=== PATIENT | male | born 1990 | race Caucasian/White ===

== ENCOUNTER 2023-01-05 16:19 | Emergency (ER) | payer MEDICARE, SELFPAY ==
[2023-01-05 16:30] VITALS: BP 118/78; PULSE 94; RESP 18; TEMP 36.6; O2SAT 95; BMI 21.6
--- NOTE | 2023-01-05 16:38 | ED.ABDPAIN1 ---
HPI - Abdominal Pain General Chief Complaint: Abdominal Pain Stated Complaint: ABDOMINAL PAIN Time Seen by Provider: 01/05/23 16:37 Source: patient Mode of arrival: Wheelchair Limitations: no limitations History of Present Illness HPI narrative: Patient presents to emergency department complaining of abdominal pain. Patient states pain is epigastric left upper quadrant and he has a lot of nausea. She is not able to keep anything down. He denies any chest pain, shortness of breath. He states he had a cough which is nonproductive. The vomiting is not posttussive. Patient states he has had issues like this before but he has not seen a programmer analyst consultant recently. Patient denies any diarrhea, constipation. He denies any hematemesis, melena, hematochezia. He denies any fall or trauma. Denies any hematuria, dysuria. Has not taking anything at home. He denies any fever, chills, sore throat.She states she's had pancreatitis in the past. He's also had an esophageal surgery when he was a child. Related Data Previous Rx's Medication Instructions Recorded sucralfate 1 gram tablet (Carafate) 1 g PO TID #30 tabs 01/05/23 Allergies Allergy/AdvReac Type Severity Reaction Status Date / Time Penicillins Allergy Intermediate Verified 01/05/23 16:33 Review of Systems ROS Status of ROS 10 or more systems reviewed and unremarkable except as noted in history and below [facility] Social History Smoking status: Light tobacco smoker Exam Narrative Exam Narrative: Nurses notes and vital signs reviewed and patient is not hypoxic. General: Nontoxic,Slim, Well-appearing and in no apparent distress. Skin: Warm, dry, no pallor noted. No Rash Head: Normocephalic, atraumatic. Neck: Supple, non-tender. Eye: Pupils are equal, round and EOMI. No scleral icterus. Ears, Nose, Mouth, and Throat: TM clear, no posterior oropharynx erythema or nasal mucosal hypertrophy, uvula is mid-line Oral mucosa is dry Cardiovascular: Regular Rate and Rhythm without murmur, gallop or rub. Respiratory: No accessory muscle use or respiratory distress. Lungs are clear to auscultation, no wheezing, rales or rhonchi Chest Wall: no tenderness Back: No midline thoracic or lumbar vertebral tenderness. No CVA tenderness Musculoskeletal: normal ROM, no calf or popliteal tenderness, no lower extremity edema/swelling GI: Abdomen is soft, non-distended. Normal bowel sounds. No masses appreciated. No tenderness to palpation. No rebound, guarding, or rigidity noted. Neurological: A&O x4. No cranial nerve dysfunction observed. No truncal ataxia. Moves all extremities. Sensation intact. Psychiatric: Cooperative and interactive. Normal mood and affect. Constitutional Vital Signs, click to edit/add: Last Vital Signs Temp 98.1 F 01/05/23 19:09 Pulse 73 01/05/23 19:09 Resp 16 01/05/23 19:09 BP 120/76 01/05/23 19:09 Pulse Ox 95 01/05/23 19:09 O2 Del Method Room Air 01/05/23 19:09 Course Vital Signs Vital signs: Vital Signs Temperature 97.8 F 01/05/23 16:30 Pulse Rate 94 H 01/05/23 16:30 Respiratory Rate 18 01/05/23 16:30 Blood Pressure 118/78 01/05/23 16:30 Pulse Oximetry 95 01/05/23 16:30 Oxygen Delivery Method Room Air 01/05/23 16:30 Temperature 98.1 F 01/05/23 19:09 Pulse Rate 73 01/05/23 19:09 Respiratory Rate 16 01/05/23 19:09 Blood Pressure 120/76 01/05/23 19:09 Pulse Oximetry 95 01/05/23 19:09 Oxygen Delivery Method Room Air 01/05/23 19:09 MDM - Abdominal Pain MDM Narrative Medical decision making narrative: Patient had an IV established labs and radiologic studies were done. Patient was given morphine 4 mg IV, Zofran 4 mg IV, 1 L normal saline all which helped his symptoms. THE results were discussed with patient. Patient was given sucralfate. Patient is advised he needs follow-up with programmer analyst consultant. At this time the patient is without objective evidence of an acute process requiring hospitalization or inpatient management. The patient has remained hemodynamically stable. No additional indication for emergent studies at this time. I answered all questions. Discussed discharge instructions including standard anticipatory guidance and what should prompt a return to the emergency department, including if they get worse are not getting better or develops any new or concerning symptoms. I've given them specific time frame in which to follow-up, and who to follow-up with. The patient demonstrates understanding. Patient is nontoxic and stable for discharge with outpatient follow-up. This note was created with the assistance of a speech recognition program. Although the intention is to generate documents that actually reflects the content of the visit, no guarantees can be provided that every mistake has been identified and corrected by editing. Differential Diagnosis Differential diagnosis: Likely abdominal pain, gastroenteritis, pancreatitis and small bowel obstruction Lab Data Labs: Lab Results 01/05/23 01/05/23 Range/Units 17:45 17:50 WBC 9.3 (4.0-11.0) 10^3/uL RBC 5.75 (4.70-6.10) 10^6/uL Hgb 17.1 (14.0-18.0) g/dL Hct 50.5 (42.0-54.0) % MCV 87.8 (80.0-94.0) fL MCH 29.7 (25.9-34.0) pg MCHC 33.9 (29.9-35.2) g/dL RDW 12.2 (11.0-15.0) % Plt Count 293 (150-450) 10^3/uL MPV 11.2 (9.5-13.5) fL Neut % (Auto) 71.7 (43.0-75.0) % Lymph % (Auto) 17.2 L (20.5-60.0) % Clinch % (Auto) 8.7 (1.7-12.0) % Eos % (Auto) 0.9 (0.9-7.0) % Baso % (Auto) 1.2 (0.2-2.0) % Neut # (Auto) 6.7 H (1.4-6.5) 10^3/uL Lymph # (Auto) 1.6 (1.2-3.8) 10^3/uL Clinch # (Auto) 0.8 (0.3-0.8) 10^3/uL Eos # (Auto) 0.1 (0.0-0.7) 10^3/uL Baso # (Auto) 0.1 (0.0-0.1) 10^3/uL Abs Immat Gran (auto) 0.03 (0.00-0.03) 10^3/uL Imm/Tot Granulo (auto) 0.3 (0.0-0.5) % Sodium 139 (136-145) mmol/L Potassium 3.6 (3.5-5.1) mmol/L Chloride 102 (98-107) mmol/L Carbon Dioxide 27.5 (21.0-32.0) mmol/L Anion Gap 13.1 BUN 10.0 (7.0-18.0) mg/dL Creatinine 0.82 (0.70-1.30) mg/dL Est GFR ( Amer) >60 (>=60) Est GFR (Non-Af Amer) >60 (>=60) BUN/Creatinine Ratio 12.2 Glucose 99 (74-106) mg/dL Lactate 0.8 (0.4-2.0) mmol/L Calcium 8.9 (8.5-10.1) mg/dL Total Bilirubin 0.6 (0.2-1.0) mg/dL AST 15 (15-37) U/L ALT 12 L (16-63) U/L Alkaline Phosphatase 111 (46-116) U/L Total Protein 7.7 (6.4-8.2) g/dL Albumin 4.3 (3.4-5.0) g/dL Globulin 3.4 g/dL Albumin/Globulin Ratio 1.3 Lipase 88.0 (73.0-393.0) U/L Urine Color Lt. yellow (YELLOW) Urine Clarity Clear (CLEAR) Urine pH 8.5 (5.0-9.0) Ur Specific [place] 1.020 (1.005-1.025) Urine Protein Negative (NEG/TRACE) mg/dL Urine Glucose (UA) Negative (NEGATIVE) mg/dL Urine Ketones Negative (NEGATIVE) mg/dL Urine Occult Blood Negative (NEGATIVE) Urine Nitrite Negative (NEGATIVE) Urine Bilirubin Negative (NEGATIVE) Urine Urobilinogen 0.2 (0.2-1.0) EU/dL Ur Leukocyte Esterase Negative (NEGATIVE) Discharge Plan Discharge Chief Complaint: Abdominal Pain Clinical Impression: Abdominal pain Patient Disposition: Home, Self-Care Time of Disposition Decision: 18:36 Condition: Good Mode of Transportation: Private Vehicle Prescriptions / Home Meds: New sucralfate [Carafate] 1 gram tablet 1 g PO TID Qty: 30 0RF Instructions: Abdominal Pain (ED) Stand Alone Forms: Portal Instructions Referrals: DI GUTHRIE [Primary Care Provider] - 1 week Discharge Date/Time: 01/05/23 19:12
--- NOTE | 2023-01-05 17:12 | XR_ITS ---
[facility] [place] [id number] Patient Name: FRANCIS GALVEZ MRN: [id number] date: 1990 Sex: M Assigned Patient Location: ER Current Patient Location: ER Accession/Order Number: [id number] Exam Date: 01/05/2023 17:28 Report Date: 01/05/2023 18:01 At the request of: CALI HASSAN Procedure: XR acute abdomen series EXAM: XR acute abdomen series HISTORY: Abdominal pain and nausea COMPARISON: Chest x-ray 02/28/2022 TECHNIQUE: AP chest and 2 views of the abdomen. FINDINGS: IMPRESSION: Enlarged small left pleural effusion. Again demonstrated is the mass emanating from the right hilum. Chronic changes throughout the lung parenchyma. Right lower hemithorax calcified pulmonary granuloma the heart is not enlarged. No pneumothorax. The bowel gas pattern is nonobstructed. No free intraperitoneal air or visualized intra-abdominal calcification. Stool burden is unremarkable. Stool within the rectum. No gross acute osseous abnormality. Electronically authenticated by: NEMO CADENA Date: 01/05/2023 18:01
[2023-01-05 18:05] LABS: Basophils Absolute Auto 0.1 10^3/uL (0.0-0.1); Basophils Percent Auto 1.2 % (0.2-2.0); Eosinophils Absolute Auto 0.1 10^3/uL (0.0-0.7); Eosinophils Percent Auto 0.9 % (0.9-7.0); Hematocrit 50.5 % (42.0-54.0); Hemoglobin 17.1 g/dL (14.0-18.0); Immature Granulocytes Abs Auto 0.03 10^3/uL (0.00-0.03); Immature Granulocytes Pct Auto 0.3 % (0.0-0.5); Lymphocytes Absolute Auto 1.6 10^3/uL (1.2-3.8); Lymphocytes Percent Auto 17.2 % (20.5-60.0); Mean Corpuscular HGB Conc 33.9 g/dL (29.9-35.2); Mean Corpuscular Hemoglobin 29.7 pg (25.9-34.0); Mean Corpuscular Volume 87.8 fL (80.0-94.0); Mean Platelet Volume 11.2 fL (9.5-13.5); Monocytes Absolute Auto 0.8 10^3/uL (0.3-0.8); Monocytes Percent Auto 8.7 % (1.7-12.0); Neutrophils Absolute Auto 6.7 10^3/uL (1.4-6.5); Neutrophils Percent Auto 71.7 % (43.0-75.0); Platelet Count 293 10^3/uL (150-450); Red Blood Count 5.75 10^6/uL (4.70-6.10); Red Cell Distribution Width 12.2 % (11.0-15.0); White Blood Count 9.3 10^3/uL (4.0-11.0)
[2023-01-05 18:11] LABS: Bilirubin Urine NEGATIVE (NEGATIVE); Blood Urine NEGATIVE (NEGATIVE); Clarity Urine CLEAR (CLEAR); Color Urine LT. YELLOW (YELLOW); Glucose Urine UA NEGATIVE (NEGATIVE); Ketones Urine NEGATIVE (NEGATIVE); Leukocyte Esterase Urine NEGATIVE (NEGATIVE); Nitrite Urine NEGATIVE (NEGATIVE); Protein Urine NEGATIVE (NEG/TRACE); Urobilinogen Urine 0.2 EU/dL (0.2-1.0); pH Urine 8.5 (5.0-9.0)
[2023-01-05 18:12] LABS: Urine Microscopic Indicated NO
[2023-01-05] MEDS: 0.9 % SODIUM CHLORIDE 1,000 ML 999 ML IV (18:12)
[2023-01-05] MEDS: MORPHINE SULFATE 2 MG/ML SYRINGE 4 MG IV (18:13)
[2023-01-05] MEDS: ONDANSETRON PF 4 MG/2 ML VIAL IV (18:13)
[2023-01-05 18:15] LABS: Alanine Aminotransferase 12 U/L (16-63); Albumin Globulin Ratio 1.3; Albumin Level 4.3 g/dL (3.4-5.0); Alkaline Phosphatase 111 U/L (46-116); Anion Gap 13.1; Aspartate Amino Transferase 15 U/L (15-37); BUN Creatinine Ratio 12.2; Bilirubin Total 0.6 mg/dL (0.2-1.0); Calcium 8.9 mg/dL (8.5-10.1); Carbon Dioxide 27.5 mmol/L (21.0-32.0); Chloride 102 mmol/L (98-107); Estimated GFR (African America >60 (>=60); Estimated GFR (Non-African Ame >60 (>=60); Globulin 3.4 g/dL; Glucose 99 mg/dL (74-106); Potassium 3.6 mmol/L (3.5-5.1); Sodium 139 mmol/L (136-145); Total Protein 7.7 g/dL (6.4-8.2)
[2023-01-05 18:18] LABS: Lactate/Lactic Acid 0.8 mmol/L (0.4-2.0)
[2023-01-05] MEDS: SUCRALFATE 1 GM TABLET PO (18:29)
[2023-01-05 19:00] VITALS: BP 120/76; PULSE 73; RESP 14; O2SAT 95
[2023-01-05 19:09] VITALS: BP 120/76; PULSE 73; RESP 16; TEMP 36.7; O2SAT 95
== END 2023-01-05 19:12 | disposition home or self-care (01) ==
PROVIDERS: Emergency Provider Emergency Medicine; PCP Nurse Practitioner
DX: R10.9 Unspecified abdominal pain (principal); F17.210 Nicotine dependence, cigarettes, uncomplicated
CPT/HCPCS: 36415; 74022; 80053; 81003; 83605; 83690; 85025; 96374; 96375; 99284

== ENCOUNTER 2023-01-12 10:32 | Observation (INO) | payer MEDICARE, SELFPAY ==
[2023-01-12] VITALS (10 sets, daily range): BP systolic 99–106; BP diastolic 58–61; PULSE 64–94; RESP 18–20; TEMP 36.5–37.3; O2SAT 88–99; BMI 23.0; BMI 21.4
--- NOTE | 2023-01-12 10:53 | ED.ABDPAIN1 ---
HPI - Abdominal Pain General Chief Complaint: Abdominal Pain Stated Complaint: BODY ACHES AND VOMITING HOT Time Seen by Provider: 01/12/23 10:51 Source: patient Mode of arrival: walk-in History of Present Illness HPI narrative: this patient's here for worsening abdominal pain. He was here approximately two weeks ago for similar condition. He is under the care of a stroke belt sander operator but they can't see him until February. 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 He gets occasional upper endoscopies. He has not been told that he had ulcers or gastrointestinal bleeding. His bowel movements are not bloody or black. He is on Protonix on a daily basis and has not run out of his meds. He is not running a fever. He's not had a history of pancreatitis. He's not had any more recent surgeries cents he was an . He states he does not use any alcohol and is not had narcotic dependence. No previous history of biliary disease. Related Data Allergies Allergy/AdvReac Type Severity Reaction Status Date / Time Penicillins Allergy Intermediate Verified 01/12/23 10:42 [facility] Social History Smoking status: Light tobacco smoker Exam Narrative Exam Narrative: patient seen shortly after arrival. He does appear to be uncomfortable lying on his side. He is afebrile. Pulse is ninety-four blood pressure 103/58. HEENT shows no focus of infection. There is no conjunctivitis no obvious trauma or injury. Chest shows no retractions no grunting no labored respiratory labored respirations are not noted. Abdomen shows increased tympany to percussion in the left mid abdomen. There is mild tenderness to palpation but no rebound or rigidity. He has had his appendix previously removed. No hepatomegaly is appreciated. Extremities are unremarkable. Neurological cognition and mentation are normal. Appears to be uncomfortable Constitutional Vital Signs, click to edit/add: Last Vital Signs Temp 99.2 F 01/12/23 10:36 Pulse 94 H 01/12/23 10:36 Resp 20 01/12/23 10:36 BP 103/58 01/12/23 10:36 Pulse Ox 94 L 01/12/23 10:46 O2 Del Method Room Air 01/12/23 10:46 Course Vital Signs Vital signs: Vital Signs Temperature 99.2 F 01/12/23 10:36 Pulse Rate 94 H 01/12/23 10:36 Respiratory Rate 20 01/12/23 10:36 Blood Pressure 103/58 01/12/23 10:36 Pulse Oximetry 94 L 01/12/23 10:36 Oxygen Delivery Method Room Air 01/12/23 10:36 Temperature 99.2 F 01/12/23 10:36 Pulse Rate 94 H 01/12/23 10:36 Respiratory Rate 20 01/12/23 10:36 Blood Pressure 103/58 01/12/23 10:36 Pulse Oximetry 94 L 01/12/23 10:46 Oxygen Delivery Method Room Air 01/12/23 10:46 MDM - Abdominal Pain MDM Narrative Medical decision making narrative: this patient's laboratory testing shows substantial and markedly increase in his white blood cell count with left shift from his evaluation here one week ago. However CT scan with IV contrast does not show any acute emergent problem. Patient's lipase is also normal. Potassium slightly low at 3.4. He requested a 2nd dose of pain medication. Do not have evidence of a surgical problem but with this patient's past surgical history and his white blood cell count elevation I thought it would be prudent to observe him and consider further diagnostic testing's. I spoke with our hospitalist who agreed with that assessment. The laboratory testing and CT were all discussed in detail Lab Data Labs: Lab Results 01/12/23 Range/Units 11:01 WBC 17.8 H (4.0-11.0) 10^3/uL RBC 5.45 (4.70-6.10) 10^6/uL Hgb 16.3 (14.0-18.0) g/dL Hct 47.3 (42.0-54.0) % MCV 86.8 (80.0-94.0) fL MCH 29.9 (25.9-34.0) pg MCHC 34.5 (29.9-35.2) g/dL RDW 12.2 (11.0-15.0) % Plt Count 293 (150-450) 10^3/uL MPV 11.5 (9.5-13.5) fL Neut % (Auto) 82.0 H (43.0-75.0) % Lymph % (Auto) 7.6 L (20.5-60.0) % [place] % (Auto) 8.9 (1.7-12.0) % Eos % (Auto) 0.5 L (0.9-7.0) % Baso % (Auto) 0.6 (0.2-2.0) % Neut # (Auto) 14.6 H (1.4-6.5) 10^3/uL Lymph # (Auto) 1.4 (1.2-3.8) 10^3/uL [place] # (Auto) 1.6 H (0.3-0.8) 10^3/uL Eos # (Auto) 0.1 (0.0-0.7) 10^3/uL Baso # (Auto) 0.1 (0.0-0.1) 10^3/uL Abs Immat Gran (auto) 0.08 H (0.00-0.03) 10^3/uL Imm/Tot Granulo (auto) 0.4 (0.0-0.5) % Sodium 132 L (136-145) mmol/L Potassium 3.4 L (3.5-5.1) mmol/L Chloride 98 (98-107) mmol/L Carbon Dioxide 28.6 (21.0-32.0) mmol/L Anion Gap 8.8 BUN 8.0 (7.0-18.0) mg/dL Creatinine 0.91 (0.70-1.30) mg/dL Est GFR ( Amer) >60 (>=60) Est GFR (Non-Af Amer) >60 (>=60) BUN/Creatinine Ratio 8.8 Glucose 113 H (74-106) mg/dL Calcium 8.7 (8.5-10.1) mg/dL Total Bilirubin 0.8 (0.2-1.0) mg/dL AST 15 (15-37) U/L ALT 17 (16-63) U/L Alkaline Phosphatase 119 H (46-116) U/L Total Protein 7.8 (6.4-8.2) g/dL Albumin 4.0 (3.4-5.0) g/dL Globulin 3.8 g/dL Albumin/Globulin Ratio 1.1 Lipase 48.0 L (73.0-393.0) U/L Discharge Plan Discharge Chief Complaint: Abdominal Pain Clinical Impression: Abdominal pain, acute Patient Disposition: Admitted as Observation Time of Disposition Decision: 13:21 Condition: Fair Referrals: DI GUTHRIE [Primary Care Provider] - 1 week
[2023-01-12] MEDS: 0.9 % SODIUM CHLORIDE 1,000 ML 999 ML IV (11:06)
[2023-01-12] MEDS: HYDROMORPHONE HCL 1 MG/ML CARTRIDGE IVP ×2 (11:07→13:22)
[2023-01-12] MEDS: ONDANSETRON PF 4 MG/2 ML VIAL IV (11:07)
[2023-01-12 11:38] LABS: Basophils Absolute Auto 0.1 10^3/uL (0.0-0.1); Basophils Percent Auto 0.6 % (0.2-2.0); Eosinophils Absolute Auto 0.1 10^3/uL (0.0-0.7); Eosinophils Percent Auto 0.5 % (0.9-7.0); Hematocrit 47.3 % (42.0-54.0); Hemoglobin 16.3 g/dL (14.0-18.0); Immature Granulocytes Abs Auto 0.08 10^3/uL (0.00-0.03); Immature Granulocytes Pct Auto 0.4 % (0.0-0.5); Lymphocytes Absolute Auto 1.4 10^3/uL (1.2-3.8); Lymphocytes Percent Auto 7.6 % (20.5-60.0); Mean Corpuscular HGB Conc 34.5 g/dL (29.9-35.2); Mean Corpuscular Hemoglobin 29.9 pg (25.9-34.0); Mean Corpuscular Volume 86.8 fL (80.0-94.0); Mean Platelet Volume 11.5 fL (9.5-13.5); Monocytes Absolute Auto 1.6 10^3/uL (0.3-0.8); Monocytes Percent Auto 8.9 % (1.7-12.0); Neutrophils Absolute Auto 14.6 10^3/uL (1.4-6.5); Platelet Count 293 10^3/uL (150-450); Red Blood Count 5.45 10^6/uL (4.70-6.10); Red Cell Distribution Width 12.2 % (11.0-15.0); White Blood Count 17.8 10^3/uL (4.0-11.0)
[2023-01-12 11:54] LABS: Alanine Aminotransferase 17 U/L (16-63); Albumin Globulin Ratio 1.1; Alkaline Phosphatase 119 U/L (46-116); Anion Gap 8.8; Aspartate Amino Transferase 15 U/L (15-37); BUN Creatinine Ratio 8.8; Bilirubin Total 0.8 mg/dL (0.2-1.0); Calcium 8.7 mg/dL (8.5-10.1); Carbon Dioxide 28.6 mmol/L (21.0-32.0); Chloride 98 mmol/L (98-107); Estimated GFR (African America >60 (>=60); Estimated GFR (Non-African Ame >60 (>=60); Globulin 3.8 g/dL; Glucose 113 mg/dL (74-106); Potassium 3.4 mmol/L (3.5-5.1); Sodium 132 mmol/L (136-145); Total Protein 7.8 g/dL (6.4-8.2)
--- NOTE | 2023-01-12 12:05 | CT_ITS ---
The [address] [address] Patient Name: FRANCIS GALVEZ MRN: [id number] date: 1990 Sex: M Assigned Patient Location: ER Current Patient Location: ER Accession/Order Number: [id number] Exam Date: 01/12/2023 11:53 Report Date: 01/12/2023 12:45 At the request of: RUSTY MARSH Procedure: CT abdomen pelvis w con EXAM: CT abdomen pelvis w con HISTORY: pain abdominal pain COMPARISON: CT abdomen and pelvis 11/25/2018. TECHNIQUE: Following intravenous administration of 100 mL of Omnipaque 350, axial soft tissue windows of the abdomen and pelvis were performed with coronal and sagittal reformats. CT dose reduction technique was used including Automated Exposure Control. Findings: Redemonstrated is bilateral lower lobe bronchiectasis. There is partial opacification of the right lower lobe segmental and subsegmental airways likely relating to mucous. In the left lower lobe there is scarring adjacent to the bronchiectasis. ABDOMEN: The liver, gallbladder, spleen, pancreas, adrenal glands and kidneys are unremarkable. The bilateral ureters are nondilated. Evaluation of the bowel is limited given the absence of oral contrast. No bowel obstruction. The appendix is surgically absent. The aorta is normal caliber. No enlarged abdominal lymph nodes or free abdominal fluid. Pelvis: Unremarkable bladder. No enlarged pelvic lymph nodes or free pelvic fluid. No aggressive sclerotic or lytic osseous lesions. CT/CT abdomen pelvis w con IMPRESSION: 1. No acute abdominal or pelvic abnormality. 2. Other nonemergent findings, as described above. Electronically authenticated by: JOSHUA AARON Date: 01/12/2023 12:45
[2023-01-12] MEDS: MORPHINE SULFATE 2 MG/ML SYRINGE IV ×2 (16:28→20:43)
[2023-01-12] MEDS: PANTOPRAZOLE SODIUM 40 MG VIAL IV (16:28)
[2023-01-12] MEDS: METOCLOPRAMIDE HCL 10 MG TABLET PO ×2 (16:28→21:15)
[2023-01-12] MEDS: ALBUTEROL SULFATE 2.5 MG/3 ML VIAL NEB IH ×2 (19:12→22:20)
[2023-01-13] VITALS (7 sets, daily range): BP systolic 97; BP diastolic 56; PULSE 71–92; RESP 16–20; TEMP 36.8; O2SAT 92–98
[2023-01-13] MEDS: MORPHINE SULFATE 2 MG/ML SYRINGE IV ×2 (00:59→08:52)
[2023-01-13] MEDS: ALBUTEROL SULFATE 2.5 MG/3 ML VIAL NEB IH ×3 (03:48→11:21)
[2023-01-13 05:03] LABS: Basophils Absolute Auto 0.1 10^3/uL (0.0-0.1); Basophils Percent Auto 1.1 % (0.2-2.0); Eosinophils Absolute Auto 0.2 10^3/uL (0.0-0.7); Eosinophils Percent Auto 2.2 % (0.9-7.0); Hematocrit 40.2 % (42.0-54.0); Hemoglobin 13.6 g/dL (14.0-18.0); Immature Granulocytes Abs Auto 0.03 10^3/uL (0.00-0.03); Immature Granulocytes Pct Auto 0.4 % (0.0-0.5); Lymphocytes Absolute Auto 1.9 10^3/uL (1.2-3.8); Lymphocytes Percent Auto 24.7 % (20.5-60.0); Mean Corpuscular HGB Conc 33.8 g/dL (29.9-35.2); Mean Corpuscular Hemoglobin 30.2 pg (25.9-34.0); Mean Corpuscular Volume 89.3 fL (80.0-94.0); Mean Platelet Volume 11.7 fL (9.5-13.5); Monocytes Absolute Auto 0.8 10^3/uL (0.3-0.8); Monocytes Percent Auto 9.9 % (1.7-12.0); Neutrophils Absolute Auto 4.7 10^3/uL (1.4-6.5); Neutrophils Percent Auto 61.7 % (43.0-75.0); Platelet Count 225 10^3/uL (150-450); Red Cell Distribution Width 12.1 % (11.0-15.0); White Blood Count 7.6 10^3/uL (4.0-11.0)
[2023-01-13 05:16] LABS: Alanine Aminotransferase 14 U/L (16-63); Albumin Globulin Ratio 1.1; Albumin Level 3.3 g/dL (3.4-5.0); Alkaline Phosphatase 95 U/L (46-116); Anion Gap 9.2; Aspartate Amino Transferase 10 U/L (15-37); Bilirubin Total 0.4 mg/dL (0.2-1.0); Calcium 8.1 mg/dL (8.5-10.1); Carbon Dioxide 30.9 mmol/L (21.0-32.0); Chloride 100 mmol/L (98-107); Estimated GFR (African America >60 (>=60); Estimated GFR (Non-African Ame >60 (>=60); Globulin 3.1 g/dL; Glucose 132 mg/dL (74-106); Potassium 3.1 mmol/L (3.5-5.1); Sodium 137 mmol/L (136-145); Total Protein 6.4 g/dL (6.4-8.2)
[2023-01-13] MEDS: ACETAMINOPHEN 325 MG TABLET 650 MG PO (07:55)
[2023-01-13] MEDS: METOCLOPRAMIDE HCL 10 MG TABLET PO ×2 (07:56→11:13)
--- NOTE | 2023-01-13 08:16 | PC.NURSE ---
On SPO2 monitor, 91%.
[2023-01-13] MEDS: PANTOPRAZOLE SODIUM 40 MG VIAL IV (08:52)
--- NOTE | 2023-01-13 15:37 | P.HP_ITS ---
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 No association with food. He had an ED visit for similar complaints and was discharged after w/u did not reveal anything significant. Last night, his w/u included CT abd/pelvis that once again did not reveal any sig intra abdominal pathology but this time he was noted to have leukocytosis. Patient was admitted for obse rvation for pain control, clinical monitoring. His leukyctosis resolved. He tolerated PO diet in the morning. He continues to have Left sided pain but it has eased off some. He told me he was following GI and was told he had sig scar formation from prior surgery and needed gastroesophageal dilatation via endoscopy as he sometimes experiences dysphagia too but he did not follow up as recommended. Admission Diagnosis Unspecified abdominal pain Nausea/vomiting Leukocytosis Discharge diagnosis as above Discharge status stable Review of Systems ROS Status of ROS 10 or more systems reviewed and unremarkable except as noted in history and below PFSH PFS Medical History Surgical History Family History Mother Family history of diabetes mellitus Family history of hypertension Grandmother Family history of diabetes mellitus Grandfather Family history of myocardial infarction Social History Within the past year, how often did you have a drink containing alcohol: 2-4 times a month Within the past year, how many standard drinks containing alcohol did you have on a typical day: 1 or 2 Within the past year, how often did you have six or more drinks on one occasion: weekly Total score: 3 Score interpretation: A score of 4 or more indicates drinking is likely to affect patient's safety. 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 Known occupational exposures/hazards: No Highest level of school completed/degree received: some college, no degree Are you now , , , , never or living with a partner: In a typical week, how many times do you talk on the telephone with family, friends, or neighbors: 3 or more times per week How often do you get together with friends or relatives: once per week How often do you attend mu-ism or restorationist services: never Do you belong to any clubs or organizations such as mu-ism groups unions, [employer] or athletic groups, or school groups: no Total score: 1 Score interpretation: A score of less than or equal to 1 indicates the most socially isolated. Little interest or pleasure in doing things: not at all Feeling down, depressed, or hopeless: not at all Feel stressed/tense/nervous/anxious/difficulty sleeping: not at all Do you think of yourself as: straight/heterosexual Gender Identity: male Meds Home Medications and Allergies Home Medications Medication Instructions Recorded Confirmed Type albuterol sulfate 2.5 mg/3 mL 2.5 mg inhalation QID 01/12/23 01/12/23 History (0.083 %) solution for nebulization albuterol sulfate 90 mcg/actuation 2 puff inhalation Q6H PRN 01/12/23 01/12/23 History aerosol inhaler shortness of breath or wheezing pantoprazole 20 mg tablet,delayed 40 mg PO BID 01/12/23 01/12/23 History release (Protonix) Allergies Allergy/AdvReac Type Severity Reaction Status Date / Time Penicillins Allergy Intermediate Verified 01/12/23 10:42 Exam Constitutional Vital Signs, click to edit/add: Last Vital Signs Temp 98.3 F 01/13/23 06:00 Pulse 88 01/13/23 11:21 Resp 20 01/13/23 06:00 BP 97/56 01/13/23 06:00 Pulse Ox 94 L 01/13/23 11:37 O2 Del Method Nasal Cannula 01/13/23 11:37 O2 Flow Rate 3 01/13/23 11:37 Documenting provider has reviewed patient's vital signs: yes Common normals: no apparent distress and oriented x3 General appearance: cooperative HENMT Common normals: normocephalic and head/scalp atraumatic Head and scalp: normocephalic and atraumatic Eye Common normals: conjunctivae normal and no scleral icterus Conjunctiva: conjunctiva(e) normal Respiratory Common normals: normal respiratory effort and clear to auscultation bilaterally Effort & inspection: able to speak in complete sentences Auscultation: clear to auscultation bilaterally Cardio Common normals: regular rate, S1 normal heart sound and S2 normal heart sound Rate: regular rate Heart sounds: S1 normal and S2 normal GI Common normals: no hepatosplenomegaly Inspection: scar (vertical scar towards left side of abdomen) Palpation: soft, tender Details: LLQ and LUQ and no hepatosplenomegaly Extremity Common normals: no clubbing, cyanosis or edema Neuro Common normals: oriented x3, moves all extremities and no focal motor deficits Psych Common normals: mental status grossly normal, denies hallucinations, denies homicidal ideation and denies suicidal ideation Results Labs Labs: Short CBC 01/13/23 Range/Units 04:12 WBC 7.6 (4.0-11.0) 10^3/uL Hgb 13.6 L (14.0-18.0) g/dL Hct 40.2 L (42.0-54.0) % Plt Count 225 (150-450) 10^3/uL BMP 01/13/23 04:12 Sodium 137 Potassium 3.1 L Chloride 100 Carbon Dioxide 30.9 BUN 8.0 Creatinine 0.80 Glucose 132 H Calcium 8.1 L Liver Function 01/13/23 Range/Units 04:12 Total Bilirubin 0.4 (0.2-1.0) mg/dL AST 10 L (15-37) U/L ALT 14 L (16-63) U/L Alkaline Phosphatase 95 (46-116) U/L Albumin 3.3 L (3.4-5.0) g/dL Assessment and Plan Assessment and Plan (1) Abdominal pain: (2) Leukocytosis: Plan Left sided abdominal pain of uncertain etiology. Suspect dysmotility from previous surgery/scar formation. Leukocytosis likely reactive and resolved. No acute intracranial pathology on CT. Pain,nausea improved. F/u with GI and PCP. Educated on worrisome signs and symptoms that should prompt him to seek care.
--- NOTE | 2023-01-17 13:55 | CM.DCFOLLOWU ---
Person spoke with: Luis How are you feeling? Still having abdominal pain How is your pain? It is better but still having some pain. I'm scheduled to see GI doctor next month Did you understand your discharge instructions? Yes Do you have any questions about your discharge instructions? No Were you given any prescriptions at discharge? Yes Were you able to get your prescriptions filled? Yes Do you understand how to take your medications as ordered? Yes Do you have any questions about your follow up appointment and do you plan to keep your follow up appointment? Appt scheduled and plan on going Is there anything else that you would like to discuss? Questions/Comments/Concerns/Other:
== END 2023-01-13 13:19 | disposition home or self-care (01) ==
LOC: ER 13:21 → MS 13:59
PROVIDERS: Admitting Provider Internal Medicine; Emergency Provider Emergency Medicine Emergency Medical Services; PCP Nurse Practitioner; Visit Provider Internal Medicine
DX: R10.9 Unspecified abdominal pain (principal); R11.2 Nausea with vomiting, unspecified; D72.829 Elevated white blood cell count, unspecified; F17.220 Nicotine dependence, chewing tobacco, uncomplicated
CPT/HCPCS: 36415; 74177; 80053; 83690; 85025; 94640; 94761; 96374; 96375; 96376; 99285; G0378; J1170; Q9967

== ENCOUNTER 2023-02-06 22:08 | Emergency (ER) | payer MEDICARE, MEDICAID, SELFPAY ==
[2023-02-06 22:16] VITALS: BP 124/74; PULSE 66; RESP 18; TEMP 36.8; O2SAT 97; BMI 21.8
--- NOTE | 2023-02-06 22:28 | XR_ITS ---
[address] [address] Patient Name: FRANCIS GALVEZ MRN: [id number] date: 1990 Sex: M Assigned Patient Location: ER Current Patient Location: ER Accession/Order Number: [id number] Exam Date: 02/06/2023 22:34 Report Date: 02/06/2023 22:53 At the request of: VIKTORIYA GOLDSMITH Procedure: XR chest 1V EXAMINATION: XR chest 1V, , 02/06/2023 10:34 PM EDT INDICATION: shortness of breath HISTORY: Ordering Provider Reason for Exam: shortness of breath Technologist Note: Additional: COMPARISON: Chest x-ray CT angiogram of the chest dated 02/28/2022. TECHNIQUE: Chest x-ray: One view. FINDINGS: Abnormal mass/consolidation is seen in the perihilar and infrahilar right lung, which appears increased in size since prior examination. A follow-up chest CT may be of value for further evaluation. Additionally, increased markings are seen in the retrocardiac left lower lobe, which may represent additional mass versus consolidation. Mild peribronchial thickening is seen in the bilateral lower lobes, suggestive of bronchitic changes. A tiny left pleural effusion may be seen. No obvious pneumothorax is seen. Heart is normal in size. Bony thorax is unremarkable. XR/XR chest 1V IMPRESSION: Abnormal mass/consolidation is seen in the perihilar and infrahilar right lung, which appears increased in size since prior examination. A follow-up chest CT may be of value for further evaluation. Additionally, increased markings are seen in the retrocardiac left lower lobe, which may represent additional mass versus consolidation. Mild peribronchial thickening is seen in the bilateral lower lobes, suggestive of bronchitic changes. A tiny left pleural effusion may be seen. Electronically authenticated by: MARELY MENDOSA Date: 02/06/2023 22:53
[2023-02-06 22:33] LABS: Adenovirus NOT DETECTED (NOT DETECTE); Bordetella parapertussis NOT DETECTED (NOT DETECTE); Coronavirus 229E NOT DETECTED (NOT DETECTE); Coronavirus HKU1 NOT DETECTED (NOT DETECTE); Coronavirus NL63 NOT DETECTED (NOT DETECTE); Coronavirus OC43 NOT DETECTED (NOT DETECTE); Human Metapneumovirus NOT DETECTED (NOT DETECTE); Influenza A NOT DETECTED (NOT DETECTE); Influenza B NOT DETECTED (NOT DETECTE); Mycoplasma pneumoniae NOT DETECTED (NOT DETECTE); Parainfluenza Virus 1 NOT DETECTED (NOT DETECTE); Parainfluenza Virus 2 NOT DETECTED (NOT DETECTE); Parainfluenza Virus 3 NOT DETECTED (NOT DETECTE); Parainfluenza Virus 4 NOT DETECTED (NOT DETECTE); Respiratory Syncytial Virus NOT DETECTED (NOT DETECTE); SARS-CoV-2 NOT DETECTED (NOT DETECTE)
--- NOTE | 2023-02-06 22:35 | ED.URI1 ---
HPI - URI/Sore Throat General Chief Complaint: Upper Respiratory Infection Stated Complaint: shortness of breath Time Seen by Provider: 02/06/23 22:31 Source: patient History of Present Illness HPI Narrative: past history of pneumonia. exposed to COVID 19. Ill for 2 days. He does smoke marijuana and he also vapes. No fever or nausea. Related Data Home Medications Medication Instructions Recorded Confirmed albuterol sulfate 2.5 mg/3 mL 2.5 mg inhalation QID 01/12/23 02/06/23 (0.083 %) solution for nebulization albuterol sulfate 90 mcg/actuation 2 puff inhalation Q6H PRN 01/12/23 02/06/23 aerosol inhaler shortness of breath or wheezing pantoprazole 20 mg tablet,delayed 40 mg PO BID 01/12/23 02/06/23 release (Protonix) Allergies Allergy/AdvReac Type Severity Reaction Status Date / Time Penicillins Allergy Intermediate Verified 02/06/23 22:23 Review of Systems ROS Status of ROS 10 or more systems reviewed and unremarkable except as noted in history and below [facility] Medical History Surgical History Family History Mother Family history of diabetes mellitus Family history of hypertension Grandmother Family history of diabetes mellitus Grandfather Family history of myocardial infarction Social History Within the past year, how often did you have a drink containing alcohol: 2-4 times a month Within the past year, how many standard drinks containing alcohol did you have on a typical day: 1 or 2 Within the past year, how often did you have six or more drinks on one occasion: weekly Total score: 3 Score interpretation: A score of 4 or more indicates drinking is likely to affect patient's safety. 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 Known occupational exposures/hazards: No Highest level of school completed/degree received: some college, no degree Are you now , , , , never or living with a partner: In a typical week, how many times do you talk on the telephone with family, friends, or neighbors: 3 or more times per week How often do you get together with friends or relatives: once per week How often do you attend episcopalian or nondenominational services: never Do you belong to any clubs or organizations such as episcopalian groups unions, fraternal or athletic groups, or school groups: no Total score: 1 Score interpretation: A score of less than or equal to 1 indicates the most socially isolated. Little interest or pleasure in doing things: not at all Feeling down, depressed, or hopeless: not at all Feel stressed/tense/nervous/anxious/difficulty sleeping: not at all Do you think of yourself as: straight/heterosexual Gender Identity: male Exam Constitutional Vital Signs, click to edit/add: Last Vital Signs Temp 98.2 F 02/06/23 22:16 Pulse 88 02/06/23 23:05 Resp 18 02/06/23 23:05 BP 124/74 02/06/23 22:16 Pulse Ox 93 L 02/06/23 23:05 O2 Del Method Room Air 02/06/23 22:16 Common normals: no apparent distress, average body habitus, oriented x3, no limitations, healthy appearing, alert and well nourished Eye Common normals: EOMs intact bilaterally, conjunctivae normal and no scleral icterus Chest Other: coarse breath sounds right chest Cardio Common normals: regular rate, regular rhythm, S1 normal heart sound and S2 normal heart sound GI Common normals: Normal to inspection, nondistended, normoactive bowel sounds present, soft to palpation and non-tender Extremity Common normals: normal to inspection Neuro Common normals: oriented x3, CN's II-XII intact bilaterally, moves all extremities, no focal motor deficits and no sensory deficits noted Psych Appearance: grossly normal Course Vital Signs Vital signs: Vital Signs Temperature 98.2 F 02/06/23 22:16 Pulse Rate 66 02/06/23 22:16 Respiratory Rate 18 02/06/23 22:16 Blood Pressure 124/74 02/06/23 22:16 Pulse Oximetry 97 02/06/23 22:16 Oxygen Delivery Method Room Air 02/06/23 22:16 Temperature 98.2 F 02/06/23 22:16 Pulse Rate 88 02/06/23 23:05 Respiratory Rate 18 02/06/23 23:05 Blood Pressure 124/74 02/06/23 22:16 Pulse Oximetry 93 L 02/06/23 23:05 Oxygen Delivery Method Room Air 02/06/23 22:16 MDM - URI/Sore Throat MDM Narrative Medical decision making narrative: patient has past history of asthma. he also smokes marijuana and vapes. Exposed to COVID19. Presents with cough. cxray concerning for a mass in his chest. CT with findings of GERD, bibasilar bronchiectasis with areas of mucous plugging and chronic areas of consolidation, groundglass opacity. Findins in keeping with chronic infection or inflammatory condition. Patient also found to have enterovirus infection. Treated with prednisone. zithromax and alburterol in the department. Discharged home with prednisone and zpak and is to follow up with his doctor Lab Data Labs: Lab Results 02/06/23 02/06/23 Range/Units 22:25 22:44 WBC 8.1 (4.0-11.0) 10^3/uL RBC 5.15 (4.70-6.10) 10^6/uL Hgb 15.4 (14.0-18.0) g/dL Hct 45.8 (42.0-54.0) % MCV 88.9 (80.0-94.0) fL MCH 29.9 (25.9-34.0) pg MCHC 33.6 (29.9-35.2) g/dL RDW 12.4 (11.0-15.0) % Plt Count 235 (150-450) 10^3/uL MPV 11.5 (9.5-13.5) fL Neut % (Auto) 71.3 (43.0-75.0) % Lymph % (Auto) 13.6 L (20.5-60.0) % Dubois % (Auto) 10.3 (1.7-12.0) % Eos % (Auto) 3.0 (0.9-7.0) % Baso % (Auto) 1.4 (0.2-2.0) % Neut # (Auto) 5.8 (1.4-6.5) 10^3/uL Lymph # (Auto) 1.1 L (1.2-3.8) 10^3/uL Dubois # (Auto) 0.8 (0.3-0.8) 10^3/uL Eos # (Auto) 0.2 (0.0-0.7) 10^3/uL Baso # (Auto) 0.1 (0.0-0.1) 10^3/uL Abs Immat Gran (auto) 0.03 (0.00-0.03) 10^3/uL Imm/Tot Granulo (auto) 0.4 (0.0-0.5) % Sodium 139 (136-145) mmol/L Potassium 3.9 (3.5-5.1) mmol/L Chloride 103 (98-107) mmol/L Carbon Dioxide 30.9 (21.0-32.0) mmol/L Anion Gap 9.0 BUN 11.0 (7.0-18.0) mg/dL Creatinine 0.96 (0.70-1.30) mg/dL Est GFR ( Amer) >60 (>=60) Est GFR (Non-Af Amer) >60 (>=60) BUN/Creatinine Ratio 11.5 Glucose 94 (74-106) mg/dL Lactate 0.5 (0.4-2.0) mmol/L Calcium 8.7 (8.5-10.1) mg/dL Adenovirus (PCR) Not detected (NOT DETECTE) C. pneumoniae DNA (PCR) Not detected (NOT DETECTE) Coronavirus Type OC43 Not detected (NOT DETECTE) Coronavirus Type HKU1 Not detected (NOT DETECTE) Coronavirus Type 229E Not detected (NOT DETECTE) Coronavirus Type NL63 Not detected (NOT DETECTE) Human Metapneumovir PCR Not detected (NOT DETECTE) M. pneumoniae (PCR) Not detected (NOT DETECTE) Parainfluenza PCR Not detected (NOT DETECTE) Parainfluenza 2 (PCR) Not detected (NOT DETECTE) Parainfluenza 3 (PCR) Not detected (NOT DETECTE) Parainfluenza 4 (PCR) Not detected (NOT DETECTE) RSV (RT-PCR) Not detected (NOT DETECTE) Entero/Rhino (PCR) Detected A (NOT DETECTE) SARS-CoV-2 (PCR) Not detected (NOT DETECTE) Bordetella pertussis (PCR) Not detected (NOT DETECTE) B parapertussis DNA PCR Not detected (NOT DETECTE) Influenza Type A (PCR) Not detected (NOT DETECTE) Influenza Type B (PCR) Not detected (NOT DETECTE) Discharge Plan Discharge Chief Complaint: Upper Respiratory Infection Clinical Impression: Viral infection, Bronchitis Patient Disposition: Home, Self-Care Prescriptions / Home Meds: No Action albuterol sulfate 90 mcg/actuation HFA aerosol inhaler 2 puff INHALATION Q6H PRN (Reason: shortness of breath or wheezing) pantoprazole [Protonix] 20 mg tablet,delayed release (DR/EC) 40 mg PO BID albuterol sulfate 2.5 mg /3 mL (0.083 %) solution for nebulization 2.5 mg inhalation QID Instructions: Acute Bronchitis (ED), Viral Syndrome (ED) Additional Instructions: Prednisone and Zpack as directed Stand Alone Forms: Portal Instructions Referrals: Physician,Non-Staff, MD [Primary Care Provider] - 1 week
[2023-02-06 22:56] LABS: Basophils Absolute Auto 0.1 10^3/uL (0.0-0.1); Basophils Percent Auto 1.4 % (0.2-2.0); Eosinophils Absolute Auto 0.2 10^3/uL (0.0-0.7); Hematocrit 45.8 % (42.0-54.0); Hemoglobin 15.4 g/dL (14.0-18.0); Immature Granulocytes Abs Auto 0.03 10^3/uL (0.00-0.03); Immature Granulocytes Pct Auto 0.4 % (0.0-0.5); Lymphocytes Absolute Auto 1.1 10^3/uL (1.2-3.8); Lymphocytes Percent Auto 13.6 % (20.5-60.0); Mean Corpuscular HGB Conc 33.6 g/dL (29.9-35.2); Mean Corpuscular Hemoglobin 29.9 pg (25.9-34.0); Mean Corpuscular Volume 88.9 fL (80.0-94.0); Mean Platelet Volume 11.5 fL (9.5-13.5); Monocytes Absolute Auto 0.8 10^3/uL (0.3-0.8); Monocytes Percent Auto 10.3 % (1.7-12.0); Neutrophils Absolute Auto 5.8 10^3/uL (1.4-6.5); Neutrophils Percent Auto 71.3 % (43.0-75.0); Platelet Count 235 10^3/uL (150-450); Red Blood Count 5.15 10^6/uL (4.70-6.10); Red Cell Distribution Width 12.4 % (11.0-15.0); White Blood Count 8.1 10^3/uL (4.0-11.0)
[2023-02-06 23:04] LABS: BUN Creatinine Ratio 11.5; Calcium 8.7 mg/dL (8.5-10.1); Carbon Dioxide 30.9 mmol/L (21.0-32.0); Chloride 103 mmol/L (98-107); Estimated GFR (African America >60 (>=60); Estimated GFR (Non-African Ame >60 (>=60); Glucose 94 mg/dL (74-106); Potassium 3.9 mmol/L (3.5-5.1); Sodium 139 mmol/L (136-145)
[2023-02-06 23:05] VITALS: PULSE 88; RESP 18; O2SAT 93
[2023-02-06] MEDS: ALBUTEROL SULFATE 2.5 MG/3 ML VIAL NEB IH (23:05)
[2023-02-06 23:13] LABS: Lactate/Lactic Acid 0.5 mmol/L (0.4-2.0)
[2023-02-06 23:22] LABS: Human Rhinovirus/Enterovirus DETECTED (NOT DETECTE)
--- NOTE | 2023-02-06 23:26 | CT_ITS ---
The [address] [address] Patient Name: FRANCIS GALVEZ MRN: [id number] date: 1990 Sex: M Assigned Patient Location: ER Current Patient Location: ER Accession/Order Number: [id number] Exam Date: 02/06/2023 23:48 Report Date: 02/07/2023 00:21 At the request of: VIKTORIYA GOLDSMITH Procedure: CT chest w con EXAM: CT chest w con HISTORY: mass chest COMPARISON: CT chest examination dated 02/28/2022. CT chest examination dated 12/17/2020. TECHNIQUE: Axial CT images through the chest were obtained after the intravenous administration of 100 mL Omnipaque 300 contrast. Coronal and sagittal reformats were obtained. Dose reduction techniques were achieved by using automated exposure control and/or adjustment of mA and/or kV according to patient size and/or use of iterative reconstruction technique. FINDINGS: There is mild biapical pleural-parenchymal scarring. There is bilateral bronchiectasis, most pronounced in the lung bases with areas of mucous plugging. There is chronic consolidation in the right middle lobe and lingular base. There are chronic nodular areas of consolidation in the left lower lobe. There are scattered areas of groundglass opacity and nodular densities in the lungs. The central airways are patent. No pleural effusion or pneumothorax is seen. The cardiac chambers appear normal in size. The thoracic aorta and pulmonary arteries are normal in caliber. There is no mediastinal, hilar, or axillary lymphadenopathy by CT size criteria. The thyroid appears unremarkable. The esophagus is patulous. There is esophageal wall thickening of the mid to lower esophagus. Fluid is seen within the esophagus nearly to the thoracic inlet. Images through the upper abdomen reveal postsurgical changes at the gastroesophageal junction. No suspicious or aggressive bone lesions are seen. No acute fractures are seen. CT/CT chest w con IMPRESSION: 1. No abnormal soft tissue mass is seen. 2. The esophagus is patulous with esophageal wall thickening of the mid to lower esophagus and fluid in the esophagus nearly to the thoracic inlet, concerning for gastroesophageal reflux. This places the patient at risk for aspiration. 3. Bibasilar bronchiectasis with areas of mucous plugging and chronic areas of consolidation, groundglass opacity, and nodular densities. These findings are in keeping with a chronic infectious or inflammatory condition such as cystic fibrosis with an acute component not excluded. Electronically authenticated by: Karen PARRA Date: 02/07/2023 00:21
[2023-02-07] MEDS: AZITHROMYCIN 250 MG TABLET 500 MG PO (00:46)
[2023-02-07] MEDS: PREDNISONE 20 MG TABLET 40 MG PO (00:46)
== END 2023-02-07 00:59 | disposition home or self-care (01) ==
PROVIDERS: Emergency Provider Internal Medicine
DX: J20.8 Acute bronchitis due to other specified organisms (principal); K21.9 Gastro-esophageal reflux disease without esophagitis; F17.290 Nicotine dependence, other tobacco product, uncomplicated; Z79.899 Other long term (current) drug therapy; F17.210 Nicotine dependence, cigarettes, uncomplicated; Z87.01 Personal history of pneumonia (recurrent); F17.220 Nicotine dependence, chewing tobacco, uncomplicated; F12.90 Cannabis use, unspecified, uncomplicated; Z20.822 Contact with and (suspected) exposure to COVID-19
CPT/HCPCS: 0202U; 36415; 71045; 71260; 80048; 83605; 85025; 94640; 99285; Q9967

== ENCOUNTER 2023-03-10 07:30 | Observation (INO) | payer MEDICARE, MEDICAID, SELFPAY ==
[2023-03-10] VITALS (44 sets, daily range): BP systolic 100–131; BP diastolic 57–79; PULSE 63–132; RESP 20–34; TEMP 36.6–37.2; O2SAT 86–97; BMI 22.1; BMI 20.2
--- NOTE | 2023-03-10 07:46 | ED_ITS ---
HPI - SOB/Dyspnea General Chief Complaint: Shortness of Breath/Dyspnea Stated Complaint: SOB/DIFFICULTY BREATHING Time Seen by Provider: 03/10/23 07:46 Source: patient Mode of arrival: walk-in Limitations: no limitations History of Present Illness HPI Narrative: patient here for evaluation shortness of breath. He is a known asthmatic. He does not use tobacco products. Spent getting worse last several days. He's been using his inhaler but does not have nebulizers at home.he has not been I steroids or antibiotics recently. He is under the care of a solar energy engineer in [facility] and saw him a couple months ago. They discussed having a repeat upper bronchoscopy. He had a CAT scan here recently that showed/suggested some mucous plugging. He wears oxygen at nighttime. He states he's really struggled the last several days at work. He has a pulse oximeter at home that he uses occasionally and sometimes it's in the low 90s and upper 80s. 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 He's not had any bloody sputum. Related Data Home Medications Medication Instructions Recorded Confirmed albuterol sulfate 2.5 mg/3 mL 2.5 mg inhalation QID 01/12/23 02/06/23 (0.083 %) solution for nebulization albuterol sulfate 90 mcg/actuation 2 puff inhalation Q6H PRN 01/12/23 02/06/23 aerosol inhaler shortness of breath or wheezing pantoprazole 20 mg tablet,delayed 40 mg PO BID 01/12/23 02/06/23 release (Protonix) Allergies Allergy/AdvReac Type Severity Reaction Status Date / Time Penicillins Allergy Intermediate Verified 02/06/23 22:23 [facility] Medical History Surgical History Family History Mother Family history of diabetes mellitus Family history of hypertension Grandmother Family history of diabetes mellitus Grandfather Family history of myocardial infarction Social History Within the past year, how often did you have a drink containing alcohol: 2-4 times a month Within the past year, how many standard drinks containing alcohol did you have on a typical day: 1 or 2 Within the past year, how often did you have six or more drinks on one occasion: weekly Total score: 3 Score interpretation: A score of 4 or more indicates drinking is likely to affect patient's safety. 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 Known occupational exposures/hazards: No Highest level of school completed/degree received: some college, no degree Are you now , , , , never or living with a partner: In a typical week, how many times do you talk on the telephone with family, friends, or neighbors: 3 or more times per week How often do you get together with friends or relatives: once per week How often do you attend hoahaoism or rastafari services: never Do you belong to any clubs or organizations such as hoahaoism groups unions, fraternal or athletic groups, or school groups: no Total score: 1 Score interpretation: A score of less than or equal to 1 indicates the most socially isolated. Little interest or pleasure in doing things: not at all Feeling down, depressed, or hopeless: not at all Feel stressed/tense/nervous/anxious/difficulty sleeping: not at all Do you think of yourself as: straight/heterosexual Gender Identity: male Exam Narrative Exam Narrative: this patient is awake alert oriented , no apparent distress. Does appear tired and fatigued. His pulse is slightly tachycardic and respiratory rate is modestly in creased as well. Initial pulse oximeter is 88-90 percent on room air he has no stridor or drooling or posturing. He does have audible wheezing. He is seen shortly after arrival and nebulizer treatments and medications were ordered. Constitutional his skin is warm and dry is not jaundiced and has no clamminess or diaphoresis. I does not show any conjunctivitis. There is no rhinitis. His respirations as shows wheezing bilaterally with decreased aeration. There is no rales or rhonchi. Abdomen is thin, soft supple with no tenderness to palpation. Extremities have no peripheral edema evidence of phlebitis injury and deep vein thrombosis are not noted. Neurological oriented ?3 cranial nerves normal no change in mentation, he is a good historian. Constitutional Vital Signs, click to edit/add: Last Vital Signs Temp 98.1 F 03/10/23 07:36 Pulse 105 H 03/10/23 10:17 Resp 28 H 03/10/23 07:36 BP 105/67 03/10/23 10:30 Pulse Ox 92 L 03/10/23 10:29 O2 Del Method Room Air 03/10/23 07:45 O2 Flow Rate 2 03/10/23 10:17 Course Vital Signs Vital signs: Vital Signs Temperature 98.1 F 03/10/23 07:36 Pulse Rate 113 H 03/10/23 07:36 Respiratory Rate 28 H 03/10/23 07:36 Blood Pressure 125/73 03/10/23 07:36 Pulse Oximetry 86 L 03/10/23 07:36 Oxygen Delivery Method Room Air 03/10/23 07:36 Temperature 98.1 F 03/10/23 07:36 Pulse Rate 105 H 03/10/23 10:17 Respiratory Rate 28 H 03/10/23 07:36 Blood Pressure 105/67 03/10/23 10:30 Pulse Oximetry 92 L 03/10/23 10:29 Oxygen Delivery Method Room Air 03/10/23 07:45 Oxygen Delivery Flow Rate 2 03/10/23 10:17 MDM - SOB/Dyspnea MDM Narrative Medical decision making narrative: this patient has a long history of frequent flareups of asthma. He uses nighttime oxygen and has typical also oximetry of ninety-five percent on room air when he feels good. He has struggled for the last year for days at work. His Covid test here is negative. His chest x-ray is stable but does not show any evolution of right perihilar inflammatory changes. His white blood cell count is normal. He's received three nebulizer treatments from 7 AM to 11:30 AM. He's received steroids. He was then reevaluated. His pulse ox is still only 88-89 percent and he is requesting admission. This will be discussed with the hospitalist Lab Data Labs: Lab Results 03/10/23 Range/Units 07:55 WBC 9.9 (4.0-11.0) 10^3/uL RBC 5.28 (4.70-6.10) 10^6/uL Hgb 15.8 (14.0-18.0) g/dL Hct 47.2 (42.0-54.0) % MCV 89.4 (80.0-94.0) fL MCH 29.9 (25.9-34.0) pg MCHC 33.5 (29.9-35.2) g/dL RDW 12.8 (11.0-15.0) % Plt Count 286 (150-450) 10^3/uL MPV 11.3 (9.5-13.5) fL Neut % (Auto) 64.8 (43.0-75.0) % Lymph % (Auto) 19.6 L (20.5-60.0) % [place] % (Auto) 9.9 (1.7-12.0) % Eos % (Auto) 4.1 (0.9-7.0) % Baso % (Auto) 1.3 (0.2-2.0) % Neut # (Auto) 6.4 (1.4-6.5) 10^3/uL Lymph # (Auto) 1.9 (1.2-3.8) 10^3/uL [place] # (Auto) 1.0 H (0.3-0.8) 10^3/uL Eos # (Auto) 0.4 (0.0-0.7) 10^3/uL Baso # (Auto) 0.1 (0.0-0.1) 10^3/uL Abs Immat Gran (auto) 0.03 (0.00-0.03) 10^3/uL Imm/Tot Granulo (auto) 0.3 (0.0-0.5) % VBG pH 7.347 (7.330-7.430) VBG pCO2 51.9 (40.0-52.0) mmHg Sodium 141 (136-145) mmol/L Potassium 3.8 (3.5-5.1) mmol/L Chloride 102 (98-107) mmol/L Carbon Dioxide 28.4 (21.0-32.0) mmol/L Anion Gap 14.4 BUN 11.0 (7.0-18.0) mg/dL Creatinine 0.82 (0.70-1.30) mg/dL Est GFR ( Amer) >60 (>=60) Est GFR (Non-Af Amer) >60 (>=60) BUN/Creatinine Ratio 13.4 Glucose 85 (74-106) mg/dL Calcium 8.9 (8.5-10.1) mg/dL SARS-CoV-2 (PCR) Negative (NEGATIVE) Discharge Plan Discharge Chief Complaint: Shortness of Breath/Dyspnea Clinical Impression: Acute asthma exacerbation Patient Disposition: Admitted as Observation Time of Disposition Decision: 11:43 Prescriptions / Home Meds: No Action albuterol sulfate 90 mcg/actuation HFA aerosol inhaler 2 puff INHALATION Q6H PRN (Reason: shortness of breath or wheezing) pantoprazole [Protonix] 20 mg tablet,delayed release (DR/EC) 40 mg PO BID albuterol sulfate 2.5 mg /3 mL (0.083 %) solution for nebulization 2.5 mg inhalation QID Referrals: Physician,Non-Staff, MD [Primary Care Provider] - 1 week
--- NOTE | 2023-03-10 07:48 | XR_ITS ---
The [address] [address] Patient Name: FRANCIS GALVEZ MRN: [id number] date: 1990 Sex: M Assigned Patient Location: ER Current Patient Location: ER Accession/Order Number: [id number] Exam Date: 03/10/2023 08:12 Report Date: 03/10/2023 08:41 At the request of: RUSTY MARSH Procedure: XR chest 1V PROCEDURE: XR chest 1V DATE: 03/10/2023 7:12 AM CDT COMPARISONS: 02/06/2023 CLINICAL INDICATION: 32 years Male dyspnea FINDINGS: The heart is shifted slightly toward the left, stable. Prominent scattered chronic lung changes persist. Heterogeneous opacity is noted of the right perihilar region, stable. This is a chronic process when reviewing older radiographs. There is no evidence of pleural effusion or pneumothorax. XR/XR chest 1V IMPRESSION: Prominent chronic lung changes especially of the right perihilar region, stable from previous exams. No new lung parenchymal infiltrates identified. Stable chest. Electronically authenticated by: NONI SPIVEY Date: 03/10/2023 08:41
[2023-03-10] MEDS: IPRATROPIUM/ALBUTEROL SULFATE 3 ML AMPUL.NEB IH ×4 (08:00→23:45)
[2023-03-10 08:06] LABS: Basophils Absolute Auto 0.1 10^3/uL (0.0-0.1); Basophils Percent Auto 1.3 % (0.2-2.0); Eosinophils Absolute Auto 0.4 10^3/uL (0.0-0.7); Eosinophils Percent Auto 4.1 % (0.9-7.0); Hematocrit 47.2 % (42.0-54.0); Hemoglobin 15.8 g/dL (14.0-18.0); Immature Granulocytes Abs Auto 0.03 10^3/uL (0.00-0.03); Immature Granulocytes Pct Auto 0.3 % (0.0-0.5); Lymphocytes Absolute Auto 1.9 10^3/uL (1.2-3.8); Lymphocytes Percent Auto 19.6 % (20.5-60.0); Mean Corpuscular HGB Conc 33.5 g/dL (29.9-35.2); Mean Corpuscular Hemoglobin 29.9 pg (25.9-34.0); Mean Corpuscular Volume 89.4 fL (80.0-94.0); Mean Platelet Volume 11.3 fL (9.5-13.5); Monocytes Percent Auto 9.9 % (1.7-12.0); Neutrophils Absolute Auto 6.4 10^3/uL (1.4-6.5); Neutrophils Percent Auto 64.8 % (43.0-75.0); Platelet Count 286 10^3/uL (150-450); Red Blood Count 5.28 10^6/uL (4.70-6.10); Red Cell Distribution Width 12.8 % (11.0-15.0); White Blood Count 9.9 10^3/uL (4.0-11.0)
[2023-03-10 08:07] LABS: PCO2 VBG 51.9 mmHg (40.0-52.0); pH VBG 7.347 (7.330-7.430)
[2023-03-10] MEDS: METHYLPREDNISOLONE SOD SUCC PF 125 MG/2 ML VIAL IVP ×3 (08:09→20:33)
[2023-03-10 08:21] LABS: Anion Gap 14.4; BUN Creatinine Ratio 13.4; Calcium 8.9 mg/dL (8.5-10.1); Carbon Dioxide 28.4 mmol/L (21.0-32.0); Chloride 102 mmol/L (98-107); Estimated GFR (African America >60 (>=60); Estimated GFR (Non-African Ame >60 (>=60); Glucose 85 mg/dL (74-106); Potassium 3.8 mmol/L (3.5-5.1); Sodium 141 mmol/L (136-145)
[2023-03-10 08:30] LABS: SARS-CoV-2 Ag NEGATIVE (NEGATIVE)
[2023-03-10] MEDS: ALBUTEROL SULFATE 2.5 MG/3 ML VIAL NEB IH ×2 (09:09→10:16)
[2023-03-10] MEDS: FAMOTIDINE 20 MG TABLET 40 MG PO (13:38)
[2023-03-10] MEDS: PANTOPRAZOLE SODIUM 40 MG VIAL IV ×2 (13:38→22:28)
[2023-03-10] MEDS: LACTATED RINGER'S SOLUTION 1,000 ML 100 ML IV (13:38)
[2023-03-10] MEDS: MAGNESIUM SULFATE IN WATER 2 GM/50 ML PREMIX IV (13:44)
[2023-03-10] MEDS: FLU VACC QS 23-24(6MS UP)CEL/PF 60 MCG/0.5 ML SYRINGE IM (14:30)
[2023-03-10 15:18] LABS: SARS-CoV-2 NAA NOT DETECTED (NOT DETECTE)
--- NOTE | 2023-03-10 15:24 | P.HP_ITS ---
H&P: HPI History of Present Illness Chief complaint: SOB/DIFFICULTY BREATHING/ASTHMA/EXACERBATION Narrative: 32-year-old male with past medical history of asthma. Patient notes over the last two days has become more short of breath in which she has used to separate albuterol inhalers completely. He said this morning he just became so comfortable with his lungs being so tight that his mother brought him to the Emergency Room. He notes some change in his asthma when the weather gets colder. He does admit to taping daily, smokeless tobacco, and not using his nebulizers like he is supposed to. He denies any fevers chills recent sore throats and colds or any sick contacts. He has been working daily up until this point without issues. Chest x-ray showed no acute processes but given patient's severity was admitted for further evaluation. Patient notes some improvement on admission exam but still feels very tight and is still very short of breath when talking to me.sees Dr. Fuller of pulmonary in [place]. Review of Systems ROS Narrative ROS: a complete review of systems were reviewed with patient and are positive as below or listed in History of Chief Complaint. General: no fever, chills, night sweats Head: no headache, trauma, visual changes, nausea or vomiting Skin: no reported rashes, itching or sores Eyes: no blurriness of vision Ears: no reported hearing loss, vertigo, earache, or tinnitus Throat: no sore throat, hoarseness, swelling of neck, or tongue pain Heart: no chest pain Lungs: shortness of breath, no cough GI: no diarrhea or vomiting/nausea Urinary: no urinary urgency, frequency or pain Neuro: no numbness or tingling HEM: no bleeding issues or bruising ENDO: no thyroid problems Psych: no anxiety or depression [facility] Medical History Abdominal pain ?R10.9 - Unspecified abdominal pain (ICD-10) Abdominal pain, acute ?R10.9 - Unspecified abdominal pain (ICD-10) 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 (ICD-10) History of gastrostomy tube placement History of home oxygen therapy ?Z99.81 - Dependence on supplemental oxygen (ICD-10) Oxygen desaturation during sleep ?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) Pneumonia ?J18.9 - Pneumonia, unspecified organism (ICD-10) Surgical History H/O chest tube placement ?Z98.890 - Other specified postprocedural states (ICD-10) History of appendectomy ?Z90.49 - Acquired absence of other specified parts of digestive tract (ICD- 10) History of facial surgery ?Z98.890 - Other specified postprocedural states (ICD-10) History of fundoplication ?Z98.890 - Other specified postprocedural states (ICD-10) Family History Mother Family history of diabetes mellitus Family history of hypertension Grandmother Family history of diabetes mellitus Grandfather Family history of myocardial infarction Social History Within the past year, how often did you have a drink containing alcohol: 2-4 times a month Within the past year, how many standard drinks containing alcohol did you have on a typical day: 1 or 2 Within the past year, how often did you have six or more drinks on one occasion: weekly Total score: 3 Score interpretation: A score of 4 or more indicates drinking is likely to affect patient's safety. 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 Known occupational exposures/hazards: No Highest level of school completed/degree received: some college, no degree Are you now , , , , never or living with a partner: In a typical week, how many times do you talk on the telephone with family, friends, or neighbors: 3 or more times per week How often do you get together with friends or relatives: once per week How often do you attend hoahaoism or christianity services: never Do you belong to any clubs or organizations such as hoahaoism groups unions, fraternal or athletic groups, or school groups: no Total score: 1 Score interpretation: A score of less than or equal to 1 indicates the most socially isolated. Little interest or pleasure in doing things: not at all Feeling down, depressed, or hopeless: not at all Feel stressed/tense/nervous/anxious/difficulty sleeping: not at all Do you think of yourself as: straight/heterosexual Gender Identity: male Meds Home Medications and Allergies Home Medications Medication Instructions Recorded Confirmed Type albuterol sulfate 2.5 mg/3 mL 2.5 mg inhalation QID 01/12/23 03/10/23 History (0.083 %) solution for nebulization albuterol sulfate 90 mcg/actuation 2 puff inhalation Q6H PRN 01/12/23 03/10/23 History aerosol inhaler shortness of breath or wheezing pantoprazole 20 mg tablet,delayed 40 mg PO BID 01/12/23 03/10/23 History release (Protonix) Allergies Allergy/AdvReac Type Severity Reaction Status Date / Time Penicillins Allergy Intermediate Verified 02/06/23 22:23 Exam Narrative Exam Narrative: General: Patient is alert, and oriented to person, place and time with normal affect, proper hygiene Skin: no visible rashes, or ulcers Head: atraumatic, acephalic Eyes: PERRLA, no nystagmus present, conjunctiva clear, no scleral icterus Ears: normal gross auditory acuity Heart: Normal rate and rhythm, no murmurs/rubs/gallops Lungs: no audible wheezes, crackles and diminished breath sounds all lung clifford, struggling to talk Abdomen: Normal audible bowel sounds, no distension, No palpable masses, no organomegaly, no rebound/guarding/ or rigidity Musculoskeletal: no swelling bilateral lower extremities Neuro: CN II-X grossly intact, normal sensation upper and lower extremities Constitutional Vital Signs, click to edit/add: Last Vital Signs Temp 97.8 F 03/10/23 12:12 Pulse 115 H 03/10/23 14:27 Resp 22 03/10/23 12:12 BP 100/64 03/10/23 12:12 Pulse Ox 90 L 03/10/23 12:12 O2 Del Method Nasal Cannula 03/10/23 12:12 O2 Flow Rate 2 03/10/23 12:12 Results Labs Labs: Short CBC 03/10/23 Range/Units 07:55 WBC 9.9 (4.0-11.0) 10^3/uL Hgb 15.8 (14.0-18.0) g/dL Hct 47.2 (42.0-54.0) % Plt Count 286 (150-450) 10^3/uL BMP 03/10/23 07:55 Sodium 141 Potassium 3.8 Chloride 102 Carbon Dioxide 28.4 BUN 11.0 Creatinine 0.82 Glucose 85 Calcium 8.9 ABG ABG results: 03/10/23 07:55 VBG pH 7.347 VBG pCO2 51.9 Assessment and Plan Assessment and Plan (1) Acute asthma exacerbation: Assessment and Plan: chest x-ray was negative for any acute pneumonia, we'll check respiratory panel. We'll place on Solu-Medrol 125 mg every 6 hours, scheduled DuoNeb nebulizers, Pulmicort, as needed albuterol. We'll also give 2 g of magnesium and start her on a azithromycin. Continuous pulse ox and telemetry. Oxygen therapy if needed Plan patient is a full code Will place on Lovenox for deep vein thrombosis prophylaxis
[2023-03-10 17:07] LABS: Adenovirus NOT DETECTED (NOT DETECTE); Bordetella parapertussis NOT DETECTED (NOT DETECTE); Coronavirus 229E NOT DETECTED (NOT DETECTE); Coronavirus HKU1 NOT DETECTED (NOT DETECTE); Coronavirus NL63 NOT DETECTED (NOT DETECTE); Coronavirus OC43 NOT DETECTED (NOT DETECTE); Human Metapneumovirus NOT DETECTED (NOT DETECTE); Human Rhinovirus/Enterovirus NOT DETECTED (NOT DETECTE); Influenza A NOT DETECTED (NOT DETECTE); Influenza B NOT DETECTED (NOT DETECTE); Mycoplasma pneumoniae NOT DETECTED (NOT DETECTE); Parainfluenza Virus 1 NOT DETECTED (NOT DETECTE); Parainfluenza Virus 2 NOT DETECTED (NOT DETECTE); Parainfluenza Virus 3 NOT DETECTED (NOT DETECTE); Parainfluenza Virus 4 NOT DETECTED (NOT DETECTE); Respiratory Syncytial Virus NOT DETECTED (NOT DETECTE); SARS-CoV-2 NOT DETECTED (NOT DETECTE)
[2023-03-10] MEDS: AZITHROMYCIN 250 MG in 0.9 % SODIUM CHLORIDE 250 ML IV (20:33)
[2023-03-10] MEDS: BUDESONIDE 0.5 MG/2 ML AMPULE NEB IH (23:45)
[2023-03-11] VITALS (20 sets, daily range): BP systolic 107–109; BP diastolic 50–63; PULSE 89–147; RESP 16–24; TEMP 36.6–36.8; O2SAT 90–97
[2023-03-11] MEDS: LACTATED RINGER'S SOLUTION 1,000 ML 100 ML IV ×3 (03:19→23:26)
[2023-03-11] MEDS: METHYLPREDNISOLONE SOD SUCC PF 125 MG/2 ML VIAL IVP ×4 (03:19→21:04)
[2023-03-11] MEDS: IPRATROPIUM/ALBUTEROL SULFATE 3 ML AMPUL.NEB IH ×6 (03:59→23:03)
[2023-03-11 05:28] LABS: Basophils Percent Auto 0.1 % (0.2-2.0); Hematocrit 41.1 % (42.0-54.0); Hemoglobin 13.8 g/dL (14.0-18.0); Immature Granulocytes Abs Auto 0.03 10^3/uL (0.00-0.03); Immature Granulocytes Pct Auto 0.3 % (0.0-0.5); Lymphocytes Absolute Auto 0.5 10^3/uL (1.2-3.8); Lymphocytes Percent Auto 4.9 % (20.5-60.0); Mean Corpuscular HGB Conc 33.6 g/dL (29.9-35.2); Mean Corpuscular Hemoglobin 30.1 pg (25.9-34.0); Mean Corpuscular Volume 89.7 fL (80.0-94.0); Mean Platelet Volume 11.6 fL (9.5-13.5); Monocytes Absolute Auto 0.2 10^3/uL (0.3-0.8); Monocytes Percent Auto 1.9 % (1.7-12.0); Neutrophils Absolute Auto 9.4 10^3/uL (1.4-6.5); Neutrophils Percent Auto 92.8 % (43.0-75.0); Platelet Count 263 10^3/uL (150-450); Red Blood Count 4.58 10^6/uL (4.70-6.10); Red Cell Distribution Width 12.9 % (11.0-15.0); White Blood Count 10.1 10^3/uL (4.0-11.0)
[2023-03-11 06:00] LABS: Alanine Aminotransferase 13 U/L (16-63); Albumin Globulin Ratio 1.1; Albumin Level 3.6 g/dL (3.4-5.0); Alkaline Phosphatase 99 U/L (46-116); Anion Gap 13.3; Aspartate Amino Transferase 8 U/L (15-37); BUN Creatinine Ratio 15.4; Bilirubin Total 0.4 mg/dL (0.2-1.0); Calcium 8.5 mg/dL (8.5-10.1); Carbon Dioxide 23.7 mmol/L (21.0-32.0); Chloride 105 mmol/L (98-107); Estimated GFR (African America >60 (>=60); Estimated GFR (Non-African Ame >60 (>=60); Globulin 3.2 g/dL; Glucose 204 mg/dL (74-106); Sodium 138 mmol/L (136-145); Total Protein 6.8 g/dL (6.4-8.2)
[2023-03-11] MEDS: FAMOTIDINE 20 MG TABLET 40 MG PO (08:12)
[2023-03-11] MEDS: PANTOPRAZOLE SODIUM 40 MG VIAL IV ×2 (08:12→21:04)
--- NOTE | 2023-03-11 08:23 | PM.PN ---
Progress Note: Subjective Subjective Interval history: patient reports improvement in his chest tightness this morning. He denies any shortness of breath or chest pain. He says his anxiety has increased over the last several weeks and he has been getting panic attacks at home. He denies trying anything for anxiety in the past but feels this is contributing to his chest tightness at times. He also says that he didn't get much rest last night but denies any fevers chills or coughing. Exam Narrative Exam Narrative: General: Patient is alert, and oriented to person, place and time with normal affect, proper hygiene Heart: Normal rate and rhythm, no murmurs/rubs/gallops Lungs: no audible wheezes, crackles and normal breath sounds all lung clifford Musculoskeletal: no swelling bilateral lower extremities Neuro: CN II-X grossly intact, normal sensation upper and lower extremities Constitutional Vital Signs, click to edit/add: Last Vital Signs Temp 97.8 F 03/11/23 06:00 Pulse 130 H 03/11/23 07:52 Resp 22 03/11/23 06:00 BP 108/63 03/11/23 06:00 Pulse Ox 94 L 03/11/23 07:52 O2 Del Method Nasal Cannula 03/11/23 07:28 O2 Flow Rate 3 03/11/23 07:28 Progress Note: Objective Labs Labs: Short CBC 03/11/23 Range/Units 05:08 WBC 10.1 (4.0-11.0) 10^3/uL Hgb 13.8 L (14.0-18.0) g/dL Hct 41.1 L (42.0-54.0) % Plt Count 263 (150-450) 10^3/uL BMP 03/10/23 03/11/23 07:55 05:08 Sodium 141 138 Potassium 3.8 4.0 Chloride 102 105 Carbon Dioxide 28.4 23.7 BUN 11.0 14.0 Creatinine 0.82 0.91 Glucose 85 204 H Calcium 8.9 8.5 Liver Function 03/11/23 Range/Units 05:08 Total Bilirubin 0.4 (0.2-1.0) mg/dL AST 8 L (15-37) U/L ALT 13 L (16-63) U/L Alkaline Phosphatase 99 (46-116) U/L Albumin 3.6 (3.4-5.0) g/dL Progress Note: A&P Assessment and Plan (1) Acute asthma exacerbation: Assessment and Plan: chest x-ray was negative for any acute pneumonia, respiratory panel was negative.continue on Solu-Medrol 125 mg every 6 hours, scheduled DuoNeb nebulizers, Pulmicort, as needed albuterol. Given 2 g of magnesium and continue on a azithromycin. Continuous pulse ox and telemetry. Oxygen therapy if needed (2) Panic attack as reaction to stress: Assessment and Plan: will start Vistaril as needed for panic attacks Plan patient is a full code Will place on Lovenox for deep vein thrombosis prophylaxis
[2023-03-11] MEDS: HYDROXYZINE PAMOATE 25 MG CAPSULE PO ×2 (12:02→21:05)
[2023-03-11] MEDS: BUDESONIDE 0.5 MG/2 ML AMPULE NEB IH ×2 (12:32→23:03)
[2023-03-11] MEDS: AZITHROMYCIN 250 MG in 0.9 % SODIUM CHLORIDE 250 ML 125 MG IV (21:04)
[2023-03-12] VITALS (10 sets, daily range): BP systolic 99–102; BP diastolic 58; PULSE 110–129; RESP 18–26; TEMP 36.5–36.8; O2SAT 91–958
[2023-03-12] MEDS: METHYLPREDNISOLONE SOD SUCC PF 125 MG/2 ML VIAL IVP ×2 (02:11→08:15)
[2023-03-12] MEDS: IPRATROPIUM/ALBUTEROL SULFATE 3 ML AMPUL.NEB IH ×3 (04:00→10:58)
[2023-03-12 05:47] LABS: Basophils Percent Auto 0.1 % (0.2-2.0); Hematocrit 41.4 % (42.0-54.0); Hemoglobin 13.5 g/dL (14.0-18.0); Immature Granulocytes Abs Auto 0.08 10^3/uL (0.00-0.03); Immature Granulocytes Pct Auto 0.5 % (0.0-0.5); Lymphocytes Absolute Auto 0.4 10^3/uL (1.2-3.8); Lymphocytes Percent Auto 2.4 % (20.5-60.0); Mean Corpuscular HGB Conc 32.6 g/dL (29.9-35.2); Mean Corpuscular Hemoglobin 29.7 pg (25.9-34.0); Mean Corpuscular Volume 91.2 fL (80.0-94.0); Mean Platelet Volume 12.3 fL (9.5-13.5); Monocytes Absolute Auto 0.3 10^3/uL (0.3-0.8); Monocytes Percent Auto 2.2 % (1.7-12.0); Neutrophils Absolute Auto 14.9 10^3/uL (1.4-6.5); Neutrophils Percent Auto 94.8 % (43.0-75.0); Platelet Count 275 10^3/uL (150-450); Red Blood Count 4.54 10^6/uL (4.70-6.10); Red Cell Distribution Width 13.7 % (11.0-15.0); White Blood Count 15.7 10^3/uL (4.0-11.0)
[2023-03-12 06:06] LABS: Alanine Aminotransferase 16 U/L (16-63); Albumin Globulin Ratio 1.2; Albumin Level 3.4 g/dL (3.4-5.0); Alkaline Phosphatase 97 U/L (46-116); Anion Gap 13.5; Aspartate Amino Transferase 10 U/L (15-37); BUN Creatinine Ratio 15.7; Bilirubin Total 0.3 mg/dL (0.2-1.0); Calcium 8.4 mg/dL (8.5-10.1); Carbon Dioxide 26.4 mmol/L (21.0-32.0); Chloride 104 mmol/L (98-107); Estimated GFR (African America >60 (>=60); Estimated GFR (Non-African Ame >60 (>=60); Globulin 2.9 g/dL; Glucose 255 mg/dL (74-106); Potassium 3.9 mmol/L (3.5-5.1); Sodium 140 mmol/L (136-145); Total Protein 6.3 g/dL (6.4-8.2)
[2023-03-12] MEDS: FAMOTIDINE 20 MG TABLET 40 MG PO (08:15)
[2023-03-12] MEDS: PANTOPRAZOLE SODIUM 40 MG VIAL IV (08:15)
--- NOTE | 2023-03-12 08:55 | P.DS_ITS ---
DS: Providers Provider Date of admission: 03/10/23 11:51 Primary care physician: Non-Staff Physician, DS: Diagnosis Discharge Diagnosis (1) Acute asthma exacerbation: (2) Panic attack as reaction to stress: DS: Summary Time Spent with Patient Time attestation: Total time spent providing and/or coordinating discharge services: Exam Constitutional Vital Signs, click to edit/add: Last Vital Signs Temp 98.3 F 03/12/23 07:44 Pulse 124 H 03/12/23 07:53 Resp 18 03/12/23 07:44 BP 102/58 03/12/23 07:44 Pulse Ox 958 H 03/12/23 07:53 O2 Del Method Room Air 03/12/23 07:44 O2 Flow Rate 3 03/11/23 07:28 DS: Data Data Completed and Pending Labs on day of discharge: Labs from last 24 hours 03/12/23 04:45 WBC 15.7 H RBC 4.54 L Hgb 13.5 L Hct 41.4 L MCV 91.2 MCH 29.7 MCHC 32.6 RDW 13.7 Plt Count 275 MPV 12.3 Neut % (Auto) 94.8 H Lymph % (Auto) 2.4 L [place] % (Auto) 2.2 Eos % (Auto) 0.0 L Baso % (Auto) 0.1 L Neut # (Auto) 14.9 H Lymph # (Auto) 0.4 L [place] # (Auto) 0.3 Eos # (Auto) 0.0 Baso # (Auto) 0.0 Abs Immat Gran (auto) 0.08 H Imm/Tot Granulo (auto) 0.5 Sodium 140 Potassium 3.9 Chloride 104 Carbon Dioxide 26.4 Anion Gap 13.5 BUN 13.0 Creatinine 0.83 Est GFR ( Amer) >60 Est GFR (Non-Af Amer) >60 BUN/Creatinine Ratio 15.7 Glucose 255 H Calcium 8.4 L Total Bilirubin 0.3 AST 10 L ALT 16 Alkaline Phosphatase 97 Total Protein 6.3 L Albumin 3.4 Globulin 2.9 Albumin/Globulin Ratio 1.2 Discharge Plan Discharge Discharge Medications: No Action albuterol sulfate 90 mcg/actuation HFA aerosol inhaler 2 puff INHALATION Q6H PRN (Reason: shortness of breath or wheezing) pantoprazole [Protonix] 20 mg tablet,delayed release (DR/EC) 40 mg PO BID albuterol sulfate 2.5 mg /3 mL (0.083 %) solution for nebulization 2.5 mg inhalation QID
--- NOTE | 2023-03-12 10:16 | P.DS_ITS ---
patient also seen and examined by me at the time of discharge. Note reviewed, labs and discharge; agree with findings. DS: Providers Provider Date of admission: 03/10/23 11:51 Primary care physician: Non-Staff Physician, Admitting clinician: Kassandra Sheppard Attending physician on discharge: Kassandra Sheppard Discharging clinician: Faith Vásquez Anticipated date of discharge: 03/12/23 DS: Diagnosis Discharge Diagnosis (1) Acute asthma exacerbation: (2) Panic attack as reaction to stress: DS: Summary Hospital Course Hospital Course: The patient was admitted to observation with an acute exacerbation of asthma with associated wheezing and hypoxia. He was treated with steroids, O2 supplementation, antibiotics for possible concurrent bronchitis and scheduled breathing treatments. The patient's condition slowly improved and he was able to be weaned off of O2 supplementation. He reports feeling significantly better this morning and is back to his baseline. The patient also experienced panic attacks d/t stress reaction and was prescribed PRN vistaril which he reports helped w/ his anxiety symptoms. He is being discharged home in stable condition with prescriptions to complete a 5-day course of azithromycin, an additional 5 day prednisone burst, new prescriptions for Advair Diskus and Singulair for improved asthma maintenance, and PRN Vistaril for anxiety. 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 Fuller as soon as possible. He has been advised to stop all smoking including vaping and marijuana. He should establish with a PCP as soon as possible. Time spent discussing smoking cessation with patient: 3 to 10 minutes Time Spent with Patient Time attestation: Total time spent providing and/or coordinating discharge services: Time spent: greater than 30 minutes Specific discharge activities: New medications. Follow up plan outpatient. Exam Constitutional Vital Signs, click to edit/add: Last Vital Signs Temp 98.3 F 03/12/23 07:44 Pulse 126 H 03/12/23 10:00 Resp 18 03/12/23 07:44 BP 102/58 03/12/23 07:44 Pulse Ox 958 H 03/12/23 07:53 O2 Del Method Room Air 03/12/23 07:44 O2 Flow Rate 3 03/11/23 07:28 Common normals: no apparent distress, oriented x3 and alert General appearance: cooperative Orientation/consciousness: Yes awake HENPA Common normals: normocephalic and head/scalp atraumatic Head and scalp: normocephalic and atraumatic Eye Common normals: PERRL, EOMs intact bilaterally, conjunctivae normal and no scleral icterus Conjunctiva: conjunctiva(e) normal Pupil: PERRL Neck & C-Spine Common normals: no JVD Respiratory Common normals: normal respiratory effort and no use of accessory muscles Effort & inspection: able to speak in complete sentences and symmetric chest movement Auscultation: wheezes anterior (EE groan) and posterior (clear) Cardio Common normals: no JVD, regular rate, regular rhythm, S1 normal heart sound, S2 normal heart sound, no gallops, no clicks, no murmurs, no rub and peripheral pulses 2+ throughout Rate: regular rate Rhythm: regular rhythm Heart sounds: S1 normal and S2 normal Peripheral pulses: pulses 2+ throughout GI Common normals: Normal to inspection, nondistended, normoactive bowel sounds present and soft to palpation Palpation: soft and tender (diffuse, non-focal, mild muscle wall tenderness) Bladder/kidney exam: bladder normal to palpation Extremity Common normals: normal to inspection, full ROM, normal capillary refill and no pedal edema General: no clubbing and no cyanosis Neuro Common normals: oriented x3, CN's II-XII intact bilaterally, moves all extremities, no focal motor deficits and no sensory deficits noted Sensorium/orientation: awake and alert Speech: speech normal Psych Common normals: mental status grossly normal and activity/motor behavior normal Appearance: grossly normal DS: Data Data Completed and Pending Completed studies during hospitalization: CXR Labs on day of discharge: Labs from last 24 hours 03/12/23 04:45 WBC 15.7 H RBC 4.54 L Hgb 13.5 L Hct 41.4 L MCV 91.2 MCH 29.7 MCHC 32.6 RDW 13.7 Plt Count 275 MPV 12.3 Neut % (Auto) 94.8 H Lymph % (Auto) 2.4 L [place] % (Auto) 2.2 Eos % (Auto) 0.0 L Baso % (Auto) 0.1 L Neut # (Auto) 14.9 H Lymph # (Auto) 0.4 L [place] # (Auto) 0.3 Eos # (Auto) 0.0 Baso # (Auto) 0.0 Abs Immat Gran (auto) 0.08 H Imm/Tot Granulo (auto) 0.5 Sodium 140 Potassium 3.9 Chloride 104 Carbon Dioxide 26.4 Anion Gap 13.5 BUN 13.0 Creatinine 0.83 Est GFR ( Amer) >60 Est GFR (Non-Af Amer) >60 BUN/Creatinine Ratio 15.7 Glucose 255 H Calcium 8.4 L Total Bilirubin 0.3 AST 10 L ALT 16 Alkaline Phosphatase 97 Total Protein 6.3 L Albumin 3.4 Globulin 2.9 Albumin/Globulin Ratio 1.2 Discharge Plan Discharge Disposition: Home, Self-Care Condition: Good Discharge Medications: New fluticasone propion-salmeterol [Advair Diskus] 250-50 mcg/dose blister with device 1 inh inhalation BID Qty: 60 0RF montelukast 10 mg tablet 10 mg PO QPM Qty: 30 0RF prednisone 20 mg tablet 40 mg PO DAILY 5 Days Qty: 10 0RF azithromycin 250 mg tablet 250 mg PO DAILY 3 Days Qty: 3 0RF Rx Instructions: start on day 2 of therapy hydroxyzine pamoate 25 mg Capsule 25 mg PO TID PRN (Reason: Anxiety) Qty: 30 0RF Continued albuterol sulfate 90 mcg/actuation HFA aerosol inhaler 2 puff INHALATION Q6H PRN (Reason: shortness of breath or wheezing) pantoprazole [Protonix] 20 mg tablet,delayed release (DR/EC) 40 mg PO BID albuterol sulfate 2.5 mg /3 mL (0.083 %) solution for nebulization 2.5 mg inhalation QID Activity: increase activity as tolerated Diet: advance to your usual diet Patient Instructions: Prednisone (By mouth), Azithromycin (By mouth), Hydroxyzine (By mouth), Montelukast (By mouth), Fluticasone/Salmeterol (By breathing) (Advair Diskus 100/50, Advair..., Asthma (DC) Activity Restrictions/Additional Instructions: - stop all smoking including vaping and marijuana Forms: Portal Instructions Follow Up Appointments: Patient does not have a PCP - he was given a paper with doctor's who are accepting new patients. Patient is to make a doctors appt. for a follow up 7-10 days following discharge. Follow up appt. with Dr. Fuller (pulmonology) on @ 9:45am [address], [address], [place] Office #: [phone]
[2023-03-12] MEDS: BUDESONIDE 0.5 MG/2 ML AMPULE NEB IH (10:58)
--- NOTE | 2023-03-12 11:54 | SWNOTE1 ---
SW was not able to get DIEHL form signed, pt was discharged prior to SW completing assessment.
--- NOTE | 2023-03-12 12:35 | CM.NOTE ---
Rounds made with Dr. Sheppard. Plan for discharge today.
--- NOTE | 2023-03-13 15:45 | CM.DCFOLLOWU ---
1st attempt. No answer
--- NOTE | 2023-03-14 14:44 | CM.DCFOLLOWU ---
2nd call... No answer.
--- NOTE | 2023-03-15 15:52 | CM.DCFOLLOWU ---
Person spoke with: Luis How are you feeling? Better How is your pain? No pain Did you understand your discharge instructions? Yes Do you have any questions about your discharge instructions? No Were you given any prescriptions at discharge? Yes Were you able to get your prescriptions filled? Yes Do you understand how to take your medications as ordered? Yes Do you have any questions about your follow up appointment and do you plan to keep your follow up appointment? Still reaching out and trying to establish a primary care doctor-several calls made today awaiting call backs. Dr. 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 Is there anything else that you would like to discuss? No Questions/Comments/Concerns/Other:
== END 2023-03-12 11:36 | disposition home or self-care (01) ==
LOC: ER 11:43 → MS 12:01
PROVIDERS: Admitting Provider Family Medicine; Emergency Provider Emergency Medicine Emergency Medical Services; Visit Provider Nurse Practitioner
DX: J45.901 Unspecified asthma with (acute) exacerbation (principal); F43.0 Acute stress reaction; F17.220 Nicotine dependence, chewing tobacco, uncomplicated; F17.290 Nicotine dependence, other tobacco product, uncomplicated; F12.90 Cannabis use, unspecified, uncomplicated; Z99.81 Dependence on supplemental oxygen; Z79.899 Other long term (current) drug therapy; Z20.822 Contact with and (suspected) exposure to COVID-19; Z87.01 Personal history of pneumonia (recurrent); Z90.49 Acquired absence of other specified parts of digestive tract; Z23 Encounter for immunization
CPT/HCPCS: 0202U; 36415; 71045; 80048; 80053; 82800; 85025; 87635; 87811; 90674; 94640; 94667; 94668; 94761; 96365; 96366; 96375; 96376; 99285; G0008; G0378; J0456; J2930

== ENCOUNTER 2023-04-03 10:52 | Emergency (ER) | payer MEDICARE, MEDICAID, SELFPAY ==
[2023-04-03 11:03] VITALS: BP 104/71; PULSE 98; RESP 20; TEMP 36.7; O2SAT 92; BMI 21.9
--- NOTE | 2023-04-03 11:35 | XR_ITS ---
The [address] [address] Patient Name: FRANCIS GALVEZ MRN: [id number] date: 1990 Sex: M Assigned Patient Location: ER Current Patient Location: ER Accession/Order Number: [id number] Exam Date: 04/03/2023 12:07 Report Date: 04/03/2023 12:25 At the request of: RUSTY MARSH Procedure: XR chest 1V EXAMINATION: XR chest 1V 04/03/2023 9:23 AM PST HISTORY: shortness of breath TECHNIQUE: Single frontal view of the chest acquired. COMPARISONS: Chest x-ray 03/10/[address] 02/06/2023. FINDINGS: Lines/tubes/other: None. Heart and mediastinum: Stable. Bones: No acute osseous abnormality. Lungs: Bilateral paramediastinal scarring with extension into the right mid and upper lung along with mild streaky opacification at bilateral lateral bases, similar. No new or worsening pulmonary opacity. No pulmonary edema. Pleura: Trace left pleural effusion, similar. No pneumothorax. Other: None. XR/XR chest 1V IMPRESSION: Similar chronic pulmonary opacification, no new or worsening cardiopulmonary abnormality demonstrated. Electronically authenticated by: NEREYDA KAUFMAN Date: 04/03/2023 12:25
[2023-04-03] MEDS: IPRATROPIUM/ALBUTEROL SULFATE 3 ML AMPUL.NEB IH (11:51)
[2023-04-03 11:52] VITALS: PULSE 70; RESP 27; O2SAT 93
[2023-04-03 12:08] LABS: Basophils Absolute Auto 0.1 10^3/uL (0.0-0.1); Basophils Percent Auto 0.7 % (0.2-2.0); Eosinophils Absolute Auto 0.2 10^3/uL (0.0-0.7); Immature Granulocytes Abs Auto 0.01 10^3/uL (0.00-0.03); Immature Granulocytes Pct Auto 0.1 % (0.0-0.5); Lymphocytes Absolute Auto 1.5 10^3/uL (1.2-3.8); Lymphocytes Percent Auto 18.4 % (20.5-60.0); Mean Corpuscular HGB Conc 33.3 g/dL (29.9-35.2); Mean Corpuscular Hemoglobin 29.7 pg (25.9-34.0); Mean Corpuscular Volume 89.1 fL (80.0-94.0); Mean Platelet Volume 11.1 fL (9.5-13.5); Monocytes Absolute Auto 0.5 10^3/uL (0.3-0.8); Monocytes Percent Auto 6.6 % (1.7-12.0); Neutrophils Absolute Auto 5.7 10^3/uL (1.4-6.5); Neutrophils Percent Auto 71.2 % (43.0-75.0); Platelet Count 268 10^3/uL (150-450); Red Blood Count 5.05 10^6/uL (4.70-6.10); Red Cell Distribution Width 12.6 % (11.0-15.0)
[2023-04-03 12:10] LABS: Anion Gap 9.9; BUN Creatinine Ratio 10.1; Calcium 8.7 mg/dL (8.5-10.1); Carbon Dioxide 28.9 mmol/L (21.0-32.0); Chloride 103 mmol/L (98-107); Estimated GFR (African America >60 (>=60); Estimated GFR (Non-African Ame >60 (>=60); Glucose 92 mg/dL (74-106); Potassium 3.8 mmol/L (3.5-5.1); Sodium 138 mmol/L (136-145)
--- NOTE | 2023-04-03 12:23 | ED_ITS ---
HPI - SOB/Dyspnea General Chief Complaint: Shortness of Breath/Dyspnea Stated Complaint: COMPLICATED BREATHING, DIARRHEA Time Seen by Provider: 04/03/23 11:26 Source: patient Mode of arrival: walk-in History of Present Illness HPI Narrative: this patient is well-known to me from previous Emergency Room visits. Very pleasant good historian. Last time I saw him. Bit him overnight for an exacerbation of his respiratory problems. Since that time he has been doing fairly well. He does have a customer service administrator but missed his appointment to see him. However he did have a EEG and D yesterday in [facility] and was told that he has an ulcer. He was given a prescriptions for medication but has not started it yet. He does not have a history of vomiting today. He does have use of nebulized treatments on an ongoing basis. His last chest x-ray suggested mucous plugging and he was given a follow-up with a customer service administrator but hasn't done so as of yet. His vital signs here show some tachypnea but his pulses normalize his blood pressure. His O2 saturation is stable at ninety-three percent which is status quo for him. When he had his EGD, the physician told his mother that he did not have any other complications or obstructions just the ulcer in the area. He has not been on steroids since several weeks ago when he was admitted at this institution. Doesn't really have a purulent sputum. Related Data Home Medications Medication Instructions Recorded Confirmed albuterol sulfate 2.5 mg/3 mL 2.5 mg inhalation QID 01/12/23 04/03/23 (0.083 %) solution for nebulization albuterol sulfate 90 mcg/actuation 2 puff inhalation Q6H PRN 01/12/23 03/10/23 aerosol inhaler shortness of breath or wheezing pantoprazole 20 mg tablet,delayed 40 mg PO BID 01/12/23 03/10/23 release (Protonix) dicyclomine 10 mg capsule 10 mg PO BID 04/03/23 04/03/23 Previous Rx's Medication Instructions Recorded azithromycin 250 mg tablet 250 mg PO DAILY 3 days #3 tabs 03/12/23 fluticasone 250 mcg-salmeterol 50 1 inh inhalation BID #60 ea 03/12/23 mcg/dose blistr powdr for inhalation (Advair Diskus) hydroxyzine pamoate 25 mg capsule 25 mg PO TID PRN Anxiety #30 caps 03/12/23 montelukast 10 mg tablet 10 mg PO QPM #30 tabs 03/12/23 prednisone 20 mg tablet 40 mg PO DAILY 5 days #10 tabs 03/12/23 Allergies Allergy/AdvReac Type Severity Reaction Status Date / Time Penicillins Allergy Intermediate Verified 04/03/23 11:02 [facility] Medical History Abdominal pain ?R10.9 - Unspecified abdominal pain (ICD-10) Abdominal pain, acute ?R10.9 - Unspecified abdominal pain (ICD-10) 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 (ICD-10) History of gastrostomy tube placement History of home oxygen therapy ?Z99.81 - Dependence on supplemental oxygen (ICD-10) Oxygen desaturation during sleep ?G47.34 - 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) Pneumonia ?J18.9 - Pneumonia, unspecified organism (ICD-10) Surgical History H/O chest tube placement ?Z98.890 - Other specified postprocedural states (ICD-10) History of appendectomy ?Z90.49 - Acquired absence of other specified parts of digestive tract (ICD- 10) History of facial surgery ?Z98.890 - Other specified postprocedural states (ICD-10) History of fundoplication ?Z98.890 - Other specified postprocedural states (ICD-10) Family History Mother Family history of diabetes mellitus Family history of hypertension Grandmother Family history of diabetes mellitus Grandfather Family history of myocardial infarction Social History Within the past year, how often did you have a drink containing alcohol: 2-4 times a month Within the past year, how many standard drinks containing alcohol did you have on a typical day: 1 or 2 Within the past year, how often did you have six or more drinks on one occasion: weekly Total score: 3 Score interpretation: A score of 4 or more indicates drinking is likely to affect patient's safety. 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 Known occupational exposures/hazards: No Highest level of school completed/degree received: some college, no degree Are you now , , , , never or living with a partner: In a typical week, how many times do you talk on the telephone with family, friends, or neighbors: 3 or more times per week How often do you get together with friends or relatives: once per week How often do you attend restorationism or jainism services: never Do you belong to any clubs or organizations such as restorationism groups unions, fraternal or athletic groups, or school groups: no Total score: 1 Score interpretation: A score of less than or equal to 1 indicates the most socially isolated. Little interest or pleasure in doing things: not at all Feeling down, depressed, or hopeless: not at all Feel stressed/tense/nervous/anxious/difficulty sleeping: not at all Do you think of yourself as: straight/heterosexual Gender Identity: male Exam Narrative Exam Narrative: choice awake alert skin is warm and dry his color is good he does not know appear pale or anemic. There is no evidence of scleral icterus or jaundice. He does have wheezing bilaterally. There is no rales or rhonchi. Heart sounds are normal with no murmur or rub. Rhythm is sinus with heart rate borderline tachycardia at 90-95 sinus rhythm. Abdomen is benign thin previous surgical incisions previous bleeding noted. Extremities show no peripheral edema or evidence calf tenderness or phlebitis. His integument is warm and dry with no pallor or anemia no diaphoresis or clamminess. Constitutional Vital Signs, click to edit/add: Last Vital Signs Temp 98.1 F 04/03/23 11:03 Pulse 70 04/03/23 11:52 Resp 27 H 04/03/23 11:52 BP 104/71 04/03/23 11:03 Pulse Ox 93 L 04/03/23 11:52 O2 Del Method Nasal Cannula 04/03/23 11:52 O2 Flow Rate 2 04/03/23 11:52 Course Vital Signs Vital signs: Vital Signs Temperature 98.1 F 04/03/23 11:03 Pulse Rate 98 H 04/03/23 11:03 Respiratory Rate 20 04/03/23 11:03 Blood Pressure 104/71 04/03/23 11:03 Pulse Oximetry 92 L 04/03/23 11:03 Oxygen Delivery Method Room Air 04/03/23 11:03 Temperature 98.1 F 04/03/23 11:03 Pulse Rate 70 04/03/23 11:52 Respiratory Rate 27 H 04/03/23 11:52 Blood Pressure 104/71 04/03/23 11:03 Pulse Oximetry 93 L 04/03/23 11:52 Oxygen Delivery Method Nasal Cannula 04/03/23 11:52 Oxygen Delivery Flow Rate 2 04/03/23 11:52 MDM - SOB/Dyspnea MDM Narrative Medical decision making narrative: chest x-ray today does not show any evolution, or worsening process. There is no evidence of pneumothorax per my review. Luis was given a DuoNeb here. We'll place him back on steroids. It would be between him and his customer service administrator to see if he would benefit from bronchoscopy. It is no evidence secondary infection at this time in fact his white blood cell count was markedly improved and he has no purulence of his sputum. Lab Data Labs: Lab Results 04/03/23 Range/Units 11:52 WBC 8.0 (4.0-11.0) 10^3/uL RBC 5.05 (4.70-6.10) 10^6/uL Hgb 15.0 (14.0-18.0) g/dL Hct 45.0 (42.0-54.0) % MCV 89.1 (80.0-94.0) fL MCH 29.7 (25.9-34.0) pg MCHC 33.3 (29.9-35.2) g/dL RDW 12.6 (11.0-15.0) % Plt Count 268 (150-450) 10^3/uL MPV 11.1 (9.5-13.5) fL Neut % (Auto) 71.2 (43.0-75.0) % Lymph % (Auto) 18.4 L (20.5-60.0) % Elliott % (Auto) 6.6 (1.7-12.0) % Eos % (Auto) 3.0 (0.9-7.0) % Baso % (Auto) 0.7 (0.2-2.0) % Neut # (Auto) 5.7 (1.4-6.5) 10^3/uL Lymph # (Auto) 1.5 (1.2-3.8) 10^3/uL Elliott # (Auto) 0.5 (0.3-0.8) 10^3/uL Eos # (Auto) 0.2 (0.0-0.7) 10^3/uL Baso # (Auto) 0.1 (0.0-0.1) 10^3/uL Abs Immat Gran (auto) 0.01 (0.00-0.03) 10^3/uL Imm/Tot Granulo (auto) 0.1 (0.0-0.5) % Sodium 138 (136-145) mmol/L Potassium 3.8 (3.5-5.1) mmol/L Chloride 103 (98-107) mmol/L Carbon Dioxide 28.9 (21.0-32.0) mmol/L Anion Gap 9.9 BUN 8.0 (7.0-18.0) mg/dL Creatinine 0.79 (0.70-1.30) mg/dL Est GFR ( Amer) >60 (>=60) Est GFR (Non-Af Amer) >60 (>=60) BUN/Creatinine Ratio 10.1 Glucose 92 (74-106) mg/dL Calcium 8.7 (8.5-10.1) mg/dL Discharge Plan Discharge Chief Complaint: Shortness of Breath/Dyspnea Clinical Impression: Chronic dyspnea Patient Disposition: Home, Self-Care Time of Disposition Decision: 12:27 Prescriptions / Home Meds: No Action albuterol sulfate 90 mcg/actuation HFA aerosol inhaler 2 puff INHALATION Q6H PRN (Reason: shortness of breath or wheezing) pantoprazole [Protonix] 20 mg tablet,delayed release (DR/EC) 40 mg PO BID albuterol sulfate 2.5 mg /3 mL (0.083 %) solution for nebulization 2.5 mg inhalation QID fluticasone propion-salmeterol [Advair Diskus] 250-50 mcg/dose blister with device 1 inh inhalation BID Qty: 60 0RF montelukast 10 mg tablet 10 mg PO QPM Qty: 30 0RF prednisone 20 mg tablet 40 mg PO DAILY 5 Days Qty: 10 0RF azithromycin 250 mg tablet 250 mg PO DAILY 3 Days Qty: 3 0RF Rx Instructions: start on day 2 of therapy hydroxyzine pamoate 25 mg Capsule 25 mg PO TID PRN (Reason: Anxiety) Qty: 30 0RF dicyclomine 10 mg capsule 10 mg PO BID Additional Instructions: start prednisone. Follow-up with Dr. Valdes of [facility] customer service administrator. Take a copy of her CT report. Stand Alone Forms: Portal Instructions Referrals: Physician,Non-Staff, MD [Primary Care Provider] - 1 week
[2023-04-03 12:25] LABS: Adenovirus NOT DETECTED (NOT DETECTE); Bordetella parapertussis NOT DETECTED (NOT DETECTE); Coronavirus 229E NOT DETECTED (NOT DETECTE); Coronavirus HKU1 NOT DETECTED (NOT DETECTE); Coronavirus NL63 NOT DETECTED (NOT DETECTE); Coronavirus OC43 NOT DETECTED (NOT DETECTE); Human Metapneumovirus NOT DETECTED (NOT DETECTE); Human Rhinovirus/Enterovirus NOT DETECTED (NOT DETECTE); Influenza A NOT DETECTED (NOT DETECTE); Influenza B NOT DETECTED (NOT DETECTE); Mycoplasma pneumoniae NOT DETECTED (NOT DETECTE); Parainfluenza Virus 1 NOT DETECTED (NOT DETECTE); Parainfluenza Virus 2 NOT DETECTED (NOT DETECTE); Parainfluenza Virus 3 NOT DETECTED (NOT DETECTE); Parainfluenza Virus 4 NOT DETECTED (NOT DETECTE); Respiratory Syncytial Virus NOT DETECTED (NOT DETECTE); SARS-CoV-2 NOT DETECTED (NOT DETECTE)
[2023-04-03 12:45] VITALS: O2SAT 94
--- NOTE | 2023-04-03 15:02 | ECG_ITS ---
The [facility] Test Date: 2023-04-03 Pat Name: FRANCIS GALVEZ Department: Room: - Gender: Male Otolaryngology Physician: : 1990 Requested By: [id number] Order Number: [id number] Reading MD: MARYANNE MCCAIN Measurements Intervals Reading Rate: 96 P: 50 WA: 128 QRS: 136 QRSD: 78 T: 75 QT: 342 QTc: 395 Interpretive Statements 1100 Sinus rhythm Non-Specific T wave inversion in aVL 7100 Abnormal right axis deviation 8003 Consistent with pulmonary disease 9150 abnormal ECG No previous ECG available for comparison Electronically Signed On 04-05-2023 6:26:46 EST by MARYANNE MCCAIN
== END 2023-04-03 12:46 | disposition home or self-care (01) ==
PROVIDERS: Emergency Provider Emergency Medicine Emergency Medical Services
DX: R06.00 Dyspnea, unspecified (principal); Z79.899 Other long term (current) drug therapy; Z99.81 Dependence on supplemental oxygen; Z87.01 Personal history of pneumonia (recurrent); Z90.49 Acquired absence of other specified parts of digestive tract; Z98.890 Other specified postprocedural states; Z87.891 Personal history of nicotine dependence; Z20.822 Contact with and (suspected) exposure to COVID-19
CPT/HCPCS: 0202U; 36415; 71045; 80048; 85025; 93005; 94640; 99284

== ENCOUNTER 2023-04-16 11:26 | Inpatient (IN) | payer MEDICARE, MEDICAID, SELFPAY ==
[2023-04-16] VITALS (17 sets, daily range): BP systolic 100–125; BP diastolic 56–81; PULSE 85–127; RESP 15–28; TEMP 36.8–37.1; O2SAT 88–99; BMI 21.6; BMI 21.4
--- NOTE | 2023-04-16 11:36 | ECG_ITS ---
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
--- NOTE | 2023-04-16 11:36 | XR_ITS ---
The [address] [address] Patient Name: FRANCIS GALVEZ MRN: [id number] date: 1990 Sex: M Assigned Patient Location: ED.MAIN Current Patient Location: ED.MAIN Accession/Order Number: [id number] Exam Date: 04/16/2023 12:05 Report Date: 04/16/2023 12:23 At the request of: ROSANNA NASCIMENTO Procedure: XR chest 1V EXAMINATION: XR chest 1V HISTORY: shortness of breath , weakness COMPARISON: XR chest 04/03/2023, 02/06/2023, 06/04/2019 FINDINGS: LUNGS: Stable, chronic perihilar prominence bilaterally, greatest involving the right infrahilar region consistent with known consolidation and bronchiectasis. Hyperexpanded lungs. VASCULATURE: No increased pulmonary vasculature. PLEURA: Chronic blunting of left lateral costal phrenic angle likely due to hyperexpansion; no convincing pleural effusion. No pneumothorax. CARDIAC: No cardiomegaly or cardiac silhouette abnormality. MEDIASTINUM: No visible mass or adenopathy. BONES: No fracture or visible bone lesion. OTHER: Negative. XR/XR chest 1V IMPRESSION: 1. Stable chronic changes throughout and known consolidation bronchiectasis within right middle lobe. 2. No appreciable acute cardiopulmonary process. Electronically authenticated by: GUS BANERJEE Date: 04/16/2023 12:23
--- NOTE | 2023-04-16 11:52 | ED.SOB1 ---
HPI - SOB/Dyspnea General Chief Complaint: Shortness of Breath/Dyspnea Stated Complaint: URTI Time Seen by Provider: 04/16/23 11:30 Source: patient Mode of arrival: ambulance Limitations: no limitations History of Present Illness HPI Narrative: Patient with TEF and asthma, who vapes and smokes, was brought in by EMS for treatment of shortness of breath. He said that symptoms began about a week ago with what he thought might be an asthma attack. He has some mild upper airway symptoms of congestion and fluid production. No fever at home. EMS reported that his room air pulse ox was only 76% on their arrival. They immediately placed the patient on oxygen and gave him a duoneb treatment. Peripheral IV was placed and he received Solumedrol 125mg IV. On arrival to our ED the oxygen was removed and his initial pulse ox in our ED was 93% but obtained almost immediately after he was taken off of the oxygen. The patient also told us that for the last 4 days he has had diarrhea. No vomiting or abdominal pain. No blood in stool. No urinary symptoms. The patient sees a investigator internal affairs in [place]. Related Data Home Medications Medication Instructions Recorded Confirmed albuterol sulfate 2.5 mg/3 mL 2.5 mg inhalation QID 01/12/23 04/16/23 (0.083 %) solution for nebulization albuterol sulfate 90 mcg/actuation 2 puff inhalation Q6H PRN 01/12/23 04/16/23 aerosol inhaler shortness of breath or wheezing dicyclomine 10 mg capsule 10 mg PO BID 04/03/23 04/16/23 dexlansoprazole 60 mg 60 mg PO DAILY 04/16/23 04/16/23 capsule,biphase delayed release (Dexilant) Previous Rx's Medication Instructions Recorded hydroxyzine pamoate 25 mg capsule 25 mg PO TID PRN Anxiety #30 caps 03/12/23 Allergies Allergy/AdvReac Type Severity Reaction Status Date / Time Penicillins Allergy Intermediate Verified 04/16/23 11:41 [facility] Medical History Abdominal pain ?R10.9 - Unspecified abdominal pain (ICD-10) Abdominal pain, acute ?R10.9 - Unspecified abdominal pain (ICD-10) 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 (ICD-10) History of gastrostomy tube placement History of home oxygen therapy ?Z99.81 - Dependence on supplemental oxygen (ICD-10) Oxygen desaturation during sleep ?G47.34 - 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) Pneumonia ?J18.9 - Pneumonia, unspecified organism (ICD-10) Surgical History H/O chest tube placement ?Z98.890 - Other specified postprocedural states (ICD-10) History of appendectomy ?Z90.49 - Acquired absence of other specified parts of digestive tract (ICD-10) History of facial surgery ?Z98.890 - Other specified postprocedural states (ICD-10) History of fundoplication ?Z98.890 - Other specified postprocedural states (ICD-10) Family History Mother Family history of diabetes mellitus Family history of hypertension Grandmother Family history of diabetes mellitus Grandfather Family history of myocardial infarction Social History Within the past year, how often did you have a drink containing alcohol: 2-4 times a month Within the past year, how many standard drinks containing alcohol did you have on a typical day: 1 or 2 Within the past year, how often did you have six or more drinks on one occasion: weekly Total score: 3 Score interpretation: A score of 4 or more indicates drinking is likely to affect patient's safety. 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 Known occupational exposures/hazards: No Highest level of school completed/degree received: some college, no degree Are you now , , , , never or living with a partner: In a typical week, how many times do you talk on the telephone with family, friends, or neighbors: 3 or more times per week How often do you get together with friends or relatives: once per week How often do you attend adventism or episcopal services: never Do you belong to any clubs or organizations such as adventism groups unions, fraternal or athletic groups, or school groups: no Total score: 1 Score interpretation: A score of less than or equal to 1 indicates the most socially isolated. Little interest or pleasure in doing things: not at all Feeling down, depressed, or hopeless: not at all Feel stressed/tense/nervous/anxious/difficulty sleeping: not at all Do you think of yourself as: straight/heterosexual Gender Identity: male Exam Narrative Exam Narrative: Nurses notes and vital signs reviewed and patient is not hypoxic. afebrile General: Tachypnea but no distress. Skin: Warm, dry, no pallor noted. No rash. Head: Normocephalic, atraumatic. Neck: Supple, non-tender. no cervical lymphadenopathy Eye: Pupils are equal, round and EOMI. No scleral icterus. Ears, Nose, Mouth, and Throat: TMs are clear bilaterally, mild nasal mucosal hypertrophy. Oral mucosa is moist, no posterior oropharynx erythema or exudate, uvula is mid-line Cardiovascular: Tachycardia. Respiratory: Tachypnea without accessory muscle use. Lungs with expiratory wheezing and rhonchi throughout Chest Wall: no tenderness, crepitus or subcutaneous emphysema Back: No midline thoracic or lumbar vertebral tenderness. No CVA tenderness Musculoskeletal: normal ROM, no calf or popliteal tenderness, no lower extremity edema/swelling GI: Abdomen is soft, non-distended. Normal bowel sounds. No masses appreciated. No tenderness to palpation. No rebound, guarding, or rigidity noted. Neurological: A&O x4. No cranial nerve dysfunction observed. No truncal ataxia. Moves all extremities. Sensation intact. Psychiatric: Cooperative and interactive. Normal mood and affect. Constitutional Vital Signs, click to edit/add: Last Vital Signs Temp 97.1 F L 04/17/23 05:23 Pulse 110 H 04/17/23 05:23 Resp 18 04/17/23 08:00 BP 117/63 04/17/23 05:23 Pulse Ox 92 L 04/17/23 09:00 O2 Del Method Nasal Cannula 04/17/23 09:00 O2 Flow Rate 1 04/17/23 09:00 Course Vital Signs Vital signs: Vital Signs Temperature 98.3 F 04/16/23 11:26 Pulse Rate 101 H 04/16/23 11:26 Respiratory Rate 20 04/16/23 11:26 Blood Pressure 103/79 04/16/23 11:26 Pulse Oximetry 93 L 04/16/23 11:26 Oxygen Delivery Method Room Air 04/16/23 11:26 Temperature 97.1 F L 04/17/23 05:23 Pulse Rate 110 H 04/17/23 05:23 Respiratory Rate 18 04/17/23 08:00 Blood Pressure 117/63 04/17/23 05:23 Pulse Oximetry 92 L 04/17/23 09:00 Oxygen Delivery Method Nasal Cannula 04/17/23 09:00 Oxygen Delivery Flow Rate 1 04/17/23 09:00 MDM - SOB/Dyspnea MDM Narrative Medical decision making narrative: Patient was placed on playground monitor and EKG obtained. Blood drawn and sent for evaluation. was given a DuoNeb treatment in the emergency department. Room pulse ox initially increased to ninety-six percent after treatment. Chest x-ray obtained. Swabs for Covid obtained. WBC 11.8 with lymphocytopenia. BMP unremarkable. Covid CXR with stable chronic changes and known consolidation bronchiectasis within the RML, per radiologist. The patient's O2 sat dropped to 88% while on room air. He was placed on 2LPM NC O2. Call placed to the on-call physician to discuss admission, Dr Elkins agreed to admit the patient, medsurg, observation status. Patient is agreeable to admission Lab Data Attestation: I reviewed the patient's lab results. Labs: Lab Results 04/16/23 04/16/23 Range/Units 11:45 12:06 WBC 11.8 H (4.0-11.0) 10^3/uL RBC 5.08 (4.70-6.10) 10^6/uL Hgb 15.2 (14.0-18.0) g/dL Hct 46.8 (42.0-54.0) % MCV 92.1 (80.0-94.0) fL MCH 29.9 (25.9-34.0) pg MCHC 32.5 (29.9-35.2) g/dL RDW 13.0 (11.0-15.0) % Plt Count 322 (150-450) 10^3/uL MPV 11.0 (9.5-13.5) fL Neut % (Auto) 74.1 (43.0-75.0) % Lymph % (Auto) 15.0 L (20.5-60.0) % [place] % (Auto) 7.4 (1.7-12.0) % Eos % (Auto) 2.3 (0.9-7.0) % Baso % (Auto) 0.9 (0.2-2.0) % Neut # (Auto) 8.7 H (1.4-6.5) 10^3/uL Lymph # (Auto) 1.8 (1.2-3.8) 10^3/uL [place] # (Auto) 0.9 H (0.3-0.8) 10^3/uL Eos # (Auto) 0.3 (0.0-0.7) 10^3/uL Baso # (Auto) 0.1 (0.0-0.1) 10^3/uL Abs Immat Gran (auto) 0.03 (0.00-0.03) 10^3/uL Imm/Tot Granulo (auto) 0.3 (0.0-0.5) % Sodium 142 (136-145) mmol/L Potassium 3.9 (3.5-5.1) mmol/L Chloride 103 (98-107) mmol/L Carbon Dioxide 30.3 (21.0-32.0) mmol/L Anion Gap 12.6 BUN 6.0 L (7.0-18.0) mg/dL Creatinine 0.96 (0.70-1.30) mg/dL Est GFR ( Amer) >60 (>=60) Est GFR (Non-Af Amer) >60 (>=60) BUN/Creatinine Ratio 6.3 Glucose 102 (74-106) mg/dL Calcium 8.4 L (8.5-10.1) mg/dL SARS-CoV-2 (PCR) Negative (NEGATIVE) SARS-CoV-2 RNA (MENDY) Not detected (NOT DETECTE) Imaging Data Chest x-ray: Radiologist's impression: Patient Name: FRANCIS GALVEZ MRN: [id number] date: 1990 Sex: M Assigned Patient Location: ED.MAIN Current Patient Location: ED.MAIN Accession/Order Number: [id number] Exam Date: 04/16/2023 12:05 Report Date: 04/16/2023 12:23 At the request of: ROSANNA NASCIMENTO Procedure: XR chest 1V EXAMINATION: XR chest 1V HISTORY: shortness of breath , weakness COMPARISON: XR chest 04/03/2023, 02/06/2023, 06/04/2019 FINDINGS: LUNGS: Stable, chronic perihilar prominence bilaterally, greatest involving the right infrahilar region consistent with known consolidation and bronchiectasis. Hyperexpanded lungs. VASCULATURE: No increased pulmonary vasculature. PLEURA: Chronic blunting of left lateral costal phrenic angle likely due to hyperexpansion; no convincing pleural effusion. No pneumothorax. CARDIAC: No cardiomegaly or cardiac silhouette abnormality. MEDIASTINUM: No visible mass or adenopathy. BONES: No fracture or visible bone lesion. OTHER: Negative. IMPRESSION: 1. Stable chronic changes throughout and known consolidation bronchiectasis within right middle lobe. 2. No appreciable acute cardiopulmonary process. Electronically authenticated by: GUS BANERJEE Date: 04/16/2023 12:23 ECG Data Attestation: I personally reviewed and interpreted this ECG as follows: Interpretation: EKG interpretation: Emergency Department physician interpretation. Normal sinus rhythm at 84bpm. RVH. no ST segment elevation or depression. Discharge Plan Discharge Chief Complaint: Shortness of Breath/Dyspnea Clinical Impression: Hypoxia, Acute asthma exacerbation Patient Disposition: Admitted as Observation Time of Disposition Decision: 12:30 Discharge Date/Time: 04/16/23 13:12
[2023-04-16] MEDS: IPRATROPIUM/ALBUTEROL SULFATE 3 ML AMPUL.NEB IH ×3 (11:54→23:21)
[2023-04-16] MEDS: 0.9 % SODIUM CHLORIDE 1,000 ML 999 ML IV (12:00)
[2023-04-16 12:02] LABS: Anion Gap 12.6; BUN Creatinine Ratio 6.3; Calcium 8.4 mg/dL (8.5-10.1); Carbon Dioxide 30.3 mmol/L (21.0-32.0); Chloride 103 mmol/L (98-107); Estimated GFR (African America >60 (>=60); Estimated GFR (Non-African Ame >60 (>=60); Glucose 102 mg/dL (74-106); Potassium 3.9 mmol/L (3.5-5.1); Sodium 142 mmol/L (136-145)
[2023-04-16 12:16] LABS: Basophils Absolute Auto 0.1 10^3/uL (0.0-0.1); Basophils Percent Auto 0.9 % (0.2-2.0); Eosinophils Absolute Auto 0.3 10^3/uL (0.0-0.7); Eosinophils Percent Auto 2.3 % (0.9-7.0); Hematocrit 46.8 % (42.0-54.0); Hemoglobin 15.2 g/dL (14.0-18.0); Immature Granulocytes Abs Auto 0.03 10^3/uL (0.00-0.03); Immature Granulocytes Pct Auto 0.3 % (0.0-0.5); Lymphocytes Absolute Auto 1.8 10^3/uL (1.2-3.8); Mean Corpuscular HGB Conc 32.5 g/dL (29.9-35.2); Mean Corpuscular Hemoglobin 29.9 pg (25.9-34.0); Mean Corpuscular Volume 92.1 fL (80.0-94.0); Monocytes Absolute Auto 0.9 10^3/uL (0.3-0.8); Monocytes Percent Auto 7.4 % (1.7-12.0); Neutrophils Absolute Auto 8.7 10^3/uL (1.4-6.5); Neutrophils Percent Auto 74.1 % (43.0-75.0); Platelet Count 322 10^3/uL (150-450); Red Blood Count 5.08 10^6/uL (4.70-6.10); White Blood Count 11.8 10^3/uL (4.0-11.0)
[2023-04-16 12:56] LABS: SARS-CoV-2 Ag NEGATIVE (NEGATIVE)
[2023-04-16] MEDS: METHYLPREDNISOLONE SOD SUCC PF 125 MG/2 ML VIAL IVP ×2 (15:04→20:42)
[2023-04-16] MEDS: 0.9 % SODIUM CHLORIDE 250 ML 10 ML IV (15:05)
[2023-04-16] MEDS: LEVOFLOXACIN IN DEXTROSE 5 % 750 MG/150 ML IV.SOLN 100 MG IV (15:05)
[2023-04-16 15:37] LABS: SARS-CoV-2 NAA NOT DETECTED (NOT DETECTE)
--- NOTE | 2023-04-16 19:56 | P.HP_ITS ---
H&P: HPI History of Present Illness Chief complaint: URTI Narrative: Patient with increasing shortness of breath at home. Presented to the emergency room and found to have acute hypoxia. Treated with aerosols and had some improvement in his breathing, patient admitted for workup and treatment of same. Possible to be noted on x-ray. 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 (ICD-10) History of gastrostomy tube placement History of home oxygen therapy ?Z99.81 - Dependence on supplemental oxygen (ICD-10) Oxygen desaturation during sleep ?G47.34 - 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) Pneumonia ?J18.9 - Pneumonia, unspecified organism (ICD-10) Surgical History H/O chest tube placement ?Z98.890 - Other specified postprocedural states (ICD-10) History of appendectomy ?Z90.49 - Acquired absence of other specified parts of digestive tract (ICD- 10) History of facial surgery ?Z98.890 - Other specified postprocedural states (ICD-10) History of fundoplication ?Z98.890 - Other specified postprocedural states (ICD-10) Family History Mother Family history of diabetes mellitus Family history of hypertension Grandmother Family history of diabetes mellitus Grandfather Family history of myocardial infarction Social History Within the past year, how often did you have a drink containing alcohol: 2-4 times a month Within the past year, how many standard drinks containing alcohol did you have on a typical day: 1 or 2 Within the past year, how often did you have six or more drinks on one occasion: weekly Total score: 3 Score interpretation: A score of 4 or more indicates drinking is likely to affect patient's safety. 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 Known occupational exposures/hazards: No Highest level of school completed/degree received: some college, no degree Are you now , , , , never or living with a partner: In a typical week, how many times do you talk on the telephone with family, friends, or neighbors: 3 or more times per week How often do you get together with friends or relatives: once per week How often do you attend sikhism or jainism services: never Do you belong to any clubs or organizations such as sikhism groups unions, [place] or athletic groups, or school groups: no Total score: 1 Score interpretation: A score of less than or equal to 1 indicates the most socially isolated. Little interest or pleasure in doing things: not at all Feeling down, depressed, or hopeless: not at all Feel stressed/tense/nervous/anxious/difficulty sleeping: not at all Do you think of yourself as: straight/heterosexual Gender Identity: male Meds Home Medications and Allergies Home Medications Medication Instructions Recorded Confirmed Type albuterol sulfate 2.5 mg/3 mL 2.5 mg inhalation QID 01/12/23 04/16/23 History (0.083 %) solution for nebulization albuterol sulfate 90 mcg/actuation 2 puff inhalation Q6H PRN 01/12/23 04/16/23 History aerosol inhaler shortness of breath or wheezing hydroxyzine pamoate 25 mg capsule 25 mg PO TID PRN Anxiety #30 caps 03/12/23 04/16/23 Rx dicyclomine 10 mg capsule 10 mg PO BID 04/03/23 04/16/23 History dexlansoprazole 60 mg 60 mg PO DAILY 04/16/23 04/16/23 History capsule,biphase delayed release (Dexilant) Allergies Allergy/AdvReac Type Severity Reaction Status Date / Time Penicillins Allergy Intermediate Verified 04/16/23 11:41 Exam Constitutional Vital Signs, click to edit/add: Last Vital Signs Temp 98.5 F 04/16/23 13:24 Pulse 122 H 04/16/23 17:21 Resp 20 04/16/23 13:24 BP 125/81 04/16/23 13:24 Pulse Ox 94 L 04/16/23 17:21 O2 Del Method Nasal Cannula 04/16/23 17:21 O2 Flow Rate 2 04/16/23 17:21 Documenting provider has reviewed patient's vital signs: yes Common normals: apparent distress General appearance: not comfortable Chest Common normals: inspection of chest normal Respiratory Common normals: abnormal respiratory effort Auscultation: rhonchi and wheezes; no rales and no egophony Cardio Common normals: regular rate and regular rhythm Results Labs Labs: Short CBC 04/16/23 Range/Units 11:45 WBC 11.8 H (4.0-11.0) 10^3/uL Hgb 15.2 (14.0-18.0) g/dL Hct 46.8 (42.0-54.0) % Plt Count 322 (150-450) 10^3/uL BMP 04/16/23 11:45 Sodium 142 Potassium 3.9 Chloride 103 Carbon Dioxide 30.3 BUN 6.0 L Creatinine 0.96 Glucose 102 Calcium 8.4 L Assessment and Plan Assessment and Plan (1) Hypoxia: (2) Bronchitis: (3) Acute asthma exacerbation: (4) Leukocytosis: Plan Sinus tachycardia, respiratory distress, acute hypoxia, leukocytosis secondary to acute exacerbation of asthma from acute right middle lobe pneumonia-his bronchiectasis in this area is a difficult to determine with but with other symptoms as outlined previously this is the most likely scenario for his shortness of breath. IV antibiotics, aerosol treatments, monitor daily Generalized anxiety disorder-continue home medications Irritable bowel syndrome-continue with home medications *Patient is observation status. If unable to wean off of supplemental oxygen during the day will need to maintain as inpatient. Will reevaluate status tomorrow.
[2023-04-16] MEDS: L. ACIDOPHILUS/L.BULGARICUS 1 PACKET GRAN.PACK PO (20:42)
[2023-04-16 22:19] LABS: Adenovirus NOT DETECTED (NOT DETECTE); Bordetella parapertussis NOT DETECTED (NOT DETECTE); Coronavirus 229E NOT DETECTED (NOT DETECTE); Coronavirus HKU1 NOT DETECTED (NOT DETECTE); Coronavirus NL63 NOT DETECTED (NOT DETECTE); Coronavirus OC43 NOT DETECTED (NOT DETECTE); Human Metapneumovirus NOT DETECTED (NOT DETECTE); Human Rhinovirus/Enterovirus NOT DETECTED (NOT DETECTE); Influenza A NOT DETECTED (NOT DETECTE); Influenza B NOT DETECTED (NOT DETECTE); Mycoplasma pneumoniae NOT DETECTED (NOT DETECTE); Parainfluenza Virus 1 NOT DETECTED (NOT DETECTE); Parainfluenza Virus 2 NOT DETECTED (NOT DETECTE); Parainfluenza Virus 3 NOT DETECTED (NOT DETECTE); Parainfluenza Virus 4 NOT DETECTED (NOT DETECTE); Respiratory Syncytial Virus NOT DETECTED (NOT DETECTE); SARS-CoV-2 NOT DETECTED (NOT DETECTE)
[2023-04-17] VITALS (11 sets, daily range): BP systolic 114–122; BP diastolic 63–70; PULSE 110–127; RESP 18–20; TEMP 36.2–36.8; O2SAT 92–96
[2023-04-17] MEDS: METHYLPREDNISOLONE SOD SUCC PF 125 MG/2 ML VIAL IVP ×4 (02:19→20:11)
[2023-04-17] MEDS: IPRATROPIUM/ALBUTEROL SULFATE 3 ML AMPUL.NEB IH ×4 (04:00→23:27)
[2023-04-17 05:55] LABS: Basophils Percent Auto 0.1 % (0.2-2.0); Hematocrit 42.5 % (42.0-54.0); Hemoglobin 13.9 g/dL (14.0-18.0); Immature Granulocytes Abs Auto 0.02 10^3/uL (0.00-0.03); Immature Granulocytes Pct Auto 0.2 % (0.0-0.5); Lymphocytes Absolute Auto 0.4 10^3/uL (1.2-3.8); Lymphocytes Percent Auto 4.6 % (20.5-60.0); Mean Corpuscular HGB Conc 32.7 g/dL (29.9-35.2); Mean Corpuscular Hemoglobin 29.8 pg (25.9-34.0); Monocytes Absolute Auto 0.1 10^3/uL (0.3-0.8); Monocytes Percent Auto 1.1 % (1.7-12.0); Neutrophils Absolute Auto 8.4 10^3/uL (1.4-6.5); Platelet Count 285 10^3/uL (150-450); Red Blood Count 4.67 10^6/uL (4.70-6.10); Red Cell Distribution Width 12.8 % (11.0-15.0); White Blood Count 8.9 10^3/uL (4.0-11.0)
[2023-04-17] MEDS: L. ACIDOPHILUS/L.BULGARICUS 1 PACKET GRAN.PACK PO ×2 (09:06→20:11)
--- NOTE | 2023-04-17 09:16 | CM.NOTE ---
Rounds made with Dr. Hoy. Smith states he wears oxygen 3L/NC at HS at home. No plan for discharge today.
--- NOTE | 2023-04-17 09:32 | XR_ITS ---
[facility] [place] [address] Patient Name: FRANCIS GALVEZ MRN: [id number] date: 1990 Sex: M Assigned Patient Location: [place] Current Patient Location: [place] Accession/Order Number: [id number] Exam Date: 04/17/2023 09:49 Report Date: 04/17/2023 10:06 At the request of: MARYANNE MCCAIN Procedure: XR chest 2V EXAMINATION: XR chest 2V 04/17/2023 7:04 AM PST, [id number]. HISTORY: follow up abn er xr ay TECHNIQUE: 2 views of the chest were acquired. COMPARISONS: Chest x-ray 04/16/[address] chest 02/06/2023 FINDINGS: Lines/tubes/other: None. Heart and mediastinum: Stable. Bones: No acute osseous abnormality. Lungs: Bilateral perihilar prominent streaky opacification and bronchiectasis, mildly improved in the right perihilar region compared with 04/16/2023. No pulmonary edema. Pleura: Mild blunting of bilateral costophrenic angles, similar. No pneumothorax. Other: No pneumoperitoneum. XR/XR chest 2V IMPRESSION: Right perihilar opacification appears mildly improved. Electronically authenticated by: NEREYDA KAUFMAN Date: 04/17/2023 10:06
--- NOTE | 2023-04-17 09:33 | PM.PN ---
Progress Note: Subjective Subjective Interval history: Patient did not feel significantly improved from the previous day. We have been able to wean the oxygen somewhat though. Exam Constitutional Vital Signs, click to edit/add: Last Vital Signs Temp 97.1 F L 04/17/23 05:23 Pulse 110 H 04/17/23 05:23 Resp 18 04/17/23 08:00 BP 117/63 04/17/23 05:23 Pulse Ox 92 L 04/17/23 09:00 O2 Del Method Nasal Cannula 04/17/23 09:00 O2 Flow Rate 1 04/17/23 09:00 Documenting provider has reviewed patient's vital signs: yes Common normals: apparent distress General appearance: not comfortable Chest Common normals: inspection of chest normal Respiratory Common normals: abnormal respiratory effort Auscultation: rhonchi and wheezes; no rales and no egophony Cardio Common normals: regular rate and regular rhythm Progress Note: Objective Labs Labs: Short CBC 04/16/23 04/17/23 Range/Units 11:45 04:45 WBC 11.8 H 8.9 (4.0-11.0) 10^3/uL Hgb 15.2 13.9 L (14.0-18.0) g/dL Hct 46.8 42.5 (42.0-54.0) % Plt Count 322 285 (150-450) 10^3/uL BMP 04/16/23 11:45 Sodium 142 Potassium 3.9 Chloride 103 Carbon Dioxide 30.3 BUN 6.0 L Creatinine 0.96 Glucose 102 Calcium 8.4 L Progress Note: A&P Assessment and Plan (1) Hypoxia: Plan See history and physical for more complete details. Patient not improved significantly. Still requiring supplemental oxygen. Continue with medication as they were discharged yesterday. Change patient to inpatient status.
[2023-04-17] MEDS: OMEPRAZOLE 40 MG CAPSULE.DR PO (10:40)
[2023-04-17] MEDS: DICYCLOMINE HCL 10 MG CAPSULE PO ×2 (10:40→20:11)
[2023-04-17] MEDS: HYDROXYZINE PAMOATE 25 MG CAPSULE PO (10:42)
[2023-04-17 15:19] LABS: Adenovirus F 40/41 NOT DETECTED (NOT DETECTE); Astrovirus NOT DETECTED (NOT DETECTE); Campylobacter NOT DETECTED (NOT DETECTE); Cryptosporidium NOT DETECTED (NOT DETECTE); Cyclospora cayetanensis NOT DETECTED (NOT DETECTE); Entamoeba histolytica NOT DETECTED (NOT DETECTE); Enteroaggregative E.coli NOT DETECTED (NOT DETECTE); Enteropathogenic E.coli NOT DETECTED (NOT DETECTE); Enterotoxigenic E. coli NOT DETECTED (NOT DETECTE); Giardia lamblia NOT DETECTED (NOT DETECTE); Plesiomonas shigelloides NOT DETECTED (NOT DETECTE); Rotavirus A NOT DETECTED (NOT DETECTE); Salmonella NOT DETECTED (NOT DETECTE); Sapovirus NOT DETECTED (NOT DETECTE); Shiga-like toxin-producing E.C NOT DETECTED (NOT DETECTE); Shigella/Enteroinvasive E.coli NOT DETECTED (NOT DETECTE); Vibrio NOT DETECTED (NOT DETECTE); Vibrio cholerae NOT DETECTED (NOT DETECTE); Yersinia enterocolitica NOT DETECTED (NOT DETECTE)
[2023-04-17] MEDS: LEVOFLOXACIN IN DEXTROSE 5 % 750 MG/150 ML IV.SOLN 100 MG IV (15:35)
[2023-04-17] MEDS: 0.9 % SODIUM CHLORIDE 250 ML 10 ML IV (15:36)
[2023-04-17] MEDS: ACETAMINOPHEN 500 MG TABLET 1000 MG PO (15:36)
[2023-04-17 16:53] LABS: Norovirus GI/GII DETECTED (NOT DETECTE)
--- NOTE | 2023-04-18 01:14 | PC.NURSE ---
Patient c/o chest pain. Worsted Winder noticed chewing tobacco on bedside table. Patient asked if he was using and reported that he was. Worsted Winder locked snuff in drawer. Heart rate at 126
[2023-04-18] MEDS: METHYLPREDNISOLONE SOD SUCC PF 125 MG/2 ML VIAL IVP ×2 (02:19→08:55)
[2023-04-18 04:41] VITALS: O2SAT 94
[2023-04-18] MEDS: IPRATROPIUM/ALBUTEROL SULFATE 3 ML AMPUL.NEB IH ×2 (04:41→11:31)
[2023-04-18 05:03] VITALS: BP 127/67; PULSE 112; RESP 18; TEMP 36.6; O2SAT 90
[2023-04-18] MEDS: OMEPRAZOLE 40 MG CAPSULE.DR PO (05:34)
[2023-04-18 05:39] LABS: Hematocrit 42.2 % (42.0-54.0); Mean Corpuscular HGB Conc 33.2 g/dL (29.9-35.2); Mean Corpuscular Hemoglobin 29.7 pg (25.9-34.0); Mean Corpuscular Volume 89.6 fL (80.0-94.0); Mean Platelet Volume 11.8 fL (9.5-13.5); Platelet Count 341 10^3/uL (150-450); Red Blood Count 4.71 10^6/uL (4.70-6.10); Red Cell Distribution Width 13.1 % (11.0-15.0); White Blood Count 18.3 10^3/uL (4.0-11.0)
[2023-04-18 06:18] LABS: Atypical Lymphocytes Abs Man 0.5; Band Neutrophils Absolute 0.4 10^3/uL (0.0-0.3); Lymphocytes Absolute Manual 0.18 10^3/uL (1.20-3.80); Monocytes Absolute Manual 0.91 10^3/uL (0.30-0.80); Segmented Neut Absolute Manual 16.28 10^3/uL (1.4-6.5)
[2023-04-18 08:00] VITALS: RESP 20
--- NOTE | 2023-04-18 08:49 | P.DS_ITS ---
DS: Providers Provider Date of admission: 04/17/23 10:35 Primary care physician: Non-Staff Physician, DS: Diagnosis Discharge Diagnosis (1) Hypoxia: Plan Sinus tachycardia, respiratory distress, acute hypoxia, leukocytosis secondary to acute exacerbation of asthma from acute right middle lobe pneumonia Generalized anxiety disorder Irritable bowel syndrome-with norovirus DS: Summary Hospital Course Hospital Course: Patient presented to the emergency room with increasing shortness of breath and wheezing. Found to have right middle lobe pneumonia. Also severe diarrhea. Stool sample ended up returning positive for norovirus. Unable to obtain sputum culture for the right middle lobe pneumonia. This is severity of symptoms he was initially placed in observation bed and hope of aggressive treatment with improvement back to his baseline of no supplemental oxygen. This was ineffective. He still requires supplemental oxygen as of yesterday. He did do well overnight and was able to be weaned off of his supplemental oxygen at this point. At this point we can discharge him safely to home in improving condition with right middle lobe pneumonia and [place] virus. Patient will not need supplemental oxygen at home. He has his inhalers at home for his asthma will send patient home with tapering doses of steroids and antibiotics. Medications to this. Follow-up with PCP within the next week. Time Spent with Patient Time attestation: Total time spent providing and/or coordinating discharge services: Exam Constitutional Vital Signs, click to edit/add: Last Vital Signs Temp 98 F 04/18/23 05:03 Pulse 112 H 04/18/23 05:03 Resp 20 04/18/23 08:00 BP 127/67 04/18/23 05:03 Pulse Ox 90 L 04/18/23 05:03 O2 Del Method Room Air 04/18/23 05:03 O2 Flow Rate 1 04/17/23 13:23 Documenting provider has reviewed patient's vital signs: yes Common normals: apparent distress General appearance: not comfortable Chest Common normals: inspection of chest normal Respiratory Common normals: normal respiratory effort Auscultation: rales and rhonchi (But much improved); no wheezes and no egophony Cardio Common normals: regular rate and regular rhythm DS: Data Data Completed and Pending Labs on day of discharge: Labs from last 24 hours 04/18/23 04/17/23 04:41 14:40 WBC 18.3 H RBC 4.71 Hgb 14.0 Hct 42.2 MCV 89.6 MCH 29.7 MCHC 33.2 RDW 13.1 Plt Count 341 MPV 11.8 Seg Neuts % (Manual) 89.0 Band Neutrophils % 2.0 Lymphocytes % (Manual) 1.0 L Atypical Lymphs % (Man) 3.0 Monocytes % (Manual) 5.0 Eosinophils % (Manual) 0.0 L Basophils % (Manual) 0.0 L Neutrophils # (Manual) 16.28 H Band Neutrophils # 0.4 H Lymphocytes # (Manual) 0.18 L Abs Atypical Lymphs Man 0.5 Monocytes # (Manual) 0.91 H Eosinophils # (Manual) 0.00 Basophils # (Manual) 0.00 Stl C. cayetanensis PCR Not detected Stool Rotavirus (PCR) Not detected Stool Adenovirus (PCR) Not detected Stool Astrovirus (PCR) Not detected Stool Campylobacter PCR Not detected Stool Cryptosporidium PCR Not detected St Sh/Enteroin Ecoli PCR Not detected Stl Enterotoxigenic E PCR Not detected Stool EPEC (PCR) Not detected Stl E. histolytica PCR Not detected Stool Giardia Lamblia PCR Not detected Stl P. shigelloides PCR Not detected Stool Salmonella PCR Not detected Stool Sapovirus (PCR) Not detected Stl Shiga-like Tx [address].enterocolitica PCR Not detected Stl Vibrio cholerae PCR Not detected Stl Enteroaggr Ecoli PCR Not detected Stl Norovirus GI/GII PCR Detected A C. difficile Toxin A&B Not detected Vibrio Culture Not detected Discharge Plan Discharge Disposition: Home, Self-Care Condition: Good Discharge Medications: New prednisone 10 mg tablet 50 mg PO DAILY Qty: 47 0RF Rx Instructions: 5/day for 3 days. 4/day for 3 days, 3/day for 3 days, 2/day for 3 days, 1/day for 3 days, 1/2 /day for 4 days levofloxacin 500 mg tablet 500 mg PO DAILY 7 Days Qty: 7 0RF benzonatate 200 mg capsule 200 mg PO TID PRN (Reason: cough) Qty: 20 0RF Continued albuterol sulfate 90 mcg/actuation HFA aerosol inhaler 2 puff INHALATION Q6H PRN (Reason: shortness of breath or wheezing) albuterol sulfate 2.5 mg /3 mL (0.083 %) solution for nebulization 2.5 mg inhalation QID dexlansoprazole [Dexilant] 60 mg capsule,biphase delayed releas 60 mg PO DAILY hydroxyzine pamoate 25 mg Capsule 25 mg PO TID PRN (Reason: Anxiety) Qty: 30 0RF dicyclomine 10 mg capsule 10 mg PO BID Patient Instructions: Benzonatate (By mouth), Prednisone (By mouth), Levofloxacin (By mouth), Gastroenteritis (DC), Hypoxia (GEN), Pneumonia (DC) Forms: Portal Instructions Follow Up Appointments: Follow up appt. with Naun Underwood NP on Apr. @ 10am office #: [phone] Discharge Date/Time: 04/18/23 12:22
[2023-04-18] MEDS: DICYCLOMINE HCL 10 MG CAPSULE PO (08:55)
[2023-04-18] MEDS: L. ACIDOPHILUS/L.BULGARICUS 1 PACKET GRAN.PACK PO (08:55)
--- NOTE | 2023-04-18 09:29 | CM.NOTE ---
Rounds made with Dr. Elkins. Plan for discharge today. Scripts to [facility].
--- NOTE | 2023-04-18 10:10 | CM.NOTE ---
Important Message From Medicare discussed with pt, pt verbalizes understanding and signs paper. Pt was changed to inpt 04/18/23. Original given to pt and copy placed on pt's chart.
[2023-04-18 11:32] VITALS: PULSE 115; O2SAT 93
--- NOTE | 2023-04-23 11:21 | CM.DCFOLLOWU ---
First attempt at discharge follow up call today and call went directly to [facility]. Unable to reach patient at this time.
== END 2023-04-18 12:22 | disposition home or self-care (01) | DRG 194 ==
LOC: ER 12:50 → MS 13:05
PROVIDERS: Admitting Provider Family Medicine; Emergency Provider Emergency Medicine; Visit Provider Family Medicine
DX: J18.9 Pneumonia, unspecified organism (principal); A08.11 Acute gastroenteropathy due to Norwalk agent; J45.901 Unspecified asthma with (acute) exacerbation; R00.0 Tachycardia, unspecified; R06.03 Acute respiratory distress; R09.02 Hypoxemia; F41.1 Generalized anxiety disorder; Z79.899 Other long term (current) drug therapy; Z87.891 Personal history of nicotine dependence; G47.34 Idiopathic sleep related nonobstructive alveolar hypoventilation; K58.0 Irritable bowel syndrome with diarrhea; J47.9 Bronchiectasis, uncomplicated
CPT/HCPCS: 0202U; 36415; 71045; 71046; 80048; 85025; 85027; 87070; 87150; 87186; 87205; 87507; 87635; 87811; 93005; 94640; 94667; 94668; 94761; 96365; 96366; 96375; 96376; 99285; G0378; J2930

== ENCOUNTER 2023-05-08 15:31 | Emergency (ER) | payer MEDICARE, MEDICAID, SELFPAY ==
--- NOTE | 2023-05-08 15:32 | XR_ITS ---
[address] [address] Patient Name: FRANCIS GALVEZ MRN: [id number] date: 1990 Sex: M Assigned Patient Location: ED.MAIN Current Patient Location: ER Accession/Order Number: [id number] Exam Date: 05/08/2023 15:50 Report Date: 05/08/2023 16:47 At the request of: RON MARTINEZ Procedure: XR chest 1V EXAM: XR chest 1V HISTORY: Shortness of breath COMPARISON: Chest CT 02/06/2023, Chest x-rays 04/17/2023 and 04/16/2023 TECHNIQUE: Portable chest FINDINGS: IMPRESSION: Stable chronic changes when compared with the prior studies. No visualized acute abnormality Electronically authenticated by: NEMO CADEAN Date: 05/08/2023 16:47
--- NOTE | 2023-05-08 15:32 | ECG_ITS ---
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
[2023-05-08 15:34] VITALS: BP 113/81; PULSE 91; RESP 18; TEMP 36.9; O2SAT 92; BMI 21.9
--- NOTE | 2023-05-08 15:42 | ED_ITS ---
HPI - SOB/Dyspnea General Chief Complaint: Shortness of Breath/Dyspnea Stated Complaint: SHORTNESS OF BREATH Time Seen by Provider: 05/08/23 15:32 Source: patient Mode of arrival: walk-in Limitations: no limitations History of Present Illness HPI Narrative: Patient is a 32-year-old male well-known to this emergency department for chronic COPD, asthma. He states he was referred by his PCP for increasing shortness of breath over the last 2 to 3 days. He states he completed antibiotics and steroids 1 week ago for pneumonia, he is concerned he may not have completely cleared the infection. He denies fevers. No hemoptysis. He denies nausea or vomiting. He states he quit smoking cigarettes 3 to 4 months ago and is no longer using a vape. He states he used a DuoNeb around noon today. Related Data Home Medications Medication Instructions Recorded Confirmed albuterol sulfate 2.5 mg/3 mL 2.5 mg inhalation QID 01/12/23 05/08/23 (0.083 %) solution for nebulization albuterol sulfate 90 mcg/actuation 2 puff inhalation Q6H PRN 01/12/23 05/08/23 aerosol inhaler shortness of breath or wheezing dicyclomine 10 mg capsule 10 mg PO BID 04/03/23 05/08/23 dexlansoprazole 60 mg 60 mg PO DAILY 04/16/23 05/08/23 capsule,biphase delayed release (Dexilant) Previous Rx's Medication Instructions Recorded hydroxyzine pamoate 25 mg capsule 25 mg PO TID PRN Anxiety #30 caps 03/12/23 benzonatate 200 mg capsule 200 mg PO TID PRN cough #20 caps 04/18/23 Allergies Allergy/AdvReac Type Severity Reaction Status Date / Time Penicillins Allergy Intermediate Verified 05/08/23 15:37 Review of Systems ROS Constitutional Denies: fever or chills Ears, nose, mouth, and throat Denies: throat pain or nasal congestion Cardiovascular Denies: chest pain Respiratory Reports: shortness of breath and cough Gastrointestinal Denies: nausea or vomiting Genitourinary Denies: painful urination Musculoskeletal Denies: back pain Integumentary/Breast Denies: rash Neurological Denies: headache Hematologic/Lymphatic Denies: easy bruising PFSH PFSH Medical History Abdominal pain ?R10.9 - Unspecified abdominal pain (ICD-10) Abdominal pain, acute ?R10.9 - Unspecified abdominal pain (ICD-10) 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 (ICD-10) History of gastrostomy tube placement History of home oxygen therapy ?Z99.81 - Dependence on supplemental oxygen (ICD-10) Oxygen desaturation during sleep ?G47.34 - 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) Pneumonia ?J18.9 - Pneumonia, unspecified organism (ICD-10) Surgical History H/O chest tube placement ?Z98.890 - Other specified postprocedural states (ICD-10) History of appendectomy ?Z90.49 - Acquired absence of other specified parts of digestive tract (ICD- 10) History of facial surgery ?Z98.890 - Other specified postprocedural states (ICD-10) History of fundoplication ?Z98.890 - Other specified postprocedural states (ICD-10) Family History Mother Family history of diabetes mellitus Family history of hypertension Grandmother Family history of diabetes mellitus Grandfather Family history of myocardial infarction Social History Within the past year, how often did you have a drink containing alcohol: 2-4 times a month Within the past year, how many standard drinks containing alcohol did you have on a typical day: 1 or 2 Within the past year, how often did you have six or more drinks on one occasion: weekly Total score: 3 Score interpretation: A score of 4 or more indicates drinking is likely to affect patient's safety. 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 Known occupational exposures/hazards: No Highest level of school completed/degree received: some college, no degree Are you now , , , , never or living with a partner: In a typical week, how many times do you talk on the telephone with family, friends, or neighbors: 3 or more times per week How often do you get together with friends or relatives: once per week How often do you attend yarsanism or mu-ism services: never Do you belong to any clubs or organizations such as yarsanism groups unions, fraternal or athletic groups, or school groups: no Total score: 1 Score interpretation: A score of less than or equal to 1 indicates the most socially isolated. Little interest or pleasure in doing things: not at all Feeling down, depressed, or hopeless: not at all Feel stressed/tense/nervous/anxious/difficulty sleeping: not at all Do you think of yourself as: straight/heterosexual Gender Identity: male Exam Narrative Exam Narrative: Gen.: Awake, alert, in no distress Head: Normocephalic, atraumatic ENT: Moist mucous membranes Respiratory: No respiratory distress, speaks in full sentences, inspiratory and expiratory wheezing globally Cardio: Regular rate and rhythm Gastrointestinal: Abdomen is soft, nondistended and nontender to palpation Extremities: Moves extremities equally, no pedal edema Psych: Normal mood and affect Neuro: No focal neuro deficit Skin: Warm, dry, intact Constitutional Vital Signs, click to edit/add: Last Vital Signs Temp 98.5 F 05/08/23 15:34 Pulse 82 05/08/23 17:28 Resp 26 H 05/08/23 17:28 BP 118/66 05/08/23 17:28 Pulse Ox 90 L 05/08/23 17:28 O2 Del Method Room Air 05/08/23 16:18 O2 Flow Rate 2 05/08/23 15:46 Course Vital Signs Vital signs: Vital Signs Temperature 98.5 F 05/08/23 15:34 Pulse Rate 91 H 05/08/23 15:34 Respiratory Rate 18 05/08/23 15:34 Blood Pressure 113/81 05/08/23 15:34 Pulse Oximetry 92 L 05/08/23 15:34 Oxygen Delivery Method Room Air 05/08/23 15:34 Temperature 98.5 F 05/08/23 15:34 Pulse Rate 82 05/08/23 17:28 Respiratory Rate 26 H 05/08/23 17:28 Blood Pressure 118/66 05/08/23 17:28 Pulse Oximetry 90 L 05/08/23 17:28 Oxygen Delivery Method Room Air 05/08/23 16:18 Oxygen Delivery Flow Rate 2 05/08/23 15:46 MDM - SOB/Dyspnea MDM Narrative Medical decision making narrative: Chest x-ray is stable, patient treated with breathing treatment, IV fluids and Solu-Medrol. Labs are also stable in the ER with no evidence of sepsis. Patient has home oxygen, he was encouraged to wear this [id number] for the next 1 to 2 days and continue breathing treatments. He recently finished antibiotics and steroids, as he is frequently on steroid courses from the ER. Patient was reevaluated by attending physician, patient is in agreement to be discharged home, continue breathing treatments and oxygen. Return to the ER if symptoms change or worsen. Medical Records Attestation: I reviewed the patient's medical records. Lab Data Attestation: I reviewed the patient's lab results. Labs: Lab Results 05/08/23 05/08/23 Range/Units 15:33 15:40 WBC 8.8 (4.0-11.0) 10^3/uL RBC 5.11 (4.70-6.10) 10^6/uL Hgb 15.5 (14.0-18.0) g/dL Hct 46.0 (42.0-54.0) % MCV 90.0 (80.0-94.0) fL MCH 30.3 (25.9-34.0) pg MCHC 33.7 (29.9-35.2) g/dL RDW 12.7 (11.0-15.0) % Plt Count 288 (150-450) 10^3/uL MPV 11.1 (9.5-13.5) fL Neut % (Auto) 65.8 (43.0-75.0) % Lymph % (Auto) 21.9 (20.5-60.0) % [place] % (Auto) 8.1 (1.7-12.0) % Eos % (Auto) 2.4 (0.9-7.0) % Baso % (Auto) 1.5 (0.2-2.0) % Neut # (Auto) 5.8 (1.4-6.5) 10^3/uL Lymph # (Auto) 1.9 (1.2-3.8) 10^3/uL [place] # (Auto) 0.7 (0.3-0.8) 10^3/uL Eos # (Auto) 0.2 (0.0-0.7) 10^3/uL Baso # (Auto) 0.1 (0.0-0.1) 10^3/uL Abs Immat Gran (auto) 0.03 (0.00-0.03) 10^3/uL Imm/Tot Granulo (auto) 0.3 (0.0-0.5) % PT 10.6 (9.0-11.6) sec INR 1.00 Sodium 142 (136-145) mmol/L Potassium 3.4 L (3.5-5.1) mmol/L Chloride 103 (98-107) mmol/L Carbon Dioxide 28.5 (21.0-32.0) mmol/L Anion Gap 13.9 BUN 7.0 (7.0-18.0) mg/dL Creatinine 0.88 (0.70-1.30) mg/dL Est GFR ( Amer) >60 (>=60) Est GFR (Non-Af Amer) >60 (>=60) BUN/Creatinine Ratio 8.0 Glucose 92 (74-106) mg/dL Lactate 0.9 (0.4-2.0) mmol/L Calcium 8.8 (8.5-10.1) mg/dL Magnesium 2.0 (1.8-2.4) mg/dL Total Bilirubin 1.1 H (0.2-1.0) mg/dL Direct Bilirubin 0.2 (0.0-0.2) mg/dL AST 16 (15-37) U/L ALT 22 (16-63) U/L Alkaline Phosphatase 99 (46-116) U/L Troponin I High Sens 6.3 (4.0-76.1) pg/mL NT-Pro-B Natriuret Pep 21.0 (<=450.0) pg/mL Total Protein 7.3 (6.4-8.2) g/dL Albumin 3.9 (3.4-5.0) g/dL Globulin 3.4 g/dL Albumin/Globulin Ratio 1.1 Imaging Data Chest x-ray: Attestation: I have reviewed the pertinent imaging results. Discharge Plan Discharge Chief Complaint: Shortness of Breath/Dyspnea Clinical Impression: Shortness of breath Patient Disposition: Home, Self-Care Time of Disposition Decision: 17:01 Condition: Good Prescriptions / Home Meds: No Action albuterol sulfate 90 mcg/actuation HFA aerosol inhaler 2 puff INHALATION Q6H PRN (Reason: shortness of breath or wheezing) albuterol sulfate 2.5 mg /3 mL (0.083 %) solution for nebulization 2.5 mg inhalation QID dexlansoprazole [Dexilant] 60 mg capsule,biphase delayed releas 60 mg PO DAILY benzonatate 200 mg capsule 200 mg PO TID PRN (Reason: cough) Qty: 20 0RF hydroxyzine pamoate 25 mg Capsule 25 mg PO TID PRN (Reason: Anxiety) Qty: 30 0RF dicyclomine 10 mg capsule 10 mg PO BID Instructions: Shortness of Breath (ED) Stand Alone Forms: Portal Instructions Referrals: JORDAN PEÑA APRN [Primary Care Provider] - 1 week Discharge Date/Time: 05/08/23 17:20
[2023-05-08 15:45] VITALS: O2SAT 89
[2023-05-08 15:46] VITALS: O2SAT 94
[2023-05-08] MEDS: METHYLPREDNISOLONE SOD SUCC PF 125 MG/2 ML VIAL IVP (15:47)
[2023-05-08] MEDS: 0.9 % SODIUM CHLORIDE 1,000 ML 1000 ML IV (15:47)
[2023-05-08 15:54] VITALS: PULSE 82; RESP 20; O2SAT 96
[2023-05-08] MEDS: ALBUTEROL SULFATE 2.5 MG/3 ML VIAL NEB IH (15:54)
[2023-05-08 15:59] LABS: Basophils Absolute Auto 0.1 10^3/uL (0.0-0.1); Basophils Percent Auto 1.5 % (0.2-2.0); Eosinophils Absolute Auto 0.2 10^3/uL (0.0-0.7); Eosinophils Percent Auto 2.4 % (0.9-7.0); Hemoglobin 15.5 g/dL (14.0-18.0); Immature Granulocytes Abs Auto 0.03 10^3/uL (0.00-0.03); Immature Granulocytes Pct Auto 0.3 % (0.0-0.5); Lymphocytes Absolute Auto 1.9 10^3/uL (1.2-3.8); Lymphocytes Percent Auto 21.9 % (20.5-60.0); Mean Corpuscular HGB Conc 33.7 g/dL (29.9-35.2); Mean Corpuscular Hemoglobin 30.3 pg (25.9-34.0); Mean Platelet Volume 11.1 fL (9.5-13.5); Monocytes Absolute Auto 0.7 10^3/uL (0.3-0.8); Monocytes Percent Auto 8.1 % (1.7-12.0); Neutrophils Absolute Auto 5.8 10^3/uL (1.4-6.5); Neutrophils Percent Auto 65.8 % (43.0-75.0); Platelet Count 288 10^3/uL (150-450); Red Blood Count 5.11 10^6/uL (4.70-6.10); Red Cell Distribution Width 12.7 % (11.0-15.0); White Blood Count 8.8 10^3/uL (4.0-11.0)
[2023-05-08 16:12] LABS: Prothrombin Time 10.6 sec (9.0-11.6)
[2023-05-08 16:15] LABS: Alanine Aminotransferase 22 U/L (16-63); Albumin Globulin Ratio 1.1; Albumin Level 3.9 g/dL (3.4-5.0); Alkaline Phosphatase 99 U/L (46-116); Anion Gap 13.9; Aspartate Amino Transferase 16 U/L (15-37); Bilirubin Total 1.1 mg/dL (0.2-1.0); Calcium 8.8 mg/dL (8.5-10.1); Carbon Dioxide 28.5 mmol/L (21.0-32.0); Chloride 103 mmol/L (98-107); Estimated GFR (African America >60 (>=60); Estimated GFR (Non-African Ame >60 (>=60); Globulin 3.4 g/dL; Glucose 92 mg/dL (74-106); Potassium 3.4 mmol/L (3.5-5.1); Sodium 142 mmol/L (136-145); Total Protein 7.3 g/dL (6.4-8.2)
[2023-05-08 16:16] LABS: Lactate/Lactic Acid 0.9 mmol/L (0.4-2.0)
[2023-05-08 16:18] VITALS: O2SAT 90
[2023-05-08 16:21] LABS: Troponin I High Sensitivity 6.3 pg/mL (4.0-76.1)
[2023-05-08 17:14] LABS: Bilirubin Direct 0.2 mg/dL (0.0-0.2)
[2023-05-08] MEDS: POTASSIUM CHLORIDE 10 MEQ ER TABLET 40 MEQ PO (17:23)
[2023-05-08 17:28] VITALS: BP 118/66; PULSE 82; RESP 26; O2SAT 90
== END 2023-05-08 17:20 | disposition home or self-care (01) ==
PROVIDERS: Physician Assistant; Emergency Provider Emergency Medicine; PCP Nurse Practitioner Primary Care
DX: R06.02 Shortness of breath (principal); Z87.01 Personal history of pneumonia (recurrent); Z87.891 Personal history of nicotine dependence; G47.34 Idiopathic sleep related nonobstructive alveolar hypoventilation; Z99.81 Dependence on supplemental oxygen; J44.9 Chronic obstructive pulmonary disease, unspecified
CPT/HCPCS: 36415; 71045; 80053; 82248; 83605; 83735; 83880; 84484; 85025; 85610; 93005; 94640; 96374; 99285; J2930

== ENCOUNTER 2023-05-15 10:11 | Observation (INO) | payer MEDICARE, MEDICAID, SELFPAY ==
[2023-05-15] VITALS (24 sets, daily range): BP systolic 114–142; BP diastolic 70–85; PULSE 93–121; RESP 18–29; TEMP 36–37.3; O2SAT 89–98; BMI 21.9; BMI 21.2
--- NOTE | 2023-05-15 10:24 | ECG_ITS ---
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
--- NOTE | 2023-05-15 10:29 | PC.NURSE ---
Oxygen applied at 2 LPM/NC as patient pulse ox 89-91% on room air.
--- NOTE | 2023-05-15 10:31 | XR_ITS ---
The [address] [address] Patient Name: FRANCIS GALVEZ MRN: [id number] date: 1990 Sex: M Assigned Patient Location: ER Current Patient Location: ER Accession/Order Number: [id number] Exam Date: 05/15/2023 10:42 Report Date: 05/15/2023 11:04 At the request of: MARK NIETO Procedure: XR chest 1V EXAM: XR chest 1V HISTORY: SOB COMPARISON: Chest study dated 05/08/2023 , CT chest study dated 02/06/2023 TECHNIQUE: AP view of the chest was obtained with portable technique at 10:37 AM. FINDINGS: Heart and mediastinal contours are unremarkable in appearance. Patchy and consolidated density in the right mid and lower lung field regions compatible with atelectatic, fibrotic and/or infiltrative changes. Mild patchy atelectatic, fibrotic and/or infiltrative changes in the left lower lung field medially. Mild hyperinflation. Bronchiectatic changes noted bilaterally on the CT study assumed similar on present exam. Mild pleural thickening in the left lung base. Findings are similar to the plain film and CT studies. No obvious pneumothorax. Bony structures appear grossly intact. XR/XR chest 1V IMPRESSION: Mild hyperinflation. Bilateral densities greater on the right. Consider atelectatic, fibrotic and/or infiltrative changes similar to the prior studies as noted. Electronically authenticated by: NAKUL HASSAN Date: 05/15/2023 11:04
--- NOTE | 2023-05-15 10:34 | ED.SOB1 ---
HPI - SOB/Dyspnea General Chief Complaint: Shortness of Breath/Dyspnea Stated Complaint: SHORTNESS OF BREATH Time Seen by Provider: 05/15/23 10:13 Source: patient Mode of arrival: walk-in Limitations: no limitations History of Present Illness HPI Narrative: 32-year-old male presents for shortness of breath. He states over the past several days he's been coughing some thick green phlegm up and believes he had a fever home but doesn't have a thermometer. He's been using his nebulizer and didn't feel any better today so he came in to get checked. Related Data Home Medications Medication Instructions Recorded Confirmed albuterol sulfate 2.5 mg/3 mL 2.5 mg inhalation QID 01/12/23 05/15/23 (0.083 %) solution for nebulization albuterol sulfate 90 mcg/actuation 2 puff inhalation Q6H PRN 01/12/23 05/15/23 aerosol inhaler shortness of breath or wheezing dicyclomine 10 mg capsule 10 mg PO BID 04/03/23 05/15/23 dexlansoprazole 60 mg 60 mg PO DAILY 04/16/23 05/15/23 capsule,biphase delayed release (Dexilant) Previous Rx's Medication Instructions Recorded hydroxyzine pamoate 25 mg capsule 25 mg PO TID PRN Anxiety #30 caps 03/12/23 benzonatate 200 mg capsule 200 mg PO TID PRN cough #20 caps 04/18/23 Allergies Allergy/AdvReac Type Severity Reaction Status Date / Time Penicillins Allergy Intermediate Verified 05/15/23 10:16 Review of Systems ROS Narrative A ten point review of systems is negative except as noted above. 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 (ICD-10) History of gastrostomy tube placement History of home oxygen therapy ?Z99.81 - Dependence on supplemental oxygen (ICD-10) Oxygen desaturation during sleep ?G47.34 - 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) Pneumonia ?J18.9 - Pneumonia, unspecified organism (ICD-10) Surgical History H/O chest tube placement ?Z98.890 - Other specified postprocedural states (ICD-10) History of appendectomy ?Z90.49 - Acquired absence of other specified parts of digestive tract (ICD-10) History of facial surgery ?Z98.890 - Other specified postprocedural states (ICD-10) History of fundoplication ?Z98.890 - Other specified postprocedural states (ICD-10) Family History Mother Family history of diabetes mellitus Family history of hypertension Grandmother Family history of diabetes mellitus Grandfather Family history of myocardial infarction Social History Within the past year, how often did you have a drink containing alcohol: 2-4 times a month Within the past year, how many standard drinks containing alcohol did you have on a typical day: 1 or 2 Within the past year, how often did you have six or more drinks on one occasion: weekly Total score: 3 Score interpretation: A score of 4 or more indicates drinking is likely to affect patient's safety. 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 Known occupational exposures/hazards: No Highest level of school completed/degree received: some college, no degree Are you now , , , , never or living with a partner: In a typical week, how many times do you talk on the telephone with family, friends, or neighbors: 3 or more times per week How often do you get together with friends or relatives: once per week How often do you attend adventism or yazidism services: never Do you belong to any clubs or organizations such as adventism groups unions, fraternal or athletic groups, or school groups: no Total score: 1 Score interpretation: A score of less than or equal to 1 indicates the most socially isolated. Little interest or pleasure in doing things: not at all Feeling down, depressed, or hopeless: not at all Feel stressed/tense/nervous/anxious/difficulty sleeping: not at all Do you think of yourself as: straight/heterosexual Gender Identity: male Exam Narrative Exam Narrative: Nurses note and vital signs reviewed and patient is not hypoxic. General: The patient appears dyspneic. Skin: Warm, dry, no pallor noted. There is no rash noted. Head: Normocephalic, atraumatic Eye: Normal conjunctiva, no drainage Ears, Nose, Mouth, and Throat: oral mucosa is moist. Nares patent. Cardiovascular: Regular Rate and Rhythm Respiratory: breath sounds are diminished bilaterally but are equal. He has rhonchi with poor air movement. Back: non-tender GI: Normal bowel sounds, no tenderness to palpation, no masses appreciated. No rebound, guarding, or rigidity noted. Musculoskeletal: The patient has no evidence of calf tenderness, no pitting edema, symmetrical pulses noted bilaterally Neurological: A&O, normal speech Psychiatric: Cooperative Constitutional Vital Signs, click to edit/add: Last Vital Signs Temp 98.2 F 05/15/23 10:16 Pulse 95 H 05/15/23 11:12 Resp 23 05/15/23 11:12 BP 142/76 H 05/15/23 12:00 Pulse Ox 95 05/15/23 11:12 O2 Del Method Room Air 05/15/23 10:22 Course Vital Signs Vital signs: Vital Signs Temperature 98.2 F 05/15/23 10:16 Pulse Rate 115 H 05/15/23 10:16 Respiratory Rate 22 05/15/23 10:16 Blood Pressure 117/85 05/15/23 10:16 Pulse Oximetry 91 L 05/15/23 10:16 Oxygen Delivery Method Room Air 05/15/23 10:16 Temperature 98.2 F 05/15/23 10:16 Pulse Rate 95 H 05/15/23 11:12 Respiratory Rate 05/15/23 11:12 Blood Pressure 142/76 H 05/15/23 12:00 Pulse Oximetry 95 05/15/23 11:12 Oxygen Delivery Method Room Air 05/15/23 10:22 MDM - SOB/Dyspnea MDM Narrative Medical decision making narrative: the patient presents with exacerbation of bronchiectasis and he happened to test positive for coated. The patient reports that several people at his workplace have had Covid recently. He was given IV site Medrol and aerosol treatments and is being admitted. Treatment diagnosis and disposition were discussed with the patient. Differential Diagnosis Differential diagnosis: Likely acute exacerbation of chronic obstructive airways disease, congestive heart failure, community acquired pneumonia and other (Covid, pneumothorax) Lab Data Attestation: I reviewed the patient's lab results. Labs: Lab Results 05/15/23 05/15/23 Range/Units 10:25 10:30 WBC 10.7 (4.0-11.0) 10^3/uL RBC 5.42 (4.70-6.10) 10^6/uL Hgb 16.0 (14.0-18.0) g/dL Hct 47.6 (42.0-54.0) % MCV 87.8 (80.0-94.0) fL MCH 29.5 (25.9-34.0) pg MCHC 33.6 (29.9-35.2) g/dL RDW 12.6 (11.0-15.0) % Plt Count 349 (150-450) 10^3/uL MPV 10.8 (9.5-13.5) fL Seg Neuts % (Manual) 65.0 Lymphocytes % (Manual) 12.0 L (20.5-60.0) % Atypical Lymphs % (Man) 6.0 % Monocytes % (Manual) 15.0 H (1.7-12.0) % Eosinophils % (Manual) 2.0 (0.9-7.0) % Basophils % (Manual) 0.0 L (0.2-2.0) % Neutrophils # (Manual) 6.95 H (1.4-6.5) 10^3/uL Lymphocytes # (Manual) 1.28 (1.20-3.80) 10^3/uL Abs Atypical Lymphs Man 0.64 Monocytes # (Manual) 1.60 H (0.30-0.80) 10^3/uL Eosinophils # (Manual) 0.21 (0.00-0.70) 10^3/uL Basophils # (Manual) 0.00 (0.00-0.10) 10^3/uL Sodium 137 (136-145) mmol/L Potassium 3.9 (3.5-5.1) mmol/L Chloride 100 (98-107) mmol/L Carbon Dioxide 27.4 (21.0-32.0) mmol/L Anion Gap 13.5 BUN 9.0 (7.0-18.0) mg/dL Creatinine 0.85 (0.70-1.30) mg/dL Est GFR ( Amer) >60 (>=60) Est GFR (Non-Af Amer) >60 (>=60) BUN/Creatinine Ratio 10.6 Glucose 113 H (74-106) mg/dL Calcium 8.8 (8.5-10.1) mg/dL SARS-CoV-2 (PCR) Positive A (NEGATIVE) Influenza Type A Ag Negative Influenza Type B Ag Negative Imaging Data Chest x-ray: Radiologist's impression: Procedure: XR chest 1V EXAM: XR chest 1V HISTORY: SOB COMPARISON: Chest study dated 05/08/2023 , CT chest study dated 02/06/2023 TECHNIQUE: AP view of the chest was obtained with portable technique at 10:37 AM. FINDINGS: Heart and mediastinal contours are unremarkable in appearance. Patchy and consolidated density in the right mid and lower lung field regions compatible with atelectatic, fibrotic and/or infiltrative changes. Mild patchy atelectatic, fibrotic and/or infiltrative changes in the left lower lung field medially. Mild hyperinflation. Bronchiectatic changes noted bilaterally on the CT study assumed similar on present exam. Mild pleural thickening in the left lung base. Findings are similar to the plain film and CT studies. No obvious pneumothorax. Bony structures appear grossly intact. IMPRESSION: Mild hyperinflation. Bilateral densities greater on the right. Consider atelectatic, fibrotic and/or infiltrative changes similar to the prior studies as noted. Electronically authenticated by: NAKUL HASSAN Date: 05/15/2023 11:04 Critical Care Time Critical Care Time Critical Care Time: Yes Total Critical Care Time: 35 Attestation: Due to the high probability of sudden and clinically significant deterioration in the patient's condition he/she required the highest level of my preparedness to intervene urgently I provided critical care time including documentation time, medication orders and management, reevaluation, vital sign assessment, ordering and reviewing of lab tests, ordering and reviewing of x-ray studies, and admission orders. Aggregate critical care time is 35 minutes including only time during which I was engaged in work directly related to his/her care and did not include time spent treating other patients simultaneously. Discharge Plan Discharge Chief Complaint: Shortness of Breath/Dyspnea Clinical Impression: COVID-19, Acute exacerbation of bronchiectasis Patient Disposition: Admitted As Inpatient Time of Disposition Decision: 12:27 Condition: Fair Prescriptions / Home Meds: No Action albuterol sulfate 90 mcg/actuation HFA aerosol inhaler 2 puff INHALATION Q6H PRN (Reason: shortness of breath or wheezing) albuterol sulfate 2.5 mg /3 mL (0.083 %) solution for nebulization 2.5 mg inhalation QID dexlansoprazole [Dexilant] 60 mg capsule,biphase delayed releas 60 mg PO DAILY benzonatate 200 mg capsule 200 mg PO TID PRN (Reason: cough) Qty: 20 0RF hydroxyzine pamoate 25 mg Capsule 25 mg PO TID PRN (Reason: Anxiety) Qty: 30 0RF dicyclomine 10 mg capsule 10 mg PO BID Referrals: JORDAN PEÑA APRN [Primary Care Provider] - 1 week
--- NOTE | 2023-05-15 10:39 | PC.NURSE ---
Radiology at bedside for CXR at this time.
[2023-05-15 10:40] LABS: Hematocrit 47.6 % (42.0-54.0); Mean Corpuscular HGB Conc 33.6 g/dL (29.9-35.2); Mean Corpuscular Hemoglobin 29.5 pg (25.9-34.0); Mean Corpuscular Volume 87.8 fL (80.0-94.0); Mean Platelet Volume 10.8 fL (9.5-13.5); Platelet Count 349 10^3/uL (150-450); Red Blood Count 5.42 10^6/uL (4.70-6.10); Red Cell Distribution Width 12.6 % (11.0-15.0); White Blood Count 10.7 10^3/uL (4.0-11.0)
[2023-05-15] MEDS: METHYLPREDNISOLONE SOD SUCC PF 125 MG/2 ML VIAL IVP (10:44)
[2023-05-15 10:45] LABS: Anion Gap 13.5; BUN Creatinine Ratio 10.6; Calcium 8.8 mg/dL (8.5-10.1); Carbon Dioxide 27.4 mmol/L (21.0-32.0); Chloride 100 mmol/L (98-107); Estimated GFR (African America >60 (>=60); Estimated GFR (Non-African Ame >60 (>=60); Glucose 113 mg/dL (74-106); Potassium 3.9 mmol/L (3.5-5.1); Sodium 137 mmol/L (136-145)
[2023-05-15 10:48] LABS: Atypical Lymphocytes Abs Man 0.64; Eosinophils Absolute Manual 0.21 10^3/uL (0.00-0.70); Lymphocytes Absolute Manual 1.28 10^3/uL (1.20-3.80); Segmented Neut Absolute Manual 6.95 10^3/uL (1.4-6.5)
[2023-05-15] MEDS: ALBUTEROL SULFATE 2.5 MG/3 ML VIAL NEB IH (10:52)
[2023-05-15 10:56] LABS: Influenza Virus A Antigen Negative; Influenza Virus B Antigen Negative; Internal Control Within Normal Limits; SARS-CoV-2 Ag POSITIVE (NEGATIVE)
--- NOTE | 2023-05-15 13:05 | P.HP_ITS ---
H&P: HPI History of Present Illness Chief complaint: SHORTNESS OF BREATH, COVID + Narrative: 05/15/23 1240 This is a 32-year-old male patient with a past medical history as outlined below significant for remote history of TEF repair, chronic asthma, and bronchiectasis; who reported to the ED complaining of a 4-day history of URI symptoms and increasing shortness of breath. The patient reports onset of sore throat, lightheadedness, and headache 4 days ago. The following 2 days he noted onset of subjective fevers and chills, cough with green sputum production, nausea vomiting and diarrhea. Today the patient was short of breath even using home O2 24 hours a day (normally only uses 3 L at night). He reported to the ED for further evaluation. Workup in the ED was relatively benign. His O2 sat was 92% on room air with 2 L of O2 placed mainly for patient comfort and work of breathing. His other labs were unremarkable other than a positive COVID 19 swab. Chest x-ray shows right middle and lower lobe atelectasis vs possible infiltrates in the area of known bronchiectasis. At the time of my exam the pt was sitting up on the ED cart eating lunch. He was able to speak in full sentences and was not notably dyspneic. Lungs sounds w/ ronchi throughout, greatest on the R side. He is being admitted in observation to the hospitalist service for nebulized breathing treatments, increased O2 delivery, and IV antibiotics. Review of Systems ROS Status of ROS 10 or more systems reviewed and unremark able except as noted in history and below [facility] Medical History (Updated 05/15/23 @ 14:57 by Faith Vásquez NP) GERD (gastroesophageal reflux disease) ?K21.9 - Gastro-esophageal reflux disease without esophagitis (ICD-10) 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 - Pyothorax with fistula (ICD-10) Shortness of breath ?R06.02 - Shortness of breath (ICD-10) Chronic dyspnea ?R06.09 - Other forms of dyspnea (ICD-10) Viral infection ?B34.9 - Viral infection, unspecified (ICD-10) Abdominal pain ?R10.9 - Unspecified abdominal pain (ICD-10) Hypoxia ?R09.02 - Hypoxemia (ICD-10) Acute asthma exacerbation ?J45.901 - Unspecified asthma with (acute) exacerbation (ICD-10) Bronchitis ?J40 - Bronchitis, not specified as acute or chronic (ICD-10) Leukocytosis ?D72.829 - Elevated white blood cell count, unspecified (ICD-10) History of home oxygen therapy ?Z99.81 - Dependence on supplemental oxygen (ICD-10) Oxygen desaturation during sleep ?G47.34 - 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) History of gastrostomy tube placement 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 (ICD-10) Pneumonia ?J18.9 - Pneumonia, unspecified organism (ICD-10) Abdominal pain ?R10.9 - Unspecified abdominal pain (ICD-10) Abdominal pain, acute ?R10.9 - Unspecified abdominal pain (ICD-10) Surgical History History of fundoplication ?Z98.890 - Other specified postprocedural states (ICD-10) History of appendectomy ?Z90.49 - Acquired absence of other specified parts of digestive tract (ICD- 10) H/O chest tube placement ?Z98.890 - Other specified postprocedural states (ICD-10) History of facial surgery ?Z98.890 - Other specified postprocedural states (ICD-10) Family History Mother Family history of diabetes mellitus Family history of hypertension Grandmother Family history of diabetes mellitus Grandfather Family history of myocardial infarction Social History Within the past year, how often did you have a drink containing alcohol: 2-4 times a month Within the past year, how many standard drinks containing alcohol did you have on a typical day: 1 or 2 Within the past year, how often did you have six or more drinks on one occasion: weekly Total score: 3 Score interpretation: A score of 4 or more indicates drinking is likely to affect patient's safety. 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 Known occupational exposures/hazards: No Highest level of school completed/degree received: some college, no degree Are you now , , , , never or living with a partner: In a typical week, how many times do you talk on the telephone with family, f riends, or neighbors: 3 or more times per week How often do you get together with friends or relatives: once per week How often do you attend sabianist or episcopalian services: never Do you belong to any clubs or organizations such as sabianist groups unions, [employer] or athletic groups, or school groups: no Total score: 1 Score interpretation: A score of less than or equal to 1 indicates the most socially isolated. Little interest or pleasure in doing things: not at all Feeling down, depressed, or hopeless: not at all Feel stressed/tense/nervous/anxious/difficulty sleeping: not at all Do you think of yourself as: straight/heterosexual Gender Identity: male Meds Home Medications and Allergies Home Medications Medication Instructions Recorded Confirmed Type albuterol sulfate 2.5 mg/3 mL 2.5 mg inhalation QID 01/12/23 05/15/23 History (0.083 %) solution for nebulization albuterol sulfate 90 mcg/actuation 2 puff inhalation Q6H PRN 01/12/23 05/15/23 History aerosol inhaler shortness of breath or wheezing dexlansoprazole 60 mg 60 mg PO DAILY 04/16/23 05/15/23 History capsule,biphase delayed release (Dexilant) fluticasone 250 mcg-salmeterol 50 1 inh inhalation BID 05/15/23 05/15/23 History mcg/dose blistr powdr for inhalation (Advair Diskus) Allergies Allergy/AdvReac Type Severity Reaction Status Date / Time Penicillins Allergy Intermediate Verified 05/15/23 10:16 Exam Constitutional Vital Signs, click to edit/add: Last Vital Signs Temp 98.2 F 05/15/23 10:16 Pulse 121 H 05/15/23 12:45 Resp 21 05/15/23 12:45 BP 118/74 05/15/23 12:45 Pulse Ox 95 05/15/23 12:45 O2 Del Method Room Air 05/15/23 10:22 Common normals: no apparent distress, oriented x3, alert and well nourished General appearance: cooperative Orientation/consciousness: Yes awake HENMT Common normals: normocephalic, head/scalp atraumatic, hearing grossly normal bilaterally, external nose normal and moist oral mucous membranes Eye Common normals: PERRL, EOMs intact bilaterally, conjunctivae normal and no scleral icterus Neck & C-Spine Common normals: full ROM, supple and no JVD Chest Common normals: inspection of chest normal Chest: symmetrical chest wall rise Respiratory Common normals: normal respiratory effort, no retractions and no use of accessory muscles Effort & inspection: able to speak in complete sentences Auscultation: rhonchi (Exp throughout, greatest on RML, RLL) and wheezes (Faint EE scattered) Cardio Common normals: no JVD, regular rate, regular rhythm, S1 normal heart sound, S2 normal heart sound, no gallops, no clicks, no murmurs, no rub and peripheral pulses 2+ throughout GI Common normals: Normal to inspection, nondistended, normoactive bowel sounds present, soft to palpation, non-tender, no hepatosplenomegaly, no masses and no bruits Bladder/kidney exam: bladder normal to palpation Back & Pelvis Common normals: thoracic and lumbar spine normal to inspection Extremity Common normals: normal capillary refill and no pedal edema General: normal exam except as noted; no clubbing and no cyanosis Neuro Neno Coma Scale: GCS not evaluated Common normals: CN's II-XII intact bilaterally, moves all extremities, no focal motor deficits and no sensory deficits noted Speech: speech normal Motor exam: strength 5/5 throughout Psych Common normals: mental status grossly normal, thought process normal, affect normal and activity/motor behavior normal Results Labs Labs: Short CBC 05/15/23 Range/Units 10:25 WBC 10.7 (4.0-11.0) 10^3/uL Hgb 16.0 (14.0-18.0) g/dL Hct 47.6 (42.0-54.0) % Plt Count 349 (150-450) 10^3/uL BMP 05/15/23 10:25 Sodium 137 Potassium 3.9 Chloride 100 Carbon Dioxide 27.4 BUN 9.0 Creatinine 0.85 Glucose 113 H Calcium 8.8 Pulse Oximetry Attestation: I have reviewed the pertinent pulse oximetry results. ECG Interpretation: Sinus tachycardia Short MT interval RSR (QR) in lead V1/V2, consistent with right ventricular conduction delay Left posterior fascicular block Artifact present Abnormal ECG Compared to ECG 05/08/2023 Short MT interval not present Left posterior fascicular block now present Sinus rhythm no longer present Right axis deviation no longer present Imaging Chest x-ray: Attestation: I have reviewed the pertinent imaging results. Radiologist's impression: IMPRESSION: Mild hyperinflation. Bilateral densities greater on the right. Consider atelectatic, fibrotic and/or infiltrative changes similar to the prior studies as noted. Assessment and Plan Assessment and Plan (1) Acute exacerbation of bronchiectasis: Assessment and Plan: ACUTE * Adm observation * O2 as needed to keep sats > 90% - wean off as able during the day * Pt chronically uses 3L o2 at [facility] only * Levaquin for suspected bronchitis/pneumonitis - plan 10 day course * Solumedrol 125 x 1 given in ED, follow w/ 60 mg q8h * See Covid 19 below * Duoneb q4h PRN * Possible d/c tomorrow pending clinical course * CBC, CMP in AM (2) COVID-19: Assessment and Plan: ACUTE * Acute onset of symptoms 4 days ago * Positive COVID swab in ED * Continue 5 day course of Paxlovid as initiated in the ED (3) History of home oxygen therapy: Assessment and Plan: CHRONIC * Home O2 use at [facility] w/ 3L (4) GERD (gastroesophageal reflux disease): Assessment and Plan: CHRONIC * Continue home dexilant Qualifiers: Esophagitis presence: esophagitis presence not specified Qualified Code(s): K21.9 - Gastro-esophageal reflux disease without esophagitis
[2023-05-15] MEDS: LEVOFLOXACIN IN DEXTROSE 5 % 750 MG/150 ML IV.SOLN 100 MG IV (17:19)
[2023-05-15] MEDS: METHYLPREDNISOLONE SOD SUCC PF 125 MG/2 ML VIAL 60 MG IVP (17:19)
[2023-05-15] MEDS: ENOXAPARIN SODIUM 40 MG/0.4 ML SYRINGE SUBQ (17:19)
[2023-05-15] MEDS: ALBUTEROL SULFATE 200 PUFF/6.7 GM INHALER IH ×2 (19:51→23:56)
[2023-05-15] MEDS: IPRATROPIUM BROMIDE 200 PUFF/12.9 GM INHALER IH ×2 (19:51→23:57)
[2023-05-15] MEDS: GUAIFENESIN 600 MG TAB.ER.12H PO (21:15)
[2023-05-16] VITALS (9 sets, daily range): BP systolic 124; BP diastolic 68; PULSE 78–110; RESP 16–20; TEMP 36.6; O2SAT 92–99
[2023-05-16] MEDS: METHYLPREDNISOLONE SOD SUCC PF 125 MG/2 ML VIAL 60 MG IVP (00:58)
[2023-05-16] MEDS: ALBUTEROL SULFATE 200 PUFF/6.7 GM INHALER IH ×2 (03:57→07:50)
[2023-05-16] MEDS: IPRATROPIUM BROMIDE 200 PUFF/12.9 GM INHALER IH ×2 (03:57→07:50)
[2023-05-16 05:15] LABS: Basophils Percent Auto 0.1 % (0.2-2.0); Hemoglobin 13.8 g/dL (14.0-18.0); Immature Granulocytes Abs Auto 0.05 10^3/uL (0.00-0.03); Immature Granulocytes Pct Auto 0.6 % (0.0-0.5); Lymphocytes Absolute Auto 0.6 10^3/uL (1.2-3.8); Lymphocytes Percent Auto 6.5 % (20.5-60.0); Mean Corpuscular HGB Conc 33.7 g/dL (29.9-35.2); Mean Corpuscular Hemoglobin 29.5 pg (25.9-34.0); Mean Corpuscular Volume 87.6 fL (80.0-94.0); Mean Platelet Volume 11.2 fL (9.5-13.5); Monocytes Absolute Auto 0.3 10^3/uL (0.3-0.8); Monocytes Percent Auto 3.9 % (1.7-12.0); Neutrophils Absolute Auto 7.6 10^3/uL (1.4-6.5); Neutrophils Percent Auto 88.9 % (43.0-75.0); Platelet Count 307 10^3/uL (150-450); Red Blood Count 4.68 10^6/uL (4.70-6.10); Red Cell Distribution Width 12.2 % (11.0-15.0); White Blood Count 8.5 10^3/uL (4.0-11.0)
[2023-05-16 05:34] LABS: Alanine Aminotransferase 21 U/L (16-63); Albumin Globulin Ratio 0.9; Albumin Level 3.1 g/dL (3.4-5.0); Alkaline Phosphatase 97 U/L (46-116); Anion Gap 12.1; Aspartate Amino Transferase 11 U/L (15-37); BUN Creatinine Ratio 18.5; Bilirubin Total 0.5 mg/dL (0.2-1.0); Calcium 8.9 mg/dL (8.5-10.1); Carbon Dioxide 25.1 mmol/L (21.0-32.0); Chloride 102 mmol/L (98-107); Estimated GFR (African America >60 (>=60); Estimated GFR (Non-African Ame >60 (>=60); Globulin 3.6 g/dL; Glucose 228 mg/dL (74-106); Potassium 4.2 mmol/L (3.5-5.1); Sodium 135 mmol/L (136-145); Total Protein 6.7 g/dL (6.4-8.2)
[2023-05-16] MEDS: OMEPRAZOLE 40 MG CAPSULE.DR PO (05:37)
[2023-05-16] MEDS: GUAIFENESIN 600 MG TAB.ER.12H PO (08:49)
--- NOTE | 2023-05-16 09:04 | P.DS_ITS ---
<Statement entered by Shelton Elkins MD - 05/17/23 05:56> Pt seen and evaluated: agree with input and findingad and plan of care from [facility] add dx of sinus tachycardia secondary to hypoxia and COVID 19 - doubt PE based on quick recovery of the hypoxia. agree with x-ray assesment of RLL, RML pneumonai pt with mild PCM Mild hyponatremia - can follow as oputpt This documentation has been reviewed and approved. DS: Providers Provider Date of admission: 05/15/23 13:04 Primary care physician: JORDAN PEÑA APRN-AUTOMOTIVE PARTS CLERK Discharging clinician: Faith Vásquez DS: Diagnosis Discharge Diagnosis (1) Acute exacerbation of bronchiectasis: (2) COVID-19: (3) History of home oxygen therapy: (4) GERD (gastroesophageal reflux disease): Qualifiers: Esophagitis presence: esophagitis presence not specified Qualified Code(s): K21.9 - Gastro-esophageal reflux disease without esophagitis DS: Summary Hospital Course Hospital Course: The patient was admitted to observation with acute exacerbation of bronchiectasis and COVID-19 infection. He was treated with high-dose steroids, scheduled DuoNebs, and Levaquin for suspected underlying bronchitis/pneumonitis. He was also initiated on a 5-day course of Paxlovid. The patient was initially mildly hypoxic in the ED but this resolved and he is at his baseline home O2 use of 3 L at night only. As his condition is improved and he is at or near baseline, he is being discharged home in stable condition. He has been prescribed Levaquin to complete a 10-day course, Paxlovid to complete a 5-day course, and a Medrol Dosepak. 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 Time Spent with Patient Time attestation: Total time spent providing and/or coordinating discharge services: Time spent: greater than 30 minutes Specific discharge activities: Physical exam, discussion of discharge plan, questions answered. Exam Constitutional Vital Signs, click to edit/add: Last Vital Signs Temp 97.8 F 05/16/23 05:41 Pulse 88 05/16/23 08:00 Resp 18 05/16/23 08:00 BP 124/68 05/16/23 05:41 Pulse Ox 98 05/16/23 07:50 O2 Del Method Nasal Cannula 05/16/23 07:50 O2 Flow Rate 3 05/16/23 07:50 Common normals: no apparent distress, oriented x3 and alert General appearance: cooperative Orientation/consciousness: Yes awake HENMT Common normals: normocephalic and head/scalp atraumatic Eye Common normals: PERRL, EOMs intact bilaterally, conjunctivae normal and no scleral icterus Neck & C-Spine Common normals: no JVD Respiratory Common normals: normal respiratory effort and no use of accessory muscles Effort & inspection: able to speak in complete sentences and symmetric chest movement Cardio Common normals: no JVD, regular rate, regular rhythm, S1 normal heart sound, S2 normal heart sound, no murmurs and peripheral pulses 2+ throughout GI Common normals: Normal to inspection, nondistended, normoactive bowel sounds present, soft to palpation and non-tender Bladder/kidney exam: bladder normal to palpation Extremity Common normals: normal to inspection, full ROM, normal capillary refill and no pedal edema General: no clubbing and no cyanosis Neuro Common normals: moves all extremities, no focal motor deficits and no sensory deficits noted Speech: speech normal Psych Common normals: mental status grossly normal and activity/motor behavior normal DS: Data Data Completed and Pending Labs on day of discharge: Labs from last 24 hours 05/16/23 05/15/23 05/15/23 04:54 10:30 10:25 WBC 8.5 10.7 RBC 4.68 L 5.42 Hgb 13.8 L 16.0 Hct 41.0 L 47.6 MCV 87.6 87.8 MCH 29.5 29.5 MCHC 33.7 33.6 RDW 12.2 12.6 Plt Count 307 349 MPV 11.2 10.8 Neut % (Auto) 88.9 H Lymph % (Auto) 6.5 L Traill % (Auto) 3.9 Eos % (Auto) 0.0 L Baso % (Auto) 0.1 L Neut # (Auto) 7.6 H Lymph # (Auto) 0.6 L Traill # (Auto) 0.3 Eos # (Auto) 0.0 Baso # (Auto) 0.0 Abs Immat Gran (auto) 0.05 H Seg Neuts % (Manual) 65.0 Lymphocytes % (Manual) 12.0 L Atypical Lymphs % (Man) 6.0 Monocytes % (Manual) 15.0 H Eosinophils % (Manual) 2.0 Basophils % (Manual) 0.0 L Imm/Tot Granulo (auto) 0.6 H Neutrophils # (Manual) 6.95 H Lymphocytes # (Manual) 1.28 Abs Atypical Lymphs Man 0.64 Monocytes # (Manual) 1.60 H Eosinophils # (Manual) 0.21 Basophils # (Manual) 0.00 Sodium 135 L 137 Potassium 4.2 3.9 Chloride 102 100 Carbon Dioxide 25.1 27.4 Anion Gap 12.1 13.5 BUN 15.0 9.0 Creatinine 0.81 0.85 Est GFR ( Amer) >60 >60 Est GFR (Non-Af Amer) >60 >60 BUN/Creatinine Ratio 18.5 10.6 Glucose 228 H 113 H Calcium 8.9 8.8 Total Bilirubin 0.5 AST 11 L ALT 21 Alkaline Phosphatase 97 Total Protein 6.7 Albumin 3.1 L Globulin 3.6 Albumin/Globulin Ratio 0.9 SARS-CoV-2 (PCR) Positive A Influenza Type A Ag Negative Influenza Type B Ag Negative Discharge Plan Discharge Disposition: Home, Self-Care Condition: Fair Discharge Medications: New methylprednisolone [Medrol (Daniel)] 4 mg tablets,dose pack 4 mg PO DAILY Qty: 21 0RF levofloxacin 750 mg tablet 750 mg PO DAILY 10 Days Qty: 10 0RF Paxlovid 300 mg (150 mg x 2)-100 mg tablets,dose pack See Rx Instructions .ROUTE .COMPLEX Qty: 30 0RF Rx Instructions: take TWO 150 mg tablets of nirmatrelvir with ONE 100 mg tablet of ritonavir twice daily for 5 days Continued albuterol sulfate 90 mcg/actuation HFA aerosol inhaler 2 puff INHALATION Q6H PRN (Reason: shortness of breath or wheezing) albuterol sulfate 2.5 mg /3 mL (0.083 %) solution for nebulization 2.5 mg inhalation QID dexlansoprazole [Dexilant] 60 mg capsule,biphase delayed releas 60 mg PO DAILY fluticasone propion-salmeterol [Advair Diskus] 250-50 mcg/dose blister with device 1 inh inhalation BID Forms: Portal Instructions Follow Up Appointments: @ 10am with Jordan Peña, [facility] [phone]
--- NOTE | 2023-05-17 12:55 | CM.DCFOLLOWU ---
First attempt at discharge follow up call attempted and call went directly to voicelail. Unable to reach patient at this time.
--- NOTE | 2023-05-18 13:15 | CM.DCFOLLOWU ---
Second discharge follow up call attempted today. No answer at this time, call went to voicemail after 2 rings. Unable to reach patient at this time.
== END 2023-05-16 10:45 | disposition home or self-care (01) ==
LOC: ER 12:27 → MS 05-16 05:15
PROVIDERS: Admitting Provider Family Medicine; Emergency Provider Emergency Medicine; PCP Nurse Practitioner Primary Care; Visit Provider Nurse Practitioner
DX: J47.1 Bronchiectasis with (acute) exacerbation (principal); J18.9 Pneumonia, unspecified organism; U07.1 COVID-19; R00.0 Tachycardia, unspecified; R09.02 Hypoxemia; E44.1 Mild protein-calorie malnutrition; Z99.81 Dependence on supplemental oxygen; K21.9 Gastro-esophageal reflux disease without esophagitis; E87.1 Hypo-osmolality and hyponatremia; Z79.899 Other long term (current) drug therapy; Z98.890 Other specified postprocedural states; Z87.891 Personal history of nicotine dependence; F12.90 Cannabis use, unspecified, uncomplicated; G47.34 Idiopathic sleep related nonobstructive alveolar hypoventilation; Z68.21 Body mass index [BMI] 21.0-21.9, adult
CPT/HCPCS: 36415; 71045; 80048; 80053; 85025; 85027; 87040; 87070; 87804; 87811; 93005; 94640; 94761; 96365; 96366; 96372; 96375; 96376; 99285; G0378; J2930

== ENCOUNTER 2023-05-22 11:14 | Emergency (ER) | payer MEDICARE, MEDICAID, SELFPAY ==
[2023-05-22 11:17] VITALS: BP 112/87; PULSE 109; RESP 20; TEMP 37.1; O2SAT 92; BMI 23.8
[2023-05-22 11:22] VITALS: O2SAT 96
--- NOTE | 2023-05-22 11:32 | XR_ITS ---
[facility] [place] [id number] Patient Name: FRANCIS GALVEZ MRN: [id number] date: 1990 Sex: M Assigned Patient Location: ER Current Patient Location: ER Accession/Order Number: [id number] Exam Date: 05/22/2023 11:40 Report Date: 05/22/2023 12:05 At the request of: ROSANNA NASCIMENTO Procedure: XR chest 2V EXAM: XR chest 2V HISTORY: cough, shortness of breath COMPARISON: 04/17/2023 TECHNIQUE: PA and lateral views of the chest. FINDINGS: The cardiomediastinal silhouette is normal. Right perihilar airspace disease. Suggestion of COPD. There is no pneumothorax. No pleural effusion is noted. The osseous structures are intact. XR/XR chest 2V IMPRESSION: Right perihilar airspace disease, unchanged. Suggestion of COPD Electronically authenticated by: ARIELLE IBARRA Date: 05/22/2023 12:05
[2023-05-22] MEDS: IPRATROPIUM/ALBUTEROL SULFATE 3 ML AMPUL.NEB IH (11:45)
[2023-05-22 11:46] VITALS: O2SAT 93
--- NOTE | 2023-05-22 12:11 | ED.SOB1 ---
HPI - SOB/Dyspnea General Chief Complaint: Shortness of Breath/Dyspnea Stated Complaint: shortness of breath Time Seen by Provider: 05/22/23 11:15 Source: patient Mode of arrival: walk-in Limitations: no limitations History of Present Illness HPI Narrative: Patient tested positive for Covid and has been ill. He is currently taking Levaquin daily - about one week into a 10 day course. He said that he is using his home oxygen all the time . Still with cough producing greenish yellowish sputum. No chest pain. Shortness of breath with exertion is present. No fever or chills. Related Data Home Medications Medication Instructions Recorded Confirmed albuterol sulfate 2.5 mg/3 mL 2.5 mg inhalation QID 01/12/23 05/15/23 (0.083 %) solution for nebulization albuterol sulfate 90 mcg/actuation 2 puff inhalation Q6H PRN 01/12/23 05/15/23 aerosol inhaler shortness of breath or wheezing dexlansoprazole 60 mg 60 mg PO DAILY 04/16/23 05/15/23 capsule,biphase delayed release (Dexilant) fluticasone 250 mcg-salmeterol 50 1 inh inhalation BID 05/15/23 05/15/23 mcg/dose blistr powdr for inhalation (Advair Diskus) Previous Rx's Medication Instructions Recorded levofloxacin 750 mg tablet 750 mg PO DAILY 10 days #10 tabs 05/16/23 methylprednisolone 4 mg tablets in 4 mg PO DAILY #21 ea 05/16/23 a dose pack (Medrol (Daniel)) nirmatrelvir 300 mg (150 mg See Rx Instructions PO .COMPLEX 05/16/23 x2)-ritonavir 100 mg tablet,dose #30 ea pack (Paxlovid) Allergies Allergy/AdvReac Type Severity Reaction Status Date / Time Penicillins Allergy Intermediate Verified 05/22/23 11:21 [facility] Medical History (Updated 05/22/23 @ 12:14 by Rosanna Nascimento) GERD (gastroesophageal reflux disease) ?K21.9 - Gastro-esophageal reflux disease without esophagitis (ICD-10) 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 - Pyothorax with fistula (ICD-10) Shortness of breath ?R06.02 - Shortness of breath (ICD-10) Chronic dyspnea ?R06.09 - Other forms of dyspnea (ICD-10) Viral infection ?B34.9 - Viral infection, unspecified (ICD-10) Abdominal pain ?R10.9 - Unspecified abdominal pain (ICD-10) Hypoxia ?R09.02 - Hypoxemia (ICD-10) Acute asthma exacerbation ?J45.901 - Unspecified asthma with (acute) exacerbation (ICD-10) Bronchitis ?J40 - Bronchitis, not specified as acute or chronic (ICD-10) Leukocytosis ?D72.829 - Elevated white blood cell count, unspecified (ICD-10) History of home oxygen therapy ?Z99.81 - Dependence on supplemental oxygen (ICD-10) Oxygen desaturation during sleep ?G47.34 - 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) History of gastrostomy tube placement 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 (ICD-10) Pneumonia ?J18.9 - Pneumonia, unspecified organism (ICD-10) Abdominal pain ?R10.9 - Unspecified abdominal pain (ICD-10) Abdominal pain, acute ?R10.9 - Unspecified abdominal pain (ICD-10) Surgical History History of fundoplication ?Z98.890 - Other specified postprocedural states (ICD-10) History of appendectomy ?Z90.49 - Acquired absence of other specified parts of digestive tract (ICD-10) H/O chest tube placement ?Z98.890 - Other specified postprocedural states (ICD-10) History of facial surgery ?Z98.890 - Other specified postprocedural states (ICD-10) Family History Mother Family history of diabetes mellitus Family history of hypertension Grandmother Family history of diabetes mellitus Grandfather Family history of myocardial infarction Social History Within the past year, how often did you have a drink containing alcohol: 2-4 times a month Within the past year, how many standard drinks containing alcohol did you have on a typical day: 1 or 2 Within the past year, how often did you have six or more drinks on one occasion: weekly Total score: 3 Score interpretation: A score of 4 or more indicates drinking is likely to affect patient's safety. 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 or athletic groups, or school groups: no Total score: 1 Score interpretation: A score of less than or equal to 1 indicates the most socially isolated. Little interest or pleasure in doing things: not at all Feeling down, depressed, or hopeless: not at all Feel stressed/tense/nervous/anxious/difficulty sleeping: not at all Do you think of yourself as: straight/heterosexual Gender Identity: male Exam Narrative Exam Narrative: Nurses notes and vital signs reviewed and patient is not hypoxic. afebrile General: Well-appearing and in no apparent distress. Skin: Warm, dry, no pallor noted. No rash. Head: Normocephalic, atraumatic. Neck: Supple, non-tender. No cervical lymphadenopathy Eye: Pupils are equal, round and EOMI. No scleral icterus. Ears, Nose, Mouth, and Throat: TM are clear, no posterior oropharynx erythema or nasal mucosal hypertrophy, uvula is mid-line Oral mucosa is moist Cardiovascular: Regular Rate and Rhythm without murmur, gallop or rub. Respiratory: No accessory muscle use or respiratory distress. Lungs are clear to auscultation, no wheezing, rales or rhonchi Musculoskeletal: normal ROM Neurological: A&O x4. No cranial nerve dysfunction observed. No truncal ataxia. Moves all extremities. Sensation intact. Psychiatric: Cooperative and interactive. Normal mood and affect. Constitutional Vital Signs, click to edit/add: Last Vital Signs Temp 98.7 F 05/22/23 11:17 Pulse 109 H 05/22/23 11:17 Resp 20 05/22/23 11:17 BP 112/87 05/22/23 11:17 Pulse Ox 93 L 05/22/23 11:46 O2 Del Method Nasal Cannula 05/22/23 11:46 O2 Flow Rate 2 05/22/23 11:46 Course Vital Signs Vital signs: Vital Signs Temperature 98.7 F 05/22/23 11:17 Pulse Rate 109 H 05/22/23 11:17 Respiratory Rate 20 05/22/23 11:17 Blood Pressure 112/87 05/22/23 11:17 Pulse Oximetry 92 L 05/22/23 11:17 Oxygen Delivery Method Room Air 05/22/23 11:17 Temperature 98.7 F 05/22/23 11:17 Pulse Rate 109 H 05/22/23 11:17 Respiratory Rate 20 05/22/23 11:17 Blood Pressure 112/87 05/22/23 11:17 Pulse Oximetry 93 L 05/22/23 11:46 Oxygen Delivery Method Nasal Cannula 05/22/23 11:46 Oxygen Delivery Flow Rate 2 05/22/23 11:46 MDM - SOB/Dyspnea MDM Narrative Medical decision making narrative: Chest x-ray obtained. Radiologist interpretation as noted below. The patient also received a DuoNeb treatment in the emergency department. No acute worrisome findings. The patient is already taking levofloxacin and has several days left and a 10-day prescription. He has oxygen at home. He also has breathing treatments at home. At this point I do not see a need to change his med regimen. He does need to give this more time to work. He was discharged home after he and I talked about his x-ray results and I gave him reassurance. Imaging Data Chest x-ray: Attestation: I have reviewed the pertinent imaging results. Radiologist's impression: Patient Name: FRANCIS GALVEZ MRN: [id number] date: 1990 Sex: M Assigned Patient Location: ER Current Patient Location: ER Accession/Order Number: [id number] Exam Date: 05/22/2023 11:40 Report Date: 05/22/2023 12:05 At the request of: ROSANNA NASCIMENTO Procedure: XR chest 2V EXAM: XR chest 2V HISTORY: cough, shortness of breath COMPARISON: 04/17/2023 TECHNIQUE: PA and lateral views of the chest. FINDINGS: The cardiomediastinal silhouette is normal. Right perihilar airspace disease. Suggestion of COPD. There is no pneumothorax. No pleural effusion is noted. The osseous structures are intact. IMPRESSION: Right perihilar airspace disease, unchanged. Suggestion of COPD Electronically authenticated by: ARIELLE IBARRA Date: 05/22/2023 12:05 Discharge Plan Discharge Chief Complaint: Shortness of Breath/Dyspnea Clinical Impression: Acute exacerbation of bronchiectasis Patient Disposition: Home, Self-Care Time of Disposition Decision: 12:12 Mode of Transportation: Private Vehicle Prescriptions / Home Meds: No Action albuterol sulfate 90 mcg/actuation HFA aerosol inhaler 2 puff INHALATION Q6H PRN (Reason: shortness of breath or wheezing) albuterol sulfate 2.5 mg /3 mL (0.083 %) solution for nebulization 2.5 mg inhalation QID dexlansoprazole [Dexilant] 60 mg capsule,biphase delayed releas 60 mg PO DAILY fluticasone propion-salmeterol [Advair Diskus] 250-50 mcg/dose blister with device 1 inh inhalation BID methylprednisolone [Medrol (Daniel)] 4 mg tablets,dose pack 4 mg PO DAILY Qty: 21 0RF levofloxacin 750 mg tablet 750 mg PO DAILY 10 Days Qty: 10 0RF Paxlovid 300 mg (150 mg x 2)-100 mg tablets,dose pack See Rx Instructions .ROUTE .COMPLEX Qty: 30 0RF Rx Instructions: take TWO 150 mg tablets of nirmatrelvir with ONE 100 mg tablet of ritonavir twice daily for 5 days Instructions: Bronchiectasis (ED) Stand Alone Forms: Portal Instructions Referrals: JORDAN PEÑA APRN [Primary Care Provider] - 1 week Discharge Date/Time: 05/22/23 12:36
== END 2023-05-22 12:36 | disposition home or self-care (01) ==
PROVIDERS: Emergency Provider Emergency Medicine; PCP Nurse Practitioner Primary Care
DX: J47.1 Bronchiectasis with (acute) exacerbation (principal); Z79.51 Long term (current) use of inhaled steroids; K21.9 Gastro-esophageal reflux disease without esophagitis
CPT/HCPCS: 71046; 94640; 99283

== ENCOUNTER 2023-05-23 11:46 | Observation (INO) | payer MEDICARE, MEDICAID, SELFPAY ==
[2023-05-23] VITALS (17 sets, daily range): BP systolic 106–154; BP diastolic 57–75; PULSE 104–132; RESP 18–24; TEMP 36.6–37; O2SAT 91–96; BMI 22.1; BMI 21.0
--- NOTE | 2023-05-23 12:37 | ED.SOB1 ---
HPI - SOB/Dyspnea General Chief Complaint: Shortness of Breath/Dyspnea Stated Complaint: SHORTNESS OF BREATH Time Seen by Provider: 05/23/23 12:00 Source: patient Mode of arrival: walk-in Limitations: no limitations History of Present Illness HPI Narrative: Patient returns today stating that he has increased shortness of breath. He was evaluated yesterday in our ED. He previously tested positive for Covid. He was subsequently placed on 10 day course of Levaquin, he is on day 7. He has home O2 and home nebulizer machine. He complains of increased cough with production of yellowish greenish sputum/phlegm. He had an unremarkable exam yesterday, was given reassurance and discharged home after CXR was negative and he received a duoneb treatment. Related Data Home Medications Medication Instructions Recorded Confirmed albuterol sulfate 2.5 mg/3 mL 2.5 mg inhalation QID 01/12/23 05/15/23 (0.083 %) solution for nebulization albuterol sulfate 90 mcg/actuation 2 puff inhalation Q6H PRN 01/12/23 05/15/23 aerosol inhaler shortness of breath or wheezing dexlansoprazole 60 mg 60 mg PO DAILY 04/16/23 05/15/23 capsule,biphase delayed release (Dexilant) fluticasone 250 mcg-salmeterol 50 1 inh inhalation BID 05/15/23 05/15/23 mcg/dose blistr powdr for inhalation (Advair Diskus) Previous Rx's Medication Instructions Recorded levofloxacin 750 mg tablet 750 mg PO DAILY 10 days #10 tabs 05/16/23 methylprednisolone 4 mg tablets in 4 mg PO DAILY #21 ea 05/16/23 a dose pack (Medrol (Daniel)) nirmatrelvir 300 mg (150 mg See Rx Instructions PO .COMPLEX 05/16/23 x2)-ritonavir 100 mg tablet,dose #30 ea pack (Paxlovid) Allergies Allergy/AdvReac Type Severity Reaction Status Date / Time Penicillins Allergy Intermediate Verified 05/22/23 11:21 [facility] Medical History (Updated 05/23/23 @ 14:48 by Rosanna Nascimento) GERD (gastroesophageal reflux disease) ?K21.9 - Gastro-esophageal reflux disease without esophagitis (ICD-10) 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 - Pyothorax with fistula (ICD-10) Shortness of breath ?R06.02 - Shortness of breath (ICD-10) Chronic dyspnea ?R06.09 - Other forms of dyspnea (ICD-10) Viral infection ?B34.9 - Viral infection, unspecified (ICD-10) Abdominal pain ?R10.9 - Unspecified abdominal pain (ICD-10) Hypoxia ?R09.02 - Hypoxemia (ICD-10) Acute asthma exacerbation ?J45.901 - Unspecified asthma with (acute) exacerbation (ICD-10) Bronchitis ?J40 - Bronchitis, not specified as acute or chronic (ICD-10) Leukocytosis ?D72.829 - Elevated white blood cell count, unspecified (ICD-10) History of home oxygen therapy ?Z99.81 - Dependence on supplemental oxygen (ICD-10) Oxygen desaturation during sleep ?G47.34 - 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) History of gastrostomy tube placement 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 (ICD-10) Pneumonia ?J18.9 - Pneumonia, unspecified organism (ICD-10) Abdominal pain ?R10.9 - Unspecified abdominal pain (ICD-10) Abdominal pain, acute ?R10.9 - Unspecified abdominal pain (ICD-10) Surgical History History of fundoplication ?Z98.890 - Other specified postprocedural states (ICD-10) History of appendectomy ?Z90.49 - Acquired absence of other specified parts of digestive tract (ICD-10) H/O chest tube placement ?Z98.890 - Other specified postprocedural states (ICD-10) History of facial surgery ?Z98.890 - Other specified postprocedural states (ICD-10) Family History Mother Family history of diabetes mellitus Family history of hypertension Grandmother Family history of diabetes mellitus Grandfather Family history of myocardial infarction Social History Within the past year, how often did you have a drink containing alcohol: 2-4 times a month Within the past year, how many standard drinks containing alcohol did you have on a typical day: 1 or 2 Within the past year, how often did you have six or more drinks on one occasion: weekly Total score: 3 Score interpretation: A score of 4 or more indicates drinking is likely to affect patient's safety. 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 Known occupational exposures/hazards: No Highest level of school completed/degree received: high school graduate Are you now , , , , never or living with a partner: In a typical week, how many times do you talk on the telephone with family, friends, or neighbors: 3 or more times per week How often do you get together with friends or relatives: once per week How often do you attend mandaeism or yazdanism services: never Do you belong to any clubs or organizations such as mandaeism groups unions, fraternal or athletic groups, or school groups: no Total score: 1 Score interpretation: A score of less than or equal to 1 indicates the most socially isolated. Little interest or pleasure in doing things: not at all Feeling down, depressed, or hopeless: not at all Feel stressed/tense/nervous/anxious/difficulty sleeping: not at all Do you think of yourself as: straight/heterosexual Gender Identity: male Exam Narrative Exam Narrative: Nurses notes and vital signs reviewed and patient is not hypoxic. afebrile General: Well-appearing and in no apparent distress. Skin: Warm, dry, no pallor noted. No rash. Head: Normocephalic, atraumatic. Neck: Supple, non-tender. No cervical lymphadenopathy Eye: Pupils are equal, round and EOMI. No scleral icterus. Ears, Nose, Mouth, and Throat: TM are clear, no posterior oropharynx erythema or nasal mucosal hypertrophy, uvula is mid-line Oral mucosa is moist Cardiovascular: Tachcyardia. Respiratory: Tachypnea at 24 breaths per minute. No accessory muscle use or respiratory distress. Lungs with scattered rhonchi Musculoskeletal: normal ROM, no calf or popliteal tenderness, no lower extremity edema/swelling GI: Abdomen is soft, non-distended. Normal bowel sounds. No tenderness to palpation. No rebound, guarding, or rigidity noted. Neurological: A&O x4. No cranial nerve dysfunction observed. No truncal ataxia. Moves all extremities. Sensation intact. Psychiatric: Cooperative and interactive. Normal mood and affect. Constitutional Vital Signs, click to edit/add: Last Vital Signs Temp 98 F 05/23/23 11:53 Pulse 107 H 05/23/23 13:42 Resp 24 05/23/23 11:53 BP 106/75 05/23/23 11:53 Pulse Ox 96 05/23/23 13:42 O2 Del Method Nasal Cannula 05/23/23 13:02 O2 Flow Rate 3 05/23/23 13:42 Course Vital Signs Vital signs: Vital Signs Temperature 98 F 05/23/23 11:53 Pulse Rate 110 H 05/23/23 11:53 Respiratory Rate 24 05/23/23 11:53 Blood Pressure 106/75 05/23/23 11:53 Pulse Oximetry 93 L 05/23/23 11:53 Oxygen Delivery Method Room Air 05/23/23 11:53 Temperature 98 F 05/23/23 11:53 Pulse Rate 107 H 05/23/23 13:42 Respiratory Rate 24 05/23/23 11:53 Blood Pressure 106/75 05/23/23 11:53 Pulse Oximetry 96 05/23/23 13:42 Oxygen Delivery Method Nasal Cannula 05/23/23 13:02 Oxygen Delivery Flow Rate 3 05/23/23 13:42 MDM - SOB/Dyspnea MDM Narrative Medical decision making narrative: Peripheral IV established and blood drawn and sent for testing, including D-dimer. The patient was placed on oxygen at 2 L/min nasal cannula. He was given a DuoNeb treatment and IV Solumedrol. Patient has failed out-patient therapy and is not improving. He will be admitted to [facility] under Dr Webber's service. Lab Data Attestation: I reviewed the patient's lab results. Labs: Lab Results 05/23/23 05/23/23 Range/Units 12:42 12:44 WBC 21.6 H (4.0-11.0) 10^3/uL RBC 5.12 (4.70-6.10) 10^6/uL Hgb 15.3 (14.0-18.0) g/dL Hct 45.0 (42.0-54.0) % MCV 87.9 (80.0-94.0) fL MCH 29.9 (25.9-34.0) pg MCHC 34.0 (29.9-35.2) g/dL RDW 12.5 (11.0-15.0) % Plt Count 360 (150-450) 10^3/uL MPV 10.3 (9.5-13.5) fL Seg Neuts % (Manual) 82.0 Lymphocytes % (Manual) 10.0 L (20.5-60.0) % Monocytes % (Manual) 7.0 (1.7-12.0) % Eosinophils % (Manual) 1.0 (0.9-7.0) % Basophils % (Manual) 0.0 L (0.2-2.0) % Neutrophils # (Manual) 17.71 H (1.4-6.5) 10^3/uL Lymphocytes # (Manual) 2.16 (1.20-3.80) 10^3/uL Monocytes # (Manual) 1.51 H (0.30-0.80) 10^3/uL Eosinophils # (Manual) 0.21 (0.00-0.70) 10^3/uL Basophils # (Manual) 0.00 (0.00-0.10) 10^3/uL D-Dimer 0.44 (<=0.59) mg/L FEU Sodium 138 (136-145) mmol/L Potassium 3.7 (3.5-5.1) mmol/L Chloride 101 (98-107) mmol/L Carbon Dioxide 27.3 (21.0-32.0) mmol/L Anion Gap 13.4 BUN 10.0 (7.0-18.0) mg/dL Creatinine 0.74 (0.70-1.30) mg/dL Est GFR ( Amer) >60 (>=60) Est GFR (Non-Af Amer) >60 (>=60) BUN/Creatinine Ratio 13.5 Glucose 105 (74-106) mg/dL Lactate 0.7 (0.4-2.0) mmol/L Calcium 8.9 (8.5-10.1) mg/dL Adenovirus (PCR) Not detected (NOT DETECTE) C. pneumoniae DNA (PCR) Not detected (NOT DETECTE) Coronavirus Type OC43 Not detected (NOT DETECTE) Coronavirus Type HKU1 Not detected (NOT DETECTE) Coronavirus Type 229E Not detected (NOT DETECTE) Coronavirus Type NL63 Not detected (NOT DETECTE) Human Metapneumovir PCR Not detected (NOT DETECTE) M. pneumoniae (PCR) Not detected (NOT DETECTE) Parainfluenza PCR Not detected (NOT DETECTE) Parainfluenza 2 (PCR) Not detected (NOT DETECTE) Parainfluenza 3 (PCR) Not detected (NOT DETECTE) Parainfluenza 4 (PCR) Not detected (NOT DETECTE) RSV (RT-PCR) Not detected (NOT DETECTE) Entero/Rhino (PCR) Not detected (NOT DETECTE) SARS-CoV-2 (PCR) Not detected (NOT DETECTE) Bordetella pertussis (PCR) Not detected (NOT DETECTE) B parapertussis DNA PCR Not detected (NOT DETECTE) Influenza Type A (PCR) Not detected (NOT DETECTE) Influenza Type B (PCR) Not detected (NOT DETECTE) Imaging Data Chest x-ray: Radiologist's impression: Patient Name: FRANCIS GALVEZ MRN: [facility]:[id number] date: 1990 Sex: M Assigned Patient Location: ER Current Patient Location: ER Accession/Order Number: [id number] Exam Date: 05/23/2023 14:08 Report Date: 05/23/2023 14:35 At the request of: ROSANNA NASCIMENTO Procedure: XR chest 1V EXAMINATION: XR chest 1V HISTORY: cough, wbc 21k COMPARISON: XR chest 05/22/2023, 05/15/2023, 02/06/2023, 12/16/2020 FINDINGS: LUNGS: Right perihilar opacities compatible with right middle lobe partial collapse and no bronchiectasis. Hyperexpanded lungs and chronic blunting of left lateral costal phrenic angle; no convincing fluid. VASCULATURE: No increased pulmonary vasculature. PLEURA: No pneumothorax, effusion, or pleural thickening. CARDIAC: No cardiomegaly or cardiac silhouette abnormality. MEDIASTINUM: No visible mass or adenopathy. BONES: No fracture or visible bone lesion. OTHER: Negative. IMPRESSION: 1. Grossly stable chronic changes within the lungs compatible with COPD and right middle lobe collapse. No appreciable acute findings. Electronically authenticated by: GUS BANERJEE Date: 05/23/2023 14:35 Discharge Plan Discharge Chief Complaint: Shortness of Breath/Dyspnea Clinical Impression: Acute exacerbation of bronchiectasis Patient Disposition: Admitted as Observation Time of Disposition Decision: 12:48
[2023-05-23] MEDS: IPRATROPIUM/ALBUTEROL SULFATE 3 ML AMPUL.NEB IH ×4 (13:01→23:12)
--- NOTE | 2023-05-23 13:04 | PC.NURSE ---
RT AT BEDSIDE AT THIS TIME
[2023-05-23 13:05] LABS: Anion Gap 13.4; BUN Creatinine Ratio 13.5; Calcium 8.9 mg/dL (8.5-10.1); Carbon Dioxide 27.3 mmol/L (21.0-32.0); Chloride 101 mmol/L (98-107); Estimated GFR (African America >60 (>=60); Estimated GFR (Non-African Ame >60 (>=60); Glucose 105 mg/dL (74-106); Potassium 3.7 mmol/L (3.5-5.1); Sodium 138 mmol/L (136-145)
[2023-05-23 13:07] LABS: Hemoglobin 15.3 g/dL (14.0-18.0); Mean Corpuscular Hemoglobin 29.9 pg (25.9-34.0); Mean Corpuscular Volume 87.9 fL (80.0-94.0); Mean Platelet Volume 10.3 fL (9.5-13.5); Platelet Count 360 10^3/uL (150-450); Red Blood Count 5.12 10^6/uL (4.70-6.10); Red Cell Distribution Width 12.5 % (11.0-15.0); White Blood Count 21.6 10^3/uL (4.0-11.0)
[2023-05-23] MEDS: METHYLPREDNISOLONE SOD SUCC PF 125 MG/2 ML VIAL IVP (13:10)
[2023-05-23 13:24] LABS: Eosinophils Absolute Manual 0.21 10^3/uL (0.00-0.70); Lymphocytes Absolute Manual 2.16 10^3/uL (1.20-3.80); Monocytes Absolute Manual 1.51 10^3/uL (0.30-0.80)
[2023-05-23 13:25] LABS: Segmented Neut Absolute Manual 17.71 10^3/uL (1.4-6.5)
[2023-05-23 14:00] LABS: D Dimer 0.44 mg/L FEU (<=0.59)
--- NOTE | 2023-05-23 14:02 | XR_ITS ---
The [address] [address] Patient Name: FRANCIS GALVEZ MRN: [id number] date: 1990 Sex: M Assigned Patient Location: ER Current Patient Location: ER Accession/Order Number: [id number] Exam Date: 05/23/2023 14:08 Report Date: 05/23/2023 14:35 At the request of: ROSANNA NASCIMENTO Procedure: XR chest 1V EXAMINATION: XR chest 1V HISTORY: cough, wbc 21k COMPARISON: XR chest 05/22/2023, 05/15/2023, 02/06/2023, 12/16/2020 FINDINGS: LUNGS: Right perihilar opacities compatible with right middle lobe partial collapse and no bronchiectasis. Hyperexpanded lungs and chronic blunting of left lateral costal phrenic angle; no convincing fluid. VASCULATURE: No increased pulmonary vasculature. PLEURA: No pneumothorax, effusion, or pleural thickening. CARDIAC: No cardiomegaly or cardiac silhouette abnormality. MEDIASTINUM: No visible mass or adenopathy. BONES: No fracture or visible bone lesion. OTHER: Negative. XR/XR chest 1V IMPRESSION: 1. Grossly stable chronic changes within the lungs compatible with COPD and right middle lobe collapse. No appreciable acute findings. Electronically authenticated by: GUS BANERJEE Date: 05/23/2023 14:35
--- NOTE | 2023-05-23 14:08 | CT_ITS ---
[address] [address] Patient Name: FRANCIS GALVEZ MRN: [id number] date: 1990 Sex: M Assigned Patient Location: ER Current Patient Location: [place] Accession/Order Number: [id number] Exam Date: 05/23/2023 14:17 Report Date: 05/23/2023 14:50 At the request of: SHAIKH SEGUN Procedure: CT chest wo con EXAMINATION: CT chest wo con HISTORY: SOB/Pneumonia COMPARISON: CT chest 02/06/2023, CTA chest 06/02/2019 TECHNIQUE: Multi-planar CT images were obtained without and/or with IV contrast as indicated by examination type. Axial, Coronal, and Sagittal images. Dose reduction techniques were achieved by using automated exposure control and/or adjustment of mA and/or kV according to patient size and/or use of iterative reconstruction technique. FINDINGS: LUNGS: Bilateral bronchiectasis and scattered areas of mucous plugging. Chronic partial collapse of right middle lobe with patent, dilated bronchi within this segment. Chronic, partial collapse of lingula with patent bronchi. New 10 mm geographic shaped opacity within right upper lobe anterior segment; infiltrates versus mass. Stable appearance of a few additional scattered geographic shaped opacities/nodules. A few new, scattered areas of faint groundglass opacity. Chronic moderate emphysematous changes. PLEURA: No mass, effusion, or pneumothorax. VASCULATURE: No abnormality. WING: No mass or adenopathy. MEDIASTINUM: No mass or adenopathy. CARDIAC: No enlargement, pericardial thickening, or significant calcification. AORTA: No aneurysm or dissection. CHEST WALL: No mass or axillary adenopathy. BONES: No bone lesion or fracture. LIMITED ABDOMEN: No suspicious findings Limited images of the upper abdomen. OTHER: Negative. CT/CT chest wo con IMPRESSION: 1. Suspect mild acute infiltrates/pneumonia overlying chronic changes. 2. Stable, chronic partial collapse of right middle lobe and lingula accounting for chest x-ray findings. 3. Bilateral bronchiectasis with scattered areas of mucous plugging. 4. Single new 10 mm area of infiltrates versus nodule within right upper lobe anterior segment. Infiltrates are suspected. Consider follow-up chest x-ray in 1-2 months to document clearing. Electronically authenticated by: GUS Trimble: 05/23/2023 14:50
[2023-05-23 14:12] LABS: Adenovirus NOT DETECTED (NOT DETECTE); Bordetella parapertussis NOT DETECTED (NOT DETECTE); Coronavirus 229E NOT DETECTED (NOT DETECTE); Coronavirus HKU1 NOT DETECTED (NOT DETECTE); Coronavirus NL63 NOT DETECTED (NOT DETECTE); Coronavirus OC43 NOT DETECTED (NOT DETECTE); Human Metapneumovirus NOT DETECTED (NOT DETECTE); Human Rhinovirus/Enterovirus NOT DETECTED (NOT DETECTE); Influenza A NOT DETECTED (NOT DETECTE); Influenza B NOT DETECTED (NOT DETECTE); Mycoplasma pneumoniae NOT DETECTED (NOT DETECTE); Parainfluenza Virus 1 NOT DETECTED (NOT DETECTE); Parainfluenza Virus 2 NOT DETECTED (NOT DETECTE); Parainfluenza Virus 3 NOT DETECTED (NOT DETECTE); Parainfluenza Virus 4 NOT DETECTED (NOT DETECTE); Respiratory Syncytial Virus NOT DETECTED (NOT DETECTE); SARS-CoV-2 NOT DETECTED (NOT DETECTE)
[2023-05-23] MEDS: CEFTRIAXONE 1,000 MG in 0.9 % SODIUM CHLORIDE 50 ML 100 MG IV (14:23)
[2023-05-23 14:37] LABS: Lactate/Lactic Acid 0.7 mmol/L (0.4-2.0)
[2023-05-23 15:00] LABS: PROCALCITONIN <0.05 ng/mL (0.00-0.50)
--- NOTE | 2023-05-23 15:30 | P.HP_ITS ---
<Statement entered by Shaikh Lawanda MD - 05/24/23 11:44> Patient was not seen on the day of admission. Case discussed with Faith, Chart reviewed. Patient presented with sepsis sec to post viral bacterial pneumonia, hospital acquired Pneumonia after he had COVID infection 2 weeks ago. Assessment and Plan Acute on chronic resp failure with hypoxia Post viral bacterial PNA Sepsis Hospital acquired PNA. Severe persistent asthma with exacerbation Patient admitted for IV abx - vancoymcin/zosyn for MRSA, Pseudomonas coverage. IVF for hemodynamic support, dehyrdation and sepsis. IV solumedrol for asthma exacerbation H&P: HPI History of Present Illness Chief complaint: SHORTNESS OF BREATH Narrative: 05/23/23 2690 This is a 32-year-old male patient with a past medical history significant for chronic bronchiectasis with recent exacerbations after a COVID-19 infection. He presented to the ED today for the second day in a row complaining of persistent shortness of breath despite taking his medications as prescribed. He was recently admitted to this facility for COVID-19 infection and bronchiectasis exacerbation and was discharged home on 05/16/2023. He reports taking his Medrol Dosepak, Paxlovid, and Levaquin as prescribed. He reports persistent significant weakness, tight lungs and significant activity intolerance and dyspnea with conversation and minimal activity. He also reports coughing up thick green sputum. He is on 3 L of O2 at night chronically at home, but has intermittently been using his oxygen during the day as well since discharge. He reports a subjective fever yesterday but has not taken his temperature. Workup in the ED revealed leukocytosis (21.6), unremarkable D-dimer and BMP, unremarkable lactic acid and procalcitonin, negative respiratory panel. Chest x-ray noted grossly stable chronic changes in the lungs compatible with COPD and right middle lobe collapse with no appreciable acute findings. CT of the chest revealed mild acute infiltrate/pneumonia overlying chronic changes with chronic partial collapse of the right middle lobe and lingula. It specifically noted 10 mm area of infiltrates versus nodule within the right upper lobe that is new since previous imaging and scattered areas of mucous plugging were also noted. The patient is being admitted to observation with bronchiectasis exacerbation but we have low threshold to change this to an inpatient status pending clinical course, as he apparently has failed outpatient treatment with Levaquin. At the time of my exam the patient is resting comfortably in bed. He reports significant dyspnea with minimal activity but is able to complete short sentences during my exam. Mild conversational dyspnea is noted with prolonged conversation. He has a recorded history of penicillin allergy with a rash but per the medical history documentation has tolerated Augmentin and Zosyn in the past. He will be treated for bronchiectasis exacerbation with Pseudomonas and MRSA coverage as he has failed outpatient treatment with floroquinolone. Review of Systems ROS Status of ROS 10 or more systems reviewed and unremark able except as noted in history and below [facility] Medical History (Updated 05/23/23 @ 17:05 by Faith Vásquez NP) COVID-19 ?U07.1 - COVID-19 (ICD-10) GERD (gastroesophageal reflux disease) ?K21.9 - Gastro-esophageal reflux disease without esophagitis (ICD-10) 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34 - 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) History of gastrostomy tube placement 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 (ICD-10) Pneumonia ?J18.9 - Pneumonia, unspecified organism (ICD-10) Abdominal pain ?R10.9 - Unspecified abdominal pain (ICD-10) Abdominal pain, acute ?R10.9 - Unspecified abdominal pain (ICD-10) Surgical History History of fundoplication ?Z98.890 - Other specified postprocedural states (ICD-10) History of appendectomy ?Z90.49 - Acquired absence of other specified parts of digestive tract (ICD- 10) H/O chest tube placement ?Z98.890 - Other specified postprocedural states (ICD-10) History of facial surgery ?Z98.890 - Other specified postprocedural states (ICD-10) Family History Mother Family history of diabetes mellitus Family history of hypertension Grandmother Family history of diabetes mellitus Grandfather Family history of myocardial infarction Social History Within the past year, how often did you have a drink containing alcohol: 2-4 times a month Within the past year, how many standard drinks containing alcohol did you have on a typical day: 1 or 2 Within the past year, how often did you have six or more drinks on one occasion: weekly Total score: 3 Score interpretation: A score of 4 or more indicates drinking is likely to affect patient's safety. 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 Known occupational exposures/hazards: No Highest level of school completed/degree received: Associate degree: academic program Are you now , , , , never or living with a partner: In a typical week, how many times do you talk on the telephone with family, friends, or neighbors: 3 or more times per week How often do you get together with friends or relatives: once per week How often do you attend sikhism or advent services: never Do you belong to any clubs or organizations such as sikhism groups unions, fraternal or athletic groups, or school groups: no Total score: 1 Score interpretation: A score of less than or equal to 1 indicates the most socially isolated. Little interest or pleasure in doing things: not at all Feeling down, depressed, or hopeless: not at all Feel stressed/tense/nervous/anxious/difficulty sleeping: not at all Do you think of yourself as: straight/heterosexual Gender Identity: male Meds Home Medications and Allergies Home Medications Medication Instructions Recorded Confirmed Type albuterol sulfate 2.5 mg/3 mL 2.5 mg inhalation QID 01/12/23 05/23/23 History (0.083 %) solution for nebulization albuterol sulfate 90 mcg/actuation 2 puff inhalation Q6H PRN 01/12/23 05/23/23 History aerosol inhaler shortness of breath or wheezing dexlansoprazole 60 mg 60 mg PO DAILY 04/16/23 05/23/23 History capsule,biphase delayed release (Dexilant) fluticasone 250 mcg-salmeterol 50 1 inh inhalation BID 05/15/23 05/23/23 History mcg/dose blistr powdr for inhalation (Advair Diskus) Allergies Allergy/AdvReac Type Severity Reaction Status Date / Time Penicillins Allergy Intermediate Verified 05/22/23 11:21 Exam Constitutional Vital Signs, click to edit/add: Last Vital Signs Temp 98 F 05/23/23 11:53 Pulse 107 H 05/23/23 13:42 Resp 24 05/23/23 11:53 BP 106/75 05/23/23 11:53 Pulse Ox 96 05/23/23 13:42 O2 Del Method Nasal Cannula 05/23/23 13:02 O2 Flow Rate 3 05/23/23 13:42 Common normals: no apparent distress, oriented x3, alert and well nourished General appearance: cooperative Orientation/consciousness: Yes awake HENPA Common normals: normocephalic, head/scalp atraumatic, hearing grossly normal bilaterally, external nose normal and moist oral mucous membranes Eye Common normals: PERRL, EOMs intact bilaterally, conjunctivae normal and no scleral icterus Alignment: alignment normal Eyelid: eyelids normal Neck & C-Spine Common normals: full ROM, supple and no JVD Chest Common normals: inspection of chest normal Chest: symmetrical chest wall rise Respiratory Common normals: normal respiratory effort, no retractions and no use of accessory muscles Effort & inspection: able to speak in complete sentences (Short sentences. Increasingly dyspneic w/ prolonged conversation) Auscultation: rhonchi (Throughout); no wheezes Cardio Common normals: no JVD, regular rate, regular rhythm, S1 normal heart sound, S2 normal heart sound, no gallops, no clicks, no murmurs, no rub and peripheral pulses 2+ throughout GI Common normals: Normal to inspection, nondistended, normoactive bowel sounds present, soft to palpation, non-tender, no hepatosplenomegaly, no masses and no bruits Bladder/kidney exam: bladder normal to palpation Back & Pelvis Common normals: thoracic and lumbar spine normal to inspection Extremity Common normals: normal capillary refill and no pedal edema General: normal exam except as noted; no clubbing and no cyanosis Neuro Neno Coma Scale: GCS not evaluated Common normals: CN's II-XII intact bilaterally, moves all extremities, no focal motor deficits and no sensory deficits noted Speech: speech normal Motor exam: strength 5/5 throughout Psych Common normals: mental status grossly normal, thought process normal, affect normal and activity/motor behavior normal Results Labs Labs: Short CBC 05/23/23 Range/Units 12:44 WBC 21.6 H (4.0-11.0) 10^3/uL Hgb 15.3 (14.0-18.0) g/dL Hct 45.0 (42.0-54.0) % Plt Count 360 (150-450) 10^3/uL BMP 05/23/23 12:44 Sodium 138 Potassium 3.7 Chloride 101 Carbon Dioxide 27.3 BUN 10.0 Creatinine 0.74 Glucose 105 Calcium 8.9 Pulse Oximetry Attestation: I have reviewed the pertinent pulse oximetry results. Imaging CT scan - chest: Attestation: I have reviewed the pertinent imaging results. Radiologist's impression: IMPRESSION: 1. Suspect mild acute infiltrates/pneumonia overlying chronic changes. 2. Stable, chronic partial collapse of right middle lobe and lingula accounting for chest x-ray findings. 3. Bilateral bronchiectasis with scattered areas of mucous plugging. 4. Single new 10 mm area of infiltrates versus nodule within right upper lobe anterior segment. Infiltrates are suspected. Consider follow-up chest x-ray in 1-2 months to document clearing. Chest x-ray: Attestation: I have reviewed the pertinent imaging results. Radiologist's impression: IMPRESSION: 1. Grossly stable chronic changes within the lungs compatible with COPD and right middle lobe collapse. No appreciable acute findings. Assessment and Plan Assessment and Plan (1) Acute exacerbation of bronchiectasis: Assessment and Plan: ACUTE * Adm observation, low threshold to change to inpatient pending clinical course * Failed OP treatment with Levaquin * New RUL infiltrate noted on CT chest * Zosyn & Vanco for broad pseudomonas and MRSA coverage after fluoroquinolone failure * Pt apparently tolerated PCN dosing in the recent past - benadryl IVP PRN for allergic reaction * LR at 100/hr * Hypertonic neb tx for thick secretions/mobilization * Guaifenisen & OPEP for sputum mobilization * Duonebs q4h PRN * CBC, CMP daily (2) Leukocytosis: Assessment and Plan: ACUTE * Possible 2/2 recent steroid dosing, but appears out of proportion to short medrol dose denis dosing * Check PCT * ABX as above Qualifiers: Leukocytosis type: unspecified Qualified Code(s): D72.829 - Elevated white blood cell count, unspecified (3) GERD (gastroesophageal reflux disease): Assessment and Plan: CHRONIC * Continue home dexilant Qualifiers: Esophagitis presence: esophagitis presence not specified Qualified Code(s): K21.9 - Gastro-esophageal reflux disease without esophagitis (4) History of home oxygen therapy: Assessment and Plan: CHRONIC * 3L NC at night only at baseline * recent increase in O2 use during the day
--- NOTE | 2023-05-23 15:30 | RESP.RT ---
Placed on room air for trial
[2023-05-23] MEDS: ENOXAPARIN SODIUM 40 MG/0.4 ML SYRINGE SUBQ (16:31)
[2023-05-23] MEDS: LACTATED RINGER'S SOLUTION 1,000 ML 100 ML IV (16:31)
[2023-05-23 16:37] LABS: Glucometer 255 mg/dL (74-106)
[2023-05-23] MEDS: INSULIN ASPART 300 UNIT/3 ML PEN SUBQ ×2 (16:38→21:21)
[2023-05-23] MEDS: VANCOMYCIN HCL 1,000 MG in 0.9 % SODIUM CHLORIDE 250 ML 250 MG IV (16:39)
[2023-05-23] MEDS: NYSTATIN 500,000 UNIT/5 ML ORAL.SUSP 500000 UNIT PO ×2 (17:46→21:21)
[2023-05-23] MEDS: PIPERACILLIN SODIUM/TAZOBACTAM 3.375 GM in 0.9 % SODIUM CHLORIDE 50 ML IV (17:46)
[2023-05-23] MEDS: SODIUM CHLORIDE 3% INHALATION 15 ML NEB 6 ML IH ×2 (19:12→23:12)
[2023-05-23] MEDS: GUAIFENESIN 600 MG TAB.ER.12H PO (21:20)
[2023-05-23] MEDS: METHYLPREDNISOLONE SOD SUCC PF 40 MG/ML VIAL IVP (21:21)
[2023-05-23 21:22] LABS: Glucometer 251 mg/dL (74-106)
[2023-05-24] VITALS (21 sets, daily range): BP systolic 108–118; BP diastolic 63–70; PULSE 79–120; RESP 18–24; TEMP 36.6–36.8; O2SAT 92–97
[2023-05-24] MEDS: VANCOMYCIN HCL 1,000 MG in 0.9 % SODIUM CHLORIDE 250 ML 250 MG IV ×4 (00:18→22:55)
[2023-05-24] MEDS: ZOLPIDEM TARTRATE 5 MG TABLET PO ×2 (00:18→23:49)
[2023-05-24] MEDS: PIPERACILLIN SODIUM/TAZOBACTAM 3.375 GM in 0.9 % SODIUM CHLORIDE 50 ML IV ×3 (02:39→19:47)
[2023-05-24] MEDS: LACTATED RINGER'S SOLUTION 1,000 ML 100 ML IV ×2 (02:39→12:02)
[2023-05-24] MEDS: IPRATROPIUM/ALBUTEROL SULFATE 3 ML AMPUL.NEB IH ×6 (03:53→23:02)
[2023-05-24] MEDS: SODIUM CHLORIDE 3% INHALATION 15 ML NEB 6 ML IH ×6 (03:53→23:01)
[2023-05-24] MEDS: NYSTATIN 500,000 UNIT/5 ML ORAL.SUSP 500000 UNIT PO ×4 (05:23→22:06)
[2023-05-24] MEDS: METHYLPREDNISOLONE SOD SUCC PF 40 MG/ML VIAL IVP ×3 (05:23→21:02)
[2023-05-24 05:57] LABS: Basophils Percent Auto 0.2 % (0.2-2.0); Hematocrit 41.5 % (42.0-54.0); Hemoglobin 13.7 g/dL (14.0-18.0); Immature Granulocytes Abs Auto 0.18 10^3/uL (0.00-0.03); Immature Granulocytes Pct Auto 0.9 % (0.0-0.5); Lymphocytes Absolute Auto 0.7 10^3/uL (1.2-3.8); Lymphocytes Percent Auto 3.7 % (20.5-60.0); Mean Corpuscular Hemoglobin 29.7 pg (25.9-34.0); Mean Platelet Volume 10.4 fL (9.5-13.5); Monocytes Absolute Auto 0.5 10^3/uL (0.3-0.8); Monocytes Percent Auto 2.7 % (1.7-12.0); Neutrophils Absolute Auto 18.4 10^3/uL (1.4-6.5); Neutrophils Percent Auto 92.5 % (43.0-75.0); Platelet Count 333 10^3/uL (150-450); Red Blood Count 4.61 10^6/uL (4.70-6.10); Red Cell Distribution Width 12.4 % (11.0-15.0); White Blood Count 19.9 10^3/uL (4.0-11.0)
[2023-05-24 06:20] LABS: Alanine Aminotransferase 19 U/L (16-63); Albumin Globulin Ratio 0.8; Albumin Level 2.9 g/dL (3.4-5.0); Alkaline Phosphatase 94 U/L (46-116); Aspartate Amino Transferase 7 U/L (15-37); BUN Creatinine Ratio 13.8; Bilirubin Total 0.3 mg/dL (0.2-1.0); Carbon Dioxide 24.7 mmol/L (21.0-32.0); Chloride 104 mmol/L (98-107); Estimated GFR (African America >60 (>=60); Estimated GFR (Non-African Ame >60 (>=60); Globulin 3.8 g/dL; Glucose 208 mg/dL (74-106); Potassium 3.7 mmol/L (3.5-5.1); Sodium 137 mmol/L (136-145); Total Protein 6.7 g/dL (6.4-8.2)
[2023-05-24] MEDS: MAALOX (MAG HYDROX/ALUMINUM HYD/SIMETH) 30 ML ORAL.SUSP PO (09:02)
[2023-05-24] MEDS: INSULIN ASPART 300 UNIT/3 ML PEN SUBQ ×4 (09:03→21:02)
[2023-05-24] MEDS: GUAIFENESIN 600 MG TAB.ER.12H PO ×2 (09:04→21:02)
[2023-05-24] MEDS: OMEPRAZOLE 40 MG CAPSULE.DR PO (10:19)
[2023-05-24 11:27] LABS: Glucometer 220 mg/dL (74-106)
--- NOTE | 2023-05-24 11:48 | CM.NOTE ---
Rounds made with Dr. Webber, no discharge for patient today. Discussed plan of care with pt.
[2023-05-24 11:57] LABS: Estimated Average Glucose 120 mg/dL; Glycohemoglobin A1C 5.8 % (4.5-6.2)
[2023-05-24 15:57] LABS: Glucometer 233 mg/dL (74-106)
[2023-05-24] MEDS: ENOXAPARIN SODIUM 40 MG/0.4 ML SYRINGE SUBQ (17:14)
--- NOTE | 2023-05-24 18:40 | P.IMPN_ITS ---
Progress Note: A&P Assessment and Plan (1) Sepsis: Assessment and Plan: SIRS (RR >20, HR>120, WBC >20 K) with right upper lobe consolidation. Improved hemodynamics but still quite tachycardic but this could be due to albuterol inhalation. C/w IVF. C/w Broad spectrum abx - Vancomycin, zosyn. F/u sputum, blood cultures. Qualifiers: Sepsis type: sepsis due to unspecified organism Sepsis acute organ dysfunction status: without acute organ dysfunction Qualified Code(s): A41.9 - Sepsis, unspecified organism (2) Hospital-acquired bacterial pneumonia: Assessment and Plan: Recent COVID Infection resulting in asthma exacerbation. Finished outpatient oral abx course of Levaquin. Frequent asthma exacerbation, requiring steroids increasing the risk of resistant organisms along with ED visit, hospital admission for respiratory conditions within past few months. Will treat as hospital acquired PNA - due to recent hospital admission, frequent ED visits, failure of outpatient abx (levaquin) and underlying chronic lung condition (Asthma and bronchiectasis) Wean off O2 as tolerated. F/u sputum and blood cx. (3) Asthma with severe exacerbation: Assessment and Plan: C/w systemic steroids, duonebs. Added saline nebs to help with mucus plugging and help with secretions along with OPEP and mucinex. 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 Thick secretions, mucus plugging. Added saline nebs, alongwith OPEP to mobilize mucus/sputum. On systemic steroids, duonebs. Needs aggressive pulm toilet. (5) Bronchiectasis with acute lower respiratory infection: Assessment and Plan: Present with Right upper lobe PNA. Treating for hospital acquired resistent bacterial organisms. (6) Acute and chronic respiratory failure with hypoxia: Assessment and Plan: uses 2-3 L O2 via NC at night. Presented with increased work of breathing, acessory muscle use, worsening hypoxia. Improved since admission and feeling better but still hypoxic and experiences considerable dyspnea on minimal exertion . (7) GERD (gastroesophageal reflux disease): Assessment and Plan: C/w PPI Qualifiers: Esophagitis presence: esophagitis presence not specified Qualified Code(s): K21.9 - Gastro-esophageal reflux disease without esophagitis (8) COVID-19: Assessment and Plan: Recent COVID. 2 weeks ago. No need for isolation. 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 Plan Patient changed to inpatient status - immunocompromised with underlying chronic lung disease. Failed outpatient treatment for PNA, Asthma exacerbation. Prese nted with Sepsis, acute resp failure and at high risk of worsening resp/clinica status and poor prognosis. Will require close monitoring Internal Medicine - PN: Subj Subjective Interval history: Seen and examined. Patient now on 3 L O2 via NC. He required upto 6 L O2 on admission. He reports considerable dyspnea on minimal exertion. He has prior hx of Tracheoesophageal fistula repair and feel like he can't move air on his right side and feels very tight. Exam Constitutional Vital Signs, click to edit/add: Last Vital Signs Temp 97.9 F 05/24/23 14:00 Pulse 112 H 05/24/23 18:00 Resp 18 05/24/23 14:00 BP 118/70 05/24/23 14:00 Pulse Ox 97 05/24/23 16:01 O2 Del Method Nasal Cannula 05/24/23 16:01 O2 Flow Rate 2 05/24/23 16:01 Documenting provider has reviewed patient's vital signs: yes Common normals: no apparent distress and oriented x3 General appearance: cooperative Respiratory Common normals: normal respiratory effort Effort & inspection: able to speak in complete sentences Auscultation: wheezes expiratory wheezes and diminished lung sounds Cardio Common normals: regular rate, S1 normal heart sound and S2 normal heart sound Rate: regular rate Heart sounds: S1 normal and S2 normal GI Common normals: Normal to inspection, nondistended, normoactive bowel sounds present, soft to palpation, non-tender and no hepatosplenomegaly Palpation: soft and no hepatosplenomegaly Other: surgical scar from previous surgery Extremity Common normals: no clubbing, cyanosis or edema Neuro Common normals: oriented x3, moves all extremities and no focal motor deficits Psych Common normals: mental status grossly normal, denies hallucinations, denies homicidal ideation and denies suicidal ideation Internal Medicine - PN: Obj Da Labs Labs: Laboratory Results - last 24 hr 05/23/23 05/24/23 05/24/23 21:19 05:43 11:24 WBC 19.9 H RBC 4.61 L Hgb 13.7 L Hct 41.5 L MCV 90.0 MCH 29.7 MCHC 33.0 RDW 12.4 Plt Count 333 MPV 10.4 Neut % (Auto) 92.5 H Lymph % (Auto) 3.7 L Emanuel % (Auto) 2.7 Eos % (Auto) 0.0 L Baso % (Auto) 0.2 Neut # (Auto) 18.4 H Lymph # (Auto) 0.7 L Emanuel # (Auto) 0.5 Eos # (Auto) 0.0 Baso # (Auto) 0.0 Abs Immat Gran (auto) 0.18 H Imm/Tot Granulo (auto) 0.9 H Sodium 137 Potassium 3.7 Chloride 104 Carbon Dioxide 24.7 Anion Gap 12.0 BUN 12.0 Creatinine 0.87 Est GFR ( Amer) >60 Est GFR (Non-Af Amer) >60 BUN/Creatinine Ratio 13.8 Glucose 208 H Estimat Average Glucose 120 Hemoglobin A1c 5.8 Calcium 9.0 Total Bilirubin 0.3 AST 7 L ALT 19 Alkaline Phosphatase 94 Total Protein 6.7 Albumin 2.9 L Globulin 3.8 Albumin/Globulin Ratio 0.8 Vancomycin Trough POC Glucose 251 H 05/24/23 05/24/23 05/24/23 11:26 15:56 16:35 WBC RBC Hgb Hct MCV MCH MCHC RDW Plt Count MPV Neut % (Auto) Lymph % (Auto) Emanuel % (Auto) Eos % (Auto) Baso % (Auto) Neut # (Auto) Lymph # (Auto) Emanuel # (Auto) Eos # (Auto) Baso # (Auto) Abs Immat Gran (auto) Imm/Tot Granulo (auto) Sodium Potassium Chloride Carbon Dioxide Anion Gap BUN Creatinine Est GFR ( Amer) Est GFR (Non-Af Amer) BUN/Creatinine Ratio Glucose Estimat Average Glucose Hemoglobin A1c Calcium Total Bilirubin AST ALT Alkaline Phosphatase Total Protein Albumin Globulin Albumin/Globulin Ratio Vancomycin Trough 7.0 POC Glucose 220 H 233 H
[2023-05-24 21:02] LABS: Glucometer 157 mg/dL (74-106)
[2023-05-25] VITALS (13 sets, daily range): BP systolic 122; BP diastolic 73; PULSE 96–127; RESP 18; TEMP 36.7; O2SAT 93–96
[2023-05-25] MEDS: PIPERACILLIN SODIUM/TAZOBACTAM 3.375 GM in 0.9 % SODIUM CHLORIDE 50 ML IV ×2 (01:46→12:39)
[2023-05-25] MEDS: SODIUM CHLORIDE 3% INHALATION 15 ML NEB 6 ML IH ×3 (03:33→11:16)
[2023-05-25] MEDS: IPRATROPIUM/ALBUTEROL SULFATE 3 ML AMPUL.NEB IH ×3 (03:33→11:16)
[2023-05-25] MEDS: VANCOMYCIN HCL 1,000 MG in 0.9 % SODIUM CHLORIDE 250 ML 250 MG IV ×2 (04:00→12:42)
[2023-05-25] MEDS: METHYLPREDNISOLONE SOD SUCC PF 40 MG/ML VIAL IVP ×2 (04:00→12:35)
[2023-05-25] MEDS: LACTATED RINGER'S SOLUTION 1,000 ML 100 ML IV (04:01)
[2023-05-25] MEDS: OMEPRAZOLE 40 MG CAPSULE.DR PO (05:03)
[2023-05-25] MEDS: NYSTATIN 500,000 UNIT/5 ML ORAL.SUSP 500000 UNIT PO ×2 (05:03→12:34)
[2023-05-25 06:06] LABS: Hematocrit 40.5 % (42.0-54.0); Hemoglobin 13.4 g/dL (14.0-18.0); Mean Corpuscular HGB Conc 33.1 g/dL (29.9-35.2); Mean Corpuscular Hemoglobin 29.7 pg (25.9-34.0); Mean Corpuscular Volume 89.8 fL (80.0-94.0); Mean Platelet Volume 10.8 fL (9.5-13.5); Platelet Count 340 10^3/uL (150-450); Red Blood Count 4.51 10^6/uL (4.70-6.10); Red Cell Distribution Width 12.8 % (11.0-15.0); White Blood Count 24.4 10^3/uL (4.0-11.0)
[2023-05-25 06:36] LABS: Alanine Aminotransferase 23 U/L (16-63); Albumin Globulin Ratio 0.8; Albumin Level 2.9 g/dL (3.4-5.0); Alkaline Phosphatase 99 U/L (46-116); Anion Gap 13.2; Aspartate Amino Transferase 9 U/L (15-37); BUN Creatinine Ratio 12.4; Bilirubin Total 0.3 mg/dL (0.2-1.0); Calcium 8.9 mg/dL (8.5-10.1); Carbon Dioxide 26.8 mmol/L (21.0-32.0); Chloride 103 mmol/L (98-107); Estimated GFR (African America >60 (>=60); Estimated GFR (Non-African Ame >60 (>=60); Globulin 3.6 g/dL; Glucose 260 mg/dL (74-106); Sodium 139 mmol/L (136-145); Total Protein 6.5 g/dL (6.4-8.2)
[2023-05-25 06:39] LABS: Band Neutrophils Absolute 0.5 10^3/uL (0.0-0.3); Lymphocytes Absolute Manual 0.48 10^3/uL (1.20-3.80); Monocytes Absolute Manual 0.24 10^3/uL (0.30-0.80); Poikilocytosis 3+; Segmented Neut Absolute Manual 23.18 10^3/uL (1.4-6.5)
--- NOTE | 2023-05-25 07:16 | RESP.RT ---
titrated down to 1L
[2023-05-25 07:35] LABS: Glucometer 236 mg/dL (74-106)
--- NOTE | 2023-05-25 08:28 | CM.NOTE ---
Important Message From [employer] discussed with pt, pt verbalizes understanding and signs paper. Original given to pt and copy placed on pt's chart.
[2023-05-25] MEDS: INSULIN ASPART 300 UNIT/3 ML PEN SUBQ (08:49)
[2023-05-25] MEDS: GUAIFENESIN 600 MG TAB.ER.12H PO (08:58)
[2023-05-25 11:23] LABS: Glucometer 131 mg/dL (74-106)
--- NOTE | 2023-05-25 11:54 | CM.NOTE ---
Rounding with Dr. Webber. Pt. voices he is tired this morning but laughing and joking with Dr. Webber. Pt. is on room air at this time. Discussed d/c with oral antibiotics and steroids and will order albuterol for breathing treatments at home also. Discussed importance of follow up appointment and patient voiced understanding. No other anticipated d/c needs at this time.
--- NOTE | 2023-05-25 15:19 | PM.DS1 ---
DS: Providers Provider Date of admission: 05/24/23 08:07 Primary care physician: NAUN PEÑA APRN-CHANDRIKA Attending physician on discharge: Shaikh Lawanda Discharging clinician: Shaikh Lawanda Anticipated date of discharge: 05/25/23 DS: Diagnosis Discharge Diagnosis (1) Sepsis: Assessment and plan: Improved hemodynamics but still quite tachycardic but this could be due to albuterol inhalation. Cultures negative. Stable for discharge on PO Doxycycline and Augmentin Qualifiers: Sepsis type: sepsis due to unspecified organism Sepsis acute organ dysfunction status: without acute organ dysfunction Qualified Code(s): A41.9 - Sepsis, unspecified organism (2) Hospital-acquired bacterial pneumonia: Assessment and plan: Treated for presumed hospital acquired PNA with Vancomycin/zosyn. Improved oxygenation and return to baseline resp status. Stable for d/c on Doxycycline and Augmentin (3) Asthma with severe exacerbation: Assessment and plan: Improved air entry but still has exp wheezing. However, much improved from before. D/c on PO Prednisone taper. Asked patient to c/w scheduled albuterol nebs at home until he is fully back to his baseline. (4) Acute exacerbation of bronchiectasis: Assessment and plan: Improved. C/w nebs and saline nebs at home. Mucinex to help improve mucus and secretions.. (5) Bronchiectasis with acute lower respiratory infection: Assessment and plan: Treated for hospital acquired PNA. Discharge on PO abx. (6) Acute and chronic respiratory failure with hypoxia: Assessment and plan: Back to baseline. On RA. Doing well. 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 DS: Summary Hospital Course Hospital Course: Patient admitted for Sepsis, acute on chronic resp failure with hypoxia, asthma exacerbation sec to hospital acquired pneumonia, post COVID bacterial PNA. Patient was treated with IVF, systemic steroids, inhaled bronchodialtors along with IV vancomycin, zosyn. He showed progressive clinical improvement during the course of hospital admission and himself felt ready and stable for discharge. Cultures negative. Will d/c on PO Doxycycline, Augmentin alongwith Prednisone taper for Asthma exacerbation. Patent educated on worrisome signs and symptoms that should prompt him to return to ED and that included worsening hypoxia, SOB, persistent fever. Status at Discharge Functional status at discharge: independent ambulation Overall status at discharge: patient is back to baseline Time Spent with Patient Time attestation: Total time spent providing and/or coordinating discharge services: Time spent: greater than 30 minutes Exam Constitutional Vital Signs, click to edit/add: Last Vital Signs Temp 98.0 F 05/25/23 05:06 Pulse 113 H 05/25/23 11:58 Resp 18 05/25/23 09:15 BP 122/73 05/25/23 05:06 Pulse Ox 94 L 05/25/23 11:17 O2 Del Method Room Air 05/25/23 11:17 O2 Flow Rate 1 05/25/23 08:45 Documenting provider has reviewed patient's vital signs: yes Common normals: no apparent distress and oriented x3 General appearance: cooperative Respiratory Common normals: normal respiratory effort and no use of accessory muscles Effort & inspection: able to speak in complete sentences Auscultation: wheezes expiratory wheezes Cardio Common normals: regular rate, S1 normal heart sound and S2 normal heart sound Rate: regular rate Heart sounds: S1 normal and S2 normal GI Common normals: Normal to inspection, nondistended, normoactive bowel sounds present, soft to palpation, non-tender and no hepatosplenomegaly Palpation: soft and no hepatosplenomegaly Other: surgical scar from previous surgery Extremity Common normals: no clubbing, cyanosis or edema Neuro Common normals: oriented x3, moves all extremities and no focal motor deficits Psych Common normals: mental status grossly normal, denies hallucinations, denies homicidal ideation and denies suicidal ideation DS: Data Data Completed and Pending Labs on day of discharge: Labs from last 24 hours 05/25/23 05/25/23 05/25/23 11:22 07:34 05:31 WBC 24.4 H RBC 4.51 L Hgb 13.4 L Hct 40.5 L MCV 89.8 MCH 29.7 MCHC 33.1 RDW 12.8 Plt Count 340 MPV 10.8 Seg Neuts % (Manual) 95.0 Band Neutrophils % 2.0 Lymphocytes % (Manual) 2.0 L Monocytes % (Manual) 1.0 L Eosinophils % (Manual) 0.0 L Basophils % (Manual) 0.0 L Neutrophils # (Manual) 23.18 H Band Neutrophils # 0.5 H Lymphocytes # (Manual) 0.48 L Monocytes # (Manual) 0.24 L Eosinophils # (Manual) 0.00 Basophils # (Manual) 0.00 Poikilocytosis 3+ Sodium 139 Potassium 4.0 Chloride 103 Carbon Dioxide 26.8 Anion Gap 13.2 BUN 11.0 Creatinine 0.89 Est GFR ( Amer) >60 Est GFR (Non-Af Amer) >60 BUN/Creatinine Ratio 12.4 Glucose 260 H Calcium 8.9 Total Bilirubin 0.3 AST 9 L ALT 23 Alkaline Phosphatase 99 Total Protein 6.5 Albumin 2.9 L Globulin 3.6 Albumin/Globulin Ratio 0.8 Vancomycin Trough POC Glucose 131 H 236 H 05/24/23 05/24/23 05/24/23 21:01 16:35 15:56 WBC RBC Hgb Hct MCV MCH MCHC RDW Plt Count MPV Seg Neuts % (Manual) Band Neutrophils % Lymphocytes % (Manual) Monocytes % (Manual) Eosinophils % (Manual) Basophils % (Manual) Neutrophils # (Manual) Band Neutrophils # Lymphocytes # (Manual) Monocytes # (Manual) Eosinophils # (Manual) Basophils # (Manual) Poikilocytosis Sodium Potassium Chloride Carbon Dioxide Anion Gap BUN Creatinine Est GFR ( Amer) Est GFR (Non-Af Amer) BUN/Creatinine Ratio Glucose Calcium Total Bilirubin AST ALT Alkaline Phosphatase Total Protein Albumin Globulin Albumin/Globulin Ratio Vancomycin Trough 7.0 POC Glucose 157 H 233 H Preliminary micro results at discharge 05/23/23 16:45 Sputum Culture - Preliminary Sputum - Expectorated Sputum Moraxella catarrhalis Discharge Plan Discharge Disposition: Home, Self-Care Condition: Good Discharge Medications: New doxycycline monohydrate 100 mg tablet 100 mg PO BID 10 Days Qty: 20 0RF guaifenesin 600 mg tablet extended release 12hr 600 mg PO BID PRN (Reason: cough) Qty: 20 0RF amoxicillin-pot clavulanate 875-125 mg tablet 1 tab PO BID Qty: 20 0RF prednisone 20 mg tablet 20 mg PO DAILY 9 Days Qty: 18 0RF Rx Instructions: take 3 pills x 3 days, 2 for 3 days, 1 x 3 days albuterol sulfate 2.5 mg /3 mL (0.083 %) solution for nebulization 2.5 mg inhalation Q6H PRN (Reason: shortness of breath or wheezing) Qty: 75 0RF Continued albuterol sulfate 2.5 mg /3 mL (0.083 %) solution for nebulization 2.5 mg inhalation QID dexlansoprazole [Dexilant] 60 mg capsule,biphase delayed releas 60 mg PO DAILY fluticasone propion-salmeterol [Advair Diskus] 250-50 mcg/dose blister with device 1 inh inhalation BID hydroxyzine pamoate 25 mg capsule 25 mg PO TID PRN (Reason: ANXIETY ) albuterol sulfate 90 mcg/actuation HFA aerosol inhaler 2 puff INHALATION Q6H PRN (Reason: shortness of breath or wheezing) Qty: 0 0RF Patient Instructions: Asthma (GEN), Acute Bronchitis (GEN), Sepsis (GEN), Leukocytosis (DC), Bacterial Pneumonia (GEN), Panic Attack (ED), Chronic Respiratory Failure (GEN), Acute Respiratory Failure (GEN) Forms: Portal Instructions Follow Up Appointments: May. 4 @ 10am with Naun Peña NP [phone] Discharge Date/Time: 05/25/23 14:16
--- NOTE | 2023-05-29 09:58 | CM.DCFOLLOWU ---
First attempt at discharge follow up call, no answer and call goes directly to voicemail. Unable to reach patient at this time.
--- NOTE | 2023-05-30 15:18 | CM.DCFOLLOWU ---
2nd attempt. No answer 05/30
== END 2023-05-25 14:16 | disposition home or self-care (01) | DRG 871 ==
LOC: ER 11:51 → MS 14:44
PROVIDERS: Admitting Provider Internal Medicine; Emergency Provider Emergency Medicine; PCP Nurse Practitioner Primary Care; Visit Provider Internal Medicine
DX: A41.9 Sepsis, unspecified organism (principal); J18.9 Pneumonia, unspecified organism; J96.21 Acute and chronic respiratory failure with hypoxia; J47.1 Bronchiectasis with (acute) exacerbation; J47.0 Bronchiectasis with acute lower respiratory infection; Q32.1 Other congenital malformations of trachea; D84.9 Immunodeficiency, unspecified; J45.901 Unspecified asthma with (acute) exacerbation; Z79.51 Long term (current) use of inhaled steroids; K21.00 Gastro-esophageal reflux disease with esophagitis, without bleeding; Z99.81 Dependence on supplemental oxygen; Y95 Nosocomial condition; Z87.01 Personal history of pneumonia (recurrent); K21.9 Gastro-esophageal reflux disease without esophagitis; F17.220 Nicotine dependence, chewing tobacco, uncomplicated; Z88.0 Allergy status to penicillin; U09.9 Post COVID-19 condition, unspecified; Z79.899 Other long term (current) drug therapy; Z20.822 Contact with and (suspected) exposure to COVID-19
CPT/HCPCS: 0202U; 36415; 71045; 71046; 71250; 80048; 80053; 80202; 82948; 83036; 83605; 84145; 85007; 85025; 85027; 85378; 87070; 87150; 87205; 94640; 94667; 94668; 94761; 96361; 96365; 96366; 96367; 96368; 96372; 96375; 96376; 99283; 99285; G0378; J2920; J2930; J3370

== ENCOUNTER 2023-06-06 09:06 | Emergency (ER) | payer MEDICARE, MEDICAID, SELFPAY ==
[2023-06-06] VITALS (7 sets, daily range): BP systolic 109–124; BP diastolic 70–81; PULSE 90–116; RESP 21–30; TEMP 36.7; O2SAT 86–97; BMI 22.1
--- NOTE | 2023-06-06 09:28 | ED_ITS ---
HPI - SOB/Dyspnea General Chief Complaint: Upper Respiratory Infection Stated Complaint: SHORTNESS OF BREATH Time Seen by Provider: 06/06/23 09:27 Source: patient Mode of arrival: walk-in Limitations: no limitations History of Present Illness HPI Narrative: 32-year-old male here complaining of shortness of breath. Patient well-known torso also recurring episodes of this. He is oxygen dependent. On 3 L here he varies between ninety-one and ninety-four percent saturation. He says his female friend at home came down with something got very very sick and that went directly to him. He was admitted to the hospital several months ago for pneumonia.as it turns out Luis ran out of his albuterol at 3 AM this morning and has not had any other emergent treatments. I have reviewed some of his recent visits here before seeing him. Related Data Home Medications Medication Instructions Recorded Confirmed albuterol sulfate 2.5 mg/3 mL 2.5 mg inhalation QID 01/12/23 05/23/23 (0.083 %) solution for nebulization dexlansoprazole 60 mg 60 mg PO DAILY 04/16/23 05/23/23 capsule,biphase delayed release (Dexilant) fluticasone 250 mcg-salmeterol 50 1 inh inhalation BID 05/15/23 05/23/23 mcg/dose blistr powdr for inhalation (Advair Diskus) hydroxyzine pamoate 25 mg capsule 25 mg PO TID PRN ANXIETY 05/23/23 05/24/23 Previous Rx's Medication Instructions Recorded albuterol sulfate 2.5 mg/3 mL 2.5 mg (3 mL) inhalation Q6H PRN 05/25/23 (0.083 %) solution for nebulization shortness of breath or wheezing #75 mL albuterol sulfate 90 mcg/actuation 2 puff inhalation Q6H PRN 05/25/23 aerosol inhaler shortness of breath or wheezing #0 grams amoxicillin 875 mg-potassium 1 tab PO BID #20 tabs 05/25/23 clavulanate 125 mg tablet doxycycline monohydrate 100 mg 100 mg PO BID 10 days #20 tabs 05/25/23 tablet guaifenesin 600 mg tablet, 600 mg PO BID PRN cough #20 tabs 05/25/23 extended release 12 hr prednisone 20 mg tablet 20 mg PO DAILY 9 days #18 tabs 05/25/23 Allergies Allergy/AdvReac Type Severity Reaction Status Date / Time Penicillins Allergy Intermediate Verified 05/22/23 11:21 [facility] Medical History (Updated 06/06/23 @ 11:35 by Don Ozuna MD) Hospital-acquired bacterial pneumonia ?J15.9 - Unspecified bacterial pneumonia (ICD-10) Bronchiectasis with acute lower respiratory infection ?J47.0 - Bronchiectasis with acute lower respiratory infection (ICD-10) Leukocytosis ?D72.829 - Elevated white blood cell count, unspecified (ICD-10) COVID-19 ?U07.1 - COVID-19 (ICD-10) GERD (gastroesophageal reflux disease) ?K21.9 - Gastro-esophageal reflux disease without esophagitis (ICD-10) 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34 - 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) History of gastrostomy tube placement 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 (ICD-10) Pneumonia ?J18.9 - Pneumonia, unspecified organism (ICD-10) Abdominal pain ?R10.9 - Unspecified abdominal pain (ICD-10) Abdominal pain, acute ?R10.9 - Unspecified abdominal pain (ICD-10) Surgical History History of fundoplication ?Z98.890 - Other specified postprocedural states (ICD-10) History of appendectomy ?Z90.49 - Acquired absence of other specified parts of digestive tract (ICD- 10) H/O chest tube placement ?Z98.890 - Other specified postprocedural states (ICD-10) History of facial surgery ?Z98.890 - Other specified postprocedural states (ICD-10) Family History Mother Family history of diabetes mellitus Family history of hypertension Grandmother Family history of diabetes mellitus Grandfather Family history of myocardial infarction Social History Within the past year, how often did you have a drink containing alcohol: 2-4 times a month Within the past year, how many standard drinks containing alcohol did you have on a typical day: 1 or 2 Within the past year, how often did you have six or more drinks on one occasion: weekly Total score: 3 Score interpretation: A score of 4 or more indicates drinking is likely to affect patient's safety. 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 Known occupational exposures/hazards: No Highest level of school completed/degree received: Associate degree: academic program Are you now , , , , never or living with a partner: In a typical week, how many times do you talk on the telephone with family, friends, or neighbors: 3 or more times per week How often do you get together with friends or relatives: once per week How often do you attend hoahaoism or yazdanism services: never Do you belong to any clubs or organizations such as hoahaoism groups unions, fraternal or athletic groups, or school groups: no Total score: 1 Score interpretation: A score of less than or equal to 1 indicates the most socially isolated. Little interest or pleasure in doing things: not at all Feeling down, depressed, or hopeless: not at all Feel stressed/tense/nervous/anxious/difficulty sleeping: not at all Do you think of yourself as: straight/heterosexual Gender Identity: male Exam Narrative Exam Narrative: eliezer appears to be status quo today. Vital signs are noted. He is pulse oximetry is 93-94 percent when he sits up on the 2 L of oxygen. Not unusually, it goes to ninety percent on room air. Skin and integument are normal with no petechiae purpura or exanthem or rash. He does not have any repetitive coughing. His lungs show chronic decreased aeration bilaterally. There is no subcutaneous emphysema. Heart rate and rhythm rate approximately one ten sinus rhythm. There is no leg edema. He is not complaining of any abdominal pain or discomfort today. Constitutional Vital Signs, click to edit/add: Last Vital Signs Temp 98.0 F 06/06/23 09:11 Pulse 116 H 06/06/23 09:11 Resp 22 06/06/23 09:11 BP 124/74 06/06/23 09:11 Pulse Ox 94 L 06/06/23 09:20 O2 Del Method Nasal Cannula 06/06/23 09:20 O2 Flow Rate 3 06/06/23 09:20 Course Vital Signs Vital signs: Vital Signs Temperature 98.0 F 06/06/23 09:11 Pulse Rate 116 H 06/06/23 09:11 Respiratory Rate 22 06/06/23 09:11 Blood Pressure 124/74 06/06/23 09:11 Pulse Oximetry 90 L 06/06/23 09:11 Oxygen Delivery Method Nasal Cannula 06/06/23 09:11 Oxygen Delivery Flow Rate 3 06/06/23 09:11 Temperature 98.0 F 06/06/23 09:11 Pulse Rate 116 H 06/06/23 09:11 Respiratory Rate 22 06/06/23 09:11 Blood Pressure 124/74 06/06/23 09:11 Pulse Oximetry 94 L 06/06/23 09:20 Oxygen Delivery Method Nasal Cannula 06/06/23 09:20 Oxygen Delivery Flow Rate 3 06/06/23 09:20 MDM - SOB/Dyspnea MDM Narrative Medical decision making narrative: laboratory studies show hypokalemia which may be due to his medications. We will start him on potassium here in the Emergency Room. Additionally his venous CO2 is better. His pulse oximetry remained stable. His respiratory panel is positive for enterovirus only. His chest x-ray is stable. White blood cell count is good today. Do not see any clinical indications to have him stay. I will give him refills on his albuterol, prednisone burst for seven days and also replenishing potassium Discharge Plan Discharge Chief Complaint: Upper Respiratory Infection Clinical Impression: Upper respiratory infection, Acute hypokalemia Patient Disposition: Home, Self-Care Time of Disposition Decision: 11:34 Prescriptions / Home Meds: No Action albuterol sulfate 2.5 mg /3 mL (0.083 %) solution for nebulization 2.5 mg inhalation QID dexlansoprazole [Dexilant] 60 mg capsule,biphase delayed releas 60 mg PO DAILY fluticasone propion-salmeterol [Advair Diskus] 250-50 mcg/dose blister with device 1 inh inhalation BID hydroxyzine pamoate 25 mg capsule 25 mg PO TID PRN (Reason: ANXIETY ) doxycycline monohydrate 100 mg tablet 100 mg PO BID 10 Days Qty: 20 0RF guaifenesin 600 mg tablet extended release 12hr 600 mg PO BID PRN (Reason: cough) Qty: 20 0RF amoxicillin-pot clavulanate 875-125 mg tablet 1 tab PO BID Qty: 20 0RF prednisone 20 mg tablet 20 mg PO DAILY 9 Days Qty: 18 0RF Rx Instructions: take 3 pills x 3 days, 2 for 3 days, 1 x 3 days albuterol sulfate 2.5 mg /3 mL (0.083 %) solution for nebulization 2.5 mg inhalation Q6H PRN (Reason: shortness of breath or wheezing) Qty: 75 0RF albuterol sulfate 90 mcg/actuation HFA aerosol inhaler 2 puff INHALATION Q6H PRN (Reason: shortness of breath or wheezing) Qty: 0 0RF Additional Instructions: KCl/prednisone/albuterol Stand Alone Forms: Portal Instructions Referrals: JORDAN PEÑA APRN [Primary Care Provider] - 1 week
--- NOTE | 2023-06-06 09:29 | XR_ITS ---
The [address] [address] Patient Name: FRANCIS GALVEZ MRN: [id number] date: 1990 Sex: M Assigned Patient Location: ER Current Patient Location: ED.MAIN Accession/Order Number: [id number] Exam Date: 06/06/2023 09:50 Report Date: 06/06/2023 10:03 At the request of: RUSTY MARSH Procedure: XR chest 1V EXAM: Portable chest REASON FOR EXAM: Dyspnea. TECHNIQUE: A portable frontal view of the chest was obtained. COMPARISON: 05/23/2023. FINDINGS: The lungs are well-inflated. There are stable chronic changes in the right lung and around the right hilum. The heart and mediastinum are stable in appearance. There is no mass or pathologic adenopathy. Osseous structures are normal. XR/XR chest 1V IMPRESSION: No definite acute cardiopulmonary process. Grossly stable chronic changes in the right lung. Electronically authenticated by: CHALINO CURRIE Date: 06/06/2023 10:03
--- NOTE | 2023-06-06 09:31 | ECG_ITS ---
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
[2023-06-06] MEDS: IPRATROPIUM/ALBUTEROL SULFATE 3 ML AMPUL.NEB IH (09:42)
[2023-06-06] MEDS: 0.9 % SODIUM CHLORIDE 1,000 ML 999 ML IV (09:48)
[2023-06-06 09:49] LABS: Adenovirus NOT DETECTED (NOT DETECTE); Bordetella parapertussis NOT DETECTED (NOT DETECTE); Coronavirus 229E NOT DETECTED (NOT DETECTE); Coronavirus HKU1 NOT DETECTED (NOT DETECTE); Coronavirus NL63 NOT DETECTED (NOT DETECTE); Coronavirus OC43 NOT DETECTED (NOT DETECTE); Human Metapneumovirus NOT DETECTED (NOT DETECTE); Influenza A NOT DETECTED (NOT DETECTE); Influenza B NOT DETECTED (NOT DETECTE); Mycoplasma pneumoniae NOT DETECTED (NOT DETECTE); Parainfluenza Virus 1 NOT DETECTED (NOT DETECTE); Parainfluenza Virus 2 NOT DETECTED (NOT DETECTE); Parainfluenza Virus 3 NOT DETECTED (NOT DETECTE); Parainfluenza Virus 4 NOT DETECTED (NOT DETECTE); Respiratory Syncytial Virus NOT DETECTED (NOT DETECTE); SARS-CoV-2 NOT DETECTED (NOT DETECTE)
[2023-06-06 09:53] LABS: Basophils Absolute Auto 0.1 10^3/uL (0.0-0.1); Basophils Percent Auto 0.6 % (0.2-2.0); Eosinophils Absolute Auto 0.2 10^3/uL (0.0-0.7); Eosinophils Percent Auto 1.1 % (0.9-7.0); Hemoglobin 14.7 g/dL (14.0-18.0); Immature Granulocytes Abs Auto 0.09 10^3/uL (0.00-0.03); Immature Granulocytes Pct Auto 0.6 % (0.0-0.5); Lymphocytes Absolute Auto 1.2 10^3/uL (1.2-3.8); Lymphocytes Percent Auto 7.3 % (20.5-60.0); Mean Corpuscular HGB Conc 32.7 g/dL (29.9-35.2); Mean Corpuscular Hemoglobin 29.4 pg (25.9-34.0); Mean Platelet Volume 10.9 fL (9.5-13.5); Monocytes Percent Auto 6.4 % (1.7-12.0); Neutrophils Absolute Auto 13.3 10^3/uL (1.4-6.5); Platelet Count 297 10^3/uL (150-450); Red Cell Distribution Width 13.2 % (11.0-15.0); White Blood Count 15.8 10^3/uL (4.0-11.0)
[2023-06-06 09:58] LABS: PCO2 VBG 40.8 mmHg (40.0-52.0); pH VBG 7.476 (7.330-7.430)
[2023-06-06 10:06] LABS: Anion Gap 6.6; BUN Creatinine Ratio 9.7; Calcium 8.7 mg/dL (8.5-10.1); Carbon Dioxide 31.4 mmol/L (21.0-32.0); Chloride 102 mmol/L (98-107); Estimated GFR (African America >60 (>=60); Estimated GFR (Non-African Ame >60 (>=60); Glucose 105 mg/dL (74-106); Sodium 137 mmol/L (136-145)
[2023-06-06 10:57] LABS: Human Rhinovirus/Enterovirus DETECTED (NOT DETECTE)
[2023-06-06] MEDS: POTASSIUM CHLORIDE 10 MEQ ER TABLET 40 MEQ PO (11:32)
== END 2023-06-06 11:50 | disposition home or self-care (01) ==
PROVIDERS: Emergency Provider Emergency Medicine Emergency Medical Services; PCP Nurse Practitioner Primary Care
DX: J06.9 Acute upper respiratory infection, unspecified (principal); E87.6 Hypokalemia; Z99.81 Dependence on supplemental oxygen; K21.9 Gastro-esophageal reflux disease without esophagitis; Q32.1 Other congenital malformations of trachea; J45.909 Unspecified asthma, uncomplicated; F17.220 Nicotine dependence, chewing tobacco, uncomplicated; F12.90 Cannabis use, unspecified, uncomplicated; Z79.899 Other long term (current) drug therapy; Z87.01 Personal history of pneumonia (recurrent); Z86.16 Personal history of COVID-19; Z20.822 Contact with and (suspected) exposure to COVID-19; B97.10 Unspecified enterovirus as the cause of diseases classified elsewhere
CPT/HCPCS: 0202U; 36415; 71045; 80048; 82800; 85025; 87798; 93005; 94640; 99285

== ENCOUNTER 2023-07-17 18:48 | Emergency (ER) | payer OTHER, MEDICARE, MEDICAID, SELFPAY ==
[2023-07-17 18:53] VITALS: BP 122/88; PULSE 97; RESP 18; TEMP 36.8; O2SAT 96; BMI 21.6
--- NOTE | 2023-07-17 18:58 | XR_ITS ---
The [address] [address] Patient Name: FRANCIS GALVEZ MRN: [id number] date: 1990 Sex: M Assigned Patient Location: ER Current Patient Location: ED.MAIN Accession/Order Number: [id number] Exam Date: 07/17/2023 19:10 Report Date: 07/17/2023 19:52 At the request of: RON MARTINEZ Procedure: XR hand LT min 3V EXAM: XR hand LT min 3V HISTORY: hand injury COMPARISON: None. TECHNIQUE: 3 views of the left hand are performed. FINDINGS: There is no acute fracture. The bony structures are intact. Normal soft tissues. No radiopaque foreign body. XR/XR hand LT min 3V IMPRESSION: No acute abnormality is seen. Electronically authenticated by: JOHN ALFARO Date: 07/17/2023 19:52
--- NOTE | 2023-07-17 19:00 | ED.UPPEXIN1 ---
Documented by User: JONATHAN Alvarenga 07/17/23 19:39 HPI - Extremity Injury (Upper) General Chief Complaint: Extremity Injury, Upper Stated Complaint: BWC - Laceration Time Seen by Provider: 07/17/23 18:58 Source: patient Mode of arrival: walk-in History of Present Illness HPI narrative: Patient is a 32-year-old male who presents to the emergency department for an injury to the left hand that occurred at work just prior to arrival. He states he cut his left third and left fourth fingers on a slicer at work. He has noted to have mild oozing from the left fourth finger, no significant bleeding from the left third finger. He is noted to have superficial skin avulsions to the fat pad of the distal phalanx to both of these fingers. Tetanus is up-to-date. No other associated injuries. He states he is having significant pain to the area. Related Data Home Medications Medication Instructions Recorded Confirmed albuterol sulfate 2.5 mg/3 mL 2.5 mg inhalation QID 01/12/23 05/23/23 (0.083 %) solution for nebulization dexlansoprazole 60 mg 60 mg PO DAILY 04/16/23 05/23/23 capsule,biphase delayed release (Dexilant) fluticasone 250 mcg-salmeterol 50 1 inh inhalation BID 05/15/23 05/23/23 mcg/dose blistr powdr for inhalation (Advair Diskus) hydroxyzine pamoate 25 mg capsule 25 mg PO TID PRN ANXIETY 05/23/23 05/24/23 Previous Rx's Medication Instructions Recorded albuterol sulfate 2.5 mg/3 mL 2.5 mg (3 mL) inhalation Q6H PRN 05/25/23 (0.083 %) solution for nebulization shortness of breath or wheezing #75 mL albuterol sulfate 90 mcg/actuation 2 puff inhalation Q6H PRN 05/25/23 aerosol inhaler shortness of breath or wheezing #0 grams amoxicillin 875 mg-potassium 1 tab PO BID #20 tabs 05/25/23 clavulanate 125 mg tablet doxycycline monohydrate 100 mg 100 mg PO BID 10 days #20 tabs 05/25/23 tablet guaifenesin 600 mg tablet, 600 mg PO BID PRN cough #20 tabs 05/25/23 extended release 12 hr prednisone 20 mg tablet 20 mg PO DAILY 9 days #18 tabs 05/25/23 Allergies Allergy/AdvReac Type Severity Reaction Status Date / Time Penicillins Allergy Intermediate Verified 05/22/23 11:21 Review of Systems ROS Constitutional Denies: fever or chills Ears, nose, mouth, and throat Denies: throat pain or nasal congestion Cardiovascular Denies: chest pain Respiratory Denies: shortness of breath or cough Gastrointestinal Denies: nausea or vomiting Genitourinary Denies: painful urination Musculoskeletal Denies: back pain or neck pain Integumentary/Breast Denies: rash Neurological Denies: headache Endocrine Denies: excessive urination Allergic/Immunologic Denies: hives or throat swelling [facility], [facility] Medical History (Updated 07/17/23 @ 19:26 by JONATHAN Alvarenga) Hospital-acquired bacterial pneumonia ?J15.9 - Unspecified bacterial pneumonia (ICD-10) Bronchiectasis with acute lower respiratory infection ?J47.0 - Bronchiectasis with acute lower respiratory infection (ICD-10) Leukocytosis ?D72.829 - Elevated white blood cell count, unspecified (ICD-10) COVID-19 ?U07.1 - COVID-19 (ICD-10) GERD (gastroesophageal reflux disease) ?K21.9 - Gastro-esophageal reflux disease without esophagitis (ICD-10) 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34 - 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) History of gastrostomy tube placement 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 (ICD-10) Pneumonia ?J18.9 - Pneumonia, unspecified organism (ICD-10) Abdominal pain ?R10.9 - Unspecified abdominal pain (ICD-10) Abdominal pain, acute ?R10.9 - Unspecified abdominal pain (ICD-10) Surgical History History of fundoplication ?Z98.890 - Other specified postprocedural states (ICD-10) History of appendectomy ?Z90.49 - Acquired absence of other specified parts of digestive tract (ICD-10) H/O chest tube placement ?Z98.890 - Other specified postprocedural states (ICD-10) History of facial surgery ?Z98.890 - Other specified postprocedural states (ICD-10) Family History Mother Family history of diabetes mellitus Family history of hypertension Grandmother Family history of diabetes mellitus Grandfather Family history of myocardial infarction Social History Within the past year, how often did you have a drink containing alcohol: 2-4 times a month Within the past year, how many standard drinks containing alcohol did you have on a typical day: 1 or 2 Within the past year, how often did you have six or more drinks on one occasion: weekly Total score: 3 Score interpretation: A score of 4 or more indicates drinking is likely to affect patient's safety. 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 Known occupational exposures/hazards: No Highest level of school completed/degree received: Associate degree: academic program Are you now , , , , never or living with a partner: In a typical week, how many times do you talk on the telephone with family, friends, or neighbors: 3 or more times per week How often do you get together with friends or relatives: once per week How often do you attend yazidi or spiritism services: never Do you belong to any clubs or organizations such as yazidi groups unions, [employer] or athletic groups, or school groups: no Total score: 1 Score interpretation: A score of less than or equal to 1 indicates the most socially isolated. Little interest or pleasure in doing things: not at all Feeling down, depressed, or hopeless: not at all Feel stressed/tense/nervous/anxious/difficulty sleeping: not at all Do you think of yourself as: straight/heterosexual Gender Identity: male Exam Narrative Exam Narrative: Gen.: Awake, alert, in no distress Head: Normocephalic, atraumatic ENT: Moist mucous membranes Respiratory: No respiratory distress Extremities: 1 cm skin avulsion noted to the ulnar aspect of the fat pad, distal phalanx of the left fourth finger. There is no skin avulsion over the joint. Minimal venous oozing is noted. 0.5 cm skin avulsion from the ulnar aspect of the fat pad of the left third finger, Distal phalanx. No active bleeding noted. No lacerations or skin avulsions noted over the joints. Normal flexion and extension of the joints. Patient has diffuse tenderness to palpation of the entire left hand. 2+ left radial pulse. The edges of the skin avulsions are not able to be approximated together. Psych: Normal mood and affect Neuro: No focal neuro deficit Skin: Warm, dry Constitutional Vital Signs, click to edit/add: Last Vital Signs Temp 98.2 F 07/17/23 18:53 Pulse 97 H 07/17/23 18:53 Resp 18 07/17/23 18:53 BP 122/88 07/17/23 18:53 Pulse Ox 96 07/17/23 18:53 O2 Del Method Room Air 07/17/23 18:53 Course Vital Signs Vital signs: Vital Signs Temperature 98.2 F 07/17/23 18:53 Pulse Rate 97 H 07/17/23 18:53 Respiratory Rate 18 07/17/23 18:53 Blood Pressure 122/88 07/17/23 18:53 Pulse Oximetry 96 07/17/23 18:53 Oxygen Delivery Method Room Air 07/17/23 18:53 Temperature 98.2 F 07/17/23 18:53 Pulse Rate 97 H 07/17/23 18:53 Respiratory Rate 18 07/17/23 18:53 Blood Pressure 122/88 07/17/23 18:53 Pulse Oximetry 96 07/17/23 18:53 Oxygen Delivery Method Room Air 07/17/23 18:53 MDM - Extremity Injury (Upper) MDM Narrative Medical decision making narrative: Occasion for suture repair, x-rays are unremarkable and the patient was treated for pain in the ER. Tetanus is up-to-date. The area of skin avulsion was cleansed, dressed with Gelfoam and sterile dressing. Patient is neurovascularly intact at discharge. Follow-up with occupational health. Return to the ER if symptoms change or worsen Medical Records Attestation: I reviewed the patient's medical records. Imaging Data XR hand: Attestation: I have reviewed the pertinent imaging results. Radiologist's impression: ITS Impressions Hand X-Ray 07/17/23 18:58 IMPRESSION: No acute abnormality is seen. Electronically authenticated by: JOHN ALFARO Date: 07/17/2023 19:52 Discharge Plan Discharge Chief Complaint: Extremity Injury, Upper Clinical Impression: Avulsion of skin Patient Disposition: Home, Self-Care Time of Disposition Decision: 19:25 Condition: Good Prescriptions / Home Meds: No Action albuterol sulfate 2.5 mg /3 mL (0.083 %) solution for nebulization 2.5 mg inhalation QID dexlansoprazole [Dexilant] 60 mg capsule,biphase delayed releas 60 mg PO DAILY fluticasone propion-salmeterol [Advair Diskus] 250-50 mcg/dose blister with device 1 inh inhalation BID hydroxyzine pamoate 25 mg capsule 25 mg PO TID PRN (Reason: ANXIETY ) doxycycline monohydrate 100 mg tablet 100 mg PO BID 10 Days Qty: 20 0RF guaifenesin 600 mg tablet extended release 12hr 600 mg PO BID PRN (Reason: cough) Qty: 20 0RF amoxicillin-pot clavulanate 875-125 mg tablet 1 tab PO BID Qty: 20 0RF prednisone 20 mg tablet 20 mg PO DAILY 9 Days Qty: 18 0RF Rx Instructions: take 3 pills x 3 days, 2 for 3 days, 1 x 3 days albuterol sulfate 2.5 mg /3 mL (0.083 %) solution for nebulization 2.5 mg inhalation Q6H PRN (Reason: shortness of breath or wheezing) Qty: 75 0RF albuterol sulfate 90 mcg/actuation HFA aerosol inhaler 2 puff INHALATION Q6H PRN (Reason: shortness of breath or wheezing) Qty: 0 0RF Instructions: Skin Avulsion (ED) Stand Alone Forms: Portal Instructions Referrals: [facility]Outside[facility] - 1 week Discharge Date/Time: 07/17/23 20:08 Documented by User: Sukhi Olivares 07/18/23 01:34 HPI - Extremity Injury (Upper) General Chief Complaint: Extremity Injury, Upper Stated Complaint: BWC - Laceration Time Seen by Provider: 07/17/23 18:58 Related Data Home Medications Medication Instructions Recorded Confirmed albuterol sulfate 2.5 mg/3 mL 2.5 mg inhalation QID 01/12/23 05/23/23 (0.083 %) solution for nebulization dexlansoprazole 60 mg 60 mg PO DAILY 04/16/23 05/23/23 capsule,biphase delayed release (Dexilant) fluticasone 250 mcg-salmeterol 50 1 inh inhalation BID 05/15/23 05/23/23 mcg/dose blistr powdr for inhalation (Advair Diskus) hydroxyzine pamoate 25 mg capsule 25 mg PO TID PRN ANXIETY 05/23/23 05/24/23 Previous Rx's Medication Instructions Recorded albuterol sulfate 2.5 mg/3 mL 2.5 mg (3 mL) inhalation Q6H PRN 05/25/23 (0.083 %) solution for nebulization shortness of breath or wheezing #75 mL albuterol sulfate 90 mcg/actuation 2 puff inhalation Q6H PRN 05/25/23 aerosol inhaler shortness of breath or wheezing #0 grams amoxicillin 875 mg-potassium 1 tab PO BID #20 tabs 05/25/23 clavulanate 125 mg tablet doxycycline monohydrate 100 mg 100 mg PO BID 10 days #20 tabs 05/25/23 tablet guaifenesin 600 mg tablet, 600 mg PO BID PRN cough #20 tabs 05/25/23 extended release 12 hr prednisone 20 mg tablet 20 mg PO DAILY 9 days #18 tabs 05/25/23 Allergies Allergy/AdvReac Type Severity Reaction Status Date / Time Penicillins Allergy Intermediate Verified 05/22/23 11:21 [facility] Medical History (Updated 07/17/23 @ 19:26 by JONATHAN Alvarenga) Hospital-acquired bacterial pneumonia ?J15.9 - Unspecified bacterial pneumonia (ICD-10) Bronchiectasis with acute lower respiratory infection ?J47.0 - Bronchiectasis with acute lower respiratory infection (ICD-10) Leukocytosis ?D72.829 - Elevated white blood cell count, unspecified (ICD-10) COVID-19 ?U07.1 - COVID-19 (ICD-10) GERD (gastroesophageal reflux disease) ?K21.9 - Gastro-esophageal reflux disease without esophagitis (ICD-10) 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34 - 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) History of gastrostomy tube placement 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 (ICD-10) Pneumonia ?J18.9 - Pneumonia, unspecified organism (ICD-10) Abdominal pain ?R10.9 - Unspecified abdominal pain (ICD-10) Abdominal pain, acute ?R10.9 - Unspecified abdominal pain (ICD-10) Surgical History History of fundoplication ?Z98.890 - Other specified postprocedural states (ICD-10) History of appendectomy ?Z90.49 - Acquired absence of other specified parts of digestive tract (ICD-10) H/O chest tube placement ?Z98.890 - Other specified postprocedural states (ICD-10) History of facial surgery ?Z98.890 - Other specified postprocedural states (ICD-10) Family History Mother Family history of diabetes mellitus Family history of hypertension Grandmother Family history of diabetes mellitus Grandfather Family history of myocardial infarction Social History Within the past year, how often did you have a drink containing alcohol: 2-4 times a month Within the past year, how many standard drinks containing alcohol did you have on a typical day: 1 or 2 Within the past year, how often did you have six or more drinks on one occasion: weekly Total score: 3 Score interpretation: A score of 4 or more indicates drinking is likely to affect patient's safety. 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 Known occupational exposures/hazards: No Highest level of school completed/degree received: Associate degree: academic program Are you now , , , , never or living with a partner: In a typical week, how many times do you talk on the telephone with family, friends, or neighbors: 3 or more times per week How often do you get together with friends or relatives: once per week How often do you attend yazidi or spiritism services: never Do you belong to any clubs or organizations such as yazidi groups unions, fraternal or athletic groups, or school groups: no Total score: 1 Score interpretation: A score of less than or equal to 1 indicates the most socially isolated. Little interest or pleasure in doing things: not at all Feeling down, depressed, or hopeless: not at all Feel stressed/tense/nervous/anxious/difficulty sleeping: not at all Do you think of yourself as: straight/heterosexual Gender Identity: male Exam Constitutional Vital Signs, click to edit/add: Last Vital Signs Temp 98.2 F 07/17/23 18:53 Pulse 97 H 02/20/24 18:53 Resp 18 07/17/23 18:53 BP 122/88 07/17/23 18:53 Pulse Ox 96 07/17/23 18:53 O2 Del Method Room Air 07/17/23 18:53 Course Vital Signs Vital signs: Vital Signs Temperature 98.2 F 07/17/23 18:53 Pulse Rate 97 H 07/17/23 18:53 Respiratory Rate 18 07/17/23 18:53 Blood Pressure 122/88 07/17/23 18:53 Pulse Oximetry 96 07/17/23 18:53 Oxygen Delivery Method Room Air 07/17/23 18:53 Temperature 98.2 F 07/17/23 18:53 Pulse Rate 97 H 07/17/23 18:53 Respiratory Rate 18 07/17/23 18:53 Blood Pressure 122/88 07/17/23 18:53 Pulse Oximetry 96 07/17/23 18:53 Oxygen Delivery Method Room Air 07/17/23 18:53 MDM - Extremity Injury (Upper) MDM Narrative Medical decision making narrative: No need for suture repair, x-rays are unremarkable and the patient was treated for pain in the ER. Tetanus is up-to-date. The area of skin avulsion was cleansed, dressed with Gelfoam and sterile dressing. Patient is neurovascularly intact at discharge. Follow-up with occupational health. Return to the ER if symptoms change or worsen For this patient encounter I reviewed the mid-level provider?s documentation, medical decision-making and treatment plan, and I personally spent time with this patient. Shared APC visit, physician attestation: [id number]: The visit was performed by both a physician and an APC. I performed all aspects of MDM as documented. - Torres DO Imaging Data XR hand: Radiologist's impression: ITS Impressions Hand X-Ray 07/17/23 18:58
[2023-07-17] MEDS: HYDROCODONE/ACET 5-325 MG TABLET 1 TAB PO (19:15)
[2023-07-17] MEDS: SURGIFOAM GEL SPONGE SIZE 100 1 EACH TOPICAL (20:05)
== END 2023-07-17 20:08 | disposition home or self-care (01) ==
PROVIDERS: Emergency Provider Emergency Medicine; PCP Nurse Practitioner Primary Care
DX: S61.203A Unspecified open wound of left middle finger without damage to nail, initial encounter (principal); S61.205A Unspecified open wound of left ring finger without damage to nail, initial encounter; W26.8XXA Contact with other sharp object(s), not elsewhere classified, initial encounter
CPT/HCPCS: 73130; 99283

== ENCOUNTER 2023-08-22 07:36 | Emergency (ER) | payer MEDICARE, MEDICAID, SELFPAY ==
[2023-08-22] VITALS (17 sets, daily range): BP systolic 114–121; BP diastolic 70–82; PULSE 92–117; RESP 20–24; TEMP 37.1–39.4; O2SAT 89–97; BMI 21.1
--- NOTE | 2023-08-22 07:47 | XR_ITS ---
[address] [address] Patient Name: FRANCIS GALVEZ MRN: [id number] date: 1990 Sex: M Assigned Patient Location: ER Current Patient Location: ED.MAIN Accession/Order Number: [id number] Exam Date: 08/22/2023 08:00 Report Date: 08/22/2023 08:20 At the request of: RUSTY MARSH Procedure: XR chest 1V EXAMINATION: XR chest 1V HISTORY: shortness of breath COMPARISON: XR chest 06/06/2023, CT chest 05/23/2023, XR chest 06/04/2019 FINDINGS: LUNGS: Hyperexpanded lungs with bilateral bronchial wall thickening and right perihilar soft tissue opacities. VASCULATURE: No increased pulmonary vasculature. PLEURA: Suspect small bilateral pleural effusions. No pneumothorax. CARDIAC: No cardiomegaly or cardiac silhouette abnormality. MEDIASTINUM: No visible mass or adenopathy. BONES: No fracture or visible bone lesion. OTHER: Negative. XR/XR chest 1V IMPRESSION: 1. No appreciable acute infiltrates or change. 2. Stable, chronic bronchial wall thickening and right perihilar soft tissue opacities; nonspecific. 3. Small bilateral pleural effusions; unchanged. Electronically authenticated by: GUS BANERJEE Date: 08/22/2023 08:20
[2023-08-22] MEDS: 0.9 % SODIUM CHLORIDE 1,000 ML 999 ML IV (07:56)
[2023-08-22] MEDS: ACETAMINOPHEN 500 MG TABLET 1000 MG PO (07:56)
[2023-08-22] MEDS: IPRATROPIUM/ALBUTEROL SULFATE 3 ML AMPUL.NEB IH (08:04)
[2023-08-22 08:20] LABS: Basophils Absolute Auto 0.1 10^3/uL (0.0-0.1); Basophils Percent Auto 0.9 % (0.2-2.0); Eosinophils Percent Auto 0.2 % (0.9-7.0); Hemoglobin 15.8 g/dL (14.0-18.0); Immature Granulocytes Abs Auto 0.03 10^3/uL (0.00-0.03); Immature Granulocytes Pct Auto 0.2 % (0.0-0.5); Lymphocytes Percent Auto 6.6 % (20.5-60.0); Mean Corpuscular HGB Conc 32.9 g/dL (29.9-35.2); Mean Corpuscular Hemoglobin 29.3 pg (25.9-34.0); Mean Corpuscular Volume 88.9 fL (80.0-94.0); Mean Platelet Volume 11.6 fL (9.5-13.5); Monocytes Absolute Auto 1.2 10^3/uL (0.3-0.8); Monocytes Percent Auto 8.1 % (1.7-12.0); Neutrophils Absolute Auto 12.6 10^3/uL (1.4-6.5); Platelet Count 252 10^3/uL (150-450); Red Cell Distribution Width 13.4 % (11.0-15.0)
[2023-08-22 08:24] LABS: Anion Gap 16.1; BUN Creatinine Ratio 8.5; Calcium 8.7 mg/dL (8.5-10.1); Carbon Dioxide 24.4 mmol/L (21.0-32.0); Chloride 100 mmol/L (98-107); Estimated GFR (African America >60 (>=60); Estimated GFR (Non-African Ame >60 (>=60); Glucose 120 mg/dL (74-106); Potassium 3.5 mmol/L (3.5-5.1); Sodium 137 mmol/L (136-145)
[2023-08-22 08:32] LABS: Lactate/Lactic Acid 1.2 mmol/L (0.4-2.0)
[2023-08-22 08:33] LABS: Influenza Virus A Antigen Negative; Influenza Virus B Antigen Negative; Internal Control Within Normal Limits; SARS-CoV-2 Ag NEGATIVE (NEGATIVE)
[2023-08-22 09:16] LABS: Adenovirus NOT DETECTED (NOT DETECTE); Bordetella parapertussis NOT DETECTED (NOT DETECTE); Coronavirus HKU1 NOT DETECTED (NOT DETECTE); Coronavirus NL63 NOT DETECTED (NOT DETECTE); Coronavirus OC43 NOT DETECTED (NOT DETECTE); Human Metapneumovirus NOT DETECTED (NOT DETECTE); Human Rhinovirus/Enterovirus NOT DETECTED (NOT DETECTE); Influenza A NOT DETECTED (NOT DETECTE); Mycoplasma pneumoniae NOT DETECTED (NOT DETECTE); Parainfluenza Virus 1 NOT DETECTED (NOT DETECTE); Parainfluenza Virus 2 NOT DETECTED (NOT DETECTE); Parainfluenza Virus 3 NOT DETECTED (NOT DETECTE); Parainfluenza Virus 4 NOT DETECTED (NOT DETECTE); Respiratory Syncytial Virus NOT DETECTED (NOT DETECTE); SARS-CoV-2 NOT DETECTED (NOT DETECTE)
[2023-08-22 10:28] LABS: Coronavirus 229E DETECTED (NOT DETECTE); Influenza B DETECTED (NOT DETECTE)
--- NOTE | 2023-08-22 10:53 | ED_ITS ---
HPI - General Adult General Chief complaint: Nausea/Vomiting/Diarrhea Stated complaint: flu like symptoms Time Seen by Provider: 08/22/23 09:13 Source: patient Mode of arrival: walk-in Limitations: no limitations History of Present Illness HPI narrative: This patient well-known to our service here here with the above complaints and also some shortness of breath. He is known to have severe lung disease. Unfortunately the family members with whom he lives, developed influenza confirmed by testing. Now he has aches and pains and chills and high fever. He was given antipyretic medication on arrival here. Luis generally uses nighttime oxygen but does not use oxygen during the daytime. He remained on pulse oximetry throughout his entire stay here. He has generalized myalgias and arthralgias mild headache. Related Data Home Medications ?Medication ?Instructions ?Recorded ?Confirmed albuterol sulfate 2.5 mg/3 mL 2.5 mg inhalation QID 01/12/23 05/23/23 (0.083 %) solution for nebulization dexlansoprazole 60 mg 60 mg PO DAILY 04/16/23 05/23/23 capsule,biphase delayed release (Dexilant) fluticasone 250 mcg-salmeterol 50 1 inh inhalation BID 05/15/23 05/23/23 mcg/dose blistr powdr for inhalation (Advair Diskus) hydroxyzine pamoate 25 mg capsule 25 mg PO TID PRN ANXIETY 05/23/23 05/24/23 Previous Rx's ?Medication ?Instructions ?Recorded albuterol sulfate 2.5 mg/3 mL 2.5 mg (3 mL) inhalation Q6H PRN 05/25/23 (0.083 %) solution for nebulization shortness of breath or wheezing #75 mL albuterol sulfate 90 mcg/actuation 2 puff inhalation Q6H PRN 05/25/23 aerosol inhaler shortness of breath or wheezing #0 grams amoxicillin 875 mg-potassium 1 tab PO BID #20 tabs 05/25/23 clavulanate 125 mg tablet doxycycline monohydrate 100 mg 100 mg PO BID 10 days #20 tabs 05/25/23 tablet guaifenesin 600 mg tablet, 600 mg PO BID PRN cough #20 tabs 05/25/23 extended release 12 hr prednisone 20 mg tablet 20 mg PO DAILY 9 days #18 tabs 05/25/23 Allergies Allergy/AdvReac Type Severity Reaction Status Date / Time Penicillins Allergy Intermediate Verified 05/22/23 11:21 [facility] Medical History (Updated 08/22/23 @ 10:57 by Don Ozuna MD) Hospital-acquired bacterial pneumonia ?J15.9 - Unspecified bacterial pneumonia (ICD-10) Bronchiectasis with acute lower respiratory infection ?J47.0 - Bronchiectasis with acute lower respiratory infection (ICD-10) Leukocytosis ?D72.829 - Elevated white blood cell count, unspecified (ICD-10) COVID-19 ?U07.1 - COVID-19 (ICD-10) GERD (gastroesophageal reflux disease) ?K21.9 - Gastro-esophageal reflux disease without esophagitis (ICD-10) 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34 - 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) History of gastrostomy tube placement 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 (ICD-10) Pneumonia ?J18.9 - Pneumonia, unspecified organism (ICD-10) Abdominal pain ?R10.9 - Unspecified abdominal pain (ICD-10) Abdominal pain, acute ?R10.9 - Unspecified abdominal pain (ICD-10) Surgical History History of fundoplication ?Z98.890 - Other specified postprocedural states (ICD-10) History of appendectomy ?Z90.49 - Acquired absence of other specified parts of digestive tract (ICD- 10) H/O chest tube placement ?Z98.890 - Other specified postprocedural states (ICD-10) History of facial surgery ?Z98.890 - Other specified postprocedural states (ICD-10) Family History Mother Family history of diabetes mellitus Family history of hypertension Grandmother Family history of diabetes mellitus Grandfather Family history of myocardial infarction Social History Within the past year, how often did you have a drink containing alcohol: 2-4 times a month Within the past year, how many standard drinks containing alcohol did you have on a typical day: 1 or 2 Within the past year, how often did you have six or more drinks on one occasion: weekly Total score: 3 Score interpretation: A score of 4 or more indicates drinking is likely to affect patient's safety. 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 Known occupational exposures/hazards: No Highest level of school completed/degree received: Associate degree: academic program Are you now , , , , never or living with a partner: In a typical week, how many times do you talk on the telephone with family, friends, or neighbors: 3 or more times per week How often do you get together with friends or relatives: once per week How often do you attend cheondoism or episcopal services: never Do you belong to any clubs or organizations such as cheondoism groups unions, fraternal or athletic groups, or school groups: no Total score: 1 Score interpretation: A score of less than or equal to 1 indicates the most socially isolated. Little interest or pleasure in doing things: not at all Feeling down, depressed, or hopeless: not at all Feel stressed/tense/nervous/anxious/difficulty sleeping: not at all Do you think of yourself as: straight/heterosexual Gender Identity: male Exam Narrative Exam Narrative: Luis looks like he does not feel well today with a high fever on presentation. He did defervesce with fever reducers here in the ER. He is awake alert well-known to myself. Is not an extremis. His skin is warm and dry mucous membranes are moist and pink. Examination of his lungs he has chronic scattered rhonchi bilaterally. Very minimal wheezing is noted. Heart sounds are normal with borderline tachycardia probably secondary to his fever. He has no complaints of rash today. Neurological oriented x 3 no confusion no evidence of meningeal irritation. Constitutional Vital Signs, click to edit/add: Last Vital Signs Temp 98.8 F 08/22/23 10:15 Pulse 108 H 08/22/23 10:15 Resp 24 08/22/23 10:15 BP 114/70 08/22/23 10:15 Pulse Ox 95 08/22/23 10:32 O2 Del Method Nasal Cannula 08/22/23 10:15 O2 Flow Rate 2 08/22/23 10:15 Course Vital Signs Vital signs: Vital Signs Temperature 102.9 F H 08/22/23 07:43 Pulse Rate 117 H 08/22/23 07:43 Respiratory Rate 20 08/22/23 07:43 Blood Pressure 121/82 08/22/23 07:43 Pulse Oximetry 89 L 08/22/23 07:43 Oxygen Delivery Method Room Air 08/22/23 07:43 Oxygen Delivery Flow Rate 2 08/22/23 07:43 Temperature 98.8 F 08/22/23 10:15 Pulse Rate 108 H 08/22/23 10:15 Respiratory Rate 24 08/22/23 10:15 Blood Pressure 114/70 08/22/23 10:15 Pulse Oximetry 95 08/22/23 10:32 Oxygen Delivery Method Nasal Cannula 08/22/23 10:15 Oxygen Delivery Flow Rate 2 08/22/23 10:15 Medical Decision Making [facility] Narrative Medical decision making narrative: Patient's initial influenza testing was negative. We have been seeing false negatives on this so therefore a respiratory panel was done. That panel confirms influenza. His chest x-ray shows no acute changes. The remainder of his laboratory testing was essentially baseline for him. He was given a DuoNeb here. When the respiratory panel was completed we ambulate him in the hallway and his pulse oximetry stayed at 92% on room air. He did not desaturate at all. I will start him on Tamiflu since he is at high risk. He is to take plenty of fluids at home, use fever reducers and start the Tamiflu. Try he knows to come back to emergency room if his condition changes. I also encouraged him to use low-flow oxygen at 1 L Lab Data Labs: Lab Results 08/22/23 08/22/23 Range/Units 07:50 08:00 WBC 15.0 H (4.0-11.0) 10^3/uL RBC 5.40 (4.70-6.10) 10^6/uL Hgb 15.8 (14.0-18.0) g/dL Hct 48.0 (42.0-54.0) % MCV 88.9 (80.0-94.0) fL MCH 29.3 (25.9-34.0) pg MCHC 32.9 (29.9-35.2) g/dL RDW 13.4 (11.0-15.0) % Plt Count 252 (150-450) 10^3/uL MPV 11.6 (9.5-13.5) fL Neut % (Auto) 84.0 H (43.0-75.0) % Lymph % (Auto) 6.6 L (20.5-60.0) % Woodson % (Auto) 8.1 (1.7-12.0) % Eos % (Auto) 0.2 L (0.9-7.0) % Baso % (Auto) 0.9 (0.2-2.0) % Neut # (Auto) 12.6 H (1.4-6.5) 10^3/uL Lymph # (Auto) 1.0 L (1.2-3.8) 10^3/uL Woodson # (Auto) 1.2 H (0.3-0.8) 10^3/uL Eos # (Auto) 0.0 (0.0-0.7) 10^3/uL Baso # (Auto) 0.1 (0.0-0.1) 10^3/uL Abs Immat Gran (auto) 0.03 (0.00-0.03) 10^3/uL Imm/Tot Granulo (auto) 0.2 (0.0-0.5) % Sodium 137 (136-145) mmol/L Potassium 3.5 (3.5-5.1) mmol/L Chloride 100 (98-107) mmol/L Carbon Dioxide 24.4 (21.0-32.0) mmol/L Anion Gap 16.1 BUN 7.0 (7.0-18.0) mg/dL Creatinine 0.82 (0.70-1.30) mg/dL Est GFR ( Amer) >60 (>=60) Est GFR (Non-Af Amer) >60 (>=60) BUN/Creatinine Ratio 8.5 Glucose 120 H (74-106) mg/dL Lactate 1.2 (0.4-2.0) mmol/L Calcium 8.7 (8.5-10.1) mg/dL Adenovirus (PCR) Not detected (NOT DETECTE) C. pneumoniae DNA (PCR) Not detected (NOT DETECTE) Coronavirus Type OC43 Not detected (NOT DETECTE) Coronavirus Type HKU1 Not detected (NOT DETECTE) Coronavirus Type 229E Detected A (NOT DETECTE) Coronavirus Type NL63 Not detected (NOT DETECTE) Human Metapneumovir PCR Not detected (NOT DETECTE) Influenza Type A Ag Negative Influenza Type B Ag Negative M. pneumoniae (PCR) Not detected (NOT DETECTE) Parainfluenza PCR Not detected (NOT DETECTE) Parainfluenza 2 (PCR) Not detected (NOT DETECTE) Parainfluenza 3 (PCR) Not detected (NOT DETECTE) Parainfluenza 4 (PCR) Not detected (NOT DETECTE) RSV (RT-PCR) Not detected (NOT DETECTE) Entero/Rhino (PCR) Not detected (NOT DETECTE) SARS-CoV-2 (PCR) Not detected (NOT DETECTE) SARS-CoV-2 Ag (CV2AG) Negative (NEGATIVE) Bordetella pertussis (PCR) Not detected (NOT DETECTE) B parapertussis DNA PCR Not detected (NOT DETECTE) Influenza Type A (PCR) Not detected (NOT DETECTE) Influenza Type B (PCR) Detected A (NOT DETECTE) Discharge Plan Discharge Stand Alone Forms: Portal Instructions Chief Complaint: Nausea/Vomiting/Diarrhea Clinical Impression: Influenza Patient Disposition: Home, Self-Care Time of Disposition Decision: 10:57 Prescriptions / Home Meds: No Action albuterol sulfate 2.5 mg /3 mL (0.083 %) solution for nebulization 2.5 mg inhalation QID dexlansoprazole [Dexilant] 60 mg capsule,biphase delayed releas 60 mg PO DAILY fluticasone propion-salmeterol [Advair Diskus] 250-50 mcg/dose blister with device 1 inh inhalation BID hydroxyzine pamoate 25 mg capsule 25 mg PO TID PRN (Reason: ANXIETY ) doxycycline monohydrate 100 mg tablet 100 mg PO BID 10 Days Qty: 20 0RF guaifenesin 600 mg tablet extended release 12hr 600 mg PO BID PRN (Reason: cough) Qty: 20 0RF amoxicillin-pot clavulanate 875-125 mg tablet 1 tab PO BID Qty: 20 0RF prednisone 20 mg tablet 20 mg PO DAILY 9 Days Qty: 18 0RF Rx Instructions: take 3 pills x 3 days, 2 for 3 days, 1 x 3 days albuterol sulfate 2.5 mg /3 mL (0.083 %) solution for nebulization 2.5 mg inhalation Q6H PRN (Reason: shortness of breath or wheezing) Qty: 75 0RF albuterol sulfate 90 mcg/actuation HFA aerosol inhaler 2 puff INHALATION Q6H PRN (Reason: shortness of breath or wheezing) Qty: 0 0RF Print Language: Hungarian Additional Instructions: Continue Tamiflu for 5 days. 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 Drink extra fluids Referrals: Physician,Non-Staff, MD [Primary Care Provider] - 1 week
[2023-08-22] MEDS: OSELTAMIVIR PHOSPHATE 75 MG CAPSULE PO (11:01)
== END 2023-08-22 11:14 | disposition home or self-care (01) ==
PROVIDERS: Emergency Provider Emergency Medicine Emergency Medical Services
DX: J10.1 Influenza due to other identified influenza virus with other respiratory manifestations (principal); J98.4 Other disorders of lung; Z99.81 Dependence on supplemental oxygen; Z79.899 Other long term (current) drug therapy; Z20.822 Contact with and (suspected) exposure to COVID-19; F17.220 Nicotine dependence, chewing tobacco, uncomplicated; F12.90 Cannabis use, unspecified, uncomplicated; Z98.890 Other specified postprocedural states; Z90.49 Acquired absence of other specified parts of digestive tract; Q32.1 Other congenital malformations of trachea; G47.34 Idiopathic sleep related nonobstructive alveolar hypoventilation; K21.9 Gastro-esophageal reflux disease without esophagitis; Z86.16 Personal history of COVID-19
CPT/HCPCS: 0202U; 36415; 71045; 80048; 83605; 85025; 87040; 87804; 87811; 94640; 96360; 99284

== ENCOUNTER 2023-08-27 12:23 | Inpatient (IN) | payer MEDICARE, MEDICAID, SELFPAY ==
[2023-08-27] VITALS (18 sets, daily range): BP systolic 107–132; BP diastolic 62–82; PULSE 110–130; TEMP 36.6–38.4; O2SAT 88–98; BMI 21.8; BMI 21.1
--- NOTE | 2023-08-27 12:36 | ECG_ITS ---
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
--- NOTE | 2023-08-27 12:36 | XR_ITS ---
[address] [address] Patient Name: FRANCIS GALVEZ MRN: [id number] date: 1990 Sex: M Assigned Patient Location: ER Current Patient Location: ER Accession/Order Number: [id number] Exam Date: 08/27/2023 13:12 Report Date: 08/27/2023 13:33 At the request of: RUSTY MARSH Procedure: XR chest 1V EXAMINATION: XR chest 1V HISTORY: Dyspnea COMPARISON: XR chest 08/22/2023, 02/06/2023 FINDINGS: LUNGS: 9 cm increased opacity within left midlung. Chronic right perihilar prominence and opacity. VASCULATURE: No increased pulmonary vasculature. PLEURA: Chronic blunting of left lateral costophrenic angle. CARDIAC: No cardiomegaly or cardiac silhouette abnormality. MEDIASTINUM: No visible mass or adenopathy. BONES: No fracture or visible bone lesion. OTHER: Negative. XR/XR chest 1V IMPRESSION: 1. New, moderate amount of infiltrates within left midlung suggestive of pneumonia. 2. Stable to slight increase in chronic right perihilar soft tissue prominence; nonspecific. 3. Grossly stable chronic bilateral small pleural effusions. Electronically authenticated by: GUS BANERJEE Date: 08/27/2023 13:33
--- NOTE | 2023-08-27 12:36 | ED_ITS ---
HPI - SOB/Dyspnea General Chief Complaint: Shortness of Breath/Dyspnea Stated Complaint: SOB, CHILLS Time Seen by Provider: 08/27/23 12:36 Source: patient Mode of arrival: walk-in Limitations: no limitations History of Present Illness HPI Narrative: Patient here with think shortness of breath. Patient was seen last week with confirmed influenza. He uses oxygen at home. He was placed on Tamiflu from the ER physician. He says he has increasing shortness of breath. He has severe interstitial lung disease and is oxygen dependent. His pulse ox here is 92% on room air. He is still running a fever of 101.2. He does have tachypnea. Historically I saw him last week and confirmed influenza. 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 However just yesterday he started feeling really bad and had increasing dyspnea. He is well-known to our development spec here. Related Data Home Medications ?Medication ?Instructions ?Recorded ?Confirmed albuterol sulfate 2.5 mg/3 mL 2.5 mg inhalation QID 01/12/23 05/23/23 (0.083 %) solution for nebulization dexlansoprazole 60 mg 60 mg PO DAILY 04/16/23 05/23/23 capsule,biphase delayed release (Dexilant) fluticasone 250 mcg-salmeterol 50 1 inh inhalation BID 05/15/23 05/23/23 mcg/dose blistr powdr for inhalation (Advair Diskus) hydroxyzine pamoate 25 mg capsule 25 mg PO TID PRN ANXIETY 05/23/23 05/24/23 Previous Rx's ?Medication ?Instructions ?Recorded albuterol sulfate 2.5 mg/3 mL 2.5 mg (3 mL) inhalation Q6H PRN 05/25/23 (0.083 %) solution for nebulization shortness of breath or wheezing #75 mL albuterol sulfate 90 mcg/actuation 2 puff inhalation Q6H PRN 05/25/23 aerosol inhaler shortness of breath or wheezing #0 grams amoxicillin 875 mg-potassium 1 tab PO BID #20 tabs 05/25/23 clavulanate 125 mg tablet doxycycline monohydrate 100 mg 100 mg PO BID 10 days #20 tabs 05/25/23 tablet guaifenesin 600 mg tablet, 600 mg PO BID PRN cough #20 tabs 05/25/23 extended release 12 hr prednisone 20 mg tablet 20 mg PO DAILY 9 days #18 tabs 05/25/23 Allergies Allergy/AdvReac Type Severity Reaction Status Date / Time Penicillins Allergy Intermediate Verified 05/22/23 11:21 [facility] Medical History (Updated 08/27/23 @ 13:53 by Don Ozuna MD) Hospital-acquired bacterial pneumonia ?J15.9 - Unspecified bacterial pneumonia (ICD-10) Bronchiectasis with acute lower respiratory infection ?J47.0 - Bronchiectasis with acute lower respiratory infection (ICD-10) Leukocytosis ?D72.829 - Elevated white blood cell count, unspecified (ICD-10) COVID-19 ?U07.1 - COVID-19 (ICD-10) GERD (gastroesophageal reflux disease) ?K21.9 - Gastro-esophageal reflux disease without esophagitis (ICD-10) 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34 - 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) History of gastrostomy tube placement 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 (ICD-10) Pneumonia ?J18.9 - Pneumonia, unspecified organism (ICD-10) Abdominal pain ?R10.9 - Unspecified abdominal pain (ICD-10) Abdominal pain, acute ?R10.9 - Unspecified abdominal pain (ICD-10) Surgical History History of fundoplication ?Z98.890 - Other specified postprocedural states (ICD-10) History of appendectomy ?Z90.49 - Acquired absence of other specified parts of digestive tract (ICD- 10) H/O chest tube placement ?Z98.890 - Other specified postprocedural states (ICD-10) History of facial surgery ?Z98.890 - Other specified postprocedural states (ICD-10) Family History Mother Family history of diabetes mellitus Family history of hypertension Grandmother Family history of diabetes mellitus Grandfather Family history of myocardial infarction Social History Within the past year, how often did you have a drink containing alcohol: 2-4 times a month Within the past year, how many standard drinks containing alcohol did you have on a typical day: 1 or 2 Within the past year, how often did you have six or more drinks on one occasion: weekly Total score: 3 Score interpretation: A score of 4 or more indicates drinking is likely to affect patient's safety. 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 Known occupational exposures/hazards: No Highest level of school completed/degree received: Associate degree: academic program Are you now , , , , never or living with a partner: In a typical week, how many times do you talk on the telephone with family, friends, or neighbors: 3 or more times per week How often do you get together with friends or relatives: once per week How often do you attend samaritan or mormon services: never Do you belong to any clubs or organizations such as samaritan groups unions, fraternal or athletic groups, or school groups: no Total score: 1 Score interpretation: A score of less than or equal to 1 indicates the most socially isolated. Little interest or pleasure in doing things: not at all Feeling down, depressed, or hopeless: not at all Feel stressed/tense/nervous/anxious/difficulty sleeping: not at all Do you think of yourself as: straight/heterosexual Gender Identity: male Exam Narrative Exam Narrative: Awake alert pleasant oriented x 3. Good historian. Pulse ox very between 88 and 92% on room air. He gets dyspneic very quickly. HEENT shows no obvious upper respiratory infection no rhinitis no pharyngitis or sore throat at this time. No facial swelling. His neck is soft and supple. He does have a good appetite and wants to eat. Some scattered rhonchi. Very minimal wheezing but he did receive nebulizer treatment. Skin is warm and dry mucous membranes are moist and pink. Does not have any abdominal discomfort. His extremities thin male no peripheral edema. Neurological is intact with no lateralizing or focal findings. Constitutional Vital Signs, click to edit/add: Last Vital Signs Temp 101.2 F H 08/27/23 12:27 Pulse 129 H 08/27/23 13:13 Resp 30 H 08/27/23 13:13 BP 127/74 08/27/23 13:13 Pulse Ox 93 L 08/27/23 13:13 O2 Del Method Nasal Cannula 08/27/23 12:49 O2 Flow Rate 2 08/27/23 13:02 Course Vital Signs Vital signs: Vital Signs Temperature 101.2 F H 08/27/23 12:27 Pulse Rate 121 H 08/27/23 12:27 Respiratory Rate 28 H 08/27/23 12:27 Blood Pressure 132/73 08/27/23 12:27 Pulse Oximetry 91 L 08/27/23 12:27 Oxygen Delivery Method Room Air 08/27/23 12:27 Temperature 101.2 F H 08/27/23 12:27 Pulse Rate 129 H 08/27/23 13:13 Respiratory Rate 30 H 08/27/23 13:13 Blood Pressure 127/74 08/27/23 13:13 Pulse Oximetry 93 L 08/27/23 13:13 Oxygen Delivery Method Nasal Cannula 08/27/23 12:49 Oxygen Delivery Flow Rate 2 08/27/23 13:02 MDM - SOB/Dyspnea MDM Narrative Medical decision making narrative: Patient with chronic pulmonary disease interstitial in nature with recent confirmed diagnosis influenza B now with a new infiltrate and worsening clinical condition on his chest x-ray. Lactate levels are pending. Blood cultures have been done. Respiratory panel ordered. He initially indicated he has allergies to penicillin so I gave him his first antibiotic of azithromycin in the ER. However when I speak to Luis he says that he was told he had penicillin allergies as a child but he is actually taking penicillin products as an adult with no problems. This information was all discussed with Dr. Elkins who is on- call and he will admit him for ongoing care. Lab Data Labs: Lab Results 08/27/23 08/27/23 Range/Units 12:42 12:57 WBC 14.4 H (4.0-11.0) 10^3/uL RBC 5.18 (4.70-6.10) 10^6/uL Hgb 15.2 (14.0-18.0) g/dL Hct 45.0 (42.0-54.0) % MCV 86.9 (80.0-94.0) fL MCH 29.3 (25.9-34.0) pg MCHC 33.8 (29.9-35.2) g/dL RDW 12.5 (11.0-15.0) % Plt Count 324 (150-450) 10^3/uL MPV 11.5 (9.5-13.5) fL Neut % (Auto) 83.4 H (43.0-75.0) % Lymph % (Auto) 6.8 L (20.5-60.0) % [place] % (Auto) 8.6 (1.7-12.0) % Eos % (Auto) 0.3 L (0.9-7.0) % Baso % (Auto) 0.6 (0.2-2.0) % Neut # (Auto) 12.0 H (1.4-6.5) 10^3/uL Lymph # (Auto) 1.0 L (1.2-3.8) 10^3/uL [place] # (Auto) 1.2 H (0.3-0.8) 10^3/uL Eos # (Auto) 0.0 (0.0-0.7) 10^3/uL Baso # (Auto) 0.1 (0.0-0.1) 10^3/uL Abs Immat Gran (auto) 0.04 H (0.00-0.03) 10^3/uL Imm/Tot Granulo (auto) 0.3 (0.0-0.5) % VBG pH 7.418 (7.330-7.430) VBG pCO2 41.3 (40.0-52.0) mmHg Sodium 137 (136-145) mmol/L Potassium 3.5 (3.5-5.1) mmol/L Chloride 100 (98-107) mmol/L Carbon Dioxide 27.3 (21.0-32.0) mmol/L Anion Gap 13.2 BUN 5.0 L (7.0-18.0) mg/dL Creatinine 0.77 (0.70-1.30) mg/dL Est GFR ( Amer) >60 (>=60) Est GFR (Non-Af Amer) >60 (>=60) BUN/Creatinine Ratio 6.5 Glucose 117 H (74-106) mg/dL Calcium 9.2 (8.5-10.1) mg/dL Total Bilirubin 0.7 (0.2-1.0) mg/dL AST 13 L (15-37) U/L ALT 15 L (16-63) U/L Alkaline Phosphatase 97 (46-116) U/L Total Protein 7.7 (6.4-8.2) g/dL Albumin 3.7 (3.4-5.0) g/dL Globulin 4.0 g/dL Albumin/Globulin Ratio 0.9 Adenovirus (PCR) Not detected (NOT DETECTE) C. pneumoniae DNA (PCR) Not detected (NOT DETECTE) Coronavirus Type OC43 Not detected (NOT DETECTE) Coronavirus Type HKU1 Not detected (NOT DETECTE) Coronavirus Type 229E Detected A (NOT DETECTE) Coronavirus Type NL63 Not detected (NOT DETECTE) Human Metapneumovir PCR Not detected (NOT DETECTE) M. pneumoniae (PCR) Not detected (NOT DETECTE) Parainfluenza PCR Not detected (NOT DETECTE) Parainfluenza 2 (PCR) Not detected (NOT DETECTE) Parainfluenza 3 (PCR) Not detected (NOT DETECTE) Parainfluenza 4 (PCR) Not detected (NOT DETECTE) RSV (RT-PCR) Not detected (NOT DETECTE) Entero/Rhino (PCR) Not detected (NOT DETECTE) SARS-CoV-2 (PCR) Not detected (NOT DETECTE) Bordetella pertussis (PCR) Not detected (NOT DETECTE) B parapertussis DNA PCR Not detected (NOT DETECTE) Influenza Type A (PCR) Not detected (NOT DETECTE) Influenza Type B (PCR) Not detected (NOT DETECTE) Discharge Plan Discharge Chief Complaint: Shortness of Breath/Dyspnea Clinical Impression: Pneumonia Patient Disposition: Admitted as Observation Time of Disposition Decision: 13:53 Prescriptions / Home Meds: No Action albuterol sulfate 2.5 mg /3 mL (0.083 %) solution for nebulization 2.5 mg inhalation QID dexlansoprazole [Dexilant] 60 mg capsule,biphase delayed releas 60 mg PO DAILY fluticasone propion-salmeterol [Advair Diskus] 250-50 mcg/dose blister with device 1 inh inhalation BID hydroxyzine pamoate 25 mg capsule 25 mg PO TID PRN (Reason: ANXIETY ) doxycycline monohydrate 100 mg tablet 100 mg PO BID 10 Days Qty: 20 0RF guaifenesin 600 mg tablet extended release 12hr 600 mg PO BID PRN (Reason: cough) Qty: 20 0RF amoxicillin-pot clavulanate 875-125 mg tablet 1 tab PO BID Qty: 20 0RF prednisone 20 mg tablet 20 mg PO DAILY 9 Days Qty: 18 0RF Rx Instructions: take 3 pills x 3 days, 2 for 3 days, 1 x 3 days albuterol sulfate 2.5 mg /3 mL (0.083 %) solution for nebulization 2.5 mg inhalation Q6H PRN (Reason: shortness of breath or wheezing) Qty: 75 0RF albuterol sulfate 90 mcg/actuation HFA aerosol inhaler 2 puff INHALATION Q6H PRN (Reason: shortness of breath or wheezing) Qty: 0 0RF Print Language: Argentine Referrals: Physician,Non-Staff, MD [Primary Care Provider] - 1 week
[2023-08-27 12:56] LABS: Adenovirus NOT DETECTED (NOT DETECTE); Bordetella parapertussis NOT DETECTED (NOT DETECTE); Coronavirus HKU1 NOT DETECTED (NOT DETECTE); Coronavirus NL63 NOT DETECTED (NOT DETECTE); Coronavirus OC43 NOT DETECTED (NOT DETECTE); Human Metapneumovirus NOT DETECTED (NOT DETECTE); Human Rhinovirus/Enterovirus NOT DETECTED (NOT DETECTE); Influenza A NOT DETECTED (NOT DETECTE); Influenza B NOT DETECTED (NOT DETECTE); Mycoplasma pneumoniae NOT DETECTED (NOT DETECTE); Parainfluenza Virus 1 NOT DETECTED (NOT DETECTE); Parainfluenza Virus 2 NOT DETECTED (NOT DETECTE); Parainfluenza Virus 3 NOT DETECTED (NOT DETECTE); Parainfluenza Virus 4 NOT DETECTED (NOT DETECTE); Respiratory Syncytial Virus NOT DETECTED (NOT DETECTE); SARS-CoV-2 NOT DETECTED (NOT DETECTE)
[2023-08-27] MEDS: IPRATROPIUM/ALBUTEROL SULFATE 3 ML AMPUL.NEB IH (12:57)
[2023-08-27 13:23] LABS: Basophils Absolute Auto 0.1 10^3/uL (0.0-0.1); Basophils Percent Auto 0.6 % (0.2-2.0); Eosinophils Percent Auto 0.3 % (0.9-7.0); Hemoglobin 15.2 g/dL (14.0-18.0); Immature Granulocytes Abs Auto 0.04 10^3/uL (0.00-0.03); Immature Granulocytes Pct Auto 0.3 % (0.0-0.5); Lymphocytes Percent Auto 6.8 % (20.5-60.0); Mean Corpuscular HGB Conc 33.8 g/dL (29.9-35.2); Mean Corpuscular Hemoglobin 29.3 pg (25.9-34.0); Mean Corpuscular Volume 86.9 fL (80.0-94.0); Mean Platelet Volume 11.5 fL (9.5-13.5); Monocytes Absolute Auto 1.2 10^3/uL (0.3-0.8); Monocytes Percent Auto 8.6 % (1.7-12.0); Neutrophils Percent Auto 83.4 % (43.0-75.0); Platelet Count 324 10^3/uL (150-450); Red Blood Count 5.18 10^6/uL (4.70-6.10); Red Cell Distribution Width 12.5 % (11.0-15.0); White Blood Count 14.4 10^3/uL (4.0-11.0)
[2023-08-27 13:27] LABS: PCO2 VBG 41.3 mmHg (40.0-52.0); pH VBG 7.418 (7.330-7.430)
[2023-08-27 13:37] LABS: Alanine Aminotransferase 15 U/L (16-63); Albumin Globulin Ratio 0.9; Albumin Level 3.7 g/dL (3.4-5.0); Alkaline Phosphatase 97 U/L (46-116); Anion Gap 13.2; Aspartate Amino Transferase 13 U/L (15-37); BUN Creatinine Ratio 6.5; Bilirubin Total 0.7 mg/dL (0.2-1.0); Calcium 9.2 mg/dL (8.5-10.1); Carbon Dioxide 27.3 mmol/L (21.0-32.0); Chloride 100 mmol/L (98-107); Estimated GFR (African America >60 (>=60); Estimated GFR (Non-African Ame >60 (>=60); Glucose 117 mg/dL (74-106); Potassium 3.5 mmol/L (3.5-5.1); Sodium 137 mmol/L (136-145); Total Protein 7.7 g/dL (6.4-8.2)
[2023-08-27] MEDS: AZITHROMYCIN 500 MG in 0.9 % SODIUM CHLORIDE 250 ML 250 MG IV (13:38)
[2023-08-27] MEDS: 0.9 % SODIUM CHLORIDE 1,000 ML 1000 ML IV (13:38)
[2023-08-27 13:44] LABS: Coronavirus 229E DETECTED (NOT DETECTE)
[2023-08-27 13:54] LABS: Lactate/Lactic Acid 1.3 mmol/L (0.4-2.0)
[2023-08-27] MEDS: LEVOFLOXACIN IN DEXTROSE 5 % 500 MG/100 ML PIGGYBACK 100 MG IV (14:30)
[2023-08-27] MEDS: LACTATED RINGER'S SOLUTION 1,000 ML 100 ML IV (15:55)
[2023-08-27] MEDS: METHYLPREDNISOLONE SOD SUCC PF 125 MG/2 ML VIAL IVP ×2 (15:56→21:39)
[2023-08-27] MEDS: ACETAMINOPHEN 500 MG TABLET 1000 MG PO (15:59)
[2023-08-27] MEDS: CEFTRIAXONE 1,000 MG in 0.9 % SODIUM CHLORIDE 50 ML 100 MG IV (15:59)
[2023-08-27] MEDS: LEVALBUTEROL HCL 0.63 MG/3 ML VIAL.NEB 0.630000000000000004 MG IH ×2 (16:27→23:12)
[2023-08-27] MEDS: SODIUM CHLORIDE 0.9% INHALATION 3 ML NEB IH ×2 (16:27→23:12)
[2023-08-27] MEDS: IPRATROPIUM BROMIDE 0.5 MG/2.5 ML VIAL.NEB IH ×2 (16:27→23:12)
--- NOTE | 2023-08-27 19:22 | P.HP_ITS ---
HPI H&P: HPI History of Present Illness Chief complaint: SOB, CHILLS Narrative: Patient with viral illness last week and treated with Tamiflu, last night having increasing shortness of breath tried increasing his aerosol treatment frequency and that did not improve things today presented to the emergency room, in the emergency room found to have significant left lower lobe pneumonia. Patient mated for workup and treatment of same When I saw patient up on the medical surgical floor he did have some mild conversational dyspnea. Persistent cough throughout the evaluation. Opioid HPI Opioid Management Most Recent Opioid Data: Last Pain Scale 0 08/27/23 16:44 Last Pain Assessment 08/27/23 18:22 Last ED Pain Assessment 08/22/23 08:10 Last MAR Pain Assessment 08/27/23 16:44 Last ORT Total Score 5 08/27/23 15:30 Last ORT Risk Category Moderate Risk 08/27/23 15:30 PFSH PFSH Medical History (Updated 08/27/23 @ 13:53 by Don Ozuna MD) Hospital-acquired bacterial pneumonia ?J15.9 - Unspecified bacterial pneumonia (ICD-10) Bronchiectasis with acute lower respiratory infection ?J47.0 - Bronchiectasis with acute lower respiratory infection (ICD-10) Leukocytosis ?D72.829 - Elevated white blood cell count, unspecified (ICD-10) COVID-19 ?U07.1 - COVID-19 (ICD-10) GERD (gastroesophageal reflux disease) ?K21.9 - Gastro-esophageal reflux disease without esophagitis (ICD-10) 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34 - 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) History of gastrostomy tube placement 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 (ICD-10) Pneumonia ?J18.9 - Pneumonia, unspecified organism (ICD-10) Abdominal pain ?R10.9 - Unspecified abdominal pain (ICD-10) Abdominal pain, acute ?R10.9 - Unspecified abdominal pain (ICD-10) Surgical History History of fundoplication ?Z98.890 - Other specified postprocedural states (ICD-10) History of appendectomy ?Z90.49 - Acquired absence of other specified parts of digestive tract (ICD- 10) H/O chest tube placement ?Z98.890 - Other specified postprocedural states (ICD-10) History of facial surgery ?Z98.890 - Other specified postprocedural states (ICD-10) Family History Mother Family history of diabetes mellitus Family history of hypertension Grandmother Family history of diabetes mellitus Grandfather Family history of myocardial infarction Social History Within the past year, how often did you have a drink containing alcohol: 2-4 times a month Within the past year, how many standard drinks containing alcohol did you have on a typical day: 1 or 2 Within the past year, how often did you have six or more drinks on one occasion: weekly Total score: 3 Score interpretation: A score of 4 or more indicates drinking is likely to affect patient's safety. 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 Known occupational exposures/hazards: No Highest level of school completed/degree received: high school graduate Are you now , , , , never or living with a partner: In a typical week, how many times do you talk on the telephone with family, friends, or neighbors: 3 or more times per week How often do you get together with friends or relatives: once per week How often do you attend taoist or alevism services: never Do you belong to any clubs or organizations such as taoist groups unions, fraternal or athletic groups, or school groups: no Total score: 1 Score interpretation: A score of less than or equal to 1 indicates the most socially isolated. Little interest or pleasure in doing things: not at all Feeling down, depressed, or hopeless: not at all Feel stressed/tense/nervous/anxious/difficulty sleeping: not at all Do you think of yourself as: straight/heterosexual Gender Identity: male Meds Home Medications and Allergies Home Medications ?Medication ?Instructions ?Recorded ?Confirmed ?Type albuterol sulfate 2.5 mg/3 mL 2.5 mg inhalation QID 01/12/23 08/27/23 History (0.083 %) solution for nebulization dexlansoprazole 60 mg 60 mg PO DAILY 04/16/23 08/27/23 History capsule,biphase delayed release (Dexilant) albuterol sulfate 2.5 mg/3 mL 2.5 mg (3 mL) inhalation Q6H PRN 05/25/23 08/27/23 Rx (0.083 %) solution for nebulization shortness of breath or wheezing #75 mL albuterol sulfate 90 mcg/actuation 2 puff inhalation Q6H PRN 05/25/23 08/27/23 Rx aerosol inhaler shortness of breath or wheezing #0 grams Allergies Allergy/AdvReac Type Severity Reaction Status Date / Time Penicillins Allergy Intermediate Verified 05/22/23 11:21 Exam Constitutional Vital Signs, click to edit/add: Last Vital Signs Temp 98.8 F 08/27/23 15:36 Pulse 122 H 08/27/23 17:55 Resp 16 08/27/23 15:36 BP 108/62 08/27/23 15:36 Pulse Ox 93 L 08/27/23 16:30 O2 Del Method Nasal Cannula 08/27/23 16:30 O2 Flow Rate 2 08/27/23 16:30 Documenting provider has reviewed patient's vital signs: yes Common normals: apparent distress General appearance: not comfortable Chest Common normals: inspection of chest normal Respiratory Common normals: abnormal respiratory effort Auscultation: rhonchi, wheezes and egophony left lower; no rales Cardio Common normals: regular rate and regular rhythm Results Labs Labs: Short CBC 08/27/23 Range/Units 12:57 WBC 14.4 H (4.0-11.0) 10^3/uL Hgb 15.2 (14.0-18.0) g/dL Hct 45.0 (42.0-54.0) % Plt Count 324 (150-450) 10^3/uL BMP 08/27/23 12:57 Sodium 137 Potassium 3.5 Chloride 100 Carbon Dioxide 27.3 BUN 5.0 L Creatinine 0.77 Glucose 117 H Calcium 9.2 Liver Function 08/27/23 Range/Units 12:57 Total Bilirubin 0.7 (0.2-1.0) mg/dL AST 13 L (15-37) U/L ALT 15 L (16-63) U/L Alkaline Phosphatase 97 (46-116) U/L Albumin 3.7 (3.4-5.0) g/dL ABG ABG results: 08/27/23 12:57 VBG pH 7.418 VBG pCO2 41.3 Assessment and Plan Assessment and Plan (1) Hypoxia: (2) Bronchitis: (3) Acute asthma exacerbation: (4) Leukocytosis: Qualifiers: Leukocytosis type: unspecified Qualified Code(s): D72.829 - Elevated white blood cell count, unspecified Plan Fever, sinus tachycardia, respiratory distress, acute hypoxia, lactic acidosis, leukocytosis secondary to acute exacerbation of asthma from acute left lower lobe pneumonia-his bronchiectasis in this area is a difficult to determine with but with other symptoms as outlined previously this is the most likely scenario for his shortness of breath. IV antibiotics, aerosol treatments, steroids, monitor daily Generalized anxiety disorder-continue home medications Irritable bowel syndrome-continue with home medications Admission criteria: Patient with failed outpatient treatment likely progression of his bronchiectasis secondary to left lower lobe pneumonia, patient likely with a 3 to 4-day hospital stay based on need for high-dose steroids then tapering.
[2023-08-27] MEDS: L. ACIDOPHILUS/L.BULGARICUS 1 PACKET GRAN.PACK PO (21:40)
[2023-08-27] MEDS: ENSURE HP 237 ML LIQUID PO (21:40)
[2023-08-27] MEDS: LORAZEPAM 0.5 MG TABLET PO (22:22)
[2023-08-28] VITALS (25 sets, daily range): BP systolic 101–128; BP diastolic 61–72; PULSE 18–124; TEMP 36.3–36.8; O2SAT 90–98; BMI 21.1
[2023-08-28] MEDS: LACTATED RINGER'S SOLUTION 1,000 ML 100 ML IV (02:38)
[2023-08-28] MEDS: METHYLPREDNISOLONE SOD SUCC PF 125 MG/2 ML VIAL IVP ×4 (04:57→22:01)
[2023-08-28 05:00] LABS: Hematocrit 45.5 % (42.0-54.0); Hemoglobin 14.6 g/dL (14.0-18.0); Mean Corpuscular HGB Conc 32.1 g/dL (29.9-35.2); Mean Corpuscular Hemoglobin 28.8 pg (25.9-34.0); Mean Corpuscular Volume 89.7 fL (80.0-94.0); Mean Platelet Volume 11.9 fL (9.5-13.5); Platelet Count 373 10^3/uL (150-450); Red Blood Count 5.07 10^6/uL (4.70-6.10); Red Cell Distribution Width 12.7 % (11.0-15.0); White Blood Count 11.2 10^3/uL (4.0-11.0)
[2023-08-28] MEDS: SODIUM CHLORIDE 0.9% INHALATION 3 ML NEB IH ×4 (05:00→22:39)
[2023-08-28] MEDS: IPRATROPIUM BROMIDE 0.5 MG/2.5 ML VIAL.NEB IH ×4 (05:00→22:38)
[2023-08-28] MEDS: LEVALBUTEROL HCL 0.63 MG/3 ML VIAL.NEB 0.630000000000000004 MG IH ×4 (05:00→22:38)
[2023-08-28 05:16] LABS: Alanine Aminotransferase 13 U/L (16-63); Albumin Globulin Ratio 0.8; Albumin Level 3.2 g/dL (3.4-5.0); Alkaline Phosphatase 99 U/L (46-116); Aspartate Amino Transferase 8 U/L (15-37); BUN Creatinine Ratio 12.6; Bilirubin Total 0.4 mg/dL (0.2-1.0); Chloride 105 mmol/L (98-107); Estimated GFR (African America >60 (>=60); Estimated GFR (Non-African Ame >60 (>=60); Glucose 188 mg/dL (74-106); Sodium 141 mmol/L (136-145); Total Protein 7.2 g/dL (6.4-8.2)
[2023-08-28 05:36] LABS: Band Neutrophils Absolute 0.1 10^3/uL (0.0-0.3); Segmented Neut Absolute Manual 9.85 10^3/uL (1.4-6.5)
[2023-08-28 05:37] LABS: Atypical Lymphocytes Abs Man 0.56; Lymphocytes Absolute Manual 0.44 10^3/uL (1.20-3.80); Monocytes Absolute Manual 0.22 10^3/uL (0.30-0.80)
[2023-08-28] MEDS: OMEPRAZOLE 40 MG CAPSULE.DR PO (06:05)
[2023-08-28] MEDS: L. ACIDOPHILUS/L.BULGARICUS 1 PACKET GRAN.PACK PO ×2 (09:19→22:01)
--- NOTE | 2023-08-28 10:23 | P.PN_ITS ---
Progress Note: Subjective Subjective Interval history: Patient states breathing is somewhat better than previous day but not significantly. Just tarted medical treatment last night though. Exam Constitutional Vital Signs, click to edit/add: Last Vital Signs Temp 97.3 F L 08/28/23 08:50 Pulse 18 L 08/28/23 10:17 Resp 18 08/28/23 10:17 BP 128/70 08/28/23 08:50 Pulse Ox 92 L 08/28/23 10:17 O2 Del Method Room Air 08/28/23 10:17 O2 Flow Rate 2 08/28/23 08:50 Documenting provider has reviewed patient's vital signs: yes Common normals: apparent distress General appearance: not comfortable Chest Common normals: inspection of chest normal Respiratory Common normals: abnormal respiratory effort Auscultation: rhonchi, wheezes and egophony left lower; no rales Cardio Common normals: regular rate and regular rhythm Progress Note: Objective Labs Labs: Short CBC 08/27/23 08/28/23 Range/Units 12:57 04:01 WBC 14.4 H 11.2 H (4.0-11.0) 10^3/uL Hgb 15.2 14.6 (14.0-18.0) g/dL Hct 45.0 45.5 (42.0-54.0) % Plt Count 324 373 (150-450) 10^3/uL BMP 08/27/23 08/28/23 12:57 04:01 Sodium 137 141 Potassium 3.5 4.0 Chloride 100 105 Carbon Dioxide 27.3 27.0 BUN 5.0 L 12.0 Creatinine 0.77 0.95 Glucose 117 H 188 H Calcium 9.2 9.0 Liver Function 08/27/23 08/28/23 Range/Units 12:57 04:01 Total Bilirubin 0.7 0.4 (0.2-1.0) mg/dL AST 13 L 8 L (15-37) U/L ALT 15 L 13 L (16-63) U/L Alkaline Phosphatase 97 99 (46-116) U/L Albumin 3.7 3.2 L (3.4-5.0) g/dL Progress Note: A&P Assessment and Plan (1) Hypoxia: (2) Bronchitis: (3) Acute asthma exacerbation: (4) Leukocytosis: Qualifiers: Leukocytosis type: unspecified Qualified Code(s): D72.829 - Elevated white blood cell count, unspecified Plan Fever, sinus tachycardia, respiratory distress, acute hypoxia, lactic acidosis, leukocytosis secondary to acute exacerbation of asthma from acute left lower lobe pneumonia-his bronchiectasis in this area is a difficult to determine with but with other symptoms as outlined previously this is the most likely scenario for his shortness of breath. Complicated by coronavirus not COVD - IV antibiotics, aerosol treatments, steroids, monitor daily-consulted pulmonology, hypoxia and heart rate are overall improved Generalized anxiety disorder-continue home medications Irritable bowel syndrome-continue with home medications Bmiirzfnrfybj-jpfaixv-[id number]-add sliding scale, Admission criteria: Patient with failed outpatient treatment likely progression of his bronchiectasis secondary to left lower lobe pneumonia, patient likely with a 3 to 4-day hospital stay based on need for high-dose steroids then tapering. ?
--- NOTE | 2023-08-28 10:40 | CM.NOTE ---
Rounds made with Dr. Elkins, discussed diagnosis with pt and treatment. Pt continues on oxygen at this time. Pt does have home oxygen that he wears only during the night.
[2023-08-28 11:22] LABS: Glucometer 174 mg/dL (74-106)
[2023-08-28] MEDS: INSULIN ASPART 300 UNIT/3 ML PEN SUBQ ×3 (11:28→22:09)
--- NOTE | 2023-08-28 11:35 | PC.NURSE ---
dr christianson rounded at this time
--- NOTE | 2023-08-28 12:04 | CM.NOTE ---
Important Message From Medicare discussed with pt, pt verbalizes understanding and signs paper. Original given to pt and copy placed in pt's chart.
[2023-08-28] MEDS: 0.9 % SODIUM CHLORIDE 250 ML 10 ML IV (13:59)
[2023-08-28] MEDS: LEVOFLOXACIN IN DEXTROSE 5 % 750 MG/150 ML IV.SOLN 100 MG IV (13:59)
[2023-08-28] MEDS: CEFTRIAXONE 1,000 MG in 0.9 % SODIUM CHLORIDE 50 ML 100 MG IV (15:46)
[2023-08-28 16:10] LABS: Glucometer 251 mg/dL (74-106)
--- NOTE | 2023-08-28 17:24 | PM.PLCN ---
History of Present Illness History of Present Illness Consult date: 08/28/23 Chief complaint: SOB, CHILLS Narrative: Patient known to me, now following with him @ [facility] Pul[facility] in [place]; was terminated from [facility] for violating no show policy. Patient was symptomatic on 08/22/2023 - went to [facility] ER and was positive for Coronavirus 229E and influenza B - was around young children who were symptomatic. He was Rx'd Tamiflu and was doing better until the weekend which he was doing worse. He came back to [facility] ER and remained positive for Coronavirus 229E but influenza B was now negative. SpO2 was 88% on RA there and imaging noted a new infiltrate. He was admitted. He is feeling better, but still has cough and dyspnea. Beginning to get up and move around, but has not had SpO2 checked during activity. Does not feel well enough to go home today, but would like discharged by tomorrow, which is his birthday. Review of Systems ROS Status of ROS 10 or more systems reviewed and unremarkable except as noted in history and below Constitutional Reports: fatigue; Denies: fever, chills or night sweats [facility] Medical History (Updated 08/28/23 @ 17:30 by Haja Mac DO) Hospital-acquired bacterial pneumonia ?J15.9 - Unspecified bacterial pneumonia (ICD-10) Bronchiectasis with acute lower respiratory infection ?J47.0 - Bronchiectasis with acute lower respiratory infection (ICD-10) Leukocytosis ?D72.829 - Elevated white blood cell count, unspecified (ICD-10) COVID-19 ?U07.1 - COVID-19 (ICD-10) GERD (gastroesophageal reflux disease) ?K21.9 - Gastro-esophageal reflux disease without esophagitis (ICD-10) 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34 - 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) History of gastrostomy tube placement 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 (ICD-10) Pneumonia ?J18.9 - Pneumonia, unspecified organism (ICD-10) Abdominal pain ?R10.9 - Unspecified abdominal pain (ICD-10) Abdominal pain, acute ?R10.9 - Unspecified abdominal pain (ICD-10) Surgical History History of fundoplication ?Z98.890 - Other specified postprocedural states (ICD-10) History of appendectomy ?Z90.49 - Acquired absence of other specified parts of digestive tract (ICD-10) H/O chest tube placement ?Z98.890 - Other specified postprocedural states (ICD-10) History of facial surgery ?Z98.890 - Other specified postprocedural states (ICD-10) Family History Mother Family history of diabetes mellitus Family history of hypertension Grandmother Family history of diabetes mellitus Grandfather Family history of myocardial infarction Social History Within the past year, how often did you have a drink containing alcohol: 2-4 times a month Within the past year, how many standard drinks containing alcohol did you have on a typical day: 1 or 2 Within the past year, how often did you have six or more drinks on one occasion: weekly Total score: 3 Score interpretation: A score of 4 or more indicates drinking is likely to affect patient's safety. 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 Known occupational exposures/hazards: No Highest level of school completed/degree received: high school graduate Are you now , , , , never or living with a partner: In a typical week, how many times do you talk on the telephone with family, friends, or neighbors: 3 or more times per week How often do you get together with friends or relatives: once per week How often do you attend yazdanism or alevism services: never Do you belong to any clubs or organizations such as yazdanism groups unions, fraternal or athletic groups, or school groups: no Total score: 1 Score interpretation: A score of less than or equal to 1 indicates the most socially isolated. Little interest or pleasure in doing things: not at all Feeling down, depressed, or hopeless: not at all Feel stressed/tense/nervous/anxious/difficulty sleeping: not at all Do you think of yourself as: straight/heterosexual Gender Identity: male Meds Home Medications and Allergies Home Medications ?Medication ?Instructions ?Recorded ?Confirmed ?Type albuterol sulfate 2.5 mg/3 mL 2.5 mg inhalation QID 01/12/23 08/27/23 History (0.083 %) solution for nebulization dexlansoprazole 60 mg 60 mg PO DAILY 04/16/23 08/27/23 History capsule,biphase delayed release (Dexilant) albuterol sulfate 2.5 mg/3 mL 2.5 mg (3 mL) inhalation Q6H PRN 05/25/23 08/27/23 Rx (0.083 %) solution for nebulization shortness of breath or wheezing #75 mL albuterol sulfate 90 mcg/actuation 2 puff inhalation Q6H PRN 05/25/23 08/27/23 Rx aerosol inhaler shortness of breath or wheezing #0 grams Allergies Allergy/AdvReac Type Severity Reaction Status Date / Time Penicillins Allergy Intermediate Verified 05/22/23 11:21 Exam Constitutional Vital Signs, click to edit/add: Last Vital Signs Temp 98.3 F 08/28/23 15:52 Pulse 118 H 08/28/23 16:32 Resp 16 08/28/23 15:52 BP 105/62 08/28/23 15:52 Pulse Ox 91 L 08/28/23 16:32 O2 Del Method Room Air 08/28/23 16:32 O2 Flow Rate 2 08/28/23 08:50 Common normals: no apparent distress HENMT Other: No candidiasis Chest Common normals: inspection of chest normal Respiratory Other: Diminished breath sounds, mild rhonchi, faint expiratory wheeze. Cardio Other: Tachycardic, regular rhythm GI Common normals: Normal to inspection, nondistended, normoactive bowel sounds present Neuro Sensorium/orientation: awake and alert Psych Common normals: mental status grossly normal Results Laboratory Findings Abnormal lab findings: Abnormal Labs 08/27/23 08/27/23 08/28/23 12:42 12:57 04:01 WBC 14.4 H 11.2 H Neut % (Auto) 83.4 H Lymph % (Auto) 6.8 L Eos % (Auto) 0.3 L Neut # (Auto) 12.0 H Lymph # (Auto) 1.0 L [place] # (Auto) 1.2 H Abs Immat Gran (auto) 0.04 H Lymphocytes % (Manual) 4.0 L Eosinophils % (Manual) 0.0 L Basophils % (Manual) 0.0 L Neutrophils # (Manual) 9.85 H Lymphocytes # (Manual) 0.44 L Monocytes # (Manual) 0.22 L BUN 5.0 L Glucose 117 H 188 H AST 13 L 8 L ALT 15 L 13 L Albumin 3.2 L Coronavirus Type 229E Detected A POC Glucose 08/28/23 08/28/23 11:21 16:09 WBC Neut % (Auto) Lymph % (Auto) Eos % (Auto) Neut # (Auto) Lymph # (Auto) [place] # (Auto) Abs Immat Gran (auto) Lymphocytes % (Manual) Eosinophils % (Manual) Basophils % (Manual) Neutrophils # (Manual) Lymphocytes # (Manual) Monocytes # (Manual) BUN Glucose AST ALT Albumin Coronavirus Type 229E POC Glucose 174 H 251 H Assessment and Plan Assessment and Plan (1) Pneumonia: Assessment and Plan: New infiltrate on imaging 08/27/2023 - previously influenza B positive and currently coronavirus 229E positive - most consistent with secondary bacterial pneumonia process. Continue with antibiotics. (2) Coronavirus infection: Assessment and Plan: Coronavirus 229E (not COVID-19). Supportive care. (3) Acute hypoxic respiratory failure: Assessment and Plan: SpO2 88% RA on admission. Check ambulatory O2 prior to discharge. He has O2 @ home. (4) Marijuana abuse: Assessment and Plan: Patient still smoking at home. Counseled to stop.
[2023-08-28] MEDS: ENSURE HP 237 ML LIQUID PO (22:01)
[2023-08-28 22:09] LABS: Glucometer 273 mg/dL (74-106)
[2023-08-29] VITALS (13 sets, daily range): BP systolic 116–124; BP diastolic 61–81; PULSE 50–118; TEMP 36.4–36.6; O2SAT 94–98
[2023-08-29] MEDS: METHYLPREDNISOLONE SOD SUCC PF 125 MG/2 ML VIAL IVP (03:45)
[2023-08-29] MEDS: LEVALBUTEROL HCL 0.63 MG/3 ML VIAL.NEB 0.630000000000000004 MG IH ×2 (05:00→11:01)
[2023-08-29] MEDS: SODIUM CHLORIDE 0.9% INHALATION 3 ML NEB IH ×2 (05:00→11:02)
[2023-08-29] MEDS: IPRATROPIUM BROMIDE 0.5 MG/2.5 ML VIAL.NEB IH ×2 (05:00→11:01)
[2023-08-29 05:30] LABS: Basophils Percent Auto 0.2 % (0.2-2.0); Eosinophils Percent Auto 0.2 % (0.9-7.0); Hematocrit 42.6 % (42.0-54.0); Hemoglobin 13.6 g/dL (14.0-18.0); Immature Granulocytes Pct Auto 0.9 % (0.0-0.5); Lymphocytes Absolute Auto 1.5 10^3/uL (1.2-3.8); Lymphocytes Percent Auto 6.8 % (20.5-60.0); Mean Corpuscular HGB Conc 31.9 g/dL (29.9-35.2); Mean Corpuscular Hemoglobin 28.6 pg (25.9-34.0); Mean Corpuscular Volume 89.5 fL (80.0-94.0); Monocytes Absolute Auto 1.7 10^3/uL (0.3-0.8); Monocytes Percent Auto 7.3 % (1.7-12.0); Neutrophils Absolute Auto 19.1 10^3/uL (1.4-6.5); Neutrophils Percent Auto 84.6 % (43.0-75.0); Platelet Count 423 10^3/uL (150-450); Red Blood Count 4.76 10^6/uL (4.70-6.10); Red Cell Distribution Width 12.7 % (11.0-15.0); White Blood Count 22.6 10^3/uL (4.0-11.0)
[2023-08-29 05:59] LABS: Alanine Aminotransferase 19 U/L (16-63); Albumin Globulin Ratio 0.8; Albumin Level 2.9 g/dL (3.4-5.0); Alkaline Phosphatase 113 U/L (46-116); Anion Gap 11.4; Aspartate Amino Transferase 13 U/L (15-37); BUN Creatinine Ratio 17.7; Bilirubin Total 0.2 mg/dL (0.2-1.0); Calcium 8.7 mg/dL (8.5-10.1); Carbon Dioxide 28.1 mmol/L (21.0-32.0); Chloride 106 mmol/L (98-107); Estimated GFR (African America >60 (>=60); Estimated GFR (Non-African Ame >60 (>=60); Globulin 3.8 g/dL; Glucose 280 mg/dL (74-106); Potassium 4.5 mmol/L (3.5-5.1); Sodium 141 mmol/L (136-145); Total Protein 6.7 g/dL (6.4-8.2)
[2023-08-29] MEDS: OMEPRAZOLE 40 MG CAPSULE.DR PO (06:09)
--- NOTE | 2023-08-29 06:24 | PC.NURSE ---
rhythm changed from earlier in the shift. he has bradyed down to HR of 25 to 50 BPM. his earlier reads have been in the one teens. faxed copy to [facility] floor and notified his nurse Abelino HART to check on pt. having pauses at times in rhythm as well causing lower HR. Nurse Nicole went into pt room to ever pt.
--- NOTE | 2023-08-29 08:57 | P.PLPN_ITS ---
Progress Note: A&P Assessment and Plan (1) Pneumonia: Assessment and Plan: Clinically improving. Can continue with current antibiotics. He said he has PEP devices at home - he was instructed to use them. (2) Coronavirus infection: Assessment and Plan: Supportive care. (3) Acute hypoxic respiratory failure: Assessment and Plan: Has O2 @ home to use. (4) Marijuana abuse: Assessment and Plan: Counseled on smoking cessation. Plan Okay for discharge from pulmonary standpoint. He can F/U with [facility] in [place]. Subjective Subjective Interval history: Today is his birthday - I sang him Happy Birthday. He said he feels better and wants to go home. He already has home O2 which can be used. Only complaints are that he has some difficulty expectorating and he has dry mouth. No other new issues reported. Exam Constitutional Vital Signs, click to edit/add: Last Vital Signs Temp 97.6 F 08/29/23 03:40 Pulse 98 H 08/29/23 08:00 Resp 16 08/29/23 06:25 BP 116/81 08/29/23 06:25 Pulse Ox 94 L 08/29/23 06:25 O2 Del Method Nasal Cannula 08/29/23 06:25 O2 Flow Rate 2 08/29/23 05:18 Documenting provider has reviewed patient's vital signs: yes Common normals: no apparent distress HENMT Other: No oral candidiasis. Tongue stud in place. Respiratory Other: Some coarse breath sounds in the bases, L > R, less than yesterday. No significant wheezes. Cardio Other: RRR GI Inspection: normal to inspection (well-healed scars) Extremity Common normals: no clubbing, cyanosis or edema Neuro Sensorium/orientation: awake and alert Psych Attitude: calm and engaged
[2023-08-29] MEDS: ENSURE HP 237 ML LIQUID PO (09:01)
[2023-08-29] MEDS: PREDNISONE 20 MG TABLET 40 MG PO (09:02)
[2023-08-29] MEDS: L. ACIDOPHILUS/L.BULGARICUS 1 PACKET GRAN.PACK PO (09:02)
[2023-08-29] MEDS: INSULIN ASPART 300 UNIT/3 ML PEN SUBQ (09:02)
--- NOTE | 2023-08-29 09:10 | P.DS_ITS ---
DS: Providers Provider Date of admission: 08/27/23 14:45 Primary care physician: Non-Staff Physician, Consults: 08/27/23 14:22 Consult to Pharmacy Routine Consulting Provider: Reason for consultation: Please [place] me when Med Rec is Updated Has provider been notified: No Consult to Pulmonology Routine Consulting Provider: Haja Mac Reason for consultation: Pt know t o him DS: Diagnosis Discharge Diagnosis (1) Pneumonia: (2) Coronavirus infection: (3) Acute hypoxic respiratory failure: (4) Marijuana abuse: Plan Fever, sinus tachycardia, respiratory distress, acute hypoxia, lactic acidosis, leukocytosis secondary to acute exacerbation of asthma from acute left lower lo be pneumonia-his bronchiectasis in this area is a difficult to determine with but with other symptoms as outlined previously this is the most likely scenario for his shortness of breath. Complicated by coronavirus not COVD - IV antibiotics, aerosol treatments, steroids, monitor daily-consulted pulmonology, hypoxia and heart rate are overall improved Generalized anxiety disorder-continue home medications Irritable bowel syndrome-continue with home medications Dwptnssijudbw-oaopyww-rshodql-add sliding scale, Admission criteria: Patient with failed outpatient treatment likely progression of his bronchiectasis secondary to left lower lobe pneumonia, patient likely with a 3 to 4-day hospital stay based on need for high-dose steroids then tapering. ? DS: Summary Hospital Course Hospital Course: he was treated as an outpatient for his viral syndrome, then developed increasing cough and shortness of breath, in ER was found to have left lower lobe pneumonia. His bronchiectasis is typically more right-sided. With suspect he has underlying bronchiectasis on the left side as well. Progressed now with increased hypoxia. Unable to maintain sats greater than 90% without supplemental oxygen during the day. He only wears his oxygen at nighttime at home. Patient was placed on IV antibiotics, steroids, frequent aerosol treatments. He did improve over the first 36 hours. With the pneumonia 1 additional day but he is overall improved today. Did require supplemental oxygen last night but that is not unusual for him. If can be weaned off of his supplemental oxygen this morning is showing signs of improvement, he can be discharged home in improving condition. Medications see list. Follow-up with his PCP nurse practitioner in the next week. Already has an appointment. Patient also has significant sleep bradycardia. Patient to be set up for Holter monitor at discharge. Time Spent with Patient Time attestation: Total time spent providing and/or coordinating discharge services: Time spent: greater than 30 minutes Exam Constitutional Vital Signs, click to edit/add: Last Vital Signs Temp 97.8 F 08/29/23 09:09 Pulse 110 H 08/29/23 09:09 Resp 18 08/29/23 09:09 BP 116/70 08/29/23 09:09 Pulse Ox 98 08/29/23 09:09 O2 Del Method Nasal Cannula 08/29/23 09:09 O2 Flow Rate 3 08/29/23 09:09 Documenting provider has reviewed patient's vital signs: yes Common normals: no apparent distress HENMT Other: No oral candidiasis. Tongue stud in place. Respiratory Other: Some coarse breath sounds in the bases, L > R, less than yesterday. No significant wheezes. Cardio Other: RRR GI Inspection: normal to inspection (well-healed scars) Extremity Common normals: no clubbing, cyanosis or edema Neuro Sensorium/orientation: awake and alert Psych Attitude: calm and engaged DS: Data Data Completed and Pending Labs on day of discharge: Labs from last 24 hours 08/29/23 08/28/23 08/28/23 04:43 22:07 16:09 WBC 22.6 H RBC 4.76 Hgb 13.6 L Hct 42.6 MCV 89.5 MCH 28.6 MCHC 31.9 RDW 12.7 Plt Count 423 MPV 12.0 Neut % (Auto) 84.6 H Lymph % (Auto) 6.8 L [place] % (Auto) 7.3 Eos % (Auto) 0.2 L Baso % (Auto) 0.2 Neut # (Auto) 19.1 H Lymph # (Auto) 1.5 [place] # (Auto) 1.7 H Eos # (Auto) 0.0 Baso # (Auto) 0.0 Abs Immat Gran (auto) 0.20 H Imm/Tot Granulo (auto) 0.9 H Sodium 141 Potassium 4.5 Chloride 106 Carbon Dioxide 28.1 Anion Gap 11.4 BUN 14.0 Creatinine 0.79 Est GFR ( Amer) >60 Est GFR (Non-Af Amer) >60 BUN/Creatinine Ratio 17.7 Glucose 280 H Calcium 8.7 Total Bilirubin 0.2 AST 13 L ALT 19 Alkaline Phosphatase 113 Total Protein 6.7 Albumin 2.9 L Globulin 3.8 Albumin/Globulin Ratio 0.8 POC Glucose 273 H 251 H 08/28/23 11:21 WBC RBC Hgb Hct MCV MCH MCHC RDW Plt Count MPV Neut % (Auto) Lymph % (Auto) [place] % (Auto) Eos % (Auto) Baso % (Auto) Neut # (Auto) Lymph # (Auto) [place] # (Auto) Eos # (Auto) Baso # (Auto) Abs Immat Gran (auto) Imm/Tot Granulo (auto) Sodium Potassium Chloride Carbon Dioxide Anion Gap BUN Creatinine Est GFR ( Amer) Est GFR (Non-Af Amer) BUN/Creatinine Ratio Glucose Calcium Total Bilirubin AST ALT Alkaline Phosphatase Total Protein Albumin Globulin Albumin/Globulin Ratio POC Glucose 174 H Discharge Plan Discharge Disposition: Home, Self-Care Discharge Medications: New prednisone 10 mg tablet 50 mg PO DAILY Qty: 47 0RF Rx Instructions: 5/day for 3 days. 4/day for 3 days, 3/day for 3 days, 2/day for 3 days, 1/day for 3 days, 1/2 /day for 4 days levofloxacin 750 mg tablet 750 mg PO DAILY 10 Days Qty: 10 0RF Continued albuterol sulfate 2.5 mg /3 mL (0.083 %) solution for nebulization 2.5 mg inhalation QID dexlansoprazole [Dexilant] 60 mg capsule,biphase delayed releas 60 mg PO DAILY albuterol sulfate 2.5 mg /3 mL (0.083 %) solution for nebulization 2.5 mg inhalation Q6H PRN (Reason: shortness of breath or wheezing) Qty: 75 0RF albuterol sulfate 90 mcg/actuation HFA aerosol inhaler 2 puff INHALATION Q6H PRN (Reason: shortness of breath or wheezing) Qty: 0 0RF Print Language: Beninese Patient Instructions: Prednisone (By mouth), Levofloxacin (By mouth), Influenza (DC), Pneumonia (DC) Forms: Portal Instructions Follow Up Appointments: September 06 @ 11am with Neetu Del Toro NP [phone] Discharge Date/Time: 08/29/23 12:08
--- NOTE | 2023-08-29 09:11 | CA_ITS ---
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 Department: : 1990 Requested By: MARYANNE MCCAIN Order Number: [id number] Reading MD: CAROL ANN WOODALL Interpretive Statements Predominant rhythm is sinus with average rate of 95 bpm Tachycardia - max rate of 163 bpm (sinus tachycardia) - longest episode of 11h 58min 19sec with rates between 124-163 bpm Bradycardia - min rate of 26 bpm - longest episode of 10min 37sec with rates between 39-51 bpm Pauses - 7 episodes with longest of 3.9sec Ventricular ectopy - 260 total, <1% - 260 PVC Patient triggered events: 1 - not associated with symptoms - associated with sinus tachcardia Impression: Predominant rhythm is sinus with average rate of 95 bpm Fastest rate of 163 bpm (sinus tachycardia) and slowest rate of 26 bpm 260 PVC No atrial fibrillation 7 pauses w/ longest duration of 3.9sec Electronically Signed On 09-13-2023 7:02:49 EDT by CAROL ANN WOODALL
--- NOTE | 2023-08-29 09:28 | CM.NOTE ---
Rounds made with Dr. Elkins, discharge to home today. Pt has home oxygen for night use, pt on RA during day. No other discharge needs identified.
[2023-08-29 11:06] LABS: Glucometer 113 mg/dL (74-106)
--- NOTE | 2023-09-04 14:52 | CM.DCFOLLOWU ---
1st attempt discharge follow up call made on 09/04/23, no answer
--- NOTE | 2023-09-05 15:28 | CM.DCFOLLOWU ---
Person spoke with: patient How are you feeling? well, back to work How is your pain? no pain Did you understand your discharge instructions? yes Do you have any questions about your discharge instructions? no Were you given any prescriptions at discharge? yes Were you able to get your prescriptions filled? yes Do you understand how to take your medications as ordered? yes Do you have any questions about your follow up appointment and do you plan to keep your follow up appointment? no questions, keeping follow up on 09/07/23 Is there anything else that you would like to discuss? no Questions/Comments/Concerns/Other: N/A
== END 2023-08-29 12:08 | disposition home or self-care (01) | DRG 190 ==
LOC: ER 13:53 → MS 15:47
PROVIDERS: Admitting Provider Family Medicine; Emergency Provider Emergency Medicine Emergency Medical Services; Visit Provider Family Medicine
DX: J47.0 Bronchiectasis with acute lower respiratory infection (principal); J96.01 Acute respiratory failure with hypoxia; E87.20 Acidosis, unspecified; J45.901 Unspecified asthma with (acute) exacerbation; J15.9 Unspecified bacterial pneumonia; B34.2 Coronavirus infection, unspecified; R50.9 Fever, unspecified; R00.0 Tachycardia, unspecified; F41.1 Generalized anxiety disorder; R73.9 Hyperglycemia, unspecified; T38.0X5A Adverse effect of glucocorticoids and synthetic analogues, initial encounter; F12.10 Cannabis abuse, uncomplicated; R00.1 Bradycardia, unspecified; K58.9 Irritable bowel syndrome, unspecified; K21.9 Gastro-esophageal reflux disease without esophagitis; D72.829 Elevated white blood cell count, unspecified; F17.220 Nicotine dependence, chewing tobacco, uncomplicated; Z90.49 Acquired absence of other specified parts of digestive tract; Z98.890 Other specified postprocedural states; G47.37 Central sleep apnea in conditions classified elsewhere; Z99.81 Dependence on supplemental oxygen; Z20.822 Contact with and (suspected) exposure to COVID-19; Z79.899 Other long term (current) drug therapy; Z86.16 Personal history of COVID-19; Z87.01 Personal history of pneumonia (recurrent)
CPT/HCPCS: 0202U; 36415; 71045; 80053; 82800; 82948; 83605; 85007; 85025; 85027; 87040; 87070; 93005; 93246; 94640; 94667; 94668; 94761; 96365; 96366; 96367; 96368; 96375; 96376; 99285; J0456; J2919

== ENCOUNTER 2023-09-13 02:51 | Observation (INO) | payer MEDICARE, MEDICAID, SELFPAY ==
[2023-09-13] VITALS (20 sets, daily range): BP systolic 111–136; BP diastolic 69–82; PULSE 68–111; TEMP 36.4–37.1; O2SAT 88–96; BMI 21.1; BMI 21.8
--- NOTE | 2023-09-13 03:11 | CT_ITS ---
The [address] [address] Patient Name: FRANCIS GALVEZ MRN: [id number] date: 1990 Sex: M Assigned Patient Location: ER Current Patient Location: ER Accession/Order Number: [id number] Exam Date: 09/13/2023 03:25 Report Date: 09/13/2023 04:21 At the request of: VIKTORIYA GOLDSMITH Procedure: CT abdomen pelvis wo con EXAM: CT abdomen pelvis wo con HISTORY: left flank pain COMPARISON: CT abdomen pelvis, 01/12/2023. TECHNIQUE: Nonenhanced CT imaging the abdomen and pelvis was performed with sagittal and coronal reconstructions. Dose reduction techniques were achieved by using automated exposure control and/or adjustment of mA and/or kV according to patient size and/or use of iterative reconstruction technique. FINDINGS: CT ABDOMEN: There is bibasilar bronchiectasis with surrounding parenchymal scarring at the medial left lung base. Prominent basilar emphysematous changes are noted. There is a nonspecific 1.6 x 1.2 cm lobular nodular lesion in the inferior left lower lobe abutting the diaphragm on image 11 of series 3, unchanged. The imaged lower heart is unremarkable. There is nonspecific distal esophageal wall thickening. The gallbladder is contracted but otherwise unremarkable. There is no biliary ductal dilatation. The exam is limited by the lack of IV contrast. Solid organ lesions or acute abnormalities could be missed. The liver is mildly enlarged at 19 cm in length, but otherwise unremarkable. There is prominent fluid and fat stranding subjacent to the left diaphragm in the posterior left upper quadrant, which is contiguous with the tail of the pancreas and posterior spleen on images 12 through 23 of series 3, etiology indeterminate. There is an underlying nonspecific medium density lesion measuring 5.2 x 2.6 cm on image 18 of series 3 which could reflect pancreatic tail, accessory splenule, or possible hematoma. The pancreas, adrenal glands, kidneys, aorta and IVC appear grossly unremarkable. The stomach is distended with food. The small bowel is unremarkable. CT PELVIS: The pelvic small bowel loops, urinary bladder, prostate and colon appear unremarkable. The appendix is not seen. No pelvic free fluid, loculated fluid or free air is seen. No acute osseous abnormality or suspicious bony lesion is seen. CT/CT abdomen pelvis wo con IMPRESSION: 1. Nonspecific prominent fluid and fat stranding in the posterior left upper pelvis contiguous with the tail of the pancreas and posterior spleen, incompletely evaluated on this nonenhanced exam. Underlying 5.2 x 2.6 cm soft tissue nodule could reflect hematoma and/or pancreatic tail versus underlying an accessory splenule. No overlying rib fracture or chest wall contusion is seen. If there is concern for hematoma and surrounding hemorrhagic fat stranding, and IV contrast enhanced exam is recommended to further evaluate. Focal pancreatitis is an alternative possibility. No additional acute findings are seen in the abdomen or pelvis. The spleen appears grossly unremarkable. 2. Nonspecific distal esophageal wall thickening suspicious for esophagitis. 3. [place] fundoplication. 4. Basilar emphysematous changes with bibasilar bronchiectasis and pulmonary parenchymal scarring. 5. Noncalcified lobular 1.6 cm nodular lesion in the inferior left lower lobe adjacent to the diaphragm, unchanged. This could reflect a pulmonary nodule or pleural plaque. Attention at follow-up is recommended. Electronically authenticated by: LADONNA CRUZ Date: 09/13/2023 04:21
--- NOTE | 2023-09-13 03:11 | XR_ITS ---
The [place] [id number] Patient Name: FRANCIS GALVEZ MRN: [id number] date: 1990 Sex: M Assigned Patient Location: ER Current Patient Location: ER Accession/Order Number: [id number] Exam Date: 09/13/2023 03:20 Report Date: 09/13/2023 03:51 At the request of: VIKTORIYA GOLDSMITH Procedure: XR chest 1V EXAMINATION: XR chest 1V HISTORY: left chest pain COMPARISON: 08/27/2023 FINDINGS: Persistent right perihilar airspace opacity. Left lung clear. Hyperinflation. No pneumothorax or pleural effusions. Heart size within normal limits. XR/XR chest 1V IMPRESSION: Interval clearing of previously visualized left lung airspace consolidation/infiltrates. Stable right perihilar airspace opacity/soft tissue prominence. No new infiltrates in the remaining lungs. Electronically authenticated by: EDGARDO SZYMANSKI Date: 09/13/2023 03:51
--- NOTE | 2023-09-13 03:12 | ED_ITS ---
HPI - Male Genitourinary General Chief complaint: Urogenital-Male Stated complaint: flank pain Time Seen by Provider: 09/13/23 03:08 Source: patient Mode of arrival: Wheelchair Limitations: no limitations History of Present Illness HPI Narrative: patient presents complaining of acute onset of left flank pain within the past couple of hours. No fever, nausea or vomiting. Past history of pancreatitis. no injury. states pancreatitis was related to heavy alcohol use in the past Related Data Home Medications ?Medication ?Instructions ?Recorded ?Confirmed albuterol sulfate 2.5 mg/3 mL 2.5 mg inhalation QID 01/12/23 08/27/23 (0.083 %) solution for nebulization dexlansoprazole 60 mg 60 mg PO DAILY 04/16/23 08/27/23 capsule,biphase delayed release (Dexilant) escitalopram oxalate 10 mg tablet 10 mg PO DAILY 09/13/23 09/13/23 trazodone 50 mg tablet 50 mg PO BEDTIME 09/13/23 09/13/23 Previous Rx's ?Medication ?Instructions ?Recorded albuterol sulfate 2.5 mg/3 mL 2.5 mg (3 mL) inhalation Q6H PRN 05/25/23 (0.083 %) solution for nebulization shortness of breath or wheezing #75 mL albuterol sulfate 90 mcg/actuation 2 puff inhalation Q6H PRN 05/25/23 aerosol inhaler shortness of breath or wheezing #0 grams levofloxacin 750 mg tablet 750 mg PO DAILY 10 days #10 tabs 08/29/23 prednisone 10 mg tablet 50 mg (5 x 10 mg) PO DAILY #47 tabs 08/29/23 Allergies Allergy/AdvReac Type Severity Reaction Status Date / Time Penicillins Allergy Intermediate Verified 09/13/23 03:00 Review of Systems ROS Status of ROS 10 or more systems reviewed and unremark able except as noted in history and below [facility] Medical History (Updated 09/13/23 @ 06:33 by Carlos Dawkins MD) Marijuana abuse ?F12.10 - Cannabis abuse, uncomplicated (ICD-10) Acute hypoxic respiratory failure ?J96.01 - Acute respiratory failure with hypoxia (ICD-10) Coronavirus infection ?B34.2 - Coronavirus infection, unspecified (ICD-10) Pneumonia ?J18.9 - Pneumonia, unspecified organism (ICD-10) Hospital-acquired bacterial pneumonia ?J15.9 - Unspecified bacterial pneumonia (ICD-10) Bronchiectasis with acute lower respiratory infection ?J47.0 - Bronchiectasis with acute lower respiratory infection (ICD-10) Leukocytosis ?D72.829 - Elevated white blood cell count, unspecified (ICD-10) COVID-19 ?U07.1 - COVID-19 (ICD-10) GERD (gastroesophageal reflux disease) ?K21.9 - Gastro-esophageal reflux disease without esophagitis (ICD-10) 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34 - 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) History of gastrostomy tube placement 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 (ICD-10) Pneumonia ?J18.9 - Pneumonia, unspecified organism (ICD-10) Abdominal pain ?R10.9 - Unspecified abdominal pain (ICD-10) Abdominal pain, acute ?R10.9 - Unspecified abdominal pain (ICD-10) Surgical History History of fundoplication ?Z98.890 - Other specified postprocedural states (ICD-10) History of appendectomy ?Z90.49 - Acquired absence of other specified parts of digestive tract (ICD- 10) H/O chest tube placement ?Z98.890 - Other specified postprocedural states (ICD-10) History of facial surgery ?Z98.890 - Other specified postprocedural states (ICD-10) Family History Mother Family history of diabetes mellitus Family history of hypertension Grandmother Family history of diabetes mellitus Grandfather Family history of myocardial infarction Social History Within the past year, how often did you have a drink containing alcohol: 2-4 times a month Within the past year, how many standard drinks containing alcohol did you have on a typical day: 1 or 2 Within the past year, how often did you have six or more drinks on one occasion: weekly Total score: 3 Score interpretation: A score of 4 or more indicates drinking is likely to affect patient's safety. 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 Known occupational exposures/hazards: No Highest level of school completed/degree received: high school graduate Are you now , , , , never or living with a partner: In a typical week, how many times do you talk on the telephone with family, friends, or neighbors: 3 or more times per week How often do you get together with friends or relatives: once per week How often do you attend latter-day or taoism services: never Do you belong to any clubs or organizations such as latter-day groups unions, fraternal or athletic groups, or school groups: no Total score: 1 Score interpretation: A score of less than or equal to 1 indicates the most socially isolated. Little interest or pleasure in doing things: not at all Feeling down, depressed, or hopeless: not at all Feel stressed/tense/nervous/anxious/difficulty sleeping: not at all Do you think of yourself as: straight/heterosexual Gender Identity: male Exam Constitutional Vital Signs, click to edit/add: Last Vital Signs Temp 98.7 F 09/13/23 02:56 Pulse 95 H 09/13/23 02:56 Resp 18 09/13/23 02:56 BP 136/76 09/13/23 02:56 Pulse Ox 95 09/13/23 02:56 O2 Del Method Room Air 09/13/23 02:56 Common normals: oriented x3, no limitations, healthy appearing, alert and well nourished General appearance: in distress HENMT Common normals: normocephalic and head/scalp atraumatic Eye Common normals: EOMs intact bilaterally and conjunctivae normal Respiratory Common normals: normal respiratory effort, no retractions, no use of accessory muscles and clear to auscultation bilaterally Cardio Common normals: regular rate, regular rhythm, S1 normal heart sound and S2 normal heart sound GI Common normals: Normal to inspection, nondistended, normoactive bowel sounds present Other: left flank tenderness and LUQ tenderness Extremity Common normals: normal to inspection and full ROM Neuro Common normals: oriented x3, CN's II-XII intact bilaterally, moves all extremities and no focal motor deficits Psych Appearance: grossly normal Course Vital Signs Vital signs: Vital Signs Temperature 98.7 F 09/13/23 02:56 Pulse Rate 95 H 09/13/23 02:56 Respiratory Rate 18 09/13/23 02:56 Blood Pressure 136/76 09/13/23 02:56 Pulse Oximetry 95 09/13/23 02:56 Oxygen Delivery Method Room Air 09/13/23 02:56 Temperature 98.7 F 09/13/23 02:56 Pulse Rate 95 H 09/13/23 02:56 Respiratory Rate 18 09/13/23 02:56 Blood Pressure 136/76 09/13/23 02:56 Pulse Oximetry 95 09/13/23 02:56 Oxygen Delivery Method Room Air 09/13/23 02:56 MDM - Male Genitourinary MDM Narrative Medical decision making narrative: patient presents with acute left flank , LUQ pain. First CT without contrast concerning for mass. Repeat CT with contrast with finding of prominent fluid and fat stranding surrounding the distal pancreatitic tail that may reflect pancreatitis. labs with elevated amylase and lipase. UA clear. Discussed with Dr Webber and patient accepted for admission Lab Data Labs: Lab Results 09/13/23 09/13/23 Range/Units 03:00 04:50 WBC 8.7 (4.0-11.0) 10^3/uL RBC 5.51 (4.70-6.10) 10^6/uL Hgb 15.7 (14.0-18.0) g/dL Hct 48.4 (42.0-54.0) % MCV 87.8 (80.0-94.0) fL MCH 28.5 (25.9-34.0) pg MCHC 32.4 (29.9-35.2) g/dL RDW 13.2 (11.0-15.0) % Plt Count 324 (150-450) 10^3/uL MPV 11.3 (9.5-13.5) fL Neut % (Auto) 56.6 (43.0-75.0) % Lymph % (Auto) 28.0 (20.5-60.0) % Nicol[place] % (Auto) 11.0 (1.7-12.0) % Eos % (Auto) 1.9 (0.9-7.0) % Baso % (Auto) 1.4 (0.2-2.0) % Neut # (Auto) 4.9 (1.4-6.5) 10^3/uL Lymph # (Auto) 2.4 (1.2-3.8) 10^3/uL Nicol[place] # (Auto) 1.0 H (0.3-0.8) 10^3/uL Eos # (Auto) 0.2 (0.0-0.7) 10^3/uL Baso # (Auto) 0.1 (0.0-0.1) 10^3/uL Abs Immat Gran (auto) 0.10 H (0.00-0.03) 10^3/uL Imm/Tot Granulo (auto) 1.1 H (0.0-0.5) % Sodium 139 (136-145) mmol/L Potassium 3.6 (3.5-5.1) mmol/L Chloride 101 (98-107) mmol/L Carbon Dioxide 28.1 (21.0-32.0) mmol/L Anion Gap 13.5 BUN 18.0 (7.0-18.0) mg/dL Creatinine 0.84 (0.70-1.30) mg/dL Est GFR ( Amer) >60 (>=60) Est GFR (Non-Af Amer) >60 (>=60) BUN/Creatinine Ratio 21.4 Glucose 113 H (74-106) mg/dL Lactate 1.6 (0.4-2.0) mmol/L Calcium 9.1 (8.5-10.1) mg/dL Total Bilirubin 0.3 (0.2-1.0) mg/dL Direct Bilirubin 0.1 (0.0-0.2) mg/dL AST 12 L (15-37) U/L ALT 25 (16-63) U/L Alkaline Phosphatase 99 (46-116) U/L Total Protein 7.0 (6.4-8.2) g/dL Albumin 3.7 (3.4-5.0) g/dL Globulin 3.3 g/dL Albumin/Globulin Ratio 1.1 Amylase 466 H* (25-115) U/L Lipase 1525.0 H* (16.0-77.0) U/L Urine Color Yellow (YELLOW) Urine Clarity Clear (CLEAR) Urine pH 5.5 (5.0-9.0) Ur Specific Leonidas >=1.030 A (1.005-1.025) Urine Protein Negative (NEG/TRACE) mg/dL Urine Glucose (UA) Negative (NEGATIVE) mg/dL Urine Ketones Negative (NEGATIVE) mg/dL Urine Occult Blood Negative (NEGATIVE) Urine Nitrite Negative (NEGATIVE) Urine Bilirubin Negative (NEGATIVE) Urine Urobilinogen 0.2 (0.2-1.0) EU/dL Ur Leukocyte Esterase Negative (NEGATIVE) Imaging Data Abdominal x-ray: Radiologist's impression: ITS Impressions Abdomen/Pelvis CT 09/13/23 03:11 IMPRESSION: 1. Nonspecific prominent fluid and fat stranding in the posterior left upper pelvis contiguous with the tail of the pancreas and posterior spleen, incompletely evaluated on this nonenhanced exam. Underlying 5.2 x 2.6 cm soft tissue nodule could reflect hematoma and/or pancreatic tail versus underlying an accessory splenule. No overlying rib fracture or chest wall contusion is seen. If there is concern for hematoma and surrounding hemorrhagic fat stranding, and IV contrast enhanced exam is recommended to further evaluate. Focal pancreatitis is an alternative possibility. No additional acute findings are seen in the abdomen or pelvis. The spleen appears grossly unremarkable. 2. Nonspecific distal esophageal wall thickening suspicious for esophagitis. 3. Kelsea fundoplication. 4. Basilar emphysematous changes with bibasilar bronchiectasis and pulmonary parenchymal scarring. 5. Noncalcified lobular 1.6 cm nodular lesion in the inferior left lower lobe adjacent to the diaphragm, unchanged. This could reflect a pulmonary nodule or pleural plaque. Attention at follow-up is recommended. Electronically authenticated by: LADONNA CRUZ Date: 09/13/2023 04:21 Chest X-Ray 09/13/23 03:11 IMPRESSION: Interval clearing of previously visualized left lung airspace consolidation/infiltrates. Stable right perihilar airspace opacity/soft tissue prominence. No new infiltrates in the remaining lungs. Electronically authenticated by: EDGARDO SZYMANSKI Date: 09/13/2023 03:51 Abdomen/Pelvis CT 09/13/23 05:09 IMPRESSION: Redemonstration of previously described prominent fluid and fat stranding in the posterior left upper quadrant subjacent to the diaphragm surrounding the distal pancreatic tail. This may reflect focal pancreatitis. Clinical correlation is recommended. There is no underlying hematoma, mass, active bleeding, solid organ injury or other acute diagnostic abnormality in the abdomen or pelvis. Findings appear unchanged from recent exam of 2 hours ago. Please reference prior report for description of multiple additional findings. Electronically authenticated by: LADONNA CRUZ Date: 09/13/2023 05:56 Discharge Plan Discharge Chief Complaint: Urogenital-Male Clinical Impression: Acute pancreatitis Patient Disposition: Admitted As Inpatient Prescriptions / Home Meds: No Action albuterol sulfate 2.5 mg /3 mL (0.083 %) solution for nebulization 2.5 mg inhalation QID dexlansoprazole [Dexilant] 60 mg capsule,biphase delayed releas 60 mg PO DAILY prednisone 10 mg tablet 50 mg PO DAILY Qty: 47 0RF Rx Instructions: 5/day for 3 days. 4/day for 3 days, 3/day for 3 days, 2/day for 3 days, 1/day for 3 days, 1/2 /day for 4 days levofloxacin 750 mg tablet 750 mg PO DAILY 10 Days Qty: 10 0RF trazodone 50 mg tablet 50 mg PO BEDTIME escitalopram oxalate 10 mg tablet 10 mg PO DAILY albuterol sulfate 2.5 mg /3 mL (0.083 %) solution for nebulization 2.5 mg inhalation Q6H PRN (Reason: shortness of breath or wheezing) Qty: 75 0RF albuterol sulfate 90 mcg/actuation HFA aerosol inhaler 2 puff INHALATION Q6H PRN (Reason: shortness of breath or wheezing) Qty: 0 0RF Print Language: Welsh Referrals: Physician,Non-Staff, MD [Primary Care Provider] - 1 week
[2023-09-13 03:24] LABS: Basophils Absolute Auto 0.1 10^3/uL (0.0-0.1); Basophils Percent Auto 1.4 % (0.2-2.0); Eosinophils Absolute Auto 0.2 10^3/uL (0.0-0.7); Eosinophils Percent Auto 1.9 % (0.9-7.0); Hematocrit 48.4 % (42.0-54.0); Hemoglobin 15.7 g/dL (14.0-18.0); Immature Granulocytes Pct Auto 1.1 % (0.0-0.5); Lymphocytes Absolute Auto 2.4 10^3/uL (1.2-3.8); Mean Corpuscular HGB Conc 32.4 g/dL (29.9-35.2); Mean Corpuscular Hemoglobin 28.5 pg (25.9-34.0); Mean Corpuscular Volume 87.8 fL (80.0-94.0); Mean Platelet Volume 11.3 fL (9.5-13.5); Neutrophils Absolute Auto 4.9 10^3/uL (1.4-6.5); Neutrophils Percent Auto 56.6 % (43.0-75.0); Platelet Count 324 10^3/uL (150-450); Red Blood Count 5.51 10^6/uL (4.70-6.10); Red Cell Distribution Width 13.2 % (11.0-15.0); White Blood Count 8.7 10^3/uL (4.0-11.0)
[2023-09-13 03:25] LABS: Anion Gap 13.5; BUN Creatinine Ratio 21.4; Calcium 9.1 mg/dL (8.5-10.1); Carbon Dioxide 28.1 mmol/L (21.0-32.0); Chloride 101 mmol/L (98-107); Estimated GFR (African America >60 (>=60); Estimated GFR (Non-African Ame >60 (>=60); Glucose 113 mg/dL (74-106); Potassium 3.6 mmol/L (3.5-5.1); Sodium 139 mmol/L (136-145)
[2023-09-13 03:33] LABS: Lactate/Lactic Acid 1.6 mmol/L (0.4-2.0)
[2023-09-13] MEDS: 0.9 % SODIUM CHLORIDE 1,000 ML 999 ML IV (03:43)
[2023-09-13] MEDS: KETOROLAC TROMETHAMINE 30 MG/ML VIAL IM (03:44)
[2023-09-13] MEDS: ORPHENADRINE 60 MG/ 2 ML VIAL IV (03:45)
[2023-09-13 04:59] LABS: Bilirubin Urine NEGATIVE (NEGATIVE); Blood Urine NEGATIVE (NEGATIVE); Clarity Urine CLEAR (CLEAR); Color Urine YELLOW (YELLOW); Glucose Urine UA NEGATIVE (NEGATIVE); Ketones Urine NEGATIVE (NEGATIVE); Leukocyte Esterase Urine NEGATIVE (NEGATIVE); Nitrite Urine NEGATIVE (NEGATIVE); Protein Urine NEGATIVE (NEG/TRACE); Specific Gravity Urine >=1.030 (1.005-1.025); Urobilinogen Urine 0.2 EU/dL (0.2-1.0); pH Urine 5.5 (5.0-9.0)
[2023-09-13 05:00] LABS: Urine Microscopic Indicated NO
--- NOTE | 2023-09-13 05:09 | CT_ITS ---
The [address] [address] Patient Name: FRANCIS GALVEZ MRN: [id number] date: 1990 Sex: M Assigned Patient Location: ER Current Patient Location: ER Accession/Order Number: [id number] Exam Date: 09/13/2023 05:29 Report Date: 09/13/2023 05:56 At the request of: VIKTORIYA GOLDSMITH Procedure: CT abdomen pelvis w con EXAM: CT abdomen pelvis w con HISTORY: left flank pain COMPARISON: CT abdomen pelvis, 09/13/2023 at 3:27 AM. TECHNIQUE: IV contrast enhanced CT imaging the abdomen and pelvis was performed using Omnipaque 300, with sagittal and coronal reconstructions. Dose reduction techniques were achieved by using automated exposure control and/or adjustment of mA and/or kV according to patient size and/or use of iterative reconstruction technique. FINDINGS: CT ABDOMEN: Bibasilar bronchiectasis, emphysematous changes, pulmonary parenchymal scarring and inferior left lower lobe nodule are unchanged. The previously described nonspecific nodule posterior to the spleen in the left upper quadrant reflects cranial extension of the pancreatic tail. Diffuse surrounding simple density fluid and fat stranding are noted subjacent to the left diaphragm and posterior to the spleen, measuring 13 Hounsfield units on image 14. No hemorrhage or active bleeding is seen. No solid organ injury is present. Distal esophageal wall thickening and Kelsea fundoplication are unchanged. A nonspecific 1.3 cm nodule in the descending duodenum on image 53 may reflect ingested food or polyp. The small bowel is otherwise unremarkable. The gallbladder remains contracted. The solid abdominal organs are unremarkable and unchanged. CT PELVIS: No acute pelvic abnormality is seen. Pelvic findings are unchanged from recent exam of [address]/CT abdomen pelvis w con IMPRESSION: Redemonstration of previously described prominent fluid and fat stranding in the posterior left upper quadrant subjacent to the diaphragm surrounding the distal pancreatic tail. This may reflect focal pancreatitis. Clinical correlation is recommended. There is no underlying hematoma, mass, active bleeding, solid organ injury or other acute diagnostic abnormality in the abdomen or pelvis. Findings appear unchanged from recent exam of 2 hours ago. Please reference prior report for description of multiple additional findings. Electronically authenticated by: LADONNA CRUZ Date: 09/13/2023 05:56
[2023-09-13 05:54] LABS: Alanine Aminotransferase 25 U/L (16-63); Albumin Globulin Ratio 1.1; Albumin Level 3.7 g/dL (3.4-5.0); Alkaline Phosphatase 99 U/L (46-116); Aspartate Amino Transferase 12 U/L (15-37); Bilirubin Direct 0.1 mg/dL (0.0-0.2); Bilirubin Total 0.3 mg/dL (0.2-1.0); Globulin 3.3 g/dL
[2023-09-13 05:58] LABS: Amylase 466 U/L (25-115)
[2023-09-13] MEDS: FENTANYL CITRATE/PF 100 MCG/2 ML VIAL IV (06:36)
[2023-09-13] MEDS: ENOXAPARIN SODIUM 40 MG/0.4 ML SYRINGE SUBQ (08:19)
[2023-09-13] MEDS: ESCITALOPRAM 10 MG TABLET PO (08:19)
[2023-09-13] MEDS: LACTATED RINGER'S SOLUTION 1,000 ML 200 ML IV ×4 (08:20→23:45)
[2023-09-13] MEDS: PANTOPRAZOLE SODIUM 40 MG VIAL IV (08:20)
--- NOTE | 2023-09-13 09:50 | CM.NOTE ---
Rounds made with Dr. Webber. Luis explains symptoms leading him to ER to Dr. Webber. Dr. Webber reviews lab work with Luis and new orders. Luis verbalizes understanding.
--- NOTE | 2023-09-13 11:26 | SWNOTE1 ---
SW met with pt to discuss dc needs and to speak with him about drinking. Pt voiced he was doing well at home and he has been working a lot. He stated at night he would come home from work and have a few beers, 1 or 2 tall boys. Pt stated he did this just to relax. At this time with the pancreatitis, he voiced he knows he just has to quit drinking. Pt comes from a family of alcoholics and drug users. 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 He does not feel he needs to go to any rehab inpt or outpt or sober living for his alcohol intake. He stated he can stop on his own. Pt did then voice he does smoke marijuana and no plans of quitting this. SW asked if this will affect his pancreatitis? Pt is not sure. SW advised pt to consider stopping this as well. At this time pt does not feel he needs any resources in regards to rehab for alcohol. SW to follow as needed. Important Message from [employer] reviewed and discussed with patient. Pt. verbalized understanding and signed the form. Original given to patient and copy placed in patient?s chart.
--- NOTE | 2023-09-13 11:31 | SWNOTE1 ---
Pt does wear oxygen at home at night. Oxygen comes from [employer].
[2023-09-13] MEDS: OXYCODONE HCL 5 MG TABLET PO ×2 (13:25→19:39)
[2023-09-13] MEDS: ACETAMINOPHEN 325 MG TABLET 650 MG PO (13:25)
--- NOTE | 2023-09-13 15:59 | P.HP_ITS ---
<Statement entered by Shaikh Lawanda MD - 09/14/23 10:26> This documentation has been reviewed and approved. Patient seen and examined. His clinical hx, medical records reviewed. His case was discussed with ED provider, his RN and hospitalist [employer]. Exam: Laying in bed. Turned to his side because of pain. Looks uncomfortable and in pain Normal RR, CTA b/l Normal HR, No murmur Abd is non distended. Has left upper quadrant tenderness. Guarding due to pain. Assessment and Plan Acute alcoholic pancreatitis Chronic resp failure with hypoxia Hx of tracheoesophageal fistula s/p repair. Bronchiectasis Depression Patient admitted for acute pancreatitis. His symptoms started after alcohol use. His pain is poory controlled and he seems to be in sig abdominal pain and in distress because of that. He has prior hx of pancreatitis and understands that he should abstain from alcohol. Patient admitted for supportive care, close monitoring and treatment of his pancreatitis. He is on aggressive IV hydration, combination of oral and IV narcotics to treat his pain and on zofran as needed for nausea. Give his previous hx of recurrent pancreatitis, hx of thoraci abdominal surgery for TE fistula, bronchiectasis and chronic resp failure, he will need close monitoring of his hemodynamic status and is at high risk of poor outcome and complications from acute pancreatitis. I anticipate him needing inpatient care spanning over 2 MN for these reasons and hence, he was admitted as inpatient for his current illness. HPI H&P: HPI History of Present Illness Chief complaint: flank pain Narrative: 09/13/23 1600 This is a 35-year-old male patient with a past medical history significant for remote history of TEF repair, chronic asthma, and bronchiectasis and depression; who presented to the ED early this morning complaining of acute onset of left flank pain. The patient reports previous episodes of pancreatitis associated with alcohol intake. He drank 1 beer last night and went to bed and then woke up around 130 or 2 in the morning with severe left flank pain. He presented to the ED for further evaluation. Workup in the ED revealed unremarkable labs except for elevated amylase (466) and lipase (1525). Chest x-ray was negative for acute findings. The initial CT of the abdomen without contrast was suspicious for possible mass near the pancreas. A repeat CT with contrast was obtained and this revealed prominent fluid and fat stranding in the left upper quadrant subjacent to the diaphragm surrounding the distal pancreatic tail and a suspicious for focal pancreatitis. Patient was admitted as an inpatient to the hospitalist service. At the time of my exam this afternoon the patient is resting comfortably in bed. He continues to report left side pain radiating through to his left flank. He reports that it is improving with pain medication and bowel rest. He is requesting advancing his diet to a soft diet. We will also schedule his breathing treatments due to his history of bronchiectasis. He remains afebrile and without nausea and vomiting. Opioid HPI Opioid Management Most Recent Opioid Data: Last Pain Scale 8 09/13/23 15:20 Last Pain Assessment 09/13/23 15:01 Last MAR Pain Assessment 09/13/23 15:20 Last ORT Total Score 7 09/13/23 08:12 Last ORT Risk Category Moderate Risk 09/13/23 08:12 Review of Systems ROS Status of ROS 10 or more systems reviewed and unremark able except as noted in history and below [facility] [place] History (Updated 09/13/23 @ 16:25 by Faith Vásquez NP) Depression ?F32.A - Depression, unspecified (ICD-10) Bronchiectasis ?J47.9 - Bronchiectasis, uncomplicated (ICD-10) Chronic respiratory failure with hypoxia ?J96.11 - Chronic respiratory failure with hypoxia (ICD-10) Upper respiratory infection ?J06.9 - Acute upper respiratory infection, unspecified (ICD-10) Acute hypokalemia ?E87.6 - Hypokalemia (ICD-10) Avulsion of skin ?T14.8XXA - Other injury of unspecified body region, initial encounter (ICD- 10) Influenza ?J11.1 - Influenza due to unidentified influenza virus with other respiratory manifestations (ICD-10) Marijuana abuse ?F12.10 - Cannabis abuse, uncomplicated (ICD-10) Acute hypoxic respiratory failure ?J96.01 - Acute respiratory failure with hypoxia (ICD-10) Coronavirus infection ?B34.2 - Coronavirus infection, unspecified (ICD-10) Pneumonia ?J18.9 - Pneumonia, unspecified organism (ICD-10) Hospital-acquired bacterial pneumonia ?J15.9 - Unspecified bacterial pneumonia (ICD-10) Bronchiectasis with acute lower respiratory infection ?J47.0 - Bronchiectasis with acute lower respiratory infection (ICD-10) Leukocytosis ?D72.829 - Elevated white blood cell count, unspecified (ICD-10) COVID-19 ?U07.1 - COVID-19 (ICD-10) GERD (gastroesophageal reflux disease) ?K21.9 - Gastro-esophageal reflux disease without esophagitis (ICD-10) 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34 - 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) History of gastrostomy tube placement 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 (ICD-10) Pneumonia ?J18.9 - Pneumonia, unspecified organism (ICD-10) Abdominal pain ?R10.9 - Unspecified abdominal pain (ICD-10) Abdominal pain, acute ?R10.9 - Unspecified abdominal pain (ICD-10) Surgical History History of fundoplication ?Z98.890 - Other specified postprocedural states (ICD-10) History of appendectomy ?Z90.49 - Acquired absence of other specified parts of digestive tract (ICD- 10) H/O chest tube placement ?Z98.890 - Other specified postprocedural states (ICD-10) History of facial surgery ?Z98.890 - Other specified postprocedural states (ICD-10) Family History Mother Family history of diabetes mellitus Family history of hypertension Grandmother Family history of diabetes mellitus Grandfather Family history of myocardial infarction Social History Within the past year, how often did you have a drink containing alcohol: 2-4 times a month Within the past year, how many standard drinks containing alcohol did you have on a typical day: 1 or 2 Within the past year, how often did you have six or more drinks on one occasion: weekly Total score: 3 Score interpretation: A score of 4 or more indicates drinking is likely to affect patient's safety. 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 Known occupational exposures/hazards: No Highest level of school completed/degree received: Associate degree: occupational, technical, vocational program Are you now , , , , never or living with a partner: In a typical week, how many times do you talk on the telephone with family, friends, or neighbors: 3 or more times per week How often do you get together with friends or relatives: once per week How often do you attend hoahaoism or restoration services: never Do you belong to any clubs or organizations such as hoahaoism groups unions, fraternal or athletic groups, or school groups: no Total score: 1 Score interpretation: A score of less than or equal to 1 indicates the most socially isolated. Little interest or pleasure in doing things: not at all Feeling down, depressed, or hopeless: not at all Feel stressed/tense/nervous/anxious/difficulty sleeping: not at all Do you think of yourself as: straight/heterosexual Gender Identity: male Meds Home Medications and Allergies Home Medications ?Medication ?Instructions ?Recorded ?Confirmed ?Type albuterol sulfate 2.5 mg/3 mL 2.5 mg (3 mL) inhalation Q6H PRN 05/25/23 09/13/23 Rx (0.083 %) solution for nebulization shortness of breath or wheezing #75 mL albuterol sulfate 90 mcg/actuation 2 puff inhalation Q6H PRN 05/25/23 09/13/23 Rx aerosol inhaler shortness of breath or wheezing #0 grams prednisone 10 mg tablet 50 mg (5 x 10 mg) PO DAILY #47 tabs 08/29/23 09/13/23 Rx escitalopram oxalate 10 mg tablet 10 mg PO DAILY 09/13/23 09/13/23 History trazodone 50 mg tablet 50 mg PO BEDTIME 09/13/23 09/13/23 History Allergies Allergy/AdvReac Type Severity Reaction Status Date / Time Penicillins Allergy Intermediate Verified 09/13/23 03:00 Exam Constitutional Vital Signs, click to edit/add: Last Vital Signs Temp 97.9 F 09/13/23 11:44 Pulse 68 09/13/23 15:01 Resp 14 09/13/23 15:01 BP 120/82 09/13/23 11:44 Pulse Ox 96 09/13/23 11:44 O2 Del Method Nasal Cannula 09/13/23 11:44 O2 Flow Rate 2 09/13/23 11:44 Common normals: no apparent distress, oriented x3, alert and well nourished General appearance: cooperative Orientation/consciousness: Yes awake HENMT Common normals: normocephalic, head/scalp atraumatic, hearing grossly normal bilaterally, external nose normal and moist oral mucous membranes Eye Common normals: PERRL, EOMs intact bilaterally, conjunctivae normal and no scleral icterus Alignment: alignment normal Eyelid: eyelids normal Neck & C-Spine Common normals: full ROM, supple and no JVD Chest Common normals: inspection of chest normal Chest: symmetrical chest wall rise Respiratory Common normals: normal respiratory effort, no retractions, no use of accessory muscles and clear to auscultation bilaterally Effort & inspection: able to speak in complete sentences Auscultation: rhonchi (scattered exp throughout consistent with known bronchiectasis) and wheezes (faint scattered occ wheeze) Cardio Common normals: no JVD, regular rate, regular rhythm, S1 normal heart sound, S2 normal heart sound, no gallops, no clicks, no murmurs, no rub and peripheral pulses 2+ throughout GI Common normals: Normal to inspection, nondistended, normoactive bowel sounds present, soft to palpation, no hepatosplenomegaly, no masses and no bruits Palpation: tender Details: LLQ and LUQ (exquisitely tender); no guarding and no rebound tenderness present Bladder/kidney exam: bladder normal to palpation Extremity Common normals: normal capillary refill and no pedal edema General: normal exam except as noted; no clubbing and no cyanosis Neuro [place] Coma Scale: GCS not evaluated Common normals: CN's II-XII intact bilaterally, moves all extremities, no focal motor deficits and no sensory deficits noted Speech: speech normal Motor exam: strength 5/5 throughout Psych Common normals: mental status grossly normal, thought process normal, affect normal and activity/motor behavior normal Results Labs Labs: Short CBC 09/13/23 Range/Units 03:00 WBC 8.7 (4.0-11.0) 10^3/uL Hgb 15.7 (14.0-18.0) g/dL Hct 48.4 (42.0-54.0) % Plt Count 324 (150-450) 10^3/uL BMP 09/13/23 03:00 Sodium 139 Potassium 3.6 Chloride 101 Carbon Dioxide 28.1 BUN 18.0 Creatinine 0.84 Glucose 113 H Calcium 9.1 Liver Function 09/13/23 Range/Units 03:00 Total Bilirubin 0.3 (0.2-1.0) mg/dL Direct Bilirubin 0.1 (0.0-0.2) mg/dL AST 12 L (15-37) U/L ALT 25 (16-63) U/L Alkaline Phosphatase 99 (46-116) U/L Albumin 3.7 (3.4-5.0) g/dL Urine 09/13/23 Range/Units 04:50 Urine Color Yellow (YELLOW) Urine Clarity Clear (CLEAR) Urine pH 5.5 (5.0-9.0) Ur Specific [place] >=1.030 A (1.005-1.025) Urine Protein Negative (NEG/TRACE) mg/dL Urine Glucose (UA) Negative (NEGATIVE) mg/dL Pulse Oximetry Attestation: I have reviewed the pertinent pulse oximetry results. Imaging Chest x-ray: Attestation: I have reviewed the pertinent imaging results. Radiologist's impression: IMPRESSION: Interval clearing of previously visualized left lung airspace consolidation/infiltrates. Stable right perihilar airspace opacity/soft tissue prominence. No new infiltrates in the remaining lungs. CT scan - abdomen: Attestation: I have reviewed the pertinent imaging results. Radiologist's impression: IMPRESSION: 1. Nonspecific prominent fluid and fat stranding in the posterior left upper pelvis contiguous with the tail of the pancreas and posterior spleen, incompletely evaluated on this nonenhanced exam. Underlying 5.2 x 2.6 cm soft tissue nodule could reflect hematoma and/or pancreatic tail versus underlying an accessory splenule. No overlying rib fracture or chest wall contusion is seen. If there is concern for hematoma and surrounding hemorrhagic fat stranding, and IV contrast enhanced exam is recommended to further evaluate. Focal pancreatitis is an alternative possibility. No additional acute findings are seen in the abdomen or pelvis. The spleen appears grossly unremarkable. 2. Nonspecific distal esophageal wall thickening suspicious for esophagitis. 3. [place] fundoplication. 4. Basilar emphysematous changes with bibasilar bronchiectasis and pulmonary parenchymal scarring. 5. Noncalcified lobular 1.6 cm nodular lesion in the inferior left lower lobe adjacent to the diaphragm, unchanged. This could reflect a pulmonary nodule or pleural plaque. Attention at follow-up is recommended. CT abdomen with Contrast: Attestation: I have reviewed the pertinent imaging results. Radiologist's impression: IMPRESSION: Redemonstration of previously described prominent fluid and fat stranding in the posterior left upper quadrant subjacent to the diaphragm surrounding the distal pancreatic tail. This may reflect focal pancreatitis. Clinical correlation is recommended. There is no underlying hematoma, mass, active bleeding, solid organ injury or other acute diagnostic abnormality in the abdomen or pelvis. Findings appear unchanged from recent exam of 2 hours ago. Please reference prior report for description of multiple additional findings. Assessment and Plan Assessment and Plan (1) Acute pancreatitis: Assessment and Plan: Acute * Adm inpatient * 2/2 alcohol intake * Full liquid diet - for bowel rest * Zofran for nausea * MS IVP or oxycodone for pain * LR at 200/hr * CBC, CMP daily (2) Bronchiectasis: Assessment and Plan: Chronic * Continue home albuterol nebs q6h scheduled * No hypoxia or sob at this time (3) Depression: Assessment and Plan: Chronic * Continue home lexapro
[2023-09-13] MEDS: ALBUTEROL SULFATE 2.5 MG/3 ML VIAL NEB IH ×2 (16:48→22:17)
[2023-09-13] MEDS: TRAZODONE HCL 50 MG TABLET PO (21:27)
[2023-09-14] VITALS (21 sets, daily range): BP systolic 116–130; BP diastolic 56–72; PULSE 73–107; TEMP 36.1–36.8; O2SAT 91–97
[2023-09-14 04:44] LABS: Basophils Absolute Auto 0.1 10^3/uL (0.0-0.1); Basophils Percent Auto 0.7 % (0.2-2.0); Eosinophils Absolute Auto 0.1 10^3/uL (0.0-0.7); Eosinophils Percent Auto 0.8 % (0.9-7.0); Hematocrit 38.3 % (42.0-54.0); Hemoglobin 12.2 g/dL (14.0-18.0); Immature Granulocytes Abs Auto 0.04 10^3/uL (0.00-0.03); Immature Granulocytes Pct Auto 0.4 % (0.0-0.5); Lymphocytes Absolute Auto 1.5 10^3/uL (1.2-3.8); Lymphocytes Percent Auto 14.6 % (20.5-60.0); Mean Corpuscular HGB Conc 31.9 g/dL (29.9-35.2); Mean Corpuscular Hemoglobin 28.5 pg (25.9-34.0); Mean Corpuscular Volume 89.5 fL (80.0-94.0); Mean Platelet Volume 12.1 fL (9.5-13.5); Monocytes Absolute Auto 0.8 10^3/uL (0.3-0.8); Monocytes Percent Auto 7.5 % (1.7-12.0); Neutrophils Absolute Auto 7.6 10^3/uL (1.4-6.5); Platelet Count 203 10^3/uL (150-450); Red Blood Count 4.28 10^6/uL (4.70-6.10); Red Cell Distribution Width 13.4 % (11.0-15.0); White Blood Count 9.9 10^3/uL (4.0-11.0)
[2023-09-14] MEDS: LACTATED RINGER'S SOLUTION 1,000 ML 200 ML IV (04:47)
[2023-09-14] MEDS: ALBUTEROL SULFATE 2.5 MG/3 ML VIAL NEB IH ×4 (05:00→22:03)
[2023-09-14 05:25] LABS: Alanine Aminotransferase 18 U/L (16-63); Albumin Globulin Ratio 1.3; Albumin Level 2.9 g/dL (3.4-5.0); Alkaline Phosphatase 62 U/L (46-116); Anion Gap 7.7; Aspartate Amino Transferase 11 U/L (15-37); BUN Creatinine Ratio 12.7; Bilirubin Total 0.6 mg/dL (0.2-1.0); Calcium 8.1 mg/dL (8.5-10.1); Carbon Dioxide 29.7 mmol/L (21.0-32.0); Chloride 106 mmol/L (98-107); Estimated GFR (African America >60 (>=60); Estimated GFR (Non-African Ame >60 (>=60); Globulin 2.3 g/dL; Glucose 82 mg/dL (74-106); Potassium 3.4 mmol/L (3.5-5.1); Sodium 140 mmol/L (136-145); Total Protein 5.2 g/dL (6.4-8.2)
[2023-09-14] MEDS: OXYCODONE HCL 5 MG TABLET PO ×3 (08:30→23:25)
[2023-09-14] MEDS: ENOXAPARIN SODIUM 40 MG/0.4 ML SYRINGE SUBQ (08:30)
[2023-09-14] MEDS: ESCITALOPRAM 10 MG TABLET PO (08:30)
[2023-09-14] MEDS: PANTOPRAZOLE SODIUM 40 MG VIAL IV (08:30)
--- NOTE | 2023-09-14 10:10 | CM.NOTE ---
Rounds made with Dr. Webber, no discharge today. Dr. Webber discussed in depth regarding low fat diet. Also discussed about alcohol intake and carbonation. Pt verbalizes understanding. Pt continues with abdominal pain, denies nausea.
--- NOTE | 2023-09-14 11:09 | P.IMPN_ITS ---
Progress Note: A&P Assessment and Plan (1) Acute pancreatitis: Assessment and Plan: Likely alcoholic pancreatitis. Lipase normal today but patient still has sig abdominal pain. Tolerating his diet. C/w supportive care, monitor. Patient educated on adhering to dietary restrictions and refrain from alcohol use. Qualifiers: Pancreatitis type: alcohol induced Acute pancreatitis complication: no infection or necrosis Qualified Code(s): K85.20 - Alcohol induced acute pancreatitis without necrosis or infection (2) Bronchiectasis: Assessment and Plan: Due to prior hx of TE fistula. No resp symptoms at this point. Monitor Qualifiers: Bronchiectasis type: uncomplicated Qualified Code(s): J47.9 - Bronchiectasis, uncomplicated (3) Depression: Assessment and Plan: Stable. Cw lexapro Qualifiers: Depression Type: major depressive disorder Major depression recurrence: recurrent Active/Remission status: in full remission Qualified Code(s): F33.42 - Major depressive disorder, recurrent, in full remission (4) Chronic respiratory failure with hypoxia: Assessment and Plan: on 2-3 L O2 via NC chronically. At baseline and stable. (5) TEF (tracheoesophageal fistula): Assessment and Plan: s/p thoracoabdominal surgery as a child (6) Malnutrition of moderate degree: Assessment and Plan: Low BMI, poor PO intake, recurrent hospital admissions, increased disease burden, loss of muscle mass or low muscle mass. This likely all stems from his hx of thoracoabdominal surgery for TEF and has resulted in poor nutritional status overall. Will benefit from drop hammer setter up consulted. Plan Decrease IVF as patient has good PO intake. Pain is better but he is stil quite uncomfortable requiring IV narcotics. C/w supportive care, monitor for potential complication from pancreatitis. Internal Medicine - PN: Subj Subjective Interval history: Seen and examined. Tolerating soft diet. But non complaint with dietary restrictions. Lipase is better. No overnigt nights. Patient is still in sig pain and uncomfortable. His pain is however improved from before and about 6-7/10 Exam Constitutional Vital Signs, click to edit/add: Last Vital Signs Temp 97.7 F 09/14/23 08:37 Pulse 75 09/14/23 10:00 Resp 18 09/14/23 08:37 BP 118/56 09/14/23 08:37 Pulse Ox 97 09/14/23 08:37 O2 Del Method Room Air 09/14/23 08:37 O2 Flow Rate 2 09/14/23 04:00 Documenting provider has reviewed patient's vital signs: yes Common normals: no apparent distress and oriented x3 General appearance: cooperative and comfortable Respiratory Common normals: normal respiratory effort, no retractions and no use of accessory muscles Effort & inspection: able to speak in complete sentences Cardio Common normals: no JVD, regular rate, regular rhythm, S1 normal heart sound and S2 normal heart sound GI Common normals: no hepatosplenomegaly Palpation: soft and tender Details: LUQ Other: surgical scar from prior surgery. Extremity Common normals: no clubbing, cyanosis or edema Neuro Common normals: oriented x3, moves all extremities and no focal motor deficits Psych Common normals: mental status grossly normal, thought process normal, denies homicidal ideation and denies suicidal ideation Internal Medicine - PN: Obj Da Labs Labs: Laboratory Results - last 24 hr 09/14/23 04:01 WBC 9.9 RBC 4.28 L Hgb 12.2 L Hct 38.3 L MCV 89.5 MCH 28.5 MCHC 31.9 RDW 13.4 Plt Count 203 MPV 12.1 Neut % (Auto) 76.0 H Lymph % (Auto) 14.6 L [place] % (Auto) 7.5 Eos % (Auto) 0.8 L Baso % (Auto) 0.7 Neut # (Auto) 7.6 H Lymph # (Auto) 1.5 [place] # (Auto) 0.8 Eos # (Auto) 0.1 Baso # (Auto) 0.1 Abs Immat Gran (auto) 0.04 H Imm/Tot Granulo (auto) 0.4 Sodium 140 Potassium 3.4 L Chloride 106 Carbon Dioxide 29.7 Anion Gap 7.7 BUN 7.0 Creatinine 0.55 L Est GFR ( Amer) >60 Est GFR (Non-Af Amer) >60 BUN/Creatinine Ratio 12.7 Glucose 82 Calcium 8.1 L Total Bilirubin 0.6 AST 11 L ALT 18 Alkaline Phosphatase 62 Total Protein 5.2 L Albumin 2.9 L Globulin 2.3 Albumin/Globulin Ratio 1.3 Lipase 108.0 H
[2023-09-14 11:37] LABS: Chol HDL Ratio 2.1; Cholesterol 147 mg/dL (<=200); HDL Cholesterol 70 mg/dL (40-60); Triglycerides 66 mg/dL (<=150); VLDL CHOLESTEROL 13.2 mg/dL
[2023-09-14] MEDS: LACTATED RINGER'S SOLUTION 1,000 ML 100 ML IV ×2 (11:48→21:53)
[2023-09-14] MEDS: TRAZODONE HCL 50 MG TABLET PO (23:26)
[2023-09-15] VITALS (11 sets, daily range): BP systolic 117–123; BP diastolic 69–72; PULSE 70–88; TEMP 36.4–36.6; O2SAT 93–95
[2023-09-15] MEDS: ALBUTEROL SULFATE 2.5 MG/3 ML VIAL NEB IH (04:33)
[2023-09-15 04:38] LABS: Basophils Absolute Auto 0.1 10^3/uL (0.0-0.1); Basophils Percent Auto 0.9 % (0.2-2.0); Eosinophils Absolute Auto 0.1 10^3/uL (0.0-0.7); Eosinophils Percent Auto 2.1 % (0.9-7.0); Hematocrit 38.8 % (42.0-54.0); Hemoglobin 12.4 g/dL (14.0-18.0); Immature Granulocytes Abs Auto 0.02 10^3/uL (0.00-0.03); Immature Granulocytes Pct Auto 0.3 % (0.0-0.5); Lymphocytes Absolute Auto 1.5 10^3/uL (1.2-3.8); Lymphocytes Percent Auto 23.5 % (20.5-60.0); Mean Corpuscular Volume 90.7 fL (80.0-94.0); Mean Platelet Volume 11.9 fL (9.5-13.5); Monocytes Absolute Auto 0.7 10^3/uL (0.3-0.8); Monocytes Percent Auto 10.7 % (1.7-12.0); Neutrophils Percent Auto 62.5 % (43.0-75.0); Platelet Count 193 10^3/uL (150-450); Red Blood Count 4.28 10^6/uL (4.70-6.10); Red Cell Distribution Width 13.5 % (11.0-15.0); White Blood Count 6.3 10^3/uL (4.0-11.0)
[2023-09-15 04:56] LABS: Alanine Aminotransferase 17 U/L (16-63); Albumin Globulin Ratio 1.2; Albumin Level 3.1 g/dL (3.4-5.0); Alkaline Phosphatase 66 U/L (46-116); Anion Gap 8.8; Aspartate Amino Transferase 10 U/L (15-37); BUN Creatinine Ratio 7.1; Bilirubin Total 0.4 mg/dL (0.2-1.0); Calcium 8.5 mg/dL (8.5-10.1); Carbon Dioxide 29.6 mmol/L (21.0-32.0); Chloride 106 mmol/L (98-107); Estimated GFR (African America >60 (>=60); Estimated GFR (Non-African Ame >60 (>=60); Globulin 2.6 g/dL; Glucose 84 mg/dL (74-106); Potassium 3.4 mmol/L (3.5-5.1); Sodium 141 mmol/L (136-145); Total Protein 5.7 g/dL (6.4-8.2)
--- NOTE | 2023-09-15 07:22 | P.DS_ITS ---
DS: Providers Provider Date of admission: 09/13/23 06:44 Primary care physician: Non-Staff Physician, Admitting clinician: Shaikh Lawanda Discharging clinician: Kassandra Sheppard DS: Diagnosis Discharge Diagnosis (1) Acute pancreatitis: Qualifiers: Acute pancreatitis complication: no infection or necrosis Pancreatitis type: alcohol induced Qualified Code(s): K85.20 - Alcohol induced acute pancreatitis without necrosis or infection (2) Bronchiectasis: Qualifiers: Bronchiectasis type: uncomplicated Qualified Code(s): J47.9 - Bronchiectasis, uncomplicated (3) Depression: Qualifiers: Active/Remission status: in full remission Depression Type: major depressive disorder Major depression recurrence: recurrent Qualified Code(s): F33.42 - Major depressive disorder, recurrent, in full remission (4) Chronic respiratory failure with hypoxia: (5) TEF (tracheoesophageal fistula): (6) Malnutrition of moderate degree: DS: Summary Hospital Course Hospital Course: This is a 35-year-old male patient with a past medical history significant for remote history of TEF repair, chronic asthma, and bronchiectasis and depression; who presented to the ED complaining of acute onset of left flank pain. The patient reports previous episodes of pancreatitis associated with alcohol intake and he had drank the evening before and smoked THC prior to admission. Workup in the ED revealed unremarkable labs except for elevated amylase (466) and lipase (1525). Chest x-ray was negative for acute findings. CT with contrast was obtained and this revealed prominent fluid and fat stranding in the left upper quadrant subjacent to the diaphragm surrounding the distal pancreatic tail and a suspicious for focal pancreatitis. Patient was admitted as an inpatient to the hospitalist service for treatment of acute pancreatitis. Pain has been controlled with oral oxycodone. He is tolerating a soft/bland diet which was advanced today to low fat. He is having no nausea or vomiting. Afebrile. Lipase level is normal range and Liver functions are normal at the time of discharge. He is to continue low fat diet, and abstain from alcohol and Marijuana use which will improve his prognosis and recurrence rate of developing pancreatitis. He will be discharged home in stable condition. WBC's also normal range. He is back to his baseline oxygen status. He is encouraged to make close follow up with his pcp on Sunday. He is to return to the ER with any worsening signs or symptoms. Status at Discharge Functional status at discharge: independent ambulation Overall status at discharge: patient is progressing back to baseline Time Spent with Patient Time attestation: Total time spent providing and/or coordinating discharge services: Time spent: greater than 30 minutes Exam Narrative Exam Narrative: General: Patient is alert, and oriented to person, place and time with normal affect, proper hygiene Skin: no visible rashes, or ulcers Head: atraumatic, acephalic Eyes: PERRLA, no nystagmus present, conjunctiva clear, no scleral icterus Ears: normal gross auditory acuity Heart: Normal rate and rhythm, no murmurs/rubs/gallops Lungs: no audible wheezes, crackles and normal breath sounds all lung clifford Abdomen: Normal audible bowel sounds, no distension, No palpable masses, slight rigidity with palpation of the LUQ Musculoskeletal: no swelling bilateral lower extremities Neuro: CN II-X grossly intact Constitutional Vital Signs, click to edit/add: Last Vital Signs Temp 97.7 F 09/15/23 04:55 Pulse 77 09/15/23 06:00 Resp 18 09/15/23 04:55 BP 117/69 09/15/23 04:55 Pulse Ox 94 L 09/15/23 04:55 O2 Del Method Nasal Cannula 09/15/23 04:55 O2 Flow Rate 2 09/15/23 04:55 DS: Data Data Completed and Pending Labs on day of discharge: Labs from last 24 hours 09/15/23 09/14/23 04:12 04:01 WBC 6.3 RBC 4.28 L Hgb 12.4 L Hct 38.8 L MCV 90.7 MCH 29.0 MCHC 32.0 RDW 13.5 Plt Count 193 MPV 11.9 Neut % (Auto) 62.5 Lymph % (Auto) 23.5 [place] % (Auto) 10.7 Eos % (Auto) 2.1 Baso % (Auto) 0.9 Neut # (Auto) 4.0 Lymph # (Auto) 1.5 [place] # (Auto) 0.7 Eos # (Auto) 0.1 Baso # (Auto) 0.1 Abs Immat Gran (auto) 0.02 Imm/Tot Granulo (auto) 0.3 Sodium 141 Potassium 3.4 L Chloride 106 Carbon Dioxide 29.6 Anion Gap 8.8 BUN 5.0 L Creatinine 0.70 Est GFR ( Amer) >60 Est GFR (Non-Af Amer) >60 BUN/Creatinine Ratio 7.1 Glucose 84 Calcium 8.5 Total Bilirubin 0.4 AST 10 L ALT 17 Alkaline Phosphatase 66 Total Protein 5.7 L Albumin 3.1 L Globulin 2.6 Albumin/Globulin Ratio 1.2 Triglycerides 66 Cholesterol 147 LDL Cholesterol, Calc 64.0 VLDL Cholesterol 13.2 HDL Cholesterol 70 H Cholesterol/HDL Ratio 2.1 Lipase 36.0 Discharge Plan Discharge Disposition: Home, Self-Care Discharge Medications: New docusate sodium 100 mg Capsule 100 mg PO BID PRN (Reason: Constipation) 7 Days Qty: 14 0RF oxycodone 5 mg Tablet 5 mg PO Q12H PRN (Reason: pain 5-7) 2 Days Qty: 4 0RF Continued prednisone 10 mg tablet 50 mg PO DAILY Qty: 47 0RF Rx Instructions: 5/day for 3 days. 4/day for 3 days, 3/day for 3 days, 2/day for 3 days, 1/day for 3 days, 1/2 /day for 4 days trazodone 50 mg tablet 50 mg PO BEDTIME escitalopram oxalate 10 mg tablet 10 mg PO DAILY albuterol sulfate 2.5 mg /3 mL (0.083 %) solution for nebulization 2.5 mg inhalation Q6H PRN (Reason: shortness of breath or wheezing) Qty: 75 0RF albuterol sulfate 90 mcg/actuation HFA aerosol inhaler 2 puff INHALATION Q6H PRN (Reason: shortness of breath or wheezing) Qty: 0 0RF Activity: increase activity as tolerated Diet: low fat, low cholesterol Print Language: Vietnamese Forms: Portal Instructions Follow Up Appointments: Neetu Del Toro SundaySeptember 17 at 10am. [phone]
[2023-09-15] MEDS: LACTATED RINGER'S SOLUTION 1,000 ML 100 ML IV (07:48)
[2023-09-15] MEDS: PANTOPRAZOLE SODIUM 40 MG VIAL IV (08:39)
[2023-09-15] MEDS: ESCITALOPRAM 10 MG TABLET PO (08:39)
[2023-09-15] MEDS: OXYCODONE HCL 5 MG TABLET PO (08:39)
[2023-09-15] MEDS: ENOXAPARIN SODIUM 40 MG/0.4 ML SYRINGE SUBQ (08:39)
--- NOTE | 2023-09-17 15:31 | CM.DCFOLLOWU ---
Person spoke with: Luis How are you feeling? Still having abdominal pain How is your pain? Pain medication is helping Did you understand your discharge instructions? Yes Do you have any questions about your discharge instructions? No Were you given any prescriptions at discharge? Yes Were you able to get your prescriptions filled? Yes Do you understand how to take your medications as ordered? Yes Do you have any questions about your follow up appointment and do you plan to keep your follow up appointment? No questions it's tomorrow Is there anything else that you would like to discuss? No Questions/Comments/Concerns/Other:
== END 2023-09-15 14:13 | disposition home or self-care (01) ==
LOC: ER 06:33 → MS 09-15 07:04
PROVIDERS: Admitting Provider Internal Medicine; Emergency Provider Internal Medicine; Visit Provider Family Medicine
DX: K85.20 Alcohol induced acute pancreatitis without necrosis or infection (principal); J47.9 Bronchiectasis, uncomplicated; F33.42 Major depressive disorder, recurrent, in full remission; E44.0 Moderate protein-calorie malnutrition; J96.11 Chronic respiratory failure with hypoxia; Z68.21 Body mass index [BMI] 21.0-21.9, adult; K21.9 Gastro-esophageal reflux disease without esophagitis; J45.909 Unspecified asthma, uncomplicated; G47.34 Idiopathic sleep related nonobstructive alveolar hypoventilation; Z98.890 Other specified postprocedural states; Z99.81 Dependence on supplemental oxygen; Z87.01 Personal history of pneumonia (recurrent); Z86.16 Personal history of COVID-19; F12.10 Cannabis abuse, uncomplicated; Z90.49 Acquired absence of other specified parts of digestive tract; F17.220 Nicotine dependence, chewing tobacco, uncomplicated; Z79.899 Other long term (current) drug therapy
CPT/HCPCS: 36415; 71045; 74176; 74177; 80048; 80053; 80061; 80076; 81003; 82150; 83605; 83690; 85025; 94640; 94761; 96372; 96374; 96375; 96376; 99285; G0378; Q9967

== ENCOUNTER 2023-09-18 10:27 | Outpatient (OUT) | payer MEDICARE, MEDICAID, SELFPAY ==
[2023-09-18 10:51] LABS: Basophils Absolute Auto 0.1 10^3/uL (0.0-0.1); Basophils Percent Auto 1.5 % (0.2-2.0); Eosinophils Absolute Auto 0.2 10^3/uL (0.0-0.7); Eosinophils Percent Auto 2.7 % (0.9-7.0); Hematocrit 46.3 % (42.0-54.0); Hemoglobin 14.8 g/dL (14.0-18.0); Immature Granulocytes Abs Auto 0.01 10^3/uL (0.00-0.03); Immature Granulocytes Pct Auto 0.1 % (0.0-0.5); Lymphocytes Absolute Auto 1.8 10^3/uL (1.2-3.8); Mean Corpuscular Hemoglobin 27.9 pg (25.9-34.0); Mean Corpuscular Volume 87.4 fL (80.0-94.0); Mean Platelet Volume 11.8 fL (9.5-13.5); Monocytes Absolute Auto 0.7 10^3/uL (0.3-0.8); Monocytes Percent Auto 10.4 % (1.7-12.0); Neutrophils Absolute Auto 4.3 10^3/uL (1.4-6.5); Neutrophils Percent Auto 60.3 % (43.0-75.0); Platelet Count 223 10^3/uL (150-450); Red Cell Distribution Width 13.3 % (11.0-15.0); White Blood Count 7.1 10^3/uL (4.0-11.0)
[2023-09-18 11:24] LABS: Alanine Aminotransferase 22 U/L (16-63); Albumin Level 3.5 g/dL (3.4-5.0); Alkaline Phosphatase 88 U/L (46-116); Amylase 52 U/L (25-115); Anion Gap 13.8; Aspartate Amino Transferase 17 U/L (15-37); BUN Creatinine Ratio 15.5; Bilirubin Total 0.6 mg/dL (0.2-1.0); Calcium 8.8 mg/dL (8.5-10.1); Carbon Dioxide 27.1 mmol/L (21.0-32.0); Chloride 105 mmol/L (98-107); Estimated GFR (African America >60 (>=60); Estimated GFR (Non-African Ame >60 (>=60); Globulin 3.4 g/dL; Glucose 93 mg/dL (74-106); Potassium 3.9 mmol/L (3.5-5.1); Sodium 142 mmol/L (136-145); Total Protein 6.9 g/dL (6.4-8.2)
== END 2023-09-18 10:28 | disposition home or self-care (01) ==
LOC: LAB 10:28
PROVIDERS: PCP Nurse Practitioner Family; Visit Provider Nurse Practitioner Family
DX: K85.90 Acute pancreatitis without necrosis or infection, unspecified (principal)
CPT/HCPCS: 36415; 80053; 82150; 83690; 85025

== ENCOUNTER 2023-10-15 19:54 | Outpatient (OUT) | payer MEDICARE, MEDICAID, SELFPAY | END 2023-10-15 19:55 | disposition home or self-care (01) | LOC: SLEEP 19:55 | PROVIDERS: PCP Internal Medicine Cardiovascular Disease; Visit Provider Internal Medicine Cardiovascular Disease | DX: G47.33 Obstructive sleep apnea (adult) (pediatric) (principal) ==

== ENCOUNTER 2023-12-29 14:12 | Emergency (ER) | payer MEDICARE, MEDICAID, SELFPAY ==
[2023-12-29] VITALS (13 sets, daily range): BP systolic 108–113; BP diastolic 74–75; PULSE 75–80; TEMP 36.6; O2SAT 92–100; BMI 21.1
--- NOTE | 2023-12-29 14:29 | XR_ITS ---
The [address] [address] Patient Name: FRANCIS GALVEZ MRN: [id number] date: 1990 Sex: M Assigned Patient Location: ER Current Patient Location: ER Accession/Order Number: [id number] Exam Date: 12/29/2023 15:20 Report Date: 12/29/2023 15:47 At the request of: MARK NIETO Procedure: XR chest 1V EXAMINATION: XR chest 1V HISTORY: Shortness of breath COMPARISON: XR chest 09/13/2023, 05/23/2023 FINDINGS: LUNGS: Hyperexpanded lungs with prominent right perihilar opacity/airspace disease. VASCULATURE: No increased pulmonary vasculature. PLEURA: Blunting of left lateral costophrenic angle. No pneumothorax. CARDIAC: No cardiomegaly or cardiac silhouette abnormality. MEDIASTINUM: No visible mass or adenopathy. BONES: No fracture or visible bone lesion. OTHER: Negative. XR/XR chest 1V IMPRESSION: 1. No appreciable acute abnormality. Hyper expanded lungs suggestive COPD. 2. Chronic right perihilar opacity/airspace disease; not appreciably changed since at least 05/23/2023. 3. Chronic blunting of left lateral costophrenic angle likely due to hyperexpansion of lungs. A chronic pleural effusion cannot be excluded. Electronically authenticated by: GUS BANERJEE Date: 12/29/2023 15:47
[2023-12-29] MEDS: IPRATROPIUM/ALBUTEROL SULFATE 3 ML AMPUL.NEB IH (14:43)
--- NOTE | 2023-12-29 14:58 | ED.SOB1 ---
HPI - SOB/Dyspnea General Chief Complaint: Shortness of Breath/Dyspnea Stated Complaint: SOB Time Seen by Provider: 12/29/23 14:25 Source: patient Mode of arrival: walk-in History of Present Illness HPI Narrative: 33-year-old male presents for difficulty breathing. He has had this for few days he has been coughing up some yellow to green-colored phlegm. He does not feel that he has COVID. He has not had a fever or hemoptysis. He has a history of bronchiectasis and used his inhaler at home. Related Data Home Medications ?Medication ?Instructions ?Recorded ?Confirmed escitalopram oxalate 10 mg tablet 10 mg PO DAILY 09/13/23 09/13/23 trazodone 50 mg tablet 50 mg PO BEDTIME 09/13/23 09/13/23 Previous Rx's ?Medication ?Instructions ?Recorded albuterol sulfate 2.5 mg/3 mL 2.5 mg (3 mL) inhalation Q6H PRN 05/25/23 (0.083 %) solution for nebulization shortness of breath or wheezing #75 mL albuterol sulfate 90 mcg/actuation 2 puff inhalation Q6H PRN 05/25/23 aerosol inhaler shortness of breath or wheezing #0 grams prednisone 10 mg tablet 50 mg (5 x 10 mg) PO DAILY #47 tabs 08/29/23 docusate sodium 100 mg capsule 100 mg PO BID PRN Constipation 7 09/15/23 days #14 caps oxycodone 5 mg tablet 5 mg PO Q12H PRN pain 5-7 2 days 09/15/23 #4 tabs Allergies Allergy/AdvReac Type Severity Reaction Status Date / Time Penicillins Allergy Intermediate Verified 09/13/23 03:00 Review of Systems ROS Narrative A ten point review of systems is negative except as noted above. [facility] Medical History (Updated 12/29/23 @ 16:37 by Bib Chang MD) Malnutrition of moderate degree ?E44.0 - Moderate protein-calorie malnutrition (ICD-10) Depression ?F32.A - Depression, unspecified (ICD-10) Bronchiectasis ?J47.9 - Bronchiectasis, uncomplicated (ICD-10) Chronic respiratory failure with hypoxia ?J96.11 - Chronic respiratory failure with hypoxia (ICD-10) Upper respiratory infection ?J06.9 - Acute upper respiratory infection, unspecified (ICD-10) Acute hypokalemia ?E87.6 - Hypokalemia (ICD-10) Avulsion of skin ?T14.8XXA - Other injury of unspecified body region, initial encounter (ICD-10) Influenza ?J11.1 - Influenza due to unidentified influenza virus with other respiratory manifestations (ICD-10) Marijuana abuse ?F12.10 - Cannabis abuse, uncomplicated (ICD-10) Acute hypoxic respiratory failure ?J96.01 - Acute respiratory failure with hypoxia (ICD-10) Coronavirus infection ?B34.2 - Coronavirus infection, unspecified (ICD-10) Pneumonia ?J18.9 - Pneumonia, unspecified organism (ICD-10) Hospital-acquired bacterial pneumonia ?J15.9 - Unspecified bacterial pneumonia (ICD-10) Bronchiectasis with acute lower respiratory infection ?J47.0 - Bronchiectasis with acute lower respiratory infection (ICD-10) Leukocytosis ?D72.829 - Elevated white blood cell count, unspecified (ICD-10) COVID-19 ?U07.1 - COVID-19 (ICD-10) GERD (gastroesophageal reflux disease) ?K21.9 - Gastro-esophageal reflux disease without esophagitis (ICD-10) 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34 - 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) History of gastrostomy tube placement 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 (ICD-10) Pneumonia ?J18.9 - Pneumonia, unspecified organism (ICD-10) Abdominal pain ?R10.9 - Unspecified abdominal pain (ICD-10) Abdominal pain, acute ?R10.9 - Unspecified abdominal pain (ICD-10) Surgical History History of fundoplication ?Z98.890 - Other specified postprocedural states (ICD-10) History of appendectomy ?Z90.49 - Acquired absence of other specified parts of digestive tract (ICD-10) H/O chest tube placement ?Z98.890 - Other specified postprocedural states (ICD-10) History of facial surgery ?Z98.890 - Other specified postprocedural states (ICD-10) Family History Mother Family history of diabetes mellitus Family history of hypertension Grandmother Family history of diabetes mellitus Grandfather Family history of myocardial infarction Social History Within the past year, how often did you have a drink containing alcohol: 2-4 times a month Within the past year, how many standard drinks containing alcohol did you have on a typical day: 1 or 2 Within the past year, how often did you have six or more drinks on one occasion: weekly Total score: 3 Score interpretation: A score of 4 or more indicates drinking is likely to affect patient's safety. 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 Known occupational exposures/hazards: No Highest level of school completed/degree received: Associate degree: occupational, technical, vocational program Are you now , , , , never or living with a partner: In a typical week, how many times do you talk on the telephone with family, friends, or neighbors: 3 or more times per week How often do you get together with friends or relatives: once per week How often do you attend synagogue or anabaptism services: never Do you belong to any clubs or organizations such as synagogue groups unions, fraternal or athletic groups, or school groups: no Total score: 1 Score interpretation: A score of less than or equal to 1 indicates the most socially isolated. Little interest or pleasure in doing things: not at all Feeling down, depressed, or hopeless: not at all Feel stressed/tense/nervous/anxious/difficulty sleeping: not at all Do you think of yourself as: straight/heterosexual Gender Identity: male Exam Narrative Exam Narrative: Nurses note and vital signs reviewed and patient is not hypoxic. General: The patient appears well and in no apparent distress. Patient is resting comfortably on cart. He is speaking in full sentences. Skin: Warm, dry, no pallor noted. There is no rash noted. Head: Normocephalic, atraumatic Eye: Normal conjunctiva, no drainage Ears, Nose, Mouth, and Throat: oral mucosa is moist. Nares patent. Cardiovascular: Regular Rate and Rhythm Respiratory: Patient is in no distress, no accessory muscle use, lungs show a few rhonchi with good air movement Back: non-tender GI: Soft and nontender Musculoskeletal: The patient has no evidence of calf tenderness, no pitting edema, symmetrical pulses noted bilaterally Neurological: A&O, normal speech Psychiatric: Cooperative Constitutional Vital Signs, click to edit/add: Last Vital Signs Temp 97.9 F 12/29/23 14:20 Pulse 75 12/29/23 14:44 Resp 18 12/29/23 14:20 BP 108/74 12/29/23 15:33 Pulse Ox 94 L 12/29/23 15:50 O2 Del Method Room Air 12/29/23 14:44 Course Vital Signs Vital signs: Vital Signs Temperature 97.9 F 12/29/23 14:20 Pulse Rate 80 12/29/23 14:20 Respiratory Rate 18 12/29/23 14:20 Blood Pressure 113/75 12/29/23 14:20 Pulse Oximetry 93 L 12/29/23 14:20 Oxygen Delivery Method Room Air 12/29/23 14:20 Temperature 97.9 F 12/29/23 14:20 Pulse Rate 75 12/29/23 14:44 Respiratory Rate 18 12/29/23 14:20 Blood Pressure 108/74 12/29/23 15:33 Pulse Oximetry 94 L 12/29/23 15:50 Oxygen Delivery Method Room Air 12/29/23 14:44 MDM - SOB/Dyspnea MDM Narrative Medical decision making narrative: The patient was given IV Solu-Medrol and aerosol treatment and he now feels much better. He states that in retrospect he believes he had a panic attack. We discussed admission to the hospital and he does not feel that he needs it at all. Treatment diagnosis and follow-up were discussed with the patient. Differential Diagnosis Differential diagnosis: Likely acute exacerbation of chronic obstructive airways disease and community acquired pneumonia Lab Data Attestation: I reviewed the patient's lab results. Labs: Lab Results 12/29/23 Range/Units 15:26 WBC 7.7 (4.0-11.0) 10^3/uL RBC 5.48 (4.70-6.10) 10^6/uL Hgb 16.2 (14.0-18.0) g/dL Hct 47.7 (42.0-54.0) % MCV 87.0 (80.0-94.0) fL MCH 29.6 (25.9-34.0) pg MCHC 34.0 (29.9-35.2) g/dL RDW 12.9 (11.0-15.0) % Plt Count 267 (150-450) 10^3/uL MPV 11.7 (9.5-13.5) fL Neut % (Auto) 60.6 (43.0-75.0) % Lymph % (Auto) 25.3 (20.5-60.0) % [place] % (Auto) 9.6 (1.7-12.0) % Eos % (Auto) 2.7 (0.9-7.0) % Baso % (Auto) 1.7 (0.2-2.0) % Neut # (Auto) 4.7 (1.4-6.5) 10^3/uL Lymph # (Auto) 1.9 (1.2-3.8) 10^3/uL [place] # (Auto) 0.7 (0.3-0.8) 10^3/uL Eos # (Auto) 0.2 (0.0-0.7) 10^3/uL Baso # (Auto) 0.1 (0.0-0.1) 10^3/uL Abs Immat Gran (auto) 0.01 (0.00-0.03) 10^3/uL Imm/Tot Granulo (auto) 0.1 (0.0-0.5) % Sodium 140 (136-145) mmol/L Potassium 3.6 (3.5-5.1) mmol/L Chloride 102 (98-107) mmol/L Carbon Dioxide 28.8 (21.0-32.0) mmol/L Anion Gap 12.8 BUN 8.0 (7.0-18.0) mg/dL Creatinine 0.82 (0.70-1.30) mg/dL Est GFR ( Amer) >60 (>=60) Est GFR (Non-Af Amer) >60 (>=60) BUN/Creatinine Ratio 9.8 Glucose 89 (74-106) mg/dL Calcium 8.9 (8.5-10.1) mg/dL Imaging Data Chest x-ray: Radiologist's impression: ITS Impressions Chest X-Ray 12/29/23 14:29 IMPRESSION: 1. No appreciable acute abnormality. Hyper expanded lungs suggestive COPD. 2. Chronic right perihilar opacity/airspace disease; not appreciably changed since at least 05/23/2023. 3. Chronic blunting of left lateral costophrenic angle likely due to hyperexpansion of lungs. A chronic pleural effusion cannot be excluded. Electronically authenticated by: GUS BANERJEE Date: 12/29/2023 15:47 Critical Care Time Critical Care Time Critical Care Time: Yes Total Critical Care Time: 35 Attestation: Due to the high probability of sudden and clinically significant deterioration in the patient's condition he/she required the highest level of my preparedness to intervene urgently I provided critical care time including documentation time, medication orders and management, reevaluation, vital sign assessment, ordering and reviewing of lab tests, ordering and reviewing of x-ray studies, and admission orders. Aggregate critical care time is 35 minutes including only time during which I was engaged in work directly related to his/her care and did not include time spent treating other patients simultaneously. Discharge Plan Discharge Stand Alone Forms: Portal Instructions Chief Complaint: Shortness of Breath/Dyspnea Clinical Impression: Bronchiectasis with acute exacerbation Patient Disposition: Home, Self-Care Time of Disposition Decision: 16:37 Condition: Good Mode of Transportation: Private Vehicle Prescriptions / Home Meds: No Action prednisone 10 mg tablet 50 mg PO DAILY Qty: 47 0RF Rx Instructions: 5/day for 3 days. 4/day for 3 days, 3/day for 3 days, 2/day for 3 days, 1/day for 3 days, 1/2 /day for 4 days trazodone 50 mg tablet 50 mg PO BEDTIME escitalopram oxalate 10 mg tablet 10 mg PO DAILY docusate sodium 100 mg Capsule 100 mg PO BID PRN (Reason: Constipation) 7 Days Qty: 14 0RF oxycodone 5 mg Tablet 5 mg PO Q12H PRN (Reason: pain 5-7) 2 Days Qty: 4 0RF albuterol sulfate 2.5 mg /3 mL (0.083 %) solution for nebulization 2.5 mg inhalation Q6H PRN (Reason: shortness of breath or wheezing) Qty: 75 0RF albuterol sulfate 90 mcg/actuation HFA aerosol inhaler 2 puff INHALATION Q6H PRN (Reason: shortness of breath or wheezing) Qty: 0 0RF Print Language: Taiwanese Instructions: Bronchiectasis (ED) Referrals: Katelynn Qureshi MD [Primary Care Provider] - 1 week
[2023-12-29] MEDS: METHYLPREDNISOLONE SOD SUCC PF 125 MG/2 ML VIAL IVP (15:30)
[2023-12-29 15:47] LABS: Basophils Absolute Auto 0.1 10^3/uL (0.0-0.1); Basophils Percent Auto 1.7 % (0.2-2.0); Eosinophils Absolute Auto 0.2 10^3/uL (0.0-0.7); Eosinophils Percent Auto 2.7 % (0.9-7.0); Hematocrit 47.7 % (42.0-54.0); Hemoglobin 16.2 g/dL (14.0-18.0); Immature Granulocytes Abs Auto 0.01 10^3/uL (0.00-0.03); Immature Granulocytes Pct Auto 0.1 % (0.0-0.5); Lymphocytes Absolute Auto 1.9 10^3/uL (1.2-3.8); Lymphocytes Percent Auto 25.3 % (20.5-60.0); Mean Corpuscular Hemoglobin 29.6 pg (25.9-34.0); Mean Platelet Volume 11.7 fL (9.5-13.5); Monocytes Absolute Auto 0.7 10^3/uL (0.3-0.8); Monocytes Percent Auto 9.6 % (1.7-12.0); Neutrophils Absolute Auto 4.7 10^3/uL (1.4-6.5); Neutrophils Percent Auto 60.6 % (43.0-75.0); Platelet Count 267 10^3/uL (150-450); Red Blood Count 5.48 10^6/uL (4.70-6.10); Red Cell Distribution Width 12.9 % (11.0-15.0); White Blood Count 7.7 10^3/uL (4.0-11.0)
[2023-12-29 16:23] LABS: Anion Gap 12.8; BUN Creatinine Ratio 9.8; Calcium 8.9 mg/dL (8.5-10.1); Carbon Dioxide 28.8 mmol/L (21.0-32.0); Chloride 102 mmol/L (98-107); Estimated GFR (African America >60 (>=60); Estimated GFR (Non-African Ame >60 (>=60); Glucose 89 mg/dL (74-106); Potassium 3.6 mmol/L (3.5-5.1); Sodium 140 mmol/L (136-145)
== END 2023-12-29 16:41 | disposition home or self-care (01) ==
PROVIDERS: Emergency Provider Emergency Medicine; PCP Internal Medicine Cardiovascular Disease
DX: J47.1 Bronchiectasis with (acute) exacerbation (principal); F17.220 Nicotine dependence, chewing tobacco, uncomplicated
CPT/HCPCS: 36415; 71045; 80048; 85025; 94640; 96374; 99285; J2919

== ENCOUNTER 2024-01-09 11:16 | Inpatient (IN) | payer MEDICARE, MEDICAID, SELFPAY ==
[2024-01-09] VITALS (11 sets, daily range): BP systolic 94–118; BP diastolic 54–80; PULSE 82–113; TEMP 36.6–36.8; O2SAT 90–99; BMI 21.4; BMI 21.0
--- NOTE | 2024-01-09 11:32 | XR_ITS ---
The [place] [id number] Patient Name: FRANCIS GALVEZ MRN: [id number] date: 1990 Sex: M Assigned Patient Location: ED.MAIN Current Patient Location: ER Accession/Order Number: [id number] Exam Date: 01/09/2024 11:53 Report Date: 01/09/2024 12:12 At the request of: PEREZ BAUTISTA Procedure: XR chest 2V EXAM: XR chest 2V HISTORY: sob COMPARISON: 05/22/[address] 05/23/2023. TECHNIQUE: 2 views chest FINDINGS: Lungs are hyperinflated with background of emphysema. There is chronic large area of right middle lobe consolidation with bronchiectasis, also affecting the right upper lobe and infrahilar right lower lobe. Left perihilar consolidation with bronchiectasis involving left upper lobe, lingula, and left lower lobe also unchanged. There is a small left effusion. Scarring at the lung apices. No pneumothorax. Pulmonary vasculature is normal. Heart size within normal limits. XR/XR chest 2V IMPRESSION: 1. Chronic multilobar pneumonia. Large right middle lobe consolidation with bronchiectasis, with lesser involvement of the right upper lobe and right lower lobe. Also left perihilar consolidation involving left upper lobe, lingula, and left lower lobe. Findings are chronic and also seen on CT 05/23/2023. There is no new site of lung consolidation. Recommend clinical and radiographic follow-up. 2. Small left effusion. Electronically authenticated by: CAROLINA VYAS Date: 01/09/2024 12:12
--- NOTE | 2024-01-09 11:32 | ECG_ITS ---
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
[2024-01-09] MEDS: IPRATROPIUM/ALBUTEROL SULFATE 3 ML AMPUL.NEB IH ×3 (11:43→22:14)
[2024-01-09] MEDS: KETOROLAC TROMETHAMINE 30 MG/ML VIAL 15 MG IVP (11:47)
[2024-01-09] MEDS: DEXAMETHASONE SOD PHOS 10 MG/ML VIAL IV (11:48)
[2024-01-09 11:53] LABS: Basophils Absolute Auto 0.2 10^3/uL (0.0-0.1); Basophils Percent Auto 1.7 % (0.2-2.0); Eosinophils Absolute Auto 0.3 10^3/uL (0.0-0.7); Eosinophils Percent Auto 3.6 % (0.9-7.0); Hematocrit 49.6 % (42.0-54.0); Hemoglobin 16.4 g/dL (14.0-18.0); Immature Granulocytes Abs Auto 0.04 10^3/uL (0.00-0.03); Immature Granulocytes Pct Auto 0.4 % (0.0-0.5); Lymphocytes Absolute Auto 1.8 10^3/uL (1.2-3.8); Lymphocytes Percent Auto 20.4 % (20.5-60.0); Mean Corpuscular HGB Conc 33.1 g/dL (29.9-35.2); Mean Corpuscular Hemoglobin 29.3 pg (25.9-34.0); Mean Corpuscular Volume 88.6 fL (80.0-94.0); Mean Platelet Volume 10.9 fL (9.5-13.5); Monocytes Absolute Auto 0.9 10^3/uL (0.3-0.8); Neutrophils Absolute Auto 5.7 10^3/uL (1.4-6.5); Neutrophils Percent Auto 63.9 % (43.0-75.0); Platelet Count 298 10^3/uL (150-450); Red Cell Distribution Width 12.8 % (11.0-15.0); White Blood Count 8.9 10^3/uL (4.0-11.0)
--- NOTE | 2024-01-09 11:55 | ED_ITS ---
HPI - SOB/Dyspnea General Chief Complaint: Shortness of Breath/Dyspnea Stated Complaint: SHORTNESS OF BREATH/CHEST PAIN Time Seen by Provider: 01/09/24 11:21 Source: patient Mode of arrival: walk-in Limitations: no limitations History of Present Illness HPI Narrative: Patient presents ED complaint of shortness of breath. He has a history of Bronchiectasis And states that he has difficulty breathing sometimes. He says he felt like he may be coming down with An infection or something because he is felt short of breath the past couple of days. He also reports some chest pain and pressure and tightness. He does use his albuterol at home and he has Been on 3 L of oxygen at home. He is usually only on it at night but has had to start using it during the day to for the past couple of days. He reports coughi ng up some yellow sputum. He denies fevers. He is alert and oriented no acute distress at this time. He reports his saturation was 89% last night but when today he woke up today it was 92%. Related Data Home Medications ?Medication ?Instructions ?Recorded ?Confirmed trazodone 50 mg tablet 50 mg PO BEDTIME 09/13/23 01/09/24 Previous Rx's ?Medication ?Instructions ?Recorded albuterol sulfate 2.5 mg/3 mL 2.5 mg (3 mL) inhalation Q6H PRN 05/25/23 (0.083 %) solution for nebulization shortness of breath or wheezing #75 mL albuterol sulfate 90 mcg/actuation 2 puff inhalation Q6H PRN 05/25/23 aerosol inhaler shortness of breath or wheezing #0 grams Allergies Allergy/AdvReac Type Severity Reaction Status Date / Time Penicillins Allergy Intermediate Verified 09/13/23 03:00 Review of Systems ROS Status of ROS 10 or more systems reviewed and unremark able except as noted in history and below [facility] Medical History (Updated 01/09/24 @ 13:07 by Aneta Sánchez DO) Malnutrition of moderate degree ?E44.0 - Moderate protein-calorie malnutrition (ICD-10) Depression ?F32.A - Depression, unspecified (ICD-10) Bronchiectasis ?J47.9 - Bronchiectasis, uncomplicated (ICD-10) Chronic respiratory failure with hypoxia ?J96.11 - Chronic respiratory failure with hypoxia (ICD-10) Upper respiratory infection ?J06.9 - Acute upper respiratory infection, unspecified (ICD-10) Acute hypokalemia ?E87.6 - Hypokalemia (ICD-10) Avulsion of skin ?T14.8XXA - Other injury of unspecified body region, initial encounter (ICD- 10) Influenza ?J11.1 - Influenza due to unidentified influenza virus with other respiratory manifestations (ICD-10) Marijuana abuse ?F12.10 - Cannabis abuse, uncomplicated (ICD-10) Acute hypoxic respiratory failure ?J96.01 - Acute respiratory failure with hypoxia (ICD-10) Coronavirus infection ?B34.2 - Coronavirus infection, unspecified (ICD-10) Pneumonia ?J18.9 - Pneumonia, unspecified organism (ICD-10) Hospital-acquired bacterial pneumonia ?J15.9 - Unspecified bacterial pneumonia (ICD-10) Bronchiectasis with acute lower respiratory infection ?J47.0 - Bronchiectasis with acute lower respiratory infection (ICD-10) Leukocytosis ?D72.829 - Elevated white blood cell count, unspecified (ICD-10) COVID-19 ?U07.1 - COVID-19 (ICD-10) GERD (gastroesophageal reflux disease) ?K21.9 - Gastro-esophageal reflux disease without esophagitis (ICD-10) 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34 - 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) History of gastrostomy tube placement 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 (ICD-10) Pneumonia ?J18.9 - Pneumonia, unspecified organism (ICD-10) Abdominal pain ?R10.9 - Unspecified abdominal pain (ICD-10) Abdominal pain, acute ?R10.9 - Unspecified abdominal pain (ICD-10) Surgical History History of fundoplication ?Z98.890 - Other specified postprocedural states (ICD-10) History of appendectomy ?Z90.49 - Acquired absence of other specified parts of digestive tract (ICD- 10) H/O chest tube placement ?Z98.890 - Other specified postprocedural states (ICD-10) History of facial surgery ?Z98.890 - Other specified postprocedural states (ICD-10) Family History Mother Family history of diabetes mellitus Family history of hypertension Grandmother Family history of diabetes mellitus Grandfather Family history of myocardial infarction Social History Within the past year, how often did you have a drink containing alcohol: 2-4 times a month Within the past year, how many standard drinks containing alcohol did you have on a typical day: 1 or 2 Within the past year, how often did you have six or more drinks on one occasion: weekly Total score: 3 Score interpretation: A score of 4 or more indicates drinking is likely to affect patient's safety. 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 or athletic groups, or school groups: no Total score: 1 Score interpretation: A score of less than or equal to 1 indicates the most socially isolated. Little interest or pleasure in doing things: not at all Feeling down, depressed, or hopeless: not at all Feel stressed/tense/nervous/anxious/difficulty sleeping: not at all Do you think of yourself as: straight/heterosexual Gender Identity: male Exam Narrative Exam Narrative: Time Seen: [] Vital Signs: [Per nurse's notes.] General: [Alert] Skin: [Warm, dry, no rash.] Head: [Normocephalic, atraumatic.] Neck: [Supple, trachea midline.] Eye: [Pupils are equal, round and reactive to light, extraocular movements are intact, normal conjunctiva.] Ears, nose, mouth and throat: oral mucosa moist. Cardiovascular: [Regular rate and rhythm, no murmur.] Respiratory: Inspiratory expiratory wheezing bilateral lungs respirations are non-labored, breath sounds are equal.] Chest wall: [No tenderness, no deformity.] Gastrointestinal: [Soft, nontender, non distended, normal bowel sounds.] MSK: 5 out of 5 muscle strength x 4 extremities no calf pain or edema Lymphatics: [No lymphadenopathy.] Psychiatric: [Cooperative, appropriate mood & affect.] Neurological: [Alert and oriented to person, place, time, and situation, no focal neurological deficit observed.] Constitutional Vital Signs, click to edit/add: Last Vital Signs Pulse 87 01/09/24 11:19 Resp 20 01/09/24 11:19 BP 109/80 01/09/24 11:19 Pulse Ox 99 01/09/24 11:44 O2 Del Method Room Air 01/09/24 11:44 Course Vital Signs Vital signs: Vital Signs Pulse Rate 87 01/09/24 11:19 Respiratory Rate 20 01/09/24 11:19 Blood Pressure 109/80 01/09/24 11:19 Pulse Oximetry 93 L 01/09/24 11:19 Oxygen Delivery Method Room Air 01/09/24 11:19 Pulse Rate 87 01/09/24 11:19 Respiratory Rate 20 01/09/24 11:19 Blood Pressure 109/80 01/09/24 11:19 Pulse Oximetry 99 01/09/24 11:44 Oxygen Delivery Method Room Air 01/09/24 11:44 MDM - SOB/Dyspnea MDM Narrative Medical decision making narrative: Patient was found to have Left andMultilobar pneumonia which is chronic for him however he feels more short of breath today. He is requiring his oxygen more instead of only at night. He reports that he is 89% at home, on arrival he was 91%. He is doing better on his oxygen right now and is at 98%. This is after steroids and DuoNeb. Patient will be started on IV antibiotics, continue steroids and breathing treatments. 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 Patient was given morphine for his chest pain. I spoke to Dr. Elkins who knows the patient and is agreeable with care plan for adm ission to [facility] telemetry. Patient stable in ED. Differential Diagnosis Differential diagnosis: Likely acute exacerbation of chronic obstructive airways disease, community acquired pneumonia, asthma with exacerbation and other (COVID flu) Medical Records Attestation: I reviewed the patient's medical records. Lab Data Attestation: I reviewed the patient's lab results. Labs: Lab Results 01/09/24 01/09/24 Range/Units 11:30 11:40 WBC 8.9 (4.0-11.0) 10^3/uL RBC 5.60 (4.70-6.10) 10^6/uL Hgb 16.4 (14.0-18.0) g/dL Hct 49.6 (42.0-54.0) % MCV 88.6 (80.0-94.0) fL MCH 29.3 (25.9-34.0) pg MCHC 33.1 (29.9-35.2) g/dL RDW 12.8 (11.0-15.0) % Plt Count 298 (150-450) 10^3/uL MPV 10.9 (9.5-13.5) fL Neut % (Auto) 63.9 (43.0-75.0) % Lymph % (Auto) 20.4 L (20.5-60.0) % [place] % (Auto) 10.0 (1.7-12.0) % Eos % (Auto) 3.6 (0.9-7.0) % Baso % (Auto) 1.7 (0.2-2.0) % Neut # (Auto) 5.7 (1.4-6.5) 10^3/uL Lymph # (Auto) 1.8 (1.2-3.8) 10^3/uL [place] # (Auto) 0.9 H (0.3-0.8) 10^3/uL Eos # (Auto) 0.3 (0.0-0.7) 10^3/uL Baso # (Auto) 0.2 H (0.0-0.1) 10^3/uL Abs Immat Gran (auto) 0.04 H (0.00-0.03) 10^3/uL Imm/Tot Granulo (auto) 0.4 (0.0-0.5) % Sodium 135 L (136-145) mmol/L Potassium 4.0 (3.5-5.1) mmol/L Chloride 100 (98-107) mmol/L Carbon Dioxide 29.8 (21.0-32.0) mmol/L Anion Gap 9.2 BUN 11.0 (7.0-18.0) mg/dL Creatinine 0.76 (0.70-1.30) mg/dL Est GFR ( Amer) >60 (>=60) Est GFR (Non-Af Amer) >60 (>=60) BUN/Creatinine Ratio 14.5 Glucose 94 (74-106) mg/dL Calcium 8.7 (8.5-10.1) mg/dL Total Bilirubin 0.5 (0.2-1.0) mg/dL AST 13 L (15-37) U/L ALT 21 (16-63) U/L Alkaline Phosphatase 97 (46-116) U/L Troponin I High Sens <4.0 L (4.0-76.1) pg/mL Total Protein 7.2 (6.4-8.2) g/dL Albumin 3.7 (3.4-5.0) g/dL Globulin 3.5 g/dL Albumin/Globulin Ratio 1.1 Influenza Type A Ag Negative Influenza Type B Ag Negative SARS-CoV-2 Ag (CV2AG) Negative (NEGATIVE) Imaging Data Chest x-ray: Radiologist's impression: ITS Impressions Chest X-Ray 01/09/24 11:32 IMPRESSION: 1. Chronic multilobar pneumonia. Large right middle lobe consolidation with bronchiectasis, with lesser involvement of the right upper lobe and right lower lobe. Also left perihilar consolidation involving left upper lobe, lingula, and left lower lobe. Findings are chronic and also seen on CT 05/23/2023. There is no new site of lung consolidation. Recommend clinical and radiographic follow-up. 2. Small left effusion. Electronically authenticated by: CAROLINA VYAS Date: 01/09/2024 12:12 ECG Data Attestation: I personally reviewed and interpreted this ECG as follows: Interpretation: EKG INTERPRETATION Time: []1132 Rate: []83 Rhythm: _ []Normal sinus rhythm ST segments: _ []No acute ST elevation or depression T waves: _ [] Ectopy: _ [] P wave/OH interval: _ [] QRS interval: _ [] QT interval: _ [] Comparison: _ [] Comparison EKG date: [] Performed by: [self] Discharge Plan Discharge Chief Complaint: Shortness of Breath/Dyspnea Clinical Impression: Pneumonia Patient Disposition: Admitted As Inpatient Time of Disposition Decision: 13:07 Condition: Fair Prescriptions / Home Meds: No Action trazodone 50 mg tablet 50 mg PO BEDTIME albuterol sulfate 2.5 mg /3 mL (0.083 %) solution for nebulization 2.5 mg inhalation Q6H PRN (Reason: shortness of breath or wheezing) Qty: 75 0RF albuterol sulfate 90 mcg/actuation HFA aerosol inhaler 2 puff INHALATION Q6H PRN (Reason: shortness of breath or wheezing) Qty: 0 0RF Print Language: Mohawk Referrals: REBEKAH BARBOZA [Primary Care Provider] - 1 week
[2024-01-09 12:09] LABS: Alanine Aminotransferase 21 U/L (16-63); Albumin Globulin Ratio 1.1; Albumin Level 3.7 g/dL (3.4-5.0); Alkaline Phosphatase 97 U/L (46-116); Anion Gap 9.2; Aspartate Amino Transferase 13 U/L (15-37); BUN Creatinine Ratio 14.5; Bilirubin Total 0.5 mg/dL (0.2-1.0); Calcium 8.7 mg/dL (8.5-10.1); Carbon Dioxide 29.8 mmol/L (21.0-32.0); Chloride 100 mmol/L (98-107); Estimated GFR (African America >60 (>=60); Estimated GFR (Non-African Ame >60 (>=60); Globulin 3.5 g/dL; Glucose 94 mg/dL (74-106); Sodium 135 mmol/L (136-145); Total Protein 7.2 g/dL (6.4-8.2); Troponin I High Sensitivity <4.0 pg/mL (4.0-76.1)
[2024-01-09 12:59] LABS: Influenza Virus A Antigen Negative; Influenza Virus B Antigen Negative; Internal Control Within Normal Limits
[2024-01-09 13:01] LABS: Internal Control Within Normal Limits; SARS-CoV-2 Ag NEGATIVE (NEGATIVE)
[2024-01-09] MEDS: LEVOFLOXACIN IN DEXTROSE 5 % 750 MG/150 ML PREMIX 100 MG IV (13:14)
[2024-01-09] MEDS: MORPHINE SULFATE 4 MG/ML VIAL IV (13:14)
[2024-01-09 15:43] LABS: Lactate/Lactic Acid 1.1 mmol/L (0.4-2.0)
--- NOTE | 2024-01-09 16:31 | RESP.RT ---
Titrated down to 1.5L
--- NOTE | 2024-01-09 16:31 | RESP.RT ---
Titrated down to 1.5L
[2024-01-09] MEDS: ACETAMINOPHEN 500 MG TABLET 1000 MG PO (16:41)
--- NOTE | 2024-01-09 17:36 | P.HP_ITS ---
HPI H&P: HPI History of Present Illness Chief complaint: SHORTNESS OF BREATH/CHEST PAIN\PNEMONIA\ HYPOXIA Narrative: Patient presented to the emergency room with increasing shortness of breath and chest pain. Chest pain in ER was reproducible. Chest x-ray suggested pneumonia. Patient admitted for workup and treatment of same When I saw patient up on the medical surgical floor, he was resting comfortably in bed. Somewhat uncomfortable when he does move around in the bed. Does have some mild cough throughout the evaluation. Opioid HPI Opioid Management Most Recent Pain and Opioid Data: Last Pain Scale 7 01/09/24 18:05 Last Pain Assessment 01/09/24 18:05 Last MAR Pain Assessment 01/09/24 17:59 Last ORT Total Score 11 01/09/24 14:30 Last ORT Risk Category High Risk 01/09/24 14:30 Review of Systems ROS Status of ROS 10 or more systems reviewed and unremark able except as noted in history and below [facility] Medical History (Updated 01/09/24 @ 13:07 by Aneta Sánchez DO) Malnutrition of moderate degree ?E44.0 - Moderate protein-calorie malnutrition (ICD-10) Depression ?F32.A - Depression, unspecified (ICD-10) Bronchiectasis ?J47.9 - Bronchiectasis, uncomplicated (ICD-10) Chronic respiratory failure with hypoxia ?J96.11 - Chronic respiratory failure with hypoxia (ICD-10) Upper respiratory infection ?J06.9 - Acute upper respiratory infection, unspecified (ICD-10) Acute hypokalemia ?E87.6 - Hypokalemia (ICD-10) Avulsion of skin ?T14.8XXA - Other injury of unspecified body region, initial encounter (ICD- 10) Influenza ?J11.1 - Influenza due to unidentified influenza virus with other respiratory manifestations (ICD-10) Marijuana abuse ?F12.10 - Cannabis abuse, uncomplicated (ICD-10) Acute hypoxic respiratory failure ?J96.01 - Acute respiratory failure with hypoxia (ICD-10) Coronavirus infection ?B34.2 - Coronavirus infection, unspecified (ICD-10) Pneumonia ?J18.9 - Pneumonia, unspecified organism (ICD-10) Hospital-acquired bacterial pneumonia ?J15.9 - Unspecified bacterial pneumonia (ICD-10) Bronchiectasis with acute lower respiratory infection ?J47.0 - Bronchiectasis with acute lower respiratory infection (ICD-10) Leukocytosis ?D72.829 - Elevated white blood cell count, unspecified (ICD-10) COVID-19 ?U07.1 - COVID-19 (ICD-10) GERD (gastroesophageal reflux disease) ?K21.9 - Gastro-esophageal reflux disease without esophagitis (ICD-10) 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34 - 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) History of gastrostomy tube placement 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 (ICD-10) Pneumonia ?J18.9 - Pneumonia, unspecified organism (ICD-10) Abdominal pain ?R10.9 - Unspecified abdominal pain (ICD-10) Abdominal pain, acute ?R10.9 - Unspecified abdominal pain (ICD-10) Surgical History History of fundoplication ?Z98.890 - Other specified postprocedural states (ICD-10) History of appendectomy ?Z90.49 - Acquired absence of other specified parts of digestive tract (ICD- 10) H/O chest tube placement ?Z98.890 - Other specified postprocedural states (ICD-10) History of facial surgery ?Z98.890 - Other specified postprocedural states (ICD-10) Family History Mother Family history of diabetes mellitus Family history of hypertension Grandmother Family history of diabetes mellitus Grandfather Family history of myocardial infarction Social History (Updated 01/09/24 @ 15:01 by Parris Rowland) Within the past year, how often did you have a drink containing alcohol: 2-4 times a month Within the past year, how many standard drinks containing alcohol did you have on a typical day: 1 or 2 Within the past year, how often did you have six or more drinks on one occasion: weekly Total score: 3 Score interpretation: A score of 4 or more indicates drinking is likely to affect patient's safety. 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 Known occupational exposures/hazards: No Highest level of school completed/degree received: high school graduate Are you now , , , , never or living with a partner: In a typical week, how many times do you talk on the telephone with family, friends, or neighbors: 3 or more times per week How often do you get together with friends or relatives: once per week How often do you attend taoist or mosque services: never Do you belong to any clubs or organizations such as taoist groups unions, [email or web address] or athletic groups, or school groups: no Total score: 1 Score interpretation: A score of less than or equal to 1 indicates the most socially isolated. Little interest or pleasure in doing things: not at all Feeling down, depressed, or hopeless: not at all Feel stressed/tense/nervous/anxious/difficulty sleeping: not at all Do you think of yourself as: straight/heterosexual Gender Identity: male Meds Home Medications and Allergies Home Medications ?Medication ?Instructions ?Recorded ?Confirmed ?Type albuterol sulfate 2.5 mg/3 mL 2.5 mg (3 mL) inhalation Q6H PRN 05/25/23 01/09/24 Rx (0.083 %) solution for nebulization shortness of breath or wheezing #75 mL albuterol sulfate 90 mcg/actuation 2 puff inhalation Q6H PRN 05/25/23 01/09/24 Rx aerosol inhaler shortness of breath or wheezing #0 grams trazodone 50 mg tablet 50 mg PO BEDTIME 09/13/23 01/09/24 History escitalopram oxalate 10 mg tablet 10 mg PO .qd 01/09/24 01/09/24 History pantoprazole 40 mg tablet,delayed 40 mg PO .qd 01/09/24 01/09/24 History release Allergies Allergy/AdvReac Type Severity Reaction Status Date / Time Penicillins Allergy Intermediate Verified 09/13/23 03:00 Exam Constitutional Vital Signs, click to edit/add: Last Vital Signs Temp 98.1 F 01/09/24 15:52 Pulse 85 01/09/24 16:24 Resp 16 01/09/24 16:24 BP 110/68 01/09/24 15:52 Pulse Ox 96 01/09/24 16:24 O2 Del Method Nasal Cannula 01/09/24 16:24 O2 Flow Rate 2.5 01/09/24 16:24 Documenting provider has reviewed patient's vital signs: yes Common normals: apparent distress (Mild discomfort secondary to chest pain with motion) Chest Common normals: inspection of chest normal and palpation of chest normal Respiratory Common normals: normal respiratory effort and no retractions Cardio Common normals: regular rate and regular rhythm GI Common normals: Normal to inspection, nondistended, normoactive bowel sounds present Results Labs Labs: Short CBC 01/09/24 Range/Units 11:30 WBC 8.9 (4.0-11.0) 10^3/uL Hgb 16.4 (14.0-18.0) g/dL Hct 49.6 (42.0-54.0) % Plt Count 298 (150-450) 10^3/uL BMP 01/09/24 11:30 Sodium 135 L Potassium 4.0 Chloride 100 Carbon Dioxide 29.8 BUN 11.0 Creatinine 0.76 Glucose 94 Calcium 8.7 Liver Function 01/09/24 Range/Units 11:30 Total Bilirubin 0.5 (0.2-1.0) mg/dL AST 13 L (15-37) U/L ALT 21 (16-63) U/L Alkaline Phosphatase 97 (46-116) U/L Albumin 3.7 (3.4-5.0) g/dL Assessment and Plan Assessment and Plan (1) Pneumonia: (2) Bronchiectasis with acute exacerbation: Plan Admission findings: Acute hypoxia, chest wall pain, acute exacerbation of chronic bronchiectasis secondary to right middle lobe pneumonia-admit for workup and treatment of same Acute exacerbation of bronchiectasis secondary to right middle lobe pneumonia-IV antibiotics, aerosol treatments, steroids. Chest wall pain-reproducible on exam-Toradol Hyponatremia-monitor daily GERD-Home medications Generalized anxiety disorder-Home medications Admission status: Patient with acute exacerbation of bronchiectasis with pneumonia. Unlikely to improve significantly in the first day. Change patient to inpatient status secondary to medically necessary treatment spanning more than 2 midnights
[2024-01-09] MEDS: METHYLPREDNISOLONE SOD SUCC PF 125 MG/2 ML VIAL IVP ×2 (18:04→23:03)
[2024-01-09] MEDS: KETOROLAC TROMETHAMINE 30 MG/ML VIAL IVP (19:52)
[2024-01-09] MEDS: TRAZODONE HCL 50 MG TABLET PO (23:03)
[2024-01-10] VITALS (12 sets, daily range): BP systolic 110–120; BP diastolic 61–73; PULSE 80–110; TEMP 36.2–36.8; O2SAT 87–98
[2024-01-10] MEDS: KETOROLAC TROMETHAMINE 30 MG/ML VIAL IVP ×3 (03:12→13:16)
[2024-01-10] MEDS: IPRATROPIUM/ALBUTEROL SULFATE 3 ML AMPUL.NEB IH ×4 (05:01→23:14)
[2024-01-10] MEDS: METHYLPREDNISOLONE SOD SUCC PF 125 MG/2 ML VIAL IVP ×4 (05:40→23:04)
[2024-01-10] MEDS: OMEPRAZOLE 40 MG CAPSULE.DR PO (05:40)
[2024-01-10 07:13] LABS: Basophils Percent Auto 0.2 % (0.2-2.0); Hematocrit 47.6 % (42.0-54.0); Hemoglobin 15.8 g/dL (14.0-18.0); Immature Granulocytes Abs Auto 0.09 10^3/uL (0.00-0.03); Immature Granulocytes Pct Auto 0.6 % (0.0-0.5); Lymphocytes Absolute Auto 0.9 10^3/uL (1.2-3.8); Lymphocytes Percent Auto 5.9 % (20.5-60.0); Mean Corpuscular HGB Conc 33.2 g/dL (29.9-35.2); Mean Corpuscular Hemoglobin 29.4 pg (25.9-34.0); Mean Corpuscular Volume 88.6 fL (80.0-94.0); Mean Platelet Volume 11.4 fL (9.5-13.5); Monocytes Absolute Auto 0.1 10^3/uL (0.3-0.8); Monocytes Percent Auto 0.9 % (1.7-12.0); Neutrophils Absolute Auto 13.7 10^3/uL (1.4-6.5); Neutrophils Percent Auto 92.4 % (43.0-75.0); Platelet Count 303 10^3/uL (150-450); Red Blood Count 5.37 10^6/uL (4.70-6.10); Red Cell Distribution Width 12.6 % (11.0-15.0); White Blood Count 14.8 10^3/uL (4.0-11.0)
[2024-01-10 07:46] LABS: Alanine Aminotransferase 20 U/L (16-63); Albumin Globulin Ratio 1.1; Albumin Level 3.5 g/dL (3.4-5.0); Alkaline Phosphatase 96 U/L (46-116); Anion Gap 13.9; Aspartate Amino Transferase 12 U/L (15-37); BUN Creatinine Ratio 17.3; Bilirubin Total 0.4 mg/dL (0.2-1.0); Calcium 9.1 mg/dL (8.5-10.1); Carbon Dioxide 25.4 mmol/L (21.0-32.0); Chloride 101 mmol/L (98-107); Estimated GFR (African America >60 (>=60); Estimated GFR (Non-African Ame >60 (>=60); Globulin 3.2 g/dL; Glucose 198 mg/dL (74-106); Potassium 4.3 mmol/L (3.5-5.1); Sodium 136 mmol/L (136-145); Total Protein 6.7 g/dL (6.4-8.2)
[2024-01-10] MEDS: LEVOFLOXACIN IN DEXTROSE 5 % 750 MG/150 ML PREMIX 100 MG IV (08:35)
[2024-01-10] MEDS: ESCITALOPRAM 10 MG TABLET PO (08:35)
--- NOTE | 2024-01-10 09:11 | CT_ITS ---
[address] [address] Patient Name: FRANCIS GALVEZ MRN: [id number] date: 1990 Sex: M Assigned Patient Location: Current Patient Location: Accession/Order Number: [id number] Exam Date: 01/10/2024 20:59 Report Date: 01/10/2024 22:48 At the request of: MARYANNE MCCAIN Procedure: CT angio chest CT angio chest 01/10/2024 7:59 PM CDT: History: hypoxia, chest pain, infiltrate Chest pain. Possible pulmonary embolism. Comparison: None. Technique: IV Contrast enhanced CTA imaging of the chest. Sagittal and coronal MIP reformatted images are provided. This CT exam was performed using one or more of the following dose reduction techniques: Automated exposure control, adjustment of the mA and/or KV according to patient size, or use of iterative reconstruction technique. Findings: The central airway is midline and patent. There is strandy infiltrates in the right perihilar lung. There is consolidation in the right midlung. There is bronchiectasis in the lower lobes bilaterally peribronchial thickening. There is a left lower lobe pulmonary nodule measuring 15 mm in diameter. A right hilar mass measures 19 mm in diameter. There are bubbly secretions in the esophagus. There is a small hiatal hernia. The heart size is normal. The pulmonary arteries are patent and normal in caliber. There is no pulmonary embolism. The thoracic aorta is patent and normal in caliber. CT/CT angio chest Impression: 1. 15 mm left lower lobe pulmonary nodule. Recommend correlation with PET/CT imaging and/or cutaneous biopsy. 2. Right hilar masslike lesion may reflect an enlarged right hilar lymph node. 3. Bilateral lower lobe and right middle lobe consolidation and bronchiectasis is presumably post infectious. 4. Small hiatal hernia with fluid distention of the thoracic esophagus. 5. No pulmonary embolism. Electronically authenticated by: FABIENNE REYES Date: 01/10/2024 22:48
--- NOTE | 2024-01-10 09:14 | P.PN_ITS ---
Progress Note: Subjective Subjective Interval history: Patient still with significant labored breathing. His chest pressure/pain is improved. This was reproducible pain yesterday. Currently still requiring supplemental oxygen. He only wears supplemental oxygen at home at at bedtime. Not during the day. He did have a low O2 sat this morning of 87% on 2 L. Exam Constitutional Vital Signs, click to edit/add: Last Vital Signs Temp 97.7 F 01/10/24 07:42 Pulse 101 H 01/10/24 07:42 Resp 20 01/10/24 07:42 BP 120/73 01/10/24 07:42 Pulse Ox 93 L 01/10/24 07:42 O2 Del Method Nasal Cannula 01/10/24 07:42 O2 Flow Rate 3 01/10/24 07:42 Documenting provider has reviewed patient's vital signs: yes Common normals: apparent distress (Mild discomfort secondary to chest pain with motion) Chest Common normals: inspection of chest normal and palpation of chest normal Respiratory Common normals: normal respiratory effort and no retractions Auscultation: rhonchi (Diffuse with egophony right sided.) Cardio Common normals: regular rate and regular rhythm GI Common normals: Normal to inspection, nondistended, normoactive bowel sounds present Progress Note: Objective Labs Labs: Short CBC 01/09/24 01/10/24 Range/Units 11:30 06:32 WBC 8.9 14.8 H (4.0-11.0) 10^3/uL Hgb 16.4 15.8 (14.0-18.0) g/dL Hct 49.6 47.6 (42.0-54.0) % Plt Count 298 303 (150-450) 10^3/uL BMP 01/09/24 01/10/24 11:30 06:32 Sodium 135 L 136 Potassium 4.0 4.3 Chloride 100 101 Carbon Dioxide 29.8 25.4 BUN 11.0 17.0 Creatinine 0.76 0.98 Glucose 94 198 H Calcium 8.7 9.1 Liver Function 01/09/24 01/10/24 Range/Units 11:30 06:32 Total Bilirubin 0.5 0.4 (0.2-1.0) mg/dL AST 13 L 12 L (15-37) U/L ALT 21 20 (16-63) U/L Alkaline Phosphatase 97 96 (46-116) U/L Albumin 3.7 3.5 (3.4-5.0) g/dL Progress Note: A&P Assessment and Plan (1) Pneumonia: (2) Bronchiectasis with acute exacerbation: Plan Admission findings: Acute hypoxia, chest wall pain, acute exacerbation of chronic bronchiectasis secondary to right middle lobe pneumonia-admit for workup and treatment of same Acute exacerbation of bronchiectasis secondary to right middle lobe pneumonia- with hypoxia progressed worse this morning. Again 87% on 2 L. Checking CTA of chest. Try patient on IPV treatments which have been effective in the past. Chest wall pain-reproducible on exam-Toradol improved symptoms Hyponatremia-monitor daily Hyperglycemia-possibly steroid-induced. Monitor daily. GERD-Home medications Generalized anxiety disorder-Home medications Admission status: Patient with acute exacerbation of bronchiectasis with pneumonia. Unlikely to improve significantly in the first day. Maintain inpatient status. Not improved and actually worse this morning with an increase in his oxygen deficit. 87% on 2 L. Does not wear oxygen during the day at home. CTA pending, likely here 2 additional days ?
--- NOTE | 2024-01-10 09:23 | CM.NOTE ---
Rounds made with Dr. Elkins, pt requiring oxygen around the clock d/t hypoxia. Pt verbalizes he wears oxygen only at night. Pt verbaizes increased tightness to R side of chest and increased work of breathing. Continue IV antibiotics and breathing tx.
--- NOTE | 2024-01-10 10:58 | SWNOTE1 ---
SW met with pt to discuss dc needs. Pt is independent at home. He does have a 9 year old son who stays with him at times. Has good support from family and friends. Pt does wear 3 liters of oxygen at night time only. He voiced he has not been feeling well the last few days and has been wearing it through out the day. At this time pt has no anticipated discharge needs. SW to follow as needed.
--- NOTE | 2024-01-10 12:10 | SWNOTE1 ---
Important Message from [employer] reviewed and discussed with patient. Pt. verbalized understanding and signed the form. Original given to patient and copy placed in patient?s chart.
[2024-01-10] MEDS: TRAZODONE HCL 50 MG TABLET PO (23:04)
--- NOTE | 2024-01-10 23:36 | RESP.RT ---
Increased to 3 lpm for Hs
--- NOTE | 2024-01-10 23:37 | RESP.RT ---
Increased to 3 lpm for Hs
--- NOTE | 2024-01-10 23:38 | RESP.RT ---
Increased to 3 lpm for HS
[2024-01-11] VITALS (11 sets, daily range): BP systolic 117–121; BP diastolic 66–76; PULSE 88–112; TEMP 36.6–36.9; O2SAT 90–96
[2024-01-11] MEDS: IPRATROPIUM/ALBUTEROL SULFATE 3 ML AMPUL.NEB IH ×4 (04:48→23:11)
[2024-01-11] MEDS: METHYLPREDNISOLONE SOD SUCC PF 125 MG/2 ML VIAL IVP (05:51)
[2024-01-11] MEDS: OMEPRAZOLE 40 MG CAPSULE.DR PO (05:51)
[2024-01-11 06:21] LABS: Basophils Percent Auto 0.1 % (0.2-2.0); Eosinophils Percent Auto 0.1 % (0.9-7.0); Hematocrit 45.1 % (42.0-54.0); Hemoglobin 14.9 g/dL (14.0-18.0); Immature Granulocytes Abs Auto 0.13 10^3/uL (0.00-0.03); Immature Granulocytes Pct Auto 0.6 % (0.0-0.5); Lymphocytes Absolute Auto 0.7 10^3/uL (1.2-3.8); Lymphocytes Percent Auto 3.1 % (20.5-60.0); Mean Corpuscular Hemoglobin 29.2 pg (25.9-34.0); Mean Corpuscular Volume 88.4 fL (80.0-94.0); Mean Platelet Volume 11.6 fL (9.5-13.5); Monocytes Absolute Auto 0.4 10^3/uL (0.3-0.8); Monocytes Percent Auto 1.7 % (1.7-12.0); Neutrophils Absolute Auto 20.9 10^3/uL (1.4-6.5); Neutrophils Percent Auto 94.4 % (43.0-75.0); Platelet Count 317 10^3/uL (150-450); Red Cell Distribution Width 12.9 % (11.0-15.0); White Blood Count 22.1 10^3/uL (4.0-11.0)
[2024-01-11 06:45] LABS: Alanine Aminotransferase 19 U/L (16-63); Albumin Level 3.4 g/dL (3.4-5.0); Alkaline Phosphatase 88 U/L (46-116); Aspartate Amino Transferase 10 U/L (15-37); BUN Creatinine Ratio 23.2; Bilirubin Total 0.2 mg/dL (0.2-1.0); Calcium 8.9 mg/dL (8.5-10.1); Carbon Dioxide 29.5 mmol/L (21.0-32.0); Chloride 100 mmol/L (98-107); Estimated GFR (African America >60 (>=60); Estimated GFR (Non-African Ame >60 (>=60); Globulin 3.4 g/dL; Glucose 162 mg/dL (74-106); Potassium 4.5 mmol/L (3.5-5.1); Sodium 135 mmol/L (136-145); Total Protein 6.8 g/dL (6.4-8.2)
--- NOTE | 2024-01-11 08:48 | CM.NOTE ---
Rounds made with Dr. Elkins, pt verbalizes feeling worse today and increased dypnea. Start IPV today and continue tx. No discharge today. Dr. Elkins also discussed changing antibiotics.
--- NOTE | 2024-01-11 09:01 | P.PN_ITS ---
Progress Note: Subjective Subjective Interval history: Patient was moving around better yesterday. But this morning woke up and having significant shortness of breath. Chest pain is still improved. Just the shortness of breath. Exam Constitutional Vital Signs, click to edit/add: Last Vital Signs Temp 97.9 F 01/11/24 07:34 Pulse 109 H 01/11/24 07:34 Resp 20 01/11/24 07:34 BP 120/73 01/11/24 07:34 Pulse Ox 91 L 01/11/24 07:34 O2 Del Method Nasal Cannula 01/11/24 07:34 O2 Flow Rate 3 01/11/24 07:34 Documenting provider has reviewed patient's vital signs: yes Common normals: apparent distress (Mild respiratory distress) Chest Common normals: inspection of chest normal Respiratory Common normals: abnormal respiratory effort (Mild respiratory distress) Effort & inspection: tachypneic Auscultation: rhonchi, wheezes and egophony (Right lobe) Cardio Common normals: regular rate and regular rhythm Progress Note: Objective Labs Labs: Short CBC 01/11/24 Range/Units 05:52 WBC 22.1 H (4.0-11.0) 10^3/uL Hgb 14.9 (14.0-18.0) g/dL Hct 45.1 (42.0-54.0) % Plt Count 317 (150-450) 10^3/uL BMP 01/11/24 05:52 Sodium 135 L Potassium 4.5 Chloride 100 Carbon Dioxide 29.5 BUN 23.0 H Creatinine 0.99 Glucose 162 H Calcium 8.9 Liver Function 01/11/24 Range/Units 05:52 Total Bilirubin 0.2 (0.2-1.0) mg/dL AST 10 L (15-37) U/L ALT 19 (16-63) U/L Alkaline Phosphatase 88 (46-116) U/L Albumin 3.4 (3.4-5.0) g/dL Progress Note: A&P Assessment and Plan (1) Pneumonia: (2) Bronchiectasis with acute exacerbation: (3) Chest wall pain: (4) Hyponatremia: (5) Steroid-induced hyperglycemia: Plan Admission findings: Acute hypoxia, chest wall pain, acute exacerbation of chronic bronchiectasis secondary to right middle lobe pneumonia-admit for workup and treatment of same Acute exacerbation of bronchiectasis secondary to right middle lobe pneumonia- still with persistent hypoxia. On 3 L at only 91%. He does not normally need daytime supplemental oxygen. Try IPV treatments today, change IV antibiotics. White blood cell count higher today Chest wall pain-reproducible on exam-Toradol improved symptoms-resolved even off Toradol Hyponatremia-monitor daily Hyperglycemia-possibly steroid-induced. Monitor daily. GERD-Home medications Generalized anxiety disorder-Home medications Admission status: Patient with acute exacerbation of bronchiectasis with pneumonia. Unlikely to improve significantly in the first day. Maintain inpatient status. Not improved and actually worse this morning with an increase in his oxygen deficit. 87% on 2 L. Does not wear oxygen during the day at home. CTA without pulmonary embolism. Lack of improvement today he will likely need 2 additional days of IV therapy. Adjusting antibiotics today. Medically necessary treatment spanning more than 2 midnights inpatient status ?
[2024-01-11] MEDS: ESCITALOPRAM 10 MG TABLET PO (09:17)
[2024-01-11] MEDS: AZITHROMYCIN 500 MG in 0.9 % SODIUM CHLORIDE 250 ML 250 MG IV (09:38)
[2024-01-11] MEDS: 0.9 % SODIUM CHLORIDE 250 ML 10 ML IV (09:48)
[2024-01-11] MEDS: SODIUM CHLORIDE 0.9% INHALATION 3 ML NEB IH ×2 (11:22→16:58)
[2024-01-11] MEDS: CEFTAZIDIME 1,000 MG in 0.9 % SODIUM CHLORIDE 50 ML 100 MG IV ×2 (11:42→20:14)
[2024-01-11] MEDS: METHYLPREDNISOLONE SOD SUCC PF 125 MG/2 ML VIAL 60 MG IVP ×3 (11:42→23:08)
[2024-01-11] MEDS: SODIUM CHLORIDE 0.9% INHALATION 3 ML NEB 6 ML IH ×2 (17:12→23:11)
[2024-01-11] MEDS: BENZONATATE 100 MG CAPSULE 200 MG PO (20:15)
[2024-01-11] MEDS: ACETAMINOPHEN 500 MG TABLET 1000 MG PO (20:25)
[2024-01-11] MEDS: TRAZODONE HCL 50 MG TABLET PO (23:09)
[2024-01-12] VITALS (11 sets, daily range): BP systolic 110–126; BP diastolic 56–82; PULSE 79–106; TEMP 36.4–37.2; O2SAT 87–96
[2024-01-12] MEDS: IPRATROPIUM/ALBUTEROL SULFATE 3 ML AMPUL.NEB IH ×4 (05:16→23:06)
[2024-01-12] MEDS: CEFTAZIDIME 1,000 MG in 0.9 % SODIUM CHLORIDE 50 ML 100 MG IV ×3 (05:56→20:07)
[2024-01-12] MEDS: METHYLPREDNISOLONE SOD SUCC PF 125 MG/2 ML VIAL 60 MG IVP ×3 (06:00→18:04)
[2024-01-12] MEDS: OMEPRAZOLE 40 MG CAPSULE.DR PO (06:02)
[2024-01-12 07:00] LABS: Basophils Percent Auto 0.1 % (0.2-2.0); Eosinophils Percent Auto 0.1 % (0.9-7.0); Hematocrit 42.7 % (42.0-54.0); Hemoglobin 14.1 g/dL (14.0-18.0); Immature Granulocytes Abs Auto 0.16 10^3/uL (0.00-0.03); Immature Granulocytes Pct Auto 0.9 % (0.0-0.5); Lymphocytes Absolute Auto 0.7 10^3/uL (1.2-3.8); Lymphocytes Percent Auto 3.7 % (20.5-60.0); Mean Corpuscular Hemoglobin 29.4 pg (25.9-34.0); Mean Platelet Volume 11.4 fL (9.5-13.5); Monocytes Absolute Auto 0.5 10^3/uL (0.3-0.8); Monocytes Percent Auto 2.8 % (1.7-12.0); Neutrophils Absolute Auto 16.7 10^3/uL (1.4-6.5); Neutrophils Percent Auto 92.4 % (43.0-75.0); Platelet Count 295 10^3/uL (150-450)
[2024-01-12 07:42] LABS: Alanine Aminotransferase 25 U/L (16-63); Albumin Globulin Ratio 1.1; Albumin Level 3.1 g/dL (3.4-5.0); Alkaline Phosphatase 79 U/L (46-116); Anion Gap 9.3; Aspartate Amino Transferase 15 U/L (15-37); BUN Creatinine Ratio 21.5; Bilirubin Total 0.2 mg/dL (0.2-1.0); Calcium 8.4 mg/dL (8.5-10.1); Carbon Dioxide 28.8 mmol/L (21.0-32.0); Chloride 105 mmol/L (98-107); Estimated GFR (African America >60 (>=60); Estimated GFR (Non-African Ame >60 (>=60); Globulin 2.8 g/dL; Glucose 156 mg/dL (74-106); Potassium 4.1 mmol/L (3.5-5.1); Sodium 139 mmol/L (136-145); Total Protein 5.9 g/dL (6.4-8.2)
[2024-01-12] MEDS: ESCITALOPRAM 10 MG TABLET PO (08:55)
[2024-01-12] MEDS: 0.9 % SODIUM CHLORIDE 250 ML 10 ML IV (08:55)
[2024-01-12] MEDS: AZITHROMYCIN 500 MG in 0.9 % SODIUM CHLORIDE 250 ML 250 MG IV (08:56)
[2024-01-12] MEDS: SODIUM CHLORIDE 0.9% INHALATION 3 ML NEB 6 ML IH ×3 (11:22→23:06)
--- NOTE | 2024-01-12 11:29 | XR_ITS ---
The [address] [address] Patient Name: FRANCIS GALVEZ MRN: [id number] date: 1990 Sex: M Assigned Patient Location: Current Patient Location: Accession/Order Number: [id number] Exam Date: 01/12/2024 12:00 Report Date: 01/12/2024 12:59 At the request of: SHAIKH SEGUN Procedure: XR chest 1V PROCEDURE: XR chest 1V DATE: 01/12/2024 11:00 AM CDT COMPARISONS: Chest CT from 01/10/2024. Chest x-ray from 01/09/2024 CLINICAL INDICATION: 33 years Male sob FINDINGS: The heart size is normal. The heart is shifted slightly toward the right. There is heterogeneous airspace disease of the medial mid and upper right lung and left infrahilar region similar to previous chest radiographs and similar to CT done 2 days prior. There appears to be chronic lung changes as defined on CT done 2 days prior. There is possible subtle nodularity overlying the right suprahilar region involving a 1.5 cm area but this CT does not show evidence of a nodule in this area. This is probably some localized infiltrate or atelectasis. There is a nodule of the left lower lung field that was described on recent of 01/10/2024. Please follow the recommendation on that CT report. There is no evidence of pleural effusion or pneumothorax. XR/XR chest 1V IMPRESSION: Significant lung parenchymal changes as discussed above, similar to CT from 01/10/2024. Electronically authenticated by: NONI SPIVEY Date: 01/12/2024 12:59
[2024-01-12] MEDS: GUAIFENESIN 600 MG TAB.ER.12H PO (12:35)
[2024-01-12] MEDS: VANCOMYCIN HCL 1,000 MG in 0.9 % SODIUM CHLORIDE 250 ML 250 MG IV (14:21)
--- NOTE | 2024-01-12 15:35 | P.IMPN_ITS ---
Progress Note: A&P Assessment and Plan (1) Pneumonia: Assessment and Plan: Bilateral infiltrates and with prior history of structural lung disease/recurrent antibiotic and steroid use for his respiratory illness, he is at high risk of hospital-acquired pneumonia. He is currently on azithromycin and ceftazidime. I will add vancomycin to cover MRSA. C/w azithromycin and ceftazidime. . Qualifiers: Pneumonia type: due to unspecified organism Laterality: bilateral Lung location: lower lobe of lung Qualified Code(s): J18.9 - Pneumonia, unspecified organism (2) Acute and chronic respiratory failure with hypoxia: Assessment and Plan: Use 2 L O2 as needed. Now requiring it constantly. Due to underlying PNA. Wean off O2 as tolerated. (3) Bronchiectasis with acute exacerbation: Assessment and Plan: C/w systemic steroids, duonebs, OPEP, saline nebs. Added mucinex. (4) Chest wall pain: Assessment and Plan: Improved. Due to underlying PNA. (5) Steroid-induced hyperglycemia: Assessment and Plan: Sliding scale insulin as needed. 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 (7) GERD (gastroesophageal reflux disease): Assessment and Plan: c/w PPI Qualifiers: Esophagitis presence: esophagitis presence not specified Qualified Code(s): K21.9 - Gastro-esophageal reflux disease without esophagitis (8) Malnutrition of moderate degree: Assessment and Plan: Poor nutritional status due to chronic disease burden, low BMI. Weight is stable likely because of repeated steroid use. Will add ensure. Internal Medicine - PN: Subj Subjective Interval history: Seen and examined. Patient reports that his chest pain and shortness of breath has improved but he feels chest tightness and shortness of breath on exertion. He was hypoxic on ambulation while on oxygen that did not improve until he sat down and rested. Exam Constitutional Vital Signs, click to edit/add: Last Vital Signs Temp 97.8 F 01/12/24 15:22 Pulse 98 H 01/12/24 15:22 Resp 16 01/12/24 15:22 BP 121/74 01/12/24 15:22 Pulse Ox 93 L 01/12/24 15:22 O2 Del Method Room Air 01/12/24 15:22 O2 Flow Rate 2 01/12/24 11:24 Documenting provider has reviewed patient's vital signs: yes Common normals: no apparent distress General appearance: cooperative, comfortable and ill appearing HENNY Common normals: normocephalic and head/scalp atraumatic Respiratory Other: Coarse breath sounds, expiratory wheezing. Mild shortness of breath noted when patient was conversing. No use of accessory muscles of respiration. No respiratory distress noted. Cardio Common normals: no JVD, regular rate, regular rhythm, S1 normal heart sound and S2 normal heart sound GI Common normals: Normal to inspection, nondistended, normoactive bowel sounds present Extremity Common normals: normal to inspection and full ROM Neuro Common normals: oriented x3, moves all extremities and no focal motor deficits Psych Common normals: mental status grossly normal, thought process normal, denies homicidal ideation and denies suicidal ideation Internal Medicine - PN: Obj Da Labs Labs: Laboratory Results - last 24 hr 01/12/24 06:30 WBC 18.0 H RBC 4.80 Hgb 14.1 Hct 42.7 MCV 89.0 MCH 29.4 MCHC 33.0 RDW 13.0 Plt Count 295 MPV 11.4 Neut % (Auto) 92.4 H Lymph % (Auto) 3.7 L Daniels % (Auto) 2.8 Eos % (Auto) 0.1 L Baso % (Auto) 0.1 L Neut # (Auto) 16.7 H Lymph # (Auto) 0.7 L Daniels # (Auto) 0.5 Eos # (Auto) 0.0 Baso # (Auto) 0.0 Abs Immat Gran (auto) 0.16 H Imm/Tot Granulo (auto) 0.9 H Sodium 139 Potassium 4.1 Chloride 105 Carbon Dioxide 28.8 Anion Gap 9.3 BUN 17.0 Creatinine 0.79 Est GFR ( Amer) >60 Est GFR (Non-Af Amer) >60 BUN/Creatinine Ratio 21.5 Glucose 156 H Calcium 8.4 L Total Bilirubin 0.2 AST 15 ALT 25 Alkaline Phosphatase 79 Total Protein 5.9 L Albumin 3.1 L Globulin 2.8 Albumin/Globulin Ratio 1.1
[2024-01-12] MEDS: BENZONATATE 100 MG CAPSULE 200 MG PO (21:25)
[2024-01-12] MEDS: TRAZODONE HCL 50 MG TABLET PO (21:25)
[2024-01-12] MEDS: VANCOMYCIN HCL 1,000 MG in 0.9 % SODIUM CHLORIDE 250 ML 200 MG IV (21:25)
[2024-01-13] VITALS: BP 113/65; PULSE 87; TEMP 36.5; O2SAT 90
[2024-01-13] MEDS: METHYLPREDNISOLONE SOD SUCC PF 125 MG/2 ML VIAL 60 MG IVP ×3 (01:12→12:09)
[2024-01-13] MEDS: GUAIFENESIN 600 MG TAB.ER.12H PO ×2 (01:13→12:41)
[2024-01-13] MEDS: CEFTAZIDIME 1,000 MG in 0.9 % SODIUM CHLORIDE 50 ML 100 MG IV ×2 (03:55→11:29)
[2024-01-13 04:00] VITALS: BP 107/59; TEMP 36.7; O2SAT 94
[2024-01-13 05:09] VITALS: PULSE 84; O2SAT 93
[2024-01-13] MEDS: IPRATROPIUM/ALBUTEROL SULFATE 3 ML AMPUL.NEB IH ×2 (05:09→11:38)
[2024-01-13] MEDS: VANCOMYCIN HCL 1,000 MG in 0.9 % SODIUM CHLORIDE 250 ML 200 MG IV (06:10)
[2024-01-13] MEDS: OMEPRAZOLE 40 MG CAPSULE.DR PO (06:12)
[2024-01-13 08:12] LABS: Basophils Percent Auto 0.2 % (0.2-2.0); Hematocrit 45.4 % (42.0-54.0); Immature Granulocytes Abs Auto 0.11 10^3/uL (0.00-0.03); Immature Granulocytes Pct Auto 0.7 % (0.0-0.5); Lymphocytes Absolute Auto 0.5 10^3/uL (1.2-3.8); Lymphocytes Percent Auto 3.2 % (20.5-60.0); Mean Corpuscular Hemoglobin 29.3 pg (25.9-34.0); Mean Corpuscular Volume 88.7 fL (80.0-94.0); Mean Platelet Volume 11.6 fL (9.5-13.5); Monocytes Absolute Auto 0.3 10^3/uL (0.3-0.8); Monocytes Percent Auto 1.9 % (1.7-12.0); Neutrophils Absolute Auto 15.5 10^3/uL (1.4-6.5); Platelet Count 306 10^3/uL (150-450); Red Blood Count 5.12 10^6/uL (4.70-6.10); Red Cell Distribution Width 12.9 % (11.0-15.0); White Blood Count 16.4 10^3/uL (4.0-11.0)
[2024-01-13 08:33] LABS: Alanine Aminotransferase 40 U/L (16-63); Albumin Globulin Ratio 1.1; Albumin Level 3.3 g/dL (3.4-5.0); Alkaline Phosphatase 83 U/L (46-116); Aspartate Amino Transferase 17 U/L (15-37); BUN Creatinine Ratio 21.8; Bilirubin Total 0.4 mg/dL (0.2-1.0); Calcium 8.8 mg/dL (8.5-10.1); Carbon Dioxide 25.7 mmol/L (21.0-32.0); Chloride 104 mmol/L (98-107); Estimated GFR (African America >60 (>=60); Estimated GFR (Non-African Ame >60 (>=60); Glucose 145 mg/dL (74-106); Potassium 3.7 mmol/L (3.5-5.1); Sodium 139 mmol/L (136-145); Total Protein 6.3 g/dL (6.4-8.2)
[2024-01-13 08:37] VITALS: BP 124/72; PULSE 103; TEMP 36.6; O2SAT 94
[2024-01-13] MEDS: ESCITALOPRAM 10 MG TABLET PO (09:37)
[2024-01-13] MEDS: AZITHROMYCIN 500 MG in 0.9 % SODIUM CHLORIDE 250 ML 250 MG IV (09:37)
[2024-01-13] MEDS: SODIUM CHLORIDE 0.9% INHALATION 3 ML NEB 6 ML IH (11:38)
[2024-01-13 11:40] VITALS: PULSE 93; O2SAT 2
--- NOTE | 2024-01-13 11:40 | PM.DS1 ---
DS: Providers Provider Date of admission: 01/09/24 13:50 Primary care physician: REBEKAH BARBOZA Admitting clinician: Shelton Elkins Attending physician on admission: Shelton Elkins Consults: 01/09/24 15:15 Consult to Pharmacy Routine Consulting Provider: Reason for consultation: Please [place] me when Med Rec is Updated Has provider been notified: No Attending physician on discharge: Shaikh Lawanda Discharging clinician: Shaikh Lawanda Anticipated date of discharge: 01/13/24 DS: Diagnosis Discharge Diagnosis (1) Pneumonia: Assessment and plan: Treated with IV vancomycin, ceftazidime and azithromycin. Cultures are negative. Will discharge on oral doxycycline and Levaquin. Qualifiers: Laterality: bilateral Lung location: lower lobe of lung Pneumonia type: due to unspecified organism Qualified Code(s): J18.9 - Pneumonia, unspecified organism (2) Acute and chronic respiratory failure with hypoxia: Assessment and plan: Previously required oxygen as needed. Now requiring it consistently and all the time. Will discharge on home O2. Follow-up with pulmonology as outpatient (3) Bronchiectasis with acute exacerbation: Assessment and plan: Improved now. More or less at his baseline. Follow-up with pulmonology output (4) Chest wall pain: Assessment and plan: Due to pneumonia and is now resolved. (5) Steroid-induced hyperglycemia: Assessment and plan: Monitor blood glucose while on steroids closely. (6) TEF (tracheoesophageal fistula): Assessment and plan: Status postsurgical repair. (7) GERD (gastroesophageal reflux disease): Assessment and plan: Continue with PPI Qualifiers: Esophagitis presence: esophagitis presence not specified Qualified Code(s): K21.9 - Gastro-esophageal reflux disease without esophagitis (8) Malnutrition of moderate degree: Assessment and plan: Will benefit from outpatient evaluation by dietitian/nutrition DS: Summary Hospital Course Hospital Course: 33-year-old male with history of bronchiectasis from tracheoesophageal repair as a child presented with worsening shortness of breath, chest pain and was found to have acute on chronic respiratory failure with hypoxia, bronchiectasis with exacerbation, hospital-acquired pneumonia for which she was started on IV steroids, inhaled bronchodilators along with IV azithromycin and IV ceftazidime. Given his prior history of recurrent antibiotic and prednisone use, I also added IV vancomycin to cover for MRSA. Patient clinically improved during the course of admission but is still requiring O2 oxygen consistently. Previously he used oxygen as needed. He will likely need chronic O2 as outpatient. Patient is medically stable for discharge on oral Levaquin and doxycycline. Patient was instructed to follow-up with PCP and pulmonology as outpatient. Status at Discharge Functional status at discharge: independent ambulation Overall status at discharge: patient is back to baseline Time Spent with Patient Time attestation: Total time spent providing and/or coordinating discharge services: Time spent: greater than 30 minutes Exam Constitutional Vital Signs, click to edit/add: Last Vital Signs Temp 97.8 F 01/13/24 08:37 Pulse 103 H 01/13/24 08:37 Resp 16 01/13/24 08:38 BP 124/72 01/13/24 08:37 Pulse Ox 94 L 01/13/24 08:37 O2 Del Method Nasal Cannula 01/13/24 08:37 O2 Flow Rate 2 01/13/24 08:37 Documenting provider has reviewed patient's vital signs: yes Common normals: no apparent distress General appearance: cooperative, comfortable and ill appearing Respiratory Other: Coarse breath sounds, expiratory wheezing. Mild shortness of breath noted when patient was conversing. No use of accessory muscles of respiration. No respiratory distress noted. Cardio Common normals: no JVD, regular rate, regular rhythm, S1 normal heart sound and S2 normal heart sound Extremity Common normals: normal to inspection and full ROM Neuro Common normals: oriented x3, moves all extremities and no focal motor deficits Psych Common normals: mental status grossly normal, thought process normal, denies homicidal ideation and denies suicidal ideation DS: Data Data Completed and Pending Labs on day of discharge: Labs from last 24 hours 01/13/24 07:35 WBC 16.4 H RBC 5.12 Hgb 15.0 Hct 45.4 MCV 88.7 MCH 29.3 MCHC 33.0 RDW 12.9 Plt Count 306 MPV 11.6 Neut % (Auto) 94.0 H Lymph % (Auto) 3.2 L Riley % (Auto) 1.9 Eos % (Auto) 0.0 L Baso % (Auto) 0.2 Neut # (Auto) 15.5 H Lymph # (Auto) 0.5 L Riley # (Auto) 0.3 Eos # (Auto) 0.0 Baso # (Auto) 0.0 Abs Immat Gran (auto) 0.11 H Imm/Tot Granulo (auto) 0.7 H Sodium 139 Potassium 3.7 Chloride 104 Carbon Dioxide 25.7 Anion Gap 13.0 BUN 17.0 Creatinine 0.78 Est GFR ( Amer) >60 Est GFR (Non-Af Amer) >60 BUN/Creatinine Ratio 21.8 Glucose 145 H Calcium 8.8 Total Bilirubin 0.4 AST 17 ALT 40 Alkaline Phosphatase 83 Total Protein 6.3 L Albumin 3.3 L Globulin 3.0 Albumin/Globulin Ratio 1.1 Discharge Plan Discharge Disposition: Home, Self-Care Condition: Fair Discharge Medications: New levofloxacin 750 mg tablet 750 mg PO DAILY 5 Days Qty: 5 0RF doxycycline hyclate 100 mg tablet 100 mg PO BID Qty: 10 0RF prednisone 20 mg tablet 20 mg PO BID Qty: 10 0RF Continued trazodone 50 mg tablet 50 mg PO BEDTIME escitalopram oxalate 10 mg tablet 10 mg PO .qd pantoprazole 40 mg tablet,delayed release (DR/EC) 40 mg PO .qd albuterol sulfate 2.5 mg /3 mL (0.083 %) solution for nebulization 2.5 mg inhalation Q6H PRN (Reason: shortness of breath or wheezing) Qty: 75 0RF albuterol sulfate 90 mcg/actuation HFA aerosol inhaler 2 puff INHALATION Q6H PRN (Reason: shortness of breath or wheezing) Qty: 0 0RF Activity: increase activity as tolerated Diet: advance to your usual diet Print Language: Belizean Forms: Portal Instructions Follow Up Appointments: pcp in one week Pulm in 2-3 weeks
--- NOTE | 2024-01-13 12:09 | PC.NURSE ---
Spoke with Dr Lawanda sanchez to travel home without O2. Primary nurse notified. Patient was informed and highly advice no one to smoke in the vehicle to include himself.
[2024-01-13 12:42] VITALS: BP 128/75; PULSE 86; TEMP 36.7; O2SAT 94
--- NOTE | 2024-01-14 14:51 | CM.DCFOLLOWU ---
1st attempt 01/14/24, no answer
--- NOTE | 2024-01-15 14:57 | CM.DCFOLLOWU ---
01/14- 2nd attempt. No answer
--- NOTE | 2024-01-16 15:11 | CM.DCFOLLOWU ---
3rd attempt 01/16/24, no answer
== END 2024-01-13 13:40 | disposition home or self-care (01) | DRG 193 ==
LOC: ER 13:07 → MS 13:59
PROVIDERS: Admitting Provider Family Medicine; Emergency Provider Emergency Medicine; PCP Nurse Practitioner Family; Visit Provider Internal Medicine
DX: J18.9 Pneumonia, unspecified organism (principal); J96.21 Acute and chronic respiratory failure with hypoxia; E87.1 Hypo-osmolality and hyponatremia; J47.0 Bronchiectasis with acute lower respiratory infection; J47.1 Bronchiectasis with (acute) exacerbation; E44.0 Moderate protein-calorie malnutrition; Z87.01 Personal history of pneumonia (recurrent); Z86.16 Personal history of COVID-19; K21.9 Gastro-esophageal reflux disease without esophagitis; F32.A Depression, unspecified; F17.290 Nicotine dependence, other tobacco product, uncomplicated; R07.89 Other chest pain; F41.1 Generalized anxiety disorder; R73.9 Hyperglycemia, unspecified; T38.0X5A Adverse effect of glucocorticoids and synthetic analogues, initial encounter; Z99.81 Dependence on supplemental oxygen; Y95 Nosocomial condition; Z68.21 Body mass index [BMI] 21.0-21.9, adult
CPT/HCPCS: 36415; 71045; 71046; 71275; 80053; 80202; 83605; 84484; 85025; 87804; 87811; 93005; 94640; 94667; 94668; 94761; 96365; 96366; 96367; 96375; 96376; 99285; J0456; J0713; J1100; J1885; J2270; J2919; J3370; Q9967

== ENCOUNTER 2024-01-22 09:46 | Emergency (ER) | payer MEDICARE, MEDICAID, SELFPAY ==
[2024-01-22] VITALS (12 sets, daily range): BP systolic 100–137; BP diastolic 61–83; PULSE 76–81; TEMP 37.2; O2SAT 93–95; BMI 21.8
--- NOTE | 2024-01-22 09:55 | XR_ITS ---
[address] [address] Patient Name: FRANCIS GALVEZ MRN: [id number] date: 1990 Sex: M Assigned Patient Location: ER Current Patient Location: ED.MAIN Accession/Order Number: [id number] Exam Date: 01/22/2024 10:15 Report Date: 01/22/2024 10:42 At the request of: PEREZ BAUTISTA Procedure: XR chest 2V EXAMINATION: XR chest 2V HISTORY: sob COMPARISON: XR chest 01/12/2024, 01/09/2024, 12/29/2023, 05/23/2023 FINDINGS: LUNGS: Underexpanded lungs with chronic right infrahilar opacities. VASCULATURE: No increased pulmonary vasculature. PLEURA: Stable small left pleural effusion. CARDIAC: No cardiomegaly or cardiac silhouette abnormality. MEDIASTINUM: No visible mass or adenopathy. BONES: No fracture or visible bone lesion. OTHER: Negative. XR/XR chest 2V IMPRESSION: 1. Stable chronic lung findings and small left pleural effusion/blunting of costophrenic angle. 2. No acute findings. Electronically authenticated by: GUS BANERJEE Date: 01/22/2024 10:42
--- NOTE | 2024-01-22 09:55 | ECG_ITS ---
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
[2024-01-22 10:07] LABS: Basophils Percent Auto 0.3 % (0.2-2.0); Eosinophils Absolute Auto 0.2 10^3/uL (0.0-0.7); Eosinophils Percent Auto 1.5 % (0.9-7.0); Hematocrit 46.7 % (42.0-54.0); Hemoglobin 15.6 g/dL (14.0-18.0); Immature Granulocytes Abs Auto 0.14 10^3/uL (0.00-0.03); Immature Granulocytes Pct Auto 1.1 % (0.0-0.5); Mean Corpuscular HGB Conc 33.4 g/dL (29.9-35.2); Mean Corpuscular Hemoglobin 29.5 pg (25.9-34.0); Mean Corpuscular Volume 88.4 fL (80.0-94.0); Mean Platelet Volume 10.5 fL (9.5-13.5); Monocytes Absolute Auto 0.9 10^3/uL (0.3-0.8); Monocytes Percent Auto 6.6 % (1.7-12.0); Neutrophils Absolute Auto 9.9 10^3/uL (1.4-6.5); Neutrophils Percent Auto 75.5 % (43.0-75.0); Platelet Count 267 10^3/uL (150-450); Red Blood Count 5.28 10^6/uL (4.70-6.10); Red Cell Distribution Width 12.8 % (11.0-15.0); White Blood Count 13.1 10^3/uL (4.0-11.0)
[2024-01-22 10:18] LABS: Internal Control Within Normal Limits; SARS-CoV-2 Ag NEGATIVE (NEGATIVE)
[2024-01-22 10:21] LABS: Alanine Aminotransferase 41 U/L (16-63); Albumin Level 3.3 g/dL (3.4-5.0); Alkaline Phosphatase 109 U/L (46-116); Anion Gap 13.1; Aspartate Amino Transferase 21 U/L (15-37); BUN Creatinine Ratio 19.1; Bilirubin Total 0.3 mg/dL (0.2-1.0); Calcium 8.2 mg/dL (8.5-10.1); Carbon Dioxide 28.1 mmol/L (21.0-32.0); Chloride 103 mmol/L (98-107); Estimated GFR (African America >60 (>=60); Estimated GFR (Non-African Ame >60 (>=60); Globulin 3.2 g/dL; Glucose 99 mg/dL (74-106); Potassium 4.2 mmol/L (3.5-5.1); Sodium 140 mmol/L (136-145); Total Protein 6.5 g/dL (6.4-8.2)
--- NOTE | 2024-01-22 10:53 | ED.SOB1 ---
HPI - SOB/Dyspnea General Chief Complaint: Shortness of Breath/Dyspnea Stated Complaint: SOB Time Seen by Provider: 01/22/24 09:55 Source: patient Mode of arrival: ambulance History of Present Illness HPI Narrative: Patient presents ED complaining of shortness of breath. He has a chronic history of shortness of breath and respiratory issues. He was recently admitted to the hospital last week for pneumonia. He finished his antibiotics and also his steroids. He states he went to his primary doctor office for a follow-up appointment today and they were concerned because he seemed short of breath. They said his oxygen saturation was Reportedly in the upper 80s with ambulation. At rest he is in the mid 90s. He was brought in by squad. He was given breathing treatment en route and is feeling better from that. He is finished with his steroids from last week. Related Data Home Medications ?Medication ?Instructions ?Recorded ?Confirmed trazodone 50 mg tablet 50 mg PO BEDTIME 09/13/23 01/09/24 escitalopram oxalate 10 mg tablet 10 mg PO .qd 01/09/24 01/09/24 pantoprazole 40 mg tablet,delayed 40 mg PO .qd 01/09/24 01/09/24 release Previous Rx's ?Medication ?Instructions ?Recorded albuterol sulfate 2.5 mg/3 mL 2.5 mg (3 mL) inhalation Q6H PRN 05/25/23 (0.083 %) solution for nebulization shortness of breath or wheezing #75 mL albuterol sulfate 90 mcg/actuation 2 puff inhalation Q6H PRN 05/25/23 aerosol inhaler shortness of breath or wheezing #0 grams doxycycline hyclate 100 mg tablet 100 mg PO BID #10 tabs 01/13/24 levofloxacin 750 mg tablet 750 mg PO DAILY 5 days #5 tabs 01/13/24 prednisone 20 mg tablet 20 mg PO BID #10 tabs 01/13/24 Allergies Allergy/AdvReac Type Severity Reaction Status Date / Time Penicillins Allergy Intermediate Verified 09/13/23 03:00 Review of Systems ROS Status of ROS 10 or more systems reviewed and unremarkable except as noted in history and below [facility] Medical History (Updated 01/22/24 @ 10:53 by Aneta Sánchez DO) Steroid-induced hyperglycemia ?R73.9 - Hyperglycemia, unspecified (ICD-10) ?T38.0X5A - Adverse effect of glucocorticoids and synthetic analogues, initial encounter (ICD-10) Hyponatremia ?E87.1 - Hypo-osmolality and hyponatremia (ICD-10) Chest wall pain ?R07.89 - Other chest pain (ICD-10) Pneumonia ?J18.9 - Pneumonia, unspecified organism (ICD-10) Bronchiectasis with acute exacerbation ?J47.1 - Bronchiectasis with (acute) exacerbation (ICD-10) Malnutrition of moderate degree ?E44.0 - Moderate protein-calorie malnutrition (ICD-10) Depression ?F32.A - Depression, unspecified (ICD-10) Bronchiectasis ?J47.9 - Bronchiectasis, uncomplicated (ICD-10) Chronic respiratory failure with hypoxia ?J96.11 - Chronic respiratory failure with hypoxia (ICD-10) Upper respiratory infection ?J06.9 - Acute upper respiratory infection, unspecified (ICD-10) Acute hypokalemia ?E87.6 - Hypokalemia (ICD-10) Avulsion of skin ?T14.8XXA - Other injury of unspecified body region, initial encounter (ICD-10) Influenza ?J11.1 - Influenza due to unidentified influenza virus with other respiratory manifestations (ICD-10) Marijuana abuse ?F12.10 - Cannabis abuse, uncomplicated (ICD-10) Acute hypoxic respiratory failure ?J96.01 - Acute respiratory failure with hypoxia (ICD-10) Coronavirus infection ?B34.2 - Coronavirus infection, unspecified (ICD-10) Pneumonia ?J18.9 - Pneumonia, unspecified organism (ICD-10) Hospital-acquired bacterial pneumonia ?J15.9 - Unspecified bacterial pneumonia (ICD-10) Bronchiectasis with acute lower respiratory infection ?J47.0 - Bronchiectasis with acute lower respiratory infection (ICD-10) Leukocytosis ?D72.829 - Elevated white blood cell count, unspecified (ICD-10) COVID-19 ?U07.1 - COVID-19 (ICD-10) GERD (gastroesophageal reflux disease) ?K21.9 - Gastro-esophageal reflux disease without esophagitis (ICD-10) 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34 - 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) History of gastrostomy tube placement 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 (ICD-10) Pneumonia ?J18.9 - Pneumonia, unspecified organism (ICD-10) Abdominal pain ?R10.9 - Unspecified abdominal pain (ICD-10) Abdominal pain, acute ?R10.9 - Unspecified abdominal pain (ICD-10) Surgical History History of fundoplication ?Z98.890 - Other specified postprocedural states (ICD-10) History of appendectomy ?Z90.49 - Acquired absence of other specified parts of digestive tract (ICD-10) H/O chest tube placement ?Z98.890 - Other specified postprocedural states (ICD-10) History of facial surgery ?Z98.890 - Other specified postprocedural states (ICD-10) Family History Mother Family history of diabetes mellitus Family history of hypertension Grandmother Family history of diabetes mellitus Grandfather Family history of myocardial infarction Social History (Updated 01/09/24 @ 15:01 by Parris Rowland) Within the past year, how often did you have a drink containing alcohol: 2-4 times a month Within the past year, how many standard drinks containing alcohol did you have on a typical day: 1 or 2 Within the past year, how often did you have six or more drinks on one occasion: weekly Total score: 3 Score interpretation: A score of 4 or more indicates drinking is likely to affect patient's safety. 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 Known occupational exposures/hazards: No Highest level of school completed/degree received: high school graduate Are you now , , , , never or living with a partner: In a typical week, how many times do you talk on the telephone with family, friends, or neighbors: 3 or more times per week How often do you get together with friends or relatives: once per week How often do you attend jew or christian services: never Do you belong to any clubs or organizations such as jew groups unions, [employer] or athletic groups, or school groups: no Total score: 1 Score interpretation: A score of less than or equal to 1 indicates the most socially isolated. Little interest or pleasure in doing things: not at all Feeling down, depressed, or hopeless: not at all Feel stressed/tense/nervous/anxious/difficulty sleeping: not at all Do you think of yourself as: straight/heterosexual Gender Identity: male Exam Narrative Exam Narrative: General: alert, no acute distress Cardiovascular: regular rate and rhythm, normal peripheral perfusion. Respiratory: Lungs CTA, respirations non labored.Chronically diminished breath sounds bilaterallyNo acute wheezing or no acute respiratory distress Extremities: no deformity, no trauma. Neurological: oriented x 4, LOC appropriate for age. Constitutional Vital Signs, click to edit/add: Last Vital Signs Temp 98.9 F 01/22/24 09:47 Pulse 77 01/22/24 09:47 Resp 24 H 01/22/24 09:47 BP 137/83 01/22/24 09:47 Pulse Ox 95 01/22/24 10:04 O2 Del Method Nasal Cannula 01/22/24 10:04 O2 Flow Rate 3 01/22/24 10:04 Course Vital Signs Vital signs: Vital Signs Temperature 98.9 F 01/22/24 09:47 Pulse Rate 77 01/22/24 09:47 Respiratory Rate 24 H 01/22/24 09:47 Blood Pressure 137/83 01/22/24 09:47 Pulse Oximetry 93 L 01/22/24 09:47 Oxygen Delivery Method Room Air 01/22/24 09:47 Temperature 98.9 F 01/22/24 09:47 Pulse Rate 77 01/22/24 09:47 Respiratory Rate 24 H 01/22/24 09:47 Blood Pressure 137/83 01/22/24 09:47 Pulse Oximetry 95 01/22/24 10:04 Oxygen Delivery Method Nasal Cannula 01/22/24 10:04 Oxygen Delivery Flow Rate 3 01/22/24 10:04 MDM - SOB/Dyspnea MDM Narrative Medical decision making narrative: Patient's labs and imaging are nonacute. He has had no acute respiratory distress here. He is not requiring supplemental oxygen other than what he uses at home but is also been satting 94% on room air as well. He got up to walk to the bathroom without any difficulty as well. No new pneumonia or effusion on the x-ray. Patient will be sent home, continue breathing treatments and oxygen therapy at home as designated by your physician. Follow-up with family doctor as scheduled, return to ED if worsening symptoms. Differential Diagnosis Differential diagnosis: Likely acute exacerbation of chronic obstructive airways disease, community acquired pneumonia and asthma with exacerbation Medical Records Attestation: I reviewed the patient's medical records. Lab Data Attestation: I reviewed the patient's lab results. Labs: Lab Results 01/22/24 01/22/24 Range/Units 09:58 10:00 WBC 13.1 H (4.0-11.0) 10^3/uL RBC 5.28 (4.70-6.10) 10^6/uL Hgb 15.6 (14.0-18.0) g/dL Hct 46.7 (42.0-54.0) % MCV 88.4 (80.0-94.0) fL MCH 29.5 (25.9-34.0) pg MCHC 33.4 (29.9-35.2) g/dL RDW 12.8 (11.0-15.0) % Plt Count 267 (150-450) 10^3/uL MPV 10.5 (9.5-13.5) fL Neut % (Auto) 75.5 H (43.0-75.0) % Lymph % (Auto) 15.0 L (20.5-60.0) % [place] % (Auto) 6.6 (1.7-12.0) % Eos % (Auto) 1.5 (0.9-7.0) % Baso % (Auto) 0.3 (0.2-2.0) % Neut # (Auto) 9.9 H (1.4-6.5) 10^3/uL Lymph # (Auto) 2.0 (1.2-3.8) 10^3/uL [place] # (Auto) 0.9 H (0.3-0.8) 10^3/uL Eos # (Auto) 0.2 (0.0-0.7) 10^3/uL Baso # (Auto) 0.0 (0.0-0.1) 10^3/uL Abs Immat Gran (auto) 0.14 H (0.00-0.03) 10^3/uL Imm/Tot Granulo (auto) 1.1 H (0.0-0.5) % Sodium 140 (136-145) mmol/L Potassium 4.2 (3.5-5.1) mmol/L Chloride 103 (98-107) mmol/L Carbon Dioxide 28.1 (21.0-32.0) mmol/L Anion Gap 13.1 BUN 18.0 (7.0-18.0) mg/dL Creatinine 0.94 (0.70-1.30) mg/dL Est GFR ( Amer) >60 (>=60) Est GFR (Non-Af Amer) >60 (>=60) BUN/Creatinine Ratio 19.1 Glucose 99 (74-106) mg/dL Calcium 8.2 L (8.5-10.1) mg/dL Total Bilirubin 0.3 (0.2-1.0) mg/dL AST 21 (15-37) U/L ALT 41 (16-63) U/L Alkaline Phosphatase 109 (46-116) U/L Total Protein 6.5 (6.4-8.2) g/dL Albumin 3.3 L (3.4-5.0) g/dL Globulin 3.2 g/dL Albumin/Globulin Ratio 1.0 SARS-CoV-2 Ag (CV2AG) Negative (NEGATIVE) Imaging Data Chest x-ray: Radiologist's impression: ITS Impressions Chest X-Ray 01/22/24 09:55 IMPRESSION: 1. Stable chronic lung findings and small left pleural effusion/blunting of costophrenic angle. 2. No acute findings. Electronically authenticated by: GUS BANERJEE Date: 01/22/2024 10:42 ECG Data Interpretation: EKG INTERPRETATION Time: []950 Rate: []79 Rhythm: _ []Normal sinus rhythm ST segments: _ []No acute ST elevation or depression T waves: _ [] Ectopy: _ [] P wave/WV interval: _ [] QRS interval: _ [] QT interval: _ [] Comparison: _ [] Comparison EKG date: [] Performed by: [self] Discharge Plan Discharge Stand Alone Forms: Work/School Release, Portal Instructions Chief Complaint: Shortness of Breath/Dyspnea Clinical Impression: Chronic shortness of breath Patient Disposition: Home, Self-Care Time of Disposition Decision: 10:52 Condition: Good Mode of Transportation: Private Vehicle Prescriptions / Home Meds: No Action trazodone 50 mg tablet 50 mg PO BEDTIME escitalopram oxalate 10 mg tablet 10 mg PO .qd pantoprazole 40 mg tablet,delayed release (DR/EC) 40 mg PO .qd levofloxacin 750 mg tablet 750 mg PO DAILY 5 Days Qty: 5 0RF doxycycline hyclate 100 mg tablet 100 mg PO BID Qty: 10 0RF prednisone 20 mg tablet 20 mg PO BID Qty: 10 0RF albuterol sulfate 2.5 mg /3 mL (0.083 %) solution for nebulization 2.5 mg inhalation Q6H PRN (Reason: shortness of breath or wheezing) Qty: 75 0RF albuterol sulfate 90 mcg/actuation HFA aerosol inhaler 2 puff INHALATION Q6H PRN (Reason: shortness of breath or wheezing) Qty: 0 0RF Print Language: Swazi Instructions: Shortness of Breath (ED) Referrals: REBEKAH BARBOZA [Primary Care Provider] - 1 week
== END 2024-01-22 11:12 | disposition home or self-care (01) ==
PROVIDERS: Emergency Provider Emergency Medicine; PCP Nurse Practitioner Family
DX: R06.02 Shortness of breath (principal); F17.200 Nicotine dependence, unspecified, uncomplicated; Z20.822 Contact with and (suspected) exposure to COVID-19
CPT/HCPCS: 36415; 71046; 80053; 85025; 87811; 93005; 99285

== ENCOUNTER 2024-01-30 20:42 | Emergency (ER) | payer MEDICARE, MEDICAID, SELFPAY ==
[2024-01-30 20:45] VITALS: BP 135/82; PULSE 101; TEMP 37.5; O2SAT 95; BMI 21.8
[2024-01-30 20:54] VITALS: PULSE 98
--- NOTE | 2024-01-30 20:54 | ECG_ITS ---
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
[2024-01-30 21:29] LABS: Basophils Absolute Auto 0.1 10^3/uL (0.0-0.1); Eosinophils Absolute Auto 0.1 10^3/uL (0.0-0.7); Eosinophils Percent Auto 1.4 % (0.9-7.0); Hematocrit 48.1 % (42.0-54.0); Hemoglobin 16.6 g/dL (14.0-18.0); Immature Granulocytes Abs Auto 0.03 10^3/uL (0.00-0.03); Immature Granulocytes Pct Auto 0.3 % (0.0-0.5); Lymphocytes Absolute Auto 2.5 10^3/uL (1.2-3.8); Lymphocytes Percent Auto 23.9 % (20.5-60.0); Mean Corpuscular HGB Conc 34.5 g/dL (29.9-35.2); Mean Corpuscular Hemoglobin 29.9 pg (25.9-34.0); Mean Corpuscular Volume 86.5 fL (80.0-94.0); Mean Platelet Volume 11.9 fL (9.5-13.5); Monocytes Absolute Auto 0.9 10^3/uL (0.3-0.8); Monocytes Percent Auto 8.6 % (1.7-12.0); Neutrophils Absolute Auto 6.6 10^3/uL (1.4-6.5); Neutrophils Percent Auto 64.8 % (43.0-75.0); Platelet Count 223 10^3/uL (150-450); Red Blood Count 5.56 10^6/uL (4.70-6.10); Red Cell Distribution Width 12.5 % (11.0-15.0); White Blood Count 10.2 10^3/uL (4.0-11.0)
[2024-01-30 21:40] LABS: Anion Gap 14.5
[2024-01-30] MEDS: 0.9 % SODIUM CHLORIDE 1,000 ML 1000 ML IV (21:40)
[2024-01-30] MEDS: MORPHINE SULFATE 4 MG/ML VIAL IV (21:41)
[2024-01-30] MEDS: FAMOTIDINE/PF 20 MG/2 ML VIAL IV (21:41)
[2024-01-30] MEDS: ONDANSETRON PF 4 MG/2 ML VIAL IV (21:41)
--- NOTE | 2024-01-30 21:41 | ED_ITS ---
HPI HPI - General Adult General Chief complaint: Abdominal Pain Stated complaint: ABD PAIN Time Seen by Provider: 01/30/24 20:55 Source: patient Mode of arrival: Wheelchair Limitations: no limitations History of Present Illness HPI narrative: This 33-year-old male with a history of pancreatitis and bronchiectasis/chronic bronchitis presents for evaluation of bilateral lower abdominal pain with nausea, vomiting and several days of diarrhea preceding his nausea and vomiting. The patient admits to drinking 6 or 7 beers last night. He states that he woke up this morning and felt hung over with nausea and had some vomiting and developed pain in his chest and abdomen. He denies any trauma. He states that he is having diarrhea because he was on prednisone for his bronchiectasis/chron ic bronchitis. He does admit to tobacco use. 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 He states that he has had pain all day and his girlfriend finally convinced him to come to the hospital so his roommate brought him here. He denies any shortness of breath dizziness or syncope. He has not had any diaphoresis. He does not have a history of any cardiac disease. Related Data Home Medications ?Medication ?Instructions ?Recorded ?Confirmed trazodone 50 mg tablet 50 mg PO BEDTIME 09/13/23 01/09/24 escitalopram oxalate 10 mg tablet 10 mg PO .qd 01/09/24 01/09/24 pantoprazole 40 mg tablet,delayed 40 mg PO .qd 01/09/24 01/09/24 release Previous Rx's ?Medication ?Instructions ?Recorded albuterol sulfate 2.5 mg/3 mL 2.5 mg (3 mL) inhalation Q6H PRN 05/25/23 (0.083 %) solution for nebulization shortness of breath or wheezing #75 mL albuterol sulfate 90 mcg/actuation 2 puff inhalation Q6H PRN 05/25/23 aerosol inhaler shortness of breath or wheezing #0 grams doxycycline hyclate 100 mg tablet 100 mg PO BID #10 tabs 01/13/24 levofloxacin 750 mg tablet 750 mg PO DAILY 5 days #5 tabs 01/13/24 prednisone 20 mg tablet 20 mg PO BID #10 tabs 01/13/24 Allergies Allergy/AdvReac Type Severity Reaction Status Date / Time Penicillins Allergy Intermediate Hives Verified 01/30/24 20:50 Opioid HPI Opioid Management Most Recent Opioid Data: Last Pain Scale 10 01/30/24 22:31 Last ED Pain Assessment 01/30/24 22:26 Last ORT Total Score 11 01/09/24 14:30 Last ORT Risk Category High Risk 01/09/24 14:30 Review of Systems ROS Status of ROS 10 or more systems reviewed and unremark able except as noted in history and below [facility] Medical History (Updated 01/30/24 @ 23:36 by Rani Cam MD) Steroid-induced hyperglycemia ?R73.9 - Hyperglycemia, unspecified (ICD-10) ?T38.0X5A - Adverse effect of glucocorticoids and synthetic analogues, initial encounter (ICD-10) Hyponatremia ?E87.1 - Hypo-osmolality and hyponatremia (ICD-10) Chest wall pain ?R07.89 - Other chest pain (ICD-10) Pneumonia ?J18.9 - Pneumonia, unspecified organism (ICD-10) Bronchiectasis with acute exacerbation ?J47.1 - Bronchiectasis with (acute) exacerbation (ICD-10) Malnutrition of moderate degree ?E44.0 - Moderate protein-calorie malnutrition (ICD-10) Depression ?F32.A - Depression, unspecified (ICD-10) Bronchiectasis ?J47.9 - Bronchiectasis, uncomplicated (ICD-10) Chronic respiratory failure with hypoxia ?J96.11 - Chronic respiratory failure with hypoxia (ICD-10) Upper respiratory infection ?J06.9 - Acute upper respiratory infection, unspecified (ICD-10) Acute hypokalemia ?E87.6 - Hypokalemia (ICD-10) Avulsion of skin ?T14.8XXA - Other injury of unspecified body region, initial encounter (ICD- 10) Influenza ?J11.1 - Influenza due to unidentified influenza virus with other respiratory manifestations (ICD-10) Marijuana abuse ?F12.10 - Cannabis abuse, uncomplicated (ICD-10) Acute hypoxic respiratory failure ?J96.01 - Acute respiratory failure with hypoxia (ICD-10) Coronavirus infection ?B34.2 - Coronavirus infection, unspecified (ICD-10) Pneumonia ?J18.9 - Pneumonia, unspecified organism (ICD-10) Hospital-acquired bacterial pneumonia ?J15.9 - Unspecified bacterial pneumonia (ICD-10) Bronchiectasis with acute lower respiratory infection ?J47.0 - Bronchiectasis with acute lower respiratory infection (ICD-10) Leukocytosis ?D72.829 - Elevated white blood cell count, unspecified (ICD-10) COVID-19 ?U07.1 - COVID-19 (ICD-10) GERD (gastroesophageal reflux disease) ?K21.9 - Gastro-esophageal reflux disease without esophagitis (ICD-10) 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34 - 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) History of gastrostomy tube placement 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 (ICD-10) Pneumonia ?J18.9 - Pneumonia, unspecified organism (ICD-10) Abdominal pain ?R10.9 - Unspecified abdominal pain (ICD-10) Abdominal pain, acute ?R10.9 - Unspecified abdominal pain (ICD-10) Surgical History History of fundoplication ?Z98.890 - Other specified postprocedural states (ICD-10) History of appendectomy ?Z90.49 - Acquired absence of other specified parts of digestive tract (ICD- 10) H/O chest tube placement ?Z98.890 - Other specified postprocedural states (ICD-10) History of facial surgery ?Z98.890 - Other specified postprocedural states (ICD-10) Family History Mother Family history of diabetes mellitus Family history of hypertension Grandmother Family history of diabetes mellitus Grandfather Family history of myocardial infarction Social History (Updated 01/09/24 @ 15:01 by Parris Rowland) Within the past year, how often did you have a drink containing alcohol: 2-4 times a month Within the past year, how many standard drinks containing alcohol did you have on a typical day: 1 or 2 Within the past year, how often did you have six or more drinks on one occasion: weekly Total score: 3 Score interpretation: A score of 4 or more indicates drinking is likely to affect patient's safety. 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 Known occupational exposures/hazards: No Highest level of school completed/degree received: high school graduate Are you now , , , , never or living with a partner: In a typical week, how many times do you talk on the telephone with family, friends, or neighbors: 3 or more times per week How often do you get together with friends or relatives: once per week How often do you attend muslim or protestant services: never Do you belong to any clubs or organizations such as muslim groups unions, fraternal or athletic groups, or school groups: no Total score: 1 Score interpretation: A score of less than or equal to 1 indicates the most socially isolated. Little interest or pleasure in doing things: not at all Feeling down, depressed, or hopeless: not at all Feel stressed/tense/nervous/anxious/difficulty sleeping: not at all Do you think of yourself as: straight/heterosexual Gender Identity: male Exam Narrative Exam Narrative: Vital signs and Nursing Notes reviewed: Patient is afebrile with an normal blood pressure, pulse is mildly elevated at 101, respiratory rate is mildly elevated at 24, he is not hypoxic with pulse ox of 95% on room air General: Awake, alert, oriented, no acute distress, lying comfortably on the stretcher, he is face timing with his girlfriend on the phone, no respiratory distress, no active vomiting HEENT: Normocephalic atraumatic, mucous membranes are moist and pink, eyes are clear, normal conjunctiva, vision is grossly intact, posterior pharynx is normal in appearance. Neck: Supple, no meningeal signs, no anterior or posterior cervical lymphade nopathy Chest: Lungs are clear to auscultation with coarse respirations in the left lower lung CVS: Regular rate and rhythm S1-S2, no murmurs rubs or gallops, pulses are brisk and equal bilaterally ABD: Soft, nondistended, nontender, large well-healed abdominal wall incision in the center of the abdomen Extremities: Moving all extremities, no lower extremity tenderness or swelling noted, negative Homans' sign, pulses are brisk and equal bilaterally Skin: Normal in appearance without rash,pallor, petechiae or purpura Neuro: No focal deficits Constitutional Vital Signs, click to edit/add: Last Vital Signs Temp 99.5 F 01/30/24 20:45 Pulse 98 H 01/30/24 23:21 Resp 16 01/30/24 23:21 BP 121/78 01/30/24 23:21 Pulse Ox 92 L 01/30/24 23:21 O2 Del Method Room Air 01/30/24 23:21 Course Vital Signs Vital signs: Vital Signs Temperature 99.5 F 01/30/24 20:45 Pulse Rate 101 H 01/30/24 20:45 Respiratory Rate 24 H 01/30/24 20:45 Blood Pressure 135/82 01/30/24 20:45 Pulse Oximetry 95 01/30/24 20:45 Oxygen Delivery Method Room Air 01/30/24 20:45 Temperature 99.5 F 01/30/24 20:45 Pulse Rate 98 H 01/30/24 23:21 Respiratory Rate 16 01/30/24 23:21 Blood Pressure 121/78 01/30/24 23:21 Pulse Oximetry 92 L 01/30/24 23:21 Oxygen Delivery Method Room Air 01/30/24 23:21 Medical Decision Making MDM Narrative Medical decision making narrative: This 33-year-old male with a history of pancreatitis who also had a tracheoesophageal fistula as a baby requiring a feeding tube presents for evaluation of chest pain and abdominal pain after drinking moderately last night. He states he woke up and vomited and then started having pain in bilateral lower abdomen. He has also recently been having some diarrhea which he attributes to recently being treated for pancreatitis. The patient also has a history of chronic bronchitis and smokes. He states he was having pain in his bilateral lower quadrants which brought him to the hospital. His vital signs are stable, abdomen is soft.. He had no nausea or vomiting in the hospital. I was unable to reproduce any tenderness in his abdomen. He does have a large central healed incision status post surgery as a baby. An IV was placed and he was medicated with IV fluids, morphine and Zofran. He complained of ongoing pain after that and was given a dose of IV Toradol. He has a normal white count and hemoglobin. Electrolytes are normal. Lipase is normal. Urine is normal. CT scan of the abdomen pelvis with IV contrast shows findings consistent with esophagitis status post fundoplication. The patient sees the GI group in [facility]. The results of his labs and CT scan were discussed with him. He is feeling better but is still having some discomfort and was given a GI cocktail. He will be discharged home with prescription for Pepcid and Protonix with recommendation for close follow-up with gastroenterology. I also encouraged him to quit smoking and drinking as this may be contributing factors to his esophagitis. Lab Data Labs: Lab Results 01/30/24 01/30/24 Range/Units 20:50 21:45 WBC 10.2 (4.0-11.0) 10^3/uL RBC 5.56 (4.70-6.10) 10^6/uL Hgb 16.6 (14.0-18.0) g/dL Hct 48.1 (42.0-54.0) % MCV 86.5 (80.0-94.0) fL MCH 29.9 (25.9-34.0) pg MCHC 34.5 (29.9-35.2) g/dL RDW 12.5 (11.0-15.0) % Plt Count 223 (150-450) 10^3/uL MPV 11.9 (9.5-13.5) fL Neut % (Auto) 64.8 (43.0-75.0) % Lymph % (Auto) 23.9 (20.5-60.0) % [place] % (Auto) 8.6 (1.7-12.0) % Eos % (Auto) 1.4 (0.9-7.0) % Baso % (Auto) 1.0 (0.2-2.0) % Neut # (Auto) 6.6 H (1.4-6.5) 10^3/uL Lymph # (Auto) 2.5 (1.2-3.8) 10^3/uL [place] # (Auto) 0.9 H (0.3-0.8) 10^3/uL Eos # (Auto) 0.1 (0.0-0.7) 10^3/uL Baso # (Auto) 0.1 (0.0-0.1) 10^3/uL Abs Immat Gran (auto) 0.03 (0.00-0.03) 10^3/uL Imm/Tot Granulo (auto) 0.3 (0.0-0.5) % Sodium 141 (136-145) mmol/L Potassium 3.7 (3.5-5.1) mmol/L Chloride 103 (98-107) mmol/L Carbon Dioxide 27.2 (21.0-32.0) mmol/L Anion Gap 14.5 BUN 14.0 (7.0-18.0) mg/dL Creatinine 0.84 (0.70-1.30) mg/dL Est GFR ( Amer) >60 (>=60) Est GFR (Non-Af Amer) >60 (>=60) BUN/Creatinine Ratio 16.7 Glucose 98 (74-106) mg/dL Calcium 8.8 (8.5-10.1) mg/dL Total Bilirubin 0.8 (0.2-1.0) mg/dL AST 24 (15-37) U/L ALT 37 (16-63) U/L Alkaline Phosphatase 109 (46-116) U/L Troponin I High Sens 4.4 (4.0-76.1) pg/mL Total Protein 7.2 (6.4-8.2) g/dL Albumin 3.9 (3.4-5.0) g/dL Globulin 3.3 g/dL Albumin/Globulin Ratio 1.2 Lipase 37.0 (16.0-77.0) U/L Urine Color Lt. yellow (YELLOW) Urine Clarity Clear (CLEAR) Urine pH 6.5 (5.0-9.0) Ur Specific [place] 1.025 (1.005-1.025) Urine Protein Negative (NEG/TRACE) mg/dL Urine Glucose (UA) Negative (NEGATIVE) mg/dL Urine Ketones Negative (NEGATIVE) mg/dL Urine Occult Blood Negative (NEGATIVE) Urine Nitrite Negative (NEGATIVE) Urine Bilirubin Negative (NEGATIVE) Urine Urobilinogen 2.0 A (0.2-1.0) EU/dL Ur Leukocyte Esterase Negative (NEGATIVE) ECG Data Attestation: I personally reviewed and interpreted this ECG as follows: (Sinus rhythm 90 bpm, left anterior hemiblock, no acute ST segment elevation or T wave inversion) Discharge Plan Discharge Stand Alone Forms: Work/School Release, Portal Instructions Chief Complaint: Abdominal Pain Clinical Impression: Esophagitis with gastritis Patient Disposition: Home, Self-Care Time of Disposition Decision: 23:35 Condition: Good Prescriptions / Home Meds: No Action trazodone 50 mg tablet 50 mg PO BEDTIME escitalopram oxalate 10 mg tablet 10 mg PO .qd pantoprazole 40 mg tablet,delayed release (DR/EC) 40 mg PO .qd levofloxacin 750 mg tablet 750 mg PO DAILY 5 Days Qty: 5 0RF doxycycline hyclate 100 mg tablet 100 mg PO BID Qty: 10 0RF prednisone 20 mg tablet 20 mg PO BID Qty: 10 0RF albuterol sulfate 2.5 mg /3 mL (0.083 %) solution for nebulization 2.5 mg inhalation Q6H PRN (Reason: shortness of breath or wheezing) Qty: 75 0RF albuterol sulfate 90 mcg/actuation HFA aerosol inhaler 2 puff INHALATION Q6H PRN (Reason: shortness of breath or wheezing) Qty: 0 0RF Print Language: Wolof Instructions: Gastritis (ED), Upper Endoscopy (DC) Additional Instructions: ContinueAvoid tobacco and alcohol as these may make your symptoms worse. Protonix and use Pepcid in addition. Use Zofran as needed for nausea. Referrals: Sandra AG [Physician] - As soon as possible REBEKAH BARBOZA [Primary Care Provider] - 1 week
[2024-01-30 21:43] LABS: Alanine Aminotransferase 37 U/L (16-63); Albumin Globulin Ratio 1.2; Albumin Level 3.9 g/dL (3.4-5.0); Alkaline Phosphatase 109 U/L (46-116); Aspartate Amino Transferase 24 U/L (15-37); BUN Creatinine Ratio 16.7; Bilirubin Total 0.8 mg/dL (0.2-1.0); Calcium 8.8 mg/dL (8.5-10.1); Carbon Dioxide 27.2 mmol/L (21.0-32.0); Chloride 103 mmol/L (98-107); Estimated GFR (African America >60 (>=60); Estimated GFR (Non-African Ame >60 (>=60); Globulin 3.3 g/dL; Glucose 98 mg/dL (74-106); Sodium 141 mmol/L (136-145); Total Protein 7.2 g/dL (6.4-8.2)
[2024-01-30 21:58] VITALS: BP 119/83; PULSE 88; O2SAT 96
[2024-01-30 21:58] LABS: Troponin I High Sensitivity 4.4 pg/mL (4.0-76.1)
[2024-01-30 22:02] LABS: Potassium 3.7 mmol/L (3.5-5.1)
--- NOTE | 2024-01-30 22:15 | CT_ITS ---
[facility] [place] [address], [place] [address] Patient Name: FRANCIS GALVEZ MRN: [id number] date: 1990 Sex: M Assigned Patient Location: ER Current Patient Location: ER Accession/Order Number: [id number] Exam Date: 01/30/2024 22:54 Report Date: 01/30/2024 23:20 At the request of: CHILANGO MARKER Procedure: CT abdomen pelvis w con EXAM: CT abdomen pelvis w con HISTORY: abd pain , hx pancreatitis COMPARISON: 09/13/2023 TECHNIQUE: Axial CT imaging was performed through the abdomen and pelvis with intravenous contrast. Multiplanar reformats were performed. Dose reduction techniques were achieved by using automated exposure control and/or adjustment of mA and/or kV according to patient size and/or use of iterative reconstruction technique. FINDINGS: Lung bases: Redemonstration of bilateral lower lobes bronchiectasis with peribronchial thickening and mucosal plugging. GI upper: Status post fundoplication. Circumferential wall thickening of distal esophagus, may represent esophagitis. Correlation with patient's clinical symptom and upper GI endoscopy is recommended. Liver: Normal size and contour. Gallbladder: No significant abnormality. No cholelithiasis. Biliary system: No intra or extrahepatic biliary ductal dilatation. Spleen: Normal size. Pancreas: Unremarkable. Pancreatic divisum. Adrenal glands: Normal adrenal glands. Kidneys/ureters: Normal contours. No hydronephrosis. No nephrolithiasis or ureterolithiasis. Vessels: No aneurysm. Lymph Nodes: No lymphadenopathy. Small bowel: No wall thickening or dilatation. Colon: No wall thickening or dilatation. Moderate volume stool burden, representing constipation. Appendix: No findings of appendicitis. Peritoneal cavity: No free fluid or pneumoperitoneum. Lower : Unremarkable. Bones: No acute bony abnormality. Soft tissues: No acute finding. Additional findings: None. CT/CT abdomen pelvis w con IMPRESSION: Status post fundoplication. Circumferential wall thickening of distal esophagus, may represent esophagitis. Correlation with patient's clinical symptom and upper GI endoscopy is recommended. Constipation. Electronically authenticated by: CORINNE SALVADOR Date: 01/30/2024 23:20
[2024-01-30 22:25] VITALS: BP 124/78; PULSE 81; O2SAT 96
[2024-01-30] MEDS: KETOROLAC TROMETHAMINE 30 MG/ML VIAL IVP (22:31)
[2024-01-30 22:42] LABS: Bilirubin Urine NEGATIVE (NEGATIVE); Blood Urine NEGATIVE (NEGATIVE); Clarity Urine CLEAR (CLEAR); Color Urine LT. YELLOW (YELLOW); Glucose Urine UA NEGATIVE (NEGATIVE); Ketones Urine NEGATIVE (NEGATIVE); Leukocyte Esterase Urine NEGATIVE (NEGATIVE); Nitrite Urine NEGATIVE (NEGATIVE); Protein Urine NEGATIVE (NEG/TRACE); Specific Gravity Urine 1.025 (1.005-1.025); pH Urine 6.5 (5.0-9.0)
[2024-01-30 23:21] VITALS: BP 121/78; PULSE 98; O2SAT 92
[2024-01-30 23:44] LABS: Bacteria Urine TRACE #/HPF (NONE SEEN); Cast Seen? NONE SEEN #/LPF (NONE SEEN); Crystals Seen? None Seen #/HPF (None Seen); Mucus Urine NONE SEEN (NONE SEEN); RBC Urine NONE SEEN #/HPF (0-2); Squamous Epithelial Cell Urine RARE #/LPF (NONE/RARE); WBC Urine NONE SEEN #/HPF (NONE SEEN)
[2024-01-30] MEDS: lidocaine HCL 15 ML, MAG HYDROX/ALUMINUM HYD/SIMETH 30 ML, HYOSCYAMINE SULFATE 0.25 MG PO (23:52)
[2024-01-31 00:02] VITALS: BP 109/78; PULSE 83; O2SAT 94
== END 2024-01-31 00:05 | disposition home or self-care (01) ==
PROVIDERS: Emergency Provider Emergency Medicine; PCP Nurse Practitioner Family
DX: K20.90 Esophagitis, unspecified without bleeding (principal); K29.70 Gastritis, unspecified, without bleeding; F17.290 Nicotine dependence, other tobacco product, uncomplicated
CPT/HCPCS: 36415; 74177; 80053; 81001; 83690; 84484; 85025; 93005; 96361; 96374; 96375; 99285; J1885; J2270; J2405; Q9967

== ENCOUNTER 2024-02-02 19:28 | Emergency (ER) | payer MEDICARE, MEDICAID, SELFPAY ==
[2024-02-02 19:34] VITALS: BP 103/76; PULSE 58; TEMP 37.2; O2SAT 99; BMI 21.8
--- NOTE | 2024-02-02 19:47 | ED_ITS ---
HPI - Abdominal Pain General Chief Complaint: Abdominal Pain Stated Complaint: ABDOMINAL PAIN Time Seen by Provider: 02/02/24 19:31 Source: patient Mode of arrival: walk-in Limitations: no limitations History of Present Illness HPI narrative: presents complaining of left lower abdominal pain since yesterday. burning pain . Denies dysuria. Denies pain of his genitals. Admits to diarrhea past 4-5 days. No vomiting or fever MD elicited complaint: Reports abdominal pain Related Data Home Medications ?Medication ?Instructions ?Recorded ?Confirmed trazodone 50 mg tablet 50 mg PO BEDTIME 09/13/23 02/02/24 escitalopram oxalate 10 mg tablet 10 mg PO .qd 01/09/24 01/09/24 pantoprazole 40 mg tablet,delayed 40 mg PO .qd 01/09/24 02/02/24 release Previous Rx's ?Medication ?Instructions ?Recorded albuterol sulfate 2.5 mg/3 mL 2.5 mg (3 mL) inhalation Q6H PRN 05/25/23 (0.083 %) solution for nebulization shortness of breath or wheezing #75 mL albuterol sulfate 90 mcg/actuation 2 puff inhalation Q6H PRN 05/25/23 aerosol inhaler shortness of breath or wheezing #0 grams doxycycline hyclate 100 mg tablet 100 mg PO BID #10 tabs 01/13/24 levofloxacin 750 mg tablet 750 mg PO DAILY 5 days #5 tabs 01/13/24 prednisone 20 mg tablet 20 mg PO BID #10 tabs 01/13/24 Allergies Allergy/AdvReac Type Severity Reaction Status Date / Time Penicillins Allergy Intermediate Hives Verified 02/02/24 19:37 Review of Systems ROS Status of ROS 10 or more systems reviewed and unremark able except as noted in history and below [facility] Medical History (Updated 02/02/24 @ 22:51 by Carlos Dawkins MD) Steroid-induced hyperglycemia ?R73.9 - Hyperglycemia, unspecified (ICD-10) ?T38.0X5A - Adverse effect of glucocorticoids and synthetic analogues, initial encounter (ICD-10) Hyponatremia ?E87.1 - Hypo-osmolality and hyponatremia (ICD-10) Chest wall pain ?R07.89 - Other chest pain (ICD-10) Pneumonia ?J18.9 - Pneumonia, unspecified organism (ICD-10) Bronchiectasis with acute exacerbation ?J47.1 - Bronchiectasis with (acute) exacerbation (ICD-10) Malnutrition of moderate degree ?E44.0 - Moderate protein-calorie malnutrition (ICD-10) Depression ?F32.A - Depression, unspecified (ICD-10) Bronchiectasis ?J47.9 - Bronchiectasis, uncomplicated (ICD-10) Chronic respiratory failure with hypoxia ?J96.11 - Chronic respiratory failure with hypoxia (ICD-10) Upper respiratory infection ?J06.9 - Acute upper respiratory infection, unspecified (ICD-10) Acute hypokalemia ?E87.6 - Hypokalemia (ICD-10) Avulsion of skin ?T14.8XXA - Other injury of unspecified body region, initial encounter (ICD- 10) Influenza ?J11.1 - Influenza due to unidentified influenza virus with other respiratory manifestations (ICD-10) Marijuana abuse ?F12.10 - Cannabis abuse, uncomplicated (ICD-10) Acute hypoxic respiratory failure ?J96.01 - Acute respiratory failure with hypoxia (ICD-10) Coronavirus infection ?B34.2 - Coronavirus infection, unspecified (ICD-10) Pneumonia ?J18.9 - Pneumonia, unspecified organism (ICD-10) Hospital-acquired bacterial pneumonia ?J15.9 - Unspecified bacterial pneumonia (ICD-10) Bronchiectasis with acute lower respiratory infection ?J47.0 - Bronchiectasis with acute lower respiratory infection (ICD-10) Leukocytosis ?D72.829 - Elevated white blood cell count, unspecified (ICD-10) COVID-19 ?U07.1 - COVID-19 (ICD-10) GERD (gastroesophageal reflux disease) ?K21.9 - Gastro-esophageal reflux disease without esophagitis (ICD-10) 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34 - 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) History of gastrostomy tube placement 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 (ICD-10) Pneumonia ?J18.9 - Pneumonia, unspecified organism (ICD-10) Abdominal pain ?R10.9 - Unspecified abdominal pain (ICD-10) Abdominal pain, acute ?R10.9 - Unspecified abdominal pain (ICD-10) Surgical History History of fundoplication ?Z98.890 - Other specified postprocedural states (ICD-10) History of appendectomy ?Z90.49 - Acquired absence of other specified parts of digestive tract (ICD- 10) H/O chest tube placement ?Z98.890 - Other specified postprocedural states (ICD-10) History of facial surgery ?Z98.890 - Other specified postprocedural states (ICD-10) Family History Mother Family history of diabetes mellitus Family history of hypertension Grandmother Family history of diabetes mellitus Grandfather Family history of myocardial infarction Social History (Updated 01/09/24 @ 15:01 by Parris Rowland) Within the past year, how often did you have a drink containing alcohol: 2-4 times a month Within the past year, how many standard drinks containing alcohol did you have on a typical day: 1 or 2 Within the past year, how often did you have six or more drinks on one occasion: weekly Total score: 3 Score interpretation: A score of 4 or more indicates drinking is likely to affect patient's safety. 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 Known occupational exposures/hazards: No Highest level of school completed/degree received: high school graduate Are you now , , , , never or living with a partner: In a typical week, how many times do you talk on the telephone with family, friends, or neighbors: 3 or more times per week How often do you get together with friends or relatives: once per week How often do you attend christianity or judaism services: never Do you belong to any clubs or organizations such as christianity groups unions, fraternal or athletic groups, or school groups: no Total score: 1 Score interpretation: A score of less than or equal to 1 indicates the most socially isolated. Little interest or pleasure in doing things: not at all Feeling down, depressed, or hopeless: not at all Feel stressed/tense/nervous/anxious/difficulty sleeping: not at all Do you think of yourself as: straight/heterosexual Gender Identity: male Exam Constitutional Vital Signs, click to edit/add: Last Vital Signs Temp 99 F 02/02/24 19:34 Pulse 58 L 02/02/24 19:34 Resp 16 02/02/24 19:34 BP 103/76 02/02/24 19:34 Pulse Ox 99 02/02/24 19:34 O2 Del Method Room Air 02/02/24 19:34 Common normals: average body habitus, oriented x3, no limitations, healthy appearing, alert and well nourished [facility] Common normals: normocephalic and head/scalp atraumatic Eye Common normals: PERRL, EOMs intact bilaterally and conjunctivae normal Respiratory Common normals: normal respiratory effort, no retractions, no use of accessory muscles and clear to auscultation bilaterally Cardio Common normals: regular rate, regular rhythm, S1 normal heart sound and S2 normal heart sound GI Other: tenderness supra pubic and LLQ. no guarding Extremity Common normals: normal to inspection and full ROM Neuro Common normals: oriented x3, CN's II-XII intact bilaterally, moves all extremities and no focal motor deficits Psych Appearance: grossly normal Course Vital Signs Vital signs: Vital Signs Temperature 99 F 02/02/24 19:34 Pulse Rate 58 L 02/02/24 19:34 Respiratory Rate 16 02/02/24 19:34 Blood Pressure 103/76 02/02/24 19:34 Pulse Oximetry 99 02/02/24 19:34 Oxygen Delivery Method Room Air 02/02/24 19:34 Temperature 99 F 02/02/24 19:34 Pulse Rate 58 L 02/02/24 19:34 Respiratory Rate 16 02/02/24 19:34 Blood Pressure 103/76 02/02/24 19:34 Pulse Oximetry 99 02/02/24 19:34 Oxygen Delivery Method Room Air 02/02/24 19:34 MDM - Abdominal Pain MDM Narrative Medical decision making narrative: presents with abdominal pain and diarrhea. Non bloody diarrhea. stool sample collected. CT with findings of colitis and suggest possible C. difficile colitis . Patient medicated with flagyl and toradol and discharged home with these same medications on prescription. Advised to followup with his doctor . Stool cx pending Lab Data Labs: Lab Results 02/02/24 02/02/24 02/02/24 Range/Units 20:00 20:02 20:05 WBC 7.9 (4.0-11.0) 10^3/uL RBC 5.34 (4.70-6.10) 10^6/uL Hgb 15.7 (14.0-18.0) g/dL Hct 46.7 (42.0-54.0) % MCV 87.5 (80.0-94.0) fL MCH 29.4 (25.9-34.0) pg MCHC 33.6 (29.9-35.2) g/dL RDW 12.5 (11.0-15.0) % Plt Count 275 (150-450) 10^3/uL MPV 11.2 (9.5-13.5) fL Neut % (Auto) 61.8 (43.0-75.0) % Lymph % (Auto) 24.2 (20.5-60.0) % Peach % (Auto) 9.8 (1.7-12.0) % Eos % (Auto) 2.5 (0.9-7.0) % Baso % (Auto) 1.4 (0.2-2.0) % Neut # (Auto) 4.9 (1.4-6.5) 10^3/uL Lymph # (Auto) 1.9 (1.2-3.8) 10^3/uL Peach # (Auto) 0.8 (0.3-0.8) 10^3/uL Eos # (Auto) 0.2 (0.0-0.7) 10^3/uL Baso # (Auto) 0.1 (0.0-0.1) 10^3/uL Abs Immat Gran (auto) 0.02 (0.00-0.03) 10^3/uL Imm/Tot Granulo (auto) 0.3 (0.0-0.5) % Sodium 139 (136-145) mmol/L Potassium 3.9 (3.5-5.1) mmol/L Chloride 103 (98-107) mmol/L Carbon Dioxide 27.9 (21.0-32.0) mmol/L Anion Gap 12.0 BUN 10.0 (7.0-18.0) mg/dL Creatinine 0.92 (0.70-1.30) mg/dL Est GFR ( Amer) >60 (>=60) Est GFR (Non-Af Amer) >60 (>=60) BUN/Creatinine Ratio 10.9 Glucose 94 (74-106) mg/dL Lactate 1.2 (0.4-2.0) mmol/L Calcium 8.6 (8.5-10.1) mg/dL Total Bilirubin 0.6 (0.2-1.0) mg/dL AST 13 L (15-37) U/L ALT 23 (16-63) U/L Alkaline Phosphatase 100 (46-116) U/L Total Protein 6.9 (6.4-8.2) g/dL Albumin 3.8 (3.4-5.0) g/dL Globulin 3.1 g/dL Albumin/Globulin Ratio 1.2 Urine Color Yellow (YELLOW) Urine Clarity Clear (CLEAR) Urine pH 6.5 (5.0-9.0) Ur Specific [place] 1.025 (1.005-1.025) Urine Protein Negative (NEG/TRACE) mg/dL Urine Glucose (UA) Negative (NEGATIVE) mg/dL Urine Ketones Negative (NEGATIVE) mg/dL Urine Occult Blood Negative (NEGATIVE) Urine Nitrite Negative (NEGATIVE) Urine Bilirubin Negative (NEGATIVE) Urine Urobilinogen 0.2 (0.2-1.0) EU/dL Ur Leukocyte Esterase Negative (NEGATIVE) Stl Cryptosporidium Ag Negative (Negative) Giardia lamblia Ag Negative (Negative) C. difficile Toxin PCR Negative (NEGATIVE) Discharge Plan Discharge Chief Complaint: Abdominal Pain Clinical Impression: Colitis Patient Disposition: Home, Self-Care Prescriptions / Home Meds: No Action trazodone 50 mg tablet 50 mg PO BEDTIME escitalopram oxalate 10 mg tablet 10 mg PO .qd pantoprazole 40 mg tablet,delayed release (DR/EC) 40 mg PO .qd levofloxacin 750 mg tablet 750 mg PO DAILY 5 Days Qty: 5 0RF doxycycline hyclate 100 mg tablet 100 mg PO BID Qty: 10 0RF prednisone 20 mg tablet 20 mg PO BID Qty: 10 0RF albuterol sulfate 2.5 mg /3 mL (0.083 %) solution for nebulization 2.5 mg inhalation Q6H PRN (Reason: shortness of breath or wheezing) Qty: 75 0RF albuterol sulfate 90 mcg/actuation HFA aerosol inhaler 2 puff INHALATION Q6H PRN (Reason: shortness of breath or wheezing) Qty: 0 0RF Print Language: [place] Instructions: Colitis (ED) Additional Instructions: Make sure to wash hands with soap and water and to be careful because you are likely contagious. Take toradol and flagyl sent home with you in the morning and fill scripts. Flagyl is 3 times daily for 10 days. Toradol every 6 hours as needed for pain. Follow up with your doctor next week for recheck Will call with test results when done. Referrals: REBEKAH BARBOZA [Primary Care Provider] - 1 week Discharge Date/Time: 02/02/24 23:32
--- NOTE | 2024-02-02 19:55 | CT_ITS ---
The [address] [address] Patient Name: FRANCIS GALVEZ MRN: [id number] date: 1990 Sex: M Assigned Patient Location: ER Current Patient Location: ER Accession/Order Number: [id number] Exam Date: 02/02/2024 20:25 Report Date: 02/02/2024 21:19 At the request of: VIKTORIYA GOLDSMITH Procedure: CT abdomen pelvis w con EXAM: CT abdomen pelvis w con TECHNIQUE: Axial CT images were obtained of the abdomen and pelvis with intravenous contrast. Sagittal and coronal reformatted images were also obtained. Dose reduction techniques were achieved by using automated exposure control and/or adjustment of mA and/or kV according to patient size and/or use of iterative reconstruction technique. HISTORY: abdominal pain COMPARISON: 01/30/2024 FINDINGS: Lower chest: Stable bilateral lower lung bronchiectasis, most significant medially at left base. Stable 16 mm nodule inferiorly at the left base. Liver: The liver is homogeneous with normal contours and normal size. Gallbladder: The gallbladder is unremarkable. There is no intra or extrahepatic biliary dilatation. Pancreas: The pancreas is homogeneous without evidence for mass lesion or inflammation. Spleen: The spleen is unremarkable without evidence for mass lesion. Adrenal glands: The adrenal glands are unremarkable Kidneys and bladder: The kidneys are unremarkable with no evidence for mass lesion, hydronephrosis or inflammation. The ureters demonstrate normal caliber. The urinary bladder is unremarkable. GI Tract: Status post Kelsea fundoplication. Visualized small bowel is unremarkable without evidence for obstruction or active inflammation. The appendix is unremarkable.Wall thickening throughout the colon. Reproductive: Unremarkable Lymph nodes: No retroperitoneal or abdominal lymphadenopathy. Vascular: The aorta is not dilated. Mesenteric, renal and iliac arteries are patent. Peritoneum: No free intraperitoneal air or fluid. No acute inflammation. Abdominal wall: No acute findings CT/CT abdomen pelvis w con IMPRESSION: Wall thickening throughout the colon suggesting inflammatory or infectious colitis. C. Difficile colitis is considered. Chronic bilateral lower lung bronchiectasis. Stable nodule at the left lung base. Electronically authenticated by: ISSA LOWRY Date: 02/02/2024 21:19
[2024-02-02 20:19] LABS: Basophils Absolute Auto 0.1 10^3/uL (0.0-0.1); Basophils Percent Auto 1.4 % (0.2-2.0); Eosinophils Absolute Auto 0.2 10^3/uL (0.0-0.7); Eosinophils Percent Auto 2.5 % (0.9-7.0); Hematocrit 46.7 % (42.0-54.0); Hemoglobin 15.7 g/dL (14.0-18.0); Immature Granulocytes Abs Auto 0.02 10^3/uL (0.00-0.03); Immature Granulocytes Pct Auto 0.3 % (0.0-0.5); Lymphocytes Absolute Auto 1.9 10^3/uL (1.2-3.8); Lymphocytes Percent Auto 24.2 % (20.5-60.0); Mean Corpuscular HGB Conc 33.6 g/dL (29.9-35.2); Mean Corpuscular Hemoglobin 29.4 pg (25.9-34.0); Mean Corpuscular Volume 87.5 fL (80.0-94.0); Mean Platelet Volume 11.2 fL (9.5-13.5); Monocytes Absolute Auto 0.8 10^3/uL (0.3-0.8); Monocytes Percent Auto 9.8 % (1.7-12.0); Neutrophils Absolute Auto 4.9 10^3/uL (1.4-6.5); Neutrophils Percent Auto 61.8 % (43.0-75.0); Platelet Count 275 10^3/uL (150-450); Red Blood Count 5.34 10^6/uL (4.70-6.10); Red Cell Distribution Width 12.5 % (11.0-15.0); White Blood Count 7.9 10^3/uL (4.0-11.0)
[2024-02-02 20:19] LABS: Bilirubin Urine NEGATIVE (NEGATIVE); Blood Urine NEGATIVE (NEGATIVE); Clarity Urine CLEAR (CLEAR); Color Urine YELLOW (YELLOW); Glucose Urine UA NEGATIVE (NEGATIVE); Ketones Urine NEGATIVE (NEGATIVE); Leukocyte Esterase Urine NEGATIVE (NEGATIVE); Nitrite Urine NEGATIVE (NEGATIVE); Protein Urine NEGATIVE (NEG/TRACE); Specific Gravity Urine 1.025 (1.005-1.025); Urobilinogen Urine 0.2 EU/dL (0.2-1.0); pH Urine 6.5 (5.0-9.0)
[2024-02-02 20:22] LABS: Urine Microscopic Indicated NO
[2024-02-02 20:36] LABS: Alanine Aminotransferase 23 U/L (16-63); Albumin Globulin Ratio 1.2; Albumin Level 3.8 g/dL (3.4-5.0); Alkaline Phosphatase 100 U/L (46-116); Aspartate Amino Transferase 13 U/L (15-37); BUN Creatinine Ratio 10.9; Bilirubin Total 0.6 mg/dL (0.2-1.0); Calcium 8.6 mg/dL (8.5-10.1); Carbon Dioxide 27.9 mmol/L (21.0-32.0); Chloride 103 mmol/L (98-107); Estimated GFR (African America >60 (>=60); Estimated GFR (Non-African Ame >60 (>=60); Globulin 3.1 g/dL; Glucose 94 mg/dL (74-106); Potassium 3.9 mmol/L (3.5-5.1); Sodium 139 mmol/L (136-145); Total Protein 6.9 g/dL (6.4-8.2)
[2024-02-02 20:39] LABS: Lactate/Lactic Acid 1.2 mmol/L (0.4-2.0)
[2024-02-02] MEDS: METRONIDAZOLE 250 MG TABLET 500 MG PO ×2 (21:59→23:03)
[2024-02-02] MEDS: KETOROLAC TROMETHAMINE 30 MG/ML VIAL IVP (21:59)
[2024-02-02] MEDS: ONDANSETRON PF 4 MG/2 ML VIAL IV (22:06)
[2024-02-02] MEDS: KETOROLAC TROMETHAMINE 10 MG TABLET PO (23:03)
[2024-02-02] MEDS: HYDROCODONE/ACET 5-325 MG TABLET 2 TAB PO (23:27)
[2024-02-04 16:11] LABS: C. Difficile PCR NEGATIVE (NEGATIVE)
[2024-02-05 14:10] LABS: Cryptosporidium EIA Negative (Negative); Giardia lamblia Ag, EIA Negative (Negative)
== END 2024-02-02 23:32 | disposition home or self-care (01) ==
PROVIDERS: Emergency Provider Internal Medicine; PCP Nurse Practitioner Family
DX: K52.9 Noninfective gastroenteritis and colitis, unspecified (principal); F17.290 Nicotine dependence, other tobacco product, uncomplicated
CPT/HCPCS: 36415; 74177; 80053; 81003; 83605; 85025; 87045; 87046; 87328; 87329; 87427; 87493; 96374; 96375; 99285; J1885; J2405; Q9967

== ENCOUNTER 2024-02-06 10:47 | Emergency (ER) | payer MEDICARE, MEDICAID, SELFPAY ==
[2024-02-06 10:56] VITALS: BP 108/79; PULSE 80; TEMP 37.1; O2SAT 92; BMI 22.1
[2024-02-06 11:18] LABS: Bilirubin Urine NEGATIVE (NEGATIVE); Blood Urine NEGATIVE (NEGATIVE); Clarity Urine CLEAR (CLEAR); Color Urine YELLOW (YELLOW); Glucose Urine UA NEGATIVE (NEGATIVE); Ketones Urine NEGATIVE (NEGATIVE); Leukocyte Esterase Urine NEGATIVE (NEGATIVE); Nitrite Urine NEGATIVE (NEGATIVE); Protein Urine NEGATIVE (NEG/TRACE); Specific Gravity Urine >=1.030 (1.005-1.025); Urobilinogen Urine 0.2 EU/dL (0.2-1.0); pH Urine 5.5 (5.0-9.0)
[2024-02-06] MEDS: AZITHROMYCIN 250 MG TABLET 1000 MG PO (11:22)
--- NOTE | 2024-02-06 11:22 | ED.GENADUL1 ---
HPI HPI - General Adult General Chief complaint: Urogenital-Male Stated complaint: UTI COMPLAINTS/BACK PAIN Time Seen by Provider: 02/06/24 10:51 Source: patient Mode of arrival: walk-in Limitations: no limitations History of Present Illness HPI narrative: Patient presents ED complaining of probable STD exposure. He thinks he may have chlamydia. He says he has pain in the lower abdomen and testicle area. No abnormal discharge. No rectal pain. No sores noted on the penis. He said he has had chlamydia 1 other time in the past and this feels similar. No fevers nausea or vomiting. Related Data Home Medications ?Medication ?Instructions ?Recorded ?Confirmed trazodone 50 mg tablet 50 mg PO BEDTIME 09/13/23 02/06/24 escitalopram oxalate 10 mg tablet 10 mg PO .qd 01/09/24 02/06/24 Previous Rx's ?Medication ?Instructions ?Recorded albuterol sulfate 2.5 mg/3 mL 2.5 mg (3 mL) inhalation Q6H PRN 05/25/23 (0.083 %) solution for nebulization shortness of breath or wheezing #75 mL albuterol sulfate 90 mcg/actuation 2 puff inhalation Q6H PRN 05/25/23 aerosol inhaler shortness of breath or wheezing #0 grams Allergies Allergy/AdvReac Type Severity Reaction Status Date / Time Penicillins Allergy Intermediate Hives Verified 02/06/24 10:56 Opioid HPI Opioid Management Most Recent Opioid Data: Last Pain Scale 10 01/30/24 22:31 Last ED Pain Assessment 01/30/24 22:26 Last ORT Total Score 11 01/09/24 14:30 Last ORT Risk Category High Risk 01/09/24 14:30 Review of Systems ROS Status of ROS 10 or more systems reviewed and unremarkable except as noted in history and below [facility] Medical History (Updated 02/06/24 @ 11:35 by Aneta Sánchez DO) Steroid-induced hyperglycemia ?R73.9 - Hyperglycemia, unspecified (ICD-10) ?T38.0X5A - Adverse effect of glucocorticoids and synthetic analogues, initial encounter (ICD-10) Hyponatremia ?E87.1 - Hypo-osmolality and hyponatremia (ICD-10) Chest wall pain ?R07.89 - Other chest pain (ICD-10) Pneumonia ?J18.9 - Pneumonia, unspecified organism (ICD-10) Bronchiectasis with acute exacerbation ?J47.1 - Bronchiectasis with (acute) exacerbation (ICD-10) Malnutrition of moderate degree ?E44.0 - Moderate protein-calorie malnutrition (ICD-10) Depression ?F32.A - Depression, unspecified (ICD-10) Bronchiectasis ?J47.9 - Bronchiectasis, uncomplicated (ICD-10) Chronic respiratory failure with hypoxia ?J96.11 - Chronic respiratory failure with hypoxia (ICD-10) Upper respiratory infection ?J06.9 - Acute upper respiratory infection, unspecified (ICD-10) Acute hypokalemia ?E87.6 - Hypokalemia (ICD-10) Avulsion of skin ?T14.8XXA - Other injury of unspecified body region, initial encounter (ICD-10) Influenza ?J11.1 - Influenza due to unidentified influenza virus with other respiratory manifestations (ICD-10) Marijuana abuse ?F12.10 - Cannabis abuse, uncomplicated (ICD-10) Acute hypoxic respiratory failure ?J96.01 - Acute respiratory failure with hypoxia (ICD-10) Coronavirus infection ?B34.2 - Coronavirus infection, unspecified (ICD-10) Pneumonia ?J18.9 - Pneumonia, unspecified organism (ICD-10) Hospital-acquired bacterial pneumonia ?J15.9 - Unspecified bacterial pneumonia (ICD-10) Bronchiectasis with acute lower respiratory infection ?J47.0 - Bronchiectasis with acute lower respiratory infection (ICD-10) Leukocytosis ?D72.829 - Elevated white blood cell count, unspecified (ICD-10) COVID-19 ?U07.1 - COVID-19 (ICD-10) GERD (gastroesophageal reflux disease) ?K21.9 - Gastro-esophageal reflux disease without esophagitis (ICD-10) 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34 - 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) History of gastrostomy tube placement 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 (ICD-10) Pneumonia ?J18.9 - Pneumonia, unspecified organism (ICD-10) Abdominal pain ?R10.9 - Unspecified abdominal pain (ICD-10) Abdominal pain, acute ?R10.9 - Unspecified abdominal pain (ICD-10) Surgical History History of fundoplication ?Z98.890 - Other specified postprocedural states (ICD-10) History of appendectomy ?Z90.49 - Acquired absence of other specified parts of digestive tract (ICD-10) H/O chest tube placement ?Z98.890 - Other specified postprocedural states (ICD-10) History of facial surgery ?Z98.890 - Other specified postprocedural states (ICD-10) Family History Mother Family history of diabetes mellitus Family history of hypertension Grandmother Family history of diabetes mellitus Grandfather Family history of myocardial infarction Social History (Updated 01/09/24 @ 15:01 by Parris Rowland) Within the past year, how often did you have a drink containing alcohol: 2-4 times a month Within the past year, how many standard drinks containing alcohol did you have on a typical day: 1 or 2 Within the past year, how often did you have six or more drinks on one occasion: weekly Total score: 3 Score interpretation: A score of 4 or more indicates drinking is likely to affect patient's safety. 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 Known occupational exposures/hazards: No Highest level of school completed/degree received: high school graduate Are you now , , , , never or living with a partner: In a typical week, how many times do you talk on the telephone with family, friends, or neighbors: 3 or more times per week How often do you get together with friends or relatives: once per week How often do you attend methodist or jewish services: never Do you belong to any clubs or organizations such as methodist groups unions, fraternal or athletic groups, or school groups: no Total score: 1 Score interpretation: A score of less than or equal to 1 indicates the most socially isolated. Little interest or pleasure in doing things: not at all Feeling down, depressed, or hopeless: not at all Feel stressed/tense/nervous/anxious/difficulty sleeping: not at all Do you think of yourself as: straight/heterosexual Gender Identity: male Exam Narrative Exam Narrative: General: alert, no acute distress Cardiovascular: regular rate and rhythm, normal peripheral perfusion. Respiratory: Lungs CTA, respirations non labored. Extremities: no deformity, no trauma. Neurological: oriented x 4, LOC appropriate for age. Normal external genitalia. No testicular redness or swelling. No abscesses no open sores. No penile discharge Constitutional Vital Signs, click to edit/add: Last Vital Signs Temp 98.7 F 02/06/24 10:56 Pulse 80 02/06/24 10:56 Resp 18 02/06/24 10:56 BP 108/79 02/06/24 10:56 Pulse Ox 92 L 02/06/24 10:56 O2 Del Method Room Air 02/06/24 10:56 Course Vital Signs Vital signs: Vital Signs Temperature 98.7 F 02/06/24 10:56 Pulse Rate 80 02/06/24 10:56 Respiratory Rate 18 02/06/24 10:56 Blood Pressure 108/79 02/06/24 10:56 Pulse Oximetry 92 L 02/06/24 10:56 Oxygen Delivery Method Room Air 02/06/24 10:56 Temperature 98.7 F 02/06/24 10:56 Pulse Rate 80 02/06/24 10:56 Respiratory Rate 18 02/06/24 10:56 Blood Pressure 108/79 02/06/24 10:56 Pulse Oximetry 92 L 02/06/24 10:56 Oxygen Delivery Method Room Air 02/06/24 10:56 Medical Decision Making MDM Narrative Medical decision making narrative: Patient's urine was sent for gonorrhea and chlamydia and a UA. Patient was treated here with Rocephin and Zithromax to cover gonorrhea and chlamydia. Results are pending. UA negative. Treated here with Rocephin and azithromycin, return if worsening symptoms otherwise follow-up outpatient. Differential Diagnosis Differential Diagnosis: Gonorrhea chlamydia UTI Lab Data Lab results reviewed: Yes I reviewed the patient's lab results Labs: Lab Results 02/06/24 Range/Units 11:10 Urine Color Yellow (YELLOW) Urine Clarity Clear (CLEAR) Urine pH 5.5 (5.0-9.0) Ur Specific [place] >=1.030 A (1.005-1.025) Urine Protein Negative (NEG/TRACE) mg/dL Urine Glucose (UA) Negative (NEGATIVE) mg/dL Urine Ketones Negative (NEGATIVE) mg/dL Urine Occult Blood Negative (NEGATIVE) Urine Nitrite Negative (NEGATIVE) Urine Bilirubin Negative (NEGATIVE) Urine Urobilinogen 0.2 (0.2-1.0) EU/dL Ur Leukocyte Esterase Negative (NEGATIVE) Discharge Plan Discharge Chief Complaint: Urogenital-Male Clinical Impression: Concern about STD in male without diagnosis Patient Disposition: Home, Self-Care Time of Disposition Decision: 11:35 Condition: Good Mode of Transportation: Private Vehicle Prescriptions / Home Meds: No Action trazodone 50 mg tablet 50 mg PO BEDTIME escitalopram oxalate 10 mg tablet 10 mg PO .qd albuterol sulfate 2.5 mg /3 mL (0.083 %) solution for nebulization 2.5 mg inhalation Q6H PRN (Reason: shortness of breath or wheezing) Qty: 75 0RF albuterol sulfate 90 mcg/actuation HFA aerosol inhaler 2 puff INHALATION Q6H PRN (Reason: shortness of breath or wheezing) Qty: 0 0RF Print Language: [place]at[place] Instructions: Chlamydia (ED) Referrals: REBEKAH BRABOZA [Primary Care Provider] - 1 week Discharge Date/Time: 02/06/24 11:43
[2024-02-06] MEDS: CEFTRIAXONE 500 MG, LIDOCAINE HCL/PF 1 ML IM (11:23)
[2024-02-06 11:32] LABS: Urine Microscopic Indicated NO
[2024-02-08 07:10] LABS: Neisseria gonorrhoeae, NAA Negative (Negative)
== END 2024-02-06 11:43 | disposition home or self-care (01) ==
PROVIDERS: Emergency Provider Emergency Medicine; PCP Nurse Practitioner Family
DX: Z20.2 Contact with and (suspected) exposure to infections with a predominantly sexual mode of transmission (principal); F17.290 Nicotine dependence, other tobacco product, uncomplicated; R10.30 Lower abdominal pain, unspecified; N50.819 Testicular pain, unspecified
CPT/HCPCS: 81003; 87491; 87591; 96372; 99284; J0696

== ENCOUNTER 2024-02-13 01:01 | Emergency (ER) | payer MEDICARE, MEDICAID, SELFPAY ==
[2024-02-13] VITALS (19 sets, daily range): BP systolic 109–122; BP diastolic 74–85; PULSE 70–92; TEMP 36.6; O2SAT 92–97; BMI 21.1
--- NOTE | 2024-02-13 01:25 | XR_ITS ---
The [address] [address] Patient Name: FRANCIS GALVEZ MRN: [id number] date: 1990 Sex: M Assigned Patient Location: ER Current Patient Location: Accession/Order Number: [id number] Exam Date: 02/13/2024 01:45 Report Date: 02/13/2024 06:53 At the request of: CHILANGO MARKER Procedure: XR chest 2V EXAM: XR chest 2V HISTORY: SOB COMPARISON: Chest x-ray, 01/22/2024 TECHNIQUE: Frontal and lateral chest x-rays. FINDINGS: The heart appears small but unchanged. The mediastinal contour and pulmonary vascularity are within normal limits. Chronic right infrahilar opacity is unchanged. Chronic blunting of left costophrenic angle is likewise stable favoring chronic pleural thickening. No acute pulmonary abnormality is seen. The bony thorax remains intact. XR/XR chest 2V IMPRESSION: No acute cardiopulmonary disease or interval change from last month's exam. Chronic right middle lobe pleural thickening and parenchymal scarring and mild chronic blunting of the left costophrenic angle favoring pleural thickening remain unchanged. Electronically authenticated by: LADONNA CRUZ Date: 02/13/2024 06:53
--- NOTE | 2024-02-13 01:26 | ED.ARRPALP1 ---
HPI - Arrhythmia/Palpitations General Chief Complaint: Arrhythmia/Palpitations Stated Complaint: anxiety Time Seen by Provider: 02/13/24 01:16 Source: patient Mode of arrival: ambulance Limitations: no limitations History of Present Illness HPI narrative: This 33-year-old male, smoker with a history of bronchiectasis and hypoxia who wears oxygen at night because his pulse ox drops into the 80s presents for evaluation of palpitations. The patient states he was admitted to [facility] for the past 3 days for his colitis. That is resolving and he went home tonight and had a big meal. After that he took a trazodone that he has not taken in a while and tried to fall asleep but started becoming anxious and felt like his heart was racing. He states he feels like he is only breathing out of 1 side of his lung. He has not had a fever. He continues to smoke. He denies any dizziness diaphoresis or syncope. His GI symptoms are resolving after his treatment at [facility]. He denies any abdominal pain at this time. His streaming media specialist are at [facility], Dr. Mac and Dr Fuller Related Data Home Medications ?Medication ?Instructions ?Recorded ?Confirmed trazodone 50 mg tablet 50 mg PO BEDTIME 09/13/23 02/13/24 escitalopram oxalate 10 mg tablet 10 mg PO .qd 01/09/24 02/13/24 ciprofloxacin HCl 500 mg tablet 500 mg PO Q12H 02/13/24 02/13/24 metronidazole 500 mg tablet 500 mg PO Q8H 02/13/24 02/13/24 Previous Rx's ?Medication ?Instructions ?Recorded albuterol sulfate 2.5 mg/3 mL 2.5 mg (3 mL) inhalation Q6H PRN 05/25/23 (0.083 %) solution for nebulization shortness of breath or wheezing #75 mL Allergies Allergy/AdvReac Type Severity Reaction Status Date / Time Penicillins Allergy Intermediate Hives Verified 02/13/24 01:07 Review of Systems ROS Status of ROS 10 or more systems reviewed and unremarkable except as noted in history and below [facility] Medical History (Updated 02/13/24 @ 03:47 by Rani Cam MD) Steroid-induced hyperglycemia ?R73.9 - Hyperglycemia, unspecified (ICD-10) ?T38.0X5A - Adverse effect of glucocorticoids and synthetic analogues, initial encounter (ICD-10) Hyponatremia ?E87.1 - Hypo-osmolality and hyponatremia (ICD-10) Chest wall pain ?R07.89 - Other chest pain (ICD-10) Pneumonia ?J18.9 - Pneumonia, unspecified organism (ICD-10) Bronchiectasis with acute exacerbation ?J47.1 - Bronchiectasis with (acute) exacerbation (ICD-10) Malnutrition of moderate degree ?E44.0 - Moderate protein-calorie malnutrition (ICD-10) Depression ?F32.A - Depression, unspecified (ICD-10) Bronchiectasis ?J47.9 - Bronchiectasis, uncomplicated (ICD-10) Chronic respiratory failure with hypoxia ?J96.11 - Chronic respiratory failure with hypoxia (ICD-10) Upper respiratory infection ?J06.9 - Acute upper respiratory infection, unspecified (ICD-10) Acute hypokalemia ?E87.6 - Hypokalemia (ICD-10) Avulsion of skin ?T14.8XXA - Other injury of unspecified body region, initial encounter (ICD-10) Influenza ?J11.1 - Influenza due to unidentified influenza virus with other respiratory manifestations (ICD-10) Marijuana abuse ?F12.10 - Cannabis abuse, uncomplicated (ICD-10) Acute hypoxic respiratory failure ?J96.01 - Acute respiratory failure with hypoxia (ICD-10) Coronavirus infection ?B34.2 - Coronavirus infection, unspecified (ICD-10) Pneumonia ?J18.9 - Pneumonia, unspecified organism (ICD-10) Hospital-acquired bacterial pneumonia ?J15.9 - Unspecified bacterial pneumonia (ICD-10) Bronchiectasis with acute lower respiratory infection ?J47.0 - Bronchiectasis with acute lower respiratory infection (ICD-10) Leukocytosis ?D72.829 - Elevated white blood cell count, unspecified (ICD-10) COVID-19 ?U07.1 - COVID-19 (ICD-10) GERD (gastroesophageal reflux disease) ?K21.9 - Gastro-esophageal reflux disease without esophagitis (ICD-10) 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34 - 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) History of gastrostomy tube placement 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 (ICD-10) Pneumonia ?J18.9 - Pneumonia, unspecified organism (ICD-10) Abdominal pain ?R10.9 - Unspecified abdominal pain (ICD-10) Abdominal pain, acute ?R10.9 - Unspecified abdominal pain (ICD-10) Surgical History History of fundoplication ?Z98.890 - Other specified postprocedural states (ICD-10) History of appendectomy ?Z90.49 - Acquired absence of other specified parts of digestive tract (ICD-10) H/O chest tube placement ?Z98.890 - Other specified postprocedural states (ICD-10) History of facial surgery ?Z98.890 - Other specified postprocedural states (ICD-10) Family History Mother Family history of diabetes mellitus Family history of hypertension Grandmother Family history of diabetes mellitus Grandfather Family history of myocardial infarction Social History (Updated 01/09/24 @ 15:01 by Parris Rowland) Within the past year, how often did you have a drink containing alcohol: 2-4 times a month Within the past year, how many standard drinks containing alcohol did you have on a typical day: 1 or 2 Within the past year, how often did you have six or more drinks on one occasion: weekly Total score: 3 Score interpretation: A score of 4 or more indicates drinking is likely to affect patient's safety. 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 Known occupational exposures/hazards: No Highest level of school completed/degree received: high school graduate Are you now , , , , never or living with a partner: In a typical week, how many times do you talk on the telephone with family, friends, or neighbors: 3 or more times per week How often do you get together with friends or relatives: once per week How often do you attend orthodox or druze services: never Do you belong to any clubs or organizations such as orthodox groups unions, [employer] or athletic groups, or school groups: no Total score: 1 Score interpretation: A score of less than or equal to 1 indicates the most socially isolated. Little interest or pleasure in doing things: not at all Feeling down, depressed, or hopeless: not at all Feel stressed/tense/nervous/anxious/difficulty sleeping: not at all Do you think of yourself as: straight/heterosexual Gender Identity: male Exam Narrative Exam Narrative: Vital signs and Nursing Notes reviewed: Patient is afebrile with a normal blood pressure, normal pulse, he is not hypoxic with pulse ox of 97% on 3 L nasal cannula-likely his baseline General: Awake, alert, oriented, no acute distress, lying comfortably on the stretcher, speaking in complete sentences, no respiratory distress HEENT: Normocephalic atraumatic, mucous membranes are moist and pink, eyes are clear, normal conjunctiva, vision is grossly intact, posterior pharynx is normal in appearance. Neck: Supple, no meningeal signs, no anterior or posterior cervical lymphadenopathy Chest: Coarse breath sounds and popping sounds in both lungs, right greater than left, no accessory muscle use, patient is speaking in complete sentences CVS: Regular rate and rhythm S1-S2, no murmurs rubs or gallops, pulses are brisk and equal bilaterally ABD: Soft, nondistended, nontender, no rebound guarding or rigidity, bowel sounds are normal, no pulsatile masses appreciated Extremities: Moving all extremities, no lower extremity tenderness or swelling noted, negative Homans' sign, pulses are brisk and equal bilaterally Skin: Normal in appearance without rash,pallor, petechiae or purpura Neuro: No focal deficits Constitutional Vital Signs, click to edit/add: Last Vital Signs Temp 98 F 02/13/24 01:02 Pulse 77 02/13/24 03:50 Resp 26 H 02/13/24 03:50 BP 109/74 02/13/24 03:30 Pulse Ox 95 02/13/24 03:50 O2 Del Method Nasal Cannula 02/13/24 01:18 O2 Flow Rate 3 02/13/24 01:18 Course Vital Signs Vital signs: Vital Signs Temperature 98 F 02/13/24 01:02 Pulse Rate 74 02/13/24 01:02 Respiratory Rate 18 02/13/24 01:02 Blood Pressure 114/76 02/13/24 01:02 Pulse Oximetry 97 02/13/24 01:02 Oxygen Delivery Method Room Air 02/13/24 01:02 Temperature 98 F 02/13/24 01:02 Pulse Rate 77 02/13/24 03:50 Respiratory Rate 26 H 02/13/24 03:50 Blood Pressure 109/74 02/13/24 03:30 Pulse Oximetry 95 02/13/24 03:50 Oxygen Delivery Method Nasal Cannula 02/13/24 01:18 Oxygen Delivery Flow Rate 3 02/13/24 01:18 MDM - Arrhythmia/Palpitations MDM Narrative Medical decision making narrative: This 33-year-old male with a history of anxiety, colitis, chronic pulmonary issues including bronchiectasis who wears supplemental oxygen at night and was recently admitted for 2 to 3 days at [facility] for colitis is brought to the emergency department by EMS from home for evaluation of palpitations and anxiety. The patient states he has not been taking his trazodone since he has been hospitalized and tonight he took a trazodone and fell asleep and woke up feeling like he was having palpitations. EMS was called and he was brought to the hospital. An EKG done upon arrival was a sinus rhythm with right ventricular hypertrophy and otherwise no acute findings. He admitted that he felt very anxious. He was given a dose of Ativan and a cardiac workup was ordered. He has a normal white count and hemoglobin. Electrolytes are normal with the exception of a mildly low potassium at 3.0. He has a normal troponin. Chest x-ray is consistent with his typical chest x-ray findings of hyperinflation without any acute pulmonary infiltrate pneumothorax or widened mediastinum. After the Ativan he was able to rest and fall asleep and on reevaluation he was feeling better and discharged home with his girlfriend. Remained hemodynamically stable without any ectopy or arrhythmia on the monitor. Medical Records Attestation: I reviewed the patient's medical records. Lab Data Attestation: I reviewed the patient's lab results. Labs: Lab Results 02/13/24 Range/Units 01:10 WBC 10.2 (4.0-11.0) 10^3/uL RBC 4.89 (4.70-6.10) 10^6/uL Hgb 14.5 (14.0-18.0) g/dL Hct 42.8 (42.0-54.0) % MCV 87.5 (80.0-94.0) fL MCH 29.7 (25.9-34.0) pg MCHC 33.9 (29.9-35.2) g/dL RDW 12.8 (11.0-15.0) % Plt Count 253 (150-450) 10^3/uL MPV 11.8 (9.5-13.5) fL Neut % (Auto) 71.9 (43.0-75.0) % Lymph % (Auto) 17.0 L (20.5-60.0) % Flagler % (Auto) 9.2 (1.7-12.0) % Eos % (Auto) 0.8 L (0.9-7.0) % Baso % (Auto) 0.7 (0.2-2.0) % Neut # (Auto) 7.3 H (1.4-6.5) 10^3/uL Lymph # (Auto) 1.7 (1.2-3.8) 10^3/uL Flagler # (Auto) 0.9 H (0.3-0.8) 10^3/uL Eos # (Auto) 0.1 (0.0-0.7) 10^3/uL Baso # (Auto) 0.1 (0.0-0.1) 10^3/uL Abs Immat Gran (auto) 0.04 H (0.00-0.03) 10^3/uL Imm/Tot Granulo (auto) 0.4 (0.0-0.5) % Sodium 138 (136-145) mmol/L Potassium 3.0 L (3.5-5.1) mmol/L Chloride 102 (98-107) mmol/L Carbon Dioxide 30.7 (21.0-32.0) mmol/L Anion Gap 8.3 BUN 13.0 (7.0-18.0) mg/dL Creatinine 0.98 (0.70-1.30) mg/dL Est GFR ( Amer) >60 (>=60) Est GFR (Non-Af Amer) >60 (>=60) BUN/Creatinine Ratio 13.3 Glucose 107 H (74-106) mg/dL Calcium 8.5 (8.5-10.1) mg/dL Total Bilirubin 0.3 (0.2-1.0) mg/dL AST 12 L (15-37) U/L ALT 16 (16-63) U/L Alkaline Phosphatase 84 (46-116) U/L Troponin I High Sens 4.0 (4.0-76.1) pg/mL NT-Pro-B Natriuret Pep 28.0 (<=450.0) pg/mL Total Protein 6.3 L (6.4-8.2) g/dL Albumin 3.7 (3.4-5.0) g/dL Globulin 2.6 g/dL Albumin/Globulin Ratio 1.4 ECG Data Attestation: I personally reviewed and interpreted this ECG as follows: (Sinus rhythm with right ventricular hypertrophy consistent with pulmonary disease, no acute ST segment elevation or T wave inversion) Smoking Cessation Time spent discussing smoking cessation with patient: 3 to 10 minutes Patient Acknowledges Need for Cessation: Yes Discharge Plan Discharge Chief Complaint: Arrhythmia/Palpitations Clinical Impression: Anxiety, Palpitations Patient Disposition: Home, Self-Care Time of Disposition Decision: 03:48 Condition: Good Prescriptions / Home Meds: No Action trazodone 50 mg tablet 50 mg PO BEDTIME escitalopram oxalate 10 mg tablet 10 mg PO .qd ciprofloxacin HCl 500 mg tablet 500 mg PO Q12H metronidazole 500 mg tablet 500 mg PO Q8H albuterol sulfate 2.5 mg /3 mL (0.083 %) solution for nebulization 2.5 mg inhalation Q6H PRN (Reason: shortness of breath or wheezing) Qty: 75 0RF Print Language: Khmer Instructions: Heart Palpitations (ED), Anxiety (ED) Referrals: REBEKAH BARBOZA [Primary Care Provider] - 1 week Discharge Date/Time: 02/13/24 04:18
[2024-02-13] MEDS: LORAZEPAM 0.5 MG TABLET 1 MG PO (01:58)
[2024-02-13 02:02] LABS: Basophils Absolute Auto 0.1 10^3/uL (0.0-0.1); Basophils Percent Auto 0.7 % (0.2-2.0); Eosinophils Absolute Auto 0.1 10^3/uL (0.0-0.7); Eosinophils Percent Auto 0.8 % (0.9-7.0); Hematocrit 42.8 % (42.0-54.0); Hemoglobin 14.5 g/dL (14.0-18.0); Immature Granulocytes Abs Auto 0.04 10^3/uL (0.00-0.03); Immature Granulocytes Pct Auto 0.4 % (0.0-0.5); Lymphocytes Absolute Auto 1.7 10^3/uL (1.2-3.8); Mean Corpuscular HGB Conc 33.9 g/dL (29.9-35.2); Mean Corpuscular Hemoglobin 29.7 pg (25.9-34.0); Mean Corpuscular Volume 87.5 fL (80.0-94.0); Mean Platelet Volume 11.8 fL (9.5-13.5); Monocytes Absolute Auto 0.9 10^3/uL (0.3-0.8); Monocytes Percent Auto 9.2 % (1.7-12.0); Neutrophils Absolute Auto 7.3 10^3/uL (1.4-6.5); Neutrophils Percent Auto 71.9 % (43.0-75.0); Platelet Count 253 10^3/uL (150-450); Red Blood Count 4.89 10^6/uL (4.70-6.10); Red Cell Distribution Width 12.8 % (11.0-15.0); White Blood Count 10.2 10^3/uL (4.0-11.0)
[2024-02-13 02:25] LABS: Alanine Aminotransferase 16 U/L (16-63); Albumin Globulin Ratio 1.4; Albumin Level 3.7 g/dL (3.4-5.0); Alkaline Phosphatase 84 U/L (46-116); Anion Gap 8.3; Aspartate Amino Transferase 12 U/L (15-37); BUN Creatinine Ratio 13.3; Bilirubin Total 0.3 mg/dL (0.2-1.0); Calcium 8.5 mg/dL (8.5-10.1); Carbon Dioxide 30.7 mmol/L (21.0-32.0); Chloride 102 mmol/L (98-107); Estimated GFR (African America >60 (>=60); Estimated GFR (Non-African Ame >60 (>=60); Globulin 2.6 g/dL; Glucose 107 mg/dL (74-106); Sodium 138 mmol/L (136-145); Total Protein 6.3 g/dL (6.4-8.2)
--- NOTE | 2024-02-13 03:41 | ECG_ITS ---
[facility] Test Date: 2024-02-13 Pat Name: FRANCIS GALVEZ Department: Room: - Gender: Male F[employer] Disp[employer]er: : 1990 Requested By: REBEKAH BARBOZA Order Number: [id number] Reading MD: CAROL ANN WOODALL Measurements Intervals Loop Rate: 84 P: 63 RI: 128 QRS: 174 QRSD: 84 T: 66 QT: 350 QTc: 391 Interpretive Statements 1100 Sinus rhythm 5130 Right ventricular hypertrophy 8003 Consistent with pulmonary disease 9150 abnormal ECG Compared to ECG 01/30/2024 20:54:03 Right ventricular hypertrophy now present Left posterior fascicular block no longer present Electronically Signed On 02-15-2024 18:32:28 EDT by CAROL ANN WOODALL
== END 2024-02-13 04:18 | disposition home or self-care (01) ==
PROVIDERS: Emergency Provider Emergency Medicine; PCP Nurse Practitioner Family
DX: R00.2 Palpitations (principal); F41.9 Anxiety disorder, unspecified; J47.9 Bronchiectasis, uncomplicated; Z99.81 Dependence on supplemental oxygen; F17.290 Nicotine dependence, other tobacco product, uncomplicated
CPT/HCPCS: 36415; 71046; 80053; 83880; 84484; 85025; 93005; 99285

== ENCOUNTER 2024-02-24 10:00 | Observation (INO) | payer MEDICARE, MEDICAID, SELFPAY ==
[2024-02-24] VITALS (15 sets, daily range): BP systolic 105–132; BP diastolic 59–82; PULSE 90–111; TEMP 36.4–37.4; O2SAT 90–95; BMI 22.1; BMI 22.0
--- NOTE | 2024-02-24 10:14 | XR_ITS ---
The [address] [address] Patient Name: FRANCIS GALVEZ MRN: [id number] date: 1990 Sex: M Assigned Patient Location: ER Current Patient Location: ER Accession/Order Number: [id number] Exam Date: 02/24/2024 11:00 Report Date: 02/24/2024 11:37 At the request of: MARK NIETO Procedure: XR chest 1V EXAM: XR chest 1V HISTORY: cough COMPARISON: Chest radiograph 02/13/2024, 01/12/2024, chest CT 01/10/2024 TECHNIQUE: Chest portable AP 1 view FINDINGS: Lungs are hyperinflated with background of emphysema and biapical scarring. There is bilateral perihilar, right middle lobe, and left lower lobe infrahilar consolidation with significant bronchiectasis. Small area of peripheral lateral right upper lobe consolidation. Findings of the right perihilar region slightly worse from 02/13/2024 but otherwise unchanged. Small left effusion. No pneumothorax. Heart size normal. No pericardial effusion. XR/XR chest 1V IMPRESSION: 1. Chronic obstructive pulmonary disease with chronic bilateral perihilar, right middle lobe, left lower lobe infrahilar consolidation with significant bronchiectasis, presumably from chronic infection. Findings appear to be slightly worse in the right perihilar region compared with radiograph 02/13/2024 but otherwise appearance of lungs unchanged. Continued clinical radiographic follow-up recommended. 2. Small area of lateral right upper lobe perihilar consolidation, stable from 02/13/2024. 3. Small chronic left effusion. Electronically authenticated by: CAROLINA VYAS Date: 02/24/2024 11:37
--- NOTE | 2024-02-24 10:15 | ED.GENADUL1 ---
HPI HPI - General Adult General Chief complaint: Shortness of Breath/Dyspnea Stated complaint: COUGH, SOB Time Seen by Provider: 02/24/24 10:09 Source: patient Mode of arrival: ambulance Limitations: no limitations History of Present Illness HPI narrative: 33-year-old male presents for cough. He states for the past 2 days he has been coughing up green phlegm and he feels short of breath. He is a smoker and has asthma. He was treated for colitis last week but he does not have any abdominal pain, that issue is resolved. Related Data Home Medications ?Medication ?Instructions ?Recorded ?Confirmed trazodone 50 mg tablet 50 mg PO BEDTIME 09/13/23 02/24/24 escitalopram oxalate 10 mg tablet 10 mg PO .qd 01/09/24 02/24/24 metronidazole 500 mg tablet 500 mg PO Q8H 02/13/24 02/24/24 Previous Rx's ?Medication ?Instructions ?Recorded albuterol sulfate 2.5 mg/3 mL 2.5 mg (3 mL) inhalation Q6H PRN 05/25/23 (0.083 %) solution for nebulization shortness of breath or wheezing #75 mL Allergies Allergy/AdvReac Type Severity Reaction Status Date / Time Penicillins Allergy Intermediate Hives Verified 02/24/24 10:02 Opioid HPI Opioid Management Most Recent Opioid Data: Last Pain Scale 10 01/30/24 22:31 Last ORT Total Score 11 01/09/24 14:30 Last ORT Risk Category High Risk 01/09/24 14:30 Review of Systems ROS Narrative A ten point review of systems is negative except as noted above. [facility] Medical History (Updated 02/24/24 @ 11:49 by Bib Chang MD) Steroid-induced hyperglycemia ?R73.9 - Hyperglycemia, unspecified (ICD-10) ?T38.0X5A - Adverse effect of glucocorticoids and synthetic analogues, initial encounter (ICD-10) Hyponatremia ?E87.1 - Hypo-osmolality and hyponatremia (ICD-10) Chest wall pain ?R07.89 - Other chest pain (ICD-10) Pneumonia ?J18.9 - Pneumonia, unspecified organism (ICD-10) Bronchiectasis with acute exacerbation ?J47.1 - Bronchiectasis with (acute) exacerbation (ICD-10) Malnutrition of moderate degree ?E44.0 - Moderate protein-calorie malnutrition (ICD-10) Depression ?F32.A - Depression, unspecified (ICD-10) Bronchiectasis ?J47.9 - Bronchiectasis, uncomplicated (ICD-10) Chronic respiratory failure with hypoxia ?J96.11 - Chronic respiratory failure with hypoxia (ICD-10) Upper respiratory infection ?J06.9 - Acute upper respiratory infection, unspecified (ICD-10) Acute hypokalemia ?E87.6 - Hypokalemia (ICD-10) Avulsion of skin ?T14.8XXA - Other injury of unspecified body region, initial encounter (ICD-10) Influenza ?J11.1 - Influenza due to unidentified influenza virus with other respiratory manifestations (ICD-10) Marijuana abuse ?F12.10 - Cannabis abuse, uncomplicated (ICD-10) Acute hypoxic respiratory failure ?J96.01 - Acute respiratory failure with hypoxia (ICD-10) Coronavirus infection ?B34.2 - Coronavirus infection, unspecified (ICD-10) Pneumonia ?J18.9 - Pneumonia, unspecified organism (ICD-10) Hospital-acquired bacterial pneumonia ?J15.9 - Unspecified bacterial pneumonia (ICD-10) Bronchiectasis with acute lower respiratory infection ?J47.0 - Bronchiectasis with acute lower respiratory infection (ICD-10) Leukocytosis ?D72.829 - Elevated white blood cell count, unspecified (ICD-10) COVID-19 ?U07.1 - COVID-19 (ICD-10) GERD (gastroesophageal reflux disease) ?K21.9 - Gastro-esophageal reflux disease without esophagitis (ICD-10) 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34 - 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) History of gastrostomy tube placement 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 (ICD-10) Pneumonia ?J18.9 - Pneumonia, unspecified organism (ICD-10) Abdominal pain ?R10.9 - Unspecified abdominal pain (ICD-10) Abdominal pain, acute ?R10.9 - Unspecified abdominal pain (ICD-10) Surgical History History of fundoplication ?Z98.890 - Other specified postprocedural states (ICD-10) History of appendectomy ?Z90.49 - Acquired absence of other specified parts of digestive tract (ICD-10) H/O chest tube placement ?Z98.890 - Other specified postprocedural states (ICD-10) History of facial surgery ?Z98.890 - Other specified postprocedural states (ICD-10) Family History Mother Family history of diabetes mellitus Family history of hypertension Grandmother Family history of diabetes mellitus Grandfather Family history of myocardial infarction Social History (Updated 01/09/24 @ 15:01 by Parris Rowland) Within the past year, how often did you have a drink containing alcohol: 2-4 times a month Within the past year, how many standard drinks containing alcohol did you have on a typical day: 1 or 2 Within the past year, how often did you have six or more drinks on one occasion: weekly Total score: 3 Score interpretation: A score of 4 or more indicates drinking is likely to affect patient's safety. 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 Known occupational exposures/hazards: No Highest level of school completed/degree received: high school graduate Are you now , , , , never or living with a partner: In a typical week, how many times do you talk on the telephone with family, friends, or neighbors: 3 or more times per week How often do you get together with friends or relatives: once per week How often do you attend spiritism or hindu services: never Do you belong to any clubs or organizations such as spiritism groups unions, fraternal or athletic groups, or school groups: no Total score: 1 Score interpretation: A score of less than or equal to 1 indicates the most socially isolated. Little interest or pleasure in doing things: not at all Feeling down, depressed, or hopeless: not at all Feel stressed/tense/nervous/anxious/difficulty sleeping: not at all Do you think of yourself as: straight/heterosexual Gender Identity: male Exam Narrative Exam Narrative: Nurses note and vital signs reviewed and patient is not hypoxic. General: The patient appears in no apparent distress. Patient is resting comfortably on cart. Skin: Warm, dry, no pallor noted. There is no rash noted. Head: Normocephalic, atraumatic Eye: Normal conjunctiva, no drainage Ears, Nose, Mouth, and Throat: oral mucosa is moist. Nares patent. Cardiovascular: Regular Rate and Rhythm Respiratory: The patient is not taking in deep breaths. He seems to have some rhonchi. Back: non-tender GI: Soft and nontender Musculoskeletal: The patient has no evidence of calf tenderness, no pitting edema, symmetrical pulses noted bilaterally Neurological: A&O, normal speech Psychiatric: Cooperative Constitutional Vital Signs, click to edit/add: Last Vital Signs Temp 99.3 F 02/24/24 10:03 Pulse 100 H 02/24/24 11:19 Resp 24 H 02/24/24 11:19 BP 117/70 02/24/24 11:19 Pulse Ox 91 L 02/24/24 11:19 O2 Del Method Nasal Cannula 02/24/24 10:24 O2 Flow Rate 2 02/24/24 11:19 Course Vital Signs Vital signs: Vital Signs Temperature 99.3 F 02/24/24 10:03 Pulse Rate 111 H 02/24/24 10:03 Respiratory Rate 24 H 02/24/24 10:03 Blood Pressure 105/62 02/24/24 10:03 Pulse Oximetry 91 L 02/24/24 10:03 Oxygen Delivery Method Room Air 02/24/24 10:03 Temperature 99.3 F 02/24/24 10:03 Pulse Rate 100 H 02/24/24 11:19 Respiratory Rate 24 H 02/24/24 11:19 Blood Pressure 117/70 02/24/24 11:19 Pulse Oximetry 91 L 02/24/24 11:19 Oxygen Delivery Method Nasal Cannula 02/24/24 10:24 Oxygen Delivery Flow Rate 2 02/24/24 11:19 Medical Decision Making MDM Narrative Medical decision making narrative: Chest x-ray is suggestive of increased right perihilar infiltrate. WBC is elevated and COVID and influenza are active. Blood cultures were obtained and lactic acid is pending and he was given IV Zosyn and vancomycin. Findings are discussed with the patient and he is being admitted. Differential Diagnosis Differential Diagnosis: Pneumonia, COVID, influenza, URI Lab Data Lab results reviewed: Yes I reviewed the patient's lab results Labs: Lab Results 02/24/24 02/24/24 Range/Units 10:20 10:40 WBC 23.4 H (4.0-11.0) 10^3/uL RBC 5.25 (4.70-6.10) 10^6/uL Hgb 15.8 (14.0-18.0) g/dL Hct 45.3 (42.0-54.0) % MCV 86.3 (80.0-94.0) fL MCH 30.1 (25.9-34.0) pg MCHC 34.9 (29.9-35.2) g/dL RDW 12.6 (11.0-15.0) % Plt Count 232 (150-450) 10^3/uL MPV 11.7 (9.5-13.5) fL Sodium 137 (136-145) mmol/L Potassium 4.1 (3.5-5.1) mmol/L Chloride 103 (98-107) mmol/L Carbon Dioxide 28.3 (21.0-32.0) mmol/L Anion Gap 9.8 BUN 13.0 (7.0-18.0) mg/dL Creatinine 0.97 (0.70-1.30) mg/dL Est GFR ( Amer) >60 (>=60) Est GFR (Non-Af Amer) >60 (>=60) BUN/Creatinine Ratio 13.4 Glucose 135 H (74-106) mg/dL Calcium 9.0 (8.5-10.1) mg/dL Influenza Type A Ag Negative Influenza Type B Ag Negative SARS-CoV-2 Ag (CV2AG) Negative (NEGATIVE) Imaging Data Chest x-ray: Radiologist's impression: ITS Impressions Chest X-Ray 02/24/24 10:14 IMPRESSION: 1. Chronic obstructive pulmonary disease with chronic bilateral perihilar, right middle lobe, left lower lobe infrahilar consolidation with significant bronchiectasis, presumably from chronic infection. Findings appear to be slightly worse in the right perihilar region compared with radiograph 02/13/2024 but otherwise appearance of lungs unchanged. Continued clinical radiographic follow-up recommended. 2. Small area of lateral right upper lobe perihilar consolidation, stable from 02/13/2024. 3. Small chronic left effusion. Electronically authenticated by: CAROLINA VYAS Date: 02/24/2024 11:37 ECG Data Attestation: I personally reviewed and interpreted this ECG as follows: (EKG on my interpretation shows sinus tachycardia with no acute change.) Discharge Plan Discharge Chief Complaint: Shortness of Breath/Dyspnea Clinical Impression: Pneumonia Patient Disposition: Admitted as Observation Time of Disposition Decision: 11:49 Condition: Fair
--- NOTE | 2024-02-24 10:16 | ECG_ITS ---
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1990 Requested By: REBEKAH BARBOZA Order Number: [id number] Reading MD: CAROL ANN WOODALL Measurements Intervals Saffell Rate: 104 P: 60 MT: 124 QRS: 211 QRSD: 80 T: 72 QT: 326 QTc: 387 Interpretive Statements 1120 Sinus tachycardia 2420 RSR (QR) in lead V1/V2, consistent with right ventricular conduction delay 7100 Abnormal right axis deviation 8003 Consistent with pulmonary disease 9150 abnormal ECG Compared to ECG 02/13/2024 01:04:23 Right-axis deviation now present Sinus rhythm no longer present Right ventricular hypertrophy no longer present Electronically Signed On 02-24-2024 20:36:51 EDT by CAROL ANN WOODALL
[2024-02-24] MEDS: ALBUTEROL SULFATE 2.5 MG/3 ML VIAL NEB IH (10:23)
[2024-02-24 10:48] LABS: Influenza Virus A Antigen Negative; Influenza Virus B Antigen Negative; Internal Control Within Normal Limits
[2024-02-24 10:49] LABS: Internal Control Within Normal Limits; SARS-CoV-2 Ag NEGATIVE (NEGATIVE)
[2024-02-24 10:52] LABS: Hematocrit 45.3 % (42.0-54.0); Hemoglobin 15.8 g/dL (14.0-18.0); Mean Corpuscular HGB Conc 34.9 g/dL (29.9-35.2); Mean Corpuscular Hemoglobin 30.1 pg (25.9-34.0); Mean Corpuscular Volume 86.3 fL (80.0-94.0); Mean Platelet Volume 11.7 fL (9.5-13.5); Platelet Count 232 10^3/uL (150-450); Red Blood Count 5.25 10^6/uL (4.70-6.10); Red Cell Distribution Width 12.6 % (11.0-15.0); White Blood Count 23.4 10^3/uL (4.0-11.0)
[2024-02-24 11:00] LABS: Anion Gap 9.8; BUN Creatinine Ratio 13.4; Carbon Dioxide 28.3 mmol/L (21.0-32.0); Chloride 103 mmol/L (98-107); Estimated GFR (African America >60 (>=60); Estimated GFR (Non-African Ame >60 (>=60); Glucose 135 mg/dL (74-106); Potassium 4.1 mmol/L (3.5-5.1); Sodium 137 mmol/L (136-145)
[2024-02-24 12:11] LABS: Band Neutrophils Absolute 0.2 10^3/uL (0.0-0.3); Basophils Abs Manual 0.23 10^3/uL (0.00-0.10); Monocytes Absolute Manual 0.93 10^3/uL (0.30-0.80); Segmented Neut Absolute Manual 21.29 10^3/uL (1.4-6.5)
[2024-02-24 12:23] LABS: Lactate/Lactic Acid 1.5 mmol/L (0.4-2.0)
[2024-02-24] MEDS: PIPERACILLIN SODIUM/TAZOBACTAM 3.375 GM in 0.9 % SODIUM CHLORIDE 50 ML IV ×2 (12:54→20:13)
--- NOTE | 2024-02-24 14:49 | CT_ITS ---
[facility] [place] [id number] Patient Name: FRANCIS GALVEZ MRN: [id number] date: 1990 Sex: M Assigned Patient Location: [place] Current Patient Location: [place] Accession/Order Number: [id number] Exam Date: 02/24/2024 16:10 Report Date: 02/24/2024 17:39 At the request of: SHAIKH SEGUN Procedure: CT chest wo con CT CHEST WITHOUT CONTRAST. HISTORY: PNA COMPARISON: 05/23/2023 TECHNIQUE: Unenhanced chest CT including axial, sagittal and coronal reformatted images. FINDINGS: LUNGS: Redemonstrated cicatricial atelectasis of the right middle and left lower lobes. Redemonstrated bronchiectatic changes in the lower lungs and bronchial mucous plugging. There are mild groundglass opacities in the right lung similar to prior study. No consolidation. No consolidation. There are no pleural effusions. No pneumothorax. Mediastinum: Distended esophagus. AORTA: No aortic aneurysm. LYMPH NODES: No enlarged mediastinal lymph nodes by CT criteria. HEART: Normal size. No pericardial effusion. UPPER ABDOMEN: The visualized parenchymal organs of the upper abdomen are normal. MUSCULOSKELETAL: Axial skeleton shows no acute abnormality. CT/CT chest wo con IMPRESSION: 1. No evidence of pneumonia. 2. Redemonstrated mild groundglass opacities in the right lung similar to prior study which is nonspecific. 3. Stable cicatricial atelectasis in the right middle and left lower lobes. Redemonstrated bronchiectatic changes and bronchial mucous plugging. Electronically authenticated by: SONYA OHARA Date: 02/24/2024 17:39
--- NOTE | 2024-02-24 14:56 | PM.HP ---
HPI H&P: HPI History of Present Illness Chief complaint: COUGH, SOB, PNEUMONIA Narrative: 33-year-old male with history of chronic bronchiectasis, chronic obstructive lung disease, prior history of tracheoesophageal fistula status post repair presented with worsening shortness of breath, productive sputum since Sunday night. He uses oxygen at night and does not typically require it during daytime. But he could not get his pulse ox above 87% even with oxygen supplementation at 2 L via nasal cannula. He has history of recurrent pneumonia/admission to the hospital and has had multiple rounds of prednisone and antibiotics within past few months. Due to his chronic lung disease and recent antibiotic use/prednisone use, he is at high risk of hospital-acquired pneumonia or pneumonia from resistant organisms. Upon arrival, he was tachypneic with increased work of breathing along with tachycardia. When I evaluated him, he was much comfortable with no evidence of respiratory distress and was comfortably breathing on 1 L of oxygen via nasal cannula. He denies fever, chills, sick contacts. Workup in ER revealed new infiltrate on chest x-ray for which she was started on broad-spectrum antibiotics considering his past medical history and he was admitted for observation to the hospital to continue his medical management. Opioid HPI Opioid Management Most Recent Pain and Opioid Data: Last Pain Scale 10 01/30/24 22:31 Last ORT Total Score 16 02/24/24 13:22 Last ORT Risk Category High Risk 02/24/24 13:22 Review of Systems ROS Status of ROS 10 or more systems reviewed and unremarkable except as noted in history and below [facility] Medical History (Updated 02/24/24 @ 15:01 by Shaikh Lawanda MD) Steroid-induced hyperglycemia ?R73.9 - Hyperglycemia, unspecified (ICD-10) ?T38.0X5A - Adverse effect of glucocorticoids and synthetic analogues, initial encounter (ICD-10) Hyponatremia ?E87.1 - Hypo-osmolality and hyponatremia (ICD-10) Chest wall pain ?R07.89 - Other chest pain (ICD-10) Pneumonia ?J18.9 - Pneumonia, unspecified organism (ICD-10) Bronchiectasis with acute exacerbation ?J47.1 - Bronchiectasis with (acute) exacerbation (ICD-10) Malnutrition of moderate degree ?E44.0 - Moderate protein-calorie malnutrition (ICD-10) Depression ?F32.A - Depression, unspecified (ICD-10) Bronchiectasis ?J47.9 - Bronchiectasis, uncomplicated (ICD-10) Chronic respiratory failure with hypoxia ?J96.11 - Chronic respiratory failure with hypoxia (ICD-10) Upper respiratory infection ?J06.9 - Acute upper respiratory infection, unspecified (ICD-10) Acute hypokalemia ?E87.6 - Hypokalemia (ICD-10) Avulsion of skin ?T14.8XXA - Other injury of unspecified body region, initial encounter (ICD-10) Influenza ?J11.1 - Influenza due to unidentified influenza virus with other respiratory manifestations (ICD-10) Marijuana abuse ?F12.10 - Cannabis abuse, uncomplicated (ICD-10) Acute hypoxic respiratory failure ?J96.01 - Acute respiratory failure with hypoxia (ICD-10) Coronavirus infection ?B34.2 - Coronavirus infection, unspecified (ICD-10) Pneumonia ?J18.9 - Pneumonia, unspecified organism (ICD-10) Hospital-acquired bacterial pneumonia ?J15.9 - Unspecified bacterial pneumonia (ICD-10) COVID-19 ?U07.1 - COVID-19 (ICD-10) GERD (gastroesophageal reflux disease) ?K21.9 - Gastro-esophageal reflux disease without esophagitis (ICD-10) 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34 - 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) History of gastrostomy tube placement 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 (ICD-10) Pneumonia ?J18.9 - Pneumonia, unspecified organism (ICD-10) Abdominal pain ?R10.9 - Unspecified abdominal pain (ICD-10) Abdominal pain, acute ?R10.9 - Unspecified abdominal pain (ICD-10) Surgical History History of fundoplication ?Z98.890 - Other specified postprocedural states (ICD-10) History of appendectomy ?Z90.49 - Acquired absence of other specified parts of digestive tract (ICD-10) H/O chest tube placement ?Z98.890 - Other specified postprocedural states (ICD-10) History of facial surgery ?Z98.890 - Other specified postprocedural states (ICD-10) Family History Mother Family history of diabetes mellitus Family history of hypertension Grandmother Family history of diabetes mellitus Grandfather Family history of myocardial infarction Social History (Updated 01/09/24 @ 15:01 by Parris Rowland) Within the past year, how often did you have a drink containing alcohol: 2-4 times a month Within the past year, how many standard drinks containing alcohol did you have on a typical day: 1 or 2 Within the past year, how often did you have six or more drinks on one occasion: weekly Total score: 3 Score interpretation: A score of 4 or more indicates drinking is likely to affect patient's safety. 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/hazards: No Highest level of school completed/degree received: some college, no degree Are you now , , , , never or living with a partner: In a typical week, how many times do you talk on the telephone with family, friends, or neighbors: 3 or more times per week How often do you get together with friends or relatives: once per week How often do you attend pentecostal or baptist services: never Do you belong to any clubs or organizations such as pentecostal groups unions, fraternal or athletic groups, or school groups: no Total score: 1 Score interpretation: A score of less than or equal to 1 indicates the most socially isolated. Little interest or pleasure in doing things: not at all Feeling down, depressed, or hopeless: not at all Feel stressed/tense/nervous/anxious/difficulty sleeping: not at all Do you think of yourself as: straight/heterosexual Gender Identity: male Meds Home Medications and Allergies Home Medications ?Medication ?Instructions ?Recorded ?Confirmed ?Type albuterol sulfate 2.5 mg/3 mL 2.5 mg (3 mL) inhalation Q6H PRN 05/25/23 02/24/24 Rx (0.083 %) solution for nebulization shortness of breath or wheezing #75 mL trazodone 50 mg tablet 50 mg PO BEDTIME PRN sleep 09/13/23 02/24/24 History escitalopram oxalate 10 mg tablet 10 mg PO .qd 01/09/24 02/24/24 History Allergies Allergy/AdvReac Type Severity Reaction Status Date / Time Penicillins Allergy Intermediate Hives Verified 02/24/24 10:02 Exam Constitutional Vital Signs, click to edit/add: Last Vital Signs Temp 98.3 F 02/24/24 13:22 Pulse 90 02/24/24 13:22 Resp 18 02/24/24 13:22 BP 117/74 02/24/24 13:22 Pulse Ox 90 L 02/24/24 13:22 O2 Del Method Nasal Cannula 02/24/24 13:22 O2 Flow Rate 1 02/24/24 13:22 Common normals: no apparent distress General appearance: cooperative and comfortable Respiratory Common normals: no use of accessory muscles Effort & inspection: able to speak in complete sentences Auscultation: diminished lung sounds Other: No wheezing or rhonchi noted Cardio Common normals: regular rate, regular rhythm, S1 normal heart sound and S2 normal heart sound GI Common normals: Normal to inspection, nondistended, normoactive bowel sounds present, soft to palpation, non-tender and no hepatosplenomegaly Neuro Common normals: oriented x3, moves all extremities and no focal motor deficits Psych Common normals: mental status grossly normal, thought process normal, denies homicidal ideation and denies suicidal ideation Results Labs Labs: Short CBC 02/24/24 Range/Units 10:40 WBC 23.4 H (4.0-11.0) 10^3/uL Hgb 15.8 (14.0-18.0) g/dL Hct 45.3 (42.0-54.0) % Plt Count 232 (150-450) 10^3/uL [facility] 02/24/24 10:40 Sodium 137 Potassium 4.1 Chloride 103 Carbon Dioxide 28.3 BUN 13.0 Creatinine 0.97 Glucose 135 H Calcium 9.0 Assessment and Plan Assessment and Plan (1) Bronchiectasis with acute lower respiratory infection: Assessment and Plan: CT chest ordered for better visualization of lung parenchyma. Started patient on systemic steroids, inhaled bronchodilators. Added saline nebulization to help improve with chest congestion and mucus expectoration On broad-spectrum antibiotics-vancomycin and Zosyn for presumed hospital-acquired pneumonia. Follow-up blood cultures and sputum cultures. (2) Chronic respiratory failure with hypoxia: Assessment and Plan: Typically uses oxygen at night. He is currently on 1 L. More or less at his baseline. (3) Leukocytosis: Assessment and Plan: Presented with leukocytosis of 28,000. Likely secondary to pneumonia. On IV antibiotics. 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 He has resulting scarring/chronic lung disease and is prone to repeated pneumonia because of this.
[2024-02-24] MEDS: SODIUM CHLORIDE 3% INHALATION 15 ML NEB 6 ML IH ×2 (15:29→23:10)
[2024-02-24] MEDS: IPRATROPIUM/ALBUTEROL SULFATE 3 ML AMPUL.NEB IH ×3 (15:30→23:09)
[2024-02-24 16:09] LABS: Glucometer 85 mg/dL (74-106)
[2024-02-24] MEDS: GUAIFENESIN 600 MG TAB.ER.12H PO ×2 (16:31→22:15)
[2024-02-24] MEDS: METHYLPREDNISOLONE SOD SUCC PF 40 MG/ML VIAL IVP ×2 (16:31→22:15)
[2024-02-24] MEDS: LACTATED RINGER'S SOLUTION 1,000 ML 125 ML IV (16:32)
[2024-02-24] MEDS: VANCOMYCIN HCL 1,000 MG in 0.9 % SODIUM CHLORIDE 250 ML 250 MG IV (16:32)
[2024-02-24] MEDS: ENOXAPARIN SODIUM 40 MG/0.4 ML SYRINGE SUBQ (16:32)
[2024-02-24 19:34] LABS: Glucometer 176 mg/dL (74-106)
[2024-02-24] MEDS: INSULIN ASPART 300 UNIT/3 ML PEN SUBQ (21:03)
[2024-02-24] MEDS: TRAZODONE HCL 50 MG TABLET PO (22:15)
[2024-02-24] MEDS: VANCOMYCIN HCL 1,000 MG in 0.9 % SODIUM CHLORIDE 250 ML 200 MG IV (23:06)
[2024-02-25] MEDS: LACTATED RINGER'S SOLUTION 1,000 ML 125 ML IV (02:17)
[2024-02-25 03:49] VITALS: PULSE 96; O2SAT 94
[2024-02-25] MEDS: IPRATROPIUM/ALBUTEROL SULFATE 3 ML AMPUL.NEB IH ×3 (03:49→11:15)
[2024-02-25] MEDS: PIPERACILLIN SODIUM/TAZOBACTAM 3.375 GM in 0.9 % SODIUM CHLORIDE 50 ML IV (04:05)
[2024-02-25 04:39] VITALS: BP 110/66; PULSE 96; TEMP 36.7; O2SAT 94
[2024-02-25] MEDS: METHYLPREDNISOLONE SOD SUCC PF 40 MG/ML VIAL IVP (06:08)
[2024-02-25 06:13] LABS: Basophils Percent Auto 0.1 % (0.2-2.0); Hematocrit 41.1 % (42.0-54.0); Immature Granulocytes Abs Auto 0.04 10^3/uL (0.00-0.03); Immature Granulocytes Pct Auto 0.3 % (0.0-0.5); Lymphocytes Absolute Auto 0.4 10^3/uL (1.2-3.8); Lymphocytes Percent Auto 3.2 % (20.5-60.0); Mean Corpuscular HGB Conc 34.1 g/dL (29.9-35.2); Monocytes Absolute Auto 0.2 10^3/uL (0.3-0.8); Monocytes Percent Auto 1.2 % (1.7-12.0); Neutrophils Absolute Auto 11.8 10^3/uL (1.4-6.5); Neutrophils Percent Auto 95.2 % (43.0-75.0); Platelet Count 202 10^3/uL (150-450); Red Blood Count 4.67 10^6/uL (4.70-6.10); Red Cell Distribution Width 12.9 % (11.0-15.0); White Blood Count 12.4 10^3/uL (4.0-11.0)
[2024-02-25 06:29] LABS: Alanine Aminotransferase 19 U/L (16-63); Alkaline Phosphatase 70 U/L (46-116); Anion Gap 12.9; Aspartate Amino Transferase 11 U/L (15-37); BUN Creatinine Ratio 13.3; Bilirubin Total 0.6 mg/dL (0.2-1.0); Calcium 8.4 mg/dL (8.5-10.1); Carbon Dioxide 24.4 mmol/L (21.0-32.0); Chloride 105 mmol/L (98-107); Estimated GFR (African America >60 (>=60); Estimated GFR (Non-African Ame >60 (>=60); Glucose 211 mg/dL (74-106); Potassium 4.3 mmol/L (3.5-5.1); Sodium 138 mmol/L (136-145)
[2024-02-25] MEDS: SODIUM CHLORIDE 3% INHALATION 15 ML NEB 6 ML IH (07:43)
[2024-02-25 07:44] LABS: Glucometer 170 mg/dL (74-106)
[2024-02-25 07:47] VITALS: PULSE 95; O2SAT 93
[2024-02-25 08:04] VITALS: BP 116/72; PULSE 79; TEMP 36.4; O2SAT 93
--- NOTE | 2024-02-25 08:05 | P.DS_ITS ---
DS: Providers Provider Date of admission: 02/24/24 13:11 Primary care physician: REBEKAH BARBOZA DS: Diagnosis Discharge Diagnosis (1) Bronchiectasis with acute lower respiratory infection: Assessment and plan: Improving at the time of discharge (2) Chronic respiratory failure with hypoxia: Assessment and plan: Improving at the time of discharge (3) Leukocytosis: Assessment and plan: Almost resolved at the time of discharge Qualifiers: Leukocytosis type: unspecified Qualified Code(s): D72.829 - Elevated white blood cell count, unspecified (4) TEF (tracheoesophageal fistula): DS: Summary Hospital Course Hospital Course: Patient presented with increasing cough and shortness of breath, cough productive of greenish sputum. Urine culture is pending. Patient normally wears 3 L of nasal cannula oxygen just at bedtime. He was requiring supplemental oxygen during the day yesterday. So far overnight he has been able to be weaned off of his supplemental oxygen. Plan is to have patient get his IV doses of antibiotics and steroids in this morning. If he is ambulating with no hypoxia this afternoon he can be discharged home in improving condition. Medications see list. Follow-up with PCP within this week. Status at Discharge Overall status at discharge: patient is not back to baseline Time Spent with Patient Time attestation: Total time spent providing and/or coordinating discharge services: Time spent: greater than 30 minutes Exam Constitutional Vital Signs, click to edit/add: Last Vital Signs Temp 97.5 F L 02/25/24 08:04 Pulse 79 02/25/24 08:04 Resp 18 02/25/24 08:04 BP 116/72 02/25/24 08:04 Pulse Ox 93 L 02/25/24 08:04 O2 Del Method Room Air 02/25/24 08:04 O2 Flow Rate 1 02/25/24 03:49 FiO2 1 02/24/24 15:31 Documenting provider has reviewed patient's vital signs: yes Common normals: apparent distress (Mild respiratory distress) Chest Common normals: inspection of chest normal Respiratory Common normals: abnormal respiratory effort (Mild respiratory distress) Effort & inspection: non tachypneic Auscultation: rhonchi (Probably his baseline) and egophony (Right lobe-his baseline); no wheezes Cardio Common normals: regular rate and regular rhythm DS: Data Data Completed and Pending Labs on day of discharge: Labs from last 24 hours 02/25/24 02/25/24 02/24/24 07:41 05:54 19:28 WBC 12.4 H RBC 4.67 L Hgb 14.0 Hct 41.1 L MCV 88.0 MCH 30.0 MCHC 34.1 RDW 12.9 Plt Count 202 MPV 12.0 Neut % (Auto) 95.2 H Lymph % (Auto) 3.2 L [place] % (Auto) 1.2 L Eos % (Auto) 0.0 L Baso % (Auto) 0.1 L Neut # (Auto) 11.8 H Lymph # (Auto) 0.4 L [place] # (Auto) 0.2 L Eos # (Auto) 0.0 Baso # (Auto) 0.0 Abs Immat Gran (auto) 0.04 H Seg Neuts % (Manual) Band Neutrophils % Lymphocytes % (Manual) Monocytes % (Manual) Eosinophils % (Manual) Basophils % (Manual) Imm/Tot Granulo (auto) 0.3 Neutrophils # (Manual) Band Neutrophils # Lymphocytes # (Manual) Monocytes # (Manual) Eosinophils # (Manual) Basophils # (Manual) Sodium 138 Potassium 4.3 Chloride 105 Carbon Dioxide 24.4 Anion Gap 12.9 BUN 12.0 Creatinine 0.90 Est GFR ( Amer) >60 Est GFR (Non-Af Amer) >60 BUN/Creatinine Ratio 13.3 Glucose 211 H Lactate Calcium 8.4 L Total Bilirubin 0.6 AST 11 L ALT 19 Alkaline Phosphatase 70 Total Protein 6.0 L Albumin 3.0 L Globulin 3.0 Albumin/Globulin Ratio 1.0 Influenza Type A Ag Influenza Type B Ag SARS-CoV-2 Ag (CV2AG) POC Glucose 170 H 176 H 02/24/24 02/24/24 02/24/24 16:08 10:40 10:20 WBC 23.4 H RBC 5.25 Hgb 15.8 Hct 45.3 MCV 86.3 MCH 30.1 MCHC 34.9 RDW 12.6 Plt Count 232 MPV 11.7 Neut % (Auto) Lymph % (Auto) [place] % (Auto) Eos % (Auto) Baso % (Auto) Neut # (Auto) Lymph # (Auto) [place] # (Auto) Eos # (Auto) Baso # (Auto) Abs Immat Gran (auto) Seg Neuts % (Manual) 91.0 H Band Neutrophils % 1.0 Lymphocytes % (Manual) 3.0 L Monocytes % (Manual) 4.0 Eosinophils % (Manual) 0.0 L Basophils % (Manual) 1.0 Imm/Tot Granulo (auto) Neutrophils # (Manual) 21.29 H Band Neutrophils # 0.2 Lymphocytes # (Manual) 0.70 L Monocytes # (Manual) 0.93 H Eosinophils # (Manual) 0.00 Basophils # (Manual) 0.23 H Sodium 137 Potassium 4.1 Chloride 103 Carbon Dioxide 28.3 Anion Gap 9.8 BUN 13.0 Creatinine 0.97 Est GFR ( Amer) >60 Est GFR (Non-Af Amer) >60 BUN/Creatinine Ratio 13.4 Glucose 135 H Lactate 1.5 Calcium 9.0 Total Bilirubin AST ALT Alkaline Phosphatase Total Protein Albumin Globulin Albumin/Globulin Ratio Influenza Type A Ag Negative Influenza Type B Ag Negative SARS-CoV-2 Ag (CV2AG) Negative POC Glucose 85 Discharge Plan Discharge Disposition: Home, Self-Care Condition: Fair Discharge Medications: New prednisone 10 mg tablet 40 mg PO DAILY Qty: 32 0RF Rx Instructions: 4/day for 3 days, 3/day for 3 days, 2/day for 3 days, 1/day for 3 days, 1/2 /day for 4 days levofloxacin 500 mg tablet 500 mg PO DAILY 10 Days Qty: 10 0RF Continued trazodone 50 mg tablet 50 mg PO BEDTIME PRN (Reason: sleep) escitalopram oxalate 10 mg tablet 10 mg PO .qd albuterol sulfate 2.5 mg /3 mL (0.083 %) solution for nebulization 2.5 mg inhalation Q6H PRN (Reason: shortness of breath or wheezing) Qty: 75 0RF Print Language: Somali Forms: Portal Instructions
[2024-02-25] MEDS: GUAIFENESIN 600 MG TAB.ER.12H PO (09:26)
[2024-02-25] MEDS: VANCOMYCIN HCL 1,000 MG in 0.9 % SODIUM CHLORIDE 250 ML 250 MG IV (09:26)
[2024-02-25] MEDS: ESCITALOPRAM 10 MG TABLET PO (09:26)
--- NOTE | 2024-02-25 09:42 | SWNOTE1 ---
Pt does wear 3 liters of home oxygen at night thru [employer].
--- NOTE | 2024-02-25 10:12 | CM.NOTE ---
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 Pt states he does need to see pulmonology, will schedule f/u prior to discharge.
--- NOTE | 2024-02-25 10:18 | CM.NOTE ---
Medicare Outpatient Observation Notice discussed with pt, pt verbalizes understanding and signs paper. Original given to pt and copy placed on pt's chart.
[2024-02-25 11:04] LABS: Glucometer 176 mg/dL (74-106)
[2024-02-25 11:16] VITALS: PULSE 104; O2SAT 93
[2024-02-25 12:09] VITALS: O2SAT 90
--- NOTE | 2024-02-26 15:04 | CM.DCFOLLOWU ---
02/25- No answer 1st attempt
--- NOTE | 2024-02-27 14:35 | CM.DCFOLLOWU ---
02/26- 2nd attempt. No answer
== END 2024-02-25 12:32 | disposition home or self-care (01) ==
LOC: ER 11:49 → MS 13:14
PROVIDERS: Admitting Provider Internal Medicine; Emergency Provider Emergency Medicine; PCP Nurse Practitioner Family; Visit Provider Family Medicine
DX: J47.0 Bronchiectasis with acute lower respiratory infection (principal); J96.11 Chronic respiratory failure with hypoxia; D72.829 Elevated white blood cell count, unspecified; J18.9 Pneumonia, unspecified organism; Z99.81 Dependence on supplemental oxygen; Z20.822 Contact with and (suspected) exposure to COVID-19; Y95 Nosocomial condition; F17.290 Nicotine dependence, other tobacco product, uncomplicated; Z87.731 Personal history of (corrected) tracheoesophageal fistula or atresia
CPT/HCPCS: 36415; 71045; 71250; 80048; 80053; 82948; 83605; 85007; 85025; 85027; 87040; 87070; 87804; 87811; 93005; 94640; 94761; 96365; 96366; 96367; 96372; 96375; 96376; 99285; 99406; G0378; J1650; J2543; J2919; J3370

== ENCOUNTER 2024-03-05 11:37 | Inpatient (IN) | payer MEDICARE, MEDICAID, SELFPAY ==
[2024-03-05] VITALS (22 sets, daily range): BP systolic 106–125; BP diastolic 63–81; PULSE 90–127; TEMP 36.6–36.8; O2SAT 89–97; BMI 21.8; BMI 21.5
--- NOTE | 2024-03-05 11:51 | XR_ITS ---
The [address] [address] Patient Name: FRANCIS GALVEZ MRN: [id number] date: 1990 Sex: M Assigned Patient Location: ER Current Patient Location: ER Accession/Order Number: [id number] Exam Date: 03/05/2024 12:20 Report Date: 03/05/2024 13:07 At the request of: PEREZ BAUTISTA Procedure: XR chest 1V EXAMINATION: XR chest 1V HISTORY: sob , cough COMPARISON: XR chest 02/24/2024, 1424 FINDINGS: LUNGS: Stable chronic interstitial changes and right perihilar opacity. VASCULATURE: No increased pulmonary vasculature. PLEURA: Stable chronic left pleural effusion. CARDIAC: No cardiomegaly or cardiac silhouette abnormality. MEDIASTINUM: No visible mass or adenopathy. BONES: No fracture or visible bone lesion. OTHER: Negative. XR/XR chest 1V IMPRESSION: 1. Stable chronic interstitial changes, right perihilar opacity, small left pleural effusion. 2. No acute changes. Electronically authenticated by: GUS BANERJEE Date: 03/05/2024 13:07
--- NOTE | 2024-03-05 11:51 | ECG_ITS ---
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
--- NOTE | 2024-03-05 12:02 | ED_ITS ---
HPI - SOB/Dyspnea General Chief Complaint: Shortness of Breath/Dyspnea Stated Complaint: SHORTNESS OF BREATH/URTI COMPLAINTS Time Seen by Provider: 03/05/24 11:44 Source: patient Mode of arrival: walk-in Limitations: no limitations History of Present Illness HPI Narrative: Patient presents to ED complaining of shortness of breath. He said he has been feeling more short of breath the past couple of days. He has chronic lung issues. He is on home oxygen at 3 L as needed but he is needed at full-time the past couple of days. He is doing his breathing treatments do but still states he feels very tight in his lungs. He states he has had collapsed lungs in the past and does feel like his lungs are not fully expanded. He said he went to his primary doctor today and they sent him right in due to his shortness of breath and wheezing. Upon arrival he was 89% on room air. He does have a decent amount of wheezing on exam. He does report that his had an increased cough recently and generally not feeling well. He did not test for COVID at home. He is alert and oriented at this time, speaking in short sentences, mild respiratory distress. Related Data Home Medications ?Medication ?Instructions ?Recorded ?Confirmed trazodone 50 mg tablet 50 mg PO BEDTIME PRN sleep 09/13/23 02/24/24 escitalopram oxalate 10 mg tablet 10 mg PO .qd 01/09/24 02/24/24 Previous Rx's ?Medication ?Instructions ?Recorded albuterol sulfate 2.5 mg/3 mL 2.5 mg (3 mL) inhalation Q6H PRN 05/25/23 (0.083 %) solution for nebulization shortness of breath or wheezing #75 mL levofloxacin 500 mg tablet 500 mg PO DAILY 10 days #10 tabs 02/25/24 prednisone 10 mg tablet 40 mg (4 x 10 mg) PO DAILY #32 tabs 02/25/24 Allergies Allergy/AdvReac Type Severity Reaction Status Date / Time Penicillins Allergy Intermediate Hives Verified 03/05/24 11:43 Review of Systems ROS Status of ROS 10 or more systems reviewed and unremark able except as noted in history and below [facility] Medical History (Updated 03/05/24 @ 13:30 by Aneta Sánchez DO) Pneumonia ?J18.9 - Pneumonia, unspecified organism (ICD-10) Bronchiectasis with acute lower respiratory infection ?J47.0 - Bronchiectasis with acute lower respiratory infection (ICD-10) Leukocytosis ?D72.829 - Elevated white blood cell count, unspecified (ICD-10) Steroid-induced hyperglycemia ?R73.9 - Hyperglycemia, unspecified (ICD-10) ?T38.0X5A - Adverse effect of glucocorticoids and synthetic analogues, initial encounter (ICD-10) Hyponatremia ?E87.1 - Hypo-osmolality and hyponatremia (ICD-10) Chest wall pain ?R07.89 - Other chest pain (ICD-10) Pneumonia ?J18.9 - Pneumonia, unspecified organism (ICD-10) Bronchiectasis with acute exacerbation ?J47.1 - Bronchiectasis with (acute) exacerbation (ICD-10) Malnutrition of moderate degree ?E44.0 - Moderate protein-calorie malnutrition (ICD-10) Depression ?F32.A - Depression, unspecified (ICD-10) Bronchiectasis ?J47.9 - Bronchiectasis, uncomplicated (ICD-10) Chronic respiratory failure with hypoxia ?J96.11 - Chronic respiratory failure with hypoxia (ICD-10) Upper respiratory infection ?J06.9 - Acute upper respiratory infection, unspecified (ICD-10) Acute hypokalemia ?E87.6 - Hypokalemia (ICD-10) Avulsion of skin ?T14.8XXA - Other injury of unspecified body region, initial encounter (ICD- 10) Influenza ?J11.1 - Influenza due to unidentified influenza virus with other respiratory manifestations (ICD-10) Marijuana abuse ?F12.10 - Cannabis abuse, uncomplicated (ICD-10) Acute hypoxic respiratory failure ?J96.01 - Acute respiratory failure with hypoxia (ICD-10) Coronavirus infection ?B34.2 - Coronavirus infection, unspecified (ICD-10) Pneumonia ?J18.9 - Pneumonia, unspecified organism (ICD-10) Hospital-acquired bacterial pneumonia ?J15.9 - Unspecified bacterial pneumonia (ICD-10) COVID-19 ?U07.1 - COVID-19 (ICD-10) GERD (gastroesophageal reflux disease) ?K21.9 - Gastro-esophageal reflux disease without esophagitis (ICD-10) 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34 - 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) History of gastrostomy tube placement 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 (ICD-10) Pneumonia ?J18.9 - Pneumonia, unspecified organism (ICD-10) Abdominal pain ?R10.9 - Unspecified abdominal pain (ICD-10) Abdominal pain, acute ?R10.9 - Unspecified abdominal pain (ICD-10) Surgical History History of fundoplication ?Z98.890 - Other specified postprocedural states (ICD-10) History of appendectomy ?Z90.49 - Acquired absence of other specified parts of digestive tract (ICD- 10) H/O chest tube placement ?Z98.890 - Other specified postprocedural states (ICD-10) History of facial surgery ?Z98.890 - Other specified postprocedural states (ICD-10) Family History Mother Family history of diabetes mellitus Family history of hypertension Grandmother Family history of diabetes mellitus Grandfather Family history of myocardial infarction Social History (Updated 01/09/24 @ 15:01 by Parris Rowland) Within the past year, how often did you have a drink containing alcohol: 2-4 times a month Within the past year, how many standard drinks containing alcohol did you have on a typical day: 1 or 2 Within the past year, how often did you have six or more drinks on one occasion: weekly Total score: 3 Score interpretation: A score of 4 or more indicates drinking is likely to affect patient's safety. 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 Known occupational exposures/hazards: No Highest level of school completed/degree received: some college, no degree Are you now , , , , never or living with a partner: In a typical week, how many times do you talk on the telephone with family, friends, or neighbors: 3 or more times per week How often do you get together with friends or relatives: once per week How often do you attend mandaeism or samaritan services: never Do you belong to any clubs or organizations such as mandaeism groups unions, fra[employer]ment[employer] or athletic groups, or school groups: no Total score: 1 Score interpretation: A score of less than or equal to 1 indicates the most socially isolated. Little interest or pleasure in doing things: not at all Feeling down, depressed, or hopeless: not at all Feel stressed/tense/nervous/anxious/difficulty sleeping: not at all Do you think of yourself as: straight/heterosexual Gender Identity: male Exam Narrative Exam Narrative: Time Seen: [] Vital Signs: [Per nurse's notes.] General: [Alert] Skin: [Warm, dry, no rash.] Head: [Normocephalic, atraumatic.] Neck: [Supple, trachea midline.] Eye: [Pupils are equal, round and reactive to light, extraocular movements are intact, normal conjunctiva.] Ears, nose, mouth and throat: oral mucosa moist. Cardiovascular: [Regular rate and rhythm, no murmur.] Respiratory: Mild respiratory distress, mild retractions. Inspiratory expiratory wheezing bilaterally worse on the right. Chest wall: [No tenderness, no deformity.] Gastrointestinal: [Soft, nontender, non distended, normal bowel sounds.] MSK: 5 out of 5 muscle strength x 4 extremities no calf pain or edema Lymphatics: [No lymphadenopathy.] Psychiatric: [Cooperative, appropriate mood & affect.] Neurological: [Alert and oriented to person, place, time, and situation, no focal neurological deficit observed.] Constitutional Vital Signs, click to edit/add: Last Vital Signs Temp 98.3 F 03/05/24 11:43 Pulse 90 03/05/24 13:10 Resp 27 H 03/05/24 13:10 BP 106/81 03/05/24 11:43 Pulse Ox 94 L 03/05/24 13:10 O2 Del Method Nasal Cannula 03/05/24 11:55 O2 Flow Rate 3 03/05/24 11:55 Course Vital Signs Vital signs: Vital Signs Temperature 98.3 F 03/05/24 11:43 Pulse Rate 107 H 03/05/24 11:43 Respiratory Rate 26 H 03/05/24 11:43 Blood Pressure 106/81 03/05/24 11:43 Pulse Oximetry 89 L 03/05/24 11:43 Oxygen Delivery Method Room Air 03/05/24 11:43 Temperature 98.3 F 03/05/24 11:43 Pulse Rate 90 03/05/24 13:10 Respiratory Rate 27 H 03/05/24 13:10 Blood Pressure 106/81 03/05/24 11:43 Pulse Oximetry 94 L 03/05/24 13:10 Oxygen Delivery Method Nasal Cannula 03/05/24 11:55 Oxygen Delivery Flow Rate 3 03/05/24 11:55 MDM - SOB/Dyspnea MDM Narrative Medical decision making narrative: Patient states he feels short of breath still but feels slightly better after his breathing treatment. He states he feels like he would rather play it safe and stay in the hospital. He does have some mild respiratory distress and he was hypoxic when he came in. I spoke to Dr. Cheng who is agreeable with care plan for an observation admission at this time. Differential Diagnosis Differential diagnosis: Likely acute exacerbation of chronic obstructive airways disease, community acquired pneumonia, asthma with exacerbation and other (Pneumothorax, COVID) Medical Records Attestation: I reviewed the patient's medical records. Lab Data Attestation: I reviewed the patient's lab results. Labs: Lab Results 03/05/24 Range/Units 12:05 WBC 14.9 H (4.0-11.0) 10^3/uL RBC 5.76 (4.70-6.10) 10^6/uL Hgb 17.0 (14.0-18.0) g/dL Hct 50.3 (42.0-54.0) % MCV 87.3 (80.0-94.0) fL MCH 29.5 (25.9-34.0) pg MCHC 33.8 (29.9-35.2) g/dL RDW 12.8 (11.0-15.0) % Plt Count 277 (150-450) 10^3/uL MPV 11.1 (9.5-13.5) fL Neut % (Auto) 84.9 H (43.0-75.0) % Lymph % (Auto) 7.2 L (20.5-60.0) % [place] % (Auto) 6.1 (1.7-12.0) % Eos % (Auto) 0.5 L (0.9-7.0) % Baso % (Auto) 0.8 (0.2-2.0) % Neut # (Auto) 12.7 H (1.4-6.5) 10^3/uL Lymph # (Auto) 1.1 L (1.2-3.8) 10^3/uL [place] # (Auto) 0.9 H (0.3-0.8) 10^3/uL Eos # (Auto) 0.1 (0.0-0.7) 10^3/uL Baso # (Auto) 0.1 (0.0-0.1) 10^3/uL Abs Immat Gran (auto) 0.08 H (0.00-0.03) 10^3/uL Imm/Tot Granulo (auto) 0.5 (0.0-0.5) % Sodium 137 (136-145) mmol/L Potassium 3.8 (3.5-5.1) mmol/L Chloride 101 (98-107) mmol/L Carbon Dioxide 27.1 (21.0-32.0) mmol/L Anion Gap 12.7 BUN 9.0 (7.0-18.0) mg/dL Creatinine 0.85 (0.70-1.30) mg/dL Est GFR ( Amer) >60 (>=60 mL/min/1.73m^2) Est GFR (Non-Af Amer) >60 (>=60 mL/min/1.73m^2) BUN/Creatinine Ratio 10.6 Glucose 98 (74-106) mg/dL Lactate 0.8 (0.4-2.0) mmol/L Calcium 9.1 (8.5-10.1) mg/dL Total Bilirubin 0.9 (0.2-1.0) mg/dL AST 13 L (15-37) U/L ALT 24 (16-63) U/L Alkaline Phosphatase 91 (46-116) U/L Troponin I High Sens <4.0 L (4.0-76.1) pg/mL Total Protein 7.2 (6.4-8.2) g/dL Albumin 3.9 (3.4-5.0) g/dL Globulin 3.3 g/dL Albumin/Globulin Ratio 1.2 Influenza Type A Ag Negative Influenza Type B Ag Negative SARS-CoV-2 Ag (CV2AG) Negative (NEGATIVE) Imaging Data Chest x-ray: Radiologist's impression: ITS Impressions Chest X-Ray 03/05/24 11:51 IMPRESSION: 1. Stable chronic interstitial changes, right perihilar opacity, small left pleural effusion. 2. No acute changes. Electronically authenticated by: GUS BANERJEE Date: 03/05/2024 13:07 ECG Data Attestation: I personally reviewed and interpreted this ECG as follows: Interpretation: EKG INTERPRETATION Time: []1154 Rate: []106 Rhythm: _ []Sinus tachycardia ST segments: _ []No obvious acute ST elevation or depression T waves: _ [] Ectopy: _ [] P wave/NH interval: _ [] QRS interval: _ [] QT interval: _ [] Comparison: _ [] Comparison EKG date: [] Performed by: [self]Artifact on EKG Discharge Plan Discharge Chief Complaint: Shortness of Breath/Dyspnea Clinical Impression: Hypoxia, Dyspnea Patient Disposition: Admitted as Observation Time of Disposition Decision: 13:30 Condition: Fair Prescriptions / Home Meds: No Action trazodone 50 mg tablet 50 mg PO BEDTIME PRN (Reason: sleep) escitalopram oxalate 10 mg tablet 10 mg PO .qd albuterol sulfate 2.5 mg /3 mL (0.083 %) solution for nebulization 2.5 mg inhalation Q6H PRN (Reason: shortness of breath or wheezing) Qty: 75 0RF prednisone 10 mg tablet 40 mg PO DAILY Qty: 32 0RF Rx Instructions: 4/day for 3 days, 3/day for 3 days, 2/day for 3 days, 1/day for 3 days, 1/2 /day for 4 days levofloxacin 500 mg tablet 500 mg PO DAILY 10 Days Qty: 10 0RF Print Language: Mauritanian Referrals: REBEKAH BARBOZA [Primary Care Provider] - 1 week
[2024-03-05] MEDS: IPRATROPIUM/ALBUTEROL SULFATE 3 ML AMPUL.NEB IH ×4 (12:12→23:15)
[2024-03-05] MEDS: DEXAMETHASONE SOD PHOS 10 MG/ML VIAL IV (12:16)
[2024-03-05 12:32] LABS: Basophils Absolute Auto 0.1 10^3/uL (0.0-0.1); Basophils Percent Auto 0.8 % (0.2-2.0); Eosinophils Absolute Auto 0.1 10^3/uL (0.0-0.7); Eosinophils Percent Auto 0.5 % (0.9-7.0); Hematocrit 50.3 % (42.0-54.0); Immature Granulocytes Abs Auto 0.08 10^3/uL (0.00-0.03); Immature Granulocytes Pct Auto 0.5 % (0.0-0.5); Lymphocytes Absolute Auto 1.1 10^3/uL (1.2-3.8); Lymphocytes Percent Auto 7.2 % (20.5-60.0); Mean Corpuscular HGB Conc 33.8 g/dL (29.9-35.2); Mean Corpuscular Hemoglobin 29.5 pg (25.9-34.0); Mean Corpuscular Volume 87.3 fL (80.0-94.0); Mean Platelet Volume 11.1 fL (9.5-13.5); Monocytes Absolute Auto 0.9 10^3/uL (0.3-0.8); Monocytes Percent Auto 6.1 % (1.7-12.0); Neutrophils Absolute Auto 12.7 10^3/uL (1.4-6.5); Neutrophils Percent Auto 84.9 % (43.0-75.0); Platelet Count 277 10^3/uL (150-450); Red Blood Count 5.76 10^6/uL (4.70-6.10); Red Cell Distribution Width 12.8 % (11.0-15.0); White Blood Count 14.9 10^3/uL (4.0-11.0)
[2024-03-05 12:44] LABS: Internal Control Within Normal Limits; SARS-CoV-2 Ag NEGATIVE (NEGATIVE)
[2024-03-05 12:45] LABS: Influenza Virus A Antigen Negative; Influenza Virus B Antigen Negative; Internal Control Within Normal Limits
[2024-03-05 12:59] LABS: Alanine Aminotransferase 24 U/L (16-63); Albumin Globulin Ratio 1.2; Albumin Level 3.9 g/dL (3.4-5.0); Alkaline Phosphatase 91 U/L (46-116); Anion Gap 12.7; Aspartate Amino Transferase 13 U/L (15-37); BUN Creatinine Ratio 10.6; Bilirubin Total 0.9 mg/dL (0.2-1.0); Calcium 9.1 mg/dL (8.5-10.1); Carbon Dioxide 27.1 mmol/L (21.0-32.0); Chloride 101 mmol/L (98-107); Estimated GFR (African America >60 (>=60 mL/min/1.73m^2); Estimated GFR (Non-African Ame >60 (>=60 mL/min/1.73m^2); Globulin 3.3 g/dL; Glucose 98 mg/dL (74-106); Potassium 3.8 mmol/L (3.5-5.1); Sodium 137 mmol/L (136-145); Total Protein 7.2 g/dL (6.4-8.2); Troponin I High Sensitivity <4.0 pg/mL (4.0-76.1)
[2024-03-05 13:05] LABS: Lactate/Lactic Acid 0.8 mmol/L (0.4-2.0)
--- NOTE | 2024-03-05 14:03 | P.HP_ITS ---
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 He was seen by his primary care provider and sent to ER because of respiratory distress/tachypnea and increased work of breathing. Patient uses oxygen as needed and was 89% on room air and had increased work of breathing, with respiratory rate as high as 36 and was using accessory muscles of respiration on arrival. He was treated with IV steroids and inhaled DuoNebs with improvement in his symptoms. He improved considerably with DuoNeb treatment and IV steroid but he still feels short of breath and is needing oxygen currently via nasal cannula at 2 L. He denies fever, chills. He was discharged from the hospital last month for pneumonia and finished his oral antibiotics for pneumonia. Chest x-ray did not reveal any new infiltrate and showed chronic stable changes. Opioid HPI Opioid Management Most Recent Pain and Opioid Data: Last Pain Scale 10 01/30/24 22:31 Last Pain Assessment 03/05/24 14:00 Last ORT Total Score 14 03/05/24 13:51 Last ORT Risk Category High Risk 03/05/24 13:51 Review of Systems ROS Status of ROS 10 or more systems reviewed and unremark able except as noted in history and below [facility] Medical History (Updated 03/05/24 @ 14:10 by Shaikh Lawanda MD) Depression with anxiety ?F41.8 - Other specified anxiety disorders (ICD-10) Pneumonia ?J18.9 - Pneumonia, unspecified organism (ICD-10) Bronchiectasis with acute lower respiratory infection ?J47.0 - Bronchiectasis with acute lower respiratory infection (ICD-10) Leukocytosis ?D72.829 - Elevated white blood cell count, unspecified (ICD-10) Steroid-induced hyperglycemia ?R73.9 - Hyperglycemia, unspecified (ICD-10) ?T38.0X5A - Adverse effect of glucocorticoids and synthetic analogues, initial encounter (ICD-10) Hyponatremia ?E87.1 - Hypo-osmolality and hyponatremia (ICD-10) Chest wall pain ?R07.89 - Other chest pain (ICD-10) Pneumonia ?J18.9 - Pneumonia, unspecified organism (ICD-10) Malnutrition of moderate degree ?E44.0 - Moderate protein-calorie malnutrition (ICD-10) Depression ?F32.A - Depression, unspecified (ICD-10) Bronchiectasis ?J47.9 - Bronchiectasis, uncomplicated (ICD-10) Chronic respiratory failure with hypoxia ?J96.11 - Chronic respiratory failure with hypoxia (ICD-10) Upper respiratory infection ?J06.9 - Acute upper respiratory infection, unspecified (ICD-10) Acute hypokalemia ?E87.6 - Hypokalemia (ICD-10) Avulsion of skin ?T14.8XXA - Other injury of unspecified body region, initial encounter (ICD- 10) Influenza ?J11.1 - Influenza due to unidentified influenza virus with other respiratory manifestations (ICD-10) Marijuana abuse ?F12.10 - Cannabis abuse, uncomplicated (ICD-10) Acute hypoxic respiratory failure ?J96.01 - Acute respiratory failure with hypoxia (ICD-10) Coronavirus infection ?B34.2 - Coronavirus infection, unspecified (ICD-10) Pneumonia ?J18.9 - Pneumonia, unspecified organism (ICD-10) Hospital-acquired bacterial pneumonia ?J15.9 - Unspecified bacterial pneumonia (ICD-10) COVID-19 ?U07.1 - COVID-19 (ICD-10) GERD (gastroesophageal reflux disease) ?K21.9 - Gastro-esophageal reflux disease without esophagitis (ICD-10) 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34 - 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) History of gastrostomy tube placement 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 (ICD-10) Pneumonia ?J18.9 - Pneumonia, unspecified organism (ICD-10) Abdominal pain ?R10.9 - Unspecified abdominal pain (ICD-10) Abdominal pain, acute ?R10.9 - Unspecified abdominal pain (ICD-10) Surgical History History of fundoplication ?Z98.890 - Other specified postprocedural states (ICD-10) History of appendectomy ?Z90.49 - Acquired absence of other specified parts of digestive tract (ICD- 10) H/O chest tube placement ?Z98.890 - Other specified postprocedural states (ICD-10) History of facial surgery ?Z98.890 - Other specified postprocedural states (ICD-10) Family History Mother Family history of diabetes mellitus Family history of hypertension Grandmother Family history of diabetes mellitus Grandfather Family history of myocardial infarction Social History (Updated 01/09/24 @ 15:01 by Parris Rowland) Within the past year, how often did you have a drink containing alcohol: 2-4 times a month Within the past year, how many standard drinks containing alcohol did you have on a typical day: 1 or 2 Within the past year, how often did you have six or more drinks on one occasion: weekly Total score: 3 Score interpretation: A score of 4 or more indicates drinking is likely to affect patient's safety. Smoking status: Current every day smoker Nicotine containing products detail: vaping Non-prescribed substance use: cannabis (any form) Previous occupational history: [employer] Known occupational exposures/hazards: No Highest level of school completed/degree received: some college, no degree Are you now , , , , never or living with a partner: In a typical week, how many times do you talk on the telephone with family, friends, or neighbors: 3 or more times per week How often do you get together with friends or relatives: once per week How often do you attend tenriism or quaker services: never Do you belong to any clubs or organizations such as tenriism groups unions, fraternal or athletic groups, or school groups: no Total score: 1 Score interpretation: A score of less than or equal to 1 indicates the most socially isolated. Little interest or pleasure in doing things: not at all Feeling down, depressed, or hopeless: not at all Feel stressed/tense/nervous/anxious/difficulty sleeping: not at all Do you think of yourself as: straight/heterosexual Gender Identity: male Meds Home Medications and Allergies Home Medications ?Medication ?Instructions ?Recorded ?Confirmed ?Type albuterol sulfate 2.5 mg/3 mL 2.5 mg (3 mL) inhalation Q6H PRN 05/25/23 03/05/24 Rx (0.083 %) solution for nebulization shortness of breath or wheezing #75 mL trazodone 50 mg tablet 50 mg PO BEDTIME PRN sleep 09/13/23 03/05/24 History escitalopram oxalate 10 mg tablet 10 mg PO .qd 01/09/24 03/05/24 History hydroxyzine pamoate 25 mg capsule 25 mg PO BID PRN anxiety 03/05/24 03/05/24 History levofloxacin 500 mg tablet 500 mg PO DAILY 03/05/24 03/05/24 History pantoprazole 40 mg tablet,delayed 40 mg PO Q12H 03/05/24 03/05/24 History release Allergies Allergy/AdvReac Type Severity Reaction Status Date / Time Penicillins Allergy Intermediate Hives Verified 03/05/24 11:43 Exam Constitutional Vital Signs, click to edit/add: Last Vital Signs Temp 98.3 F 03/05/24 13:26 Pulse 91 H 03/05/24 13:30 Resp 36 H 03/05/24 13:30 BP 111/63 03/05/24 13:26 Pulse Ox 94 L 03/05/24 13:40 O2 Del Method Nasal Cannula 03/05/24 13:26 O2 Flow Rate 2 03/05/24 13:26 Common normals: no apparent distress General appearance: cooperative and comfortable Respiratory Common normals: normal respiratory effort and no use of accessory muscles Effort & inspection: able to speak in complete sentences Auscultation: wheezes expiratory wheezes and diminished lung sounds bilateral in the lower lung clifford Cardio Common normals: regular rate, regular rhythm, S1 normal heart sound and S2 normal heart sound GI Common normals: Normal to inspection, nondistended, normoactive bowel sounds present, soft to palpation, non-tender and no hepatosplenomegaly Neuro Common normals: oriented x3, moves all extremities and no focal motor deficits Psych Common normals: mental status grossly normal, thought process normal, denies homicidal ideation and denies suicidal ideation Results Labs Labs: Short CBC 03/05/24 Range/Units 12:05 WBC 14.9 H (4.0-11.0) 10^3/uL Hgb 17.0 (14.0-18.0) g/dL Hct 50.3 (42.0-54.0) % Plt Count 277 (150-450) 10^3/uL BMP 03/05/24 12:05 Sodium 137 Potassium 3.8 Chloride 101 Carbon Dioxide 27.1 BUN 9.0 Creatinine 0.85 Glucose 98 Calcium 9.1 Liver Function 03/05/24 Range/Units 12:05 Total Bilirubin 0.9 (0.2-1.0) mg/dL AST 13 L (15-37) U/L ALT 24 (16-63) U/L Alkaline Phosphatase 91 (46-116) U/L Albumin 3.9 (3.4-5.0) g/dL Assessment and Plan Assessment and Plan (1) Bronchiectasis with acute exacerbation: Assessment and Plan: Presented with cough/SOB/wheezing - improved a little with IV steroids and duoneb. Still SOB and wheezing. No new infiltrate on CXR. Hold abx. Started on solumedrol, duonebs and saline nebs. OPEP q1h or as needed. Monitor closely. (2) Chronic respiratory failure with hypoxia: Assessment and Plan: uses O2 as needed. Currently on 2 L. Monitor closely. (3) Depression with anxiety: Assessment and Plan: Stable mood. C/w Lexapro and Trazodone. (4) GERD (gastroesophageal reflux disease): Assessment and Plan: C/w protonix Qualifiers: Esophagitis presence: esophagitis presence not specified Qualified Code(s): K21.9 - Gastro-esophageal reflux disease without esophagitis
--- NOTE | 2024-03-05 14:36 | SWNOTE1 ---
SW met with pt to discuss dc needs. Pt is independent at home and does not use any devices. Pt wears 3 liters of home oxygen at night. Pt voiced he is feeling a little better. Stated he had a pure anxiety attack and felt like his lung collapsed. He stated his lips were blue at [facility]'s office and she went him here. Pt denies any discharge needs at this time. SW to follow as needed.
--- NOTE | 2024-03-05 14:38 | SWNOTE1 ---
Medicare Outpatient Observation Notice reviewed and discussed with patient. Pt. verbalized understanding and signed the form. Original given to patient and copy placed in patient?s chart.
[2024-03-05] MEDS: LACTATED RINGER'S SOLUTION 1,000 ML 100 ML IV (14:51)
[2024-03-05] MEDS: ENOXAPARIN SODIUM 40 MG/0.4 ML SYRINGE SUBQ (16:07)
[2024-03-05] MEDS: HYDROXYZINE PAMOATE 25 MG CAPSULE PO (17:24)
--- NOTE | 2024-03-05 17:29 | PC.NURSE ---
Pt c/o anxiety, shortness of breath. Requests anxiety pill Vistaril given and oxygen increased to 3 liters . Pulse ox 92%. Lungs with wheezing throughout. Cardio Livier called to give prn treatment.
[2024-03-05] MEDS: METHYLPREDNISOLONE SOD SUCC PF 40 MG/ML VIAL IVP (19:45)
[2024-03-05] MEDS: INSULIN ASPART 300 UNIT/3 ML PEN SUBQ (21:26)
[2024-03-05] MEDS: GUAIFENESIN 600 MG TAB.ER.12H PO (21:26)
[2024-03-05] MEDS: TRAZODONE HCL 50 MG TABLET PO (21:27)
[2024-03-05 21:31] LABS: Glucometer 168 mg/dL (74-106)
[2024-03-05] MEDS: GUAIFENESIN 200 MG/DEXTROMETHORPHAN 20 MG 10 ML UNIT DOSE CUP PO (22:27)
[2024-03-05] MEDS: SODIUM CHLORIDE 3% INHALATION 15 ML NEB 6 ML IH (23:16)
[2024-03-06] VITALS (17 sets, daily range): BP systolic 109–120; BP diastolic 62–69; PULSE 107–127; TEMP 36.1–36.8; O2SAT 88–97
[2024-03-06] MEDS: LACTATED RINGER'S SOLUTION 1,000 ML 100 ML IV (00:27)
[2024-03-06] MEDS: METHYLPREDNISOLONE SOD SUCC PF 40 MG/ML VIAL IVP (03:25)
[2024-03-06] MEDS: IPRATROPIUM/ALBUTEROL SULFATE 3 ML AMPUL.NEB IH ×6 (03:36→23:05)
--- NOTE | 2024-03-06 03:36 | RESP.RT ---
Spo2 on 3L nasal cannula 88%, titrated O2 up to 4L and Spo2 increased to 92%.
[2024-03-06 06:20] LABS: Basophils Percent Auto 0.1 % (0.2-2.0); Hematocrit 44.6 % (42.0-54.0); Hemoglobin 15.2 g/dL (14.0-18.0); Immature Granulocytes Abs Auto 0.09 10^3/uL (0.00-0.03); Immature Granulocytes Pct Auto 0.7 % (0.0-0.5); Lymphocytes Absolute Auto 0.3 10^3/uL (1.2-3.8); Lymphocytes Percent Auto 2.2 % (20.5-60.0); Mean Corpuscular HGB Conc 34.1 g/dL (29.9-35.2); Mean Corpuscular Hemoglobin 29.7 pg (25.9-34.0); Mean Corpuscular Volume 87.3 fL (80.0-94.0); Mean Platelet Volume 11.4 fL (9.5-13.5); Monocytes Absolute Auto 0.4 10^3/uL (0.3-0.8); Monocytes Percent Auto 2.9 % (1.7-12.0); Neutrophils Absolute Auto 12.9 10^3/uL (1.4-6.5); Neutrophils Percent Auto 94.1 % (43.0-75.0); Platelet Count 278 10^3/uL (150-450); Red Blood Count 5.11 10^6/uL (4.70-6.10); Red Cell Distribution Width 12.5 % (11.0-15.0); White Blood Count 13.7 10^3/uL (4.0-11.0)
[2024-03-06 06:32] LABS: Alanine Aminotransferase 20 U/L (16-63); Albumin Globulin Ratio 1.1; Albumin Level 3.3 g/dL (3.4-5.0); Alkaline Phosphatase 77 U/L (46-116); Anion Gap 16.1; Aspartate Amino Transferase 8 U/L (15-37); BUN Creatinine Ratio 10.9; Bilirubin Total 0.5 mg/dL (0.2-1.0); Calcium 8.6 mg/dL (8.5-10.1); Chloride 99 mmol/L (98-107); Estimated GFR (African America >60 (>=60 mL/min/1.73m^2); Estimated GFR (Non-African Ame >60 (>=60 mL/min/1.73m^2); Glucose 191 mg/dL (74-106); Potassium 4.1 mmol/L (3.5-5.1); Sodium 136 mmol/L (136-145); Total Protein 6.3 g/dL (6.4-8.2)
[2024-03-06] MEDS: SODIUM CHLORIDE 3% INHALATION 15 ML NEB 6 ML IH ×3 (07:11→23:05)
--- NOTE | 2024-03-06 07:33 | P.PN_ITS ---
Progress Note: Subjective Subjective Interval history: Patient will be from the office is as well as recurrent hospitalizations for acute exacerbation of chronic bronchiectasis. Patient admitted last night and started on IV steroids and frequent aerosol treatments. Patient condition deteriorated overnight with increasing shortness of breath and acute hypoxia with O2 sat of 88% on his normal 3 L. He has bumped up to 4 L this morning. With some improvement. Still with significant dyspnea. When I saw patient up on the medical surgical floor this morning, he still had some tachypnea and mild conversational dyspnea. Definitely not at his baseline. He overall feels worse since admission. Exam Constitutional Vital Signs, click to edit/add: Last Vital Signs Temp 97.7 F 03/06/24 06:27 Pulse 115 H 03/06/24 06:27 Resp 18 03/06/24 06:27 BP 120/64 03/06/24 06:27 Pulse Ox 96 03/06/24 07:15 O2 Del Method Nasal Cannula 03/06/24 07:15 O2 Flow Rate 3 03/06/24 07:15 Documenting provider has reviewed patient's vital signs: yes Common normals: apparent distress (Mild conversational dyspnea - he does not have at baseline) Chest Common normals: inspection of chest normal Respiratory Common normals: abnormal respiratory effort (Mild conversational dyspnea-not at his baseline) and not clear to ascultation bilaterally Auscultation: rhonchi throughout and egophony throughout Cardio Common normals: regular rate GI Common normals: Normal to inspection, nondistended, normoactive bowel sounds present, soft to palpation and non-tender Extremity Common normals: normal to inspection and full ROM Progress Note: Objective Labs Labs: Short CBC 03/05/24 03/06/24 Range/Units 12:05 05:43 WBC 14.9 H 13.7 H (4.0-11.0) 10^3/uL Hgb 17.0 15.2 (14.0-18.0) g/dL Hct 50.3 44.6 (42.0-54.0) % Plt Count 277 278 (150-450) 10^3/uL BMP 03/05/24 03/06/24 12:05 05:43 Sodium 137 136 Potassium 3.8 4.1 Chloride 101 99 Carbon Dioxide 27.1 25.0 BUN 9.0 11.0 Creatinine 0.85 1.01 Glucose 98 191 H Calcium 9.1 8.6 Liver Function 03/05/24 03/06/24 Range/Units 12:05 05:43 Total Bilirubin 0.9 0.5 (0.2-1.0) mg/dL AST 13 L 8 L (15-37) U/L ALT 24 20 (16-63) U/L Alkaline Phosphatase 91 77 (46-116) U/L Albumin 3.9 3.3 L (3.4-5.0) g/dL Progress Note: A&P Assessment and Plan (1) Bronchiectasis with acute exacerbation: (2) Chronic respiratory failure with hypoxia: (3) Depression with anxiety: (4) GERD (gastroesophageal reflux disease): Qualifiers: Esophagitis presence: esophagitis presence not specified Qualified Code(s): K21.9 - Gastro-esophageal reflux disease without esophagitis (5) Dyspnea: (6) Hypoxia: (7) Bronchiectasis with acute lower respiratory infection: (8) Leukocytosis: Qualifiers: Leukocytosis type: unspecified Qualified Code(s): D72.829 - Elevated white blood cell count, unspecified (9) Steroid-induced hyperglycemia: (10) Bronchiectasis: Qualifiers: Bronchiectasis type: uncomplicated Qualified Code(s): J47.9 - Bronchiectasis, uncomplicated (11) TEF (tracheoesophageal fistula): (12) Shortness of breath: (13) Hypoxia: (14) History of home oxygen therapy: Plan Admission findings: Sinus tachycardia, respiratory distress, acute hypoxia with O2 sat less than 88% on 3 L, leukocytosis with left shift consistent with acute bacterial process due to acute lower respiratory tract infection rate resulting in acute exacerbation of his chronic hypoxic respiratory failure due to chronic bronchiectasis resulting in sepsis (tachycardia, respiratory distress, leukocytosis with known source of infection being respiratory tract) Acute lower respiratory tract infection resulting in acute exacerbation of his chronic hypoxic respiratory failure secondary to bronchiectasis-patient deteriorated overnight. White blood cell count not significantly improved either. O2 saturation dropped down to 88% on 3 L which is his baseline number. He has bumped up to 4 L this morning. Will increase his steroids today. Try patient on IPV treatments. Due to increasing sputum production, check sputum culture and start oral antibiotics Acute hyperglycemia-this is likely steroid-induced, will increased insulin slidi ng scale on due to the need to increase his steroids due to the failed treatment with deteriorating condition as outlined above Leukocytosis-this is likely secondary to lower respiratory tract infection likely bacterial with a significant left shift of neutrophils over 90%.-Starting oral antibiotics today. Generalized anxiety disorder-continue with home medications GERD-continue with home medications Admission status: Patient started off as observation, patient's condition deteriorated overnight time with hypoxia 88% despite being on his baseline of 3 L. Dyspnea feels worse to patient, leukocytosis not significantly improved. With failing the observation status. Medically necessary treatment will span 2 midnights due to patient's condition deteriorating over the first midnight, will change patient to inpatient status
[2024-03-06 07:38] LABS: Glucometer 149 mg/dL (74-106)
[2024-03-06] MEDS: METHYLPREDNISOLONE SOD SUCC PF 40 MG/ML VIAL 60 MG IVP ×3 (09:18→21:24)
[2024-03-06] MEDS: LEVOFLOXACIN 750 MG TABLET PO (09:19)
[2024-03-06] MEDS: GUAIFENESIN 600 MG TAB.ER.12H PO ×2 (09:19→21:24)
[2024-03-06] MEDS: OMEPRAZOLE 40 MG CAPSULE.DR PO (09:19)
[2024-03-06] MEDS: ESCITALOPRAM 10 MG TABLET PO (09:19)
[2024-03-06 15:59] LABS: Glucometer 147 mg/dL (74-106)
[2024-03-06] MEDS: ENOXAPARIN SODIUM 40 MG/0.4 ML SYRINGE SUBQ (16:15)
[2024-03-06] MEDS: INSULIN ASPART 300 UNIT/3 ML PEN SUBQ ×2 (16:16→21:25)
[2024-03-06 19:52] LABS: Glucometer 182 mg/dL (74-106)
[2024-03-06] MEDS: GUAIFENESIN 200 MG/DEXTROMETHORPHAN 20 MG 10 ML UNIT DOSE CUP PO (21:24)
--- NOTE | 2024-03-06 23:05 | RESP.RT ---
Titrated oxygen up to 3L. Pt wears 3L at night at home.
[2024-03-07 03:43] VITALS: PULSE 110; O2SAT 95
[2024-03-07] MEDS: IPRATROPIUM/ALBUTEROL SULFATE 3 ML AMPUL.NEB IH ×2 (03:43→07:03)
[2024-03-07] MEDS: METHYLPREDNISOLONE SOD SUCC PF 40 MG/ML VIAL 60 MG IVP ×2 (03:59→09:01)
[2024-03-07 06:04] LABS: Hematocrit 44.6 % (42.0-54.0); Mean Corpuscular HGB Conc 33.6 g/dL (29.9-35.2); Mean Corpuscular Hemoglobin 29.5 pg (25.9-34.0); Mean Corpuscular Volume 87.6 fL (80.0-94.0); Mean Platelet Volume 11.6 fL (9.5-13.5); Platelet Count 258 10^3/uL (150-450); Red Blood Count 5.09 10^6/uL (4.70-6.10); Red Cell Distribution Width 13.1 % (11.0-15.0); White Blood Count 14.4 10^3/uL (4.0-11.0)
[2024-03-07 06:23] VITALS: BP 115/74; PULSE 99; TEMP 36.6; O2SAT 95
[2024-03-07 06:25] LABS: Alanine Aminotransferase 21 U/L (16-63); Albumin Globulin Ratio 1.1; Albumin Level 3.4 g/dL (3.4-5.0); Alkaline Phosphatase 79 U/L (46-116); Anion Gap 17.1; Aspartate Amino Transferase 10 U/L (15-37); BUN Creatinine Ratio 19.4; Bilirubin Total 0.3 mg/dL (0.2-1.0); Calcium 8.9 mg/dL (8.5-10.1); Carbon Dioxide 24.1 mmol/L (21.0-32.0); Chloride 101 mmol/L (98-107); Estimated GFR (African America >60 (>=60 mL/min/1.73m^2); Estimated GFR (Non-African Ame >60 (>=60 mL/min/1.73m^2); Glucose 168 mg/dL (74-106); Potassium 4.2 mmol/L (3.5-5.1); Sodium 138 mmol/L (136-145); Total Protein 6.4 g/dL (6.4-8.2)
[2024-03-07 06:33] LABS: Atypical Lymphocytes Abs Man 0.28; Lymphocytes Absolute Manual 0.14 10^3/uL (1.20-3.80); Monocytes Absolute Manual 0.28 10^3/uL (0.30-0.80); Segmented Neut Absolute Manual 13.82 10^3/uL (1.4-6.5)
[2024-03-07 07:04] VITALS: PULSE 110; O2SAT 96
[2024-03-07] MEDS: SODIUM CHLORIDE 3% INHALATION 15 ML NEB 6 ML IH (07:04)
--- NOTE | 2024-03-07 07:11 | RESP.RT ---
titrated down from 1L to RA
--- NOTE | 2024-03-07 07:31 | P.DS_ITS ---
DS: Providers Provider Date of admission: 03/06/24 07:40 Primary care physician: REBEKAH BARBOZA DS: Diagnosis Discharge Diagnosis (1) Bronchiectasis with acute exacerbation: (2) Chronic respiratory failure with hypoxia: (3) Depression with anxiety: (4) GERD (gastroesophageal reflux disease): Qualifiers: Esophagitis presence: esophagitis presence not specified Qualified Code(s): K21.9 - Gastro-esophageal reflux disease without esophagitis (5) Dyspnea: (6) Hypoxia: (7) Bronchiectasis with acute lower respiratory infection: (8) Leukocytosis: Qualifiers: Leukocytosis type: unspecified Qualified Code(s): D72.829 - Elevated white blood cell count, unspecified (9) Steroid-induced hyperglycemia: (10) Bronchiectasis: Qualifiers: Bronchiectasis type: uncomplicated Qualified Code(s): J47.9 - Bronchiectasis, uncomplicated (11) TEF (tracheoesophageal fistula): (12) Shortness of breath: (13) History of home oxygen therapy: Plan Admission findings: Sinus tachycardia, respiratory distress, acute hypoxia with O2 sat less than 88% on 3 L, leukocytosis with left shift consistent with acute bacterial process due to acute lower respiratory tract infection rate resulting in acute exacerbation of his chronic hypoxic respiratory failure due to chronic bronchiectasis resulting in sepsis (tachycardia, respiratory distress, leukocytosis with known source of infection being respiratory tract) Acute lower respiratory tract infection resulting in acute exacerbation of his chronic hypoxic respiratory failure secondary to bronchiectasis-patient deteriorated overnight. On day 2 of admission, white blood cell count not improved significantly and had increasing hypoxia and shortness of breath and maintained for day 3. On discharge day today, is improving Acute hyperglycemia-stable monitor as an outpatient Leukocytosis-with left shift consistent with bacterial process-stable at discharge Generalized anxiety disorder-continue with home medications GERD-continue with home medications Admission status: Patient started off as observation, patient's condition deteriorated overnight time with hypoxia 88% despite being on his baseline of 3 L. Change patient dose of steroid and added antibiotics and, patient was better on day 3 and discharged to home, inpatient status on day 2 secondary to worsening hypoxia on day 2 ? DS: Summary Hospital Course Hospital Course: Patient with recurrent hospitalizations for acute flareup of his bronchiectasis. He was seen by his PCP, had hypoxia in the office, his oxygen status is he wears 2 to 3 L at bedtime, and does not wear oxygen during the day. In ER found to have significant hypoxia requiring supplemental oxygen, he was treated overnight in the observation status with aerosol treatments, no significant improvement in fact his hypoxia became worse with O2 sat of 88% on his 3 L. Bumped up to 4 L with improvement, white blood cell count not significant improved on day 2, left shift consistent with bacterial process will start the patient on antibiotics, increased dose of steroids, with those changes patient is improved today on day 3, so far this morning he has been weaned off of his supplemental oxygen. Plan is to get morning medications and then discharged to home with follow-up with his PCP. He is to work on getting vest therapy for at home again. Medications see list. Time Spent with Patient Time attestation: Total time spent providing and/or coordinating discharge services: Exam Constitutional Vital Signs, click to edit/add: Last Vital Signs Temp 97.8 F 03/07/24 06:23 Pulse 110 H 03/07/24 07:04 Resp 16 03/07/24 07:04 BP 115/74 03/07/24 06:23 Pulse Ox 96 03/07/24 07:04 O2 Del Method Room Air 03/07/24 07:04 O2 Flow Rate 3 03/07/24 06:23 Documenting provider has reviewed patient's vital signs: yes Common normals: no apparent distress (Improved from yesterday's mild respiratory and conversational dyspnea) Chest Common normals: inspection of chest normal Respiratory Common normals: normal respiratory effort (Improved from yesterday's conversational dyspnea); not clear to ascultation bilaterally (Minimal rhonchi) Auscultation: rhonchi (Much improved) throughout and egophony throughout; no wheezes Cardio Common normals: regular rate GI Common normals: Normal to inspection, nondistended, normoactive bowel sounds present, soft to palpation and non-tender Extremity Common normals: normal to inspection and full ROM DS: Data Data Completed and Pending Labs on day of discharge: Labs from last 24 hours 03/07/24 03/06/24 03/06/24 05:35 19:51 15:58 WBC 14.4 H RBC 5.09 Hgb 15.0 Hct 44.6 MCV 87.6 MCH 29.5 MCHC 33.6 RDW 13.1 Plt Count 258 MPV 11.6 Seg Neuts % (Manual) 96.0 H Lymphocytes % (Manual) 1.0 L Atypical Lymphs % (Man) 2.0 Monocytes % (Manual) 2.0 Eosinophils % (Manual) 0.0 L Basophils % (Manual) 0.0 L Neutrophils # (Manual) 13.82 H Lymphocytes # (Manual) 0.14 L Abs Atypical Lymphs Man 0.28 Monocytes # (Manual) 0.28 L Eosinophils # (Manual) 0.00 Basophils # (Manual) 0.00 Sodium 138 Potassium 4.2 Chloride 101 Carbon Dioxide 24.1 Anion Gap 17.1 BUN 18.0 Creatinine 0.93 Est GFR ( Amer) >60 Est GFR (Non-Af Amer) >60 BUN/Creatinine Ratio 19.4 Glucose 168 H Calcium 8.9 Total Bilirubin 0.3 AST 10 L ALT 21 Alkaline Phosphatase 79 Total Protein 6.4 Albumin 3.4 Globulin 3.0 Albumin/Globulin Ratio 1.1 POC Glucose 182 H 147 H 03/06/24 07:37 WBC RBC Hgb Hct MCV MCH MCHC RDW Plt Count MPV Seg Neuts % (Manual) Lymphocytes % (Manual) Atypical Lymphs % (Man) Monocytes % (Manual) Eosinophils % (Manual) Basophils % (Manual) Neutrophils # (Manual) Lymphocytes # (Manual) Abs Atypical Lymphs Man Monocytes # (Manual) Eosinophils # (Manual) Basophils # (Manual) Sodium Potassium Chloride Carbon Dioxide Anion Gap BUN Creatinine Est GFR ( Amer) Est GFR (Non-Af Amer) BUN/Creatinine Ratio Glucose Calcium Total Bilirubin AST ALT Alkaline Phosphatase Total Protein Albumin Globulin Albumin/Globulin Ratio POC Glucose 149 H Discharge Plan Discharge Disposition: Home, Self-Care Condition: Fair Discharge Medications: New prednisone 10 mg tablet 50 mg PO DAILY Qty: 47 0RF Rx Instructions: 5/day for 3 days. 4/day for 3 days, 3/day for 3 days, 2/day for 3 days, 1/day for 3 days, 1/2 /day for 4 days levofloxacin 750 mg tablet 750 mg PO DAILY 7 Days Qty: 7 0RF prednisone 10 mg tablet 50 mg PO DAILY Qty: 47 0RF Rx Instructions: 5/day for 3 days. 4/day for 3 days, 3/day for 3 days, 2/day for 3 days, 1/day for 3 days, 1/2 /day for 4 days levofloxacin 750 mg tablet 750 mg PO DAILY 7 Days Qty: 7 0RF Continued trazodone 50 mg tablet 50 mg PO BEDTIME PRN (Reason: sleep) escitalopram oxalate 10 mg tablet 10 mg PO .qd Rx Instructions: 1/2 TABLET DAILY FOR FIRST WEEK THEN 1 FULL TABLET THEREAFTER albuterol sulfate 2.5 mg /3 mL (0.083 %) solution for nebulization 2.5 mg inhalation Q6H PRN (Reason: shortness of breath or wheezing) Qty: 75 0RF pantoprazole 40 mg tablet,delayed release (DR/EC) 40 mg PO Q12H Rx Instructions: 30 MINUTES BEFORE MEALS hydroxyzine pamoate 25 mg capsule 25 mg PO BID PRN (Reason: anxiety) levofloxacin 500 mg tablet 500 mg PO DAILY Rx Instructions: X 10 DAYS, FINISHING 03/06/24 Print Language: Malay Forms: Portal Instructions
[2024-03-07 07:41] LABS: Glucometer 149 mg/dL (74-106)
--- NOTE | 2024-03-07 08:26 | SWNOTE1 ---
Important Message from [employer] reviewed and discussed with patient. Pt. verbalized understanding and signed the form. Original given to patient and copy placed in patient?s chart. Pt will be discharged today.
[2024-03-07] MEDS: ESCITALOPRAM 10 MG TABLET PO (08:57)
[2024-03-07] MEDS: GUAIFENESIN 600 MG TAB.ER.12H PO (08:57)
[2024-03-07] MEDS: LEVOFLOXACIN 750 MG TABLET PO (08:57)
[2024-03-07] MEDS: OMEPRAZOLE 40 MG CAPSULE.DR PO (08:57)
[2024-03-07] MEDS: INSULIN ASPART 300 UNIT/3 ML PEN SUBQ (08:58)
--- NOTE | 2024-03-11 13:03 | CM.DCFOLLOWU ---
03/11- 1st attempt. No answer
--- NOTE | 2024-03-12 14:44 | CM.DCFOLLOWU ---
1st attempt 03/12/24, no answer
== END 2024-03-07 10:28 | disposition home or self-care (01) | DRG 871 ==
LOC: ER 13:30 → MS 13:46
PROVIDERS: Internal Medicine; Admitting Provider Family Medicine; Emergency Provider Emergency Medicine; PCP Nurse Practitioner Family; Visit Provider Family Medicine
DX: A41.9 Sepsis, unspecified organism (principal); J96.21 Acute and chronic respiratory failure with hypoxia; J47.1 Bronchiectasis with (acute) exacerbation; Q32.1 Other congenital malformations of trachea; E78.1 Pure hyperglyceridemia; F41.1 Generalized anxiety disorder; K21.9 Gastro-esophageal reflux disease without esophagitis; R73.9 Hyperglycemia, unspecified; T38.0X5A Adverse effect of glucocorticoids and synthetic analogues, initial encounter; F32.A Depression, unspecified; F17.290 Nicotine dependence, other tobacco product, uncomplicated; Z98.890 Other specified postprocedural states; Z90.49 Acquired absence of other specified parts of digestive tract; Z79.899 Other long term (current) drug therapy; Z99.81 Dependence on supplemental oxygen; Z20.822 Contact with and (suspected) exposure to COVID-19
CPT/HCPCS: 36415; 71045; 80053; 82948; 83605; 84484; 85007; 85025; 85027; 87040; 87070; 87804; 87811; 93005; 94640; 94667; 94668; 94761; 96374; 99285; J1100; J1650; J2919; Q0177

== ENCOUNTER 2024-03-20 19:23 | Inpatient (IN) | payer MEDICARE, MEDICAID, SELFPAY ==
[2024-03-20] VITALS (7 sets, daily range): BP systolic 112–136; BP diastolic 66–76; PULSE 28–122; TEMP 36.8–36.9; O2SAT 90–97; BMI 23.1; BMI 20.1
--- NOTE | 2024-03-20 19:33 | ECG_ITS ---
The [facility] Test Date: 2024-03-20 Pat Name: FRANCIS GALVEZ Department: Room: - Gender: Male [employer] Tender: : 1990 Requested By: [id number] Order Number: [id number] Reading MD: CAROL ANN WOODALL Measurements Intervals [place] Rate: 119 P: 53 MN: 114 QRS: 160 QRSD: 80 T: 61 QT: 302 QTc: 373 Interpretive Statements 1120 Sinus tachycardia 2210 Short MN interval 2730 Left posterior fascicular block 9150 abnormal ECG Compared to ECG 03/05/2024 11:54:01 Left posterior fascicular block now present Electronically Signed On 03-21-2024 6:48:54 EDT by CAROL ANN WOODALL
--- NOTE | 2024-03-20 19:35 | ED.SOB1 ---
HPI - SOB/Dyspnea General Chief Complaint: Shortness of Breath/Dyspnea Stated Complaint: Vomiting Time Seen by Provider: 03/20/24 19:28 Source: patient Mode of arrival: ambulance Limitations: no limitations History of Present Illness HPI Narrative: Patient is a 33-year-old male well-known to this emergency department with a longstanding history of severe bronchiectasis, COPD who wears oxygen by nasal cannula as needed at home at 3 L. He presents to the emergency department by EMS for increasing shortness of breath for the last 24 hours. He was admitted for the same at the beginning of this month. He finished antibiotics and steroids. He reports tightness in the chest, no pedal edema, no fevers or hemoptysis. Related Data Home Medications ?Medication ?Instructions ?Recorded ?Confirmed trazodone 50 mg tablet 50 mg PO BEDTIME PRN sleep 09/13/23 03/20/24 escitalopram oxalate 10 mg tablet 10 mg PO .qd 01/09/24 03/20/24 hydroxyzine pamoate 25 mg capsule 25 mg PO BID PRN anxiety 03/05/24 03/20/24 pantoprazole 40 mg tablet,delayed 40 mg PO Q12H 03/05/24 03/20/24 release Previous Rx's ?Medication ?Instructions ?Recorded albuterol sulfate 2.5 mg/3 mL 2.5 mg (3 mL) inhalation Q6H PRN 05/25/23 (0.083 %) solution for nebulization shortness of breath or wheezing #75 mL Allergies Allergy/AdvReac Type Severity Reaction Status Date / Time Penicillins Allergy Intermediate Hives Verified 03/20/24 19:26 Review of Systems ROS Constitutional Denies: fever or chills Ears, nose, mouth, and throat Denies: throat pain or nasal congestion Cardiovascular Reports: chest pain Respiratory Reports: shortness of breath and cough Gastrointestinal Denies: nausea or vomiting Musculoskeletal Denies: back pain Integumentary/Breast Denies: rash Neurological Denies: headache, numbness in extremities or weakness in extremities Hematologic/Lymphatic Denies: easy bruising or easy bleeding [facility] Medical History (Updated 03/20/24 @ 20:52 by JONATHAN Alvarenga) Dyspnea ?R06.00 - Dyspnea, unspecified (ICD-10) Hypoxia ?R09.02 - Hypoxemia (ICD-10) Bronchiectasis with acute exacerbation ?J47.1 - Bronchiectasis with (acute) exacerbation (ICD-10) Depression with anxiety ?F41.8 - Other specified anxiety disorders (ICD-10) Pneumonia ?J18.9 - Pneumonia, unspecified organism (ICD-10) Bronchiectasis with acute lower respiratory infection ?J47.0 - Bronchiectasis with acute lower respiratory infection (ICD-10) Leukocytosis ?D72.829 - Elevated white blood cell count, unspecified (ICD-10) Steroid-induced hyperglycemia ?R73.9 - Hyperglycemia, unspecified (ICD-10) ?T38.0X5A - Adverse effect of glucocorticoids and synthetic analogues, initial encounter (ICD-10) Hyponatremia ?E87.1 - Hypo-osmolality and hyponatremia (ICD-10) Chest wall pain ?R07.89 - Other chest pain (ICD-10) Pneumonia ?J18.9 - Pneumonia, unspecified organism (ICD-10) Malnutrition of moderate degree ?E44.0 - Moderate protein-calorie malnutrition (ICD-10) Depression ?F32.A - Depression, unspecified (ICD-10) Bronchiectasis ?J47.9 - Bronchiectasis, uncomplicated (ICD-10) Chronic respiratory failure with hypoxia ?J96.11 - Chronic respiratory failure with hypoxia (ICD-10) Upper respiratory infection ?J06.9 - Acute upper respiratory infection, unspecified (ICD-10) Acute hypokalemia ?E87.6 - Hypokalemia (ICD-10) Avulsion of skin ?T14.8XXA - Other injury of unspecified body region, initial encounter (ICD-10) Influenza ?J11.1 - Influenza due to unidentified influenza virus with other respiratory manifestations (ICD-10) Marijuana abuse ?F12.10 - Cannabis abuse, uncomplicated (ICD-10) Acute hypoxic respiratory failure ?J96.01 - Acute respiratory failure with hypoxia (ICD-10) Coronavirus infection ?B34.2 - Coronavirus infection, unspecified (ICD-10) Pneumonia ?J18.9 - Pneumonia, unspecified organism (ICD-10) Hospital-acquired bacterial pneumonia ?J15.9 - Unspecified bacterial pneumonia (ICD-10) COVID-19 ?U07.1 - COVID-19 (ICD-10) GERD (gastroesophageal reflux disease) ?K21.9 - Gastro-esophageal reflux disease without esophagitis (ICD-10) 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34 - 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) History of gastrostomy tube placement 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 (ICD-10) Pneumonia ?J18.9 - Pneumonia, unspecified organism (ICD-10) Abdominal pain ?R10.9 - Unspecified abdominal pain (ICD-10) Abdominal pain, acute ?R10.9 - Unspecified abdominal pain (ICD-10) Surgical History History of fundoplication ?Z98.890 - Other specified postprocedural states (ICD-10) History of appendectomy ?Z90.49 - Acquired absence of other specified parts of digestive tract (ICD-10) H/O chest tube placement ?Z98.890 - Other specified postprocedural states (ICD-10) History of facial surgery ?Z98.890 - Other specified postprocedural states (ICD-10) Family History Mother Family history of diabetes mellitus Family history of hypertension Grandmother Family history of diabetes mellitus Grandfather Family history of myocardial infarction Social History Within the past year, how often did you have a drink containing alcohol: 2-4 times a month Within the past year, how many standard drinks containing alcohol did you have on a typical day: 1 or 2 Within the past year, how often did you have six or more drinks on one occasion: weekly Total score: 3 Score interpretation: A score of 4 or more indicates drinking is likely to affect patient's safety. 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 Known occupational exposures/hazards: No Highest level of school completed/degree received: some college, no degree Are you now , , , , never or living with a partner: In a typical week, how many times do you talk on the telephone with family, friends, or neighbors: 3 or more times per week How often do you get together with friends or relatives: once per week How often do you attend yarsani or episcopal services: never Do you belong to any clubs or organizations such as yarsani groups unions, fraternal or athletic groups, or school groups: no Total score: 1 Score interpretation: A score of less than or equal to 1 indicates the most socially isolated. Little interest or pleasure in doing things: not at all Feeling down, depressed, or hopeless: not at all Feel stressed/tense/nervous/anxious/difficulty sleeping: not at all Do you think of yourself as: straight/heterosexual Gender Identity: male Exam Narrative Exam Narrative: Gen.: Awake, alert, in no distress Head: Normocephalic, atraumatic ENT: Moist mucous membranes Respiratory: Tachypnea, unable to speak in full sentences with diffuse inspiratory and expiratory wheezing. Lung sounds are more diminished in the left upper and lower lobes Cardio: Tachycardia Gastrointestinal: Abdomen is soft, nondistended and nontender to palpation Extremities: Moves extremities equally, no pedal edema Psych: Normal mood and affect Neuro: No focal neuro deficit Skin: Warm, dry, intact Constitutional Vital Signs, click to edit/add: Last Vital Signs Temp 97.7 F 03/21/24 04:00 Pulse 88 03/21/24 04:00 Resp 18 03/21/24 04:00 BP 111/62 03/21/24 04:00 Pulse Ox 97 03/21/24 04:00 O2 Del Method Nasal Cannula 03/21/24 04:00 O2 Flow Rate 4 03/21/24 04:00 Course Vital Signs Vital signs: Vital Signs Temperature 98.2 F 03/20/24 19:26 Pulse Rate 122 H 03/20/24 19:26 Respiratory Rate 16 03/20/24 19:26 Blood Pressure 136/76 03/20/24 19:26 Pulse Oximetry 90 L 03/20/24 19:26 Oxygen Delivery Method Nasal Cannula 03/20/24 19:26 Oxygen Delivery Flow Rate 2 03/20/24 19:26 Temperature 97.7 F 03/21/24 04:00 Pulse Rate 88 03/21/24 04:00 Respiratory Rate 18 03/21/24 04:00 Blood Pressure 111/62 03/21/24 04:00 Pulse Oximetry 97 03/21/24 04:00 Oxygen Delivery Method Nasal Cannula 03/21/24 04:00 Oxygen Delivery Flow Rate 4 03/21/24 04:00 MDM - SOB/Dyspnea MDM Narrative Medical decision making narrative: On arrival to the emergency department patient was 89 to 90% on 2 L nasal cannula, he was bumped to 4 L nasal cannula which is above his baseline 3 L. He had improvement of oxygen saturation after breathing treatment. Vapotherm was ordered for the patient but we will defer at this time as he is more stable although he continues to have tachypnea and increased work of breathing. Chest x-ray is stable, possible increasing left perihilar opacity. Laboratory studies reviewed and noted showing leukocytosis, normal electrolytes and troponin. He is negative for COVID and influenza. He was treated with Solu-Medrol, magnesium sulfate, albuterol breathing treatment. He was given Levaquin for antibiotic coverage and we will admit for further evaluation and treatment per primary care for COPD exacerbation and shortness of breath SUPERVISED APC VISIT, PHYSICIAN ATTESTATION: Based on the medical record the care appears appropriate. ? Medical Records Attestation: I reviewed the patient's medical records. Lab Data Attestation: I reviewed the patient's lab results. Labs: Lab Results 03/20/24 03/20/24 Range/Units 19:31 20:00 WBC 18.6 H (4.0-11.0) 10^3/uL RBC 5.54 (4.70-6.10) 10^6/uL Hgb 16.4 (14.0-18.0) g/dL Hct 48.9 (42.0-54.0) % MCV 88.3 (80.0-94.0) fL MCH 29.6 (25.9-34.0) pg MCHC 33.5 (29.9-35.2) g/dL RDW 12.8 (11.0-15.0) % Plt Count 243 (150-450) 10^3/uL MPV 12.1 (9.5-13.5) fL Neut % (Auto) 84.3 H (43.0-75.0) % Lymph % (Auto) 8.2 L (20.5-60.0) % [place] % (Auto) 6.4 (1.7-12.0) % Eos % (Auto) 0.3 L (0.9-7.0) % Baso % (Auto) 0.4 (0.2-2.0) % Neut # (Auto) 15.7 H (1.4-6.5) 10^3/uL Lymph # (Auto) 1.5 (1.2-3.8) 10^3/uL [place] # (Auto) 1.2 H (0.3-0.8) 10^3/uL Eos # (Auto) 0.1 (0.0-0.7) 10^3/uL Baso # (Auto) 0.1 (0.0-0.1) 10^3/uL Abs Immat Gran (auto) 0.07 H (0.00-0.03) 10^3/uL Imm/Tot Granulo (auto) 0.4 (0.0-0.5) % PT 10.5 (9.0-11.6) sec INR 0.99 VBG pH 7.338 (7.330-7.430) VBG pCO2 50.9 (40.0-52.0) mmHg Sodium 142 (136-145) mmol/L Potassium 3.7 (3.5-5.1) mmol/L Chloride 103 (98-107) mmol/L Carbon Dioxide 26.0 (21.0-32.0) mmol/L Anion Gap 16.7 BUN 12.0 (7.0-18.0) mg/dL Creatinine 1.02 (0.70-1.30) mg/dL Est GFR ( Amer) >60 (>=60 mL/min/1.73m^2) Est GFR (Non-Af Amer) >60 (>=60 mL/min/1.73m^2) BUN/Creatinine Ratio 11.8 Glucose 89 (74-106) mg/dL Lactate 1.5 (0.4-2.0) mmol/L Calcium 9.4 (8.5-10.1) mg/dL Magnesium 1.8 (1.8-2.4) mg/dL Total Bilirubin 1.0 (0.2-1.0) mg/dL AST 18 (15-37) U/L ALT 18 (16-63) U/L Alkaline Phosphatase 116 (46-116) U/L Troponin I High Sens <4.0 L (4.0-76.1) pg/mL C-Reactive Protein 6.41 H (<=0.50) mg/dL NT-Pro-B Natriuret Pep 23.0 (<=450.0) pg/mL Total Protein 7.8 (6.4-8.2) g/dL Albumin 3.8 (3.4-5.0) g/dL Globulin 4.0 g/dL Albumin/Globulin Ratio 0.9 Influenza Type A Ag Negative Influenza Type B Ag Negative SARS-CoV-2 Ag (CV2AG) Negative (NEGATIVE) Imaging Data Chest x-ray: Attestation: I have reviewed the pertinent imaging results. Radiologist's impression: ITS Impressions Chest X-Ray 03/20/24 20:23 IMPRESSION: Consolidation and/or atelectasis in the medial right lung/right middle lobe. Atelectasis and/or infiltrate in the left lower lung. These are not significantly changed. Bilateral bronchiectasis. Hyperinflation both lungs. Remainder the chest is unremarkable. Electronically authenticated by: PATRICK OCONNOR Date: 03/20/2024 22:05 ECG Data Attestation: I personally reviewed and interpreted this ECG as follows: (Sinus tachycardia at a rate of 119, no acute ST elevation or ectopy. EKG reviewed by attending physician) Discharge Plan Discharge Chief Complaint: Shortness of Breath/Dyspnea Clinical Impression: Shortness of breath, COPD exacerbation, Bronchiectasis Patient Disposition: Admitted As Inpatient Time of Disposition Decision: 20:52 Condition: Good Discharge Date/Time: 03/20/24 21:18
[2024-03-20 19:42] LABS: Basophils Absolute Auto 0.1 10^3/uL (0.0-0.1); Basophils Percent Auto 0.4 % (0.2-2.0); Eosinophils Absolute Auto 0.1 10^3/uL (0.0-0.7); Eosinophils Percent Auto 0.3 % (0.9-7.0); Hematocrit 48.9 % (42.0-54.0); Hemoglobin 16.4 g/dL (14.0-18.0); Immature Granulocytes Abs Auto 0.07 10^3/uL (0.00-0.03); Immature Granulocytes Pct Auto 0.4 % (0.0-0.5); Lymphocytes Absolute Auto 1.5 10^3/uL (1.2-3.8); Lymphocytes Percent Auto 8.2 % (20.5-60.0); Mean Corpuscular HGB Conc 33.5 g/dL (29.9-35.2); Mean Corpuscular Hemoglobin 29.6 pg (25.9-34.0); Mean Corpuscular Volume 88.3 fL (80.0-94.0); Mean Platelet Volume 12.1 fL (9.5-13.5); Monocytes Absolute Auto 1.2 10^3/uL (0.3-0.8); Monocytes Percent Auto 6.4 % (1.7-12.0); Neutrophils Absolute Auto 15.7 10^3/uL (1.4-6.5); Neutrophils Percent Auto 84.3 % (43.0-75.0); Platelet Count 243 10^3/uL (150-450); Red Blood Count 5.54 10^6/uL (4.70-6.10); Red Cell Distribution Width 12.8 % (11.0-15.0); White Blood Count 18.6 10^3/uL (4.0-11.0)
[2024-03-20 19:43] LABS: PCO2 VBG 50.9 mmHg (40.0-52.0); pH VBG 7.338 (7.330-7.430)
[2024-03-20] MEDS: ALBUTEROL SULFATE 2.5 MG/3 ML VIAL NEB IH (19:50)
[2024-03-20 19:59] LABS: INR 0.99; Prothrombin Time 10.5 sec (9.0-11.6)
[2024-03-20 20:05] LABS: Lactate/Lactic Acid 1.5 mmol/L (0.4-2.0)
[2024-03-20 20:11] LABS: Troponin I High Sensitivity <4.0 pg/mL (4.0-76.1)
[2024-03-20 20:12] LABS: Alanine Aminotransferase 18 U/L (16-63); Albumin Globulin Ratio 0.9; Albumin Level 3.8 g/dL (3.4-5.0); Alkaline Phosphatase 116 U/L (46-116); Anion Gap 16.7; Aspartate Amino Transferase 18 U/L (15-37); BUN Creatinine Ratio 11.8; Calcium 9.4 mg/dL (8.5-10.1); Chloride 103 mmol/L (98-107); Estimated GFR (African America >60 (>=60 mL/min/1.73m^2); Estimated GFR (Non-African Ame >60 (>=60 mL/min/1.73m^2); Glucose 89 mg/dL (74-106); Magnesium 1.8 mg/dL (1.8-2.4); Potassium 3.7 mmol/L (3.5-5.1); Sodium 142 mmol/L (136-145); Total Protein 7.8 g/dL (6.4-8.2)
[2024-03-20 20:18] LABS: Influenza Virus A Antigen Negative; Influenza Virus B Antigen Negative; Internal Control Within Normal Limits; SARS-CoV-2 Ag NEGATIVE (NEGATIVE)
--- NOTE | 2024-03-20 20:23 | XR_ITS ---
The [address] [address] Patient Name: FRANCIS GALVEZ MRN: [id number] date: 1990 Sex: M Assigned Patient Location: ER Current Patient Location: [place] Accession/Order Number: [id number] Exam Date: 03/20/2024 20:28 Report Date: 03/20/2024 22:05 At the request of: RNO MARTINEZ Procedure: XR chest 1V Exam: Radiographs: XR chest 1V Reason for exam: Shortness of breath Comparison: Chest x-ray dated 03/05/2024 XR/XR chest 1V IMPRESSION: Consolidation and/or atelectasis in the medial right lung/right middle lobe. Atelectasis and/or infiltrate in the left lower lung. These are not significantly changed. Bilateral bronchiectasis. Hyperinflation both lungs. Remainder the chest is unremarkable. Electronically authenticated by: PATRICK OCONNOR Date: 03/20/2024 22:05
[2024-03-20 21:04] LABS: C Reactive Protein 6.41 mg/dL (<=0.50)
[2024-03-20] MEDS: 0.9 % SODIUM CHLORIDE 1,000 ML 1000 ML IV (21:10)
[2024-03-20] MEDS: METHYLPREDNISOLONE SOD SUCC PF 125 MG/2 ML VIAL IVP (21:10)
[2024-03-20] MEDS: MAGNESIUM SULFATE IN WATER 2 GM/50 ML PREMIX IV (21:10)
[2024-03-20] MEDS: LEVOFLOXACIN IN DEXTROSE 5 % 750 MG/150 ML PREMIX 100 MG IV (21:11)
[2024-03-20] MEDS: IPRATROPIUM/ALBUTEROL SULFATE 3 ML AMPUL.NEB IH (23:11)
[2024-03-21] VITALS (13 sets, daily range): BP systolic 104–127; BP diastolic 62–74; PULSE 88–115; TEMP 36.2–36.7; O2SAT 93–98
[2024-03-21] MEDS: IPRATROPIUM/ALBUTEROL SULFATE 3 ML AMPUL.NEB IH ×5 (03:48→22:48)
[2024-03-21 05:50] LABS: Hematocrit 42.3 % (42.0-54.0); Hemoglobin 14.1 g/dL (14.0-18.0); Mean Corpuscular HGB Conc 33.3 g/dL (29.9-35.2); Mean Corpuscular Hemoglobin 29.4 pg (25.9-34.0); Mean Corpuscular Volume 88.1 fL (80.0-94.0); Mean Platelet Volume 11.8 fL (9.5-13.5); Platelet Count 205 10^3/uL (150-450); Red Cell Distribution Width 12.6 % (11.0-15.0); White Blood Count 11.1 10^3/uL (4.0-11.0)
[2024-03-21 06:10] LABS: Alanine Aminotransferase 17 U/L (16-63); Albumin Globulin Ratio 0.9; Albumin Level 3.2 g/dL (3.4-5.0); Alkaline Phosphatase 86 U/L (46-116); Aspartate Amino Transferase 10 U/L (15-37); BUN Creatinine Ratio 10.3; Calcium 8.9 mg/dL (8.5-10.1); Carbon Dioxide 26.6 mmol/L (21.0-32.0); Chloride 105 mmol/L (98-107); Estimated GFR (African America >60 (>=60 mL/min/1.73m^2); Estimated GFR (Non-African Ame >60 (>=60 mL/min/1.73m^2); Globulin 3.6 g/dL; Glucose 163 mg/dL (74-106); Lymphocytes Absolute Manual 0.11 10^3/uL (1.20-3.80); Potassium 4.6 mmol/L (3.5-5.1); Segmented Neut Absolute Manual 10.98 10^3/uL (1.4-6.5); Sodium 142 mmol/L (136-145); Total Protein 6.8 g/dL (6.4-8.2)
--- NOTE | 2024-03-21 08:21 | P.HP_ITS ---
HPI H&P: HPI History of Present Illness Chief complaint: Vomiting SOB COPD EXACERBATION Narrative: Patient recurrent bronchiectasis, presented to the emergency room, he had had a pretty good day the day before, started having cough with emesis, after the emesis started having severe cough and shortness of breath. Did not check his oxygen at home, could not find results of oxygenation on squad run, in ER he is only satting 90% on 2 L. Chest x-ray confirmed right middle lobe pneumonia and possible left lower lobe pneumonia as well. This is likely aspiration pneumonia on top of his usual bronchiectasis. He will be admitted for workup and treatment of same. His baseline is he only wears supplemental oxygen at bedtime Opioid HPI Opioid Management Most Recent Pain and Opioid Data: Last Pain Scale 8 03/06/24 18:00 03/06/24 Last Pain Assessment 03/21/24 07:42 Last ORT Total Score 1 03/20/24 21:36 03/20/24 Last ORT Risk Category Low Risk 03/20/24 21:36 03/20/24 Review of Systems ROS Status of ROS 10 or more systems reviewed and unremark able except as noted in history and below [facility] Medical History (Updated 03/21/24 @ 08:25 by Shelton Elkins MD) Dyspnea ?R06.00 - Dyspnea, unspecified (ICD-10) Hypoxia ?R09.02 - Hypoxemia (ICD-10) Bronchiectasis with acute exacerbation ?J47.1 - Bronchiectasis with (acute) exacerbation (ICD-10) Depression with anxiety ?F41.8 - Other specified anxiety disorders (ICD-10) Pneumonia ?J18.9 - Pneumonia, unspecified organism (ICD-10) Bronchiectasis with acute lower respiratory infection ?J47.0 - Bronchiectasis with acute lower respiratory infection (ICD-10) Leukocytosis ?D72.829 - Elevated white blood cell count, unspecified (ICD-10) Steroid-induced hyperglycemia ?R73.9 - Hyperglycemia, unspecified (ICD-10) ?T38.0X5A - Adverse effect of glucocorticoids and synthetic analogues, initial encounter (ICD-10) Hyponatremia ?E87.1 - Hypo-osmolality and hyponatremia (ICD-10) Chest wall pain ?R07.89 - Other chest pain (ICD-10) Pneumonia ?J18.9 - Pneumonia, unspecified organism (ICD-10) Malnutrition of moderate degree ?E44.0 - Moderate protein-calorie malnutrition (ICD-10) Depression ?F32.A - Depression, unspecified (ICD-10) Bronchiectasis ?J47.9 - Bronchiectasis, uncomplicated (ICD-10) Chronic respiratory failure with hypoxia ?J96.11 - Chronic respiratory failure with hypoxia (ICD-10) Upper respiratory infection ?J06.9 - Acute upper respiratory infection, unspecified (ICD-10) Acute hypokalemia ?E87.6 - Hypokalemia (ICD-10) Avulsion of skin ?T14.8XXA - Other injury of unspecified body region, initial encounter (ICD- 10) Influenza ?J11.1 - Influenza due to unidentified influenza virus with other respiratory manifestations (ICD-10) Marijuana abuse ?F12.10 - Cannabis abuse, uncomplicated (ICD-10) Acute hypoxic respiratory failure ?J96.01 - Acute respiratory failure with hypoxia (ICD-10) Coronavirus infection ?B34.2 - Coronavirus infection, unspecified (ICD-10) Pneumonia ?J18.9 - Pneumonia, unspecified organism (ICD-10) Hospital-acquired bacterial pneumonia ?J15.9 - Unspecified bacterial pneumonia (ICD-10) COVID-19 ?U07.1 - COVID-19 (ICD-10) GERD (gastroesophageal reflux disease) ?K21.9 - Gastro-esophageal reflux disease without esophagitis (ICD-10) 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34 - 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) History of gastrostomy tube placement 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 (ICD-10) Pneumonia ?J18.9 - Pneumonia, unspecified organism (ICD-10) Abdominal pain ?R10.9 - Unspecified abdominal pain (ICD-10) Abdominal pain, acute ?R10.9 - Unspecified abdominal pain (ICD-10) Surgical History History of fundoplication ?Z98.890 - Other specified postprocedural states (ICD-10) History of appendectomy ?Z90.49 - Acquired absence of other specified parts of digestive tract (ICD- 10) H/O chest tube placement ?Z98.890 - Other specified postprocedural states (ICD-10) History of facial surgery ?Z98.890 - Other specified postprocedural states (ICD-10) Family History Mother Family history of diabetes mellitus Family history of hypertension Grandmother Family history of diabetes mellitus Grandfather Family history of myocardial infarction Social History Within the past year, how often did you have a drink containing alcohol: 2-4 times a month Within the past year, how many standard drinks containing alcohol did you have on a typical day: 1 or 2 Within the past year, how often did you have six or more drinks on one occasion: weekly Total score: 3 Score interpretation: A score of 4 or more indicates drinking is likely to affect patient's safety. 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 Known occupational exposures/hazards: No Highest level of school completed/degree received: some college, no degree Are you now , , , , never or living with a partner: In a typical week, how many times do you talk on the telephone with family, friends, or neighbors: 3 or more times per week How often do you get together with friends or relatives: once per week How often do you attend latter day or moravian services: never Do you belong to any clubs or organizations such as latter day groups unions, fraternal or athletic groups, or school groups: no Total score: 1 Score interpretation: A score of less than or equal to 1 indicates the most socially isolated. Little interest or pleasure in doing things: not at all Feeling down, depressed, or hopeless: not at all Feel stressed/tense/nervous/anxious/difficulty sleeping: not at all Do you think of yourself as: straight/heterosexual Gender Identity: male Meds Home Medications and Allergies Home Medications ?Medication ?Instructions ?Recorded ?Confirmed ?Type albuterol sulfate 2.5 mg/3 mL 2.5 mg (3 mL) inhalation Q6H PRN 05/25/23 03/20/24 Rx (0.083 %) solution for nebulization shortness of breath or wheezing #75 mL trazodone 50 mg tablet 50 mg PO BEDTIME PRN sleep 09/13/23 03/20/24 History escitalopram oxalate 10 mg tablet 10 mg PO .qd 01/09/24 03/20/24 History hydroxyzine pamoate 25 mg capsule 25 mg PO BID PRN anxiety 03/05/24 03/20/24 History pantoprazole 40 mg tablet,delayed 40 mg PO Q12H 03/05/24 03/20/24 History release Allergies Allergy/AdvReac Type Severity Reaction Status Date / Time Penicillins Allergy Intermediate Hives Verified 03/20/24 19:26 Exam Constitutional Vital Signs, click to edit/add: Last Vital Signs Temp 98.1 F 03/21/24 07:41 Pulse 104 H 03/21/24 07:41 Resp 20 03/21/24 07:41 BP 115/72 03/21/24 07:41 Pulse Ox 95 03/21/24 07:41 O2 Del Method Nasal Cannula 03/21/24 07:41 O2 Flow Rate 3.5 03/21/24 07:41 Documenting provider has reviewed patient's vital signs: yes Common normals: apparent distress (Mild conversational dyspnea - he does not have at baseline) Chest Common normals: inspection of chest normal Respiratory Common normals: abnormal respiratory effort (Mild conversational dyspnea-not at his baseline) and not clear to ascultation bilaterally Auscultation: rhonchi throughout and egophony (Right middle lobe) left lower Cardio Common normals: regular rate GI Common normals: Normal to inspection, nondistended, normoactive bowel sounds present, soft to palpation and non-tender Extremity Common normals: normal to inspection and full ROM Results Labs Labs: Short CBC 03/20/24 03/21/24 Range/Units 19:31 05:10 WBC 18.6 H 11.1 H (4.0-11.0) 10^3/uL Hgb 16.4 14.1 (14.0-18.0) g/dL Hct 48.9 42.3 (42.0-54.0) % Plt Count 243 205 (150-450) 10^3/uL BMP 03/20/24 03/21/24 19:31 05:10 Sodium 142 142 Potassium 3.7 4.6 Chloride 103 105 Carbon Dioxide 26.0 26.6 BUN 12.0 9.0 Creatinine 1.02 0.87 Glucose 89 163 H Calcium 9.4 8.9 Liver Function 03/20/24 03/21/24 Range/Units 19:31 05:10 Total Bilirubin 1.0 1.0 (0.2-1.0) mg/dL AST 18 10 L (15-37) U/L ALT 18 17 (16-63) U/L Alkaline Phosphatase 116 86 (46-116) U/L Albumin 3.8 3.2 L (3.4-5.0) g/dL ABG ABG results: 03/20/24 19:31 VBG pH 7.338 VBG pCO2 50.9 Assessment and Plan Assessment and Plan (1) Bronchiectasis: (2) COPD exacerbation: (3) Shortness of breath: (4) GERD (gastroesophageal reflux disease): Qualifiers: Esophagitis presence: esophagitis presence not specified Qualified Code(s): K21.9 - Gastro-esophageal reflux disease without esophagitis (5) Chronic dyspnea: (6) Chronic respiratory failure with hypoxia: (7) Mild protein-calorie malnutrition: (8) Hyperglycemia: (9) Aspiration pneumonia: (10) Right middle lobe pneumonia: Plan Admission findings: Relative hypoxia with O2 sat 89 to 90% on supplemental oxygen at 2 L, sinus tachycardia, respiratory distress, leukocytosis with left shift consistent with bacterial process, hyperglycemia due to likely aspiration pneumonia with right middle lobe and left lower lobe pneumonia on chest x-ray with egophony on exam Aspiration pneumonia with pneumonia in the right middle lobe and left lower lobe in a patient with chronic bronchiectasis causing acute exacerbation of COPD- steroids, aerosols, IV antibiotics to include coverage for anaerobes will change patient to Zosyn, try to obtain sputum culture, blood culture pending Hyperglycemia-Place patient on insulin sliding scale likely steroid-induced Mild protein calorie malnutrition-diet management Depression-Continue home medications GERD-continue with home medications Admission status: Patient with acute hypoxic respiratory failure secondary to aspiration pneumonia with infiltrate in the right middle lobe and left lower lobe causing acute exacerbation of his bronchiectasis. Medically necessary treatment will span 2 midnights. Inpatient status.
[2024-03-21] MEDS: METHYLPREDNISOLONE SOD SUCC PF 125 MG/2 ML VIAL 60 MG IVP ×3 (08:55→21:35)
--- NOTE | 2024-03-21 10:38 | CM.NOTE ---
Important Message From [employer] discussed with pt, pt verbalizes understanding and signs paper. Original given to pt and copy placed on pt's chart.
[2024-03-21 11:53] LABS: Glucometer 144 mg/dL (74-106)
[2024-03-21 16:02] LABS: Glucometer 227 mg/dL (74-106)
[2024-03-21] MEDS: INSULIN ASPART 300 UNIT/3 ML PEN SUBQ ×2 (16:06→21:37)
[2024-03-21 21:37] LABS: Glucometer 301 mg/dL (74-106)
[2024-03-21] MEDS: TRAZODONE HCL 50 MG TABLET PO (23:06)
[2024-03-22] VITALS (7 sets, daily range): BP systolic 118–133; BP diastolic 59–74; PULSE 97–120; TEMP 36.4–36.9; O2SAT 91–98
[2024-03-22] MEDS: IPRATROPIUM/ALBUTEROL SULFATE 3 ML AMPUL.NEB IH ×4 (03:56→14:36)
[2024-03-22] MEDS: METHYLPREDNISOLONE SOD SUCC PF 125 MG/2 ML VIAL 60 MG IVP ×2 (04:24→08:06)
[2024-03-22 06:00] LABS: Basophils Percent Auto 0.1 % (0.2-2.0); Hematocrit 39.9 % (42.0-54.0); Hemoglobin 13.3 g/dL (14.0-18.0); Immature Granulocytes Abs Auto 0.08 10^3/uL (0.00-0.03); Immature Granulocytes Pct Auto 0.6 % (0.0-0.5); Lymphocytes Absolute Auto 0.4 10^3/uL (1.2-3.8); Mean Corpuscular HGB Conc 33.3 g/dL (29.9-35.2); Mean Corpuscular Hemoglobin 29.3 pg (25.9-34.0); Mean Corpuscular Volume 87.9 fL (80.0-94.0); Mean Platelet Volume 12.2 fL (9.5-13.5); Monocytes Absolute Auto 0.3 10^3/uL (0.3-0.8); Monocytes Percent Auto 2.3 % (1.7-12.0); Platelet Count 215 10^3/uL (150-450); Red Blood Count 4.54 10^6/uL (4.70-6.10); Red Cell Distribution Width 12.7 % (11.0-15.0); White Blood Count 13.8 10^3/uL (4.0-11.0)
[2024-03-22 06:15] LABS: BUN Creatinine Ratio 16.3; Calcium 8.8 mg/dL (8.5-10.1); Chloride 105 mmol/L (98-107); Estimated GFR (African America >60 (>=60 mL/min/1.73m^2); Estimated GFR (Non-African Ame >60 (>=60 mL/min/1.73m^2); Glucose 329 mg/dL (74-106); Sodium 139 mmol/L (136-145)
[2024-03-22 07:44] LABS: Glucometer 261 mg/dL (74-106)
[2024-03-22] MEDS: INSULIN ASPART 300 UNIT/3 ML PEN SUBQ ×2 (08:05→11:48)
[2024-03-22] MEDS: ENOXAPARIN SODIUM 40 MG/0.4 ML SYRINGE SUBQ (08:06)
--- NOTE | 2024-03-22 08:36 | PM.PN ---
Progress Note: Subjective Subjective Interval history: Patient feels better today but still having shortness of breath with ambulation and some wheezing in the right side. Limited to no cough. Denies fevers or chills. Exam Narrative Exam Narrative: General: Patient is alert, and oriented to person, place and time with normal affect, proper hygiene, short of breath with conversing Skin: no visible rashes, or ulcers Head: atraumatic, acephalic Eyes: PERRLA, no nystagmus present, conjunctiva clear, no scleral icterus Ears: normal gross auditory acuity Heart: Normal rate and rhythm, no murmurs/rubs/gallops Lungs: audible wheezes worse on the right, no crackles diminished breath sounds all lung clifford Abdomen: Normal audible bowel sounds, no distension, No palpable masses, no organomegaly, no rebound/guarding/ or rigidity Musculoskeletal: no swelling bilateral lower extremities Neuro: CN II-X grossly intact Constitutional Vital Signs, click to edit/add: Last Vital Signs Temp 97.6 F 03/22/24 08:15 Pulse 108 H 03/22/24 08:15 Resp 18 03/22/24 08:15 BP 133/67 03/22/24 08:15 Pulse Ox 93 L 03/22/24 08:15 O2 Del Method Room Air 03/22/24 08:15 O2 Flow Rate 3 03/22/24 07:01 Progress Note: Objective Labs Labs: Short CBC 03/22/24 Range/Units 05:47 WBC 13.8 H (4.0-11.0) 10^3/uL Hgb 13.3 L (14.0-18.0) g/dL Hct 39.9 L (42.0-54.0) % Plt Count 215 (150-450) 10^3/uL BMP 03/22/24 05:47 Sodium 139 Potassium 4.0 Chloride 105 Carbon Dioxide 25.0 BUN 15.0 Creatinine 0.92 Glucose 329 H Calcium 8.8 Progress Note: A&P Assessment and Plan (1) Right middle lobe pneumonia: Assessment and Plan: patient had episode of vomiting, could have been aspiration verses his chronic bronchiectasis with infection. Continue IV steroids. Since just having Levaquin last week, will place on zithomycin IV 500mg daily for more of a atypical COPD picture. Qualifiers: Pneumonia type: due to unspecified organism Qualified Code(s): J18.9 - Pneumonia, unspecified organism (2) Bronchiectasis: Assessment and Plan: see #1, he has a follow up with pulmary on Mar 29. Qualifiers: Bronchiectasis type: with acute lower respiratory infection Qualified Code(s): J47.0 - Bronchiectasis with acute lower respiratory infection (3) COPD exacerbation: Assessment and Plan: see #1 (4) GERD (gastroesophageal reflux disease): Assessment and Plan: continue protonix Qualifiers: Esophagitis presence: esophagitis presence not specified Qualified Code(s): K21.9 - Gastro-esophageal reflux disease without esophagitis (5) Chronic respiratory failure with hypoxia: Assessment and Plan: wears 3L NC at night time, continue this (6) Mild protein-calorie malnutrition: (7) Hyperglycemia: Assessment and Plan: will place on SSI, steroid induced, decrease IV steroids to 40mg from 60mg q6 hours Plan Patient is a full code continue Lovenox for DVT prophylaxis Patient will need 1-2 more days of hospital necessary care.
[2024-03-22 11:31] LABS: Glucometer 158 mg/dL (74-106)
[2024-03-22] MEDS: METHYLPREDNISOLONE SOD SUCC PF 40 MG/ML VIAL IVP (13:38)
[2024-03-22] MEDS: AZITHROMYCIN 500 MG in 0.9 % SODIUM CHLORIDE 250 ML 125 MG IV (13:38)
--- NOTE | 2024-03-22 15:54 | PM.DS1 ---
DS: Providers Provider Date of admission: 03/20/24 21:18 Primary care physician: REBEKAH BARBOZA Admitting clinician: Shelton Elkins Consults: 03/21/24 08:18 Consult to Pharmacy Routine Consulting Provider: Reason for consultation: Please Adair me when Med Rec is Updated Has provider been notified: No Occupational Therapy Eval and Treat Routine Reason for consultation: Only if needed for Rehab Has provider been notified: No Physical Therapy Eval and Treat Routine Reason for consultation: Eval and Treat Has provider been notified: No Discharging clinician: Kassandra Sheppard DS: Diagnosis Discharge Diagnosis (1) Right middle lobe pneumonia: Qualifiers: Pneumonia type: due to unspecified organism Qualified Code(s): J18.9 - Pneumonia, unspecified organism (2) Bronchiectasis: Qualifiers: Bronchiectasis type: with acute lower respiratory infection Qualified Code(s): J47.0 - Bronchiectasis with acute lower respiratory infection (3) COPD exacerbation: (4) GERD (gastroesophageal reflux disease): Qualifiers: Esophagitis presence: esophagitis presence not specified Qualified Code(s): K21.9 - Gastro-esophageal reflux disease without esophagitis (5) Chronic respiratory failure with hypoxia: (6) Mild protein-calorie malnutrition: (7) Hyperglycemia: DS: Summary Hospital Course Hospital Course: Please see progress note dated 03/22/24; patient recovered faster than anticipated and will be discharged home this evening on Zithromax and prednisone 20mg BID x 7 days, I have also given him an albuterol inhaler. He is to keep pulmonary appointment and also call his PCP sunday morning to get hospital follow up. Return to the ER with any worsening signs or symptoms. Patient is ambulating and maintaining oxygen saturations >90%. He is to continue 3L NC at night time. Status at Discharge Functional status at discharge: independent ambulation Overall status at discharge: patient is progressing back to baseline Time Spent with Patient Time attestation: Total time spent providing and/or coordinating discharge services: Time spent: greater than 30 minutes Exam Narrative Exam Narrative: please see progress note dated 03/22/24 Constitutional Vital Signs, click to edit/add: Last Vital Signs Temp 97.8 F 03/22/24 13:35 Pulse 120 H 03/22/24 14:37 Resp 18 03/22/24 14:37 BP 118/59 03/22/24 13:35 Pulse Ox 95 03/22/24 14:37 O2 Del Method Room Air 03/22/24 14:37 O2 Flow Rate 3 03/22/24 07:01 DS: Data Data Completed and Pending Labs on day of discharge: Labs from last 24 hours 03/22/24 03/22/24 03/22/24 11:30 07:43 05:47 WBC 13.8 H RBC 4.54 L Hgb 13.3 L Hct 39.9 L MCV 87.9 MCH 29.3 MCHC 33.3 RDW 12.7 Plt Count 215 MPV 12.2 Neut % (Auto) 94.0 H Lymph % (Auto) 3.0 L Snyder % (Auto) 2.3 Eos % (Auto) 0.0 L Baso % (Auto) 0.1 L Neut # (Auto) 13.0 H Lymph # (Auto) 0.4 L Snyder # (Auto) 0.3 Eos # (Auto) 0.0 Baso # (Auto) 0.0 Abs Immat Gran (auto) 0.08 H Imm/Tot Granulo (auto) 0.6 H Sodium 139 Potassium 4.0 Chloride 105 Carbon Dioxide 25.0 Anion Gap 13.0 BUN 15.0 Creatinine 0.92 Est GFR ( Amer) >60 Est GFR (Non-Af Amer) >60 BUN/Creatinine Ratio 16.3 Glucose 329 H Calcium 8.8 POC Glucose 158 H 261 H 03/21/24 03/21/24 21:36 16:01 WBC RBC Hgb Hct MCV MCH MCHC RDW Plt Count MPV Neut % (Auto) Lymph % (Auto) Snyder % (Auto) Eos % (Auto) Baso % (Auto) Neut # (Auto) Lymph # (Auto) Snyder # (Auto) Eos # (Auto) Baso # (Auto) Abs Immat Gran (auto) Imm/Tot Granulo (auto) Sodium Potassium Chloride Carbon Dioxide Anion Gap BUN Creatinine Est GFR ( Amer) Est GFR (Non-Af Amer) BUN/Creatinine Ratio Glucose Calcium POC Glucose 301 H 227 H Preliminary micro results at discharge 03/20/24 20:00 Blood Culture Result 2 - Preliminary Blood NO GROWTH AT 36-48 HOURS. FINAL TO FOLLOW. 03/20/24 19:50 Blood Culture Result 1 - Preliminary Blood NO GROWTH AT 36-48 HOURS. FINAL TO FOLLOW. Discharge Plan Discharge Disposition: Home, Self-Care Condition: Good Discharge Medications: New azithromycin [Zithromax] 250 mg tablet See Rx Instructions .ROUTE .COMPLEX Qty: 6 0RF Rx Instructions: For 250 mg dose pack: take 500 mg today (day 1), then 250 mg for 4 days (days 2-5) prednisone 20 mg tablet 20 mg PO BID 7 Days Qty: 14 0RF albuterol sulfate 90 mcg/actuation HFA aerosol inhaler 1 inh inhalation Q4H PRN (Reason: shortness of breath or wheezing) Qty: 8.5 0RF Continued trazodone 50 mg tablet 50 mg PO BEDTIME PRN (Reason: sleep) escitalopram oxalate 10 mg tablet 10 mg PO .qd Rx Instructions: 1/2 TABLET DAILY FOR FIRST WEEK THEN 1 FULL TABLET THEREAFTER albuterol sulfate 2.5 mg /3 mL (0.083 %) solution for nebulization 2.5 mg inhalation Q6H PRN (Reason: shortness of breath or wheezing) Qty: 75 0RF pantoprazole 40 mg tablet,delayed release (DR/EC) 40 mg PO Q12H Rx Instructions: 30 MINUTES BEFORE MEALS hydroxyzine pamoate 25 mg capsule 25 mg PO BID PRN (Reason: anxiety) Activity: increase activity as tolerated and wear oxygen at night Activity Detail: 3L NC at night time Diet: advance to your usual diet Print Language: British Forms: Portal Instructions Follow Up Appointments: Please keep pulmonary appointment Mar 29, please call PCP office sunday and make a hospital follow up for 3-5 days
--- NOTE | 2024-03-24 15:22 | CM.DCFOLLOWU ---
03/24-1st attempt. No answer
--- NOTE | 2024-03-25 12:58 | CM.DCFOLLOWU ---
03/24- 2nd attempt. No answer
== END 2024-03-22 16:25 | disposition home or self-care (01) | DRG 190 ==
LOC: ER 20:52 → MS 21:22
PROVIDERS: Physician Assistant; Registered Nurse; Admitting Provider Family Medicine; Emergency Provider Internal Medicine; PCP Nurse Practitioner Family; Visit Provider Family Medicine
DX: J44.1 Chronic obstructive pulmonary disease with (acute) exacerbation (principal); J18.9 Pneumonia, unspecified organism; J96.21 Acute and chronic respiratory failure with hypoxia; E44.1 Mild protein-calorie malnutrition; J47.1 Bronchiectasis with (acute) exacerbation; Q32.1 Other congenital malformations of trachea; J47.0 Bronchiectasis with acute lower respiratory infection; R73.9 Hyperglycemia, unspecified; K21.9 Gastro-esophageal reflux disease without esophagitis; F41.8 Other specified anxiety disorders; F17.290 Nicotine dependence, other tobacco product, uncomplicated; Z87.01 Personal history of pneumonia (recurrent); Z99.81 Dependence on supplemental oxygen; Z98.890 Other specified postprocedural states; Z90.49 Acquired absence of other specified parts of digestive tract; Z79.899 Other long term (current) drug therapy; Z86.16 Personal history of COVID-19; Z68.20 Body mass index [BMI] 20.0-20.9, adult; Z20.822 Contact with and (suspected) exposure to COVID-19
CPT/HCPCS: 36415; 71045; 80048; 80053; 82800; 82948; 83605; 83735; 83880; 84484; 85007; 85025; 85027; 85610; 86140; 87040; 87070; 87804; 87811; 93005; 94640; 94667; 94668; 94761; 96374; 96375; 97161; 99285; 99406; J0456; J1650; J2919; J3475

== ENCOUNTER 2024-03-31 13:05 | Emergency (ER) | payer MEDICARE, MEDICAID, SELFPAY ==
[2024-03-31 13:15] VITALS: BP 123/81; PULSE 110; TEMP 36.6; O2SAT 94; BMI 23.0
--- NOTE | 2024-03-31 13:20 | XR_ITS ---
[address] [address] Patient Name: FRANCIS GALVEZ MRN: [id number] date: 1990 Sex: M Assigned Patient Location: ER Current Patient Location: ER Accession/Order Number: [id number] Exam Date: 03/31/2024 13:40 Report Date: 03/31/2024 14:04 At the request of: HAYDEE WELLINGTON Procedure: XR hand LT min 3V PROCEDURE: XR hand LT min 3V COMPARISON: 07/17/2023 HISTORY: crush injury left index finger FINDINGS: BONES:No fracture, acute abnormality, or significant arthropathy. SOFT TISSUES:Negative. No visible soft tissue swelling. EFFUSION:None visible. OTHER: Negative. XR/XR hand LT min 3V IMPRESSION: No acute fracture Electronically authenticated by: NEMO QUIÑONES Date: 03/31/2024 14:04
--- NOTE | 2024-03-31 14:11 | ED_ITS ---
HPI HPI - Extremity Injury (Upper) General Chief Complaint: Extremity Injury, Upper Stated Complaint: UPPER LEFT EXTREMITY INJURY Time Seen by Provider: 03/31/24 14:11 Source: patient Limitations: no limitations History of Present Illness HPI narrative: Is a 33-year-old male who presents to the emergency department for the evaluation of a crush injury to the left index finger that occurred just prior to arrival. 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 Bleeding is well-controlled at this time from superficial abrasions to the medial aspect of the finger. He has an unknown last tetanus. He had no other associated injuries. He is right- hand dominant. Related Data Home Medications ?Medication ?Instructions ?Recorded ?Confirmed trazodone 50 mg tablet 50 mg PO BEDTIME PRN sleep 09/13/23 03/20/24 escitalopram oxalate 10 mg tablet 10 mg PO .qd 01/09/24 03/20/24 hydroxyzine pamoate 25 mg capsule 25 mg PO BID PRN anxiety 03/05/24 03/20/24 pantoprazole 40 mg tablet,delayed 40 mg PO Q12H 03/05/24 03/20/24 release Previous Rx's ?Medication ?Instructions ?Recorded albuterol sulfate 2.5 mg/3 mL 2.5 mg (3 mL) inhalation Q6H PRN 05/25/23 (0.083 %) solution for nebulization shortness of breath or wheezing #75 mL albuterol sulfate 90 mcg/actuation 1 inh inhalation Q4H PRN shortness 03/22/24 aerosol inhaler of breath or wheezing #8.5 grams azithromycin 250 mg tablet See Rx Instructions PO .COMPLEX #6 03/22/24 (Zithromax) tabs prednisone 20 mg tablet 20 mg PO BID 7 days #14 tabs 03/22/24 cephalexin 500 mg capsule 500 mg PO Q8H 7 days #21 caps 03/31/24 hydrocodone 5 mg-acetaminophen 325 1 tab PO Q6H PRN pain 3 days #12 03/31/24 mg tablet tabs Allergies Allergy/AdvReac Type Severity Reaction Status Date / Time Penicillins Allergy Intermediate Hives Verified 03/31/24 13:15 Opioid HPI Opioid Management Most Recent Pain and Opioid Data: Last Pain Scale 7 03/31/24 14:13 03/31/24 Last ED Pain Assessment 03/31/24 14:13 Last ORT Total Score 1 03/20/24 21:36 03/20/24 Last ORT Risk Category Low Risk 03/20/24 21:36 03/20/24 Review of Systems ROS Constitutional Denies: fever or chills Ears, nose, mouth, and throat Denies: throat pain or nasal discharge Cardiovascular Denies: chest pain Respiratory Denies: shortness of breath Gastrointestinal Denies: nausea or vomiting Musculoskeletal Reports: extremity pain and limited range of motion; Denies: back pain or neck pain Integumentary/Breast Denies: rash Neurological Denies: numbness in extremities or weakness in extremities Hematologic/Lymphatic Denies: easy bruising or easy bleeding [facility] Medical History (Updated 03/31/24 @ 14:18 by JONATHAN Alvarenga) Dyspnea ?R06.00 - Dyspnea, unspecified (ICD-10) Hypoxia ?R09.02 - Hypoxemia (ICD-10) Bronchiectasis with acute exacerbation ?J47.1 - Bronchiectasis with (acute) exacerbation (ICD-10) Depression with anxiety ?F41.8 - Other specified anxiety disorders (ICD-10) Pneumonia ?J18.9 - Pneumonia, unspecified organism (ICD-10) Bronchiectasis with acute lower respiratory infection ?J47.0 - Bronchiectasis with acute lower respiratory infection (ICD-10) Leukocytosis ?D72.829 - Elevated white blood cell count, unspecified (ICD-10) Steroid-induced hyperglycemia ?R73.9 - Hyperglycemia, unspecified (ICD-10) ?T38.0X5A - Adverse effect of glucocorticoids and synthetic analogues, initial encounter (ICD-10) Hyponatremia ?E87.1 - Hypo-osmolality and hyponatremia (ICD-10) Chest wall pain ?R07.89 - Other chest pain (ICD-10) Pneumonia ?J18.9 - Pneumonia, unspecified organism (ICD-10) Malnutrition of moderate degree ?E44.0 - Moderate protein-calorie malnutrition (ICD-10) Depression ?F32.A - Depression, unspecified (ICD-10) Bronchiectasis ?J47.9 - Bronchiectasis, uncomplicated (ICD-10) Chronic respiratory failure with hypoxia ?J96.11 - Chronic respiratory failure with hypoxia (ICD-10) Upper respiratory infection ?J06.9 - Acute upper respiratory infection, unspecified (ICD-10) Acute hypokalemia ?E87.6 - Hypokalemia (ICD-10) Avulsion of skin ?T14.8XXA - Other injury of unspecified body region, initial encounter (ICD- 10) Influenza ?J11.1 - Influenza due to unidentified influenza virus with other respiratory manifestations (ICD-10) Marijuana abuse ?F12.10 - Cannabis abuse, uncomplicated (ICD-10) Acute hypoxic respiratory failure ?J96.01 - Acute respiratory failure with hypoxia (ICD-10) Coronavirus infection ?B34.2 - Coronavirus infection, unspecified (ICD-10) Pneumonia ?J18.9 - Pneumonia, unspecified organism (ICD-10) Hospital-acquired bacterial pneumonia ?J15.9 - Unspecified bacterial pneumonia (ICD-10) COVID-19 ?U07.1 - COVID-19 (ICD-10) GERD (gastroesophageal reflux disease) ?K21.9 - Gastro-esophageal reflux disease without esophagitis (ICD-10) 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34 - 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) History of gastrostomy tube placement 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 (ICD-10) Pneumonia ?J18.9 - Pneumonia, unspecified organism (ICD-10) Abdominal pain ?R10.9 - Unspecified abdominal pain (ICD-10) Abdominal pain, acute ?R10.9 - Unspecified abdominal pain (ICD-10) Surgical History History of fundoplication ?Z98.890 - Other specified postprocedural states (ICD-10) History of appendectomy ?Z90.49 - Acquired absence of other specified parts of digestive tract (ICD- 10) H/O chest tube placement ?Z98.890 - Other specified postprocedural states (ICD-10) History of facial surgery ?Z98.890 - Other specified postprocedural states (ICD-10) Family History Mother Family history of diabetes mellitus Family history of hypertension Grandmother Family history of diabetes mellitus Grandfather Family history of myocardial infarction Social History Within the past year, how often did you have a drink containing alcohol: 2-4 times a month Within the past year, how many standard drinks containing alcohol did you have on a typical day: 1 or 2 Within the past year, how often did you have six or more drinks on one occasion: weekly Total score: 3 Score interpretation: A score of 4 or more indicates drinking is likely to affect patient's safety. 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 Known occupational exposures/hazards: No Highest level of school completed/degree received: some college, no degree Are you now , , , , never or living with a partner: In a typical week, how many times do you talk on the telephone with family, friends, or neighbors: 3 or more times per week How often do you get together with friends or relatives: once per week How often do you attend orthodoxy or mosque services: never Do you belong to any clubs or organizations such as orthodoxy groups unions, fraternal or athletic groups, or school groups: no Total score: 1 Score interpretation: A score of less than or equal to 1 indicates the most socially isolated. Little interest or pleasure in doing things: not at all Feeling down, depressed, or hopeless: not at all Feel stressed/tense/nervous/anxious/difficulty sleeping: not at all Do you think of yourself as: straight/heterosexual Gender Identity: male Exam Narrative Exam Narrative: Gen.: Awake, alert, in no distress Head: Normocephalic, atraumatic ENT: Moist mucous membranes Respiratory: No respiratory distress Extremities: Limited flexion and extension at the DIP and PIP joints of the left index finger. 3 small superficial abrasion/laceration noted of the medial aspect, no deep laceration, no active bleeding. Diffusely tender to palpation. 2+ left radial pulse; no subungual hematoma noted Psych: Normal mood and affect Neuro: No focal neuro deficit Skin: Warm, dry Constitutional Vital Signs, click to edit/add: Last Vital Signs Temp 97.9 F 03/31/24 13:15 Pulse 110 H 03/31/24 13:15 Resp 20 03/31/24 13:15 BP 123/81 03/31/24 13:15 Pulse Ox 94 L 03/31/24 13:15 O2 Del Method Room Air 03/31/24 13:15 Course Vital Signs Vital signs: Vital Signs Temperature 97.9 F 03/31/24 13:15 Pulse Rate 110 H 03/31/24 13:15 Respiratory Rate 20 03/31/24 13:15 Blood Pressure 123/81 03/31/24 13:15 Pulse Oximetry 94 L 03/31/24 13:15 Oxygen Delivery Method Room Air 03/31/24 13:15 Temperature 97.9 F 03/31/24 13:15 Pulse Rate 110 H 03/31/24 13:15 Respiratory Rate 20 03/31/24 13:15 Blood Pressure 123/81 03/31/24 13:15 Pulse Oximetry 94 L 03/31/24 13:15 Oxygen Delivery Method Room Air 03/31/24 13:15 MDM - Extremity Injury (Upper) [facility] Narrative Medical decision making narrative: X-rays were obtained in the lobby, no evidence of fracture or dislocation. No indication for suture repair at this time. Tetanus updated, the area was cleansed with saline, dressed with bacitracin, finger splint and gauze. Patient was given a short course of analgesics and a short course of antibiotics to prevent infection. Follow-up with PCP and return to the ER if symptoms change or worsen. Patient is neurovascularly intact at discharge. SUPERVISED APC VISIT, PHYSICIAN ATTESTATION: Based on the medical record the care appears appropriate. ? Medical Records Attestation: I reviewed the patient's medical records. Imaging Data xr finger: Attestation: I have reviewed the pertinent imaging results. Radiologist's impression: ITS Impressions Hand X-Ray 03/31/24 13:20 IMPRESSION: No acute fracture Electronically authenticated by: NEMO QUIÑONES Date: 03/31/2024 14:04 Discharge Plan Discharge Chief Complaint: Extremity Injury, Upper Clinical Impression: Crushing injury of left index finger, Superficial laceration of finger Patient Disposition: Home, Self-Care Time of Disposition Decision: 14:18 Condition: Good Prescriptions / Home Meds: New hydrocodone-acetaminophen 5-325 mg tablet 1 tab PO Q6H PRN (Reason: pain) 3 Days Qty: 12 0RF Rx Instructions: DX: S67.10XA cephalexin 500 mg capsule 500 mg PO Q8H 7 Days Qty: 21 0RF No Action trazodone 50 mg tablet 50 mg PO BEDTIME PRN (Reason: sleep) escitalopram oxalate 10 mg tablet 10 mg PO .qd Rx Instructions: 1/2 TABLET DAILY FOR FIRST WEEK THEN 1 FULL TABLET THEREAFTER azithromycin [Zithromax] 250 mg tablet See Rx Instructions .ROUTE .COMPLEX Qty: 6 0RF Rx Instructions: For 250 mg dose pack: take 500 mg today (day 1), then 250 mg for 4 days (days 2-5) prednisone 20 mg tablet 20 mg PO BID 7 Days Qty: 14 0RF albuterol sulfate 90 mcg/actuation HFA aerosol inhaler 1 inh inhalation Q4H PRN (Reason: shortness of breath or wheezing) Qty: 8.5 0RF albuterol sulfate 2.5 mg /3 mL (0.083 %) solution for nebulization 2.5 mg inhalation Q6H PRN (Reason: shortness of breath or wheezing) Qty: 75 0RF pantoprazole 40 mg tablet,delayed release (DR/EC) 40 mg PO Q12H Rx Instructions: 30 MINUTES BEFORE MEALS hydroxyzine pamoate 25 mg capsule 25 mg PO BID PRN (Reason: anxiety) Print Language: Turkmen Instructions: Crush Injury (ED) Referrals: REBEKAH BARBOZA [Primary Care Provider] - 1 week
[2024-03-31] MEDS: ADACEL DIPH,PERTUSS(ACELL),TET VAC/PF 0.5 ML ADULT SYRINGE IM (14:40)
[2024-03-31] MEDS: HYDROCODONE/ACET 5-325 MG TABLET 1 TAB PO (14:40)
[2024-03-31] MEDS: BACITRACIN 0.9 GM PACKET 1 PACKET TOPICAL (14:40)
[2024-03-31 14:46] VITALS: PULSE 91; O2SAT 95
== END 2024-03-31 14:47 | disposition home or self-care (01) ==
PROVIDERS: Emergency Provider Student in an Organized Health Care Education/Training Program; PCP Nurse Practitioner Family
DX: S67.191A Crushing injury of left index finger, initial encounter (principal); S61.211A Laceration without foreign body of left index finger without damage to nail, initial encounter; S60.411A Abrasion of left index finger, initial encounter; F17.290 Nicotine dependence, other tobacco product, uncomplicated; Z23 Encounter for immunization; X58.XXXA Exposure to other specified factors, initial encounter
CPT/HCPCS: 29130; 73130; 90471; 90715; 99284

== ENCOUNTER 2024-05-07 08:19 | Emergency (ER) | payer MEDICARE, MEDICAID, SELFPAY ==
[2024-05-07 08:22] VITALS: BP 102/70; PULSE 107; TEMP 36.9; O2SAT 94; BMI 24.2
[2024-05-07 08:35] VITALS: O2SAT 95
[2024-05-07 08:41] VITALS: O2SAT 95
--- NOTE | 2024-05-07 13:08 | ED.GENADUL1 ---
HPI HPI - General Adult General Chief complaint: Upper Respiratory Infection Stated complaint: urti complaints Time Seen by Provider: 05/07/24 08:21 Source: patient Mode of arrival: walk-in Limitations: no limitations History of Present Illness HPI narrative: Patient [facility] complaining of upper respiratory infection symptoms. He said in the house that he is living, there are a lot of sick people with upper respiratory infection symptoms. Given his chronic lung issues this triggers some wheezing for him. He said this morning his pulse ox was reading in the upper 80s so he was concerned and came in. Here in ED his pulse ox is reading at 95%. He is not in any acute respiratory distress. He said maybe his pulse ox was not reading correctly at home. He is also supposed to go to work and does not think that he can at this time given the fact that he has not been feeling well the past couple of days. Alert and oriented in no acute distress. He is not on chronic rides but does take them when he is sick and is requesting steroids today. Patient states he did a breathing treatment prior to arrival. Denies fevers or productive cough Related Data Home Medications ?Medication ?Instructions ?Recorded ?Confirmed trazodone 50 mg tablet 50 mg PO BEDTIME PRN sleep 09/13/23 03/20/24 escitalopram oxalate 10 mg tablet 10 mg PO .qd 01/09/24 03/20/24 hydroxyzine pamoate 25 mg capsule 25 mg PO BID PRN anxiety 03/05/24 03/20/24 pantoprazole 40 mg tablet,delayed 40 mg PO Q12H 03/05/24 03/20/24 release Previous Rx's ?Medication ?Instructions ?Recorded albuterol sulfate 2.5 mg/3 mL 2.5 mg (3 mL) inhalation Q6H PRN 05/25/23 (0.083 %) solution for nebulization shortness of breath or wheezing #75 mL albuterol sulfate 90 mcg/actuation 1 inh inhalation Q4H PRN shortness 03/22/24 aerosol inhaler of breath or wheezing #8.5 grams azithromycin 250 mg tablet See Rx Instructions PO .COMPLEX #6 03/22/24 (Zithromax) tabs prednisone 20 mg tablet 20 mg PO BID 7 days #14 tabs 03/22/24 cephalexin 500 mg capsule 500 mg PO Q8H 7 days #21 caps 03/31/24 hydrocodone 5 mg-acetaminophen 325 1 tab PO Q6H PRN pain 3 days #12 03/31/24 mg tablet tabs hydrocodone 5 mg-acetaminophen 325 1 tab PO Q6H PRN pain 3 days #12 03/31/24 mg tablet tabs methylprednisolone 4 mg tablets in 4 mg PO DAILY #21 ea 05/07/24 a dose pack (Medrol (Daniel)) Allergies Allergy/AdvReac Type Severity Reaction Status Date / Time Penicillins Allergy Intermediate Hives Verified 03/31/24 13:15 Opioid HPI Opioid Management Most Recent Opioid Data: Last Pain Scale 9 03/31/24 14:40 03/31/24 Last ORT Total Score 1 03/20/24 21:36 03/20/24 Last ORT Risk Category Low Risk 03/20/24 21:36 03/20/24 Review of Systems ROS Status of ROS 10 or more systems reviewed and unremarkable except as noted in history and below [facility] Medical History (Updated 05/07/24 @ 08:33 by Aneta Sánchez DO) Dyspnea ?R06.00 - Dyspnea, unspecified (ICD-10) Hypoxia ?R09.02 - Hypoxemia (ICD-10) Bronchiectasis with acute exacerbation ?J47.1 - Bronchiectasis with (acute) exacerbation (ICD-10) Depression with anxiety ?F41.8 - Other specified anxiety disorders (ICD-10) Pneumonia ?J18.9 - Pneumonia, unspecified organism (ICD-10) Bronchiectasis with acute lower respiratory infection ?J47.0 - Bronchiectasis with acute lower respiratory infection (ICD-10) Leukocytosis ?D72.829 - Elevated white blood cell count, unspecified (ICD-10) Steroid-induced hyperglycemia ?R73.9 - Hyperglycemia, unspecified (ICD-10) ?T38.0X5A - Adverse effect of glucocorticoids and synthetic analogues, initial encounter (ICD-10) Hyponatremia ?E87.1 - Hypo-osmolality and hyponatremia (ICD-10) Chest wall pain ?R07.89 - Other chest pain (ICD-10) Pneumonia ?J18.9 - Pneumonia, unspecified organism (ICD-10) Malnutrition of moderate degree ?E44.0 - Moderate protein-calorie malnutrition (ICD-10) Depression ?F32.A - Depression, unspecified (ICD-10) Bronchiectasis ?J47.9 - Bronchiectasis, uncomplicated (ICD-10) Chronic respiratory failure with hypoxia ?J96.11 - Chronic respiratory failure with hypoxia (ICD-10) Upper respiratory infection ?J06.9 - Acute upper respiratory infection, unspecified (ICD-10) Acute hypokalemia ?E87.6 - Hypokalemia (ICD-10) Avulsion of skin ?T14.8XXA - Other injury of unspecified body region, initial encounter (ICD-10) Influenza ?J11.1 - Influenza due to unidentified influenza virus with other respiratory manifestations (ICD-10) Marijuana abuse ?F12.10 - Cannabis abuse, uncomplicated (ICD-10) Acute hypoxic respiratory failure ?J96.01 - Acute respiratory failure with hypoxia (ICD-10) Coronavirus infection ?B34.2 - Coronavirus infection, unspecified (ICD-10) Pneumonia ?J18.9 - Pneumonia, unspecified organism (ICD-10) Hospital-acquired bacterial pneumonia ?J15.9 - Unspecified bacterial pneumonia (ICD-10) COVID-19 ?U07.1 - COVID-19 (ICD-10) GERD (gastroesophageal reflux disease) ?K21.9 - Gastro-esophageal reflux disease without esophagitis (ICD-10) 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34 - 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) History of gastrostomy tube placement 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 (ICD-10) Pneumonia ?J18.9 - Pneumonia, unspecified organism (ICD-10) Abdominal pain ?R10.9 - Unspecified abdominal pain (ICD-10) Abdominal pain, acute ?R10.9 - Unspecified abdominal pain (ICD-10) Surgical History History of fundoplication ?Z98.890 - Other specified postprocedural states (ICD-10) History of appendectomy ?Z90.49 - Acquired absence of other specified parts of digestive tract (ICD-10) H/O chest tube placement ?Z98.890 - Other specified postprocedural states (ICD-10) History of facial surgery ?Z98.890 - Other specified postprocedural states (ICD-10) Family History Mother Family history of diabetes mellitus Family history of hypertension Grandmother Family history of diabetes mellitus Grandfather Family history of myocardial infarction Social History Within the past year, how often did you have a drink containing alcohol: 2-4 times a month Within the past year, how many standard drinks containing alcohol did you have on a typical day: 1 or 2 Within the past year, how often did you have six or more drinks on one occasion: weekly Total score: 3 Score interpretation: A score of 4 or more indicates drinking is likely to affect patient's safety. 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 Known occupational exposures/hazards: No Highest level of school completed/degree received: some college, no degree Are you now , , , , never or living with a partner: In a typical week, how many times do you talk on the telephone with family, friends, or neighbors: 3 or more times per week How often do you get together with friends or relatives: once per week How often do you attend anabaptism or tenriism services: never Do you belong to any clubs or organizations such as anabaptism groups unions, fraternal or athletic groups, or school groups: no Total score: 1 Score interpretation: A score of less than or equal to 1 indicates the most socially isolated. Little interest or pleasure in doing things: not at all Feeling down, depressed, or hopeless: not at all Feel stressed/tense/nervous/anxious/difficulty sleeping: not at all Do you think of yourself as: straight/heterosexual Gender Identity: male Exam Narrative Exam Narrative: General: alert, no acute distress Cardiovascular: regular rate and rhythm, normal peripheral perfusion. Respiratory: Inspiratory expiratory wheezing bilaterally no respiratory distress Extremities: no deformity, no trauma. Neurological: oriented x 4, LOC appropriate for age. Constitutional Vital Signs, click to edit/add: Last Vital Signs Temp 98.4 F 05/07/24 08:22 Pulse 107 H 05/07/24 08:22 Resp 24 H 05/07/24 08:22 BP 102/70 05/07/24 08:22 Pulse Ox 95 05/07/24 08:41 O2 Del Method Room Air 05/07/24 08:41 Course Vital Signs Vital signs: Vital Signs Temperature 98.4 F 05/07/24 08:22 Pulse Rate 107 H 05/07/24 08:22 Respiratory Rate 24 H 05/07/24 08:22 Blood Pressure 102/70 05/07/24 08:22 Pulse Oximetry 94 L 05/07/24 08:22 Oxygen Delivery Method Room Air 05/07/24 08:22 Temperature 98.4 F 05/07/24 08:22 Pulse Rate 107 H 05/07/24 08:22 Respiratory Rate 24 H 05/07/24 08:22 Blood Pressure 102/70 05/07/24 08:22 Pulse Oximetry 95 05/07/24 08:41 Oxygen Delivery Method Room Air 05/07/24 08:41 Medical Decision Making [facility] Narrative Medical decision making narrative: Patient will be sent home with steroid taper. He states he can get read over to the pharmacy and start his steroids. Return to ED if worsening symptoms otherwise follow-up with family doctor. Patient is comfortable care plan for home. Differential Diagnosis Differential Diagnosis: URI, pneumonia, chronic respiratory disease with exacerbation, wheezing Discharge Plan Discharge Chief Complaint: Upper Respiratory Infection Clinical Impression: Upper respiratory infection Patient Disposition: Home, Self-Care Time of Disposition Decision: 08:33 Condition: Fair Mode of Transportation: Private Vehicle Prescriptions / Home Meds: New methylprednisolone [Medrol (Daniel)] 4 mg tablets,dose pack 4 mg PO DAILY Qty: 21 0RF No Action trazodone 50 mg tablet 50 mg PO BEDTIME PRN (Reason: sleep) escitalopram oxalate 10 mg tablet 10 mg PO .qd Rx Instructions: 1/2 TABLET DAILY FOR FIRST WEEK THEN 1 FULL TABLET THEREAFTER azithromycin [Zithromax] 250 mg tablet See Rx Instructions .ROUTE .COMPLEX Qty: 6 0RF Rx Instructions: For 250 mg dose pack: take 500 mg today (day 1), then 250 mg for 4 days (days 2-5) prednisone 20 mg tablet 20 mg PO BID 7 Days Qty: 14 0RF albuterol sulfate 90 mcg/actuation HFA aerosol inhaler 1 inh inhalation Q4H PRN (Reason: shortness of breath or wheezing) Qty: 8.5 0RF hydrocodone-acetaminophen 5-325 mg tablet 1 tab PO Q6H PRN (Reason: pain) 3 Days Qty: 12 0RF Rx Instructions: DX: S67.10XA cephalexin 500 mg capsule 500 mg PO Q8H 7 Days Qty: 21 0RF hydrocodone-acetaminophen 5-325 mg tablet 1 tab PO Q6H PRN (Reason: pain) 3 Days Qty: 12 0RF Rx Instructions: S67.10XA albuterol sulfate 2.5 mg /3 mL (0.083 %) solution for nebulization 2.5 mg inhalation Q6H PRN (Reason: shortness of breath or wheezing) Qty: 75 0RF pantoprazole 40 mg tablet,delayed release (DR/EC) 40 mg PO Q12H Rx Instructions: 30 MINUTES BEFORE MEALS hydroxyzine pamoate 25 mg capsule 25 mg PO BID PRN (Reason: anxiety) Print Language: Dutch Instructions: Viral Syndrome (ED) Referrals: REBEKAH BARBOZA [Primary Care Provider] - 1 week Discharge Date/Time: 05/07/24 08:46
== END 2024-05-07 08:46 | disposition home or self-care (01) ==
PROVIDERS: Emergency Provider Emergency Medicine; PCP Nurse Practitioner Family
DX: J06.9 Acute upper respiratory infection, unspecified (principal); F17.290 Nicotine dependence, other tobacco product, uncomplicated
CPT/HCPCS: 99283

== ENCOUNTER 2024-05-08 07:50 | Inpatient (IN) | payer MEDICARE, MEDICAID, SELFPAY ==
[2024-05-08] VITALS (23 sets, daily range): BP systolic 105–128; BP diastolic 66–78; PULSE 100–120; TEMP 36.7–37; O2SAT 9–98; BMI 23.0; BMI 22.5
--- NOTE | 2024-05-08 07:54 | ECG_ITS ---
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
--- NOTE | 2024-05-08 07:54 | XR_ITS ---
The [address] [address] Patient Name: FRANCIS GALVEZ MRN: [id number] date: 1990 Sex: M Assigned Patient Location: ER Current Patient Location: ED.MAIN Accession/Order Number: [id number] Exam Date: 05/08/2024 08:07 Report Date: 05/08/2024 08:54 At the request of: KYLIE COSTA Procedure: XR chest 1V EXAMINATION: XR chest 1V HISTORY: sob COMPARISON: 03/20/2024 TECHNIQUE: AP portable FINDINGS: LUNGS: Focal consolidation hilar/infrahilar region. The left lung is clear. VASCULATURE: No increased pulmonary vasculature. PLEURA: No pneumothorax. Biapical opacities, pleural parenchymal scarring favored CARDIAC: No cardiomegaly or cardiac silhouette abnormality. MEDIASTINUM: No visible mass or adenopathy. BONES: No fracture or visible bone lesion. OTHER: Negative. XR/XR chest 1V IMPRESSION: Stable right hilar / infrahilar opacity, nonspecific Electronically authenticated by: NEMO QUIÑONES Date: 05/08/2024 08:54
[2024-05-08 08:08] LABS: Basophils Absolute Auto 0.1 10^3/uL (0.0-0.1); Basophils Percent Auto 0.7 % (0.2-2.0); Eosinophils Absolute Auto 0.1 10^3/uL (0.0-0.7); Eosinophils Percent Auto 0.6 % (0.9-7.0); Hematocrit 46.5 % (42.0-54.0); Hemoglobin 15.5 g/dL (14.0-18.0); Immature Granulocytes Abs Auto 0.05 10^3/uL (0.00-0.03); Immature Granulocytes Pct Auto 0.3 % (0.0-0.5); Lymphocytes Absolute Auto 1.5 10^3/uL (1.2-3.8); Lymphocytes Percent Auto 9.2 % (20.5-60.0); Mean Corpuscular HGB Conc 33.3 g/dL (29.9-35.2); Mean Corpuscular Volume 89.9 fL (80.0-94.0); Mean Platelet Volume 11.6 fL (9.5-13.5); Monocytes Absolute Auto 1.1 10^3/uL (0.3-0.8); Neutrophils Absolute Auto 13.4 10^3/uL (1.4-6.5); Neutrophils Percent Auto 82.2 % (43.0-75.0); Platelet Count 289 10^3/uL (150-450); Red Blood Count 5.17 10^6/uL (4.70-6.10); Red Cell Distribution Width 12.5 % (11.0-15.0); White Blood Count 16.3 10^3/uL (4.0-11.0)
[2024-05-08] MEDS: IPRATROPIUM/ALBUTEROL SULFATE 3 ML AMPUL.NEB IH ×4 (08:11→22:15)
[2024-05-08 08:21] LABS: Alanine Aminotransferase 16 U/L (16-63); Albumin Globulin Ratio 1.1; Albumin Level 3.9 g/dL (3.4-5.0); Alkaline Phosphatase 102 U/L (46-116); Anion Gap 16.3; Aspartate Amino Transferase 13 U/L (15-37); Bilirubin Total 0.4 mg/dL (0.2-1.0); Calcium 8.9 mg/dL (8.5-10.1); Carbon Dioxide 29.5 mmol/L (21.0-32.0); Chloride 104 mmol/L (98-107); Estimated GFR (African America >60 (>=60 mL/min/1.73m^2); Estimated GFR (Non-African Ame >60 (>=60 mL/min/1.73m^2); Globulin 3.4 g/dL; Glucose 94 mg/dL (74-106); Potassium 3.8 mmol/L (3.5-5.1); Sodium 146 mmol/L (136-145); Total Protein 7.3 g/dL (6.4-8.2)
[2024-05-08 08:24] LABS: Troponin I High Sensitivity <4.0 pg/mL (4.0-76.1)
[2024-05-08] MEDS: MAGNESIUM SULFATE IN WATER 2 GM/50 ML PREMIX IV (08:25)
[2024-05-08] MEDS: METHYLPREDNISOLONE SOD SUCC PF 125 MG/2 ML VIAL IVP ×3 (08:25→21:37)
--- NOTE | 2024-05-08 08:52 | ED_ITS ---
HPI - SOB/Dyspnea General Chief Complaint: Shortness of Breath/Dyspnea Stated Complaint: TROUBLES BREATHING Time Seen by Provider: 05/08/24 07:52 Source: patient Limitations: no limitations History of Present Illness HPI Narrative: The patient have history of asthma is coming to the ER with shortness of breath with a secondary neuro he was evaluated yesterday treated for possible asthma exacerbation with Medrol Dosepak but he mentioned that he is not getting any better He woke up this morning very short of breath and he denies any other complaint he also is complaining of some chest pain whenever he take a deep breath or cough No nausea no vomiting no other complaints Related Data Home Medications ?Medication ?Instructions ?Recorded ?Confirmed trazodone 50 mg tablet 50 mg PO BEDTIME PRN sleep 09/13/23 03/20/24 escitalopram oxalate 10 mg tablet 10 mg PO .qd 01/09/24 03/20/24 hydroxyzine pamoate 25 mg capsule 25 mg PO BID PRN anxiety 03/05/24 03/20/24 pantoprazole 40 mg tablet,delayed 40 mg PO Q12H 03/05/24 05/08/24 release Previous Rx's ?Medication ?Instructions ?Recorded albuterol sulfate 2.5 mg/3 mL 2.5 mg (3 mL) inhalation Q6H PRN 05/25/23 (0.083 %) solution for nebulization shortness of breath or wheezing #75 mL albuterol sulfate 90 mcg/actuation 1 inh inhalation Q4H PRN shortness 03/22/24 aerosol inhaler of breath or wheezing #8.5 grams azithromycin 250 mg tablet See Rx Instructions PO .COMPLEX #6 03/22/24 (Zithromax) tabs prednisone 20 mg tablet 20 mg PO BID 7 days #14 tabs 03/22/24 cephalexin 500 mg capsule 500 mg PO Q8H 7 days #21 caps 03/31/24 hydrocodone 5 mg-acetaminophen 325 1 tab PO Q6H PRN pain 3 days #12 03/31/24 mg tablet tabs hydrocodone 5 mg-acetaminophen 325 1 tab PO Q6H PRN pain 3 days #12 03/31/24 mg tablet tabs methylprednisolone 4 mg tablets in 4 mg PO DAILY #21 ea 05/07/24 a dose pack (Medrol (Daniel)) Allergies Allergy/AdvReac Type Severity Reaction Status Date / Time Penicillins Allergy Intermediate Hives Verified 05/08/24 07:53 Review of Systems ROS Status of ROS 10 or more systems reviewed and unremark able except as noted in history and below [facility] Medical History (Updated 05/08/24 @ 08:52 by Comfort Stewart MD) Dyspnea ?R06.00 - Dyspnea, unspecified (ICD-10) Hypoxia ?R09.02 - Hypoxemia (ICD-10) Bronchiectasis with acute exacerbation ?J47.1 - Bronchiectasis with (acute) exacerbation (ICD-10) Depression with anxiety ?F41.8 - Other specified anxiety disorders (ICD-10) Pneumonia ?J18.9 - Pneumonia, unspecified organism (ICD-10) Bronchiectasis with acute lower respiratory infection ?J47.0 - Bronchiectasis with acute lower respiratory infection (ICD-10) Leukocytosis ?D72.829 - Elevated white blood cell count, unspecified (ICD-10) Steroid-induced hyperglycemia ?R73.9 - Hyperglycemia, unspecified (ICD-10) ?T38.0X5A - Adverse effect of glucocorticoids and synthetic analogues, initial encounter (ICD-10) Hyponatremia ?E87.1 - Hypo-osmolality and hyponatremia (ICD-10) Chest wall pain ?R07.89 - Other chest pain (ICD-10) Pneumonia ?J18.9 - Pneumonia, unspecified organism (ICD-10) Malnutrition of moderate degree ?E44.0 - Moderate protein-calorie malnutrition (ICD-10) Depression ?F32.A - Depression, unspecified (ICD-10) Bronchiectasis ?J47.9 - Bronchiectasis, uncomplicated (ICD-10) Chronic respiratory failure with hypoxia ?J96.11 - Chronic respiratory failure with hypoxia (ICD-10) Upper respiratory infection ?J06.9 - Acute upper respiratory infection, unspecified (ICD-10) Acute hypokalemia ?E87.6 - Hypokalemia (ICD-10) Avulsion of skin ?T14.8XXA - Other injury of unspecified body region, initial encounter (ICD- 10) Influenza ?J11.1 - Influenza due to unidentified influenza virus with other respiratory manifestations (ICD-10) Marijuana abuse ?F12.10 - Cannabis abuse, uncomplicated (ICD-10) Acute hypoxic respiratory failure ?J96.01 - Acute respiratory failure with hypoxia (ICD-10) Coronavirus infection ?B34.2 - Coronavirus infection, unspecified (ICD-10) Pneumonia ?J18.9 - Pneumonia, unspecified organism (ICD-10) Hospital-acquired bacterial pneumonia ?J15.9 - Unspecified bacterial pneumonia (ICD-10) COVID-19 ?U07.1 - COVID-19 (ICD-10) GERD (gastroesophageal reflux disease) ?K21.9 - Gastro-esophageal reflux disease without esophagitis (ICD-10) 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34 - 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) History of gastrostomy tube placement 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 (ICD-10) Pneumonia ?J18.9 - Pneumonia, unspecified organism (ICD-10) Abdominal pain ?R10.9 - Unspecified abdominal pain (ICD-10) Abdominal pain, acute ?R10.9 - Unspecified abdominal pain (ICD-10) Surgical History History of fundoplication ?Z98.890 - Other specified postprocedural states (ICD-10) History of appendectomy ?Z90.49 - Acquired absence of other specified parts of digestive tract (ICD- 10) H/O chest tube placement ?Z98.890 - Other specified postprocedural states (ICD-10) History of facial surgery ?Z98.890 - Other specified postprocedural states (ICD-10) Family History Mother Family history of diabetes mellitus Family history of hypertension Grandmother Family history of diabetes mellitus Grandfather Family history of myocardial infarction Social History Within the past year, how often did you have a drink containing alcohol: 2-4 times a month Within the past year, how many standard drinks containing alcohol did you have on a typical day: 1 or 2 Within the past year, how often did you have six or more drinks on one occasion: weekly Total score: 3 Score interpretation: A score of 4 or more indicates drinking is likely to affect patient's safety. 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 Known occupational exposures/hazards: No Highest level of school completed/degree received: some college, no degree Are you now , , , , never or living with a partner: In a typical week, how many times do you talk on the telephone with family, friends, or neighbors: 3 or more times per week How often do you get together with friends or relatives: once per week How often do you attend yazidism or yarsanism services: never Do you belong to any clubs or organizations such as yazidism groups unions, fraternal or athletic groups, or school groups: no Total score: 1 Score interpretation: A score of less than or equal to 1 indicates the most socially isolated. Little interest or pleasure in doing things: not at all Feeling down, depressed, or hopeless: not at all Feel stressed/tense/nervous/anxious/difficulty sleeping: not at all Do you think of yourself as: straight/heterosexual Gender Identity: male Exam Narrative Exam Narrative: Nurses notes and vital signs reviewed and patient is not hypoxic. General: The patient is leaning forward showing some mild distress Skin: Warm, dry, no pallor noted. No rash. Head: Normocephalic, atraumatic. Neck: Supple, non-tender. Eye: Pupils are equal, round and EOMI. No scleral icterus. Ears, Nose, Mouth, and Throat: TM are clear, no nasal mucosal hypertrophy. Oral mucosa is moist, no posterior oropharynx erythema, uvula is mid-line Cardiovascular: Regular Rate and Rhythm without murmur, gallop or rub. Respiratory: Bilateral expiratory lung wheezes heard in both lung clifford Back: No midline thoracic or lumbar vertebral tenderness. No CVA tenderness Musculoskeletal: normal ROM, no calf or popliteal tenderness, no lower extremity edema/swelling GI: Abdomen is soft, non-distended. Normal bowel sounds. No masses appreciated. No tenderness to palpation. No rebound, guarding, or rigidity noted. Neurological: A&O x4. No cranial nerve dysfunction observed. Sensation intact. Psychiatric: Cooperative and interactive. Normal mood and affect. Constitutional Vital Signs, click to edit/add: Last Vital Signs Temp 98.6 F 05/08/24 07:51 Pulse 105 H 05/08/24 08:12 Resp 34 H 05/08/24 07:51 BP 115/75 05/08/24 07:51 Pulse Ox 94 L 05/08/24 08:12 O2 Del Method Room Air 05/08/24 08:12 Course Vital Signs Vital signs: Vital Signs Temperature 98.6 F 05/08/24 07:51 Pulse Rate 115 H 05/08/24 07:51 Respiratory Rate 34 H 05/08/24 07:51 Blood Pressure 115/75 05/08/24 07:51 Pulse Oximetry 94 L 05/08/24 07:51 Oxygen Delivery Method Room Air 05/08/24 07:51 Temperature 98.6 F 05/08/24 07:51 Pulse Rate 105 H 05/08/24 08:12 Respiratory Rate 34 H 05/08/24 07:51 Blood Pressure 115/75 05/08/24 07:51 Pulse Oximetry 94 L 05/08/24 08:12 Oxygen Delivery Method Room Air 05/08/24 08:12 MDM - SOB/Dyspnea MDM Narrative Medical decision making narrative: The patient EKG upon presentation showing sinus rhythm with a heart rate of [address] elevation or depression CBC shows leukocytosis chemistry was within normal The patient chest x-ray shows obvious right lower lobe pneumonia the patient was started on levofloxacin after being treated with Solu-Medrol initially and breathing treatment Blood culture obtained The patient will be admitted for management of pneumonia Patient case was discussed with Dr. Elkins and he agreed with above-mentioned plan Lab Data Labs: Lab Results 05/08/24 Range/Units 08:00 WBC 16.3 H (4.0-11.0) 10^3/uL RBC 5.17 (4.70-6.10) 10^6/uL Hgb 15.5 (14.0-18.0) g/dL Hct 46.5 (42.0-54.0) % MCV 89.9 (80.0-94.0) fL MCH 30.0 (25.9-34.0) pg MCHC 33.3 (29.9-35.2) g/dL RDW 12.5 (11.0-15.0) % Plt Count 289 (150-450) 10^3/uL MPV 11.6 (9.5-13.5) fL Neut % (Auto) 82.2 H (43.0-75.0) % Lymph % (Auto) 9.2 L (20.5-60.0) % Arthur % (Auto) 7.0 (1.7-12.0) % Eos % (Auto) 0.6 L (0.9-7.0) % Baso % (Auto) 0.7 (0.2-2.0) % Neut # (Auto) 13.4 H (1.4-6.5) 10^3/uL Lymph # (Auto) 1.5 (1.2-3.8) 10^3/uL Arthur # (Auto) 1.1 H (0.3-0.8) 10^3/uL Eos # (Auto) 0.1 (0.0-0.7) 10^3/uL Baso # (Auto) 0.1 (0.0-0.1) 10^3/uL Abs Immat Gran (auto) 0.05 H (0.00-0.03) 10^3/uL Imm/Tot Granulo (auto) 0.3 (0.0-0.5) % Sodium 146 H (136-145) mmol/L Potassium 3.8 (3.5-5.1) mmol/L Chloride 104 (98-107) mmol/L Carbon Dioxide 29.5 (21.0-32.0) mmol/L Anion Gap 16.3 BUN 13.0 (7.0-18.0) mg/dL Creatinine 1.00 (0.70-1.30) mg/dL Est GFR ( Amer) >60 (>=60 mL/min/1.73m^2) Est GFR (Non-Af Amer) >60 (>=60 mL/min/1.73m^2) BUN/Creatinine Ratio 13.0 Glucose 94 (74-106) mg/dL Calcium 8.9 (8.5-10.1) mg/dL Total Bilirubin 0.4 (0.2-1.0) mg/dL AST 13 L (15-37) U/L ALT 16 (16-63) U/L Alkaline Phosphatase 102 (46-116) U/L Troponin I High Sens <4.0 L (4.0-76.1) pg/mL Total Protein 7.3 (6.4-8.2) g/dL Albumin 3.9 (3.4-5.0) g/dL Globulin 3.4 g/dL Albumin/Globulin Ratio 1.1 Discharge Plan Discharge Chief Complaint: Shortness of Breath/Dyspnea Clinical Impression: Pneumonia, Asthma exacerbation Patient Disposition: Admitted As Inpatient Time of Disposition Decision: 08:52 Condition: Good
[2024-05-08 09:10] LABS: Lactate/Lactic Acid 2.3 mmol/L (0.4-2.0)
[2024-05-08] MEDS: KETOROLAC TROMETHAMINE 30 MG/ML VIAL 15 MG IVP (09:22)
[2024-05-08] MEDS: LEVOFLOXACIN IN DEXTROSE 5 % 750 MG/150 ML PREMIX 100 MG IV (09:22)
--- NOTE | 2024-05-08 09:29 | P.HP_ITS ---
HPI H&P: HPI History of Present Illness Chief complaint: TROUBLES BREATHING Narrative: Patient was seen and evaluated in the emergency room yesterday, given steroids and discharged, Ronny presented with increasing cough and shortness of breath, O2 sat 87% on room air, he does have oxygen at home but only wears it at nighttime, chest x-ray shows reaccumulation of fluid consistent with right lower lobe pneumonia. Has significant leukocytosis today as well, will be admitted for workup and treatment of same When I saw patient in the emergency room, resting comfortably had some mild conversational dyspnea, cough throughout the evaluation large tray of sputum sitting in front of him. Shortness of breath has been progressive over the last several days. Medications given previous day were ineffective. Opioid HPI Opioid Management Most Recent Pain and Opioid Data: Last Pain Scale 6 05/08/24 09:22 05/08/24 Last MAR Pain Assessment 05/08/24 09:22 Last ORT Total Score 1 03/20/24 21:36 03/20/24 Last ORT Risk Category Low Risk 03/20/24 21:36 03/20/24 Review of Systems ROS Status of ROS 10 or more systems reviewed and unremark able except as noted in history and below [facility] Medical History (Updated 05/08/24 @ 08:52 by Comfort Stewart MD) Dyspnea ?R06.00 - Dyspnea, unspecified (ICD-10) Hypoxia ?R09.02 - Hypoxemia (ICD-10) Bronchiectasis with acute exacerbation ?J47.1 - Bronchiectasis with (acute) exacerbation (ICD-10) Depression with anxiety ?F41.8 - Other specified anxiety disorders (ICD-10) Pneumonia ?J18.9 - Pneumonia, unspecified organism (ICD-10) Bronchiectasis with acute lower respiratory infection ?J47.0 - Bronchiectasis with acute lower respiratory infection (ICD-10) Leukocytosis ?D72.829 - Elevated white blood cell count, unspecified (ICD-10) Steroid-induced hyperglycemia ?R73.9 - Hyperglycemia, unspecified (ICD-10) ?T38.0X5A - Adverse effect of glucocorticoids and synthetic analogues, initial encounter (ICD-10) Hyponatremia ?E87.1 - Hypo-osmolality and hyponatremia (ICD-10) Chest wall pain ?R07.89 - Other chest pain (ICD-10) Pneumonia ?J18.9 - Pneumonia, unspecified organism (ICD-10) Malnutrition of moderate degree ?E44.0 - Moderate protein-calorie malnutrition (ICD-10) Depression ?F32.A - Depression, unspecified (ICD-10) Bronchiectasis ?J47.9 - Bronchiectasis, uncomplicated (ICD-10) Chronic respiratory failure with hypoxia ?J96.11 - Chronic respiratory failure with hypoxia (ICD-10) Upper respiratory infection ?J06.9 - Acute upper respiratory infection, unspecified (ICD-10) Acute hypokalemia ?E87.6 - Hypokalemia (ICD-10) Avulsion of skin ?T14.8XXA - Other injury of unspecified body region, initial encounter (ICD- 10) Influenza ?J11.1 - Influenza due to unidentified influenza virus with other respiratory manifestations (ICD-10) Marijuana abuse ?F12.10 - Cannabis abuse, uncomplicated (ICD-10) Acute hypoxic respiratory failure ?J96.01 - Acute respiratory failure with hypoxia (ICD-10) Coronavirus infection ?B34.2 - Coronavirus infection, unspecified (ICD-10) Pneumonia ?J18.9 - Pneumonia, unspecified organism (ICD-10) Hospital-acquired bacterial pneumonia ?J15.9 - Unspecified bacterial pneumonia (ICD-10) COVID-19 ?U07.1 - COVID-19 (ICD-10) GERD (gastroesophageal reflux disease) ?K21.9 - Gastro-esophageal reflux disease without esophagitis (ICD-10) 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34 - 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) History of gastrostomy tube placement 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 (ICD-10) Pneumonia ?J18.9 - Pneumonia, unspecified organism (ICD-10) Abdominal pain ?R10.9 - Unspecified abdominal pain (ICD-10) Abdominal pain, acute ?R10.9 - Unspecified abdominal pain (ICD-10) Surgical History History of fundoplication ?Z98.890 - Other specified postprocedural states (ICD-10) History of appendectomy ?Z90.49 - Acquired absence of other specified parts of digestive tract (ICD- 10) H/O chest tube placement ?Z98.890 - Other specified postprocedural states (ICD-10) History of facial surgery ?Z98.890 - Other specified postprocedural states (ICD-10) Family History Mother Family history of diabetes mellitus Family history of hypertension Grandmother Family history of diabetes mellitus Grandfather Family history of myocardial infarction Social History Within the past year, how often did you have a drink containing alcohol: 2-4 times a month Within the past year, how many standard drinks containing alcohol did you have on a typical day: 1 or 2 Within the past year, how often did you have six or more drinks on one occasion: weekly Total score: 3 Score interpretation: A score of 4 or more indicates drinking is likely to affect patient's safety. 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 Known occupational exposures/hazards: No Highest level of school completed/degree received: some college, no degree Are you now , , , , never or living with a partner: In a typical week, how many times do you talk on the telephone with family, friends, or neighbors: 3 or more times per week How often do you get together with friends or relatives: once per week How often do you attend pentecostal or presybeterian services: never Do you belong to any clubs or organizations such as pentecostal groups unions, fraternal or athletic groups, or school groups: no Total score: 1 Score interpretation: A score of less than or equal to 1 indicates the most socially isolated. Little interest or pleasure in doing things: not at all Feeling down, depressed, or hopeless: not at all Feel stressed/tense/nervous/anxious/difficulty sleeping: not at all Do you think of yourself as: straight/heterosexual Gender Identity: male Meds Home Medications and Allergies Home Medications ?Medication ?Instructions ?Recorded ?Confirmed ?Type albuterol sulfate 2.5 mg/3 mL 2.5 mg (3 mL) inhalation Q6H PRN 05/25/23 05/08/24 Rx (0.083 %) solution for nebulization shortness of breath or wheezing #75 mL trazodone 50 mg tablet 50 mg PO BEDTIME PRN sleep 09/13/23 05/08/24 History escitalopram oxalate 10 mg tablet 10 mg PO .qd 01/09/24 05/08/24 History hydroxyzine pamoate 25 mg capsule 25 mg PO BID PRN anxiety 03/05/24 05/08/24 History albuterol sulfate 90 mcg/actuation 1 inh inhalation Q4H PRN shortness 03/22/24 05/08/24 Rx aerosol inhaler of breath or wheezing #8.5 grams mometasone-formoterol HFA 100 2 puff inhalation BID 05/08/24 05/08/24 History mcg-5 mcg/actuation aerosol inhaler (Dulera) omeprazole 40 mg capsule,delayed 40 mg PO BID 05/08/24 05/08/24 History release sucralfate 1 gram tablet 1 g PO .TIDAC 05/08/24 05/08/24 History Allergies Allergy/AdvReac Type Severity Reaction Status Date / Time Penicillins Allergy Intermediate Hives Verified 05/08/24 07:53 Exam Constitutional Vital Signs, click to edit/add: Last Vital Signs Temp 98.6 F 05/08/24 07:51 Pulse 105 H 05/08/24 08:12 Resp 34 H 05/08/24 07:51 BP 115/75 05/08/24 07:51 Pulse Ox 94 L 05/08/24 08:12 O2 Del Method Room Air 05/08/24 08:12 Documenting provider has reviewed patient's vital signs: yes Common normals: apparent distress (Mild conversational dyspnea with persistent cough throughout the evaluation) Chest Common normals: inspection of chest normal Respiratory Common normals: abnormal respiratory effort (Stational dyspnea with cough throughout the evaluation) and not clear to ascultation bilaterally Auscultation: rhonchi, wheezes and egophony (Right lower lobe) Cardio Common normals: regular rate and regular rhythm Results Labs Labs: Short CBC 05/08/24 Range/Units 08:00 WBC 16.3 H (4.0-11.0) 10^3/uL Hgb 15.5 (14.0-18.0) g/dL Hct 46.5 (42.0-54.0) % Plt Count 289 (150-450) 10^3/uL BMP 05/08/24 08:00 Sodium 146 H Potassium 3.8 Chloride 104 Carbon Dioxide 29.5 BUN 13.0 Creatinine 1.00 Glucose 94 Calcium 8.9 Liver Function 05/08/24 Range/Units 08:00 Total Bilirubin 0.4 (0.2-1.0) mg/dL AST 13 L (15-37) U/L ALT 16 (16-63) U/L Alkaline Phosphatase 102 (46-116) U/L Albumin 3.9 (3.4-5.0) g/dL Assessment and Plan Assessment and Plan (1) Pneumonia: (2) Upper respiratory infection: (3) Dyspnea: Plan Admission findings: Sinus tachycardia, respiratory distress, acute hypoxia secondary to O2 sat of 87% on room air, does have home oxygen but only wears it at nighttime, lactic acidosis, significant leukocytosis with left shift consistent with bacterial process resulting in severe sepsis. Patient admitted for workup and treatment of right lower lobe pneumonia on chest x-ray with failed outpatient treatment of prior day Acute asthma flare secondary to right lower lobe pneumonia resulting in severe sepsis as outlined above (tachycardia, respiratory distress, leukocytosis, lactic acidosis, source of infection right lower lobe pneumonia)-IV antibiotics, steroids, aerosol treatments, vest treatments, try to obtain sputum culture, blood cultures pending Hypernatremia this is likely secondary to fluid shifting, monitor daily Depression-continue with home medications Anxiety-continue with home medications GERD-continue with home medications Insomnia continue with home medications Admission status: Patient seen the previous day and has had progressive increasing shortness of breath, presented with severe sepsis, significant leukocytosis, significant sputum production resulting from right lower lobe pneumonia, based on his story, medically necessary treatment will span 2 midnights. Start patient off as inpatient status
[2024-05-08] MEDS: 0.9 % SODIUM CHLORIDE 1,000 ML 1000 ML IV (09:50)
[2024-05-08 11:09] LABS: Lactate/Lactic Acid 1.1 mmol/L (0.4-2.0)
[2024-05-08] MEDS: ACETAMINOPHEN 500 MG TABLET 1000 MG PO ×2 (16:10→21:37)
--- NOTE | 2024-05-08 16:11 | SWNOTE1 ---
SW met with pt to discuss dc needs. Pt voiced he has Pneumonia on his right side which is his bad lung. Pt voiced he was having trouble breathing and was having anxiety and hyperventilating so they called squad. Pt does wear home oxygen at night only at this time. Pt is independent with all ADL's. At this time pt has no concerns about discharge. SW to follow as needed. Will follow in case pt needs home oxygen continuous.
--- NOTE | 2024-05-08 16:13 | SWNOTE1 ---
Important Message from [employer] reviewed and discussed with patient. Pt. verbalized understanding and signed the form. Original given to patient and copy placed in patient?s chart.
--- NOTE | 2024-05-08 21:06 | PC.NURSE ---
Patient was using chewing tobacco in room. Educated and asked to remove and not use during hospital stay.
[2024-05-09] VITALS (7 sets, daily range): BP systolic 111–121; BP diastolic 63–76; PULSE 94–128; TEMP 36.6–36.7; O2SAT 91–95
[2024-05-09] MEDS: METHYLPREDNISOLONE SOD SUCC PF 125 MG/2 ML VIAL IVP ×2 (02:08→08:39)
[2024-05-09] MEDS: IPRATROPIUM/ALBUTEROL SULFATE 3 ML AMPUL.NEB IH ×4 (05:51→22:44)
[2024-05-09 06:38] LABS: Basophils Percent Auto 0.1 % (0.2-2.0); Hematocrit 42.5 % (42.0-54.0); Hemoglobin 13.9 g/dL (14.0-18.0); Immature Granulocytes Abs Auto 0.06 10^3/uL (0.00-0.03); Immature Granulocytes Pct Auto 0.4 % (0.0-0.5); Lymphocytes Absolute Auto 0.7 10^3/uL (1.2-3.8); Lymphocytes Percent Auto 4.9 % (20.5-60.0); Mean Corpuscular HGB Conc 32.7 g/dL (29.9-35.2); Mean Corpuscular Hemoglobin 29.4 pg (25.9-34.0); Mean Corpuscular Volume 89.9 fL (80.0-94.0); Mean Platelet Volume 11.8 fL (9.5-13.5); Monocytes Absolute Auto 0.2 10^3/uL (0.3-0.8); Monocytes Percent Auto 1.7 % (1.7-12.0); Neutrophils Absolute Auto 12.9 10^3/uL (1.4-6.5); Neutrophils Percent Auto 92.9 % (43.0-75.0); Platelet Count 287 10^3/uL (150-450); Red Blood Count 4.73 10^6/uL (4.70-6.10); Red Cell Distribution Width 12.8 % (11.0-15.0); White Blood Count 13.9 10^3/uL (4.0-11.0)
[2024-05-09 06:50] LABS: Anion Gap 14.5; BUN Creatinine Ratio 15.5; Calcium 8.9 mg/dL (8.5-10.1); Carbon Dioxide 28.7 mmol/L (21.0-32.0); Chloride 106 mmol/L (98-107); Estimated GFR (African America >60 (>=60 mL/min/1.73m^2); Estimated GFR (Non-African Ame >60 (>=60 mL/min/1.73m^2); Glucose 164 mg/dL (74-106); Potassium 4.2 mmol/L (3.5-5.1); Sodium 145 mmol/L (136-145)
--- NOTE | 2024-05-09 08:37 | CM.NOTE ---
Rounds made with Dr. Elkins. Plan of care discussed with Luis. Verbalizes understanding. No discharge today.
[2024-05-09] MEDS: 0.9 % SODIUM CHLORIDE 250 ML 10 ML IV (08:39)
[2024-05-09] MEDS: LEVOFLOXACIN IN DEXTROSE 5 % 750 MG/150 ML PREMIX 100 MG IV (08:39)
--- NOTE | 2024-05-09 09:11 | P.PN_ITS ---
Progress Note: Subjective Subjective Interval history: Patient still with significant dyspnea. May be slightly improved per patient. O2 sat still dropped down at 90 on 2 to 3 L of supplemental oxygen Exam Constitutional Vital Signs, click to edit/add: Last Vital Signs Temp 97.8 F 05/09/24 07:41 Pulse 101 H 05/09/24 07:41 Resp 18 05/09/24 07:41 BP 111/66 05/09/24 07:41 Pulse Ox 92 L 05/09/24 07:41 O2 Del Method Nasal Cannula 05/09/24 07:41 O2 Flow Rate 3 05/09/24 07:41 Documenting provider has reviewed patient's vital signs: yes Common normals: apparent distress (Mild conversational dyspnea with persistent cough throughout the evaluation) Chest Common normals: inspection of chest normal Respiratory Common normals: abnormal respiratory effort (Stational dyspnea with cough throughout the evaluation) and not clear to ascultation bilaterally Auscultation: rhonchi (Somewhat better air exchange today), wheezes (Persisting) and egophony (Right lower lobe) Cardio Common normals: regular rate and regular rhythm Progress Note: Objective Labs Labs: Short CBC 05/09/24 Range/Units 06:09 WBC 13.9 H (4.0-11.0) 10^3/uL Hgb 13.9 L (14.0-18.0) g/dL Hct 42.5 (42.0-54.0) % Plt Count 287 (150-450) 10^3/uL BMP 05/09/24 06:09 Sodium 145 Potassium 4.2 Chloride 106 Carbon Dioxide 28.7 BUN 16.0 Creatinine 1.03 Glucose 164 H Calcium 8.9 Progress Note: A&P Assessment and Plan (1) Pneumonia: (2) Upper respiratory infection: (3) Dyspnea: (4) Asthma exacerbation: (5) Anxiety: (6) Esophagitis with gastritis: (7) Chronic hypoxic respiratory failure, on home oxygen therapy: (8) Depression: Qualifiers: Depression Type: major depressive disorder Major depression recurrence: recurrent Active/Remission status: in full remission Qualified Code(s): F33.42 - Major depressive disorder, recurrent, in full remission (9) Bronchiectasis with acute lower respiratory infection: (10) GERD (gastroesophageal reflux disease): Qualifiers: Esophagitis presence: esophagitis presence not specified Qualified Code(s): K21.9 - Gastro-esophageal reflux disease without esophagitis (11) Lactic acidosis: (12) Leukocytosis: Qualifiers: Leukocytosis type: unspecified Qualified Code(s): D72.829 - Elevated white blood cell count, unspecified (13) Right lower lobe pneumonia: (14) Hypernatremia: (15) Insomnia: Plan Admission findings: Sinus tachycardia, respiratory distress, acute hypoxia secondary to O2 sat of 87% on room air, does have home oxygen but only wears it at nighttime, lactic acidosis, significant leukocytosis with left shift consistent with bacterial process resulting in severe sepsis. Patient admitted for workup and treatment of right lower lobe pneumonia on chest x-ray with failed outpatient treatment of prior day Acute asthma flare secondary to right lower lobe pneumonia resulting in severe sepsis as outlined above (tachycardia, respiratory distress, leukocytosis, lactic acidosis, source of infection right lower lobe pneumonia)-IV antibiotics, steroids, aerosol treatments, vest treatments, try to obtain sputum culture, blood cultures pending, continue vest therapy Chronic hypoxic respiratory failure at at bedtime secondary to asthma and bronchiectasis-treatment plan as outlined above Hypernatremia this is likely secondary to fluid shifting, monitor daily Depression-continue with home medications Anxiety-continue with home medications GERD-continue with home medications Insomnia continue with home medications Admission status: Patient seen the previous day and has had progressive increasing shortness of breath, presented with severe sepsis, significant leukocytosis, significant sputum production resulting from right lower lobe pneumonia, based on his story, medically necessary treatment will span 2 midnights. Start patient off as inpatient status
--- NOTE | 2024-05-09 11:31 | SWNOTE1 ---
JAY called [facility] [employer] [employer] to confirm what the oxygen order is for patient. They did get an updated order in August of 2023 and pt is supposed to wear 3 liters of oxygen with exertion. JAY updated pt's nurse.
[2024-05-09 13:49] LABS: Influenza Virus A Antigen Negative; Influenza Virus B Antigen Negative; Internal Control Within Normal Limits; SARS-CoV-2 Ag NEGATIVE (NEGATIVE)
[2024-05-09] MEDS: METHYLPREDNISOLONE SOD SUCC PF 125 MG/2 ML VIAL 60 MG IVP ×2 (14:09→20:18)
[2024-05-10] VITALS (10 sets, daily range): BP systolic 105–139; BP diastolic 55–77; PULSE 89–114; TEMP 36.3–36.8; O2SAT 92–95
[2024-05-10] MEDS: METHYLPREDNISOLONE SOD SUCC PF 125 MG/2 ML VIAL 60 MG IVP ×4 (03:51→20:46)
[2024-05-10] MEDS: IPRATROPIUM/ALBUTEROL SULFATE 3 ML AMPUL.NEB IH ×4 (04:20→22:53)
[2024-05-10 06:36] LABS: Anion Gap 13.5; BUN Creatinine Ratio 15.7; Calcium 8.7 mg/dL (8.5-10.1); Carbon Dioxide 28.5 mmol/L (21.0-32.0); Chloride 106 mmol/L (98-107); Estimated GFR (African America >60 (>=60 mL/min/1.73m^2); Estimated GFR (Non-African Ame >60 (>=60 mL/min/1.73m^2); Glucose 171 mg/dL (74-106); Sodium 144 mmol/L (136-145)
--- NOTE | 2024-05-10 08:09 | PM.PN ---
Progress Note: Subjective Subjective Interval history: Patient still with significant shortness of breath. He notes feeling tight on the left now and right. He denies fevers or chills. Slight sore throat. Exam Narrative Exam Narrative: General: Patient is alert, and oriented to person, place and time with normal affect, proper hygiene, with shortness of breath with coversing Skin: no visible rashes, or ulcers Head: atraumatic, acephalic Eyes: PERRLA, no nystagmus present, conjunctiva clear, no scleral icterus Ears: normal gross auditory acuity Heart: Normal rate and rhythm, no murmurs/rubs/gallops Lungs: audible wheezes bilateral lungs with diminished breath sounds all lung clifford Abdomen: Normal audible bowel sounds, no distension, No palpable masses, no organomegaly, no rebound/guarding/ or rigidity Musculoskeletal: no swelling bilateral lower extremities Neuro: CN II-X grossly intact, normal sensation upper and lower extremities Constitutional Vital Signs, click to edit/add: Last Vital Signs Temp 97.8 F 05/10/24 04:00 Pulse 93 H 05/10/24 04:20 Resp 18 05/10/24 04:20 BP 114/72 05/10/24 04:00 Pulse Ox 93 L 05/10/24 04:20 O2 Del Method Nasal Cannula 05/10/24 04:20 O2 Flow Rate 2 05/10/24 04:20 Progress Note: Objective Labs Labs: [facility] 05/10/24 06:02 Sodium 144 Potassium 4.0 Chloride 106 Carbon Dioxide 28.5 BUN 17.0 Creatinine 1.08 Glucose 171 H Calcium 8.7 Progress Note: A&P Assessment and Plan (1) Pneumonia: Assessment and Plan: chest X-ray today shows opacity in left and right side. Will add pulmicort since he does not have dulera here. continue scheduled duonebs, albuterol PRN, OPEP. Continue with levaquin and IV solumedrol 60mg IV q6. oxygen as needed. OPEP Qualifiers: Pneumonia type: due to unspecified organism Laterality: right Lung location: lower lobe of lung Qualified Code(s): J18.9 - Pneumonia, unspecified organism (2) Acute and chronic respiratory failure with hypoxia: Assessment and Plan: uses oxygen at night time but now requiring 3L continuous. (3) GERD (gastroesophageal reflux disease): Assessment and Plan: continue PPI and Carafate as needed. Qualifiers: Esophagitis presence: esophagitis presence not specified Qualified Code(s): K21.9 - Gastro-esophageal reflux disease without esophagitis (4) Insomnia: Assessment and Plan: continue trazodone. Qualifiers: Insomnia type: primary Qualified Code(s): F51.01 - Primary insomnia Plan Patient is a full code continue ambulation as tolerated Patient is inpatient and will require 2-3 more days of hospital necessary care.
[2024-05-10] MEDS: ACETAMINOPHEN 500 MG TABLET 1000 MG PO (08:56)
[2024-05-10] MEDS: LEVOFLOXACIN IN DEXTROSE 5 % 750 MG/150 ML PREMIX 150 MG IV (08:57)
--- NOTE | 2024-05-10 09:53 | XR_ITS ---
The [place] [id number] Patient Name: FRANCIS GALVEZ MRN: [id number] date: 1990 Sex: M Assigned Patient Location: [place] Current Patient Location: Accession/Order Number: [id number] Exam Date: 05/10/2024 10:25 Report Date: 05/10/2024 11:13 At the request of: NICOLA WYATT Procedure: XR chest 1V FRONTAL CHEST; 05/10/2024 10:25 AM EST Clinical History:shortness of breath Comparison: 05/08/[address] 02/24/2024 . No apparent change osseous structures. No change cardiac and mediastinal silhouettes or giselle. Again, right heart border is partially effaced. Again, slight increased markings at the left base. Right CP angle remains sharp. Left CP angle is again slightly blunted. No interval vascular distention or Dax-B lines. XR/XR chest 1V IMPRESSION: 1. No interval change. 2. In correlation with recent CT cicatrizing atelectasis with underlying bronchiectasis in the right lower lobe and in aspects of the left lower lobe. Electronically authenticated by: FABIENNE ROBERTSON Date: 05/10/2024 11:13
[2024-05-10 10:04] LABS: Magnesium 1.9 mg/dL (1.8-2.4)
[2024-05-10] MEDS: OMEPRAZOLE 40 MG CAPSULE.DR PO (12:31)
[2024-05-10] MEDS: BUDESONIDE 0.5 MG/2 ML AMPULE NEB IH (22:53)
[2024-05-11] VITALS (9 sets, daily range): BP systolic 116–128; BP diastolic 59–76; PULSE 66–104; TEMP 36.4–36.6; O2SAT 88–96
[2024-05-11] MEDS: METHYLPREDNISOLONE SOD SUCC PF 125 MG/2 ML VIAL 60 MG IVP ×4 (04:02→21:10)
[2024-05-11] MEDS: IPRATROPIUM/ALBUTEROL SULFATE 3 ML AMPUL.NEB IH ×4 (04:47→22:48)
[2024-05-11 06:11] LABS: Anion Gap 12.1; BUN Creatinine Ratio 17.2; Calcium 8.2 mg/dL (8.5-10.1); Carbon Dioxide 28.8 mmol/L (21.0-32.0); Chloride 105 mmol/L (98-107); Estimated GFR (African America >60 (>=60 mL/min/1.73m^2); Estimated GFR (Non-African Ame >60 (>=60 mL/min/1.73m^2); Glucose 170 mg/dL (74-106); Potassium 3.9 mmol/L (3.5-5.1); Sodium 142 mmol/L (136-145)
[2024-05-11] MEDS: ACETAMINOPHEN 500 MG TABLET 1000 MG PO (08:08)
[2024-05-11] MEDS: OMEPRAZOLE 40 MG CAPSULE.DR PO (08:08)
[2024-05-11] MEDS: LEVOFLOXACIN 750 MG TABLET PO (08:08)
--- NOTE | 2024-05-11 08:19 | PM.PN ---
Progress Note: Subjective Subjective Interval history: Patient's symptoms much improved today. He notes feeling less tightness. He denies fevers or chills. Slight sore throat and feels anxiety is high from steroids. Still dropping 88% on room air with ambulation. Exam Narrative Exam Narrative: General: Patient is alert, and oriented to person, place and time with normal affect, proper hygiene, with shortness of breath with conversing Skin: no visible rashes, or ulcers Head: atraumatic, acephalic Eyes: PERRLA, no nystagmus present, conjunctiva clear, no scleral icterus Ears: normal gross auditory acuity Heart: Normal rate and rhythm, no murmurs/rubs/gallops Lungs: improved wheezes bilateral lungs with diminished breath sounds at bases Abdomen: Normal audible bowel sounds, no distension, No palpable masses, no organomegaly, no rebound/guarding/ or rigidity Musculoskeletal: no swelling bilateral lower extremities Neuro: CN II-X grossly intact, normal sensation upper and lower extremities Constitutional Vital Signs, click to edit/add: Last Vital Signs Temp 97.8 F 05/11/24 07:59 Pulse 92 H 05/11/24 07:59 Resp 20 05/11/24 07:59 BP 125/67 05/11/24 07:59 Pulse Ox 88 L 05/11/24 07:59 O2 Del Method Room Air 05/11/24 07:59 O2 Flow Rate 3 05/11/24 04:47 Progress Note: Objective Labs Labs: [facility] 05/11/24 05:54 Sodium 142 Potassium 3.9 Chloride 105 Carbon Dioxide 28.8 BUN 16.0 Creatinine 0.93 Glucose 170 H Calcium 8.2 L Progress Note: A&P Assessment and Plan (1) Pneumonia: Assessment and Plan: additon of pulmicort did help. continue scheduled duonebs, albuterol PRN, OPEP. Continue with levaquin and IV solumedrol 60mg IV q6. oxygen as needed. OPEP. Hopeful discharge home tomorrow. Qualifiers: Laterality: right Lung location: lower lobe of lung Pneumonia type: due to unspecified organism Qualified Code(s): J18.9 - Pneumonia, unspecified organism (2) Acute and chronic respiratory failure with hypoxia: Assessment and Plan: uses oxygen at night time but now requiring 3L continuous. (3) GERD (gastroesophageal reflux disease): Assessment and Plan: continue PPI and Carafate as needed Qualifiers: Esophagitis presence: esophagitis presence not specified Qualified Code(s): K21.9 - Gastro-esophageal reflux disease without esophagitis (4) Insomnia: Assessment and Plan: continue trazodone Qualifiers: Insomnia type: primary Qualified Code(s): F51.01 - Primary insomnia (5) Anxiety: Assessment and Plan: will add vistaril today as needed. Plan Patient is a full code continue ambulation as tolerated hopeful discharge home tomorrow.
[2024-05-11] MEDS: BUDESONIDE 0.5 MG/2 ML AMPULE NEB IH ×2 (11:19→22:49)
[2024-05-11] MEDS: BENZOCAINE/MENTHOL 1 LOZENGE BOX PO (11:53)
[2024-05-11] MEDS: TRAZODONE HCL 50 MG TABLET PO (22:43)
[2024-05-12 04:50] VITALS: PULSE 84; O2SAT 96
[2024-05-12] MEDS: IPRATROPIUM/ALBUTEROL SULFATE 3 ML AMPUL.NEB IH ×2 (04:50→09:58)
[2024-05-12] MEDS: METHYLPREDNISOLONE SOD SUCC PF 125 MG/2 ML VIAL 60 MG IVP ×2 (04:54→08:35)
[2024-05-12 04:56] VITALS: BP 113/67; PULSE 81; TEMP 36.8; O2SAT 96
[2024-05-12 07:13] LABS: Anion Gap 15.6; BUN Creatinine Ratio 12.8; Carbon Dioxide 26.2 mmol/L (21.0-32.0); Chloride 106 mmol/L (98-107); Estimated GFR (African America >60 (>=60 mL/min/1.73m^2); Estimated GFR (Non-African Ame >60 (>=60 mL/min/1.73m^2); Glucose 251 mg/dL (74-106); Potassium 3.8 mmol/L (3.5-5.1); Sodium 144 mmol/L (136-145)
[2024-05-12 08:00] VITALS: BP 121/66; PULSE 102; TEMP 36.9; O2SAT 92
--- NOTE | 2024-05-12 08:12 | P.DS_ITS ---
DS: Providers Provider Date of admission: 05/08/24 10:18 Primary care physician: REBEKAH BARBOZA Consults: 05/08/24 09:29 Consult to Pharmacy Routine Consulting Provider: Reason for consultation: Please [place] me when Med Rec is Updated Has provider been notified: No DS: Diagnosis Discharge Diagnosis (1) Pneumonia: Qualifiers: Laterality: right Lung location: lower lobe of lung Pneumonia type: due to unspecified organism Qualified Code(s): J18.9 - Pneumonia, unspecified organism (2) Acute and chronic respiratory failure with hypoxia: (3) GERD (gastroesophageal reflux disease): Qualifiers: Esophagitis presence: esophagitis presence not specified Qualified Code(s): K21.9 - Gastro-esophageal reflux disease without esophagitis (4) Insomnia: Qualifiers: Insomnia type: primary Qualified Code(s): F51.01 - Primary insomnia (5) Anxiety: Plan Admission findings: Sinus tachycardia, respiratory distress, acute hypoxia secondary to O2 sat of 87% on room air, does have home oxygen but only wears it at nighttime, lactic acidosis, significant leukocytosis with left shift consistent with bacterial process resulting in severe sepsis. Patient admitted for workup and treatment of right lower lobe pneumonia on chest x-ray with failed outpatient treatment of prior day Acute asthma flare secondary to right lower lobe pneumonia resulting in severe sepsis as outlined above (tachycardia, respiratory distress, leukocytosis, lactic acidosis, source of infection right lower lobe pneumonia)-improving at discharge Chronic hypoxic respiratory failure at at bedtime secondary to asthma and bronchiectasis-improving at discharge Hypernatremia this is likely secondary to fluid shifting,-resolved Depression-continue with home medications Anxiety-continue with home medications GERD-continue with home medications Insomnia continue with home medications Admission status: Patient seen the previous day and has had progressive increasing shortness of breath, presented with severe sepsis, significant leukocytosis, significant sputum production resulting from right lower lobe pneumonia, based on his story, medically necessary treatment will span 2 midnights. Start patient off as inpatient status ? DS: Summary Hospital Course Hospital Course: Patient with a known history of asthma and bronchiectasis presented to the hospital with increasing shortness of breath, found to have acute hypoxia with O2 sat of 87%, he does wear supplemental oxygen but only at bedtime., Placed on supplemental oxygen continuous, steroids, aerosols, antibiotics. He is slow to improve this time slower than average. Still has significant cough and shortness of breath yesterday. His hypoxia did improve overnight though. At this point he feels comfortable with being discharged home. He can wear his oxygen during the daytime if needed. Medications see list. Follow-up with PCP within the next week. Time Spent with Patient Time attestation: Total time spent providing and/or coordinating discharge services: Exam Constitutional Vital Signs, click to edit/add: Last Vital Signs Temp 98.2 F 05/12/24 04:56 Pulse 81 05/12/24 04:56 Resp 19 05/12/24 04:56 BP 113/67 05/12/24 04:56 Pulse Ox 96 05/12/24 04:56 O2 Del Method Nasal Cannula 05/12/24 04:56 O2 Flow Rate 3 05/12/24 04:56 Documenting provider has reviewed patient's vital signs: yes Common normals: no apparent distress Chest Common normals: inspection of chest normal Respiratory Common normals: normal respiratory effort; not clear to ascultation bilaterally Auscultation: rhonchi and wheezes Cardio Common normals: regular rate, regular rhythm and no murmurs DS: Data Data Completed and Pending Labs on day of discharge: Labs from last 24 hours 05/12/24 06:29 Sodium 144 Potassium 3.8 Chloride 106 Carbon Dioxide 26.2 Anion Gap 15.6 BUN 14.0 Creatinine 1.09 Est GFR ( Amer) >60 Est GFR (Non-Af Amer) >60 BUN/Creatinine Ratio 12.8 Glucose 251 H Calcium 8.0 L Preliminary micro results at discharge 05/09/24 11:40 Lower Respiratory Culture - Preliminary Sputum - Expectorated Sputum 05/08/24 08:43 Blood Culture Result 2 - Preliminary Blood - Right Antecubital NO GROWTH AT 36-48 HOURS. FINAL TO FOLLOW. 05/08/24 08:00 Blood Culture Result 1 - Preliminary Blood NO GROWTH AT 36-48 HOURS. FINAL TO FOLLOW. Discharge Plan Discharge Disposition: Home, Self-Care Condition: Good Discharge Medications: New prednisone 10 mg tablet 40 mg PO DAILY Qty: 32 0RF Rx Instructions: 4/day for 3 days, 3/day for 3 days, 2/day for 3 days, 1/day for 3 days, 1/2 /day for 4 days levofloxacin 750 mg tablet 750 mg PO DAILY 10 Days Qty: 10 0RF Continued trazodone 50 mg tablet 50 mg PO BEDTIME PRN (Reason: sleep) albuterol sulfate 90 mcg/actuation HFA aerosol inhaler 1 inh inhalation Q4H PRN (Reason: shortness of breath or wheezing) Qty: 8.5 0RF albuterol sulfate 2.5 mg /3 mL (0.083 %) solution for nebulization 2.5 mg inhalation Q6H PRN (Reason: shortness of breath or wheezing) Qty: 75 0RF Dulera 100-5 mcg/actuation HFA aerosol inhaler 2 puff INHALATION BID sucralfate 1 gram tablet 1 g PO .TIDAC Print Language: Maldivian Forms: Portal Instructions
[2024-05-12] MEDS: OMEPRAZOLE 40 MG CAPSULE.DR PO (08:36)
[2024-05-12] MEDS: ACETAMINOPHEN 500 MG TABLET 1000 MG PO (08:36)
[2024-05-12] MEDS: BENZOCAINE/MENTHOL 1 LOZENGE BOX PO (08:36)
[2024-05-12] MEDS: LEVOFLOXACIN 750 MG TABLET PO (08:36)
--- NOTE | 2024-05-12 09:30 | SWNOTE1 ---
2nd notice of Important Message from Medicare reviewed with pt, no questions at this time.
[2024-05-12] MEDS: BUDESONIDE 0.5 MG/2 ML AMPULE NEB IH (09:58)
[2024-05-12 10:04] VITALS: O2SAT 93
--- NOTE | 2024-05-13 14:35 | CM.DCFOLLOWU ---
Readmitted to hospital 05/13/24
== END 2024-05-12 10:30 | disposition home or self-care (01) | DRG 871 ==
LOC: ER 08:52 → MS 10:23
PROVIDERS: Admitting Provider Family Medicine; Emergency Provider Emergency Medicine; PCP Nurse Practitioner Family; Visit Provider Family Medicine
DX: A41.9 Sepsis, unspecified organism (principal); J18.9 Pneumonia, unspecified organism; J96.21 Acute and chronic respiratory failure with hypoxia; E87.0 Hyperosmolality and hypernatremia; J45.901 Unspecified asthma with (acute) exacerbation; E87.20 Acidosis, unspecified; J47.0 Bronchiectasis with acute lower respiratory infection; R65.20 Severe sepsis without septic shock; E87.6 Hypokalemia; F17.290 Nicotine dependence, other tobacco product, uncomplicated; F32.A Depression, unspecified; F41.9 Anxiety disorder, unspecified; G47.00 Insomnia, unspecified; K21.9 Gastro-esophageal reflux disease without esophagitis; Z79.899 Other long term (current) drug therapy; Z88.0 Allergy status to penicillin
CPT/HCPCS: 36415; 71045; 80048; 80053; 83605; 83735; 84484; 85025; 87040; 87070; 87205; 87804; 87811; 93005; 94640; 94667; 94668; 94761; 96365; 96366; 96368; 96375; 99283; 99285; 99406; J1885; J2919; J3475

== ENCOUNTER 2024-05-13 07:03 | Observation (INO) | payer MEDICARE, MEDICAID, SELFPAY ==
[2024-05-13] VITALS (16 sets, daily range): BP systolic 110–133; BP diastolic 64–82; PULSE 73–118; TEMP 36.4–36.8; O2SAT 89–98; BMI 22.3; BMI 23.4
--- NOTE | 2024-05-13 07:16 | XR_ITS ---
The [address] [address] Patient Name: FRANCIS GALVEZ MRN: [id number] date: 1990 Sex: M Assigned Patient Location: ER Current Patient Location: ER Accession/Order Number: [id number] Exam Date: 05/13/2024 07:30 Report Date: 05/13/2024 07:56 At the request of: MARK NIETO Procedure: XR chest 1V EXAM: XR chest 1V HISTORY: SOB COMPARISON: Chest radiographs dated 05/10/2024, 05/08/2024 and 03/05/2024. TECHNIQUE: AP erect portable chest radiograph performed. FINDINGS: The heart size is within normal limits and stable. Stable density at the right hilar/infrahilar regions and left lung base. Stable mild blunting of the bilateral lateral costophrenic angles consistent with a small amount of pleural fluid. There is no pulmonary vascular congestion. There is no pneumothorax or acute osseous abnormality. XR/XR chest 1V IMPRESSION: There is no acute cardiopulmonary process. Stable density at the right hilar/infrahilar regions and left lung base. Stable mild blunting of the bilateral lateral costophrenic angles consistent with a small amount of pleural fluid. Electronically authenticated by: JILLIAN MORALES Date: 05/13/2024 07:56
--- NOTE | 2024-05-13 07:16 | ECG_ITS ---
The 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: : 1990 Requested By: REBEKAH BARBOZA Order Number: [id number] Reading MD: CAROL ANN WOODALL Measurements Intervals [place] Rate: 75 P: 30 [place]: 122 QRS: 102 QRSD: 88 T: 72 QT: 350 QTc: 379 Interpretive Statements 1100 Sinus rhythm 1470 with occasional supraventricular premature complexes 2420 RSR (QR) in lead V1/V2, consistent with right ventricular conduction delay 7100 Abnormal right axis deviation 9140 abnormal rhythm ECG Compared to ECG 05/08/2024 07:52:54 Right-axis deviation now present Short [place] interval no longer present Electronically Signed On 05-13-2024 19:31:11 EST by CAROL ANN WOODALL
--- NOTE | 2024-05-13 07:17 | ED.GENADUL1 ---
HPI HPI - General Adult General Chief complaint: Shortness of Breath/Dyspnea Stated complaint: shortness of breath Time Seen by Provider: 05/13/24 07:07 Source: patient and friend Mode of arrival: Wheelchair Limitations: no limitations History of Present Illness HPI narrative: 33-year-old male presents to the emergency department for difficulty breathing. He has a history of bronchiectasis and had been admitted to this hospital and discharged yesterday after an approximately 4-day stay for pneumonia. He continues to be short of breath particularly with exertion and states his O2 sat is going down to 85 when he walks any more than a few steps. He is on antibiotics. Related Data Home Medications ?Medication ?Instructions ?Recorded ?Confirmed trazodone 50 mg tablet 50 mg PO BEDTIME PRN sleep 09/13/23 05/13/24 mometasone-formoterol HFA 100 2 puff inhalation BID 05/08/24 05/13/24 mcg-5 mcg/actuation aerosol inhaler (Dulera) sucralfate 1 gram tablet 1 g PO .TIDAC 05/08/24 05/13/24 Previous Rx's ?Medication ?Instructions ?Recorded albuterol sulfate 2.5 mg/3 mL 2.5 mg (3 mL) inhalation Q6H PRN 05/25/23 (0.083 %) solution for nebulization shortness of breath or wheezing #75 mL albuterol sulfate 90 mcg/actuation 1 inh inhalation Q4H PRN shortness 03/22/24 aerosol inhaler of breath or wheezing #8.5 grams levofloxacin 750 mg tablet 750 mg PO DAILY 10 days #10 tabs 05/12/24 prednisone 10 mg tablet 40 mg (4 x 10 mg) PO DAILY #32 tabs 05/12/24 Allergies Allergy/AdvReac Type Severity Reaction Status Date / Time Penicillins Allergy Intermediate Hives Verified 05/08/24 07:53 Opioid HPI Opioid Management Most Recent Opioid Data: Last Pain Scale 0 05/12/24 10:00 05/12/24 Last Pain Assessment 05/12/24 10:00 Last ORT Total Score 14 05/08/24 10:26 05/08/24 Last ORT Risk Category High Risk 05/08/24 10:26 05/08/24 Review of Systems ROS Narrative A ten point review of systems is negative except as noted above. PFSH PFSH Medical History (Updated 05/13/24 @ 08:27 by Bib Chang MD) Dyspnea ?R06.00 - Dyspnea, unspecified (ICD-10) Hypoxia ?R09.02 - Hypoxemia (ICD-10) Bronchiectasis with acute exacerbation ?J47.1 - Bronchiectasis with (acute) exacerbation (ICD-10) Depression with anxiety ?F41.8 - Other specified anxiety disorders (ICD-10) Pneumonia ?J18.9 - Pneumonia, unspecified organism (ICD-10) Bronchiectasis with acute lower respiratory infection ?J47.0 - Bronchiectasis with acute lower respiratory infection (ICD-10) Steroid-induced hyperglycemia ?R73.9 - Hyperglycemia, unspecified (ICD-10) ?T38.0X5A - Adverse effect of glucocorticoids and synthetic analogues, initial encounter (ICD-10) Hyponatremia ?E87.1 - Hypo-osmolality and hyponatremia (ICD-10) Chest wall pain ?R07.89 - Other chest pain (ICD-10) Pneumonia ?J18.9 - Pneumonia, unspecified organism (ICD-10) Malnutrition of moderate degree ?E44.0 - Moderate protein-calorie malnutrition (ICD-10) Depression ?F32.A - Depression, unspecified (ICD-10) Bronchiectasis ?J47.9 - Bronchiectasis, uncomplicated (ICD-10) Chronic respiratory failure with hypoxia ?J96.11 - Chronic respiratory failure with hypoxia (ICD-10) Upper respiratory infection ?J06.9 - Acute upper respiratory infection, unspecified (ICD-10) Acute hypokalemia ?E87.6 - Hypokalemia (ICD-10) Avulsion of skin ?T14.8XXA - Other injury of unspecified body region, initial encounter (ICD-10) Influenza ?J11.1 - Influenza due to unidentified influenza virus with other respiratory manifestations (ICD-10) Marijuana abuse ?F12.10 - Cannabis abuse, uncomplicated (ICD-10) Acute hypoxic respiratory failure ?J96.01 - Acute respiratory failure with hypoxia (ICD-10) Coronavirus infection ?B34.2 - Coronavirus infection, unspecified (ICD-10) Pneumonia ?J18.9 - Pneumonia, unspecified organism (ICD-10) Hospital-acquired bacterial pneumonia ?J15.9 - Unspecified bacterial pneumonia (ICD-10) COVID-19 ?U07.1 - COVID-19 (ICD-10) GERD (gastroesophageal reflux disease) ?K21.9 - Gastro-esophageal reflux disease without esophagitis (ICD-10) 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34 - 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) History of gastrostomy tube placement 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 (ICD-10) Pneumonia ?J18.9 - Pneumonia, unspecified organism (ICD-10) Abdominal pain ?R10.9 - Unspecified abdominal pain (ICD-10) Abdominal pain, acute ?R10.9 - Unspecified abdominal pain (ICD-10) Surgical History History of fundoplication ?Z98.890 - Other specified postprocedural states (ICD-10) History of appendectomy ?Z90.49 - Acquired absence of other specified parts of digestive tract (ICD-10) H/O chest tube placement ?Z98.890 - Other specified postprocedural states (ICD-10) History of facial surgery ?Z98.890 - Other specified postprocedural states (ICD-10) Family History Mother Family history of diabetes mellitus Family history of hypertension Grandmother Family history of diabetes mellitus Grandfather Family history of myocardial infarction Social History Within the past year, how often did you have a drink containing alcohol: 2-4 times a month Within the past year, how many standard drinks containing alcohol did you have on a typical day: 1 or 2 Within the past year, how often did you have six or more drinks on one occasion: weekly Total score: 3 Score interpretation: A score of 4 or more indicates drinking is likely to affect patient's safety. 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 Known occupational exposures/hazards: No Highest level of school completed/degree received: Associate degree: occupational, technical, vocational program Are you now , , , , never or living with a partner: In a typical week, how many times do you talk on the telephone with family, friends, or neighbors: 3 or more times per week How often do you get together with friends or relatives: once per week How often do you attend latter-day or pentecostalism services: never Do you belong to any clubs or organizations such as latter-day groups unions, fraternal or athletic groups, or school groups: no Total score: 1 Score interpretation: A score of less than or equal to 1 indicates the most socially isolated. Little interest or pleasure in doing things: not at all Feeling down, depressed, or hopeless: not at all Feel stressed/tense/nervous/anxious/difficulty sleeping: not at all Do you think of yourself as: straight/heterosexual Gender Identity: male Exam Narrative Exam Narrative: Nurses note and vital signs reviewed and patient is not hypoxic. General: The patient appears dyspneic but in no acute respiratory distress Skin: Warm, dry, no pallor noted. There is no rash noted. Head: Normocephalic, atraumatic Eye: Normal conjunctiva, no drainage Ears, Nose, Mouth, and Throat: oral mucosa is moist. Nares patent. Cardiovascular: Regular Rate and Rhythm Respiratory: Bilateral rhonchi throughout Back: non-tender GI: Soft and nontender Musculoskeletal: The patient has no evidence of calf tenderness, no pitting edema, symmetrical pulses noted bilaterally Neurological: A&O, normal speech Psychiatric: Cooperative Constitutional Vital Signs, click to edit/add: Last Vital Signs Temp 98 F 05/13/24 07:07 Pulse 73 05/13/24 07:50 Resp 21 H 05/13/24 07:50 BP 127/80 05/13/24 07:49 Pulse Ox 98 05/13/24 07:50 O2 Del Method Room Air 05/13/24 07:31 Course Vital Signs Vital signs: Vital Signs Temperature 98 F 05/13/24 07:07 Pulse Rate 96 H 05/13/24 07:07 Respiratory Rate 28 H 05/13/24 07:07 Blood Pressure 121/82 05/13/24 07:07 Pulse Oximetry 93 L 05/13/24 07:07 Oxygen Delivery Method Room Air 05/13/24 07:07 Temperature 98 F 05/13/24 07:07 Pulse Rate 73 05/13/24 07:50 Respiratory Rate 21 H 05/13/24 07:50 Blood Pressure 127/80 05/13/24 07:49 Pulse Oximetry 98 05/13/24 07:50 Oxygen Delivery Method Room Air 05/13/24 07:31 Medical Decision Making MDM Narrative Medical decision making narrative: The patient presented with significant wheezing and was given IV steroid and aerosol treatment. He will be readmitted to the hospital. Case discussed with Dr. Elkins. Differential Diagnosis Differential Diagnosis: Pneumonia, COPD exacerbation Lab Data Lab results reviewed: Yes I reviewed the patient's lab results Labs: Lab Results 05/13/24 Range/Units 07:15 WBC 13.0 H (4.0-11.0) 10^3/uL RBC 5.05 (4.70-6.10) 10^6/uL Hgb 14.8 (14.0-18.0) g/dL Hct 45.2 (42.0-54.0) % MCV 89.5 (80.0-94.0) fL MCH 29.3 (25.9-34.0) pg MCHC 32.7 (29.9-35.2) g/dL RDW 12.7 (11.0-15.0) % Plt Count 322 (150-450) 10^3/uL MPV 11.3 (9.5-13.5) fL Seg Neuts % (Manual) 71.0 (43.0-75.0) Lymphocytes % (Manual) 18.0 L (20.5-60.0) % Monocytes % (Manual) 9.0 (1.7-12.0) % Eosinophils % (Manual) 0.0 L (0.9-7.0) % Basophils % (Manual) 0.0 L (0.2-2.0) % Metamyelocytes % 2.0 Neutrophils # (Manual) 9.23 H (1.4-6.5) 10^3/uL Lymphocytes # (Manual) 2.34 (1.20-3.80) 10^3/uL Monocytes # (Manual) 1.17 H (0.30-0.80) 10^3/uL Eosinophils # (Manual) 0.00 (0.00-0.70) 10^3/uL Basophils # (Manual) 0.00 (0.00-0.10) 10^3/uL Metamyelocytes # 0.26 Sodium 145 (136-145) mmol/L Potassium 3.4 L (3.5-5.1) mmol/L Chloride 107 (98-107) mmol/L Carbon Dioxide 30.6 (21.0-32.0) mmol/L Anion Gap 10.8 BUN 15.0 (7.0-18.0) mg/dL Creatinine 0.93 (0.70-1.30) mg/dL Est GFR ( Amer) >60 (>=60 mL/min/1.73m^2) Est GFR (Non-Af Amer) >60 (>=60 mL/min/1.73m^2) BUN/Creatinine Ratio 16.1 Glucose 91 (74-106) mg/dL Calcium 8.1 L (8.5-10.1) mg/dL Imaging Data Chest x-ray: Radiologist's impression: ITS Impressions Chest X-Ray 05/13/24 07:16 IMPRESSION: There is no acute cardiopulmonary process. Stable density at the right hilar/infrahilar regions and left lung base. Stable mild blunting of the bilateral lateral costophrenic angles consistent with a small amount of pleural fluid. Electronically authenticated by: JILLIAN MORALES Date: 05/13/2024 07:56 ECG Data Attestation: I personally reviewed and interpreted this ECG as follows: (EKG on my interpretation shows sinus rhythm with a rate of 75) Critical Care Time Critical Care Time Critical Care Time: Yes Total Critical Care Time: 35 Attestation: Due to the high probability of sudden and clinically significant deterioration in the patient's condition he/she required the highest level of my preparedness to intervene urgently I provided critical care time including documentation time, medication orders and management, reevaluation, vital sign assessment, ordering and reviewing of lab tests, ordering and reviewing of x-ray studies, and admission orders. Aggregate critical care time is 35 minutes including only time during which I was engaged in work directly related to his/her care and did not include time spent treating other patients simultaneously. Discharge Plan Discharge Chief Complaint: Shortness of Breath/Dyspnea Clinical Impression: Acute infective exacerbation of chronic obstructive airway disease Patient Disposition: Admitted As Inpatient Time of Disposition Decision: 08:27 Condition: Good
[2024-05-13 07:27] LABS: Hematocrit 45.2 % (42.0-54.0); Hemoglobin 14.8 g/dL (14.0-18.0); Mean Corpuscular HGB Conc 32.7 g/dL (29.9-35.2); Mean Corpuscular Hemoglobin 29.3 pg (25.9-34.0); Mean Corpuscular Volume 89.5 fL (80.0-94.0); Mean Platelet Volume 11.3 fL (9.5-13.5); Platelet Count 322 10^3/uL (150-450); Red Blood Count 5.05 10^6/uL (4.70-6.10); Red Cell Distribution Width 12.7 % (11.0-15.0)
[2024-05-13 07:38] LABS: Anion Gap 10.8; BUN Creatinine Ratio 16.1; Calcium 8.1 mg/dL (8.5-10.1); Carbon Dioxide 30.6 mmol/L (21.0-32.0); Chloride 107 mmol/L (98-107); Estimated GFR (African America >60 (>=60 mL/min/1.73m^2); Estimated GFR (Non-African Ame >60 (>=60 mL/min/1.73m^2); Glucose 91 mg/dL (74-106); Potassium 3.4 mmol/L (3.5-5.1); Sodium 145 mmol/L (136-145)
[2024-05-13] MEDS: ALBUTEROL SULFATE 2.5 MG/3 ML VIAL NEB IH (07:44)
[2024-05-13] MEDS: METHYLPREDNISOLONE SOD SUCC PF 125 MG/2 ML VIAL IVP ×4 (07:44→23:15)
[2024-05-13 07:57] LABS: Lymphocytes Absolute Manual 2.34 10^3/uL (1.20-3.80); Metamyelocytes Absolute Manual 0.26; Monocytes Absolute Manual 1.17 10^3/uL (0.30-0.80); Segmented Neut Absolute Manual 9.23 10^3/uL (1.4-6.5)
[2024-05-13 08:30] LABS: Internal Control Within Normal Limits; SARS-CoV-2 Ag NEGATIVE (NEGATIVE)
[2024-05-13 08:39] LABS: Influenza Virus A Antigen Negative; Influenza Virus B Antigen Negative; Internal Control Within Normal Limits
--- NOTE | 2024-05-13 08:54 | P.HP_ITS ---
HPI H&P: HPI History of Present Illness Chief complaint: shortness of breath Narrative: Patient discharged yesterday from the hospital with a flareup of his asthma, was doing better and ambulating better but at home after being off of IV medications, he started having increasing cough and shortness of breath his O2 sat went down to 85% on his 2 L during the day. Presented to the emergency room, chest x-ray is unchanged, labs still show leukocytosis, with failed outpatient management of his acute asthma, place patient inpatient status Opioid HPI Opioid Management Most Recent Pain and Opioid Data: Last Pain Scale 0 05/12/24 10:00 05/12/24 Last Pain Assessment 05/12/24 10:00 Last ORT Total Score 14 05/08/24 10:26 05/08/24 Last ORT Risk Category High Risk 05/08/24 10:26 05/08/24 Review of Systems ROS Status of ROS 10 or more systems reviewed and unremark able except as noted in history and below [facility] Medical History (Updated 05/13/24 @ 08:27 by Bib Chang MD) Dyspnea ?R06.00 - Dyspnea, unspecified (ICD-10) Hypoxia ?R09.02 - Hypoxemia (ICD-10) Bronchiectasis with acute exacerbation ?J47.1 - Bronchiectasis with (acute) exacerbation (ICD-10) Depression with anxiety ?F41.8 - Other specified anxiety disorders (ICD-10) Pneumonia ?J18.9 - Pneumonia, unspecified organism (ICD-10) Bronchiectasis with acute lower respiratory infection ?J47.0 - Bronchiectasis with acute lower respiratory infection (ICD-10) Steroid-induced hyperglycemia ?R73.9 - Hyperglycemia, unspecified (ICD-10) ?T38.0X5A - Adverse effect of glucocorticoids and synthetic analogues, initial encounter (ICD-10) Hyponatremia ?E87.1 - Hypo-osmolality and hyponatremia (ICD-10) Chest wall pain ?R07.89 - Other chest pain (ICD-10) Pneumonia ?J18.9 - Pneumonia, unspecified organism (ICD-10) Malnutrition of moderate degree ?E44.0 - Moderate protein-calorie malnutrition (ICD-10) Depression ?F32.A - Depression, unspecified (ICD-10) Bronchiectasis ?J47.9 - Bronchiectasis, uncomplicated (ICD-10) Chronic respiratory failure with hypoxia ?J96.11 - Chronic respiratory failure with hypoxia (ICD-10) Upper respiratory infection ?J06.9 - Acute upper respiratory infection, unspecified (ICD-10) Acute hypokalemia ?E87.6 - Hypokalemia (ICD-10) Avulsion of skin ?T14.8XXA - Other injury of unspecified body region, initial encounter (ICD- 10) Influenza ?J11.1 - Influenza due to unidentified influenza virus with other respiratory manifestations (ICD-10) Marijuana abuse ?F12.10 - Cannabis abuse, uncomplicated (ICD-10) Acute hypoxic respiratory failure ?J96.01 - Acute respiratory failure with hypoxia (ICD-10) Coronavirus infection ?B34.2 - Coronavirus infection, unspecified (ICD-10) Pneumonia ?J18.9 - Pneumonia, unspecified organism (ICD-10) Hospital-acquired bacterial pneumonia ?J15.9 - Unspecified bacterial pneumonia (ICD-10) COVID-19 ?U07.1 - COVID-19 (ICD-10) GERD (gastroesophageal reflux disease) ?K21.9 - Gastro-esophageal reflux disease without esophagitis (ICD-10) 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34 - 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) History of gastrostomy tube placement 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 (ICD-10) Pneumonia ?J18.9 - Pneumonia, unspecified organism (ICD-10) Abdominal pain ?R10.9 - Unspecified abdominal pain (ICD-10) Abdominal pain, acute ?R10.9 - Unspecified abdominal pain (ICD-10) Surgical History History of fundoplication ?Z98.890 - Other specified postprocedural states (ICD-10) History of appendectomy ?Z90.49 - Acquired absence of other specified parts of digestive tract (ICD- 10) H/O chest tube placement ?Z98.890 - Other specified postprocedural states (ICD-10) History of facial surgery ?Z98.890 - Other specified postprocedural states (ICD-10) Family History Mother Family history of diabetes mellitus Family history of hypertension Grandmother Family history of diabetes mellitus Grandfather Family history of myocardial infarction Social History Within the past year, how often did you have a drink containing alcohol: 2-4 times a month Within the past year, how many standard drinks containing alcohol did you have on a typical day: 1 or 2 Within the past year, how often did you have six or more drinks on one occasion: weekly Total score: 3 Score interpretation: A score of 4 or more indicates drinking is likely to affect patient's safety. 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 Known occupational exposures/hazards: No Highest level of school completed/degree received: Associate degree: occupational, technical, vocational program Are you now , , , , never or living with a partner: In a typical week, how many times do you talk on the telephone with family, friends, or neighbors: 3 or more times per week How often do you get together with friends or relatives: once per week How often do you attend druze or sabianist services: never Do you belong to any clubs or organizations such as druze groups unions, fraternal or athletic groups, or school groups: no Total score: 1 Score interpretation: A score of less than or equal to 1 indicates the most socially isolated. Little interest or pleasure in doing things: not at all Feeling down, depressed, or hopeless: not at all Feel stressed/tense/nervous/anxious/difficulty sleeping: not at all Do you think of yourself as: straight/heterosexual Gender Identity: male Meds Home Medications and Allergies Home Medications ?Medication ?Instructions ?Recorded ?Confirmed ?Type albuterol sulfate 2.5 mg/3 mL 2.5 mg (3 mL) inhalation Q6H PRN 05/25/23 05/13/24 Rx (0.083 %) solution for nebulization shortness of breath or wheezing #75 mL trazodone 50 mg tablet 50 mg PO BEDTIME PRN sleep 09/13/23 05/13/24 History albuterol sulfate 90 mcg/actuation 1 inh inhalation Q4H PRN shortness 03/22/24 05/13/24 Rx aerosol inhaler of breath or wheezing #8.5 grams mometasone-formoterol HFA 100 2 puff inhalation BID 05/08/24 05/13/24 History mcg-5 mcg/actuation aerosol inhaler (Dulera) sucralfate 1 gram tablet 1 g PO .TIDAC 05/08/24 05/13/24 History levofloxacin 750 mg tablet 750 mg PO DAILY 10 days #10 tabs 05/12/24 05/13/24 Rx prednisone 10 mg tablet 40 mg (4 x 10 mg) PO DAILY #32 tabs 05/12/24 05/13/24 Rx Allergies Allergy/AdvReac Type Severity Reaction Status Date / Time Penicillins Allergy Intermediate Hives Verified 05/08/24 07:53 Exam Constitutional Vital Signs, click to edit/add: Last Vital Signs Temp 98 F 05/13/24 07:07 Pulse 73 05/13/24 07:50 Resp 21 H 05/13/24 07:50 BP 127/80 05/13/24 07:49 Pulse Ox 89 L 05/13/24 08:47 O2 Del Method Room Air 05/13/24 07:31 Documenting provider has reviewed patient's vital signs: yes Common normals: apparent distress (Mild conversational dyspnea) Chest Common normals: inspection of chest normal Respiratory Common normals: abnormal respiratory effort (Mild conversational dyspnea with cough throughout the evaluation) Auscultation: rhonchi and wheezes Cardio Common normals: regular rhythm; irregular rate (Tachycardic) GI Common normals: Normal to inspection, nondistended, normoactive bowel sounds present Neuro Common normals: CN's II-XII intact bilaterally and moves all extremities Results Labs Labs: Short CBC 05/13/24 Range/Units 07:15 WBC 13.0 H (4.0-11.0) 10^3/uL Hgb 14.8 (14.0-18.0) g/dL Hct 45.2 (42.0-54.0) % Plt Count 322 (150-450) 10^3/uL BMP 05/13/24 07:15 Sodium 145 Potassium 3.4 L Chloride 107 Carbon Dioxide 30.6 BUN 15.0 Creatinine 0.93 Glucose 91 Calcium 8.1 L Assessment and Plan Assessment and Plan (1) Hypernatremia: (2) Right lower lobe pneumonia: (3) Bronchiectasis: Qualifiers: Bronchiectasis type: uncomplicated Qualified Code(s): J47.9 - Bronchiectasis, uncomplicated (4) Chronic respiratory failure with hypoxia: (5) Acute hypoxic respiratory failure: (6) Acute asthma exacerbation: Plan Patient findings: Respiratory distress, tachycardia, leukocytosis, acute hypoxia with O2 sat on 2 L of going 92%, his baseline is 96 to 98% off of supplemental oxygen during the day, he has chronic hypoxic respiratory failure but only wears the oxygen at bedtime secondary to bronchiectasis Leukocytosis with acute hypoxia with acute exacerbation of asthma-consult pulmonology, steroids, aerosols, antibiotics, vest therapy, start patient on theophylline. Plan to change based on evaluation by pulmonology. Antibiotic therapy to cover Pseudomonas and MRSA and anaerobes. Patient with recent hospitalizations concern for nosocomial infection Chronic hypoxic respiratory failure secondary to bronchiectasis-deteriorated as outlined above-wear supplemental oxygen only at at bedtime Hypokalemia-monitor and may need supplementation GERD-continue with home medications Insomnia-continue with home medications Depression with anxiety-continue with home medications Admission status: Patient with failed outpatient management of his asthma, with recent discharge after 3 to 4-day hospitalization. Concern for nosocomial infection as a possible etiology for his acute flareup, medically necessary treatment will span 2 midnights. Inpatient status.
--- NOTE | 2024-05-13 09:18 | CT_ITS ---
[address] [address] Patient Name: FRANCIS GALVEZ MRN: [id number] date: 1990 Sex: M Assigned Patient Location: ER Current Patient Location: [place] Accession/Order Number: [id number] Exam Date: 05/13/2024 09:30 Report Date: 05/13/2024 10:07 At the request of: MARYANNE MCCAIN Procedure: CT angio chest EXAMINATION: CT angio chest HISTORY: acute hypoxia COMPARISON: 01/10/2024 TECHNIQUE: Multi-planar CT images were created with IV contrast. Axial, Coronal, and Sagittal images. Dose reduction techniques were achieved by using automated exposure control and/or adjustment of mA and/or kV according to patient size and/or use of iterative reconstruction technique. FINDINGS: LUNGS: Stable lobular 1.5 cm noncalcified solid nodule in the left lower lobe axial image #90. By basilar moderate bronchiectasis. Moderate to severe diffuse centrilobular emphysema. Stable scattered groundglass and patchy parenchymal infiltrates.. No new parenchymal opacities PLEURA: No mass, effusion, or pneumothorax. VASCULATURE: No filling defect within the central pulmonary arterial tree WING: No mass or adenopathy. MEDIASTINUM: No mass or adenopathy. CARDIAC: No enlargement or pericardial effusion Coronary arteries: Absent calcifications AORTA: No aneurysm or dissection. CHEST WALL: No mass or axillary adenopathy. BONES: No bone lesion or fracture. LIMITED ABDOMEN: Dilated esophagus. Thickening of the distal esophagus measuring up to 1.1 cm OTHER: Negative. CT/CT angio chest IMPRESSION: No central pulmonary thromboembolic disease Stable severe emphysema with bronchiectasis, scattered parenchymal opacities and stable indeterminate 1.5 cm left basilar nodule Thickening of the distal esophagus measuring up to 1.1 cm Electronically authenticated by: NEMO QUIÑONES Date: 05/13/2024 10:07
--- NOTE | 2024-05-13 10:35 | SWNOTE1 ---
JAY called [email or web address] again and was told the last time pt had a change in his script for oxygen was August of 2023. The prescription is for 3 liters of oxygen with exertion and nocturnal. JAY updated nurse.
[2024-05-13] MEDS: BUDESONIDE 0.5 MG/2 ML AMPULE NEB IH ×2 (11:06→22:34)
[2024-05-13] MEDS: IPRATROPIUM/ALBUTEROL SULFATE 3 ML AMPUL.NEB IH ×3 (11:06→22:34)
[2024-05-13] MEDS: THEOPHYLLINE 300 MG TAB.ER.12H PO ×2 (12:49→21:40)
[2024-05-13] MEDS: SUCRALFATE 1 GM TABLET PO ×2 (12:49→16:45)
[2024-05-13] MEDS: CEFTAZIDIME 1,000 MG in 0.9 % SODIUM CHLORIDE 50 ML 100 MG IV ×2 (12:49→19:48)
[2024-05-13] MEDS: 0.9 % SODIUM CHLORIDE 250 ML 10 ML IV (12:50)
[2024-05-13] MEDS: VANCOMYCIN HCL 750 MG in 0.9 % SODIUM CHLORIDE 250 ML 250 MG IV ×2 (14:51→21:40)
--- NOTE | 2024-05-13 15:24 | SWNOTE1 ---
Important Message from [employer] reviewed and discussed with patient. Pt. verbalized understanding and signed the form. Original given to patient and copy placed in patient?s chart.
--- NOTE | 2024-05-13 15:25 | SWNOTE1 ---
SW stopped in and spoke with pt. Pt spoke about several things during visit with SW. Pt spoke about his sobriety and that last night he should have stayed home and relaxed, but she went with a friend while she delivered for [employer]. He voiced he was having a rough night and thought about drinking again, but he did not. He called his sponsor and his sponsor talked him out of it. Pt did talk about his son as well, who is 10. He stated his mother has custody as of now. He does get along with his mother and he talks to his kid daily. His hope is to get custody of his kid again at some point. Pt spoke of his health issues as well. SW advised pt of what his oxygen prescription is for, 3 liters of oxygen on exertion and at night. Pt voiced he was not sure what exertion meant. SW explained this to pt. Pt did talk about his job. 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 Pt concerned about wearing oxygen while working at [employer] back around the grease etc. JAY is unsure. 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 He is going to continue to look for a job. At this point, JAY to stop back in daily to assess pt's needs for discharge.
--- NOTE | 2024-05-13 17:41 | PM.PLCN ---
History of Present Illness History of Present Illness Consult date: 05/13/24 Requesting physician: Shelton Elkins Chief complaint: shortness of breath, ASTHMA, FAILED OUTPATIENT Narrative: 33yo male, very well known to me. I currently see him @ [facility] in [place] for bronchiectasis. Was just admitted for pneumonia and discharged yesterday. Returned back to ER today and claimed he couldn't breathe. Chest CT done today does not show any significant changes compared to 01/10/2024. He has supplemental O2 @ home. I was able to get further information on the Luis. When I went to his room, he was urinating in a bedside urinal instead of walking to the bathroom. He states when he was discharged yesterday and went home, he was not wearing his supplemental oxygen because Dr. Raymond told me to try to get off it. He states he checked his pulse ox at home and it was about 86% on room air. He was slightly short of breath. I asked him if he put his oxygen back on and he stated he did not think about that. Instead, he came to the ER. He is asking me what he can do for his breathing. I stated that I already been seeing him over the years. He has been noncompliant with follow-up and recommendations in the past, hence why he was fired from my [place] practice. He established up at [facility] and I have been seeing him for the last several months. He has not been keeping up with his saline nebs. He states he has no refills. I asked him if he ever bother to call the office, he stated no. I advised the patient to take some ownership in his health. Despite counseling, he was still smoking until about 30 days ago. I am unclear if this timeline is true or not. He states he is not smoking marijuana, but he is asking about edibles. Review of Systems ROS Status of ROS 10 or more systems reviewed and unremarkable except as noted in history and below Respiratory Reports: shortness of breath [facility] Medical History (Updated 05/13/24 @ 08:27 by Bib Chang MD) Dyspnea ?R06.00 - Dyspnea, unspecified (ICD-10) Hypoxia ?R09.02 - Hypoxemia (ICD-10) Bronchiectasis with acute exacerbation ?J47.1 - Bronchiectasis with (acute) exacerbation (ICD-10) Depression with anxiety ?F41.8 - Other specified anxiety disorders (ICD-10) Pneumonia ?J18.9 - Pneumonia, unspecified organism (ICD-10) Bronchiectasis with acute lower respiratory infection ?J47.0 - Bronchiectasis with acute lower respiratory infection (ICD-10) Steroid-induced hyperglycemia ?R73.9 - Hyperglycemia, unspecified (ICD-10) ?T38.0X5A - Adverse effect of glucocorticoids and synthetic analogues, initial encounter (ICD-10) Hyponatremia ?E87.1 - Hypo-osmolality and hyponatremia (ICD-10) Chest wall pain ?R07.89 - Other chest pain (ICD-10) Pneumonia ?J18.9 - Pneumonia, unspecified organism (ICD-10) Malnutrition of moderate degree ?E44.0 - Moderate protein-calorie malnutrition (ICD-10) Depression ?F32.A - Depression, unspecified (ICD-10) Bronchiectasis ?J47.9 - Bronchiectasis, uncomplicated (ICD-10) Chronic respiratory failure with hypoxia ?J96.11 - Chronic respiratory failure with hypoxia (ICD-10) Upper respiratory infection ?J06.9 - Acute upper respiratory infection, unspecified (ICD-10) Acute hypokalemia ?E87.6 - Hypokalemia (ICD-10) Avulsion of skin ?T14.8XXA - Other injury of unspecified body region, initial encounter (ICD-10) Influenza ?J11.1 - Influenza due to unidentified influenza virus with other respiratory manifestations (ICD-10) Marijuana abuse ?F12.10 - Cannabis abuse, uncomplicated (ICD-10) Acute hypoxic respiratory failure ?J96.01 - Acute respiratory failure with hypoxia (ICD-10) Coronavirus infection ?B34.2 - Coronavirus infection, unspecified (ICD-10) Pneumonia ?J18.9 - Pneumonia, unspecified organism (ICD-10) Hospital-acquired bacterial pneumonia ?J15.9 - Unspecified bacterial pneumonia (ICD-10) COVID-19 ?U07.1 - COVID-19 (ICD-10) GERD (gastroesophageal reflux disease) ?K21.9 - Gastro-esophageal reflux disease without esophagitis (ICD-10) 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34 - 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) History of gastrostomy tube placement 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 (ICD-10) Pneumonia ?J18.9 - Pneumonia, unspecified organism (ICD-10) Abdominal pain ?R10.9 - Unspecified abdominal pain (ICD-10) Abdominal pain, acute ?R10.9 - Unspecified abdominal pain (ICD-10) Surgical History History of fundoplication ?Z98.890 - Other specified postprocedural states (ICD-10) History of appendectomy ?Z90.49 - Acquired absence of other specified parts of digestive tract (ICD-10) H/O chest tube placement ?Z98.890 - Other specified postprocedural states (ICD-10) History of facial surgery ?Z98.890 - Other specified postprocedural states (ICD-10) Family History Mother Family history of diabetes mellitus Family history of hypertension Grandmother Family history of diabetes mellitus Grandfather Family history of myocardial infarction Social History Within the past year, how often did you have a drink containing alcohol: 2-4 times a month Within the past year, how many standard drinks containing alcohol did you have on a typical day: 1 or 2 Within the past year, how often did you have six or more drinks on one occasion: weekly Total score: 3 Score interpretation: A score of 4 or more indicates drinking is likely to affect patient's safety. 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 Known occupational exposures/hazards: No Highest level of school completed/degree received: Associate degree: occupational, technical, vocational program Are you now , , , , never or living with a partner: In a typical week, how many times do you talk on the telephone with family, friends, or neighbors: 3 or more times per week How often do you get together with friends or relatives: once per week How often do you attend spiritism or jew services: never Do you belong to any clubs or organizations such as spiritism groups unions, [employer] or athletic groups, or school groups: no Total score: 1 Score interpretation: A score of less than or equal to 1 indicates the most socially isolated. Little interest or pleasure in doing things: not at all Feeling down, depressed, or hopeless: several days Feel stressed/tense/nervous/anxious/difficulty sleeping: not at all Do you think of yourself as: straight/heterosexual Gender Identity: male Meds Home Medications and Allergies Home Medications ?Medication ?Instructions ?Recorded ?Confirmed ?Type albuterol sulfate 2.5 mg/3 mL 2.5 mg (3 mL) inhalation Q6H PRN 05/25/23 05/13/24 Rx (0.083 %) solution for nebulization shortness of breath or wheezing #75 mL trazodone 50 mg tablet 50 mg PO BEDTIME PRN sleep 09/13/23 05/13/24 History albuterol sulfate 90 mcg/actuation 1 inh inhalation Q4H PRN shortness 03/22/24 05/13/24 Rx aerosol inhaler of breath or wheezing #8.5 grams mometasone-formoterol HFA 100 2 puff inhalation BID 05/08/24 05/13/24 History mcg-5 mcg/actuation aerosol inhaler (Dulera) sucralfate 1 gram tablet 1 g PO .TIDAC 05/08/24 05/13/24 History levofloxacin 750 mg tablet 750 mg PO DAILY 10 days #10 tabs 05/12/24 05/13/24 Rx prednisone 10 mg tablet 40 mg (4 x 10 mg) PO DAILY #32 tabs 05/12/24 05/13/24 Rx escitalopram oxalate 10 mg tablet 10 mg PO .QD 05/13/24 05/13/24 History hydroxyzine pamoate 25 mg capsule 25 mg PO BID PRN itching 05/13/24 05/13/24 History omeprazole 40 mg capsule,delayed 40 mg PO .BIDAC 05/13/24 05/13/24 History release Allergies Allergy/AdvReac Type Severity Reaction Status Date / Time Penicillins Allergy Intermediate Hives Verified 05/08/24 07:53 Exam Constitutional Vital Signs, click to edit/add: Last Vital Signs Temp 97.5 F L 05/13/24 15:56 Pulse 113 H 05/13/24 16:26 Resp 20 05/13/24 15:56 BP 129/64 05/13/24 15:56 Pulse Ox 92 L 05/13/24 16:26 O2 Del Method Nasal Cannula 05/13/24 16:26 O2 Flow Rate 2 05/13/24 16:26 Documenting provider has reviewed patient's vital signs: yes Common normals: no apparent distress HENMT Other: Wearing nasal cannula Chest Common normals: inspection of chest normal Respiratory Other: Diminished breath sounds. No wheezes. A few scattered rhonchi, not particularly impressive for his baseline. He does not appear to be in any respiratory distress. No conversational dyspnea. Cardio Common normals: regular rate and regular rhythm Results Laboratory Findings Abnormal lab findings: Abnormal Labs 05/13/24 07:15 WBC 13.0 H Lymphocytes % (Manual) 18.0 L Eosinophils % (Manual) 0.0 L Basophils % (Manual) 0.0 L Neutrophils # (Manual) 9.23 H Monocytes # (Manual) 1.17 H Potassium 3.4 L Calcium 8.1 L Assessment and Plan Assessment and Plan (1) Bronchiectasis with acute exacerbation: Assessment and Plan: 1. Bronchiectasis. From my examination, the patient appears to be at his baseline. I do not see any evidence that he is having an acute exacerbation. If he is out of his medications, he needs to be responsible and contact the office for refills. I explained to him again that he has a chronic condition that will not be cured, but could be managed with compliance of a good pulmonary toilet. He needs to contact the [facility] at discharge for any needed refills. 2. Chronic hypoxic respiratory failure. Patient already has home O2. He took it off and desaturated. The simple fix is the put the oxygen back on and see if his dyspnea improves. Explained that the patient will have a recovery time and may require oxygen. Is possible with the damage he is down to his lungs on top of his congenital condition he may require oxygen permanently and some degree. Plan Patient may be discharged from a pulmonary standpoint.
[2024-05-13] MEDS: TRAZODONE HCL 50 MG TABLET PO (23:15)
[2024-05-14 00:06] VITALS: BP 107/69; PULSE 127; TEMP 36.7; O2SAT 90
[2024-05-14 04:00] VITALS: BP 151/70; PULSE 93; TEMP 36.4; O2SAT 92
[2024-05-14] MEDS: IPRATROPIUM/ALBUTEROL SULFATE 3 ML AMPUL.NEB IH (04:19)
[2024-05-14 04:20] VITALS: PULSE 91; O2SAT 95
[2024-05-14] MEDS: METHYLPREDNISOLONE SOD SUCC PF 125 MG/2 ML VIAL IVP (05:06)
[2024-05-14] MEDS: CEFTAZIDIME 1,000 MG in 0.9 % SODIUM CHLORIDE 50 ML 100 MG IV (05:06)
[2024-05-14] MEDS: VANCOMYCIN HCL 750 MG in 0.9 % SODIUM CHLORIDE 250 ML 250 MG IV (05:08)
[2024-05-14 06:02] LABS: Basophils Percent Auto 0.2 % (0.2-2.0); Hematocrit 42.4 % (42.0-54.0); Hemoglobin 14.3 g/dL (14.0-18.0); Immature Granulocytes Abs Auto 0.35 10^3/uL (0.00-0.03); Immature Granulocytes Pct Auto 3.1 % (0.0-0.5); Lymphocytes Absolute Auto 0.7 10^3/uL (1.2-3.8); Lymphocytes Percent Auto 6.1 % (20.5-60.0); Mean Corpuscular HGB Conc 33.7 g/dL (29.9-35.2); Mean Corpuscular Hemoglobin 29.5 pg (25.9-34.0); Mean Corpuscular Volume 87.4 fL (80.0-94.0); Mean Platelet Volume 11.3 fL (9.5-13.5); Monocytes Absolute Auto 0.3 10^3/uL (0.3-0.8); Neutrophils Absolute Auto 10.1 10^3/uL (1.4-6.5); Neutrophils Percent Auto 87.6 % (43.0-75.0); Platelet Count 321 10^3/uL (150-450); Red Blood Count 4.85 10^6/uL (4.70-6.10); Red Cell Distribution Width 12.1 % (11.0-15.0); White Blood Count 11.5 10^3/uL (4.0-11.0)
[2024-05-14 06:22] LABS: Anion Gap 14.6; BUN Creatinine Ratio 17.8; Calcium 8.4 mg/dL (8.5-10.1); Carbon Dioxide 26.9 mmol/L (21.0-32.0); Chloride 102 mmol/L (98-107); Estimated GFR (African America >60 (>=60 mL/min/1.73m^2); Estimated GFR (Non-African Ame >60 (>=60 mL/min/1.73m^2); Glucose 178 mg/dL (74-106); Potassium 3.5 mmol/L (3.5-5.1); Sodium 140 mmol/L (136-145)
[2024-05-14 06:24] LABS: Theophylline 6.2 ug/mL (10.0-20.0)
--- NOTE | 2024-05-14 07:58 | P.DS_ITS ---
DS: Providers Provider Date of admission: 05/13/24 10:01 Primary care physician: REBEKAH BARBOZA Consults: 05/13/24 08:52 Consult to Pulmonology Routine Consulting Provider: Haja Mac Reason for consultation: asthma flare Has provider been notified: No DS: Diagnosis Discharge Diagnosis (1) Bronchiectasis with acute exacerbation: Plan Patient findings: Respiratory distress, tachycardia, leukocytosis, acute hypoxia with O2 sat on 2 L of going 92%, his baseline is 96 to 98% off of supplemental oxygen during the day, he has chronic hypoxic respiratory failure but only wears the oxygen at bedtime secondary to bronchiectasis Leukocytosis with acute hypoxia with acute exacerbation of asthma-proving at the time of discharge Chronic hypoxic respiratory failure secondary to bronchiectasis-improving at the time of discharge Hypokalemia-resolved GERD-continue with home medications Insomnia-continue with home medications Depression with anxiety-continue with home medications Admission status: Patient with failed outpatient management of his asthma, with recent discharge after 3 to 4-day hospitalization. Feels like this was a miscommunication with his oxygen supplementation, patient improved and placed him back on his home supplemental oxygen, medically necessary treatment only spanning 1 midnight ? DS: Summary Hospital Course Hospital Course: Patient admitted with acute hypoxia, 86% at home, he had not been wearing his supplemental oxygen as recommended by pulmonology, his home oxygen is 3 L at bedtime and with activity, 2 L otherwise. He is trying to maintain off of supplemental oxygen but failing that, here he was restarted back on his home supplemental oxygen 2 L at rest 3 L with activity and at at bedtime he is back at his baseline, does have some sputum production leukocytosis still concerning for acute infection but will maintain current antibiotics at home. Discharge patient home with close follow-up with pulmonology. Medications to this. Follow-up with PCP within the next week also Status at Discharge Functional status at discharge: independent ambulation Overall status at discharge: patient is back to baseline Time Spent with Patient Time attestation: Total time spent providing and/or coordinating discharge services: Time spent: greater than 30 minutes Exam Constitutional Vital Signs, click to edit/add: Last Vital Signs Temp 97.6 F 05/14/24 04:00 Pulse 91 H 05/14/24 04:20 Resp 24 H 05/14/24 04:20 BP 151/70 H 05/14/24 04:00 Pulse Ox 95 05/14/24 04:20 O2 Del Method Nasal Cannula 05/14/24 04:20 O2 Flow Rate 3 05/14/24 04:20 Documenting provider has reviewed patient's vital signs: yes Common normals: apparent distress (Mild conversational dyspnea) Chest Common normals: inspection of chest normal Respiratory Common normals: normal respiratory effort (Less conversational dyspnea) Auscultation: rhonchi (Better air exchange) and wheezes Cardio Common normals: regular rate and regular rhythm GI Common normals: Normal to inspection, nondistended, normoactive bowel sounds present Neuro Common normals: CN's II-XII intact bilaterally and moves all extremities DS: Data Data Completed and Pending Labs on day of discharge: Labs from last 24 hours 05/14/24 05/13/24 05/13/24 05:45 08:20 08:00 WBC 11.5 H RBC 4.85 Hgb 14.3 Hct 42.4 MCV 87.4 MCH 29.5 MCHC 33.7 RDW 12.1 Plt Count 321 MPV 11.3 Neut % (Auto) 87.6 H Lymph % (Auto) 6.1 L Weld % (Auto) 3.0 Eos % (Auto) 0.0 L Baso % (Auto) 0.2 Neut # (Auto) 10.1 H Lymph # (Auto) 0.7 L Weld # (Auto) 0.3 Eos # (Auto) 0.0 Baso # (Auto) 0.0 Abs Immat Gran (auto) 0.35 H Seg Neuts % (Manual) Lymphocytes % (Manual) Monocytes % (Manual) Eosinophils % (Manual) Basophils % (Manual) Metamyelocytes % Imm/Tot Granulo (auto) 3.1 H Neutrophils # (Manual) Lymphocytes # (Manual) Monocytes # (Manual) Eosinophils # (Manual) Basophils # (Manual) Metamyelocytes # Sodium 140 Potassium 3.5 Chloride 102 Carbon Dioxide 26.9 Anion Gap 14.6 BUN 18.0 Creatinine 1.01 Est GFR ( Amer) >60 Est GFR (Non-Af Amer) >60 BUN/Creatinine Ratio 17.8 Glucose 178 H Calcium 8.4 L Theophylline 6.2 L Influenza Type A Ag Negative Influenza Type B Ag Negative SARS-CoV-2 Ag (CV2AG) Negative 05/13/24 07:15 WBC RBC Hgb Hct MCV MCH MCHC RDW Plt Count MPV Neut % (Auto) Lymph % (Auto) Weld % (Auto) Eos % (Auto) Baso % (Auto) Neut # (Auto) Lymph # (Auto) Weld # (Auto) Eos # (Auto) Baso # (Auto) Abs Immat Gran (auto) Seg Neuts % (Manual) 71.0 Lymphocytes % (Manual) 18.0 L Monocytes % (Manual) 9.0 Eosinophils % (Manual) 0.0 L Basophils % (Manual) 0.0 L Metamyelocytes % 2.0 Imm/Tot Granulo (auto) Neutrophils # (Manual) 9.23 H Lymphocytes # (Manual) 2.34 Monocytes # (Manual) 1.17 H Eosinophils # (Manual) 0.00 Basophils # (Manual) 0.00 Metamyelocytes # 0.26 Sodium Potassium Chloride Carbon Dioxide Anion Gap BUN Creatinine Est GFR ( Amer) Est GFR (Non-Af Amer) BUN/Creatinine Ratio Glucose Calcium Theophylline Influenza Type A Ag Influenza Type B Ag SARS-CoV-2 Ag (CV2AG) Discharge Plan Discharge Disposition: Home, Self-Care Condition: Good Discharge Medications: Continued trazodone 50 mg tablet 50 mg PO BEDTIME PRN (Reason: sleep) albuterol sulfate 90 mcg/actuation HFA aerosol inhaler 1 inh inhalation Q4H PRN (Reason: shortness of breath or wheezing) Qty: 8.5 0RF albuterol sulfate 2.5 mg /3 mL (0.083 %) solution for nebulization 2.5 mg inhalation Q6H PRN (Reason: shortness of breath or wheezing) Qty: 75 0RF Dulera 100-5 mcg/actuation HFA aerosol inhaler 2 puff INHALATION BID sucralfate 1 gram tablet 1 g PO .TIDAC prednisone 10 mg tablet 40 mg PO DAILY Qty: 32 0RF Rx Instructions: 4/day for 3 days, 3/day for 3 days, 2/day for 3 days, 1/day for 3 days, 1/2 /day for 4 days levofloxacin 750 mg tablet 750 mg PO DAILY 10 Days Qty: 10 0RF hydroxyzine pamoate 25 mg capsule 25 mg PO BID PRN (Reason: itching) omeprazole 40 mg capsule,delayed release(DR/EC) 40 mg PO .BIDAC Print Language: Ecuadorean Forms: Portal Instructions
[2024-05-14 08:00] VITALS: BP 127/63; PULSE 115; TEMP 36.8; O2SAT 92
[2024-05-14] MEDS: THEOPHYLLINE 300 MG TAB.ER.12H PO (08:27)
[2024-05-14] MEDS: OMEPRAZOLE 40 MG CAPSULE.DR PO (08:27)
[2024-05-14] MEDS: SUCRALFATE 1 GM TABLET PO (08:27)
--- NOTE | 2024-05-15 12:48 | CM.DCFOLLOWU ---
Person spoke with: Luis How are you feeling? Slowly getting better How is your pain? No pain Did you understand your discharge instructions? Yes Do you have any questions about your discharge instructions? No Were you given any prescriptions at discharge? No Were you able to get your prescriptions filled? N/A Do you understand how to take your medications as ordered? Yes Do you have any questions about your follow up appointment and do you plan to keep your follow up appointment? No they are scheduled and I will go to the appt. Is there anything else that you would like to discuss? No Questions/Comments/Concerns/Other:
== END 2024-05-14 10:40 | disposition home or self-care (01) ==
LOC: ER 08:27 → MS 05-14 07:54
PROVIDERS: Admitting Provider Family Medicine; Emergency Provider Emergency Medicine; PCP Nurse Practitioner Family; Visit Provider Family Medicine
DX: J45.901 Unspecified asthma with (acute) exacerbation (principal); J47.9 Bronchiectasis, uncomplicated; J18.9 Pneumonia, unspecified organism; J96.21 Acute and chronic respiratory failure with hypoxia; E87.0 Hyperosmolality and hypernatremia; E87.6 Hypokalemia; G47.00 Insomnia, unspecified; F17.290 Nicotine dependence, other tobacco product, uncomplicated; K21.9 Gastro-esophageal reflux disease without esophagitis; F41.8 Other specified anxiety disorders; Z86.16 Personal history of COVID-19; Z87.01 Personal history of pneumonia (recurrent); F32.9 Major depressive disorder, single episode, unspecified; G47.34 Idiopathic sleep related nonobstructive alveolar hypoventilation; Z79.899 Other long term (current) drug therapy; Z99.81 Dependence on supplemental oxygen; Z80.0 Family history of malignant neoplasm of digestive organs; Z91.199 Patient's noncompliance with other medical treatment and regimen due to unspecified reason
CPT/HCPCS: 36415; 71045; 71275; 80048; 80198; 85007; 85025; 85027; 87040; 87070; 87804; 87811; 93005; 94640; 94667; 94668; 94761; 96374; 99285; G0378; J0713; J2919; J3370; Q9967

== ENCOUNTER 2024-05-22 18:24 | Emergency (ER) | payer MEDICARE, MEDICAID, SELFPAY ==
--- NOTE | 2024-05-22 18:29 | ECG_ITS ---
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
--- NOTE | 2024-05-22 18:30 | XR_ITS ---
The [address] [address] Patient Name: FRANCIS GALVEZ MRN: [id number] date: 1990 Sex: M Assigned Patient Location: ER Current Patient Location: ER Accession/Order Number: [id number] Exam Date: 05/22/2024 19:12 Report Date: 05/22/2024 20:46 At the request of: RON MARTINEZ Procedure: XR chest 1V EXAMINATION: XR chest 1V HISTORY: Shortness of breath COMPARISON: XR chest 05/13/2024, 05/08/2023 FINDINGS: LUNGS: Persistent opacity within medial right lower lung likely secondary to pectus excavatum. VASCULATURE: No increased pulmonary vasculature. PLEURA: Blunting of left lateral costal phrenic angle. CARDIAC: No cardiomegaly or cardiac silhouette abnormality. MEDIASTINUM: No visible mass or adenopathy. BONES: No fracture or visible bone lesion. OTHER: Negative. XR/XR chest 1V IMPRESSION: 1. Suspect small left pleural effusion versus secondary to flattening of the diaphragm from hyperexpansion the lungs. 2. Chronic right lung findings suspected to be secondary to pectus excavatum. Electronically authenticated by: GUS BANERJEE Date: 05/22/2024 20:46
--- NOTE | 2024-05-22 18:30 | ED.GENADUL1 ---
HPI HPI - General Adult General Chief complaint: Upper Respiratory Infection Stated complaint: diff breathing, cp Time Seen by Provider: 05/22/24 18:29 Source: patient History of Present Illness HPI narrative: Patient is a 33-year-old male who is well-known to this emergency department for history of COPD, respiratory failure who comes in tonight complaining of continued weakness, difficulty breathing, chest discomfort, sore throat, sputum production. He reports decreased appetite. He was hospitalized on 05/13/24. He states that he finished antibiotics and steroids 1 week ago. He has not had any new objective fevers, hemoptysis or leg swelling. He states the last 3 days at work he has felt very short of breath and weak. No medications taken prior to arrival. Related Data Home Medications ?Medication ?Instructions ?Recorded ?Confirmed trazodone 50 mg tablet 50 mg PO BEDTIME PRN sleep 09/13/23 05/13/24 mometasone-formoterol HFA 100 2 puff inhalation BID 05/08/24 05/13/24 mcg-5 mcg/actuation aerosol inhaler (Dulera) sucralfate 1 gram tablet 1 g PO .TIDAC 05/08/24 05/13/24 hydroxyzine pamoate 25 mg capsule 25 mg PO BID PRN itching 05/13/24 05/13/24 omeprazole 40 mg capsule,delayed 40 mg PO .BIDAC 05/13/24 05/13/24 release Previous Rx's ?Medication ?Instructions ?Recorded albuterol sulfate 2.5 mg/3 mL 2.5 mg (3 mL) inhalation Q6H PRN 05/25/23 (0.083 %) solution for nebulization shortness of breath or wheezing #75 mL albuterol sulfate 90 mcg/actuation 1 inh inhalation Q4H PRN shortness 03/22/24 aerosol inhaler of breath or wheezing #8.5 grams levofloxacin 750 mg tablet 750 mg PO DAILY 10 days #10 tabs 05/12/24 prednisone 10 mg tablet 40 mg (4 x 10 mg) PO DAILY #32 tabs 05/12/24 zxnfpjrczwbtpqv-rfgzzxtounmcyam-NN 10 ml PO Q6H PRN cold symptoms 05/22/24 2 mg-30 mg-10 mg/5 mL oral syrup #200 mL (Bromfed DM) cefdinir 300 mg capsule 300 mg PO BID 10 days #20 caps 05/22/24 methylprednisolone 4 mg tablets in See Rx Instructions .Route 05/22/24 a dose pack (Medrol (Daniel)) .COMPLEX #21 ea Allergies Allergy/AdvReac Type Severity Reaction Status Date / Time Penicillins Allergy Intermediate Hives Verified 05/08/24 07:53 Opioid HPI Opioid Management Most Recent Opioid Data: Last Pain Scale 0 05/12/24 10:00 05/12/24 Last ORT Total Score 14 05/13/24 10:19 05/13/24 Last ORT Risk Category High Risk 05/13/24 10:19 05/13/24 Review of Systems ROS Constitutional Denies: fever or chills Ears, nose, mouth, and throat Reports: throat pain and nasal congestion Cardiovascular Reports: chest pain Respiratory Reports: shortness of breath, cough, wheezing, change in phlegm color and chest congestion; Denies: coughing up blood Gastrointestinal Denies: nausea or vomiting Integumentary/Breast Denies: rash Neurological Denies: numbness in extremities or weakness in extremities Hematologic/Lymphatic Denies: easy bruising or easy bleeding PFSH PFSH Medical History (Updated 05/22/24 @ 21:01 by JONATHAN Alvarenga) Insomnia ?G47.00 - Insomnia, unspecified (ICD-10) Hypernatremia ?E87.0 - Hyperosmolality and hypernatremia (ICD-10) Right lower lobe pneumonia ?J18.9 - Pneumonia, unspecified organism (ICD-10) Lactic acidosis ?E87.20 - Acidosis, unspecified (ICD-10) Chronic hypoxic respiratory failure, on home oxygen therapy ?J96.11 - Chronic respiratory failure with hypoxia (ICD-10) ?Z99.81 - Dependence on supplemental oxygen (ICD-10) Asthma exacerbation ?J45.901 - Unspecified asthma with (acute) exacerbation (ICD-10) Pneumonia ?J18.9 - Pneumonia, unspecified organism (ICD-10) Upper respiratory infection ?J06.9 - Acute upper respiratory infection, unspecified (ICD-10) Anxiety ?F41.9 - Anxiety disorder, unspecified (ICD-10) Esophagitis with gastritis ?K29.70 - Gastritis, unspecified, without bleeding (ICD-10) ?K20.90 - Esophagitis, unspecified without bleeding (ICD-10) Leukocytosis ?D72.829 - Elevated white blood cell count, unspecified (ICD-10) Dyspnea ?R06.00 - Dyspnea, unspecified (ICD-10) Hypoxia ?R09.02 - Hypoxemia (ICD-10) Bronchiectasis with acute exacerbation ?J47.1 - Bronchiectasis with (acute) exacerbation (ICD-10) Depression with anxiety ?F41.8 - Other specified anxiety disorders (ICD-10) Pneumonia ?J18.9 - Pneumonia, unspecified organism (ICD-10) Bronchiectasis with acute lower respiratory infection ?J47.0 - Bronchiectasis with acute lower respiratory infection (ICD-10) Steroid-induced hyperglycemia ?R73.9 - Hyperglycemia, unspecified (ICD-10) ?T38.0X5A - Adverse effect of glucocorticoids and synthetic analogues, initial encounter (ICD-10) Hyponatremia ?E87.1 - Hypo-osmolality and hyponatremia (ICD-10) Chest wall pain ?R07.89 - Other chest pain (ICD-10) Pneumonia ?J18.9 - Pneumonia, unspecified organism (ICD-10) Malnutrition of moderate degree ?E44.0 - Moderate protein-calorie malnutrition (ICD-10) Depression ?F32.A - Depression, unspecified (ICD-10) Bronchiectasis ?J47.9 - Bronchiectasis, uncomplicated (ICD-10) Chronic respiratory failure with hypoxia ?J96.11 - Chronic respiratory failure with hypoxia (ICD-10) Upper respiratory infection ?J06.9 - Acute upper respiratory infection, unspecified (ICD-10) Acute hypokalemia ?E87.6 - Hypokalemia (ICD-10) Avulsion of skin ?T14.8XXA - Other injury of unspecified body region, initial encounter (ICD-10) Influenza ?J11.1 - Influenza due to unidentified influenza virus with other respiratory manifestations (ICD-10) Marijuana abuse ?F12.10 - Cannabis abuse, uncomplicated (ICD-10) Acute hypoxic respiratory failure ?J96.01 - Acute respiratory failure with hypoxia (ICD-10) Coronavirus infection ?B34.2 - Coronavirus infection, unspecified (ICD-10) Pneumonia ?J18.9 - Pneumonia, unspecified organism (ICD-10) Hospital-acquired bacterial pneumonia ?J15.9 - Unspecified bacterial pneumonia (ICD-10) COVID-19 ?U07.1 - COVID-19 (ICD-10) GERD (gastroesophageal reflux disease) ?K21.9 - Gastro-esophageal reflux disease without esophagitis (ICD-10) 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34 - 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) History of gastrostomy tube placement 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 (ICD-10) Pneumonia ?J18.9 - Pneumonia, unspecified organism (ICD-10) Abdominal pain ?R10.9 - Unspecified abdominal pain (ICD-10) Abdominal pain, acute ?R10.9 - Unspecified abdominal pain (ICD-10) Surgical History History of fundoplication ?Z98.890 - Other specified postprocedural states (ICD-10) History of appendectomy ?Z90.49 - Acquired absence of other specified parts of digestive tract (ICD-10) H/O chest tube placement ?Z98.890 - Other specified postprocedural states (ICD-10) History of facial surgery ?Z98.890 - Other specified postprocedural states (ICD-10) Family History Mother Family history of diabetes mellitus Family history of hypertension Grandmother Family history of diabetes mellitus Grandfather Family history of myocardial infarction Social History Within the past year, how often did you have a drink containing alcohol: 2-4 times a month Within the past year, how many standard drinks containing alcohol did you have on a typical day: 1 or 2 Within the past year, how often did you have six or more drinks on one occasion: weekly Total score: 3 Score interpretation: A score of 4 or more indicates drinking is likely to affect patient's safety. 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 Known occupational exposures/hazards: No Highest level of school completed/degree received: Associate degree: occupational, technical, vocational program Are you now , , , , never or living with a partner: In a typical week, how many times do you talk on the telephone with family, friends, or neighbors: 3 or more times per week How often do you get together with friends or relatives: once per week How often do you attend gnosticist or methodist services: never Do you belong to any clubs or organizations such as gnosticist groups unions, fraternal or athletic groups, or school groups: no Total score: 1 Score interpretation: A score of less than or equal to 1 indicates the most socially isolated. Little interest or pleasure in doing things: not at all Feeling down, depressed, or hopeless: not at all Feel stressed/tense/nervous/anxious/difficulty sleeping: not at all Do you think of yourself as: straight/heterosexual Gender Identity: male Exam Narrative Exam Narrative: Gen.: Awake, alert, in no distress Head: Normocephalic, atraumatic ENT: Moist mucous membranes Respiratory: No respiratory distress, inspiratory and expiratory wheezing, scattered rhonchi Cardio: Regular rate and rhythm Extremities: Moves extremities equally Psych: Normal mood and affect Neuro: No focal neuro deficit Skin: Warm, dry, intact Constitutional Vital Signs, click to edit/add: Last Vital Signs Temp 98.5 F 05/22/24 19:06 Pulse 89 05/22/24 20:00 Resp 19 05/22/24 20:00 BP 115/65 05/22/24 20:00 Pulse Ox 94 L 05/22/24 20:00 O2 Del Method Room Air 05/22/24 18:48 Course Vital Signs Vital signs: Vital Signs Temperature 98.3 F 05/22/24 18:31 Pulse Rate 96 H 05/22/24 18:31 Respiratory Rate 20 05/22/24 18:31 Blood Pressure 120/62 05/22/24 18:31 Pulse Oximetry 96 05/22/24 18:31 Oxygen Delivery Method Room Air 05/22/24 18:31 Temperature 98.5 F 05/22/24 19:06 Pulse Rate 89 05/22/24 20:00 Respiratory Rate 19 05/22/24 20:00 Blood Pressure 115/65 05/22/24 20:00 Pulse Oximetry 94 L 05/22/24 20:00 Oxygen Delivery Method Room Air 05/22/24 18:48 Medical Decision Making MDM Narrative Medical decision making narrative: Patient medicated in the ER, breathing treatment, Solu-Medrol. Lab studies are stable with no leukocytosis or evidence of sepsis. Chest x-ray with no evidence of new acute process. Patient hemodynamically stable with no tachycardia or hypoxia. He has no oxygen requirements in the ER. No indication for admission at this time. He is placed back on antibiotics, steroids and given cough medication with a decongestant. Continue breathing treatments at home and follow-up with PCP. Return to the ER if symptoms change or worsen SUPERVISED APC VISIT, PHYSICIAN ATTESTATION: Based on the medical record the care appears appropriate. ? Medical Records Medical records reviewed: Yes I reviewed the patient's medical records Lab Data Lab results reviewed: Yes I reviewed the patient's lab results Labs: Lab Results 05/22/24 05/22/24 Range/Units 18:44 18:54 WBC 9.7 (4.0-11.0) 10^3/uL RBC 5.11 (4.70-6.10) 10^6/uL Hgb 15.2 (14.0-18.0) g/dL Hct 45.4 (42.0-54.0) % MCV 88.8 (80.0-94.0) fL MCH 29.7 (25.9-34.0) pg MCHC 33.5 (29.9-35.2) g/dL RDW 12.4 (11.0-15.0) % Plt Count 246 (150-450) 10^3/uL MPV 12.0 (9.5-13.5) fL Neut % (Auto) 73.2 (43.0-75.0) % Lymph % (Auto) 14.6 L (20.5-60.0) % [place] % (Auto) 10.2 (1.7-12.0) % Eos % (Auto) 0.9 (0.9-7.0) % Baso % (Auto) 0.2 (0.2-2.0) % Neut # (Auto) 7.1 H (1.4-6.5) 10^3/uL Lymph # (Auto) 1.4 (1.2-3.8) 10^3/uL [place] # (Auto) 1.0 H (0.3-0.8) 10^3/uL Eos # (Auto) 0.1 (0.0-0.7) 10^3/uL Baso # (Auto) 0.0 (0.0-0.1) 10^3/uL Abs Immat Gran (auto) 0.09 H (0.00-0.03) 10^3/uL Imm/Tot Granulo (auto) 0.9 H (0.0-0.5) % PT 10.2 (9.0-11.6) sec INR 0.96 VBG pH 7.442 H (7.330-7.430) VBG pCO2 42.5 (40.0-52.0) mmHg Sodium 140 (136-145) mmol/L Potassium 4.1 (3.5-5.1) mmol/L Chloride 105 (98-107) mmol/L Carbon Dioxide 29.8 (21.0-32.0) mmol/L Anion Gap 9.3 BUN 16.0 (7.0-18.0) mg/dL Creatinine 1.00 (0.70-1.30) mg/dL Est GFR ( Amer) >60 (>=60 mL/min/1.73m^2) Est GFR (Non-Af Amer) >60 (>=60 mL/min/1.73m^2) BUN/Creatinine Ratio 16.0 Glucose 107 H (74-106) mg/dL Lactate 1.0 (0.4-2.0) mmol/L Calcium 9.1 (8.5-10.1) mg/dL Total Bilirubin 0.5 (0.2-1.0) mg/dL AST 22 (15-37) U/L ALT 31 (16-63) U/L Alkaline Phosphatase 99 (46-116) U/L Troponin I High Sens 4.6 (4.0-76.1) pg/mL NT-Pro-B Natriuret Pep 14.0 (<=450.0) pg/mL Total Protein 6.6 (6.4-8.2) g/dL Albumin 3.3 L (3.4-5.0) g/dL Globulin 3.3 g/dL Albumin/Globulin Ratio 1.0 Influenza Type A Ag Negative Influenza Type B Ag Negative RSV Antigen Not detected (NOT DETECTE) SARS-CoV-2 Ag (CV2AG) Negative (NEGATIVE) Imaging Data Chest x-ray: Attestation: I have reviewed the pertinent imaging results. Radiologist's impression: ITS Impressions Chest X-Ray 05/22/24 18:30 IMPRESSION: 1. Suspect small left pleural effusion versus secondary to flattening of the diaphragm from hyperexpansion the lungs. 2. Chronic right lung findings suspected to be secondary to pectus excavatum. Electronically authenticated by: GUS BANERJEE Date: 05/22/2024 20:46 ECG Data Attestation: I personally reviewed and interpreted this ECG as follows: (Normal sinus rhythm at a rate of 90, no acute ST elevation or ectopy. EKG reviewed by attending physician) Discharge Plan Discharge Chief Complaint: Upper Respiratory Infection Clinical Impression: Upper respiratory infection, Chronic shortness of breath Patient Disposition: Home, Self-Care Time of Disposition Decision: 21:01 Condition: Good Prescriptions / Home Meds: New ofzqryoaqoygdbl-aomyahsma-DV [Bromfed DM] 2-30-10 mg/5 mL syrup 10 ml PO Q6H PRN (Reason: cold symptoms) Qty: 200 0RF methylprednisolone [Medrol (Daniel)] 4 mg tablets,dose pack See Rx Instructions .ROUTE .COMPLEX Qty: 21 0RF Rx Instructions: Taper as directed cefdinir 300 mg capsule 300 mg PO BID 10 Days Qty: 20 0RF No Action trazodone 50 mg tablet 50 mg PO BEDTIME PRN (Reason: sleep) albuterol sulfate 90 mcg/actuation HFA aerosol inhaler 1 inh inhalation Q4H PRN (Reason: shortness of breath or wheezing) Qty: 8.5 0RF albuterol sulfate 2.5 mg /3 mL (0.083 %) solution for nebulization 2.5 mg inhalation Q6H PRN (Reason: shortness of breath or wheezing) Qty: 75 0RF Dulera 100-5 mcg/actuation HFA aerosol inhaler 2 puff INHALATION BID sucralfate 1 gram tablet 1 g PO .TIDAC prednisone 10 mg tablet 40 mg PO DAILY Qty: 32 0RF Rx Instructions: 4/day for 3 days, 3/day for 3 days, 2/day for 3 days, 1/day for 3 days, 1/2 /day for 4 days levofloxacin 750 mg tablet 750 mg PO DAILY 10 Days Qty: 10 0RF hydroxyzine pamoate 25 mg capsule 25 mg PO BID PRN (Reason: itching) omeprazole 40 mg capsule,delayed release(DR/EC) 40 mg PO .BIDAC Print Language: [place] Instructions: Upper Respiratory Infection (ED) Referrals: REBEKAH BARBOZA [Primary Care Provider] - 1 week Discharge Date/Time: 05/22/24 21:14
[2024-05-22 18:31] VITALS: BP 120/62; PULSE 96; TEMP 36.8; O2SAT 96; BMI 23.8
[2024-05-22] MEDS: ALBUTEROL SULFATE 2.5 MG/3 ML VIAL NEB IH (18:46)
[2024-05-22 18:48] VITALS: PULSE 85; O2SAT 94
[2024-05-22] MEDS: METHYLPREDNISOLONE SOD SUCC PF 125 MG/2 ML VIAL IVP (18:52)
[2024-05-22 19:06] VITALS: BP 114/73; PULSE 95; TEMP 36.9; O2SAT 95
--- NOTE | 2024-05-22 19:07 | PC.NURSE ---
i introduced myself to this patient, this patient lying awake and alert on the bed, this patient voices no concerns and shows no signs of distress
[2024-05-22 19:08] LABS: Basophils Percent Auto 0.2 % (0.2-2.0); Eosinophils Absolute Auto 0.1 10^3/uL (0.0-0.7); Eosinophils Percent Auto 0.9 % (0.9-7.0); Hematocrit 45.4 % (42.0-54.0); Hemoglobin 15.2 g/dL (14.0-18.0); Immature Granulocytes Abs Auto 0.09 10^3/uL (0.00-0.03); Immature Granulocytes Pct Auto 0.9 % (0.0-0.5); Lymphocytes Absolute Auto 1.4 10^3/uL (1.2-3.8); Lymphocytes Percent Auto 14.6 % (20.5-60.0); Mean Corpuscular HGB Conc 33.5 g/dL (29.9-35.2); Mean Corpuscular Hemoglobin 29.7 pg (25.9-34.0); Mean Corpuscular Volume 88.8 fL (80.0-94.0); Monocytes Percent Auto 10.2 % (1.7-12.0); Neutrophils Absolute Auto 7.1 10^3/uL (1.4-6.5); Neutrophils Percent Auto 73.2 % (43.0-75.0); Platelet Count 246 10^3/uL (150-450); Red Blood Count 5.11 10^6/uL (4.70-6.10); Red Cell Distribution Width 12.4 % (11.0-15.0); White Blood Count 9.7 10^3/uL (4.0-11.0)
[2024-05-22 19:09] LABS: PCO2 VBG 42.5 mmHg (40.0-52.0); pH VBG 7.442 (7.330-7.430)
[2024-05-22 19:21] LABS: INR 0.96; Prothrombin Time 10.2 sec (9.0-11.6)
[2024-05-22 19:29] LABS: Influenza Virus A Antigen Negative; Influenza Virus B Antigen Negative; Internal Control Within Normal Limits; Respiratory Syncytial Virus Not Detected (NOT DETECTE); SARS-CoV-2 Ag NEGATIVE (NEGATIVE)
[2024-05-22 19:36] LABS: Anion Gap 9.3
[2024-05-22 19:38] LABS: Alanine Aminotransferase 31 U/L (16-63); Albumin Level 3.3 g/dL (3.4-5.0); Alkaline Phosphatase 99 U/L (46-116); Aspartate Amino Transferase 22 U/L (15-37); Bilirubin Total 0.5 mg/dL (0.2-1.0); Calcium 9.1 mg/dL (8.5-10.1); Carbon Dioxide 29.8 mmol/L (21.0-32.0); Chloride 105 mmol/L (98-107); Estimated GFR (African America >60 (>=60 mL/min/1.73m^2); Estimated GFR (Non-African Ame >60 (>=60 mL/min/1.73m^2); Globulin 3.3 g/dL; Glucose 107 mg/dL (74-106); Potassium 4.1 mmol/L (3.5-5.1); Sodium 140 mmol/L (136-145); Total Protein 6.6 g/dL (6.4-8.2); Troponin I High Sensitivity 4.6 pg/mL (4.0-76.1)
[2024-05-22 20:00] VITALS: BP 115/65; PULSE 89; O2SAT 94
--- NOTE | 2024-05-22 20:01 | PC.NURSE ---
this patient resting on his left side on the bed awake and alert. i informed this patient that we are waiting on the x-ray results. this patient voices no concerns and shows no signs of distress
--- NOTE | 2024-05-22 21:13 | PC.NURSE ---
i gave this patient verbal and written discharge orders along with 3 e-scripts and 1 work note and this patient voices junie to understanding these. at time of discharge this patient voices no concerns and shows no signs of distress
== END 2024-05-22 21:14 | disposition home or self-care (01) ==
PROVIDERS: Physician Assistant; Emergency Provider Emergency Medicine; PCP Nurse Practitioner Family
DX: J06.9 Acute upper respiratory infection, unspecified (principal); R06.02 Shortness of breath; F17.290 Nicotine dependence, other tobacco product, uncomplicated
CPT/HCPCS: 36415; 71045; 80053; 82800; 83605; 83880; 84484; 85025; 85610; 87040; 87420; 87804; 87811; 93005; 94640; 96374; 99285; J2919

== ENCOUNTER 2024-07-03 06:12 | Emergency (ER) | payer MEDICARE, SELFPAY ==
[2024-07-03] VITALS (9 sets, daily range): BP systolic 107–120; BP diastolic 68–85; PULSE 86–101; TEMP 37.2; O2SAT 92–96; BMI 22.5
--- NOTE | 2024-07-03 06:14 | ECG_ITS ---
[facility] Test Date: 2024-07-03 Pat Name: FRANCIS GALVEZ Department: Room: - Gender: Male Channeler: : 1990 Requested By: REBEKAH BARBOZA Order Number: [id number] Reading MD: CAROL ANN WOODALL Measurements Intervals [place] Rate: 99 P: 70 NC: 124 QRS: 143 QRSD: 76 T: 83 QT: 342 QTc: 398 Interpretive Statements 1100 Sinus rhythm 2420 RSR (QR) in lead V1/V2, consistent with right ventricular conduction delay 2730 Left posterior fascicular block 9150 abnormal ECG Compared to ECG 05/22/2024 18:41:06 Left posterior fascicular block now present Electronically Signed On 07-03-2024 20:12:18 EST by CAROL ANN WOODALL
--- NOTE | 2024-07-03 06:31 | PC.NURSE ---
No visible s/s of trauma noted to the chest. LS are diminished but present. No SQ emphysema.
--- NOTE | 2024-07-03 06:40 | ED.GENADUL1 ---
HPI HPI - General Adult General Chief complaint: Chest Pain Stated complaint: FALL Time Seen by Provider: 07/03/24 06:32 Source: patient Source information: EMS crew Mode of arrival: ambulance History of Present Illness HPI narrative: 33-year-old male presents to the emergency for chief complaint of pain on his sternum. He slipped on ice about 11:30 PM, about 7 hours ago, and he hit this area on a step. He had slipped on ice. It is a sharp pain and it severe. He did not hit his head and has no abdominal pain or other injury. Related Data Home Medications ?Medication ?Instructions ?Recorded ?Confirmed trazodone 50 mg tablet 50 mg PO BEDTIME PRN sleep 09/13/23 07/03/24 sucralfate 1 gram tablet 1 g PO .TIDAC 05/08/24 07/03/24 omeprazole 40 mg capsule,delayed 40 mg PO .BIDAC 05/13/24 07/03/24 release Previous Rx's ?Medication ?Instructions ?Recorded albuterol sulfate 2.5 mg/3 mL 2.5 mg (3 mL) inhalation Q6H PRN 05/25/23 (0.083 %) solution for nebulization shortness of breath or wheezing #75 mL albuterol sulfate 90 mcg/actuation 1 inh inhalation Q4H PRN shortness 03/22/24 aerosol inhaler of breath or wheezing #8.5 grams Allergies Allergy/AdvReac Type Severity Reaction Status Date / Time Penicillins Allergy Intermediate Hives Verified 07/03/24 06:22 Opioid HPI Opioid Management Most Recent Opioid Data: Last Pain Scale 0 05/12/24 10:00 05/12/24 Last ORT Total Score 14 05/13/24 10:19 05/13/24 Last ORT Risk Category High Risk 05/13/24 10:19 05/13/24 Review of Systems ROS Narrative A ten point review of systems is negative except as noted above. [facility] Medical History (Updated 07/03/24 @ 06:44 by Bib Chang MD) Insomnia ?G47.00 - Insomnia, unspecified (ICD-10) Hypernatremia ?E87.0 - Hyperosmolality and hypernatremia (ICD-10) Right lower lobe pneumonia ?J18.9 - Pneumonia, unspecified organism (ICD-10) Lactic acidosis ?E87.20 - Acidosis, unspecified (ICD-10) Chronic hypoxic respiratory failure, on home oxygen therapy ?J96.11 - Chronic respiratory failure with hypoxia (ICD-10) ?Z99.81 - Dependence on supplemental oxygen (ICD-10) Asthma exacerbation ?J45.901 - Unspecified asthma with (acute) exacerbation (ICD-10) Pneumonia ?J18.9 - Pneumonia, unspecified organism (ICD-10) Upper respiratory infection ?J06.9 - Acute upper respiratory infection, unspecified (ICD-10) Anxiety ?F41.9 - Anxiety disorder, unspecified (ICD-10) Esophagitis with gastritis ?K29.70 - Gastritis, unspecified, without bleeding (ICD-10) ?K20.90 - Esophagitis, unspecified without bleeding (ICD-10) Leukocytosis ?D72.829 - Elevated white blood cell count, unspecified (ICD-10) Dyspnea ?R06.00 - Dyspnea, unspecified (ICD-10) Hypoxia ?R09.02 - Hypoxemia (ICD-10) Bronchiectasis with acute exacerbation ?J47.1 - Bronchiectasis with (acute) exacerbation (ICD-10) Depression with anxiety ?F41.8 - Other specified anxiety disorders (ICD-10) Pneumonia ?J18.9 - Pneumonia, unspecified organism (ICD-10) Bronchiectasis with acute lower respiratory infection ?J47.0 - Bronchiectasis with acute lower respiratory infection (ICD-10) Steroid-induced hyperglycemia ?R73.9 - Hyperglycemia, unspecified (ICD-10) ?T38.0X5A - Adverse effect of glucocorticoids and synthetic analogues, initial encounter (ICD-10) Hyponatremia ?E87.1 - Hypo-osmolality and hyponatremia (ICD-10) Chest wall pain ?R07.89 - Other chest pain (ICD-10) Pneumonia ?J18.9 - Pneumonia, unspecified organism (ICD-10) Malnutrition of moderate degree ?E44.0 - Moderate protein-calorie malnutrition (ICD-10) Depression ?F32.A - Depression, unspecified (ICD-10) Bronchiectasis ?J47.9 - Bronchiectasis, uncomplicated (ICD-10) Chronic respiratory failure with hypoxia ?J96.11 - Chronic respiratory failure with hypoxia (ICD-10) Upper respiratory infection ?J06.9 - Acute upper respiratory infection, unspecified (ICD-10) Acute hypokalemia ?E87.6 - Hypokalemia (ICD-10) Avulsion of skin ?T14.8XXA - Other injury of unspecified body region, initial encounter (ICD-10) Influenza ?J11.1 - Influenza due to unidentified influenza virus with other respiratory manifestations (ICD-10) Marijuana abuse ?F12.10 - Cannabis abuse, uncomplicated (ICD-10) Acute hypoxic respiratory failure ?J96.01 - Acute respiratory failure with hypoxia (ICD-10) Coronavirus infection ?B34.2 - Coronavirus infection, unspecified (ICD-10) Pneumonia ?J18.9 - Pneumonia, unspecified organism (ICD-10) Hospital-acquired bacterial pneumonia ?J15.9 - Unspecified bacterial pneumonia (ICD-10) COVID-19 ?U07.1 - COVID-19 (ICD-10) GERD (gastroesophageal reflux disease) ?K21.9 - Gastro-esophageal reflux disease without esophagitis (ICD-10) 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34 - 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) History of gastrostomy tube placement 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 (ICD-10) Pneumonia ?J18.9 - Pneumonia, unspecified organism (ICD-10) Abdominal pain ?R10.9 - Unspecified abdominal pain (ICD-10) Abdominal pain, acute ?R10.9 - Unspecified abdominal pain (ICD-10) Surgical History History of fundoplication ?Z98.890 - Other specified postprocedural states (ICD-10) History of appendectomy ?Z90.49 - Acquired absence of other specified parts of digestive tract (ICD-10) H/O chest tube placement ?Z98.890 - Other specified postprocedural states (ICD-10) History of facial surgery ?Z98.890 - Other specified postprocedural states (ICD-10) Family History Mother Family history of diabetes mellitus Family history of hypertension Grandmother Family history of diabetes mellitus Grandfather Family history of myocardial infarction Social History Within the past year, how often did you have a drink containing alcohol: 2-4 times a month Within the past year, how many standard drinks containing alcohol did you have on a typical day: 1 or 2 Within the past year, how often did you have six or more drinks on one occasion: weekly Total score: 3 Score interpretation: A score of 4 or more indicates drinking is likely to affect patient's safety. Smoking status: Current every day smoker Nicotine containing products detail: vaping Non-prescribed substance use: cannabis (any form) Previous occupational history: [employer] Known occupational exposures/hazards: No Highest level of school completed/degree received: Associate degree: occupational, technical, vocational program Are you now , , , , never or living with a partner: In a typical week, how many times do you talk on the telephone with family, friends, or neighbors: 3 or more times per week How often do you get together with friends or relatives: once per week How often do you attend voodoo or gnosticism services: never Do you belong to any clubs or organizations such as voodoo groups unions, fraternal or athletic groups, or school groups: no Total score: 1 Score interpretation: A score of less than or equal to 1 indicates the most socially isolated. Little interest or pleasure in doing things: not at all Feeling down, depressed, or hopeless: not at all Feel stressed/tense/nervous/anxious/difficulty sleeping: not at all Do you think of yourself as: straight/heterosexual Gender Identity: male Exam Narrative Exam Narrative: Nurses note and vital signs reviewed and patient is not hypoxic. General: The patient appears uncomfortable. From time to time he winces and holds his breath. Skin: Warm, dry, no pallor noted. There is no rash noted. Head: Normocephalic, atraumatic Eye: Normal conjunctiva, no drainage Ears, Nose, Mouth, and Throat: oral mucosa is moist. Nares patent. Cardiovascular: Regular Rate and Rhythm Respiratory: Patient is in no distress, breath sounds are equal bilaterally. Chest wall has no crepitus bruise or abrasion. He has diffuse tenderness through the sternum and the proximal rib areas bilaterally. Back: non-tender GI: Soft and nontender Musculoskeletal: Extremity joints all have full range of motion. Neurological: A&O, normal speech Psychiatric: Cooperative Constitutional Vital Signs, click to edit/add: Last Vital Signs Temp 98.9 F 07/03/24 06:14 Pulse 100 H 07/03/24 06:20 Resp 23 H 07/03/24 06:20 BP 107/71 07/03/24 06:15 Pulse Ox 95 07/03/24 06:20 O2 Del Method Room Air 07/03/24 06:14 Course Vital Signs Vital signs: Vital Signs Temperature 98.9 F 07/03/24 06:14 Pulse Rate 101 H 07/03/24 06:14 Respiratory Rate 20 07/03/24 06:14 Blood Pressure 107/71 07/03/24 06:14 Pulse Oximetry 94 L 07/03/24 06:14 Oxygen Delivery Method Room Air 07/03/24 06:14 Temperature 98.9 F 07/03/24 06:14 Pulse Rate 100 H 07/03/24 06:20 Respiratory Rate 23 H 07/03/24 06:20 Blood Pressure 107/71 07/03/24 06:15 Pulse Oximetry 95 07/03/24 06:20 Oxygen Delivery Method Room Air 07/03/24 06:14 Medical Decision Making MDM Narrative Medical decision making narrative: X-rays are ordered and the patient is signed out to Dr. Sánchez at change of shift. Differential Diagnosis Differential Diagnosis: Contusion, fracture, pneumothorax Discharge Plan Discharge Chief Complaint: Chest Pain Clinical Impression: Chest wall contusion Patient Disposition: Still a Patient Prescriptions / Home Meds: No Action trazodone 50 mg tablet 50 mg PO BEDTIME PRN (Reason: sleep) albuterol sulfate 90 mcg/actuation HFA aerosol inhaler 1 inh inhalation Q4H PRN (Reason: shortness of breath or wheezing) Qty: 8.5 0RF albuterol sulfate 2.5 mg /3 mL (0.083 %) solution for nebulization 2.5 mg inhalation Q6H PRN (Reason: shortness of breath or wheezing) Qty: 75 0RF sucralfate 1 gram tablet 1 g PO .TIDAC omeprazole 40 mg capsule,delayed release(DR/EC) 40 mg PO .BIDAC Print Language: Maltese Referrals: REBEKAH BARBOZA [Primary Care Provider] - 1 week
[2024-07-03] MEDS: KETOROLAC TROMETHAMINE 30 MG/ML VIAL IVP (06:47)
--- NOTE | 2024-07-03 07:12 | XR_ITS ---
The [address] [address] Patient Name: FRANCIS GALVEZ MRN: [id number] date: 1990 Sex: M Assigned Patient Location: ED.MAIN Current Patient Location: ER Accession/Order Number: [id number] Exam Date: 07/03/2024 07:02 Report Date: 07/03/2024 07:45 At the request of: MARK NIETO Procedure: XR ribs BI min 4V w CXR1V EXAM: XR ribs BI min 4V w CXR1V HISTORY: fall COMPARISON: Chest radiograph dated 05/22/2024, CTA chest dated 05/13/2024 and CTA pulmonary arteries dated 09/06/2017. TECHNIQUE: Frontal view of the chest and 3 additional views of the bilateral ribs performed. FINDINGS: The trachea is midline. The heart size is normal. Stable opacities at both hilar regions and the medial aspect of the bilateral lower chest corresponding to chronic consolidation and bronchiectasis on the previous CTA examination the chest. There is mild pleural reaction at both lateral costophrenic angles. There is no pulmonary vascular congestion. There is a known 1.5 cm noncalcified left lower lobe nodule which is not significantly changed compared to the CTA pulmonary artery examination dated 09/06/2017. There is slight dextroscoliosis of the thoracic spine. 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 There is no acute displaced rib fracture. There is no pneumothorax. XR/XR ribs BI min 4V w CXR1V IMPRESSION: There is no acute displaced rib fracture. There is no pneumothorax. Stable opacities at both hilar regions and the medial aspect of the bilateral lower chest corresponding to chronic consolidation and bronchiectasis on the previous CTA examination of the chest. There is a known 1.5 cm noncalcified left lower lobe nodule which is not significantly changed compared to the CTA pulmonary artery examination dated 09/06/2017 Electronically authenticated by: JILLIAN MORALES Date: 07/03/2024 07:45
--- NOTE | 2024-07-03 07:12 | XR_ITS ---
The [address] [address] Patient Name: FRANCIS GALVEZ MRN: [id number] date: 1990 Sex: M Assigned Patient Location: ED.MAIN Current Patient Location: ER Accession/Order Number: [id number] Exam Date: 07/03/2024 07:02 Report Date: 07/03/2024 07:37 At the request of: MARK NIETO Procedure: XR sternum min 2V EXAM: XR sternum min 2V HISTORY: fall COMPARISON: None. XR/XR sternum min 2V IMPRESSION: 1. No displaced sternal fracture. Electronically authenticated by: JOSHUA AARON Date: 07/03/2024 07:37
[2024-07-03] MEDS: HYDROCODONE/ACET 5-325 MG TABLET 1 TAB PO (08:07)
== END 2024-07-03 08:18 | disposition home or self-care (01) ==
PROVIDERS: Emergency Provider Emergency Medicine; PCP Nurse Practitioner Family
DX: S20.219A Contusion of unspecified front wall of thorax, initial encounter (principal); W00.0XXA Fall on same level due to ice and snow, initial encounter; Z90.49 Acquired absence of other specified parts of digestive tract; F17.290 Nicotine dependence, other tobacco product, uncomplicated
CPT/HCPCS: 71111; 71120; 93005; 99284; J1885

== ENCOUNTER 2024-08-03 20:41 | Emergency (ER) | payer MEDICARE, SELFPAY ==
[2024-08-03 20:46] VITALS: BP 110/70; PULSE 126; TEMP 38.1; BMI 21.8
[2024-08-03 21:10] LABS: Influenza Virus A Antigen Negative; Influenza Virus B Antigen Negative; Internal Control Within Normal Limits; SARS-CoV-2 Ag NEGATIVE (NEGATIVE)
[2024-08-03 22:15] VITALS: PULSE 112; O2SAT 91
[2024-08-03] MEDS: ACETAMINOPHEN 500 MG TABLET PO (22:29)
[2024-08-03] MEDS: IPRATROPIUM/ALBUTEROL SULFATE 3 ML AMPUL.NEB IH (22:39)
[2024-08-03 22:40] VITALS: PULSE 114; O2SAT 92
--- NOTE | 2024-08-03 22:40 | ED_ITS ---
HPI HPI - General Adult General Chief complaint: Upper Respiratory Infection Stated complaint: VOMITING, CHILLS, MAY HAVE A FEVER, SOB Time Seen by Provider: 08/03/24 22:17 Mode of arrival: walk-in History of Present Illness HPI narrative: Patient is a 33-year-old male who is presenting to the ER with 2 days of flulike symptoms. Patient is having cough, congestion, and nausea and vomiting throughout today. Patient is a smoker, has not smoked in 1 to 2 weeks. Patient does have a PCP and Neetu Enriquez. Patient also has a boiler room operator with Dr. Fuller and also Dr. Mac. Patient friend is at bedside. Patient did have a fever when he arrived. Patient has been using his albuterol inhaler through the day. Patient has no chest pain, mild shortness of breath. Positive dry cough, positive congestion. Patient initially arrived with a temperature and a heart rate in the 120s. Patient's heart rate was rechecked, it was 112 after waiting 1.5 hours of being in the waiting room. Patient was not waiting room for length of stay secondary to ER volume All systems are negative except as noted/marked. All systems reviewed and otherwise negative. Nurses note and vital signs reviewed and patient is not hypoxic. General: The patient appears well and in no apparent distress. Patient is resting comfortably on cart. Patient is not toxic, lethargic, or listless Skin: Warm, dry, no pallor noted. There is no rash noted. No petechiae, purpura. Head: Normocephalic, atraumatic; patient has no midline or paracervical tenderness palpation. Full range of motion of cervical spine no difficulty. No meningeal signs or symptoms. Eye: Normal conjunctiva, no drainage, EOMI. PERRL Ears, Nose, Mouth, and Throat: oral mucosa is moist. Nares patent. Mouth without vesicles. Cardiovascular: Regular Rate and Rhythm, no murmur, gallop, rub Respiratory: Patient is in no distress, no accessory muscle use, lungs have slight decreased breath sounds bilateral, faint wheezing diffusely, no rhonchi crackles or rales bilateral. Back: non-tender, no CVA tenderness bilaterally to percussion. No CT LS midline pain GI: no tenderness to palpation, no masses appreciated. No rebound, guarding, or rigidity noted. No distention/no peritoneal signs, no flank pain bilateral. Musculoskeletal: Patient has full range of motion of all of the extremities, no motor, sensory, or focal neurological deficits Neurological: A&O x4, normal speech Psychiatric: Cooperative Related Data Home Medications ?Medication ?Instructions ?Recorded ?Confirmed trazodone 50 mg tablet 50 mg PO BEDTIME PRN sleep 09/13/23 07/03/24 sucralfate 1 gram tablet 1 g PO .TIDAC 05/08/24 07/03/24 omeprazole 40 mg capsule,delayed 40 mg PO .BIDAC 05/13/24 07/03/24 release Previous Rx's ?Medication ?Instructions ?Recorded albuterol sulfate 2.5 mg/3 mL 2.5 mg (3 mL) inhalation Q6H PRN 05/25/23 (0.083 %) solution for nebulization shortness of breath or wheezing #75 mL albuterol sulfate 90 mcg/actuation 1 inh inhalation Q4H PRN shortness 03/22/24 aerosol inhaler of breath or wheezing #8.5 grams hydrocodone 5 mg-acetaminophen 325 1 tab PO Q6H PRN pain #10 tabs 07/03/24 mg tablet ondansetron 4 mg disintegrating 4 mg PO Q4H PRN nausea and 08/03/24 tablet vomiting 3 days #6 tabs Allergies Allergy/AdvReac Type Severity Reaction Status Date / Time Penicillins Allergy Intermediate Hives Verified 07/03/24 06:22 Opioid HPI Opioid Management Most Recent Opioid Data: Last Pain Scale 8 07/03/24 08:07 07/03/24 Last ORT Total Score 14 05/13/24 10:19 05/13/24 Last ORT Risk Category High Risk 05/13/24 10:19 05/13/24 [facility] Medical History (Updated 08/03/24 @ 22:38 by Don Owens MD) Insomnia ?G47.00 - Insomnia, unspecified (ICD-10) Hypernatremia ?E87.0 - Hyperosmolality and hypernatremia (ICD-10) Right lower lobe pneumonia ?J18.9 - Pneumonia, unspecified organism (ICD-10) Lactic acidosis ?E87.20 - Acidosis, unspecified (ICD-10) Chronic hypoxic respiratory failure, on home oxygen therapy ?J96.11 - Chronic respiratory failure with hypoxia (ICD-10) ?Z99.81 - Dependence on supplemental oxygen (ICD-10) Asthma exacerbation ?J45.901 - Unspecified asthma with (acute) exacerbation (ICD-10) Pneumonia ?J18.9 - Pneumonia, unspecified organism (ICD-10) Upper respiratory infection ?J06.9 - Acute upper respiratory infection, unspecified (ICD-10) Anxiety ?F41.9 - Anxiety disorder, unspecified (ICD-10) Esophagitis with gastritis ?K29.70 - Gastritis, unspecified, without bleeding (ICD-10) ?K20.90 - Esophagitis, unspecified without bleeding (ICD-10) Leukocytosis ?D72.829 - Elevated white blood cell count, unspecified (ICD-10) Dyspnea ?R06.00 - Dyspnea, unspecified (ICD-10) Hypoxia ?R09.02 - Hypoxemia (ICD-10) Bronchiectasis with acute exacerbation ?J47.1 - Bronchiectasis with (acute) exacerbation (ICD-10) Depression with anxiety ?F41.8 - Other specified anxiety disorders (ICD-10) Pneumonia ?J18.9 - Pneumonia, unspecified organism (ICD-10) Bronchiectasis with acute lower respiratory infection ?J47.0 - Bronchiectasis with acute lower respiratory infection (ICD-10) Steroid-induced hyperglycemia ?R73.9 - Hyperglycemia, unspecified (ICD-10) ?T38.0X5A - Adverse effect of glucocorticoids and synthetic analogues, initial encounter (ICD-10) Hyponatremia ?E87.1 - Hypo-osmolality and hyponatremia (ICD-10) Chest wall pain ?R07.89 - Other chest pain (ICD-10) Pneumonia ?J18.9 - Pneumonia, unspecified organism (ICD-10) Malnutrition of moderate degree ?E44.0 - Moderate protein-calorie malnutrition (ICD-10) Depression ?F32.A - Depression, unspecified (ICD-10) Bronchiectasis ?J47.9 - Bronchiectasis, uncomplicated (ICD-10) Chronic respiratory failure with hypoxia ?J96.11 - Chronic respiratory failure with hypoxia (ICD-10) Upper respiratory infection ?J06.9 - Acute upper respiratory infection, unspecified (ICD-10) Acute hypokalemia ?E87.6 - Hypokalemia (ICD-10) Avulsion of skin ?T14.8XXA - Other injury of unspecified body region, initial encounter (ICD- 10) Influenza ?J11.1 - Influenza due to unidentified influenza virus with other respiratory manifestations (ICD-10) Marijuana abuse ?F12.10 - Cannabis abuse, uncomplicated (ICD-10) Acute hypoxic respiratory failure ?J96.01 - Acute respiratory failure with hypoxia (ICD-10) Coronavirus infection ?B34.2 - Coronavirus infection, unspecified (ICD-10) Pneumonia ?J18.9 - Pneumonia, unspecified organism (ICD-10) Hospital-acquired bacterial pneumonia ?J15.9 - Unspecified bacterial pneumonia (ICD-10) COVID-19 ?U07.1 - COVID-19 (ICD-10) GERD (gastroesophageal reflux disease) ?K21.9 - Gastro-esophageal reflux disease without esophagitis (ICD-10) 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34 - 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) History of gastrostomy tube placement 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 (ICD-10) Pneumonia ?J18.9 - Pneumonia, unspecified organism (ICD-10) Abdominal pain ?R10.9 - Unspecified abdominal pain (ICD-10) Abdominal pain, acute ?R10.9 - Unspecified abdominal pain (ICD-10) Surgical History History of fundoplication ?Z98.890 - Other specified postprocedural states (ICD-10) History of appendectomy ?Z90.49 - Acquired absence of other specified parts of digestive tract (ICD- 10) H/O chest tube placement ?Z98.890 - Other specified postprocedural states (ICD-10) History of facial surgery ?Z98.890 - Other specified postprocedural states (ICD-10) Family History Mother Family history of diabetes mellitus Family history of hypertension Grandmother Family history of diabetes mellitus Grandfather Family history of myocardial infarction Social History Within the past year, how often did you have a drink containing alcohol: 2-4 times a month Within the past year, how many standard drinks containing alcohol did you have on a typical day: 1 or 2 Within the past year, how often did you have six or more drinks on one occasion: weekly Total score: 3 Score interpretation: A score of 4 or more indicates drinking is likely to affect patient's safety. 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 Known occupational exposures/hazards: No Highest level of school completed/degree received: Associate degree: occupational, technical, vocational program Are you now , , , , never or living with a partner: In a typical week, how many times do you talk on the telephone with family, friends, or neighbors: 3 or more times per week How often do you get together with friends or relatives: once per week How often do you attend tenriism or mandaeism services: never Do you belong to any clubs or organizations such as tenriism groups unions, fraternal or athletic groups, or school groups: no Total score: 1 Score interpretation: A score of less than or equal to 1 indicates the most socially isolated. Little interest or pleasure in doing things: not at all Feeling down, depressed, or hopeless: not at all Feel stressed/tense/nervous/anxious/difficulty sleeping: not at all Do you think of yourself as: straight/heterosexual Gender Identity: male Exam Constitutional Vital Signs, click to edit/add: Last Vital Signs Temp 100.5 F H 08/03/24 20:46 Pulse 112 H 08/03/24 22:15 Resp 18 08/03/24 22:15 BP 110/70 08/03/24 20:46 Pulse Ox 91 L 08/03/24 22:15 Course Vital Signs Vital signs: Vital Signs Temperature 100.5 F H 08/03/24 20:46 Pulse Rate 126 H 08/03/24 20:46 Respiratory Rate 18 08/03/24 20:46 Blood Pressure 110/70 08/03/24 20:46 Temperature 100.5 F H 08/03/24 20:46 Pulse Rate 112 H 08/03/24 22:15 Respiratory Rate 18 08/03/24 22:15 Blood Pressure 110/70 08/03/24 20:46 Pulse Oximetry 91 L 08/03/24 22:15 Medical Decision Making MDM Narrative Medical decision making narrative: Patient was asking for a breathing treatment. Patient was given a DuoNeb breathing treatment. Patient was also given Zofran and Tylenol. Patient was given a prescription for Zofran. 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 Patient does not work tomorrow. No question at discharge. Patient did have mild hypoxia, patient does have a boiler room operator that he will call tomorrow for further evaluation or his PCP. Lab Data Labs: Lab Results 08/03/24 Range/Units 20:51 Influenza Type A Ag Negative Influenza Type B Ag Negative SARS-CoV-2 Ag (CV2AG) Negative (NEGATIVE) Discharge Plan Discharge Stand Alone Forms: Work/School Release Chief Complaint: Upper Respiratory Infection Clinical Impression: Febrile illness, Bronchitis, Tobacco abuse, Tobacco abuse counseling, Nausea and vomiting Patient Disposition: Home, Self-Care Time of Disposition Decision: 22:35 Condition: Fair Prescriptions / Home Meds: New ondansetron 4 mg tablet,disintegrating 4 mg PO Q4H PRN (Reason: nausea and vomiting) 3 Days Qty: 6 0RF No Action trazodone 50 mg tablet 50 mg PO BEDTIME PRN (Reason: sleep) albuterol sulfate 90 mcg/actuation HFA aerosol inhaler 1 inh inhalation Q4H PRN (Reason: shortness of breath or wheezing) Qty: 8.5 0RF hydrocodone-acetaminophen 5-325 mg tablet 1 tab PO Q6H PRN (Reason: pain) Qty: 10 0RF albuterol sulfate 2.5 mg /3 mL (0.083 %) solution for nebulization 2.5 mg inhalation Q6H PRN (Reason: shortness of breath or wheezing) Qty: 75 0RF sucralfate 1 gram tablet 1 g PO .TIDAC omeprazole 40 mg capsule,delayed release(DR/EC) 40 mg PO .BIDAC Print Language: Hong Konger Instructions: How to Stop Smoking (ED), Fever in Adults (ED), Acute Bronchitis (ED), Acute Nausea and Vomiting (ED) Additional Instructions: STOP SMOKING, follow-up with your boiler room operator or PCP for additional ways to help you stop smoking Increase fluids at home, Gatorade, Powerade, or water. Alternate using DayQuil, NyQuil, and Flonase. Add Mucinex as well as needed. Alternate Tylenol and Motrin every 4 hours to help with fever control, body aches or joint pain. Use [id number] vitamin C, vitamin D3, and zinc to help fight infection and help with her immune system. Referrals: NEETU BARBOZA [Primary Care Provider] - 1 week
[2024-08-03] MEDS: ONDANSETRON 4 MG RAPDIS TABLET SL (22:55)
== END 2024-08-03 22:58 | disposition home or self-care (01) ==
PROVIDERS: Emergency Provider Emergency Medicine; PCP Nurse Practitioner Family
DX: J40 Bronchitis, not specified as acute or chronic (principal); R50.9 Fever, unspecified; R11.2 Nausea with vomiting, unspecified; Z90.49 Acquired absence of other specified parts of digestive tract; F17.290 Nicotine dependence, other tobacco product, uncomplicated
CPT/HCPCS: 71045; 87804; 87811; 94640; 99285; Q0162

== ENCOUNTER 2024-08-04 23:24 | Inpatient (IN) | payer MEDICARE, SELFPAY ==
[2024-08-04 23:30] VITALS: BP 115/65; PULSE 120; TEMP 37.9; O2SAT 90
[2024-08-04 23:33] VITALS: O2SAT 94
--- NOTE | 2024-08-04 23:33 | ED.URI1 ---
HPI - URI/Sore Throat General Chief Complaint: Upper Respiratory Infection Stated Complaint: SOB Time Seen by Provider: 08/04/24 23:27 History of Present Illness HPI Narrative: history of bronchiectasis. wears 02 at home . usually wears it at night. Here yesterday for shortness of breath and now returns. Pulse ox 86% of RA at home. Also states he had diarrhea and nausea/vomiting at home. abdomen is sore from recurrent vomiting Related Data Home Medications ?Medication ?Instructions ?Recorded ?Confirmed trazodone 50 mg tablet 50 mg PO BEDTIME PRN sleep 09/13/23 07/03/24 sucralfate 1 gram tablet 1 g PO .TIDAC 05/08/24 07/03/24 omeprazole 40 mg capsule,delayed 40 mg PO .BIDAC 05/13/24 07/03/24 release Previous Rx's ?Medication ?Instructions ?Recorded albuterol sulfate 2.5 mg/3 mL 2.5 mg (3 mL) inhalation Q6H PRN 05/25/23 (0.083 %) solution for nebulization shortness of breath or wheezing #75 mL albuterol sulfate 90 mcg/actuation 1 inh inhalation Q4H PRN shortness 03/22/24 aerosol inhaler of breath or wheezing #8.5 grams hydrocodone 5 mg-acetaminophen 325 1 tab PO Q6H PRN pain #10 tabs 07/03/24 mg tablet ondansetron 4 mg disintegrating 4 mg PO Q4H PRN nausea and 08/03/24 tablet vomiting 3 days #6 tabs Allergies Allergy/AdvReac Type Severity Reaction Status Date / Time Penicillins Allergy Intermediate Hives Verified 08/04/24 23:30 Review of Systems ROS Status of ROS 10 or more systems reviewed and unremarkable except as noted in history and below [facility] Medical History (Updated 08/05/24 @ 02:56 by Carlos Dawkins MD) Insomnia ?G47.00 - Insomnia, unspecified (ICD-10) Hypernatremia ?E87.0 - Hyperosmolality and hypernatremia (ICD-10) Right lower lobe pneumonia ?J18.9 - Pneumonia, unspecified organism (ICD-10) Lactic acidosis ?E87.20 - Acidosis, unspecified (ICD-10) Chronic hypoxic respiratory failure, on home oxygen therapy ?J96.11 - Chronic respiratory failure with hypoxia (ICD-10) ?Z99.81 - Dependence on supplemental oxygen (ICD-10) Asthma exacerbation ?J45.901 - Unspecified asthma with (acute) exacerbation (ICD-10) Pneumonia ?J18.9 - Pneumonia, unspecified organism (ICD-10) Upper respiratory infection ?J06.9 - Acute upper respiratory infection, unspecified (ICD-10) Anxiety ?F41.9 - Anxiety disorder, unspecified (ICD-10) Esophagitis with gastritis ?K29.70 - Gastritis, unspecified, without bleeding (ICD-10) ?K20.90 - Esophagitis, unspecified without bleeding (ICD-10) Leukocytosis ?D72.829 - Elevated white blood cell count, unspecified (ICD-10) Dyspnea ?R06.00 - Dyspnea, unspecified (ICD-10) Hypoxia ?R09.02 - Hypoxemia (ICD-10) Bronchiectasis with acute exacerbation ?J47.1 - Bronchiectasis with (acute) exacerbation (ICD-10) Depression with anxiety ?F41.8 - Other specified anxiety disorders (ICD-10) Pneumonia ?J18.9 - Pneumonia, unspecified organism (ICD-10) Bronchiectasis with acute lower respiratory infection ?J47.0 - Bronchiectasis with acute lower respiratory infection (ICD-10) Steroid-induced hyperglycemia ?R73.9 - Hyperglycemia, unspecified (ICD-10) ?T38.0X5A - Adverse effect of glucocorticoids and synthetic analogues, initial encounter (ICD-10) Hyponatremia ?E87.1 - Hypo-osmolality and hyponatremia (ICD-10) Chest wall pain ?R07.89 - Other chest pain (ICD-10) Pneumonia ?J18.9 - Pneumonia, unspecified organism (ICD-10) Malnutrition of moderate degree ?E44.0 - Moderate protein-calorie malnutrition (ICD-10) Depression ?F32.A - Depression, unspecified (ICD-10) Bronchiectasis ?J47.9 - Bronchiectasis, uncomplicated (ICD-10) Chronic respiratory failure with hypoxia ?J96.11 - Chronic respiratory failure with hypoxia (ICD-10) Upper respiratory infection ?J06.9 - Acute upper respiratory infection, unspecified (ICD-10) Acute hypokalemia ?E87.6 - Hypokalemia (ICD-10) Avulsion of skin ?T14.8XXA - Other injury of unspecified body region, initial encounter (ICD-10) Influenza ?J11.1 - Influenza due to unidentified influenza virus with other respiratory manifestations (ICD-10) Marijuana abuse ?F12.10 - Cannabis abuse, uncomplicated (ICD-10) Acute hypoxic respiratory failure ?J96.01 - Acute respiratory failure with hypoxia (ICD-10) Coronavirus infection ?B34.2 - Coronavirus infection, unspecified (ICD-10) Pneumonia ?J18.9 - Pneumonia, unspecified organism (ICD-10) Hospital-acquired bacterial pneumonia ?J15.9 - Unspecified bacterial pneumonia (ICD-10) COVID-19 ?U07.1 - COVID-19 (ICD-10) GERD (gastroesophageal reflux disease) ?K21.9 - Gastro-esophageal reflux disease without esophagitis (ICD-10) 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34 - 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) History of gastrostomy tube placement 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 (ICD-10) Pneumonia ?J18.9 - Pneumonia, unspecified organism (ICD-10) Abdominal pain ?R10.9 - Unspecified abdominal pain (ICD-10) Abdominal pain, acute ?R10.9 - Unspecified abdominal pain (ICD-10) Surgical History History of fundoplication ?Z98.890 - Other specified postprocedural states (ICD-10) History of appendectomy ?Z90.49 - Acquired absence of other specified parts of digestive tract (ICD-10) H/O chest tube placement ?Z98.890 - Other specified postprocedural states (ICD-10) History of facial surgery ?Z98.890 - Other specified postprocedural states (ICD-10) Family History Mother Family history of diabetes mellitus Family history of hypertension Grandmother Family history of diabetes mellitus Grandfather Family history of myocardial infarction Social History Within the past year, how often did you have a drink containing alcohol: 2-4 times a month Within the past year, how many standard drinks containing alcohol did you have on a typical day: 1 or 2 Within the past year, how often did you have six or more drinks on one occasion: weekly Total score: 3 Score interpretation: A score of 4 or more indicates drinking is likely to affect patient's safety. 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 Known occupational exposures/hazards: No Highest level of school completed/degree received: Associate degree: occupational, technical, vocational program Are you now , , , , never or living with a partner: In a typical week, how many times do you talk on the telephone with family, friends, or neighbors: 3 or more times per week How often do you get together with friends or relatives: once per week How often do you attend worship or confucianism services: never Do you belong to any clubs or organizations such as worship groups unions, fraternal or athletic groups, or school groups: no Total score: 1 Score interpretation: A score of less than or equal to 1 indicates the most socially isolated. Little interest or pleasure in doing things: not at all Feeling down, depressed, or hopeless: not at all Feel stressed/tense/nervous/anxious/difficulty sleeping: not at all Do you think of yourself as: straight/heterosexual Gender Identity: male Exam Constitutional Vital Signs, click to edit/add: Last Vital Signs Temp 100.3 F 08/04/24 23:30 Pulse 102 H 08/05/24 00:38 Resp 20 08/05/24 00:28 BP 120/78 08/05/24 00:38 Pulse Ox 93 L 08/05/24 00:38 O2 Del Method Room Air 08/05/24 00:28 Common normals: no apparent distress, oriented x3, healthy appearing, alert and well nourished [facility] Common normals: normocephalic and head/scalp atraumatic Eye Common normals: EOMs intact bilaterally and conjunctivae normal Respiratory Common normals: normal respiratory effort Effort & inspection: audible wheezes Cardio Rate: tachycardic GI Common normals: Normal to inspection, nondistended, normoactive bowel sounds present, soft to palpation and non-tender Extremity Common normals: normal to inspection and full ROM Neuro Common normals: oriented x3, CN's II-XII intact bilaterally, moves all extremities and no focal motor deficits Psych Appearance: grossly normal Course Vital Signs Vital signs: Vital Signs Temperature 100.3 F 08/04/24 23:30 Pulse Rate 120 H 08/04/24 23:30 Respiratory Rate 24 H 08/04/24 23:30 Blood Pressure 115/65 08/04/24 23:30 Pulse Oximetry 90 L 08/04/24 23:30 Oxygen Delivery Method Room Air 08/04/24 23:30 Temperature 100.3 F 08/04/24 23:30 Pulse Rate 102 H 08/05/24 00:38 Respiratory Rate 20 08/05/24 00:28 Blood Pressure 120/78 08/05/24 00:38 Pulse Oximetry 93 L 08/05/24 00:38 Oxygen Delivery Method Room Air 08/05/24 00:28 MDM - URI/Sore Throat MDM Narrative Medical decision making narrative: history of bronchiectasis. daily smoker. Has home 02. Seen yesterday and now returns complaining of shortness of breath. Tachycardic with fever 100.3. cxray with RLL pneumonia discussed with hospitalist and patient accepted for admission Lab Data Labs: Lab Results 08/04/24 Range/Units 23:49 WBC 10.7 (4.0-11.0) 10^3/uL RBC 5.23 (4.70-6.10) 10^6/uL Hgb 15.2 (14.0-18.0) g/dL Hct 44.8 (42.0-54.0) % MCV 85.7 (80.0-94.0) fL MCH 29.1 (25.9-34.0) pg MCHC 33.9 (29.9-35.2) g/dL RDW 12.9 (11.0-15.0) % Plt Count 159 (150-450) 10^3/uL MPV 11.8 (9.5-13.5) fL Neut % (Auto) 76.4 H (43.0-75.0) % Lymph % (Auto) 11.6 L (20.5-60.0) % Mccone % (Auto) 10.8 (1.7-12.0) % Eos % (Auto) 0.1 L (0.9-7.0) % Baso % (Auto) 0.9 (0.2-2.0) % Neut # (Auto) 8.2 H (1.4-6.5) 10^3/uL Lymph # (Auto) 1.3 (1.2-3.8) 10^3/uL Mccone # (Auto) 1.2 H (0.3-0.8) 10^3/uL Eos # (Auto) 0.0 (0.0-0.7) 10^3/uL Baso # (Auto) 0.1 (0.0-0.1) 10^3/uL Abs Immat Gran (auto) 0.02 (0.00-0.03) 10^3/uL Imm/Tot Granulo (auto) 0.2 (0.0-0.5) % Sodium 136 (136-145) mmol/L Potassium 4.4 (3.5-5.1) mmol/L Chloride 101 (98-107) mmol/L Carbon Dioxide 26.5 (21.0-32.0) mmol/L Anion Gap 12.9 BUN 9.0 (7.0-18.0) mg/dL Creatinine 1.09 (0.70-1.30) mg/dL Est GFR ( Amer) >60 (>=60 mL/min/1.73m^2) Est GFR (Non-Af Amer) >60 (>=60 mL/min/1.73m^2) BUN/Creatinine Ratio 8.3 Glucose 103 (74-106) mg/dL Lactate 0.9 (0.4-2.0) mmol/L Calcium 8.9 (8.5-10.1) mg/dL Troponin I High Sens 4.3 (4.0-76.1) pg/mL Discharge Plan Discharge Chief Complaint: Upper Respiratory Infection Clinical Impression: Pneumonia Patient Disposition: Admitted as Observation
[2024-08-04] MEDS: 0.9 % SODIUM CHLORIDE 1,000 ML 999 ML IV (23:56)
[2024-08-04] MEDS: METHYLPREDNISOLONE SOD SUCC PF 125 MG/2 ML VIAL IVP (23:56)
[2024-08-04 23:57] LABS: Basophils Absolute Auto 0.1 10^3/uL (0.0-0.1); Basophils Percent Auto 0.9 % (0.2-2.0); Eosinophils Percent Auto 0.1 % (0.9-7.0); Hematocrit 44.8 % (42.0-54.0); Hemoglobin 15.2 g/dL (14.0-18.0); Immature Granulocytes Abs Auto 0.02 10^3/uL (0.00-0.03); Immature Granulocytes Pct Auto 0.2 % (0.0-0.5); Lymphocytes Absolute Auto 1.3 10^3/uL (1.2-3.8); Lymphocytes Percent Auto 11.6 % (20.5-60.0); Mean Corpuscular HGB Conc 33.9 g/dL (29.9-35.2); Mean Corpuscular Hemoglobin 29.1 pg (25.9-34.0); Mean Corpuscular Volume 85.7 fL (80.0-94.0); Mean Platelet Volume 11.8 fL (9.5-13.5); Monocytes Absolute Auto 1.2 10^3/uL (0.3-0.8); Monocytes Percent Auto 10.8 % (1.7-12.0); Neutrophils Absolute Auto 8.2 10^3/uL (1.4-6.5); Neutrophils Percent Auto 76.4 % (43.0-75.0); Platelet Count 159 10^3/uL (150-450); Red Blood Count 5.23 10^6/uL (4.70-6.10); Red Cell Distribution Width 12.9 % (11.0-15.0); White Blood Count 10.7 10^3/uL (4.0-11.0)
[2024-08-05] VITALS (17 sets, daily range): BP systolic 98–126; BP diastolic 56–78; PULSE 98–114; TEMP 36.6–37.3; O2SAT 91–96; BMI 21.2
[2024-08-05 00:17] LABS: Lactate/Lactic Acid 0.9 mmol/L (0.4-2.0)
[2024-08-05 00:22] LABS: Anion Gap 12.9; BUN Creatinine Ratio 8.3; Calcium 8.9 mg/dL (8.5-10.1); Carbon Dioxide 26.5 mmol/L (21.0-32.0); Chloride 101 mmol/L (98-107); Estimated GFR (African America >60 (>=60 mL/min/1.73m^2); Estimated GFR (Non-African Ame >60 (>=60 mL/min/1.73m^2); Glucose 103 mg/dL (74-106); Potassium 4.4 mmol/L (3.5-5.1); Sodium 136 mmol/L (136-145); Troponin I High Sensitivity 4.3 pg/mL (4.0-76.1)
[2024-08-05] MEDS: IPRATROPIUM/ALBUTEROL SULFATE 3 ML AMPUL.NEB IH ×5 (00:26→23:14)
--- NOTE | 2024-08-05 02:43 | PC.NURSE ---
CXR results received. notified.
[2024-08-05] MEDS: LEVOFLOXACIN IN DEXTROSE 5 % 750 MG/150 ML PREMIX 100 MG IV (03:14)
--- NOTE | 2024-08-05 03:24 | PC.NURSE ---
BC x 2 sets drawn and sent. Pt tolerated this well. Snacks given.
[2024-08-05 05:52] LABS: Basophils Percent Auto 0.5 % (0.2-2.0); Eosinophils Percent Auto 0.5 % (0.9-7.0); Hematocrit 42.4 % (42.0-54.0); Hemoglobin 14.5 g/dL (14.0-18.0); Immature Granulocytes Abs Auto 0.02 10^3/uL (0.00-0.03); Immature Granulocytes Pct Auto 0.2 % (0.0-0.5); Lymphocytes Absolute Auto 0.4 10^3/uL (1.2-3.8); Lymphocytes Percent Auto 4.1 % (20.5-60.0); Mean Corpuscular HGB Conc 34.2 g/dL (29.9-35.2); Mean Corpuscular Hemoglobin 29.4 pg (25.9-34.0); Mean Corpuscular Volume 85.8 fL (80.0-94.0); Mean Platelet Volume 11.4 fL (9.5-13.5); Monocytes Absolute Auto 0.1 10^3/uL (0.3-0.8); Neutrophils Percent Auto 93.7 % (43.0-75.0); Platelet Count 230 10^3/uL (150-450); Red Blood Count 4.94 10^6/uL (4.70-6.10); White Blood Count 8.6 10^3/uL (4.0-11.0)
[2024-08-05 06:04] LABS: Influenza Virus A Antigen Negative; Influenza Virus B Antigen Negative; Internal Control Within Normal Limits; SARS-CoV-2 Ag NEGATIVE (NEGATIVE)
[2024-08-05 06:17] LABS: Alanine Aminotransferase 8 U/L (16-63); Albumin Level 3.4 g/dL (3.4-5.0); Alkaline Phosphatase 117 U/L (46-116); Anion Gap 15.2; Aspartate Amino Transferase 13 U/L (15-37); BUN Creatinine Ratio 6.6; Bilirubin Total 0.4 mg/dL (0.2-1.0); Calcium 8.8 mg/dL (8.5-10.1); Carbon Dioxide 25.1 mmol/L (21.0-32.0); Chloride 101 mmol/L (98-107); Estimated GFR (African America >60 (>=60 mL/min/1.73m^2); Estimated GFR (Non-African Ame >60 (>=60 mL/min/1.73m^2); Globulin 3.4 g/dL; Glucose 266 mg/dL (74-106); Magnesium 1.9 mg/dL (1.8-2.4); Potassium 4.3 mmol/L (3.5-5.1); Sodium 137 mmol/L (136-145); Total Protein 6.8 g/dL (6.4-8.2)
--- NOTE | 2024-08-05 07:35 | P.HP_ITS ---
HPI H&P: HPI History of Present Illness Chief complaint: PNEUMONIA Narrative: Patient was seen and evaluated in the emergency room prior to coming in, sent home with treatments, breathing got worse, cough got worse, squad was called and he had O2 sat of 85% and that was on room air, he does not wear supplemental oxygen during the day only at at bedtime secondary to bronchiectasis. In ER found to have change in his chest x-ray from the previous day and now with right lower lobe pneumonia in addition to his bronchiectasis. Fever overnight, tachycardic, patient mated for workup and treatment of same When I saw patient up in medical surgical floor, mild to moderate respiratory distress with cough throughout the evaluation Opioid HPI Opioid Management Most Recent Pain and Opioid Data: Last Pain Scale 0 08/05/24 07:50 08/05/24 Last Pain Assessment 08/05/24 07:50 Last ORT Total Score 0 08/05/24 04:44 08/05/24 Last ORT Risk Category Low Risk 08/05/24 04:44 08/05/24 PFSH PFS Medical History (Updated 08/05/24 @ 06:23 by Mariely Mackay) Insomnia ?G47.00 - Insomnia, unspecified (ICD-10) Hypernatremia ?E87.0 - Hyperosmolality and hypernatremia (ICD-10) Right lower lobe pneumonia ?J18.9 - Pneumonia, unspecified organism (ICD-10) Lactic acidosis ?E87.20 - Acidosis, unspecified (ICD-10) Chronic hypoxic respiratory failure, on home oxygen therapy ?J96.11 - Chronic respiratory failure with hypoxia (ICD-10) ?Z99.81 - Dependence on supplemental oxygen (ICD-10) Asthma exacerbation ?J45.901 - Unspecified asthma with (acute) exacerbation (ICD-10) Upper respiratory infection ?J06.9 - Acute upper respiratory infection, unspecified (ICD-10) Esophagitis with gastritis ?K29.70 - Gastritis, unspecified, without bleeding (ICD-10) ?K20.90 - Esophagitis, unspecified without bleeding (ICD-10) Leukocytosis ?D72.829 - Elevated white blood cell count, unspecified (ICD-10) Dyspnea ?R06.00 - Dyspnea, unspecified (ICD-10) Hypoxia ?R09.02 - Hypoxemia (ICD-10) Bronchiectasis with acute exacerbation ?J47.1 - Bronchiectasis with (acute) exacerbation (ICD-10) Depression with anxiety ?F41.8 - Other specified anxiety disorders (ICD-10) Steroid-induced hyperglycemia ?R73.9 - Hyperglycemia, unspecified (ICD-10) ?T38.0X5A - Adverse effect of glucocorticoids and synthetic analogues, initial encounter (ICD-10) Hyponatremia ?E87.1 - Hypo-osmolality and hyponatremia (ICD-10) Chest wall pain ?R07.89 - Other chest pain (ICD-10) Pneumonia ?J18.9 - Pneumonia, unspecified organism (ICD-10) Malnutrition of moderate degree ?E44.0 - Moderate protein-calorie malnutrition (ICD-10) Depression ?F32.A - Depression, unspecified (ICD-10) Bronchiectasis ?J47.9 - Bronchiectasis, uncomplicated (ICD-10) Chronic respiratory failure with hypoxia ?J96.11 - Chronic respiratory failure with hypoxia (ICD-10) Upper respiratory infection ?J06.9 - Acute upper respiratory infection, unspecified (ICD-10) Acute hypokalemia ?E87.6 - Hypokalemia (ICD-10) Avulsion of skin ?T14.8XXA - Other injury of unspecified body region, initial encounter (ICD- 10) Influenza ?J11.1 - Influenza due to unidentified influenza virus with other respiratory manifestations (ICD-10) Marijuana abuse ?F12.10 - Cannabis abuse, uncomplicated (ICD-10) Acute hypoxic respiratory failure ?J96.01 - Acute respiratory failure with hypoxia (ICD-10) Coronavirus infection ?B34.2 - Coronavirus infection, unspecified (ICD-10) Pneumonia ?J18.9 - Pneumonia, unspecified organism (ICD-10) Hospital-acquired bacterial pneumonia ?J15.9 - Unspecified bacterial pneumonia (ICD-10) COVID-19 ?U07.1 - COVID-19 (ICD-10) GERD (gastroesophageal reflux disease) ?K21.9 - Gastro-esophageal reflux disease without esophagitis (ICD-10) 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 - Pyothorax with fistula (ICD-10) Shortness of breath ?R06.02 - Shortness of breath (ICD-10) Chronic dyspnea ?R06.09 - Other forms of dyspnea (ICD-10) Viral infection ?B34.9 - Viral infection, unspecified (ICD-10) Hypoxia ?R09.02 - Hypoxemia (ICD-10) Acute asthma exacerbation ?J45.901 - Unspecified asthma with (acute) exacerbation (ICD-10) Bronchitis ?J40 - Bronchitis, not specified as acute or chronic (ICD-10) History of home oxygen therapy ?Z99.81 - Dependence on supplemental oxygen (ICD-10) Oxygen desaturation during sleep ?G47.34 - 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) History of gastrostomy tube placement Abdominal pain, acute ?R10.9 - Unspecified abdominal pain (ICD-10) Surgical History History of fundoplication ?Z98.890 - Other specified postprocedural states (ICD-10) History of appendectomy ?Z90.49 - Acquired absence of other specified parts of digestive tract (ICD- 10) H/O chest tube placement ?Z98.890 - Other specified postprocedural states (ICD-10) History of facial surgery ?Z98.890 - Other specified postprocedural states (ICD-10) Family History Mother Family history of diabetes mellitus Family history of hypertension Grandmother Family history of diabetes mellitus Grandfather Family history of myocardial infarction Social History (Updated 08/05/24 @ 04:58 by Mariely Mackay) Within the past year, how often did you have a drink containing alcohol: monthly or less Within the past year, how many standard drinks containing alcohol did you have on a typical day: 1 or 2 Within the past year, how often did you have six or more drinks on one occasion: less than monthly Total score: 1 Score interpretation: A score less than 4 is consistent with normal alcohol consumption. 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 [employer] Known occupational exposures/hazards: No Highest level of school completed/degree received: high school graduate Are you now , , , , never or living with a partner: In a typical week, how many times do you talk on the telephone with family, friends, or neighbors: 3 or more times per week How often do you get together with friends or relatives: once per week How often do you attend jehovah's witness or restorationism services: never Do you belong to any clubs or organizations such as jehovah's witness groups unions, fraternal or athletic groups, or school groups: no Total score: 1 Score interpretation: A score of less than or equal to 1 indicates the most socially isolated. Little interest or pleasure in doing things: not at all Feeling down, depressed, or hopeless: not at all Feel stressed/tense/nervous/anxious/difficulty sleeping: not at all Do you think of yourself as: straight/heterosexual Gender Identity: male Meds Home Medications and Allergies Home Medications ?Medication ?Instructions ?Recorded ?Confirmed ?Type albuterol sulfate 2.5 mg/3 mL 2.5 mg (3 mL) inhalation Q6H PRN 05/25/23 08/05/24 Rx (0.083 %) solution for nebulization shortness of breath or wheezing #75 mL trazodone 50 mg tablet 50 mg PO BEDTIME PRN sleep 09/13/23 08/05/24 History albuterol sulfate 90 mcg/actuation 1 inh inhalation Q4H PRN shortness 03/22/24 08/05/24 Rx aerosol inhaler of breath or wheezing #8.5 grams omeprazole 40 mg capsule,delayed 40 mg PO .BIDAC 05/13/24 08/05/24 History release ondansetron 4 mg disintegrating 4 mg PO Q4H PRN nausea and 08/03/24 08/05/24 Rx tablet vomiting 3 days #6 tabs Allergies Allergy/AdvReac Type Severity Reaction Status Date / Time Penicillins Allergy Intermediate Hives Verified 08/04/24 23:30 Exam Constitutional Vital Signs, click to edit/add: Last Vital Signs Temp 98.8 F 08/05/24 04:46 Pulse 107 H 08/05/24 04:46 Resp 20 08/05/24 04:46 BP 126/73 08/05/24 04:46 Pulse Ox 92 L 08/05/24 04:46 O2 Del Method Nasal Cannula 08/05/24 04:46 O2 Flow Rate 3 08/05/24 04:46 Documenting provider has reviewed patient's vital signs: yes Common normals: apparent distress (Mild to moderate respiratory distress) Respiratory Common normals: abnormal respiratory effort (Mild to moderate respiratory distress) Auscultation: rhonchi and wheezes Cardio Common normals: regular rate and regular rhythm Results Labs Labs: Short CBC 08/04/24 08/05/24 Range/Units 23:49 05:43 WBC 10.7 8.6 (4.0-11.0) 10^3/uL Hgb 15.2 14.5 (14.0-18.0) g/dL Hct 44.8 42.4 (42.0-54.0) % Plt Count 159 230 (150-450) 10^3/uL BMP 08/04/24 08/05/24 23:49 05:43 Sodium 136 137 Potassium 4.4 4.3 Chloride 101 101 Carbon Dioxide 26.5 25.1 BUN 9.0 8.0 Creatinine 1.09 1.21 Glucose 103 266 H Calcium 8.9 8.8 Liver Function 08/05/24 Range/Units 05:43 Total Bilirubin 0.4 (0.2-1.0) mg/dL AST 13 L (15-37) U/L ALT 8 L (16-63) U/L Alkaline Phosphatase 117 H (46-116) U/L Albumin 3.4 (3.4-5.0) g/dL Assessment and Plan Assessment and Plan (1) Pneumonia: (2) Insomnia: Qualifiers: Insomnia type: primary Qualified Code(s): F51.01 - Primary insomnia (3) Right lower lobe pneumonia: (4) Bronchiectasis with acute exacerbation: Plan Admission findings: O2 sat of 85% on room air, again patient does not wear supplemental oxygen during the day, sinus tachycardia, fever to 100.5, white blood cell count normal with left shift consistent with bacterial process secondary to right lower lobe pneumonia Right lower lobe pneumonia complicating acute exacerbation of bronchiectasis- vest treatments, aerosols, steroids, IV antibiotics, try to obtain sputum culture, blood cultures pending Hyperglycemia secondary to steroids-hold keep regular diet for now, and insulin sliding scale GERD-continue with home medications Insomnia-continue with home medications Admission status: Patient placed observation overnight, no improvement, in fact now he has fever, medically necessary treatment will span 2 midnights. Inpatient status.
[2024-08-05] MEDS: ALBUTEROL SULFATE 2.5 MG/3 ML VIAL NEB IH (08:05)
--- NOTE | 2024-08-05 09:06 | PC.NURSE ---
Entered room Patient is awake. Aox4 vitals obtained @ 0743 BP 104/66, P100, RR 20, o2 91%, is on 3L NC. Pt C/o SOB. Lungs auscultated Bilateral wheezing on inspiration and expiration. Last BM 08/04/24 diarrhea. albuterol treatment giv @ 0800 lungs assessed after Bilateral wheeze still present. o2 @ 93% post treatment [id number] RR 20.
[2024-08-05] MEDS: BENZONATATE 100 MG CAPSULE 200 MG PO ×2 (09:49→17:16)
[2024-08-05] MEDS: METHYLPREDNISOLONE SOD SUCC PF 125 MG/2 ML VIAL 60 MG IVP ×3 (09:49→21:21)
[2024-08-05] MEDS: CEFTRIAXONE 1,000 MG in 0.9 % SODIUM CHLORIDE 50 ML 100 MG IV (09:53)
--- NOTE | 2024-08-05 09:53 | SWNOTE1 ---
JAY called [facility] and they stated the script was last renewed in August of 2023 and it is for 3 liters of oxygen with exertion. SW did ask about night time? She stated it does not state anything about night, just 3 liters of oxygen with exertion. JAY updated nurse and doctor.
[2024-08-05 10:54] LABS: Glucometer 147 mg/dL (74-106)
--- NOTE | 2024-08-05 10:57 | SWNOTE1 ---
SW met with pt to discuss dc needs. Pt wears 3 liters with exertion from [employer]. Pt voiced he is doing well at home. He now works at [employer] in [facility]. Pt did voiced he is waiting on [place] Dept of Medicaid to approve his Medicaid, but he has to send a form in. Pt voiced no discharge concerns at this time. SW to follow as needed.
--- NOTE | 2024-08-05 10:59 | SWNOTE1 ---
Important Message from [employer] reviewed and discussed with patient. Pt. verbalized understanding and signed the form. Original given to patient and copy placed in patient?s chart.
[2024-08-05] MEDS: INSULIN ASPART 300 UNIT/3 ML PEN SUBQ ×3 (12:02→21:21)
[2024-08-05 16:48] LABS: Glucometer 238 mg/dL (74-106)
[2024-08-05] MEDS: TRAZODONE HCL 50 MG TABLET PO (21:21)
[2024-08-05 21:22] LABS: Glucometer 274 mg/dL (74-106)
[2024-08-06] VITALS (14 sets, daily range): BP systolic 102–122; BP diastolic 53–74; PULSE 94–123; TEMP 36.3–36.8; O2SAT 91–95
[2024-08-06] MEDS: IPRATROPIUM/ALBUTEROL SULFATE 3 ML AMPUL.NEB IH ×2 (03:47→07:39)
[2024-08-06] MEDS: METHYLPREDNISOLONE SOD SUCC PF 125 MG/2 ML VIAL 60 MG IVP ×4 (03:54→21:03)
[2024-08-06 05:47] LABS: Basophils Percent Auto 0.1 % (0.2-2.0); Eosinophils Percent Auto 0.1 % (0.9-7.0); Hematocrit 40.5 % (42.0-54.0); Hemoglobin 13.6 g/dL (14.0-18.0); Immature Granulocytes Abs Auto 0.04 10^3/uL (0.00-0.03); Immature Granulocytes Pct Auto 0.4 % (0.0-0.5); Lymphocytes Absolute Auto 0.5 10^3/uL (1.2-3.8); Lymphocytes Percent Auto 4.6 % (20.5-60.0); Mean Corpuscular HGB Conc 33.6 g/dL (29.9-35.2); Mean Corpuscular Volume 86.4 fL (80.0-94.0); Mean Platelet Volume 11.8 fL (9.5-13.5); Monocytes Absolute Auto 0.3 10^3/uL (0.3-0.8); Monocytes Percent Auto 2.9 % (1.7-12.0); Neutrophils Percent Auto 91.9 % (43.0-75.0); Platelet Count 236 10^3/uL (150-450); Red Blood Count 4.69 10^6/uL (4.70-6.10); White Blood Count 10.9 10^3/uL (4.0-11.0)
[2024-08-06 06:10] LABS: Anion Gap 14.2; BUN Creatinine Ratio 12.2; Calcium 8.7 mg/dL (8.5-10.1); Carbon Dioxide 25.9 mmol/L (21.0-32.0); Chloride 104 mmol/L (98-107); Estimated GFR (African America >60 (>=60 mL/min/1.73m^2); Estimated GFR (Non-African Ame >60 (>=60 mL/min/1.73m^2); Glucose 231 mg/dL (74-106); Potassium 4.1 mmol/L (3.5-5.1); Sodium 140 mmol/L (136-145)
[2024-08-06 07:17] LABS: Glucometer 192 mg/dL (74-106)
[2024-08-06] MEDS: INSULIN ASPART 300 UNIT/3 ML PEN SUBQ ×3 (07:27→21:04)
--- NOTE | 2024-08-06 07:44 | P.PN_ITS ---
Progress Note: Subjective Subjective Interval history: Patient still with significant dyspnea with any activity, unable to wean his supplemental oxygen, given his oxygen he only wears it at at bedtime, during the day was still requiring 3 L yesterday Exam Constitutional Vital Signs, click to edit/add: Last Vital Signs Temp 97.8 F 08/06/24 07:00 Pulse 96 H 08/06/24 07:00 Resp 16 08/06/24 07:00 BP 102/62 08/06/24 07:00 Pulse Ox 91 L 08/06/24 07:00 O2 Del Method Nasal Cannula 08/06/24 07:00 O2 Flow Rate 3 08/06/24 07:00 Documenting provider has reviewed patient's vital signs: yes Common normals: apparent distress (mild conversational dyspnea) Chest Common normals: inspection of chest normal Respiratory Common normals: abnormal respiratory effort (Mild conversational dyspnea) Auscultation: rhonchi (Worse today with increasing rhonchi and wheezes) and wheezes (Worse today with increasing rhonchi and wheezes) Cardio Common normals: regular rhythm; irregular rate Rate: tachycardic Progress Note: Objective Labs Labs: Short CBC 08/06/24 Range/Units 05:30 WBC 10.9 (4.0-11.0) 10^3/uL Hgb 13.6 L (14.0-18.0) g/dL Hct 40.5 L (42.0-54.0) % Plt Count 236 (150-450) 10^3/uL BMP 08/06/24 05:30 Sodium 140 Potassium 4.1 Chloride 104 Carbon Dioxide 25.9 BUN 12.0 Creatinine 0.98 Glucose 231 H Calcium 8.7 Progress Note: A&P Assessment and Plan (1) Pneumonia: (2) Insomnia: Qualifiers: Insomnia type: primary Qualified Code(s): F51.01 - Primary insomnia (3) Right lower lobe pneumonia: (4) Bronchiectasis with acute exacerbation: (5) Nausea and vomiting: (6) Tobacco abuse: (7) Acute hypoxic respiratory failure: (8) Steroid-induced hyperglycemia: (9) Constipation: (10) Hypoxia: Plan Admission findings: Acute hypoxia with O2 sat of 85% on room air, again patient does not wear supplemental oxygen during the day, sinus tachycardia, fever to 100.5, white blood cell count normal with left shift consistent with bacterial process secondary to right lower lobe pneumonia Acute hypoxia with right lower lobe pneumonia complicating acute exacerbation of bronchiectasis-significant dyspnea, now with tachycardia worse with aerosol treatments will change to patient to Xopenex, maintain current IV steroid dosing but add steroids aerosolized, hold off on changing antibiotics, patient not significantly improved with persistent dyspnea with any activity and persistent hypoxia with O2 sats requiring 3 L of supplemental oxygen, with some mild improvement in his conversational dyspnea but no improvement on exam maintain hospitalization 1 more day Hyperglycemia secondary to steroids-increase sliding scale today Persistent nausea vomiting on admission-improved GERD-continue with home medications Insomnia-continue with home medications Constipation-add MiraLAX Admission status: Patient failed initial observational time period, unable to discharge today secondary to worsening lung exam and persistent hypoxia, medically necessary treatment will span more than 2 midnights. Maintain inpatient status ?
[2024-08-06] MEDS: POLYETHYLENE GLYCOL 3350 17 GM POWDER PACKET PO (08:17)
[2024-08-06] MEDS: BENZONATATE 100 MG CAPSULE 200 MG PO ×2 (08:18→16:02)
[2024-08-06] MEDS: CEFTRIAXONE 1,000 MG in 0.9 % SODIUM CHLORIDE 50 ML 100 MG IV (08:27)
[2024-08-06] MEDS: LEVOFLOXACIN IN DEXTROSE 5 % 750 MG/150 ML PREMIX 100 MG IV (08:59)
[2024-08-06 11:25] LABS: Glucometer 152 mg/dL (74-106)
[2024-08-06] MEDS: IPRATROPIUM BROMIDE 0.5 MG/2.5 ML VIAL.NEB IH ×4 (11:27→23:42)
[2024-08-06] MEDS: BUDESONIDE 0.5 MG/2 ML AMPULE NEB IH ×2 (11:28→23:42)
[2024-08-06] MEDS: LEVALBUTEROL HCL 0.63 MG/3 ML VIAL.NEB IH ×4 (11:28→23:42)
[2024-08-06] MEDS: OMEPRAZOLE 40 MG CAPSULE.DR PO (15:59)
[2024-08-06 16:05] LABS: Glucometer 249 mg/dL (74-106)
[2024-08-06 19:54] LABS: Glucometer 212 mg/dL (74-106)
[2024-08-06] MEDS: TRAZODONE HCL 50 MG TABLET PO (21:03)
[2024-08-07] VITALS (17 sets, daily range): BP systolic 115–139; BP diastolic 64–81; PULSE 92–111; TEMP 36.3–37; O2SAT 82–98
[2024-08-07] MEDS: BENZONATATE 100 MG CAPSULE 200 MG PO ×3 (00:49→17:59)
[2024-08-07] MEDS: ESCITALOPRAM 10 MG TABLET PO ×2 (01:07→08:45)
[2024-08-07] MEDS: METHYLPREDNISOLONE SOD SUCC PF 125 MG/2 ML VIAL 60 MG IVP (03:06)
[2024-08-07] MEDS: IPRATROPIUM BROMIDE 0.5 MG/2.5 ML VIAL.NEB IH ×6 (03:47→23:09)
[2024-08-07] MEDS: LEVALBUTEROL HCL 0.63 MG/3 ML VIAL.NEB IH ×6 (03:47→23:09)
[2024-08-07 05:37] LABS: Basophils Percent Auto 0.1 % (0.2-2.0); Eosinophils Absolute Auto 0.1 10^3/uL (0.0-0.7); Eosinophils Percent Auto 0.4 % (0.9-7.0); Hemoglobin 13.5 g/dL (14.0-18.0); Immature Granulocytes Abs Auto 0.07 10^3/uL (0.00-0.03); Immature Granulocytes Pct Auto 0.4 % (0.0-0.5); Lymphocytes Absolute Auto 0.5 10^3/uL (1.2-3.8); Lymphocytes Percent Auto 2.8 % (20.5-60.0); Mean Corpuscular HGB Conc 32.9 g/dL (29.9-35.2); Mean Corpuscular Hemoglobin 28.7 pg (25.9-34.0); Mean Corpuscular Volume 87.2 fL (80.0-94.0); Mean Platelet Volume 11.8 fL (9.5-13.5); Monocytes Absolute Auto 0.5 10^3/uL (0.3-0.8); Monocytes Percent Auto 2.9 % (1.7-12.0); Neutrophils Absolute Auto 16.5 10^3/uL (1.4-6.5); Neutrophils Percent Auto 93.4 % (43.0-75.0); Platelet Count 269 10^3/uL (150-450); Red Cell Distribution Width 13.2 % (11.0-15.0); White Blood Count 17.6 10^3/uL (4.0-11.0)
[2024-08-07 05:44] LABS: Anion Gap 11.7; BUN Creatinine Ratio 16.7; Calcium 8.4 mg/dL (8.5-10.1); Carbon Dioxide 30.2 mmol/L (21.0-32.0); Chloride 103 mmol/L (98-107); Estimated GFR (African America >60 (>=60 mL/min/1.73m^2); Estimated GFR (Non-African Ame >60 (>=60 mL/min/1.73m^2); Glucose 214 mg/dL (74-106); Potassium 3.9 mmol/L (3.5-5.1); Sodium 141 mmol/L (136-145)
[2024-08-07 08:00] LABS: Glucometer 129 mg/dL (74-106)
--- NOTE | 2024-08-07 08:08 | P.PN_ITS ---
Progress Note: Subjective Subjective Interval history: Conversational dyspnea is improved, still having some issues with significant shortness of breath with any activity. Hypoxia despite supplemental oxygen with activity Exam Constitutional Vital Signs, click to edit/add: Last Vital Signs Temp 98.6 F 08/07/24 07:36 Pulse 92 H 08/07/24 07:36 Resp 17 08/07/24 07:36 BP 134/76 08/07/24 07:36 Pulse Ox 93 L 08/07/24 07:36 O2 Del Method Nasal Cannula 08/07/24 07:36 O2 Flow Rate 3 08/07/24 07:36 Documenting provider has reviewed patient's vital signs: yes Common normals: apparent distress (mild conversational dyspnea) Chest Common normals: inspection of chest normal Respiratory Common normals: abnormal respiratory effort (Mild conversational dyspnea improving) Auscultation: rhonchi (Better air exchange today-less rhonchi) and wheezes (Improved today) Cardio Common normals: regular rhythm; irregular rate Rate: tachycardic Progress Note: Objective Labs Labs: Short CBC 08/07/24 Range/Units 05:23 WBC 17.6 H (4.0-11.0) 10^3/uL Hgb 13.5 L (14.0-18.0) g/dL Hct 41.0 L (42.0-54.0) % Plt Count 269 (150-450) 10^3/uL BMP 08/07/24 05:23 Sodium 141 Potassium 3.9 Chloride 103 Carbon Dioxide 30.2 BUN 15.0 Creatinine 0.90 Glucose 214 H Calcium 8.4 L Progress Note: A&P Assessment and Plan (1) Pneumonia: (2) Insomnia: Qualifiers: Insomnia type: primary Qualified Code(s): F51.01 - Primary insomnia (3) Right lower lobe pneumonia: (4) Bronchiectasis with acute exacerbation: (5) Nausea and vomiting: (6) Tobacco abuse: (7) Acute hypoxic respiratory failure: (8) Steroid-induced hyperglycemia: (9) Constipation: (10) Hypoxia: Plan Admission findings: Acute hypoxia with O2 sat of 85% on room air, again patient does not wear supplemental oxygen during the day, sinus tachycardia, fever to 100.5, white blood cell count normal with left shift consistent with bacterial process secondary to right lower lobe pneumonia Acute hypoxia with right lower lobe pneumonia complicating acute exacerbation of bronchiectasis-significant dyspnea, now with tachycardia worse with aerosol treatments will change to patient to Xopenex, maintain current IV steroid dosing but add steroids aerosolized, hold off on changing antibiotics, patient not significantly improved with persistent dyspnea with any activity and persistent hypoxia with O2 sats requiring 3 L of supplemental oxygen, with just made yesterday with medication doses and frequency, patient is improved today, courtney vaughn current treatment plan, does have leukocytosis today which she did not have in the past but I think this is steroid-induced Hyperglycemia secondary to steroids-increase sliding scale today-maintain, decreasing steroids today Persistent nausea vomiting on admission-improved GERD-continue with home medications Insomnia-continue with home medications Constipation-add MiraLAX Admission status: Patient failed initial observational time period, unable to discharge today secondary to worsening lung exam and persistent hypoxia, medically necessary treatment will span more than 2 midnights. Maintain inpatient status ?
[2024-08-07] MEDS: CEFTRIAXONE 1,000 MG in 0.9 % SODIUM CHLORIDE 50 ML 100 MG IV (08:45)
[2024-08-07] MEDS: POLYETHYLENE GLYCOL 3350 17 GM POWDER PACKET PO (08:45)
[2024-08-07] MEDS: OMEPRAZOLE 40 MG CAPSULE.DR PO (08:45)
[2024-08-07] MEDS: 0.9 % SODIUM CHLORIDE 250 ML 10 ML IV (08:46)
[2024-08-07] MEDS: LEVOFLOXACIN IN DEXTROSE 5 % 750 MG/150 ML PREMIX 100 MG IV (09:39)
[2024-08-07] MEDS: BUDESONIDE 0.5 MG/2 ML AMPULE NEB IH ×2 (11:01→23:09)
[2024-08-07] MEDS: METHYLPREDNISOLONE SOD SUCC PF 125 MG/2 ML VIAL 40 MG IVP ×2 (11:29→18:00)
[2024-08-07 11:52] LABS: Glucometer 154 mg/dL (74-106)
[2024-08-07 16:15] LABS: Glucometer 226 mg/dL (74-106)
--- NOTE | 2024-08-07 16:31 | PC.NURSE ---
language instructor verifies and co-signs student nurse charting.
--- NOTE | 2024-08-07 16:32 | PC.NURSE ---
instructor bridge verifies and co-signs student nurse charting.
[2024-08-07] MEDS: INSULIN ASPART 300 UNIT/3 ML PEN SUBQ (18:00)
[2024-08-07 19:33] LABS: Glucometer 106 mg/dL (74-106)
[2024-08-07] MEDS: TRAZODONE HCL 50 MG TABLET PO (21:08)
[2024-08-08] VITALS (8 sets, daily range): BP systolic 122–128; BP diastolic 72–76; PULSE 62–100; TEMP 36.5–37.1; O2SAT 90–97
[2024-08-08] MEDS: BENZONATATE 100 MG CAPSULE 200 MG PO ×2 (00:21→08:44)
[2024-08-08] MEDS: METHYLPREDNISOLONE SOD SUCC PF 125 MG/2 ML VIAL 40 MG IVP ×2 (03:23→11:17)
[2024-08-08] MEDS: LEVALBUTEROL HCL 0.63 MG/3 ML VIAL.NEB IH ×3 (03:48→10:47)
[2024-08-08] MEDS: IPRATROPIUM BROMIDE 0.5 MG/2.5 ML VIAL.NEB IH ×3 (03:48→10:47)
[2024-08-08 06:15] LABS: Anion Gap 8.7; BUN Creatinine Ratio 18.9; Calcium 8.5 mg/dL (8.5-10.1); Carbon Dioxide 31.5 mmol/L (21.0-32.0); Chloride 105 mmol/L (98-107); Estimated GFR (African America >60 (>=60 mL/min/1.73m^2); Estimated GFR (Non-African Ame >60 (>=60 mL/min/1.73m^2); Glucose 144 mg/dL (74-106); Potassium 4.2 mmol/L (3.5-5.1); Sodium 141 mmol/L (136-145)
[2024-08-08 07:22] LABS: Glucometer 130 mg/dL (74-106)
[2024-08-08 07:24] LABS: Basophils Percent Auto 0.1 % (0.2-2.0); Eosinophils Percent Auto 0.3 % (0.9-7.0); Hematocrit 41.6 % (42.0-54.0); Hemoglobin 13.6 g/dL (14.0-18.0); Immature Granulocytes Abs Auto 0.11 10^3/uL (0.00-0.03); Immature Granulocytes Pct Auto 0.7 % (0.0-0.5); Lymphocytes Absolute Auto 0.8 10^3/uL (1.2-3.8); Lymphocytes Percent Auto 5.5 % (20.5-60.0); Mean Corpuscular HGB Conc 32.7 g/dL (29.9-35.2); Mean Corpuscular Hemoglobin 28.5 pg (25.9-34.0); Mean Corpuscular Volume 87.2 fL (80.0-94.0); Mean Platelet Volume 12.3 fL (9.5-13.5); Monocytes Absolute Auto 0.7 10^3/uL (0.3-0.8); Monocytes Percent Auto 4.7 % (1.7-12.0); Neutrophils Absolute Auto 13.5 10^3/uL (1.4-6.5); Neutrophils Percent Auto 88.7 % (43.0-75.0); Platelet Count 287 10^3/uL (150-450); Red Blood Count 4.77 10^6/uL (4.70-6.10); White Blood Count 15.2 10^3/uL (4.0-11.0)
--- NOTE | 2024-08-08 07:56 | P.DS_ITS ---
DS: Providers Provider Date of admission: 08/05/24 08:24 Primary care physician: REBEKAH BARBOZA DS: Diagnosis Discharge Diagnosis (1) Pneumonia: (2) Insomnia: Qualifiers: Insomnia type: primary Qualified Code(s): F51.01 - Primary insomnia (3) Right lower lobe pneumonia: (4) Bronchiectasis with acute exacerbation: (5) Nausea and vomiting: (6) Tobacco abuse: (7) Acute hypoxic respiratory failure: (8) Steroid-induced hyperglycemia: (9) Constipation: (10) Hypoxia: Plan Admission findings: Acute hypoxia with O2 sat of 85% on room air, again patient does not wear supplemental oxygen during the day, sinus tachycardia, fever to 100.5, white blood cell count normal with left shift consistent with bacterial process secondary to right lower lobe pneumonia Acute hypoxia with right lower lobe pneumonia complicating acute exacerbation of bronchiectasis-significant dyspnea, now with tachycardia worse with aerosol treatments will change to patient to Xopenex, maintain current IV steroid dosing but add steroids aerosolized, hold off on changing antibiotics, patient not significantly improved with persistent dyspnea with any activity and persistent hypoxia with O2 sats requiring 3 L of supplemental oxygen, with just made yesterday with medication doses and frequency, patient is improved today, maintain current treatment plan, does have leukocytosis today which she did not have in the past but I think this is steroid-induced Hyperglycemia secondary to steroids-increase sliding scale today-maintain, decreasing steroids today Persistent nausea vomiting on admission-improved GERD-continue with home medications Insomnia-continue with home medications Constipation-add MiraLAX Admission status: Patient failed initial observational time period, unable to discharge today secondary to worsening lung exam and persistent hypoxia, medically necessary treatment will span more than 2 midnights. Maintain inpatient status ? ? DS: Summary Hospital Course Hospital Course: Patient admitted with Acute hypoxia with O2 sat of 85% on room air, again patient does not wear supplemental oxygen during the day, sinus tachycardia, fever to 100.5, white blood cell count normal with left shift consistent with bacterial process secondary to right lower lobe pneumonia. Patient on IV antibiotics, steroids, frequent aerosol treatments and vest therapy, did not improve over the first 24 hours significantly with still has significant hypoxia and lung exam persistently abnormal, yesterday had a little bit better today but today is much better, still unable to wean him back down to his baseline of no oxygen at rest, only oxygen at at bedtime and with significant ambulation. But he is improved to the point that he can be discharged to home, he can maintain 1 L at home continuous and then try to wean off of that over the next few days. Medications see list. Follow-up PCP next week Time Spent with Patient Time attestation: Total time spent providing and/or coordinating discharge services: Quality: Stroke Contraindication Rehab Services Not Assessed: Procedure not indicated Exam Constitutional Vital Signs, click to edit/add: Last Vital Signs Temp 98.7 F 08/08/24 07:51 Pulse 86 08/08/24 07:51 Resp 16 08/08/24 07:51 BP 122/74 08/08/24 07:51 Pulse Ox 90 L 08/08/24 07:51 O2 Del Method Room Air 08/08/24 07:51 O2 Flow Rate 2 08/08/24 04:06 Documenting provider has reviewed patient's vital signs: yes Common normals: no apparent distress Chest Common normals: inspection of chest normal Respiratory Common normals: normal respiratory effort and no retractions Auscultation: rhonchi Cardio Common normals: regular rate and regular rhythm GI Common normals: Normal to inspection, nondistended, normoactive bowel sounds present DS: Data Data Completed and Pending Labs on day of discharge: Labs from last 24 hours 08/08/24 08/08/24 08/07/24 07:20 05:39 19:32 WBC 15.2 H RBC 4.77 Hgb 13.6 L Hct 41.6 L MCV 87.2 MCH 28.5 MCHC 32.7 RDW 13.0 Plt Count 287 MPV 12.3 Neut % (Auto) 88.7 H Lymph % (Auto) 5.5 L [place] % (Auto) 4.7 Eos % (Auto) 0.3 L Baso % (Auto) 0.1 L Neut # (Auto) 13.5 H Lymph # (Auto) 0.8 L [place] # (Auto) 0.7 Eos # (Auto) 0.0 Baso # (Auto) 0.0 Abs Immat Gran (auto) 0.11 H Imm/Tot Granulo (auto) 0.7 H Sodium 141 Potassium 4.2 Chloride 105 Carbon Dioxide 31.5 Anion Gap 8.7 BUN 17.0 Creatinine 0.90 Est GFR ( Amer) >60 Est GFR (Non-Af Amer) >60 BUN/Creatinine Ratio 18.9 Glucose 144 H Calcium 8.5 POC Glucose 130 H 106 08/07/24 08/07/24 08/07/24 16:13 11:50 07:58 WBC RBC Hgb Hct MCV MCH MCHC RDW Plt Count MPV Neut % (Auto) Lymph % (Auto) [place] % (Auto) Eos % (Auto) Baso % (Auto) Neut # (Auto) Lymph # (Auto) [place] # (Auto) Eos # (Auto) Baso # (Auto) Abs Immat Gran (auto) Imm/Tot Granulo (auto) Sodium Potassium Chloride Carbon Dioxide Anion Gap BUN Creatinine Est GFR ( Amer) Est GFR (Non-Af Amer) BUN/Creatinine Ratio Glucose Calcium POC Glucose 226 H 154 H 129 H Preliminary micro results at discharge 08/05/24 03:06 Blood Culture Result 2 - Preliminary Blood - Left Antecubital NO GROWTH AT 36-48 HOURS. FINAL TO FOLLOW. 08/05/24 03:00 Blood Culture Result 1 - Preliminary Blood - Right Antecubital NO GROWTH AT 36-48 HOURS. FINAL TO FOLLOW. 08/05/24 14:30 Lower Respiratory Culture - Preliminary Sputum - Expectorated Sputum Discharge Plan Discharge Disposition: Home, Self-Care Discharge Medications: New prednisone 10 mg tablet 30 mg PO DAILY Qty: 20 0RF Rx Instructions: 3/day for 3 days, 2/day for 3 days, 1/day for 3 days, 1/2 /day for 4 days levofloxacin 500 mg tablet 500 mg PO DAILY 7 Days Qty: 7 0RF Continued trazodone 50 mg tablet 50 mg PO BEDTIME PRN (Reason: sleep) albuterol sulfate 90 mcg/actuation HFA aerosol inhaler 1 inh inhalation Q4H PRN (Reason: shortness of breath or wheezing) Qty: 8.5 0RF ondansetron 4 mg tablet,disintegrating 4 mg PO Q4H PRN (Reason: nausea and vomiting) 3 Days Qty: 6 0RF albuterol sulfate 2.5 mg /3 mL (0.083 %) solution for nebulization 2.5 mg inhalation Q6H PRN (Reason: shortness of breath or wheezing) Qty: 75 0RF omeprazole 40 mg capsule,delayed release(DR/EC) 40 mg PO .BIDAC escitalopram oxalate 10 mg tablet 10 mg PO DAILY Print Language: Czech Forms: Portal Instructions
[2024-08-08] MEDS: ESCITALOPRAM 10 MG TABLET PO (08:44)
[2024-08-08] MEDS: CEFTRIAXONE 1,000 MG in 0.9 % SODIUM CHLORIDE 50 ML 100 MG IV (08:44)
[2024-08-08] MEDS: PANTOPRAZOLE SODIUM 40 MG TABLET.DR PO (08:45)
[2024-08-08] MEDS: POLYETHYLENE GLYCOL 3350 17 GM POWDER PACKET PO (08:45)
[2024-08-08] MEDS: LEVOFLOXACIN IN DEXTROSE 5 % 750 MG/150 ML PREMIX 100 MG IV (09:23)
[2024-08-08] MEDS: BUDESONIDE 0.5 MG/2 ML AMPULE NEB IH (10:47)
[2024-08-08 11:21] LABS: Glucometer 156 mg/dL (74-106)
--- NOTE | 2024-08-12 14:42 | CM.DCFOLLOWU ---
08/12- Pt is inpatient in hospital.
== END 2024-08-08 11:44 | disposition home or self-care (01) | DRG 193 ==
LOC: ER 08-05 02:56 → MS 08-05 04:24
PROVIDERS: Registered Nurse; Admitting Provider Family Medicine; Emergency Provider Internal Medicine; PCP Nurse Practitioner Family; Visit Provider Family Medicine
DX: J18.8 Other pneumonia, unspecified organism (principal); J96.21 Acute and chronic respiratory failure with hypoxia; J47.0 Bronchiectasis with acute lower respiratory infection; J47.1 Bronchiectasis with (acute) exacerbation; F17.290 Nicotine dependence, other tobacco product, uncomplicated; F32.A Depression, unspecified; F41.9 Anxiety disorder, unspecified; F51.01 Primary insomnia; K21.9 Gastro-esophageal reflux disease without esophagitis; R73.9 Hyperglycemia, unspecified; T38.0X5A Adverse effect of glucocorticoids and synthetic analogues, initial encounter; K59.00 Constipation, unspecified; R11.2 Nausea with vomiting, unspecified; Z99.81 Dependence on supplemental oxygen; Z79.899 Other long term (current) drug therapy; Z88.0 Allergy status to penicillin; Z86.16 Personal history of COVID-19
CPT/HCPCS: 36415; 71045; 80048; 80053; 82948; 83605; 83735; 84484; 85025; 87040; 87070; 87205; 87804; 87811; 94640; 94667; 94668; 94761; 96361; 96365; 96375; 99285; J0696; J2919; Q0162

== ENCOUNTER 2024-08-09 09:18 | Inpatient (IN) | payer MEDICARE, SELFPAY ==
[2024-08-09] VITALS (65 sets, daily range): BP systolic 103–132; BP diastolic 68–87; PULSE 90–130; TEMP 36.4–37.1; O2SAT 83–98; BMI 22.3; BMI 21.7
--- NOTE | 2024-08-09 09:21 | ECG_ITS ---
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 Measurements Intervals [place] Rate: 124 P: 44 [place]: 144 QRS: 191 QRSD: 82 T: 48 QT: 280 QTc: 353 Interpretive Statements 1120 Sinus tachycardia [address] depression 5120 Possible right ventricular hypertrophy 8305 Short QTc interval 0102 ARTIFACT PRESENT 9150 abnormal ECG Compared to ECG 07/03/2024 06:14:29 ST (T wave) deviation now present Left posterior fascicular block no longer present Electronically Signed On 08-09-2024 17:06:04 EDT by JACOBY WILLSON M.D.
[2024-08-09] MEDS: MAGNESIUM SULFATE IN WATER 2 GM/50 ML PREMIX IV (09:33)
[2024-08-09] MEDS: LEVALBUTEROL HCL 0.63 MG/3 ML VIAL.NEB IH ×2 (09:35→11:33)
[2024-08-09] MEDS: IPRATROPIUM BROMIDE 0.5 MG/2.5 ML VIAL.NEB IH ×2 (09:35→11:33)
[2024-08-09 09:39] LABS: Hematocrit 46.5 % (42.0-54.0); Hemoglobin 15.7 g/dL (14.0-18.0); Mean Corpuscular HGB Conc 33.8 g/dL (29.9-35.2); Mean Corpuscular Hemoglobin 29.1 pg (25.9-34.0); Mean Corpuscular Volume 86.1 fL (80.0-94.0); Mean Platelet Volume 11.8 fL (9.5-13.5); Platelet Count 334 10^3/uL (150-450); Red Cell Distribution Width 13.2 % (11.0-15.0); White Blood Count 24.7 10^3/uL (4.0-11.0)
[2024-08-09 09:59] LABS: Lymphocytes Absolute Manual 1.48 10^3/uL (1.20-3.80); Monocytes Absolute Manual 1.97 10^3/uL (0.30-0.80); Segmented Neut Absolute Manual 21.24 10^3/uL (1.4-6.5)
[2024-08-09] MEDS: METHYLPREDNISOLONE SOD SUCC PF 125 MG/2 ML VIAL IVP (10:08)
[2024-08-09 10:13] LABS: Alanine Aminotransferase 14 U/L (16-63); Albumin Globulin Ratio 1.1; Albumin Level 3.3 g/dL (3.4-5.0); Alkaline Phosphatase 92 U/L (46-116); Anion Gap 10.9; Aspartate Amino Transferase 9 U/L (15-37); BUN Creatinine Ratio 24.1; Bilirubin Total 0.3 mg/dL (0.2-1.0); Carbon Dioxide 31.7 mmol/L (21.0-32.0); Chloride 104 mmol/L (98-107); Estimated GFR (African America >60 (>=60 mL/min/1.73m^2); Estimated GFR (Non-African Ame >60 (>=60 mL/min/1.73m^2); Ethanol 21 mg/dL; Glucose 153 mg/dL (74-106); Potassium 3.6 mmol/L (3.5-5.1); Sodium 143 mmol/L (136-145); Total Protein 6.3 g/dL (6.4-8.2); Troponin I High Sensitivity 5.4 pg/mL (4.0-76.1)
--- NOTE | 2024-08-09 10:16 | RESP.RT ---
Started on 100% and titrated down to 70%
[2024-08-09 10:34] LABS: Lactate/Lactic Acid 1.9 mmol/L (0.4-2.0)
--- NOTE | 2024-08-09 10:47 | ED_ITS ---
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 By the EMS the patient was found in tripod position and very short of breath treated with breathing treatment and was found to have a pulse ox of 75% on room air Upon arrival the patient in respiratory distress he is tachypneic Related Data Home Medications ?Medication ?Instructions ?Recorded ?Confirmed trazodone 50 mg tablet 50 mg PO BEDTIME PRN sleep 09/13/23 08/09/24 omeprazole 40 mg capsule,delayed 40 mg PO .BIDAC 05/13/24 08/09/24 release escitalopram oxalate 10 mg tablet 10 mg PO DAILY 08/07/24 08/09/24 budesonide-formoterol HFA 160 2 puff inhalation Q12H 08/09/24 08/09/24 mcg-4.5 mcg/actuation aerosol inhaler esomeprazole magnesium 40 mg 40 mg PO Q12H 08/09/24 08/09/24 capsule,delayed release pantoprazole 40 mg tablet,delayed 40 mg PO DAILY 08/09/24 08/09/24 release Previous Rx's ?Medication ?Instructions ?Recorded albuterol sulfate 2.5 mg/3 mL 2.5 mg (3 mL) inhalation Q6H PRN 05/25/23 (0.083 %) solution for nebulization shortness of breath or wheezing #75 mL albuterol sulfate 90 mcg/actuation 1 inh inhalation Q4H PRN shortness 03/22/24 aerosol inhaler of breath or wheezing #8.5 grams ondansetron 4 mg disintegrating 4 mg PO Q4H PRN nausea and 08/03/24 tablet vomiting 3 days #6 tabs levofloxacin 500 mg tablet 500 mg PO DAILY 7 days #7 tabs 08/08/24 prednisone 10 mg tablet 30 mg (3 x 10 mg) PO DAILY #20 tabs 08/08/24 Allergies Allergy/AdvReac Type Severity Reaction Status Date / Time Penicillins Allergy Intermediate Hives Verified 08/04/24 23:30 Review of Systems ROS Status of ROS 10 or more systems reviewed and unremark able except as noted in history and below [facility] Medical History (Updated 08/09/24 @ 12:07 by Comfort Stewart MD) Insomnia ?G47.00 - Insomnia, unspecified (ICD-10) Hypernatremia ?E87.0 - Hyperosmolality and hypernatremia (ICD-10) Right lower lobe pneumonia ?J18.9 - Pneumonia, unspecified organism (ICD-10) Lactic acidosis ?E87.20 - Acidosis, unspecified (ICD-10) Chronic hypoxic respiratory failure, on home oxygen therapy ?J96.11 - Chronic respiratory failure with hypoxia (ICD-10) ?Z99.81 - Dependence on supplemental oxygen (ICD-10) Asthma exacerbation ?J45.901 - Unspecified asthma with (acute) exacerbation (ICD-10) Upper respiratory infection ?J06.9 - Acute upper respiratory infection, unspecified (ICD-10) Esophagitis with gastritis ?K29.70 - Gastritis, unspecified, without bleeding (ICD-10) ?K20.90 - Esophagitis, unspecified without bleeding (ICD-10) Leukocytosis ?D72.829 - Elevated white blood cell count, unspecified (ICD-10) Dyspnea ?R06.00 - Dyspnea, unspecified (ICD-10) Hypoxia ?R09.02 - Hypoxemia (ICD-10) Bronchiectasis with acute exacerbation ?J47.1 - Bronchiectasis with (acute) exacerbation (ICD-10) Depression with anxiety ?F41.8 - Other specified anxiety disorders (ICD-10) Steroid-induced hyperglycemia ?R73.9 - Hyperglycemia, unspecified (ICD-10) ?T38.0X5A - Adverse effect of glucocorticoids and synthetic analogues, initial encounter (ICD-10) Hyponatremia ?E87.1 - Hypo-osmolality and hyponatremia (ICD-10) Chest wall pain ?R07.89 - Other chest pain (ICD-10) Pneumonia ?J18.9 - Pneumonia, unspecified organism (ICD-10) Malnutrition of moderate degree ?E44.0 - Moderate protein-calorie malnutrition (ICD-10) Depression ?F32.A - Depression, unspecified (ICD-10) Bronchiectasis ?J47.9 - Bronchiectasis, uncomplicated (ICD-10) Chronic respiratory failure with hypoxia ?J96.11 - Chronic respiratory failure with hypoxia (ICD-10) Upper respiratory infection ?J06.9 - Acute upper respiratory infection, unspecified (ICD-10) Acute hypokalemia ?E87.6 - Hypokalemia (ICD-10) Avulsion of skin ?T14.8XXA - Other injury of unspecified body region, initial encounter (ICD- 10) Influenza ?J11.1 - Influenza due to unidentified influenza virus with other respiratory manifestations (ICD-10) Marijuana abuse ?F12.10 - Cannabis abuse, uncomplicated (ICD-10) Acute hypoxic respiratory failure ?J96.01 - Acute respiratory failure with hypoxia (ICD-10) Coronavirus infection ?B34.2 - Coronavirus infection, unspecified (ICD-10) Pneumonia ?J18.9 - Pneumonia, unspecified organism (ICD-10) Hospital-acquired bacterial pneumonia ?J15.9 - Unspecified bacterial pneumonia (ICD-10) COVID-19 ?U07.1 - COVID-19 (ICD-10) GERD (gastroesophageal reflux disease) ?K21.9 - Gastro-esophageal reflux disease without esophagitis (ICD-10) 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 - Pyothorax with fistula (ICD-10) Shortness of breath ?R06.02 - Shortness of breath (ICD-10) Chronic dyspnea ?R06.09 - Other forms of dyspnea (ICD-10) Viral infection ?B34.9 - Viral infection, unspecified (ICD-10) Hypoxia ?R09.02 - Hypoxemia (ICD-10) Acute asthma exacerbation ?J45.901 - Unspecified asthma with (acute) exacerbation (ICD-10) Bronchitis ?J40 - Bronchitis, not specified as acute or chronic (ICD-10) History of home oxygen therapy ?Z99.81 - Dependence on supplemental oxygen (ICD-10) Oxygen desaturation during sleep ?G47.34 - 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) History of gastrostomy tube placement Abdominal pain, acute ?R10.9 - Unspecified abdominal pain (ICD-10) Surgical History History of fundoplication ?Z98.890 - Other specified postprocedural states (ICD-10) History of appendectomy ?Z90.49 - Acquired absence of other specified parts of digestive tract (ICD- 10) H/O chest tube placement ?Z98.890 - Other specified postprocedural states (ICD-10) History of facial surgery ?Z98.890 - Other specified postprocedural states (ICD-10) Family History Mother Family history of diabetes mellitus Family history of hypertension Grandmother Family history of diabetes mellitus Grandfather Family history of myocardial infarction Social History (Updated 08/05/24 @ 04:58 by Mariely Mackay) Within the past year, how often did you have a drink containing alcohol: monthly or less Within the past year, how many standard drinks containing alcohol did you have on a typical day: 1 or 2 Within the past year, how often did you have six or more drinks on one occasion: less than monthly Total score: 1 Score interpretation: A score less than 4 is consistent with normal alcohol consumption. Smoking status: Former smoker Nicotine containing products detail: quit smoking 4 months ago Non-prescribed substance use: cannabis (any form) Previous occupational history: [employer] Known occupational exposures/hazards: No Highest level of school completed/degree received: high school graduate Are you now , , , , never or living with a partner: In a typical week, how many times do you talk on the telephone with family, friends, or neighbors: 3 or more times per week How often do you get together with friends or relatives: once per week How often do you attend moravian or christianity services: never Do you belong to any clubs or organizations such as moravian groups unions, fraternal or athletic groups, or school groups: no Total score: 1 Score interpretation: A score of less than or equal to 1 indicates the most socially isolated. Little interest or pleasure in doing things: not at all Feeling down, depressed, or hopeless: not at all Feel stressed/tense/nervous/anxious/difficulty sleeping: not at all Do you think of yourself as: straight/heterosexual Gender Identity: male Exam Narrative Exam Narrative: Nurses notes and vital signs reviewed and patient is not hypoxic. General: Apparent respiratory distress Skin: Warm, dry, no pallor noted. No rash. Head: Normocephalic, atraumatic. Neck: Supple, non-tender. Eye: Pupils are equal, round and EOMI. No scleral icterus. Ears, Nose, Mouth, and Throat: TM are clear, no nasal mucosal hypertrophy. Oral mucosa is moist, no posterior oropharynx erythema, uvula is mid-line Cardiovascular: Regular Rate and Rhythm without murmur, gallop or rub. Respiratory: Patient using accessory muscles tachypneic and speaking only in one-word sentences Back: No midline thoracic or lumbar vertebral tenderness. No CVA tenderness Musculoskeletal: normal ROM, no calf or popliteal tenderness, no lower extremity edema/swelling GI: Abdomen is soft, non-distended. Normal bowel sounds. No masses appreciated. No tenderness to palpation. No rebound, guarding, or rigidity noted. Constitutional Vital Signs, click to edit/add: Last Vital Signs Temp 97.5 F L 08/09/24 09:19 Pulse 123 H 08/09/24 11:41 Resp 24 H 08/09/24 11:41 BP 110/68 08/09/24 10:30 Pulse Ox 97 08/09/24 11:41 O2 Del Method Vapotherm 08/09/24 11:41 O2 Flow Rate 40 08/09/24 11:41 FiO2 70 08/09/24 11:41 Course Vital Signs Vital signs: Vital Signs Temperature 97.5 F L 08/09/24 09:19 Pulse Rate 129 H 08/09/24 09:19 Respiratory Rate 32 H 08/09/24 09:19 Blood Pressure 132/86 08/09/24 09:19 Pulse Oximetry 93 L 08/09/24 09:19 Oxygen Delivery Method Nonrebreather 08/09/24 09:19 Oxygen Delivery Flow Rate 15 08/09/24 09:19 Temperature 97.5 F L 08/09/24 09:19 Pulse Rate 123 H 08/09/24 11:41 Respiratory Rate 24 H 08/09/24 11:41 Blood Pressure 110/68 08/09/24 10:30 Pulse Oximetry 97 08/09/24 11:41 Oxygen Delivery Method Vapotherm 08/09/24 11:41 Oxygen Delivery Flow Rate 40 08/09/24 11:41 Fraction of Inspired Oxygen 70 08/09/24 11:41 MDM - SOB/Dyspnea MDM Narrative Medical decision making narrative: EKG showing sinus tachycardia with a heart rate at [address] elevation or depression that is noted but there is multiple artifacts due to the patient respiratory distress The patient presented to us with an office visit stress he was tachycardic on arrival at 140 he was found to be tachypneic at 94% on 8 L nasal cannula and still having restricted airway bilaterally He was also provided with Solu-Medrol and magnesium Patient also had an x-ray that was repeated today shows extensive changes compar ed to the last time he was here yesterday Patient white blood cell could be elevated due to the infection itself in addition to the fact that he was on prednisone but he had a blood culture obtained started on vancomycin and continued levofloxacin The patient chemistry showed no acute pathology and the lactic was 1.9 CAT scan of the chest showed that the patient have bilateral extensive infiltr ates consistent with multifocal pneumonia The patient feeling better on Vapotherm 40 L at 70% The patient case was discussed with Dr. Sheppard and she agreed on admitting the patient for further evaluation Lab Data Labs: Lab Results 08/09/24 08/09/24 08/09/24 Range/Units 09:25 09:50 11:49 WBC 24.7 H (4.0-11.0) 10^3/uL RBC 5.40 (4.70-6.10) 10^6/uL Hgb 15.7 (14.0-18.0) g/dL Hct 46.5 (42.0-54.0) % MCV 86.1 (80.0-94.0) fL MCH 29.1 (25.9-34.0) pg MCHC 33.8 (29.9-35.2) g/dL RDW 13.2 (11.0-15.0) % Plt Count 334 (150-450) 10^3/uL MPV 11.8 (9.5-13.5) fL Seg Neuts % (Manual) 86.0 H (43.0-75.0) Lymphocytes % (Manual) 6.0 L (20.5-60.0) % Monocytes % (Manual) 8.0 (1.7-12.0) % Eosinophils % (Manual) 0.0 L (0.9-7.0) % Basophils % (Manual) 0.0 L (0.2-2.0) % Neutrophils # (Manual) 21.24 H (1.4-6.5) 10^3/uL Lymphocytes # (Manual) 1.48 (1.20-3.80) 10^3/uL Monocytes # (Manual) 1.97 H (0.30-0.80) 10^3/uL Eosinophils # (Manual) 0.00 (0.00-0.70) 10^3/uL Basophils # (Manual) 0.00 (0.00-0.10) 10^3/uL Sodium 143 (136-145) mmol/L Potassium 3.6 (3.5-5.1) mmol/L Chloride 104 (98-107) mmol/L Carbon Dioxide 31.7 (21.0-32.0) mmol/L Anion Gap 10.9 BUN 19.0 H (7.0-18.0) mg/dL Creatinine 0.79 (0.70-1.30) mg/dL Est GFR ( Amer) >60 (>=60 mL/min/1.73m^2) Est GFR (Non-Af Amer) >60 (>=60 mL/min/1.73m^2) BUN/Creatinine Ratio 24.1 Glucose 153 H (74-106) mg/dL Lactate 1.9 (0.4-2.0) mmol/L Calcium 8.0 L (8.5-10.1) mg/dL Total Bilirubin 0.3 (0.2-1.0) mg/dL AST 9 L (15-37) U/L ALT 14 L (16-63) U/L Alkaline Phosphatase 92 (46-116) U/L Troponin I High Sens 5.4 (4.0-76.1) pg/mL Total Protein 6.3 L (6.4-8.2) g/dL Albumin 3.3 L (3.4-5.0) g/dL Globulin 3.0 g/dL Albumin/Globulin Ratio 1.1 Urine Opiates Screen Positive A (NEGATIVE) Ur Buprenorphine Scrn Negative (NEGATIVE) Ur Oxycodone Screen Negative (NEGATIVE) Urine Methadone Screen Negative (NEGATIVE) Ur Barbiturates Screen Negative (NEGATIVE) U Tricyclic Antidepress Negative (NEGATIVE) Ur Phencyclidine Scrn Negative (NEGATIVE) Ur Amphetamines Screen Negative (NEGATIVE) U Methamphetamines Scrn Negative (NEGATIVE) U Benzodiazepines Scrn Negative (NEGATIVE) Urine Cocaine Screen Negative (NEGATIVE) U Cannabinoids Screen Positive A (NEGATIVE) Ethanol Quant 21 mg/dL Discharge Plan Discharge Chief Complaint: Shortness of Breath/Dyspnea Clinical Impression: Respiratory failure, Multifocal pneumonia, Hypoxemia Patient Disposition: Admitted As Inpatient Time of Disposition Decision: 12:05
[2024-08-09] MEDS: VANCOMYCIN HCL 1,000 MG in 0.9 % SODIUM CHLORIDE 250 ML 250 MG IV (10:50)
--- NOTE | 2024-08-09 11:42 | RESP.RT ---
Titrated down to 40L/60%
[2024-08-09] MEDS: LEVOFLOXACIN IN DEXTROSE 5 % 750 MG/150 ML PREMIX 100 MG IV (12:00)
[2024-08-09 12:05] LABS: Amphetamine Screen Urine NEGATIVE (NEGATIVE); Barbiturates Screen Urine NEGATIVE (NEGATIVE); Benzodiazepines Screen Urine NEGATIVE (NEGATIVE); Buprenorphine Screen Urine NEGATIVE (NEGATIVE); Cannabinoid Screen Urine POSITIVE (NEGATIVE); Cocaine Screen Urine NEGATIVE (NEGATIVE); Methadone Screen Urine NEGATIVE (NEGATIVE); Methamphetamines Screen Urine NEGATIVE (NEGATIVE); Opiate Screen Urine POSITIVE (NEGATIVE); Oxycodone Screen Urine NEGATIVE (NEGATIVE); Phencyclidine Screen Urine NEGATIVE (NEGATIVE); Tricyclic Antidepressant Urine NEGATIVE (NEGATIVE)
[2024-08-09] MEDS: 0.9 % SODIUM CHLORIDE 1,000 ML 500 ML IV (12:24)
[2024-08-09 12:42] LABS: Magnesium 2.8 mg/dL (1.8-2.4)
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
--- NOTE | 2024-08-09 13:20 | RESP.RT ---
Transported up to ICU on NRBM and placed on Vapotherm 40L/50%
[2024-08-09] MEDS: ENOXAPARIN SODIUM 40 MG/0.4 ML SYRINGE SUBQ (14:04)
[2024-08-09] MEDS: METHYLPREDNISOLONE SOD SUCC PF 40 MG/ML VIAL IVP ×2 (14:04→21:17)
[2024-08-09] MEDS: IMIPENEM/CILASTATIN SODIUM 500 MG in 0.9 % SODIUM CHLORIDE 100 ML 200 MG IV ×2 (14:04→19:45)
[2024-08-09] MEDS: SODIUM CHLORIDE 3% INHALATION 15 ML NEB 3 ML IH (16:24)
[2024-08-09] MEDS: IPRATROPIUM/ALBUTEROL SULFATE 3 ML AMPUL.NEB IH ×2 (16:24→23:35)
[2024-08-09 16:37] LABS: Glucometer 288 mg/dL (74-106)
--- NOTE | 2024-08-09 16:50 | RESP.RT ---
Placed on Vapotherm 40L/40% post hhn due to patient complaints of increased dyspnea
[2024-08-09] MEDS: VANCOMYCIN HCL 1,250 MG in 0.9 % SODIUM CHLORIDE 250 ML 166.667 MG IV (17:05)
[2024-08-09] MEDS: PANTOPRAZOLE SODIUM 40 MG TABLET.DR PO (17:06)
[2024-08-09] MEDS: INSULIN ASPART 300 UNIT/3 ML PEN SUBQ ×2 (17:23→21:20)
[2024-08-09] MEDS: ALBUTEROL SULFATE 2.5 MG/3 ML VIAL NEB IH (19:59)
[2024-08-09 21:23] LABS: Glucometer 196 mg/dL (74-106)
[2024-08-09] MEDS: BUDESONIDE 0.5 MG/2 ML AMPULE NEB IH (23:35)
[2024-08-09] MEDS: TRAZODONE HCL 50 MG TABLET PO (23:47)
[2024-08-10] VITALS (52 sets, daily range): BP systolic 116–127; BP diastolic 66–78; PULSE 67–131; TEMP 36.3–36.8; O2SAT 87–96
[2024-08-10] MEDS: IMIPENEM/CILASTATIN SODIUM 500 MG in 0.9 % SODIUM CHLORIDE 100 ML 200 MG IV ×4 (01:15→22:04)
[2024-08-10] MEDS: VANCOMYCIN HCL 1,250 MG in 0.9 % SODIUM CHLORIDE 250 ML 166 MG IV (01:43)
[2024-08-10] MEDS: METHYLPREDNISOLONE SOD SUCC PF 40 MG/ML VIAL IVP ×4 (03:15→22:04)
--- NOTE | 2024-08-10 03:23 | PC.NURSE ---
titrated oxygen down to 3L NC
[2024-08-10] MEDS: IPRATROPIUM/ALBUTEROL SULFATE 3 ML AMPUL.NEB IH ×4 (04:01→22:02)
[2024-08-10 06:00] LABS: Basophils Percent Auto 0.2 % (0.2-2.0); Eosinophils Absolute Auto 0.1 10^3/uL (0.0-0.7); Eosinophils Percent Auto 1.1 % (0.9-7.0); Hematocrit 39.3 % (42.0-54.0); Hemoglobin 13.1 g/dL (14.0-18.0); Immature Granulocytes Abs Auto 0.16 10^3/uL (0.00-0.03); Immature Granulocytes Pct Auto 1.2 % (0.0-0.5); Lymphocytes Absolute Auto 0.6 10^3/uL (1.2-3.8); Lymphocytes Percent Auto 4.8 % (20.5-60.0); Mean Corpuscular HGB Conc 33.3 g/dL (29.9-35.2); Mean Corpuscular Volume 87.1 fL (80.0-94.0); Mean Platelet Volume 11.5 fL (9.5-13.5); Monocytes Absolute Auto 0.4 10^3/uL (0.3-0.8); Monocytes Percent Auto 3.2 % (1.7-12.0); Neutrophils Absolute Auto 11.9 10^3/uL (1.4-6.5); Neutrophils Percent Auto 89.5 % (43.0-75.0); Platelet Count 257 10^3/uL (150-450); Red Blood Count 4.51 10^6/uL (4.70-6.10); White Blood Count 13.3 10^3/uL (4.0-11.0)
[2024-08-10 06:19] LABS: Alanine Aminotransferase 14 U/L (16-63); Albumin Globulin Ratio 0.9; Albumin Level 2.5 g/dL (3.4-5.0); Alkaline Phosphatase 74 U/L (46-116); Anion Gap 9.2; Aspartate Amino Transferase 7 U/L (15-37); BUN Creatinine Ratio 23.5; Bilirubin Total 0.4 mg/dL (0.2-1.0); Chloride 104 mmol/L (98-107); Estimated GFR (African America >60 (>=60 mL/min/1.73m^2); Estimated GFR (Non-African Ame >60 (>=60 mL/min/1.73m^2); Globulin 2.9 g/dL; Glucose 173 mg/dL (74-106); Magnesium 2.3 mg/dL (1.8-2.4); Potassium 4.2 mmol/L (3.5-5.1); Sodium 140 mmol/L (136-145); Total Protein 5.4 g/dL (6.4-8.2)
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
[2024-08-10] MEDS: PANTOPRAZOLE SODIUM 40 MG TABLET.DR PO ×2 (08:23→16:41)
[2024-08-10] MEDS: ESCITALOPRAM 10 MG TABLET PO (08:25)
[2024-08-10] MEDS: INSULIN ASPART 300 UNIT/3 ML PEN SUBQ ×2 (08:26→16:41)
[2024-08-10] MEDS: BUDESONIDE 0.5 MG/2 ML AMPULE NEB IH ×2 (10:39→22:02)
[2024-08-10] MEDS: NICOTINE 21 MG PATCH.TD24 TD (10:47)
[2024-08-10] MEDS: VANCOMYCIN HCL 1,250 MG in 0.9 % SODIUM CHLORIDE 250 ML 250 MG IV ×2 (10:47→17:12)
[2024-08-10 11:12] LABS: Glucometer 143 mg/dL (74-106)
[2024-08-10] MEDS: ENOXAPARIN SODIUM 40 MG/0.4 ML SYRINGE SUBQ (13:25)
--- NOTE | 2024-08-10 14:50 | PC.NURSE ---
Patient HR stach 130's. States he feels like his heart is racing. Dr Sheppard notified. Updated on current assessment and vitals. New orders recieved. Telemetry applied and nicotine patch removed.
[2024-08-10 16:44] LABS: Glucometer 225 mg/dL (74-106)
[2024-08-10 22:10] LABS: Glucometer 273 mg/dL (74-106)
[2024-08-11] VITALS (72 sets, daily range): BP systolic 118–132; BP diastolic 63–78; PULSE 71–129; TEMP 36.3–36.6; O2SAT 89–100
[2024-08-11] MEDS: TRAZODONE HCL 50 MG TABLET PO (00:06)
[2024-08-11] MEDS: ACETAMINOPHEN 325 MG TABLET 650 MG PO (00:07)
[2024-08-11] MEDS: INSULIN ASPART 300 UNIT/3 ML PEN SUBQ ×3 (00:08→22:04)
[2024-08-11] MEDS: IMIPENEM/CILASTATIN SODIUM 500 MG in 0.9 % SODIUM CHLORIDE 100 ML 200 MG IV ×4 (02:30→22:03)
[2024-08-11] MEDS: VANCOMYCIN HCL 1,250 MG in 0.9 % SODIUM CHLORIDE 250 ML 166 MG IV (02:30)
[2024-08-11] MEDS: METHYLPREDNISOLONE SOD SUCC PF 40 MG/ML VIAL IVP ×3 (02:35→22:03)
[2024-08-11] MEDS: IPRATROPIUM/ALBUTEROL SULFATE 3 ML AMPUL.NEB IH ×4 (04:55→22:35)
[2024-08-11 06:13] LABS: Basophils Percent Auto 0.2 % (0.2-2.0); Eosinophils Percent Auto 0.3 % (0.9-7.0); Hematocrit 38.9 % (42.0-54.0); Hemoglobin 12.9 g/dL (14.0-18.0); Immature Granulocytes Abs Auto 0.32 10^3/uL (0.00-0.03); Immature Granulocytes Pct Auto 2.1 % (0.0-0.5); Lymphocytes Absolute Auto 0.6 10^3/uL (1.2-3.8); Lymphocytes Percent Auto 3.9 % (20.5-60.0); Mean Corpuscular HGB Conc 33.2 g/dL (29.9-35.2); Mean Corpuscular Hemoglobin 28.6 pg (25.9-34.0); Mean Corpuscular Volume 86.3 fL (80.0-94.0); Mean Platelet Volume 11.5 fL (9.5-13.5); Monocytes Absolute Auto 0.6 10^3/uL (0.3-0.8); Monocytes Percent Auto 3.6 % (1.7-12.0); Neutrophils Absolute Auto 13.9 10^3/uL (1.4-6.5); Neutrophils Percent Auto 89.9 % (43.0-75.0); Platelet Count 315 10^3/uL (150-450); Red Blood Count 4.51 10^6/uL (4.70-6.10); White Blood Count 15.5 10^3/uL (4.0-11.0)
[2024-08-11 06:31] LABS: Alanine Aminotransferase 15 U/L (16-63); Albumin Globulin Ratio 0.9; Albumin Level 2.5 g/dL (3.4-5.0); Alkaline Phosphatase 78 U/L (46-116); Aspartate Amino Transferase 9 U/L (15-37); BUN Creatinine Ratio 29.3; Bilirubin Total 0.3 mg/dL (0.2-1.0); Calcium 8.1 mg/dL (8.5-10.1); Carbon Dioxide 30.2 mmol/L (21.0-32.0); Chloride 106 mmol/L (98-107); Estimated GFR (African America >60 (>=60 mL/min/1.73m^2); Estimated GFR (Non-African Ame >60 (>=60 mL/min/1.73m^2); Globulin 2.7 g/dL; Glucose 161 mg/dL (74-106); Magnesium 2.2 mg/dL (1.8-2.4); Potassium 4.2 mmol/L (3.5-5.1); Sodium 141 mmol/L (136-145); Total Protein 5.2 g/dL (6.4-8.2)
[2024-08-11] MEDS: PANTOPRAZOLE SODIUM 40 MG TABLET.DR PO ×2 (06:35→16:32)
[2024-08-11] MEDS: ESCITALOPRAM 10 MG TABLET PO (08:04)
--- NOTE | 2024-08-11 08:17 | P.PN_ITS ---
Progress Note: Subjective Subjective Interval history: Still with significant dyspnea with any activity, can walk in the room with his oxygen on but still dyspneic Exam Constitutional Vital Signs, click to edit/add: Last Vital Signs Temp 97.6 F 08/11/24 07:45 Pulse 105 H 08/11/24 08:01 Resp 22 H 08/11/24 07:45 BP 132/78 08/11/24 07:45 Pulse Ox 95 08/11/24 08:01 O2 Del Method Nasal Cannula 08/11/24 07:45 O2 Flow Rate 3 08/11/24 07:45 FiO2 60 08/09/24 13:12 Documenting provider has reviewed patient's vital signs: yes Common normals: apparent distress (Mild conversational dyspnea from his baseline) Respiratory Common normals: abnormal respiratory effort (Mild conversational dyspnea from his baseline) Auscultation: rhonchi and wheezes Cardio Common normals: regular rate and regular rhythm Extremity Common normals: normal to inspection Progress Note: Objective Labs Labs: Short CBC 08/11/24 Range/Units 05:54 WBC 15.5 H (4.0-11.0) 10^3/uL Hgb 12.9 L (14.0-18.0) g/dL Hct 38.9 L (42.0-54.0) % Plt Count 315 (150-450) 10^3/uL BMP 08/11/24 05:54 Sodium 141 Potassium 4.2 Chloride 106 Carbon Dioxide 30.2 BUN 22.0 H Creatinine 0.75 Glucose 161 H Calcium 8.1 L Liver Function 08/11/24 Range/Units 05:54 Total Bilirubin 0.3 (0.2-1.0) mg/dL AST 9 L (15-37) U/L ALT 15 L (16-63) U/L Alkaline Phosphatase 78 (46-116) U/L Albumin 2.5 L (3.4-5.0) g/dL Progress Note: A&P Assessment and Plan (1) Healthcare-associated pneumonia: (2) Acute hypoxic respiratory failure: (3) Steroid-induced hyperglycemia: (4) Bronchiectasis: Qualifiers: Bronchiectasis type: uncomplicated Qualified Code(s): J47.9 - Bronchiectasis, uncomplicated (5) Marijuana abuse: (6) Depression with anxiety: (7) Insomnia: Qualifiers: Insomnia type: primary Qualified Code(s): F51.01 - Primary insomnia (8) Tobacco abuse: Plan Admission findings: Leukocytosis with left shift consistent with bacterial process, hyperglycemia, sinus tachycardia, respiratory distress, acute hypoxic respiratory failure requiring BiPAP ventilation complicated by chronic hypoxic respiratory failure, leukocytosis, CT scan consistent with multifocal pneumonia worse from time of discharge, resulting in healthcare acquired pneumonia diagnosis with acute hypoxic respiratory failure with acute exacerbation of chronic hypoxic respiratory failure leading to sepsis(tachycardia, respiratory distress, leukocytosis, known infectious source of pneumonia) Acute hypoxic respiratory failure with acute exacerbation of chronic hypoxic respiratory failure related to bronchiectasis and now secondary to healthcare acquired pneumonia leading to sepsis as outlined above-improved with the imipenem and vancomycin, will maintain that, continue with aerosol treatments, decrease steroids today, continue try to wean supplemental oxygen, his oxygen use at home was only at at bedtime or with significant exertional activities, he does not wear at rest during the day Steroid-induced hyperglycemia: Continue to monitor Depression with anxiety: Continue with current medications Insomnia: Continue current medications Tobacco abuse: Tried nicotine patch but had significant tachycardia related to that, improved once nicotine patch was removed Iron deficiency anemia-monitor daily Hypomagnesemia but this was checked after bolus in ER due to the wheezing, return to baseline, can discontinue monitoring GERD-continue with home medications Admission status: Patient admitted to the intensive care unit with acute hypoxic respiratory failure requiring BiPAP ventilation due to healthcare acquired pneumonia complicated by acute exacerbation of chronic hypoxic respiratory failure, medically necessary treatment will span more than 2 midnights. Maintain inpatient status
[2024-08-11 08:42] LABS: Influenza Virus A Antigen Negative; Influenza Virus B Antigen Negative; Internal Control Within Normal Limits; SARS-CoV-2 Ag NEGATIVE (NEGATIVE)
[2024-08-11] MEDS: VANCOMYCIN HCL 1,250 MG in 0.9 % SODIUM CHLORIDE 250 ML 250 MG IV (09:26)
[2024-08-11] MEDS: BUDESONIDE 0.5 MG/2 ML AMPULE NEB IH ×2 (11:14→22:35)
--- NOTE | 2024-08-11 11:34 | SWNOTE1 ---
SW called [facility] again and did get confirmation that a certificate of medical necessity was signed in August of 2023 by Anthony Cannon pulmonogist in [place], script was for 3 liters of exertion which was confirming the script back in April of 2022.
[2024-08-11 11:46] LABS: Glucometer 167 mg/dL (74-106)
--- NOTE | 2024-08-11 12:37 | CM.NOTE ---
Important Message From [employer] discussed with pt, pt verbalizes understanding and signs paper. Original given to pt and copy placed on pt's chart.
[2024-08-11 16:37] LABS: Glucometer 225 mg/dL (74-106)
[2024-08-11] MEDS: VANCOMYCIN HCL 1,250 MG in 0.9 % SODIUM CHLORIDE 250 ML 200 MG IV (18:05)
[2024-08-11 19:31] LABS: Glucometer 176 mg/dL (74-106)
[2024-08-12] VITALS (22 sets, daily range): BP systolic 118–138; BP diastolic 67–76; PULSE 20–114; TEMP 36.4–36.7; O2SAT 87–98
[2024-08-12] MEDS: IMIPENEM/CILASTATIN SODIUM 500 MG in 0.9 % SODIUM CHLORIDE 100 ML 200 MG IV ×4 (04:22→21:10)
[2024-08-12] MEDS: VANCOMYCIN HCL 1,250 MG in 0.9 % SODIUM CHLORIDE 250 ML 166.67 MG IV (04:22)
[2024-08-12] MEDS: METHYLPREDNISOLONE SOD SUCC PF 40 MG/ML VIAL IVP ×3 (04:23→18:08)
[2024-08-12] MEDS: IPRATROPIUM/ALBUTEROL SULFATE 3 ML AMPUL.NEB IH ×4 (04:45→22:40)
[2024-08-12 05:29] LABS: Basophils Percent Auto 0.2 % (0.2-2.0); Eosinophils Absolute Auto 0.1 10^3/uL (0.0-0.7); Eosinophils Percent Auto 0.4 % (0.9-7.0); Hemoglobin 13.8 g/dL (14.0-18.0); Lymphocytes Absolute Auto 0.6 10^3/uL (1.2-3.8); Lymphocytes Percent Auto 4.3 % (20.5-60.0); Mean Corpuscular HGB Conc 32.9 g/dL (29.9-35.2); Mean Corpuscular Hemoglobin 28.5 pg (25.9-34.0); Mean Corpuscular Volume 86.6 fL (80.0-94.0); Mean Platelet Volume 11.3 fL (9.5-13.5); Monocytes Absolute Auto 0.6 10^3/uL (0.3-0.8); Monocytes Percent Auto 4.1 % (1.7-12.0); Neutrophils Absolute Auto 13.4 10^3/uL (1.4-6.5); Platelet Count 336 10^3/uL (150-450); Red Blood Count 4.85 10^6/uL (4.70-6.10); Red Cell Distribution Width 12.9 % (11.0-15.0); White Blood Count 15.1 10^3/uL (4.0-11.0)
[2024-08-12 05:37] LABS: Anion Gap 10.2; BUN Creatinine Ratio 26.2; Carbon Dioxide 29.9 mmol/L (21.0-32.0); Chloride 105 mmol/L (98-107); Estimated GFR (African America >60 (>=60 mL/min/1.73m^2); Estimated GFR (Non-African Ame >60 (>=60 mL/min/1.73m^2); Glucose 167 mg/dL (74-106); Potassium 4.1 mmol/L (3.5-5.1); Sodium 141 mmol/L (136-145)
[2024-08-12] MEDS: PANTOPRAZOLE SODIUM 40 MG TABLET.DR PO ×2 (06:46→16:27)
--- NOTE | 2024-08-12 06:59 | P.DS_ITS ---
DS: Providers Provider Date of admission: 08/09/24 12:59 Primary care physician: REBEKAH BARBOZA DS: Diagnosis Discharge Diagnosis (1) Healthcare-associated pneumonia: (2) Acute hypoxic respiratory failure: (3) Steroid-induced hyperglycemia: (4) Bronchiectasis: Qualifiers: Bronchiectasis type: uncomplicated Qualified Code(s): J47.9 - Bronchiectasis, uncomplicated (5) Marijuana abuse: (6) Depression with anxiety: (7) Insomnia: Qualifiers: Insomnia type: primary Qualified Code(s): F51.01 - Primary insomnia (8) Tobacco abuse: Plan Admission findings: Leukocytosis with left shift consistent with bacterial process, hyperglycemia, sinus tachycardia, respiratory distress, acute hypoxic respiratory failure requiring BiPAP ventilation complicated by chronic hypoxic respiratory failure, leukocytosis, CT scan consistent with multifocal pneumonia worse from time of discharge, resulting in healthcare acquired pneumonia diagnosis with acute hypoxic respiratory failure with acute exacerbation of chronic hypoxic respiratory failure leading to sepsis(tachycardia, respiratory distress, leukocytosis, known infectious source of pneumonia) Acute hypoxic respiratory failure with acute exacerbation of chronic hypoxic respiratory failure related to bronchiectasis and now secondary to healthcare acquired pneumonia leading to sepsis as outlined above-improved with the imipenem and vancomycin, will maintain that, continue with aerosol treatments, decrease steroids today, continue try to wean supplemental oxygen, his oxygen use at home was only at at bedtime or with significant exertional activities, he does not wear at rest during the day Steroid-induced hyperglycemia: Continue to monitor Depression with anxiety: Continue with current medications Insomnia: Continue current medications L Tobacco abuse: Tried nicotine patch but had significant tachycardia related to that, improved once nicotine patch was removed Iron deficiency anemia-monitor daily Hypomagnesemia but this was checked after bolus in ER due to the wheezing, return to baseline, can discontinue monitoring GERD-continue with home medications Admission status: Patient admitted to the intensive care unit with acute hypoxic respiratory failure requiring BiPAP ventilation due to healthcare acquired pneumonia complicated by acute exacerbation of chronic hypoxic respiratory failure, medically necessary treatment will span more than 2 midnights. Maintain inpatient status ? DS: Summary Time Spent with Patient Time attestation: Total time spent providing and/or coordinating discharge services: Exam Constitutional Vital Signs, click to edit/add: Last Vital Signs Temp 97.6 F 08/12/24 04:00 Pulse 84 08/12/24 06:36 Resp 18 08/12/24 04:58 BP 121/67 08/12/24 04:00 Pulse Ox 94 L 08/12/24 06:36 O2 Del Method Nasal Cannula 08/12/24 04:58 O2 Flow Rate 3 08/12/24 04:58 FiO2 60 08/09/24 13:12 DS: Data Data Completed and Pending Labs on day of discharge: Labs from last 24 hours 08/12/24 08/11/24 08/11/24 05:13 19:28 16:30 WBC 15.1 H RBC 4.85 Hgb 13.8 L Hct 42.0 MCV 86.6 MCH 28.5 MCHC 32.9 RDW 12.9 Plt Count 336 MPV 11.3 Neut % (Auto) 89.0 H Lymph % (Auto) 4.3 L [place] % (Auto) 4.1 Eos % (Auto) 0.4 L Baso % (Auto) 0.2 Neut # (Auto) 13.4 H Lymph # (Auto) 0.6 L [place] # (Auto) 0.6 Eos # (Auto) 0.1 Baso # (Auto) 0.0 Abs Immat Gran (auto) 0.30 H Imm/Tot Granulo (auto) 2.0 H Sodium 141 Potassium 4.1 Chloride 105 Carbon Dioxide 29.9 Anion Gap 10.2 BUN 22.0 H Creatinine 0.84 Est GFR ( Amer) >60 Est GFR (Non-Af Amer) >60 BUN/Creatinine Ratio 26.2 Glucose 167 H Calcium 8.0 L Influenza Type A Ag Influenza Type B Ag SARS-CoV-2 Ag (CV2AG) POC Glucose 176 H 225 H 08/11/24 08/11/24 11:33 08:20 WBC RBC Hgb Hct MCV MCH MCHC RDW Plt Count MPV Neut % (Auto) Lymph % (Auto) [place] % (Auto) Eos % (Auto) Baso % (Auto) Neut # (Auto) Lymph # (Auto) [place] # (Auto) Eos # (Auto) Baso # (Auto) Abs Immat Gran (auto) Imm/Tot Granulo (auto) Sodium Potassium Chloride Carbon Dioxide Anion Gap BUN Creatinine Est GFR ( Amer) Est GFR (Non-Af Amer) BUN/Creatinine Ratio Glucose Calcium Influenza Type A Ag Negative Influenza Type B Ag Negative SARS-CoV-2 Ag (CV2AG) Negative POC Glucose 167 H Preliminary micro results at discharge 08/09/24 10:27 Blood Culture Result 2 - Preliminary Blood NO GROWTH AT 36-48 HOURS. FINAL TO FOLLOW. 08/09/24 10:25 Blood Culture Result 1 - Preliminary Blood NO GROWTH AT 36-48 HOURS. FINAL TO FOLLOW. Discharge Plan Discharge Discharge Medications: No Action trazodone 50 mg tablet 50 mg PO BEDTIME PRN (Reason: sleep) albuterol sulfate 90 mcg/actuation HFA aerosol inhaler 1 inh inhalation Q4H PRN (Reason: shortness of breath or wheezing) Qty: 8.5 0RF ondansetron 4 mg tablet,disintegrating 4 mg PO Q4H PRN (Reason: nausea and vomiting) 3 Days Qty: 6 0RF albuterol sulfate 2.5 mg /3 mL (0.083 %) solution for nebulization 2.5 mg inhalation Q6H PRN (Reason: shortness of breath or wheezing) Qty: 75 0RF omeprazole 40 mg capsule,delayed release(DR/EC) 40 mg PO .BIDAC escitalopram oxalate 10 mg tablet 10 mg PO DAILY prednisone 10 mg tablet 30 mg PO DAILY Qty: 20 0RF Rx Instructions: 3/day for 3 days, 2/day for 3 days, 1/day for 3 days, 1/2 /day for 4 days levofloxacin 500 mg tablet 500 mg PO DAILY 7 Days Qty: 7 0RF budesonide-formoterol 160-4.5 mcg/actuation HFA aerosol inhaler 2 puff INHALATION Q12H esomeprazole magnesium 40 mg capsule,delayed release(DR/EC) 40 mg PO Q12H pantoprazole 40 mg tablet,delayed release (DR/EC) 40 mg PO DAILY Print Language: Mexican
[2024-08-12 07:38] LABS: Glucometer 155 mg/dL (74-106)
--- NOTE | 2024-08-12 07:40 | P.PN_ITS ---
Progress Note: Subjective Subjective Interval history: Patient still with significant dyspnea just with activity in the room, still requiring 2 L of supplemental oxygen the patient does not require supplemental oxygen at home during the day Exam Constitutional Vital Signs, click to edit/add: Last Vital Signs Temp 97.6 F 08/12/24 04:00 Pulse 84 08/12/24 06:36 Resp 18 08/12/24 04:58 BP 121/67 08/12/24 04:00 Pulse Ox 94 L 08/12/24 06:36 O2 Del Method Nasal Cannula 08/12/24 04:58 O2 Flow Rate 3 08/12/24 04:58 FiO2 60 08/09/24 13:12 Documenting provider has reviewed patient's vital signs: yes Common normals: no apparent distress (Respiratory distress seems improved) Chest Common normals: inspection of chest normal and palpation of chest normal Respiratory Common normals: normal respiratory effort Auscultation: rhonchi (Unchanged from previous day) and wheezes (Persisting) Cardio Common normals: regular rate, regular rhythm and no murmurs Progress Note: Objective Labs Labs: Short CBC 08/12/24 Range/Units 05:13 WBC 15.1 H (4.0-11.0) 10^3/uL Hgb 13.8 L (14.0-18.0) g/dL Hct 42.0 (42.0-54.0) % Plt Count 336 (150-450) 10^3/uL BMP 08/12/24 05:13 Sodium 141 Potassium 4.1 Chloride 105 Carbon Dioxide 29.9 BUN 22.0 H Creatinine 0.84 Glucose 167 H Calcium 8.0 L Progress Note: A&P Assessment and Plan (1) Healthcare-associated pneumonia: (2) Acute hypoxic respiratory failure: (3) Steroid-induced hyperglycemia: (4) Bronchiectasis: Qualifiers: Bronchiectasis type: uncomplicated Qualified Code(s): J47.9 - Bronchiectasis, uncomplicated (5) Marijuana abuse: (6) Depression with anxiety: (7) Insomnia: Qualifiers: Insomnia type: primary Qualified Code(s): F51.01 - Primary insomnia (8) Tobacco abuse: Plan Admission findings: Leukocytosis with left shift consistent with bacterial process, hyperglycemia, sinus tachycardia, respiratory distress, acute hypoxic respiratory failure requiring BiPAP ventilation complicated by chronic hypoxic respiratory failure, leukocytosis, CT scan consistent with multifocal pneumonia worse from time of discharge, resulting in healthcare acquired pneumonia diagnosis with acute hypoxic respiratory failure with acute exacerbation of chronic hypoxic respiratory failure leading to sepsis(tachycardia, respiratory distress, leukocytosis, known infectious source of pneumonia) Acute hypoxic respiratory failure with acute exacerbation of chronic hypoxic respiratory failure related to bronchiectasis and now secondary to healthcare acquired pneumonia leading to sepsis as outlined above-overall it does seem like he is improving, he was able to give a sputum sample this morning which is still discolored, with failed outpatient treatment and the nosocomial pneumonia, 1 more day of IV antibiotics since they do not come in oral form will hopefully prevent any readmission Steroid-induced hyperglycemia: Continue to monitor Depression with anxiety: Continue with current medications Insomnia: Continue current medications Tobacco abuse: Tried nicotine patch but had significant tachycardia related to that, improved once nicotine patch was removed Iron deficiency anemia-monitor daily Hypomagnesemia but this was checked after bolus in ER due to the wheezing, return to baseline, can discontinue monitoring GERD-continue with home medications Admission status: Patient admitted to the intensive care unit with acute hypoxic respiratory failure requiring BiPAP ventilation due to healthcare acquired pneumonia complicated by acute exacerbation of chronic hypoxic respiratory failure, medically necessary treatment will span more than 2 midnights. Maintain inpatient status ?
--- NOTE | 2024-08-12 08:37 | CM.NOTE ---
Spoke with Dr. Elkins regarding need for walk test prior to discharge for new home oxygen order. Pt at this time requiring oxygen @2L continuos and home order is with exertion.
[2024-08-12] MEDS: ESCITALOPRAM 10 MG TABLET PO (09:29)
[2024-08-12] MEDS: 0.9 % SODIUM CHLORIDE 250 ML 10 ML IV (09:29)
[2024-08-12 10:05] LABS: Vancomycin Trough 19.4 ug/mL (5.0-20.0)
[2024-08-12] MEDS: BUDESONIDE 0.5 MG/2 ML AMPULE NEB IH ×2 (10:16→22:40)
[2024-08-12] MEDS: VANCOMYCIN HCL 1,250 MG in 0.9 % SODIUM CHLORIDE 250 ML 250 MG IV (10:25)
[2024-08-12 11:21] LABS: Glucometer 137 mg/dL (74-106)
[2024-08-12 16:22] LABS: Glucometer 163 mg/dL (74-106)
[2024-08-12] MEDS: VANCOMYCIN HCL 1,250 MG in 0.9 % SODIUM CHLORIDE 250 ML 166.667 MG IV (18:08)
[2024-08-12 21:07] LABS: Glucometer 249 mg/dL (74-106)
[2024-08-12] MEDS: INSULIN ASPART 300 UNIT/3 ML PEN SUBQ (21:11)
[2024-08-13] VITALS (11 sets, daily range): BP systolic 110–137; BP diastolic 69–74; PULSE 72–101; TEMP 36.4–36.7; O2SAT 94–97
[2024-08-13] MEDS: IMIPENEM/CILASTATIN SODIUM 500 MG in 0.9 % SODIUM CHLORIDE 100 ML 200 MG IV ×2 (01:22→08:32)
[2024-08-13] MEDS: VANCOMYCIN HCL 1,250 MG in 0.9 % SODIUM CHLORIDE 250 ML 166.67 MG IV (01:22)
[2024-08-13] MEDS: METHYLPREDNISOLONE SOD SUCC PF 40 MG/ML VIAL IVP ×2 (03:17→10:53)
[2024-08-13] MEDS: IPRATROPIUM/ALBUTEROL SULFATE 3 ML AMPUL.NEB IH ×3 (05:05→16:03)
[2024-08-13 05:18] LABS: Basophils Percent Auto 0.1 % (0.2-2.0); Eosinophils Percent Auto 0.1 % (0.9-7.0); Hematocrit 40.3 % (42.0-54.0); Hemoglobin 13.6 g/dL (14.0-18.0); Immature Granulocytes Abs Auto 0.43 10^3/uL (0.00-0.03); Immature Granulocytes Pct Auto 2.7 % (0.0-0.5); Lymphocytes Absolute Auto 0.5 10^3/uL (1.2-3.8); Lymphocytes Percent Auto 3.3 % (20.5-60.0); Mean Corpuscular HGB Conc 33.7 g/dL (29.9-35.2); Mean Corpuscular Hemoglobin 28.8 pg (25.9-34.0); Mean Corpuscular Volume 85.2 fL (80.0-94.0); Mean Platelet Volume 11.2 fL (9.5-13.5); Monocytes Absolute Auto 0.9 10^3/uL (0.3-0.8); Monocytes Percent Auto 5.5 % (1.7-12.0); Neutrophils Absolute Auto 14.1 10^3/uL (1.4-6.5); Neutrophils Percent Auto 88.3 % (43.0-75.0); Platelet Count 350 10^3/uL (150-450); Red Blood Count 4.73 10^6/uL (4.70-6.10); Red Cell Distribution Width 12.8 % (11.0-15.0)
[2024-08-13 05:32] LABS: BUN Creatinine Ratio 27.2; Carbon Dioxide 29.1 mmol/L (21.0-32.0); Chloride 104 mmol/L (98-107); Estimated GFR (African America >60 (>=60 mL/min/1.73m^2); Estimated GFR (Non-African Ame >60 (>=60 mL/min/1.73m^2); Glucose 185 mg/dL (74-106); Potassium 4.1 mmol/L (3.5-5.1); Sodium 141 mmol/L (136-145)
[2024-08-13] MEDS: PANTOPRAZOLE SODIUM 40 MG TABLET.DR PO (06:22)
--- NOTE | 2024-08-13 07:35 | CM.NOTE ---
2nd Important Message From Medicare discussed with pt, pt denies questions or concerns.
[2024-08-13 07:49] LABS: Glucometer 140 mg/dL (74-106)
--- NOTE | 2024-08-13 07:58 | P.DS_ITS ---
DS: Providers Provider Date of admission: 08/09/24 12:59 Primary care physician: REBEKAH BARBOZA DS: Diagnosis Discharge Diagnosis (1) Healthcare-associated pneumonia: (2) Acute hypoxic respiratory failure: (3) Steroid-induced hyperglycemia: (4) Bronchiectasis: Qualifiers: Bronchiectasis type: uncomplicated Qualified Code(s): J47.9 - Bronchiectasis, uncomplicated (5) Marijuana abuse: (6) Depression with anxiety: (7) Insomnia: Qualifiers: Insomnia type: primary Qualified Code(s): F51.01 - Primary insomnia (8) Tobacco abuse: Plan Admission findings: Leukocytosis with left shift consistent with bacterial process, hyperglycemia, sinus tachycardia, respiratory distress, acute hypoxic respiratory failure requiring BiPAP ventilation complicated by chronic hypoxic respiratory failure, leukocytosis, CT scan consistent with multifocal pneumonia worse from time of discharge, resulting in healthcare acquired pneumonia diagnosis with acute hypoxic respiratory failure with acute exacerbation of chronic hypoxic respiratory failure leading to sepsis(tachycardia, respiratory distress, leukocytosis, known infectious source of pneumonia) Acute hypoxic respiratory failure with acute exacerbation of chronic hypoxic respiratory failure related to bronchiectasis and now secondary to healthcare a cquired pneumonia leading to sepsis as outlined above-overall it does seem like he is improving, he was able to give a sputum sample this morning which is still discolored, with failed outpatient treatment and the nosocomial pneumonia, 1 more day of IV antibiotics since they do not come in oral form will hopefully prevent any readmission Steroid-induced hyperglycemia: Continue to monitor Depression with anxiety: Continue with current medications Insomnia: Continue current medications Tobacco abuse: Tried nicotine patch but had significant tachycardia related to that, improved once nicotine patch was removed Iron deficiency anemia-monitor daily Hypomagnesemia but this was checked after bolus in ER due to the wheezing, return to baseline, can discontinue monitoring GERD-continue with home medications Admission status: Patient admitted to the intensive care unit with acute hypoxic respiratory failure requiring BiPAP ventilation due to healthcare acquired pneumonia complicated by acute exacerbation of chronic hypoxic respiratory failure, medically necessary treatment will span more than 2 midnights. Maintain inpatient status ? DS: Summary Hospital Course Hospital Course: Patient was seen and evaluated in the emergency room after being picked up by EMS with Leukocytosis with left shift consistent with bacterial process, hyperglycemia, sinus tachycardia, respiratory distress, acute hypoxic respiratory failure requiring BiPAP ventilation complicated by chronic hypoxic respiratory failure, leukocytosis, CT scan consistent with multifocal pneumonia worse from time of discharge, resulting in healthcare acquired pneumonia diagnosis with acute hypoxic respiratory failure with acute exacerbation of chronic hypoxic respiratory failure leading to sepsis(tachycardia, respiratory distress, leukocytosis, known infectious source of pneumonia) Placed in intensive care unit on BiPAP initially, able to wean that over the first 24 hours and placed on nasal cannula, at home he only wears nasal cannula oxygen at bedtime or with extreme activity, unable to wean him off of his supplemental oxygen, sputum culture is pending but patient overall feels improved white blood cell count still elevated but improved from admission, with patient overall feeling improved despite the numbers not being exactly what we want and will try patient at home with culture pending and close follow-up at the office. Medications see list. Follow-up with me in the office later this week. [id number] evaluation completed for supplemental oxygen at home-will need 2 L of supplemental oxygen continuous, 3 L at at bedtime Time Spent with Patient Time attestation: Total time spent providing and/or coordinating discharge services: Exam Constitutional Vital Signs, click to edit/add: Last Vital Signs Temp 98.1 F 08/13/24 07:31 Pulse 79 08/13/24 07:31 Resp 18 08/13/24 07:31 BP 136/73 08/13/24 07:31 Pulse Ox 94 L 08/13/24 07:31 O2 Del Method Room Air 08/13/24 07:31 O2 Flow Rate 3 08/13/24 05:05 FiO2 60 08/09/24 13:12 DS: Data Data Completed and Pending Labs on day of discharge: Labs from last 24 hours 08/13/24 08/13/24 08/12/24 07:48 05:06 21:06 WBC 16.0 H RBC 4.73 Hgb 13.6 L Hct 40.3 L MCV 85.2 MCH 28.8 MCHC 33.7 RDW 12.8 Plt Count 350 MPV 11.2 Neut % (Auto) 88.3 H Lymph % (Auto) 3.3 L [place] % (Auto) 5.5 Eos % (Auto) 0.1 L Baso % (Auto) 0.1 L Neut # (Auto) 14.1 H Lymph # (Auto) 0.5 L [place] # (Auto) 0.9 H Eos # (Auto) 0.0 Baso # (Auto) 0.0 Abs Immat Gran (auto) 0.43 H Imm/Tot Granulo (auto) 2.7 H Sodium 141 Potassium 4.1 Chloride 104 Carbon Dioxide 29.1 Anion Gap 12.0 BUN 22.0 H Creatinine 0.81 Est GFR ( Amer) >60 Est GFR (Non-Af Amer) >60 BUN/Creatinine Ratio 27.2 Glucose 185 H Calcium 8.0 L Vancomycin Trough POC Glucose 140 H 249 H 08/12/24 08/12/24 08/12/24 16:21 11:20 09:14 WBC RBC Hgb Hct MCV MCH MCHC RDW Plt Count MPV Neut % (Auto) Lymph % (Auto) [place] % (Auto) Eos % (Auto) Baso % (Auto) Neut # (Auto) Lymph # (Auto) [place] # (Auto) Eos # (Auto) Baso # (Auto) Abs Immat Gran (auto) Imm/Tot Granulo (auto) Sodium Potassium Chloride Carbon Dioxide Anion Gap BUN Creatinine Est GFR ( Amer) Est GFR (Non-Af Amer) BUN/Creatinine Ratio Glucose Calcium Vancomycin Trough 19.4 POC Glucose 163 H 137 H Preliminary micro results at discharge 08/09/24 10:27 Blood Culture Result 2 - Preliminary Blood NO GROWTH AT 36-48 HOURS. FINAL TO FOLLOW. 08/09/24 10:25 Blood Culture Result 1 - Preliminary Blood NO GROWTH AT 36-48 HOURS. FINAL TO FOLLOW. Discharge Plan Discharge Disposition: Home, Self-Care Discharge Medications: New clindamycin HCl 300 mg capsule 300 mg PO Q6H 10 Days Qty: 40 0RF Continued trazodone 50 mg tablet 50 mg PO BEDTIME PRN (Reason: sleep) albuterol sulfate 90 mcg/actuation HFA aerosol inhaler 1 inh inhalation Q4H PRN (Reason: shortness of breath or wheezing) Qty: 8.5 0RF ondansetron 4 mg tablet,disintegrating 4 mg PO Q4H PRN (Reason: nausea and vomiting) 3 Days Qty: 6 0RF albuterol sulfate 2.5 mg /3 mL (0.083 %) solution for nebulization 2.5 mg inhalation Q6H PRN (Reason: shortness of breath or wheezing) Qty: 75 0RF omeprazole 40 mg capsule,delayed release(DR/EC) 40 mg PO .BIDAC escitalopram oxalate 10 mg tablet 10 mg PO DAILY prednisone 10 mg tablet 30 mg PO DAILY Qty: 20 0RF Rx Instructions: 3/day for 3 days, 2/day for 3 days, 1/day for 3 days, 1/2 /day for 4 days levofloxacin 500 mg tablet 500 mg PO DAILY 7 Days Qty: 7 0RF budesonide-formoterol 160-4.5 mcg/actuation HFA aerosol inhaler 2 puff INHALATION Q12H esomeprazole magnesium 40 mg capsule,delayed release(DR/EC) 40 mg PO Q12H pantoprazole 40 mg tablet,delayed release (DR/EC) 40 mg PO DAILY Print Language: Lithuanian Forms: Portal Instructions
[2024-08-13] MEDS: ESCITALOPRAM 10 MG TABLET PO (08:32)
[2024-08-13] MEDS: VANCOMYCIN HCL 1,250 MG in 0.9 % SODIUM CHLORIDE 250 ML 167 MG IV (09:08)
--- NOTE | 2024-08-13 09:40 | SWNOTE1 ---
SW faxed walk test, prescription, and face to face eval to [facility] [facility]. Pt's new oxygen order is 2 liters continuous and 3 liters at bedtime.
--- NOTE | 2024-08-13 10:22 | SWNOTE1 ---
SW updated pt in regards to his new home oxygen orders. Pt did ask about inogen machine. SW did explain that he will have to discuss with his PCP in regards to this. They have to provide proper documentation, etc. SW and pt spoke about taking care of himself and surrounding himself with good support. Pt voiced he kicked out the person that was living with him and had a good conversation with his mother. He voiced he was done drinking and smoking and had quite a scare on Sunday. Pt voiced he is ready to take care of himself.
[2024-08-13] MEDS: BUDESONIDE 0.5 MG/2 ML AMPULE NEB IH (10:25)
[2024-08-13 11:18] LABS: Glucometer 174 mg/dL (74-106)
--- NOTE | 2024-08-13 11:24 | SWNOTE1 ---
JAY spoke with [facility] to let them know pt does need a tank to go home with. MSC voiced he should have something there. SW went in to pt's room and pt spoke with [facility]. Pt does need to wait for a tank to be delivered. SW updated nursing and [facility] said it should be within the next 1-2 hours.
--- NOTE | 2024-08-13 15:35 | SWNOTE1 ---
JAY called [facility] and they will have special delivery messenger call JAY with ETA. JAY updated nurse.
--- NOTE | 2024-08-13 15:49 | SWNOTE1 ---
SW received a call from [facility] [employer] and they will be here around 5:00pm. SW notified nurse and pt.
--- NOTE | 2024-08-14 14:08 | CM.DCFOLLOWU ---
1st attempt 08/14/24, no answer
--- NOTE | 2024-08-15 13:58 | CM.NOTE ---
Call to Nitza Del Toro's office to notify of abnormal sputum results. Luis with appointment on July. Dr. Elkins notified in Nitza Del Toro's abscence.
== END 2024-08-13 17:08 | disposition home or self-care (01) | DRG 871 ==
LOC: ER 12:07 → ICU 13:02 → MS 08-10 12:09
PROVIDERS: Admitting Provider Family Medicine; Emergency Provider Emergency Medicine; PCP Nurse Practitioner Family; Visit Provider Family Medicine
DX: A41.9 Sepsis, unspecified organism (principal); J18.9 Pneumonia, unspecified organism; J96.21 Acute and chronic respiratory failure with hypoxia; J47.9 Bronchiectasis, uncomplicated; Y95 Nosocomial condition; R73.9 Hyperglycemia, unspecified; T38.0X5A Adverse effect of glucocorticoids and synthetic analogues, initial encounter; F12.10 Cannabis abuse, uncomplicated; F17.210 Nicotine dependence, cigarettes, uncomplicated; F41.8 Other specified anxiety disorders; D50.9 Iron deficiency anemia, unspecified; E83.42 Hypomagnesemia; F51.01 Primary insomnia; K21.9 Gastro-esophageal reflux disease without esophagitis; Z86.16 Personal history of COVID-19; Z99.81 Dependence on supplemental oxygen; Z79.899 Other long term (current) drug therapy; Z79.51 Long term (current) use of inhaled steroids; Z88.0 Allergy status to penicillin; Z91.199 Patient's noncompliance with other medical treatment and regimen due to unspecified reason
CPT/HCPCS: 36415; 71045; 71260; 80048; 80053; 80202; 80307; 80320; 82948; 83605; 83735; 84484; 85007; 85025; 85027; 87040; 87070; 87106; 87205; 87804; 87811; 93005; 94640; 94667; 94668; 94761; 94799; 96365; 96367; 96375; 99285; J0743; J1650; J2919; J3370; J3475; Q9967

== ENCOUNTER 2024-08-16 17:09 | Emergency (ER) | payer MEDICARE, SELFPAY ==
[2024-08-16 17:11] VITALS: BP 132/79; PULSE 95; TEMP 36.7; O2SAT 98; BMI 18.2
[2024-08-16 17:19] VITALS: O2SAT 98
[2024-08-16 17:22] VITALS: O2SAT 98
--- NOTE | 2024-08-16 17:29 | ED_ITS ---
HPI HPI - General Adult General Chief complaint: Recheck/Abnormal Lab/Rx Stated complaint: SOB Time Seen by Provider: 08/16/24 17:17 Source: patient Mode of arrival: walk-in Limitations: no limitations History of Present Illness HPI narrative: Patient is a 33-year-old male with a history of asthma presents for a medication refill and a nebulizer and mask. He states he accidentally ruined his mask and nebulizer while trying to clean. Patient shows no other signs of distress Related Data Home Medications ?Medication ?Instructions ?Recorded ?Confirmed trazodone 50 mg tablet 50 mg PO BEDTIME PRN sleep 09/13/23 08/09/24 omeprazole 40 mg capsule,delayed 40 mg PO .BIDAC 05/13/24 08/09/24 release escitalopram oxalate 10 mg tablet 10 mg PO DAILY 08/07/24 08/09/24 budesonide-formoterol HFA 160 2 puff inhalation Q12H 08/09/24 08/09/24 mcg-4.5 mcg/actuation aerosol inhaler esomeprazole magnesium 40 mg 40 mg PO Q12H 08/09/24 08/09/24 capsule,delayed release pantoprazole 40 mg tablet,delayed 40 mg PO DAILY 08/09/24 08/09/24 release Previous Rx's ?Medication ?Instructions ?Recorded albuterol sulfate 2.5 mg/3 mL 2.5 mg (3 mL) inhalation Q6H PRN 05/25/23 (0.083 %) solution for nebulization shortness of breath or wheezing #75 mL albuterol sulfate 90 mcg/actuation 1 inh inhalation Q4H PRN shortness 03/22/24 aerosol inhaler of breath or wheezing #8.5 grams ondansetron 4 mg disintegrating 4 mg PO Q4H PRN nausea and 08/03/24 tablet vomiting 3 days #6 tabs levofloxacin 500 mg tablet 500 mg PO DAILY 7 days #7 tabs 08/08/24 prednisone 10 mg tablet 30 mg (3 x 10 mg) PO DAILY #20 tabs 08/08/24 clindamycin HCl 300 mg capsule 300 mg PO Q6H 10 days #40 caps 08/13/24 albuterol sulfate 2.5 mg/3 mL 2.5 mg (3 mL) inhalation Q6H PRN 08/16/24 (0.083 %) solution for nebulization shortness of breath or wheezing #75 mL Allergies Allergy/AdvReac Type Severity Reaction Status Date / Time Penicillins Allergy Intermediate Hives Verified 08/04/24 23:30 Opioid HPI Opioid Management Most Recent Opioid Data: Last Pain Scale 5 08/11/24 00:07 08/11/24 Last Pain Assessment 08/13/24 16:19 Last ORT Total Score 7 08/09/24 13:12 08/09/24 Last ORT Risk Category Moderate Risk 08/09/24 13:12 08/09/24 Ur Phencyclidine Scrn Negative (NEGATIVE) 08/09/24 11:49 07/26 10/19 Review of Systems ROS Status of ROS 10 or more systems reviewed and unremark able except as noted in history and below [facility] Medical History Insomnia ?G47.00 - Insomnia, unspecified (ICD-10) Hypernatremia ?E87.0 - Hyperosmolality and hypernatremia (ICD-10) Right lower lobe pneumonia ?J18.9 - Pneumonia, unspecified organism (ICD-10) Lactic acidosis ?E87.20 - Acidosis, unspecified (ICD-10) Chronic hypoxic respiratory failure, on home oxygen therapy ?J96.11 - Chronic respiratory failure with hypoxia (ICD-10) ?Z99.81 - Dependence on supplemental oxygen (ICD-10) Asthma exacerbation ?J45.901 - Unspecified asthma with (acute) exacerbation (ICD-10) Upper respiratory infection ?J06.9 - Acute upper respiratory infection, unspecified (ICD-10) Esophagitis with gastritis ?K29.70 - Gastritis, unspecified, without bleeding (ICD-10) ?K20.90 - Esophagitis, unspecified without bleeding (ICD-10) Leukocytosis ?D72.829 - Elevated white blood cell count, unspecified (ICD-10) Dyspnea ?R06.00 - Dyspnea, unspecified (ICD-10) Hypoxia ?R09.02 - Hypoxemia (ICD-10) Bronchiectasis with acute exacerbation ?J47.1 - Bronchiectasis with (acute) exacerbation (ICD-10) Depression with anxiety ?F41.8 - Other specified anxiety disorders (ICD-10) Steroid-induced hyperglycemia ?R73.9 - Hyperglycemia, unspecified (ICD-10) ?T38.0X5A - Adverse effect of glucocorticoids and synthetic analogues, initial encounter (ICD-10) Hyponatremia ?E87.1 - Hypo-osmolality and hyponatremia (ICD-10) Chest wall pain ?R07.89 - Other chest pain (ICD-10) Pneumonia ?J18.9 - Pneumonia, unspecified organism (ICD-10) Malnutrition of moderate degree ?E44.0 - Moderate protein-calorie malnutrition (ICD-10) Depression ?F32.A - Depression, unspecified (ICD-10) Bronchiectasis ?J47.9 - Bronchiectasis, uncomplicated (ICD-10) Chronic respiratory failure with hypoxia ?J96.11 - Chronic respiratory failure with hypoxia (ICD-10) Upper respiratory infection ?J06.9 - Acute upper respiratory infection, unspecified (ICD-10) Acute hypokalemia ?E87.6 - Hypokalemia (ICD-10) Avulsion of skin ?T14.8XXA - Other injury of unspecified body region, initial encounter (ICD- 10) Influenza ?J11.1 - Influenza due to unidentified influenza virus with other respiratory manifestations (ICD-10) Marijuana abuse ?F12.10 - Cannabis abuse, uncomplicated (ICD-10) Acute hypoxic respiratory failure ?J96.01 - Acute respiratory failure with hypoxia (ICD-10) Coronavirus infection ?B34.2 - Coronavirus infection, unspecified (ICD-10) Pneumonia ?J18.9 - Pneumonia, unspecified organism (ICD-10) Hospital-acquired bacterial pneumonia ?J15.9 - Unspecified bacterial pneumonia (ICD-10) COVID-19 ?U07.1 - COVID-19 (ICD-10) GERD (gastroesophageal reflux disease) ?K21.9 - Gastro-esophageal reflux disease without esophagitis (ICD-10) 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 - Pyothorax with fistula (ICD-10) Shortness of breath ?R06.02 - Shortness of breath (ICD-10) Chronic dyspnea ?R06.09 - Other forms of dyspnea (ICD-10) Viral infection ?B34.9 - Viral infection, unspecified (ICD-10) Hypoxia ?R09.02 - Hypoxemia (ICD-10) Acute asthma exacerbation ?J45.901 - Unspecified asthma with (acute) exacerbation (ICD-10) Bronchitis ?J40 - Bronchitis, not specified as acute or chronic (ICD-10) History of home oxygen therapy ?Z99.81 - Dependence on supplemental oxygen (ICD-10) Oxygen desaturation during sleep ?G47.34 - 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) History of gastrostomy tube placement Abdominal pain, acute ?R10.9 - Unspecified abdominal pain (ICD-10) Surgical History History of fundoplication ?Z98.890 - Other specified postprocedural states (ICD-10) History of appendectomy ?Z90.49 - Acquired absence of other specified parts of digestive tract (ICD- 10) H/O chest tube placement ?Z98.890 - Other specified postprocedural states (ICD-10) History of facial surgery ?Z98.890 - Other specified postprocedural states (ICD-10) Family History Mother Family history of diabetes mellitus Family history of hypertension Grandmother Family history of diabetes mellitus Grandfather Family history of myocardial infarction Social History Within the past year, how often did you have a drink containing alcohol: monthly or less Within the past year, how many standard drinks containing alcohol did you have on a typical day: 1 or 2 Within the past year, how often did you have six or more drinks on one occasion: less than monthly Total score: 1 Score interpretation: A score less than 4 is consistent with normal alcohol consumption. Smoking status: Former smoker Nicotine containing products detail: quit smoking 4 months ago Non-prescribed substance use: cannabis (any form) Previous occupational history: [employer] Known occupational exposures/hazards: No Highest level of school completed/degree received: high school graduate Are you now , , , , never or living with a partner: In a typical week, how many times do you talk on the telephone with family, friends, or neighbors: 3 or more times per week How often do you get together with friends or relatives: once per week How often do you attend catholic or taoism services: never Do you belong to any clubs or organizations such as catholic groups unions, fraternal or athletic groups, or school groups: no Total score: 1 Score interpretation: A score of less than or equal to 1 indicates the most socially isolated. Little interest or pleasure in doing things: not at all Feeling down, depressed, or hopeless: not at all Feel stressed/tense/nervous/anxious/difficulty sleeping: not at all Do you think of yourself as: straight/heterosexual Gender Identity: male Exam Narrative Exam Narrative: All Systems are negative except as noted/marked.All systems reviewed and otherwise negative Nurses note and vital signs reviewed and patient is not hypoxic. General: The patient appears well and in no apparent distress. Patient is resting comfortably on cart. Skin: Warm, dry, no pallor noted. There is no rash noted. Head: Normocephalic, atraumatic Eye: Normal conjunctiva, no drainage, EOMI. PERRL Ears, Nose, Mouth, and Throat: oral mucosa is moist. Nares patent. Mouth without vesicles. Ear canals patent. Tm's without Erythema Cardiovascular: Regular Rate and Rhythm Respiratory: Patient is in no distress, no accessory muscle use, lungs are clear to auscultation, no wheezing, rales or rhonchi Back: non-tender, no CVA tenderness bilaterally to percussion. GI: Normal bowel sounds, no tenderness to palpation, no masses appreciated. No rebound, guarding, or rigidity noted. Musculoskeletal: The patient has no evidence of calf tenderness, no pitting edema, symmetrical pulses noted bilaterally Neurological: A&O x4, normal speech Psychiatric: Cooperative Constitutional Vital Signs, click to edit/add: Last Vital Signs Temp 98.1 F 08/16/24 17:11 Pulse 95 H 08/16/24 17:11 Resp 18 08/16/24 17:11 BP 132/79 08/16/24 17:11 Pulse Ox 98 08/16/24 17:22 O2 Del Method Room Air 08/16/24 17:22 Course Vital Signs Vital signs: Vital Signs Temperature 98.1 F 08/16/24 17:11 Pulse Rate 95 H 08/16/24 17:11 Respiratory Rate 18 08/16/24 17:11 Blood Pressure 132/79 08/16/24 17:11 Pulse Oximetry 98 08/16/24 17:11 Oxygen Delivery Method Room Air 08/16/24 17:11 Temperature 98.1 F 08/16/24 17:11 Pulse Rate 95 H 08/16/24 17:11 Respiratory Rate 18 08/16/24 17:11 Blood Pressure 132/79 08/16/24 17:11 Pulse Oximetry 98 08/16/24 17:22 Oxygen Delivery Method Room Air 08/16/24 17:22 Medical Decision Making MDM Narrative Medical decision making narrative: Here in need of equipment and medication refill. Patient will be discharged to home. Follow-up with primary care physician. Albuterol nebulizer and mask were provided. Patient also given a prescription for albuterol. Differential Diagnosis Differential Diagnosis: Medication, equipment refill Medical Records Medical records reviewed: Yes I reviewed the patient's medical records Discharge Plan Discharge Chief Complaint: Recheck/Abnormal Lab/Rx Clinical Impression: Medication refill Patient Disposition: Home, Self-Care Time of Disposition Decision: 17:28 Condition: Good Prescriptions / Home Meds: New albuterol sulfate 2.5 mg /3 mL (0.083 %) solution for nebulization 2.5 mg inhalation Q6H PRN (Reason: shortness of breath or wheezing) Qty: 75 1RF No Action trazodone 50 mg tablet 50 mg PO BEDTIME PRN (Reason: sleep) albuterol sulfate 90 mcg/actuation HFA aerosol inhaler 1 inh inhalation Q4H PRN (Reason: shortness of breath or wheezing) Qty: 8.5 0RF ondansetron 4 mg tablet,disintegrating 4 mg PO Q4H PRN (Reason: nausea and vomiting) 3 Days Qty: 6 0RF albuterol sulfate 2.5 mg /3 mL (0.083 %) solution for nebulization 2.5 mg inhalation Q6H PRN (Reason: shortness of breath or wheezing) Qty: 75 0RF omeprazole 40 mg capsule,delayed release(DR/EC) 40 mg PO .BIDAC escitalopram oxalate 10 mg tablet 10 mg PO DAILY prednisone 10 mg tablet 30 mg PO DAILY Qty: 20 0RF Rx Instructions: 3/day for 3 days, 2/day for 3 days, 1/day for 3 days, 1/2 /day for 4 days levofloxacin 500 mg tablet 500 mg PO DAILY 7 Days Qty: 7 0RF budesonide-formoterol 160-4.5 mcg/actuation HFA aerosol inhaler 2 puff INHALATION Q12H esomeprazole magnesium 40 mg capsule,delayed release(DR/EC) 40 mg PO Q12H pantoprazole 40 mg tablet,delayed release (DR/EC) 40 mg PO DAILY clindamycin HCl 300 mg capsule 300 mg PO Q6H 10 Days Qty: 40 0RF Print Language: Sri Lankan Instructions: Medicine Refill (ED) Referrals: REBEKAH BARBOZA [Primary Care Provider] - 1 week
== END 2024-08-16 17:36 | disposition home or self-care (01) ==
PROVIDERS: Emergency Provider Emergency Medicine; PCP Nurse Practitioner Family
DX: Z76.0 Encounter for issue of repeat prescription (principal); J45.909 Unspecified asthma, uncomplicated; Z90.49 Acquired absence of other specified parts of digestive tract; Z87.891 Personal history of nicotine dependence
CPT/HCPCS: 99283

== ENCOUNTER 2025-02-07 20:14 | Emergency (ER) | payer MEDICARE, MEDICAID, SELFPAY ==
[2025-02-07 20:39] VITALS: BP 117/76; PULSE 83; TEMP 37.3; O2SAT 96; BMI 22.7
--- NOTE | 2025-02-07 21:27 | ED_ITS ---
HPI - Abdominal Pain General Chief Complaint: Abdominal Pain Stated Complaint: ABDOMINAL & BACK PAIN Time Seen by Provider: 02/07/25 21:21 Source: patient Mode of arrival: walk-in History of Present Illness HPI narrative: patient presents complaining of bilat flank pain and bilat lower quad pain. States last normal BM over a week ago. No nausea or vomiting. Has pressure at his bladder also. No dysuria. States he is only passing small BMs. Denies past history of constipation. past history of bronchiectasis and associated dyspnea Related Data Home Medications ?Medication ?Instructions ?Recorded ?Confirmed trazodone 50 mg tablet 50 mg PO BEDTIME PRN sleep 0 09/13/23 08/09/24 omeprazole 40 mg capsule,delayed 40 mg PO .BIDAC 05/1308/09/24 release escitalopram oxalate 10 mg tablet 10 mg PO DAILY 08/0708/09/24 budesonide-formoterol HFA 160 2 puff inhalation Q12H 0 08/09/24 08/09/24 mcg-4.5 mcg/actuation aerosol inhaler esomeprazole magnesium 40 mg 40 mg PO Q12H 08/09/24 capsule,delayed release pantoprazole 40 mg tablet,delayed 40 mg PO DAILY 08/0908/09/24 release Previous Rx's ?Medication ?Instructions ?Recorded albuterol sulfate 2.5 mg/3 mL 2.5 mg (3 mL) inhalation Q6H PRN 05/25/23 (0.083 %) solution for nebulization shortness of breat h or wheezing #75 mL albuterol sulfate 90 mcg/actuation 1 inh inhalation Q4 H PRN shortness 03/22/24 aerosol inhaler of breath or wheezing #8.5 g glenis ondansetron 4 mg disintegrating 4 mg PO Q4H PRN nausea and 08/03/24 tablet vomiting 3 days #6 tabs levofloxacin 500 mg tablet 500 mg PO DAILY 7 days #7 t abs 08/08/24 prednisone 10 mg tablet 30 mg (3 x 10 mg) PO DAILY # 20 tabs 08/08/24 clindamycin HCl 300 mg capsule 300 mg PO Q6H 10 days # 40 caps 08/13/24 albuterol sulfate 2.5 mg/3 mL 2.5 mg (3 mL) inhalation Q6H PRN 08/16/24 (0.083 %) solution for nebulization shortness of breat h or wheezing #75 mL Allergies Allergy/AdvReac Type Severity Reaction Status Date / Time Penicillins Allergy Intermediate Hives Verified 08/04/24 23:30 Review of Systems ROS Status of ROS 10 or more systems reviewed and unremark able except as noted in history and below [facility] Medical History Insomnia ?G47.00 - Insomnia, unspecified (ICD-10) Hypernatremia ?E87.0 - Hyperosmolality and hypernatremia (ICD-10) Right lower lobe pneumonia ?J18.9 - Pneumonia, unspecified organism (ICD-10) Lactic acidosis ?E87.20 - Acidosis, unspecified (ICD-10) Chronic hypoxic respiratory failure, on home oxygen therapy ?J96.11 - Chronic respiratory failure with hypoxia (ICD-10) ?Z99.81 - Dependence on supplemental oxygen (ICD-10) Asthma exacerbation ?J45.901 - Unspecified asthma with (acute) exacerbation (ICD-10) Upper respiratory infection ?J06.9 - Acute upper respiratory infection, unspecified (ICD-10) Esophagitis with gastritis ?K29.70 - Gastritis, unspecified, without bleeding (ICD-10) ?K20.90 - Esophagitis, unspecified without bleeding (ICD-10) Leukocytosis ?D72.829 - Elevated white blood cell count, unspecified (ICD-10) Dyspnea ?R06.00 - Dyspnea, unspecified (ICD-10) Hypoxia ?R09.02 - Hypoxemia (ICD-10) Bronchiectasis with acute exacerbation ?J47.1 - Bronchiectasis with (acute) exacerbation (ICD-10) Depression with anxiety ?F41.8 - Other specified anxiety disorders (ICD-10) Steroid-induced hyperglycemia ?R73.9 - Hyperglycemia, unspecified (ICD-10) ?T38.0X5A - Adverse effect of glucocorticoids and synthetic analogues, initial encounter (ICD-10) Hyponatremia ?E87.1 - Hypo-osmolality and hyponatremia (ICD-10) Chest wall pain ?R07.89 - Other chest pain (ICD-10) Pneumonia ?J18.9 - Pneumonia, unspecified organism (ICD-10) Malnutrition of moderate degree ?E44.0 - Moderate protein-calorie malnutrition (ICD-10) Depression ?F32.A - Depression, unspecified (ICD-10) Bronchiectasis ?J47.9 - Bronchiectasis, uncomplicated (ICD-10) Chronic respiratory failure with hypoxia ?J96.11 - Chronic respiratory failure with hypoxia (ICD-10) Upper respiratory infection ?J06.9 - Acute upper respiratory infection, unspecified (ICD-10) Acute hypokalemia ?E87.6 - Hypokalemia (ICD-10) Avulsion of skin ?T14.8XXA - Other injury of unspecified body region, initial encounter (ICD- 10) Influenza ?J11.1 - Influenza due to unidentified influenza virus with other respiratory manifestations (ICD-10) Marijuana abuse ?F12.10 - Cannabis abuse, uncomplicated (ICD-10) Acute hypoxic respiratory failure ?J96.01 - Acute respiratory failure with hypoxia (ICD-10) Coronavirus infection ?B34.2 - Coronavirus infection, unspecified (ICD-10) Pneumonia ?J18.9 - Pneumonia, unspecified organism (ICD-10) Hospital-acquired bacterial pneumonia ?J15.9 - Unspecified bacterial pneumonia (ICD-10) COVID-19 ?U07.1 - COVID-19 (ICD-10) GERD (gastroesophageal reflux disease) ?K21.9 - Gastro-esophageal reflux disease without esophagitis (ICD-10) 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 - Pyothorax with fistula (ICD-10) Shortness of breath ?R06.02 - Shortness of breath (ICD-10) Chronic dyspnea ?R06.09 - Other forms of dyspnea (ICD-10) Viral infection ?B34.9 - Viral infection, unspecified (ICD-10) Hypoxia ?R09.02 - Hypoxemia (ICD-10) Acute asthma exacerbation ?J45.901 - Unspecified asthma with (acute) exacerbation (ICD-10) Bronchitis ?J40 - Bronchitis, not specified as acute or chronic (ICD-10) History of home oxygen therapy ?Z99.81 - Dependence on supplemental oxygen (ICD-10) Oxygen desaturation during sleep ?G47.34 - 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) History of gastrostomy tube placement Abdominal pain, acute ?R10.9 - Unspecified abdominal pain (ICD-10) Surgical History History of fundoplication ?Z98.890 - Other specified postprocedural states (ICD-10) History of appendectomy ?Z90.49 - Acquired absence of other specified parts of digestive tract (ICD- 10) H/O chest tube placement ?Z98.890 - Other specified postprocedural states (ICD-10) History of facial surgery ?Z98.890 - Other specified postprocedural states (ICD-10) Family History Mother Family history of diabetes mellitus Family history of hypertension Grandmother Family history of diabetes mellitus Grandfather Family history of myocardial infarction Social History Within the past year, how often did you have a drink containing alcohol: monthly or less Within the past year, how many standard drinks containing alcohol did you have on a typical day: 1 or 2 Within the past year, how often did you have six or more drinks on one occasion: less than monthly Total score: 1 Score interpretation: A score less than 4 is consistent with normal alcohol consumption. 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 [employer] Known occupational exposures/hazards: No Highest level of school completed/degree received: high school graduate Are you now , , , , never or living with a partner: In a typical week, how many times do you talk on the telephone with family, friends, or neighbors: 3 or more times per week How often do you get together with friends or relatives: once per week How often do you attend episcopalian or roman catholic services: never Do you belong to any clubs or organizations such as episcopalian groups unions, fraternal or athletic groups, or school groups: no Total score: 1 Score interpretation: A score of less than or equal to 1 indicates the most socially isolated. Little interest or pleasure in doing things: not at all Feeling down, depressed, or hopeless: not at all Feel stressed/tense/nervous/anxious/difficulty sleeping: not at all Do you think of yourself as: straight/heterosexual Gender Identity: male Exam Constitutional Vital Signs, click to edit/add: Last Vital Signs Temp 99.1 F 02/07/25 20:39 Pulse 83 02/07/25 20:39 Resp 16 02/07/25 20:39 BP 117/76 02/07/25 20:39 Pulse Ox 96 02/07/25 20:39 O2 Del Method Room Air 02/07/25 20:39 Common normals: no apparent distress, average body habitus, oriented x3, no limitations, healthy appearing, alert and well nourished HENID Common normals: normocephalic and head/scalp atraumatic Eye Common normals: EOMs intact bilaterally and conjunctivae normal Respiratory Common normals: normal respiratory effort and no use of accessory muscles Other: faint crackles in his chest-diffuse Cardio Common normals: regular rate, regular rhythm, S1 normal heart sound and S2 normal heart sound GI Common normals: Normal to inspection, nondistended, normoactive bowel sounds present and soft to palpation Other: bilat mild tenderness. Back & Pelvis General back: CVA tenderness CVA tenderness: bilateral Extremity Common normals: normal to inspection and full ROM Neuro Common normals: oriented x3, CN's II-XII intact bilaterally, moves all extremities, no focal motor deficits and no sensory deficits noted Psych Appearance: grossly normal Course Vital Signs Vital signs: Vital Signs Temperature 99.1 F 02/07/25 20:39 Pulse Rate 83 02/07/25 20:39 Respiratory Rate 16 02/07/25 20:39 Blood Pressure 117/76 02/07/25 20:39 Pulse Oximetry 96 02/07/25 20:39 Oxygen Delivery Method Room Air 02/07/25 20:39 Temperature 99.1 F 02/07/25 20:39 Pulse Rate 83 02/07/25 20:39 Respiratory Rate 16 02/07/25 20:39 Blood Pressure 117/76 02/07/25 20:39 Pulse Oximetry 96 02/07/25 20:39 Oxygen Delivery Method Room Air 02/07/25 20:39 MDM - Abdominal Pain MDM Narrative Medical decision making narrative: patient presents complaining of abdominal pain and constipation. History of bronchiectasis. Abdomen with bilat. lower quad tenderness without guarding. WBC 6.1. UA neg. CT abd. with findings of mild constipation but also airspace consolidation lower lingula with air bronchogras c/w pnemonia and small left pleural effusion. Patient advised of the following. Given dose of levaquin and bottle of mag citrate. Discharged home with levaquin and a prescription for colace Lab Data Labs: Lab Results 02/07/25 02/07/25 Range/Units 21:55 22:00 WBC 6.1 (4.0-11.0) 10^3/uL RBC 5.31 (4.70-6.10) 10^6/uL Hgb 15.1 (14.0-18.0) g/dL Hct 45.2 (42.0-54.0) % MCV 85.1 (80.0-94.0) fL MCH 28.4 (25.9-34.0) pg MCHC 33.4 (29.9-35.2) g/dL RDW 13.6 (11.0-15.0) % Plt Count 281 (150-450) 10^3/uL MPV 11.5 (9.5-13.5) fL Neut % (Auto) 55.2 (43.0-75.0) % Lymph % (Auto) 29.4 (20.5-60.0) % [place] % (Auto) 11.9 (1.7-12.0) % Eos % (Auto) 1.5 (0.9-7.0) % Baso % (Auto) 1.8 (0.2-2.0) % Neut # (Auto) 3.4 (1.4-6.5) 10^3/uL Lymph # (Auto) 1.8 (1.2-3.8) 10^3/uL [place] # (Auto) 0.7 (0.3-0.8) 10^3/uL Eos # (Auto) 0.1 (0.0-0.7) 10^3/uL Baso # (Auto) 0.1 (0.0-0.1) 10^3/uL Abs Immat Gran (auto) 0.01 (0.00-0.03) 10^3/uL Imm/Tot Granulo (auto) 0.2 (0.0-0.5) % Sodium 144 (136-145) mmol/L Potassium 3.6 (3.5-5.1) mmol/L Chloride 107 (98-107) mmol/L Carbon Dioxide 29.1 (21.0-32.0) mmol/L Anion Gap 11.5 BUN 11.0 (7.0-18.0) mg/dL Creatinine 0.80 (0.70-1.30) mg/dL Est GFR ( Amer) >60 (>=60 mL/min/1.73m^2) Est GFR (Non-Af Amer) >60 (>=60 mL/min/1.73m^2) BUN/Creatinine Ratio 13.8 Glucose 76 (74-106) mg/dL Lactate 1.0 (0.4-2.0) mmol/L Calcium 8.3 L (8.5-10.1) mg/dL Total Bilirubin 0.4 (0.2-1.0) mg/dL AST 14 L (15-37) U/L ALT 18 (16-63) U/L Alkaline Phosphatase 97 (46-116) U/L Total Protein 7.0 (6.4-8.2) g/dL Albumin 3.7 (3.4-5.0) g/dL Globulin 3.3 g/dL Albumin/Globulin Ratio 1.1 Lipase 38.0 (16.0-77.0) U/L Urine Color Yellow (YELLOW) Urine Clarity Sl cloudy (CLEAR) Urine pH 6.5 (5.0-9.0) Ur Specific [place] 1.025 (1.005-1.025) Urine Protein Negative (NEG/TRACE) mg/dL Urine Glucose (UA) Negative (NEGATIVE) mg/dL Urine Ketones Negative (NEGATIVE) mg/dL Urine Occult Blood Negative (NEGATIVE) Urine Nitrite Negative (NEGATIVE) Urine Bilirubin Negative (NEGATIVE) Urine Urobilinogen 1.0 (0.2-1.0) EU/dL Ur Leukocyte Esterase Negative (NEGATIVE) Urine RBC 2-5 A (0-2) #/HPF Urine WBC 0-2 A (NONE SEEN) #/HPF Ur Squamous Epith Cells None seen (NONE/RARE) #/LPF Urine Crystals Seen A (None Seen) #/HPF Amorphous Sediment Rare Urine Bacteria Trace A (NONE SEEN) #/HPF Urine Casts None seen (NONE SEEN) #/LPF Urine Mucus None seen (NONE SEEN) Ur Culture Indicated? No Discharge Plan Discharge Chief Complaint: Abdominal Pain Clinical Impression: Pneumonia involving left lung, Pleural effusion on left, Constipation Patient Disposition: Home, Self-Care Prescriptions / Home Meds: No Action trazodone 50 mg tablet 50 mg PO BEDTIME PRN (Reason: sleep) albuterol sulfate 90 mcg/actuation HFA aerosol inhaler 1 inh inhalation Q4H PRN (Reason: shortness of breath or wheezing) Qty: 8.5 0RF ondansetron 4 mg tablet,disintegrating 4 mg PO Q4H PRN (Reason: nausea and vomiting) 3 Days Qty: 6 0RF albuterol sulfate 2.5 mg /3 mL (0.083 %) solution for nebulization 2.5 mg inhalation Q6H PRN (Reason: shortness of breath or wheezing) Qty: 75 1RF albuterol sulfate 2.5 mg /3 mL (0.083 %) solution for nebulization 2.5 mg inhalation Q6H PRN (Reason: shortness of breath or wheezing) Qty: 75 0RF omeprazole 40 mg capsule,delayed release(DR/EC) 40 mg PO .BIDAC escitalopram oxalate 10 mg tablet 10 mg PO DAILY prednisone 10 mg tablet 30 mg PO DAILY Qty: 20 0RF Rx Instructions: 3/day for 3 days, 2/day for 3 days, 1/day for 3 days, 1/2 /day for 4 days levofloxacin 500 mg tablet 500 mg PO DAILY 7 Days Qty: 7 0RF budesonide-formoterol 160-4.5 mcg/actuation HFA aerosol inhaler 2 puff INHALATION Q12H esomeprazole magnesium 40 mg capsule,delayed release(DR/EC) 40 mg PO Q12H pantoprazole 40 mg tablet,delayed release (DR/EC) 40 mg PO DAILY clindamycin HCl 300 mg capsule 300 mg PO Q6H 10 Days Qty: 40 0RF Print Language: Dutch Instructions: Constipation (ED), Community Acquired Pneumonia (ED) Additional Instructions: follow up with your doctor early next week for recheck Referrals: REBEKAH BARBOZA [Primary Care Provider, Family Practice] - 1 week
[2025-02-07] MEDS: 0.9 % SODIUM CHLORIDE 1,000 ML 999 ML IV (22:05)
[2025-02-07 22:16] LABS: Hematocrit 45.2 % (42.0-54.0); Hemoglobin 15.1 g/dL (14.0-18.0); Immature Granulocytes Abs Auto 0.01 10^3/uL (0.00-0.03); Immature Granulocytes Pct Auto 0.2 % (0.0-0.5); Lymphocytes Absolute Auto 1.8 10^3/uL (1.2-3.8); Mean Corpuscular HGB Conc 33.4 g/dL (29.9-35.2); Mean Corpuscular Hemoglobin 28.4 pg (25.9-34.0); Mean Corpuscular Volume 85.1 fL (80.0-94.0); Platelet Count 281 10^3/uL (150-450); Red Blood Count 5.31 10^6/uL (4.70-6.10); White Blood Count 6.1 10^3/uL (4.0-11.0)
[2025-02-07 22:22] LABS: Glucose Urine UA NEGATIVE (NEGATIVE)
[2025-02-07 22:31] LABS: Alanine Aminotransferase 18 U/L (16-63); Albumin Globulin Ratio 1.1; Albumin Level 3.7 g/dL (3.4-5.0); Alkaline Phosphatase 97 U/L (46-116); Anion Gap 11.5; Aspartate Amino Transferase 14 U/L (15-37); Blood Urea Nitrogen 11.0 mg/dL (7.0-18.0); Calcium 8.3 mg/dL (8.5-10.1); Carbon Dioxide 29.1 mmol/L (21.0-32.0); Chloride 107 mmol/L (98-107); Estimated GFR (African America >60 (>=60 mL/min/1.73m^2); Estimated GFR (Non-African Ame >60 (>=60 mL/min/1.73m^2); Globulin 3.3 g/dL; Glucose 76 mg/dL (74-106); Lipase 38.0 U/L (16.0-77.0); Potassium 3.6 mmol/L (3.5-5.1); Sodium 144 mmol/L (136-145); Total Protein 7.0 g/dL (6.4-8.2)
[2025-02-07 22:33] LABS: Crystals Seen? Seen #/HPF (None Seen)
[2025-02-07 22:34] LABS: Cast Seen? NONE SEEN #/LPF (NONE SEEN); Urine Culture Indicated NO
[2025-02-07 22:51] LABS: Lactate/Lactic Acid 1.0 mmol/L (0.4-2.0)
[2025-02-08] MEDS: MAGNESIUM CITRATE 296 ML SOLUTION PO (01:25)
[2025-02-08] MEDS: LEVOFLOXACIN IN DEXTROSE 5 % 500 MG/100 ML PREMIX 100 MG IV (01:25)
== END 2025-02-08 02:38 | disposition home or self-care (01) ==
PROVIDERS: Emergency Provider Internal Medicine; PCP Nurse Practitioner Family
DX: J18.9 Pneumonia, unspecified organism (principal); K59.00 Constipation, unspecified; Z87.891 Personal history of nicotine dependence; J90 Pleural effusion, not elsewhere classified; J47.0 Bronchiectasis with acute lower respiratory infection
CPT/HCPCS: 36415; 74177; 80053; 81001; 83605; 83690; 85025; 96365; 99284; Q9967

== ENCOUNTER 2025-02-24 09:45 | Inpatient (IN) | payer MEDICARE, MEDICAID, SELFPAY ==
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
--- OUTSIDE RECORDS SUMMARY | 2024-03-24 06:00 | XMS_ITS ---
Author Organization [facility] vices Address [address] [place] [id number] Care Team Providers Care Dinkey Driver Name Role Phone Naun Arora Primary Care Provider [phone] REASON FOR VISIT Wellness Social History Sex Assigned At : Social History Observation Description Sex Assigned At Male Encounters Encounter Location Date Provider Diagnosis [place] [address] [facility] [place] [address] 03/24/2024 Naun Arora Plan Of Treatment No Information Progress Notes * Antoinette GALVEZOB:1990 ([age] yo M)Acc No.[id number]:03/24/2024 Medical Note Patient: Luis VALENZUELA Provider: NADEEN Wheatley :1990 A ge:33 Y S ex:Male Date:03/24/2024 Address:[address] [id number] Subjective: * Chief Complaints: * 1 . Wellness. * Medical History: Objective: * Vitals: Assessment: Plan: * Treatment: * Billing Information: * Visit Code: * Procedure Codes: * Electronic signature of Bar Arora NP on 02/24/2025 at 09:57 AM EDT Sign off status: Pending * Provider: NADEEN Wheatley Date: 1 Generated for Printi ng/Faxing/eTransmitting on: 0 02/24/2025 09:57 AM EDT
--- OUTSIDE RECORDS SUMMARY | 2024-09-09 05:32 | XMS_ITS | Continuity of Care Document ---
Demographics Address [address] [facility] [address] [place] [address] Home Phone Preferred Language en Marital Status Unknown Episcopal Affiliation Unknown Race Unknown Additional Race(s) Other Race Ethnic Group Unknown Author Organization [facility] Address [address] [place] [address] Phone Care Team Providers Care Bridge Crew Member Name Role Phone Rani Polanco Unavailable Unavailable [...] - Active Procedures Procedure Date Acute Detox Bingo Cashier ROUTINE VENIPUNCTURE DRUG TEST PRSMV DIR OPT OBS Bitewings-two Films Intraoral-periapical 1st Film [id number]-[id number] Additional Aug Oral Hygiene Instruction Oral Hygiene Instruction Limited Oral Eval Extract; Erupted Th/exposted Rt -2 025 Acute Detox Bingo Cashier Acute Detox Bingo Cashier Acute Detox Bingo Cashier Acute Detox Bingo Cashier Acute Detox Bingo Cashier ASSAY OF BREATH ETHANOL COVID-19 Antigen Test DRUG TEST PRSMV DIR OPT OBS Acute Detox Bingo Cashier Advance Directives Directive Yes / No Effective Date File Name No Information Encounters Encounter Description Practice Location Reason(s) For Visit Diagnoses Date Provider Providers Copied on Encounter [facility], [address] [place] [address], [id number] , [place] tel: [phone] [facility] No Information 5 Klidas Rani. [address] [place] [address], [id number] , [place]. tel: [phone] [facility], [address] [place] [address], [id number] , [place] tel: [phone] [facility] (chief complaint) Encounter for screening for dental disorders 5 Markus Blackman. . tel: [phone] [facility], [address] [place] [address], [id number] , [place] tel: [phone] [facility] No Information 5 Klidas Rani. [address] [place] [address], [id number] , [place]. tel: [phone] [facility], [address] [place] [address], [id number] , [place] tel: [phone] [facility] No Information 5 Klidas Rani. [address] [place] [address], [id number] , [place]. tel: [phone] [facility], [address] [place] [address], [id number] , [place] tel: [phone] [facility] No Information 5 Tyler Thompson. [address] [place] [address], [id number], [place]. tel: [phone] [facility], [address] [place] [address], [id number] , tel:+ [phone] [facility] Alcohol dependence with withdrawal, uncomplicatedBronchie ctasisTobacco use disorder, moderate Mar-2 3-202 3 Klidas Rani. [address], [place], [id number] , . tel:+ [phone] [facility], [address] [place] [address], [id number] , [place] tel:+ [phone] [facility] substance abuse (chief complaint) Alcohol dependence with withdrawal, uncomplicatedBronchie ctasisTobacco use disorder, moderate Mar-2 2-202 3 Klidas Rani. [address] [place] [address], [id number] , [place]. tel: [phone] [facility], [address] [place] [address], [id number] , tel: [phone] [facility] Alcohol dependence with withdrawal, uncomplicatedBronchie ctasisTobacco use disorder, moderate Mar-2 2-202 3 Klidas Rani. [address], [place], [id number] , [place]. tel: [phone] [facility], [address] [place] [address], [id number] , tel: [phone] [facility] Alcohol dependence with withdrawal, uncomplicatedEncounte r For Screening For Covid-19 Jul- 3 Klidas Rani. [address] [place] [address], [id number] , [place]. tel:+ [phone] Family History Family Member Type Diagnosis Age At Onset No Information Payers Payer name Insurance type Covered alliance party ID Authoriza tion(s) No Information Social History [...] on due Goal PRAPARE ASSESSMENT. Due on due Goal Tdap Vaccine. Due on 2022 due Goal Depression screening. Due on due Goal Influenza vaccine. Due on Pr due Goal Depression screening. Due on due Goal Tdap Vaccine. Due on 2022 due Goal Tdap. Due on due Goal PRAPARE ASSESSMENT. Due on due Goal RLP. Due on due Goal Influenza vaccine. Due on Pr due Goal Tdap Vaccine. Due on 2022 due Goal Depression screening. Due on due Goal RLP. Due on due Goal Influenza vaccine. Due on Pr due Goal PRAPARE ASSESSMENT. Due on due Goal Tdap. Due on due Goal Tdap. Due on due Goal PRAPARE ASSESSMENT. Due on M due Goal Influenza vaccine. Due on Ma r due Goal RLP. Due on due Goal Depression screening. Due on due Goal Hep A. Due on du e Goal Tdap Vaccine. Due on 2022 due History Of Present Illness Encounter Date [...] bronchiectasis, Anxiety and Depression. Pt was at [facility] for Alcohol withdraw on 08/15/22 and treated with benzos. Functional Status Date Functional Assessmen t No Information Instructions Date Instruction Additional Infor timmy Encourage PO fluids - Related to Alcohol dependence with withdrawal, uncomplicated Assessments Type Assessment Date No Information Patient Care Teams Name Effective Dates (start - stop) Status Members No Information
--- OUTSIDE RECORDS SUMMARY | 2025-01-08 09:30 | XMS_ITS ---
Author Organization [facility] in [place] Address [address] [place] [address] Care Team Providers Care Dumper Mold Cleaner Name Role Phone Neetu Del Toro Primary Care Provider REASON FOR VISIT multiple issues Encounters Encounter Location Date Provider Diagnosis [address] [address] 01/08/2025 Neetu Del Toro Plan Of Treatment Next Appt Details Provider Name:Neetu nickerson, 02/27/2025 01:30:00 PM, [address] [place] [address], [phone], Progress Notes * Luis GALVEZ TDOB:1990 (34 yo M)Acc No.[id number]:01/08/2025 UNLOCKED PROGRESS NOTE Progress Note Patient: Luis VALENZUELA Provider: Bruce Del Toro ([facility]), CHANDRIKA :1990 A ge:34 Y S ex:Male Date:01/08/2025 Address:[address] [place] [phone] Subjective: * Chief Complaints: * 1 . Multiple issues. * Medical History: Objective: * Vitals: Assessment: Plan: * Treatment: * * Electronic signature of Leslee Everett NP, ACIDIZER.DATA VIRTUALIZATION CONSULTANT.[id number] on 02/24/2025 at 09:56 AM EDT Sign off status: Pending Visit Status: N /S N/C (No Show/No Charge) * Provider: Bruce Del Toro ([facility]), DATA VIRTUALIZATION CONSULTANT Date: 0 01/08/2025 Generated for Roxanne jefferson/Amparo/Michael on: 0 02/24/2025 09:56 AM EDT
--- OUTSIDE RECORDS SUMMARY | 2025-02-16 07:19 | XMS_ITS ---
Author Organization [facility] [place] Address [address] [place] [address] Care Team Providers Care Capper Machine Operator Name Role Phone Neetu Del Toro Primary Care Provider [phone] REASON FOR VISIT Labs Ordered Encounters Encounter Location Date Provider Diagnosis [facility] [address] [place] [address] 02/16/2025 Neetu Del Toro Wellness examination Z00.00 Assessments Encounter Date Diagnosis (ICD Code) Assessment Notes Treatment Notes Treatment Clinical Notes Section Notes 02/16/2025 Wellness examination (ICD-10 - Z00.00) Plan Of Treatment Pending Test Test Name Order Date CBC 02/16/2025 CMP - Comprehensive Metabolic Panel 01/27 GLYCOHEMOGLOBIN A1C 02/16/2025 LIPID PROFILE 02/16/2025 THYROID PANEL (T4/TSH/FREE T3) Next Appt Details Provider Name:Neetu nickerson, 02/27/2025 01:30:00 PM, [address] [place], [address], Progress Notes * Luis GALVEZ TDOB:1990 (34 yo M)Acc No.[id number]:02/16/2025 Patient: Luis VALENZUELA :1990 A ge:34 Y S ex:Male Address:[address] [place] [address], [address] Subjective: * Chief Complaints: * L abs Ordered * Medical History: * Surgical History: * Hospitalization/Major Diagno stic Procedure: * Medications: Objective: * Vitals: * Physical Examination: Assessment: * Assessment: 1. [facility] examination - Z00.00 (Primary) Plan: * Treatment: * Procedure Codes: * true * Date: Generated for Roxanne jefferson/Amparo/Michael on: 0 02/24/2025 09:56 AM EDT
[2025-02-24] VITALS (10 sets, daily range): BP systolic 81–114; BP diastolic 45–69; PULSE 84–116; TEMP 36.4–37.4; O2SAT 91–95; BMI 22.9; BMI 22.4
--- OUTSIDE RECORDS SUMMARY | 2025-02-24 09:58 | XMS_ITS | Patient Health Record ---
Author Organization [facility] Address [address] [place] [address] Care Team Providers Care Pattern Drafter Name Role Phone Dr. Robert Lang Primary Care Provider [phone] Zee [place] Unavailable [phone] Veronique Johnson Unavailable [phone] Reason For Referral No Information Medications Medication SIG (Take, Route, Fr equency, Duration) Notes Start Date End Date Status Ibuprofen 800 MG 1 tablet with food o r milk as needed Orally Three times a day 10/12/2020 Active Ibuprofen 800 MG 1 tablet with food o r milk as needed Orally Three times a day 09/29/2020 Active Encounters Encounter Location Date Provider Diagnosis [facility] [address] [place] [address] 02/23/2025 Robert Lang [facility] [address] [place] [address] 02/19/2025 Veronique Johnson Encounter for dental examination and cleaning with abnormal findings Z01.21 ; Other dental procedure status Z98.818 ; Dental caries on pit and fissure surface penetrating into dentin K02.52 ; Partial loss of teeth, unspecified cause, class I K08.401 and Acute gingivitis, plaque induced K05.00 [facility] [address] [place] [address] 02/20/2025 Zee Wolff Chronic gingivitis, plaque induced K05.10 Assessments Encounter Date Diagnosis (ICD Code) Assessment Notes Treatment Notes Treatment Clinical Notes Section Notes 02/19/2025 Encounter for dental examination and cleaning with abnormal findings (ICD-10 - Z01.21) 02/20/2025 Chronic gingivitis, plaque induced (ICD-10 - K05.10) 02/19/2025 Other dental procedure status (ICD-10 - Z98.818) 02/19/2025 Dental caries on pit and fissure surface penetrating into dentin (ICD-10 - K02.52) 02/19/2025 Partial loss of teeth, unspecified cause, class I (ICD-10 - K08.401) 02/19/2025 Acute gingivitis, plaque induced (ICD-10 - K05.00) Plan Of Treatment Next Appt Details Provider Name:Veronique Elizabeth, 09/2024 11:00:00 AM, [address], [place], [address], Provider Name:Veronique Elizabeth, 04/2025 11:15:00 AM, [address], [place], [address], Provider Name:Zee Wolff , 10/02/2025 02:00:00 PM, [address], [place], [address], Insurance Providers Payer Name Payer Address Payer Phone Subscriber Number Group Number Insured Name Patient Relationship to Insured Coverage Start Date Coverage End Date [facility] [address] [place] [phone] [id number] FRANCIS GALVEZ Self - patient is the insured 3 MEDICAID SEC TO [facility] [address] [place] [address] [phone] [id number] FRANCIS GALVEZ Self - patient is the insured 3 [employer] MEDICARE [address] [address] [place] [address] [id number] FRANCIS GALVEZ Self - patient is the insured 1 [place] [address] [place] [address] [id number] FRANCIS GALVEZ Self - patient is the insured 1
--- OUTSIDE RECORDS SUMMARY | 2025-02-24 09:58 | XMS_ITS | Clinical Summary ---
Author Organization [facility] Address [address] [place] [address] Care Team Providers Care Adon Name Role Phone Neetu Del Toro CHANDRIKA Primary Care Provider [phone] Allergies No known active allergies Medications albuterol 90 mcg/actuation inhaler INHALE 2 PUFFS INTO THE LUNGS EVERY 6 HOURS NEEDED FOR 90 DAYS 07/11/2023 Active traZODone (Desyrel) 50 mg tablet TAKE 1 TABLET BY MOUTH ONCE A DAY AT BEDTIME NEEDED 09/12/2023 Active escitalopram (Lexapro) 10 mg tablet TAKE 1/2 TAB BY MOUTH DAILY FOR FIRST WEEK,THEN INCREASE TO 1 TABLET BY MOUTH DAILY 09/12/2023 Active nebulizer and compressor device 1 Device. 09/08/2016 Active dexlansoprazole (Dexilant) [address] capsule Take 1 capsule by mouth in the morning. 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 GERD s/p fundoplications at 6 weeks of age and re-do 2001. 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 PLAN -Continue maximal PPI therapy -Per GI consult in earlier admission, no effective medical therapy for absent esophageal contractility -Consulted thoracic surgery on options, plan for follow up as outpatient with Dr. Brennan or Dr. Colbert - HOB strict 30 degrees. - Advance diet. Aspiration pneumonia 06/30/2016 Overview (01/21/2024): S/t chronic diminished esophageal motility Sputum culture 2/3 grew Pseudomonas susceptible to cipro, repeat 2/ grew mixed naye 07/04 CXR - increase of confluent focal airspace opacities in the right infrahilar region suggesting inflammation/infection Vital signs and labs stable- except leukocytosis Bronchopulmonary hygiene, respiratory therapy following Completed 7 day course of antibiotics: Azithromycin D/C 07/04, Vanco D/C 07/06, Zosyn D/C 07/07 Weaning off oxygen, comfortable on RA at rest. Desat study recs 4L NC with exertion and while sleeping. This was arranged for him at home. Patient and mother state they will set up follow-up appts with pulmonology and PCP Sputum culture, blood culture Check for lactate, procalcitonin Vest treatment Vanc/ zosyn to be started Family History Medical History Relation Name Comments Diabetes Mother Ewa Heart failure Paternal Grandfather open heart Paternal Grandfather Atrial fibrillation Paternal Grandmother Diabetes Paternal Grandmother Heart failure Paternal Grandmother Relation Name Status Comments Mother Ewa Alive Paternal Grandfather Paternal Grandmother Social History Tobacco Use Types Packs/Day Years Used Date Smoking Tobacco: Former Cigarettes 2 10 0 06/28/2013 - 06/28/2023 Smokeless Tobacco: Current Chew Alcohol Use Standard Drinks/Week Comments Never 0 (1 standard drink = 0.6 oz pur e alcohol) quit 2 weeks ago [employer] Answer Date Rec orded Fear of Current or Ex-Partner Not on file Emotionally Abused Not on file 09/19/2023 Physically Abused Not on file 09/19/2023 Sexually Abused Not on file 09/19/2023 Physically or Sexually Abused Not on file Sex and Gender Information Value Date Recorded Sex Assigned at Not on file Legal Sex Male 1:06 PM EDT Gender Identity Not on file Sexual Orientation Not on file Last Filed Vital Signs Vital Sign Reading Time Taken Comments Blood Pressure 116/78 09/25/2023 1:42 PM EDT Pulse 88 09/25/2023 1:42 PM EDT Temperature - - Respiratory Rate 16 09/25/2023 1:42 PM EDT Oxygen Saturation 93% 09/25/2023 1:42 PM EDT Inhaled Oxygen Concentration - - Weight 53.9 kg (118 lb 12.8 oz) 09/25/2023 1:42 PM EDT Height 160 cm (5' 3 ) 09/25/2023 1:42 PM EDT Body Mass Index 21.04 09/25/2023 1:42 PM EDT Plan of Treatment Health Maintenance Due Date Last Done Comments Medicare Annual Wellness (AWV) 1990 Depression Screening 2002 Varicella Vaccines (1 of 2 - 13+ 2-dose series) 08/29/2003 Hepatitis B Vaccines (1 of 3 - 19+ 3-dose series) 2009 COVID-19 Vaccine ( - 2023-2 5 season) 2025 Influenza Vaccine (#1) 2025 03/24/2016 Adult Tetanus 04/14/2032 04/14/2022 Pneumococcal Vaccine: Pediatrics (0 to 5 Years) and At-Risk Patients (6 to 64 Years) (3 of 3 - PCV20 or PCV21) 2040 11/10/2016, 03/02/2016 Zoster Vaccines (1 of 2) 2040 HIB Vaccines Aged Out No longer eligi ble based on patient's age to complete this topic HPV Vaccines Aged Out No longer eligi ble based on patient's age to complete this topic IPV Vaccines Aged Out No longer eligi ble based on patient's age to complete this topic Meningococcal B Vaccine Aged Out No l onger eligible based on patient's age to complete this topic Meningococcal Vaccine Aged Out No jhonatan mia eligible based on patient's age to complete this topic Rotavirus Vaccines Aged Out No longer eligible based on patient's age to complete this topic Insurance [employer] MEDICARE Care Teams Adon Relationship Specialty Start Date End Date Neetu Del Toro CNP [address] [place] [address], [place] [address] PCP - General Family Medicine 09/24/23
--- OUTSIDE RECORDS SUMMARY | 2025-02-24 09:58 | XMS_ITS | Clinical Summary ---
Author Organization [facility] Address [address] [facility] [facility] [place] [address] Phone Care Team Providers Care Nurse Practitioner Adult Name Role Phone Unavailable Primary Care Provider Unavailabl e Social History Tobacco Use Types Packs/Day Years Used Date Smoking Tobacco: Never Assessed Sex and Gender Information Value Date Recorded Sex Assigned at Not on file Legal Sex Male 8:07 AM EST Gender Identity Not on file Sexual Orientation Not on file Plan of Treatment Not on file
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
--- OUTSIDE RECORDS SUMMARY | 2025-02-24 09:59 | XMS_ITS | Patient Health Record ---
Author Organization [facility] in [place] Address [address] [place] [address] Care Team Providers Care Regional Training Manager Name Role Phone Neetu Barboza Primary Care Provider James Elkins [phone] Allergies Allergen (clinical drug ingredient) Drug/Non Drug Allergy documented on EMR Reaction Allergy Type Onset Date Status naproxen Naproxen unknown Drug Allergy Active Penicillin Unknown Drug Allergy Active Results Component Value Reference Range Notes CBC AUTO DIFF Reviewed date:02/25/2024 09:41:36 AM Interpretation: Performing Lab: Notes/Report: [facility] , White Blood Count 12.4 4.0-11.0 10 3/uL Red Blood Count 4.67 4.70-6.10 10 6/uL Hemoglobin 14.0 14.0-18.0 g/dL Hematocrit 41.1 42.0-54.0 % Mean Corpuscular Volume 88.0 80.0-94.0 fL Mean Corpuscular Hemoglobin 30.0 25.9-34.0 pg Mean Corpuscular HGB Conc 34.1 29.9-35.2 g/dL Red Cell Distribution Width 12.9 11.0-15.0 % Platelet Count 202 150-450 10 3/uL Mean Platelet Volume 12.0 9.5-13.5 fL Neutrophils Percent Auto 95.2 43.0-75.0 % Lymphocytes Percent Auto 3.2 20.5-60.0 % Monocytes Percent Auto 1.2 1.7-12.0 % Eosinophils Percent Auto 0.0 0.9-7.0 % Basophils Percent Auto 0.1 0.2-2.0 % Immature Granulocytes Pct Auto 0.3 0.0-0.5 % Neutrophils Absolute Auto 11.8 1.4-6.5 10 3/uL Lymphocytes Absolute Auto 0.4 1.2-3.8 10 3/uL Monocytes Absolute Auto 0.2 0.3-0.8 10 3/uL Eosinophils Absolute Auto 0.0 0.0-0.7 10 3/uL Basophils Absolute Auto 0.0 0.0-0.1 10 3/uL Immature Granulocytes Abs Auto 0.04 0.00-0.03 10 3/uL Performing Lab: see note ML - [facility] LB PROF 14(COMP METB) Reviewed date:02/25/2024 09:41:36 AM Interpretation: Performing Lab: Notes/Report: [facility] , Sodium 138 136-145 mmol/L Potassium 4.3 3.5-5.1 mmol/L Chloride 105 98-107 mmol/L Carbon Dioxide 24.4 21.0-32.0 mmol/L Anion Gap 12.9 Glucose 211 74-106 mg/dL Blood Urea Nitrogen 12.0 7.0-18.0 mg/dL Creatinine 0.90 0.70-1.30 mg/dL Estimated GFR ( Cinthia >60 >=60 Estimated GFR (Non- Sabine >60 >=60 BUN Creatinine Ratio 13.3 Calcium 8.4 8.5-10.1 mg/dL Bilirubin Total 0.6 0.2-1.0 mg/dL Aspartate Amino Transferase 11 15-37 U/L Alanine Aminotransferase 19 16-63 U/L Alkaline Phosphatase 70 46-116 U/L Total Protein 6.0 6.4-8.2 g/dL Albumin Level 3.0 3.4-5.0 g/dL Globulin 3.0 Albumin Globulin Ratio 1.0 Performing Lab: see note ML - [facility] LB CBC AUTO DIFF Reviewed date:03/06/2024 08:39:49 AM Interpretation: Performing Lab: Notes/Report: [facility] , White Blood Count 14.9 4.0-11.0 10 3/uL Red Blood Count 5.76 4.70-6.10 10 6/uL Hemoglobin 17.0 14.0-18.0 g/dL Hematocrit 50.3 42.0-54.0 % Mean Corpuscular Volume 87.3 80.0-94.0 fL Mean Corpuscular Hemoglobin 29.5 25.9-34.0 pg Mean Corpuscular HGB Conc 33.8 29.9-35.2 g/dL Red Cell Distribution Width 12.8 11.0-15.0 % Platelet Count 277 150-450 10 3/uL Mean Platelet Volume 11.1 9.5-13.5 fL Neutrophils Percent Auto 84.9 43.0-75.0 % Lymphocytes Percent Auto 7.2 20.5-60.0 % Monocytes Percent Auto 6.1 1.7-12.0 % Eosinophils Percent Auto 0.5 0.9-7.0 % Basophils Percent Auto 0.8 0.2-2.0 % Immature Granulocytes Pct Auto 0.5 0.0-0.5 % Neutrophils Absolute Auto 12.7 1.4-6.5 10 3/uL Lymphocytes Absolute Auto 1.1 1.2-3.8 10 3/uL Monocytes Absolute Auto 0.9 0.3-0.8 10 3/uL Eosinophils Absolute Auto 0.1 0.0-0.7 10 3/uL Basophils Absolute Auto 0.1 0.0-0.1 10 3/uL Immature Granulocytes Abs Auto 0.08 0.00-0.03 10 3/uL Performing Lab: see note ML - [facility] LB INFLUENZA A AND B AG Reviewed date:03/06/2024 08:39:49 AM Interpretation: Performing Lab: Notes/Report: [facility] , Influenza Virus A Antigen Negative Negative for Flu A protein antigen. Infection due to Flu A cannot be ruled out. Flu A antigen in the sample may be below the detection limit of the test. Influenza Virus B Antigen Negative Negative for Flu B protein antigen. Infection due to Flu B cannot be ruled out. Flu B antigen in the sample may be below the detection limit of the test. Performing Lab: see note ML - [facility] LB LACTATE or LACTIC ACID Reviewed date:03/06/2024 08:39:49 AM Interpretation: Performing Lab: Notes/Report: [facility] , Lactate/Lactic Acid 0.8 0.4-2.0 mmol/L Performing Lab: see note ML - [facility] LB PROF 14(COMP METB) Reviewed date:03/06/2024 08:39:49 AM Interpretation: Performing Lab: Notes/Report: [facility] , Sodium 137 136-145 mmol/L Potassium 3.8 3.5-5.1 mmol/L Chloride 101 98-107 mmol/L Carbon Dioxide 27.1 21.0-32.0 mmol/L Anion Gap 12.7 Glucose 98 74-106 mg/dL Blood Urea Nitrogen 9.0 7.0-18.0 mg/dL Creatinine 0.85 0.70-1.30 mg/dL Estimated GFR ( Cinthia >60 >=60 mL/min/1.73m 2 Estimated GFR (Non- Sabine >60 >=60 mL/min/1.73m 2 BUN Creatinine Ratio 10.6 Calcium 9.1 8.5-10.1 mg/dL Bilirubin Total 0.9 0.2-1.0 mg/dL Aspartate Amino Transferase 13 15-37 U/L Alanine Aminotransferase 24 16-63 U/L Alkaline Phosphatase 91 46-116 U/L Total Protein 7.2 6.4-8.2 g/dL Albumin Level 3.9 3.4-5.0 g/dL Globulin 3.3 Albumin Globulin Ratio 1.2 Performing Lab: see note ML - [facility] LB Blood Culture 1 Reviewed date:03/10/2024 04:32:02 PM Interpretation: Performing Lab: Notes/Report: [facility] , Blood Culture 1 See Below For Report Blood Culture 1 NG5D NO GROWTH AT 5 DAYS. Performing Lab: see note ML - [facility] LB Blood Culture 2 Reviewed date:03/10/2024 04:32:02 PM Interpretation: Performing Lab: Notes/Report: [facility] , Blood Culture 2 See Below For Report Blood Culture 2 NG5D NO GROWTH AT 5 DAYS. Performing Lab: see note ML - [facility] LB Troponin I High Sensitivity Reviewed date:03/06/2024 08:39:49 AM Interpretation: Performing Lab: Notes/Report: [facility] , Troponin I High Sensitivity <4.0 4.0-76.1 pg/mL CUT-OFF POINTS HAVE BEEN ESTABLISHED BASED ON THE FOURTH UNIVERSAL DEFINITION OF MYOCARDIAL INFARCTION. THE UPPER REFERENCE LIMIT (URL) OF TROPONIN, DEFINED THE 99TH PERCENTILE OF cTnI DISTRIBUTION IN A REFERENCE POPULATION, HAS BEEN CONFIRMED THE DECISION THRESHOLD FOR DC DIAGNOSIS. 99TH PERCENTILE = 76.2 PG/ML NOTE: HIGH-SENSITIVITY TROPONIN ASSAY IS NOT INTENDED TO BE USED IN ISOLATION BUT SHOULD BE INTERPRETED IN CONJUNCTION WITH OTHER DIAGNOSTIC AND CLINICAL INFORMATION. Performing Lab: see note ML - [facility] LB SARS-CoV-2 Ag* Reviewed date:03/06/2024 08:39:49 AM Interpretation: Performing Lab: Notes/Report: [facility] , SARS-CoV-2 Ag NEGATIVE NEGATIVE This test has not been FDA cleared or approved, but has been authorized by the FDA under an Emergency Use Authorization (EUA) for use by authorized laboratories certified under CLIA that meet the requirements to perform moderate or high complexity testing. This test has been authorized only for the detection of proteins from SARS-CoV-2, not for any other viruses or pathogens. The emergency use of this test is authorized for the duration of the declaration that circumstances exist justifying the authorization of emergency use of in vitro diagnostic tests for detection and/or diagnosis of Covid-19 under section 564(b)(1) of the Act, 21 U.S.C. 360bbb-3(b)(1), unless the declaration is terminated or authorization is revoked sooner. Performing Lab: see note ML - [facility] LB ECG 12 lead Reviewed date:03/06/2024 08:39:49 AM Interpretation: Performing Lab: Notes/Report: Source Facility: [facility] [place] [address] [place] [address] Electrocardiograph Report Signed Patient: LUIS SOLOMON MR#: [id number] : 1990 Acct:[id number] Age/Sex: 33 / M ADM Date: 03/05/24 Loc: MS 214-[address]: Shaikh Lawanda Willis Ordering Physician: Aneta Sánchez D.O. 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 Signed By: 03/05/24 1942 DD/ 1154 TD/TT: Photograph Printer: CBC AUTO DIFF Reviewed date:03/06/2024 08:39:49 AM Interpretation: Performing Lab: Notes/Report: [facility] , White Blood Count 13.7 4.0-11.0 10 3/uL Red Blood Count 5.11 4.70-6.10 10 6/uL Hemoglobin 15.2 14.0-18.0 g/dL Hematocrit 44.6 42.0-54.0 % Mean Corpuscular Volume 87.3 80.0-94.0 fL Mean Corpuscular Hemoglobin 29.7 25.9-34.0 pg Mean Corpuscular HGB Conc 34.1 29.9-35.2 g/dL Red Cell Distribution Width 12.5 11.0-15.0 % Platelet Count 278 150-450 10 3/uL Mean Platelet Volume 11.4 9.5-13.5 fL Neutrophils Percent Auto 94.1 43.0-75.0 % Lymphocytes Percent Auto 2.2 20.5-60.0 % Monocytes Percent Auto 2.9 1.7-12.0 % Eosinophils Percent Auto 0.0 0.9-7.0 % Basophils Percent Auto 0.1 0.2-2.0 % Immature Granulocytes Pct Auto 0.7 0.0-0.5 % Neutrophils Absolute Auto 12.9 1.4-6.5 10 3/uL Lymphocytes Absolute Auto 0.3 1.2-3.8 10 3/uL Monocytes Absolute Auto 0.4 0.3-0.8 10 3/uL Eosinophils Absolute Auto 0.0 0.0-0.7 10 3/uL Basophils Absolute Auto 0.0 0.0-0.1 10 3/uL Immature Granulocytes Abs Auto 0.09 0.00-0.03 10 3/uL Performing Lab: see note ML - [facility] LB PROF 14(COMP METB) Reviewed date:03/06/2024 08:39:49 AM Interpretation: Performing Lab: Notes/Report: [facility] , Sodium 136 136-145 mmol/L Potassium 4.1 3.5-5.1 mmol/L Chloride 99 98-107 mmol/L Carbon Dioxide 25.0 21.0-32.0 mmol/L Anion Gap 16.1 Glucose 191 74-106 mg/dL Blood Urea Nitrogen 11.0 7.0-18.0 mg/dL Creatinine 1.01 0.70-1.30 mg/dL Estimated GFR ( Cinthia >60 >=60 mL/min/1.73m 2 Estimated GFR (Non- Sabine >60 >=60 mL/min/1.73m 2 BUN Creatinine Ratio 10.9 Calcium 8.6 8.5-10.1 mg/dL Bilirubin Total 0.5 0.2-1.0 mg/dL Aspartate Amino Transferase 8 15-37 U/L Alanine Aminotransferase 20 16-63 U/L Alkaline Phosphatase 77 46-116 U/L Total Protein 6.3 6.4-8.2 g/dL Albumin Level 3.3 3.4-5.0 g/dL Globulin 3.0 Albumin Globulin Ratio 1.1 Performing Lab: see note ML - [facility] CBC AUTO DIFF Reviewed date:03/07/2024 01:58:03 PM Interpretation: Performing Lab: Notes/Report: [facility] , White Blood Count 14.4 4.0-11.0 10 3/uL Red Blood Count 5.09 4.70-6.10 10 6/uL Hemoglobin 15.0 14.0-18.0 g/dL Hematocrit 44.6 42.0-54.0 % Mean Corpuscular Volume 87.6 80.0-94.0 fL Mean Corpuscular Hemoglobin 29.5 25.9-34.0 pg Mean Corpuscular HGB Conc 33.6 29.9-35.2 g/dL Red Cell Distribution Width 13.1 11.0-15.0 % Platelet Count 258 150-450 10 3/uL Mean Platelet Volume 11.6 9.5-13.5 fL Performing Lab: see note ML - [facility] LB PROF 14(COMP METB) Reviewed date:03/07/2024 01:58:03 PM Interpretation: Performing Lab: Notes/Report: [facility] , Sodium 138 136-145 mmol/L Potassium 4.2 3.5-5.1 mmol/L Chloride 101 98-107 mmol/L Carbon Dioxide 24.1 21.0-32.0 mmol/L Anion Gap 17.1 Glucose 168 74-106 mg/dL Blood Urea Nitrogen 18.0 7.0-18.0 mg/dL Creatinine 0.93 0.70-1.30 mg/dL Estimated GFR ( Cinthia >60 >=60 mL/min/1.73m 2 Estimated GFR (Non- Sabine >60 >=60 mL/min/1.73m 2 BUN Creatinine Ratio 19.4 Calcium 8.9 8.5-10.1 mg/dL Bilirubin Total 0.3 0.2-1.0 mg/dL Aspartate Amino Transferase 10 15-37 U/L Alanine Aminotransferase 21 16-63 U/L Alkaline Phosphatase 79 46-116 U/L Total Protein 6.4 6.4-8.2 g/dL Albumin Level 3.4 3.4-5.0 g/dL Globulin 3.0 Albumin Globulin Ratio 1.1 Performing Lab: see note - [facility] LB Manual Differential Reviewed date:03/07/2024 01:58:03 PM Interpretation: Performing Lab: Notes/Report: [facility] , Segmented Neutrophils % Manual 96.0 43.0-75.0 Lymphocytes Percent Manual 1.0 20.5-60.0 % Monocytes Percent Manual 2.0 1.7-12.0 % Eosinophils Percent Manual 0.0 0.9-7.0 % Basophils Percent Manual 0.0 0.2-2.0 % Atypical Lymphocytes % Manual 2.0 Segmented Neut Absolute Manual 13.82 1.4-6.5 10 3/uL Lymphocytes Absolute Manual 0.14 1.20-3.80 10 3/uL Monocytes Absolute Manual 0.28 0.30-0.80 10 3/ uL Eosinophils Absolute Manual 0.00 0.00-0.70 10 3/uL Basophils Abs Manual 0.00 0.00-0.10 10 3/uL Atypical Lymphocytes Abs Man 0.28 Performing Lab: see note - [facility] LB CBC AUTO DIFF Reviewed date:03/21/2024 02:39:46 PM Interpretation: Performing Lab: Notes/Report: [facility] , White Blood Count 18.6 4.0-11.0 10 3/uL Red Blood Count 5.54 4.70-6.10 10 6/uL Hemoglobin 16.4 14.0-18.0 g/dL Hematocrit 48.9 42.0-54.0 % Mean Corpuscular Volume 88.3 80.0-94.0 fL Mean Corpuscular Hemoglobin 29.6 25.9-34.0 pg Mean Corpuscular HGB Conc 33.5 29.9-35.2 g/dL Red Cell Distribution Width 12.8 11.0-15.0 % Platelet Count 243 150-450 10 3/uL Mean Platelet Volume 12.1 9.5-13.5 fL Neutrophils Percent Auto 84.3 43.0-75.0 % Lymphocytes Percent Auto 8.2 20.5-60.0 % Monocytes Percent Auto 6.4 1.7-12.0 % Eosinophils Percent Auto 0.3 0.9-7.0 % Basophils Percent Auto 0.4 0.2-2.0 % Immature Granulocytes Pct Auto 0.4 0.0-0.5 % Neutrophils Absolute Auto 15.7 1.4-6.5 10 3/uL Lymphocytes Absolute Auto 1.5 1.2-3.8 10 3/uL Monocytes Absolute Auto 1.2 0.3-0.8 10 3/uL Eosinophils Absolute Auto 0.1 0.0-0.7 10 3/uL Basophils Absolute Auto 0.1 0.0-0.1 10 3/uL Immature Granulocytes Abs Auto 0.07 0.00-0.03 10 3/uL Performing Lab: see note ML - [facility] LB Venous Blood Gas Reviewed date:03/21/2024 02:39:46 PM Interpretation: Performing Lab: Notes/Report: [facility] , pH VBG 7.338 7.330-7.430 PCO2 VBG 50.9 40.0-52.0 mmHg Performing Lab: see note - [facility] LB CBC AUTO DIFF Reviewed date:03/23/2024 09:39:53 PM Interpretation: Performing Lab: Notes/Report: [facility] , White Blood Count 13.8 4.0-11.0 10 3/uL Red Blood Count 4.54 4.70-6.10 10 6/uL Hemoglobin 13.3 14.0-18.0 g/dL Hematocrit 39.9 42.0-54.0 % Mean Corpuscular Volume 87.9 80.0-94.0 fL Mean Corpuscular Hemoglobin 29.3 25.9-34.0 pg Mean Corpuscular HGB Conc 33.3 29.9-35.2 g/dL Red Cell Distribution Width 12.7 11.0-15.0 % Platelet Count 215 150-450 10 3/uL Mean Platelet Volume 12.2 9.5-13.5 fL Neutrophils Percent Auto 94.0 43.0-75.0 % Lymphocytes Percent Auto 3.0 20.5-60.0 % Monocytes Percent Auto 2.3 1.7-12.0 % Eosinophils Percent Auto 0.0 0.9-7.0 % Basophils Percent Auto 0.1 0.2-2.0 % Immature Granulocytes Pct Auto 0.6 0.0-0.5 % Neutrophils Absolute Auto 13.0 1.4-6.5 10 3/uL Lymphocytes Absolute Auto 0.4 1.2-3.8 10 3/uL Monocytes Absolute Auto 0.3 0.3-0.8 10 3/uL Eosinophils Absolute Auto 0.0 0.0-0.7 10 3/uL Basophils Absolute Auto 0.0 0.0-0.1 10 3/uL Immature Granulocytes Abs Auto 0.08 0.00-0.03 10 3/uL Performing Lab: see note ML - [facility] LB PROF CHEM 8 (BAS METB) Reviewed date:03/23/2024 09:39:53 PM Interpretation: Performing Lab: Notes/Report: [facility] , Sodium 139 136-145 mmol/L Potassium 4.0 3.5-5.1 mmol/L Chloride 105 98-107 mmol/L Carbon Dioxide 25.0 21.0-32.0 mmol/L Anion Gap 13.0 Glucose 329 74-106 mg/dL Blood Urea Nitrogen 15.0 7.0-18.0 mg/dL Creatinine 0.92 0.70-1.30 mg/dL Estimated GFR ( Cinthia >60 >=60 mL/min/1.73m 2 Estimated GFR (Non- Sabine >60 >=60 mL/min/1.73m 2 BUN Creatinine Ratio 16.3 Calcium 8.8 8.5-10.1 mg/dL Performing Lab: see note ML - [facility] LB XR HAND LT MIN 3V Reviewed date:03/31/2024 03:02:50 PM Interpretation: Performing Lab: Notes/Report: Source Facility: [facility]-[address] [place] [address] [place] [address] XRay Report Signed Patient: LUIS SOLOMON MR#: [id number] : 1990 Acct:[id number] Age/Sex: 33 / M ADM Date: 03/31/24 Loc: ER Attending Dr: Ordering Physician: Juliano Wellington Date of Service: 03/31/24 Procedure(s): XR hand LT min 3V Accession Number(s): [id number] cc: NEETU BARBOZA ; Juliano Wellington [place] [address] Patient Name: LUIS SOLOMON MRN: [id number]:[id number] date: 1990 Sex: M Assigned Patient Location: ER Current Patient Location: ER Accession/Order Number: [id number] Exam Date: 03/31/2024 13:40 Report Date: 03/31/2024 14:04 At the request of: JULIANO WELLINGTON Procedure: XR hand LT min 3V PROCEDURE: XR hand LT min 3V COMPARISON: 07/17/2023 HISTORY: crush injury left index finger FINDINGS: BONES:No fracture, acute abnormality, or significant arthropathy. SOFT TISSUES:Negative. No visible soft tissue swelling. EFFUSION:None visible. OTHER: Negative. XR/XR hand LT min 3V IMPRESSION: No acute fracture Electronically authenticated by: NEMO QUIÑONES Date: 03/31/2024 14:04 Dictated By: Nemo Quiñones M.D. Signed By: 03/31/24 1406 DD/ 03 TD/TT: Photograph Printer: ECG 12 lead Reviewed date:05/13/2024 08:46:43 AM Interpretation: Performing Lab: Notes/Report: Source Facility: [place] [address] [address] Electrocardiograph Report Signed Patient: LUIS OSLOMON MR#: [id number] : 1990 Acct:[id number] Age/Sex: 33 / M ADM Date: 05/08/24 Loc: MS 213-[address]: Nicola Wyatt D.O. 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 Signed By: 05/13/24 0651 DD/ 0752 TD/TT: Photograph Printer: MAGNESIUM Reviewed date:05/11/2024 07:48:02 PM Interpretation: Performing Lab: Notes/Report: Comment ok to add to AM labs [facility] , Magnesium 1.9 1.8-2.4 mg/dL Performing Lab: see note ML - [facility] LB Lower Respiratory Culture Reviewed date:05/12/2024 06:14:45 PM Interpretation: Performing Lab: Notes/Report: [facility] , Lower Respiratory Culture See Below For Report Lower Respiratory Culture WILL FOLLOW Lower Respiratory Culture Routine respir atory naye Lower Respiratory Culture WILL FOLLOW Lower Res[facility] WILL FOLLOW Lower Respiratory Culture [address] [place], [place] [id number] Lower Respiratory Culture WILL FOLLOW Lower Respiratory Culture Personal Property Appraiser: Yonny Pa PhD, Phone: [phone] Lower Respiratory Culture WILL FOLLOW Performing Lab: see note LC - [facility] LB SEE REPORT - Consumer Affairs Specialist Id information not found for OBX-specific media producer legend PROF CHEM 8 (BAS METB) Reviewed date:05/12/2024 02:14:22 PM Interpretation: Performing Lab: Notes/Report: [facility] , Sodium 144 136-145 mmol/L Potassium 3.8 3.5-5.1 mmol/L Chloride 106 98-107 mmol/L Carbon Dioxide 26.2 21.0-32.0 mmol/L Anion Gap 15.6 Glucose 251 74-106 mg/dL Blood Urea Nitrogen 14.0 7.0-18.0 mg/dL Creatinine 1.09 0.70-1.30 mg/dL Estimated GFR ( Cinthia >60 >=60 mL/min/1.73m 2 Estimated GFR (Non- Sabine >60 >=60 mL/min/1.73m 2 BUN Creatinine Ratio 12.8 Calcium 8.0 8.5-10.1 mg/dL Performing Lab: see note ML - [facility] LB Gram Stain Evaluation Reviewed date:05/12/2024 06:14:45 PM Interpretation: Performing Lab: Notes/Report: [facility] , Gram Stain Evaluation See Below For Report Gram Stain Evaluation This specimen is of good quality and is acceptable for routine Gram Stain Evaluation bacterial culture. Gram Stain Evaluation This specimen is of good quality and is acceptable for routine Performing Lab: see note LC - [facility] LB Result 4 Reviewed date:05/12/2024 06:14:45 PM Interpretation: Performing Lab: Notes/Report: [facility] , Result 4 See Below For Report Result 4 CDC ASSOCIATE Performing Lab: see note LC - [facility] LB Result 3 Reviewed date:05/12/2024 06:14:45 PM Interpretation: Performing Lab: Notes/Report: [facility] , Result 3 See Below For Report Result 3 CDC ASSOCIATE Performing Lab: see note LC - [facility] LB Result 2 Reviewed date:05/12/2024 06:14:45 PM Interpretation: Performing Lab: Notes/Report: [facility] , Result 2 See Below For Report Result 2 CDC ASSOCIATE Performing Lab: see note LC - [facility] LB Result 1 Reviewed date:05/12/2024 06:14:45 PM Interpretation: Performing Lab: Notes/Report: [facility] , Result 1 See Below For Report Result 1 No organisms seen Performing Lab: see note LC - [facility] LB Epithelial Cells Reviewed date:05/12/2024 06:14:45 PM Interpretation: Performing Lab: Notes/Report: [facility] , Epithelial Cells See Below For Report Epithelial Cells None seen Performing Lab: see note LC - [facility] LB White Blood Cells Reviewed date:05/12/2024 06:14:45 PM Interpretation: Performing Lab: Notes/Report: [facility] , White Blood Cells See Below For Report White Blood Cells White Blood Cells None seen White Blood Cells Performing Lab: see note LC - [facility] LB PROF CHEM 8 (BAS METB) Reviewed date:05/11/2024 07:48:03 PM Interpretation: Performing Lab: Notes/Report: [facility] , Sodium 145 136-145 mmol/L Potassium 4.2 3.5-5.1 mmol/L Chloride 106 98-107 mmol/L Carbon Dioxide 28.7 21.0-32.0 mmol/L Anion Gap 14.5 Glucose 164 74-106 mg/dL Blood Urea Nitrogen 16.0 7.0-18.0 mg/dL Creatinine 1.03 0.70-1.30 mg/dL Estimated GFR ( Cinthia >60 >=60 mL/min/1.73m 2 Estimated GFR (Non- Sabine >60 >=60 mL/min/1.73m 2 BUN Creatinine Ratio 15.5 Calcium 8.9 8.5-10.1 mg/dL Performing Lab: see note - [facility] LB CBC AUTO DIFF Reviewed date:05/11/2024 07:48:03 PM Interpretation: Performing Lab: Notes/Report: [facility] , White Blood Count 13.9 4.0-11.0 10 3/uL Red Blood Count 4.73 4.70-6.10 10 6/uL Hemoglobin 13.9 14.0-18.0 g/dL Hematocrit 42.5 42.0-54.0 % Mean Corpuscular Volume 89.9 80.0-94.0 fL Mean Corpuscular Hemoglobin 29.4 25.9-34.0 pg Mean Corpuscular HGB Conc 32.7 29.9-35.2 g/dL Red Cell Distribution Width 12.8 11.0-15.0 % Platelet Count 287 150-450 10 3/uL Mean Platelet Volume 11.8 9.5-13.5 fL Neutrophils Percent Auto 92.9 43.0-75.0 % Lymphocytes Percent Auto 4.9 20.5-60.0 % Monocytes Percent Auto 1.7 1.7-12.0 % Eosinophils Percent Auto 0.0 0.9-7.0 % Basophils Percent Auto 0.1 0.2-2.0 % Immature Granulocytes Pct Auto 0.4 0.0-0.5 % Neutrophils Absolute Auto 12.9 1.4-6.5 10 3/uL Lymphocytes Absolute Auto 0.7 1.2-3.8 10 3/uL Monocytes Absolute Auto 0.2 0.3-0.8 10 3/uL Eosinophils Absolute Auto 0.0 0.0-0.7 10 3/uL Basophils Absolute Auto 0.0 0.0-0.1 10 3/uL Immature Granulocytes Abs Auto 0.06 0.00-0.03 10 3/uL Performing Lab: see note ML - [facility] LB CT angio chest Reviewed date:05/13/2024 12:17:06 PM Interpretation: Performing Lab: Notes/Report: Source Facility: [place] [address] CT Scan Report Signed Patient: LUIS SOLOMON MR#: [id number] : 1990 Acct:[id number] Age/Sex: 33 / M ADM Date: 05/13/24 Loc: MS 203-[address]: Maryanne Elkins M.D. Ordering Physician: Maryanne Elkins M.D. Date of Service: 05/13/24 Procedure(s): CT angio chest Accession Number(s): [id number] cc: NEETU BARBOZA [place] [address] Patient Name: LUIS SOLOMON MRN: [id number]:[id number] date: 1990 Sex: M Assigned Patient Location: ER Current Patient Location: MS Accession/Order Number: [id number] Exam Date: 05/13/2024 09:30 Report Date: 05/13/2024 10:07 At the request of: MARYANNE ELKINS Procedure: CT angio chest EXAMINATION: CT angio chest HISTORY: acute hypoxia COMPARISON: 01/10/2024 TECHNIQUE: Multi-planar CT images were created with IV contrast. Axial, Coronal, and Sagittal images. Dose reduction techniques were achieved by using automated exposure control and/or adjustment of mA and/or kV according to patient size and/or use of iterative reconstruction technique. FINDINGS: LUNGS: Stable lobular 1.5 cm noncalcified solid nodule in the left lower lobe axial image #90. By basilar moderate bronchiectasis. Moderate to severe diffuse centrilobular emphysema. Stable scattered groundglass and patchy parenchymal infiltrates.. No new parenchymal opacities PLEURA: No mass, effusion, or pneumothorax. VASCULATURE: No filling defect within the central pulmonary arterial tree GISELLE: No mass or adenopathy. MEDIASTINUM: No mass or adenopathy. CARDIAC: No enlargement or pericardial effusion Coronary arteries: Absent calcifications AORTA: No aneurysm or dissection. CHEST WALL: No mass or axillary adenopathy. BONES: No bone lesion or fracture. LIMITED ABDOMEN: Dilated esophagus. Thickening of the distal esophagus measuring up to 1.1 cm OTHER: Negative. CT/CT angio chest IMPRESSION: No central pulmonary thromboembolic disease Stable severe emphysema with bronchiectasis, scattered parenchymal opacities and stable indeterminate 1.5 cm left basilar nodule Thickening of the distal esophagus measuring up to 1.1 cm Electronically authenticated by: NEMO QUIÑONES Date: 05/13/2024 10:07 Dictated By: Nemo Quiñones M.D. Signed By: 05/13/24 1009 DD/ 1007 TD/TT: Photograph Printer: DELFINO chest 1V Reviewed date:05/08/2024 09:48:13 AM Interpretation: Performing Lab: Notes/Report: Source Facility: [facility]-[address] [place] [address] [place] [address] XRay Report Signed Patient: LUIS SOLOMON MR#: [id number] : 1990 Acct:[id number] Age/Sex: 33 / M ADM Date: 05/08/24 Loc: ER Attending Dr: Ordering Physician: Comfort Costa Date of Service: 05/08/24 Procedure(s): XR chest 1V Accession Number(s): [id number] cc: NEETU BARBOZA ; Comfort Costa [place] [id number] Patient Name: LUIS SOLOMON MRN: [facility]:[id number] date: 1990 Sex: M Assigned Patient Location: ER Current Patient Location: ED.MAIN Accession/Order Number: [id number] Exam Date: 05/08/2024 08:07 Report Date: 05/08/2024 08:54 At the request of: COMFORT COSTA Procedure: XR chest 1V EXAMINATION: XR chest 1V HISTORY: sob COMPARISON: 03/20/2024 TECHNIQUE: AP portable FINDINGS: LUNGS: Focal consolidation hilar/infrahilar region. The left lung is clear. VASCULATURE: No increased pulmonary vasculature. PLEURA: No pneumothorax. Biapical opacities, pleural parenchymal scarring favored CARDIAC: No cardiomegaly or cardiac silhouette abnormality. MEDIASTINUM: No visible mass or adenopathy. BONES: No fracture or visible bone lesion. OTHER: Negative. XR/XR chest 1V IMPRESSION: Stable right hilar / infrahilar opacity, nonspecific Electronically authenticated by: NEMO QUIÑONES Date: 05/08/2024 08:54 Dictated By: Nemo Quiñones M.D. Signed By: 05/08/2457 DD/ TD/TT: Photograph Printer: Troponin I High Sensitivity Reviewed date:05/08/2024 09:48:13 AM Interpretation: Performing Lab: Notes/Report: [facility] , Troponin I High Sensitivity <4.0 4.0-76.1 pg/mL CUT-OFF POINTS HAVE BEEN ESTABLISHED BASED ON THE FOURTH UNIVERSAL DEFINITION OF MYOCARDIAL INFARCTION. THE UPPER REFERENCE LIMIT (URL) OF TROPONIN, DEFINED THE 99TH PERCENTILE OF cTnI DISTRIBUTION IN A REFERENCE POPULATION, HAS BEEN CONFIRMED THE DECISION THRESHOLD FOR DC DIAGNOSIS. 99TH PERCENTILE = 76.2 PG/ML NOTE: HIGH-SENSITIVITY TROPONIN ASSAY IS NOT INTENDED TO BE USED IN ISOLATION BUT SHOULD BE INTERPRETED IN CONJUNCTION WITH OTHER DIAGNOSTIC AND CLINICAL INFORMATION. Performing Lab: see note ML - [facility] LB Blood Culture 2 Reviewed date:05/13/2024 04:18:23 PM Interpretation: Performing Lab: Notes/Report: [facility] , Blood Culture 2 See Below For Report Blood Culture 2 NG5D NO GROWTH AT 5 DAYS. Performing Lab: see note - [facility] LB Blood Culture 1 Reviewed date:05/13/2024 04:18:23 PM Interpretation: Performing Lab: Notes/Report: LAC [facility] , Blood Culture 1 See Below For Report Blood Culture 1 NG5D NO GROWTH AT 5 DAYS. Performing Lab: see note [facility] PROF 14(COMP METB) Reviewed date:05/08/2024 09:48:13 AM Interpretation: Performing Lab: Notes/Report: [facility] , Sodium 146 136-145 mmol/L Potassium 3.8 3.5-5.1 mmol/L Chloride 104 98-107 mmol/L Carbon Dioxide 29.5 21.0-32.0 mmol/L Anion Gap 16.3 Glucose 94 74-106 mg/dL Blood Urea Nitrogen 13.0 7.0-18.0 mg/dL Creatinine 1.00 0.70-1.30 mg/dL Estimated GFR ( Cinthia >60 >=60 mL/min/1.73m 2 Estimated GFR (Non- Sabine >60 >=60 mL/min/1.73m 2 BUN Creatinine Ratio 13.0 Calcium 8.9 8.5-10.1 mg/dL Bilirubin Total 0.4 0.2-1.0 mg/dL Aspartate Amino Transferase 13 15-37 U/L Alanine Aminotransferase 16 16-63 U/L Alkaline Phosphatase 102 46-116 U/L Total Protein 7.3 6.4-8.2 g/dL Albumin Level 3.9 3.4-5.0 g/dL Globulin 3.4 Albumin Globulin Ratio 1.1 Performing Lab: see note - [facility] LB CBC AUTO DIFF Reviewed date:05/08/2024 09:48:13 AM Interpretation: Performing Lab: Notes/Report: [facility] , White Blood Count 16.3 4.0-11.0 10 3/uL Red Blood Count 5.17 4.70-6.10 10 6/uL Hemoglobin 15.5 14.0-18.0 g/dL Hematocrit 46.5 42.0-54.0 % Mean Corpuscular Volume 89.9 80.0-94.0 fL Mean Corpuscular Hemoglobin 30.0 25.9-34.0 pg Mean Corpuscular HGB Conc 33.3 29.9-35.2 g/dL Red Cell Distribution Width 12.5 11.0-15.0 % Platelet Count 289 150-450 10 3/uL Mean Platelet Volume 11.6 9.5-13.5 fL Neutrophils Percent Auto 82.2 43.0-75.0 % Lymphocytes Percent Auto 9.2 20.5-60.0 % Monocytes Percent Auto 7.0 1.7-12.0 % Eosinophils Percent Auto 0.6 0.9-7.0 % Basophils Percent Auto 0.7 0.2-2.0 % Immature Granulocytes Pct Auto 0.3 0.0-0.5 % Neutrophils Absolute Auto 13.4 1.4-6.5 10 3/uL Lymphocytes Absolute Auto 1.5 1.2-3.8 10 3/uL Monocytes Absolute Auto 1.1 0.3-0.8 10 3/uL Eosinophils Absolute Auto 0.1 0.0-0.7 10 3/uL Basophils Absolute Auto 0.1 0.0-0.1 10 3/uL Immature Granulocytes Abs Auto 0.05 0.00-0.03 10 3/uL Performing Lab: see note - [facility] LB Manual Differential Reviewed date:03/21/2024 02:39:46 PM Interpretation: Performing Lab: Notes/Report: [facility] , Segmented Neutrophils % Manual 99.0 43.0-75.0 Lymphocytes Percent Manual 1.0 20.5-60.0 % Monocytes Percent Manual 0.0 1.7-12.0 % Eosinophils Percent Manual 0.0 0.9-7.0 % Basophils Percent Manual 0.0 0.2-2.0 % Segmented Neut Absolute Manual 10.98 1.4-6.5 10 3/uL Lymphocytes Absolute Manual 0.11 1.20-3.80 10 3/uL Monocytes Absolute Manual 0.00 0.30-0.80 10 3/ uL Eosinophils Absolute Manual 0.00 0.00-0.70 10 3/uL Basophils Abs Manual 0.00 0.00-0.10 10 3/uL Performing Lab: see note - [facility] LB PROF 14(COMP METB) Reviewed date:03/21/2024 02:39:46 PM Interpretation: Performing Lab: Notes/Report: [facility] , Sodium 142 136-145 mmol/L Potassium 4.6 3.5-5.1 mmol/L Chloride 105 98-107 mmol/L Carbon Dioxide 26.6 21.0-32.0 mmol/L Anion Gap 15.0 Glucose 163 74-106 mg/dL Blood Urea Nitrogen 9.0 7.0-18.0 mg/dL Creatinine 0.87 0.70-1.30 mg/dL Estimated GFR ( Cinthia >60 >=60 mL/min/1.73m 2 Estimated GFR (Non- Sabine >60 >=60 mL/min/1.73m 2 BUN Creatinine Ratio 10.3 Calcium 8.9 8.5-10.1 mg/dL Bilirubin Total 1.0 0.2-1.0 mg/dL Aspartate Amino Transferase 10 15-37 U/L Alanine Aminotransferase 17 16-63 U/L Alkaline Phosphatase 86 46-116 U/L Total Protein 6.8 6.4-8.2 g/dL Albumin Level 3.2 3.4-5.0 g/dL Globulin 3.6 Albumin Globulin Ratio 0.9 Performing Lab: see note - [facility] LB CBC AUTO DIFF Reviewed date:03/21/2024 02:39:46 PM Interpretation: Performing Lab: Notes/Report: [facility] , White Blood Count 11.1 4.0-11.0 10 3/uL Red Blood Count 4.80 4.70-6.10 10 6/uL Hemoglobin 14.1 14.0-18.0 g/dL Hematocrit 42.3 42.0-54.0 % Mean Corpuscular Volume 88.1 80.0-94.0 fL Mean Corpuscular Hemoglobin 29.4 25.9-34.0 pg Mean Corpuscular HGB Conc 33.3 29.9-35.2 g/dL Red Cell Distribution Width 12.6 11.0-15.0 % Platelet Count 205 150-450 10 3/uL Mean Platelet Volume 11.8 9.5-13.5 fL Performing Lab: see note - [facility] LB XR chest 1V Reviewed date:03/21/2024 02:39:46 PM Interpretation: Performing Lab: Notes/Report: Source Facility: [place] [address] XRay Report Signed Patient: LUIS SOLOMON MR#: [id number] : 1990 Acct:[id number] Age/Sex: 33 / M ADM Date: 03/20/24 Loc: [place] 215-[address]: Maryanne Elkins M.D. Ordering Physician: Kristina Martinez Date of Service: 03/20/24 Procedure(s): XR chest 1V Accession Number(s): [id number] cc: NEETU BARBOZA ; Kristina Martinez [place] [address] Patient Name: LUIS SOLOMON MRN: [id number] date: 1990 Sex: M Assigned Patient Location: ER Current Patient Location: PR Accession/Order Number: [id number] Exam Date: 03/20/2024 20:28 Report Date: 03/20/2024 22:05 At the request of: KRISTINA MARTINEZ Procedure: XR chest 1V Exam: Radiographs: XR chest 1V Reason for exam: Shortness of breath Comparison: Chest x-ray dated 03/05/2024 XR/XR chest 1V IMPRESSION: Consolidation and/or atelectasis in the medial right lung/right middle lobe. Atelectasis and/or infiltrate in the left lower lung. These are not significantly changed. Bilateral bronchiectasis. Hyperinflation both lungs. Remainder the chest is unremarkable. Electronically authenticated by: PATRICK OCONNOR Date: 03/20/2024 22:05 Dictated By: Patrick Oconnor M.D. Signed By: 03/20/242207 DD/ 04 TD/TT: Photograph Printer: ECG 12 lead Reviewed date:03/21/2024 02:39:46 PM Interpretation: Performing Lab: Notes/Report: Source Facility: [place] [address] [place] [id number] Electrocardiograph Report Signed Patient: LUIS SOLOMON MR#: [id number] : 1990 Acct:[id number] Age/Sex: 33 / M ADM Date: 03/20/24 Loc: [place] 215-[address]: Maryanne Elkins M.D. 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 Signed By: 03/21/24647 DD/ 28 TD/TT: Photograph Printer: SARS-CoV-2 Ag* Reviewed date:03/21/2024 02:39:46 PM Interpretation: Performing Lab: Notes/Report: [facility] , SARS-CoV-2 Ag NEGATIVE NEGATIVE This test has not been FDA cleared or approved, but has been authorized by the FDA under an Emergency Use Authorization (EUA) for use by authorized laboratories certified under CLIA that meet the requirements to perform moderate or high complexity testing. This test has been authorized only for the detection of proteins from SARS-CoV-2, not for any other viruses or pathogens. The emergency use of this test is authorized for the duration of the declaration that circumstances exist justifying the authorization of emergency use of in vitro diagnostic tests for detection and/or diagnosis of Covid-19 under section 564(b)(1) of the Act, 21 U.S.C. 360bbb-3(b)(1), unless the declaration is terminated or authorization is revoked sooner. Performing Lab: see note ML - [facility] LB Troponin I High Sensitivity Reviewed date:03/21/2024 02:39:46 PM Interpretation: Performing Lab: Notes/Report: [facility] , Troponin I High Sensitivity <4.0 4.0-76.1 pg/mL CUT-OFF POINTS HAVE BEEN ESTABLISHED BASED ON THE FOURTH UNIVERSAL DEFINITION OF MYOCARDIAL INFARCTION. THE UPPER REFERENCE LIMIT (URL) OF TROPONIN, DEFINED THE 99TH PERCENTILE OF cTnI DISTRIBUTION IN A REFERENCE POPULATION, HAS BEEN CONFIRMED THE DECISION THRESHOLD FOR DC DIAGNOSIS. 99TH PERCENTILE = 76.2 PG/ML NOTE: HIGH-SENSITIVITY TROPONIN ASSAY IS NOT INTENDED TO BE USED IN ISOLATION BUT SHOULD BE INTERPRETED IN CONJUNCTION WITH OTHER DIAGNOSTIC AND CLINICAL INFORMATION. Performing Lab: see note ML - [facility] Prothrombin Time INR Reviewed date:03/21/2024 02:39:46 PM Interpretation: Performing Lab: Notes/Report: [facility] , Prothrombin Time 10.5 9.0-11.6 sec INR 0.99 DESIRED INR: 2.0-3.0 CONDITIONS NOT LISTED BELOW 2.5-3.5 FOR PROSTHETIC HEART VALVE REPLACEMENT 2.5-3.5 RECURRENT THROMBOSIS Performing Lab: see note ML - [facility] LB Blood Culture 2 Reviewed date:03/27/2024 08:17:53 AM Interpretation: Performing Lab: Notes/Report: [facility] , Blood Culture 2 See Below For Report Blood Culture 2 NG5D NO GROWTH AT 5 DAYS. Performing Lab: see note ML - [facility] LB Blood Culture 1 Reviewed date:03/27/2024 08:17:53 AM Interpretation: Performing Lab: Notes/Report: [facility] , Blood Culture 1 See Below For Report Blood Culture 1 NG5D NO GROWTH AT 5 DAYS. Performing Lab: see note - [facility] LB PROF 14(COMP METB) Reviewed date:03/21/2024 02:39:46 PM Interpretation: Performing Lab: Notes/Report: [facility] , Sodium 142 136-145 mmol/L Potassium 3.7 3.5-5.1 mmol/L Chloride 103 98-107 mmol/L Carbon Dioxide 26.0 21.0-32.0 mmol/L Anion Gap 16.7 Glucose 89 74-106 mg/dL Blood Urea Nitrogen 12.0 7.0-18.0 mg/dL Creatinine 1.02 0.70-1.30 mg/dL Estimated GFR ( Cinthia >60 >=60 mL/min/1.73m 2 Estimated GFR (Non- Sabine >60 >=60 mL/min/1.73m 2 BUN Creatinine Ratio 11.8 Calcium 9.4 8.5-10.1 mg/dL Bilirubin Total 1.0 0.2-1.0 mg/dL Aspartate Amino Transferase 18 15-37 U/L Alanine Aminotransferase 18 16-63 U/L Alkaline Phosphatase 116 46-116 U/L Total Protein 7.8 6.4-8.2 g/dL Albumin Level 3.8 3.4-5.0 g/dL Globulin 4.0 Albumin Globulin Ratio 0.9 Performing Lab: see note ML - [facility] LB MAGNESIUM Reviewed date:03/21/2024 02:39:46 PM Interpretation: Performing Lab: Notes/Report: [facility] , Magnesium 1.8 1.8-2.4 mg/dL Performing Lab: see note ML - [facility] LB LACTATE or LACTIC ACID Reviewed date:03/21/2024 02:39:46 PM Interpretation: Performing Lab: Notes/Report: [facility] , Lactate/Lactic Acid 1.5 0.4-2.0 mmol/L Performing Lab: see note ML - [facility] LB INFLUENZA A AND B AG Reviewed date:03/21/2024 02:39:46 PM Interpretation: Performing Lab: Notes/Report: [facility] , Influenza Virus A Antigen Negative Negative for Flu A protein antigen. Infection due to Flu A cannot be ruled out. Flu A antigen in the sample may be below the detection limit of the test. Influenza Virus B Antigen Negative Negative for Flu B protein antigen. Infection due to Flu B cannot be ruled out. Flu B antigen in the sample may be below the detection limit of the test. Performing Lab: see note ML - [facility] LB CRP Reviewed date:03/21/2024 02:39:46 PM Interpretation: Performing Lab: Notes/Report: [facility] , C Reactive Protein 6.41 <=0.50 mg/dL Performing Lab: see note ML - [facility] LB BNP Reviewed date:03/21/2024 02:39:46 PM Interpretation: Performing Lab: Notes/Report: [facility] , NT Pro B Type Natriuretic Pept 23.0 <=450.0 pg/mL Performing Lab: see note - [facility] LB Lower Respiratory Culture Reviewed date:03/09/2024 07:01:54 PM Interpretation: Performing Lab: Notes/Report: [facility] , Lower Respiratory Culture See Below For Report Lower Respiratory Culture WILL FOLLOW Lower Respiratory Culture Routine respir atory naye Lower Respiratory Culture WILL FOLLOW [facility] Res[facility] WILL FOLLOW Lower Respiratory Culture [address], [place], [place] [id number] Lower Respiratory Culture WILL FOLLOW Lower Respiratory Culture Personal Property Appraiser: Yonny Pa PhD, Phone: [phone] Lower Respiratory Culture WILL FOLLOW Performing Lab: see note LC - [facility] LB SEE REPORT - Consumer Affairs Specialist Id information not found for OBX-specific media producer legend Gram Stain Evaluation Reviewed date:03/09/2024 07:01:54 PM Interpretation: Performing Lab: Notes/Report: [facility] , Gram Stain Evaluation See Below For Report Gram Stain Evaluation This specimen is of good quality and is acceptable for routine Gram Stain Evaluation bacterial culture. Gram Stain Evaluation This specimen is of good quality and is acceptable for routine Performing Lab: see note LC - [facility] LB Result 4 Reviewed date:03/09/2024 07:01:54 PM Interpretation: Performing Lab: Notes/Report: [facility] , Result 4 See Below For Report Result 4 CDC ASSOCIATE Performing Lab: see note LC - [facility] LB Result 3 Reviewed date:03/09/2024 07:01:54 PM Interpretation: Performing Lab: Notes/Report: [facility] , Result 3 See Below For Report Result 3 CDC ASSOCIATE Performing Lab: see note LC - [facility] LB Result 2 Reviewed date:03/09/2024 07:01:54 PM Interpretation: Performing Lab: Notes/Report: [facility] , Result 2 See Below For Report Result 2 Few gram positive rods. Performing Lab: see note LC - [facility] LB Result 1 Reviewed date:03/09/2024 07:01:54 PM Interpretation: Performing Lab: Notes/Report: [facility] , Result 1 See Below For Report Result 1 Few gram positive cocci Performing Lab: see note LC - [facility] LB Epithelial Cells Reviewed date:03/09/2024 07:01:54 PM Interpretation: Performing Lab: Notes/Report: [facility] , Epithelial Cells See Below For Report Epithelial Cells Few Performing Lab: see note LC - [facility] LB White Blood Cells Reviewed date:03/09/2024 07:01:54 PM Interpretation: Performing Lab: Notes/Report: [facility] , White Blood Cells See Below For Report White Blood Cells White Blood Cells Moderate White Blood Cells Performing Lab: see note LC - [facility] LB XR chest 1V Reviewed date:03/06/2024 08:39:49 AM Interpretation: Performing Lab: Notes/Report: Source Facility: [place] [address] XRay Report Signed Patient: LUIS SOLOMON MR#: [id number] : 1990 Acct:[id number] Age/Sex: 33 / M ADM Date: 03/05/24 Loc: ER Attending Dr: Ordering Physician: Aneta Sánchez D.O. Date of Service: 03/05/24 Procedure(s): XR chest 1V Accession Number(s): [id number] cc: NEETU BARBOZA ; Aneta Sánchez D.O. [place] [address] Patient Name: LUIS SOLOMON MRN: [id number] date: 1990 Sex: M Assigned Patient Location: ER Current Patient Location: ER Accession/Order Number: [id number] Exam Date: 03/05/2024 12:20 Report Date: 03/05/2024 13:07 At the request of: ANETA SÁNCHEZ Procedure: XR chest 1V EXAMINATION: XR chest 1V HISTORY: sob , cough COMPARISON: XR chest 02/24/2024, 1424 FINDINGS: LUNGS: Stable chronic interstitial changes and right perihilar opacity. VASCULATURE: No increased pulmonary vasculature. PLEURA: Stable chronic left pleural effusion. CARDIAC: No cardiomegaly or cardiac silhouette abnormality. MEDIASTINUM: No visible mass or adenopathy. BONES: No fracture or visible bone lesion. OTHER: Negative. XR/XR chest 1V IMPRESSION: 1. Stable chronic interstitial changes, right perihilar opacity, small left pleural effusion. 2. No acute changes. Electronically authenticated by: JUANCARLOS JAY Date: 03/05/2024 13:07 Dictated By: Juancarlos Jay M.D. Signed By: 03/05/24 1309 DD/ 1307 TD/TT: Photograph Printer: CBC AUTO DIFF Reviewed date:08/10/2024 03:10:26 PM Interpretation: Performing Lab: Notes/Report: [facility] , White Blood Count 15.2 4.0-11.0 10 3/uL Red Blood Count 4.77 4.70-6.10 10 6/uL Hemoglobin 13.6 14.0-18.0 g/dL Hematocrit 41.6 42.0-54.0 % Mean Corpuscular Volume 87.2 80.0-94.0 fL Mean Corpuscular Hemoglobin 28.5 25.9-34.0 pg Mean Corpuscular HGB Conc 32.7 29.9-35.2 g/dL Red Cell Distribution Width 13.0 11.0-15.0 % Platelet Count 287 150-450 10 3/uL Mean Platelet Volume 12.3 9.5-13.5 fL Neutrophils Percent Auto 88.7 43.0-75.0 % Lymphocytes Percent Auto 5.5 20.5-60.0 % Monocytes Percent Auto 4.7 1.7-12.0 % Eosinophils Percent Auto 0.3 0.9-7.0 % Basophils Percent Auto 0.1 0.2-2.0 % Immature Granulocytes Pct Auto 0.7 0.0-0.5 % Neutrophils Absolute Auto 13.5 1.4-6.5 10 3/uL Lymphocytes Absolute Auto 0.8 1.2-3.8 10 3/uL Monocytes Absolute Auto 0.7 0.3-0.8 10 3/uL Eosinophils Absolute Auto 0.0 0.0-0.7 10 3/uL Basophils Absolute Auto 0.0 0.0-0.1 10 3/uL Immature Granulocytes Abs Auto 0.11 0.00-0.03 10 3/uL Performing Lab: see note ML - [facility] LB CBC AUTO DIFF Reviewed date:08/10/2024 03:10:26 PM Interpretation: Performing Lab: Notes/Report: [facility] , White Blood Count 24.7 4.0-11.0 10 3/uL Red Blood Count 5.40 4.70-6.10 10 6/uL Hemoglobin 15.7 14.0-18.0 g/dL Hematocrit 46.5 42.0-54.0 % Mean Corpuscular Volume 86.1 80.0-94.0 fL Mean Corpuscular Hemoglobin 29.1 25.9-34.0 pg Mean Corpuscular HGB Conc 33.8 29.9-35.2 g/dL Red Cell Distribution Width 13.2 11.0-15.0 % Platelet Count 334 150-450 10 3/uL Mean Platelet Volume 11.8 9.5-13.5 fL Performing Lab: see note ML - [facility] LB DRUG SCREEN RAPID (URINE) Reviewed date:08/10/2024 03:10:26 PM Interpretation: Performing Lab: Notes/Report: [facility] , Cannabinoid Screen Urine POSITIVE NEGATIVE Phencyclidine Screen Urine NEGATIVE NEGATIVE Cocaine Screen Urine NEGATIVE NEGATIVE Methamphetamines Screen Urine NEGATIVE NEGATIVE Opiate Screen Urine POSITIVE NEGATIVE Amphetamine Screen Urine NEGATIVE NEGATIVE Benzodiazepines Screen Urine NEGATIVE NEGATIVE Tricyclic Antidepressant Urine NEGATIVE NEGATIVE Methadone Screen Urine NEGATIVE NEGATIVE Barbiturates Screen Urine NEGATIVE NEGATIVE Oxycodone Screen Urine NEGATIVE NEGATIVE Buprenorphine Screen Urine NEGATIVE NEGATIVE DRUG CLASS TEST SYSTEM CUT-OFF CONCENTRATIONS ARE FOLLOWS: AMP (Amphetamine): 500 ng/mL BAR (Barbiturates): 200 ng/mL BZO (Benzodiazepines): 150 ng/mL BUP (Buprenorphine): 10 ng/mL ONOFRE (Cocaine): 150 ng/mL mAMP (Methamphetamine): 500 ng/mL MTD (Methadone): 200 ng/mL OPI (Opiates): 100 ng/mL OXY (Oxycodone): 100 ng/mL PCP (Phencyclidine): 25 ng/mL THC (Cannabinoids): 50 ng/mL TCA (Trycyclic Antidepressants): 300 ng/mL Performing Lab: see note ML - [facility] LB MAGNESIUM Reviewed date:08/10/2024 03:10:26 PM Interpretation: Performing Lab: Notes/Report: Comment ok to add to ER labs [facility] , Magnesium 2.8 1.8-2.4 mg/dL Performing Lab: see note - [facility] LB PROF 14(COMP METB) Reviewed date:08/10/2024 03:10:26 PM Interpretation: Performing Lab: Notes/Report: [facility] , Sodium 143 136-145 mmol/L Potassium 3.6 3.5-5.1 mmol/L Chloride 104 98-107 mmol/L Carbon Dioxide 31.7 21.0-32.0 mmol/L Anion Gap 10.9 Glucose 153 74-106 mg/dL Blood Urea Nitrogen 19.0 7.0-18.0 mg/dL Creatinine 0.79 0.70-1.30 mg/dL Estimated GFR ( Cinthia >60 >=60 mL/min/1.73m 2 Estimated GFR (Non- Sabine >60 >=60 mL/min/1.73m 2 BUN Creatinine Ratio 24.1 Calcium 8.0 8.5-10.1 mg/dL Bilirubin Total 0.3 0.2-1.0 mg/dL Aspartate Amino Transferase 9 15-37 U/L Alanine Aminotransferase 14 16-63 U/L Alkaline Phosphatase 92 46-116 U/L Total Protein 6.3 6.4-8.2 g/dL Albumin Level 3.3 3.4-5.0 g/dL Globulin 3.0 Albumin Globulin Ratio 1.1 Performing Lab: see note - [facility] LB Blood Culture 1 Reviewed date:08/18/2024 01:51:36 PM Interpretation: Performing Lab: Notes/Report: LEFT HAND [facility] , Blood Culture 1 See Below For Report Blood Culture 1 NG5D NO GROWTH AT 5 DAYS.^NO GROWTH AT 5 DAYS. Performing Lab: see note - [facility] LB Blood Culture 2 Reviewed date:08/18/2024 01:51:36 PM Interpretation: Performing Lab: Notes/Report: RIGHT AC [facility] , Blood Culture 2 See Below For Report Blood Culture 2 NG5D NO GROWTH AT 5 DAYS.^NO GROWTH AT 5 DAYS. Performing Lab: see note [facility] LB Manual Differential Reviewed date:08/10/2024 03:10:26 PM Interpretation: Performing Lab: Notes/Report: [facility] , Segmented Neutrophils % Manual 86.0 43.0-75.0 Lymphocytes Percent Manual 6.0 20.5-60.0 % Monocytes Percent Manual 8.0 1.7-12.0 % Eosinophils Percent Manual 0.0 0.9-7.0 % Basophils Percent Manual 0.0 0.2-2.0 % Segmented Neut Absolute Manual 21.24 1.4-6.5 10 3/uL Lymphocytes Absolute Manual 1.48 1.20-3.80 10 3/uL Monocytes Absolute Manual 1.97 0.30-0.80 10 3/ uL Eosinophils Absolute Manual 0.00 0.00-0.70 10 3/uL Basophils Abs Manual 0.00 0.00-0.10 10 3/uL Performing Lab: see note - [facility] LB Troponin I High Sensitivity Reviewed date:08/10/2024 03:10:26 PM Interpretation: Performing Lab: Notes/Report: [facility] , Troponin I High Sensitivity 5.4 4.0-76.1 pg/mL CUT-OFF POINTS HAVE BEEN ESTABLISHED BASED ON THE FOURTH UNIVERSAL DEFINITION OF MYOCARDIAL INFARCTION. THE UPPER REFERENCE LIMIT (URL) OF TROPONIN, DEFINED THE 99TH PERCENTILE OF cTnI DISTRIBUTION IN A REFERENCE POPULATION, HAS BEEN CONFIRMED THE DECISION THRESHOLD FOR DC DIAGNOSIS. 99TH PERCENTILE = 76.2 PG/ML NOTE: HIGH-SENSITIVITY TROPONIN ASSAY IS NOT INTENDED TO BE USED IN ISOLATION BUT SHOULD BE INTERPRETED IN CONJUNCTION WITH OTHER DIAGNOSTIC AND CLINICAL INFORMATION. Performing Lab: see note ML - [facility] Ethanol Reviewed date:08/10/2024 03:10:26 PM Interpretation: Performing Lab: Notes/Report: [facility] , Ethanol 21 NOTE: 80 mg/dl is the legal limit for a blood alcohol level Performing Lab: see note - [facility] ECG 12 lead Reviewed date:08/10/2024 03:10:26 PM Interpretation: Performing Lab: Notes/Report: Source Facility: [facility]-[address] [place] [address] [place] [address] Electrocardiograph Report Signed Patient: LUIS SOLOMON MR#: [id number] : 1990 Acct:[id number] Age/Sex: 33 / M ADM Date: 08/09/24 Loc: ICU 273-[address]: Nicola Wyatt D.O. 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 Measurements Intervals Kimball Rate: 124 P: 44 NE: 144 QRS: 191 QRSD: 82 T: 48 QT: 280 QTc: 353 Interpretive Statements 1120 Sinus tachycardia [address] depression 5120 Possible right ventricular hypertrophy 8305 Short QTc interval 0102 ARTIFACT PRESENT 9150 abnormal ECG Compared to ECG 07/03/2024 06:14:29 ST (T wave) deviation now present Left posterior fascicular block no longer present Electronically Signed On 08-09-2024 17:06:04 EDT by JACOBY WILLSON M.D. Dictated By: JACOBY WILLSON Signed By: 08/09/24 1706 DD/ 0921 TD/TT: Photograph Printer: VANCOMYCIN TROUGH Reviewed date:08/10/2024 03:10:25 PM Interpretation: Performing Lab: Notes/Report: [facility] , Vancomycin Trough 11.0 5.0-20.0 ug/mL Performing Lab: see note ML - [facility] LB CBC AUTO DIFF Reviewed date:08/12/2024 08:28:59 AM Interpretation: Performing Lab: Notes/Report: [facility] , White Blood Count 15.1 4.0-11.0 10 3/uL Red Blood Count 4.85 4.70-6.10 10 6/uL Hemoglobin 13.8 14.0-18.0 g/dL Hematocrit 42.0 42.0-54.0 % Mean Corpuscular Volume 86.6 80.0-94.0 fL Mean Corpuscular Hemoglobin 28.5 25.9-34.0 pg Mean Corpuscular HGB Conc 32.9 29.9-35.2 g/dL Red Cell Distribution Width 12.9 11.0-15.0 % Platelet Count 336 150-450 10 3/uL Mean Platelet Volume 11.3 9.5-13.5 fL Neutrophils Percent Auto 89.0 43.0-75.0 % Lymphocytes Percent Auto 4.3 20.5-60.0 % Monocytes Percent Auto 4.1 1.7-12.0 % Eosinophils Percent Auto 0.4 0.9-7.0 % Basophils Percent Auto 0.2 0.2-2.0 % Immature Granulocytes Pct Auto 2.0 0.0-0.5 % Neutrophils Absolute Auto 13.4 1.4-6.5 10 3/uL Lymphocytes Absolute Auto 0.6 1.2-3.8 10 3/uL Monocytes Absolute Auto 0.6 0.3-0.8 10 3/uL Eosinophils Absolute Auto 0.1 0.0-0.7 10 3/uL Basophils Absolute Auto 0.0 0.0-0.1 10 3/uL Immature Granulocytes Abs Auto 0.30 0.00-0.03 10 3/uL Performing Lab: see note - [facility] LB PROF CHEM 8 (BAS METB) Reviewed date:08/12/2024 09:10:33 AM Interpretation: Performing Lab: Notes/Report: [facility] , Sodium 141 136-145 mmol/L Potassium 4.1 3.5-5.1 mmol/L Chloride 105 98-107 mmol/L Carbon Dioxide 29.9 21.0-32.0 mmol/L Anion Gap 10.2 Glucose 167 74-106 mg/dL Blood Urea Nitrogen 22.0 7.0-18.0 mg/dL Creatinine 0.84 0.70-1.30 mg/dL Estimated GFR ( Cinthia >60 >=60 mL/min/1.73m 2 Estimated GFR (Non- Sabine >60 >=60 mL/min/1.73m 2 BUN Creatinine Ratio 26.2 Calcium 8.0 8.5-10.1 mg/dL Performing Lab: see note - [facility] LB Gram Stain Evaluation Reviewed date:08/18/2024 01:51:36 PM Interpretation: Performing Lab: Notes/Report: [facility] , Gram Stain Evaluation See Below For Report Gram Stain Evaluation This specimen is of good quality and is acceptable for routine Gram Stain Evaluation bacterial culture. Gram Stain Evaluation This specimen is of good quality and is acceptable for routine Performing Lab: see note LC - [facility] LB PROF CHEM 8 (BAS METB) Reviewed date:08/13/2024 07:49:50 PM Interpretation: Performing Lab: Notes/Report: [facility] , Sodium 141 136-145 mmol/L Potassium 4.1 3.5-5.1 mmol/L Chloride 104 98-107 mmol/L Carbon Dioxide 29.1 21.0-32.0 mmol/L Anion Gap 12.0 Glucose 185 74-106 mg/dL Blood Urea Nitrogen 22.0 7.0-18.0 mg/dL Creatinine 0.81 0.70-1.30 mg/dL Estimated GFR ( Cinthia >60 >=60 mL/min/1.73m 2 Estimated GFR (Non- Sabine >60 >=60 mL/min/1.73m 2 BUN Creatinine Ratio 27.2 Calcium 8.0 8.5-10.1 mg/dL Performing Lab: see note ML - [facility] LB CBC AUTO DIFF Reviewed date:02/09/2025 10:41:20 AM Interpretation: Performing Lab: Notes/Report: [facility] , White Blood Count 6.1 4.0-11.0 10 3/uL Red Blood Count 5.31 4.70-6.10 10 6/uL Hemoglobin 15.1 14.0-18.0 g/dL Hematocrit 45.2 42.0-54.0 % Mean Corpuscular Volume 85.1 80.0-94.0 fL Mean Corpuscular Hemoglobin 28.4 25.9-34.0 pg Mean Corpuscular HGB Conc 33.4 29.9-35.2 g/dL Red Cell Distribution Width 13.6 11.0-15.0 % Platelet Count 281 150-450 10 3/uL Mean Platelet Volume 11.5 9.5-13.5 fL Neutrophils Percent Auto 55.2 43.0-75.0 % Lymphocytes Percent Auto 29.4 20.5-60.0 % Monocytes Percent Auto 11.9 1.7-12.0 % Eosinophils Percent Auto 1.5 0.9-7.0 % Basophils Percent Auto 1.8 0.2-2.0 % Immature Granulocytes Pct Auto 0.2 0.0-0.5 % Neutrophils Absolute Auto 3.4 1.4-6.5 10 3/uL Lymphocytes Absolute Auto 1.8 1.2-3.8 10 3/uL Monocytes Absolute Auto 0.7 0.3-0.8 10 3/uL Eosinophils Absolute Auto 0.1 0.0-0.7 10 3/uL Basophils Absolute Auto 0.1 0.0-0.1 10 3/uL Immature Granulocytes Abs Auto 0.01 0.00-0.03 10 3/uL Performing Lab: see note ML - [facility] LB LACTATE or LACTIC ACID Reviewed date:02/09/2025 10:41:20 AM Interpretation: Performing Lab: Notes/Report: [facility] , Lactate/Lactic Acid 1.0 0.4-2.0 mmol/L Performing Lab: see note ML - [facility] LB LIPASE Reviewed date:02/09/2025 10:41:20 AM Interpretation: Performing Lab: Notes/Report: [facility] , Lipase 38.0 16.0-77.0 U/L Performing Lab: see note ML - [facility] LB PROF 14(COMP METB) Reviewed date:02/09/2025 10:41:20 AM Interpretation: Performing Lab: Notes/Report: [facility] , Sodium 144 136-145 mmol/L Potassium 3.6 3.5-5.1 mmol/L Chloride 107 98-107 mmol/L Carbon Dioxide 29.1 21.0-32.0 mmol/L Anion Gap 11.5 Glucose 76 74-106 mg/dL Blood Urea Nitrogen 11.0 7.0-18.0 mg/dL Creatinine 0.80 0.70-1.30 mg/dL Estimated GFR ( Cinthia >60 >=60 mL/min/1.73m 2 Estimated GFR (Non- Sabine >60 >=60 mL/min/1.73m 2 BUN Creatinine Ratio 13.8 Calcium 8.3 8.5-10.1 mg/dL Bilirubin Total 0.4 0.2-1.0 mg/dL Aspartate Amino Transferase 14 15-37 U/L Alanine Aminotransferase 18 16-63 U/L Alkaline Phosphatase 97 46-116 U/L Total Protein 7.0 6.4-8.2 g/dL Albumin Level 3.7 3.4-5.0 g/dL Globulin 3.3 Albumin Globulin Ratio 1.1 Performing Lab: see note ML - [facility] LB UA Micro, reflex to culture Reviewed date:02/09/2025 10:41:20 AM Interpretation: Performing Lab: Notes/Report: [facility] , Color Urine YELLOW YELLOW Clarity Urine SL CLOUDY CLEAR Specific [place] Urine 1.025 1.005-1.025 pH Urine 6.5 5.0-9.0 Protein Urine NEGATIVE NEG/TRACE mg/dL Glucose Urine UA NEGATIVE NEGATIVE mg/dL Bilirubin Urine NEGATIVE NEGATIVE Ketones Urine NEGATIVE NEGATIVE mg/dL Blood Urine NEGATIVE NEGATIVE Nitrite Urine NEGATIVE NEGATIVE Urobilinogen Urine 1.0 0.2-1.0 EU/dL Leukocyte Esterase Urine NEGATIVE NEGATIVE WBC Urine 0-2 NONE SEEN #/HPF RBC Urine 2-5 0-2 #/HPF Bacteria Urine TRACE NONE SEEN #/HPF Mucus Urine NONE SEEN NONE SEEN Squamous Epithelial Cell Urine NONE SEEN NONE/RARE #/LPF Crystals Seen? Seen None Seen #/HPF Amorphous Sediment Urine RARE Cast Seen? NONE SEEN NONE SEEN #/LPF Urine Culture Indicated NO Performing Lab: see note ML - [facility] LB PROF CHEM 8 (BAS METB) Reviewed date:05/11/2024 07:48:02 PM Interpretation: Performing Lab: Notes/Report: [facility] , Sodium 142 136-145 mmol/L Potassium 3.9 3.5-5.1 mmol/L Chloride 105 98-107 mmol/L Carbon Dioxide 28.8 21.0-32.0 mmol/L Anion Gap 12.1 Glucose 170 74-106 mg/dL Blood Urea Nitrogen 16.0 7.0-18.0 mg/dL Creatinine 0.93 0.70-1.30 mg/dL Estimated GFR ( Cinthia >60 >=60 mL/min/1.73m 2 Estimated GFR (Non- Sabine >60 >=60 mL/min/1.73m 2 BUN Creatinine Ratio 17.2 Calcium 8.2 8.5-10.1 mg/dL Performing Lab: see note ML - [facility] LB XR chest 1V Reviewed date:05/11/2024 07:48:02 PM Interpretation: Performing Lab: Notes/Report: Source Facility: [facility]-[address] [place] [address] [place] [address] XRay Report Signed Patient: LUIS SOLOMON MR#: [id number] : 1990 Acct:[id number] Age/Sex: 33 / M ADM Date: 05/08/24 Loc: MS 213-[address]: Nicola Wyatt D.O. Ordering Physician: Nicola Wyatt D.O. Date of Service: 05/10/24 Procedure(s): XR chest 1V Accession Number(s): [id number] cc: NEETU BARBOZA ; Nicola Wyatt D.O. The [address] [address] Patient Name: LUIS SOLOMON MRN: [id number] date: 1990 Sex: M Assigned Patient Location: MS Current Patient Location: MS Accession/Order Number: [id number] Exam Date: 05/10/2024 10:25 Report Date: 05/10/2024 11:13 At the request of: NICOLA WYATT Procedure: XR chest 1V FRONTAL CHEST; 05/10/2024 10:25 AM EST Clinical History:shortness of breath Comparison: 05/08/[address] 02/24/2024 . No apparent change osseous structures. No change cardiac and mediastinal silhouettes or giselle. Again, right heart border is partially effaced. Again, slight increased markings at the left base. Right CP angle remains sharp. Left CP angle is again slightly blunted. No interval vascular distention or Dax-B lines. XR/XR chest 1V IMPRESSION: 1. No interval change. 2. In correlation with recent CT cicatrizing atelectasis with underlying bronchiectasis in the right lower lobe and in aspects of the left lower lobe. Electronically authenticated by: FABIENNE ROBERTSON Date: 05/10/2024 11:13 Dictated By: Fabienne Robertson M.D. Signed By: 05/10/24 1115 DD/ 1113 TD/TT: Photograph Printer: PROF SIM Downey ([facility]) Reviewed date:05/11/2024 07:48:02 PM Interpretation: Performing Lab: Notes/Report: [facility] , Sodium 144 136-145 mmol/L Potassium 4.0 3.5-5.1 mmol/L Chloride 106 98-107 mmol/L Carbon Dioxide 28.5 21.0-32.0 mmol/L Anion Gap 13.5 Glucose 171 74-106 mg/dL Blood Urea Nitrogen 17.0 7.0-18.0 mg/dL Creatinine 1.08 0.70-1.30 mg/dL Estimated GFR ( Cinthia >60 >=60 mL/min/1.73m 2 Estimated GFR (Non- Sabine >60 >=60 mL/min/1.73m 2 BUN Creatinine Ratio 15.7 Calcium 8.7 8.5-10.1 mg/dL Performing Lab: see note ML - [facility] LB SARS-CoV-2 Ag* Reviewed date:05/09/2024 01:58:21 PM Interpretation: Performing Lab: Notes/Report: [facility] , SARS-CoV-2 Ag NEGATIVE NEGATIVE This test has not been FDA cleared or approved, but has been authorized by the FDA under an Emergency Use Authorization (EUA) for use by authorized laboratories certified under CLIA that meet the requirements to perform moderate or high complexity testing. This test has been authorized only for the detection of proteins from SARS-CoV-2, not for any other viruses or pathogens. The emergency use of this test is authorized for the duration of the declaration that circumstances exist justifying the authorization of emergency use of in vitro diagnostic tests for detection and/or diagnosis of Covid-19 under section 564(b)(1) of the Act, 21 U.S.C. 360bbb-3(b)(1), unless the declaration is terminated or authorization is revoked sooner. Performing Lab: see note ML - [facility] LB INFLUENZA A AND B AG Reviewed date:05/09/2024 01:58:21 PM Interpretation: Performing Lab: Notes/Report: [facility] , Influenza Virus A Antigen Negative Negative for Flu A protein antigen. Infection due to Flu A cannot be ruled out. Flu A antigen in the sample may be below the detection limit of the test. Influenza Virus B Antigen Negative Negative for Flu B protein antigen. Infection due to Flu B cannot be ruled out. Flu B antigen in the sample may be below the detection limit of the test. Performing Lab: see note ML - [facility] LB CBC AUTO DIFF Reviewed date:05/13/2024 08:46:42 AM Interpretation: Performing Lab: Notes/Report: [facility] , White Blood Count 13.0 4.0-11.0 10 3/uL Red Blood Count 5.05 4.70-6.10 10 6/uL Hemoglobin 14.8 14.0-18.0 g/dL Hematocrit 45.2 42.0-54.0 % Mean Corpuscular Volume 89.5 80.0-94.0 fL Mean Corpuscular Hemoglobin 29.3 25.9-34.0 pg Mean Corpuscular HGB Conc 32.7 29.9-35.2 g/dL Red Cell Distribution Width 12.7 11.0-15.0 % Platelet Count 322 150-450 10 3/uL Mean Platelet Volume 11.3 9.5-13.5 fL Performing Lab: see note ML - [facility] LB INFLUENZA A AND B AG Reviewed date:05/13/2024 08:46:42 AM Interpretation: Performing Lab: Notes/Report: [facility] , Influenza Virus A Antigen Negative Negative for Flu A protein antigen. Infection due to Flu A cannot be ruled out. Flu A antigen in the sample may be below the detection limit of the test. Influenza Virus B Antigen Negative Negative for Flu B protein antigen. Infection due to Flu B cannot be ruled out. Flu B antigen in the sample may be below the detection limit of the test. Performing Lab: see note ML - [facility] LB PROF CHEM 8 (BAS METB) Reviewed date:05/13/2024 08:46:42 AM Interpretation: Performing Lab: Notes/Report: [facility] , Sodium 145 136-145 mmol/L Potassium 3.4 3.5-5.1 mmol/L Chloride 107 98-107 mmol/L Carbon Dioxide 30.6 21.0-32.0 mmol/L Anion Gap 10.8 Glucose 91 74-106 mg/dL Blood Urea Nitrogen 15.0 7.0-18.0 mg/dL Creatinine 0.93 0.70-1.30 mg/dL Estimated GFR ( Cinthia >60 >=60 mL/min/1.73m 2 Estimated GFR (Non- Sabine >60 >=60 mL/min/1.73m 2 BUN Creatinine Ratio 16.1 Calcium 8.1 8.5-10.1 mg/dL Performing Lab: see note ML - [facility] LB Blood Culture 1 Reviewed date:05/19/2024 08:28:39 AM Interpretation: Performing Lab: Notes/Report: [facility] , Blood Culture 1 See Below For Report Blood Culture 1 NG5D NO GROWTH AT 5 DAYS. Performing Lab: see note ML - [facility] LB Blood Culture 2 Reviewed date:05/19/2024 08:28:39 AM Interpretation: Performing Lab: Notes/Report: [facility] , Blood Culture 2 See Below For Report Blood Culture 2 NG5D NO GROWTH AT 5 DAYS. Performing Lab: see note ML - [facility] LB Manual Differential Reviewed date:05/13/2024 08:46:42 AM Interpretation: Performing Lab: Notes/Report: [facility] , Segmented Neutrophils % Manual 71.0 43.0-75.0 Lymphocytes Percent Manual 18.0 20.5-60.0 % Monocytes Percent Manual 9.0 1.7-12.0 % Eosinophils Percent Manual 0.0 0.9-7.0 % Basophils Percent Manual 0.0 0.2-2.0 % Metamyelocytes % 2.0 Segmented Neut Absolute Manual 9.23 1.4-6.5 10 3/uL Lymphocytes Absolute Manual 2.34 1.20-3.80 10 3/uL Monocytes Absolute Manual 1.17 0.30-0.80 10 3/ uL Eosinophils Absolute Manual 0.00 0.00-0.70 10 3/uL Basophils Abs Manual 0.00 0.00-0.10 10 3/uL Metamyelocytes Absolute Manual 0.26 Performing Lab: see note ML - [facility] LB SARS-CoV-2 Ag* Reviewed date:05/13/2024 08:46:42 AM Interpretation: Performing Lab: Notes/Report: [facility] , SARS-CoV-2 Ag NEGATIVE NEGATIVE This test has not been FDA cleared or approved, but has been authorized by the FDA under an Emergency Use Authorization (EUA) for use by authorized laboratories certified under CLIA that meet the requirements to perform moderate or high complexity testing. This test has been authorized only for the detection of proteins from SARS-CoV-2, not for any other viruses or pathogens. The emergency use of this test is authorized for the duration of the declaration that circumstances exist justifying the authorization of emergency use of in vitro diagnostic tests for detection and/or diagnosis of Covid-19 under section 564(b)(1) of the Act, 21 U.S.C. 360bbb-3(b)(1), unless the declaration is terminated or authorization is revoked sooner. Performing Lab: see note ML - [facility] LB ECG 12 lead Reviewed date:05/14/2024 10:25:57 AM Interpretation: Performing Lab: Notes/Report: Source Facility: [place] [address] Electrocardiograph Report Signed Patient: LUIS SOLOMON MR#: [id number] : 1990 Acct:[id number] Age/Sex: 33 / M ADM Date: 05/13/24 Loc: MS 203-[address]: Maryanne Elkins M.D. Ordering Physician: Mark Nieto M.D. 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1990 Requested By: NEETU BARBOZA Order Number: [id number] Reading MD: NITISH ZAMORA Measurements Intervals Kimball Rate: 75 P: 30 NE: 122 QRS: 102 QRSD: 88 T: 72 QT: 350 QTc: 379 Interpretive Statements 1100 Sinus rhythm 1470 with occasional supraventricular premature complexes 2420 RSR (QR) in lead V1/V2, consistent with right ventricular conduction delay 7100 Abnormal right axis deviation 9140 abnormal rhythm ECG Compared to ECG 05/08/2024 07:52:54 Right-axis deviation now present Short NE interval no longer present Electronically Signed On 05-13-2024 19:31:11 EST by NITISH ZAMORA Dictated By: Nitish Zamora D.O. Signed By: 05/13/241930 DD/ 0729 TD/TT: Photograph Printer: DELFINO chest 1V Reviewed date:05/13/2024 08:46:42 AM Interpretation: Performing Lab: Notes/Report: Source Facility: [place] [address] The [place] [id number] XRay Report Signed Patient: LUIS SOLOMON MR#: [id number] : 1990 Acct:[id number] Age/Sex: 33 / M ADM Date: 05/13/24 Loc: ER Attending Dr: Ordering Physician: Mark Nieto M.D. Date of Service: 05/13/24 Procedure(s): XR chest 1V Accession Number(s): [id number] cc: NEETU BARBOZA ; Mark Nieto M.D. The [place] [address] Patient Name: LUIS SOLOMON MRN: [id number] date: 1990 Sex: M Assigned Patient Location: ER Current Patient Location: ER Accession/Order Number: [id number] Exam Date: 05/13/2024 07:30 Report Date: 05/13/2024 07:56 At the request of: MARK NIETO Procedure: XR chest 1V EXAM: XR chest 1V HISTORY: SOB COMPARISON: Chest radiographs dated 05/10/2024, 05/08/2024 and 03/05/2024. TECHNIQUE: AP erect portable chest radiograph performed. FINDINGS: The heart size is within normal limits and stable. Stable density at the right hilar/infrahilar regions and left lung base. Stable mild blunting of the bilateral lateral costophrenic angles consistent with a small amount of pleural fluid. There is no pulmonary vascular congestion. There is no pneumothorax or acute osseous abnormality. XR/XR chest 1V IMPRESSION: There is no acute cardiopulmonary process. Stable density at the right hilar/infrahilar regions and left lung base. Stable mild blunting of the bilateral lateral costophrenic angles consistent with a small amount of pleural fluid. Electronically authenticated by: JILLIAN LOVETT Date: 05/13/2024 07:56 Dictated By: Jillian Lovett M.D. Signed By: 05/13/24 0758 DD/ 0756 TD/TT: Photograph Printer: CBC AUTO DIFF Reviewed date:05/14/2024 03:54:09 PM Interpretation: Performing Lab: Notes/Report: [facility] , White Blood Count 11.5 4.0-11.0 10 3/uL Red Blood Count 4.85 4.70-6.10 10 6/uL Hemoglobin 14.3 14.0-18.0 g/dL Hematocrit 42.4 42.0-54.0 % Mean Corpuscular Volume 87.4 80.0-94.0 fL Mean Corpuscular Hemoglobin 29.5 25.9-34.0 pg Mean Corpuscular HGB Conc 33.7 29.9-35.2 g/dL Red Cell Distribution Width 12.1 11.0-15.0 % Platelet Count 321 150-450 10 3/uL Mean Platelet Volume 11.3 9.5-13.5 fL Neutrophils Percent Auto 87.6 43.0-75.0 % Lymphocytes Percent Auto 6.1 20.5-60.0 % Monocytes Percent Auto 3.0 1.7-12.0 % Eosinophils Percent Auto 0.0 0.9-7.0 % Basophils Percent Auto 0.2 0.2-2.0 % Immature Granulocytes Pct Auto 3.1 0.0-0.5 % Neutrophils Absolute Auto 10.1 1.4-6.5 10 3/uL Lymphocytes Absolute Auto 0.7 1.2-3.8 10 3/uL Monocytes Absolute Auto 0.3 0.3-0.8 10 3/uL Eosinophils Absolute Auto 0.0 0.0-0.7 10 3/uL Basophils Absolute Auto 0.0 0.0-0.1 10 3/uL Immature Granulocytes Abs Auto 0.35 0.00-0.03 10 3/uL Performing Lab: see note ML - [facility] LB LACTATE or LACTIC ACID Reviewed date:05/08/2024 11:23:40 AM Interpretation: Performing Lab: Notes/Report: [facility] , Lactate/Lactic Acid 1.1 0.4-2.0 mmol/L Performing Lab: see note ML - [facility] LB PROF CHEM 8 (BAS METB) Reviewed date:05/14/2024 03:54:09 PM Interpretation: Performing Lab: Notes/Report: [facility] , Sodium 140 136-145 mmol/L Potassium 3.5 3.5-5.1 mmol/L Chloride 102 98-107 mmol/L Carbon Dioxide 26.9 21.0-32.0 mmol/L Anion Gap 14.6 Glucose 178 74-106 mg/dL Blood Urea Nitrogen 18.0 7.0-18.0 mg/dL Creatinine 1.01 0.70-1.30 mg/dL Estimated GFR ( Cinthia >60 >=60 mL/min/1.73m 2 Estimated GFR (Non- Sabine >60 >=60 mL/min/1.73m 2 BUN Creatinine Ratio 17.8 Calcium 8.4 8.5-10.1 mg/dL Performing Lab: see note ML - [facility] LB THEOPHYLLINE Reviewed date:05/14/2024 03:54:09 PM Interpretation: Performing Lab: Notes/Report: [facility] , Theophylline 6.2 10.0-20.0 ug/mL --- 05/14/24622 --- Hector previously reported as: 6.2 L ug/mL Performing Lab: see note - [facility] LB BNP Reviewed date:05/26/2024 08:18:37 AM Interpretation: Performing Lab: Notes/Report: [facility] , NT Pro B Type Natriuretic Pept 14.0 <=450.0 pg/mL Performing Lab: see note - [facility] LB CBC AUTO DIFF Reviewed date:05/26/2024 08:18:37 AM Interpretation: Performing Lab: Notes/Report: [facility] , White Blood Count 9.7 4.0-11.0 10 3/uL Red Blood Count 5.11 4.70-6.10 10 6/uL Hemoglobin 15.2 14.0-18.0 g/dL Hematocrit 45.4 42.0-54.0 % Mean Corpuscular Volume 88.8 80.0-94.0 fL Mean Corpuscular Hemoglobin 29.7 25.9-34.0 pg Mean Corpuscular HGB Conc 33.5 29.9-35.2 g/dL Red Cell Distribution Width 12.4 11.0-15.0 % Platelet Count 246 150-450 10 3/uL Mean Platelet Volume 12.0 9.5-13.5 fL Neutrophils Percent Auto 73.2 43.0-75.0 % Lymphocytes Percent Auto 14.6 20.5-60.0 % Monocytes Percent Auto 10.2 1.7-12.0 % Eosinophils Percent Auto 0.9 0.9-7.0 % Basophils Percent Auto 0.2 0.2-2.0 % Immature Granulocytes Pct Auto 0.9 0.0-0.5 % Neutrophils Absolute Auto 7.1 1.4-6.5 10 3/uL Lymphocytes Absolute Auto 1.4 1.2-3.8 10 3/uL Monocytes Absolute Auto 1.0 0.3-0.8 10 3/uL Eosinophils Absolute Auto 0.1 0.0-0.7 10 3/uL Basophils Absolute Auto 0.0 0.0-0.1 10 3/uL Immature Granulocytes Abs Auto 0.09 0.00-0.03 10 3/uL Performing Lab: see note ML - [facility] LB INFLUENZA A AND B AG Reviewed date:05/26/2024 08:18:37 AM Interpretation: Performing Lab: Notes/Report: [facility] , Influenza Virus A Antigen Negative Negative for Flu A protein antigen. Infection due to Flu A cannot be ruled out. Flu A antigen in the sample may be below the detection limit of the test. Influenza Virus B Antigen Negative Negative for Flu B protein antigen. Infection due to Flu B cannot be ruled out. Flu B antigen in the sample may be below the detection limit of the test. Performing Lab: see note ML - [facility] LB LACTATE or LACTIC ACID Reviewed date:05/08/2024 09:48:13 AM Interpretation: Performing Lab: Notes/Report: [facility] , Lactate/Lactic Acid 2.3 0.4-2.0 mmol/L RESULT S CALLED TO DR COSTA/ER Performing Lab: see note ML - [facility] LB LACTATE or LACTIC ACID Reviewed date:05/26/2024 08:18:37 AM Interpretation: Performing Lab: Notes/Report: [facility] , Lactate/Lactic Acid 1.0 0.4-2.0 mmol/L Performing Lab: see note ML - [facility] LB PROF 14(COMP METB) Reviewed date:05/26/2024 08:18:37 AM Interpretation: Performing Lab: Notes/Report: [facility] , Sodium 140 136-145 mmol/L Potassium 4.1 3.5-5.1 mmol/L Chloride 105 98-107 mmol/L Carbon Dioxide 29.8 21.0-32.0 mmol/L Anion Gap 9.3 Glucose 107 74-106 mg/dL Blood Urea Nitrogen 16.0 7.0-18.0 mg/dL Creatinine 1.00 0.70-1.30 mg/dL Estimated GFR ( Cinthia >60 >=60 mL/min/1.73m 2 Estimated GFR (Non- Sabine >60 >=60 mL/min/1.73m 2 BUN Creatinine Ratio 16.0 Calcium 9.1 8.5-10.1 mg/dL Bilirubin Total 0.5 0.2-1.0 mg/dL Aspartate Amino Transferase 22 15-37 U/L Alanine Aminotransferase 31 16-63 U/L Alkaline Phosphatase 99 46-116 U/L Total Protein 6.6 6.4-8.2 g/dL Albumin Level 3.3 3.4-5.0 g/dL Globulin 3.3 Albumin Globulin Ratio 1.0 Performing Lab: see note - [facility] RSV Reviewed date:05/26/2024 08:18:37 AM Interpretation: Performing Lab: Notes/Report: [facility] , Respiratory Syncytial Virus Not Detected NOT DETECTE Performing Lab: see note - [facility] Prothrombin Time INR Reviewed date:05/26/2024 08:18:37 AM Interpretation: Performing Lab: Notes/Report: [facility] , Prothrombin Time 10.2 9.0-11.6 sec INR 0.96 DESIRED INR: 2.0-3.0 CONDITIONS NOT LISTED BELOW 2.5-3.5 FOR PROSTHETIC HEART VALVE REPLACEMENT 2.5-3.5 RECURRENT THROMBOSIS Performing Lab: see note - [facility] Troponin I High Sensitivity Reviewed date:05/26/2024 08:18:37 AM Interpretation: Performing Lab: Notes/Report: [facility] , Troponin I High Sensitivity 4.6 4.0-76.1 pg/mL CUT-OFF POINTS HAVE BEEN ESTABLISHED BASED ON THE FOURTH UNIVERSAL DEFINITION OF MYOCARDIAL INFARCTION. THE UPPER REFERENCE LIMIT (URL) OF TROPONIN, DEFINED THE 99TH PERCENTILE OF cTnI DISTRIBUTION IN A REFERENCE POPULATION, HAS BEEN CONFIRMED THE DECISION THRESHOLD FOR DC DIAGNOSIS. 99TH PERCENTILE = 76.2 PG/ML NOTE: HIGH-SENSITIVITY TROPONIN ASSAY IS NOT INTENDED TO BE USED IN ISOLATION BUT SHOULD BE INTERPRETED IN CONJUNCTION WITH OTHER DIAGNOSTIC AND CLINICAL INFORMATION. Performing Lab: see note ML - [facility] LB Venous Blood Gas Reviewed date:05/26/2024 08:18:37 AM Interpretation: Performing Lab: Notes/Report: [facility] , pH VBG 7.442 7.330-7.430 PCO2 VBG 42.5 40.0-52.0 mmHg Performing Lab: see note ML - [facility] LB SARS-CoV-2 Ag* Reviewed date:05/26/2024 08:18:37 AM Interpretation: Performing Lab: Notes/Report: [facility] , SARS-CoV-2 Ag NEGATIVE NEGATIVE This test has not been FDA cleared or approved, but has been authorized by the FDA under an Emergency Use Authorization (EUA) for use by authorized laboratories certified under CLIA that meet the requirements to perform moderate or high complexity testing. This test has been authorized only for the detection of proteins from SARS-CoV-2, not for any other viruses or pathogens. The emergency use of this test is authorized for the duration of the declaration that circumstances exist justifying the authorization of emergency use of in vitro diagnostic tests for detection and/or diagnosis of Covid-19 under section 564(b)(1) of the Act, 21 U.S.C. 360bbb-3(b)(1), unless the declaration is terminated or authorization is revoked sooner. Performing Lab: see note ML - [facility] LB ECG 12 lead Reviewed date:05/26/2024 08:18:37 AM Interpretation: Performing Lab: Notes/Report: Source Facility: [place] [address] [place] [address] Electrocardiograph Report Signed Patient: LUIS SOLOMON MR#: [id number] : 1990 Acct:[id number] Age/Sex: 33 / M ADM Date: 05/22/24 Loc: ER Attending Dr: Ordering Physician: Kristina Martinez Date of Service: 05/22/24 Procedure(s): ECG 12 lead Accession Number(s): [id number] cc: [facility] Test Date: 2024-05-22 Pat Name: LUIS SOLOMON Department: Room: - 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 Signed By: 05/25/24 0738 DD/ 184 TD/TT: Photograph Printer: XR chest 1V Reviewed date:05/26/2024 08:18:37 AM Interpretation: Performing Lab: Notes/Report: Source Facility: [place] [address] XRay Report Signed Patient: LUIS SOLOMON MR#: [id number] : 1990 Acct:[id number] Age/Sex: 33 / M ADM Date: 05/22/24 Loc: ER Attending Dr: Ordering Physician: Kristina Martinez Date of Service: 05/22/24 Procedure(s): XR chest 1V Accession Number(s): [id number] cc: NEETU BARBOZA ; Kristina Martinez [place] [address] Patient Name: LUIS SOLOMON MRN: [id number] date: 1990 Sex: M Assigned Patient Location: ER Current Patient Location: ER Accession/Order Number: [id number] Exam Date: 05/22/2024 19:12 Report Date: 05/22/2024 20:46 At the request of: KRISTINA MARTINEZ Procedure: XR chest 1V EXAMINATION: XR chest 1V HISTORY: Shortness of breath COMPARISON: XR chest 05/13/2024, 05/08/2023 FINDINGS: LUNGS: Persistent opacity within medial right lower lung likely secondary to pectus excavatum. VASCULATURE: No increased pulmonary vasculature. PLEURA: Blunting of left lateral costal phrenic angle. CARDIAC: No cardiomegaly or cardiac silhouette abnormality. MEDIASTINUM: No visible mass or adenopathy. BONES: No fracture or visible bone lesion. OTHER: Negative. XR/XR chest 1V IMPRESSION: 1. Suspect small left pleural effusion versus secondary to flattening of the diaphragm from hyperexpansion the lungs. 2. Chronic right lung findings suspected to be secondary to pectus excavatum. Electronically authenticated by: JUANCARLOS JAY Date: 05/22/2024 20:46 Dictated By: Juancarlos Jay M.D. Signed By: 05/22/242048 DD/ 45 TD/TT: Photograph Printer: ECG 12 lead Reviewed date:07/07/2024 08:16:57 AM Interpretation: Performing Lab: Notes/Report: Source Facility: [place] [address] Electrocardiograph Report Signed Patient: LUIS SOLOMON MR#: [id number] : 1990 Acct:[id number] Age/Sex: 33 / M ADM Date: 07/03/24 Loc: ER Attending Dr: Ordering Physician: Mark Nieto M.D. 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 Signed By: 07/03/242011 DD/ 3 TD/TT: Photograph Printer: XR ribs BI min 4V w CXR1V Reviewed date:07/07/2024 08:16:57 AM Interpretation: Performing Lab: Notes/Report: Source Facility: [place] [address] XRay Report Signed Patient: LUIS SOLOMON MR#: [id number] : 1990 Acct:[id number] Age/Sex: 33 / M ADM Date: 07/03/24 Loc: ER Attending Dr: Ordering Physician: Mark Nieto M.D. Date of Service: 07/03/24 Procedure(s): XR ribs BI min 4V w CXR1V Accession Number(s): [id number] cc: NEETU BARBZOA ; Mark Nieto M.D. [place] [address] Patient Name: LUIS SOLOMON MRN: [id number] date: 1990 Sex: M Assigned Patient Location: ED.MAIN Current Patient Location: ER Accession/Order Number: [id number] Exam Date: 07/03/2024 07:02 Report Date: 07/03/2024 07:45 At the request of: MARK NIETO Procedure: XR ribs BI min 4V w CXR1V EXAM: XR ribs BI min 4V w CXR1V HISTORY: fall COMPARISON: Chest radiograph dated 05/22/2024, CTA chest dated 05/13/2024 and CTA pulmonary arteries dated 09/06/2017. TECHNIQUE: Frontal view of the chest and 3 additional views of the bilateral ribs performed. FINDINGS: The trachea is midline. The heart size is normal. Stable opacities at both hilar regions and the medial aspect of the bilateral lower chest corresponding to chronic consolidation and bronchiectasis on the previous CTA examination the chest. There is mild pleural reaction at both lateral costophrenic angles. There is no pulmonary vascular congestion. There is a known 1.5 cm noncalcified left lower lobe nodule which is not significantly changed compared to the CTA pulmonary artery examination dated 09/06/2017. There is slight dextroscoliosis of the thoracic spine. 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 There is no acute displaced rib fracture. There is no pneumothorax. XR/XR ribs BI min 4V w CXR1V IMPRESSION: There is no acute displaced rib fracture. There is no pneumothorax. Stable opacities at both hilar regions and the medial aspect of the bilateral lower chest corresponding to chronic consolidation and bronchiectasis on the previous CTA examination of the chest. There is a known 1.5 cm noncalcified left lower lobe nodule which is not significantly changed compared to the CTA pulmonary artery examination dated 09/06/2017 Electronically authenticated by: JILLIAN LOVETT Date: 07/03/2024 07:45 Dictated By: Jillian Lovett M.D. Signed By: 07/03/24 0747 DD/ 0745 TD/TT: Photograph Printer: XR sternum min 2V Reviewed date:07/07/2024 08:16:57 AM Interpretation: Performing Lab: Notes/Report: Source Facility: [place] [address] [place] [address] XRay Report Signed Patient: LUIS SOLOMON MR#: [id number] : 1990 Acct:[id number] Age/Sex: 33 / M ADM Date: 07/03/24 Loc: ER Attending Dr: Ordering Physician: Mark Nieto M.D. Date of Service: 07/03/24 Procedure(s): XR sternum min 2V Accession Number(s): [id number] cc: NEETU BARBOZA ; Mark Nieto M.D. [place] [address] Patient Name: LUIS SOLOMON MRN: [id number] date: 1990 Sex: M Assigned Patient Location: ED.MAIN Current Patient Location: ER Accession/Order Number: [id number] Exam Date: 07/03/2024 07:02 Report Date: 07/03/2024 07:37 At the request of: MARK NIETO Procedure: XR sternum min 2V EXAM: XR sternum min 2V HISTORY: fall COMPARISON: None. XR/XR sternum min 2V IMPRESSION: 1. No displaced sternal fracture. Electronically authenticated by: JOSHUA AARON Date: 07/03/2024 07:37 Dictated By: Joshua Aaron M.D. Signed By: 07/03/2439 DD/ TD/TT: Photograph Printer: INFLUENZA A AND B AG Reviewed date:08/04/2024 10:09:14 AM Interpretation: Performing Lab: Notes/Report: [facility] , Influenza Virus A Antigen Negative Negative for Flu A protein antigen. Infection due to Flu A cannot be ruled out. Flu A antigen in the sample may be below the detection limit of the test. Influenza Virus B Antigen Negative Negative for Flu B protein antigen. Infection due to Flu B cannot be ruled out. Flu B antigen in the sample may be below the detection limit of the test. Performing Lab: see note ML - [facility] LB SARS-CoV-2 Ag* Reviewed date:08/04/2024 10:09:14 AM Interpretation: Performing Lab: Notes/Report: [facility] , SARS-CoV-2 Ag NEGATIVE NEGATIVE This test has not been FDA cleared or approved, but has been authorized by the FDA under an Emergency Use Authorization (EUA) for use by authorized laboratories certified under CLIA that meet the requirements to perform moderate or high complexity testing. This test has been authorized only for the detection of proteins from SARS-CoV-2, not for any other viruses or pathogens. The emergency use of this test is authorized for the duration of the declaration that circumstances exist justifying the authorization of emergency use of in vitro diagnostic tests for detection and/or diagnosis of Covid-19 under section 564(b)(1) of the Act, 21 U.S.C. 360bbb-3(b)(1), unless the declaration is terminated or authorization is revoked sooner. Performing Lab: see note ML - [facility] LB CBC AUTO DIFF Reviewed date:08/05/2024 09:15:27 AM Interpretation: Performing Lab: Notes/Report: [facility] , White Blood Count 10.7 4.0-11.0 10 3/uL Red Blood Count 5.23 4.70-6.10 10 6/uL Hemoglobin 15.2 14.0-18.0 g/dL Hematocrit 44.8 42.0-54.0 % Mean Corpuscular Volume 85.7 80.0-94.0 fL Mean Corpuscular Hemoglobin 29.1 25.9-34.0 pg Mean Corpuscular HGB Conc 33.9 29.9-35.2 g/dL Red Cell Distribution Width 12.9 11.0-15.0 % Platelet Count 159 150-450 10 3/uL Mean Platelet Volume 11.8 9.5-13.5 fL Neutrophils Percent Auto 76.4 43.0-75.0 % Lymphocytes Percent Auto 11.6 20.5-60.0 % Monocytes Percent Auto 10.8 1.7-12.0 % Eosinophils Percent Auto 0.1 0.9-7.0 % Basophils Percent Auto 0.9 0.2-2.0 % Immature Granulocytes Pct Auto 0.2 0.0-0.5 % Neutrophils Absolute Auto 8.2 1.4-6.5 10 3/uL Lymphocytes Absolute Auto 1.3 1.2-3.8 10 3/uL Monocytes Absolute Auto 1.2 0.3-0.8 10 3/uL Eosinophils Absolute Auto 0.0 0.0-0.7 10 3/uL Basophils Absolute Auto 0.1 0.0-0.1 10 3/uL Immature Granulocytes Abs Auto 0.02 0.00-0.03 10 3/uL Performing Lab: see note ML - [facility] LB LACTATE or LACTIC ACID Reviewed date:08/05/2024 09:15:27 AM Interpretation: Performing Lab: Notes/Report: [facility] , Lactate/Lactic Acid 0.9 0.4-2.0 mmol/L Performing Lab: see note ML - [facility] LB PROF CHEM 8 (BAS METB) Reviewed date:08/05/2024 09:15:27 AM Interpretation: Performing Lab: Notes/Report: [facility] , Sodium 136 136-145 mmol/L Potassium 4.4 3.5-5.1 mmol/L Chloride 101 98-107 mmol/L Carbon Dioxide 26.5 21.0-32.0 mmol/L Anion Gap 12.9 Glucose 103 74-106 mg/dL Blood Urea Nitrogen 9.0 7.0-18.0 mg/dL Creatinine 1.09 0.70-1.30 mg/dL Estimated GFR ( Cinthia >60 >=60 mL/min/1.73m 2 Estimated GFR (Non- Sabine >60 >=60 mL/min/1.73m 2 BUN Creatinine Ratio 8.3 Calcium 8.9 8.5-10.1 mg/dL Performing Lab: see note ML - [facility] LB Troponin I High Sensitivity Reviewed date:08/05/2024 09:15:27 AM Interpretation: Performing Lab: Notes/Report: [facility] , Troponin I High Sensitivity 4.3 4.0-76.1 pg/mL CUT-OFF POINTS HAVE BEEN ESTABLISHED BASED ON THE FOURTH UNIVERSAL DEFINITION OF MYOCARDIAL INFARCTION. THE UPPER REFERENCE LIMIT (URL) OF TROPONIN, DEFINED THE 99TH PERCENTILE OF cTnI DISTRIBUTION IN A REFERENCE POPULATION, HAS BEEN CONFIRMED THE DECISION THRESHOLD FOR DC DIAGNOSIS. 99TH PERCENTILE = 76.2 PG/ML NOTE: HIGH-SENSITIVITY TROPONIN ASSAY IS NOT INTENDED TO BE USED IN ISOLATION BUT SHOULD BE INTERPRETED IN CONJUNCTION WITH OTHER DIAGNOSTIC AND CLINICAL INFORMATION. Performing Lab: see note ML - [facility] CBC AUTO DIFF Reviewed date:08/05/2024 09:15:27 AM Interpretation: Performing Lab: Notes/Report: [facility] , White Blood Count 8.6 4.0-11.0 10 3/uL Red Blood Count 4.94 4.70-6.10 10 6/uL Hemoglobin 14.5 14.0-18.0 g/dL Hematocrit 42.4 42.0-54.0 % Mean Corpuscular Volume 85.8 80.0-94.0 fL Mean Corpuscular Hemoglobin 29.4 25.9-34.0 pg Mean Corpuscular HGB Conc 34.2 29.9-35.2 g/dL Red Cell Distribution Width 13.0 11.0-15.0 % Platelet Count 230 150-450 10 3/uL Mean Platelet Volume 11.4 9.5-13.5 fL Neutrophils Percent Auto 93.7 43.0-75.0 % Lymphocytes Percent Auto 4.1 20.5-60.0 % Monocytes Percent Auto 1.0 1.7-12.0 % Eosinophils Percent Auto 0.5 0.9-7.0 % Basophils Percent Auto 0.5 0.2-2.0 % Immature Granulocytes Pct Auto 0.2 0.0-0.5 % Neutrophils Absolute Auto 8.0 1.4-6.5 10 3/uL Lymphocytes Absolute Auto 0.4 1.2-3.8 10 3/uL Monocytes Absolute Auto 0.1 0.3-0.8 10 3/uL Eosinophils Absolute Auto 0.0 0.0-0.7 10 3/uL Basophils Absolute Auto 0.0 0.0-0.1 10 3/uL Immature Granulocytes Abs Auto 0.02 0.00-0.03 10 3/uL Performing Lab: see note ML - [facility] LB INFLUENZA A AND B AG Reviewed date:08/05/2024 09:15:27 AM Interpretation: Performing Lab: Notes/Report: [facility] , Influenza Virus A Antigen Negative Negative for Flu A protein antigen. Infection due to Flu A cannot be ruled out. Flu A antigen in the sample may be below the detection limit of the test. Influenza Virus B Antigen Negative Negative for Flu B protein antigen. Infection due to Flu B cannot be ruled out. Flu B antigen in the sample may be below the detection limit of the test. Performing Lab: see note ML - [facility] LB MAGNESIUM Reviewed date:08/05/2024 09:15:27 AM Interpretation: Performing Lab: Notes/Report: [facility] , Magnesium 1.9 1.8-2.4 mg/dL Performing Lab: see note ML - [facility] LB PROF 14(COMP METB) Reviewed date:08/05/2024 09:15:27 AM Interpretation: Performing Lab: Notes/Report: [facility] , Sodium 137 136-145 mmol/L Potassium 4.3 3.5-5.1 mmol/L Chloride 101 98-107 mmol/L Carbon Dioxide 25.1 21.0-32.0 mmol/L Anion Gap 15.2 Glucose 266 74-106 mg/dL Blood Urea Nitrogen 8.0 7.0-18.0 mg/dL Creatinine 1.21 0.70-1.30 mg/dL Estimated GFR ( Cinthia >60 >=60 mL/min/1.73m 2 Estimated GFR (Non- Sabine >60 >=60 mL/min/1.73m 2 BUN Creatinine Ratio 6.6 Calcium 8.8 8.5-10.1 mg/dL Bilirubin Total 0.4 0.2-1.0 mg/dL Aspartate Amino Transferase 13 15-37 U/L Alanine Aminotransferase 8 16-63 U/L Alkaline Phosphatase 117 46-116 U/L Total Protein 6.8 6.4-8.2 g/dL Albumin Level 3.4 3.4-5.0 g/dL Globulin 3.4 Albumin Globulin Ratio 1.0 Performing Lab: see note ML - [facility] LB Blood Culture 1 Reviewed date:08/10/2024 03:10:25 PM Interpretation: Performing Lab: Notes/Report: [facility] , Blood Culture 1 See Below For Report Blood Culture 1 NG5D NO GROWTH AT 5 DAYS.^NO GROWTH AT 5 DAYS. Performing Lab: see note ML - [facility] LB Blood Culture 2 Reviewed date:08/10/2024 03:10:25 PM Interpretation: Performing Lab: Notes/Report: [facility] , Blood Culture 2 See Below For Report Blood Culture 2 NG5D NO GROWTH AT 5 DAYS.^NO GROWTH AT 5 DAYS. Performing Lab: see note - [facility] SARS-CoV-2 Ag* Reviewed date:08/05/2024 09:15:27 AM Interpretation: Performing Lab: Notes/Report: [facility] , SARS-CoV-2 Ag NEGATIVE NEGATIVE This test has not been FDA cleared or approved, but has been authorized by the FDA under an Emergency Use Authorization (EUA) for use by authorized laboratories certified under CLIA that meet the requirements to perform moderate or high complexity testing. This test has been authorized only for the detection of proteins from SARS-CoV-2, not for any other viruses or pathogens. The emergency use of this test is authorized for the duration of the declaration that circumstances exist justifying the authorization of emergency use of in vitro diagnostic tests for detection and/or diagnosis of Covid-19 under section 564(b)(1) of the Act, 21 U.S.C. 360bbb-3(b)(1), unless the declaration is terminated or authorization is revoked sooner. Performing Lab: see note - [facility] LB White Blood Cells Reviewed date:08/10/2024 03:10:26 PM Interpretation: Performing Lab: Notes/Report: [facility] , White Blood Cells See Below For Report White Blood Cells White Blood Cells Few White Blood Cells Performing Lab: see note LC - [facility] LB Epithelial Cells Reviewed date:08/10/2024 03:10:26 PM Interpretation: Performing Lab: Notes/Report: [facility] , Epithelial Cells See Below For Report Epithelial Cells None seen Performing Lab: see note LC - [facility] LB Result 1 Reviewed date:08/10/2024 03:10:26 PM Interpretation: Performing Lab: Notes/Report: [facility] , Result 1 See Below For Report Result 1 Rare gram positive cocci Performing Lab: see note LC - [facility] LB Result 2 Reviewed date:08/10/2024 03:10:26 PM Interpretation: Performing Lab: Notes/Report: [facility] , Result 2 See Below For Report Result 2 CDC ASSOCIATE Performing Lab: see note LC - [facility] LB Result 3 Reviewed date:08/10/2024 03:10:26 PM Interpretation: Performing Lab: Notes/Report: [facility] , Result 3 See Below For Report Result 3 CDC ASSOCIATE Performing Lab: see note LC - [facility] LB Result 4 Reviewed date:08/10/2024 03:10:26 PM Interpretation: Performing Lab: Notes/Report: [facility] , Result 4 See Below For Report Result 4 CDC ASSOCIATE Performing Lab: see note LC - [facility] LB Gram Stain Evaluation Reviewed date:08/10/2024 03:10:26 PM Interpretation: Performing Lab: Notes/Report: [facility] , Gram Stain Evaluation See Below For Report Gram Stain Evaluation This specimen is of good quality and is acceptable for routine Gram Stain Evaluation bacterial culture. Gram Stain Evaluation This specimen is of good quality and is acceptable for routine Performing Lab: see note LC - [facility] LB Lower Respiratory Culture Reviewed date:08/10/2024 03:10:26 PM Interpretation: Performing Lab: Notes/Report: [facility] , Lower Respiratory Culture See Below For Report Lower Respiratory Culture WILL FOLLOW Lower Respiratory Culture Specimen has b een received and testing has been initiated. Lower Respiratory Culture WILL FOLLOW Lower Respiratory Culture Routine respir atory naye Lower Respiratory Culture WILL FOLLOW Lower Respiratory Culture Performed at: CB - [facility] [place] Lower Respiratory Culture WILL FOLLOW Lower Respiratory Culture [address], [place], [place] [id number] Lower Respiratory Culture WILL FOLLOW Lower Respiratory Culture Personal Property Appraiser: Yonny Pa PhD, Phone: [phone] Lower Respiratory Culture WILL FOLLOW Performing Lab: see note LC - [facility] LB SEE REPORT - Consumer Affairs Specialist Id information not found for OBX-specific media producer legend CBC AUTO DIFF Reviewed date:08/06/2024 10:07:04 AM Interpretation: Performing Lab: Notes/Report: [facility] , White Blood Count 10.9 4.0-11.0 10 3/uL Red Blood Count 4.69 4.70-6.10 10 6/uL Hemoglobin 13.6 14.0-18.0 g/dL Hematocrit 40.5 42.0-54.0 % Mean Corpuscular Volume 86.4 80.0-94.0 fL Mean Corpuscular Hemoglobin 29.0 25.9-34.0 pg Mean Corpuscular HGB Conc 33.6 29.9-35.2 g/dL Red Cell Distribution Width 13.0 11.0-15.0 % Platelet Count 236 150-450 10 3/uL Mean Platelet Volume 11.8 9.5-13.5 fL Neutrophils Percent Auto 91.9 43.0-75.0 % Lymphocytes Percent Auto 4.6 20.5-60.0 % Monocytes Percent Auto 2.9 1.7-12.0 % Eosinophils Percent Auto 0.1 0.9-7.0 % Basophils Percent Auto 0.1 0.2-2.0 % Immature Granulocytes Pct Auto 0.4 0.0-0.5 % Neutrophils Absolute Auto 10.0 1.4-6.5 10 3/uL Lymphocytes Absolute Auto 0.5 1.2-3.8 10 3/uL Monocytes Absolute Auto 0.3 0.3-0.8 10 3/uL Eosinophils Absolute Auto 0.0 0.0-0.7 10 3/uL Basophils Absolute Auto 0.0 0.0-0.1 10 3/uL Immature Granulocytes Abs Auto 0.04 0.00-0.03 10 3/uL Performing Lab: see note ML - [facility] LB PROF CHEM 8 (BAS METB) Reviewed date:08/06/2024 12:45:29 PM Interpretation: Performing Lab: Notes/Report: [facility] , Sodium 140 136-145 mmol/L Potassium 4.1 3.5-5.1 mmol/L Chloride 104 98-107 mmol/L Carbon Dioxide 25.9 21.0-32.0 mmol/L Anion Gap 14.2 Glucose 231 74-106 mg/dL Blood Urea Nitrogen 12.0 7.0-18.0 mg/dL Creatinine 0.98 0.70-1.30 mg/dL Estimated GFR ( Cinthia >60 >=60 mL/min/1.73m 2 Estimated GFR (Non- Sabine >60 >=60 mL/min/1.73m 2 BUN Creatinine Ratio 12.2 Calcium 8.7 8.5-10.1 mg/dL Performing Lab: see note ML - [facility] LB CBC AUTO DIFF Reviewed date:08/07/2024 08:50:25 AM Interpretation: Performing Lab: Notes/Report: [facility] , White Blood Count 17.6 4.0-11.0 10 3/uL Red Blood Count 4.70 4.70-6.10 10 6/uL Hemoglobin 13.5 14.0-18.0 g/dL Hematocrit 41.0 42.0-54.0 % Mean Corpuscular Volume 87.2 80.0-94.0 fL Mean Corpuscular Hemoglobin 28.7 25.9-34.0 pg Mean Corpuscular HGB Conc 32.9 29.9-35.2 g/dL Red Cell Distribution Width 13.2 11.0-15.0 % Platelet Count 269 150-450 10 3/uL Mean Platelet Volume 11.8 9.5-13.5 fL Neutrophils Percent Auto 93.4 43.0-75.0 % Lymphocytes Percent Auto 2.8 20.5-60.0 % Monocytes Percent Auto 2.9 1.7-12.0 % Eosinophils Percent Auto 0.4 0.9-7.0 % Basophils Percent Auto 0.1 0.2-2.0 % Immature Granulocytes Pct Auto 0.4 0.0-0.5 % Neutrophils Absolute Auto 16.5 1.4-6.5 10 3/uL Lymphocytes Absolute Auto 0.5 1.2-3.8 10 3/uL Monocytes Absolute Auto 0.5 0.3-0.8 10 3/uL Eosinophils Absolute Auto 0.1 0.0-0.7 10 3/uL Basophils Absolute Auto 0.0 0.0-0.1 10 3/uL Immature Granulocytes Abs Auto 0.07 0.00-0.03 10 3/uL Performing Lab: see note - [facility] LB PROF CHEM 8 (FRAMED METB) Reviewed date:08/07/2024 06:53:14 PM Interpretation: Performing Lab: Notes/Report: [facility] , Sodium 141 136-145 mmol/L Potassium 3.9 3.5-5.1 mmol/L Chloride 103 98-107 mmol/L Carbon Dioxide 30.2 21.0-32.0 mmol/L Anion Gap 11.7 Glucose 214 74-106 mg/dL Blood Urea Nitrogen 15.0 7.0-18.0 mg/dL Creatinine 0.90 0.70-1.30 mg/dL Estimated GFR ( Cinthia >60 >=60 mL/min/1.73m 2 Estimated GFR (Non- Sabine >60 >=60 mL/min/1.73m 2 BUN Creatinine Ratio 16.7 Calcium 8.4 8.5-10.1 mg/dL Performing Lab: see note - [facility] LB PROF CHEM 8 (Exhibition AB) Reviewed date:08/10/2024 03:10:26 PM Interpretation: Performing Lab: Notes/Report: [facility] , Sodium 141 136-145 mmol/L Potassium 4.2 3.5-5.1 mmol/L Chloride 105 98-107 mmol/L Carbon Dioxide 31.5 21.0-32.0 mmol/L Anion Gap 8.7 Glucose 144 74-106 mg/dL Blood Urea Nitrogen 17.0 7.0-18.0 mg/dL Creatinine 0.90 0.70-1.30 mg/dL Estimated GFR ( Cinthia >60 >=60 mL/min/1.73m 2 Estimated GFR (Non- Sabine >60 >=60 mL/min/1.73m 2 BUN Creatinine Ratio 18.9 Calcium 8.5 8.5-10.1 mg/dL Performing Lab: see note - [facility] LB LACTATE or LACTIC ACID Reviewed date:08/10/2024 03:10:26 PM Interpretation: Performing Lab: Notes/Report: [facility] , Lactate/Lactic Acid 1.9 0.4-2.0 mmol/L Performing Lab: see note ML - [facility] LB CBC AUTO DIFF Reviewed date:08/10/2024 03:10:25 PM Interpretation: Performing Lab: Notes/Report: [facility] , White Blood Count 13.3 4.0-11.0 10 3/uL Red Blood Count 4.51 4.70-6.10 10 6/uL Hemoglobin 13.1 14.0-18.0 g/dL Hematocrit 39.3 42.0-54.0 % Mean Corpuscular Volume 87.1 80.0-94.0 fL Mean Corpuscular Hemoglobin 29.0 25.9-34.0 pg Mean Corpuscular HGB Conc 33.3 29.9-35.2 g/dL Red Cell Distribution Width 13.0 11.0-15.0 % Platelet Count 257 150-450 10 3/uL Mean Platelet Volume 11.5 9.5-13.5 fL Neutrophils Percent Auto 89.5 43.0-75.0 % Lymphocytes Percent Auto 4.8 20.5-60.0 % Monocytes Percent Auto 3.2 1.7-12.0 % Eosinophils Percent Auto 1.1 0.9-7.0 % Basophils Percent Auto 0.2 0.2-2.0 % Immature Granulocytes Pct Auto 1.2 0.0-0.5 % Neutrophils Absolute Auto 11.9 1.4-6.5 10 3/uL Lymphocytes Absolute Auto 0.6 1.2-3.8 10 3/uL Monocytes Absolute Auto 0.4 0.3-0.8 10 3/uL Eosinophils Absolute Auto 0.1 0.0-0.7 10 3/uL Basophils Absolute Auto 0.0 0.0-0.1 10 3/uL Immature Granulocytes Abs Auto 0.16 0.00-0.03 10 3/uL Performing Lab: see note ML - [facility] LB MAGNESIUM Reviewed date:08/10/2024 03:10:25 PM Interpretation: Performing Lab: Notes/Report: [facility] , Magnesium 2.3 1.8-2.4 mg/dL Performing Lab: see note - [facility] LB PROF 14(COMP METB) Reviewed date:08/10/2024 03:10:25 PM Interpretation: Performing Lab: Notes/Report: [facility] , Sodium 140 136-145 mmol/L Potassium 4.2 3.5-5.1 mmol/L Chloride 104 98-107 mmol/L Carbon Dioxide 31.0 21.0-32.0 mmol/L Anion Gap 9.2 Glucose 173 74-106 mg/dL Blood Urea Nitrogen 19.0 7.0-18.0 mg/dL Creatinine 0.81 0.70-1.30 mg/dL Estimated GFR ( Cinthia >60 >=60 mL/min/1.73m 2 Estimated GFR (Non- Sabine >60 >=60 mL/min/1.73m 2 BUN Creatinine Ratio 23.5 Calcium 8.0 8.5-10.1 mg/dL Bilirubin Total 0.4 0.2-1.0 mg/dL Aspartate Amino Transferase 7 15-37 U/L Alanine Aminotransferase 14 16-63 U/L Alkaline Phosphatase 74 46-116 U/L Total Protein 5.4 6.4-8.2 g/dL Albumin Level 2.5 3.4-5.0 g/dL Globulin 2.9 Albumin Globulin Ratio 0.9 Performing Lab: see note ML - [facility] LB CBC AUTO DIFF Reviewed date:08/11/2024 12:58:08 PM Interpretation: Performing Lab: Notes/Report: [facility] , White Blood Count 15.5 4.0-11.0 10 3/uL Red Blood Count 4.51 4.70-6.10 10 6/uL Hemoglobin 12.9 14.0-18.0 g/dL Hematocrit 38.9 42.0-54.0 % Mean Corpuscular Volume 86.3 80.0-94.0 fL Mean Corpuscular Hemoglobin 28.6 25.9-34.0 pg Mean Corpuscular HGB Conc 33.2 29.9-35.2 g/dL Red Cell Distribution Width 13.0 11.0-15.0 % Platelet Count 315 150-450 10 3/uL Mean Platelet Volume 11.5 9.5-13.5 fL Neutrophils Percent Auto 89.9 43.0-75.0 % Lymphocytes Percent Auto 3.9 20.5-60.0 % Monocytes Percent Auto 3.6 1.7-12.0 % Eosinophils Percent Auto 0.3 0.9-7.0 % Basophils Percent Auto 0.2 0.2-2.0 % Immature Granulocytes Pct Auto 2.1 0.0-0.5 % Neutrophils Absolute Auto 13.9 1.4-6.5 10 3/uL Lymphocytes Absolute Auto 0.6 1.2-3.8 10 3/uL Monocytes Absolute Auto 0.6 0.3-0.8 10 3/uL Eosinophils Absolute Auto 0.0 0.0-0.7 10 3/uL Basophils Absolute Auto 0.0 0.0-0.1 10 3/uL Immature Granulocytes Abs Auto 0.32 0.00-0.03 10 3/uL Performing Lab: see note ML - [facility] LB MAGNESIUM Reviewed date:08/11/2024 12:58:08 PM Interpretation: Performing Lab: Notes/Report: [facility] , Magnesium 2.2 1.8-2.4 mg/dL Performing Lab: see note ML - [facility] LB PROF 14(COMP METB) Reviewed date:08/11/2024 12:58:08 PM Interpretation: Performing Lab: Notes/Report: [facility] , Sodium 141 136-145 mmol/L Potassium 4.2 3.5-5.1 mmol/L Chloride 106 98-107 mmol/L Carbon Dioxide 30.2 21.0-32.0 mmol/L Anion Gap 9.0 Glucose 161 74-106 mg/dL Blood Urea Nitrogen 22.0 7.0-18.0 mg/dL Creatinine 0.75 0.70-1.30 mg/dL Estimated GFR ( Cinthia >60 >=60 mL/min/1.73m 2 Estimated GFR (Non- Sabine >60 >=60 mL/min/1.73m 2 BUN Creatinine Ratio 29.3 Calcium 8.1 8.5-10.1 mg/dL Bilirubin Total 0.3 0.2-1.0 mg/dL Aspartate Amino Transferase 9 15-37 U/L Alanine Aminotransferase 15 16-63 U/L Alkaline Phosphatase 78 46-116 U/L Total Protein 5.2 6.4-8.2 g/dL Albumin Level 2.5 3.4-5.0 g/dL Globulin 2.7 Albumin Globulin Ratio 0.9 Performing Lab: see note ML - [facility] LB INFLUENZA A AND B AG Reviewed date:08/11/2024 08:09:05 PM Interpretation: Performing Lab: Notes/Report: [facility] , Influenza Virus A Antigen Negative Negative for Flu A protein antigen. Infection due to Flu A cannot be ruled out. Flu A antigen in the sample may be below the detection limit of the test. Influenza Virus B Antigen Negative Negative for Flu B protein antigen. Infection due to Flu B cannot be ruled out. Flu B antigen in the sample may be below the detection limit of the test. Performing Lab: see note ML - [facility] LB SARS-CoV-2 Ag* Reviewed date:08/11/2024 08:09:05 PM Interpretation: Performing Lab: Notes/Report: [facility] , SARS-CoV-2 Ag NEGATIVE NEGATIVE This test has not been FDA cleared or approved, but has been authorized by the FDA under an Emergency Use Authorization (EUA) for use by authorized laboratories certified under CLIA that meet the requirements to perform moderate or high complexity testing. This test has been authorized only for the detection of proteins from SARS-CoV-2, not for any other viruses or pathogens. The emergency use of this test is authorized for the duration of the declaration that circumstances exist justifying the authorization of emergency use of in vitro diagnostic tests for detection and/or diagnosis of Covid-19 under section 564(b)(1) of the Act, 21 U.S.C. 360bbb-3(b)(1), unless the declaration is terminated or authorization is revoked sooner. Performing Lab: see note ML - [facility] LB VANCOMYCIN TROUGH Reviewed date:08/12/2024 01:31:23 PM Interpretation: Performing Lab: Notes/Report: [facility] , Vancomycin Trough 19.4 5.0-20.0 ug/mL Performing Lab: see note ML - [facility] LB White Blood Cells Reviewed date:08/18/2024 01:51:36 PM Interpretation: Performing Lab: Notes/Report: [facility] , White Blood Cells See Below For Report White Blood Cells White Blood Cells None seen White Blood Cells Performing Lab: see note LC - [facility] LB Epithelial Cells Reviewed date:08/18/2024 01:51:36 PM Interpretation: Performing Lab: Notes/Report: [facility] , Epithelial Cells See Below For Report Epithelial Cells Few Performing Lab: see note LC - [facility] LB Result 1 Reviewed date:08/18/2024 01:51:36 PM Interpretation: Performing Lab: Notes/Report: [facility] , Result 1 See Below For Report Result 1 Small amount of yeast seen. Performing Lab: see note LC - [facility] LB Result 2 Reviewed date:08/18/2024 01:51:36 PM Interpretation: Performing Lab: Notes/Report: [facility] , Result 2 See Below For Report Result 2 Few gram positive cocci Performing Lab: see note LC - [facility] LB Result 3 Reviewed date:08/18/2024 01:51:36 PM Interpretation: Performing Lab: Notes/Report: [facility] , Result 3 See Below For Report Result 3 *ABNORMAL* Result 3 Rare gram negative rods. Result 3 *ABNORMAL* Performing Lab: see note LC - [facility] LB Result 4 Reviewed date:08/18/2024 01:51:36 PM Interpretation: Performing Lab: Notes/Report: [facility] , Result 4 See Below For Report Result 4 CDC ASSOCIATE Performing Lab: see note LC - [facility] LB Gram Stain Evaluation Reviewed date:08/18/2024 01:51:36 PM Interpretation: Performing Lab: Notes/Report: [facility] , Gram Stain Evaluation See Below For Report Gram Stain Evaluation This specimen is of good quality and is acceptable for routine Gram Stain Evaluation bacterial culture. Gram Stain Evaluation This specimen is of good quality and is acceptable for routine Performing Lab: see note LC - [facility] LB Lower Respiratory Culture Reviewed date:08/18/2024 01:51:36 PM Interpretation: Performing Lab: Notes/Report: [facility] , Lower Respiratory Culture See Below For Report Lower Respiratory Culture WILL FOLLOW O:CANALB Isolated Lower Respiratory Culture Organism: Cand kailey albicans : Lower Respiratory Culture WILL FOLLOW O:CANALB Isolated Lower Respiratory Culture *ABNORMAL* Lower Respiratory Culture WILL FOLLOW O:CANALB Isolated Lower Respiratory Culture Light growth Lower Respiratory Culture WILL FOLLOW O:CANALB Isolated Lower Respiratory Culture Madhavi albicans Lower Respiratory Culture WILL FOLLOW O:CANALB Isolated Lower Respiratory Culture See Below For Report Lower Respiratory Culture WILL FOLLOW O:CANALB Isolated Lower Respiratory Culture Performed at: [facility] Lower Respiratory Culture WILL FOLLOW O:CANALB Isolated Lower Respiratory Culture [address] [facility], [place], [place] [id number] Lower Respiratory Culture WILL FOLLOW O:CANALB Isolated Lower Respiratory Culture Personal Property Appraiser: Yonny Pa PhD, Phone: [phone] Lower Respiratory Culture WILL FOLLOW O:CANALB Isolated Performing Lab: see note LC - [facility] LB SEE REPORT - Consumer Affairs Specialist Id information not found for OBX-specific media producer legend CBC AUTO DIFF Reviewed date:08/18/2024 01:51:36 PM Interpretation: Performing Lab: Notes/Report: [facility] , White Blood Count 16.0 4.0-11.0 10 3/uL Red Blood Count 4.73 4.70-6.10 10 6/uL Hemoglobin 13.6 14.0-18.0 g/dL Hematocrit 40.3 42.0-54.0 % Mean Corpuscular Volume 85.2 80.0-94.0 fL Mean Corpuscular Hemoglobin 28.8 25.9-34.0 pg Mean Corpuscular HGB Conc 33.7 29.9-35.2 g/dL Red Cell Distribution Width 12.8 11.0-15.0 % Platelet Count 350 150-450 10 3/uL Mean Platelet Volume 11.2 9.5-13.5 fL Neutrophils Percent Auto 88.3 43.0-75.0 % Lymphocytes Percent Auto 3.3 20.5-60.0 % Monocytes Percent Auto 5.5 1.7-12.0 % Eosinophils Percent Auto 0.1 0.9-7.0 % Basophils Percent Auto 0.1 0.2-2.0 % Immature Granulocytes Pct Auto 2.7 0.0-0.5 % Neutrophils Absolute Auto 14.1 1.4-6.5 10 3/uL Lymphocytes Absolute Auto 0.5 1.2-3.8 10 3/uL Monocytes Absolute Auto 0.9 0.3-0.8 10 3/uL Eosinophils Absolute Auto 0.0 0.0-0.7 10 3/uL Basophils Absolute Auto 0.0 0.0-0.1 10 3/uL Immature Granulocytes Abs Auto 0.43 0.00-0.03 10 3/uL Performing Lab: see note ML - [facility] LB Reason For Referral No Information Medications Medication SIG (Take, Route, Frequency, Duration) Notes Start Date End Date Status Asmanex HFA 100 MCG/ACT 2 puffs in the evening Inhalation Once a day Not-Taking Sucralfate 1 GM TAKE 1 TABLET BY MOUTH BEFORE MEALS AND AT BEDTIME Oral; Duration: 30 Days Not-Taking Pantoprazole Sodium 40 MG Oral; Duration: 30 Days Active Oxygen - as directed dx asthma Daily; Duration: 30 days D/C O2 please crab picker machine. 05/31/2016 Active Lexapro 10 MG 1 tablet Orally Once a day; Duration: 30 days 03/03/2024 Not-Taking Ipratropium-Albuterol 0.5-2.5 (3) MG/3ML 3 ml Inhalation Four times a day Not-Taking Pantoprazole Sodium 40 MG 1 tablet Orally bid Not-Taki ng NexIUM Not-Taking Albuterol Sulfate (2.5 MG/3ML) 0.083% 3 mL as needed Inhalation every 6 hrs; Duration: 30 days Active hydrOXYzine Pamoate 25 MG TAKE 1 CAPSULE BY MOUTH TWICE A DAY NEEDED; Duration: 90 Not-Taking Albuterol Sulfate HFA 108 (90 Base) MCG/ACT 1-2 puff as needed Inhalation every 4 hrs; Duration: 30 days Active traZODone HCl 50 MG TAKE 1 TABLET BY MOUTH ONCE A DAY AT BEDTIME NEEDED; Duration: 30 days Active Social History Tobacco Use: Social History Observation Description Date Details (start date - stop date) Former Smoker NA - NA Tobacco Use/Smoking Question Answer Notes Patient is a former smoker How long has it been since you last smoked? 1-3 months AUDIT-C (Standard) Question Answer Notes Did you have a drink containing alcohol in the p ast year? No Points 0 Interpretation Negative Problems Problem Type SNOMED Code ICD Code Onset Dates Problem Status W/U Status Risk Notes Problem Malnutrition of mild degree (Hassan: 75% to less than 90% of standard weight) (32591277) Mild protein-calorie malnutrition (E44.1) Active confirmed Problem Cannabis abuse (29187554) Cannabis abuse, uncomplicated (F12.10) Active confirmed Problem Primary insomnia (8381750) Primary insomnia (F51.01) Active confirmed Problem Acute exacerbation of bronchiectasis (605890733) Bronchiectasis with acute lower respiratory infection (J47.0) Active confirmed Problem Acute exacerbation of bronchiectasis (948976092) Bronchiectasis with (acute) exacerbation (J47.1) Active confirmed Problem Chronic respiratory failure (88024420) Chronic respiratory failure with hypoxia (J96.11) Active confirmed Problem Uyxgx-mn-jpcsbks hypoxemic respiratory failure (86880246446537791) Acute and chronic respiratory failure with hypoxia (J96.21) Active confirmed Problem Pain of right shoulder region (finding) (8458719588) Pain in right shoulder (M25.511) Active confirmed Problem 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 confirmed Problem Shortness of breath (041933560) Shortness of breath (R06.02) Active confirmed Problem Asthma (444114147) Asthma (J45.909) Active conf irmed Problem COPD - Chronic obstructive pulmonary disease (67299316) COPD (chronic obstructive pulmonary disease) (J44.9) Active confirmed Problem Gastroesophageal reflux disease (558801368) GERD (gastroesophageal reflux disease) (K21.9) Active confirmed Problem Anxiety (99937217) Anxiety (F41.9) Active confi rmed Problem Pneumonia (335565662) Pneumonia (J18.9) Active confirmed Problem Depression (808402794) Depression (F32.9) Active confirmed Problem Dyspnea (421087416) Dyspnea (R06.00) Active con firmed Problem Insomnia (257934615) Insomnia (G47.00) Active confirmed Problem Cannabis abuse (75631538) Marijuana abuse (F12.10) Active confirmed Problem Irritable bowel syndrome (43038672) IBS (irritable bowel syndrome) (K58.9) Active confirmed Problem Generalized anxiety disorder (85233558) [place] (generalized anxiety disorder) (F41.1) Active confirmed Problem Bronchitis (63985591) Bronchitis (J40) Active confirmed Problem Exacerbation of asthma (091598852) Asthma exacerbation (J45.901) Active confirmed Problem Gastroesophageal reflux disease with esophagitis (743354297) Gastroesophageal reflux disease with esophagitis (K21.0) Active confirmed Problem Acute exacerbation of chronic obstructive airways disease (934358918) COPD exacerbation (J44.1) Active confirmed Problem Home oxygen therapy (045424642) On home oxygen therapy (Z99.81) Active confirmed Problem Bronchiectasis (94327611) Bronchiectasis (J47.9) Active confirmed Problem Mixed anxiety and depressive disorder (884146946) Depression with anxiety (F41.8) Active confirmed Problem Uncomplicated severe persistent asthma (764632881) Uncomplicated severe persistent asthma (J45.50) Active confirmed Problem Chronic hypoxemic respiratory failure (345090741) Chronic hypoxemic respiratory failure (J96.11) Active confirmed Problem Aspiration pneumonitis (703378048) Aspiration pneumonitis (J69.0) Active confirmed Problem Exacerbation of asthma (298070298) Acute asthma exacerbation (J45.901) Active confirmed Problem Acute exacerbation of bronchiectasis (822621421) Bronchiectasis with acute exacerbation (J47.1) Active confirmed Problem Panic attack (647311839) Panic attack (F41.0) Active confirmed Problem Gastro-esophageal reflux disease (371855265) Gastro-esophageal reflux disease (K21.9) Active confirmed Problem Acute exacerbation of bronchiectasis (466857698) Acute exacerbation of bronchiectasis (J47.1) Active confirmed Problem Leukocytosis (639840108) Elevated WBCs (D72.829) Active confirmed Problem 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) Active confirmed Problem Mixed anxiety and depressive disorder (113139097) Anxiety and depression (F41.8) Active confirmed Problem Nondependent alcohol abuse in remission (691476836) Alcohol abuse, in remission (F10.11) Active confirmed Problem Malnutrition of mild degree (Hassan: 75% to less than 90% of standard weight) (30545150) Mild protein malnutrition (E44.1) Active confirmed Problem Opioid dependence in remission (444297469) Narcotic dependence, in remission (F11.21) Active confirmed Problem Patient's noncompliance with dietary regimen for other reason (Z91.118) Active confirmed Problem Noncompliance with treatment (finding) (5652347) Noncompliance with treatment plan (Z91.199) Active confirmed Vital Signs Heart Rate 79 /min 03/03/2024 Temperature 97.7 degrees Fahrenheit 07/08/2024 Oximetry 90 % 03/05/2024 Blood pressure diastolic 70 mm Hg 01/23/2025 Height 62.75 in 01/23/2025 Blood pressure systolic 104 mm Hg 01/23/2025 Weight 120.2 lbs 01/23/2025 BMI 21.46 kg/m2 01/23/2025 Encounters Encounter Location Date Provider Diagnosis [address] [address] 03/05/2024 Neetu Barboza Bronchiectasis with acute exacerbation J47.1 [facility] [address] [place] [address] 07/08/2024 Neetu Barboza Contusion of ribs S20.219A and H/O fall Z91.81 [facility] [address] [place] [address] 08/18/2024 Neetu Barboza Chronic respiratory failure with hypoxia J96.11 [facility] [address] [place] [address] 01/23/2025 eNetu Barboza Chronic hypoxemic respiratory failure J96.11 and Insomnia G47.00 [facility] [address] [place] [address] 03/03/2024 Neetu Barboza Anxiety F41.9 and Pneumonia J18.9 [facility] [address] [place] [address] 12/31/2024 Neetu Barboza Anxiety F41.9 [facility] [address] [place] [address] 02/16/2025 Neetu Barboza Wellness examination Z00.00 [facility] [address] [place] [address] 03/13/2024 Neetu Barboza [facility] [address] [place] [address] 03/23/2024 Neetu Barboza [facility] [address] [place] [address] 05/12/2024 Neetu Barboza [facility] [address] [place] [address] 08/13/2024 Neetu Barboza [facility] [address] [place] [address] 08/15/2024 James Elkins Assessments Encounter Date Diagnosis (ICD Code) Assessment Notes Treatment Notes Treatment Clinical Notes Section Notes 03/03/2024 Anxiety (ICD-10 - F41.9) consider counseling fu one month 03/05/2024 Bronchiectasis with acute exacerbation (ICD-10 - J47.1) SOB pulse ox 90% working to breath, to ER for eval with his hx 07/08/2024 H/O fall (ICD-10 - Z91.81) 07/08/2024 Contusion of ribs (ICD-10 - S20.219A) ok for OWN two ER visits reviewed pain with movement needs rest, nsaids 08/18/2024 Chronic respiratory failure with hypoxia (ICD-10 - J96.11) feeling better from last hospital visit continue inhalers, fu pulm has CT lungs this week stop smoking encouraged 01/23/2025 Insomnia (ICD-10 - G47.00) 01/23/2025 Chronic hypoxemic respiratory failure (ICD-10 - J96.11) fu pulm is considering filing disability 12/31/2024 Anxiety (ICD-10 - F41.9) 02/16/2025 Wellness examination (ICD-10 - Z00.00) 03/03/2024 Pneumonia (ICD-10 - J18.9) improved fu pulmonology 03/03/2024 Other has fu GI Plan Of Treatment Pending Test Test Name Order Date CMP (COMPLETE METABOLIC PANEL) 4 CBC WITH DIFF 09/18/2023 IGE 04/12/2016 IGG 04/12/2016 IGG SUBCLASSES 04/12/2016 CBC 02/16/2025 PFT w/Bronchodillator and Body Box-perfo rmed 04/12/2016 CMP - Comprehensive Metabolic Panel 01/27 GLYCOHEMOGLOBIN A1C 02/16/2025 LIPID PROFILE 02/16/2025 THYROID PANEL (T4/TSH/FREE T3) Next Appt Details Provider Name:Neetu nickerson, 02/27/2025 01:30:00 PM, [address] [facility], [place], [address], Insurance Providers Payer Name Payer Address Payer Phone Subscriber Number Group Number Insured Name Patient Relationship to Insured Coverage Start Date Coverage End Date [employer]ARE [address] [address] [place] [address] [id number] Luis Solomon Self - patient is the insured 4 4 [employer] MED[employer] ADV PLAN [address] [place] [address] [id number] [id number] Luis Solomon Self - patient is the insured 5 MEDICAID [place] 2ND INS [address] OFFICE OF [facility] [place] [id number] Luis Solomon Self - patient is the insured 2 Medical (General) History Medical History History ICD Code Bronchiectasis J47.9 Uncomplicated severe persistent asthma J 45.50 Gastroesophageal reflux disease with eso phagitis K21.0 Bronchitis J40 Carrier of resistant Pseudomonas aerugin syed Z22.8 Noncompliance with treatment plan Z91.19 9 Aspiration pneumonitis J69.0 Narcotic dependence, in remission F11.21 Pain in right shoulder M25.511 Patient's noncompliance with dietary reg imen for other reason Z91.118 Alcohol abuse, in remission F10.11 Atresia of esophagus with tracheo-esopha geal fistula Q39.1 Pneumonia J18.9 Gastro-esophageal reflux disease K21.9 Surgical History Surgery Date(Month/Year) EGD- esophagus stretching 11/2024 EGD 11/18 Facial Reconstruction Rt side. Metal larry te rt side of face TEF at Hospitalization History Reason Date(Month/Year) ABD Pain - Annette another stay for Pneumo martha 11/2024 Pneumonia 2024 Pneumonia 2023 multiple times for resp issues
--- NOTE | 2025-02-24 10:09 | CT_ITS ---
The [address] [address] Patient Name: FRANCIS GALVEZ MRN: [id number] date: 1990 Sex: M Assigned Patient Location: ER Current Patient Location: ER Accession/Order Number: [id number] Exam Date: 02/24/2025 10:35 Report Date: 02/24/2025 11:43 At the request of: DESTINEY LARSEN DO Procedure: CT abdomen pelvis w con CT ABDOMEN AND PELVIS WITH CONTRAST COMPARISON: 02/07/2025 and 02/02/2024 CLINICAL DATA: Right-sided abdominal pain, productive cough, chills and shortness of breath. Spiral images were obtained through the abdomen and pelvis following 100 mL of Omnipaque 300. This CT exam was performed using one or more following dose reduction techniques: Automated exposure control, adjustment of the mA and/or kV according to patient size, or use of iterative reconstruction technique. Limited cuts through the lung bases again show bronchiectasis. There is some associated airspace opacity in the field of view at the paramediastinal left lung base which has worsened. There is a similar irregular nodular opacity at the left lower lobe. A tiny hiatal hernia is visualized. There is continued swirling at the GE junction and some adjacent clips suggesting prior hiatal hernia repair. No calcified gallstones are identified. No intrahepatic masses are seen. The spleen, pancreas and adrenal glands show no acute findings. There are symmetric renal nephrograms, without hydronephrosis. The abdominal aorta is normal caliber. No enlarged lymph nodes or ascites are seen. There is a small amount of fluid within the stomach. There are borderline caliber small bowel loops, some of which contain air. There is no wall thickening. There is moderate stool at the ascending and transverse colon. The left colon is mostly decompressed. Dextroscoliotic curvature and mild degenerative changes are seen at the spine. Images through the pelvis show normal caliber small bowel loops. The appendix is not definitely seen. There is air and mild stool at the rectosigmoid colon. No diverticular disease is noted. The prostate is not significantly enlarged. There are no urinary bladder abnormalities for the degree of distention. No ascites is visualized. CT/CT abdomen pelvis w con IMPRESSION: BIBASILAR BRONCHIECTASIS. SLIGHT WORSENING OF LEFT AIRSPACE OPACITY. NO BOWEL OR URINARY TRACT OBSTRUCTION. NO OTHER ACUTE FINDINGS. Impression dictated by: Amy Coats M.D. 02/24/2025 11:43 AM Dictation Location: [place] [address] Electronically authenticated by: [id number] Y Date: 02/24/2025 11:43
--- NOTE | 2025-02-24 10:09 | XR_ITS ---
The [place] [id number] Patient Name: FRANCIS GALVEZ MRN: [id number] date: 1990 Sex: M Assigned Patient Location: ER Current Patient Location: ER Accession/Order Number: [id number] Exam Date: 02/24/2025 10:46 Report Date: 02/24/2025 11:29 At the request of: DESTINEY LARSEN DO Procedure: XR chest 2V PA AND LATERAL CHEST: CLINICAL HISTORY: Right-sided abdominal pain, productive cough, shortness of breath and chills COMPARISON: CT and chest x-ray 08/09/2024 and 05/10/2024 There is chronic blunting at the left costophrenic angle. There is minimal atelectasis or scarring. Bronchiectasis is again seen. The patchy airspace opacities present at the time of the July comparison have resolved. There is no new consolidation, effusion or pneumothorax. The cardiac, hilar and mediastinal silhouettes are similar. There is no vascular congestion. The visualized bony thorax is intact. XR/XR chest 2V IMPRESSION: CHRONIC CHANGES. NO DEFINITE ACUTE FINDINGS. Impression dictated by: Amy Coats M.D. 02/24/2025 11:29 AM Dictation Location: [place] [address] Electronically authenticated by: [id number] Y Date: 02/24/2025 11:29
[2025-02-24] MEDS: HYDROMORPHONE HCL 1 MG/ML CARTRIDGE IV (10:23)
[2025-02-24] MEDS: 0.9 % SODIUM CHLORIDE 1,000 ML 1000 ML IV (10:23)
[2025-02-24 10:31] LABS: Hematocrit 43.6 % (42.0-54.0); Hemoglobin 15.0 g/dL (14.0-18.0); Immature Granulocytes Abs Auto 0.03 10^3/uL (0.00-0.03); Immature Granulocytes Pct Auto 0.3 % (0.0-0.5); Lymphocytes Absolute Auto 0.8 10^3/uL (1.2-3.8); Mean Corpuscular HGB Conc 34.4 g/dL (29.9-35.2); Mean Corpuscular Hemoglobin 29.0 pg (25.9-34.0); Mean Corpuscular Volume 84.2 fL (80.0-94.0); Platelet Count 221 10^3/uL (150-450); Red Blood Count 5.18 10^6/uL (4.70-6.10); White Blood Count 11.4 10^3/uL (4.0-11.0)
[2025-02-24 10:49] LABS: Alanine Aminotransferase 13 U/L (16-63); Albumin Globulin Ratio 1.1; Albumin Level 3.8 g/dL (3.4-5.0); Alkaline Phosphatase 93 U/L (46-116); Anion Gap 14.2; Aspartate Amino Transferase 11 U/L (15-37); Blood Urea Nitrogen 10.0 mg/dL (7.0-18.0); Calcium 8.7 mg/dL (8.5-10.1); Carbon Dioxide 25.1 mmol/L (21.0-32.0); Chloride 104 mmol/L (98-107); Estimated GFR (African America >60 (>=60 mL/min/1.73m^2); Estimated GFR (Non-African Ame >60 (>=60 mL/min/1.73m^2); Globulin 3.5 g/dL; Glucose 121 mg/dL (74-106); Lipase 22.0 U/L (16.0-77.0); Potassium 3.3 mmol/L (3.5-5.1); Sodium 140 mmol/L (136-145); Total Protein 7.3 g/dL (6.4-8.2)
--- NOTE | 2025-02-24 13:01 | ED_ITS ---
HPI HPI - General Adult General Chief complaint: Abdominal Pain Stated complaint: ABDOMINAL PAIN Time Seen by Provider: 02/24/25 09:58 Source: patient Mode of arrival: walk-in Limitations: no limitations History of Present Illness HPI narrative: Patient is a 34-year-old male presenting to the emergency department for evaluation of abdominal pain and shortness of breath. Patient states that last night he started experiencing right upper quadrant abdominal pain. He states it is associate with nausea, has not had any vomiting, constipation, or diarrhea. No fevers or chills. No history of gallstones. He does not drink and has no history of pancreatitis. Additionally, the patient states that he has been feeling short of breath over the last few days. He states he was on Levaquin for pneumonia, but finished his course of antibiotics just over a week ago. He states he has been having an increase in change in his sputum production. His sputum is usually clear, but now is thick and yellow. He is concerned he has pneumonia. 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 Related Data Home Medications ?Medication ?Instructions ?Recorded ?Confirmed trazodone 50 mg tablet 50 mg PO BEDTIME PRN sleep 0 09/13/23 02/24/25 esomeprazole magnesium 40 mg 40 mg PO Q12H 08/09/24 capsule,delayed release Previous Rx's ?Medication ?Instructions ?Recorded albuterol sulfate 2.5 mg/3 mL 2.5 mg (3 mL) inhalation Q6H PRN 05/25/23 (0.083 %) solution for nebulization shortness of breat h or wheezing #75 mL albuterol sulfate 90 mcg/actuation 1 inh inhalation Q4 H PRN shortness 03/22/24 aerosol inhaler of breath or wheezing #8.5 g glenis albuterol sulfate 2.5 mg/3 mL 2.5 mg (3 mL) inhalation Q6H PRN 08/16/24 (0.083 %) solution for nebulization shortness of breat h or wheezing #75 mL Allergies Allergy/AdvReac Type Severity Reaction Status Date / Time Penicillins Allergy Intermediate Hives Verified 02/24/25 09:55 Opioid HPI Opioid Management Most Recent Opioid Data: Last Pain Scale 7 Today, 13:24 Last MAR Pain Assessment Today, 10:23 Last ORT Total Score 7 08/09/24, 13:12 Last ORT Risk Category Moderate Risk 08/09/24, 13:12 Ur Phencyclidine Scrn, (NEGATIVE) Negative , 11:49 Review of Systems ROS Status of ROS 10 or more systems reviewed and unremark able except as noted in history and below [facility] Medical History Insomnia ?G47.00 - Insomnia, unspecified (ICD-10) Hypernatremia ?E87.0 - Hyperosmolality and hypernatremia (ICD-10) Right lower lobe pneumonia ?J18.9 - Pneumonia, unspecified organism (ICD-10) Lactic acidosis ?E87.20 - Acidosis, unspecified (ICD-10) Chronic hypoxic respiratory failure, on home oxygen therapy ?J96.11 - Chronic respiratory failure with hypoxia (ICD-10) ?Z99.81 - Dependence on supplemental oxygen (ICD-10) Asthma exacerbation ?J45.901 - Unspecified asthma with (acute) exacerbation (ICD-10) Upper respiratory infection ?J06.9 - Acute upper respiratory infection, unspecified (ICD-10) Esophagitis with gastritis ?K29.70 - Gastritis, unspecified, without bleeding (ICD-10) ?K20.90 - Esophagitis, unspecified without bleeding (ICD-10) Leukocytosis ?D72.829 - Elevated white blood cell count, unspecified (ICD-10) Dyspnea ?R06.00 - Dyspnea, unspecified (ICD-10) Hypoxia ?R09.02 - Hypoxemia (ICD-10) Bronchiectasis with acute exacerbation ?J47.1 - Bronchiectasis with (acute) exacerbation (ICD-10) Depression with anxiety ?F41.8 - Other specified anxiety disorders (ICD-10) Steroid-induced hyperglycemia ?R73.9 - Hyperglycemia, unspecified (ICD-10) ?T38.0X5A - Adverse effect of glucocorticoids and synthetic analogues, initial encounter (ICD-10) Hyponatremia ?E87.1 - Hypo-osmolality and hyponatremia (ICD-10) Chest wall pain ?R07.89 - Other chest pain (ICD-10) Pneumonia ?J18.9 - Pneumonia, unspecified organism (ICD-10) Malnutrition of moderate degree ?E44.0 - Moderate protein-calorie malnutrition (ICD-10) Depression ?F32.A - Depression, unspecified (ICD-10) Bronchiectasis ?J47.9 - Bronchiectasis, uncomplicated (ICD-10) Chronic respiratory failure with hypoxia ?J96.11 - Chronic respiratory failure with hypoxia (ICD-10) Upper respiratory infection ?J06.9 - Acute upper respiratory infection, unspecified (ICD-10) Acute hypokalemia ?E87.6 - Hypokalemia (ICD-10) Avulsion of skin ?T14.8XXA - Other injury of unspecified body region, initial encounter (ICD- 10) Influenza ?J11.1 - Influenza due to unidentified influenza virus with other respiratory manifestations (ICD-10) Marijuana abuse ?F12.10 - Cannabis abuse, uncomplicated (ICD-10) Acute hypoxic respiratory failure ?J96.01 - Acute respiratory failure with hypoxia (ICD-10) Coronavirus infection ?B34.2 - Coronavirus infection, unspecified (ICD-10) Pneumonia ?J18.9 - Pneumonia, unspecified organism (ICD-10) Hospital-acquired bacterial pneumonia ?J15.9 - Unspecified bacterial pneumonia (ICD-10) COVID-19 ?U07.1 - COVID-19 (ICD-10) GERD (gastroesophageal reflux disease) ?K21.9 - Gastro-esophageal reflux disease without esophagitis (ICD-10) 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 - Pyothorax with fistula (ICD-10) Shortness of breath ?R06.02 - Shortness of breath (ICD-10) Chronic dyspnea ?R06.09 - Other forms of dyspnea (ICD-10) Viral infection ?B34.9 - Viral infection, unspecified (ICD-10) Hypoxia ?R09.02 - Hypoxemia (ICD-10) Acute asthma exacerbation ?J45.901 - Unspecified asthma with (acute) exacerbation (ICD-10) Bronchitis ?J40 - Bronchitis, not specified as acute or chronic (ICD-10) History of home oxygen therapy ?Z99.81 - Dependence on supplemental oxygen (ICD-10) Oxygen desaturation during sleep ?G47.34 - 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) History of gastrostomy tube placement Abdominal pain, acute ?R10.9 - Unspecified abdominal pain (ICD-10) Surgical History History of fundoplication ?Z98.890 - Other specified postprocedural states (ICD-10) History of appendectomy ?Z90.49 - Acquired absence of other specified parts of digestive tract (ICD- 10) H/O chest tube placement ?Z98.890 - Other specified postprocedural states (ICD-10) History of facial surgery ?Z98.890 - Other specified postprocedural states (ICD-10) Family History Mother Family history of diabetes mellitus Family history of hypertension Grandmother Family history of diabetes mellitus Grandfather Family history of myocardial infarction Social History Within the past year, how often did you have a drink containing alcohol: monthly or less Within the past year, how many standard drinks containing alcohol did you have on a typical day: 1 or 2 Within the past year, how often did you have six or more drinks on one occasion: less than monthly Total score: 1 Score interpretation: A score less than 4 is consistent with normal alcohol consumption. Smoking status: Former smoker Nicotine containing products detail: quit smoking 4 months ago Non-prescribed substance use: cannabis (any form) Previous occupational history: [employer] Known occupational exposures/hazards: No Highest level of school completed/degree received: high school graduate Are you now , , , , never or living with a partner: In a typical week, how many times do you talk on the telephone with family, friends, or neighbors: 3 or more times per week How often do you get together with friends or relatives: once per week How often do you attend hindu or yazidism services: never Do you belong to any clubs or organizations such as hindu groups unions, fraternal or athletic groups, or school groups: no Total score: 1 Score interpretation: A score of less than or equal to 1 indicates the most socially isolated. Little interest or pleasure in doing things: not at all Feeling down, depressed, or hopeless: not at all Feel stressed/tense/nervous/anxious/difficulty sleeping: not at all Do you think of yourself as: straight/heterosexual Gender Identity: male Exam Narrative Exam Narrative: CONSTITUTIONAL: Patient appears to be in significant distress, laying in the position, answer questions and following commands appropriately SKIN: Was warm and dry. EYES: No scleral icterus. EARS, NOSE, THROAT: Moist mucosa. RESPIRATORY: Coarse breath sounds bilaterally, worse at the bases. Speaking in truncated sentences. No use of accessory muscles. CARDIOVASCULAR: Normal rate and regular rhythm. There is no S3, S4, murmur, rub. GASTROINTESTINAL: Tenderness to palpation to the epigastrium and right upper quadrant. Negative Yip sign. No rebound tenderness. No guarding. MUSCULOSKELETAL: No peripheral edema. NEUROLOGIC: Patient is awake and alert. Ambulates with a steady gait. Constitutional Vital Signs, click to edit/add: Last Vital Signs Temp 99.3 F 02/24/25 09:49 Pulse 94 H 02/24/25 13:21 Resp 16 02/24/25 13:21 BP 100/63 02/24/25 13:21 Pulse Ox 95 02/24/25 13:21 O2 Del Method Room Air 02/24/25 13:21 Course Vital Signs Vital signs: Vital Signs Temperature 99.3 F 02/24/25 09:49 Pulse Rate 116 H 02/24/25 09:49 Respiratory Rate 16 02/24/25 09:49 Blood Pressure 111/69 02/24/25 09:49 Pulse Oximetry 94 L 02/24/25 09:49 Oxygen Delivery Method Room Air 02/24/25 09:49 Temperature 99.3 F 02/24/25 09:49 Pulse Rate 94 H 02/24/25 13:21 Respiratory Rate 16 02/24/25 13:21 Blood Pressure 100/63 02/24/25 13:21 Pulse Oximetry 95 02/24/25 13:21 Oxygen Delivery Method Room Air 02/24/25 13:21 Medical Decision Making [facility] Narrative Medical decision making narrative: Patient is a 34-year-old male, history significant for bronchiectasis and chronic hypoxic respiratory failure, presenting to the emergency department for abdominal pain starting last night and shortness of breath/worsening sputum production over the last few days. On review of external documentation, patient is known to Dr. Mac, pulmonology. He has a history of chronic hypoxic respiratory failure and is supposed to get home oxygen, though the patient is overall noncompliant with treatment and has not been using it. His vital signs arrival today are within normal limits. He is afebrile and hemodynamically stable. He is saturating 95% on room air. He has coarse breath sounds bila terally and is speaking in truncated sentences. There is tenderness to palpation in the right upper quadrant/epigastrium without peritoneal signs. Differential diagnose includes cholecystitis, pancreatitis, hepatitis, pneumonia, pleural effusions, pneumothorax, or other intra-abdominal pathologies. IV was established and laboratory studies were obtained. Chest x- ray and CT abdomen/pelvis was ordered. He was treated with 1 L bolus normal saline, IV Dilaudid, and IV Zofran. CT abdomen/pelvis independently reviewed and interpreted by myself and radiology demonstrated bibasilar bronchiectasis with slight worsening of left airspace opacity. No acute intra-abdominal findings. Chest x-ray independently reviewed and interpreted by myself and radiology demonstrated chronic bronchiectasis without acute findings. X-rays improved since his x-ray from July of this year. Laboratory studies were significant for mild leukocytosis. No anemia. Mild hypokalemia without other electrolyte derangement. No evidence of acute renal injury. Mild transaminitis and hyperbilirubinemia. Lipase nonelevated. On reevaluation, the patient states his abdominal pain is significantly proved and he is tolerating p.o. However, he still feels short of breath and is concerned that he has pneumonia. On ambulatory pulse ox, he maintains a saturation at 92% on room air. The patient is likely appropriate for outpatient antibiotic therapy and follow-up with his ocular care technician. However, the patient is requesting to be admitted to the observation unit as he still feels unwell and not comfortable going home. Given his change in sputum production, I did elect to treat him for pneumonia with IV ceftazidime, IV vancomycin, and IV doxycycline as this worked during his last admission. I discussed the patient with hospitalist Dr. Quarles, who accepted the patient to his service. FINAL IMPRESSION: #Acute cough and shortness of breath, possible pneumonia #Acute abdominal pain, improved #History of chronic hypoxic respiratory failure and bronchiectasis DISPOSITION: Admitted to the observation unit CONDITION: Fair Medical Records Medical records reviewed: Yes I reviewed the patient's medical records Lab Data Lab results reviewed: Yes I reviewed the patient's lab results Labs: Lab Results 02/24/25 Range/Units 10:20 WBC 11.4 H (4.0-11.0) 10^3/uL RBC 5.18 (4.70-6.10) 10^6/uL Hgb 15.0 (14.0-18.0) g/dL Hct 43.6 (42.0-54.0) % MCV 84.2 (80.0-94.0) fL MCH 29.0 (25.9-34.0) pg MCHC 34.4 (29.9-35.2) g/dL RDW 13.7 (11.0-15.0) % Plt Count 221 (150-450) 10^3/uL MPV 11.3 (9.5-13.5) fL Neut % (Auto) 81.9 H (43.0-75.0) % Lymph % (Auto) 7.3 L (20.5-60.0) % [place] % (Auto) 9.7 (1.7-12.0) % Eos % (Auto) 0.1 L (0.9-7.0) % Baso % (Auto) 0.7 (0.2-2.0) % Neut # (Auto) 9.3 H (1.4-6.5) 10^3/uL Lymph # (Auto) 0.8 L (1.2-3.8) 10^3/uL [place] # (Auto) 1.1 H (0.3-0.8) 10^3/uL Eos # (Auto) 0.0 (0.0-0.7) 10^3/uL Baso # (Auto) 0.1 (0.0-0.1) 10^3/uL Abs Immat Gran (auto) 0.03 (0.00-0.03) 10^3/uL Imm/Tot Granulo (auto) 0.3 (0.0-0.5) % Sodium 140 (136-145) mmol/L Potassium 3.3 L (3.5-5.1) mmol/L Chloride 104 (98-107) mmol/L Carbon Dioxide 25.1 (21.0-32.0) mmol/L Anion Gap 14.2 BUN 10.0 (7.0-18.0) mg/dL Creatinine 0.86 (0.70-1.30) mg/dL Est GFR ( Amer) >60 (>=60 mL/min/1.73m^2) Est GFR (Non-Af Amer) >60 (>=60 mL/min/1.73m^2) BUN/Creatinine Ratio 11.6 Glucose 121 H (74-106) mg/dL Calcium 8.7 (8.5-10.1) mg/dL Total Bilirubin 1.2 H (0.2-1.0) mg/dL AST 11 L (15-37) U/L ALT 13 L (16-63) U/L Alkaline Phosphatase 93 (46-116) U/L Total Protein 7.3 (6.4-8.2) g/dL Albumin 3.8 (3.4-5.0) g/dL Globulin 3.5 g/dL Albumin/Globulin Ratio 1.1 Lipase 22.0 (16.0-77.0) U/L Imaging Data CT scan - abdomen: Attestation: I personally reviewed and interpreted this imaging study as follows: Radiologist's impression: ITS Impressions Abdomen/Pelvis CT 02/24/25 10:09 IMPRESSION: BIBASILAR BRONCHIECTASIS. SLIGHT WORSENING OF LEFT AIRSPACE OPACITY. NO BOWEL OR URINARY TRACT OBSTRUCTION. NO OTHER ACUTE FINDINGS. Impression dictated by: Amy Coats M.D. 02/24/2025 11:43 AM Dictation Location: [facility] Electronically authenticated by: [id number] Y Date: 02/24/2025 11:43 Chest X-Ray 02/24/25 10:09 IMPRESSION: CHRONIC CHANGES. NO DEFINITE ACUTE FINDINGS. Impression dictated by: Amy Coats M.D. 02/24/2025 11:29 AM Dictation Location: [facility] Electronically authenticated by: [id number] Y Date: 02/24/2025 11:29 Discharge Plan Discharge Chief Complaint: Abdominal Pain Clinical Impression: Chronic shortness of breath Bronchiectasis Qualifiers: Bronchiectasis type: with acute lower respiratory infection Qualified Code(s): J47.0 - Bronchiectasis with acute lower respiratory infection Patient Disposition: Admitted as Observation Time of Disposition Decision: 13:02 Condition: Fair
[2025-02-24] MEDS: CEFTAZIDIME 1,000 MG in 0.9 % SODIUM CHLORIDE 50 ML 100 MG IV ×2 (13:12→22:41)
[2025-02-24] MEDS: ACETAMINOPHEN 500 MG TABLET 1000 MG PO (13:24)
[2025-02-24] MEDS: DOXYCYCLINE HYCLATE 100 MG in 0.9 % SODIUM CHLORIDE 100 ML IV (13:50)
--- NOTE | 2025-02-24 16:29 | P.HP_ITS ---
HPI H&P: HPI History of Present Illness Chief complaint: SOB BRONCHIESTASIS Narrative: Mr. Solomon is a 34-year-old gentleman with a known diagnosis of bronchiectasis for which he follows up with Dr. Fuller. Patient came in with progressive low-grade fever, chills, cough, congestion and wheezing. He reported having upper abdominal discomfort when coughing. Constipated. No nausea or vomiting. Hematemesis or melena. No dysuria or hematuria. Opioid HPI Opioid Management Most Recent Pain and Opioid Data: Last Pain Scale 4 Today, 15:57 Last Pain Assessment Today, 15:57 Last MAR Pain Assessment Today, 10:23 Last ORT Total Score 14 Today, 14:30 Last ORT Risk Category High Risk Today, 14:30 Ur Phencyclidine Scrn, (NEGATIVE) Negative , 11:49 Review of Systems ROS Status of ROS 10 or more systems reviewed and unremark able except as noted in history and below [facility] Medical History (Updated 02/24/25 @ 16:31 by Sasha Quarles MD) Bronchiectasis ?J47.9 - Bronchiectasis, uncomplicated (ICD-10) Healthcare-associated pneumonia ?J18.9 - Pneumonia, unspecified organism (ICD-10) Asthma exacerbation ?J45.901 - Unspecified asthma with (acute) exacerbation (ICD-10) Hypoxemia ?R09.02 - Hypoxemia (ICD-10) Multifocal pneumonia ?J18.9 - Pneumonia, unspecified organism (ICD-10) Respiratory failure ?J96.90 - Respiratory failure, unspecified, unspecified whether with hypoxia or hypercapnia (ICD-10) Constipation ?K59.00 - Constipation, unspecified (ICD-10) Nausea and vomiting ?R11.2 - Nausea with vomiting, unspecified (ICD-10) Tobacco abuse ?Z72.0 - Tobacco use (ICD-10) Acute hypoxic respiratory failure ?J96.01 - Acute respiratory failure with hypoxia (ICD-10) Insomnia ?G47.00 - Insomnia, unspecified (ICD-10) Hypernatremia ?E87.0 - Hyperosmolality and hypernatremia (ICD-10) Right lower lobe pneumonia ?J18.9 - Pneumonia, unspecified organism (ICD-10) Lactic acidosis ?E87.20 - Acidosis, unspecified (ICD-10) Chronic hypoxic respiratory failure, on home oxygen therapy ?J96.11 - Chronic respiratory failure with hypoxia (ICD-10) ?Z99.81 - Dependence on supplemental oxygen (ICD-10) Asthma exacerbation ?J45.901 - Unspecified asthma with (acute) exacerbation (ICD-10) Upper respiratory infection ?J06.9 - Acute upper respiratory infection, unspecified (ICD-10) Esophagitis with gastritis ?K29.70 - Gastritis, unspecified, without bleeding (ICD-10) ?K20.90 - Esophagitis, unspecified without bleeding (ICD-10) Leukocytosis ?D72.829 - Elevated white blood cell count, unspecified (ICD-10) Dyspnea ?R06.00 - Dyspnea, unspecified (ICD-10) Hypoxia ?R09.02 - Hypoxemia (ICD-10) Depression with anxiety ?F41.8 - Other specified anxiety disorders (ICD-10) Steroid-induced hyperglycemia ?R73.9 - Hyperglycemia, unspecified (ICD-10) ?T38.0X5A - Adverse effect of glucocorticoids and synthetic analogues, initial encounter (ICD-10) Hyponatremia ?E87.1 - Hypo-osmolality and hyponatremia (ICD-10) Chest wall pain ?R07.89 - Other chest pain (ICD-10) Pneumonia ?J18.9 - Pneumonia, unspecified organism (ICD-10) Malnutrition of moderate degree ?E44.0 - Moderate protein-calorie malnutrition (ICD-10) Depression ?F32.A - Depression, unspecified (ICD-10) Bronchiectasis ?J47.9 - Bronchiectasis, uncomplicated (ICD-10) Upper respiratory infection ?J06.9 - Acute upper respiratory infection, unspecified (ICD-10) Acute hypokalemia ?E87.6 - Hypokalemia (ICD-10) Avulsion of skin ?T14.8XXA - Other injury of unspecified body region, initial encounter (ICD- 10) Influenza ?J11.1 - Influenza due to unidentified influenza virus with other respiratory manifestations (ICD-10) Marijuana abuse ?F12.10 - Cannabis abuse, uncomplicated (ICD-10) Coronavirus infection ?B34.2 - Coronavirus infection, unspecified (ICD-10) Pneumonia ?J18.9 - Pneumonia, unspecified organism (ICD-10) Hospital-acquired bacterial pneumonia ?J15.9 - Unspecified bacterial pneumonia (ICD-10) COVID-19 ?U07.1 - COVID-19 (ICD-10) GERD (gastroesophageal reflux disease) ?K21.9 - Gastro-esophageal reflux disease without esophagitis (ICD-10) 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 - Pyothorax with fistula (ICD-10) Shortness of breath ?R06.02 - Shortness of breath (ICD-10) Chronic dyspnea ?R06.09 - Other forms of dyspnea (ICD-10) Viral infection ?B34.9 - Viral infection, unspecified (ICD-10) Hypoxia ?R09.02 - Hypoxemia (ICD-10) Acute asthma exacerbation ?J45.901 - Unspecified asthma with (acute) exacerbation (ICD-10) Bronchitis ?J40 - Bronchitis, not specified as acute or chronic (ICD-10) History of home oxygen therapy ?Z99.81 - Dependence on supplemental oxygen (ICD-10) Oxygen desaturation during sleep ?G47.34 - 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) History of gastrostomy tube placement Abdominal pain, acute ?R10.9 - Unspecified abdominal pain (ICD-10) Surgical History History of fundoplication ?Z98.890 - Other specified postprocedural states (ICD-10) History of appendectomy ?Z90.49 - Acquired absence of other specified parts of digestive tract (ICD- 10) H/O chest tube placement ?Z98.890 - Other specified postprocedural states (ICD-10) History of facial surgery ?Z98.890 - Other specified postprocedural states (ICD-10) Family History Mother Family history of diabetes mellitus Family history of hypertension Grandmother Family history of diabetes mellitus Grandfather Family history of myocardial infarction Social History Within the past year, how often did you have a drink containing alcohol: monthly or less Within the past year, how many standard drinks containing alcohol did you have on a typical day: 1 or 2 Within the past year, how often did you have six or more drinks on one occasion: less than monthly Total score: 1 Score interpretation: A score less than 4 is consistent with normal alcohol consumption. 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 [employer] Known occupational exposures/hazards: No Highest level of school completed/degree received: high school graduate Are you now , , , , never or living with a partner: In a typical week, how many times do you talk on the telephone with family, friends, or neighbors: 3 or more times per week How often do you get together with friends or relatives: once per week How often do you attend mormon or worship services: never Do you belong to any clubs or organizations such as mormon groups unions, [employer] or athletic groups, or school groups: no Total score: 1 Score interpretation: A score of less than or equal to 1 indicates the most socially isolated. Little interest or pleasure in doing things: not at all Feeling down, depressed, or hopeless: not at all Feel stressed/tense/nervous/anxious/difficulty sleeping: not at all Do you think of yourself as: straight/heterosexual Gender Identity: male Meds Home Medications and Allergies Home Medications ?Medication ?Instructions ?Recorded ?Confirmed ?Type albuterol sulfate 2.5 mg/3 mL 2.5 mg (3 mL) inhalation Q6H PRN 05/25/23 02/24/25 Rx (0.083 %) solution for nebulization shortness of breat h or wheezing #75 mL trazodone 50 mg tablet 50 mg PO BEDTIME PRN sleep 0 09/13/23 02/24/25 History albuterol sulfate 90 mcg/actuation 1 inh inhalation Q4 H PRN shortness 03/22/24 02/24/25 Rx aerosol inhaler of breath or wheezing #8.5 g glenis esomeprazole magnesium 40 mg 40 mg PO .bidac 08/09/24 08/09/24 History capsule,delayed release dexlansoprazole 60 mg 60 mg PO DAILY 02/24/25 His tory capsule,biphase delayed release fluticasone propionate 50 2 spray intranasal DAILY 02/24/25 History mcg/actuation nasal spray,suspension Allergies Allergy/AdvReac Type Severity Reaction Status Date / Time Penicillins Allergy Intermediate Hives Verified 02/24/25 09:55 Exam Narrative Exam Narrative: [pt is awake and alert. oriented to place, time and person HEENT: [place] conjunctiva and NL buccal mucosa Neck: Supple, no tenderness Endocrine: No Thyromegaly. Vascular: No JVD or carotid bruit. Lymphatic: No cervical lymphadenopathy. Chest: Bilateral wheezing or rhonchi Heart RRR, no extra sound or murmur. 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 Increase abd girth therefore clinically I could not exclude the possibility of intra abd mass or organomegaly. LE: No cyanosis or clubbing, no varices or edema. Neuro: A A O. Nl speech, comprehension and attention. Nl and symetrical motor and tone examination through out. []] Constitutional Vital Signs, click to edit/add: Last Vital Signs Temp 97.6 F 02/24/25 14:30 Pulse 100 H 02/24/25 14:30 Resp 18 02/24/25 14:30 BP 104/67 02/24/25 14:30 Pulse Ox 92 L 02/24/25 14:30 O2 Del Method Room Air 02/24/25 14:30 Results Labs Labs: Short CBC 02/24/25 Range/Units 10:20 WBC 11.4 H (4.0-11.0) 10^3/uL Hgb 15.0 (14.0-18.0) g/dL Hct 43.6 (42.0-54.0) % Plt Count 221 (150-450) 10^3/uL BMP 02/24/25 10:20 Sodium 140 Potassium 3.3 L Chloride 104 Carbon Dioxide 25.1 BUN 10.0 Creatinine 0.86 Glucose 121 H Calcium 8.7 Liver Function 02/24/25 Range/Units 10:20 Total Bilirubin 1.2 H (0.2-1.0) mg/dL AST 11 L (15-37) U/L ALT 13 L (16-63) U/L Alkaline Phosphatase 93 (46-116) U/L Albumin 3.8 (3.4-5.0) g/dL Assessment and Plan Assessment and Plan (1) Acute bronchospasm: (2) Pneumonia: (3) Bronchiectasis with acute exacerbation: (4) Hypokalemia: Plan Acute bronchospasm in the setting of bronchiectasis and chronic hypoxic respira tory failure on oxygen. Patient does not wear it all the time. Pneumonia, could be Pseudomonas I started patient on albuterol, Atrovent, Solu-Medrol, ceftazidime and Zithromax As needed cough medication. Blood culture Pulmicort twice a day Hypokalemia Potassium supplementation. Check magnesium and phosphorus level. Slight elevation of the bilirubin No tenderness in the right upper quadrant, no significant Repeat level in AM. History of drug use Counseling and education were provided Chronic, subacute medical conditions not listed above, abnormal labs and imaging. These would need to be addressed. Could be addressed later on or in the outpatient setting by PCP collaboration with other needed outpatient providers when time and condition are appropriate.
[2025-02-24] MEDS: POTASSIUM CHLORIDE 10 MEQ ER TABLET 40 MEQ PO (17:05)
[2025-02-24] MEDS: VANCOMYCIN HCL 1,000 MG in 0.9 % SODIUM CHLORIDE 250 ML 250 MG IV (17:06)
[2025-02-24] MEDS: 0.9 % SODIUM CHLORIDE 1,000 ML 100 ML IV (17:06)
[2025-02-24] MEDS: ALBUTEROL SULFATE 2.5 MG/3 ML VIAL NEB IH (18:48)
[2025-02-24 21:16] LABS: SARS-CoV-2 Ag NEGATIVE (NEGATIVE)
[2025-02-24] MEDS: BUDESONIDE 0.5 MG/2 ML AMPULE NEB IH (21:57)
[2025-02-24] MEDS: IPRATROPIUM/ALBUTEROL SULFATE 3 ML AMPUL.NEB IH (21:57)
[2025-02-24] MEDS: METHYLPREDNISOLONE SOD SUCC PF 40 MG/ML VIAL IVP (22:41)
[2025-02-24] MEDS: AZITHROMYCIN 500 MG in 0.9 % SODIUM CHLORIDE 250 ML 250 MG IV (22:41)
[2025-02-24] MEDS: SENNOSIDES/DOCUSATE SODIUM 1 TAB TABLET PO (22:41)
[2025-02-24] MEDS: ENOXAPARIN SODIUM 40 MG/0.4 ML SYRINGE SUBQ (22:44)
[2025-02-25] VITALS (11 sets, daily range): BP systolic 104–120; BP diastolic 57–74; PULSE 88–105; TEMP 36.4–36.9; O2SAT 92–98
[2025-02-25] MEDS: 0.9 % SODIUM CHLORIDE 1,000 ML 100 ML IV (03:45)
[2025-02-25] MEDS: IPRATROPIUM/ALBUTEROL SULFATE 3 ML AMPUL.NEB IH ×4 (05:20→20:11)
[2025-02-25] MEDS: PANTOPRAZOLE SODIUM 40 MG TABLET.DR PO (06:07)
[2025-02-25] MEDS: CEFTAZIDIME 1,000 MG in 0.9 % SODIUM CHLORIDE 50 ML 100 MG IV ×3 (06:08→22:06)
[2025-02-25 06:22] LABS: Hematocrit 39.5 % (42.0-54.0); Hemoglobin 13.5 g/dL (14.0-18.0); Mean Corpuscular HGB Conc 34.2 g/dL (29.9-35.2); Mean Corpuscular Hemoglobin 29.0 pg (25.9-34.0); Mean Corpuscular Volume 84.9 fL (80.0-94.0); Platelet Count 214 10^3/uL (150-450); Red Blood Count 4.65 10^6/uL (4.70-6.10); White Blood Count 6.2 10^3/uL (4.0-11.0)
[2025-02-25 06:44] LABS: Alanine Aminotransferase 14 U/L (16-63); Albumin Globulin Ratio 0.9; Albumin Level 3.2 g/dL (3.4-5.0); Alkaline Phosphatase 94 U/L (46-116); Anion Gap 15.1; Aspartate Amino Transferase 9 U/L (15-37); Blood Urea Nitrogen 9.0 mg/dL (7.0-18.0); Calcium 8.6 mg/dL (8.5-10.1); Carbon Dioxide 23.1 mmol/L (21.0-32.0); Chloride 106 mmol/L (98-107); Estimated GFR (African America >60 (>=60 mL/min/1.73m^2); Estimated GFR (Non-African Ame >60 (>=60 mL/min/1.73m^2); Globulin 3.4 g/dL; Glucose 247 mg/dL (74-106); Magnesium 1.9 mg/dL (1.8-2.4); Potassium 4.2 mmol/L (3.5-5.1); Sodium 140 mmol/L (136-145); Total Protein 6.6 g/dL (6.4-8.2)
--- NOTE | 2025-02-25 08:20 | CM.NOTE ---
Rounds made with Dr. Quarles, discussed with pt diagnosis and plan of care. Pt will be inpatient status, no discharge today. Pt is requiring oxygen at this time, RN will wean as pt tolerates.
[2025-02-25] MEDS: METHYLPREDNISOLONE SOD SUCC PF 40 MG/ML VIAL IVP (08:27)
[2025-02-25] MEDS: SENNOSIDES/DOCUSATE SODIUM 1 TAB TABLET PO ×2 (08:28→22:04)
--- NOTE | 2025-02-25 10:10 | PM.PN ---
Progress Note: Subjective Subjective Interval history: Patient is feeling better. Less cough and congestion. Less shortness of breath. Exam Narrative Exam Narrative: [pt is awake and alert. oriented to place, time and person HEENT: [place] conjunctiva and NL buccal mucosa Neck: Supple, no tenderness Endocrine: No Thyromegaly. Vascular: No JVD or carotid bruit. Lymphatic: No cervical lymphadenopathy. Chest: Improvement in some resolution of the bilateral wheezing or rhonchi Heart RRR, no extra sound or murmur. 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 Increase abd girth therefore clinically I could not exclude the possibility of intra abd mass or organomegaly. LE: No cyanosis or clubbing, no varices or edema. Neuro: A A O. Nl speech, comprehension and attention. Nl and symetrical motor and tone examination through out. []] Constitutional Vital Signs, click to edit/add: Last Vital Signs Temp 97.8 F 02/25/25 08:00 Pulse 89 02/25/25 08:00 Resp 20 02/25/25 08:00 BP 116/74 02/25/25 08:00 Pulse Ox 94 L 02/25/25 08:00 O2 Del Method Nasal Cannula 02/25/25 08:00 O2 Flow Rate 2 02/25/25 08:00 Progress Note: Objective Labs Labs: Short CBC 02/24/25 02/25/25 Range/Units 10:20 05:47 WBC 11.4 H 6.2 (4.0-11.0) 10^3/uL Hgb 15.0 13.5 L (14.0-18.0) g/dL Hct 43.6 39.5 L (42.0-54.0) % Plt Count 221 214 (150-450) 10^3/uL BMP 02/24/25 02/25/25 10:20 05:47 Sodium 140 140 Potassium 3.3 L 4.2 Chloride 104 106 Carbon Dioxide 25.1 23.1 BUN 10.0 9.0 Creatinine 0.86 0.93 Glucose 121 H 247 H Calcium 8.7 8.6 Liver Function 02/24/25 02/25/25 Range/Units 10:20 05:47 Total Bilirubin 1.2 H 0.4 (0.2-1.0) mg/dL AST 11 L 9 L (15-37) U/L ALT 13 L 14 L (16-63) U/L Alkaline Phosphatase 93 94 (46-116) U/L Albumin 3.8 3.2 L (3.4-5.0) g/dL Progress Note: A&P Assessment and Plan (1) Acute bronchospasm: (2) Pneumonia: (3) Bronchiectasis with acute exacerbation: (4) Hypokalemia: Plan Acute bronchospasm in the setting of bronchiectasis and chronic hypoxic respiratory failure on oxygen. Patient does not wear it all the time. Pneumonia, could be Pseudomonas I started patient on albuterol, Atrovent, Solu-Medrol, ceftazidime and Zithromax As needed cough medication. Blood and sputum culture Requested influenza, COVID and RSV which all came back negative. Pulmicort twice a day Hypokalemia Potassium supplementation. Check magnesium and phosphorus level. Hypophosphatemia, sodium phosphate supplementation Steroid-induced hyperglycemia. Previous A1c was 5.8 Start patient on sliding scale twice a day. Slight elevation of the bilirubin No tenderness in the right upper quadrant Resolution of the elevation. Unknown significance or etiologies. History of drug use Counseling and education were provided Chronic, subacute medical conditions not listed above, abnormal labs and imaging. These would need to be addressed. Could be addressed later on or in the outpatient setting by PCP collaboration with other needed outpatient providers when time and condition are appropriate.
[2025-02-25] MEDS: BUDESONIDE 0.5 MG/2 ML AMPULE NEB IH ×2 (10:14→20:11)
[2025-02-25] MEDS: SOD PHOSPHATE,MONOBASIC-DIBAS 15 MMOL in 0.9 % SODIUM CHLORIDE 100 ML 26.25 MMOL IV (11:04)
--- NOTE | 2025-02-25 11:20 | CM.NOTE ---
CM spoke with pt regarding f/u, pt is active with transcriptionist Alina. Pt wishes are to continue to see Dr. Fuller. Pt does have home oxygen, states he wears only at night. Pt is requiring oxygen ATC at this time, will wean as tolerated.
[2025-02-25] MEDS: INSULIN ASPART 300 UNIT/3 ML PEN SUBQ ×2 (12:20→22:09)
--- NOTE | 2025-02-25 15:28 | SWNOTE1 ---
SW met with pt to discuss dc needs. Pt is back living with his aunt. Pt was in [place] for a few months with his cousins. He stated it was a good experience, but scary as well. He voiced he is in a much better place mentally at this time. He quit smoking and vaping and only drinks on occasion. Pt does have home oxygen through [employer]. He said he has not needed to wear it throughout day, only at night, 2 liters. Last visit pt was set up with home oxygen 2 liters continuous and 3 liters at night. SW to call and confirm order. 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 He is on disability and has Medicaid. Pt voiced he is doing well and he does not have any discharge needs at this time.
--- NOTE | 2025-02-25 15:35 | SWNOTE1 ---
JAY called [facility] and the last prescription they have for oxygen is from 2021 and it is for 3 liters with exertion. JAY explained to [employer] that pt was discharged from this hospital on 08/13/24 and JAY had communicated with [facility] and a new prescription, walk test, and documentation was faxed to [facility] for 2 liters continuous and 3 liters at night for home oxygen. She voiced they do not have that information on file. She stated he does have 3 liters with exertion and he does have tanks and portable oxygen concentrator at home.
[2025-02-25] MEDS: ENOXAPARIN SODIUM 40 MG/0.4 ML SYRINGE SUBQ (22:03)
[2025-02-25] MEDS: AZITHROMYCIN 500 MG in 0.9 % SODIUM CHLORIDE 250 ML 250 MG IV (22:45)
[2025-02-26 03:44] VITALS: BP 108/69; PULSE 79; TEMP 36.6; O2SAT 96
[2025-02-26] MEDS: IPRATROPIUM/ALBUTEROL SULFATE 3 ML AMPUL.NEB IH ×2 (05:11→10:26)
[2025-02-26 05:13] VITALS: PULSE 77; O2SAT 97
[2025-02-26] MEDS: PANTOPRAZOLE SODIUM 40 MG TABLET.DR PO (05:46)
[2025-02-26] MEDS: CEFTAZIDIME 1,000 MG in 0.9 % SODIUM CHLORIDE 50 ML 100 MG IV (05:47)
[2025-02-26 07:30] VITALS: BP 102/52; PULSE 81; TEMP 36.6; O2SAT 95
[2025-02-26] MEDS: PREDNISONE 20 MG TABLET PO (09:11)
[2025-02-26] MEDS: BUDESONIDE 0.5 MG/2 ML AMPULE NEB IH (10:26)
[2025-02-26 10:28] VITALS: PULSE 97; O2SAT 97
[2025-02-26 10:52] VITALS: O2SAT 93; O2SAT 95; O2SAT 96
--- NOTE | 2025-02-26 11:49 | SWNOTE1 ---
Important Message from [employer] reviewed and discussed with patient. Pt. verbalized understanding and signed the form. Original given to patient and copy placed in patient?s chart. This was completed on 02/25/25, see copy on chart.
--- NOTE | 2025-02-26 11:53 | P.DS_ITS ---
DS: Providers Provider Date of admission: 02/25/25 09:25 Primary care physician: REBEKAH BARBOZA DS: Diagnosis Discharge Diagnosis (1) Acute bronchospasm: (2) Pneumonia: (3) Bronchiectasis with acute exacerbation: (4) Hypokalemia: Plan As listed above, below and others that are not listed DS: Summary Hospital Course Hospital Course: Mr. Solomon is a 34-year-old gentleman who came in with cough productive to yellowish sputum, green sometimes. Shortness of breath, upper abdominal di scomfort when having coughing spasm. Acute bronchospasm in the setting of bronchiectasis and chronic hypoxic respiratory failure on oxygen. Patient does not wear it all the time. Pneumonia, could be Pseudomonas I started patient on albuterol, Atrovent, Solu-Medrol, ceftazidime and Zithromax As needed cough medication. Blood and sputum culture pending Requested influenza, COVID and RSV which all came back negative. Pulmicort twice a day Patient has made significant improvement over the last 24 hours. Back to baseline. Patient will be discharged home on Levaquin and tapering dose of prednisone. Patient is to follow-up with Dr. Fuller. Hypokalemia Potassium supplementation. Check magnesium and phosphorus level. Hypophosphatemia, sodium phosphate supplementation Steroid-induced hyperglycemia. Previous A1c was 5.8 Start patient on sliding scale twice a day. Slight elevation of the bilirubin No tenderness in the right upper quadrant Resolution of the elevation. Unknown significance or etiologies. History of drug use Counseling and education were provided Patient stated that he has been sober for several months. Chronic, subacute medical conditions not listed above, abnormal labs and imaging. These would need to be addressed. Could be addressed later on or in the outpatient setting by PCP collaboration with other needed outpatient providers when time and condition are appropriate. Patient has few medical issues as listed above and others that are not listed. All appear to be stable. I do not have any clear or strong clinical justification to extend inpatient hospitalization. Patient however will require close and frequent monitoring as well as additional work-up, investigation and therapeutic intervention that could take place from this point on post discharge. That is to prevent relapse, decompensation, rehospitalization and other medical implications.. I instructed patient to ask her primary care doctor to obtain [facility] record entirely to address abnormalities seen on labs and imaging that I have and have not addressed during this hospitalization, follow-up on pending blood work, imaging and pathology is if available and to follow-up on needed medical care in the outpatient setting. Time Spent with Patient Time attestation: Total time spent providing and/or coordinating discharge services: Exam Constitutional Vital Signs, click to edit/add: Last Vital Signs Temp 97.8 F 02/26/25 07:30 Pulse 97 H 02/26/25 10:28 Resp 16 02/26/25 07:30 BP 102/52 02/26/25 07:30 Pulse Ox 97 02/26/25 10:28 O2 Del Method Room Air 02/26/25 10:28 O2 Flow Rate 2 02/26/25 07:30 DS: Data Data Completed and Pending Labs on day of discharge: Labs from last 24 hours 02/26/25 02/25/25 02/25/25 07:17 22:03 16:11 POC Glucose 145 H 183 H 210 H Discharge Plan Discharge Disposition: Home, Self-Care Condition: Fair Discharge Medications: New dextromethorphan-guaifenesin 10-100 mg/5 mL Syrup 10 ml PO Q6H PRN (Reason: Cough) Qty: 237 0RF levofloxacin 250 mg tablet 250 mg PO Q24H 10 Days Qty: 10 0RF prednisone 10 mg tablet 10 mg PO .as directed Qty: 15 0RF Rx Instructions: Take 1 tablet twice a day for 5 days then 1 tablet daily for 5 days Continued trazodone 50 mg tablet 50 mg PO BEDTIME PRN (Reason: sleep) albuterol sulfate 90 mcg/actuation HFA aerosol inhaler 1 inh inhalation Q4H PRN (Reason: shortness of breath or wheezing) Qty: 8.5 0RF albuterol sulfate 2.5 mg /3 mL (0.083 %) solution for nebulization 2.5 mg inhalation Q6H PRN (Reason: shortness of breath or wheezing) Qty: 75 0RF esomeprazole magnesium 40 mg capsule,delayed release(DR/EC) 40 mg PO .bidac fluticasone propionate 50 mcg/actuation spray,suspension 2 spray INTRANASAL DAILY Print Language: Algerian Patient Instructions: Prednisone (By mouth), Constipation (DC), Pneumonia (DC) Activity Restrictions/Additional Instructions: I may not have addressed or treated all of your medical illnesses or the abnormal blood work or imaging studies during this hospitalization. Please ask your primary care provider to obtain [facility] records entirely to follow up on all of the abnormal physical, laboratory, and imaging findings that I have not addressed. Please return back to the emergency room or seek medical attention if your symptoms worsen or return. Discharging you from [facility] does not mean that your medical care ends here and now. You may still need additional monitoring, work up, investigation, and treatment plan to be handled from this point on by out patient providers including your primary care provider and specialists. For any medication question, please contact your retail pharmacist or your primary care provider. Thank you. Forms: Portal Instructions Follow Up Appointments: 03/03 @ 1:30pm with Rebekah Barboza NP [phone] 04/28 @ 1:15pm with Dr. Fuller (Pulmonology) [address] [place] [address]
--- NOTE | 2025-02-26 14:33 | CM.NOTE ---
[address] Quarles for rounds. Pt to discharge home today.
--- NOTE | 2025-02-27 12:54 | CM.DCFOLLOWU ---
Person spoke with:Luis How are you feeling? Much better, I am grocery shopping right now How is your pain? No pain Did you understand your discharge instructions? Yes Do you have any questions about your discharge instructions? No Were you given any prescriptions at discharge? Yes Were you able to get your prescriptions filled? Yes all 3 of them Do you understand how to take your medications as ordered? Yes Do you have any questions about your follow up appointment and do you plan to keep your follow up appointment? No questions. I plan on keeping all of my appts. Is there anything else that you would like to discuss? No Questions/Comments/Concerns/Other:
--- NOTE | 2025-03-04 10:00 | CM.NOTE ---
Eugene txt Dr. Quarles final sputum culture results.
== END 2025-02-26 13:45 | disposition home or self-care (01) | DRG 194 ==
LOC: ER 13:02 → MS 14:28
PROVIDERS: Admitting Provider Internal Medicine; Emergency Provider Student in an Organized Health Care Education/Training Program; PCP Nurse Practitioner Family; Visit Provider Internal Medicine
DX: J18.9 Pneumonia, unspecified organism (principal); J47.0 Bronchiectasis with acute lower respiratory infection; J96.11 Chronic respiratory failure with hypoxia; J47.1 Bronchiectasis with (acute) exacerbation; Z87.891 Personal history of nicotine dependence; Z87.01 Personal history of pneumonia (recurrent); E87.6 Hypokalemia; Z99.81 Dependence on supplemental oxygen; Z87.898 Personal history of other specified conditions; Z86.16 Personal history of COVID-19; F41.8 Other specified anxiety disorders; Z90.49 Acquired absence of other specified parts of digestive tract; J98.01 Acute bronchospasm; E83.39 Other disorders of phosphorus metabolism; R73.9 Hyperglycemia, unspecified; T38.0X5A Adverse effect of glucocorticoids and synthetic analogues, initial encounter; E80.6 Other disorders of bilirubin metabolism; G47.00 Insomnia, unspecified; Z91.199 Patient's noncompliance with other medical treatment and regimen due to unspecified reason; B96.3 Hemophilus influenzae [H. influenzae] as the cause of diseases classified elsewhere
CPT/HCPCS: 36415; 71046; 74177; 80053; 82948; 83690; 83735; 84100; 85025; 85027; 87040; 87070; 87077; 87205; 87420; 87804; 87811; 94640; 94761; 96365; 96367; 96368; 96372; 96375; 96376; 99285; 99406; G0378; J0456; J0713; J1171; J1650; J2405; J2919; J3373; J7512; Q9967

== ENCOUNTER 2025-04-05 11:20 | Emergency (ER) | payer MEDICARE, MEDICAID, SELFPAY ==
--- OUTSIDE RECORDS SUMMARY | 2024-03-24 05:00 | XMS_ITS ---
Author Organization [facility] vices Address [address] [place] [id number] Care Team Providers Care Chemical Plant Operator Name Role Phone Naun Arora Primary Care Provider [phone] REASON FOR VISIT Wellness Social History Sex Assigned At : Social History Observation Description Sex Assigned At Male Encounters Encounter Location Date Provider Diagnosis [place] [address] [facility] [place] [address] 03/24/2024 Naun Arora Plan Of Treatment No Information Progress Notes * Antoinette GALVEZOB:1990 ([age] yo M)Acc No.[id number]:03/24/2024 Medical Note Patient: Luis VALENZUELA :Alberto Underwood NP-CDOB:1990???Age:33 Y ???Sex:MaleDate:03/24/2024hone:[phone]:[id number] Subjective: * Chief Complaints: * 1 . Wellness. * Medical History: Objective: * Vitals: Assessment: Plan: * Treatment: * Billing Information: * Visit Code: * Procedure Codes: * Electronic signature of Naun Arora NP on 04/05/2025 at 11:31 AM ESTSign off status: Pending * Provider: NADEEN Wheatley Date: Generated for Printing/Faxing/eTransmitting on:?04/05/2025 11:31 AM EST
--- OUTSIDE RECORDS SUMMARY | 2024-05-19 05:00 | XMS_ITS ---
Author Organization [facility] [place] Address [address] [place] [address] Care Team Providers Care Leak Hunter Name Role Phone Neetu Del Toro Primary Care Provider REASON FOR VISIT TCM [facility] Encounters Encounter Location Date Provider Diagnosis [address] [address] 05/19/2024 Neetu Del Toro Plan Of Treatment Next Appt Details Provider Name:Neetu nickerson, 06/04/2025 01:00:00 PM, [address] [place], [address], Progress Notes * Luis GALVEZ TDOB:1990 (34 yo M)Acc No.[id number]:05/19/2024 UNLOCKED PROGRESS NOTE Progress Note Patient: Luis VALENZUELA :?Neetu Del Toro ([facility]), CNPDOB:1990 ???Age:33 Y???Sex:MaleDate:4Phone:[phone]:[address] [id number] Subjective: * Chief Complaints: * 1 . TCM [facility]. * Medical History: Objective: * Vitals: Assessment: Plan: * Treatment: * * Electronic signature of Neetu Del Toro NP, SKIN INSTALLER.AUDIO TAPE LIBRARIAN.[id number] on 04/05/2025 at 11:31 AM ESTSign off status: PendingVisit Status:?CANC (Cancelled) * Provider: Bruce Del Toro ([facility]), AUDIO TAPE LIBRARIAN Date: 07/20/2023 Generated for Printing/Faxing/eTransmitting on:?04/05/2025 11:31 AM EST
--- OUTSIDE RECORDS SUMMARY | 2024-08-04 05:30 | XMS_ITS ---
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 [employer] Name Role Phone Neetu Del Toro Primary Care Provider [phone] REASON FOR VISIT fever body chills Encounters Encounter Location Date Provider Diagnosis [facility] [address] [place] [phone] 08/04/2024 Neetu Del Toro Plan Of Treatment Next Appt Details Provider Name:Neetu nickerson, 06/04/2025 01:00:00 PM, [address] [place] [address], [phone], Progress Notes * Luis GALVEZ TDOB:1990 (34 yo M)Acc No.[id number]:08/04/2024 UNLOCKED PROGRESS NOTE Progress Note Patient: Luis VALENZUELA :?Neetu Del Toro ([facility]), CNPDOB:1990 ???Age:33 Y???Sex:MaleDate:08/04/2024Phone:[phone]:[address] [place] [phone] Subjective: * Chief Complaints: * 1 . Fever body chills. * Medical History: Objective: * Vitals: Assessment: Plan: * Treatment: * * Electronic signature of Neetu Del Toro NP, GARMENT WORKER.SCHOOL CROSSING [id number] on 04/05/2025 at 11:32 AM ESTSign off status: PendingVisit Status:?CANC (Cancelled) * Provider: Bruce Del Toro ([facility]), SCHOOL CROSSING GUARD Date: 0 08/04/2024 Generated for Printing/Faxing/eTransmitting on:?04/05/2025 11:32 AM EST
--- OUTSIDE RECORDS SUMMARY | 2025-01-08 08:30 | XMS_ITS ---
Author Organization [facility] [place] Address [address] [place] [address] Care Team Providers Care Personal Lines Underwriter Name Role Phone Neetu Del Toro Primary Care Provider REASON FOR VISIT multiple issues Encounters Encounter Location Date Provider Diagnosis [address] [address] 01/08/2025 Neetu Del Toro Plan Of Treatment Next Appt Details Provider Name:Neeut nickerson, 06/04/2025 01:00:00 PM, [address] [place] [address], [phone], Progress Notes * Luis GALVEZ TDOB:1990 (34 yo M)Acc No.[id number]:01/08/2025 UNLOCKED PROGRESS NOTE Progress Note Patient: Luis VALENZUELA :?Neetu Del Toro ([facility]), CNPDOB:1990 ???Age:34 Y???Sex:MaleDate:01/08/2025Phone:[phone]:[address] [place] [id number] Subjective: * Chief Complaints: * 1 . Multiple issues. * Medical History: Objective: * Vitals: Assessment: Plan: * Treatment: * * Electronic signature of Neetu Del Toro NP, WASTE TREATMENT OPERATOR.MANAGER OB.[id number] on 04/05/2025 at 11:32 AM ESTSign off status: PendingVisit Status:?N/S N/C (No Show/No Charge) * Provider: Bruce Del Toro ([facility]), MANAGER OB Date: 0 01/08/2025 Generated for Printing/Faxing/eTransmitting on:?04/05/2025 11:32 AM EST
--- OUTSIDE RECORDS SUMMARY | 2025-02-27 08:30 | XMS_ITS ---
Author Organization [facility] in [place] Address [address] [place] [address] Care Team Providers Care Tandem Mill Roller Name Role Phone Neetu Del Toro Primary Care Provider REASON FOR VISIT 1 mo f/u Encounters Encounter Location Date Provider Diagnosis [facility] [address] [place] [phone] 02/27/2025 Neetu Del Toro Plan Of Treatment Next Appt Details Provider Name:Neetu nickerson, 06/04/2025 01:00:00 PM, [address] [place] [address], [phone], Progress Notes * Luis GALVEZ TDOB:1990 (34 yo M)Acc No.[id number]:02/27/2025 UNLOCKED PROGRESS NOTE Progress Note Patient: Luis VALENZUELA :?Neetu Del Toro ([facility]), CNPDOB:1990 ???Age:34 Y???Sex:MaleDate:02/27/2025Phone:[phone]:[address] [place] [id number] Subjective: * Chief Complaints: * 1 . 1 mo f/u. * Medical History: Objective: * Vitals: Assessment: Plan: * Treatment: * * Electronic signature of Neetu Del Toro NP, [email or web address] on 04/05/2025 at 11:32 AM ESTSign off status: PendingVisit Status:?N/S N/C (No Show/No Charge) * Provider: Bruce Del Toro ([facility]), RETOUCHING OPERATOR Date: Generated for Printing/Faxing/eTransmitting on:?04/05/2025 11:32 AM EST
[2025-04-05 11:23] VITALS: BP 108/81; PULSE 84; TEMP 36.7; O2SAT 96; BMI 22.3
[2025-04-05 11:32] VITALS: O2SAT 97
--- OUTSIDE RECORDS SUMMARY | 2025-04-05 11:32 | XMS_ITS | Clinical Summary ---
Author Organization [facility] Address [address] [place] [address] Care Team Providers Care Sales Executive Insurance Name Role Phone Jay Avalos MD, Christopher Edward MD Primary Care Pro vider Allergies No known active allergies Medications MedicationSigDispense QuantityRefillsLast FilledStart DateEnd DateStatus Nebulizer and Compressor For Neb rachel 1 Device as needed. Use as directed. 1 Device 09/08/2016Active albuterol HFA (PROVENTIL HFA, VENTOLIN HFA) 90 mcg/actuation inhaler Inhale 2 puffs as instructed every 4 hours as needed for wheezing/shortness of breath.Active hydrOXYzine pamoate (VISTARIL) 25 mg capsule Take 25 mg by mouth two times a day. AnxietyActive ipratropium-albuterol (DUONEB) 0.5 mg-3 mg(2.5 mg base)/3 mL nebu Inhale 3 mL as instructed four times daily. [address] (PROTONIX) 40 mg tablet Take 1 tablet by mouth daily at 6 am. 30 tablet 3:56 PM EDT/ctive fluticasone-salmeterol HFA (ADVAIR) 230-21 mcg/actuation inhaler Inhale 2 puffs as instructed two times a day.5Active Active Problems Patient Care Coordination No te Formatting of this note migh t be different from the original. 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 OSH transfer from [facility] where he presented with recurrent fever and SOB. Recent admission 11/13-11/16 for aspiration pneumonia, growing jacome-sensitive pseudomonas, discharged on oral Cipro and inhaled Tobramycin. Per his room mate Haja [phone] the patient never filledhis prescriptions. MICU Summary: 11/30: Admitted to MICU 12/01: Holding transfer to [facility] with borderline respiratory function. Remains on 3 L NC, continuing tocough. Asking us not to update parents on admission, spokesperson is Haja [phone], room mate. No HCPOA. 12/02: Now on room air, feeling better. The patient has confirmed that he started smoking again and that he never filled his prescriptions from the last admission. He had also forgotten about the planned surgical consult set up at the last discharge. Plan: ?? Transfer to primary pulmonary service ?? He will need surgical appointment for evaluation of esophageal procedure. ?? Discussed quitting smoking, and he says he is going to quit. ?? He knows he needs to continue the antibiotics as directed. ?? He needs a HCPOA, which he would like to be his roommate, Haja. Paperwork needs to be completed. ProblemNoted DateDiagnosed VvvmCzmagmcisvjw52/04/2025Shortness of breath 12/14/2024bnormal CT of the chest12/14/2024Ground glass opacity present on imaging of lung12/14/2024LRTI (lower respiratory tract infection)12/14/2024 Tobacco abuse12/14/2024Tobacco abuse yncmqwkfgl72/20/2025History of illicit drug use12/14/2024Marijuana abuse12/14/2024MRSA (methicillin resistant staph aureus) culture /20/2025History of repair of TEF12/14/2024ute asthma qmopehkqdonb94/20/2025Acute respiratory failure with kxhkztc3012/13/2024 DISPOSITION AND FOLLOW-UP12/01/2016 Overview (12/02/2016): - Stable for transfer to Primary Pulmonary. - Patient is estranged from his parents. His spokesperson is Haja Nguyen, room- mate, .Patient views Haja as an older brother. No designated HCPOA. This will need to be resolved for future decision-making given the severity of underlying lung disease. Patient is thinking about appointing Haja as HCPOA. - Patient may need home health visits to follow up on adherence to medical regime. He may have beendrinking the mucomyst liquid, he stated he drank it and said it tasted bad. When we asked about nebulization, he said oh yes, I put it in there. - Discussed with MICU staff. 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 GERD s/p fundoplications at 6 weeks of age and re-do 2001. On protonix 20 mg??BID at home -Manometry 10/31/16:??LES basal mean pressure 21.8, IRP 10.9, 9/9 swallows failed, absent peristalsisper chicago classification v3.0 -Esophagogram: one silent aspiration episode and reflux -EGD no esophagitis, normal fundoplication - Absent contractibility is likely secondary to his tracheo-esophageal fistula and has had poor esophageal motility since childhood. ? PLAN -Continue maximal PPI therapy -Per GI consult in earlier admission, no effective medical therapy for absent esophageal contractility -Consulted thoracic surgery on options, plan for follow up as outpatient with Dr. Brennan or Dr. Colbert - HOB [facility] 30 degrees. - Advance diet. Aspiration ymypxbidw74/03/2017 Overview (09/30/2016): S/t chronic diminished esophageal motility Sputum culture 2/3 grew Pseudomonas susceptible to cipro, repeat 07/03 grew mixed naye 07/04 CXR - increase [...] Vest treatment Vanc/ zosyn to be started Reflux xrwuaovzbje20/03/2017 Overview (06/30/2016): Hafsa Bronchiectasis with (acute) qibijfyhedhp99/03/2017 Resolved Problems ProblemNoted DateDiagnosed DateResolved DateDiarrhea of presumed infectious luycxz22Aspiration pneumonia of both lungs Overview (12/01/2016): Severe bronchiectasis, FEV1 23%, current smoker 1/2 pack a day, recurrent aspiration pneumonia r/t esophageal dysmotility, multiple admissions in the last several months for same. Follows with Dr. Parker. Most recent admission 11/13 - 11/16, found to have jacome-sensitive pseudomonas. Discharge planwas to go home with PO Cipro and inhaled Tobramycin and to follow up with surgery on options for underlying esophageal dysmotility. Room-mate stating that the discharge prescriptions were not filled.Started on Zosyn and given one dose of Vancomycin upon arrival. No fevers upon admit to MICU, leukocytosis WBC 14.86. Assessment & Plan (12/02/2016 10:39 AM EDT): PLAN: - Continue Zosyn (SD 12/01 - *) - Ordered sputum. - Continue home nebs, add PRN albuterol q 2 hours. - Hold steroids. - Continue hypertonic saline. - Stop Mucomyst. - Continue PPI BID, change back to PO. - Strict HOB to 30 degrees at all times. - Hold nicotine patch for now. Counseled to stop smoking.He appears motivated. - Needs follow up with thoracic surgery, Dr. Brennan or Dr. Colbert as o/p and have manometry studies done. Will need appointment made before discharge, - Complex discharge plan, does not appear to be following through with home management. Problem with insurance and medication knowledge. He has the support of his room mate Haja. Abdominal painSevere persistent hrzxez19 Overview (09/30/2016): Albuterol q4h wa + q4h prn RT c/s Vest therapy Added symbicort again Tracheoesophageal fistula, dlcvcxowxw56 Overview (07/05/2016): No current TEF per barium swallow H/o clayton fundoplication x2, most recent 15 yrs ago. 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 He has been hospitalized with aspiration 7 times in the past 5 months. He was transferred to [facility] 07/04. GI workup included barium swallow, emptying studies, EGD. Manometry is scheduled outpatient per GI notes. Alcohol abuse, mqltwgtmrmw89Alcohol-induced acute pancreatitis Immunizations ImmunizationAdministration DatesNext Dueinfluenza (IIV3) vaccine, age 6 mo - 64 yr, trivalent (AFLURIA, FLULAVAL, FLUVIRIN, FLUZONE)03/24/2016pneumococcal conjugate (PCV13) vaccine, 13 valent (PREVNAR 13)03/02/2016pneumococcal polysaccharide (PPV23) vaccine, 23 valent (PNEUMOVAX 23)11/10/2016 Family History Medical HistoryRelationCommentsDiabetesMotherRelationStatusCommentsMother Social History Tobacco UseTypesPacks/DayYears UsedDateSmoking Tobacco: FormerCigarettes0.57 03/12/2009 - 03/12/2016 Tobacco Cessation:Counseling Given: Not Answered Alcohol UseStandard Drinks/WeekCommentsNot Mkzutfrif30 (1 standard drink = 0.6 oz pure alcohol)12 beers per day for 3 yearsAH UtilitiesAnswerDate RecordedIn the past 12 months has the [place], gas, oil, or water [employer] threatened to shut off services in your home?No12/25/2024Hunger Vital SignAnswerDate Recorded Within the past 12 months, you worried that your food would run out before you got the money to buymore.Never true12/25/2024Within the past 12 months, the food you bought just didn't last and you didn't have money to get more.Never true 12/25/2024PRAPARE - TransportationAnswerDate RecordedIn the past 12 months, has lack of transportation kept you from medical appointments or from getting medications?No12/25/2024In the past 12 months, has lack of transportation kept you from meetings, work, or from getting things needed for daily living?No 12/25/2024Housing Stability Vital SignAnswerDate RecordedIn the last 12 months, was there a time when you were not able to pay the mortgage or rent on time?No 12/25/2024Number of Times Moved in the Last YearNot on file12/25/2024t any time in the past 12 months, were you homeless or living in a prison (including now)? No12/25/2024rea Deprivation IndexAnswerDate RecordedNational Score (1-100), lower number is lower emeo773612/14/2024State Score (1-10), lower number is lower otvc458212/14/2024Data from: https://www.neighborhoodatlas.medicine.[facility].edu/. Last address used for y[address]12/14/2024Sex and Gender InformationValueDate RecordedSex Assigned at BirthNot on fileLegal SexMale 06/21/2016 3:13 PM ESTGender IdentityNot on fileSexual OrientationNot on file Last Filed Vital Signs Vital SignReadingTime TakenCommentsBlood Mzdzrsxi237/8408 1:26 PM EDT Dirxz120112/31/2024 1:36 PM CLEStfxqfqcntj62.5 ??C (97.7 ??F)12/31/2024 10:36 AM EDTRespiratory Pxsw3210 1:36 PM EDTOxygen Dzptepqmdt42%12/31/2024 1:36 PM EDTInhaled Oxygen Concentration--Ezcrvt79.8 kg (123 lb)12/31/2024 10:36 AM UCIXgyrml585.5 cm (5' 2 )12/31/2024 10:36 AM EDTBody Mass Index22.508 10:36 AM EDT Plan of Treatment Health MaintenanceDue DateLast DoneCommentsAnnual PCP Team Chronic Disease Visit 2008nxiety Watczvlsp35/03/2009Depression Vvahzovtt39/03/2009Hepatitis C Wgtpovsoi31/03/2009HPV Vaccine (1 - 3-dose SCDM series)2017[facility] Wellness Visit05/28/2024ovid-19 Vaccine ( season) 2025Influenza Vaccine (#1)5106/02/2018, 02/12/2017, 03/24/2016, Additional history existsDTaP,Tdap,Td Vaccine (3 - Td or Tdap)03/31/2034 03/31/2024, 04/14/2022Hepatitis B WivrhbqZzuhvzzve27/29/2008, 04/26/2007, 03/26/2007HIV GmvnpupvnLjanbjdeb72/22/2017 Goals GoalPatient Goal TypeAssociated ProblemsRecent ProgressPatient-Stated?Author Blood Pressure < 140/90 Blood Erhtcaak583/84(12/31/2024 1:26 PM EDT)Leila Wheat APRN.POWER SUPERINTENDENT Procedures Procedure NamePriorityDate/TimeAssociated DiagnosisCommentsHIV 1/2 COMBO WITH REFLEX TO WWAJNRNEYQYIHCLNctdoln45/22/2017 10:49 AM EDT from Last 3 Months or Most Recently Relevant to Health Maintenance Results * HIV 1,2 COMBO (AG/AB) (10/16/2016 10:49 AM EDT)ComponentValueRef RangeTest MethodAnalysis TimePerformed AtPathologist SignatureHIV 12 Combo (Ag/Ab)Non ReactiveNon Swceqqkm09/22/2017 8:58 PM EDTCCHILDREN'S H[facility] FOR [facility] Comment: (NOTE) HIV Information: ??[place] Rev. Code 3701.243(E): This information has been disclosed to you from confidential records protected from disclosure by state law. You shall make no further disclosure of this information without the specific, written, and informed release of the individual to whom it pertains, or as otherwise permitted by state law. A general authorization for the release of medical or other information is not sufficient for the purpose of the release of HIV test results or diagnoses. Specimen (Source)Anatomical Location / LateralityCollection Method / Volume Collection TimeReceived TimeBlood specimen (specimen)BLOOD SPECIMEN / Unknown 10/16/2016 10:49 AM EDT10/16/2016 11:04 AM EDT Narrative Authorizing ProviderResult TypeResult StatusDharmesh (Hist) Giovana POWELL LABORATORYFinal ResultPerforming OrganizationAddressCity/State/ZIP CodePhone Number [facility] [address] [place] [address] from Last 3 Months or Most Recently Relevant to Health Maintenance Insurance Advance Directives * Full Code (Latest Code Status on File) Date ActivatedDate InactivatedComments12/24/2024 8:55 PM12/29/2024 8:38 PMQuestion AnswerCommentsFull Code Order Discussed With:* Patient * Full Code Date ActivatedDate InactivatedComments12/13/2024 7:13 PM12/14/2024 8:35 PMQuestion AnswerCommentsFull Code Order Discussed With:* Patient Care Teams Team MemberRelationshipSpecialtyStart DateEnd Date Nando Fuller MD [address] [address] PCP - GeneralPulmonary and Critical Care Medicine12/13/24 Jay Avalos MD Gastroenterology07/27/16
--- OUTSIDE RECORDS SUMMARY | 2025-04-05 11:32 | XMS_ITS | Clinical Summary ---
Author Organization [facility] Address [address] [facility] [place] [address] Phone Care Team Providers Care Business Continuity Planner Name Role Phone Unavailable Primary Care Provider Unavailabl e Social History Tobacco UseTypesPacks/DayYears UsedDateSmoking Tobacco: Never AssessedSex and Gender InformationValueDate RecordedSex Assigned at BirthNot on fileLegal Sex Male04/22/2022 8:07 AM ESTGender IdentityNot on fileSexual OrientationNot on file Plan of Treatment Not on file
--- OUTSIDE RECORDS SUMMARY | 2025-04-05 11:32 | XMS_ITS | Clinical Summary ---
Author Organization [facility] Address [address] [place] [address] Care Team Providers Care Records Management Manager Name Role Phone Neetu Del Toro CHANDRIKA Primary Care Provider Allergies No known active allergies Medications MedicationSigDispense QuantityRefillsLast FilledStart DateEnd DateStatus albuterol 90 mcg/actuation inhaler INHALE 2 PUFFS INTO THE LUNGS EVERY 6 HOURS NEEDED FOR 90 DAYS07/11/2023 Active traZODone (Desyrel) 50 mg tablet TAKE 1 TABLET BY MOUTH ONCE A DAY AT BEDTIME JXSQPQ5809/12/2023ctive escitalopram (Lexapro) 10 mg tablet TAKE 1/2 TAB BY MOUTH DAILY FOR FIRST WEEK,THEN INCREASE TO 1 TABLET BY MOUTH DAILY09/12/2023ctive nebulizer and compressor device 1 Device.09/08/2016Active dexlansoprazole (Dexilant) [address] capsule Take 1 capsule by mouth in the morning.04/03/2023ctive Active Problems ProblemNoted DateDiagnosed DateAcute exacerbation of chronic obstructive pulmonary bpnitbq0801/21/2024lcohol use vvrpzpfe98/26/5919Vlybwsv56/26/2024 Aspiration into lower respiratory tract01/21/2024cute on chronic respiratory failure with lnhncycrq00/26/2024losed head fnnplz6001/21/2024oronavirus dpizpiszm46/26/5607Yrjhm68/26/2024History of evjkqpvcbfwqne69/26/2024Influenza A 01/21/2024Moderate persistent asthma, lvkmrmeiurzdy48/26/2024arainfluenza 01/21/2024olysubstance ddpopoxvjo54/26/2024ossible exposure to STD01/21/2024 Tracheo-esophageal bsbnawx6201/21/2024Viral URI01/21/20245491Mybscxdoker60/30/2024 Dyspnea on gepmiqyp92/30/2024bnormal EKG009/25/20232943Qwmrawyvlquf71/30/2024Sleep apnea09/25/2023ronchiectasis without yduhbacwtgql50/30/2024Tobacco abuse 09/25/2023lcohol abuse09/25/2023peristalsis of ufeinwlcr81/08/2017 Overview (01/21/2024): 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 GERD s/p fundoplications at 6 weeks of age and re-do 2001. On protonix 20 mg BID at home -Manometry 10/31/16: LES basal mean pressure 21.8, IRP 10.9, 9/ swallows failed, absent peristalsis per chicago classification [...] with Dr. Brennan or Dr. Colbert - [facility] 30 degrees. - Advance diet. Aspiration nfuhmvxwt00/03/2017 Overview (01/21/2024): S/t chronic diminished esophageal motility Sputum culture 2 grew Pseudomonas susceptible to cipro, repeat 07/03 [...] zosyn to be started Family History Medical HistoryRelationNameCommentsDiabetesMotherKimHeart failurePaternal Grandfatheropen heartPaternal GrandfatherAtrial fibrillationPaternal Grandmother DiabetesPaternal GrandmotherHeart failurePaternal GrandmotherRelationNameStatus CommentsMotherKimAlivePaternal GrandfatherDeceasedPaternal GrandmotherDeceased Social History Tobacco UseTypesPacks/DayYears UsedDateSmoking Tobacco: GochrmHfxxeebqcs736 06/28/2013 - 06/28/2023Smokeless Tobacco: CurrentChewAlcohol UseStandard Drinks/WeekCommentsNever0 (1 standard drink = 0.6 oz pure alcohol)quit 2 weeks agoUT Safety & EnvironmentAnswerDate RecordedFear of Current or Ex-PartnerNot on file09/19/2023Emotionally AbusedNot on file09/19/2023hysically AbusedNot on file09/19/2023Sexually AbusedNot on file09/19/2023hysically or Sexually Abused Not on file09/19/2023Sex and Gender InformationValueDate RecordedSex Assigned at BirthNot on fileLegal FfkSabv1209/19/2023 1:06 PM EDTGender IdentityNot on file Sexual OrientationNot on file Last Filed Vital Signs Vital SignReadingTime TakenCommentsBlood Xchxfuco560/7804 1:42 PM EDT Hygtl961709/25/2023 1:42 PM EDTTemperature--Respiratory Mwan927009/25/2023 1:42 PM EDTOxygen Snhvfocbdr02%09/25/2023 1:42 PM EDTInhaled Oxygen Concentration-- Roolwb73.9 kg (118 lb 12.8 oz)09/25/2023 1:42 PM WAUMklpas644 cm (5' 3 ) 09/25/2023 1:42 PM EDTBody Mass Index21.04009/25/2023 1:42 PM EDT Plan of Treatment Health MaintenanceDue DateLast DoneCommentsMedicare Annual Wellness (AWV) 1990Depression Sntcrhbpr65/03/2003Varicella Vaccines (1 of 2 - 13+ 2-dose series)08/29/2003Hepatitis B Vaccines (1 of 3 - 19+ 3-dose series)2009HPV Vaccines (1 - 3-dose SCDM series)2017COVID-19 Vaccine (1 - 2024- season) 2025Influenza Vaccine (#1)510/Adult Csbfjef5604/14/2032 2Pneumococcal Vaccine: Pediatrics (0 to 5 Years) and At-Risk Patients (6 to 64 Years) (3 of 3 - PCV20 or PCV21)/, 03/02/2016Zoster Vaccines (1 of 2)2040HIB VaccinesAged OutNo longer eligible based on patient's age to complete this topicIPV VaccinesAged OutNo longer eligible based on patient's age to complete this topicMeningococcal B VaccineAged OutNo longer eligible based on patient's age to complete this topicMeningococcal VaccineAged OutNo longer eligible based on patient's age to complete this topicRotavirus VaccinesAged OutNo longer eligible based on patient's age to complete this topic Insurance Care Teams Team MemberRelationshipSpecialtyStart DateEnd Date Neetu Del Toro CNP [address] [place] [address], [place] [address] PCP - GeneralFamily Medicine09/24/23
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
--- OUTSIDE RECORDS SUMMARY | 2025-04-05 11:32 | XMS_ITS | Clinical Summary ---
Author Organization [facility] Address [address] [place] [address] Care Team Providers Care Cogeneration Technician Name Role Phone Unavailable Primary Care Provider Unavailabl e Social History Tobacco UseTypesPacks/DayYears UsedDateSmoking Tobacco: Never AssessedSex and Gender InformationValueDate RecordedSex Assigned at BirthNot on fileLegal Sex Male08/09/2022 6:58 PM EDTGender IdentityNot on fileSexual OrientationNot on file Plan of Treatment Not on file Insurance * Guarantor: Luis Solomoncoronen TypeRelation to PatientDate of BirthPhone Billing AddressPersonal/EmhiupFkzy62/03/1991 [address] [place] [address]
--- OUTSIDE RECORDS SUMMARY | 2025-04-05 11:32 | XMS_ITS | Patient Health Record ---
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 Robert Lang Primary Care Provider [phone] Willian Zee Wolff Unavailable [phone] Veronique Johnson Unavailable [phone] Reason For Referral No Information Medications Medication SIG (Take, Route, Frequency, Duration) Notes Start Date End Date Status Ibuprofen 800 MG Tablet 1 tablet with fo od or milk as needed Orally Three times a day 10/12/2020ctiveIbuprofen 800 MG Tablet1 tablet with food or milk as needed Orally Three times a day09/29/2020ctive Encounters Encounter Location Date Provider Diagnosis [facility] [address] [place] [address] 02/23/2025 Robert Lang [facility] [place] [address] [facility] with abnormal findings Z01.21 ; Other dental procedure status Z98.818 ; Dental caries on pit and fissure surface penetrating into dentin K02.52 ; Partialloss of teeth, unspecified cause, class I K08.401 and Acute gingivitis, plaque induced K05.00 [facility] [place] [address] Zee WolffChronic gingivitis, plaque induced K05.10 Assessments Encounter Date Diagnosis (ICD Code) Assessment Notes Treatment Notes Treatment Clinical Notes Section Notes 02/19/2025 Encounter for dental examination and cleaning with abnormal findings (ICD-10 - Z01.21) 5Chronic gingivitis, plaque induced (ICD-10 - K05.10)02/19/2025Other dental procedure status (ICD-10 - Z98.818)02/19/2025Dental caries on pit and fissure surface penetrating into dentin (ICD-10 - K02.52)02/19/2025Partial loss of teeth, unspecified cause, class I (ICD-10 - K08.401)02/19/2025ute gingivitis, plaque induced (ICD-10 - K05.00) Plan Of Treatment Next Appt Details Provider Name:Daphne Hewittjennifer, 04/07/2025 01:45:00 PM, [address], [place], [address], Provider Name:Veronique Johnson, 09/2024 11:00:00 AM, [address], [place], [address], Provider Name:Veronique Johnson, 04/2025 11:15:00 AM, [address], [place], [address], Provider Name:Zee Wolff , 10/02/2025 02:00:00 PM, [address], [place], [address], Insurance Providers Payer Name Payer Address Payer Phone Subscriber Number Group Number Insured Name Patient Relationship to Insured Coverage Start Date Coverage End Date [facility] [place] [address] [place] [address] [phone] [id number] LENNYElinor - patient is the [id number] 2022MEDICAID SEC TO [employer] AD[address] [place] [id number], TROYSelf - patient is the [id number] 2022[employer] MED[address] [address] [place] [address] [id number], TROYSbette - patient is the [id number] 2020 DENTAL MED[place]ID [place] [address] [place] [id number] ILA GALVEZEMILbette - patient is the [id number] 2020
--- NOTE | 2025-04-05 11:33 | XR_ITS ---
[facility] [place] [id number] Patient Name: FRNACIS GALVEZ MRN: [id number] date: 1990 Sex: M Assigned Patient Location: ED.MAIN Current Patient Location: ED.MAIN Accession/Order Number: [id number] Exam Date: 04/05/2025 12:05 Report Date: 04/05/2025 12:48 At the request of: DESTINEY LARSEN DO Procedure: XR chest 2V XR chest 2V 04/05/2025 12:12 PM SIGNS AND SYMPTOMS: ^r/o PNA, h/o brochiectasis PROTOCOL: Frontal and lateral graphs of the chest COMPARISON: 02/24/2025 FINDINGS: The trachea is midline. The heart and mediastinal structures are within normal limits. Small pleural effusions are noted, left greater than right similar to the prior exam. Perihilar vascular prominence and airspace opacities are redemonstrated. These appear to be chronic. There is chronic scarring laterally along the right pleural surface. The bony thorax is intact. XR/XR chest 2V IMPRESSION: No acute cardiopulmonary pathology. Small bilateral pleural effusions are redemonstrated with chronic interstitial prominence and perihilar airspace opacities. Impression dictated by: Ashish Candelario M.D. 04/05/2025 12:48 PM Dictation Location: [place] [address] Electronically authenticated by: [id number] Date: 04/05/2025 12:48
--- OUTSIDE RECORDS SUMMARY | 2025-04-05 11:34 | XMS_ITS | Patient Health Record ---
Author Organization [facility] in [place] Address [address] [place] [address] Care Team Providers Care General Assignment Reporter Name Role Phone Neetu Barboza Primary Care Provider James Elkins [phone] Allergies Allergen (clinical drug ingredient) Drug/Non Drug Allergy documented on EMR Reaction Allergy Type Onset Date Status naproxen Naproxen unknown Drug Allergy ActivePenicillinUnknownDrug AllergyActive Results Component Value Reference Range Notes CBC AUTO DIFF Reviewed date:05/08/2024 09:48:13 AM Interpretation: Performing Lab: Notes/Report: [facility] , White Blood Count 16.3 4.0-11.0 10 3/uL Red Blood Count5.174.70-6.10 10 6/kWIzvudvuxql92.514.0-18.0 g/qERiyknppovs95.5 42.0-54.0 %Mean Corpuscular Yrqnby13.980.0-94.0 fLMean Corpuscular Hemoglobin 30.025.9-34.0 pgMean Corpuscular HGB Conc33.329.9-35.2 g/dLRed Cell Distribution Width12.511.0-15.0 %Platelet Tnrkg981746-575 10 3/uLMean Platelet Qdwxzj74.69.5- 13.5 fLNeutrophils Percent Auto82.243.0-75.0 %Lymphocytes Percent Auto9.220.5- 60.0 %Monocytes Percent Auto7.01.7-12.0 %Eosinophils Percent Auto0.60.9-7.0 % Basophils Percent Auto0.70.2-2.0 %Immature Granulocytes Pct Auto0.30.0-0.5 % Neutrophils Absolute Auto13.41.4-6.5 10 3/uLLymphocytes Absolute Auto1.51.2-3.8 10 3/uLMonocytes Absolute Auto1.10.3-0.8 10 3/uLEosinophils Absolute Auto0.10.0- 0.7 10 3/uLBasophils Absolute Auto0.10.0-0.1 10 3/uLImmature Granulocytes Abs Auto0.050.00-0.03 10 3/uLPerforming Lab:see noteML - [facility] LBECG 12 lead Reviewed date:05/13/2024 08:46:43 AM Interpretation: Performing Lab: Notes/Report: Source Facility: [facility]-[address] [place] [address] [place] [address] Electrocardiograph Report Signed Patient: LUIS SOLOMON MR#: [id number] : 1990 Acct:[id number] Age/Sex: 33 / M ADM Date: 05/08/24 Loc: MS 213-[address]: Nicola Wyatt D.O. 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 Signed By: 05/13/24 0651 DD/ 0752 TD/TT: Train Conductor:White Blood Cells Reviewed date:05/12/2024 06:14:45 PM Interpretation: Performing Lab: Notes/Report: [facility] ,White Blood CellsSee Below For Report White Blood Cells White Blood CellsNone seen White Blood Cells Performing Lab:see note - [facility] LBEpithelial Cells Reviewed date:05/12/2024 06:14:45 PM Interpretation: Performing Lab: Notes/Report: [facility] ,Epithelial CellsSee Below For Report Epithelial Cells None seen Performing Lab:see note - [facility] LBResult 1 Reviewed date:05/12/2024 06:14:45 PM Interpretation: Performing Lab: Notes/Report: [facility] ,Result 1See Below For Report Result 1 No organisms seen Performing Lab:see noteLC - [facility] LBResult 2 Reviewed date:05/12/2024 06:14:45 PM Interpretation: Performing Lab: Notes/Report: [facility] ,Result 2See Below For Report Result 2 INVESTMENT TRADER Performing Lab:see note - [facility] LBResult 3 Reviewed date:05/12/2024 06:14:45 PM Interpretation: Performing Lab: Notes/Report: [facility] ,Result 3See Below For Report Result 3 INVESTMENT TRADER Performing Lab:see noteLC - [facility] LBResult 4 Reviewed date:05/12/2024 06:14:45 PM Interpretation: Performing Lab: Notes/Report: [facility] ,Result 4See Below For Report Result 4 INVESTMENT TRADER Performing Lab:see note - [facility] LBGram Stain Evaluation Reviewed date:05/12/2024 06:14:45 PM Interpretation: Performing Lab: Notes/Report: [facility] ,Gram Stain EvaluationSee Below For Report Gram Stain Evaluation This specimen is of good quality and is acceptable for routine Gram Stain Evaluationbacterial culture. Gram Stain Evaluation This specimen is of good quality and is acceptable for routine Performing Lab:see note - [facility] LBLower Respiratory Culture Reviewed date:05/12/2024 06:14:45 PM Interpretation: Performing Lab: Notes/Report: [facility] ,Lower Respiratory CultureSee Below For Report Lower Respiratory Culture WILL FOLLOW Lower Respiratory CultureRoutine respiratory naye Lower Respiratory Culture WILL FOLLOW Lower Respiratory CulturePerformed at: - [facility] [place] Lower Respiratory Culture WILL FOLLOW Lower Respiratory [address] [place], [place] [id number] Lower Respiratory Culture WILL FOLLOW Lower Respiratory CultureLab Director: Yonny Pa PhD, Phone: [phone] Lower Respiratory Culture WILL FOLLOW Performing Lab:see note LC - [facility] LB SEE 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 INFLUENZA A AND B AG Reviewed date:05/09/2024 01:58:21 PM Interpretation: Performing Lab: Notes/Report: [facility] ,Influenza Virus A AntigenNegative Negative for Flu A protein antigen. Infection due to Flu A cannot be ruled out. Flu A antigen in the sample may be below the detection limit of the test. Influenza Virus B AntigenNegative Negative for Flu B protein antigen. Infection due to Flu B cannot be ruled out. Flu B antigen in the sample may be below the detection limit of the test. Performing Lab:see noteML - [facility] POUQYY-DiL-7 Ag* Reviewed date:05/09/2024 01:58:21 PM Interpretation: Performing Lab: Notes/Report: [facility] ,SARS-CoV-2 AgNEGATIVENEGATIVE This test has not been FDA cleared [...] terminated or authorization is revoked sooner. Performing Lab:see noteML - [facility] LBPROF CHEM 8 (BAS METB) Reviewed date:05/11/2024 07:48:02 PM Interpretation: Performing Lab: Notes/Report: [facility] ,Htjsob259636-885 mmol/LPotassium4.03.5-5.1 mmol/DSzxfbakn42661-338 mmol/LCarbon Iyqxrct92.521.0-32.0 mmol/LAnion Gap13.5Imlkehg27685-180 mg/dLBlood Urea Ogbiiveg08.07.0-18.0 mg/dLCreatinine1.080.70-1.30 mg/dLEstimated GFR ( Cinthia>60>=60 mL/min/1.73m 2Estimated GFR (Non- Sabine>60>=60 mL/min/1.73m 2BUN Creatinine Ratio15.2Frvwmjp7.78.5-10.1 mg/dLPerforming Lab:see noteML - [facility] LBPROF CHEM 8 (BAS METB) Reviewed date:05/12/2024 02:14:22 PM Interpretation: Performing Lab: Notes/Report: [facility] ,Myiycb893073-182 mmol/LPotassium3.83.5-5.1 mmol/WKadgimyi33875-151 mmol/LCarbon Npytlur58.221.0-32.0 mmol/LAnion Gap15.5Ozaqkij09729-799 mg/dLBlood Urea Hakgvinl34.07.0-18.0 mg/dLCreatinine1.090.70-1.30 mg/dLEstimated GFR ( Cinthia>60>=60 mL/min/1.73m 2Estimated GFR (Non- Sabine>60>=60 mL/min/1.73m 2BUN Creatinine Ratio12.2Gnsxjqe3.08.5-10.1 mg/dLPerforming Lab:see noteML - [facility] LBINFLUENZA A AND B AG Reviewed date:05/13/2024 08:46:42 AM Interpretation: Performing Lab: Notes/Report: [facility] ,Influenza Virus A AntigenNegative Negative for Flu A protein antigen. Infection due to Flu A cannot be ruled out. Flu A antigen in the sample may be below the detection limit of the test. Influenza Virus B AntigenNegative Negative for Flu B protein antigen. Infection due to Flu B cannot be ruled out. Flu B antigen in the sample may be below the detection limit of the test. Performing Lab:see noteML - [facility] EKCDHN-IsX-1 Ag* Reviewed date:05/13/2024 08:46:42 AM Interpretation: Performing Lab: Notes/Report: [facility] ,SARS-CoV-2 AgNEGATIVENEGATIVE This test has not been FDA cleared [...] terminated or authorization is revoked sooner. Performing Lab:see noteML - [facility] LBBNP Reviewed date:05/26/2024 08:18:37 AM Interpretation: Performing Lab: Notes/Report: [facility] ,NT Pro B Type Natriuretic Pept14.0<=450.0 pg/mLPerforming Lab:see noteML - [facility] LBPROF 14(COMP METB) Reviewed date:05/26/2024 08:18:37 AM Interpretation: Performing Lab: Notes/Report: [facility] ,Ehxfas629452-969 mmol/LPotassium4.13.5-5.1 mmol/SHcuhpfcd71423-408 mmol/LCarbon Mhnkjpt82.821.0-32.0 mmol/LAnion Gap9.7Faklohw43956-949 mg/dLBlood Urea Nitrogen 16.07.0-18.0 mg/dLCreatinine1.000.70-1.30 mg/dLEstimated GFR ( Cinthia>60 >=60 mL/min/1.73m 2Estimated GFR (Non- Sabine>60>=60 mL/min/1.73m 2BUN Creatinine Ratio16.4Yrosmfl4.18.5-10.1 mg/dLBilirubin Total0.50.2-1.0 mg/dL Aspartate Amino Luyqzlodbjf9727-74 U/LAlanine Sjwrfepkgvyjofxg6984-22 U/L Alkaline Kqxckxqtdwl4128-007 U/LTotal Protein6.66.4-8.2 g/dLAlbumin Level3.33.4- 5.0 g/dLGlobulin3.3Albumin Globulin Ratio1.0Performing Lab:see noteML - [facility] LBTroponin I High Sensitivity Reviewed date:05/26/2024 08:18:37 AM Interpretation: Performing Lab: Notes/Report: [facility] ,Troponin I High Sensitivity4.64.0-76.1 pg/mL CUT-OFF POINTS HAVE BEEN ESTABLISHED BASED ON THE FOURTH UNIVERSAL DEFINITION OF MYOCARDIAL INFARCTION. THE UPPER REFERENCE LIMIT (URL) OF TROPONIN, DEFINED THE 99TH PERCENTILE OF cTnI DISTRIBUTION IN A REFERENCE POPULATION, HAS BEEN CONFIRMED THE DECISION THRESHOLD FOR [place] DIAGNOSIS. 99TH PERCENTILE = 76.2 PG/ML NOTE: HIGH-SENSITIVITY TROPONIN ASSAY IS NOT INTENDED TO BE USED IN ISOLATION BUT SHOULD BE INTERPRETED IN CONJUNCTION WITH OTHER DIAGNOSTIC AND CLINICAL INFORMATION. Performing Lab:see note - [facility] LBXR chest 1V Reviewed date:05/26/2024 08:18:37 AM Interpretation: Performing Lab: Notes/Report: Source Facility: [facility]-[address] [address] XRay Report Signed Patient: LUIS SOLOMON MR#: [id number] : 1990 Acct:[id number] Age/Sex: 33 / M ADM Date: 05/22/24 Loc: ER Attending Dr: Ordering Physician: Kristina Martinez Date of Service: 05/22/24 Procedure(s): XR chest 1V Accession Number(s): [id number] cc: NEETU BARBOZA ; Kristina Martinez [place] [id number] Patient Name: LUIS SOLOMON MRN: [id number] date: 1990 Sex: M Assigned Patient Location: ER Current Patient Location: ER Accession/Order Number: [id number] Exam Date: 05/22/2024 19:12 Report Date: 05/22/2024 [...] M.D. Signed By: 05/22/242048 DD/ 45 TD/TT: Train Conductor:XR ribs BI min 4V w CXR1V Reviewed date:07/07/2024 08:16:57 AM Interpretation: Performing Lab: Notes/Report: Source Facility: [place] [address] XRay Report Signed Patient: LUIS SOLOMON MR#: [id number] : 1990 Acct:[id number] Age/Sex: 33 / M ADM Date: 07/03/24 Loc: ER Attending Dr: Ordering Physician: Mark Nieto M.D. Date of Service: 07/03/24 Procedure(s): XR ribs BI min 4V w CXR1V Accession Number(s): [id number] cc: NEETU BARBOZA ; Mark Nieto M.D. [place] [address] Patient Name: LUIS SOLOMON MRN: [id number] date: 1990 Sex: M Assigned Patient Location: ED.MAIN Current Patient Location: ER Accession/Order Number: [id number] Exam Date: 07/03/2024 07:02 Report Date: 07/03/2024 [...] Signed By: 07/03/24 0747 DD/ 0745 TD/TT: Train Conductor:XR sternum min 2V Reviewed date:07/07/2024 08:16:57 AM Interpretation: Performing Lab: Notes/Report: Source Facility: [place] [address] [place] [address] XRay Report Signed Patient: LUIS SOLOMON MR#: [id number] : 1990 Acct:[id number] Age/Sex: 33 / M ADM Date: 07/03/24 Loc: ER Attending Dr: Ordering Physician: Mark Nieto M.D. Date of Service: 07/03/24 Procedure(s): XR sternum min 2V Accession Number(s): [id number] cc: NEETU BARBOZA ; Mark Nieto M.D. [place] [id number] Patient Name: LUIS SOLOMON MRN: [id number] date: 1990 Sex: M Assigned Patient Location: ED.MAIN Current Patient Location: ER Accession/Order Number: [id number] Exam Date: 07/03/2024 07:02 Report Date: 07/03/2024 07:37 At the request of: MARK NIETO Procedure: XR sternum min 2V EXAM: XR sternum min 2V HISTORY: fall COMPARISON: None. XR/XR sternum min 2V IMPRESSION: 1. No displaced sternal fracture. Electronically authenticated by: JOSHUA AARON Date: 07/03/2024 07:37 Dictated By: [place] Aaron M.D. Signed By: 07/03/24 0739 DD/ 0737 TD/TT: Train Conductor:INFLUENZA A AND B AG Reviewed date:08/04/2024 10:09:14 AM Interpretation: Performing Lab: Notes/Report: [facility] ,Influenza Virus A AntigenNegative Negative for Flu A protein antigen. Infection due to Flu A cannot be ruled out. Flu A antigen in the sample may be below the detection limit of the test. Influenza Virus B AntigenNegative Negative for Flu B protein antigen. Infection due to Flu B cannot be ruled out. Flu B antigen in the sample may be below the detection limit of the test. Performing Lab:see noteML - [facility] BBPFFN-CuE-3 Ag* Reviewed date:08/04/2024 10:09:14 AM Interpretation: Performing Lab: Notes/Report: [facility] ,SARS-CoV-2 AgNEGATIVENEGATIVE This test has not been FDA cleared [...] terminated or authorization is revoked sooner. Performing Lab:see noteML - [facility] LBCBC AUTO DIFF Reviewed date:08/05/2024 09:15:27 AM Interpretation: Performing Lab: Notes/Report: [facility] ,White Blood Count8.64.0-11.0 10 3/uLRed Blood Count4.944.70-6.10 10 6/uL Nionublgqt95.514.0-18.0 g/qMGgxclolrrk99.442.0-54.0 %Mean Corpuscular Kpdiqz10.8 80.0-94.0 fLMean Corpuscular Darmobskee66.425.9-34.0 pgMean Corpuscular HGB Conc 34.229.9-35.2 g/dLRed Cell Distribution Width13.011.0-15.0 %Platelet Edlhv441 150-450 10 3/uLMean Platelet Iihgrd21.49.5-13.5 fLNeutrophils Percent Auto93.7 43.0-75.0 %Lymphocytes Percent Auto4.120.5-60.0 %Monocytes Percent Auto1.01.7- 12.0 %Eosinophils Percent Auto0.50.9-7.0 %Basophils Percent Auto0.50.2-2.0 % Immature Granulocytes Pct Auto0.20.0-0.5 %Neutrophils Absolute Auto8.01.4-6.5 10 3/uLLymphocytes Absolute Auto0.41.2-3.8 10 3/uLMonocytes Absolute Auto0.10.3-0.8 10 3/uLEosinophils Absolute Auto0.00.0-0.7 10 3/uLBasophils Absolute Auto0.00.0- 0.1 10 3/uLImmature Granulocytes Abs Auto0.020.00-0.03 10 3/uLPerforming Lab:see noteML - [facility] LBINFLUENZA A AND B AG Reviewed date:08/05/2024 09:15:27 AM Interpretation: Performing Lab: Notes/Report: [facility] ,Influenza Virus A AntigenNegative Negative for Flu A protein antigen. Infection due to Flu A cannot be ruled out. Flu A antigen in the sample may be below the detection limit of the test. Influenza Virus B AntigenNegative Negative for Flu B protein antigen. Infection due to Flu B cannot be ruled out. Flu B antigen in the sample may be below the detection limit of the test. Performing Lab:see noteML - [facility] LBMAGNESIUM Reviewed date:08/05/2024 09:15:27 AM Interpretation: Performing Lab: Notes/Report: [facility] ,Magnesium1.91.8-2.4 mg/dLPerforming Lab:see noteML - [facility] LB PROF 14(COMP METB) Reviewed date:08/05/2024 09:15:27 AM Interpretation: Performing Lab: Notes/Report: [facility] ,Mhbgdb525615-712 mmol/LPotassium4.33.5-5.1 mmol/QDkruzzwk82904-105 mmol/LCarbon Kkngjmd79.121.0-32.0 mmol/LAnion Gap15.0Sffhieg17633-943 mg/dLBlood Urea Nitrogen8.07.0-18.0 mg/dLCreatinine1.210.70-1.30 mg/dLEstimated GFR ( Cinthia>60>=60 mL/min/1.73m 2Estimated GFR (Non- Sabine>60>=60 mL/min/1.73m 2BUN Creatinine Ratio6.3Rskbftr7.88.5-10.1 mg/dLBilirubin Total0.40.2-1.0 mg/dL Aspartate Amino Zbsbtvkijoc4853-15 U/LAlanine Lxxxokfekuvadjva755-29 U/LAlkaline Xmbzwhrdsan07615-808 U/LTotal Protein6.86.4-8.2 g/dLAlbumin Level3.43.4-5.0 g/dL Globulin3.4Albumin Globulin Ratio1.0Performing Lab:see noteML - [facility] IINPRG-IaG-4 Ag* Reviewed date:08/05/2024 09:15:27 AM Interpretation: Performing Lab: Notes/Report: [facility] ,SARS-CoV-2 AgNEGATIVENEGATIVE This test has not been FDA cleared [...] terminated or authorization is revoked sooner. Performing Lab:see noteML - [facility] (BAS METB) Reviewed date:08/06/2024 12:45:29 PM Interpretation: Performing Lab: Notes/Report: [facility] ,Uvvhma699530-135 mmol/LPotassium4.13.5-5.1 mmol/DUrvtgwbh35592-453 mmol/LCarbon Hiijkrj71.921.0-32.0 mmol/LAnion Gap14.1Ehgsxhr91753-582 mg/dLBlood Urea Oqjkmjox23.07.0-18.0 mg/dLCreatinine0.980.70-1.30 mg/dLEstimated GFR ( Cinthia>60>=60 mL/min/1.73m 2Estimated GFR (Non- Sabine>60>=60 mL/min/1.73m 2BUN Creatinine Ratio12.3Jngroeg5.78.5-10.1 mg/dLPerforming Lab:see noteML - [facility] LBPROF CHEM 8 (BAS METB) Reviewed date:08/07/2024 06:53:14 PM Interpretation: Performing Lab: Notes/Report: [facility] ,Hnbfkk227953-178 mmol/LPotassium3.93.5-5.1 mmol/NIfyanhpq18888-438 mmol/LCarbon Qkkoyyt87.221.0-32.0 mmol/LAnion Gap11.6Afojpmw42987-981 mg/dLBlood Urea Wspgmybf68.07.0-18.0 mg/dLCreatinine0.900.70-1.30 mg/dLEstimated GFR ( Cinthia>60>=60 mL/min/1.73m 2Estimated GFR (Non- Sabine>60>=60 mL/min/1.73m 2BUN Creatinine Ratio16.8Newubjc4.48.5-10.1 mg/dLPerforming Lab:see note - [facility] LBCBC AUTO DIFF Reviewed date:08/10/2024 03:10:26 PM Interpretation: Performing Lab: Notes/Report: [facility] ,White Blood Count24.74.0-11.0 10 3/uLRed Blood Count5.404.70-6.10 10 6/uL Szczfpcvdn89.714.0-18.0 g/rZWhfnunieox68.542.0-54.0 %Mean Corpuscular Jcvont42.1 80.0-94.0 fLMean Corpuscular Vmnqguhkdr30.125.9-34.0 pgMean Corpuscular HGB Conc 33.829.9-35.2 g/dLRed Cell Distribution Width13.211.0-15.0 %Platelet Numnd658 150-450 10 3/uLMean Platelet Bppfuz70.89.5-13.5 fLPerforming Lab:see note - [facility] LBCBC AUTO DIFF Reviewed date:08/06/2024 10:07:04 AM Interpretation: Performing Lab: Notes/Report: [facility] ,White Blood Count10.94.0-11.0 10 3/uLRed Blood Count4.694.70-6.10 10 6/uL Veszcamong24.614.0-18.0 g/rLWblreszdak95.542.0-54.0 %Mean Corpuscular Icgbta47.4 80.0-94.0 fLMean Corpuscular Nbyuzvkwgk51.025.9-34.0 pgMean Corpuscular HGB Conc 33.629.9-35.2 g/dLRed Cell Distribution Width13.011.0-15.0 %Platelet Ykrsy655 150-450 10 3/uLMean Platelet Zvgztj49.89.5-13.5 fLNeutrophils Percent Auto91.9 43.0-75.0 %Lymphocytes Percent Auto4.620.5-60.0 %Monocytes Percent Auto2.91.7- 12.0 %Eosinophils Percent Auto0.10.9-7.0 %Basophils Percent Auto0.10.2-2.0 % Immature Granulocytes Pct Auto0.40.0-0.5 %Neutrophils Absolute Auto10.01.4-6.5 10 3/uLLymphocytes Absolute Auto0.51.2-3.8 10 3/uLMonocytes Absolute Auto0.30.3- 0.8 10 3/uLEosinophils Absolute Auto0.00.0-0.7 10 3/uLBasophils Absolute Auto0.0 0.0-0.1 10 3/uLImmature Granulocytes Abs Auto0.040.00-0.03 10 3/uLPerforming Lab:see noteML - [facility] LBLower Respiratory Culture Reviewed date:08/10/2024 03:10:26 PM Interpretation: Performing Lab: Notes/Report: [facility] ,Lower Respiratory CultureSee Below For Report Lower Respiratory Culture WILL FOLLOW Lower Respiratory CultureSpecimen has been received and testing has been initiated. Lower Respiratory Culture WILL FOLLOW Lower Respiratory CultureRoutine respiratory naye Lower Respiratory Culture WILL FOLLOW Lower Respiratory CulturePerformed at: - [facility] Lower Respiratory Culture WILL FOLLOW Lower Respiratory [address] [place], [place] [address] Lower Respiratory Culture WILL FOLLOW Lower Respiratory CultureLab Director: Yonny Pa PhD, Phone: [phone] Lower Respiratory Culture WILL FOLLOW Performing Lab:see note LC - [facility] LB SEE 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 Gram Stain Evaluation Reviewed date:08/10/2024 03:10:26 PM Interpretation: Performing Lab: Notes/Report: [facility] ,Gram Stain EvaluationSee Below For Report Gram Stain Evaluation This specimen is of good quality and is acceptable for routine Gram Stain Evaluationbacterial culture. Gram Stain Evaluation This specimen is of good quality and is acceptable for routine Performing Lab:see noteLC - [facility] LBPROF 14(COMP METB) Reviewed date:08/10/2024 03:10:26 PM Interpretation: Performing Lab: Notes/Report: [facility] ,Pskmvy091282-951 mmol/LPotassium3.63.5-5.1 mmol/SLyueroav06883-315 mmol/LCarbon Tgcnfpq12.721.0-32.0 mmol/LAnion Gap10.1Wcacewo56199-559 mg/dLBlood Urea Emyrympf01.07.0-18.0 mg/dLCreatinine0.790.70-1.30 mg/dLEstimated GFR ( Cinthia>60>=60 mL/min/1.73m 2Estimated GFR (Non- Sabine>60>=60 mL/min/1.73m 2BUN Creatinine Ratio24.4Ayatnzd6.08.5-10.1 mg/dLBilirubin Total0.30.2-1.0 mg/dL Aspartate Amino Gkgulkwclmo964-98 U/LAlanine Qrothdlihzcpnwqj7428-72 U/LAlkaline Ezwzklyneap0594-746 U/LTotal Protein6.36.4-8.2 g/dLAlbumin Level3.33.4-5.0 g/dL Globulin3.0Albumin Globulin Ratio1.1Performing Lab:see noteML - [facility] LBResult 4 Reviewed date:08/10/2024 03:10:26 PM Interpretation: Performing Lab: Notes/Report: [facility] ,Result 4See Below For Report Result 4 INVESTMENT TRADER Performing Lab:see noteLC - [facility] LBResult 3 Reviewed date:08/10/2024 03:10:26 PM Interpretation: Performing Lab: Notes/Report: [facility] ,Result 3See Below For Report Result 3 INVESTMENT TRADER Performing Lab:see noteLC - [facility] LBManual Differential Reviewed date:08/10/2024 03:10:26 PM Interpretation: Performing Lab: Notes/Report: [facility] ,Segmented Neutrophils % Utzxnm81.043.0-75.0Lymphocytes Percent Manual6.020.5- 60.0 %Monocytes Percent Manual8.01.7-12.0 %Eosinophils Percent Manual0.00.9-7.0 %Basophils Percent Manual0.00.2-2.0 %Segmented Neut Absolute Crmgli89.241.4-6.5 10 3/uLLymphocytes Absolute Manual1.481.20-3.80 10 3/uLMonocytes Absolute Manual 1.970.30-0.80 10 3/uLEosinophils Absolute Manual0.000.00-0.70 10 3/uLBasophils Abs Manual0.000.00-0.10 10 3/uLPerforming Lab:see noteML - [facility] LBTroponin I High Sensitivity Reviewed date:08/10/2024 03:10:26 PM Interpretation: Performing Lab: Notes/Report: [facility] ,Troponin I High Sensitivity5.44.0-76.1 pg/mL CUT-OFF POINTS HAVE BEEN ESTABLISHED BASED ON THE FOURTH UNIVERSAL DEFINITION OF MYOCARDIAL INFARCTION. THE UPPER REFERENCE LIMIT (URL) OF TROPONIN, DEFINED THE 99TH PERCENTILE OF cTnI DISTRIBUTION IN A REFERENCE POPULATION, HAS BEEN CONFIRMED THE DECISION THRESHOLD FOR [place] DIAGNOSIS. 99TH PERCENTILE = 76.2 PG/ML NOTE: HIGH-SENSITIVITY TROPONIN ASSAY IS NOT INTENDED TO BE USED IN ISOLATION BUT SHOULD BE INTERPRETED IN CONJUNCTION WITH OTHER DIAGNOSTIC AND CLINICAL INFORMATION. Performing Lab:see noteML - [facility] LBEthanol Reviewed date:08/10/2024 03:10:26 PM Interpretation: Performing Lab: Notes/Report: [facility] ,Ufzbjpc63UZUQ: 80 mg/dl is the legal limit for a blood alcohol levelPerforming Lab:see noteML - [facility] LBECG 12 lead Reviewed date:08/10/2024 03:10:26 PM Interpretation: Performing Lab: Notes/Report: Source Facility: [facility]-[address] [place] [address] [place] [address] Electrocardiograph Report Signed Patient: LUIS SOLOMON MR#: [id number] : 1990 Acct:[id number] Age/Sex: 33 / M ADM Date: 08/09/24 Loc: ICU 273-[address]: Nicola Wyatt D.O. 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 Measurements Intervals [place] Rate: 124 P: 44 MA: 144 QRS: 191 QRSD: 82 T: 48 [...] Signed By: 08/09/24 1706 DD/ 0921 TD/TT: Train Conductor:Result 2 Reviewed date:08/10/2024 03:10:26 PM Interpretation: Performing Lab: Notes/Report: [facility] ,Result 2See Below For Report Result 2 INVESTMENT TRADER Performing Lab:see noteLC - [facility] LBResult 1 Reviewed date:08/10/2024 03:10:26 PM Interpretation: Performing Lab: Notes/Report: [facility] ,Result 1See Below For Report Result 1 Rare gram positive cocci Performing Lab:see noteLC - [facility] LBEpithelial Cells Reviewed date:08/10/2024 03:10:26 PM Interpretation: Performing Lab: Notes/Report: [facility] ,Epithelial CellsSee Below For Report Epithelial Cells None seen Performing Lab:see noteLC - [facility] LBWhite Blood Cells Reviewed date:08/10/2024 03:10:26 PM Interpretation: Performing Lab: Notes/Report: [facility] ,White Blood CellsSee Below For Report White Blood Cells White Blood CellsFew White Blood Cells Performing Lab:see noteLC - [facility] LBCBC AUTO DIFF Reviewed date:08/11/2024 12:58:08 PM Interpretation: Performing Lab: Notes/Report: [facility] ,White Blood Count15.54.0-11.0 10 3/uLRed Blood Count4.514.70-6.10 10 6/uL Umqyxnjehr61.914.0-18.0 g/uKUbfxfgfidu72.942.0-54.0 %Mean Corpuscular Josnse61.3 80.0-94.0 fLMean Corpuscular Nfawzetnsb36.625.9-34.0 pgMean Corpuscular HGB Conc 33.229.9-35.2 g/dLRed Cell Distribution Width13.011.0-15.0 %Platelet Vtkzo397 150-450 10 3/uLMean Platelet Jsmofe23.59.5-13.5 fLNeutrophils Percent Auto89.9 43.0-75.0 %Lymphocytes Percent Auto3.920.5-60.0 %Monocytes Percent Auto3.61.7- 12.0 %Eosinophils Percent Auto0.30.9-7.0 %Basophils Percent Auto0.20.2-2.0 % Immature Granulocytes Pct Auto2.10.0-0.5 %Neutrophils Absolute Auto13.91.4-6.5 10 3/uLLymphocytes Absolute Auto0.61.2-3.8 10 3/uLMonocytes Absolute Auto0.60.3- 0.8 10 3/uLEosinophils Absolute Auto0.00.0-0.7 10 3/uLBasophils Absolute Auto0.0 0.0-0.1 10 3/uLImmature Granulocytes Abs Auto0.320.00-0.03 10 3/uLPerforming Lab:see noteML - [facility] LBBlood Culture 2 Reviewed date:08/10/2024 03:10:25 PM Interpretation: Performing Lab: Notes/Report: [facility] ,Blood Culture 2See Below For Report Blood Culture 2 NG5D NO GROWTH AT 5 DAYS.^NO GROWTH AT 5 DAYS. Performing Lab:see noteML - [facility] LBPROF 14(COMP METB) Reviewed date:08/11/2024 12:58:08 PM Interpretation: Performing Lab: Notes/Report: [facility] ,Ktnszb788541-840 mmol/LPotassium4.23.5-5.1 mmol/GGlfpedkc07335-285 mmol/LCarbon Eponoao90.221.0-32.0 mmol/LAnion Gap9.4Sjbpygs48734-707 mg/dLBlood Urea Nitrogen 22.07.0-18.0 mg/dLCreatinine0.750.70-1.30 mg/dLEstimated GFR ( Cinthia>60 >=60 mL/min/1.73m 2Estimated GFR (Non- Sabine>60>=60 mL/min/1.73m 2BUN Creatinine Ratio29.9Nkjdvwv5.18.5-10.1 mg/dLBilirubin Total0.30.2-1.0 mg/dL Aspartate Amino Swcqbocngkb780-48 U/LAlanine Lgtimupcqiigoafm6606-45 U/LAlkaline Fvrfjpgyhto1556-022 U/LTotal Protein5.26.4-8.2 g/dLAlbumin Level2.53.4-5.0 g/dL Globulin2.7Albumin Globulin Ratio0.9Performing Lab:see noteML - [facility] LBBlood Culture 1 Reviewed date:08/10/2024 03:10:25 PM Interpretation: Performing Lab: Notes/Report: [facility] ,Blood Culture 1See Below For Report Blood Culture 1 NG5D NO GROWTH AT 5 DAYS.^NO GROWTH AT 5 DAYS. Performing Lab:see noteML - [facility] LBTroponin I High Sensitivity Reviewed date:08/05/2024 09:15:27 AM Interpretation: Performing Lab: Notes/Report: [facility] ,Troponin I High Sensitivity4.34.0-76.1 pg/mL CUT-OFF POINTS HAVE BEEN ESTABLISHED BASED ON THE FOURTH UNIVERSAL DEFINITION OF MYOCARDIAL INFARCTION. THE UPPER REFERENCE LIMIT (URL) OF TROPONIN, DEFINED THE 99TH PERCENTILE OF cTnI DISTRIBUTION IN A REFERENCE POPULATION, HAS BEEN CONFIRMED THE DECISION THRESHOLD FOR [place] DIAGNOSIS. 99TH PERCENTILE = 76.2 PG/ML NOTE: HIGH-SENSITIVITY TROPONIN ASSAY IS NOT INTENDED TO BE USED IN ISOLATION BUT SHOULD BE INTERPRETED IN CONJUNCTION WITH OTHER DIAGNOSTIC AND CLINICAL INFORMATION. Performing Lab:see noteML - [facility] LBCBC AUTO DIFF Reviewed date:08/12/2024 08:28:59 AM Interpretation: Performing Lab: Notes/Report: [facility] ,White Blood Count15.14.0-11.0 10 3/uLRed Blood Count4.854.70-6.10 10 6/uL Nqxmfukbov38.814.0-18.0 g/yOWfpwwwulnl86.042.0-54.0 %Mean Corpuscular Jfmtzo76.6 80.0-94.0 fLMean Corpuscular Oyofmsmcow83.525.9-34.0 pgMean Corpuscular HGB Conc 32.929.9-35.2 g/dLRed Cell Distribution Width12.911.0-15.0 %Platelet Kwmaj186 150-450 10 3/uLMean Platelet Ansldf83.39.5-13.5 fLNeutrophils Percent Auto89.0 43.0-75.0 %Lymphocytes Percent Auto4.320.5-60.0 %Monocytes Percent Auto4.11.7- 12.0 %Eosinophils Percent Auto0.40.9-7.0 %Basophils Percent Auto0.20.2-2.0 % Immature Granulocytes Pct Auto2.00.0-0.5 %Neutrophils Absolute Auto13.41.4-6.5 10 3/uLLymphocytes Absolute Auto0.61.2-3.8 10 3/uLMonocytes Absolute Auto0.60.3- 0.8 10 3/uLEosinophils Absolute Auto0.10.0-0.7 10 3/uLBasophils Absolute Auto0.0 0.0-0.1 10 3/uLImmature Granulocytes Abs Auto0.300.00-0.03 10 3/uLPerforming Lab:see noteML - [facility] LBPROF CHEM 8 (BAS METB) Reviewed date:08/05/2024 09:15:27 AM Interpretation: Performing Lab: Notes/Report: [facility] ,Ntbqyl229016-377 mmol/LPotassium4.43.5-5.1 mmol/MTrdmuewh20194-289 mmol/LCarbon Jwlghdv63.521.0-32.0 mmol/LAnion Gap12.0Qlqumur28202-865 mg/dLBlood Urea Nitrogen9.07.0-18.0 mg/dLCreatinine1.090.70-1.30 mg/dLEstimated GFR ( Cinthia>60>=60 mL/min/1.73m 2Estimated GFR (Non- Sabine>60>=60 mL/min/1.73m 2BUN Creatinine Ratio8.8Gszzdwj3.98.5-10.1 mg/dLPerforming Lab:see noteML - [facility] LBLACTATE or LACTIC ACID Reviewed date:08/05/2024 09:15:27 AM Interpretation: Performing Lab: Notes/Report: [facility] ,Lactate/Lactic Acid0.90.4-2.0 mmol/LPerforming Lab:see note - [facility] LBCBC AUTO DIFF Reviewed date:08/05/2024 09:15:27 AM Interpretation: Performing Lab: Notes/Report: [facility] ,White Blood Count10.74.0-11.0 10 3/uLRed Blood Count5.234.70-6.10 10 6/uL Ebeuiuvqdx36.214.0-18.0 g/nLWcpumavqtd08.842.0-54.0 %Mean Corpuscular Rkdhhx07.7 80.0-94.0 fLMean Corpuscular Vxjzruipkh52.125.9-34.0 pgMean Corpuscular HGB Conc 33.929.9-35.2 g/dLRed Cell Distribution Width12.911.0-15.0 %Platelet Ocdvl913 150-450 10 3/uLMean Platelet Foejav25.89.5-13.5 fLNeutrophils Percent Auto76.4 43.0-75.0 %Lymphocytes Percent Auto11.620.5-60.0 %Monocytes Percent Auto10.81.7- 12.0 %Eosinophils Percent Auto0.10.9-7.0 %Basophils Percent Auto0.90.2-2.0 % Immature Granulocytes Pct Auto0.20.0-0.5 %Neutrophils Absolute Auto8.21.4-6.5 10 3/uLLymphocytes Absolute Auto1.31.2-3.8 10 3/uLMonocytes Absolute Auto1.20.3-0.8 10 3/uLEosinophils Absolute Auto0.00.0-0.7 10 3/uLBasophils Absolute Auto0.10.0- 0.1 10 3/uLImmature Granulocytes Abs Auto0.020.00-0.03 10 3/uLPerforming Lab:see noteML - [facility] LBECG 12 lead Reviewed date:07/07/2024 08:16:57 AM Interpretation: Performing Lab: Notes/Report: Source Facility: [place] [address] Electrocardiograph Report Signed Patient: LUIS SOLOMON MR#: [id number] : 1990 Acct:[id number] Age/Sex: 33 / M ADM Date: 07/03/24 Loc: ER Attending Dr: Ordering Physician: Mark Nieto M.D. 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 Signed By: 07/03/242011 DD/ 3 TD/TT: Train Conductor:ECG 12 lead Reviewed date:05/26/2024 08:18:37 AM Interpretation: Performing Lab: Notes/Report: Source Facility: [facility]-[address] [place] [address] [place] [address] Electrocardiograph Report Signed Patient: LUIS SOLOMON MR#: [id number] : 1990 Acct:[id number] Age/Sex: 33 / M ADM Date: 05/22/24 Loc: ER Attending Dr: Ordering Physician: Kristina Martinez Date of Service: 05/22/24 Procedure(s): ECG 12 lead Accession Number(s): [id number] cc: [facility] Test Date: 2024-05-22 Pat Name: LUIS SOLOMON Department: Room: - 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 Signed By: 05/25/24 0738 DD/ 1841 TD/TT: Train Conductor:SARS-CoV-2 Ag* Reviewed date:05/26/2024 08:18:37 AM Interpretation: Performing Lab: Notes/Report: [facility] ,SARS-CoV-2 AgNEGATIVENEGATIVE This test has not been FDA cleared [...] terminated or authorization is revoked sooner. Performing Lab:see note - [facility] LBVenous Blood Gas Reviewed date:05/26/2024 08:18:37 AM Interpretation: Performing Lab: Notes/Report: [facility] ,pH VBG7.4427.330-7.150QQO0 VBG42.540.0-52.0 mmHgPerforming Lab:see note - [facility] LBProthrombin Time INR Reviewed date:05/26/2024 08:18:37 AM Interpretation: Performing Lab: Notes/Report: [facility] ,Prothrombin Time10.29.0-11.6 secINR0.96 DESIRED INR: 2.0-3.0 CONDITIONS NOT LISTED BELOW 2.5-3.5 FOR PROSTHETIC HEART VALVE REPLACEMENT 2.5-3.5 RECURRENT THROMBOSIS [facility] LBRSV Reviewed date:05/26/2024 08:18:37 AM Interpretation: Performing Lab: Notes/Report: [facility] ,Respiratory Syncytial VirusNot DetectedNOT DETECTEPerforming Lab:[facility] LBPROF CHEM 8 (BAS METB) Reviewed date:08/12/2024 09:10:33 AM Interpretation: Performing Lab: Notes/Report: [facility] ,Bkksjr218673-198 mmol/LPotassium4.13.5-5.1 mmol/FKuuihfoy45831-995 mmol/LCarbon Rhxhnom82.921.0-32.0 mmol/LAnion Gap10.5Cumzkmw51147-128 mg/dLBlood Urea Xqpyuliu21.07.0-18.0 mg/dLCreatinine0.840.70-1.30 mg/dLEstimated GFR ( Cinthia>60>=60 mL/min/1.73m 2Estimated GFR (Non- Sabine>60>=60 mL/min/1.73m 2BUN Creatinine Ratio26.8Htnbeiz8.08.5-10.1 mg/dLPerforming Lab:[facility] noteHol[facility] LBGram Stain Evaluation Reviewed date:08/18/2024 01:51:36 PM Interpretation: Performing Lab: Notes/Report: [facility] ,Gram Stain EvaluationSee Below For Report Gram Stain Evaluation This specimen is of good quality and is acceptable for routine Gram Stain Evaluationbacterial culture. Gram Stain Evaluation This specimen is of good quality and is acceptable for routine Performing Lab:see noteLC - [facility] LBLACTATE or LACTIC ACID Reviewed date:05/26/2024 08:18:37 AM Interpretation: Performing Lab: Notes/Report: [facility] ,Lactate/Lactic Acid1.00.4-2.0 mmol/LPerforming Lab:see noteML - [facility] LBINFLUENZA A AND B AG Reviewed date:05/26/2024 08:18:37 AM Interpretation: Performing Lab: Notes/Report: [facility] ,Influenza Virus A AntigenNegative Negative for Flu A protein antigen. Infection due to Flu A cannot be ruled out. Flu A antigen in the sample may be below the detection limit of the test. Influenza Virus B AntigenNegative Negative for Flu B protein antigen. Infection due to Flu B cannot be ruled out. Flu B antigen in the sample may be below the detection limit of the test. Performing Lab:see noteML - [facility] LBCBC AUTO DIFF Reviewed date:02/09/2025 10:41:20 AM Interpretation: Performing Lab: Notes/Report: [facility] ,White Blood Count6.14.0-11.0 10 3/uLRed Blood Count5.314.70-6.10 10 6/uL Ueqiyecuiw14.114.0-18.0 g/eBJvixwrskyh27.242.0-54.0 %Mean Corpuscular Zrqunb32.1 80.0-94.0 fLMean Corpuscular Pmjctnsujy80.425.9-34.0 pgMean Corpuscular HGB Conc 33.429.9-35.2 g/dLRed Cell Distribution Width13.611.0-15.0 %Platelet Grqzr345 150-450 10 3/uLMean Platelet Oplaoj30.59.5-13.5 fLNeutrophils Percent Auto55.2 43.0-75.0 %Lymphocytes Percent Auto29.420.5-60.0 %Monocytes Percent Auto11.91.7- 12.0 %Eosinophils Percent Auto1.50.9-7.0 %Basophils Percent Auto1.80.2-2.0 % Immature Granulocytes Pct Auto0.20.0-0.5 %Neutrophils Absolute Auto3.41.4-6.5 10 3/uLLymphocytes Absolute Auto1.81.2-3.8 10 3/uLMonocytes Absolute Auto0.70.3-0.8 10 3/uLEosinophils Absolute Auto0.10.0-0.7 10 3/uLBasophils Absolute Auto0.10.0- 0.1 10 3/uLImmature Granulocytes Abs Auto0.010.00-0.03 10 3/uLPerforming Lab:see noteML - [facility] LBLACTATE or LACTIC ACID Reviewed date:02/09/2025 10:41:20 AM Interpretation: Performing Lab: Notes/Report: [facility] ,Lactate/Lactic Acid1.00.4-2.0 mmol/LPerforming Lab:see noteML - [facility] LBLIPASE Reviewed date:02/09/2025 10:41:20 AM Interpretation: Performing Lab: Notes/Report: [facility] ,Rhivxc61.016.0-77.0 U/LPerforming Lab:see noteML - [facility] LBPROF 14(COMP METB) Reviewed date:02/09/2025 10:41:20 AM Interpretation: Performing Lab: Notes/Report: [facility] ,Ticlke673192-127 mmol/LPotassium3.63.5-5.1 mmol/EBpbgxyte92330-545 mmol/LCarbon Iajxstk59.121.0-32.0 mmol/LAnion Gap11.0Avonufx2922-988 mg/dLBlood Urea Nitrogen 11.07.0-18.0 mg/dLCreatinine0.800.70-1.30 mg/dLEstimated GFR ( Cinthia>60 >=60 mL/min/1.73m 2Estimated GFR (Non- Sabine>60>=60 mL/min/1.73m 2BUN Creatinine Ratio13.5Wriylfi1.38.5-10.1 mg/dLBilirubin Total0.40.2-1.0 mg/dL Aspartate Amino Agrjtpgagrh5706-48 U/LAlanine Osubmqrkibvyewww2838-60 U/L Alkaline Abktwkrymcv8179-511 U/LTotal Protein7.06.4-8.2 g/dLAlbumin Level3.73.4- 5.0 g/dLGlobulin3.3Albumin Globulin Ratio1.1Performing Lab:see noteML - [facility] LBUA Micro, reflex to culture Reviewed date:02/09/2025 10:41:20 AM Interpretation: Performing Lab: Notes/Report: [facility] ,Color UrineYELLOWYELLOWClarity UrineSL CLOUDYCLEARSpecific Rupert Urine1.025 1.005-1.025pH Urine6.55.0-9.0Protein UrineNEGATIVENEG/TRACE mg/dLGlucose Urine UANEGATIVENEGATIVE mg/dLBilirubin UrineNEGATIVENEGATIVEKetones UrineNEGATIVE NEGATIVE mg/dLBlood UrineNEGATIVENEGATIVENitrite UrineNEGATIVENEGATIVE Urobilinogen Urine1.00.2-1.0 EU/dLLeukocyte Esterase UrineNEGATIVENEGATIVEWBC Urine0-2NONE SEEN #/HPFRBC Urine2-50-2 #/HPFBacteria UrineTRACENONE SEEN #/HPF Mucus UrineNONE SEENNONE SEENSquamous Epithelial Cell UrineNONE SEENNONE/RARE #/LPFCrystals Seen?SeenNone Seen #/HPFAmorphous Sediment UrineRARECast Seen?NONE SEENNONE SEEN #/LPFUrine Culture IndicatedNOPerforming Lab:see noteML - [facility] LBCBC AUTO DIFF Reviewed date:05/26/2024 08:18:37 AM Interpretation: Performing Lab: Notes/Report: [facility] ,White Blood Count9.74.0-11.0 10 3/uLRed Blood Count5.114.70-6.10 10 6/uL Glefebumlq40.214.0-18.0 g/sMVwuortyflv87.442.0-54.0 %Mean Corpuscular Yqlqyq30.8 80.0-94.0 fLMean Corpuscular Ofwhizoxfb38.725.9-34.0 pgMean Corpuscular HGB Conc 33.529.9-35.2 g/dLRed Cell Distribution Width12.411.0-15.0 %Platelet Yqbpr167 150-450 10 3/uLMean Platelet Zvscaq36.09.5-13.5 fLNeutrophils Percent Auto73.2 43.0-75.0 %Lymphocytes Percent Auto14.620.5-60.0 %Monocytes Percent Auto10.21.7- 12.0 %Eosinophils Percent Auto0.90.9-7.0 %Basophils Percent Auto0.20.2-2.0 % Immature Granulocytes Pct Auto0.90.0-0.5 %Neutrophils Absolute Auto7.11.4-6.5 10 3/uLLymphocytes Absolute Auto1.41.2-3.8 10 3/uLMonocytes Absolute Auto1.00.3-0.8 10 3/uLEosinophils Absolute Auto0.10.0-0.7 10 3/uLBasophils Absolute Auto0.00.0- 0.1 10 3/uLImmature Granulocytes Abs Auto0.090.00-0.03 10 3/uLPerforming Lab:see noteML - [facility] LBTHEOPHYLLINE Reviewed date:05/14/2024 03:54:09 PM Interpretation: Performing Lab: Notes/Report: [facility] ,Theophylline6.210.0-20.0 ug/mL --- 05/14/24 0623 --- Hector previously reported as: 6.2 L ug/mL Performing Lab:see noteML - [facility] LBLIPASE Reviewed date:02/24/2025 12:59:19 PM Interpretation: Performing Lab: Notes/Report: [facility] ,Tetddt52.016.0-77.0 U/LPerforming Lab:see noteML - [facility] LBPROF 14(COMP METB) Reviewed date:02/24/2025 12:59:19 PM Interpretation: Performing Lab: Notes/Report: [facility] ,Kufwog886907-154 mmol/LPotassium3.33.5-5.1 mmol/RTfylnrke46542-129 mmol/LCarbon Eohqwwf73.121.0-32.0 mmol/LAnion Gap14.3Wpfstiv66597-579 mg/dLBlood Urea Fxgwgbqi79.07.0-18.0 mg/dLCreatinine0.860.70-1.30 mg/dLEstimated GFR ( Cinthia>60>=60 mL/min/1.73m 2Estimated GFR (Non- Sabine>60>=60 mL/min/1.73m 2BUN Creatinine Ratio11.5Fymrjen0.78.5-10.1 mg/dLBilirubin Total1.20.2-1.0 mg/dL Aspartate Amino Rrndvajonif7083-99 U/LAlanine Akqkkgsncwvbeljo8643-49 U/L Alkaline Qyihbxkbaki7677-629 U/LTotal Protein7.36.4-8.2 g/dLAlbumin Level3.83.4- 5.0 g/dLGlobulin3.5Albumin Globulin Ratio1.1Performing Lab:[facility] LBPROF CHEM 8 (BAS METB) Reviewed date:05/14/2024 03:54:09 PM Interpretation: Performing Lab: Notes/Report: [facility] ,Wkjimo661437-553 mmol/LPotassium3.53.5-5.1 mmol/BHxaxntki45546-635 mmol/LCarbon Iytvgcx10.921.0-32.0 mmol/LAnion Gap14.4Knhlfci49884-590 mg/dLBlood Urea Tkffxzle85.07.0-18.0 mg/dLCreatinine1.010.70-1.30 mg/dLEstimated GFR ( Cinthia>60>=60 mL/min/1.73m 2Estimated GFR (Non- Sabine>60>=60 mL/min/1.73m 2BUN Creatinine Ratio17.5Kpuzjuv2.48.5-10.1 mg/dLPerforming Lab:see note - [facility] LBBlood Culture 1 Reviewed date:03/02/2025 04:15:36 PM Interpretation: Performing Lab: Notes/Report: RIGHT AC [facility] ,Blood Culture 1See Below For Report Blood Culture 1 NG5D NO GROWTH AT 5 DAYS.^NO GROWTH AT 5 DAYS. Performing Lab:see [facility] LBBlood Culture 2 Reviewed date:03/02/2025 04:15:36 PM Interpretation: Performing Lab: Notes/Report: RIGHT WRIST - PEDS [facility] ,Blood Culture 2See Below For Report Blood Culture 2 NG5D NO GROWTH AT 5 DAYS.^NO GROWTH AT 5 DAYS. Performing Lab:see noteML - [facility] LBCBC AUTO DIFF Reviewed date:05/14/2024 03:54:09 PM Interpretation: Performing Lab: Notes/Report: [facility] ,White Blood Count11.54.0-11.0 10 3/uLRed Blood Count4.854.70-6.10 10 6/uL Wccfhvlmsi76.314.0-18.0 g/yLJfnrjlzbrq04.442.0-54.0 %Mean Corpuscular Mnbdvf53.4 80.0-94.0 fLMean Corpuscular Bstffubyge83.525.9-34.0 pgMean Corpuscular HGB Conc 33.729.9-35.2 g/dLRed Cell Distribution Width12.111.0-15.0 %Platelet Lmpmn625 150-450 10 3/uLMean Platelet Qlfyrg94.39.5-13.5 fLNeutrophils Percent Auto87.6 43.0-75.0 %Lymphocytes Percent Auto6.120.5-60.0 %Monocytes Percent Auto3.01.7- 12.0 %Eosinophils Percent Auto0.00.9-7.0 %Basophils Percent Auto0.20.2-2.0 % Immature Granulocytes Pct Auto3.10.0-0.5 %Neutrophils Absolute Auto10.11.4-6.5 10 3/uLLymphocytes Absolute Auto0.71.2-3.8 10 3/uLMonocytes Absolute Auto0.30.3- 0.8 10 3/uLEosinophils Absolute Auto0.00.0-0.7 10 3/uLBasophils Absolute Auto0.0 0.0-0.1 10 3/uLImmature Granulocytes Abs Auto0.350.00-0.03 10 3/uLPerforming Lab:see noteML - [facility] LBWhite Blood Cells Reviewed date:03/03/2025 08:35:52 AM Interpretation: Performing Lab: Notes/Report: [facility] ,White Blood CellsSee Below For Report White Blood Cells White Blood CellsMany White Blood Cells Performing Lab:see noteLC - [facility] LBEpithelial Cells Reviewed date:03/03/2025 08:35:52 AM Interpretation: Performing Lab: Notes/Report: [facility] ,Epithelial CellsSee Below For Report Epithelial Cells None seen Performing Lab:see [facility] - [facility] LBResult 1 Reviewed date:03/03/2025 08:35:52 AM Interpretation: Performing Lab: Notes/Report: [facility] ,Result 1See Below For Report Result 1 Moderate gram negative rods. Performing Lab:see noteFORMERLY [facility] LBResult 2 Reviewed date:03/03/2025 08:35:52 AM Interpretation: Performing Lab: Notes/Report: [facility] ,Result 2See Below For Report Result 2 INVESTMENT TRADER Performing Lab:see note - [facility] LBResult 3 Reviewed date:03/03/2025 08:35:52 AM Interpretation: Performing Lab: Notes/Report: [facility] ,Result 3See Below For Report Result 3 INVESTMENT TRADER Performing Lab:see note - [facility] LBResult 4 Reviewed date:03/03/2025 08:35:52 AM Interpretation: Performing Lab: Notes/Report: [facility] ,Result 4See Below For Report Result 4 INVESTMENT TRADER Performing Lab:see noteFORMERLY [facility] LBGram Stain Evaluation Reviewed date:03/02/2025 09:23:11 AM Interpretation: Performing Lab: Notes/Report: [facility] ,Gram Stain EvaluationSee Below For Report Gram Stain Evaluation This specimen is of good quality and is acceptable for routine Gram Stain Evaluationbacterial culture. Gram Stain Evaluation This specimen is of good quality and is acceptable for routine Performing Lab:see [facility] LBLower Respiratory Culture Reviewed date:03/03/2025 08:35:52 AM Interpretation: Performing Lab: Notes/Report: [facility] ,Lower Respiratory CultureSee Below For Report Lower Respiratory Culture WILL FOLLOW O:HAEINF Isolated Lower Respiratory CultureOrganism: Haemophilus influenzae : Lower Respiratory Culture WILL FOLLOW O:HAEINF Isolated Lower Respiratory Culture*ABNORMAL* Lower Respiratory Culture WILL FOLLOW O:HAEINF Isolated Lower Respiratory CultureHeavy growth Lower Respiratory Culture WILL FOLLOW O:HAEINF Isolated Lower Respiratory CultureBeta lactamase negative. Lower Respiratory Culture WILL FOLLOW O:HAEINF Isolated Lower Respiratory CultureAmoxicillin-clavulanic acid, azithromycin, Lower Respiratory Culture WILL FOLLOW O:HAEINF Isolated Lower Respiratory Cultureclarithromycin, cefaclor, cefprozil, cefdinir, Lower Respiratory Culture WILL FOLLOW O:HAEINF Isolated Lower Respiratory Culturecefixime, cefpodoxime, and cefuroxime are oral agents Lower Respiratory Culture WILL FOLLOW O:HAEINF Isolated Lower Respiratory Culturethat may be used as empiric therapy for respiratory Lower Respiratory Culture WILL FOLLOW O:HAEINF Isolated Lower Respiratory Culturetract infections due to Haemophilus spp. The results Lower Respiratory Culture WILL FOLLOW O:HAEINF Isolated Lower Respiratory Cultureof susceptibility tests with these antimicrobial Lower Respiratory Culture WILL FOLLOW O:HAEINF Isolated Lower Respiratory Cultureagents are often not necessary for management of Lower Respiratory Culture WILL FOLLOW O:HAEINF Isolated Lower Respiratory Cultureindividual patients (CLSI). If susceptibility testing Lower Respiratory Culture WILL FOLLOW O:HAEINF Isolated Lower Respiratory Cultureis desired please contact the laboratory within 3 Lower Respiratory Culture WILL FOLLOW O:HAEINF Isolated Lower Respiratory Culturedays. Lower Respiratory Culture WILL FOLLOW O:HAEINF Isolated Lower Respiratory CultureHaemophilus influenzae Lower Respiratory Culture WILL FOLLOW O:HAEINF Isolated Lower Respiratory CultureOrganism: Haemophilus influenzae : Lower Respiratory Culture WILL FOLLOW O:HAEINF Isolated Lower Respiratory Culture*ABNORMAL* Lower Respiratory Culture WILL FOLLOW O:HAEINF Isolated Lower Respiratory CultureHeavy growth Lower Respiratory Culture WILL FOLLOW O:HAEINF Isolated Lower Respiratory CultureBeta lactamase negative. Lower Respiratory Culture WILL FOLLOW O:HAEINF Isolated Lower Respiratory CultureAmoxicillin-clavulanic acid, azithromycin, Lower Respiratory Culture WILL FOLLOW O:HAEINF Isolated Lower Respiratory Cultureclarithromycin, cefaclor, cefprozil, cefdinir, Lower Respiratory Culture WILL FOLLOW O:HAEINF Isolated Lower Respiratory Culturecefixime, cefpodoxime, and cefuroxime are oral agents Lower Respiratory Culture WILL FOLLOW O:HAEINF Isolated Lower Respiratory Culturethat may be used as empiric therapy for respiratory Lower Respiratory Culture WILL FOLLOW O:HAEINF Isolated Lower Respiratory Culturetract infections due to Haemophilus spp. The results Lower Respiratory Culture WILL FOLLOW O:HAEINF Isolated Lower Respiratory Cultureof susceptibility tests with these antimicrobial Lower Respiratory Culture WILL FOLLOW O:HAEINF Isolated Lower Respiratory Cultureagents are often not necessary for management of Lower Respiratory Culture WILL FOLLOW O:HAEINF Isolated Lower Respiratory Cultureindividual patients (CLSI). If susceptibility testing Lower Respiratory Culture WILL FOLLOW O:HAEINF Isolated Lower Respiratory Cultureis desired please contact the laboratory within 3 Lower Respiratory Culture WILL FOLLOW O:HAEINF Isolated Lower Respiratory Culturedays. Lower Respiratory Culture WILL FOLLOW O:HAEINF Isolated Lower Respiratory Culture Lower Respiratory Culture WILL FOLLOW O:HAEINF Isolated Lower Respiratory CultureRoutine respiratory naye Lower Respiratory Culture WILL FOLLOW O:HAEINF Isolated Lower Respiratory CultureModerate growth Lower Respiratory Culture WILL FOLLOW O:HAEINF Isolated Lower Respiratory CultureSee Below For Report Lower Respiratory Culture WILL FOLLOW O:HAEINF Isolated Lower Respiratory CulturePerformed at: CB - [facility] [place] Lower Respiratory Culture WILL FOLLOW O:HAEINF Isolated Lower Respiratory [address] [place], [place] [id number] Lower Respiratory Culture WILL FOLLOW O:HAEINF Isolated Lower Respiratory CultureLab Director: Yonny Pa PhD, Phone: [phone] Lower Respiratory Culture WILL FOLLOW O:HAEINF Isolated Performing Lab:see note LC - [facility] LB 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 XR chest 2V Reviewed date:02/24/2025 12:59:19 PM Interpretation: Performing Lab: Notes/Report: Source Facility: [place] [address] XRay Report Signed Patient: LUIS SOLOMON MR#: [id number] : 1990 Acct:[id number] Age/Sex: 34 / M ADM Date: 02/24/25 Loc: ER Attending Dr: Ordering Physician: Destiney Larsen Date of Service: 02/24/25 Procedure(s): XR chest 2V Accession Number(s): [id number] cc: NEETU BARBOZA ; Destiney Larsen [place] [address] Patient Name: LUIS SOLOMON MRN: [id number] date: 1990 Sex: M Assigned Patient Location: ER Current Patient Location: ER Accession/Order Number: [id number] Exam Date: 02/24/2025 10:46 Report Date: 02/24/2025 11:29 At the request of: DESTINEY LARSEN DO Procedure: XR chest 2V PA AND LATERAL CHEST: CLINICAL HISTORY: Right-sided abdominal pain, productive cough, shortness of breath and chills COMPARISON: CT and chest x-ray 08/09/2024 and 05/10/2024 There is chronic blunting at the left costophrenic angle. There is minimal atelectasis or scarring. Bronchiectasis is again seen. The patchy airspace opacities present at the time of the July comparison have resolved. There is no new consolidation, effusion or pneumothorax. The cardiac, hilar and mediastinal silhouettes are similar. There is no vascular congestion. The visualized bony thorax is intact. XR/XR chest 2V IMPRESSION: CHRONIC CHANGES. NO DEFINITE ACUTE FINDINGS. Impression dictated by: Amy Coats M.D. 02/24/2025 11:29 AM Dictation Location: [place] [address] Electronically authenticated by: [id number] Y Date: 02/24/2025 11:29 Dictated By: Amy Coats M.D. Signed By: 02/24/25 1132 DD/ 1129 TD/TT: Train Conductor:CT abdomen pelvis w con Reviewed date:02/24/2025 12:59:19 PM Interpretation: Performing Lab: Notes/Report: Source Facility: [place] [address] CT Scan Report Signed Patient: LUIS SOLOMON MR#: [id number] : 1990 Acct:[id number] Age/Sex: 34 / M ADM Date: 02/24/25 Loc: ER Attending Dr: Ordering Physician: Destiney Larsen Date of Service: 02/24/25 Procedure(s): CT abdomen pelvis w con Accession Number(s): [id number] cc: NEETU BARBOZA [place] [address] Patient Name: LUIS SOLOMON MRN: [id number] date: 1990 Sex: M Assigned Patient Location: ER Current Patient Location: ER Accession/Order Number: [id number] Exam Date: 02/24/2025 10:35 Report Date: 02/24/2025 11:43 At the request of: DESTINEY LARSEN DO Procedure: CT abdomen pelvis w con CT ABDOMEN AND PELVIS WITH CONTRAST COMPARISON: 02/07/2025 and 02/02/2024 CLINICAL DATA: Right-sided abdominal pain, productive cough, chills and shortness of breath. Spiral images were obtained through the abdomen and pelvis following 100 mL of Omnipaque 300. This CT exam was performed using one or more following dose reduction techniques: Automated exposure control, adjustment of the mA and/or kV according to patient size, or use of iterative reconstruction technique. Limited cuts through the lung bases again show bronchiectasis. There is some associated airspace opacity in the field of view at the paramediastinal left lung base which has worsened. There is a similar irregular nodular opacity at the left lower lobe. A tiny hiatal hernia is visualized. There is continued swirling at the GE junction and some adjacent clips suggesting prior hiatal hernia repair. No calcified gallstones are identified. No intrahepatic masses are seen. The spleen, pancreas and adrenal glands show no acute findings. There are symmetric renal nephrograms, without hydronephrosis. The abdominal aorta is normal caliber. No enlarged lymph nodes or ascites are seen. There is a small amount of fluid within the stomach. There are borderline caliber small bowel loops, some of which contain air. There is no wall thickening. There is moderate stool at the ascending and transverse colon. The left colon is mostly decompressed. Dextroscoliotic curvature and mild degenerative changes are seen at the spine. Images through the pelvis show normal caliber small bowel loops. The appendix is not definitely seen. There is air and mild stool at the rectosigmoid colon. No diverticular disease is noted. The prostate is not significantly enlarged. There are no urinary bladder abnormalities for the degree of distention. No ascites is visualized. CT/CT abdomen pelvis w con IMPRESSION: BIBASILAR BRONCHIECTASIS. SLIGHT WORSENING OF LEFT AIRSPACE OPACITY. NO BOWEL OR URINARY TRACT OBSTRUCTION. NO OTHER ACUTE FINDINGS. Impression dictated by: Amy Coats M.D. 02/24/2025 11:43 AM Dictation Location: [place] [address] Electronically authenticated by: [id number] Y Date: 02/24/2025 11:43 Dictated By: Amy Coats M.D. Signed By: 02/24/25 1145 DD/ 1143 TD/TT: Train Conductor:Gram Stain Evaluation Reviewed date:03/03/2025 08:35:52 AM Interpretation: Performing Lab: Notes/Report: [facility] ,Gram Stain EvaluationSee Below For Report Gram Stain Evaluation This specimen is of good quality and is acceptable for routine Gram Stain Evaluationbacterial culture. Gram Stain Evaluation This specimen is of good quality and is acceptable for routine Performing Lab:see noteLC - [facility] LBMAGNESIUM Reviewed date:02/25/2025 08:32:18 AM Interpretation: Performing Lab: Notes/Report: [facility] ,Magnesium1.91.8-2.4 mg/dLPerforming Lab:see noteML - [facility] LB PHOSPHORUS Reviewed date:02/25/2025 08:32:18 AM Interpretation: Performing Lab: Notes/Report: [facility] ,Phosphorus2.22.6-4.7 mg/dLPerforming Lab:see noteML - [facility] LB PROF 14(COMP METB) Reviewed date:02/25/2025 08:32:18 AM Interpretation: Performing Lab: Notes/Report: [facility] ,Zdjgfr908304-595 mmol/LPotassium4.23.5-5.1 mmol/LMepcmwix37566-994 mmol/LCarbon Zujwfab66.121.0-32.0 mmol/LAnion Gap15.1Lwgjlyd35049-293 mg/dLBlood Urea Nitrogen9.07.0-18.0 mg/dLCreatinine0.930.70-1.30 mg/dLEstimated GFR ( Cinthia>60>=60 mL/min/1.73m 2Estimated GFR (Non- Sabine>60>=60 mL/min/1.73m 2BUN Creatinine Ratio9.5Fodfxrw2.68.5-10.1 mg/dLBilirubin Total0.40.2-1.0 mg/dL Aspartate Amino Bhhqruhbxqw417-57 U/LAlanine Dhyalxhkhqlrdtmm1304-65 U/LAlkaline Zbxstweyecw8145-344 U/LTotal Protein6.66.4-8.2 g/dLAlbumin Level3.23.4-5.0 g/dL Globulin3.4Albumin Globulin Ratio0.9Performing Lab:see noteML - [facility] LBCBC no Diff (Hemogram) Reviewed date:02/25/2025 08:32:18 AM Interpretation: Performing Lab: Notes/Report: [facility] ,White Blood Count6.24.0-11.0 10 3/uLRed Blood Count4.654.70-6.10 10 6/uL Ryqkxnlndr93.514.0-18.0 g/oJHcsiubednf10.542.0-54.0 %Mean Corpuscular Klfnnp34.9 80.0-94.0 fLMean Corpuscular Dpehktdzzp65.025.9-34.0 pgMean Corpuscular HGB Conc 34.229.9-35.2 g/dLRed Cell Distribution Width13.711.0-15.0 %Platelet Gwnao872 150-450 10 3/uLMean Platelet Yumyqd22.29.5-13.5 fLPerforming Lab:see note - [facility] LBCT angio chest Reviewed date:05/13/2024 12:17:06 PM Interpretation: Performing Lab: Notes/Report: Source Facility: [facility]-[address] [place] [address] [place] [address] CT Scan Report Signed Patient: LUIS SOLOMON MR#: [id number] : 1990 Acct:[id number] Age/Sex: 33 / M ADM Date: 05/13/24 Loc: MS 203-[address]: Maryanne Elkins M.D. Ordering Physician: Maryanne Elknis M.D. Date of Service: 05/13/24 Procedure(s): CT angio chest Accession Number(s): [id number] cc: NEETU BARBOZA [place] [address] Patient Name: LUIS SOLOMON MRN: [id number] date: 1990 Sex: M Assigned Patient Location: ER Current Patient Location: MS Accession/Order Number: [id number] Exam Date: 05/13/2024 09:30 Report Date: 05/13/2024 [...] Signed By: 05/13/24 1009 DD/ 1007 TD/TT: Train Conductor:DELFINO chest 1V Reviewed date:05/13/2024 08:46:42 AM Interpretation: Performing Lab: Notes/Report: Source Facility: [place] [address] [place] [address] XRay Report Signed Patient: LUIS SOLOMON MR#: [id number] : 1990 Acct:[id number] Age/Sex: 33 / M ADM Date: 05/13/24 Loc: ER Attending Dr: Ordering Physician: Mark Nieto M.D. Date of Service: 05/13/24 Procedure(s): XR chest 1V Accession Number(s): [id number] cc: NEETU BARBOZA ; Mark Nieto M.D. [place] [address] Patient Name: LUIS SOLOMON MRN: [facility]:[id number] date: 1990 Sex: M Assigned Patient Location: ER Current Patient Location: ER Accession/Order Number: [id number] Exam Date: 05/13/2024 07:30 Report Date: 05/13/2024 [...] Signed By: 05/13/24 0758 DD/ 0756 TD/TT: Train Conductor:ECG 12 lead Reviewed date:05/14/2024 10:25:57 AM Interpretation: Performing Lab: Notes/Report: Source Facility: [place] [address] [place] [address] Electrocardiograph Report Signed Patient: LUIS SOLOMON MR#: [id number] : 1990 Acct:[id number] Age/Sex: 33 / M ADM Date: 05/13/24 Loc: MS 203-[address]: Maryanne Elkins M.D. Ordering Physician: Mark Nieto M.D. 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1990 Requested By: NEETU BARBOZA Order Number: [id number] Reading MD: NITISH ZAMORA Measurements Intervals [place] [facility] Rate: 75 P: 30 MA: 122 QRS: 102 QRSD: 88 T: 72 QT: 350 QTc: 379 Interpretive Statements 1100 Sinus rhythm 1470 with occasional supraventricular premature complexes 2420 RSR (QR) in lead V1/V2, consistent with right ventricular conduction delay 7100 Abnormal right axis deviation 9140 abnormal rhythm ECG Compared to ECG 05/08/2024 07:52:54 Right-axis deviation now present Short MA interval no longer present Electronically Signed On 05-13-2024 19:31:11 EST by NITISH ZAMORA Dictated By: Nitish Zamora D.O. Signed By: 05/13/241930 DD/ 8 TD/TT: Train Conductor:Manual Differential Reviewed date:05/13/2024 08:46:42 AM Interpretation: Performing Lab: Notes/Report: [facility] ,Segmented Neutrophils % Egudlz30.043.0-75.0Lymphocytes Percent Rkriia89.020.5- 60.0 %Monocytes Percent Manual9.01.7-12.0 %Eosinophils Percent Manual0.00.9-7.0 %Basophils Percent Manual0.00.2-2.0 %Metamyelocytes %2.0Segmented Neut Absolute Manual9.231.4-6.5 10 3/uLLymphocytes Absolute Manual2.341.20-3.80 10 3/uL Monocytes Absolute Manual1.170.30-0.80 10 3/uLEosinophils Absolute Manual0.00 0.00-0.70 10 3/uLBasophils Abs Manual0.000.00-0.10 10 3/uLMetamyelocytes Absolute Manual0.26Performing Lab:see note - [facility] LBBlood Culture 2 Reviewed date:05/19/2024 08:28:39 AM Interpretation: Performing Lab: Notes/Report: [facility] ,Blood Culture 2See Below For Report Blood Culture 2 NG5D NO GROWTH AT 5 DAYS. Performing Lab:see note - [facility] LBBlood Culture 1 Reviewed date:05/19/2024 08:28:39 AM Interpretation: Performing Lab: Notes/Report: [facility] ,Blood Culture 1See Below For Report Blood Culture 1 NG5D NO GROWTH AT 5 DAYS. Performing Lab:see [facility] LBPROF CHEM 8 (BAS METB) Reviewed date:05/13/2024 08:46:42 AM Interpretation: Performing Lab: Notes/Report: [facility] ,Mdplgf142930-969 mmol/LPotassium3.43.5-5.1 mmol/NHnhwbkvm67116-458 mmol/LCarbon Hakktkf65.621.0-32.0 mmol/LAnion Gap10.4Naentfp2650-109 mg/dLBlood Urea Nitrogen 15.07.0-18.0 mg/dLCreatinine0.930.70-1.30 mg/dLEstimated GFR ( Cinthia>60 >=60 mL/min/1.73m 2Estimated GFR (Non- Sabine>60>=60 mL/min/1.73m 2BUN Creatinine Ratio16.9Owjvojc9.18.5-10.1 mg/dLPerforming Lab:see note - [facility] LBCBC AUTO DIFF Reviewed date:05/13/2024 08:46:42 AM Interpretation: Performing Lab: Notes/Report: [facility] ,White Blood Count13.04.0-11.0 10 3/uLRed Blood Count5.054.70-6.10 10 6/uL Syhepowfri76.814.0-18.0 g/nJIeohggvwem16.242.0-54.0 %Mean Corpuscular Lvtxnv18.5 80.0-94.0 fLMean Corpuscular Dacbalspnk20.325.9-34.0 pgMean Corpuscular HGB Conc 32.729.9-35.2 g/dLRed Cell Distribution Width12.711.0-15.0 %Platelet Azreo817 150-450 10 3/uLMean Platelet Duqpuf01.39.5-13.5 fLPerforming Lab:see note - [facility] LBPROF CHEM 8 (BAS METB) Reviewed date:05/11/2024 07:48:02 PM Interpretation: Performing Lab: Notes/Report: [facility] ,Fnsxwf907496-047 mmol/LPotassium3.93.5-5.1 mmol/LMvccgvxd56205-590 mmol/LCarbon Sbdqxyh55.821.0-32.0 mmol/LAnion Gap12.9Wrgnmcj94301-857 mg/dLBlood Urea Thrcvldf70.07.0-18.0 mg/dLCreatinine0.930.70-1.30 mg/dLEstimated GFR ( Cinthia>60>=60 mL/min/1.73m 2Estimated GFR (Non- Sabine>60>=60 mL/min/1.73m 2BUN Creatinine Ratio17.3Vwmymsm3.28.5-10.1 mg/dLPerforming Lab:see note - [facility] LBXR chest 1V Reviewed date:05/11/2024 07:48:02 PM Interpretation: Performing Lab: Notes/Report: Source Facility: [place] [address] [place] [address] XRay Report Signed Patient: LUIS SOLOMON MR#: [id number] : 1990 Acct:[id number] Age/Sex: 33 / M ADM Date: 05/08/24 Loc: MS 213-[address]: Nicola Wyatt D.O. Ordering Physician: Nicola Wyatt D.O. Date of Service: 05/10/24 Procedure(s): XR chest 1V Accession Number(s): [id number] cc: NEETU BARBOZA ; Valarie,Nicola Ramos [place] [id number] Patient Name: LUIS SOLOMON MRN: [id number] date: 1990 Sex: M Assigned Patient Location: MS Current Patient Location: MS Accession/Order Number: [id number] Exam Date: 05/10/2024 10:25 Report Date: 05/10/2024 [...] Signed By: 05/10/24 1115 DD/ 1113 TD/TT: Train Conductor:MAGNESIUM Reviewed date:05/11/2024 07:48:02 PM Interpretation: Performing Lab: Notes/Report: Comment ok to add to AM labs [facility] ,Magnesium1.91.8-2.4 mg/dLPerforming Lab:see noteML - [facility] LB PROF CHEM 8 (BAS METB) Reviewed date:05/11/2024 07:48:03 PM Interpretation: Performing Lab: Notes/Report: [facility] ,Faazqc651774-669 mmol/LPotassium4.23.5-5.1 mmol/NWgmgxbwa62165-880 mmol/LCarbon Ztxwhbm70.721.0-32.0 mmol/LAnion Gap14.2Kzlcely24103-425 mg/dLBlood Urea Zigbbxsk63.07.0-18.0 mg/dLCreatinine1.030.70-1.30 mg/dLEstimated GFR ( Cinthia>60>=60 mL/min/1.73m 2Estimated GFR (Non- Sabine>60>=60 mL/min/1.73m 2BUN Creatinine Ratio15.5Awzjvqy4.98.5-10.1 mg/dLPerforming Lab:see noteML - [facility] LBCBC AUTO DIFF Reviewed date:05/11/2024 07:48:03 PM Interpretation: Performing Lab: Notes/Report: [facility] ,White Blood Count13.94.0-11.0 10 3/uLRed Blood Count4.734.70-6.10 10 6/uL Wgqdtwsokh37.914.0-18.0 g/jHLbydgbgqol51.542.0-54.0 %Mean Corpuscular Rdeonj88.9 80.0-94.0 fLMean Corpuscular Eqlhbhrpfi00.425.9-34.0 pgMean Corpuscular HGB Conc 32.729.9-35.2 g/dLRed Cell Distribution Width12.811.0-15.0 %Platelet Rinln663 150-450 10 3/uLMean Platelet Uhtczf73.89.5-13.5 fLNeutrophils Percent Auto92.9 43.0-75.0 %Lymphocytes Percent Auto4.920.5-60.0 %Monocytes Percent Auto1.71.7- 12.0 %Eosinophils Percent Auto0.00.9-7.0 %Basophils Percent Auto0.10.2-2.0 % Immature Granulocytes Pct Auto0.40.0-0.5 %Neutrophils Absolute Auto12.91.4-6.5 10 3/uLLymphocytes Absolute Auto0.71.2-3.8 10 3/uLMonocytes Absolute Auto0.20.3- 0.8 10 3/uLEosinophils Absolute Auto0.00.0-0.7 10 3/uLBasophils Absolute Auto0.0 0.0-0.1 10 3/uLImmature Granulocytes Abs Auto0.060.00-0.03 10 3/uLPerforming Lab:see noteML - [facility] LBLACTATE or LACTIC ACID Reviewed date:05/08/2024 11:23:40 AM Interpretation: Performing Lab: Notes/Report: [facility] ,Lactate/Lactic Acid1.10.4-2.0 mmol/LPerforming Lab:see noteML - [facility] LBXR chest 1V Reviewed date:05/08/2024 09:48:13 AM Interpretation: Performing Lab: Notes/Report: Source Facility: [facility]-[address] [address] XRay Report Signed Patient: LUIS SOLOMON MR#: [id number] : 1990 Acct:[id number] Age/Sex: 33 / M ADM Date: 05/08/24 Loc: ER Attending Dr: Ordering Physician: Comfort Costa Date of Service: 05/08/24 Procedure(s): XR chest 1V Accession Number(s): [id number] cc: NEETU BARBOZA ; Comfort Costa [place] [address] Patient Name: LUIS SOLOMON MRN: [id number] date: 1990 Sex: M Assigned Patient Location: ER Current Patient Location: ED.MAIN Accession/Order Number: [id number] Exam Date: 05/08/2024 08:07 Report Date: 05/08/2024 [...] Quiñones M.D. Signed By: 05/08/2457 DD/ TD/TT: Train Conductor:Troponin I High Sensitivity Reviewed date:05/08/2024 09:48:13 AM Interpretation: Performing Lab: Notes/Report: [facility] ,Troponin I High Sensitivity<4.04.0-76.1 pg/mL CUT-OFF POINTS HAVE BEEN ESTABLISHED BASED ON THE FOURTH UNIVERSAL DEFINITION OF MYOCARDIAL INFARCTION. THE UPPER REFERENCE LIMIT (URL) OF TROPONIN, DEFINED THE 99TH PERCENTILE OF cTnI DISTRIBUTION IN A REFERENCE POPULATION, HAS BEEN CONFIRMED THE DECISION THRESHOLD FOR [place] DIAGNOSIS. 99TH PERCENTILE = 76.2 PG/ML NOTE: HIGH-SENSITIVITY TROPONIN ASSAY IS NOT INTENDED TO BE USED IN ISOLATION BUT SHOULD BE INTERPRETED IN CONJUNCTION WITH OTHER DIAGNOSTIC AND CLINICAL INFORMATION. Performing Lab:see noteML - [facility] LBBlood Culture 2 Reviewed date:05/13/2024 04:18:23 PM Interpretation: Performing Lab: Notes/Report: [facility] ,Blood Culture 2See Below For Report Blood Culture 2 NG5D NO GROWTH AT 5 DAYS. Performing Lab:see noteML - [facility] LBBlood Culture 1 Reviewed date:05/13/2024 04:18:23 PM Interpretation: Performing Lab: Notes/Report: [facility] ,Blood Culture 1See Below For Report Blood Culture 1 NG5D NO GROWTH AT 5 DAYS. Performing Lab:see noteML - [facility] LBPROF 14(COMP METB) Reviewed date:05/08/2024 09:48:13 AM Interpretation: Performing Lab: Notes/Report: [facility] ,Gfjqjf303449-703 mmol/LPotassium3.83.5-5.1 mmol/LAubljtcw71086-627 mmol/LCarbon Vfocwum84.521.0-32.0 mmol/LAnion Gap16.3Sqjeykp8838-930 mg/dLBlood Urea Nitrogen 13.07.0-18.0 mg/dLCreatinine1.000.70-1.30 mg/dLEstimated GFR ( Cinthia>60 >=60 mL/min/1.73m 2Estimated GFR (Non- Sabine>60>=60 mL/min/1.73m 2BUN Creatinine Ratio13.9Pgnfoer7.98.5-10.1 mg/dLBilirubin Total0.40.2-1.0 mg/dL Aspartate Amino Oftjculzhzl0122-19 U/LAlanine Ezdyasaoffielcee9479-85 U/L Alkaline Toznirzfuvr73135-729 U/LTotal Protein7.36.4-8.2 g/dLAlbumin Level3.9 3.4-5.0 g/dLGlobulin3.4Albumin Globulin Ratio1.1Performing Lab:see note - [facility] LBLACTATE or LACTIC ACID Reviewed date:05/08/2024 09:48:13 AM Interpretation: Performing Lab: Notes/Report: [facility] ,Lactate/Lactic Acid2.30.4-2.0 mmol/LRESULTS CALLED TO DR COSTA/ERPerforming Lab: see note - [facility] LBDRUG SCREEN RAPID (URINE) Reviewed date:08/10/2024 03:10:26 PM Interpretation: Performing Lab: Notes/Report: [facility] ,Cannabinoid Screen UrinePOSITIVENEGATIVEPhencyclidine Screen UrineNEGATIVE NEGATIVECocaine Screen UrineNEGATIVENEGATIVEMethamphetamines Screen Urine NEGATIVENEGATIVEOpiate Screen UrinePOSITIVENEGATIVEAmphetamine Screen Urine NEGATIVENEGATIVEBenzodiazepines Screen UrineNEGATIVENEGATIVETricyclic Antidepressant UrineNEGATIVENEGATIVEMethadone Screen UrineNEGATIVENEGATIVE Barbiturates Screen UrineNEGATIVENEGATIVEOxycodone Screen UrineNEGATIVENEGATIVE Buprenorphine Screen UrineNEGATIVENEGATIVE DRUG CLASS TEST SYSTEM CUT-OFF CONCENTRATIONS ARE FOLLOWS: AMP (Amphetamine): 500 ng/mL BAR (Barbiturates): 200 ng/mL BZO (Benzodiazepines): 150 ng/mL BUP (Buprenorphine): 10 ng/mL ONOFRE (Cocaine): 150 ng/mL mAMP (Methamphetamine): 500 ng/mL MTD (Methadone): 200 ng/mL OPI (Opiates): 100 ng/mL OXY (Oxycodone): 100 ng/mL PCP (Phencyclidine): 25 ng/mL THC (Cannabinoids): 50 ng/mL TCA (Trycyclic Antidepressants): 300 ng/mL Performing Lab:see noteML - [facility] LBPROF CHEM 8 (BAS METB) Reviewed date:08/10/2024 03:10:26 PM Interpretation: Performing Lab: Notes/Report: [facility] ,Leogob122892-934 mmol/LPotassium4.23.5-5.1 mmol/NEcummkec74923-118 mmol/LCarbon Efxpwfd39.521.0-32.0 mmol/LAnion Gap8.3Yrbkipt18451-246 mg/dLBlood Urea Nitrogen 17.07.0-18.0 mg/dLCreatinine0.900.70-1.30 mg/dLEstimated GFR ( Cinthia>60 >=60 mL/min/1.73m 2Estimated GFR (Non- Sabine>60>=60 mL/min/1.73m 2BUN Creatinine Ratio18.8Thzdtwl6.58.5-10.1 mg/dLPerforming Lab:see noteML - [facility] LBCBC AUTO DIFF Reviewed date:08/10/2024 03:10:26 PM Interpretation: Performing Lab: Notes/Report: [facility] ,White Blood Count15.24.0-11.0 10 3/uLRed Blood Count4.774.70-6.10 10 6/uL Myprptutad66.614.0-18.0 g/dAQktuxftupi24.642.0-54.0 %Mean Corpuscular Efnxyq36.2 80.0-94.0 fLMean Corpuscular Tocmonddix25.525.9-34.0 pgMean Corpuscular HGB Conc 32.729.9-35.2 g/dLRed Cell Distribution Width13.011.0-15.0 %Platelet Hmcir937 150-450 10 3/uLMean Platelet Edvfdk62.39.5-13.5 fLNeutrophils Percent Auto88.7 43.0-75.0 %Lymphocytes Percent Auto5.520.5-60.0 %Monocytes Percent Auto4.71.7- 12.0 %Eosinophils Percent Auto0.30.9-7.0 %Basophils Percent Auto0.10.2-2.0 % Immature Granulocytes Pct Auto0.70.0-0.5 %Neutrophils Absolute Auto13.51.4-6.5 10 3/uLLymphocytes Absolute Auto0.81.2-3.8 10 3/uLMonocytes Absolute Auto0.70.3- 0.8 10 3/uLEosinophils Absolute Auto0.00.0-0.7 10 3/uLBasophils Absolute Auto0.0 0.0-0.1 10 3/uLImmature Granulocytes Abs Auto0.110.00-0.03 10 3/uLPerforming Lab:see noteML - [facility] LBCBC AUTO DIFF Reviewed date:08/07/2024 08:50:25 AM Interpretation: Performing Lab: Notes/Report: [facility] ,White Blood Count17.64.0-11.0 10 3/uLRed Blood Count4.704.70-6.10 10 6/uL Ihsjsbmveq32.514.0-18.0 g/fQMaomfyimjp35.042.0-54.0 %Mean Corpuscular Laztoc74.2 80.0-94.0 fLMean Corpuscular Tymkohqaxi60.725.9-34.0 pgMean Corpuscular HGB Conc 32.929.9-35.2 g/dLRed Cell Distribution Width13.211.0-15.0 %Platelet Wkylw359 150-450 10 3/uLMean Platelet Ksghit93.89.5-13.5 fLNeutrophils Percent Auto93.4 43.0-75.0 %Lymphocytes Percent Auto2.820.5-60.0 %Monocytes Percent Auto2.91.7- 12.0 %Eosinophils Percent Auto0.40.9-7.0 %Basophils Percent Auto0.10.2-2.0 % Immature Granulocytes Pct Auto0.40.0-0.5 %Neutrophils Absolute Auto16.51.4-6.5 10 3/uLLymphocytes Absolute Auto0.51.2-3.8 10 3/uLMonocytes Absolute Auto0.50.3- 0.8 10 3/uLEosinophils Absolute Auto0.10.0-0.7 10 3/uLBasophils Absolute Auto0.0 0.0-0.1 10 3/uLImmature Granulocytes Abs Auto0.070.00-0.03 10 3/uLPerforming Lab:see noteML - [facility] LBLACTATE or LACTIC ACID Reviewed date:08/10/2024 03:10:26 PM Interpretation: Performing Lab: Notes/Report: [facility] ,Lactate/Lactic Acid1.90.4-2.0 mmol/LPerforming Lab:[facility]Hol[facility] LBMAGNESIUM Reviewed date:08/10/2024 03:10:26 PM Interpretation: Performing Lab: Notes/Report: Comment ok to add to ER labs [facility] ,Magnesium2.81.8-2.4 mg/dLPerforming Lab:see note - [facility] LB Blood Culture 1 Reviewed date:08/18/2024 01:51:36 PM Interpretation: Performing Lab: Notes/Report: LEFT HAND [facility] ,Blood Culture 1See Below For Report Blood Culture 1 NG5D NO GROWTH AT 5 DAYS.^NO GROWTH AT 5 DAYS. Performing Lab:see note - [facility] LBBlood Culture 2 Reviewed date:08/18/2024 01:51:36 PM Interpretation: Performing Lab: Notes/Report: RIGHT AC [facility] ,Blood Culture 2See Below For Report Blood Culture 2 NG5D NO GROWTH AT 5 DAYS.^NO GROWTH AT 5 DAYS. Performing Lab:see note - [facility] LBCBC AUTO DIFF Reviewed date:08/10/2024 03:10:25 PM Interpretation: Performing Lab: Notes/Report: [facility] ,White Blood Count13.34.0-11.0 10 3/uLRed Blood Count4.514.70-6.10 10 6/uL Cwwctvphyj97.114.0-18.0 g/uEZmluvjydjc26.342.0-54.0 %Mean Corpuscular Bsejzr73.1 80.0-94.0 fLMean Corpuscular Jdmqwodzop65.025.9-34.0 pgMean Corpuscular HGB Conc 33.329.9-35.2 g/dLRed Cell Distribution Width13.011.0-15.0 %Platelet Ifrdr798 150-450 10 3/uLMean Platelet Trqpms31.59.5-13.5 fLNeutrophils Percent Auto89.5 43.0-75.0 %Lymphocytes Percent Auto4.820.5-60.0 %Monocytes Percent Auto3.21.7- 12.0 %Eosinophils Percent Auto1.10.9-7.0 %Basophils Percent Auto0.20.2-2.0 % Immature Granulocytes Pct Auto1.20.0-0.5 %Neutrophils Absolute Auto11.91.4-6.5 10 3/uLLymphocytes Absolute Auto0.61.2-3.8 10 3/uLMonocytes Absolute Auto0.40.3- 0.8 10 3/uLEosinophils Absolute Auto0.10.0-0.7 10 3/uLBasophils Absolute Auto0.0 0.0-0.1 10 3/uLImmature Granulocytes Abs Auto0.160.00-0.03 10 3/uLPerforming Lab:see noteML - [facility] LBMAGNESIUM Reviewed date:08/10/2024 03:10:25 PM Interpretation: Performing Lab: Notes/Report: [facility] ,Magnesium2.31.8-2.4 mg/dLPerforming Lab:see noteML - [facility] LB PROF 14(COMP METB) Reviewed date:08/10/2024 03:10:25 PM Interpretation: Performing Lab: Notes/Report: [facility] ,Xvskpk102564-334 mmol/LPotassium4.23.5-5.1 mmol/VBqlalvxy66978-802 mmol/LCarbon Gdojqag73.021.0-32.0 mmol/LAnion Gap9.2Ojidrbf26569-157 mg/dLBlood Urea Nitrogen 19.07.0-18.0 mg/dLCreatinine0.810.70-1.30 mg/dLEstimated GFR ( Cinthia>60 >=60 mL/min/1.73m 2Estimated GFR (Non- Sabine>60>=60 mL/min/1.73m 2BUN Creatinine Ratio23.7Viixdvq0.08.5-10.1 mg/dLBilirubin Total0.40.2-1.0 mg/dL Aspartate Amino Dregvtkgfxw284-30 U/LAlanine Dzdehmgkhschzibz6768-53 U/LAlkaline Xeutxrrzmfc5576-791 U/LTotal Protein5.46.4-8.2 g/dLAlbumin Level2.53.4-5.0 g/dL Globulin2.9Albumin Globulin Ratio0.9Performing Lab:see noteML - [facility] LBVANCOMYCIN TROUGH Reviewed date:08/10/2024 03:10:25 PM Interpretation: Performing Lab: Notes/Report: [facility] ,Vancomycin Keavqr00.05.0-20.0 ug/mLPerforming Lab:see noteML - [facility] LBMAGNESIUM Reviewed date:08/11/2024 12:58:08 PM Interpretation: Performing Lab: Notes/Report: [facility] ,Magnesium2.21.8-2.4 mg/dLPerforming Lab:see noteML - [facility] LB INFLUENZA A AND B AG Reviewed date:08/11/2024 08:09:05 PM Interpretation: Performing Lab: Notes/Report: [facility] ,Influenza Virus A AntigenNegative Negative for Flu A protein antigen. Infection due to Flu A cannot be ruled out. Flu A antigen in the sample may be below the detection limit of the test. Influenza Virus B AntigenNegative Negative for Flu B protein antigen. Infection due to Flu B cannot be ruled out. Flu B antigen in the sample may be below the detection limit of the test. Performing Lab:see noteML - [facility] LIBAYC-OtB-4 Ag* Reviewed date:08/11/2024 08:09:05 PM Interpretation: Performing Lab: Notes/Report: [facility] ,SARS-CoV-2 AgNEGATIVENEGATIVE This test has not been FDA cleared [...] terminated or authorization is revoked sooner. Performing Lab:see noteML - [facility] LBVANCOMYCIN TROUGH Reviewed date:08/12/2024 01:31:23 PM Interpretation: Performing Lab: Notes/Report: [facility] ,Vancomycin Giegqs38.45.0-20.0 ug/mLPerforming Lab:see noteML - [facility] LBWhite Blood Cells Reviewed date:08/18/2024 01:51:36 PM Interpretation: Performing Lab: Notes/Report: [facility] ,White Blood CellsSee Below For Report White Blood Cells White Blood CellsNone seen White Blood Cells Performing Lab:see note - [facility] LBEpithelial Cells Reviewed date:08/18/2024 01:51:36 PM Interpretation: Performing Lab: Notes/Report: [facility] ,Epithelial CellsSee Below For Report Epithelial Cells Few Performing Lab:see note - [facility] LBResult 1 Reviewed date:08/18/2024 01:51:36 PM Interpretation: Performing Lab: Notes/Report: [facility] ,Result 1See Below For Report Result 1 Small amount of yeast seen. Performing Lab:see note - [facility] LBResult 2 Reviewed date:08/18/2024 01:51:36 PM Interpretation: Performing Lab: Notes/Report: [facility] ,Result 2See Below For Report Result 2 Few gram positive cocci Performing Lab:see note - [facility] LBResult 3 Reviewed date:08/18/2024 01:51:36 PM Interpretation: Performing Lab: Notes/Report: [facility] ,Result 3See Below For Report Result 3 *ABNORMAL* Result 3Rare gram negative rods. Result 3 *ABNORMAL* Performing Lab:see note - [facility] LBResult 4 Reviewed date:08/18/2024 01:51:36 PM Interpretation: Performing Lab: Notes/Report: [facility] ,Result 4See Below For Report Result 4 INVESTMENT TRADER Performing Lab:see note - [facility] LBGram Stain Evaluation Reviewed date:08/18/2024 01:51:36 PM Interpretation: Performing Lab: Notes/Report: [facility] ,Gram Stain EvaluationSee Below For Report Gram Stain Evaluation This specimen is of good quality and is acceptable for routine Gram Stain Evaluationbacterial culture. Gram Stain Evaluation This specimen is of good quality and is acceptable for routine Performing Lab:see noteLC - [facility] LBLower Respiratory Culture Reviewed date:08/18/2024 01:51:36 PM Interpretation: Performing Lab: Notes/Report: [facility] ,Lower Respiratory CultureSee Below For Report Lower Respiratory Culture WILL FOLLOW O:CANALB Isolated Lower Respiratory CultureOrganism: Madhavi albicans : Lower Respiratory Culture WILL FOLLOW O:CANALB Isolated Lower Respiratory Culture*ABNORMAL* Lower Respiratory Culture WILL FOLLOW O:CANALB Isolated Lower Respiratory CultureLight growth Lower Respiratory Culture WILL FOLLOW O:CANALB Isolated Lower Respiratory CultureCandida albicans Lower Respiratory Culture WILL FOLLOW O:CANALB Isolated Lower Respiratory CultureSee Below For Report Lower Respiratory Culture WILL FOLLOW O:CANALB Isolated Lower Respiratory CulturePerformed at: CB - [facility] [place] Lower Respiratory Culture WILL FOLLOW O:CANALB Isolated Lower Respiratory [address] [place], [place] [id number] Lower Respiratory Culture WILL FOLLOW O:CANALB Isolated Lower Respiratory CultureLab Director: Yonny Pa PhD, Phone: [phone] Lower Respiratory Culture WILL FOLLOW O:CANALB Isolated Performing Lab:see note LC - [facility] LB SEE 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 CBC AUTO DIFF Reviewed date:08/18/2024 01:51:36 PM Interpretation: Performing Lab: Notes/Report: [facility] ,White Blood Count16.04.0-11.0 10 3/uLRed Blood Count4.734.70-6.10 10 6/uL Ahjldakzwd68.614.0-18.0 g/tBDxonmvtfae07.342.0-54.0 %Mean Corpuscular Xawumc10.2 80.0-94.0 fLMean Corpuscular Mkxdffxlin15.825.9-34.0 pgMean Corpuscular HGB Conc 33.729.9-35.2 g/dLRed Cell Distribution Width12.811.0-15.0 %Platelet Zaofd088 150-450 10 3/uLMean Platelet Kvjccs27.29.5-13.5 fLNeutrophils Percent Auto88.3 43.0-75.0 %Lymphocytes Percent Auto3.320.5-60.0 %Monocytes Percent Auto5.51.7- 12.0 %Eosinophils Percent Auto0.10.9-7.0 %Basophils Percent Auto0.10.2-2.0 % Immature Granulocytes Pct Auto2.70.0-0.5 %Neutrophils Absolute Auto14.11.4-6.5 10 3/uLLymphocytes Absolute Auto0.51.2-3.8 10 3/uLMonocytes Absolute Auto0.90.3- 0.8 10 3/uLEosinophils Absolute Auto0.00.0-0.7 10 3/uLBasophils Absolute Auto0.0 0.0-0.1 10 3/uLImmature Granulocytes Abs Auto0.430.00-0.03 10 3/uLPerforming Lab:see note - [facility] LBPROF CHEM 8 (BAS METB) Reviewed date:08/13/2024 07:49:50 PM Interpretation: Performing Lab: Notes/Report: [facility] ,Liwbxc416830-394 mmol/LPotassium4.13.5-5.1 mmol/WQaejhtsu27244-915 mmol/LCarbon Cypwoqy53.121.0-32.0 mmol/LAnion Gap12.5Kucvqkj81457-683 mg/dLBlood Urea Nfqnqmyr40.07.0-18.0 mg/dLCreatinine0.810.70-1.30 mg/dLEstimated GFR ( Cinthia>60>=60 mL/min/1.73m 2Estimated GFR (Non- Sabine>60>=60 mL/min/1.73m 2BUN Creatinine Ratio27.8Etmbihb5.08.5-10.1 mg/dLPerforming Lab:see note - [facility] LBCBC AUTO DIFF Reviewed date:02/24/2025 12:59:19 PM Interpretation: Performing Lab: Notes/Report: [facility] ,White Blood Count11.44.0-11.0 10 3/uLRed Blood Count5.184.70-6.10 10 6/uL Sxuarqqrka89.014.0-18.0 g/rQPrcjkwvbdq58.642.0-54.0 %Mean Corpuscular Mbejhv09.2 80.0-94.0 fLMean Corpuscular Vgohrkzigo33.025.9-34.0 pgMean Corpuscular HGB Conc 34.429.9-35.2 g/dLRed Cell Distribution Width13.711.0-15.0 %Platelet Hyqym296 150-450 10 3/uLMean Platelet Ifipqb56.39.5-13.5 fLNeutrophils Percent Auto81.9 43.0-75.0 %Lymphocytes Percent Auto7.320.5-60.0 %Monocytes Percent Auto9.71.7- 12.0 %Eosinophils Percent Auto0.10.9-7.0 %Basophils Percent Auto0.70.2-2.0 % Immature Granulocytes Pct Auto0.30.0-0.5 %Neutrophils Absolute Auto9.31.4-6.5 10 3/uLLymphocytes Absolute Auto0.81.2-3.8 10 3/uLMonocytes Absolute Auto1.10.3-0.8 10 3/uLEosinophils Absolute Auto0.00.0-0.7 10 3/uLBasophils Absolute Auto0.10.0- 0.1 10 3/uLImmature Granulocytes Abs Auto0.030.00-0.03 10 3/uLPerforming Lab:see noteML - [facility] LBINFLUENZA A AND B AG Reviewed date:02/25/2025 08:32:18 AM Interpretation: Performing Lab: Notes/Report: [facility] ,Influenza Virus A AntigenNegative Negative for Flu A protein antigen. Infection due to Flu A cannot be ruled out. Flu A antigen in the sample may be below the detection limit of the test. Influenza Virus B AntigenNegative Negative for Flu B protein antigen. Infection due to Flu B cannot be ruled out. Flu B antigen in the sample may be below the detection limit of the test. Performing Lab:see noteML - [facility] LBRSV Reviewed date:02/25/2025 08:32:18 AM Interpretation: Performing Lab: Notes/Report: [facility] ,Respiratory Syncytial VirusNot DetectedNOT DETECTEPerforming Lab:see noteML - [facility] AQICMR-TdI-6 Ag* Reviewed date:02/25/2025 08:32:18 AM Interpretation: Performing Lab: Notes/Report: [facility] ,SARS-CoV-2 AgNEGATIVENEGATIVE This test has not been FDA cleared [...] terminated or authorization is revoked sooner. Performing Lab:see noteML - [facility] Reason For Referral No Information Medications Medication SIG (Take, Route, Frequency, Duration) Notes Start Date End Date Status Albuterol Sulfate (2.5 MG/3ML) 0.083% 3 mL as needed Inhalation every 6 hrs; Duration: 30 days ActiveAsmanex HFA 100 MCG/ACT2 puffs in the evening Inhalation Once a dayActive Albuterol Sulfate HFA 108 (90 Base) MCG/ACT1-2 puff as needed Inhalation every 4 hrs; Duration: 30 daysActivePantoprazole Sodium 40 MG1 tablet Orally bidActive Oxygen -as directed dx asthma Daily at night; Duration: 30 daysD/C O2 please greens picker machine.05/31/2016UnknownNebulizer -Use as directed with albuterol DX: J45.5015Active Immunizations Vaccine Route Administration Date Status Comme nts Flu, (22468) -historic- Whole Unknown 03/20/2015 Admini stered Flu, (52035) -historic- GrytiLodeoik15/03/2025AdministeredFlu, Fluzone (71561) 6 mos+, single-dose syringe/vial (9334-0905)Glragqu8703/16/2016AdministeredFlu, Fluzone (28058) 6 mos+, single-dose syringe/vial (6506-0142)Idswmrn6304/02/2019 AdministeredFlu, CyzjjubwkmhAetgwdc40/28/2016AdministeredHep B, Adult, Dose 1 Lzesboq4003/26/2007dministeredHep B, Adult, Dose 9Uasutyv91/30/2007dministered Hep B, Adult, Dose 5Ivkcqzu72/29/2008dministeredMeningococcal (Menomune)Unknown 03/26/2007dministeredPneumococcal (Pneumovax 23)Cimxknj0712/14/2015Administered Pneumococcal (Pneumovax 23)Hmdulmi8011/10/2016AdministeredPneumococcal (Prevnar 13)Xeyetuj6603/02/2016AdministeredTdap (Boostrix)Deikylj88/18/2022AdministeredTdap (Boostrix)Jeoixal34/04/2024Administered Social History Tobacco Use: Social History Observation Description Date Details (start date - stop date) Former Smoker NA - NA Tobacco Use/Smoking Question Answer Notes Patient is a former smoker How long has it been since you last smoked?1-3 monthsAUDIT-C (Standard) Question Answer Notes Did you have a drink containing alcohol in the p ast year? No Hapaah8CwrabkzpmomglkGmhwsqom Problems Problem Type SNOMED Code ICD Code Onset Dates Problem Status W/U Status Risk Notes Problem Malnutrition of mild degree (Hassan: 75% to less than 90% of standard weight) (28255292) Mild protein-calorie malnutrition (E44.1) ActiveconfirmedProblemCannabis abuse (76775860)Cannabis abuse, uncomplicated (F12.10)ActiveconfirmedProblemPrimary insomnia (8356686)Primary insomnia (F51.01)ActiveconfirmedProblemAcute exacerbation of bronchiectasis (202555845) Bronchiectasis with acute lower respiratory infection (J47.0)Activeconfirmed ProblemAcute exacerbation of bronchiectasis (109541939)Bronchiectasis with (acute) exacerbation (J47.1)ActiveconfirmedProblemChronic respiratory failure (53540000)Chronic respiratory failure with hypoxia (J96.11)Activeconfirmed TtfkqglAoyij-yl-hircqmo hypoxemic respiratory failure (15662925667066314)Acute and chronic respiratory failure with hypoxia (J96.21)ActiveconfirmedProblemPain of right shoulder region (finding) (7695173662)Pain in right shoulder (M25.511) 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 (184983041)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 confirmedProblemShortness of breath (682210650)Shortness of breath (R06.02) ActiveconfirmedProblemAsthma (280196305)Asthma (J45.909)ActiveconfirmedProblem COPD - Chronic obstructive pulmonary disease (54098633)COPD (chronic obstructive pulmonary disease) (J44.9)ActiveconfirmedProblemGastroesophageal reflux disease (746017720)GERD (gastroesophageal reflux disease) (K21.9)ActiveconfirmedProblem Anxiety (22076763)Anxiety (F41.9)ActiveconfirmedProblemPneumonia (062666906) Pneumonia (J18.9)ActiveconfirmedProblemDepression (174256045)Depression (F32.9) ActiveconfirmedProblemDyspnea (666110814)Dyspnea (R06.00)ActiveconfirmedProblem Insomnia (648746827)Insomnia (G47.00)ActiveconfirmedProblemCannabis abuse (45748430)Marijuana abuse (F12.10)ActiveconfirmedProblemIrritable bowel syndrome (98495932)IBS (irritable bowel syndrome) (K58.9)ActiveconfirmedProblem Generalized anxiety disorder (19582400)SHAWNEE (generalized anxiety disorder) (F41.1)ActiveconfirmedProblemBronchitis (60072235)Bronchitis (J40)Active confirmedProblemExacerbation of asthma (551063692)Asthma exacerbation (J45.901) ActiveconfirmedProblemGastroesophageal reflux disease with esophagitis (954148372)Gastroesophageal reflux disease with esophagitis (K21.0)Active confirmedProblemAcute exacerbation of chronic obstructive airways disease (068377532)COPD exacerbation (J44.1)ActiveconfirmedProblemHome oxygen therapy (913732389)On home oxygen therapy (Z99.81)ActiveconfirmedProblemBronchiectasis (97202864)Bronchiectasis (J47.9)ActiveconfirmedProblemMixed anxiety and depressive disorder (409702383)Depression with anxiety (F41.8)Activeconfirmed ProblemUncomplicated severe persistent asthma (423341870)Uncomplicated severe persistent asthma (J45.50)ActiveconfirmedProblemChronic hypoxemic respiratory failure (408668716)Chronic hypoxemic respiratory failure (J96.11)Activeconfirmed ProblemAspiration pneumonitis (146684230)Aspiration pneumonitis (J69.0)Active confirmedProblemExacerbation of asthma (971011205)Acute asthma exacerbation (J45.901)ActiveconfirmedProblemAcute exacerbation of bronchiectasis (110111078) Bronchiectasis with acute exacerbation (J47.1)ActiveconfirmedProblemPanic attack (460216433)Panic attack (F41.0)ActiveconfirmedProblemGastro-esophageal reflux disease (845097662)Gastro-esophageal reflux disease (K21.9)Activeconfirmed ProblemAcute exacerbation of bronchiectasis (088618641)Acute exacerbation of bronchiectasis (J47.1)ActiveconfirmedProblemLeukocytosis (480736984)Elevated WBCs (D72.829)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)ActiveconfirmedProblemMixed anxiety and depressive disorder (784265640) Anxiety and depression (F41.8)ActiveconfirmedProblemNondependent alcohol abuse in remission (440141570)Alcohol abuse, in remission (F10.11)Activeconfirmed ProblemMalnutrition of mild degree (Hassan: 75% to less than 90% of standard weight) (92367498)Mild protein malnutrition (E44.1)ActiveconfirmedProblemOpioid dependence in remission (036217228)Narcotic dependence, in remission (F11.21) ActiveconfirmedProblemPatient's noncompliance with dietary regimen for other reason (Z91.118)ActiveconfirmedProblemNoncompliance with treatment (finding) (9306540)Noncompliance with treatment plan (Z91.199)Activeconfirmed Vital Signs Temperature 97.4 degrees Fahrenheit 03/03/2025 Apuaktoe88 %03/03/2025lood pressure dwsstupqv21 mm Hg03/03/20256255Yttrox68.75 in 03/03/2025lood pressure mm Hg03/03/20253922Hjxlvc057.8 lbs1MI 22.1 kg/m203/03/2025 Encounters Encounter Location Date Provider Diagnosis [address] [place] [place] [address] 12/31/2024 Neetu Barboza Anxiety F41.9 [address] [place] [place] [address] 02/16/2025 Neetu Barboza Wellness examination Z00.00 [facility] [address] [place] [place] [address] 03/03/2025 Neetu Barboza [place] [address] [place] [address] 03/04/2025Pamela CramerBronchiectasis with acute exacerbation J47.1BBradley [address] [place] [place] [address]/ [facility] [place] [place] [address]/Pamela AlvertoHealthsouth [facility] [place] [place] [address]/[facility] [address] [place] [facility] [place] [address]/Pamela CramerChronic respiratory failure with hypoxia J96.11[facility] [place] [place] [address]/Pamela CramerChronic hypoxemic respiratory failure J96.11 and Insomnia G47.00[facility] [address] [place] [place] [address]/11/2024Pamela Alverto Bronchiectasis with acute exacerbation J47.1[facility] [place] [place] [address]/03/2025Pamela CramerContusion of ribs S20.219A and H/O fall Z91.81 Assessments Encounter Date Diagnosis (ICD Code) Assessment Notes Treatment Notes Treatment Clinical Notes Section Notes 07/08/2024 Contusion of ribs (ICD-10 - S20. 219A) ok for OWN two ER visits reviewed pain with movement needs rest, nsaids 07/08/2024H/O fall (ICD-10 - Z91.81)5Chronic respiratory failure with hypoxia (ICD-10 - J96.11) feeling better from last hospital visit continue inhalers, fu pulm has CT lungs this week stop smoking encouraged 01/23/2025hronic hypoxemic respiratory failure (ICD-10 - J96.11) [facility] is considering filing disability 01/23/2025Insomnia (ICD-10 - G47.00)03/03/2025ronchiectasis with acute exacerbation (ICD-10 - J47.1) continue discharge meds monitor pulse ox if worsens needs [facility] karyna no smoking 12/31/2024nxiety (ICD-10 - F41.9)02/16/2025Wellness examination (ICD-10 - Z00.00)03/04/2025ronchiectasis with acute exacerbation (ICD-10 - J47.1) Plan Of Treatment Pending Test Test Name Order Date CMP (COMPLETE METABOLIC PANEL) 4 CBC WITH DIFF 09/18/2023 IGE 04/12/2016 IGG 04/12/2016 IGG SUBCLASSES 04/12/2016 CBC 02/16/2025 PFT w/Bronchodillator and Body Box-perfo rmed 04/12/2016 CMP - Comprehensive Metabolic Panel 01/27 GLYCOHEMOGLOBIN A1C 02/16/2025 LIPID PROFILE 02/16/2025 THYROID PANEL (T4/TSH/FREE T3) Next Appt Details Provider Name:Neetu nickerson, 06/04/2025 01:00:00 PM, [address] [facility] [address], [place], [address], Insurance Providers Payer Name Payer Address Payer Phone Subscriber Number Group Number Insured Name Patient Relationship to Insured Coverage Start Date Coverage End Date [employer]ICARE [address] [address] [place] [address] [id number] Luis Solomon Self - patient is the insured 4 4 [employer] MED[employer] ADV PLAN [address] [place] [address] [id number] 5 [id number] Luis Solomon Self - patient is the insured 5 MEDICAID [place] [address] OFFICE OF [facility] [place] [id number] [phone], TroySelf - patient is the [id number] 2011 Medical (General) History Medical History History ICD [...] reflux disease K21.9 Surgical History Surgery Date(Month/Year) EGD 11/18 EGD- esophagus stretching 11/2024 Facial Reconstruction Rt side. Metal larry te rt side of face TEF at birthHospitalization History Reason Date(Month/Year) ABD Pain - Annette another stay for Pneumo martha 11/2024 Pneumonia 2024 Pneumonia 2023 multiple times for resp issues Resp /25
[2025-04-05] MEDS: ONDANSETRON 4 MG RAPDIS TABLET SL (11:50)
[2025-04-05 11:53] LABS: Hematocrit 44.3 % (42.0-54.0); Hemoglobin 15.4 g/dL (14.0-18.0); Immature Granulocytes Abs Auto 0.02 10^3/uL (0.00-0.03); Immature Granulocytes Pct Auto 0.2 % (0.0-0.5); Lymphocytes Absolute Auto 1.2 10^3/uL (1.2-3.8); Mean Corpuscular HGB Conc 34.8 g/dL (29.9-35.2); Mean Corpuscular Hemoglobin 29.3 pg (25.9-34.0); Mean Corpuscular Volume 84.4 fL (80.0-94.0); Platelet Count 250 10^3/uL (150-450); Red Blood Count 5.25 10^6/uL (4.70-6.10); White Blood Count 9.9 10^3/uL (4.0-11.0)
[2025-04-05 11:55] LABS: SARS-CoV-2 Ag NEGATIVE (NEGATIVE)
[2025-04-05 12:00] LABS: Anion Gap 13.3; Blood Urea Nitrogen 10.0 mg/dL (7.0-18.0); Calcium 8.9 mg/dL (8.5-10.1); Carbon Dioxide 27.5 mmol/L (21.0-32.0); Chloride 104 mmol/L (98-107); Estimated GFR (African America >60 (>=60 mL/min/1.73m^2); Estimated GFR (Non-African Ame >60 (>=60 mL/min/1.73m^2); Glucose 91 mg/dL (74-106); Potassium 3.8 mmol/L (3.5-5.1); Sodium 141 mmol/L (136-145)
[2025-04-05 13:06] VITALS: BP 94/55; PULSE 76; O2SAT 97
--- NOTE | 2025-04-05 16:27 | ED.GENADUL1 ---
HPI HPI - General Adult General Chief complaint: Upper Respiratory Infection Stated complaint: cough and chest pain Time Seen by Provider: 04/05/25 11:25 Source: patient Mode of arrival: walk-in History of Present Illness HPI narrative: Patient is a 34-year male presenting to the emergency department for evaluation of URI symptoms. Patient states he has been feeling ill over the last few days. He states he has a cough, congestion, and fatigue over the last few days. He denies fevers or chills. He has no chest pain or shortness of breath. States he is nauseous, but has had no vomiting, constipation, or diarrhea. Does have a history of bronchiectasis and follows up with pulmonology. Related Data Home Medications ?Medication ?Instructions ?Recorded ?Confirmed trazodone 50 mg tablet 50 mg PO BEDTIME PRN sleep 09/13/23 04/05/25 esomeprazole magnesium 40 mg 40 mg PO .bidac 08/09/24 04/05/25 capsule,delayed release Previous Rx's ?Medication ?Instructions ?Recorded albuterol sulfate 2.5 mg/3 mL 2.5 mg (3 mL) inhalation Q6H PRN 05/25/23 (0.083 %) solution for nebulization shortness of breath or wheezing #75 mL albuterol sulfate 90 mcg/actuation 1 inh inhalation Q4H PRN shortness 03/22/24 aerosol inhaler of breath or wheezing #8.5 grams Allergies Allergy/AdvReac Type Severity Reaction Status Date / Time Penicillins Allergy Intermediate Hives Verified 02/24/25 09:55 Opioid HPI Opioid Management Most Recent Opioid Data: Last Pain Scale 0 02/26/25, 07:30 Last ORT Total Score 14 02/24/25, 14:30 Last ORT Risk Category High Risk 02/24/25, 14:30 Ur Phencyclidine Scrn, (NEGATIVE) Negative 08/09/24, 11:49 Review of Systems ROS Status of ROS 10 or more systems reviewed and unremarkable except as noted in history and below [facility] Medical History (Updated 04/05/25 @ 12:54 by Ilia Atwood DO) Bronchiectasis ?J47.9 - Bronchiectasis, uncomplicated (ICD-10) Healthcare-associated pneumonia ?J18.9 - Pneumonia, unspecified organism (ICD-10) Asthma exacerbation ?J45.901 - Unspecified asthma with (acute) exacerbation (ICD-10) Hypoxemia ?R09.02 - Hypoxemia (ICD-10) Multifocal pneumonia ?J18.9 - Pneumonia, unspecified organism (ICD-10) Respiratory failure ?J96.90 - Respiratory failure, unspecified, unspecified whether with hypoxia or hypercapnia (ICD-10) Constipation ?K59.00 - Constipation, unspecified (ICD-10) Nausea and vomiting ?R11.2 - Nausea with vomiting, unspecified (ICD-10) Tobacco abuse ?Z72.0 - Tobacco use (ICD-10) Acute hypoxic respiratory failure ?J96.01 - Acute respiratory failure with hypoxia (ICD-10) Insomnia ?G47.00 - Insomnia, unspecified (ICD-10) Hypernatremia ?E87.0 - Hyperosmolality and hypernatremia (ICD-10) Right lower lobe pneumonia ?J18.9 - Pneumonia, unspecified organism (ICD-10) Lactic acidosis ?E87.20 - Acidosis, unspecified (ICD-10) Chronic hypoxic respiratory failure, on home oxygen therapy ?J96.11 - Chronic respiratory failure with hypoxia (ICD-10) ?Z99.81 - Dependence on supplemental oxygen (ICD-10) Asthma exacerbation ?J45.901 - Unspecified asthma with (acute) exacerbation (ICD-10) Upper respiratory infection ?J06.9 - Acute upper respiratory infection, unspecified (ICD-10) Esophagitis with gastritis ?K29.70 - Gastritis, unspecified, without bleeding (ICD-10) ?K20.90 - Esophagitis, unspecified without bleeding (ICD-10) Leukocytosis ?D72.829 - Elevated white blood cell count, unspecified (ICD-10) Dyspnea ?R06.00 - Dyspnea, unspecified (ICD-10) Hypoxia ?R09.02 - Hypoxemia (ICD-10) Depression with anxiety ?F41.8 - Other specified anxiety disorders (ICD-10) Steroid-induced hyperglycemia ?R73.9 - Hyperglycemia, unspecified (ICD-10) ?T38.0X5A - Adverse effect of glucocorticoids and synthetic analogues, initial encounter (ICD-10) Hyponatremia ?E87.1 - Hypo-osmolality and hyponatremia (ICD-10) Chest wall pain ?R07.89 - Other chest pain (ICD-10) Pneumonia ?J18.9 - Pneumonia, unspecified organism (ICD-10) Malnutrition of moderate degree ?E44.0 - Moderate protein-calorie malnutrition (ICD-10) Depression ?F32.A - Depression, unspecified (ICD-10) Bronchiectasis ?J47.9 - Bronchiectasis, uncomplicated (ICD-10) Upper respiratory infection ?J06.9 - Acute upper respiratory infection, unspecified (ICD-10) Acute hypokalemia ?E87.6 - Hypokalemia (ICD-10) Avulsion of skin ?T14.8XXA - Other injury of unspecified body region, initial encounter (ICD-10) Influenza ?J11.1 - Influenza due to unidentified influenza virus with other respiratory manifestations (ICD-10) Marijuana abuse ?F12.10 - Cannabis abuse, uncomplicated (ICD-10) Coronavirus infection ?B34.2 - Coronavirus infection, unspecified (ICD-10) Pneumonia ?J18.9 - Pneumonia, unspecified organism (ICD-10) Hospital-acquired bacterial pneumonia ?J15.9 - Unspecified bacterial pneumonia (ICD-10) COVID-19 ?U07.1 - COVID-19 (ICD-10) GERD (gastroesophageal reflux disease) ?K21.9 - Gastro-esophageal reflux disease without esophagitis (ICD-10) 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 - Pyothorax with fistula (ICD-10) Shortness of breath ?R06.02 - Shortness of breath (ICD-10) Chronic dyspnea ?R06.09 - Other forms of dyspnea (ICD-10) Viral infection ?B34.9 - Viral infection, unspecified (ICD-10) Hypoxia ?R09.02 - Hypoxemia (ICD-10) Acute asthma exacerbation ?J45.901 - Unspecified asthma with (acute) exacerbation (ICD-10) Bronchitis ?J40 - Bronchitis, not specified as acute or chronic (ICD-10) History of home oxygen therapy ?Z99.81 - Dependence on supplemental oxygen (ICD-10) Oxygen desaturation during sleep ?G47.34 - 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) History of gastrostomy tube placement Abdominal pain, acute ?R10.9 - Unspecified abdominal pain (ICD-10) Surgical History History of fundoplication ?Z98.890 - Other specified postprocedural states (ICD-10) History of appendectomy ?Z90.49 - Acquired absence of other specified parts of digestive tract (ICD-10) H/O chest tube placement ?Z98.890 - Other specified postprocedural states (ICD-10) History of facial surgery ?Z98.890 - Other specified postprocedural states (ICD-10) Family History Mother Family history of diabetes mellitus Family history of hypertension Grandmother Family history of diabetes mellitus Grandfather Family history of myocardial infarction Social History Within the past year, how often did you have a drink containing alcohol: monthly or less Within the past year, how many standard drinks containing alcohol did you have on a typical day: 1 or 2 Within the past year, how often did you have six or more drinks on one occasion: less than monthly Total score: 1 Score interpretation: A score less than 4 is consistent with normal alcohol consumption. Smoking status: Former smoker Nicotine containing products detail: quit smoking 4 months ago Non-prescribed substance use: cannabis (any form) Previous occupational history: [employer] Known occupational exposures/hazards: No Highest level of school completed/degree received: high school graduate Are you now , , , , never or living with a partner: In a typical week, how many times do you talk on the telephone with family, friends, or neighbors: 3 or more times per week How often do you get together with friends or relatives: once per week How often do you attend adventist or baptism services: never Do you belong to any clubs or organizations such as adventist groups unions, fraternal or athletic groups, or school groups: no Total score: 1 Score interpretation: A score of less than or equal to 1 indicates the most socially isolated. Little interest or pleasure in doing things: not at all Feeling down, depressed, or hopeless: not at all Feel stressed/tense/nervous/anxious/difficulty sleeping: not at all Do you think of yourself as: straight/heterosexual Gender Identity: male Exam Narrative Exam Narrative: CONSTITUTIONAL: Patient appears fatigued, but nontoxic, answer questions follow commands appropriate. Speaking full sentences. SKIN: Was warm and dry. EYES: Sclerae white. EARS, NOSE, THROAT: Moist oral mucosa. RESPIRATORY: Coarse breath sounds bilaterally, no wheezes, crackles, or stridor, no use of accessory muscles CARDIOVASCULAR: Normal rate and regular rhythm. There is no S3, S4, murmur, rub. GASTROINTESTINAL: Abdomen is nondistended. MUSCULOSKELETAL: No peripheral edema. NEUROLOGIC: Patient is awake and alert. Facies were symmetrical. Constitutional Vital Signs, click to edit/add: Last Vital Signs Temp 98.1 F 04/05/25 11:23 Pulse 76 04/05/25 13:06 Resp 16 04/05/25 13:06 BP 94/55 04/05/25 13:06 Pulse Ox 97 04/05/25 13:06 O2 Del Method Room Air 04/05/25 13:06 Course Vital Signs Vital signs: Vital Signs Temperature 98.1 F 04/05/25 11:23 Pulse Rate 84 04/05/25 11:23 Respiratory Rate 18 04/05/25 11:23 Blood Pressure 108/81 04/05/25 11:23 Pulse Oximetry 96 04/05/25 11:23 Oxygen Delivery Method Room Air 04/05/25 11:23 Temperature 98.1 F 04/05/25 11:23 Pulse Rate 76 04/05/25 13:06 Respiratory Rate 16 04/05/25 13:06 Blood Pressure 94/55 04/05/25 13:06 Pulse Oximetry 97 04/05/25 13:06 Oxygen Delivery Method Room Air 04/05/25 13:06 Medical Decision Making [facility] Narrative Medical decision making narrative: Patient is a 34-year-old male, history significant for bronchiectasis, presenting to the emergency department for evaluation of cough and URI symptoms over the last few days. His vital signs on arrival are within normal limits. He is afebrile and hemodynamically stable. He saturate 97% on room air. Does have coarse breath sounds, it is likely consistent with his history of bronchiectasis. Differential diagnosis includes URI, pneumonia, pneumothorax, or other electrolyte/metabolic derangement. IV was established and laboratory studies were obtained. He was given IV Zofran. Chest x-ray independently reviewed/interpreted by myself demonstrated no acute cardiopulmonary process. Laboratory studies were unremarkable. No significant electrolyte or metabolic derangement. No evidence of acute kidney injury. No anemia, leukocytosis, or thrombocytopenia. COVID/flu swabs negative. I do believe the patient is stable for discharge. Patient's presentation is most likely consistent with viral URI. They were instructed to follow up with his production grip for further care. Return precautions were given including any new or worsening symptoms. Patient understands and agrees to the plan. FINAL IMPRESSION: #Acute URI DISPOSITION: Discharged home CONDITION: Good Medical Records Medical records reviewed: Yes I reviewed the patient's medical records Lab Data Lab results reviewed: Yes I reviewed the patient's lab results Labs: Lab Results 04/05/25 04/05/25 Range/Units 11:36 11:42 WBC 9.9 (4.0-11.0) 10^3/uL RBC 5.25 (4.70-6.10) 10^6/uL Hgb 15.4 (14.0-18.0) g/dL Hct 44.3 (42.0-54.0) % MCV 84.4 (80.0-94.0) fL MCH 29.3 (25.9-34.0) pg MCHC 34.8 (29.9-35.2) g/dL RDW 13.2 (11.0-15.0) % Plt Count 250 (150-450) 10^3/uL MPV 11.0 (9.5-13.5) fL Neut % (Auto) 77.9 H (43.0-75.0) % Lymph % (Auto) 12.3 L (20.5-60.0) % [place] % (Auto) 8.3 (1.7-12.0) % Eos % (Auto) 0.5 L (0.9-7.0) % Baso % (Auto) 0.8 (0.2-2.0) % Neut # (Auto) 7.7 H (1.4-6.5) 10^3/uL Lymph # (Auto) 1.2 (1.2-3.8) 10^3/uL [place] # (Auto) 0.8 (0.3-0.8) 10^3/uL Eos # (Auto) 0.1 (0.0-0.7) 10^3/uL Baso # (Auto) 0.1 (0.0-0.1) 10^3/uL Abs Immat Gran (auto) 0.02 (0.00-0.03) 10^3/uL Imm/Tot Granulo (auto) 0.2 (0.0-0.5) % Sodium 141 (136-145) mmol/L Potassium 3.8 (3.5-5.1) mmol/L Chloride 104 (98-107) mmol/L Carbon Dioxide 27.5 (21.0-32.0) mmol/L Anion Gap 13.3 BUN 10.0 (7.0-18.0) mg/dL Creatinine 0.81 (0.70-1.30) mg/dL Est GFR ( Amer) >60 (>=60 mL/min/1.73m^2) Est GFR (Non-Af Amer) >60 (>=60 mL/min/1.73m^2) BUN/Creatinine Ratio 12.3 Glucose 91 (74-106) mg/dL Calcium 8.9 (8.5-10.1) mg/dL Influenza Type A Ag Negative Influenza Type B Ag Negative SARS-CoV-2 Ag (CV2AG) Negative (NEGATIVE) Imaging Data Chest x-ray: Attestation: I personally reviewed and interpreted this imaging study as follows: Radiologist's impression: ITS Impressions Chest X-Ray 04/05/25 11:33 IMPRESSION: No acute cardiopulmonary pathology. Small bilateral pleural effusions are redemonstrated with chronic interstitial prominence and perihilar airspace opacities. Impression dictated by: Ashish Candelario M.D. 04/05/2025 12:48 PM Dictation Location: [place] [address] Electronically authenticated by: [id number] Y Date: 04/05/2025 12:48 Discharge Plan Discharge Chief Complaint: Upper Respiratory Infection Clinical Impression: Upper respiratory infection Patient Disposition: Home, Self-Care Time of Disposition Decision: 12:54 Condition: Good Mode of Transportation: Private Vehicle Prescriptions / Home Meds: No Action trazodone 50 mg tablet 50 mg PO BEDTIME PRN (Reason: sleep) albuterol sulfate 90 mcg/actuation HFA aerosol inhaler 1 inh inhalation Q4H PRN (Reason: shortness of breath or wheezing) Qty: 8.5 0RF albuterol sulfate 2.5 mg /3 mL (0.083 %) solution for nebulization 2.5 mg inhalation Q6H PRN (Reason: shortness of breath or wheezing) Qty: 75 0RF esomeprazole magnesium 40 mg capsule,delayed release(DR/EC) 40 mg PO .bidac Print Language: Bhutanese Instructions: Upper Respiratory Infection (ED) Referrals: REBEKAH BARBOZA [Primary Care Provider, Family Practice] - 1 week Discharge Date/Time: 04/05/25 13:08
== END 2025-04-05 13:08 | disposition home or self-care (01) ==
PROVIDERS: Emergency Provider Student in an Organized Health Care Education/Training Program; PCP Nurse Practitioner Family
DX: J06.9 Acute upper respiratory infection, unspecified (principal); Z87.891 Personal history of nicotine dependence; J47.9 Bronchiectasis, uncomplicated
CPT/HCPCS: 36415; 71046; 80048; 85025; 87804; 87811; 99284; Q0162

== ENCOUNTER 2025-04-09 10:44 | Emergency (ER) | payer MEDICARE, MEDICAID, SELFPAY ==
--- OUTSIDE RECORDS SUMMARY | 2025-04-09 05:15 | XMS_ITS | Continuity of Care Document ---
Author Organization [facility] Address [address] [place] [address] Phone Care Team Providers Care Digitizer Name Role Phone Neetu Del Toro NP-C Primary Care Provider Nando Fuller MD Attending Provider Care Teams Patient Care Team Team Status: Active Member Role/Relationship Status Dates Neetu Del Toro NP-Paul Primary Care Provider Active Visit Care Team Team Status: Inactive Member Role/Relationship Status Dates Neetu Del Toro NP-Paul Primary Care Provider Active Start: April 09, 2025 End: April 09Ken Landeros ProviderActive Start: April 09, 2025 End: April 09, 2025 Chief Complaint and Reason for Visit Chief Complaint Admit Date 6 mo f/u Bronchiectasis April 09, 2 025 8:59am Reason for Visit Admit Date Allergic rhinitis April 09, 2025 8:59am Bronchiectasis April 09, 2025 8:59am [facility] April 09, 2025 8:59am Marijuana abuse April 09, 2025 8:59am Moderate persistent asthma, uncomplicate d April 09, 2025 8:59am Gastroesophageal reflux disease with eso phagitis April 09, 2025 8:59am Allergies, Adverse Reactions, Alerts Allergen Type Severity Reaction Last Updated Verified Status Penicillins Allergy Unknown Hives April 09, 2025 9:01am Y es Active Social History Smoking Status Status Start Date End Date Date of Observa tion Ex-smoker (finding) April 09, 2025 9:30am Observation Status Observation Response Date of Response Legal Sex Male (finding) Sex Assigned At BirthMaleApril 1990 Family History Relationship Condition Age at Onset Recorded Date/T lynsey mother Diabetes mellitus Unknown Problems Active Problems Problem Diagnosis/Recorded Date Onset Date Status C omments Hx of gastric ulcer April 29, 2024 2:19pm Unknown A ctive Cigarette nicotine dependence in remissionNov2023 10:23amUnknown ActiveModerate persistent asthma, uncomplicatedMarch 2023 8:39amUnknown ActiveHemoptysisMarch 2024 9:18amUnknownActiveMarijuana abuseMarch 2024 9:18amUnknownActiveHistory of alcohol abuseDecember 2023 2:28pmUnknown ActiveBronchiectasisMarch 2021 8:51amUnknownActiveGERD (gastroesophageal reflux disease)April 29, 2024 2:30pmUnknownActiveAllergic rhinitisMay 2024 1:34pmUnknownActiveHiatal herniaFebruary 2024 11:45amUnknownActive Inactive/Resolved Problems Problem Diagnosis/Recorded Date Onset Date Status C omments History of tobacco abuse July 30, 2023 9:30am Unknown Resolved Possible exposure to STDMarch 2022 4:06pmUnknownResolvedProblem List clean-up per request of Phys. EHR CmteCOVID-19July 2021 8:04pmUnknown ResolvedProblem List clean-up per request of Phys. EHR CmteCOVID-19November 2022 5:18pmUnknownResolvedProblem List clean-up per request of Phys. EHR Cmte Polysubstance dependenceMarch 2017 2:41amUnknownResolvedProblem List clean- up per request of Phys. EHR CmteAcute respiratory failure with hypoxiaMarch 2021 1:10amUnknownResolvedProblem List clean-up per request of Phys. EHR CmteChronic respiratory failure with hypoxiaMay 2021 3:58amUnknownResolved Problem List clean-up per request of Phys. EHR CmteGastroesophageal reflux disease with esophagitisMarch 2023 8:40amUnknownResolvedCoronavirus infectionMay 2021 8:04amUnknownResolvedProblem List clean-up per request of Phys. EHR CmteParainfluenzaMarch 2021 2:33pmUnknownResolvedProblem List clean-up per request of Phys. EHR CmteInfluenza AMay 2021 11:03amUnknown ResolvedProblem List clean-up per request of Phys. EHR CmteFeverJuly 2018 1:57amUnknownResolvedProblem List clean-up per request of Phys. EHR Cmte Aspiration into lower respiratory tractMarch 2021 11:49amUnknownResolved Problem List clean-up per request of Phys. EHR CmteTracheo-esophageal fistula January 09, 2019 1:52pmUnknownResolvedAT AND AGE 10. Born 6 weeks early. AnxietyApril 2022 12:49pmUnknownResolvedProblem List clean-up per request of Phys. EHR CmteTraumatic subdural hematomaFebruary 2024 12:43amUnknown ResolvedBronchiectasis with (acute) exacerbationMay 2021 11:02amUnknown ResolvedProblem List clean-up per request of Phys. EHR CmteAlcohol use disorder August 15, 2022 7:36amUnknownResolvedProblem List clean-up per request of Phys. EHR CmteClosed head injuryNovember 2021 11:42pmUnknownResolvedProblem List clean-up per request of Phys. EHR CmteColitisSeptember 2023 2:28amUnknown ResolvedDiarrheaSeptember 2023 1:02amUnknownResolvedAcute and chronic respiratory failure with hypoxiaApril 2022 5:26amUnknownResolvedProblem List clean-up per request of Phys. EHR CmteHeadacheFebruary 2024 12:43am UnknownResolvedAcute on chronic respiratory failure with hypoxemiaApril 2022 2:36amUnknownResolvedProblem List clean-up per request of Phys. [facility] Contusion of ribFebruary 2024 12:43amUnknownResolvedTobacco abuseMarch 2021 9:54amUnknownResolvedViral URINovember 2021 10:10amUnknown ResolvedProblem List clean-up per request of Phys. EHR CmteHistory of bronchiectasisMarch 2021 1:10amUnknownResolvedProblem List clean-up per request of Phys. EHR CmteAcute exacerbation of chronic obstructive pulmonary diseaseNovember 2021 10:10amUnknownResolvedProblem List clean-up per request of Phys. EHR CmteAcute exacerbation of chronic obstructive pulmonary disease (COPD)March 2021 1:10amUnknownResolvedProblem List clean-up per request of Phys. EHR CmteEsophagitisNovember 2022 1:48pmUnknownResolved Problem List clean-up per request of Phys. EHR CmteAbdominal painSeptember 2023 1:02amUnknownResolvedAbdominal painJuly 2018 1:57amUnknownResolved Problem List clean-up per request of Phys. EHR CmteAbdominal painMarch 2022 11:37amUnknownResolvedProblem List clean-up per [facility] Phys. [facility] Abdominal painAugust 2022 3:11pmUnknownResolvedAbdominal painSeptember 2023 8:59pmUnknownResolvedBronchitisNovember 2016 2:47amUnknown ResolvedProblem List clean-up per request of Phys. EHR CmtePneumoniaMarch 2021 1:10amUnknownResolvedProblem List clean-up per request of Phys. [facility] SmokerMarch 2021 2:33amUnknownResolvedProblem List clean-up per request of Phys. [facility]HR [facility] Medications Medication Status Dose Units Route Directions Qty Days Refills S tart Date Stop Date End Date Reason(s) Instructions Adherence Pantoprazole 40 mg tablet,delayed release (/EC) Discontinued 40 MG PO Twice daily 60 30 February 18, 2024 1:19pm April 29, 2024 2:23pmTake 1 tab 30 minutes before the first meal of the day, and take 1 tab 30 minutes before the last meal of the day.Albuterol Sulfate (Ventolin Hfa) 90 mcg/actuation HFA aerosol uycouhiPgtukchstzrp2TGJTGUIKTFMOCO Every 6 hours as needed for Shortness Of Breath Or Wheezing8.5302February 2024 12:07pmJuly 2024 9:44amAlbuterol Sulfate 2.5 mg /3 mL (0.083 %) solution for nebulizationDiscontinued2.5MGINHALATIONEvery 4 hours as needed for Shortness Of Grxjvv597162Vkppx 2024 7:09amMay 2024 1:12byZ93.50 asthmaClarithromycin 500 mg mdaeuaCyumhmrigitv695YLQNHhibi mwgrm77154Llq 13th, 2025 11:00pmNovember 2024 9:24amFluticasone Propionate 50 mcg/actuation spray,suspensionActive0.ROUTE.AGWPYPT639Lzyf 2024 8:34amINSTILL 2 SPRAY INTO EACH NOSTRIL DAILYComplies with drug therapyAlbuterol Sulfate 2.5 mg /3 mL (0.083 %) solution for nebulizationDiscontinued2.5MGINHALATIONEvery 4 hours as needed for Shortness Of Lxiccu210729Gwkl 2024 11:06amOctober 2024 12:19qaR45.50 asthmaAlbuterol Sulfate (Ventolin Hfa) 90 mcg/actuation HFA aerosol uxryhztCjpmpblwjccx6LENREMFXRQONIJOkngk 6 hours as needed for Shortness Of Breath Or Wheezing8.5302July 2024 9:44amNovember 2024 10:01am Esomeprazole Magnesium (Nexium) 40 mg capsule,delayed release(DR/EC)Discontinued 40MGPOTwice adfop86844Ejzvnpwxa 2024 8:54amSeptember 2024 2:31pmTake 1 capsule orally 30 minutes before morning meal and 30 minutes before evening meal.Esomeprazole Magnesium (Nexium) 40 mg capsule,delayed release(DR/EC) Tngvqhposkup42GHIAEbypq oxydg89248Dqjuvhcqy 16th, 2025 2:30pmSept2024 7:28amTake 1 capsule orally 30 minutes before morning meal and 30 minutes before evening meal.Esomeprazole Magnesium (Nexium) 40 mg capsule,delayed release(DR/EC)Tcelmb87EJKSMqygc32276Hamtxfnzd 19th, 2025 7:27amTake 1 capsule orally 30 minutes before morning meal and 30 minutes before evening meal. Complies with drug therapyAlbuterol Sulfate 2.5 mg /3 mL (0.083 %) solution for nebulizationDiscontinued2.5MGINHALATIONEvery 4 hours as needed for Shortness Of Mmoaug290569Asevhkt 2024 12:00pmNov2024 10:55wwB91.50 asthma Pantoprazole 40 mg tablet,delayed release (DR/EC)Iivsoxmybznp14DXIYVqrsqLyxz 2018 11:00pm[facility] 2021 12:32pmOndansetron 4 mg tablet,disintegrating Crbbykatwkjw8UGMIGu Directedly 2018 11:00pm[facility] 2021 12:32pm Doxycycline Hyclate 100 mg CenoaiUjdhwjnbosva665JVUUHcdn 2018 11:00pm January 09, 2019 1:48pmHydrocodone-Acetaminophen ([place]) 5-325 mg tablet Cclovhxqsmuh8MHUQQG4Y as needed for gkzc140Vwij 2018August 2018 1:48pmUnspecified abdominal painLevofloxacin (Levaquin) 750 mg tablet Cfhzadebcvwr717ZTHOUtgvl712Mblc 2018 11:00pmA[facility] 2018 1:48pm Dicyclomine 20 mg QlypvpCnhvwieopmod54RXTPUyzx times yndgk201Pssjmsxb 2020 12:00amMarch 2021 12:32pmOndansetron 4 mg tablet,disintegrating Nyfhenynzcvs3VVVKBkte times daily as needed for nausea and liczorfp527Deoalyac 18th, 2022 12:00amNovember 2021 9:29amAlbuterol Sulfate 2.5 mg /3 mL (0.083 %) solution for nebulizationDiscontinuedMGNovflagstaff medical center 2021 12:00am August 15, 2022 5:17amPantoprazole (Protonix) 40 mg Tablet,Delayed Release (Dr/Ec)Dfdhthrojbdl09XPTJJusba dailyM[facility] 2021 12:00amApril 2022 12:46pmPrednisone 50 mg qdcgscSonszjseypjt44HVAOQpjyk286Orqpdiib 2021 12:00amMarch 2022 5:17amAzithromycin (Zithromax) 250 mg tabletDiscontinued 384SYNZUqcbn58Zgxygxoz 2021 12:00amMarch 2022 5:17amZPAK-2 tabs day 1, the 1 tab daily for 4 daysDexamethasone 6 mg loxyfoJoonptlerezv3GROZTyilw45 August 11, 2022 11:00pm[facility] 2022 5:17amAzithromycin (Zithromax Z-Daniel) 250 mg qgqnkcUqfroyfmhrqy697YRDFEwncm680Ordji 2022 11:00pm[facility] 2022 5:17amstart on day 2 of therapyAlbuterol Sulfate 2.5 mg /3 mL (0.083 %) solution for nebulizationDiscontinued2.9KWEZKOYBQEHCN0U as needed for Shortness Of Breath 2022 11:00pm[facility] 2023 9:19amPrednisone 20 mg TabletDiscontinued 05JEBUJuyih32Ztdhp 2022 11:00pmApril 2022 12:46pmGuaifenesin (Mucinex) 1,200 mg Tablet Extended Release 63epTxmsprchmrvo4941BKRCZ24R275Izxrm 2022 11:00pmAugust 2022 12:22pmDoxycycline Hyclate 100 mg Tablet Efglpajeaiwo919GLFOHzckb pgibt695Urcsz 5th, 2023 11:00pmApril 2022 12:46pm Cefdinir 300 mg EwbiggeUdiypwijxava721TCOMW43S732Lzwoi 5th, 2023 11:00pmApril 2022 12:46pmPrednisone 20 mg rkfwvuIyzacuuhgqgn75OZOXWkykj734Yrqdp 2022 11:00pmAu2022 12:22pmTake 3 tabs daily x 3 days, then 2 tabs daily x 3 days, then 1 tab daily x 3 days, then 1/2 tab daily x 4 days then stop.Guaifenesin (Mucinex) 600 mg Tablet Extended Release 48eeHderqqhnwsvt1383TP POTwice dfhva800Gnymg 2022 11:00pmAucl[facility] hospitalt 2022 12:22pmClonazepam 0.5 mg TabletDiscontinued0.25MGPOTwice knfat34973Kjqnl 2022 11:00pmNov2022 3:14pmAnxiety Anxiety disorder, unspecifiedDicyclomine 10 mg hfipzibNgwgzxfrtdpu02WCCLPmtvq gdhvr79Aluegy 2022 11:00pmFebruary 2023 7:36amOndansetron 4 mg tablet,ynfujkgcrxhfwwBgswvzqihdze2NHGPEyocm times djqsp882Nlrpmn 19th, 2023 11:00pm[facility]2022 12:48pmPrednisone 20 mg QtoiaoVgsloxxemfeq6BPWYUxcyr April 03, 2023 12:00amFebruary 2023 7:37amNirmatrelvir-Ritonavir (Paxlovid) 300 mg (150 mg x 2)-100 mg tablets,dose ulqlFhvcuupgwzwq5CZ.WXXQECU94 0April 03, 2023 12:00amFebruary 2023 7:37amtake TWO 150 mg tablets of nirmatrelvir with ONE 100 mg tablet of ritonavir twice daily for 5 days Dexamethasone 6 mg edheibFlbuaastffdc1ECJGReapo24Svonsmic 8th, 2023 12:00am July 25, 2023 7:36amOndansetron 4 mg tablet,yzmqfobfwffvkqYurthfqeukys3CA POQ8H as needed for nausea and ocatsunk865Stexrguf 8th, 2023 12:00amFebruary 2023 7:37amAlbuterol Sulfate 2.5 mg /3 mL (0.083 %) solution for nebulizationDiscontinued2.5MGINHALATIONEvery 4 hoursSeptember 2023 11:00pm 2024 7:10amShortness Of BreathAlbuterol Sulfate (Ventolin Hfa) 90 mcg/actuation Hfa Aerosol EnaxgdjUzvaqdcxnper0GFLQGTUQRUYCQYYwlhh 6 hours as needed for Shortness Of Breath Or WheezingSeptember 2023 11:00pmFebruary 2024 12:07pmMetronidazole 500 mg ZppevmStgpyfwjsqio312AEZUMprnq times cbeks6177Yngtrhofu 2023 11:00pmDeceer 2023 2:17pmCiprofloxacin Hcl 500 mg pygiixTwvvudzbkkjm828KYOJQwgvi wzojl4309Rdfafwurs 2023 11:00pm April 03, 2024 9:49amstart 02/13/24 amCyclobenzaprine 10 mg tablet Makkbcrfipuv85WGJTWtjkb times daily as needed for Muscle Mcefy350Vfarhgmlh 2023 11:00pm[facility] 2023 2:17pmIbuprofen 600 mg hqctooVcdecoyetqrm591QOEG Every 6 hours as needed for Zvos988Furcdmbiz 2023 11:00pmDehenry ford [facility]2023 2:17pmdo not exceed 4 doses in a 24 hour periodHydrocodone-Acetaminophen 5- 325 mg tabletDiscontinuedTABFebruary 2024 12:00amFebruary 2024 9:54am Oxycodone-Acetaminophen (Percocet) 5-325 mg tabletDiscontinued1 - 2TABPOEvery 6 hours as needed for seyu1849Nmqyhqin 2024February 2024 1:01amTraumatic subdural hematoma Contusion of rib Contusion of unspecified front wall of thorax, initial encounterOmeprazole 40 mg capsule,delayed release(DR/EC)Pcduuzukjvri08WYXJGsdjh dailyFebruary 2024 12:00amMarch 2024 8:58amHydroxyzine Pamoate 25 mg capsuleDiscontinuedMG July 05, 2024 12:00amFebruary 2024 9:55amAzithromycin 250 mg tablet Vvzxgddmvdcd062HTFILombqCmeropxp 8th, 2017 12:00amMarch 2017 2:22am Fluconazole (Diflucan) 150 mg MqwqzuRbfsycdfruua432RMDDUrqqj dailyNov2016 12:00am[facility] 2017 2:22amPrednisone 20 mg smyluhWsprozsifvzm24EYEIwdvyt 40April 04, [address] [facility] 2017 2:22amadminister with food or milk Albuterol Sulfate 2.5 mg /3 mL (0.083 %) solution for nebulizationDiscontinued1 AMPULINHALATIONFour times daily - RespiratoryMem[facility] 2017 12:00amJuly 2021 5:52pmOmeprazole 40 mg capsule,delayed release(DR/EC)Vhixucpnrmvt45SSEN Twice dailyMem[facility] 2017 12:00amJuly 2017 10:03amPsyllium Husk 3 gram/5.4 gram ngofzjVgbkqfslomlc3GBEFIKJzukc wicxf6572Ewpos 2017 12:00am December 18, 2017 10:03ammix into at least 8 oz of water or juice before administeringOndansetron (Zofran Odt) 4 mg tablet,cceqyudwicowsvXmgnjpqzuqov4IG POQ8H as needed for hwxmvn265Mtnkn 2017 12:00amJuly 2017 10:03am Prednisone 1 mg TabletDiscontinuedMGPODailyJuly 2017 11:00pmJuly 2018 10:07pmAlbuterol Sulfate 90 mcg/actuation Hfa Aerosol InhalerDiscontinued2 PLTVVGUMHIIOREG7F as needed for Shortness Of Breath Or WheezingJuly 2017 11:00pm[facility] 2021 10:43amLevofloxacin (Levaquin) 750 mg tabletDiscontinued 019FJTIZbgop622Idyp 2017 11:00pmJuly 2017 11:00pmJuly 2017 11:02pmDoxycycline Hyclate 100 mg zrhpwqdAciipzuwwmbn121LEAZLgpix idgki47129 August 08, 2021 11:00pm[facility] 2021 3:37amMethylprednisolone (Medrol (Daniel)) 4 mg tablets,dose utupPawkqxeagrkq8SY.RIFTIJM427Zojol 2021 11:00pmMar 2021 10:43amorally per package directionsBudesonide-Formoterol (Symbicort) 80-4.5 mcg/actuation Hfa Aerosol InhalerDiscontinuedINHALATIONMemorial [facility] 2021 11:00pmMar 2021 10:43amdose needs clarified.Nicotine 14 mg/24 hr Patch 24 QwihMxjxujqitexq5XFWBMZQCXUFUTMVTsqfl27096Mpphh 2021 11:00pmJuly 2021 5:53pmPrednisone 20 mg GumohoEvdnpatshawf2BQMJCrafv Taper: Start: August 12, 2021 9:00am End: August 15, 2021 8:59am Frequency: DAILY Days: 3 Hours: 0 Dose: 40 Start: August 15, 2021 9:00am End: August 18, 2021 8:59am Frequency: DAILY Days: 3 Hours: 0 Dose: 20 Start: August 18, 2021 9:00am End: August 25, 2021 8:59am Frequency: DAILY Days: 7 Hours: 0 Dose: 35156Byplp 2021 11:00pmMay 2021 1:56pmPlease contact the information source for Taper Schedule details.Guaifenesin 100 mg/5 mL Liquid Feirplnnfxje23DCZER3W4444994Dziuz 2021 11:00pmMay 2021 4:48am Omeprazole 20 mg Capsule,Delayed Release(Dr/Ec)Jjvuxqtvbxmm05RFHRUfgng71697Migga 2021 11:00pmJuly 2021 5:53pmAlbuterol Sulfate (Ventolin Hfa) 90 mcg/actuation Hfa Aerosol KfxmiueAkvvpoyslhhl6KMGOAFLLDAFPAQC3E as needed for Shortness Of Breath Or Wheezing8.5300[facility] 2021 11:00pmSeptember 2023 1:59pmGuaifenesin (Mucinex) 600 mg Tablet Extended Release 12hrDiscontinued 1200MGPOTwice ponda91464Cgdur 2021 11:00pmMay 2021 4:48amFluticasone Propion-Salmeterol 113-14 mcg/actuation Aerosol Powdr Breath Activated Lqapexkbojtz3EEMIHDCUMUTNFAHhuuh mmpzc0418Plmhh 2021 11:00pmMay 2021 4:47amLevofloxacin 750 mg xkxiomIekcpklggjpi484DTRMErkmo56347Vbqrz 17th, 2022 11:00pmMay 2021 1:56pmPrednisone 50 mg nvgeryNtjrhxsgrnyy52OGLRTpnee285 September 06, 2021 11:00pmMay 2021 5:22amAlbuterol Sulfate (Ventolin Hfa) 90 mcg/actuation HFA aerosol umfwsrhXuqgvgdaampd7BAJIJYYFVVSFQLKITK 4-6 HOURS as needed for shortness of breath or wheezing8.50April 2021 11:00pmJuly 2021 5:52pmNicotine 14 mg/24 hr Patch 24 AgnxZwcoqkinbdxv4AQMZOLTTZORAHAAraty37 300May 2021 11:00pmJuly 2021 5:53pmOseltamivir 75 mg Capsule Zfdinqvfasds86PMJZFjnzp hmzlq122RnvOctober 10, 2021 11:00pmJuly 2021 5:53pm Sodium Chloride (Nebusal) 3 % solution for jfshpxayhnswAnnsaxjomptm2VHSPHDONVFVO EVERY 4-6 HOURS as needed for rxquhbjkcm7599Etg 2021 11:00pmJuly 2021 5:53pmtake 1 dose every 4 hours as needed promote mucus productionAlbuterol Sulfate 90 mcg/actuation HFA aerosol ztyrajgSaknkxlulirl2JWJAFYVYQECXJN8R as needed for shortness of breath or wheezing6.7300May 2021 11:00pmNovember 2021 9:29amAlbuterol Sulfate 1.25 mg/3 mL solution for nebulization Discontinued1.88MYOHMZLKIPDRK5B as needed for shortness of breath or 300May 2021 11:00pmJuly 2021 5:52pmPrednisone 10 mg tablet Odfjtrylapjr1YXNXAxqjf Taper: Frequency: DAILY Days: 2 Hours: 0 Dose: 20 Frequency: DAILY Days: 2 Hours: 0 Dose: 10 Frequency: DAILY Days: 2 Hours: 0 Dose: 5770May 2021 11:00pmJuly 2021 5:53pmPlease contact the information source for Taper Schedule details.Sodium Chloride 3 % solution for vborhtuacszcMyoblidfgbuy3AGDTBQDKSGVZT8Y as needed for Shortness Of BreathJuly 2021 11:00pmNovember 2021 9:29amBenzonatate 100 mg capsule Unsuwsiqgies202ZBSRXndap times daily as needed for gniyx281Eqym 2021 11:00pmNovember 2021 9:29amPrednisone 20 mg pjippnVkqbolqbbuoo33EHDFFqghh3 30July 2021 11:00pmNovember 2021 9:29amDicyclomine 20 mg tablet Orjjfzbnpfig03KGEAZhgx times hvvzt430Yucro 2022 11:00pmApril 2022 3:08amOndansetron 4 mg tablet,wxllyekcxanectKvlwepygnmpl7DBJHguyal 6 to 8 hours as needed for Lyiing347Mdgil 2022 11:00pmApril 2022 3:08amHydroxyzine Pamoate 25 mg jafjpquRlwmhfjemrhy24GFOHCtejf times daily as needed for Anxiety April 02, 2023 12:00amFebruary 2023 7:37amOndansetron 4 mg tablet,xtflsuyaggwexuOxbsidzhziqz6DEEQGedwk times daily as needed for Nausea April 02, 2023 12:47pmNovember 2022 3:14pmDexlansoprazole (Dexilant) 60 mg capsule,biphase delayed qauhpqGorfxmwngvgu01KCAWUskgn837Isyoulpx 6th, 2023 12:00amFebruary 2023 7:36amTrazodone 50 mg ifkyrzBiexrqlnkyne58BMTQWkabo at bedtimeJune 2023 11:00pmDecember 2023 2:18pmPantoprazole 40 mg tablet,delayed release (DR/EC)Yozfnbqkxnqu14FXQBNubkgPeruqzxp 2023 12:00am October 23, 2023 9:50amSodium Chloride 3 % solution for nebulizationDiscontinued4 MLINHALATION.COMPLEXFebruary 2023 12:00amFebruary 2024 12:00am4 mL inhaled twice a day;Albuterol Sulfate 2.5 mg /3 mL (0.083 %) solution for nebulizationDiscontinued2.6GBYNIMBDTNGTQ9R4381Ijfgu 2023 9:18amSeptember 2023 1:59pmModerate persistent asthma without complication Moderate persistent asthma, uncomplicated Shortness Of BreathEscitalopram Oxalate 10 mg miehcdAkgovhpuuypk39EVRTKptwkLtel 2023 11:00pmNovember 2023 9:52amEscitalopram Oxalate 10 mg tablet Kxbungaatltk99QWHFUcnwpOdoanoxa 7th, 2024 9:52amDecember 2023 2:17pmLexapro Budesonide-Formoterol (Symbicort) 160-4.5 mcg/actuation HFA aerosol inhaler Uwhaiapracnv6LKDZYILKFTBMXTIyywc xnomf00Xsqtv 2024 12:00amMay 2024 1:30pmModerate persistent asthma without complication Moderate persistent asthma, uncomplicatedRinse after use. May substitute with generic budesonide/formoterol or Breyna, whichever is covered by insurance or cheaper for the patient.Oxygen unitDiscontinued0.RouteMay 2024 11:00pmMay 2024 12:55pmAs directedOxygen unitActive0.RouteOctober 07, 2024 12:54pmAs directed 3 L/M [facility] Medical Service CompanyPrednisone 10 mg imvjdyFsspughafgua3RR gtvrb893QbjOctober 06, 2024 11:00pmNov2024 9:02amorally daily; 4 tablets daily for 3 days orally, 2 tablets daily for 3 days orally, 1 tablet daily for 7 days orallyFluticasone Propionate 50 mcg/actuation spray,suspensionDiscontinued2 TJNIJGELQUFNDKAFayol43221Pyx 12th, 2025 11:00pmJune 2024 8:34amadminister into each nostrilAlbuterol Sulfate 2.5 mg /3 mL (0.083 %) solution for nebulizationDiscontinued2.5MGINHALATIONEvery 4 hours as needed for Shortness Of Yfnall166859Lpw 13th, 2025 1:29pmJuly 2024 11:27icV73.50 asthmaFluticasone Propion-Salmeterol (Advair Hfa) 230-21 mcg/actuation HFA aerosol inhalerActive2 INHINHALATIONTwice dnmsi53286Evg 2024 11:00pmComplies with drug therapy Pantoprazole 40 mg tablet,delayed release (DR/EC)Sdllkuhzfjug55AJNFJsshv761630 October 23, 2023 9:49amSeptember 2023 1:24pmCephalexin 500 mg capsule Qoddqtlwfbbn655TIVOXhkuo dailyApril 03, 2024 12:00am[facility] 2023 2:17pmHydroxyzine Pamoate 25 mg nfouiuuFtwkvopmpgps56EXNKFrwec 8 hours as needed April 03, 2024 12:00amDecember 2023 2:18pmOxygen unitDiscontinued0 .RouteApril 03, 2024 12:00amFebruary 2024 1:02amAs directedMometasone- Formoterol (Dulera) 100-5 mcg/actuation HFA aerosol zvmfljuQfalfzyhcscn8OITQ INHALATIONTwice yodny5510UmhrkezoApril 03, 2024 12:00amFebruary 2024 12:00am Moderate persistent asthma without complication Moderate persistent asthma, uncomplicatedRinse after useOmeprazole 40 mg capsule,delayed release(DR/EC)Ruzlxkqelqdk20GLHTPbsaz vhqvy28926Zjoewhuj 3rd, 2024 12:00amFebruary 2024 12:00amSucralfate (Carafate) 1 gram tablet Fmmkgbpovgax7YEWXNswua times yvpgv00167Xvslgwxb2023 12:00amFebruary 2024 12:00amEsomeprazole Magnesium (Nexium) 40 mg capsule,delayed release(DR/EC) Iziyjsffqfxx81AGYJPmrgs xhepz63285Xmimhbnu 21st, 2025 12:00amSept2024 8:55amPrednisone 10 mg rhpvrlEbbetn0RUwopto666Tdezjwjn 13th, 2025 12:00am orally daily; 4 tablets daily for 3 days orally, 2 tablets daily for 3 days orally, 1 tablet daily for 7 days orallyComplies with drug therapyClarithromycin 500 mg bfehhcGdvsqu034MVEZSkmsw xktkw27983InmtqzkiApril 09, 2025 12:00amComplies with drug therapyAlbuterol Sulfate (Ventolin Hfa) 90 mcg/actuation HFA aerosol dpnyaojTwesjc2ZNPEVZQQNWQQFBLagsx 6 hours as needed for Shortness Of Breath Or Wheezing8.5302April 09, 2025 10:01amComplies with drug therapyAlbuterol Sulfate 2.5 mg /3 mL (0.083 %) solution for nebulizationActive2.5MGINHALATION Every 4 hours as needed for Shortness Of Lltecm936677Uumaktnq 13th, 2025 10:01am J45.50 asthmaComplies with drug therapy Immunizations Immunization Event Date Not Given Reason Dose Number Vessel Engineer Lot Number Reason(s) Given Vaccine Information Statement (VIS) Detail Administration Location Tetanus, Diphtheria, Pertussis (Tdap) March 28[address]21 [address] Vital Signs Vital Reading Result Reference Range Collection Date/Time Height 62 [in_i] April 09, 2025 9:22jeFawciz65.60 kgApril 09, 2025 9:23amHeart Rate77 /gtc47-336UmbzqttuApril 09, 2025 9:23amRespiratory rate20 /mkp86-96HwdtjwurApril 09, 2025 9:23amOxygen saturation by Pulse phijsupg74 %95-100April 09, 2025 9:23amBP Pupzlqch855 mm[Hg]100-140April 09, 2025 9:23amBP Wunffeuac72 mm[Hg]60-100April 09, 2025 9:23amBMI (Body Mass Index)23.2 kg/y1ZwqwksxvApril 09, 2025 9:23am Advance Directives Advance Directive Response Recorded Date/ Time Advance Directives No April 04, 2017 2:05am Insurance Providers Guarantor Luis Solomon Address [address] [facility] [address] [facility] [address]Ugrcaqq Info.Home Phone: Coverage Status Update:2025 Payer Group Member ID Coverage Type Subscriber Relationship to Subscriber Effective Date Expiration Date Monica MARI [id number] J Heath Id: [id number] [facility] [address] Home Phone: Email: [email or web address] Centeredicaid Id: [id number] Juanito Id: [id number] [facility] [address] Home Phone: Email: [email or web address] Soybean FarmsSelf Encounters Encounter Location(s) Arrival/Admit Date Discharge/Departure Date Discharge/Departure Disposition Provider(s) Departed Physician/ Provider Office Visit -[facility] April 09, 2025 8:59am April 09, 2025 10:10am Discharged to home care or self care (routine discharge) Nando Fuller MD Recent Diagnosis Onset Date Admit Date Allergic rhinitis Unknown April 09, 2025 8:59am Bronchiectasis Unknown April 09 8:59am Cigarette nicotine dependence in remission Unkno wn April 09, 2025 8:59am Marijuana abuse Unknown April 09, 025 8:59am Moderate persistent asthma, uncomplicated Unknow n April 09, 2025 8:59am Gastroesophageal reflux dise ase with esophagitis Unknown April 09, 2025 8:59am Assessments Diagnosis Onset Date Resolution Status Admit Date Allergic rhinitis acuteApril 09, 2025 8:59amBronchiectasisacuteApril 09, 2025 8:59am Cigarette nicotine dependence in remissionacuteApril 09, 2025 8:59am Marijuana abuseacuteApril 09, 2025 8:59amModerate persistent asthma, uncomplicatedacuteApril 09, 2025 8:59amGastroesophageal reflux disease with esophagitisresolvedApril 09, 2025 8:59am Plan of Treatment Author Nando Fuller [facility] CenterAuthohassler health farmApril 09, 2025 9:44amAll questions were answered. The patient was advised to call us if there are any new respiratory issues or concerns. Future Tests Future scheduled test information is unavailable Pending Tests Pending diagnostic test information is unavailable Future Visits Future appointment information is unavailable Future Procedures Future procedure information is unavailable Future Medications Future medication information is unavailable Patient Instructions Patient instructions are unavailable
[2025-04-09 10:50] VITALS: BP 104/67; PULSE 81; TEMP 36.6; O2SAT 95; BMI 22.5
--- OUTSIDE RECORDS SUMMARY | 2025-04-09 10:52 | XMS_ITS | Clinical Summary ---
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 Name Role Phone Neetu Del Toro CHANDRIKA Primary Care Provider [phone] Allergies No known active allergies Medications MedicationSigDispense QuantityRefillsLast FilledStart DateEnd DateStatus albuterol 90 mcg/actuation inhaler INHALE 2 PUFFS INTO THE LUNGS EVERY 6 HOURS NEEDED FOR 90 DAYS07/11/2023 Active traZODone (Desyrel) 50 mg tablet TAKE 1 TABLET BY MOUTH ONCE A DAY AT BEDTIME DHOHCB6909/12/2023ctive escitalopram (Lexapro) 10 mg tablet TAKE 1/2 TAB BY MOUTH DAILY FOR FIRST WEEK,THEN INCREASE TO 1 TABLET BY MOUTH DAILY09/12/2023ctive nebulizer and compressor device 1 Device.09/08/2016Active dexlansoprazole (Dexilant) [address] capsule Take 1 capsule by mouth in the morning.04/03/2023ctive Active Problems ProblemNoted DateDiagnosed DateAcute exacerbation of chronic obstructive pulmonary eglbclu9901/21/2024lcohol use zlrdyvxa26/26/7019Tcldqlf61/26/2024 Aspiration into lower respiratory tract01/21/2024cute on chronic respiratory failure with ffaarbihf18/26/2024losed head ctssmx4501/21/2024oronavirus niqdisnty41/26/5607Ckqsw04/26/2024History of bcxfzrawaijsxv56/26/2024Influenza A 01/21/2024Moderate persistent asthma, tcywrllfxkaay34/26/2024arainfluenza 01/21/2024olysubstance toxldmvudh01/26/2024ossible exposure to STD01/21/2024 Tracheo-esophageal lmlgarq1001/21/2024Viral URI01/21/20248591Uebsdlbyabz59/30/2024 Dyspnea on hpnmyfgf58/30/2024bnormal EKG009/25/20239125Waefaobplbzn88/30/2024Sleep apnea09/25/2023ronchiectasis without ttfcarwjcray98/30/2024Tobacco abuse 09/25/2023lcohol abuse09/25/2023peristalsis of ytjbkedox55/08/2017 Overview (01/21/2024): Congenital TEF s/p repair day [...] with Dr. Brennan or Dr. Colbert - [facility] 30 degrees. - Advance diet. Aspiration sklpbambh45/03/2017 Overview (01/21/2024): S/t chronic diminished esophageal motility [...] GrandmotherDeceased Social History Tobacco UseTypesPacks/DayYears UsedDateSmoking Tobacco: PnzxnzJtjxtppgko073 06/28/2013 - 06/28/2023Smokeless Tobacco: CurrentChewAlcohol UseStandard Drinks/WeekCommentsNever0 (1 standard drink = 0.6 oz pure alcohol)quit 2 weeks agoUT Safety & EnvironmentAnswerDate RecordedFear of Current or Ex-PartnerNot on file09/19/2023Emotionally AbusedNot on file09/19/2023hysically AbusedNot on file09/19/2023Sexually AbusedNot on file09/19/2023hysically or Sexually Abused Not on file09/19/2023Sex and Gender InformationValueDate RecordedSex Assigned at BirthNot on fileLegal EbyBcok5309/19/2023 1:06 PM EDTGender IdentityNot on file Sexual OrientationNot on file Last Filed Vital Signs Vital SignReadingTime TakenCommentsBlood Xzccelos717/7804 1:42 PM EDT Argeh561109/25/2023 1:42 PM EDTTemperature--Respiratory Llpb617709/25/2023 1:42 PM EDTOxygen Yoagrhinzq17%09/25/2023 1:42 PM EDTInhaled Oxygen Concentration-- Pqzpgx08.9 kg (118 lb 12.8 oz)09/25/2023 1:42 PM OVZUwxdwl191 cm (5' 3 ) 09/25/2023 1:42 PM EDTBody Mass Index21.04009/25/2023 1:42 PM EDT Plan of Treatment Health MaintenanceDue DateLast DoneCommentsMedicare Annual Wellness (AWV) 1990Depression Lfysfucyq94/03/2003Varicella Vaccines (1 of 2 - 13+ 2-dose series)08/29/2003Hepatitis B Vaccines (1 of 3 - 19+ 3-dose series)2009HPV Vaccines (1 - 3-dose SCDM series)2017COVID-19 Vaccine (1 - 2024- season) 2025Influenza Vaccine (#1)510/Adult Amlyfec8704/14/2032 2Pneumococcal Vaccine: Pediatrics (0 to 5 Years) [...] MemberRelationshipSpecialtyStart DateEnd Date Neetu Del Toro CNP [address] [place] [address], [place] [address] PCP - GeneralFamily Medicine09/24/23
--- OUTSIDE RECORDS SUMMARY | 2025-04-09 10:52 | XMS_ITS | Clinical Summary ---
Author Organization [facility] Address [address] [place] [id number] Care Team Providers Care Ditch Digger Name Role Phone Jay Avalos MD, Christopher [...] increased secretions and SOB. OSH transfer from [facility] where he presented with recurrent fever and SOB. Recent admission 11/13-11/16 for aspiration pneumonia, growing jacome-sensitive pseudomonas, discharged on oral Cipro and inhaled Tobramycin. Per his room mate Haja [phone] the patient never filledhis prescriptions. MICU Summary: 11/30: Admitted to MICU 12/01: Holding transfer to [facility] with borderline respiratory function. Remains on 3 L NC, continuing tocough. Asking us not to update parents on admission, spokesperson is Haja [phone], room mate. No HCPOA. 12/02: Now on [...] Paperwork needs to be completed. ProblemNoted DateDiagnosed HymuDufaqnnyjhmt24/04/2025Shortness of breath 12/14/2024bnormal CT of the chest12/14/2024Ground glass opacity present on imaging of lung12/14/2024LRTI (lower respiratory tract infection)12/14/2024 Tobacco abuse12/14/2024Tobacco abuse /20/2025History of illicit drug use12/14/2024Marijuana abuse12/14/2024MRSA (methicillin resistant staph aureus) culture fregfcdv56/20/2025History of repair of TEF12/14/2024ute asthma zcaopfatnpzi81/20/2025Acute respiratory failure with ksnftpv8612/13/2024 DISPOSITION AND FOLLOW-UP12/01/2016 Overview (12/02/2016): - Stable [...] in there. - Discussed with MICU staff. Psgqknxrk95/19/7263Mkwxfv44/22/2017Aperistalsis of yimfpfkxw81/08/2017 Overview (12/02/2016): Congenital TEF s/p repair day [...] Dr. Brennan or Dr. Colbert - [facility] 30 degrees. - Advance diet. Aspiration jmwoalmxr66/03/2017 Overview (09/30/2016): S/t chronic diminished esophageal motility [...] treatment Vanc/ zosyn to be started Reflux vzqhatazhro95/03/2017 Overview (06/30/2016): Hafsa Bronchiectasis with (acute) jtrmayqsyhcf76/03/2017 Resolved Problems ProblemNoted DateDiagnosed DateResolved DateDiarrhea of presumed infectious hbobru53Aspiration pneumonia of both lungs Overview (12/01/2016): Severe [...] his room mate Haja. Abdominal painSevere persistent kyvycs65 Overview (09/30/2016): Albuterol q4h wa + q4h prn RT c/s Vest therapy Added symbicort again Tracheoesophageal fistula, tvczvpmdxu87 Overview (07/05/2016): No current TEF per barium swallow H/o clayton fundoplication x2, most recent 15 yrs ago. 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 He has been hospitalized with aspiration 7 times in the past 5 months. He was transferred to [facility] 07/04. GI workup included barium swallow, emptying studies, EGD. Manometry is scheduled outpatient per GI notes. Alcohol abuse, hhyojgxnbsm03Alcohol-induced acute pancreatitis Immunizations ImmunizationAdministration DatesNext Dueinfluenza (IIV3) vaccine, age 6 mo - 64 yr, trivalent (AFLURIA, FLULAVAL, FLUVIRIN, FLUZONE)03/24/2016pneumococcal conjugate (PCV13) vaccine, 13 valent (PREVNAR 13)03/02/2016pneumococcal polysaccharide (PPV23) vaccine, 23 valent (PNEUMOVAX 23)11/10/2016 Family History Medical HistoryRelationCommentsDiabetesMotherRelationStatusCommentsMother Social History Tobacco UseTypesPacks/DayYears UsedDateSmoking Tobacco: FormerCigarettes0.57 03/12/2009 - 03/12/2016 Tobacco Cessation:Counseling Given: Not Answered Alcohol UseStandard Drinks/WeekCommentsNot Sefjgfjuo98 (1 standard drink = 0.6 oz pure alcohol)12 beers per day for 3 yearsAH UtilitiesAnswerDate RecordedIn the past 12 months has the [employer], gas, oil, or water [employer] threatened to shut off services in your [...] were you homeless or living in a detention (including now)? No12/25/2024rea Deprivation IndexAnswerDate RecordedNational Score (1-100), lower number is lower negv762112/14/2024State Score (1-10), lower number is lower phpo889612/14/2024Data from: https://www.neighborhoodatlas.medicine.[facility].edu/. Last address used for edlnuonlmit[address]/14/2024Sex and Gender InformationValueDate RecordedSex Assigned at BirthNot on fileLegal SexMale 06/21/2016 3:13 PM ESTGender IdentityNot on fileSexual OrientationNot on file Last Filed Vital Signs Vital SignReadingTime TakenCommentsBlood Muajunog709/8408 1:26 PM EDT Ydtlo864512/31/2024 1:36 PM KBBErlbjfxzswx68.5 ??C (97.7 ??F)12/31/2024 10:36 AM EDTRespiratory Tofq0902 1:36 PM EDTOxygen Wemymixkow70%12/31/2024 1:36 PM EDTInhaled Oxygen Concentration--Zvuxpq27.8 kg (123 lb)12/31/2024 10:36 AM NOUVoqrer118.5 cm (5' 2 )12/31/2024 10:36 AM EDTBody Mass Index22.508 10:36 AM EDT Plan of Treatment Health MaintenanceDue DateLast DoneCommentsAnnual PCP Team Chronic Disease Visit 2008nxiety Rwspatdju90/03/2009Depression Kyjtkooee47/03/2009Hepatitis C Lnxtejbag53/03/2009HPV Vaccine (1 - 3-dose SCDM series)2017[facility] Annual Wellness Visit05/28/2024ovid-19 Vaccine ( season) 2025Influenza Vaccine (#1)5106/02/2018, 02/12/2017, 03/24/2016, Additional history existsDTaP,Tdap,Td Vaccine (3 - Td or Tdap)03/31/2034 03/31/2024, 04/14/2022Hepatitis B CduuhbiTmnveijcg83/29/2008, 04/26/2007, 03/26/2007HIV GegpokzliDtemlheab67/22/2017 Goals GoalPatient Goal TypeAssociated ProblemsRecent ProgressPatient-Stated?Author Blood Pressure < 140/90 Blood Dlvbnghu518/84(12/31/2024 1:26 PM EDT)Leila Wheat APRN.TRIMMING DEPARTMENT BLOCKER Procedures Procedure NamePriorityDate/TimeAssociated DiagnosisCommentsHIV 1/2 COMBO WITH REFLEX TO PEDKWTJUAAYFXIYZgqhkxx87/22/2017 10:49 AM EDT from Last 3 Months or Most Recently Relevant to Health Maintenance Results * HIV 1,2 COMBO (AG/AB) (10/16/2016 10:49 AM EDT)ComponentValueRef RangeTest MethodAnalysis TimePerformed AtPathologist SignatureHIV 12 Combo (Ag/Ab)Non ReactiveNon Brwxgcao98/22/2017 8:58 PM EDTCPROMEDICA [facility] Comment: (NOTE) HIV Information: ??[place] Rev. Code 3701.243(E): This information has been [...] Giovana POWELL LABORATORYFinal ResultPerforming OrganizationAddressCity/State/ZIP CodePhone Number [facility] [address] [place] [address] from Last 3 Months or Most Recently Relevant to Health Maintenance Insurance Advance Directives * Full Code (Latest Code Status on File) Date ActivatedDate InactivatedComments12/24/2024 8:55 PM12/29/2024 8:38 PMQuestion AnswerCommentsFull Code Order Discussed With:* Patient * Full Code Date ActivatedDate InactivatedComments12/13/2024 7:13 PM12/14/2024 8:35 PMQuestion AnswerCommentsFull Code Order Discussed With:* Patient Care Teams Team MemberRelationshipSpecialtyStart DateEnd Date Nando Fuller MD [address] [address] PCP - GeneralPulmonary and Critical Care Medicine12/13/24 Jay Avalos MD Gastroenterology07/27/16
--- OUTSIDE RECORDS SUMMARY | 2025-04-09 10:52 | XMS_ITS | Clinical Summary ---
Author Organization [facility] Address [address] [place] [address] Care Team Providers Care Key Holder Name Role Phone Unavailable Primary Care Provider Unavailabl e Social History Tobacco UseTypesPacks/DayYears UsedDateSmoking Tobacco: Never AssessedSex and Gender InformationValueDate RecordedSex Assigned at BirthNot on fileLegal Sex Male08/09/2022 6:58 PM EDTGender IdentityNot on fileSexual OrientationNot on file Plan of Treatment Not on file Insurance * Guarantor: Luis Solomoncoronen TypeRelation to PatientDate of BirthPhone Billing AddressPersonal/IchbzuFzol73/03/1991 [address] [place] [address]
--- OUTSIDE RECORDS SUMMARY | 2025-04-09 10:52 | XMS_ITS | Clinical Summary ---
Author Organization [facility] Address [address] [facility] [place] [address] Phone Care Team Providers Care Vehicle Check In Clerk Name Role Phone Unavailable Primary Care Provider Unavailabl e Social History Tobacco UseTypesPacks/DayYears UsedDateSmoking Tobacco: Never AssessedSex and Gender InformationValueDate RecordedSex Assigned at BirthNot on fileLegal Sex Male04/22/2022 8:07 AM ESTGender IdentityNot on fileSexual OrientationNot on file Plan of Treatment Not on file
--- NOTE | 2025-04-09 11:04 | XR_ITS ---
[facility] [place] [id number] Patient Name: FRANCIS GALVEZ MRN: [id number] date: 1990 Sex: M Assigned Patient Location: ER Current Patient Location: ER Accession/Order Number: [id number] Exam Date: 04/09/2025 11:37 Report Date: 04/09/2025 12:08 At the request of: KYLIE COSTA MD Procedure: XR chest 1V PA CHEST: CLINICAL HISTORY: sob COMPARISON: 04/05/2025 Stable cardiomediastinal silhouette. Increased perihilar opacity. Emphysematous changes. Trace blunting costophrenic angles likely effusion or scarring. XR/XR chest 1V IMPRESSION: Chronic changes. Negative acute airspace disease. Impression dictated by: Saurav Álvarez M.D. 04/09/2025 12:08 PM Dictation Location: [place] [address] Electronically authenticated by: [id number] Y Date: 04/09/2025 12:08
[2025-04-09] MEDS: IPRATROPIUM/ALBUTEROL SULFATE 3 ML AMPUL.NEB IH (11:14)
[2025-04-09 11:15] VITALS: PULSE 80; O2SAT 97
[2025-04-09 11:18] LABS: SARS-CoV-2 Ag NEGATIVE (NEGATIVE)
[2025-04-09] MEDS: PREDNISONE 20 MG TABLET 40 MG PO (11:25)
--- NOTE | 2025-04-09 12:19 | ED.URI1 ---
HPI - URI/Sore Throat General Chief Complaint: Upper Respiratory Infection Stated Complaint: urti complaints Time Seen by Provider: 04/09/25 10:54 Source: patient Limitations: no limitations History of Present Illness HPI Narrative: The patient have a history of bronchiectasis as well as asthma when he was a kid in addition to a history of smoking, the patient presenting to us after he has been complaining of cough that is productive of greenish sputum associated with shortness of breath No nausea no vomiting no other concern he also have some chest pain sometime when he coughs mostly in the right side Related Data Home Medications ?Medication ?Instructions ?Recorded ?Confirmed trazodone 50 mg tablet 50 mg PO BEDTIME PRN sleep 09/13/23 04/05/25 esomeprazole magnesium 40 mg 40 mg PO .bidac 08/09/24 04/05/25 capsule,delayed release Previous Rx's ?Medication ?Instructions ?Recorded albuterol sulfate 2.5 mg/3 mL 2.5 mg (3 mL) inhalation Q6H PRN 05/25/23 (0.083 %) solution for nebulization shortness of breath or wheezing #75 mL albuterol sulfate 90 mcg/actuation 1 inh inhalation Q4H PRN shortness 03/22/24 aerosol inhaler of breath or wheezing #8.5 grams doxycycline hyclate 100 mg tablet 100 mg PO BID 7 days #14 tabs 04/09/25 ibuprofen 600 mg tablet 600 mg PO Q8H PRN pain #20 tabs 04/09/25 prednisone 20 mg tablet 40 mg (2 x 20 mg) PO DAILY 5 days 04/09/25 #10 tabs Allergies Allergy/AdvReac Type Severity Reaction Status Date / Time Penicillins Allergy Intermediate Hives Verified 04/09/25 10:52 Review of Systems ROS Status of ROS 10 or more systems reviewed and unremarkable except as noted in history and below [facility] Medical History (Updated 04/09/25 @ 12:20 by Comfort Stewart MD) Bronchiectasis ?J47.9 - Bronchiectasis, uncomplicated (ICD-10) Healthcare-associated pneumonia ?J18.9 - Pneumonia, unspecified organism (ICD-10) Asthma exacerbation ?J45.901 - Unspecified asthma with (acute) exacerbation (ICD-10) Hypoxemia ?R09.02 - Hypoxemia (ICD-10) Multifocal pneumonia ?J18.9 - Pneumonia, unspecified organism (ICD-10) Respiratory failure ?J96.90 - Respiratory failure, unspecified, unspecified whether with hypoxia or hypercapnia (ICD-10) Constipation ?K59.00 - Constipation, unspecified (ICD-10) Nausea and vomiting ?R11.2 - Nausea with vomiting, unspecified (ICD-10) Tobacco abuse ?Z72.0 - Tobacco use (ICD-10) Acute hypoxic respiratory failure ?J96.01 - Acute respiratory failure with hypoxia (ICD-10) Insomnia ?G47.00 - Insomnia, unspecified (ICD-10) Hypernatremia ?E87.0 - Hyperosmolality and hypernatremia (ICD-10) Right lower lobe pneumonia ?J18.9 - Pneumonia, unspecified organism (ICD-10) Lactic acidosis ?E87.20 - Acidosis, unspecified (ICD-10) Chronic hypoxic respiratory failure, on home oxygen therapy ?J96.11 - Chronic respiratory failure with hypoxia (ICD-10) ?Z99.81 - Dependence on supplemental oxygen (ICD-10) Asthma exacerbation ?J45.901 - Unspecified asthma with (acute) exacerbation (ICD-10) Upper respiratory infection ?J06.9 - Acute upper respiratory infection, unspecified (ICD-10) Esophagitis with gastritis ?K29.70 - Gastritis, unspecified, without bleeding (ICD-10) ?K20.90 - Esophagitis, unspecified without bleeding (ICD-10) Leukocytosis ?D72.829 - Elevated white blood cell count, unspecified (ICD-10) Dyspnea ?R06.00 - Dyspnea, unspecified (ICD-10) Hypoxia ?R09.02 - Hypoxemia (ICD-10) Depression with anxiety ?F41.8 - Other specified anxiety disorders (ICD-10) Steroid-induced hyperglycemia ?R73.9 - Hyperglycemia, unspecified (ICD-10) ?T38.0X5A - Adverse effect of glucocorticoids and synthetic analogues, initial encounter (ICD-10) Hyponatremia ?E87.1 - Hypo-osmolality and hyponatremia (ICD-10) Chest wall pain ?R07.89 - Other chest pain (ICD-10) Pneumonia ?J18.9 - Pneumonia, unspecified organism (ICD-10) Malnutrition of moderate degree ?E44.0 - Moderate protein-calorie malnutrition (ICD-10) Depression ?F32.A - Depression, unspecified (ICD-10) Bronchiectasis ?J47.9 - Bronchiectasis, uncomplicated (ICD-10) Upper respiratory infection ?J06.9 - Acute upper respiratory infection, unspecified (ICD-10) Acute hypokalemia ?E87.6 - Hypokalemia (ICD-10) Avulsion of skin ?T14.8XXA - Other injury of unspecified body region, initial encounter (ICD-10) Influenza ?J11.1 - Influenza due to unidentified influenza virus with other respiratory manifestations (ICD-10) Marijuana abuse ?F12.10 - Cannabis abuse, uncomplicated (ICD-10) Coronavirus infection ?B34.2 - Coronavirus infection, unspecified (ICD-10) Pneumonia ?J18.9 - Pneumonia, unspecified organism (ICD-10) Hospital-acquired bacterial pneumonia ?J15.9 - Unspecified bacterial pneumonia (ICD-10) COVID-19 ?U07.1 - COVID-19 (ICD-10) GERD (gastroesophageal reflux disease) ?K21.9 - Gastro-esophageal reflux disease without esophagitis (ICD-10) 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 - Pyothorax with fistula (ICD-10) Shortness of breath ?R06.02 - Shortness of breath (ICD-10) Chronic dyspnea ?R06.09 - Other forms of dyspnea (ICD-10) Viral infection ?B34.9 - Viral infection, unspecified (ICD-10) Hypoxia ?R09.02 - Hypoxemia (ICD-10) Acute asthma exacerbation ?J45.901 - Unspecified asthma with (acute) exacerbation (ICD-10) Bronchitis ?J40 - Bronchitis, not specified as acute or chronic (ICD-10) History of home oxygen therapy ?Z99.81 - Dependence on supplemental oxygen (ICD-10) Oxygen desaturation during sleep ?G47.34 - 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) History of gastrostomy tube placement Abdominal pain, acute ?R10.9 - Unspecified abdominal pain (ICD-10) Surgical History History of fundoplication ?Z98.890 - Other specified postprocedural states (ICD-10) History of appendectomy ?Z90.49 - Acquired absence of other specified parts of digestive tract (ICD-10) H/O chest tube placement ?Z98.890 - Other specified postprocedural states (ICD-10) History of facial surgery ?Z98.890 - Other specified postprocedural states (ICD-10) Family History Mother Family history of diabetes mellitus Family history of hypertension Grandmother Family history of diabetes mellitus Grandfather Family history of myocardial infarction Social History Within the past year, how often did you have a drink containing alcohol: monthly or less Within the past year, how many standard drinks containing alcohol did you have on a typical day: 1 or 2 Within the past year, how often did you have six or more drinks on one occasion: less than monthly Total score: 1 Score interpretation: A score less than 4 is consistent with normal alcohol consumption. 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 [employer] Known occupational exposures/hazards: No Highest level of school completed/degree received: high school graduate Are you now , , , , never or living with a partner: In a typical week, how many times do you talk on the telephone with family, friends, or neighbors: 3 or more times per week How often do you get together with friends or relatives: once per week How often do you attend mandaen or buddhist services: never Do you belong to any clubs or organizations such as mandaen groups unions, fraternal or athletic groups, or school groups: no Total score: 1 Score interpretation: A score of less than or equal to 1 indicates the most socially isolated. Little interest or pleasure in doing things: not at all Feeling down, depressed, or hopeless: not at all Feel stressed/tense/nervous/anxious/difficulty sleeping: not at all Do you think of yourself as: straight/heterosexual Gender Identity: male Exam Narrative Exam Narrative: Nurses notes and vital signs reviewed and patient is not hypoxic. General: Well-appearing and in no apparent distress. Skin: Warm, dry, no pallor noted. No rash. Head: Normocephalic, atraumatic. Neck: Supple, non-tender. Cardiovascular: Regular Rate and Rhythm without murmur, gallop or rub. Respiratory: No accessory muscle use or respiratory distress. Lungs rhonchi heard in both lung clifford as well as distant breathing sound in the upper part of the lung clifford Back: No midline thoracic or lumbar vertebral tenderness. No CVA tenderness Musculoskeletal: normal ROM, no calf or popliteal tenderness, no lower extremity edema/swelling GI: Abdomen is soft, non-distended. Normal bowel sounds. No masses appreciated. No tenderness to palpation. No rebound, guarding, or rigidity noted. Neurological: A&O x4. No cranial nerve dysfunction observed. No truncal ataxia. Moves all extremities. Sensation intact. Psychiatric: Cooperative and interactive. Normal mood and affect. Constitutional Vital Signs, click to edit/add: Last Vital Signs Temp 97.9 F 04/09/25 10:50 Pulse 80 04/09/25 11:15 Resp 18 04/09/25 10:50 BP 104/67 04/09/25 10:50 Pulse Ox 97 04/09/25 11:15 O2 Del Method Room Air 04/09/25 11:15 Course Vital Signs Vital signs: Vital Signs Temperature 97.9 F 04/09/25 10:50 Pulse Rate 81 04/09/25 10:50 Respiratory Rate 18 04/09/25 10:50 Blood Pressure 104/67 04/09/25 10:50 Pulse Oximetry 95 04/09/25 10:50 Oxygen Delivery Method Room Air 04/09/25 10:50 Temperature 97.9 F 04/09/25 10:50 Pulse Rate 80 04/09/25 11:15 Respiratory Rate 18 04/09/25 10:50 Blood Pressure 104/67 04/09/25 10:50 Pulse Oximetry 97 04/09/25 11:15 Oxygen Delivery Method Room Air 04/09/25 11:15 MDM - URI/Sore Throat MDM Narrative Medical decision making narrative: The patient chest x-ray showed no acute pathology but he does have a lot of chronic changes and he have a history of bronchiectasis and history of smoking cigarettes and history of asthma with the fact that the patient have a history of greenish sputum that associated shortness of breath and the fact that he have a history of smoking The patient will be covered for possible COPD exacerbation and treated with doxycycline The patient also provided with prednisone and he have a machine at home to start giving himself nebulized medication want albuterol for the next few days every 6 hours The patient to follow-up with the primary care within 2 to 3 days and to come back to the ER in case of any worsening of the current symptoms or any new symptoms or concerns Lab Data Labs: Lab Results 04/09/25 Range/Units 10:55 Influenza Type A Ag Negative Influenza Type B Ag Negative SARS-CoV-2 Ag (CV2AG) Negative (NEGATIVE) Discharge Plan Discharge Chief Complaint: Upper Respiratory Infection Clinical Impression: Pneumonia, Acute asthma exacerbation Patient Disposition: Home, Self-Care Time of Disposition Decision: 12:20 Condition: Good Prescriptions / Home Meds: New prednisone 20 mg tablet 40 mg PO DAILY 5 Days Qty: 10 0RF ibuprofen 600 mg tablet 600 mg PO Q8H PRN (Reason: pain) Qty: 20 0RF doxycycline hyclate 100 mg tablet 100 mg PO BID 7 Days Qty: 14 0RF No Action trazodone 50 mg tablet 50 mg PO BEDTIME PRN (Reason: sleep) albuterol sulfate 90 mcg/actuation HFA aerosol inhaler 1 inh inhalation Q4H PRN (Reason: shortness of breath or wheezing) Qty: 8.5 0RF albuterol sulfate 2.5 mg /3 mL (0.083 %) solution for nebulization 2.5 mg inhalation Q6H PRN (Reason: shortness of breath or wheezing) Qty: 75 0RF esomeprazole magnesium 40 mg capsule,delayed release(DR/EC) 40 mg PO .bidac Print Language: Latvian Instructions: Asthma (DC), Community Acquired Pneumonia (DC) Additional Instructions: Please provide yourself with a breathing treatment almost every 6 hours for the next 2 days after that uses only when needed The patient to follow-up with the primary care within 2 to 3 days and to come back to the ER in case of any worsening of the current symptoms or any new symptoms or concerns Referrals: REBEKAH BARBOZA [Primary Care Provider, Family Practice] - 1 week Discharge Date/Time: 04/09/25 12:42
[2025-04-09] MEDS: KETOROLAC TROMETHAMINE 30 MG/ML VIAL IM (12:26)
== END 2025-04-09 12:42 | disposition home or self-care (01) ==
PROVIDERS: Emergency Provider Emergency Medicine; PCP Nurse Practitioner Family
DX: J18.9 Pneumonia, unspecified organism (principal); J45.901 Unspecified asthma with (acute) exacerbation; R06.02 Shortness of breath; Z87.891 Personal history of nicotine dependence
CPT/HCPCS: 71045; 87804; 87811; 94640; 96372; 99284; J1885; J7512

== ENCOUNTER 2025-04-19 08:55 | Emergency (ER) | payer MEDICARE, MEDICAID, SELFPAY ==
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
--- OUTSIDE RECORDS SUMMARY | 2024-03-24 05:00 | XMS_ITS ---
Author Organization [facility] vices Address [address] [place] [id number] Care Team Providers Care Senior Business Broker Name Role Phone Naun Arora Primary Care Provider [phone] REASON FOR VISIT Wellness Social History Sex Assigned At : Social History Observation Description Sex Assigned At Male Encounters Encounter Location Date Provider Diagnosis [place] [address] [facility] [place] [address] 03/24/2024 Naun Arora Plan Of Treatment No Information Progress Notes * LENNYAntoinette AranaOB:1990 ([age] yo M)Acc No.[id number]:03/24/2024 Medical Note Patient: Luis Carter :OSCAR VangCDOB:1990???Age:33 Y ???Sex:MaleDate:03/24/2024hone:[phone]:[address] [id number] Subjective: * Chief Complaints: * W ellness * Electronic signature of Naun Arora NP on 04/19/2025 at 09:45 AM ESTSign off status: Pending * Provider: NADEEN Wheatley Date: Generated for Printing/Faxing/eTransmitting on:?04/19/2025 09:45 AM EST
--- OUTSIDE RECORDS SUMMARY | 2024-08-04 05:30 | XMS_ITS ---
Author Organization The [facility] in [place] Address [address] [place] [address] Care Team Providers Care Tooth Cutter Pinion Name Role Phone Neetu Del Toro Primary Care Provider REASON FOR VISIT fever body chills Encounters Encounter Location Date Provider Diagnosis [facility] [address] [place] [phone] 08/04/2024 Neetu Del Toro Plan Of Treatment Next Appt Details Provider Name:Neetu nickerson, 06/04/2025 01:00:00 PM, [address] [place] [address], [phone], Progress Notes * Luis GALVEZ TDOB:1990 (34 yo M)Acc No.[id number]:08/04/2024 UNLOCKED PROGRESS NOTE Progress Note Patient: Luis VALENZUELA :?Neetu Del Toro ([facility]), CNPDOB:1990 ???Age:33 Y???Sex:MaleDate:08/04/2024Phone:[phone]:[address] [place] [phone] Subjective: * Chief Complaints: * 1 . Fever body chills. * Medical History: Objective: * Vitals: Assessment: Plan: * Treatment: * * Electronic signature of Neetu Del Toro NP, VENETIAN BLIND INSTALLER.PHOTOGRAPHIC [id number] on 04/19/2025 at 09:45 AM ESTSign off status: PendingVisit Status:?CANC (Cancelled) * Provider: Bruce Del Toro ([facility]), PHOTOGRAPHIC COLORIST Date: 0 08/04/2024 Generated for Printing/Faxing/eTransmitting on:?04/19/2025 09:45 AM EST
--- OUTSIDE RECORDS SUMMARY | 2024-09-09 04:32 | XMS_ITS | Continuity of Care Document ---
Demographics Address [address] [facility] [address] [place] [address] Home Phone Preferred Language en Marital Status Unknown Lutheran Affiliation Unknown Race Unknown Additional Race(s) Other Race Ethnic Group Unknown Author Organization [facility] Address [address] [place] [address] Phone Care Team Providers Care Mold Press Operator Name Role Phone Rani Polanco Unavailable Unavailable Allergies, Adverse Reactions, Alerts Substance Reaction Status Criticality No Known Allergies Active No Inform ation Medications Medication Instructions Dosage Effective Dates (start - stop) Status Comments ProAir RespiClick 90 mcg/actuation breath activated inhale 2 puff by inhalation route every 4 - 6 hours as needed 180 MCG - Active Imodium A-D 2 mg capsule take 2 capsule by oral route after 1st loose stool, followed by 1 capsule after each subsequent loose stool not to exceed 16 mg/day 4 MG - Active promethazine 25 mg rectal suppository insert 1 suppository by rectal route every 4 hours as needed 25 MG - Active dicyclomine 10 mg capsule take 1 capsule by oral route 3 times every day 10 MG - Active ondansetron [address] 2 tablet by translingual route 2 times every day on top of the tongue where they will dissolve, then swallow 8 MG - Active Procedures Procedure Date Acute Detox Reading Efficiency Course Director ROUTINE VENIPUNCTURE DRUG TEST PRSMV DIR OPT OBS Bitewings-two Films Intraoral-periapical 1st Film [id number] Additional Aug Oral Hygiene Instruction Oral Hygiene Instruction Limited Oral Eval Extract; Erupted Th/exposted Rt -2 025 Acute Detox Reading Efficiency Course Director Acute Detox Reading Efficiency Course Director Acute Detox Reading Efficiency Course Director Acute Detox Reading Efficiency Course Director Acute Detox Reading Efficiency Course Director ASSAY OF BREATH ETHANOL COVID-19 Antigen Test DRUG TEST PRSMV DIR OPT OBS Acute Detox Reading Efficiency Course Director Advance Directives Directive Yes / No Effective Date File Name No Information Encounters Encounter Description Practice Location Reason(s) For Visit Diagnoses Date Provider Providers Copied on Encounter [facility], [address] [place] [address], [id number] , [place] tel: [phone] [facility] Detox No Information 5 Klidas Rani. [address] [place] [address], [id number] , [place]. tel: [phone] [facility], [address] [place] [address], [id number] , [place] tel: [phone] [facility] dental ER (chief complaint) Encounter for screening for dental disorders 5 Markus Blackman. . tel: [phone] [facility], [address] [place] [address], [id number] , [place] tel: [phone] [facility] Detox No Information 5 Klidas Rani. [address] [place] [address], [id number] , [place]. tel: [phone] [facility], [address] [place] [address], [id number] , [place] tel: [phone] [facility] Detox No Information 5 Klidas Rani. [address] [place] [address], [id number] , [place]. tel: [phone] [facility], [address] [place] [address], [id number] , [place] tel: [phone] [facility] Detox No Information 5 Tyler Thompson. [address] [place] [address], [id number], [place]. tel: [phone] [facility], [address] [place] [address], [id number] , tel:+ [phone] [facility] Detox Alcohol dependence with withdrawal, uncomplicatedBronchie ctasisTobacco use disorder, moderate Mar-2 3-202 3 Klidas Rani. [address], [place], [id number] , . tel:+ [phone] [facility], [address] [place] [address], [id number] , [place] tel:+ [phone] [facility] Detox substance abuse (chief complaint) Alcohol dependence with withdrawal, uncomplicatedBronchie ctasisTobacco use disorder, moderate Mar-2 2-202 3 Klidas Rani. [address] [place] [address], [id number] , [place]. tel: [phone] [facility], [address] [place] [address], [id number] , tel: [phone] [facility] Detox Alcohol dependence with withdrawal, uncomplicatedBronchie ctasisTobacco use disorder, moderate Mar-2 2-202 3 Klidas Rani. [address], [place], [id number] , [place]. tel: [phone] [facility], [address] [place] [address], [id number] , tel: [phone] [facility] Detox Alcohol dependence with withdrawal, uncomplicatedEncounte r For Screening For Covid-19 Jul- 3 Klidas Rani. [address] [place] [address], [id number] , [place]. tel:+ [phone] Family History Family Member Type Diagnosis Age At Onset No Information Payers Payer name Insurance type Covered republican ID Authoriza tion(s) No Information Social History Type Description Quantity Date Captured Comments Sex Male Smoking Status No Information Sexual Orientation Straight or heterosexual Gender Identity Male Chief Complaint And Reason For Visit No Information Reason For Referral Reason For Referral No Information Plan Of Treatment Date Type Action Status Goal PRAPARE ASSESSMENT. Due on A due Goal Unhealthy drug use screening . Due on due Goal Hepatitis C screening. Due o n due Goal Tdap. Due on due Goal Depression screening. Due on due Goal Influenza vaccine. Due on Ap due Goal Tdap Vaccine. Due on 2024 due Goal RLP. Due on due Goal Influenza vaccine. Due on Wy due Goal Tdap Vaccine. Due on 2022 due Goal PRAPARE ASSESSMENT. Due on M due Goal Depression screening. Due on due Goal Tdap. Due on due Goal RLP. Due on due Goal RLP. Due on due Goal Tdap. Due on due Goal PRAPARE ASSESSMENT. Due on M due Goal Tdap Vaccine. Due on 2022 due Goal Depression screening. Due on due Goal Influenza vaccine. Due on Wy due Goal PRAPARE ASSESSMENT. Due on M due Goal Influenza vaccine. Due on Wy due Goal RLP. Due on due Goal Tdap. Due on due Goal Tdap Vaccine. Due on 2022 due Goal Depression screening. Due on due Goal Tdap Vaccine. Due on 2022 due Goal Hep A. Due on du e Goal Depression screening. Due on due Goal RLP. Due on due Goal Influenza vaccine. Due on Ma due Goal PRAPARE ASSESSMENT. Due on M due Goal Tdap. Due on due History Of Present Illness Encounter Date Complaint History Of Prese nt Illness dental ER dental ER substance abuse The symptoms are reported as being moderate. The symptoms occur constantly. He states the symptoms are acute and are of new onset. AoD Assessment reviewed. 31 yr old male admitted for Alcohol Dependency with withdraw, pt reports he has been drinking on and off since age 15, relapsed 1 month ago, has been drinking 3-6 tallboys daily since. Last drink was 08/14/22 at 8am. Pt reports a hx of Asthma, bronchiectasis, Anxiety and Depression. Pt was at [facility] for Alcohol withdraw on 08/15/22 and treated with benzos. Functional Status Date Functional Assessmen t No Information Instructions Date Instruction Additional Infor timmy Encourage PO fluids - Related to Alcohol dependence with withdrawal, uncomplicated Assessments Type Assessment Date No Information Patient Care Teams Name Effective Dates (start - stop) Status Members No Information
--- OUTSIDE RECORDS SUMMARY | 2025-01-08 08:30 | XMS_ITS ---
Author Organization [facility] in [place] Address [address] [place] [address] Care Team Providers Care Paring Machine Operator Name Role Phone Neetu Del Toro Primary Care Provider [phone] REASON FOR VISIT multiple issues Encounters Encounter Location Date Provider Diagnosis [address] [address] 01/08/2025 Neetu Del Toro Plan Of Treatment Next Appt Details Provider Name:Neetu nickerson, 06/04/2025 01:00:00 PM, [address] [place], [address], Progress Notes * Luis GALVEZ TDOB:1990 (34 yo M)Acc No.[id number]:01/08/2025 UNLOCKED PROGRESS NOTE Progress Note Patient: Luis VALENZUELA :?Neetu Del Toro ([facility]), CNPDOB:1990 ???Age:34 Y???Sex:MaleDate:01/08/2025Phone:[phone]:[address] [place] [id number] Subjective: * Chief Complaints: * 1 . Multiple issues. * Medical History: Objective: * Vitals: Assessment: Plan: * Treatment: * * Electronic signature of Neetu Del Toro NP, MELTER SUPERVISOR.SITE [email or web address] on 04/19/2025 at 09:45 AM ESTSign off status: PendingVisit Status:?N/S N/C (No Show/No Charge) * Provider: Bruce Del Toro ([facility]), SITE MANAGER Date: 0 01/08/2025 Generated for Printing/Faxing/eTransmitting on:?04/19/2025 09:45 AM EST
--- OUTSIDE RECORDS SUMMARY | 2025-02-27 08:30 | XMS_ITS ---
Author Organization [facility] in [place] Address [address] [place] [address] Care Team Providers Care Blister Pack Operator Name Role Phone Neetu Del Toro Primary Care Provider REASON FOR VISIT 1 mo f/u Encounters Encounter Location Date Provider Diagnosis [facility] [address] [place] [phone] 02/27/2025 Neetu Del Toro Plan Of Treatment Next Appt Details Provider Name:Neetu nickerson, 06/04/2025 01:00:00 PM, [address] [place] [address], [phone], Progress Notes * Luis GALVEZ TDOB:1990 (34 yo M)Acc No.[id number]:02/27/2025 UNLOCKED PROGRESS NOTE Progress Note Patient: Luis VALENZUELA :?Neetu Del Toro ([facility]), CNPDOB:1990 ???Age:34 Y???Sex:MaleDate:02/27/2025Phone:[phone]:[address] [place] [id number] Subjective: * Chief Complaints: * 1 . 1 mo f/u. * Medical History: Objective: * Vitals: Assessment: Plan: * Treatment: * * Electronic signature of Neetu Del Toro NP, IMMIGRATION MANAGER.POTATO GRADER.[id number] on 04/19/2025 at 09:46 AM ESTSign off status: PendingVisit Status:?N/S N/C (No Show/No Charge) * Provider: Bruce Del Toro ([facility]), POTATO GRADER Date: Generated for Printing/Faxing/eTransmitting on:?04/19/2025 09:46 AM EST
--- OUTSIDE RECORDS SUMMARY | 2025-04-07 08:45 | XMS_ITS ---
Author Organization [facility] Address [address] [place] [address] Care Team Providers Care Assurance Manager Insurance Name Role Phone Dr. Robert Lang Primary Care Provider [phone] Daphne Yu Unavailable [phone] REASON FOR VISIT TOOTH SMOOTHED OUT Encounters Encounter Location Date Provider Diagnosis [facility] [address] [place] [address] 04/07/2025 Daphne Yu Plan Of Treatment Next Appt Details Provider Name:Veronique Yi, 09/2024 11:00:00 AM, [address], [place], [address], Provider Name:Veronique Elizabeth, 04/2025 11:15:00 AM, [address], [place], [address], Provider Name:Zee New , 10/02/2025 02:00:00 PM, [address], [place], [address], Progress Notes * FRANICS GALVEZ TDOB:1990 (34 yo M)Acc No.[id number]:04/07/2025 Patient:?FRANCIS GALVEZ :?Daphne YuDOB:1990???Age:34 Y???Sex:Male Date:04/07/2025Phone:[phone]:[address], [address], [place], [id number]:Dr. Robert Lang Subjective: * Chief Complaints: * T OOTH SMOOTHED OUT Billing Information: * Procedure Codes: * Electronic signature of Daphne Yu DMD on 04/19/2025 at 09:45 AM ESTSign off status: Pending * Provider: Chelsie Yu Date: 1 06/07/2024 Generated for Printing/Faxing/eTransmitting on:?04/19/2025 09:45 AM EST
--- OUTSIDE RECORDS SUMMARY | 2025-04-13 06:00 | XMS_ITS ---
Author Organization [facility] in [place] Address [address] [place] [address] Care Team Providers Care Associate Professor Name Role Phone Neetu Del Toro Primary Care Provider Allergies Allergen (clinical drug ingredient) Drug/Non Drug Allergy documented on EMR Reaction Allergy Type Onset Date Status naproxen Naproxen unknown Drug Allergy ActivePenicillinUnknownDrug AllergyActive REASON FOR VISIT ER f/u- Asthma/Pneumonia- taking doxycycline, doesn't want to take the prednisone- binds him, Patient said he has been struggling doing normal things around the house- oxygen has been up and down, Seeing Pulmonology September 29 for routine follow-up Medications Medication SIG (Take, Route, Frequency, Duration) Notes Start Date End Date Status Albuterol Sulfate HFA 108 (9 0 Base) MCG/ACT 1-2 puff as needed Inhalation every 4 hr s; Duration: 30 days ActiveAsmanex HFA 100 MCG/ACT2 puffs in the evening Inhalation Once a dayActive Pantoprazole Sodium 40 MG1 tablet Orally bidActiveOxygen -as directed dx asthma Daily at night; Duration: 30 days05/31/2016ActiveNebulizer -Use as directed with albuterol DX: J45.5015ActiveAlbuterol Sulfate (2.5 MG/3ML) 0.083%3 mL as needed Inhalation every 6 hrs; Duration: 30 daysActive Social History Tobacco Use: Social History Observation Description Date Details (start date - stop date) Former Smoker NA - NA Tobacco Use/Smoking Question Answer Notes Patient is a former smoker How long has it been since you last smoked?1-3 months Vital Signs Weight 129.2 lbs 04/13/2025 Height 62.75 in 04/13/2025 Blood pressure systolic 102 mm Hg 04/13/20 25 Blood pressure diastolic 68 mm Hg 025 BMI 23.07 kg/m2 04/13/2025 Oximetry 95 % 04/13/2025 Encounters Encounter Location Date Provider Diagnosis [address] [address] 04/13/2025 Neetu Del Toro Pneumonia J18.9 Assessments Encounter Date Diagnosis (ICD Code) Assessment Notes Treatment Notes Treatment Clinical Notes Section Notes 04/13/2025 Pneumonia (ICD-10 - J18.9) some improvement finish doxy, add oral prednisone fu as needed Plan Of Treatment Treatment Notes Assessment Notes Pneumonia some improvement finish doxy, add oral prednisone fu as needed Next Appt Details Follow Up: prn, Reason: Provider Name:Neetu nickerson, 06/04/2025 01:00:00 PM, [address] [place] [address], [id number], Progress Notes * Luis GALVEZ TDOB:1990 (34 yo M)Acc No.[id number]:04/13/2025 Progress Note Patient: Luis VALENZUELA :?Neetu Mathew Alverto ([facility]), CNPDOB:1990 ???Age:34 Y???Sex:MaleDate:04/13/2025Phone:[phone]:[address], [place]-[id number] In:10:54 AM ESTCheck Out:11:30 AM EST Subjective: * Chief Complaints: * 1 . ER f/u- Asthma/Pneumonia- taking doxycycline, doesn't want to take the prednisone- binds him. 2. Patient said he has been struggling doing normal things around the house- oxygen has been up and down. 3. Seeing Pulmonology May for routine follow-up. * HPI: ???General:? breathing some better oxygen down to 89-90% when up and walking working at [employer] gets disability. * ROS: ???General/Constitutional:?Fever?denies.?Headache?denies.?Weight loss denies.?Ophthalmologic:?Discharge?denies.?Eye Pain?denies.?Itching and redness?denies.?ENT:?Nasal discharge?denies.?Nasal congestion?denies. Sore throat?denies.?Cardiovascular:?Chest tightness/ heavy pressure?denies.?Rapid heart rate?denies.?Swelling of extremities?denies.?Chest pain?denies.?Respiratory:?Productive cough?denies.?Chest pain?little.?Cough?denies.?Shortness of breath?some, worse with activity.?Wheezing?denies.?Gastrointestinal:?Abdominal pain?denies.?Constipation?denies.?Decreased appetite?denies.?Diarrhea?denies.?Nausea?denies.?Vomiting denies.?Genitourinary:?Urinary incontinence?denies.?Painful urination?denies.?Musculoskeletal:?Back pain?denies.?Neck pain?denies.?Muscle aches?denies.?Skin:?Rash?denies.?Skin lesion(s)?denies.? * Active Problem List M25.511 Pain in right should er Modified On:09/25/2022U Status:skgliezbgM42.1Atresia of esophagus with tracheo-esophageal fistula Modified On:09/25/2022 Status:sgotfbengQ42.9Pneumonia Modified On:09/25/2022U Status:bhxwwboiwF93Chllpyvvwy Modified On:05/03/2023U Status:unszowwvhL30.0Gastroesophageal reflux disease with esophagitis Modified On:09/25/2022 Status:yaqkbllveR33.50Uncomplicated severe persistent asthma Modified On:09/25/2022 Status:giveobnsaQ49.0Aspiration pneumonitis Modified On:09/25/2022 Status:pdhlekewvQ09.9Gastro-esophageal reflux disease Modified On:09/25/2022 Status:uxlcyxprrV39.8Carrier of resistant Pseudomonas aeruginosa Modified On:09/25/2022 Status:enthlsfgvY75.11Alcohol abuse, in remission Modified On:09/25/2022 Status:maxqfyheeZ87.21Narcotic dependence, in remission Modified On:09/25/2022 Status:iiyezglptK12.118Patient's noncompliance with dietary regimen for other reason Modified On:09/25/2022 Status:deohrnrlxV15.199Noncompliance with treatment plan Modified On:09/25/2022 Status:slwglropoO01.9Bronchiectasis Modified On:06/19/2016 Status:lfemdfyowE58.1Bronchiectasis with acute exacerbation Modified On:07/21/2023 Status:gwhsczhbtM58.901Acute asthma exacerbation Modified On:04/17/2023 Status:qcdnfficbI07.0Panic attack Modified On:07/30/2023 Status:pmuanauoiH69.901Asthma exacerbation Modified On:07/30/2023 Status:kzwtkgasmV32.829Elevated WBCs Modified On:07/21/2023 Status:tyhdbslqaY61.1GAD (generalized anxiety disorder) Modified On:05/03/2023 Status:pifsurwaeE00.9IBS (irritable bowel syndrome) Modified On:05/03/2023 Status:zztmjqmisY57.02Shortness of breath Modified On:05/07/2023 Status:glcaqhgnwZ91.81On home oxygen therapy Modified On:07/21/2023 Status:dlhkfgjokU10.9GERD (gastroesophageal reflux disease) Modified On:07/21/2023 Status:vbhsqjazlZ98.1Bronchiectasis with (acute) exacerbation Modified On:07/21/2023 Status:bpitxnjosK89.00Dyspnea Modified On:09/04/2023 Status:wacumoqxsX95.10Cannabis abuse, uncomplicated Modified On:09/05/2023 Status:fvolannrsP21.00Insomnia Modified On:09/12/2023 Status:zseqakdomE62.9Anxiety Modified On:09/12/2023 Status:pfchclbmtX03.11Chronic respiratory failure with hypoxia Modified On:10/11/2023 Status:frvrmgzcnR95.1Acute exacerbation of bronchiectasis Modified On:02/22/2024 Status:pvukreahsZ28.0Bronchiectasis with acute lower respiratory infection Modified On:03/05/2024 Status:dtzhcjrjjQ76.11Chronic hypoxemic respiratory failure Modified On:03/05/2024 Status:qyyqpinsuN32.8Anxiety and depression Modified On:04/10/2024 Status:rpcgkwyfrB19.1COPD exacerbation Modified On:04/10/2024 Status:ergkhgkqvR32.1Mild protein malnutrition Modified On:04/10/2024 Status:otakjhvfxE17.1Mild protein-calorie malnutrition Modified On:04/14/2024 Status:abnorbgygP14.9COPD (chronic obstructive pulmonary disease) Modified On:04/16/2024 Status:senijydahO51.21Acute and chronic respiratory failure with hypoxia Modified On:05/29/2024 Status:woduofwuuZ78.909Asthma Modified On:07/03/2024 Status:ipjhowttaF07.9Depression Modified On:07/03/2024 Status:pyhbjfzdpO11.01Primary insomnia Modified On:08/21/2024 Status:glayxmbcsY67.10Marijuana abuse Modified On:09/08/2024 Status:kvqwlkojeB99.8Depression with anxiety Modified On:09/08/2024 Status:confirmed * Medical History: B ronchiectasis, Uncomplicated severe persistent asthma, Gastroesophageal reflux disease with esophagitis, Bronchitis, 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 * Surgical History: T EF at , Facial Reconstruction Rt side. Metal plate rt side of face , EGD 11/18, EGD- esophagus stretching 11/2024. * Hospitalization/Major Diagno stic Procedure: m ultiple times for resp issues , Pneumonia 2023, Pneumonia 2024, ABD Pain - [facility] another stay for Pneumonia 11/2024, Resp issues 03/21. * Family History: F ather: alive. M other: alive, diagnosed with Diabetes. B rother(s): alive. S ister(s): alive. 2 brother(s) , 3 sister(s) . 1 son(s) . . Sister has a lot of health issues but does not know what they are. * Social History: ???Tobacco Use:?Tobacco Use/Smoking?Patient is a?former smoker ?How long has it been since you last smoked? 1-3 months * Medications: T aking Albuterol Sulfate (2.5 MG/3ML) 0.083% Nebulization Solution 3 mL as needed Inhalation every 6 hrs , Taking Albuterol Sulfate HFA 108 (90 Base) MCG/ACT Aerosol Solution 1-2 puff as needed Inhalation every 4 hrs , Taking Asmanex HFA(Mometasone Furoate) 100 MCG/ACT Aerosol 2 puffs in the evening Inhalation Once a day , Taking Nebulizer - Miscellaneous Use as directed with albuterol DX: J45.50 , Taking Oxygen - - as directed dx asthma Daily at night , Taking Pantoprazole Sodium 40 MG Tablet Delayed Release 1 tablet Orally bid , Medication List reviewed and reconciled with the patient * Allergies: N aproxen: unknown - Criticality High, Penicillin. Objective: * Vitals: W t:129.2lbs, Ht: 62.75 in, BP:102/68mm Hg, BMI:23.07Index, Oxygen sat %:95%, Ht- cm: 159.39 cm, Wt-k.6 kg. * Examination: ???General Examinations: ?GENERAL APPEARANCE:?alert and oriented,?in no acute distress.?EYES:?conjunctiva normal, sclera non-icteric.?NOSE:?normal external appearance.?LUNGS:?no wheezes, no rhonchi,??little?diminished breath sounds throughout.?CARDIO:?regular rate and rhythm, S1, S2 normal, no murmurs, no edema.?MUSCULOSKELETAL:?Gait and station normal.?SKIN:?warm and dry.? Assessment: * Assessment: 1.?Pneumonia - J18.9 (Primary)??? Plan: * Treatment: Notes: some improvement finish doxy, add oral prednisone fu as needed?? * Follow Up: p rn * * Electronically signed by Neetu Del Toro NP, RADAR SYSTEMS ENGINEER.ELEVATOR SERVICE TECHNICIAN.[id number] on 04/14/2025 at 04:07 PM ESTSign off status: CompletedVisit Status:?CHK (Check Out) true * Provider: Bruce Del Toro ([facility]), ELEVATOR SERVICE TECHNICIAN Date: 06/13/2024 Generated for Printing/Faxing/eTransmitting on:?04/19/2025 09:45 AM EST History and Physical Notes * HPI (History of Present Illness) CategorySub-CategoryDetailNotesCategory NotesGeneral breathing some better oxygen down to 89-90% when up and walking working at [employer] PT gets disability Examination CategorySub-CategoryDetailNotesCategory NotesGeneral ExaminationsGENERAL APPEARANCE:alert and oriented, in no acute distressEYES:conjunctiva normal, sclera non-ictericEARS:NOSE:normal external appearanceTHROAT:CARDIO:regular rate and rhythm, S1, S2 normal, no murmurs, no edemaLUNGS:no wheezes, no rhonchi, little diminished breath sounds throughoutABDOMEN:SKIN:warm and dryBACK: MUSCULOSKELETAL:Gait and station normalLYMPH NODES:
[2025-04-19 09:16] VITALS: BP 96/83; PULSE 75; TEMP 36.5; O2SAT 97; BMI 23.0
[2025-04-19 09:42] LABS: Hematocrit 44.4 % (42.0-54.0); Hemoglobin 15.3 g/dL (14.0-18.0); Immature Granulocytes Abs Auto 0.03 10^3/uL (0.00-0.03); Immature Granulocytes Pct Auto 0.3 % (0.0-0.5); Lymphocytes Absolute Auto 1.5 10^3/uL (1.2-3.8); Mean Corpuscular HGB Conc 34.5 g/dL (29.9-35.2); Mean Corpuscular Hemoglobin 29.2 pg (25.9-34.0); Mean Corpuscular Volume 84.7 fL (80.0-94.0); Platelet Count 275 10^3/uL (150-450); Red Blood Count 5.24 10^6/uL (4.70-6.10); White Blood Count 9.2 10^3/uL (4.0-11.0)
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
--- OUTSIDE RECORDS SUMMARY | 2025-04-19 09:45 | XMS_ITS | Clinical Summary ---
Author Organization [facility] Address [address] [facility] [place] [address] Phone Care Team Providers Care Baker Bread Name Role Phone Unavailable Primary Care Provider Unavailabl e Social History Tobacco UseTypesPacks/DayYears UsedDateSmoking Tobacco: Never AssessedSex and Gender InformationValueDate RecordedSex Assigned at BirthNot on fileLegal Sex Male04/22/2022 8:07 AM ESTGender IdentityNot on fileSexual OrientationNot on file Plan of Treatment Not on file
--- OUTSIDE RECORDS SUMMARY | 2025-04-19 09:45 | XMS_ITS | Clinical Summary ---
Author Organization [facility] Address [address] [place] [address] Care Team Providers Care Plant Wrapper Name Role Phone Jay Avalos MD, Christopher [...] increased secretions and SOB. OSH transfer from [facility] where he presented with recurrent fever and SOB. Recent admission 11/13-11/16 for aspiration pneumonia, growing jacome-sensitive pseudomonas, discharged on oral Cipro and inhaled Tobramycin. Per his room mate Haja [phone] the patient never filledhis prescriptions. MICU Summary: 11/30: Admitted to MICU 12/01: Holding transfer to [facility] with borderline respiratory function. Remains on 3 L NC, continuing tocough. Asking us not to update parents on admission, spokesperson is Haja [phone], room mate. No HCPOA. 12/02: Now on [...] Paperwork needs to be completed. ProblemNoted DateDiagnosed TdgsCzyccwhicclt87/04/2025Shortness of breath 12/14/2024bnormal CT of the chest12/14/2024Ground glass opacity present on imaging of lung12/14/2024LRTI (lower respiratory tract infection)12/14/2024 Tobacco abuse12/14/2024Tobacco abuse fiprbtfbma01/20/2025History of illicit drug use12/14/2024Marijuana abuse12/14/2024MRSA (methicillin resistant staph aureus) culture futlxsrp13/20/2025History of repair of TEF12/14/2024ute asthma kquutfokuycu71/20/2025Acute respiratory failure with eycchsg3812/13/2024 DISPOSITION AND FOLLOW-UP12/01/2016 Overview (12/02/2016): - Stable [...] in there. - Discussed with MICU staff. Zxbpjpkbn16/19/8880Wkqiem10/22/2017Aperistalsis of iftrmxuoi09/08/2017 Overview (12/02/2016): Congenital TEF s/p repair day [...] Dr. Brennan or Dr. Colbert - [facility] 30 degrees. - Advance diet. Aspiration desfihcib77/03/2017 Overview (09/30/2016): S/t chronic diminished esophageal motility [...] treatment Vanc/ zosyn to be started Reflux dxgfqowqems82/03/2017 Overview (06/30/2016): Hafsa Bronchiectasis with (acute) tukxahudunle07/03/2017 Resolved Problems ProblemNoted DateDiagnosed DateResolved DateDiarrhea of presumed infectious datqzb56Aspiration pneumonia of both lungs Overview (12/01/2016): Severe [...] his room mate Haja. Abdominal painSevere persistent gbsruh22 Overview (09/30/2016): Albuterol q4h wa + q4h prn RT c/s Vest therapy Added symbicort again Tracheoesophageal fistula, wjrmkoipbs71 Overview (07/05/2016): No current TEF per barium swallow H/o clayton fundoplication x2, most recent 15 yrs ago. 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 He has been hospitalized with aspiration 7 times in the past 5 months. He was transferred to [facility] 07/04. GI workup included barium swallow, emptying studies, EGD. Manometry is scheduled outpatient per GI notes. Alcohol abuse, zrpbnnqjhds50Alcohol-induced acute pancreatitis Immunizations ImmunizationAdministration DatesNext Dueinfluenza (IIV3) vaccine, age 6 mo - 64 yr, trivalent (AFLURIA, FLULAVAL, FLUVIRIN, FLUZONE)03/24/2016pneumococcal conjugate (PCV13) vaccine, 13 valent (PREVNAR 13)03/02/2016pneumococcal polysaccharide (PPV23) vaccine, 23 valent (PNEUMOVAX 23)11/10/2016 Family History Medical HistoryRelationCommentsDiabetesMotherRelationStatusCommentsMother Social History Tobacco UseTypesPacks/DayYears UsedDateSmoking Tobacco: FormerCigarettes0.57 03/12/2009 - 03/12/2016 Tobacco Cessation:Counseling Given: Not Answered Alcohol UseStandard Drinks/WeekCommentsNot Zbsjzehhk52 (1 standard drink = 0.6 oz pure alcohol)12 beers per day for 3 yearsAH UtilitiesAnswerDate RecordedIn the past 12 months has the [employer], gas, oil, or water [employer] threatened to shut off services in your [...] RecordedNational Score (1-100), lower number is lower tjvp910912/14/2024State Score (1-10), lower number is lower obsv684812/14/2024Data from: https://www.neighborhoodatlas.medicine.[facility].edu/. Last address used for kwz[address]hinxms[address]12/14/2024Sex and Gender InformationValueDate RecordedSex Assigned at BirthNot on fileLegal SexMale 06/21/2016 3:13 PM ESTGender IdentityNot on fileSexual OrientationNot on file Last Filed Vital Signs Vital SignReadingTime TakenCommentsBlood Bdbjwfpk578/8408 1:26 PM EDT Jqozx564612/31/2024 1:36 PM KBVBvsflvmblhj87.5 ??C (97.7 ??F)12/31/2024 10:36 AM EDTRespiratory Ewwq9115 1:36 PM EDTOxygen Utnczwfalc23%12/31/2024 1:36 PM EDTInhaled Oxygen Concentration--Jpvtns17.8 kg (123 lb)12/31/2024 10:36 AM ASXTieeal473.5 cm (5' 2 )12/31/2024 10:36 AM EDTBody Mass Index22.508 10:36 AM EDT Plan of Treatment Health MaintenanceDue DateLast DoneCommentsAnnual PCP Team Chronic Disease Visit 2008nxiety Myladlfcp90/03/2009Depression Algywtrug54/03/2009Hepatitis C Mebfjxytp48/03/2009HPV Vaccine (1 - 3-dose SCDM series)2017[facility] Annual Wellness Visit05/28/2024ovid-19 Vaccine ( season) 2025Influenza Vaccine (#1)5106/02/2018, 02/12/2017, 03/24/2016, Additional history existsDTaP,Tdap,Td Vaccine (3 - Td or Tdap)03/31/2034 03/31/2024, 04/14/2022Hepatitis B ZyiqdlzNjenbccio01/29/2008, 04/26/2007, 03/26/2007HIV AveslneqcNfakvuygy39/22/2017 Goals GoalPatient Goal TypeAssociated ProblemsRecent ProgressPatient-Stated?Author Blood Pressure < 140/90 Blood Oyqgbwtf297/84(12/31/2024 1:26 PM EDT)Leila Wheat APRN.PENOLOGY PROFESSOR Procedures Procedure NamePriorityDate/TimeAssociated DiagnosisCommentsHIV 1/2 COMBO WITH REFLEX TO OBPEIGKADGSYYHMClytuep91/22/2017 10:49 AM EDT from Last 3 Months or Most Recently Relevant to Health Maintenance Results * HIV 1,2 COMBO (AG/AB) (10/16/2016 10:49 AM EDT)ComponentValueRef RangeTest MethodAnalysis TimePerformed AtPathologist SignatureHIV 12 Combo (Ag/Ab)Non ReactiveNon Aatcnnmz76/22/2017 8:58 PM EDTCCENTERVILLE [facility] Comment: (NOTE) HIV Information: ??[place] Rev. Code 3701.243(E): This information has been [...] Giovana POWELL LABORATORYFinal ResultPerforming OrganizationAddressCity/State/ZIP CodePhone Number [facility] [address] [place] [address] from Last 3 Months or Most Recently Relevant to Health Maintenance Insurance Advance Directives * Full Code (Latest Code Status on File) Date ActivatedDate InactivatedComments12/24/2024 8:55 PM12/29/2024 8:38 PMQuestion AnswerCommentsFull Code Order Discussed With:* Patient * Full Code Date ActivatedDate InactivatedComments12/13/2024 7:13 PM12/14/2024 8:35 PMQuestion AnswerCommentsFull Code Order Discussed With:* Patient Care Teams Team MemberRelationshipSpecialtyStart DateEnd Date Nando Fuller MD [address] [address] PCP - GeneralPulmonary and Critical Care Medicine12/13/24 Jay Avalos MD Gastroenterology07/27/16
--- OUTSIDE RECORDS SUMMARY | 2025-04-19 09:46 | XMS_ITS | Clinical Summary ---
Author Organization [facility] Address [address] [place] [address] Care Team Providers Care Sample Coordinator Name Role Phone Neetu Del Toro CHANDRIKA Primary Care Provider Allergies No known active allergies Medications MedicationSigDispense QuantityRefillsLast FilledStart DateEnd DateStatus albuterol 90 mcg/actuation inhaler INHALE 2 PUFFS INTO THE LUNGS EVERY 6 HOURS NEEDED FOR 90 DAYS07/11/2023 Active traZODone (Desyrel) 50 mg tablet TAKE 1 TABLET BY MOUTH ONCE A DAY AT BEDTIME LMEQZW3909/12/2023ctive escitalopram (Lexapro) 10 mg tablet TAKE 1/2 TAB BY MOUTH DAILY FOR FIRST WEEK,THEN INCREASE TO 1 TABLET BY MOUTH DAILY09/12/2023ctive nebulizer and compressor device 1 Device.09/08/2016Active dexlansoprazole (Dexilant) [address] capsule Take 1 capsule by mouth in the morning.04/03/2023ctive Active Problems ProblemNoted DateDiagnosed DateAcute exacerbation of chronic obstructive pulmonary dsfgjfv0901/21/2024lcohol use pddtztru99/26/1733Iflpxyd63/26/2024 Aspiration into lower respiratory tract01/21/2024cute on chronic respiratory failure with omtpsilsu23/26/2024losed head dphoal0301/21/2024oronavirus nischwkmh86/26/0321Wdmom20/26/2024History of pedpcadqhcvush40/26/2024Influenza A 01/21/2024Moderate persistent asthma, hmfamqvsmoexw79/26/2024arainfluenza 01/21/2024olysubstance cfcpzintho17/26/2024ossible exposure to STD01/21/2024 Tracheo-esophageal msfoych9901/21/2024Viral URI01/21/20246645Mbocvaoibiy75/30/2024 Dyspnea on sycphykw71/30/2024bnormal EKG009/25/20237627Acduaktgxhrz34/30/2024Sleep apnea09/25/2023ronchiectasis without raejzknzshtd46/30/2024Tobacco abuse 09/25/2023lcohol abuse09/25/2023peristalsis of okctdgaco62/08/2017 Overview (01/21/2024): Congenital TEF s/p repair day [...] with Dr. Brennan or Dr. Colbert - [facility] 30 degrees. - Advance diet. Aspiration xjsigjkid88/03/2017 Overview (01/21/2024): S/t chronic diminished esophageal motility [...] GrandmotherDeceased Social History Tobacco UseTypesPacks/DayYears UsedDateSmoking Tobacco: YixsfoLooggfsvui391 06/28/2013 - 06/28/2023Smokeless Tobacco: CurrentChewAlcohol UseStandard Drinks/WeekCommentsNever0 (1 standard drink = 0.6 oz pure alcohol)quit 2 weeks agoUT Safety & EnvironmentAnswerDate RecordedFear of Current or Ex-PartnerNot on file09/19/2023Emotionally AbusedNot on file09/19/2023hysically AbusedNot on file09/19/2023Sexually AbusedNot on file09/19/2023hysically or Sexually Abused Not on file09/19/2023Sex and Gender InformationValueDate RecordedSex Assigned at BirthNot on fileLegal PksSaml5809/19/2023 1:06 PM EDTGender IdentityNot on file Sexual OrientationNot on file Last Filed Vital Signs Vital SignReadingTime TakenCommentsBlood Ukdobccg739/7804 1:42 PM EDT Lkxnr745509/25/2023 1:42 PM EDTTemperature--Respiratory Zthi866809/25/2023 1:42 PM EDTOxygen Oyoqexjupi86%09/25/2023 1:42 PM EDTInhaled Oxygen Concentration-- Nqwcdd67.9 kg (118 lb 12.8 oz)09/25/2023 1:42 PM VQPBoaclw805 cm (5' 3 ) 09/25/2023 1:42 PM EDTBody Mass Index21.04009/25/2023 1:42 PM EDT Plan of Treatment Health MaintenanceDue DateLast DoneCommentsMedicare Annual Wellness (AWV) 1990Depression Waqypuwxv05/03/2003Varicella Vaccines (1 of 2 - 13+ 2-dose series)08/29/2003Hepatitis B Vaccines (1 of 3 - 19+ 3-dose series)2009HPV Vaccines (1 - 3-dose SCDM series)2017COVID-19 Vaccine (1 - 2024- season) 2025Influenza Vaccine (#1)510/Adult Zpntwnq6804/14/2032 2Pneumococcal Vaccine: Pediatrics (0 to 5 Years) [...] MemberRelationshipSpecialtyStart DateEnd Date Neetu Del Toro CNP [address] [place] [address], [place] [address] PCP - GeneralFamily Medicine09/24/23
--- OUTSIDE RECORDS SUMMARY | 2025-04-19 09:46 | XMS_ITS | Patient Health Record ---
Author Organization [facility] Address [address] [place] [address] Care Team Providers Care Pediatric Ophthalmologist Name Role Phone Dr. Robert Lang Primary Care Provider Zee Wolff Unavailable [phone] Daphne Yu Unavailable [phone] Veronique Johnson Unavailable [phone] Reason For Referral No Information Medications Medication SIG (Take, Route, Frequency, Duration) Notes Start Date End Date Status Ibuprofen 800 MG Tablet 1 tablet with fo od or milk as needed Orally Three times a day 10/12/2020ctiveIbuprofen 800 MG Tablet1 tablet with food or milk as needed Orally Three times a day09/29/2020ctive Encounters Encounter Location Date Provider Diagnosis [facility] [address] [place] [address] 02/23/2025 Robert Lang [facility] [place] [id number] Zee WolffChronic gingivitis, plaque induced K05.10[facility] [address] [place] [address]Esther YiEncounter for dental examination and cleaning with abnormal findings Z01.21 ; Other dental procedure status Z98.818 ; Dental caries on pit and fissure surface penetrating into dentin K02.52 ; Partialloss of teeth, unspecified cause, class I K08.401 and Acute gingivitis, plaque induced K05.00 Assessments Encounter Date Diagnosis (ICD Code) Assessment Notes Treatment Notes Treatment Clinical Notes Section Notes 02/20/2025 Chronic gingivitis, plaque induc ed (ICD-10 - K05.10) 02/19/2025Encounter for dental examination and cleaning with abnormal findings (ICD-10 - Z01.21)02/19/2025Other dental procedure status (ICD-10 - Z98.818) 02/19/2025Dental caries on pit and fissure surface penetrating into dentin (ICD- 10 - K02.52)02/19/2025Partial loss of teeth, unspecified cause, class I (ICD-10 - K08.401)02/19/2025ute gingivitis, plaque induced (ICD-10 - K05.00) Plan Of Treatment Next Appt Details Provider Name:Veronique Elizabeth, 09/2024 11:00:00 AM, [address], [place], [address], Provider Name:Veronique Johnosn, 04/2025 11:15:00 AM, [address], [place], [address], Provider Name:Zee Wolff , 10/02/2025 02:00:00 PM, [address], [place], [address], Insurance Providers Payer Name Payer Address Payer Phone Subscriber Number Group Number Insured Name Patient Relationship to Insured Coverage Start Date Coverage End Date [facility] [address] [place] [address] [id number] Elinor GALVEZ - patient is the [id number] 2022MEDICAID SEC [facility] [address] [place] [id number], TROYSelf - patient is the [id number] 2022ETNA MEDICAREPO [address] [address] [place] [address] [id number], TROYSelf - patient is the [id number] 2020 [place] [address] [place] [id number] Elinor GALVEZ - patient is the [id number] 2020
--- OUTSIDE RECORDS SUMMARY | 2025-04-19 09:46 | XMS_ITS | Clinical Summary ---
Author Organization [facility] Address [address] [place] [address] Care Team Providers Care Project Specialist Name Role Phone Unavailable Primary Care Provider Unavailabl e Social History Tobacco UseTypesPacks/DayYears UsedDateSmoking Tobacco: Never AssessedSex and Gender InformationValueDate RecordedSex Assigned at BirthNot on fileLegal Sex Male08/09/2022 6:58 PM EDTGender IdentityNot on fileSexual OrientationNot on file Plan of Treatment Not on file Insurance * Guarantor: Luis Solomoncoronen TypeRelation to PatientDate of BirthPhone Billing AddressPersonal/MzfiryRqba61/03/1991 [address] [place] [address]
--- OUTSIDE RECORDS SUMMARY | 2025-04-19 09:47 | XMS_ITS | Patient Health Record ---
Author Organization [facility] in [place] Address [address] [place] [address] Care Team Providers Care Dedenter Name Role Phone Neetu Barboza Primary Care Provider James Elkins [phone] Allergies Allergen (clinical drug ingredient) Drug/Non Drug Allergy documented on EMR Reaction Allergy Type Onset Date Status naproxen Naproxen unknown Drug Allergy ActivePenicillinUnknownDrug AllergyActive Results Component Value Reference Range Notes CBC AUTO DIFF Reviewed date:05/08/2024 09:48:13 AM Interpretation: Performing Lab: Notes/Report: [facility] , White Blood Count 16.3 4.0-11.0 10 3/uL Red Blood Count5.174.70-6.10 10 6/xNEzifirwzsj31.514.0-18.0 g/fKJkrqmicrxx98.5 42.0-54.0 %Mean Corpuscular Crrkex44.980.0-94.0 fLMean Corpuscular Hemoglobin 30.025.9-34.0 pgMean Corpuscular HGB Conc33.329.9-35.2 g/dLRed Cell Distribution Width12.511.0-15.0 %Platelet Jyair062909-932 10 3/uLMean Platelet Eysarb06.69.5- 13.5 fLNeutrophils Percent Auto82.243.0-75.0 %Lymphocytes Percent Auto9.220.5- 60.0 %Monocytes Percent Auto7.01.7-12.0 %Eosinophils Percent Auto0.60.9-7.0 % Basophils Percent Auto0.70.2-2.0 %Immature Granulocytes Pct Auto0.30.0-0.5 % Neutrophils Absolute Auto13.41.4-6.5 10 3/uLLymphocytes Absolute Auto1.51.2-3.8 10 3/uLMonocytes Absolute Auto1.10.3-0.8 10 3/uLEosinophils Absolute Auto0.10.0- 0.7 10 3/uLBasophils Absolute Auto0.10.0-0.1 10 3/uLImmature Granulocytes Abs Auto0.050.00-0.03 10 3/uLPerforming Lab:see note - [facility] LB PROF 14(COMP METB) Reviewed date:05/08/2024 09:48:13 AM Interpretation: Performing Lab: Notes/Report: [facility] ,Vsamnc616863-924 mmol/LPotassium3.83.5-5.1 mmol/KVfadqvzu50894-033 mmol/LCarbon Morsvsl76.521.0-32.0 mmol/LAnion Gap16.6Jlpcpvm0294-507 mg/dLBlood Urea Nitrogen 13.07.0-18.0 mg/dLCreatinine1.000.70-1.30 mg/dLEstimated GFR ( Cinthia>60 >=60 mL/min/1.73m 2Estimated GFR (Non- Sabine>60>=60 mL/min/1.73m 2BUN Creatinine Ratio13.9Oinjdqz7.98.5-10.1 mg/dLBilirubin Total0.40.2-1.0 mg/dL Aspartate Amino Mvdhaazkpek3444-40 U/LAlanine Lyviskgdewbslwfv0739-89 U/L Alkaline Guyhmyfecws59485-073 U/LTotal Protein7.36.4-8.2 g/dLAlbumin Level3.9 3.4-5.0 g/dLGlobulin3.4Albumin Globulin Ratio1.1Performing Lab:see note - [facility] LBBlood Culture 1 Reviewed date:05/13/2024 04:18:23 PM Interpretation: Performing Lab: Notes/Report: [facility] ,Blood Culture 1See Below For Report Blood Culture 1 NG5D NO GROWTH AT 5 DAYS. Performing Lab:see noteML - [facility] LBBlood Culture 2 Reviewed date:05/13/2024 04:18:23 PM Interpretation: Performing Lab: Notes/Report: [facility] ,Blood Culture 2See Below For Report Blood Culture 2 NG5D NO GROWTH AT 5 DAYS. Performing Lab:see noteML - [facility] LBTroponin I High Sensitivity Reviewed date:05/08/2024 09:48:13 AM Interpretation: Performing Lab: Notes/Report: [facility] ,Troponin I High Sensitivity<4.04.0-76.1 pg/mL CUT-OFF POINTS HAVE BEEN ESTABLISHED BASED ON THE FOURTH UNIVERSAL DEFINITION OF MYOCARDIAL INFARCTION. THE UPPER REFERENCE LIMIT (URL) OF TROPONIN, DEFINED THE 99TH PERCENTILE OF cTnI DISTRIBUTION IN A REFERENCE POPULATION, HAS BEEN CONFIRMED THE DECISION THRESHOLD FOR [place] DIAGNOSIS. 99TH PERCENTILE = 76.2 PG/ML NOTE: HIGH-SENSITIVITY TROPONIN ASSAY IS NOT INTENDED TO BE USED IN ISOLATION BUT SHOULD BE INTERPRETED IN CONJUNCTION WITH OTHER DIAGNOSTIC AND CLINICAL INFORMATION. Performing Lab:see noteML - [facility] LBECG 12 lead Reviewed date:05/13/2024 08:46:43 AM Interpretation: Performing Lab: Notes/Report: Source Facility: [place] [address] [place] [address] Electrocardiograph Report Signed Patient: LUIS SOLOMON MR#: [id number] : 1990 Acct:[id number] Age/Sex: 33 / M ADM Date: 05/08/24 Loc: MS 213-[address]: Nicola Wyatt D.O. 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 Signed By: 05/13/24 0651 DD/ 0752 TD/TT: Customer Marketing Assistant:XR chest 1V Reviewed date:05/08/2024 09:48:13 AM Interpretation: Performing Lab: Notes/Report: Source Facility: [place] [id number] XRay Report Signed Patient: LUIS SOLOMON MR#: [id number] : 1990 Acct:[id number] Age/Sex: 33 / M ADM Date: 05/08/24 Loc: ER Attending Dr: Ordering Physician: Comfort Costa Date of Service: 05/08/24 Procedure(s): XR chest 1V Accession Number(s): [id number] cc: NEETU BARBOZA ; Comfort Costa [place] [id number] Patient Name: LUIS SOLOMON MRN: [facility]:[id number] date: 1990 Sex: M Assigned Patient Location: ER Current Patient Location: ED.MAIN Accession/Order Number: [id number] Exam Date: 05/08/2024 08:07 Report Date: 05/08/2024 [...] Quiñones M.D. Signed By: 05/08/2457 DD/ TD/TT: Customer Marketing Assistant:LACTATE or LACTIC ACID Reviewed date:05/08/2024 11:23:40 AM Interpretation: Performing Lab: Notes/Report: [facility] ,Lactate/Lactic Acid1.10.4-2.0 mmol/LPerforming Lab:see noteML - [facility] LBWhite Blood Cells Reviewed date:05/12/2024 06:14:45 PM Interpretation: Performing Lab: Notes/Report: [facility] ,White Blood CellsSee Below For Report White Blood Cells White Blood CellsNone seen White Blood Cells Performing Lab:see noteLC - [facility] LBEpithelial Cells Reviewed date:05/12/2024 06:14:45 PM Interpretation: Performing Lab: Notes/Report: [facility] ,Epithelial CellsSee Below For Report Epithelial Cells None seen Performing Lab:see noteLC - [facility] LBResult 1 Reviewed date:05/12/2024 06:14:45 PM Interpretation: Performing Lab: Notes/Report: [facility] ,Result 1See Below For Report Result 1 No organisms seen Performing Lab:see noteLC - [facility] LBResult 2 Reviewed date:05/12/2024 06:14:45 PM Interpretation: Performing Lab: Notes/Report: [facility] ,Result 2See Below For Report Result 2 BEN DAY ARTIST Performing Lab:see noteLC - [facility] LBResult 3 Reviewed date:05/12/2024 06:14:45 PM Interpretation: Performing Lab: Notes/Report: [facility] ,Result 3See Below For Report Result 3 BEN DAY ARTIST Performing Lab:see noteLC - [facility] LBResult 4 Reviewed date:05/12/2024 06:14:45 PM Interpretation: Performing Lab: Notes/Report: [facility] ,Result 4See Below For Report Result 4 BEN DAY ARTIST Performing Lab:see noteLC - [facility] LBGram Stain Evaluation Reviewed date:05/12/2024 06:14:45 PM Interpretation: Performing Lab: Notes/Report: [facility] ,Gram Stain EvaluationSee Below For Report Gram Stain Evaluation This specimen is of good quality and is acceptable for routine Gram Stain Evaluationbacterial culture. Gram Stain Evaluation This specimen is of good quality and is acceptable for routine Performing Lab:see noteLC - [facility] LBLower Respiratory Culture Reviewed date:05/12/2024 06:14:45 PM Interpretation: Performing Lab: Notes/Report: [facility] ,Lower Respiratory CultureSee Below For Report Lower Respiratory Culture WILL FOLLOW Lower Respiratory CultureRoutine respiratory naye Lower Respiratory Culture WILL FOLLOW Lower Respiratory CulturePerformed at: CB - [facility] [place] Lower Respiratory Culture WILL FOLLOW Lower Respiratory [address] [place], [place] [id number] Lower Respiratory Culture WILL FOLLOW Lower Respiratory CultureLab Director: Yonny Pa PhD, Phone: [phone] Lower Respiratory Culture WILL FOLLOW Performing Lab:see note LC - [facility] LB SEE REPORT - Apns Id information not found for 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 Performing Lab:see noteML - [facility] OXLJLU-RwD-5 Ag* Reviewed date:05/09/2024 01:58:21 PM Interpretation: Performing Lab: Notes/Report: [facility] ,SARS-CoV-2 AgNEGATIVENEGATIVE This test has not been [...] is revoked sooner. Performing Lab:see noteML - [facility] LBMAGNESIUM Reviewed date:05/11/2024 07:48:02 PM Interpretation: Performing Lab: Notes/Report: Comment ok to add to AM labs [facility] ,Magnesium1.91.8-2.4 mg/dLPerforming Lab:see note - [facility] LBXR chest 1V Reviewed date:05/11/2024 07:48:02 PM Interpretation: Performing Lab: Notes/Report: Source Facility: [place] [address] [place] [address] XRay Report Signed Patient: LUIS SOLOMON MR#: [id number] : 1990 Acct:[id number] Age/Sex: 33 / M ADM Date: 05/08/24 Loc: MS 213-[address]: Nicola Wyatt D.O. Ordering Physician: Nicola Wyatt D.O. Date of Service: 05/10/24 Procedure(s): XR chest 1V Accession Number(s): [id number] cc: NEETU BARBOZA ; Nicola Wyatt D.O. [address] [place] [address] Patient Name: LUIS SOLOMON MRN: [id number] date: 1990 Sex: M Assigned Patient Location: MS Current Patient Location: MS Accession/Order Number: [id number] Exam Date: 05/10/2024 10:25 Report Date: 05/10/2024 [...] Signed By: 05/10/24 1115 DD/ 1113 TD/TT: Customer Marketing Assistant:PROF SIM Downey ([facility]) Reviewed date:05/11/2024 07:48:02 PM Interpretation: Performing Lab: Notes/Report: [facility] ,Htniga412644-165 mmol/LPotassium3.93.5-5.1 mmol/LEvzwshpl37123-623 mmol/LCarbon Hyagfgz68.821.0-32.0 mmol/LAnion Gap12.4Wfihyrf10178-703 mg/dLBlood Urea Dhcaorti49.07.0-18.0 mg/dLCreatinine0.930.70-1.30 mg/dLEstimated GFR ( Cinthia>60>=60 mL/min/1.73m 2Estimated GFR (Non- Sabine>60>=60 mL/min/1.73m 2BUN Creatinine Ratio17.6Qnvldfc8.28.5-10.1 mg/dLPerforming Lab:see noteML - [facility] LBCBC AUTO DIFF Reviewed date:05/13/2024 08:46:42 AM Interpretation: Performing Lab: Notes/Report: [facility] ,White Blood Count13.04.0-11.0 10 3/uLRed Blood Count5.054.70-6.10 10 6/uL Kouolxkilm10.814.0-18.0 g/fLNompbbrglv61.242.0-54.0 %Mean Corpuscular Zsgsda30.5 80.0-94.0 fLMean Corpuscular Lvribnhnkh23.325.9-34.0 pgMean Corpuscular HGB Conc 32.729.9-35.2 g/dLRed Cell Distribution Width12.711.0-15.0 %Platelet Ldzve285 150-450 10 3/uLMean Platelet Eafjya93.39.5-13.5 fLPerforming Lab:see note - [facility] LBINFLUENZA A AND B AG Reviewed date:05/13/2024 08:46:42 AM Interpretation: Performing Lab: Notes/Report: [facility] ,Influenza Virus A AntigenNegative Negative for Flu [...] detection limit of the test. Performing Lab:see note - [facility] LBPROF CHEM 8 (BAS METB) Reviewed date:05/13/2024 08:46:42 AM Interpretation: Performing Lab: Notes/Report: [facility] ,Ywxidv281125-346 mmol/LPotassium3.43.5-5.1 mmol/IUfbqmewn23558-502 mmol/LCarbon Inoiufb94.621.0-32.0 mmol/LAnion Gap10.1Ftvvqpg0517-971 mg/dLBlood Urea Nitrogen 15.07.0-18.0 mg/dLCreatinine0.930.70-1.30 mg/dLEstimated GFR ( Cinthia>60 >=60 mL/min/1.73m 2Estimated GFR (Non- Sabine>60>=60 mL/min/1.73m 2BUN Creatinine Ratio16.8Ympwdbj0.18.5-10.1 mg/dLPerforming Lab:see note - [facility] LBBlood Culture 1 Reviewed date:05/19/2024 08:28:39 AM Interpretation: Performing Lab: Notes/Report: [facility] ,Blood Culture 1See Below For Report Blood Culture 1 NG5D NO GROWTH AT 5 DAYS. Performing Lab:see note - [facility] LBBlood Culture 2 Reviewed date:05/19/2024 08:28:39 AM Interpretation: Performing Lab: Notes/Report: [facility] ,Blood Culture 2See Below For Report Blood Culture 2 NG5D NO GROWTH AT 5 DAYS. Performing Lab:see noteML - [facility] LBManual Differential Reviewed date:05/13/2024 08:46:42 AM Interpretation: Performing Lab: Notes/Report: [facility] ,Segmented Neutrophils % Ayrxaw51.043.0-75.0Lymphocytes Percent Ewucbk62.020.5- 60.0 %Monocytes Percent Manual9.01.7-12.0 %Eosinophils Percent Manual0.00.9-7.0 %Basophils Percent Manual0.00.2-2.0 %Metamyelocytes %2.0Segmented Neut Absolute Manual9.231.4-6.5 10 3/uLLymphocytes Absolute Manual2.341.20-3.80 10 3/uL Monocytes Absolute Manual1.170.30-0.80 10 3/uLEosinophils Absolute Manual0.00 0.00-0.70 10 3/uLBasophils Abs Manual0.000.00-0.10 10 3/uLMetamyelocytes Absolute Manual0.26Performing Lab:see noteML - [facility] LB SARS-CoV-2 Ag* Reviewed date:05/13/2024 08:46:42 AM Interpretation: Performing Lab: Notes/Report: [facility] ,SARS-CoV-2 AgNEGATIVENEGATIVE This test has not been [...] revoked sooner. Performing Lab:see noteML - [facility] LBECG 12 lead Reviewed date:05/14/2024 10:25:57 AM Interpretation: Performing Lab: Notes/Report: Source Facility: [place] [id number] Electrocardiograph Report Signed Patient: LUIS SOLOMON MR#: [id number] : 1990 Acct:[id number] Age/Sex: 33 / M ADM Date: 05/13/24 Loc: MS 203-[address]: Maryanne Elkins M.D. Ordering Physician: Mark Nieto M.D. 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1990 Requested By: NEETU BARBOZA Order Number: [id number] Reading MD: NITISH ZAMORA Measurements Intervals [place] Rate: 75 P: 30 SC: 122 QRS: 102 QRSD: 88 T: 72 QT: 350 QTc: 379 Interpretive Statements 1100 Sinus rhythm 1470 with occasional supraventricular premature complexes 2420 RSR (QR) in lead V1/V2, consistent with right ventricular conduction delay 7100 Abnormal right axis deviation 9140 abnormal rhythm ECG Compared to ECG 05/08/2024 07:52:54 Right-axis deviation now present Short SC interval no longer present Electronically Signed On 05-13-2024 19:31:11 EST by NITISH ZAMORA Dictated By: Nitish Zamora D.O. Signed By: 05/13/241930 DD/ 0729 TD/TT: Customer Marketing Assistant:DELFINO boone 1V Reviewed date:05/13/2024 08:46:42 AM Interpretation: Performing Lab: Notes/Report: Source Facility: [place] [address] [place] [address] XRay Report Signed Patient: LUIS SOLOMON MR#: [id number] : 1990 Acct:[id number] Age/Sex: 33 / M ADM Date: 05/13/24 Loc: ER Attending Dr: Ordering Physician: Mark Nieto M.D. Date of Service: 05/13/24 Procedure(s): XR chest 1V Accession Number(s): [id number] cc: NEETU BARBOZA ; Mark Nieto M.D. [address] [place] [address] Patient Name: LUIS SOLOMON MRN: [facility]:[id number] date: 1990 Sex: M Assigned Patient Location: ER Current Patient Location: ER Accession/Order Number: [id number] Exam Date: 05/13/2024 07:30 Report Date: 05/13/2024 [...] Signed By: 05/13/24 0758 DD/ 0756 TD/TT: Customer Marketing Assistant:CT angio chest Reviewed date:05/13/2024 12:17:06 PM Interpretation: Performing Lab: Notes/Report: Source Facility: [facility]-[address] [place] [address] [place] [address] CT Scan Report Signed Patient: LUIS SOLOMON MR#: [id number] : 1990 Acct:[id number] Age/Sex: 33 / M ADM Date: 05/13/24 Loc: [place] 203-[address]: Maryanne Elkins M.D. Ordering Physician: Maryanne Elkins M.D. Date of Service: 05/13/24 Procedure(s): CT angio chest Accession Number(s): [id number] cc: NEETU BARBOZA [place] [id number] Patient Name: LUIS SOLOMON MRN: [id number] date: 1990 Sex: M Assigned Patient Location: ER Current Patient Location: [place] Accession/Order Number: [id number] Exam Date: 05/13/2024 09:30 Report Date: 05/13/2024 [...] Signed By: 05/13/24 1009 DD/ 1007 TD/TT: Customer Marketing Assistant:CBC AUTO DIFF Reviewed date:05/14/2024 03:54:09 PM Interpretation: Performing Lab: Notes/Report: [facility] ,White Blood Count11.54.0-11.0 10 3/uLRed Blood Count4.854.70-6.10 10 6/uL Awdkpnrqec48.314.0-18.0 g/hXZnlnggddkp64.442.0-54.0 %Mean Corpuscular Ttlleu25.4 80.0-94.0 fLMean Corpuscular Qhhfbklryb94.525.9-34.0 pgMean Corpuscular HGB Conc 33.729.9-35.2 g/dLRed Cell Distribution Width12.111.0-15.0 %Platelet Boomg390 150-450 10 3/uLMean Platelet Quzsbh66.39.5-13.5 fLNeutrophils Percent Auto87.6 43.0-75.0 %Lymphocytes Percent Auto6.120.5-60.0 %Monocytes Percent Auto3.01.7- 12.0 %Eosinophils Percent Auto0.00.9-7.0 %Basophils Percent Auto0.20.2-2.0 % Immature Granulocytes Pct Auto3.10.0-0.5 %Neutrophils Absolute Auto10.11.4-6.5 10 3/uLLymphocytes Absolute Auto0.71.2-3.8 10 3/uLMonocytes Absolute Auto0.30.3- 0.8 10 3/uLEosinophils Absolute Auto0.00.0-0.7 10 3/uLBasophils Absolute Auto0.0 0.0-0.1 10 3/uLImmature Granulocytes Abs Auto0.350.00-0.03 10 3/uLPerforming Lab:see noteML - [facility] LBPROF CHEM 8 (BAS METB) Reviewed date:05/14/2024 03:54:09 PM Interpretation: Performing Lab: Notes/Report: [facility] ,Ipwbcs537732-949 mmol/LPotassium3.53.5-5.1 mmol/PMbdcokmk48529-181 mmol/LCarbon Mmxutgi15.921.0-32.0 mmol/LAnion Gap14.2Vpzsnnq29361-186 mg/dLBlood Urea Pzsteitf70.07.0-18.0 mg/dLCreatinine1.010.70-1.30 mg/dLEstimated GFR ( Cinthia>60>=60 mL/min/1.73m 2Estimated GFR (Non- Sabine>60>=60 mL/min/1.73m 2BUN Creatinine Ratio17.7Ltmaqps8.48.5-10.1 mg/dLPerforming Lab:see note - [facility] LBTHEOPHYLLINE Reviewed date:05/14/2024 03:54:09 PM Interpretation: Performing Lab: Notes/Report: [facility] ,Theophylline6.210.0-20.0 ug/mL --- 05/14/24622 --- Hector previously reported as: 6.2 L ug/mL Performing Lab:see note - [facility] LBBNP Reviewed date:05/26/2024 08:18:37 AM Interpretation: Performing Lab: Notes/Report: [facility] ,NT Pro B Type Natriuretic Pept14.0<=450.0 pg/mLPerforming Lab:see formerly [facility] - [facility] LBPROF 14(COMP METB) Reviewed date:05/26/2024 08:18:37 AM Interpretation: Performing Lab: Notes/Report: [facility] ,Pxlkpj740489-088 mmol/LPotassium4.13.5-5.1 mmol/XIauqhjjv92367-461 mmol/LCarbon Tqtqsvi52.821.0-32.0 mmol/LAnion Gap9.6Ivmtpfj81826-678 mg/dLBlood Urea Nitrogen 16.07.0-18.0 mg/dLCreatinine1.000.70-1.30 mg/dLEstimated GFR ( Cinthia>60 >=60 mL/min/1.73m 2Estimated GFR (Non- Sabine>60>=60 mL/min/1.73m 2BUN Creatinine Ratio16.6Upvcyce5.18.5-10.1 mg/dLBilirubin Total0.50.2-1.0 mg/dL Aspartate Amino Ywgbtdpfhon2138-38 U/LAlanine Nanafgarogffihzf4061-15 U/L Alkaline Xxyqoorxklb5697-163 U/LTotal Protein6.66.4-8.2 g/dLAlbumin Level3.33.4- 5.0 g/dLGlobulin3.3Albumin Globulin Ratio1.0Performing Lab:see noteML - [facility] LBTroponin I High Sensitivity Reviewed date:05/26/2024 08:18:37 AM Interpretation: Performing Lab: Notes/Report: [facility] ,Troponin I High Sensitivity4.64.0-76.1 pg/mL CUT-OFF POINTS HAVE BEEN ESTABLISHED BASED ON THE FOURTH UNIVERSAL DEFINITION OF MYOCARDIAL INFARCTION. THE UPPER REFERENCE LIMIT (URL) OF TROPONIN, DEFINED THE 99TH PERCENTILE OF cTnI DISTRIBUTION IN A REFERENCE POPULATION, HAS BEEN CONFIRMED THE DECISION THRESHOLD FOR [place] DIAGNOSIS. 99TH PERCENTILE = 76.2 PG/ML NOTE: HIGH-SENSITIVITY TROPONIN ASSAY IS NOT INTENDED TO BE USED IN ISOLATION BUT SHOULD BE INTERPRETED IN CONJUNCTION WITH OTHER DIAGNOSTIC AND CLINICAL INFORMATION. Performing Lab:see noteML - [facility] LBXR chest 1V Reviewed date:05/26/2024 08:18:37 AM Interpretation: Performing Lab: Notes/Report: Source Facility: [place] [id number] XRay Report Signed Patient: LUIS SOLOMON MR#: [id number] : 1990 Acct:[id number] Age/Sex: 33 / M ADM Date: 05/22/24 Loc: ER Attending Dr: Ordering Physician: Kristina Martinez Date of Service: 05/22/24 Procedure(s): XR chest 1V Accession Number(s): [id number] cc: NEETU BARBOZA ; Kristina Martinez [place] [address] Patient Name: LUIS SOLOMON MRN: [id number] date: 1990 Sex: M Assigned Patient Location: ER Current Patient Location: ER Accession/Order Number: [id number] Exam Date: 05/22/2024 19:12 Report Date: 05/22/2024 [...] M.D. Signed By: 05/22/242048 DD/ 45 TD/TT: Customer Marketing Assistant:ECG 12 lead Reviewed date:07/07/2024 08:16:57 AM Interpretation: Performing Lab: Notes/Report: Source Facility: [place] [address] [place] [address] Electrocardiograph Report Signed Patient: LUIS SOLOMON MR#: [id number] : 1990 Acct:[id number] Age/Sex: 33 / M ADM Date: 07/03/24 Loc: ER Attending Dr: Ordering Physician: Mark Nieto M.D. 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 Signed By: 07/03/242011 DD/ 3 TD/TT: Customer Marketing Assistant:INFLUENZA A AND B AG Reviewed date:08/04/2024 10:09:14 AM Interpretation: Performing Lab: Notes/Report: [facility] ,Influenza Virus A AntigenNegative Negative for Flu [...] the test. Performing Lab:see noteML - [facility] VJBSVB-ZkQ-8 Ag* Reviewed date:08/04/2024 10:09:14 AM Interpretation: Performing Lab: Notes/Report: [facility] ,SARS-CoV-2 AgNEGATIVENEGATIVE This test has not been [...] revoked sooner. Performing Lab:see noteML - [facility] LBCBC AUTO DIFF Reviewed date:08/05/2024 09:15:27 AM Interpretation: Performing Lab: Notes/Report: [facility] ,White Blood Count10.74.0-11.0 10 3/uLRed Blood Count5.234.70-6.10 10 6/uL Njqqrcjmjt89.214.0-18.0 g/tMDcbtzbvdyt64.842.0-54.0 %Mean Corpuscular Wnycnk68.7 80.0-94.0 fLMean Corpuscular Dobmzfwsrr32.125.9-34.0 pgMean Corpuscular HGB Conc 33.929.9-35.2 g/dLRed Cell Distribution Width12.911.0-15.0 %Platelet Bpulq261 150-450 10 3/uLMean Platelet Slpcyp26.89.5-13.5 fLNeutrophils Percent Auto76.4 43.0-75.0 %Lymphocytes Percent Auto11.620.5-60.0 %Monocytes Percent Auto10.81.7- 12.0 %Eosinophils Percent Auto0.10.9-7.0 %Basophils Percent Auto0.90.2-2.0 % Immature Granulocytes Pct Auto0.20.0-0.5 %Neutrophils Absolute Auto8.21.4-6.5 10 3/uLLymphocytes Absolute Auto1.31.2-3.8 10 3/uLMonocytes Absolute Auto1.20.3-0.8 10 3/uLEosinophils Absolute Auto0.00.0-0.7 10 3/uLBasophils Absolute Auto0.10.0- 0.1 10 3/uLImmature Granulocytes Abs Auto0.020.00-0.03 10 3/uLPerforming Lab:see noteML - [facility] LBLACTATE or LACTIC ACID Reviewed date:08/05/2024 09:15:27 AM Interpretation: Performing Lab: Notes/Report: [facility] ,Lactate/Lactic Acid0.90.4-2.0 mmol/LPerforming Lab:see noteML - [facility] LBPROF CHEM 8 (BAS METB) Reviewed date:08/05/2024 09:15:27 AM Interpretation: Performing Lab: Notes/Report: [facility] ,Wwsylg795251-132 mmol/LPotassium4.43.5-5.1 mmol/JTlqgfvbn28551-372 mmol/LCarbon Qudgwpd04.521.0-32.0 mmol/LAnion Gap12.0Xpbimex47828-694 mg/dLBlood Urea Nitrogen9.07.0-18.0 mg/dLCreatinine1.090.70-1.30 mg/dLEstimated GFR ( Cinthia>60>=60 mL/min/1.73m 2Estimated GFR (Non- Sabine>60>=60 mL/min/1.73m 2BUN Creatinine Ratio8.0Anavnqh0.98.5-10.1 mg/dLPerforming Lab:see noteML - [facility] LBTroponin I High Sensitivity Reviewed date:08/05/2024 09:15:27 AM Interpretation: Performing Lab: Notes/Report: [facility] ,Troponin I High Sensitivity4.34.0-76.1 pg/mL CUT-OFF POINTS HAVE BEEN ESTABLISHED BASED ON THE FOURTH UNIVERSAL DEFINITION OF MYOCARDIAL INFARCTION. THE UPPER REFERENCE LIMIT (URL) OF TROPONIN, DEFINED THE 99TH PERCENTILE OF cTnI DISTRIBUTION IN A REFERENCE POPULATION, HAS BEEN CONFIRMED THE DECISION THRESHOLD FOR [place] DIAGNOSIS. 99TH PERCENTILE = 76.2 PG/ML NOTE: HIGH-SENSITIVITY TROPONIN ASSAY IS NOT INTENDED TO BE USED IN ISOLATION BUT SHOULD BE INTERPRETED IN CONJUNCTION WITH OTHER DIAGNOSTIC AND CLINICAL INFORMATION. Performing Lab:see noteML - [facility] LBCBC AUTO DIFF Reviewed date:08/05/2024 09:15:27 AM Interpretation: Performing Lab: Notes/Report: [facility] ,White Blood Count8.64.0-11.0 10 3/uLRed Blood Count4.944.70-6.10 10 6/uL Iounfeoupu06.514.0-18.0 g/kMTrwertrphu45.442.0-54.0 %Mean Corpuscular Qnxxgl50.8 80.0-94.0 fLMean Corpuscular Zbwmqbodbt68.425.9-34.0 pgMean Corpuscular HGB Conc 34.229.9-35.2 g/dLRed Cell Distribution Width13.011.0-15.0 %Platelet Vhbgm083 150-450 10 3/uLMean Platelet Jjvjfi29.49.5-13.5 fLNeutrophils Percent Auto93.7 43.0-75.0 %Lymphocytes Percent Auto4.120.5-60.0 %Monocytes Percent Auto1.01.7- 12.0 %Eosinophils Percent Auto0.50.9-7.0 %Basophils Percent Auto0.50.2-2.0 % Immature Granulocytes Pct Auto0.20.0-0.5 %Neutrophils Absolute Auto8.01.4-6.5 10 3/uLLymphocytes Absolute Auto0.41.2-3.8 10 3/uLMonocytes Absolute Auto0.10.3-0.8 10 3/uLEosinophils Absolute Auto0.00.0-0.7 10 3/uLBasophils Absolute Auto0.00.0- 0.1 10 3/uLImmature Granulocytes Abs Auto0.020.00-0.03 10 3/uLPerforming Lab:see noteML - [facility] LBINFLUENZA A AND B AG Reviewed date:08/05/2024 09:15:27 AM Interpretation: Performing Lab: Notes/Report: [facility] ,Influenza Virus A AntigenNegative Negative for Flu [...] the test. Performing Lab:see noteML - [facility] LBMAGNESIUM Reviewed date:08/05/2024 09:15:27 AM Interpretation: Performing Lab: Notes/Report: [facility] ,Magnesium1.91.8-2.4 mg/dLPerforming Lab:see noteML - [facility] LB PROF 14(COMP METB) Reviewed date:08/05/2024 09:15:27 AM Interpretation: Performing Lab: Notes/Report: [facility] ,Kbpshx533030-717 mmol/LPotassium4.33.5-5.1 mmol/HNdbrjkmq42319-766 mmol/LCarbon Xmukbtl55.121.0-32.0 mmol/LAnion Gap15.0Gxewxxq11451-295 mg/dLBlood Urea Nitrogen8.07.0-18.0 mg/dLCreatinine1.210.70-1.30 mg/dLEstimated GFR ( Cinthia>60>=60 mL/min/1.73m 2Estimated GFR (Non- Sabine>60>=60 mL/min/1.73m 2BUN Creatinine Ratio6.9Sxdrwif8.88.5-10.1 mg/dLBilirubin Total0.40.2-1.0 mg/dL Aspartate Amino Fvosuoxncse1000-26 U/LAlanine Vfjnkdtlydxicteh764-45 U/LAlkaline Xorhxpssxol18804-889 U/LTotal Protein6.86.4-8.2 g/dLAlbumin Level3.43.4-5.0 g/dL Globulin3.4Albumin Globulin Ratio1.0Performing Lab:see noteML - [facility] LBBlood Culture 1 Reviewed date:08/10/2024 03:10:25 PM Interpretation: Performing Lab: Notes/Report: [facility] ,Blood Culture 1See Below For Report Blood Culture 1 NG5D NO GROWTH AT 5 DAYS.^NO GROWTH AT 5 DAYS. Performing Lab:see note - [facility] LBBlood Culture 2 Reviewed date:08/10/2024 03:10:25 PM Interpretation: Performing Lab: Notes/Report: [facility] ,Blood Culture 2See Below For Report Blood Culture 2 NG5D NO GROWTH AT 5 DAYS.^NO GROWTH AT 5 DAYS. Performing Lab:see noteML - [facility] UZKSKQ-MtZ-3 Ag* Reviewed date:08/05/2024 09:15:27 AM Interpretation: Performing Lab: Notes/Report: [facility] ,SARS-CoV-2 AgNEGATIVENEGATIVE This test has not been [...] revoked sooner. Performing Lab:see noteML - [facility] LBCBC AUTO DIFF Reviewed date:08/06/2024 10:07:04 AM Interpretation: Performing Lab: Notes/Report: [facility] ,White Blood Count10.94.0-11.0 10 3/uLRed Blood Count4.694.70-6.10 10 6/uL Hbsrdvbhzj47.614.0-18.0 g/oPWkbqwvyamz49.542.0-54.0 %Mean Corpuscular Vtrgvd66.4 80.0-94.0 fLMean Corpuscular Axlalnxdrx80.025.9-34.0 pgMean Corpuscular HGB Conc 33.629.9-35.2 g/dLRed Cell Distribution Width13.011.0-15.0 %Platelet Plmot733 150-450 10 3/uLMean Platelet Pcpoyw43.89.5-13.5 fLNeutrophils Percent Auto91.9 43.0-75.0 %Lymphocytes Percent Auto4.620.5-60.0 %Monocytes Percent Auto2.91.7- 12.0 %Eosinophils Percent Auto0.10.9-7.0 %Basophils Percent Auto0.10.2-2.0 % Immature Granulocytes Pct Auto0.40.0-0.5 %Neutrophils Absolute Auto10.01.4-6.5 10 3/uLLymphocytes Absolute Auto0.51.2-3.8 10 3/uLMonocytes Absolute Auto0.30.3- 0.8 10 3/uLEosinophils Absolute Auto0.00.0-0.7 10 3/uLBasophils Absolute Auto0.0 0.0-0.1 10 3/uLImmature Granulocytes Abs Auto0.040.00-0.03 10 3/uLPerforming Lab:see noteML - [facility] LBCBC AUTO DIFF Reviewed date:08/10/2024 03:10:26 PM Interpretation: Performing Lab: Notes/Report: [facility] ,White Blood Count15.24.0-11.0 10 3/uLRed Blood Count4.774.70-6.10 10 6/uL Kadsfjomub43.614.0-18.0 g/vGOdyyxnrcfo90.642.0-54.0 %Mean Corpuscular Xwvghv51.2 80.0-94.0 fLMean Corpuscular Rixibunysw23.525.9-34.0 pgMean Corpuscular HGB Conc 32.729.9-35.2 g/dLRed Cell Distribution Width13.011.0-15.0 %Platelet Kqnhh767 150-450 10 3/uLMean Platelet Qpkjzu10.39.5-13.5 fLNeutrophils Percent Auto88.7 43.0-75.0 %Lymphocytes Percent Auto5.520.5-60.0 %Monocytes Percent Auto4.71.7- 12.0 %Eosinophils Percent Auto0.30.9-7.0 %Basophils Percent Auto0.10.2-2.0 % Immature Granulocytes Pct Auto0.70.0-0.5 %Neutrophils Absolute Auto13.51.4-6.5 10 3/uLLymphocytes Absolute Auto0.81.2-3.8 10 3/uLMonocytes Absolute Auto0.70.3- 0.8 10 3/uLEosinophils Absolute Auto0.00.0-0.7 10 3/uLBasophils Absolute Auto0.0 0.0-0.1 10 3/uLImmature Granulocytes Abs Auto0.110.00-0.03 10 3/uLPerforming Lab:see noteML - [facility] LBDRUG SCREEN RAPID (URINE) Reviewed date:08/10/2024 03:10:26 PM Interpretation: Performing Lab: Notes/Report: [facility] ,Cannabinoid Screen UrinePOSITIVENEGATIVEPhencyclidine Screen UrineNEGATIVE NEGATIVECocaine Screen [...] TCA (Trycyclic Antidepressants): 300 ng/mL Performing Lab:see formerly [facility] LBLACTATE or LACTIC ACID Reviewed date:08/10/2024 03:10:26 PM Interpretation: Performing Lab: Notes/Report: [facility] ,Lactate/Lactic Acid1.90.4-2.0 mmol/LPerforming Lab:[facility] LBMAGNESIUM Reviewed date:08/10/2024 03:10:26 PM Interpretation: Performing Lab: Notes/Report: Comment ok to add to ER labs [facility] ,Magnesium2.81.8-2.4 mg/dLPerforming Lab:see [facility] LB CBC AUTO DIFF Reviewed date:08/10/2024 03:10:25 PM Interpretation: Performing Lab: Notes/Report: [facility] ,White Blood Count13.34.0-11.0 10 3/uLRed Blood Count4.514.70-6.10 10 6/uL Rpqugspupy99.114.0-18.0 g/gSNesqpelxnh10.342.0-54.0 %Mean Corpuscular Hpfxet01.1 80.0-94.0 fLMean Corpuscular Fqomfsxxzo08.025.9-34.0 pgMean Corpuscular HGB Conc 33.329.9-35.2 g/dLRed Cell Distribution Width13.011.0-15.0 %Platelet Slkoy348 150-450 10 3/uLMean Platelet Iiemjx47.59.5-13.5 fLNeutrophils Percent Auto89.5 43.0-75.0 %Lymphocytes Percent Auto4.820.5-60.0 %Monocytes Percent Auto3.21.7- 12.0 %Eosinophils Percent Auto1.10.9-7.0 %Basophils Percent Auto0.20.2-2.0 % Immature Granulocytes Pct Auto1.20.0-0.5 %Neutrophils Absolute Auto11.91.4-6.5 10 3/uLLymphocytes Absolute Auto0.61.2-3.8 10 3/uLMonocytes Absolute Auto0.40.3- 0.8 10 3/uLEosinophils Absolute Auto0.10.0-0.7 10 3/uLBasophils Absolute Auto0.0 0.0-0.1 10 3/uLImmature Granulocytes Abs Auto0.160.00-0.03 10 3/uLPerforming Lab:see noteML - [facility] LBMAGNESIUM Reviewed date:08/10/2024 03:10:25 PM Interpretation: Performing Lab: Notes/Report: [facility] ,Magnesium2.31.8-2.4 mg/dLPerforming Lab:see noteML - [facility] LB PROF 14(COMP METB) Reviewed date:08/10/2024 03:10:25 PM Interpretation: Performing Lab: Notes/Report: [facility] ,Lgemzb275395-360 mmol/LPotassium4.23.5-5.1 mmol/UXiisraix88665-286 mmol/LCarbon Nfpdbka23.021.0-32.0 mmol/LAnion Gap9.5Bedojqz04183-870 mg/dLBlood Urea Nitrogen 19.07.0-18.0 mg/dLCreatinine0.810.70-1.30 mg/dLEstimated GFR ( Cinthia>60 >=60 mL/min/1.73m 2Estimated GFR (Non- Sabine>60>=60 mL/min/1.73m 2BUN Creatinine Ratio23.6Bvkrkkg6.08.5-10.1 mg/dLBilirubin Total0.40.2-1.0 mg/dL Aspartate Amino Ngatctbjkxk249-84 U/LAlanine Jkogdffjfqklixht0723-99 U/LAlkaline Aenzmhmxhgc5367-893 U/LTotal Protein5.46.4-8.2 g/dLAlbumin Level2.53.4-5.0 g/dL Globulin2.9Albumin Globulin Ratio0.9Performing Lab:see noteML - [facility] LBVANCOMYCIN TROUGH Reviewed date:08/10/2024 03:10:25 PM Interpretation: Performing Lab: Notes/Report: [facility] ,Vancomycin Lldvxb19.05.0-20.0 ug/mLPerforming Lab:see noteML - [facility] LBCBC AUTO DIFF Reviewed date:08/11/2024 12:58:08 PM Interpretation: Performing Lab: Notes/Report: [facility] ,White Blood Count15.54.0-11.0 10 3/uLRed Blood Count4.514.70-6.10 10 6/uL Szroztxixv05.914.0-18.0 g/qDWqkijyyjec85.942.0-54.0 %Mean Corpuscular Ogfdpi25.3 80.0-94.0 fLMean Corpuscular Rcdxslfuwt74.625.9-34.0 pgMean Corpuscular HGB Conc 33.229.9-35.2 g/dLRed Cell Distribution Width13.011.0-15.0 %Platelet Szjrl410 150-450 10 3/uLMean Platelet Hhfjjt26.59.5-13.5 fLNeutrophils Percent Auto89.9 43.0-75.0 %Lymphocytes Percent Auto3.920.5-60.0 %Monocytes Percent Auto3.61.7- 12.0 %Eosinophils Percent Auto0.30.9-7.0 %Basophils Percent Auto0.20.2-2.0 % Immature Granulocytes Pct Auto2.10.0-0.5 %Neutrophils Absolute Auto13.91.4-6.5 10 3/uLLymphocytes Absolute Auto0.61.2-3.8 10 3/uLMonocytes Absolute Auto0.60.3- 0.8 10 3/uLEosinophils Absolute Auto0.00.0-0.7 10 3/uLBasophils Absolute Auto0.0 0.0-0.1 10 3/uLImmature Granulocytes Abs Auto0.320.00-0.03 10 3/uLPerforming Lab:see noteML - [facility] LBMAGNESIUM Reviewed date:08/11/2024 12:58:08 PM Interpretation: Performing Lab: Notes/Report: [facility] ,Magnesium2.21.8-2.4 mg/dLPerforming Lab:see noteML - [facility] LB PROF 14(COMP METB) Reviewed date:08/11/2024 12:58:08 PM Interpretation: Performing Lab: Notes/Report: [facility] ,Ginccg067147-850 mmol/LPotassium4.23.5-5.1 mmol/FPlvkcfav39547-259 mmol/LCarbon Xwlmdcg06.221.0-32.0 mmol/LAnion Gap9.2Tmzdkkt42725-470 mg/dLBlood Urea Nitrogen 22.07.0-18.0 mg/dLCreatinine0.750.70-1.30 mg/dLEstimated GFR ( Cinthia>60 >=60 mL/min/1.73m 2Estimated GFR (Non- Sabine>60>=60 mL/min/1.73m 2BUN Creatinine Ratio29.5Vsjcclo6.18.5-10.1 mg/dLBilirubin Total0.30.2-1.0 mg/dL Aspartate Amino Hssgqwryuwb584-33 U/LAlanine Safwppdczbjkodyr1946-47 U/LAlkaline Ouwtsiqvadd3283-010 U/LTotal Protein5.26.4-8.2 g/dLAlbumin Level2.53.4-5.0 g/dL Globulin2.7Albumin Globulin Ratio0.9Performing Lab:see noteML - [facility] LBINFLUENZA A AND B AG Reviewed date:08/11/2024 08:09:05 PM Interpretation: Performing Lab: Notes/Report: [facility] ,Influenza Virus A AntigenNegative Negative for Flu [...] the test. Performing Lab:see noteML - [facility] FGCEOX-QgY-4 Ag* Reviewed date:08/11/2024 08:09:05 PM Interpretation: Performing Lab: Notes/Report: [facility] ,SARS-CoV-2 AgNEGATIVENEGATIVE This test has not been [...] revoked sooner. Performing Lab:see noteML - [facility] LBCBC AUTO DIFF Reviewed date:08/18/2024 01:51:36 PM Interpretation: Performing Lab: Notes/Report: [facility] ,White Blood Count16.04.0-11.0 10 3/uLRed Blood Count4.734.70-6.10 10 6/uL Ddivzposrt22.614.0-18.0 g/eUQjkwkfwqqr95.342.0-54.0 %Mean Corpuscular Fknjqh14.2 80.0-94.0 fLMean Corpuscular Yefoqcnmss86.825.9-34.0 pgMean Corpuscular HGB Conc 33.729.9-35.2 g/dLRed Cell Distribution Width12.811.0-15.0 %Platelet Ieyhe133 150-450 10 3/uLMean Platelet Laplum83.29.5-13.5 fLNeutrophils Percent Auto88.3 43.0-75.0 %Lymphocytes Percent Auto3.320.5-60.0 %Monocytes Percent Auto5.51.7- 12.0 %Eosinophils Percent Auto0.10.9-7.0 %Basophils Percent Auto0.10.2-2.0 % Immature Granulocytes Pct Auto2.70.0-0.5 %Neutrophils Absolute Auto14.11.4-6.5 10 3/uLLymphocytes Absolute Auto0.51.2-3.8 10 3/uLMonocytes Absolute Auto0.90.3- 0.8 10 3/uLEosinophils Absolute Auto0.00.0-0.7 10 3/uLBasophils Absolute Auto0.0 0.0-0.1 10 3/uLImmature Granulocytes Abs Auto0.430.00-0.03 10 3/uLPerforming Lab:see noteML - [facility] LBCBC AUTO DIFF Reviewed date:02/09/2025 10:41:20 AM Interpretation: Performing Lab: Notes/Report: [facility] ,White Blood Count6.14.0-11.0 10 3/uLRed Blood Count5.314.70-6.10 10 6/uL Hzfjjuufff49.114.0-18.0 g/fCVgcyiicmyb64.242.0-54.0 %Mean Corpuscular Cauuxh83.1 80.0-94.0 fLMean Corpuscular Iuvykjrgkz70.425.9-34.0 pgMean Corpuscular HGB Conc 33.429.9-35.2 g/dLRed Cell Distribution Width13.611.0-15.0 %Platelet Pxlqx150 150-450 10 3/uLMean Platelet Grtsle01.59.5-13.5 fLNeutrophils Percent Auto55.2 43.0-75.0 %Lymphocytes Percent Auto29.420.5-60.0 %Monocytes Percent Auto11.91.7- 12.0 %Eosinophils Percent Auto1.50.9-7.0 %Basophils Percent Auto1.80.2-2.0 % Immature Granulocytes Pct Auto0.20.0-0.5 %Neutrophils Absolute Auto3.41.4-6.5 10 3/uLLymphocytes Absolute Auto1.81.2-3.8 10 3/uLMonocytes Absolute Auto0.70.3-0.8 10 3/uLEosinophils Absolute Auto0.10.0-0.7 10 3/uLBasophils Absolute Auto0.10.0- 0.1 10 3/uLImmature Granulocytes Abs Auto0.010.00-0.03 10 3/uLPerforming Lab:see noteML - [facility] LBLACTATE or LACTIC ACID Reviewed date:02/09/2025 10:41:20 AM Interpretation: Performing Lab: Notes/Report: [facility] ,Lactate/Lactic Acid1.00.4-2.0 mmol/LPerforming Lab:see note - [facility] LBLIPASE Reviewed date:02/09/2025 10:41:20 AM Interpretation: Performing Lab: Notes/Report: [facility] ,Mhszvs97.016.0-77.0 U/LPerforming Lab:see noteML - [facility] LBPROF 14(COMP METB) Reviewed date:02/09/2025 10:41:20 AM Interpretation: Performing Lab: Notes/Report: [facility] ,Bwsdnw605956-555 mmol/LPotassium3.63.5-5.1 mmol/ETdrvejhv95150-381 mmol/LCarbon Yimjnid42.121.0-32.0 mmol/LAnion Gap11.2Gmmozsg8609-419 mg/dLBlood Urea Nitrogen 11.07.0-18.0 mg/dLCreatinine0.800.70-1.30 mg/dLEstimated GFR ( Cinthia>60 >=60 mL/min/1.73m 2Estimated GFR (Non- Sabine>60>=60 mL/min/1.73m 2BUN Creatinine Ratio13.0Btesawn9.38.5-10.1 mg/dLBilirubin Total0.40.2-1.0 mg/dL Aspartate Amino Rbmdekheqki5644-23 U/LAlanine Errxambfiplcjosa7445-19 U/L Alkaline Hxyysctujld6881-758 U/LTotal Protein7.06.4-8.2 g/dLAlbumin Level3.73.4- 5.0 g/dLGlobulin3.3Albumin Globulin Ratio1.1Performing Lab:see noteML - [facility] LBUA Micro, reflex to culture Reviewed date:02/09/2025 10:41:20 AM Interpretation: Performing Lab: Notes/Report: [facility] ,Color UrineYELLOWYELLOWClarity UrineSL CLOUDYCLEARSpecific [place] Urine1.025 1.005-1.025pH Urine6.55.0-9.0Protein UrineNEGATIVENEG/TRACE mg/dLGlucose Urine UANEGATIVENEGATIVE mg/dLBilirubin UrineNEGATIVENEGATIVEKetones UrineNEGATIVE NEGATIVE mg/dLBlood UrineNEGATIVENEGATIVENitrite UrineNEGATIVENEGATIVE Urobilinogen Urine1.00.2-1.0 EU/dLLeukocyte Esterase UrineNEGATIVENEGATIVEWBC Urine0-2NONE SEEN #/HPFRBC Urine2-50-2 #/HPFBacteria UrineTRACENONE SEEN #/HPF Mucus UrineNONE SEENNONE SEENSquamous Epithelial Cell UrineNONE SEENNONE/RARE #/LPFCrystals Seen?SeenNone Seen #/HPFAmorphous Sediment UrineRARECast Seen?NONE SEENNONE SEEN #/LPFUrine Culture IndicatedNOPerforming Lab:see noteML - [facility] LBLIPASE Reviewed date:02/24/2025 12:59:19 PM Interpretation: Performing Lab: Notes/Report: [facility] ,Nqmoww71.016.0-77.0 U/LPerforming Lab:see noteML - [facility] LBPROF 14(COMP METB) Reviewed date:02/24/2025 12:59:19 PM Interpretation: Performing Lab: Notes/Report: [facility] ,Qscrok479973-315 mmol/LPotassium3.33.5-5.1 mmol/WYxeokrxj15454-928 mmol/LCarbon Xlmigsp88.121.0-32.0 mmol/LAnion Gap14.7Plbxopa54897-675 mg/dLBlood Urea Bhjpnvgs67.07.0-18.0 mg/dLCreatinine0.860.70-1.30 mg/dLEstimated GFR ( Cinthia>60>=60 mL/min/1.73m 2Estimated GFR (Non- Sabine>60>=60 mL/min/1.73m 2BUN Creatinine Ratio11.6Nvgknvr4.78.5-10.1 mg/dLBilirubin Total1.20.2-1.0 mg/dL Aspartate Amino Bjadeaglrbi2213-76 U/LAlanine Vwdxdursxfpyckrf1606-41 U/L Alkaline Scxffxjuqjc2730-519 U/LTotal Protein7.36.4-8.2 g/dLAlbumin Level3.83.4- 5.0 g/dLGlobulin3.5Albumin Globulin Ratio1.1Performing Lab:[facility] LBBlood Culture 1 Reviewed date:03/02/2025 04:15:36 PM Interpretation: Performing Lab: Notes/Report: RIGHT AC [facility] ,Blood Culture 1See Below For Report Blood Culture 1 NG5D NO GROWTH AT 5 DAYS.^NO GROWTH AT 5 DAYS. Performing Lab:see [facility] LBBlood Culture 2 Reviewed date:03/02/2025 04:15:36 PM Interpretation: Performing Lab: Notes/Report: RIGHT WRIST - PEDS [facility] ,Blood Culture 2See Below For Report Blood Culture 2 NG5D NO GROWTH AT 5 DAYS.^NO GROWTH AT 5 DAYS. Performing Lab:see [facility] LBWhite Blood Cells Reviewed date:03/03/2025 08:35:52 AM Interpretation: Performing Lab: Notes/Report: [facility] ,White Blood CellsSee Below For Report White Blood Cells White Blood CellsMany White Blood Cells Performing Lab:see note - [facility] LBEpithelial Cells Reviewed date:03/03/2025 08:35:52 AM Interpretation: Performing Lab: Notes/Report: [facility] ,Epithelial CellsSee Below For Report None seen Epithelial Cells Performing Lab:see note - [facility] LBResult 1 Reviewed date:03/03/2025 08:35:52 AM Interpretation: Performing Lab: Notes/Report: [facility] ,Result 1See Below For Report Result 1 Moderate gram negative rods. Performing Lab:see note - [facility] LBResult 2 Reviewed date:03/03/2025 08:35:52 AM Interpretation: Performing Lab: Notes/Report: [facility] ,Result 2See Below For Report Result 2 BEN DAY ARTIST Performing Lab:see note - [facility] LBResult 3 Reviewed date:03/03/2025 08:35:52 AM Interpretation: Performing Lab: Notes/Report: [facility] ,Result 3See Below For Report BEN DAY ARTIST Result 3 Performing Lab:see note - [facility] LBResult 4 Reviewed date:03/03/2025 08:35:52 AM Interpretation: Performing Lab: Notes/Report: [facility] ,Result 4See Below For Report Result 4 BEN DAY ARTIST Performing Lab:see note - [facility] LBGram Stain Evaluation Reviewed date:03/02/2025 09:23:11 AM Interpretation: Performing Lab: Notes/Report: [facility] ,Gram Stain EvaluationSee Below For Report Gram Stain Evaluation This specimen is of good quality and is acceptable for routine Gram Stain Evaluationbacterial culture. Gram Stain Evaluation This specimen is of good quality and is acceptable for routine Performing Lab:see note - [facility] LBLower Respiratory Culture Reviewed date:03/03/2025 08:35:52 AM Interpretation: Performing Lab: Notes/Report: [facility] ,Lower Respiratory CultureSee Below For Report WILL FOLLOW O:HAEINF Isolated Lower Respiratory Culture Lower Respiratory CultureOrganism: Haemophilus influenzae : WILL FOLLOW O:HAEINF Isolated Lower Respiratory Culture Lower Respiratory Culture*ABNORMAL* WILL FOLLOW O:HAEINF Isolated Lower Respiratory Culture Lower Respiratory CultureHeavy growth WILL FOLLOW O:HAEINF Isolated Lower Respiratory Culture Lower Respiratory CultureBeta lactamase negative. WILL FOLLOW O:HAEINF Isolated Lower Respiratory Culture Lower Respiratory CultureAmoxicillin-clavulanic acid, azithromycin, WILL FOLLOW O:HAEINF Isolated Lower Respiratory Culture Lower Respiratory Cultureclarithromycin, cefaclor, cefprozil, cefdinir, WILL FOLLOW O:HAEINF Isolated Lower Respiratory Culture Lower Respiratory Culturecefixime, cefpodoxime, and cefuroxime are oral agents WILL FOLLOW O:HAEINF Isolated Lower Respiratory Culture Lower Respiratory Culturethat may be used as empiric therapy for respiratory WILL FOLLOW O:HAEINF Isolated Lower Respiratory Culture Lower Respiratory Culturetract infections due to Haemophilus spp. The results WILL FOLLOW O:HAEINF Isolated Lower Respiratory Culture Lower Respiratory Cultureof susceptibility tests with these antimicrobial WILL FOLLOW O:HAEINF Isolated Lower Respiratory Culture Lower Respiratory Cultureagents are often not necessary for management of WILL FOLLOW O:HAEINF Isolated Lower Respiratory Culture Lower Respiratory Cultureindividual patients (CLSI). If susceptibility testing WILL FOLLOW O:HAEINF Isolated Lower Respiratory Culture Lower Respiratory Cultureis desired please contact the laboratory within 3 WILL FOLLOW O:HAEINF Isolated Lower Respiratory Culture Lower Respiratory Culturedays. WILL FOLLOW O:HAEINF Isolated Lower Respiratory Culture Lower Respiratory CultureHaemophilus influenzae WILL FOLLOW O:HAEINF Isolated Lower Respiratory Culture Lower Respiratory CultureOrganism: Haemophilus influenzae : WILL FOLLOW O:HAEINF Isolated Lower Respiratory Culture Lower Respiratory Culture*ABNORMAL* WILL FOLLOW O:HAEINF Isolated Lower Respiratory Culture Lower Respiratory CultureHeavy growth WILL FOLLOW O:HAEINF Isolated Lower Respiratory Culture Lower Respiratory CultureBeta lactamase negative. WILL FOLLOW O:HAEINF Isolated Lower Respiratory Culture Lower Respiratory CultureAmoxicillin-clavulanic acid, azithromycin, WILL FOLLOW O:HAEINF Isolated Lower Respiratory Culture Lower Respiratory Cultureclarithromycin, cefaclor, cefprozil, cefdinir, WILL FOLLOW O:HAEINF Isolated Lower Respiratory Culture Lower Respiratory Culturecefixime, cefpodoxime, and cefuroxime are oral agents WILL FOLLOW O:HAEINF Isolated Lower Respiratory Culture Lower Respiratory Culturethat may be used as empiric therapy for respiratory WILL FOLLOW O:HAEINF Isolated Lower Respiratory Culture Lower Respiratory Culturetract infections due to Haemophilus spp. The results WILL FOLLOW O:HAEINF Isolated Lower Respiratory Culture Lower Respiratory Cultureof susceptibility tests with these antimicrobial WILL FOLLOW O:HAEINF Isolated Lower Respiratory Culture Lower Respiratory Cultureagents are often not necessary for management of WILL FOLLOW O:HAEINF Isolated Lower Respiratory Culture Lower Respiratory Cultureindividual patients (CLSI). If susceptibility testing WILL FOLLOW O:HAEINF Isolated Lower Respiratory Culture Lower Respiratory Cultureis desired please contact the laboratory within 3 WILL FOLLOW O:HAEINF Isolated Lower Respiratory Culture Lower Respiratory Culturedays. WILL FOLLOW O:HAEINF Isolated Lower Respiratory Culture Lower Respiratory Culture WILL FOLLOW O:HAEINF Isolated Lower Respiratory Culture Lower Respiratory CultureRoutine respiratory naye WILL FOLLOW O:HAEINF Isolated Lower Respiratory Culture Lower Respiratory CultureModerate growth WILL FOLLOW O:HAEINF Isolated Lower Respiratory Culture Lower Respiratory CultureSee Below For Report WILL FOLLOW O:HAEINF Isolated Lower Respiratory Culture Lower Respiratory CulturePerformed at: CB - [facility] [place] WILL FOLLOW O:HAEINF Isolated Lower Respiratory Culture Lower Respiratory [id number] [place], [place] [id number] WILL FOLLOW O:HAEINF Isolated Lower Respiratory Culture Lower Respiratory CultureLab Director: Yonny Pa PhD, Phone: [phone] WILL FOLLOW O:HAEINF Isolated Lower Respiratory Culture Performing Lab:see note LC - [facility] LB SEE REPORT - Apns Id information not found for 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 XR chest 2V Reviewed date:02/24/2025 12:59:19 PM Interpretation: Performing Lab: Notes/Report: Source Facility: [address] [address] XRay Report Signed Patient: LUIS SOLOMON MR#: [id number] : 1990 Acct:[id number] Age/Sex: 34 / M ADM Date: 02/24/25 Loc: ER Attending Dr: Ordering Physician: Destiney Larsen Date of Service: 02/24/25 Procedure(s): XR chest 2V Accession Number(s): [id number] cc: NEETU BARBOZA ; Destiney Larsen [place] [address] Patient Name: LUIS SOLOMON MRN: [id number] date: 1990 Sex: M Assigned Patient Location: ER Current Patient Location: ER Accession/Order Number: [id number] Exam Date: 02/24/2025 10:46 Report Date: 02/24/2025 [...] Coats M.D. 02/24/2025 11:29 AM Dictation Location: [place] [address] Electronically authenticated by: [id number] Y Date: 02/24/2025 11:29 Dictated By: Amy Coats M.D. Signed By: 02/24/25 1132 DD/ 1129 TD/TT: Customer Marketing Assistant:CT abdomen pelvis w con Reviewed date:02/24/2025 12:59:19 PM Interpretation: Performing Lab: Notes/Report: Source Facility: [place] [address] [place] [address] CT Scan Report Signed Patient: LUIS SOLOMON MR#: [id number] : 1990 Acct:[id number] Age/Sex: 34 / M ADM Date: 02/24/25 Loc: ER Attending Dr: Ordering Physician: Destiney Larsen Date of Service: 02/24/25 Procedure(s): CT abdomen pelvis w con Accession Number(s): [id number] cc: NEETU BARBOZA [place] [address] Patient Name: LUIS SOLOMON MRN: [id number] date: 1990 Sex: M Assigned Patient Location: ER Current Patient Location: ER Accession/Order Number: [id number] Exam Date: 02/24/2025 10:35 Report Date: 02/24/2025 [...] Coats M.D. 02/24/2025 11:43 AM Dictation Location: [place] [address] Electronically authenticated by: [id number] Y Date: 02/24/2025 11:43 Dictated By: Amy Coats M.D. Signed By: 02/24/25 1145 DD/ 1143 TD/TT: Customer Marketing Assistant:Gram Stain Evaluation Reviewed date:03/03/2025 08:35:52 AM Interpretation: Performing Lab: Notes/Report: [facility] ,Gram Stain EvaluationSee Below For Report This specimen is of good quality and is acceptable for routine Gram Stain Evaluation Gram Stain Evaluationbacterial culture. This specimen is of good quality and is acceptable for routine Gram Stain Evaluation Performing Lab:see noteLC - [facility] LBMAGNESIUM Reviewed date:02/25/2025 08:32:18 AM Interpretation: Performing Lab: Notes/Report: [facility] ,Magnesium1.91.8-2.4 mg/dLPerforming Lab:see noteML - [facility] LB PHOSPHORUS Reviewed date:02/25/2025 08:32:18 AM Interpretation: Performing Lab: Notes/Report: [facility] ,Phosphorus2.22.6-4.7 mg/dLPerforming Lab:see noteML - [facility] LB PROF 14(COMP METB) Reviewed date:02/25/2025 08:32:18 AM Interpretation: Performing Lab: Notes/Report: [facility] ,Aghuaa919396-321 mmol/LPotassium4.23.5-5.1 mmol/ZGcnyxgzu98494-736 mmol/LCarbon Mmfldvf50.121.0-32.0 mmol/LAnion Gap15.2Tstmlhk38626-784 mg/dLBlood Urea Nitrogen9.07.0-18.0 mg/dLCreatinine0.930.70-1.30 mg/dLEstimated GFR ( Cinthia>60>=60 mL/min/1.73m 2Estimated GFR (Non- Sabine>60>=60 mL/min/1.73m 2BUN Creatinine Ratio9.0Suejmaj8.68.5-10.1 mg/dLBilirubin Total0.40.2-1.0 mg/dL Aspartate Amino Ryqtnvyqogv153-77 U/LAlanine Giplbsqehyuqmlwc9109-24 U/LAlkaline Swbzcfsipbs8102-019 U/LTotal Protein6.66.4-8.2 g/dLAlbumin Level3.23.4-5.0 g/dL Globulin3.4Albumin Globulin Ratio0.9Performing Lab:see noteML - [facility] LBCBC no Diff (Hemogram) Reviewed date:02/25/2025 08:32:18 AM Interpretation: Performing Lab: Notes/Report: [facility] ,White Blood Count6.24.0-11.0 10 3/uLRed Blood Count4.654.70-6.10 10 6/uL Euugrglbsk23.514.0-18.0 g/dRApdsrgjiqi35.542.0-54.0 %Mean Corpuscular Lluuhz59.9 80.0-94.0 fLMean Corpuscular Kxasrcwxhj90.025.9-34.0 pgMean Corpuscular HGB Conc 34.229.9-35.2 g/dLRed Cell Distribution Width13.711.0-15.0 %Platelet Sczuk828 150-450 10 3/uLMean Platelet Wcimri06.29.5-13.5 fLPerforming Lab:see noteML - [facility] LBCBC AUTO DIFF Reviewed date:04/06/2025 09:40:56 AM Interpretation: Performing Lab: Notes/Report: [facility] ,White Blood Count9.94.0-11.0 10 3/uLRed Blood Count5.254.70-6.10 10 6/uL Dxoxuajfit91.414.0-18.0 g/gFWcxrbmrrol30.342.0-54.0 %Mean Corpuscular Ktfhuk49.4 80.0-94.0 fLMean Corpuscular Mozbrcelxq57.325.9-34.0 pgMean Corpuscular HGB Conc 34.829.9-35.2 g/dLRed Cell Distribution Width13.211.0-15.0 %Platelet Gnill840 150-450 10 3/uLMean Platelet Fufchk20.09.5-13.5 fLNeutrophils Percent Auto77.9 43.0-75.0 %Lymphocytes Percent Auto12.320.5-60.0 %Monocytes Percent Auto8.31.7- 12.0 %Eosinophils Percent Auto0.50.9-7.0 %Basophils Percent Auto0.80.2-2.0 % Immature Granulocytes Pct Auto0.20.0-0.5 %Neutrophils Absolute Auto7.71.4-6.5 10 3/uLLymphocytes Absolute Auto1.21.2-3.8 10 3/uLMonocytes Absolute Auto0.80.3-0.8 10 3/uLEosinophils Absolute Auto0.10.0-0.7 10 3/uLBasophils Absolute Auto0.10.0- 0.1 10 3/uLImmature Granulocytes Abs Auto0.020.00-0.03 10 3/uLPerforming Lab:see noteML - [facility] LBINFLUENZA A AND B AG Reviewed date:04/06/2025 09:40:56 AM Interpretation: Performing Lab: Notes/Report: [facility] ,Influenza Virus A AntigenNegative Negative for Flu [...] the test. Performing Lab:see noteML - [facility] LBPROF CHEM 8 (BAS METB) Reviewed date:04/06/2025 09:40:56 AM Interpretation: Performing Lab: Notes/Report: [facility] ,Plvivb133368-603 mmol/LPotassium3.83.5-5.1 mmol/FOyqdppcp84575-403 mmol/LCarbon Xzznbuw32.521.0-32.0 mmol/LAnion Gap13.8Xndbqiq5862-000 mg/dLBlood Urea Nitrogen 10.07.0-18.0 mg/dLCreatinine0.810.70-1.30 mg/dLEstimated GFR ( Cinthia>60 >=60 mL/min/1.73m 2Estimated GFR (Non- Sabine>60>=60 mL/min/1.73m 2BUN Creatinine Ratio12.2Oodfyss6.98.5-10.1 mg/dLPerforming Lab:see noteML - [facility] YKJRXW-VgA-6 Ag* Reviewed date:04/06/2025 09:40:56 AM Interpretation: Performing Lab: Notes/Report: [facility] ,SARS-CoV-2 AgNEGATIVENEGATIVE This test has not been [...] revoked sooner. Performing Lab:see noteML - [facility] LBXR chest 2V Reviewed date:04/06/2025 09:40:56 AM Interpretation: Performing Lab: Notes/Report: Source Facility: [address] [address] XRay Report Signed Patient: LUIS SOLOMON MR#: [id number] : 1990 Acct:[id number] Age/Sex: 34 / M ADM Date: 04/05/25 Loc: ER Attending Dr: Ordering Physician: Destiney Larsen Date of Service: 04/05/25 Procedure(s): XR chest 2V Accession Number(s): [id number] cc: NEETU BARBOZA ; Destiney Larsen [place] [address] Patient Name: LUIS SOLOMON MRN: [id number] date: 1990 Sex: M Assigned Patient Location: ED.MAIN Current Patient Location: ED.MAIN Accession/Order Number: [id number] Exam Date: 04/05/2025 12:05 Report Date: 04/05/2025 12:48 At the request of: DESTINEY LARSEN DO Procedure: XR chest 2V XR chest 2V 04/05/2025 12:12 PM SIGNS AND SYMPTOMS: r/o PNA, h/o brochiectasis PROTOCOL: Frontal and lateral graphs of the chest COMPARISON: 02/24/2025 FINDINGS: The trachea is midline. The heart and mediastinal structures are within normal limits. Small pleural effusions are noted, left greater than right similar to the prior exam. Perihilar vascular prominence and airspace opacities are redemonstrated. These appear to be chronic. There is chronic scarring laterally along the right pleural surface. The bony thorax is intact. XR/XR chest 2V IMPRESSION: No acute cardiopulmonary pathology. Small bilateral pleural effusions are redemonstrated with chronic interstitial prominence and perihilar airspace opacities. Impression dictated by: Ashish Candelario M.D. 04/05/2025 12:48 PM Dictation Location: [place] [address] Electronically authenticated by: [id number] Y Date: 04/05/2025 12:48 Dictated By: Ashish Candelario M.D. Signed By: 04/05/25 1251 DD/ 1248 TD/TT: Customer Marketing Assistant:INFLUENZA A AND B AG Reviewed date:04/09/2025 11:47:53 AM Interpretation: Performing Lab: Notes/Report: [facility] ,Influenza Virus A AntigenNegative Negative for Flu [...] the test. Performing Lab:see noteML - [facility] URVBRA-HkS-9 Ag* Reviewed date:04/09/2025 11:47:53 AM Interpretation: Performing Lab: Notes/Report: [facility] ,SARS-CoV-2 AgNEGATIVENEGATIVE This test has not been [...] revoked sooner. Performing Lab:see noteML - [facility] LBXR chest 1V Reviewed date:04/09/2025 02:22:27 PM Interpretation: Performing Lab: Notes/Report: Source Facility: [facility]-[address] [place] [address] [place] [address] XRay Report Signed Patient: LUIS SOLOMON MR#: [id number] : 1990 Acct:[id number] Age/Sex: 34 / M ADM Date: 04/09/25 Loc: ER Attending Dr: Ordering Physician: Comfort Costa Date of Service: 04/09/25 Procedure(s): XR chest 1V Accession Number(s): [id number] cc: NEETU BARBOZA ; Comfort Costa [place] [id number] Patient Name: LUIS SOLOMON MRN: [facility]:[id number] date: 1990 Sex: M Assigned Patient Location: ER Current Patient Location: ER Accession/Order Number: [id number] Exam Date: 04/09/2025 11:37 Report Date: 04/09/2025 12:08 At the request of: COMFORT COSTA MD Procedure: XR chest 1V PA CHEST: CLINICAL HISTORY: sob COMPARISON: 04/05/2025 Stable cardiomediastinal silhouette. Increased perihilar opacity. Emphysematous changes. Trace blunting costophrenic angles likely effusion or scarring. XR/XR chest 1V IMPRESSION: Chronic changes. Negative acute airspace disease. Impression dictated by: Saurav Álvarez M.D. 04/09/2025 12:08 PM Dictation Location: [place] [address] Electronically authenticated by: [id number] Y Date: 04/09/2025 12:08 Dictated By: Saurav Álvarez M.D. Signed By: 04/09/25 1210 DD/ 1208 TD/TT: Customer Marketing Assistant:SARS-CoV-2 Ag* Reviewed date:02/25/2025 08:32:18 AM Interpretation: Performing Lab: Notes/Report: [facility] ,SARS-CoV-2 AgNEGATIVENEGATIVE This test has not been [...] revoked sooner. Performing Lab:see noteML - [facility] LBRSV Reviewed date:02/25/2025 08:32:18 AM Interpretation: Performing Lab: Notes/Report: [facility] ,Respiratory Syncytial VirusNot DetectedNOT DETECTEPerforming Lab:see noteML - [facility] LBINFLUENZA A AND B AG Reviewed date:02/25/2025 08:32:18 AM Interpretation: Performing Lab: Notes/Report: [facility] ,Influenza Virus A AntigenNegative Negative for Flu [...] the test. Performing Lab:see noteML - [facility] LBCBC AUTO DIFF Reviewed date:02/24/2025 12:59:19 PM Interpretation: Performing Lab: Notes/Report: [facility] ,White Blood Count11.44.0-11.0 10 3/uLRed Blood Count5.184.70-6.10 10 6/uL Horazjuspk72.014.0-18.0 g/nMEpcwjzmopc81.642.0-54.0 %Mean Corpuscular Azsejg35.2 80.0-94.0 fLMean Corpuscular Qenpeqnwvg62.025.9-34.0 pgMean Corpuscular HGB Conc 34.429.9-35.2 g/dLRed Cell Distribution Width13.711.0-15.0 %Platelet Fvnve800 150-450 10 3/uLMean Platelet Ftaiox48.39.5-13.5 fLNeutrophils Percent Auto81.9 43.0-75.0 %Lymphocytes Percent Auto7.320.5-60.0 %Monocytes Percent Auto9.71.7- 12.0 %Eosinophils Percent Auto0.10.9-7.0 %Basophils Percent Auto0.70.2-2.0 % Immature Granulocytes Pct Auto0.30.0-0.5 %Neutrophils Absolute Auto9.31.4-6.5 10 3/uLLymphocytes Absolute Auto0.81.2-3.8 10 3/uLMonocytes Absolute Auto1.10.3-0.8 10 3/uLEosinophils Absolute Auto0.00.0-0.7 10 3/uLBasophils Absolute Auto0.10.0- 0.1 10 3/uLImmature Granulocytes Abs Auto0.030.00-0.03 10 3/uLPerforming Lab:see noteML - [facility] LBPROF CHEM 8 (BAS METB) Reviewed date:08/13/2024 07:49:50 PM Interpretation: Performing Lab: Notes/Report: [facility] ,Tjmvat765389-483 mmol/LPotassium4.13.5-5.1 mmol/NAqukvbuw38378-525 mmol/LCarbon Ceqcnzu41.121.0-32.0 mmol/LAnion Gap12.0Gjzugxy89805-167 mg/dLBlood Urea Msohkdme01.07.0-18.0 mg/dLCreatinine0.810.70-1.30 mg/dLEstimated GFR ( Cinthia>60>=60 mL/min/1.73m 2Estimated GFR (Non- Sabine>60>=60 mL/min/1.73m 2BUN Creatinine Ratio27.2Kgttbzq5.08.5-10.1 mg/dLPerforming Lab:see noteML - [facility] LBGram Stain Evaluation Reviewed date:08/18/2024 01:51:36 PM Interpretation: Performing Lab: Notes/Report: [facility] ,Gram Stain EvaluationSee Below For Report Gram Stain Evaluation This specimen is of good quality and is acceptable for routine Gram Stain Evaluationbacterial culture. Gram Stain Evaluation This specimen is of good quality and is acceptable for routine Performing Lab:see noteLC - [facility] LBPROF CHEM 8 (BAS METB) Reviewed date:08/12/2024 09:10:33 AM Interpretation: Performing Lab: Notes/Report: [facility] ,Gekadh004796-009 mmol/LPotassium4.13.5-5.1 mmol/FEmaypacv56523-855 mmol/LCarbon Vdqxunk33.921.0-32.0 mmol/LAnion Gap10.7Zpemupl17548-618 mg/dLBlood Urea Pllpdqyw38.07.0-18.0 mg/dLCreatinine0.840.70-1.30 mg/dLEstimated GFR ( Cinthia>60>=60 mL/min/1.73m 2Estimated GFR (Non- Sabine>60>=60 mL/min/1.73m 2BUN Creatinine Ratio26.7Jjxacid3.08.5-10.1 mg/dLPerforming Lab:see noteML - [facility] LBLower Respiratory Culture Reviewed date:08/18/2024 01:51:36 PM [...] Isolated Lower Respiratory CulturePerformed at: CB - [facility] Lower Respiratory Culture WILL FOLLOW O:CANALB Isolated Lower Respiratory [address] [place], [place] [id number] Lower Respiratory Culture WILL FOLLOW O:CANALB Isolated Lower Respiratory CultureLab Director: Yonny Pa PhD, Phone: [phone] Lower Respiratory Culture WILL FOLLOW O:CANALB Isolated Performing Lab:see note LC - [facility] LB SEE REPORT - Apns Id information not found for 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 Gram Stain Evaluation Reviewed date:08/18/2024 01:51:36 PM Interpretation: Performing Lab: Notes/Report: [facility] ,Gram Stain EvaluationSee Below For Report Gram Stain Evaluation This specimen is of good quality and is acceptable for routine Gram Stain Evaluationbacterial culture. Gram Stain Evaluation This specimen is of good quality and is acceptable for routine Performing Lab:see noteLC - [facility] LBResult 4 Reviewed date:08/18/2024 01:51:36 PM Interpretation: Performing Lab: Notes/Report: [facility] ,Result 4See Below For Report Result 4 BEN DAY ARTIST Performing Lab:see noteLC - [facility] LBResult 3 Reviewed date:08/18/2024 01:51:36 PM Interpretation: Performing Lab: Notes/Report: [facility] ,Result 3See Below For Report Result 3 *ABNORMAL* Result 3Rare gram negative rods. Result 3 *ABNORMAL* Performing Lab:see noteLC - [facility] LBResult 2 Reviewed date:08/18/2024 01:51:36 PM Interpretation: Performing Lab: Notes/Report: [facility] ,Result 2See Below For Report Result 2 Few gram positive cocci Performing Lab:see noteLC - [facility] LBResult 1 Reviewed date:08/18/2024 01:51:36 PM Interpretation: Performing Lab: Notes/Report: [facility] ,Result 1See Below For Report Result 1 Small amount of yeast seen. Performing Lab:see noteLC - [facility] LBEpithelial Cells Reviewed date:08/18/2024 01:51:36 PM Interpretation: Performing Lab: Notes/Report: [facility] ,Epithelial CellsSee Below For Report Epithelial Cells Few Performing Lab:see noteLC - [facility] LBWhite Blood Cells Reviewed date:08/18/2024 01:51:36 PM Interpretation: Performing Lab: Notes/Report: [facility] ,White Blood CellsSee Below For Report White Blood Cells White Blood CellsNone seen White Blood Cells Performing Lab:see noteLC - [facility] LBVANCOMYCIN TROUGH Reviewed date:08/12/2024 01:31:23 PM Interpretation: Performing Lab: Notes/Report: [facility] ,Vancomycin Jpbdzj15.45.0-20.0 ug/mLPerforming Lab:see noteML - [facility] LBCBC AUTO DIFF Reviewed date:08/12/2024 08:28:59 AM Interpretation: Performing Lab: Notes/Report: [facility] ,White Blood Count15.14.0-11.0 10 3/uLRed Blood Count4.854.70-6.10 10 6/uL Jholmayldn81.814.0-18.0 g/nWQuzxunowze64.042.0-54.0 %Mean Corpuscular Dsprhc37.6 80.0-94.0 fLMean Corpuscular Owwlldxcrn59.525.9-34.0 pgMean Corpuscular HGB Conc 32.929.9-35.2 g/dLRed Cell Distribution Width12.911.0-15.0 %Platelet Gaxoh965 150-450 10 3/uLMean Platelet Lklzjf95.39.5-13.5 fLNeutrophils Percent Auto89.0 43.0-75.0 %Lymphocytes Percent Auto4.320.5-60.0 %Monocytes Percent Auto4.11.7- 12.0 %Eosinophils Percent Auto0.40.9-7.0 %Basophils Percent Auto0.20.2-2.0 % Immature Granulocytes Pct Auto2.00.0-0.5 %Neutrophils Absolute Auto13.41.4-6.5 10 3/uLLymphocytes Absolute Auto0.61.2-3.8 10 3/uLMonocytes Absolute Auto0.60.3- 0.8 10 3/uLEosinophils Absolute Auto0.10.0-0.7 10 3/uLBasophils Absolute Auto0.0 0.0-0.1 10 3/uLImmature Granulocytes Abs Auto0.300.00-0.03 10 3/uLPerforming Lab:see noteML - [facility] LBECG 12 lead Reviewed date:08/10/2024 03:10:26 PM Interpretation: Performing Lab: Notes/Report: Source Facility: [facility]-[address] [place] [address] [place] [address] Electrocardiograph Report Signed Patient: LUIS SOLOMON MR#: [id number] : 1990 Acct:[id number] Age/Sex: 33 / M ADM Date: 08/09/24 Loc: ICU 273-[address]: Nicola Wyatt D.O. 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 Measurements Intervals [place] Rate: 124 P: 44 SC: 144 QRS: 191 QRSD: 82 T: 48 [...] Signed By: 08/09/24 1706 DD/ 0921 TD/TT: Customer Marketing Assistant:Ed Reviewed date:08/10/2024 03:10:26 PM Interpretation: Performing Lab: Notes/Report: [facility] ,Rlwzjqe12QWSN: 80 mg/dl is the legal limit for a blood alcohol levelPerforming Lab:see noteML - [facility] LBTroponin I High Sensitivity Reviewed date:08/10/2024 03:10:26 PM Interpretation: Performing Lab: Notes/Report: [facility] ,Troponin I High Sensitivity5.44.0-76.1 pg/mL CUT-OFF POINTS HAVE BEEN ESTABLISHED BASED ON THE FOURTH UNIVERSAL DEFINITION OF MYOCARDIAL INFARCTION. THE UPPER REFERENCE LIMIT (URL) OF TROPONIN, DEFINED THE 99TH PERCENTILE OF cTnI DISTRIBUTION IN A REFERENCE POPULATION, HAS BEEN CONFIRMED THE DECISION THRESHOLD FOR [place] DIAGNOSIS. 99TH PERCENTILE = 76.2 PG/ML NOTE: HIGH-SENSITIVITY TROPONIN ASSAY IS NOT INTENDED TO BE USED IN ISOLATION BUT SHOULD BE INTERPRETED IN CONJUNCTION WITH OTHER DIAGNOSTIC AND CLINICAL INFORMATION. Performing Lab:see noteML - [facility] LBManual Differential Reviewed date:08/10/2024 03:10:26 PM Interpretation: Performing Lab: Notes/Report: [facility] ,Segmented Neutrophils % Rwhmfx02.043.0-75.0Lymphocytes Percent Manual6.020.5- 60.0 %Monocytes Percent Manual8.01.7-12.0 %Eosinophils Percent Manual0.00.9-7.0 %Basophils Percent Manual0.00.2-2.0 %Segmented Neut Absolute Kqmjmp93.241.4-6.5 10 3/uLLymphocytes Absolute Manual1.481.20-3.80 10 3/uLMonocytes Absolute Manual 1.970.30-0.80 10 3/uLEosinophils Absolute Manual0.000.00-0.70 10 3/uLBasophils Abs Manual0.000.00-0.10 10 3/uLPerforming Lab:see note - [facility] LBBlood Culture 2 Reviewed date:08/18/2024 01:51:36 PM Interpretation: Performing Lab: Notes/Report: RIGHT AC [facility] ,Blood Culture 2See Below For Report Blood Culture 2 NG5D NO GROWTH AT 5 DAYS.^NO GROWTH AT 5 DAYS. Performing Lab:see note - [facility] LBBlood Culture 1 Reviewed date:08/18/2024 01:51:36 PM Interpretation: Performing Lab: Notes/Report: LEFT HAND [facility] ,Blood Culture 1See Below For Report Blood Culture 1 NG5D NO GROWTH AT 5 DAYS.^NO GROWTH AT 5 DAYS. Performing Lab:see note - [facility] LBPROF 14(COMP METB) Reviewed date:08/10/2024 03:10:26 PM Interpretation: Performing Lab: Notes/Report: [facility] ,Isphyw213148-356 mmol/LPotassium3.63.5-5.1 mmol/ZSwireegz46373-940 mmol/LCarbon Zihlpuu74.721.0-32.0 mmol/LAnion Gap10.5Luvrgij15119-216 mg/dLBlood Urea Vldtkxyg58.07.0-18.0 mg/dLCreatinine0.790.70-1.30 mg/dLEstimated GFR ( Cinthia>60>=60 mL/min/1.73m 2Estimated GFR (Non- Sabine>60>=60 mL/min/1.73m 2BUN Creatinine Ratio24.5Vqadwlk0.08.5-10.1 mg/dLBilirubin Total0.30.2-1.0 mg/dL Aspartate Amino Lkdlclxrmat392-05 U/LAlanine Gtlwfddbjnnohmyy8928-09 U/LAlkaline Ossjfojcoux1852-594 U/LTotal Protein6.36.4-8.2 g/dLAlbumin Level3.33.4-5.0 g/dL Globulin3.0Albumin Globulin Ratio1.1Performing Lab:see noteML - [facility] LBCBC AUTO DIFF Reviewed date:08/10/2024 03:10:26 PM Interpretation: Performing Lab: Notes/Report: [facility] ,White Blood Count24.74.0-11.0 10 3/uLRed Blood Count5.404.70-6.10 10 6/uL Rehlngtakp78.714.0-18.0 g/tIIycwjnincc62.542.0-54.0 %Mean Corpuscular Ikyqgu53.1 80.0-94.0 fLMean Corpuscular Octtimapay92.125.9-34.0 pgMean Corpuscular HGB Conc 33.829.9-35.2 g/dLRed Cell Distribution Width13.211.0-15.0 %Platelet Rrmuw419 150-450 10 3/uLMean Platelet Hjupmr27.89.5-13.5 fLPerforming Lab:see noteML - [facility] LBPROF CHEM 8 (BAS METB) Reviewed date:08/10/2024 03:10:26 PM Interpretation: Performing Lab: Notes/Report: [facility] ,Zibmra013267-089 mmol/LPotassium4.23.5-5.1 mmol/GZhvzhkig45985-534 mmol/LCarbon Xvuazat26.521.0-32.0 mmol/LAnion Gap8.4Qkefwom36367-989 mg/dLBlood Urea Nitrogen 17.07.0-18.0 mg/dLCreatinine0.900.70-1.30 mg/dLEstimated GFR ( Cinthia>60 >=60 mL/min/1.73m 2Estimated GFR (Non- Sabine>60>=60 mL/min/1.73m 2BUN Creatinine Ratio18.9Nwmxpcf9.58.5-10.1 mg/dLPerforming Lab:see noteML - [facility] LBPROF CHEM 8 (BAS METB) Reviewed date:08/07/2024 06:53:14 PM Interpretation: Performing Lab: Notes/Report: [facility] ,Egiahy375583-525 mmol/LPotassium3.93.5-5.1 mmol/SQtrtjkwa24943-404 mmol/LCarbon Kyrsbzu75.221.0-32.0 mmol/LAnion Gap11.6Lmesorz77818-823 mg/dLBlood Urea Qxmiavci98.07.0-18.0 mg/dLCreatinine0.900.70-1.30 mg/dLEstimated GFR ( Cinthia>60>=60 mL/min/1.73m 2Estimated GFR (Non- Sabine>60>=60 mL/min/1.73m 2BUN Creatinine Ratio16.5Tseyobw0.48.5-10.1 mg/dLPerforming Lab:see noteML - [facility] LBCBC AUTO DIFF Reviewed date:08/07/2024 08:50:25 AM Interpretation: Performing Lab: Notes/Report: [facility] ,White Blood Count17.64.0-11.0 10 3/uLRed Blood Count4.704.70-6.10 10 6/uL Szyvrxlglw07.514.0-18.0 g/lBIuiqbvpake96.042.0-54.0 %Mean Corpuscular Tyicox06.2 80.0-94.0 fLMean Corpuscular Rfcyqrhqor64.725.9-34.0 pgMean Corpuscular HGB Conc 32.929.9-35.2 g/dLRed Cell Distribution Width13.211.0-15.0 %Platelet Koogw128 150-450 10 3/uLMean Platelet Lerxel45.89.5-13.5 fLNeutrophils Percent Auto93.4 43.0-75.0 %Lymphocytes Percent Auto2.820.5-60.0 %Monocytes Percent Auto2.91.7- 12.0 %Eosinophils Percent Auto0.40.9-7.0 %Basophils Percent Auto0.10.2-2.0 % Immature Granulocytes Pct Auto0.40.0-0.5 %Neutrophils Absolute Auto16.51.4-6.5 10 3/uLLymphocytes Absolute Auto0.51.2-3.8 10 3/uLMonocytes Absolute Auto0.50.3- 0.8 10 3/uLEosinophils Absolute Auto0.10.0-0.7 10 3/uLBasophils Absolute Auto0.0 0.0-0.1 10 3/uLImmature Granulocytes Abs Auto0.070.00-0.03 10 3/uLPerforming Lab:see noteML - [facility] LBPROF CHEM 8 (BAS METB) Reviewed date:08/06/2024 12:45:29 PM Interpretation: Performing Lab: Notes/Report: [facility] ,Mycoip392660-447 mmol/LPotassium4.13.5-5.1 mmol/ECdhernac40652-474 mmol/LCarbon Osngjeg60.921.0-32.0 mmol/LAnion Gap14.5Sfqztqb63250-323 mg/dLBlood Urea Ulquwqau43.07.0-18.0 mg/dLCreatinine0.980.70-1.30 mg/dLEstimated GFR ( Cinthia>60>=60 mL/min/1.73m 2Estimated GFR (Non- Sabine>60>=60 mL/min/1.73m 2BUN Creatinine Ratio12.4Wlxfmjh7.78.5-10.1 mg/dLPerforming Lab:see noteML - [facility] LBLower Respiratory Culture Reviewed date:08/10/2024 03:10:26 PM Interpretation: Performing Lab: Notes/Report: [facility] ,Lower Respiratory CultureSee Below For Report Lower Respiratory Culture WILL FOLLOW Lower Respiratory CultureSpecimen has been received and testing has been initiated. Lower Respiratory Culture WILL FOLLOW Lower Respiratory CultureRoutine respiratory naye Lower Respiratory Culture WILL FOLLOW Lower Respiratory CulturePerformed at: CB - [facility] [place] Lower Respiratory Culture WILL FOLLOW Lower Respiratory [id number] [place], [place] [id number] Lower Respiratory Culture WILL FOLLOW Lower Respiratory CultureLab Director: Yonny Pa PhD, Phone: [phone] Lower Respiratory Culture WILL FOLLOW Performing Lab:see note LC - [facility] LB SEE REPORT - Apns Id information not found for 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 Gram Stain Evaluation Reviewed date:08/10/2024 03:10:26 PM Interpretation: Performing Lab: Notes/Report: [facility] ,Gram Stain EvaluationSee Below For Report Gram Stain Evaluation This specimen is of good quality and is acceptable for routine Gram Stain Evaluationbacterial culture. Gram Stain Evaluation This specimen is of good quality and is acceptable for routine Performing Lab:see note - [facility] LBResult 4 Reviewed date:08/10/2024 03:10:26 PM Interpretation: Performing Lab: Notes/Report: [facility] ,Result 4See Below For Report Result 4 BEN DAY ARTIST Performing Lab:see noteLC - [facility] LBResult 3 Reviewed date:08/10/2024 03:10:26 PM Interpretation: Performing Lab: Notes/Report: [facility] ,Result 3See Below For Report Result 3 BEN DAY ARTIST Performing Lab:see note - [facility] LBResult 2 Reviewed date:08/10/2024 03:10:26 PM Interpretation: Performing Lab: Notes/Report: [facility] ,Result 2See Below For Report Result 2 BEN DAY ARTIST Performing Lab:see note - [facility] LBResult 1 Reviewed date:08/10/2024 03:10:26 PM Interpretation: Performing Lab: Notes/Report: [facility] ,Result 1See Below For Report Result 1 Rare gram positive cocci Performing Lab:see note - [facility] LBEpithelial Cells Reviewed date:08/10/2024 03:10:26 PM Interpretation: Performing Lab: Notes/Report: [facility] ,Epithelial CellsSee Below For Report Epithelial Cells None seen Performing Lab:see note - [facility] LBWhite Blood Cells Reviewed date:08/10/2024 03:10:26 PM Interpretation: Performing Lab: Notes/Report: [facility] ,White Blood CellsSee Below For Report White Blood Cells White Blood CellsFew White Blood Cells Performing Lab:see note - [facility] LBXR sternum min 2V Reviewed date:07/07/2024 08:16:57 AM Interpretation: Performing Lab: Notes/Report: Source Facility: [place] [address] [place] [address] XRay Report Signed Patient: LUIS SOLOMON MR#: [id number] : 1990 Acct:[id number] Age/Sex: 33 / M ADM Date: 07/03/24 Loc: ER Attending Dr: Ordering Physician: Mark Nieto M.D. Date of Service: 07/03/24 Procedure(s): XR sternum min 2V Accession Number(s): [id number] cc: NEETU BARBOZA ; Mark Nieto M.D. [place] [id number] Patient Name: LUIS SOLOMON MRN: [facility]:[id number] date: 1990 Sex: M Assigned Patient Location: ED.MAIN Current Patient Location: ER Accession/Order Number: [id number] Exam Date: 07/03/2024 07:02 Report Date: 07/03/2024 07:37 At the request of: MARK NIETO Procedure: XR sternum min 2V EXAM: XR sternum min 2V HISTORY: fall COMPARISON: None. XR/XR sternum min 2V IMPRESSION: 1. No displaced sternal fracture. Electronically authenticated by: JOSHUA AARON Date: 07/03/2024 07:37 Dictated By: Joshua Aaron M.D. Signed By: 07/03/24 0739 DD/ 0737 TD/TT: Customer Marketing Assistant:XR ribs BI min 4V w CXR1V Reviewed date:07/07/2024 08:16:57 AM Interpretation: Performing Lab: Notes/Report: Source Facility: [place] [id number] XRay Report Signed Patient: LUIS SOLOMON MR#: [id number] : 1990 Acct:[id number] Age/Sex: 33 / M ADM Date: 07/03/24 Loc: ER Attending Dr: Ordering Physician: Mark Nieto M.D. Date of Service: 07/03/24 Procedure(s): XR ribs BI min 4V w CXR1V Accession Number(s): [id number] cc: NEETU BARBOZA ; Mark Nieto M.D. [place] [address] Patient Name: LUIS SOLOMON MRN: [id number] date: 1990 Sex: M Assigned Patient Location: ED.MAIN Current Patient Location: ER Accession/Order Number: [id number] Exam Date: 07/03/2024 07:02 Report Date: 07/03/2024 [...] Signed By: 07/03/24 0747 DD/ 0745 TD/TT: Customer Marketing Assistant:ECG 12 lead Reviewed date:05/26/2024 08:18:37 AM Interpretation: Performing Lab: Notes/Report: Source Facility: [facility]-[address] [place] [address] [address] Electrocardiograph Report Signed Patient: LUIS SOLOMON MR#: [id number] : 1990 Acct:[id number] Age/Sex: 33 / M ADM Date: 05/22/24 Loc: ER Attending Dr: Ordering Physician: Kristina Martinez Date of Service: 05/22/24 Procedure(s): ECG 12 lead Accession Number(s): [id number] cc: [facility] Test Date: 2024-05-22 Pat Name: LUIS SOLOMON Department: Room: - 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 Signed By: 05/25/24 0738 DD/ 1841 TD/TT: Customer Marketing Assistant:SARS-CoV-2 Ag* Reviewed date:05/26/2024 08:18:37 AM Interpretation: Performing Lab: Notes/Report: [facility] ,SARS-CoV-2 AgNEGATIVENEGATIVE This test has not been [...] revoked sooner. Performing Lab:see noteML - [facility] LBVenous Blood Gas Reviewed date:05/26/2024 08:18:37 AM Interpretation: Performing Lab: Notes/Report: [facility] ,pH VBG7.4427.330-7.663UDF3 VBG42.540.0-52.0 mmHgPerforming Lab:see noteML - [facility] LBProthrombin Time INR Reviewed date:05/26/2024 08:18:37 AM Interpretation: Performing Lab: Notes/Report: [facility] ,Prothrombin Time10.29.0-11.6 secINR0.96 DESIRED INR: 2.0-3.0 CONDITIONS NOT LISTED BELOW 2.5-3.5 FOR PROSTHETIC HEART VALVE REPLACEMENT 2.5-3.5 RECURRENT THROMBOSIS Performing Lab:see noteML - [facility] LBRSV Reviewed date:05/26/2024 08:18:37 AM Interpretation: Performing Lab: Notes/Report: [facility] ,Respiratory Syncytial VirusNot DetectedNOT DETECTEPerforming Lab:see note - [facility] LBLACTATE or LACTIC ACID Reviewed date:05/26/2024 08:18:37 AM Interpretation: Performing Lab: Notes/Report: [facility] ,Lactate/Lactic Acid1.00.4-2.0 mmol/LPerforming Lab:see noteML - [facility] LBINFLUENZA A AND B AG Reviewed date:05/26/2024 08:18:37 AM Interpretation: Performing Lab: Notes/Report: [facility] ,Influenza Virus A AntigenNegative Negative for Flu [...] of the test. Performing Lab:see noteML - [facility] LBCBC AUTO DIFF Reviewed date:05/26/2024 08:18:37 AM Interpretation: Performing Lab: Notes/Report: [facility] ,White Blood Count9.74.0-11.0 10 3/uLRed Blood Count5.114.70-6.10 10 6/uL Vxucvqflhx02.214.0-18.0 g/wBMihcbyrfcj58.442.0-54.0 %Mean Corpuscular Hpcmip33.8 80.0-94.0 fLMean Corpuscular Vmbtixfiwm79.725.9-34.0 pgMean Corpuscular HGB Conc 33.529.9-35.2 g/dLRed Cell Distribution Width12.411.0-15.0 %Platelet Hcmhq161 150-450 10 3/uLMean Platelet Wflnoo13.09.5-13.5 fLNeutrophils Percent Auto73.2 43.0-75.0 %Lymphocytes Percent Auto14.620.5-60.0 %Monocytes Percent Auto10.21.7- 12.0 %Eosinophils Percent Auto0.90.9-7.0 %Basophils Percent Auto0.20.2-2.0 % Immature Granulocytes Pct Auto0.90.0-0.5 %Neutrophils Absolute Auto7.11.4-6.5 10 3/uLLymphocytes Absolute Auto1.41.2-3.8 10 3/uLMonocytes Absolute Auto1.00.3-0.8 10 3/uLEosinophils Absolute Auto0.10.0-0.7 10 3/uLBasophils Absolute Auto0.00.0- 0.1 10 3/uLImmature Granulocytes Abs Auto0.090.00-0.03 10 3/uLPerforming Lab:see noteML - [facility] LBPROF CHEM 8 (BAS METB) Reviewed date:05/12/2024 02:14:22 PM Interpretation: Performing Lab: Notes/Report: [facility] ,Tcxqmy722288-296 mmol/LPotassium3.83.5-5.1 mmol/NLygplaqp80728-864 mmol/LCarbon Qhgwwiz54.221.0-32.0 mmol/LAnion Gap15.6Tfqqmmi31047-227 mg/dLBlood Urea Oruvmjmf51.07.0-18.0 mg/dLCreatinine1.090.70-1.30 mg/dLEstimated GFR ( Cinthia>60>=60 mL/min/1.73m 2Estimated GFR (Non- Sabine>60>=60 mL/min/1.73m 2BUN Creatinine Ratio12.3Kultnyy1.08.5-10.1 mg/dLPerforming Lab:see noteML - [facility] (BAS METB) Reviewed date:05/11/2024 07:48:02 PM Interpretation: Performing Lab: Notes/Report: [facility] ,Mooihi378536-759 mmol/LPotassium4.03.5-5.1 mmol/BLpycrstl31513-006 mmol/LCarbon Xhoaxaj78.521.0-32.0 mmol/LAnion Gap13.2Lnalsgo99777-492 mg/dLBlood Urea Iydxhitr48.07.0-18.0 mg/dLCreatinine1.080.70-1.30 mg/dLEstimated GFR ( Cinthia>60>=60 mL/min/1.73m 2Estimated GFR (Non- Sabine>60>=60 mL/min/1.73m 2BUN Creatinine Ratio15.9Exksogr9.78.5-10.1 mg/dLPerforming Lab:see note - [facility] 8 (BAS METB) Reviewed date:05/11/2024 07:48:03 PM Interpretation: Performing Lab: Notes/Report: [facility] ,Hykfcs556898-982 mmol/LPotassium4.23.5-5.1 mmol/PTxeaknbc60901-962 mmol/LCarbon Edoowtu41.721.0-32.0 mmol/LAnion Gap14.9Gzvwgfi05478-842 mg/dLBlood Urea Nlzjzdoe54.07.0-18.0 mg/dLCreatinine1.030.70-1.30 mg/dLEstimated GFR ( Cinthia>60>=60 mL/min/1.73m 2Estimated GFR (Non- Sabine>60>=60 mL/min/1.73m 2BUN Creatinine Ratio15.7Eiffidp0.98.5-10.1 mg/dLPerforming Lab:see noteML - [facility] LBCBC AUTO DIFF Reviewed date:05/11/2024 07:48:03 PM Interpretation: Performing Lab: Notes/Report: [facility] ,White Blood Count13.94.0-11.0 10 3/uLRed Blood Count4.734.70-6.10 10 6/uL Xbqndfafho78.914.0-18.0 g/nKWkhbyclwvt53.542.0-54.0 %Mean Corpuscular Kvncha18.9 80.0-94.0 fLMean Corpuscular Wbmuxazqlz16.425.9-34.0 pgMean Corpuscular HGB Conc 32.729.9-35.2 g/dLRed Cell Distribution Width12.811.0-15.0 %Platelet Otuli200 150-450 10 3/uLMean Platelet Djrdhd18.89.5-13.5 fLNeutrophils Percent Auto92.9 43.0-75.0 %Lymphocytes Percent Auto4.920.5-60.0 %Monocytes Percent Auto1.71.7- 12.0 %Eosinophils Percent Auto0.00.9-7.0 %Basophils Percent Auto0.10.2-2.0 % Immature Granulocytes Pct Auto0.40.0-0.5 %Neutrophils Absolute Auto12.91.4-6.5 10 3/uLLymphocytes Absolute Auto0.71.2-3.8 10 3/uLMonocytes Absolute Auto0.20.3- 0.8 10 3/uLEosinophils Absolute Auto0.00.0-0.7 10 3/uLBasophils Absolute Auto0.0 0.0-0.1 10 3/uLImmature Granulocytes Abs Auto0.060.00-0.03 10 3/uLPerforming Lab:see noteML - [facility] LBLACTATE or LACTIC ACID Reviewed date:05/08/2024 09:48:13 AM Interpretation: Performing Lab: Notes/Report: [facility] ,Lactate/Lactic Acid2.30.4-2.0 mmol/LRESULTS CALLED TO DR COSTA/ERPerforming Lab: see noteML - [facility] LB Reason For Referral No Information Medications Medication SIG (Take, Route, Frequency, Duration) Notes Start Date End Date Status Albuterol Sulfate HFA 108 (9 0 Base) MCG/ACT 1-2 puff as needed Inhalation every 4 hr s; Duration: 30 days ActiveAsmanex HFA 100 MCG/ACT2 puffs in the evening Inhalation Once a dayActive Albuterol Sulfate (2.5 MG/3ML) 0.083%3 mL as needed Inhalation every 6 hrs; Duration: 30 daysActivePantoprazole Sodium 40 MG1 tablet Orally bidActiveOxygen -as directed dx asthma Daily at night; Duration: 30 days05/31/2016Active Nebulizer -Use as directed with albuterol DX: J45.5015Active Immunizations Vaccine Route Administration Date Status Comme nts Flu, (85576) -historic- Whole Unknown 03/20/2015 Admini stered Flu, (83737) -historic- UwtdaYfxfuge54/03/2025AdministeredFlu, Fluzone (35186) 6 mos+, single-dose syringe/vial (5216-7043)Omunlwy6203/16/2016AdministeredFlu, Fluzone (86227) 6 mos+, single-dose syringe/vial (2128-5646)Xparrby8604/02/2019 AdministeredFlu, KuswijvvxceUhqksdp02/28/2016AdministeredHep B, Adult, Dose 1 Jjjnssu9003/26/2007dministeredHep B, Adult, Dose 3Jcyvfaw13/30/dministered Hep B, Adult, Dose 6Ewrmujg14/29/2008AdministeredMeningococcal (Menomune)Unknown 03/26/2007dministeredPneumococcal (Pneumovax 23)Bcttwgz1712/14/2015Administered Pneumococcal (Pneumovax 23)Lfcljmi5911/10/2016AdministeredPneumococcal (Prevnar 13)Jhianfg1003/02/2016AdministeredTdap (Boostrix)Xfcxchw6304/14/2022dministeredTdap (Boostrix)Emdfvgo37/04/2024Administered Social History Tobacco Use: Social History Observation Description Date Details (start date - stop date) Former Smoker NA - NA Tobacco Use/Smoking Question Answer Notes Patient is a former smoker How long has it been since you last smoked?1-3 monthsAUDIT-C (Standard) Question Answer Notes Did you have a drink containing alcohol in the p ast year? No Chfcyu8WrehqwqzbceafhCmzrlukd Problems Problem Type SNOMED Code ICD Code Onset Dates Problem Status W/U Status Risk Notes Problem Malnutrition of mild degree (Hassan: 75% to less than 90% of standard weight) (58843296) Mild protein-calorie malnutrition (E44.1) ActiveconfirmedProblemCannabis abuse (75814120)Cannabis abuse, uncomplicated (F12.10)ActiveconfirmedProblemPrimary insomnia (5821748)Primary insomnia (F51.01)ActiveconfirmedProblemAcute exacerbation of bronchiectasis (756827728) Bronchiectasis with acute lower respiratory infection (J47.0)Activeconfirmed ProblemAcute exacerbation of bronchiectasis (417526517)Bronchiectasis with (acute) exacerbation (J47.1)ActiveconfirmedProblemChronic respiratory failure (52727263)Chronic respiratory failure with hypoxia (J96.11)Activeconfirmed HwuhpphMhicz-if-fhxyvxu hypoxemic respiratory failure (56009868618139927)Acute and chronic respiratory failure with hypoxia (J96.21)ActiveconfirmedProblemPain of right shoulder region (finding) (9298788105)Pain in right shoulder (M25.511) 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 (125891202)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 confirmedProblemShortness of breath (280220728)Shortness of breath (R06.02) ActiveconfirmedProblemAsthma (879709599)Asthma (J45.909)ActiveconfirmedProblem COPD - Chronic obstructive pulmonary disease (29095296)COPD (chronic obstructive pulmonary disease) (J44.9)ActiveconfirmedProblemGastroesophageal reflux disease (582135662)GERD (gastroesophageal reflux disease) (K21.9)ActiveconfirmedProblem Anxiety (47468315)Anxiety (F41.9)ActiveconfirmedProblemPneumonia (776717349) Pneumonia (J18.9)ActiveconfirmedProblemDepression (361361175)Depression (F32.9) ActiveconfirmedProblemDyspnea (819371479)Dyspnea (R06.00)ActiveconfirmedProblem Insomnia (213027957)Insomnia (G47.00)ActiveconfirmedProblemCannabis abuse (61917182)Marijuana abuse (F12.10)ActiveconfirmedProblemIrritable bowel syndrome (67248640)IBS (irritable bowel syndrome) (K58.9)ActiveconfirmedProblem Generalized anxiety disorder (88946115)SHAWNEE (generalized anxiety disorder) (F41.1)ActiveconfirmedProblemBronchitis (82763923)Bronchitis (J40)Active confirmedProblemExacerbation of asthma (335590859)Asthma exacerbation (J45.901) ActiveconfirmedProblemGastroesophageal reflux disease with esophagitis (785696799)Gastroesophageal reflux disease with esophagitis (K21.0)Active confirmedProblemAcute exacerbation of chronic obstructive airways disease (558812504)COPD exacerbation (J44.1)ActiveconfirmedProblemHome oxygen therapy (710555174)On home oxygen therapy (Z99.81)ActiveconfirmedProblemBronchiectasis (39009925)Bronchiectasis (J47.9)ActiveconfirmedProblemMixed anxiety and depressive disorder (685515712)Depression with anxiety (F41.8)Activeconfirmed ProblemUncomplicated severe persistent asthma (119383936)Uncomplicated severe persistent asthma (J45.50)ActiveconfirmedProblemChronic hypoxemic respiratory failure (535787198)Chronic hypoxemic respiratory failure (J96.11)Activeconfirmed ProblemAspiration pneumonitis (601177280)Aspiration pneumonitis (J69.0)Active confirmedProblemExacerbation of asthma (013337268)Acute asthma exacerbation (J45.901)ActiveconfirmedProblemAcute exacerbation of bronchiectasis (236283406) Bronchiectasis with acute exacerbation (J47.1)ActiveconfirmedProblemPanic attack (695895414)Panic attack (F41.0)ActiveconfirmedProblemGastro-esophageal reflux disease (172562278)Gastro-esophageal reflux disease (K21.9)Activeconfirmed ProblemAcute exacerbation of bronchiectasis (710284674)Acute exacerbation of bronchiectasis (J47.1)ActiveconfirmedProblemLeukocytosis (814248892)Elevated WBCs (D72.829)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)ActiveconfirmedProblemMixed anxiety and depressive disorder (464205290) Anxiety and depression (F41.8)ActiveconfirmedProblemNondependent alcohol abuse in remission (287049140)Alcohol abuse, in remission (F10.11)Activeconfirmed ProblemMalnutrition of mild degree (Hassan: 75% to less than 90% of standard weight) (64444713)Mild protein malnutrition (E44.1)ActiveconfirmedProblemOpioid dependence in remission (097296227)Narcotic dependence, in remission (F11.21) ActiveconfirmedProblemPatient's noncompliance with dietary regimen for other reason (Z91.118)ActiveconfirmedProblemNoncompliance with treatment (finding) (2910179)Noncompliance with treatment plan (Z91.199)Activeconfirmed Vital Signs Temperature 97.4 degrees Fahrenheit 03/03/2025 Htfiskcm12 %04/13/2025lood pressure mm Hg04/13/20250268Sqqpqy69.75 in 04/13/2025lood pressure mm Hg04/13/20258568Uiznli247.2 lbs106/13/2024MI 23.07 kg/m204/13/2025 Encounters Encounter Location Date Provider Diagnosis [facility] [address] [place] [address] 12/31/2024 Neetu Barboza Anxiety F41.9 [facility] [address] [place] [address] 02/16/2025 Neetu Barboza Wellness examination Z00.00 [facility] [address] [place] [address] 03/03/2025 Neetu Barboza [facility] [place] [address] 03/04/2025Pamela CramerBronchiectasis with acute exacerbation J47.[address]BJam[address] [facility] [place] [address]/ [place] CraMad[address] [place] [address] [place] [address]/P[facility] [facility] [address]/[facility] [address] [place] [address]/Pamela CramerPneumonia J18.9BJam[address] [place] [address] 01/23/2025Pamela CramerChronic hypoxemic respiratory failure J96.11 [address] [place] [address]/Pamela CramerChronic respiratory failure with hypoxia J96.[address] [address] 07/08/2024Pamela CramerContusion of ribs S20.219A and H/O fall Z91.[address] [address]/11/2024 Neetu CramerBronchiectasis with acute exacerbation J47.1 Assessments Encounter Date Diagnosis (ICD Code) Assessment Notes Treatment Notes Treatment Clinical Notes Section Notes 07/08/2024 Contusion of ribs (ICD-10 - S20. 219A) ok for OWN two ER visits reviewed pain with movement needs rest, nsaids 07/08/2024H/O fall (ICD-10 - Z91.81)08/18/2024hronic respiratory failure with hypoxia (ICD-10 - J96.11) feeling better from last hospital visit continue inhalers, fu pulm has CT lungs this week stop smoking encouraged 5Chronic hypoxemic respiratory failure (ICD-10 - J96.11) [facility] is considering filing disability 01/23/2025Insomnia (ICD-10 - G47.00)03/03/2025ronchiectasis with acute exacerbation (ICD-10 - J47.1) continue discharge meds monitor pulse ox if worsens needs [facility] karyna no smoking 04/13/2025Pneumonia (ICD-10 - J18.9) some improvement finish doxy, add oral prednisone fu as needed 12/31/2024nxiety (ICD-10 - F41.9)02/16/2025Wellness examination (ICD-10 - [...] LIPID PROFILE 02/16/2025 THYROID PANEL (T4/TSH/FREE T3) 5 Next Appt Details Provider Name:Neetu nickerson, 06/04/2025 01:00:00 PM, [address] [place], [address], Insurance Providers Payer Name Payer Address Payer Phone Subscriber Number Group Number Insured Name Patient Relationship to Insured Coverage Start Date Coverage End Date [employer] MEDICARE [address] [address] [place] [address] [id number] Luis Solomon Self - patient is the insured 4 4 [employer] MEDICARE ADV PLAN [address] [place] [address] [id number] Luis Solomon Self - patient is the insured 5 MEDICAID [place] [address] [place], [place] [id number] [id number], [place] - patient is the [id number] 2011 Medical (General) History Medical History History [...] face TEF at birthHospitalization History Reason Date(Month/Year) Resp issues 03/21 ABD Pain - [place] another stay for Pneumo martha 11/2024 Pneumonia 2024 Pneumonia 2023 multiple times for resp issues
[2025-04-19] MEDS: KETOROLAC TROMETHAMINE 30 MG/ML VIAL IVP (09:53)
[2025-04-19] MEDS: 0.9 % SODIUM CHLORIDE 1,000 ML 1000 ML IV (09:53)
[2025-04-19 10:08] LABS: Glucose Urine UA NEGATIVE (NEGATIVE)
[2025-04-19 10:10] LABS: Alanine Aminotransferase 20 U/L (16-63); Albumin Globulin Ratio 1.2; Albumin Level 3.8 g/dL (3.4-5.0); Alkaline Phosphatase 102 U/L (46-116); Anion Gap 8.9; Aspartate Amino Transferase 15 U/L (15-37); Blood Urea Nitrogen 9.0 mg/dL (7.0-18.0); Calcium 8.8 mg/dL (8.5-10.1); Carbon Dioxide 28.2 mmol/L (21.0-32.0); Chloride 107 mmol/L (98-107); Estimated GFR (African America >60 (>=60 mL/min/1.73m^2); Estimated GFR (Non-African Ame >60 (>=60 mL/min/1.73m^2); Globulin 3.2 g/dL; Glucose 96 mg/dL (74-106); Potassium 4.1 mmol/L (3.5-5.1); Sodium 140 mmol/L (136-145); Total Protein 7.0 g/dL (6.4-8.2)
--- NOTE | 2025-04-19 10:12 | CT_ITS ---
The [address] [address] Patient Name: FRANCIS GALVEZ MRN: [id number] date: 1990 Sex: M Assigned Patient Location: ER Current Patient Location: ER Accession/Order Number: [id number] Exam Date: 04/19/2025 11:00 Report Date: 04/19/2025 11:42 At the request of: KYLIE COSTA MD Procedure: CT abdomen pelvis wo con CT ABDOMEN AND PELVIS WITHOUT INTRAVENOUS CONTRAST: CLINICAL HISTORY: Right lower quadrant pain since this morning. COMPARISON: CT abdomen and pelvis 02/24/2025 TECHNIQUE: Spiral images were obtained through the abdomen and pelvis without intravenous contrast. This CT exam was performed using one or more following dose reduction techniques: Automated exposure control, adjustment of the mA and/or kV according to patient size, or use of iterative reconstruction technique. FINDINGS: Lung Bases: [Bronchiectasis involving the lung bases with surrounding consolidation similar to the prior study.] Organs:Suboptimal evaluation due to lack of IV contrast. Liver gallbladder spleen pancreas adrenal glands kidneys and aorta all appear unremarkable.[ GI: Stomach demonstrates postoperative changes. Small hiatal hernia. Distal mildly dilated fluid-filled small bowel loops are identified transition point appears be within the pelvis.[No acute colonic abnormality is seen. Pelvis:[Urinary bladder and prostate gland appear unremarkable.] Peritoneum/Retroperitoneum:No free air or free fluid or lymphadenopathy.[ Abd wall/Bones:Abdominal wall demonstrates no acute findings. Osseous structures demonstrate degenerative change.[ CT/CT abdomen pelvis wo con IMPRESSION: Mildly dilated fluid-filled distal small bowel loops with transition point likely within the pelvis. Developing small bowel obstruction cannot BE excluded. Bronchiectasis with surrounding consolidation involving the lung bases grossly similar to the prior study. Impression dictated by: Robert Brennan Jr., D.O. 04/19/2025 11:42 AM Dictation Location: [facility]ITALMoodsnap Electronically authenticated by: [id number] Y Date: 04/19/2025 11:42
[2025-04-19] MEDS: MORPHINE SULFATE 4 MG/ML VIAL IV (12:18)
[2025-04-19 12:26] VITALS: BP 115/68; PULSE 83; O2SAT 95
--- NOTE | 2025-04-19 13:22 | ED.ABDPAIN1 ---
HPI - Abdominal Pain General Chief Complaint: Abdominal Pain Stated Complaint: ABDOMINAL PAIN Time Seen by Provider: 04/19/25 09:23 Source: patient Mode of arrival: Wheelchair History of Present Illness HPI narrative: The patient is a 34-year-old male presents to the ER with progressively getting worse pain in the lower abdomen over the last 24 hours, the patient pain is more in the lower abdomen associated with nausea no vomiting his last meal was yesterday, and he had a small bowel movement that is not constipated this morning Patient have no history of any abdominal surgery but he mentioned that he when he was younger he had bronchiectasis when he was a kid and he had PEG tube at that time Related Data Home Medications ?Medication ?Instructions ?Recorded ?Confirmed trazodone 50 mg tablet 50 mg PO BEDTIME PRN sleep 09/13/23 04/19/25 dexlansoprazole 60 mg 60 mg PO DAILY 04/19/25 04/19/25 capsule,biphase delayed release Previous Rx's ?Medication ?Instructions ?Recorded albuterol sulfate 2.5 mg/3 mL 2.5 mg (3 mL) inhalation Q6H PRN 05/25/23 (0.083 %) solution for nebulization shortness of breath or wheezing #75 mL albuterol sulfate 90 mcg/actuation 1 inh inhalation Q4H PRN shortness 03/22/24 aerosol inhaler of breath or wheezing #8.5 grams doxycycline hyclate 100 mg tablet 100 mg PO BID 7 days #14 tabs 04/09/25 ibuprofen 600 mg tablet 600 mg PO Q8H PRN pain #20 tabs 04/09/25 Allergies Allergy/AdvReac Type Severity Reaction Status Date / Time Penicillins Allergy Intermediate Hives Verified 04/19/25 09:14 Review of Systems ROS Status of ROS 10 or more systems reviewed and unremarkable except as noted in history and below [facility] Medical History (Updated 04/19/25 @ 13:23 by Comfort Stewart MD) Bronchiectasis ?J47.9 - Bronchiectasis, uncomplicated (ICD-10) Healthcare-associated pneumonia ?J18.9 - Pneumonia, unspecified organism (ICD-10) Asthma exacerbation ?J45.901 - Unspecified asthma with (acute) exacerbation (ICD-10) Hypoxemia ?R09.02 - Hypoxemia (ICD-10) Multifocal pneumonia ?J18.9 - Pneumonia, unspecified organism (ICD-10) Respiratory failure ?J96.90 - Respiratory failure, unspecified, unspecified whether with hypoxia or hypercapnia (ICD-10) Constipation ?K59.00 - Constipation, unspecified (ICD-10) Nausea and vomiting ?R11.2 - Nausea with vomiting, unspecified (ICD-10) Tobacco abuse ?Z72.0 - Tobacco use (ICD-10) Acute hypoxic respiratory failure ?J96.01 - Acute respiratory failure with hypoxia (ICD-10) Insomnia ?G47.00 - Insomnia, unspecified (ICD-10) Hypernatremia ?E87.0 - Hyperosmolality and hypernatremia (ICD-10) Right lower lobe pneumonia ?J18.9 - Pneumonia, unspecified organism (ICD-10) Lactic acidosis ?E87.20 - Acidosis, unspecified (ICD-10) Chronic hypoxic respiratory failure, on home oxygen therapy ?J96.11 - Chronic respiratory failure with hypoxia (ICD-10) ?Z99.81 - Dependence on supplemental oxygen (ICD-10) Asthma exacerbation ?J45.901 - Unspecified asthma with (acute) exacerbation (ICD-10) Upper respiratory infection ?J06.9 - Acute upper respiratory infection, unspecified (ICD-10) Esophagitis with gastritis ?K29.70 - Gastritis, unspecified, without bleeding (ICD-10) ?K20.90 - Esophagitis, unspecified without bleeding (ICD-10) Leukocytosis ?D72.829 - Elevated white blood cell count, unspecified (ICD-10) Dyspnea ?R06.00 - Dyspnea, unspecified (ICD-10) Hypoxia ?R09.02 - Hypoxemia (ICD-10) Depression with anxiety ?F41.8 - Other specified anxiety disorders (ICD-10) Steroid-induced hyperglycemia ?R73.9 - Hyperglycemia, unspecified (ICD-10) ?T38.0X5A - Adverse effect of glucocorticoids and synthetic analogues, initial encounter (ICD-10) Hyponatremia ?E87.1 - Hypo-osmolality and hyponatremia (ICD-10) Chest wall pain ?R07.89 - Other chest pain (ICD-10) Pneumonia ?J18.9 - Pneumonia, unspecified organism (ICD-10) Malnutrition of moderate degree ?E44.0 - Moderate protein-calorie malnutrition (ICD-10) Depression ?F32.A - Depression, unspecified (ICD-10) Bronchiectasis ?J47.9 - Bronchiectasis, uncomplicated (ICD-10) Upper respiratory infection ?J06.9 - Acute upper respiratory infection, unspecified (ICD-10) Acute hypokalemia ?E87.6 - Hypokalemia (ICD-10) Avulsion of skin ?T14.8XXA - Other injury of unspecified body region, initial encounter (ICD-10) Influenza ?J11.1 - Influenza due to unidentified influenza virus with other respiratory manifestations (ICD-10) Marijuana abuse ?F12.10 - Cannabis abuse, uncomplicated (ICD-10) Coronavirus infection ?B34.2 - Coronavirus infection, unspecified (ICD-10) Pneumonia ?J18.9 - Pneumonia, unspecified organism (ICD-10) Hospital-acquired bacterial pneumonia ?J15.9 - Unspecified bacterial pneumonia (ICD-10) COVID-19 ?U07.1 - COVID-19 (ICD-10) GERD (gastroesophageal reflux disease) ?K21.9 - Gastro-esophageal reflux disease without esophagitis (ICD-10) 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 - Pyothorax with fistula (ICD-10) Shortness of breath ?R06.02 - Shortness of breath (ICD-10) Chronic dyspnea ?R06.09 - Other forms of dyspnea (ICD-10) Viral infection ?B34.9 - Viral infection, unspecified (ICD-10) Hypoxia ?R09.02 - Hypoxemia (ICD-10) Acute asthma exacerbation ?J45.901 - Unspecified asthma with (acute) exacerbation (ICD-10) Bronchitis ?J40 - Bronchitis, not specified as acute or chronic (ICD-10) History of home oxygen therapy ?Z99.81 - Dependence on supplemental oxygen (ICD-10) Oxygen desaturation during sleep ?G47.34 - 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) History of gastrostomy tube placement Abdominal pain, acute ?R10.9 - Unspecified abdominal pain (ICD-10) Surgical History History of fundoplication ?Z98.890 - Other specified postprocedural states (ICD-10) History of appendectomy ?Z90.49 - Acquired absence of other specified parts of digestive tract (ICD-10) H/O chest tube placement ?Z98.890 - Other specified postprocedural states (ICD-10) History of facial surgery ?Z98.890 - Other specified postprocedural states (ICD-10) Family History Mother Family history of diabetes mellitus Family history of hypertension Grandmother Family history of diabetes mellitus Grandfather Family history of myocardial infarction Social History Within the past year, how often did you have a drink containing alcohol: monthly or less Within the past year, how many standard drinks containing alcohol did you have on a typical day: 1 or 2 Within the past year, how often did you have six or more drinks on one occasion: less than monthly Total score: 1 Score interpretation: A score less than 4 is consistent with normal alcohol consumption. 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 [employer] Known occupational exposures/hazards: No Highest level of school completed/degree received: high school graduate Are you now , , , , never or living with a partner: In a typical week, how many times do you talk on the telephone with family, friends, or neighbors: 3 or more times per week How often do you get together with friends or relatives: once per week How often do you attend jewish or anabaptism services: never Do you belong to any clubs or organizations such as jewish groups unions, fraternal or athletic groups, or school groups: no Total score: 1 Score interpretation: A score of less than or equal to 1 indicates the most socially isolated. Little interest or pleasure in doing things: not at all Feeling down, depressed, or hopeless: not at all Feel stressed/tense/nervous/anxious/difficulty sleeping: not at all Do you think of yourself as: straight/heterosexual Gender Identity: male Exam Narrative Exam Narrative: Nurses notes and vital signs reviewed and patient is not hypoxic. General: Well-appearing and in no apparent distress. Skin: Warm, dry, no pallor noted. No rash. Head: Normocephalic, atraumatic. Neck: Supple, non-tender. Cardiovascular: Regular Rate and Rhythm without murmur, gallop or rub. Respiratory: No accessory muscle use or respiratory distress. Lungs are clear to auscultation, no wheezing, rales or rhonchi Chest Wall: no tenderness Back: No midline thoracic or lumbar vertebral tenderness. No CVA tenderness Musculoskeletal: normal ROM, no calf or popliteal tenderness, no lower extremity edema/swelling GI: Abdomen is soft, mildly distended in the lower abdomen to tenderness in the lower half of the abdomen mostly with no guarding Neurological: A&O x4. No cranial nerve dysfunction observed. No truncal ataxia. Constitutional Vital Signs, click to edit/add: Last Vital Signs Temp 97.7 F 04/19/25 09:16 Pulse 83 04/19/25 12:26 Resp 16 04/19/25 12:26 BP 115/68 04/19/25 12:26 Pulse Ox 95 04/19/25 12:26 O2 Del Method Room Air 04/19/25 12:26 Course Vital Signs Vital signs: Vital Signs Temperature 97.7 F 04/19/25 09:16 Pulse Rate 75 04/19/25 09:16 Respiratory Rate 18 04/19/25 09:16 Blood Pressure 96/83 04/19/25 09:16 Pulse Oximetry 97 04/19/25 09:16 Oxygen Delivery Method Room Air 04/19/25 09:16 Temperature 97.7 F 04/19/25 09:16 Pulse Rate 83 04/19/25 12:26 Respiratory Rate 16 04/19/25 12:26 Blood Pressure 115/68 04/19/25 12:26 Pulse Oximetry 95 04/19/25 12:26 Oxygen Delivery Method Room Air 04/19/25 12:26 MDM - Abdominal Pain MDM Narrative Medical decision making narrative: The patient CBC and chemistry showed no acute significant pathology CT abdomen pelvis without contrast shows a concern for developing small bowel obstruction with a transition point at the pelvis The patient had an NG tube placed and is n.p.o. right now He was provided initially with Toradol for pain then morphine for pain The patient case was discussed with Dr. Daly and general surgery in [facility] and he agreed to admit the patient as long as he will be admitted under hospitalist. The patient case was discussed with Dr. Fuentes and he agreed to admit the patient Lab Data Labs: Lab Results 04/19/25 04/19/25 Range/Units 09:38 09:59 WBC 9.2 (4.0-11.0) 10^3/uL RBC 5.24 (4.70-6.10) 10^6/uL Hgb 15.3 (14.0-18.0) g/dL Hct 44.4 (42.0-54.0) % MCV 84.7 (80.0-94.0) fL MCH 29.2 (25.9-34.0) pg MCHC 34.5 (29.9-35.2) g/dL RDW 13.0 (11.0-15.0) % Plt Count 275 (150-450) 10^3/uL MPV 10.8 (9.5-13.5) fL Neut % (Auto) 72.1 (43.0-75.0) % Lymph % (Auto) 16.6 L (20.5-60.0) % [place] % (Auto) 8.4 (1.7-12.0) % Eos % (Auto) 1.4 (0.9-7.0) % Baso % (Auto) 1.2 (0.2-2.0) % Neut # (Auto) 6.6 H (1.4-6.5) 10^3/uL Lymph # (Auto) 1.5 (1.2-3.8) 10^3/uL [place] # (Auto) 0.8 (0.3-0.8) 10^3/uL Eos # (Auto) 0.1 (0.0-0.7) 10^3/uL Baso # (Auto) 0.1 (0.0-0.1) 10^3/uL Abs Immat Gran (auto) 0.03 (0.00-0.03) 10^3/uL Imm/Tot Granulo (auto) 0.3 (0.0-0.5) % Sodium 140 (136-145) mmol/L Potassium 4.1 (3.5-5.1) mmol/L Chloride 107 (98-107) mmol/L Carbon Dioxide 28.2 (21.0-32.0) mmol/L Anion Gap 8.9 BUN 9.0 (7.0-18.0) mg/dL Creatinine 0.86 (0.70-1.30) mg/dL Est GFR ( Amer) >60 (>=60 mL/min/1.73m^2) Est GFR (Non-Af Amer) >60 (>=60 mL/min/1.73m^2) BUN/Creatinine Ratio 10.5 Glucose 96 (74-106) mg/dL Calcium 8.8 (8.5-10.1) mg/dL Total Bilirubin 0.8 (0.2-1.0) mg/dL AST 15 (15-37) U/L ALT 20 (16-63) U/L Alkaline Phosphatase 102 (46-116) U/L Total Protein 7.0 (6.4-8.2) g/dL Albumin 3.8 (3.4-5.0) g/dL Globulin 3.2 g/dL Albumin/Globulin Ratio 1.2 Urine Color Lt. yellow (YELLOW) Urine Clarity Clear (CLEAR) Urine pH 5.5 (5.0-9.0) Ur Specific [place] 1.025 (1.005-1.025) Urine Protein Negative (NEG/TRACE) mg/dL Urine Glucose (UA) Negative (NEGATIVE) mg/dL Urine Ketones Negative (NEGATIVE) mg/dL Urine Occult Blood Negative (NEGATIVE) Urine Nitrite Negative (NEGATIVE) Urine Bilirubin Negative (NEGATIVE) Urine Urobilinogen 0.2 (0.2-1.0) EU/dL Ur Leukocyte Esterase Negative (NEGATIVE) Discharge Plan Discharge Chief Complaint: Abdominal Pain Clinical Impression: SBO (small bowel obstruction) Patient Disposition: [facility] Time of Disposition Decision: 13:22 Discharge location: [facility] Condition: Good
--- NOTE | 2025-04-19 13:39 | XR_ITS ---
The [address] [address] Patient Name: FRANCIS GALVEZ MRN: [id number] date: 1990 Sex: M Assigned Patient Location: ER Current Patient Location: ER Accession/Order Number: [id number] Exam Date: 04/19/2025 13:50 Report Date: 04/19/2025 14:17 At the request of: KYLIE COSTA MD Procedure: XR chest 1V Single view chest: CLINICAL HISTORY: NG placement verification COMPARISON: None FINDINGS: NG tube tip within the stomach. No free air. XR/XR chest 1V IMPRESSION: NG TUBE TIP WITHIN THE STOMACH. NO FREE AIR. Impression dictated by: Robert Brennan Jr., D.OAmber 04/19/2025 2:17 PM Dictation Location: [place] [address] Electronically authenticated by: [id number] Y Date: 04/19/2025 14:17
== END 2025-04-19 14:51 | disposition short-term general hospital (02) ==
PROVIDERS: Emergency Provider Emergency Medicine; PCP Nurse Practitioner Family
DX: K56.609 Unspecified intestinal obstruction, unspecified as to partial versus complete obstruction (principal); Z87.891 Personal history of nicotine dependence
CPT/HCPCS: 36415; 71045; 74176; 80053; 81003; 85025; 96374; 96375; 99285; J1885; J2270

== ENCOUNTER 2025-04-27 13:45 | Emergency (ER) | payer MEDICARE, MEDICAID, SELFPAY ==
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
--- OUTSIDE RECORDS SUMMARY | 2024-08-04 05:30 | XMS_ITS ---
Author Organization The [facility] in [place] Address [address] [place] [address] Care Team Providers Care Cytologist Name Role Phone Neetu Del Toro Primary Care Provider REASON FOR VISIT fever body chills Encounters Encounter Location Date Provider Diagnosis [facility] [address] [place] [phone] 08/04/2024 Neetu Del Toro Plan Of Treatment Next Appt Details Provider Name:Neetu nickerson, 06/04/2025 01:00:00 PM, [address] [place], [address], Progress Notes * Luis GALVEZ TDOB:1990 (34 yo M)Acc No.[id number]:08/04/2024 UNLOCKED PROGRESS NOTE Progress Note Patient: Luis VALENZUELA :?Neetu Del Toro ([facility]), CNPDOB:1990 ???Age:33 Y???Sex:MaleDate:08/04/2024Phone:[phone]:[address] [place] [phone] Subjective: * Chief Complaints: * 1 . Fever body chills. * Medical History: Objective: * Vitals: Assessment: Plan: * Treatment: * * Electronic signature of Neetu Del Toro NP, FIELD SERVICE MANAGER.MECHANICAL SOUND [id number] on 04/27/2025 at 01:56 PM ESTSign off status: PendingVisit Status:?CANC (Cancelled) * Provider: Bruce Del Toro ([facility]), MECHANICAL SOUND TECHNICIAN Date: 0 08/04/2024 Generated for Printing/Faxing/eTransmitting on:?04/27/2025 01:56 PM EST
--- OUTSIDE RECORDS SUMMARY | 2024-09-09 04:32 | XMS_ITS | Continuity of Care Document ---
Demographics Address [address] [facility] [address] [place] [address] Home Phone Preferred Language en Marital Status Unknown Mormonism Affiliation Unknown Race Unknown Additional Race(s) Other Race Ethnic Group Unknown Author Organization [facility] Address [address] [place] [address] Phone Care Team Providers Care Establishment Guide Name Role Phone Rani Polanco Unavailable Unavailable [...] - Active Procedures Procedure Date Acute Detox Pulper ROUTINE VENIPUNCTURE DRUG TEST PRSMV DIR OPT OBS Bitewings-two Films Intraoral-periapical 1st Film [id number] Additional Aug Oral Hygiene Instruction Oral Hygiene Instruction Limited Oral Eval Extract; Erupted Th/exposted Rt -2 025 Acute Detox Pulper Acute Detox Pulper Acute Detox Pulper Acute Detox Pulper Acute Detox Pulper ASSAY OF BREATH ETHANOL COVID-19 Antigen Test DRUG TEST PRSMV DIR OPT OBS Acute Detox Pulper Advance Directives Directive Yes / No Effective Date File Name No Information Encounters Encounter Description Practice Location Reason(s) For Visit Diagnoses Date Provider Providers Copied on Encounter [facility], [address] [place] [address], [id number] , [place] tel: [phone] [facility] Detox No Information 5 Klidas Rani. [address] [place] [address], [id number] , [place]. tel: [phone] [facility], [address] [place] [address], [id number] , [place] tel: [phone] [facility] Clinic dental ER (chief complaint) Encounter for screening for dental disorders 5 Markus Blackman. . tel: [phone] [facility], [address] [place] [address], [id number] , [place] tel: [phone] [facility] Detox No Information 5 Klidas Rani. [address] [place] [address], [id number] , [place]. tel: [phone] [facility], [address] [place] [address], [id number] , [place] tel: [phone] [facility] Detox No Information 5 Klidas Rani. [address] [place] [address], [id number] , [place]. tel: [phone] [facility], [address] [place] [address], [id number] , [place] tel: [phone] [facility] Detox No Information 5 Tyler Thompson. [address] [place] [address], [id number], [place]. tel: [phone] [facility], [address] [place] [address], [id number] , tel:+ [phone] [facility] Detox Alcohol dependence with withdrawal, uncomplicatedBronchie ctasisTobacco use disorder, moderate Mar-2 3-202 3 Klidas Rani. [address] [place], [place], [id number] , [place]. tel:+ [phone] [facility], [address] [place] [address], [id number] , [place] tel:+ [phone] [facility] Detox substance abuse (chief complaint) Alcohol dependence with withdrawal, uncomplicatedBronchie ctasisTobacco use disorder, moderate Mar-2 2-202 3 Klidas Rani. [address] [place] [address], [id number] , [place]. tel: [phone] [facility], [address] [place] [address], [id number] , tel: [phone] [facility] Detox Alcohol dependence with withdrawal, uncomplicatedBronchie ctasisTobacco use disorder, moderate Mar-2 2-202 3 Klidas Rani. [address] [place], [place], [id number] , [place]. tel: [phone] [facility], [address] [place] [address], [id number] , tel: [phone] [facility] Detox Alcohol dependence with withdrawal, uncomplicatedEncounte r For Screening For Covid-19 Jul- 3 Klidas Rani. [address] [place] [address], [id number] , [place]. tel:+ [phone] Family History Family Member Type Diagnosis Age [...] Of Treatment Date Type Action Status Goal RLP. Due on due Goal Tdap Vaccine. Due on 2024 due Goal Influenza vaccine. Due on Ap due Goal Depression screening. Due on due Goal Tdap. Due on due Goal Hepatitis C screening. Due o n due Goal Unhealthy drug use screening . Due on due Goal PRAPARE ASSESSMENT. Due on A due Goal Influenza vaccine. Due on Or due Goal Tdap Vaccine. Due on 2022 due Goal PRAPARE ASSESSMENT. Due on M due Goal Depression screening. Due on due Goal Tdap. Due on due Goal RLP. Due on due Goal Influenza vaccine. Due on Or due Goal Depression screening. Due on due Goal Tdap Vaccine. Due on 2022 due Goal PRAPARE ASSESSMENT. Due on due Goal Tdap. Due on due Goal RLP. Due on due Goal Depression screening. Due on due Goal Tdap Vaccine. Due on 2022 due Goal Tdap. Due on due Goal RLP. Due on due Goal Influenza vaccine. Due on due Goal PRAPARE ASSESSMENT. Due [...] bronchiectasis, Anxiety and Depression. Pt was at [facility] ER for Alcohol withdraw [...]
--- OUTSIDE RECORDS SUMMARY | 2025-02-27 08:30 | XMS_ITS ---
Author Organization [facility] in [place] Address [address] [place] [address] Care Team Providers Care Associate Professor Physician Name Role Phone Neetu Del Toro Primary Care Provider [phone] REASON FOR VISIT 1 mo f/u Encounters Encounter Location Date Provider Diagnosis [facility] [address] [place] [phone] 02/27/2025 Neetu Del Toro Plan Of Treatment Next Appt Details Provider Name:Neetu nickerson, 06/04/2025 01:00:00 PM, [address] [place], [phone], Progress Notes * Luis GALVEZ TDOB:1990 (34 yo M)Acc No.[id number]:02/27/2025 UNLOCKED PROGRESS NOTE Progress Note Patient: Luis VALENZUELA :?Neetu Del Toro ([facility]), CNPDOB:1990 ???Age:34 Y???Sex:MaleDate:02/27/2025Phone:[phone]:[address] [place] [phone] Subjective: * Chief Complaints: * 1 . 1 mo f/u. * Medical History: Objective: * Vitals: Assessment: Plan: * Treatment: * * Electronic signature of Neetu Del Toro NP, [email or web address] on 04/27/2025 at 01:59 PM ESTSign off status: PendingVisit Status:?N/S N/C (No Show/No Charge) * Provider: Bruce Del Toro ([facility]), DISPATCH COORDINATOR Date: Generated for Printing/Faxing/eTransmitting on:?04/27/2025 01:59 PM EST
--- OUTSIDE RECORDS SUMMARY | 2025-04-07 08:45 | XMS_ITS ---
Author Organization [facility] Address [address] [place] [address] Care Team Providers Care [employer] Pilot Name Role Phone Dr. Robert Lang Primary Care Provider Daphne Yu Unavailable [phone] REASON FOR VISIT TOOTH SMOOTHED OUT Encounters Encounter Location Date Provider Diagnosis [facility] [address] [place] [address] 04/07/2025 Daphne Yu Plan Of Treatment Next Appt Details Provider Name:Veronique Yi, 09/2024 11:00:00 AM, [address], [place], [address], Provider Name:Veronique Elizabeth, 04/2025 11:15:00 AM, [address], [place], [address], Provider Name:Zee New , 10/02/2025 02:00:00 PM, [address], [place], [address], Progress Notes * FRANCIS GALVEZ TDOB:1990 (34 yo M)Acc No.[id number]:04/07/2025 Patient:?FRANCIS GALVEZ :?Daphne YuDOB:1990???Age:34 Y???Sex:Male Date:04/07/2025Phone:[phone]:[address], [address], [place], [phone]:Dr. Robert Lang Subjective: * Chief Complaints: * T OOTH SMOOTHED OUT Billing Information: * Procedure Codes: * Electronic signature of Daphne Yu DMD on 04/27/2025 at 01:56 PM ESTSign off status: Pending * Provider: Chelsie Yu Date: 1 06/07/2024 Generated for Printing/Faxing/eTransmitting on:?04/27/2025 01:56 PM EST
--- OUTSIDE RECORDS SUMMARY | 2025-04-21 10:09 | XMS_ITS | Continuity of Care Document ---
Author Organization [facility] Address [address] [place] [address] Phone Care Team Providers Care Vba Programmer Name Role Phone Neetu Del Toro NP-C Primary Care Provider Nando Fuller MD Attending Provider Liam Ricci DO Admit Provider Mark Gallardo DO Other Provider Jerzy Daly MD Other Provider Kodak Weber DO Other Provider Parth Wong MD Attending Provider Care Teams Patient Care Team Team Status: Active Member Role/Relationship Status Dates Neetu Del Toro NP-C Primary Care Provider Active Visit Care Team Team Status: Inactive Member Role/Relationship Status Dates Neetu Del Toro NP-C Primary Care Provider Active Start: April 09, 2025 End: April 09Ken Landeros ProviderActive Start: April 09, 2025 End: April 09, 2025 Visit Care Team Team Status: Inactive Member Role/Relationship Status Dates Neetu Del Toro NP-C Primary Care Provider Active Start: April 19, 2025 End: April 21, 2025Michaedori Ricci DOAdmsarah ProviderActiveStart: April 19, 2025 End: April 21, 2025Pipe Rueda ProviderActiveStart: April 19, 2025 End: April 21Zohra Langley ProviderActiveStart: April 19, 2025 End: April 21, 2025Pipe Gaxiola ProviderActiveStart: April 19, 2025 End: April 21, 2025Nikitadenise Hernandez Judith MDAttending ProviderActiveStart: April 19, 2025 End: April 21, 2025 Chief Complaint and Reason for Visit Chief Complaint Admit Date 6 mo f/u Bronchiectasis April 09, 2 025 8:59am small bowel obstruction. April 19, 2025 3:35pm Reason for Visit Admit Date Allergic rhinitis April 09, 2025 8:59am Bronchiectasis April 09, 2025 8:59am Cigarette nicotine dependence in [facility] on April 09, 2025 8:59am Marijuana abuse April 09, 2025 8:59am Moderate persistent asthma, uncomplicate d April 09, 2025 8:59am Gastroesophageal reflux disease with eso phagitis April 09, 2025 8:59am Abnormal CT of the abdomen March 3:35pm Bronchiectasis April 19, 2025 3:35pm Lower abdominal pain April 19, 2025 3:35pm Small bowel obstruction due to adhesions April 19, 2025 3:35pm Reason for Referral Type Reason(s) Provider Provider Contact Information P rovider Address Start Date Follow up as neededFollow up as neededJerzy Gray MDWork Phone: [phone] [address] [address]Lir have been scheduled for a follow up appointment for the following date and time, please call to reschedule if needed.Neetu Del Toro , CNPWork Phone: [employer] [facility] [address] [facility] [phone] Allergies, Adverse Reactions, Alerts Allergen Type Severity Reaction Last Updated Verified Status Penicillins Allergy Unknown Hives April 09, 2025 9:01am Y es Active Social History Smoking Status Status Start Date End Date Date of Observa tion Current some day smoker April 20, 2025 9:28pm Observation Status Observation Response Date of Response Legal Sex Male (finding) Sex Assigned At BirthMaleApril 1990 Family History Relationship Condition Age at Onset Recorded Date/T lynsey mother Diabetes mellitus Unknown Problems Active Problems Problem Diagnosis/Recorded Date Onset Date Status C omments Hx of gastric ulcer April 29, 2024 2:19pm Unknown A ctive Small bowel obstruction due to adhesionsNovember 2024 12:11pmUnknownActive Cigarette nicotine dependence in remissionNovember 2023 10:23amUnknown ActiveModerate persistent asthma, uncomplicatedMarch 2023 8:39amUnknown ActiveHemoptysisMarch 2024 9:18amUnknownActiveMarijuana abuseMarch 2024 9:18amUnknownActiveAbnormal CT of the abdomenNovember 2024 9:32pm UnknownActiveHistory of alcohol abuseDecember 2023 2:28pmUnknownActiveLower abdominal painNovember 2024 9:32pmUnknownActiveBronchiectasisMarch 2021 8:51amUnknownActiveGERD (gastroesophageal reflux disease)April 29, 2024 2:30pmUnknownActiveAllergic rhinitisMay 2024 1:34pmUnknownActiveHiatal herniaFebruary 2024 11:45amUnknownActiveInactive/Resolved Problems Problem Diagnosis/Recorded Date Onset Date Status C omments History of tobacco abuse July 30, 2023 9:30am Unknown Resolved Possible exposure to STDMarch 2022 4:06pmUnknownResolvedProblem List clean-up per request of Phys. EHR CmteCOVID-19July 2021 8:04pmUnknown ResolvedProblem List clean-up per request of Phys. EHR CmteCOVID-19November 2022 5:18pmUnknownResolvedProblem List clean-up per request of Phys. EHR Cmte Polysubstance dependenceMar 2017 2:41amUnknownResolvedProblem List clean- up per request [...] clean-up per request of Phys. EHR Cmte Contusion of ribFebruary 2024 12:43amUnknownResolvedTobacco abuseMarch 2021 [...] 11:37amUnknownResolvedProblem List clean-up per request of Phys. EHR Cmte Abdominal painAugust 2022 3:11pmUnknownResolvedAbdominal painSeptember 2023 8:59pmUnknownResolvedBronchitisNovember 2016 2:47amUnknown ResolvedProblem List clean-up per request of Phys. EHR CmtePneumoniaMarch 2021 1:10amUnknownResolvedProblem List clean-up per request of Phys. EHR Cmte SmokerMarch 2021 2:33amUnknownResolvedProblem List clean-up per request of Phys. EHR Cmte Medications Medication Status Dose Units Route Directions Qty Days Refills S tart Date Stop Date End Date Reason(s) Instructions Adherence Pantoprazole 40 mg tablet,delayed release (DR/EC) Discontinued 40 MG PO Twice daily 60 30 11 February 18, 2024 1:19pm April 29, 2024 2:23pmTake 1 tab 30 minutes before the first meal of the day, and take 1 tab 30 minutes before the last meal of the day.Albuterol Sulfate (Ventolin Hfa) 90 mcg/actuation HFA aerosol keljumpOxakapcbhjjq7MKUJYPJUMAQYIF Every 6 hours as needed for Shortness Of Breath Or Wheezing8.530February 2024 12:07pmJuly 2024 9:44amAlbuterol Sulfate 2.5 mg /3 mL (0.083 %) solution for nebulizationDiscontinued2.5MGINHALATIONEvery 4 hours as needed for Shortness Of Iibgjz689567Tvriv 2024 7:09amMay 2024 1:59mtJ80.50 asthmaClarithromycin 500 mg oqaoigWflnsgngwtyu625ESGNIbgoc qlghc99288Iuk 13th, 2025 11:00pmNovember 2024 9:24amFluticasone Propionate 50 mcg/actuation spray,suspensionActive0.ROUTE.ZCOEKPI752Rrtk 2024 8:34amINSTILL 2 SPRAY INTO EACH NOSTRIL DAILYUnknownAlbuterol Sulfate 2.5 mg /3 mL (0.083 %) solution for nebulizationDiscontinued2.5MGINHALATIONEvery 4 hours as needed for Shortness Of Qobybw954528Uyeu 2024 11:06amOctober 2024 12:00nsY10.50 asthma Albuterol Sulfate (Ventolin Hfa) 90 mcg/actuation HFA aerosol inhaler Zhvvgeoodpot3LRRHZCIGSYGIHYYvyvb 6 hours as needed for Shortness Of Breath Or Wheezing8.530July 2024 9:44amNovember 2024 10:01amEsomeprazole Magnesium (Nexium) 40 mg capsule,delayed release(DR/EC)Wbmsluruskpp61BHPHIqcej pzoos28077Pqfmxtgrc 2024 8:54amSeptember 2024 2:31pmTake 1 capsule orally 30 minutes before morning meal and 30 minutes before evening meal. Esomeprazole Magnesium (Nexium) 40 mg capsule,delayed release(DR/EC)Discontinued 40MGPOTwice eucfn95857Fwdhshoab 2024 2:30pmSeptember 2024 7:28amTake 1 capsule orally 30 minutes before morning meal and 30 minutes before evening meal.Esomeprazole Magnesium (Nexium) 40 mg capsule,delayed release(DR/EC)Active 48OLIJOvbxx65696Jlkmpknoa 19th, 2025 7:27amTake 1 capsule orally 30 minutes before morning meal and 30 minutes before evening meal.UnknownAlbuterol Sulfate 2.5 mg /3 mL (0.083 %) solution for nebulizationDiscontinued2.5MGINHALATIONEvery 4 hours as needed for Shortness Of Ekrzdl291583Zauwsfo 2024 12:00pm April 09, 2025 10:90txL10.50 asthmaPantoprazole 40 mg tablet,delayed release (DR/EC)Jlqzvweslotn08CZBVBwbgyHsgh 2018 11:00pmMar 2021 12:32pmOndansetron 4 mg tablet,pbriuthcdrxyncBvrdgdymqkvi6STOAZk DirectedJuly 2018 11:00pmMar 2021 12:32pmDoxycycline Hyclate 100 mg Tablet Ukzwtnnszjhp340OZRQKtcy 2018 11:00pmAugust 2018 1:48pmHydrocodone- Acetaminophen ([place]) 5-325 mg upvpfaRihvzzvkrdkp9AUQKZY7W as needed for tlkc729 December 24, 2018August 2018 1:48pmUnspecified abdominal painLevofloxacin (Levaquin) 750 mg cqlorhGmsyvnjpogfy144RGZOOoyln707Xqls 2018 11:00pmAugust 2018 1:48pmDicyclomine 20 mg MmbgusVzeorpkjonhi00TOZNZmkz times mgbdi867 April 19, 2021 12:00amMarch 15th, 2022 12:32pmOndansetron 4 mg tablet,bssdkaethbbjwmCqkzqurvkdjk2TBVUKlma times daily as needed for nausea and pwwjnlkm533Aovkwndw 18th, 2022 12:00amNovember 2021 9:29amAlbuterol Sulfate 2.5 mg /3 mL (0.083 %) solution for nebulizationDiscontinuedMGAlbert B. [facility] 2021 12:00amMarch 2022 5:17amPantoprazole (Protonix) 40 mg Tablet,Delayed Release (Dr/Ec)Xkcmdnowwprv76QTIETicxo dailyNovant Health2021 12:00amApril 2022 12:46pmPrednisone 50 mg npducwOxsqdadvhtqh42SWCQLspgc076 April 22, 2022 12:00amMarch 2022 5:17amAzithromycin (Zithromax) 250 mg fzdnirByklifgzhshu160NNLIXizsz97Nsiwklfo 2021 12:00amMarch 2022 5:17amZPAK-2 tabs day 1, the 1 tab daily for 4 daysDexamethasone 6 mg tablet Tgbcplrkbrjl4LJANPqibf78Glncs 2022 11:00pm[facility] 2022 5:17am Azithromycin (Zithromax Z-Daniel) 250 mg lhslabRfozvqsrledd667YCPVMhlya826Qcsxp 2022 11:00pm[facility] 2022 5:17amstart on day 2 of therapyAlbuterol Sulfate 2.5 mg /3 mL (0.083 %) solution for nebulizationDiscontinued2.5MG BINYCBBXPNL6R as needed for Shortness Of BreathApril 2022 11:00pmMarch 2023 9:19amPrednisone 20 mg WpoqytRhtajvhcmfom16CSHRDvexw13Gbmas 2022 11:00pmApril 2022 12:46pmGuaifenesin (Mucinex) 1,200 mg Tablet Extended Release 97unXttxmxquhbnb4996YXGBX74Q426Oepmy 2022 11:00pmAugust 2022 12:22pmDoxycycline Hyclate 100 mg UtxddlIecsxevlhifu417RAWTCkviq eruer427Wqnlc 5th, 2023 11:00pmApril 2022 12:46pmCefdinir 300 mg GjtfftyMmupcniskabx559 FYTOO09L148Eeksw 2022 11:00pmApril 2022 12:46pmPrednisone 20 mg osgsglGcvdlkcsnjtl84YTYJEedoe103Onngd 2022 11:00pmAugust 2022 12:22pmTake 3 tabs daily x 3 days, then 2 tabs daily x 3 days, then 1 tab daily x 3 days, then 1/2 tab daily x 4 days then stop.Guaifenesin (Mucinex) 600 mg Tablet Extended Release 93otCnoxcjhtcnnc5581OPAQSsrrt adrbr195Fucqx 2022 11:00pmAuartesia general hospitalt 2022 12:22pmClonazepam 0.5 mg TabletDiscontinued0.25MGPO Twice xmycb65927Obage 2022 11:00pmNov2022 3:14pmAnxiety Anxiety disorder, unspecifiedDicyclomine 10 mg mjgmupnNiwdoltnwvqs18SVWFKpbrq ztaon63Onegqh 19th, 2023 11:00pmFebruary 2023 7:36amOndansetron 4 mg tablet,gedltimfargevlVesfuripzgba9IGMHEiqea times xluno678Qundyl 19th, 2023 11:00pmNovant Health2022 12:48pmPrednisone 20 mg AtindcAnzpmluzrrbg4PXKZDcgmh April 03, 2023 12:00amFebruary 2023 7:37amNirmatrelvir-Ritonavir (Paxlovid) 300 mg (150 mg x 2)-100 mg tablets,dose bdwgMdorstevqibl7EZ.CXZKJPH05 0Nov2022 12:00amFebruary 2023 7:37amtake TWO 150 mg tablets of nirmatrelvir with ONE 100 mg tablet of ritonavir twice daily for 5 days Dexamethasone 6 mg rprcscIhmxwmlnyizk7UAVEQrxyg91Bdhawlkv 8th, 2023 12:00am July 25, 2023 7:36amOndansetron 4 mg tablet,nwbiqxsdsxdqieLwwwndqcbjdp8RA POQ8H as needed for nausea and upskgrsl872Vblpszbm 8th, 2023 12:00amFebruary 2023 7:37amAlbuterol Sulfate 2.5 mg /3 mL (0.083 %) solution for nebulizationDiscontinued2.5MGINHALATIONEvery 4 hoursSeptember 2023 11:00pm 2024 7:10amShortness Of BreathAlbuterol Sulfate (Ventolin Hfa) 90 mcg/actuation Hfa Aerosol IldhidaAphterhpyjay8XAGJLXOLQAPXOINpljy 6 hours as needed for Shortness Of Breath Or WheezingSeptember 2023 11:00pmFebruary 2024 12:07pmMetronidazole 500 mg OiikmrQcirljukiprq957FVCNGifdt times tjabw7868Klhpvhqeq 2023 11:00pmDece2023 2:17pmCiprofloxacin Hcl 500 mg fknksgWhqjafyfnjzu802USLPCxzpn fkeiy3193Astfhxtdv 2023 11:00pm April 03, 2024 9:49amstart 02/13/24 amCyclobenzaprine 10 mg tablet Yjsceckjjfcc63CVBTHghlu times daily as needed for Muscle Idpet712Pgdxaasqc 2023 11:00pmDece2023 2:17pmIbuprofen 600 mg jyxqulXfhdkmrpphon413MQVR Every 6 hours as needed for Rmax372Hllxdmbbe 2023 11:00pmDece2023 2:17pmdo not exceed 4 doses in a 24 hour periodHydrocodone-Acetaminophen 5- 325 mg tabletDiscontinuedTABFebruary 2024 12:00amFebruary 2024 9:54am Oxycodone-Acetaminophen (Percocet) 5-325 mg tabletDiscontinued1 - 2TABPOEvery 6 hours as needed for aldf1216Lwkobbyh 2024February 2024 1:01amTraumatic subdural hematoma Contusion of rib Contusion of unspecified front wall of thorax, initial encounterOmeprazole 40 mg capsule,delayed release(DR/EC)Tybpdlelakak24UVKEHjlln dailyFebruary 2024 12:00amMarch 2024 8:58amHydroxyzine Pamoate 25 mg capsuleDiscontinuedMG July 05, 2024 12:00amFebruary 2024 9:55amAzithromycin 250 mg tablet Rhpablomjzdc630PDSODknwqNfevsaua 8th, 2017 12:00amMah 2017 2:22am Fluconazole (Diflucan) 150 mg DyznmuXyfmacaxokrr563SCIUQntlc dailyNovant Health2016 12:00amM[facility] 2017 2:22amPrednisone 20 mg hvglxwCwxvybrvgkai80XPBHemkqj 40Novant Health2016 12:00amMamer[facility] 2017 2:22amadminister with food or milk Albuterol Sulfate 2.5 mg /3 mL (0.083 %) solution for nebulizationDiscontinued1 AMPULINHALATIONFour times daily - RespiratoryBrown [facility] Hospital 2017 12:00amJuly 2021 5:52pmOmeprazole 40 mg capsule,delayed release(DR/EC)Gbqwirxzueam39KYHL Twice dailyBrown [facility] Hospital 2017 12:00amJuly 2017 10:03amPsyllium Husk 3 gram/5.4 gram hsltyhXxydryipgebg7ISRTYBFvmgh ngphu5599Jvspp 2017 12:00am December 18, 2017 10:03ammix into at least 8 oz of water or juice before administeringOndansetron (Zofran Odt) 4 mg tablet,joutxtsymmdmxqEfmgfgiroaad4VU POQ8H as needed for fqelfy472Ulhxp 2017 12:00amJuly 2017 10:03am Prednisone 1 mg TabletDiscontinuedMGPODailyJuly 2017 11:00pmJuly 2018 10:07pmAlbuterol Sulfate 90 mcg/actuation Hfa Aerosol InhalerDiscontinued2 SDDZPXSMZMZLNIQ3C as needed for Shortness Of Breath Or WheezingJuly 2017 11:00pm[facility] 2021 10:43amLevofloxacin (Levaquin) 750 mg tabletDiscontinued 225ECZCBcuts183Lmas 2017 11:00pmJuly 2017 11:00pmJuly 2017 11:02pmDoxycycline Hyclate 100 mg uiiquiwHbqnqvurzfih222RHLQLivnh hspeq65750 August 08, 2021 11:00pm[facility] 2021 3:37amMethylprednisolone (Medrol (Daniel)) 4 mg tablets,dose hsutMvidrzfpciie3AW.IYTAQPJ975Lbjvd 2021 11:00pmMar 2021 10:43amorally per package directionsBudesonide-Formoterol (Symbicort) 80-4.5 mcg/actuation Hfa Aerosol InhalerDiscontinuedINHALATIONBrown [facility] Hospital 2021 11:00pmMar 2021 10:43amdose needs clarified.Nicotine 14 mg/24 hr Patch 24 LkxiWohaxvblhjcc3EHZOHABGQBTNETKXjhqu12054Fopjp 2021 11:00pmJuly 2021 5:53pmPrednisone 20 mg ChtunhNqgyeztruqnz5WOUGIpzgz Taper: Start: August 12, 2021 9:00am End: August 15, 2021 8:59am Frequency: DAILY Days: 3 Hours: 0 Dose: 40 Start: August 15, 2021 9:00am End: August 18, 2021 8:59am Frequency: DAILY Days: 3 Hours: 0 Dose: 20 Start: August 18, 2021 9:00am End: August 25, 2021 8:59am Frequency: DAILY Days: 7 Hours: 0 Dose: 20652Ymgjk 2021 11:00pmMay 2021 1:56pmPlease contact the information source for Taper Schedule details.Guaifenesin 100 mg/5 mL Liquid Avbutpuvgdld38QCTLR0R6840358Jzqdw 2021 11:00pmMay 2021 4:48am Omeprazole 20 mg Capsule,Delayed Release(Dr/Ec)Atnxefqnynih47IJLEDwsir29063Ftiwz 2021 11:00pmJuly 2021 5:53pmAlbuterol Sulfate (Ventolin Hfa) 90 mcg/actuation Hfa Aerosol KfsorduSwabemxgdjxf0PXBGHIRTZNFVJIQ6Z as needed for Shortness Of Breath Or Wheezing8.5300[facility] 2021 11:00pmSeptember 2023 1:59pmGuaifenesin (Mucinex) 600 mg Tablet Extended Release 12hrDiscontinued 1200MGPOTwice cgudv69999Pezal 2021 11:00pmMay 2021 4:48amFluticasone Propion-Salmeterol 113-14 mcg/actuation Aerosol Powdr Breath Activated Xeufvpypdikt0VCEAZIRKEMBIGNPwxkd qfzgz8066Tysgw 2021 11:00pmMay 2021 4:47amLevofloxacin 750 mg tvbzueDuuzdwdmsukp154IXXFBryle72116Nzgpb 2021 11:00pmMay 2021 1:56pmPrednisone 50 mg jyioydWpjcqwppnqpm06DDNAJndsf798 September 06, 2021 11:00pmMay 2021 5:22amAlbuterol Sulfate (Ventolin Hfa) 90 mcg/actuation HFA aerosol tdqfbfrNcxbzuaocxjt1NMVVGCJOOZBYJRMQKV 4-6 HOURS as needed for shortness of breath or wheezing8.50April 2021 11:00pmJuly 2021 5:52pmNicotine 14 mg/24 hr Patch 24 IaggSnpnsejodshn7AYQQSOBQXQZRHDNfllj34 300May 2021 11:00pmJuly 2021 5:53pmOseltamivir 75 mg Capsule Vcommlzpeuyn48AAMFZgusn vixvl990CieOctober 10, 2021 11:00pmJuly 2021 5:53pm Sodium Chloride (Nebusal) 3 % solution for hgzabpgpncfdYjcegoujvfyi2BSGBMZLWOSAT EVERY 4-6 HOURS as needed for topkocftfy0873Vdf 2021 11:00pmJuly 2021 5:53pmtake 1 dose every 4 hours as needed promote mucus productionAlbuterol Sulfate 90 mcg/actuation HFA aerosol qhzvzwcLcliwwfsebra1BOKSQLBNKSOQPC7S as needed for shortness of breath or wheezing6.7300May 2021 11:00pmNovember 2021 9:29amAlbuterol Sulfate 1.25 mg/3 mL solution for nebulization Discontinued1.09STNWIHXRNOVUY4J as needed for shortness of breath or hrgakrui39 300May 2021 11:00pmJuly 2021 5:52pmPrednisone 10 mg tablet Ipivetvhhtft5XUFRGtjgg Taper: Frequency: DAILY Days: 2 Hours: 0 Dose: 20 Frequency: DAILY Days: 2 Hours: 0 Dose: 10 Frequency: DAILY Days: 2 Hours: 0 Dose: 5770May 2021 11:00pmJuly 2021 5:53pmPlease contact the information source for Taper Schedule details.Sodium Chloride 3 % solution for lwmqdxegtmtpWunikmjvvmll5IWMRCQPSEERYO4P as needed for Shortness Of BreathJuly 2021 11:00pmNovember 2021 9:29amBenzonatate 100 mg capsule Rvssfksjpdmx844SZZKYjper times daily as needed for stdfq900Hcgp 2021 11:00pmNovember 2021 9:29amPrednisone 20 mg hmzsveGbbxpxvsetzc51VBFNOvtzl3 30July 2021 11:00pmNovember 2021 9:29amDicyclomine 20 mg tablet Zzxsyovpomif26DCQVXeog times eclbx425Rqdjk 2022 11:00pmApril 2022 3:08amOndansetron 4 mg tablet,xhgjnizvboqygrOmwekrcpaary9CQJKcdvle 6 to 8 hours as needed for Mpkdxe963Bkrsg 2022 11:00pmApril 2022 3:08amHydroxyzine Pamoate 25 mg fsmtpkyAaphhkpkiybk78YMOTWvlah times daily as needed for Anxiety April 02, 2023 12:00amFebruary 2023 7:37amOndansetron 4 mg tablet,cyeodydqiejoyqQbkmrcuarebh9YTKCBjbqn times daily as needed for Nausea April 02, 2023 12:47pmNovember 2022 3:14pmDexlansoprazole (Dexilant) 60 mg capsule,biphase delayed tyximtEouimwwzcnjb77CRUZQxxbk067Dijkbibc 6th, 2023 12:00amFebruary 2023 7:36amTrazodone 50 mg chlazcDtgovhssyyqg84DRQGNgboy at bedtimeJune [address] [facility] 2023 2:18pmDexlansoprazole 60 mg capsule,biphase delayed ticifbIijbai61NZQFDexniAulrxpdg 2024 12:00am Complies with drug therapyTrazodone 50 mg tabletActiveMGNovember 2024 12:00amUnknownDoxycycline Hyclate 100 mg tabletDiscontinuedMGNovember 2024 12:00amNovember 2024 1:47pmPolyethylene Glycol 3350 (Healthylax) 17 gram Powder In AmyvmwUzdeuw38QLIOIzeey027Dwgsjswp 25th, 2025 12:00amUnknown Pantoprazole 40 mg tablet,delayed release (DR/EC)Jkdzsvprdsws44BIACGubbbMcrrxlvf 2023 12:00amMay 2023 9:50amSodium Chloride 3 % solution for cwycfhsethlrLupndojebbqg3ASEKIQVRMSAM.COMPLEXFebruary 2023 12:00amFebruary 2024 12:00am4 mL inhaled twice a day;Albuterol Sulfate 2.5 mg /3 mL (0.083 %) solution for nebulizationDiscontinued2.3PRYBAEROJTHSP0P9468Bbzvm 2023 9:18amSeptember 2023 1:59pmModerate persistent asthma without complication Moderate persistent asthma, uncomplicated Shortness Of BreathEscitalopram Oxalate 10 mg yiwxueCeqauephvhjh13OFKWIxgdgNgjv 2023 11:00pmNovsummit healthcare [facility] 2023 9:52amEscitalopram Oxalate 10 mg tablet Hcdljzppqqau03XWEPDjrnlLhlsknyx 7th, [address] [facility] 2023 2:17pmLexapro Budesonide-Formoterol (Symbicort) 160-4.5 mcg/actuation HFA aerosol inhaler Kgvbjuviljbo9IUOIWZSZMBPXAJJiqgm zpxrx42Xrdxh 2024 12:00amMay 2024 1:30pmModerate persistent asthma without complication Moderate persistent asthma, uncomplicatedRinse after use. May substitute with generic budesonide/formoterol or Breyna, whichever is covered by insurance or cheaper for the patient.Oxygen unitDiscontinued0.RouteMay 2024 11:00pmMay 2024 12:55pmAs directedOxygen unitActive0.RouteMay 2025 12:54pmAs directed 3 L/M [facility] [employer] Service CompanyPrednisone 10 mg mskomfZctbzrwewhkm8KN xjqid889QoxOctober 06, 2024 11:00pmNov2024 9:02amorally daily; 4 tablets daily for 3 days orally, 2 tablets daily for 3 days orally, 1 tablet daily for 7 days orallyFluticasone Propionate 50 mcg/actuation spray,suspensionDiscontinued2 TSCYEWRFMVEIRDDVhtjx69211Jka 2024 11:00pmJune 2024 8:34amadminister into each nostrilAlbuterol Sulfate 2.5 mg /3 mL (0.083 %) solution for nebulizationDiscontinued2.5MGINHALATIONEvery 4 hours as needed for Shortness Of Hhubbs580566Fph 13th, 2025 1:29pmJuly 2024 11:96pyW92.50 asthmaFluticasone Propion-Salmeterol (Advair Hfa) 230-21 mcg/actuation HFA aerosol inhalerActive2 INHINHALATIONTwice kmdde22446XaeOctober 06, 2024 11:00pmUnknownPantoprazole 40 mg tablet,delayed release (DR/EC)Idqjkvovkgym50NISKLhyht355493Iww 2023 9:49am February 18, 2024 1:24pmCephalexin 500 mg zimrnsdOsdhngnibpsp984ZJCEQaisi dailyApril 03, 2024 12:00amDeceer 2023 2:17pmHydroxyzine Pamoate 25 mg keatrisHkufgagcnzam17XRPMHosxb 8 hours as neededApril 03, 2024 12:00am April 29, 2024 2:18pmOxygen unitDiscontinued0.RouteApril 03, 2024 12:00amFebruary 2024 1:02amAs directedMometasone-Formoterol (Dulera) 100-5 mcg/actuation HFA aerosol usyenofNlkvndcyzkcp6NLLAYQZCVXHSUNDfbwk flfmy1587 April 03, 2024 12:00amFebruary 2024 12:00amModerate persistent asthma without complication Moderate persistent asthma, uncomplicatedRinse after useOmeprazole 40 mg capsule,delayed release(DR/EC)Qissuseyvsak80CIACZcfmx jygjl94643Kxahabvt 3rd, 2024 12:00amFebruary 2024 12:00amSucralfate (Carafate) 1 gram tablet Gcbpgpjytfdk6BGYWNjppn times pokob29120Rxuegvwm 3rd, 2024 12:00amFebruary 2024 12:00amEsomeprazole Magnesium (Nexium) 40 mg capsule,delayed release(DR/EC) Pbnxbxwsekgk14DGUAHumuv tcavt13848Ivrobqcw 21st, 2025 12:00amSeptember 2024 8:55amPrednisone 10 mg evnwjgDtwvkttnfnom2RUghkcd542Vmoocszd 13th, [address] [facility] 2024 1:47pmorally daily; 4 tablets daily for 3 days orally, 2 tablets daily for 3 days orally, 1 tablet daily for 7 days orally Clarithromycin 500 mg nyrqebSgmfkjelscbz526DHLBSxepa pcdoi02714Kbajamym 13th, 2025 12:00amNre[facility] 2024 1:47pmAlbuterol Sulfate (Ventolin Hfa) 90 mcg/actuation HFA aerosol idfoytrCdetuq5CUYPQVHLEUGLUXTrbur 6 hours as needed for Shortness Of Breath Or Wheezing8.5302Novsummit healthcare regional [facility] 2024 10:01amComplies with drug therapyAlbuterol Sulfate 2.5 mg /3 mL (0.083 %) solution for nebulizationActive2.5MGINHALATIONEvery 4 hours as needed for Shortness Of Breath 416358Eugnpmvs 2024 10:64raU95.50 asthmaComplies with drug therapy Immunizations Immunization Event Date Not Given Reason Dose Number Systems Lead Lot Number Reason(s) Given Vaccine Information Statement (VIS) Detail Administration Location Tetanus, Diphtheria, Pertussis (Tdap) March 282021 [address] Procedures Procedure Date Performed Status CT abdomen pelvis wo con April 21, 2025 10: 28am completed Relevant Diagnostic Tests and/or Laboratory Data Laboratory Results Test Collection Date/Time Result Date/Time Result Interpretation Reference Range Result Comment Performing Site Corrected White Blood Count April 21, 2025 6:27am April 21, 2025 7:06am 5.7 10*3/uL 4.1-10.5[facility] [id number] [address] [facility] [address]Vggtvwvjlmx WBC CountNovember 2024 6:27amNovember 2024 7:06am5.7 10*3/uL4.1-10.5FDayton [facility] [id number] [address] [facility] [address]Tso Blood CountNovember 2024 6:27amNovember 2024 7:06am4.49 10*6/uL3.90-5.60[facility] [id number] [address] [facility] [address]QjwpvwygneUtelveat 2024 6:27amNovember 2024 7:06am 13.1 g/dL13.0-17.0[facility] [id number] [address] [place] [address] 15137RxpywwqhncDuuofend 2024 6:27amNovember 2024 7:06am 37.9 %Below low qkksko74.8-50.0[facility] [id number] [address] [place] [address]6419Drgl Corpuscular VolumeNovember 2024 6:27amNovember 2024 7:06am84.5 fL83.5-101[facility] [id number] [address] [place] [address] 91874Tfsf Corpuscular HemoglobinNovember 2024 6:27amNovember 2024 7:06am29.2 pg27.5-35.2[facility] [id number] [address] [place] [address] 92862Vzyj Corpuscular Hemoglobin ConcentNovember 2024 6:27am November 2024 7:06am34.5 g/dL32.5-35.6[facility] [id number] [address] [facility] [id number] Cell Distribution WidthNovember 2024 6:27amNovember 2024 7:06am13.7 %12.0-14.8[facility] [id number] 1111 [facility] 09803Ulczzdgw CountNovember 2024 6:27amNove2024 7:33vy585 10*3/vA147-012NoijfypsiChildren'S [facility] [id number] 1111 [facility] 07891Egph Platelet VolumeApril 21, 2025 6:27amNove2024 7:06am10.0 fL6.6-10.1FDayton [facility]'s [facility] [id number] 1111 [facility] 30566Bihbesjbtin (%) (Auto)April 21, 2025 6:27amNove2024 7:06am59.0 %.[facility] [id number] 1111 [facility] 59195Yjplrvimofj (%) (Auto)April 21, 2025 6:27amNovemb2024 7:06am26.5 %.[facility] [id number] 1111 [facility] 88534Zmibplxgg (%) (Auto)April 21, 2025 6:27amNove2024 7:06am10.9 %.[facility] [id number] 1111 [facility] 73208Ppelotmjumm (%) (Auto)April 21, 2025 6:27amNove2024 7:06am2.5 %.[facility] [id number] 1111 [facility] 76515Tckhagtrh (%) (Auto)April 21, 2025 6:27amNovemb2024 7:06am1.1 %.[facility] [id number] 1111 [facility] 59254Wzeszopfy RBC Relative Count (auto)April 21, 2025 6:27am April 21, 2025 7:06am0.1 /100{WBC}0-0.5FDayton Children's Hospital [facility] [id number] 1111 [facility] 50707Kaypcmyylch # (Auto)April 21, 2025 6:27amNovemb2024 7:06am3.4 10*3/uL1.8-7.7FDayton [facility] [id number] 1111 [facility] 72766Inauenwsfwt # (Auto)April 21, 2025 6:27amNove2024 7:06am1.5 10*3/uL1.00-4.8[facility] [id number] 1111 [facility] 97053Rmtwrxjfb # (Auto)April 21, 2025 6:27amNovemb2024 7:06am0.6 10*3/uL0.0-0.8[facility] [id number] [address] [place] [address] 92263Btnhkuoiubi # (Auto)April 21, 2025 6:27amNove2024 7:06am0.1 10*3/uL0.0-0.45[facility] [id number] [address] [place] [address] 83040Xuzsgflrq # (Auto)April 21, 2025 6:27amNove2024 7:06am0.1 10*3/uL0.0-0.2FDayton Children's Hospital [facility] [id number] [address] [place] [address] 20020Ajoztpvddjv TimeApril 20, 2025 6:11amNove2024 7:50am12.6 s9.0-12.9A hematocrit value greater than 55% may lead to inaccurate results in coagulation testing. Patientshaving hematocrit values >55% require a special collection tube for coagulation studies. Please contact the laboratory at [phone] for redraw instructions.[facility] [id number] 1111 [facility] 83681Dwqyttxhs Time International RatioN2024 6:11am April 20, 2025 7:50am1.1INR Therapeutic Range A) Pre- and Peroperative OAT started two weeks before surgery. NOT HIP SURGERY: 1.5 - 2.5 HIP SURGERY: 2 - 3B) Primary and secondary prevention of venous THROMBOSIS: 2 - 3C) Active venous thrombosis, pulmonary embolismand prevention of recurrent venous thrombosis: 2 - 3D) Prevention of arterial thromboembolismincluding patients with mechanical heart valves: 3 - 4.5FDayton Children's Hospital Ctr [id number] [address] [place] [address] 55406Bcoqeylyt Partial Thromboplast TimeNov5 6:11am April 20, 2025 7:50am30.1 s25.1-36.5A hematocrit value greater than 55% may lead to inaccurate results in coagulation testing. Patientshaving hematocrit values >55% require a special collection tube for coagulation studies. Please c ontact the laboratory at [phone] for redraw instructions.[facility] [id number] 1111 [facility] 37187Gfaueft LevelNov2024 6:27amNove2024 7:41wr518 mg/dLAbove high nswyyg28-608OWS recommended reference rangeRandom Glucose Reference Range is dependent on time and content of last meal. Glucose of more than 200 mg/dL in a nonstressed, ambulatory subject supports the diagnosisof Diabetes Mellitus.[facility] [id number] 1111 [facility] 65841Gmihd Urea NitrogenApril 21, 2025 6:27amNove2024 7:22am9 mg/dL7-25[facility] [id number] 1111 [facility] 22398VddatdajitUnebggqe 25th, 2025 6:27amNove2024 7:22am 1.00 mg/dL0.70-1.30[facility] [id number] 1111 [facility] 84223Rtavhwbwu GFR (CKD-EPI)April 21, 2025 6:27amNove2024 7:22am> 60.0 mL/MinChildren'S Hospital Of [facility] Ctr [id number] 1111 [facility] 13822Ymlipm LevelApril 21, 2025 6:27amNove2024 7:54yk515 mmol/K741-881QmudczjypChildren'S Hospital Of [facility] Ctr [id number] 1111 [facility] 88436Jpzumrfuo LevelApril 21, 2025 6:27amNove2024 7:22am3.5 mmol/L3.5-5.1FDayton Children's Hospital [facility] [id number] 1111 [facility] 67868Daorlrup LevelApril 21, 2025 6:27amNove2024 7:17fr738 mmol/H05-279LewvzzvclChildren'S Hospital Of [facility] Ctr [id number] 1111 [facility] 31553Zrrsyc Dioxide LevelApril 21, 2025 6:27amNovember 2024 7:22am28.1 mmol/L21.0-31.0[facility] [id number] [address] [place] [address] 57058Yfvll GapApril 21, 2025 6:27amNovemb2024 7:22am 9.4 mEq/L6.0-15.0[facility] [id number] [address] [place] [address] 12376Arddras LevelApril 21, 2025 6:27amNovember 2024 7:22am8.4 mg/dLBelow low normal8.6-10.3FDayton Children's Hospital [facility]tr [id number] [address] [place] [address] 90397Hzjnaxuj Creatinine Clearance (ChemNov2024 6:27am April 21, 2025 7:22am83.77[facility] [id number] [address] [place] [address]902 Diagnostic Imaging Reports Author Ashish Candelario [facility] HospitalReport Date/TimeApril 21, 2025 11:25am [facility] [place] [address] [place] [address] Scan Report Signed Patient: Luis Solomon MR#: [id number] : 1990 Acct:[id number] Age/Sex: 34 / M ADM Date: 5 Loc: 4N Room: [address] [place] [address] Type: ADM IN Attending Dr: Parth Wong MD Copies to: Parth Wong MD~ Ordering Provider: Parth Wong MD Date of Service: 04/21/25 CT/CT abdomen pelvis wo con: abd pain/distention CT abdomen pelvis wo con 04/21/2025 11:13 AM SIGNS AND SYMPTOMS: ^abd pain/distention TECHNIQUE: Multidetector ct axial images of the abdomen and pelvis were obtainedwithout IV contrast. Multiplanar reformats were performed and reviewed to further define anatomy and possible pathology. CT was performed with one or more of the following dose reduction techniques: Automated exposure control, adjustment of the mA and/or kV according to patient size, or use of iterative reconstructiontechnique. COMPARISON: 04/19/2025 FINDINGS: Lower Chest: There is a hiatal hernia with gastric fundus projecting in the lower mediastinum. There is 11 x 16 mm noncalcified nodule at the left lung base. This is unchanged. There is dependent airspace opacity. There is fibrotic changes along the medial aspect of the left lower lobe with accompanying bronchiectasis. There is bronchiectasis in the segmental bronchi of the right lower lobe with endobronchial soft tissue opacification which appears to be chronic in nature. ABDOMEN: Liver: Within normal limits. Bile Ducts: Normal caliber. Gallbladder: No calcified gallstones. Normal caliber wall. Pancreas: Within normal limits. Spleen: Within normal limits. Adrenals: Within normal limits. Kidneys: Within normal limits. Pelvis: Reproductive Organs: No pelvic masses. Ureters: Within normal limits. Bladder: Within normal limits. Bowel: Normal caliber. There is a normal appendix in the right lower quadrant. Mesenteric Lymph Nodes: No enlarged mesenteric lymph nodes. Peritoneum: No ascites or free air, no fluid collection. Vessels: within normal limits Retroperitoneum: Within normal limits. Abdominal Wall: Within normal limits. Bones: Degenerative changes are noted in the thoracolumbar spine. CT/CT abdomen pelvis wo con IMPRESSION: No bowel obstruction or obstructive uropathy. Chronic changes are noted in the lung bases similar to the prior exam. There is a hiatal hernia with gastric fundus projecting in the lower mediastinum. There is 11 x 16 mm noncalcified nodule at the left lung base. This is unchanged. Impression dictated by: Ashish Candelario M.D. 04/21/2025 11:25 AM Dictation Location: [place] [address] Transcribed By: [facility] 04/21/25 1125 Dictated By: Ashish Candelario II, MD 04/21/25 1111 Signed By: <Electronically signed by Ashish Candelario II, MD in OV> 04/21/25 1125 Vital Signs Vital Reading Result Reference Range Collection Date/Time Height 62 [in_i] April 09, 2025 9:29cjQvmlvx92.60 kgNov2024 9:23amHeart Rate77 /wik82-186AdozummtApril 09, 2025 9:23amRespiratory rate20 /hwa97-07KiectwszApril 09, 2025 9:23amOxygen saturation by Pulse xifyrfjw60 %95-100April 09, 2025 9:23amBP Wzmcrgig261 mm[Hg]100-140April 09, 2025 9:23amBP Vxqfjduhm97 mm[Hg]60-100April 09, 2025 9:23amBMI (Body Mass Index)23.2 kg/s0VmisgjwsApril 09, 2025 9:77fsSepsds53 [in_i]April 20, 2025 10:91guBpvrqn22.10 kg April 21, 2025 6:50amBody Nadjovwdoxd25.5 [degF]97.6-99.0April 21, 2025 12:00pmHeart Rate78 /rci27-547UfjnnveiApril 21, 2025 12:00pmRespiratory rate16 /mkv61-12SjqqtxooApril 21, 2025 12:00pmOxygen saturation by Pulse yexpwavt30 % 95-100April 21, 2025 12:00pmBP Tawjulnp636 mm[Hg]100-140April 21, 2025 12:00pmBP Aemqxhake55 mm[Hg]60-100April 21, 2025 12:00pmInhaled oxygen flow rate3 L/minApril 21, 2025 4:51am Advance Directives Advance Directive Response Recorded Date/ Time Advance Directives No April 04, 2017 2:05am Insurance Providers Guarantor Luis Archibald [place] Address [address] [facility] [address]Qfhvruu Info.Home Phone: Coverage Status Update:2025 Payer Group Member ID Coverage Type Subscriber Relationship to Subscriber Effective Date Expiration Date Monica MARI [id number] J [place] Id: [id number] [address] [facility] [address] Home Phone: Email: [email or web address] Id: [id number] T [place] Id: [id number] [address] [address] [facility] [address] Home Phone: Email: [email or web address] Encounters Encounter Location(s) Arrival/Admit Date Discharge/Departure Date Discharge/Departure Disposition Provider(s) Departed Physician/ Provider Office Visit -[facility] April 09, 2025 8:59am April 09, 2025 10:10am Discharged to home care or self care (routine discharge) Nando Fuller MD Discharged Inpatient -[address] [place] [address] April 19, 2025 3:35pm April 21, 2025 2:40pm Discharged to home care or self care (routine discharge) David Nieto MD Recent Diagnosis Onset Date Admit Date Allergic rhinitis Unknown April 09, 2025 8:59am Bronchiectasis Unknown April 09, 025 8:59am Cigarette nicotine dependence in remission Unkno wn April 09, 2025 8:59am Marijuana abuse Unknown April 09 025 8:59am Moderate persistent asthma, uncomplicated Unknow n April 09, 2025 8:59am Gastroesophageal reflux dise ase with esophagitis Unknown April 09, 2025 8:59am Abnormal CT of the abdomen Unknown 2024 3:35pm Bronchiectasis Unknown April 19 3:35pm Lower abdominal pain Unknown April 192024 3:35pm Small bowel obstruction due to adhesions Unknown April 19, 2025 3:35pm Functional Status Observation Response Date Recorded Dressing Patient at Baseline March 2:45pm Eating Patient is Progressing Toward Ba seline April 21, 2025 2:45pm Bathing Patient at Baseline March 2:45pm Disability Status Patient at Baseline March 292024 2:45pm Mental Status Observation Response Date Recorded Cognitive Status Patient at Baseline April 212024 2:45pm Cognitive/Mental Status Assessments Assessments Diagnosis Onset Date Resolution Status Admit Date Allergic rhinitis acuteNovember 2024 8:59amBronchiectasisacuteNovember 2024 8:59am Cigarette nicotine dependence in remissionacuteApril 09, 2025 8:59am Marijuana abuseacuteNov2024 8:59amModerate persistent asthma, uncomplicatedacuteMar2024 8:59amGastroesophageal reflux disease with esophagitisresolvedNov2024 8:59amAbnormal CT of the abdomenacute April 19, 2025 3:35pmBronchiectasisacuteNov2024 3:35pmLower abdominal painacuteNov2024 3:35pmSmall bowel obstruction due to adhesionsacuteNov2024 3:35pm Plan of Treatment Author Nando Fuller [facility] HospitalAuthoredNovember 2024 10:35amPatient gives symptoms to suggest potential exacerbation of bronchiectasis. Patient does not have recent cultures indicative of Pseudomonas. Patient has not received outpatient therapy for this and does not have obvious accessory muscle use nor significant wheezing on examination with adequate oxygenation with the patient being relatively young. Patient would like to be admitted but patient does not truly meet criteria for admission at this point and feel that it is reasonable to try patient on outpatient regiment. If he has no improvement in the next 48 to 72 hours then we could consider this a failure of outpatient treatment and encouraged patient to be evaluated in the emergency department (preferably [facility]) for potential admission. Patient voiced understanding of this. Courses of antibiotics and steroids with refills of albuterol were given as indicated below. Patient was encouraged to return to the emergency department should he develop worsening symptoms. We will continue 6-month follow-up. All questions were answered. The patient was advised to call us if there are any new respiratory issues or concerns. Future Tests Future scheduled test information is unavailable Pending Tests Pending diagnostic test information is unavailable Future Visits Future appointment information is unavailable Future Procedures Procedure Name Ordered Date Scheduled Date Admit Status Order April 19, 2025 3:49pm No vember 2024 3:49pm Discharge Order April 21, 2025 1:47pm Novem anabel 2024 1:47pm Consult to General Surgery April 19, 2025 3 :49pm April 19, 2025 3:49pm Future Medications Future medication information is unavailable Patient Instructions Instruction Admit Date Know your Meds April 19, 2025 3:35pm Goals Acute Goals Author Authored Date Exhibit optimal tissue perfu loree * Exhibits adequate oxygenation and ventilation * Exhibits adequate cardiac output * Regains stable cardiac rhythm * Maintains optimal activity level * Maintains balanced intake and outputJohn Ravindra [facility] HospitalApril 21, 2025 3:08pm Preferences Type Detail Treatment Intervention Code Status: Full Code Consultation Note Author Jerzy Daly [facility] HospitalNote Date/TimeApril 20, 2025 9:33pm [place] [id number] General Surgery Consult Note Signed Patient: Luis Solomon MR#: [id number] : 1990 Acct:[id number] Age/Sex: 34 / M Adm Date: 5 Loc: 4N Room: [address] [place] [address] Type: ADM IN Attending Dr: Parth Wong MD Copies to: MD Parth Wang MD Pamela Sue Cramer, [facility]~ History of Present Illness Date of consult: 04/20/2025 Requesting/Attending Provider: Parth Wong MD History of present illness: Patient is a 34-year-old male who presents with about a 1 to 2-day history of abdominal pain. Patient states he woke up with abdominal pain causing him to bedoubled over. He points to the mid and right lower abdomen as site of the pain. He denies vomiting. He presented to the emergency room at [place]. CT scan apparently showed evidence of a bowel obstruction and patient was transferred here. Patient states he has been passing flatus. He did have a bowel movement the dayof admission. He hasbeen tolerating liquids here. Past abdominal surgery includes gastrostomy tube as a child. He also had surgery for T-E fistula asa child. He has bronchiectasis. Follows with Dr. Fuller. . 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 Recovering alcoholic CLEAN SINCE 2019 Dysphagia History of pneumonia History of bronchitis History of prematurity Surgical History History of facial surgery PLASTIC SURGERY RIGHT SIDE OF FACE Status post insertion of percutaneous endoscopic gastrostomy (PEG) tube CHILD Family History Mother Diabetes Social History Smoking Status: Current some day smoker Tobacco Type: cigarettes Substance Use Type: Marijuana Substance Abuse Comment: MARIJUANA 2x weekly, smoke, last smoked 04-01-23 Social History Comments: mobile home Allergies & Medications Medications and Allergies Allergies Penicillins Allergy (Unknown, Verified 04/09/25 09:01) Hives Home Medications Advair HFA 230 mcg-21 mcg/actuation aerosol inhaler (fluticasone propion- salmeterol) 2 inh inhalation BID 90 days #36 grams 10/07/24 [Rx Confirmed 04/09/25] Oxygen 10/07/24 [History Confirmed 04/09/25] fluticasone propionate 50 mcg/actuation nasal spray,suspension See Rx Instructions .Route .COMPLEX #48 mL 11/03/24 [Rx Confirmed 04/09/25] esomeprazole magnesium 40 mg capsule,delayed release (Nexium) 40 mg PO DAILY 30 days #30 caps 02/13/25 [Rx Confirmed 04/09/25] albuterol sulfate 2.5 mg/3 mL (0.083 %) solution for nebulization 2.5 mg (3 mL) inhalation Q4HR PRNShortness Of Breath 90 days #360 mL 04/09/25 [Rx Confirmed 04/19/25] albuterol sulfate 90 mcg/actuation aerosol inhaler (Ventolin HFA) 2 puff inhalation Q6HR PRN Shortness Of Breath Or Wheezing 30 days #8.5 grams 04/09/25 [Rx Confirmed 04/19/25] clarithromycin 500 mg tablet 500 mg PO BID 10 days #20 tabs 04/09/25 [Rx Confirmed 04/09/25] prednisone 10 mg tablet See Rx Instructions PO QDAY #25 tabs 04/09/25 [Rx Confirmed 04/09/25] dexlansoprazole 60 mg capsule,biphase delayed release 60 mg PO DAILY 04/19/25 [History Confirmed 04/19/25] doxycycline hyclate 100 mg tablet mg 04/19/25 [History] trazodone 50 mg tablet mg 04/19/25 [History] Active Medications Albuterol (Albuterol Neb 2.5 Mg/3 Ml Vial.Neb) 2.5 mg INHALATION Q4HR PRN PRN Reason: Shortness Of Breath Stop: 04/19/26 17:10 Last Admin: 04/20/25 17:02 Dose: 2.5 mg Enoxaparin Sodium (Enoxaparin 40 Mg/0.4 Ml Syringe) 40 mg SUBCUT DAILY@10 AMA Stop: 04/20/26 09:59 Last Admin: 04/20/25 09:57 Dose: 40 mg Morphine Sulfate (Morphine Sulfate 4 Mg/Ml Cartridge) 4 mg IV-PUSH Q3H PRN PRN Reason: Severe Pain Last Admin: 04/20/25 12:31 Dose: 2 mg Ondansetron HCl (Ondansetron 4 Mg/2 Ml Vial) 4 mg IV-PUSH Q4H PRN PRN Reason: Nausea And Vomiting Stop: 04/19/26 17:10 Pantoprazole Sodium (Pantoprazole 40 Mg Vial) 40 mg IV-PUSH DAILY [facility] Stop: 04/19/26 17:14 Last Admin: 04/20/25 08:19 Dose: 40 mg Sodium Chloride (Sodium Chloride 0.9 % 10 Ml Vial.Pf) 10 ml INJECTION PRN PRN PRN Reason: Dilution Stop: 04/19/26 17:12 Last Admin: 04/20/25 08:19 Dose: 10 ml Sodium Chloride (Sodium Chloride 0.9 % 10 Ml Syringe) 10 ml IV-PUSH PRN PRN PRN Reason: Flush Stop: 04/19/26 17:12 Exam Physical Exam Vital Signs: Temp Pulse Resp BP Pulse Ox O2 Del Method O2 Flow Rate 98.6 F 58 L 16 124/83 96 Room Air 3 04/20/25 20:45 04/20/25 20:45 04/20/25 20:45 04/20/25 20:45 04/20/25 20:45 04/20/25 20:46 04/20/25 08:27 Const General: cooperative and no acute distress HEENT Head: atraumatic Eyes Sclera: sclerae normal (Anicteric) Resp Auscultation: clear to auscultation bilaterally Cardio Rate: regular rate Rhythm: regular rhythm GI Inspection: non-distended Palpation: soft, no guarding and tender (Mild tenderness lower mid abdomen) Neuro General: patient alert and patient awake Results - Gen. Surgery Pain Assessment Abdomen: Pain Description: Soreness Pain Intensity: 7 Intake and Output 24 hour I&O: Intake & Output 04/20/25 04/20/25 04/20/25 07:59 15:59 23:59 Intake Total 1999 / 1999 2500 / 4500 Output Total 1400 / 1400 2875 / 4275 Balance 600 / 600 -375 / 225 Weight 59.1 kg Labs 04/20/25 06:11 04/20/25 06:11 Laboratory Results - last 72 hr 04/20/25 06:11: Corrected WBC 8.1, Uncorrected WBC Count 8.1, RBC 4.54, Hgb 13.2, Hct 38.5 L, MCV 84.7, MCH 29.2, MCHC 34.4, RDW 13.6, Plt Count 196, MPV 10.1, Neut % (Auto) 67.0, Lymph % (Auto) 21.6, [place] % (Auto) 8.2, Eos % (Auto) 2.1, Baso % (Auto) 1.1, Nucleat RBC Rel Count 0.0, Neut # (Auto) 5.4, Lymph # (Auto) 1.8, [place] # (Auto) 0.7, Eos # (Auto) 0.2, Baso # (Auto) 0.1, PT 12.6, INR 1.1, APTT 30.1, PHA Creatinine Clear 107.40, Sodium 138, Potassium 3.7, Chloride 108 H, Carbon Dioxide 26.2, Anion Gap 7.5, BUN 5 L, Creatinine 0.78, Est GFR (CKD-EPI) > 60.0, Glucose 96, Calcium 8.1 L A&P - General Surgery (1) Lower abdominal pain: (2) Abnormal CT of the abdomen: Plan Patient does not have an acute surgical abdomen. Will advance diet. If patient tolerates diet, possible discharge home tomorrow. If the patient does have persistent or recurrent abdominal pain, may consider a follow-up CT scan in the future. Documented By: Jerzy Daly MD 04/20/252126 Signed By: <Electronically signed by MD Jerzy Daly> 04/20/252132 Discharge Summary Note Author Parth Wong [facility] HospitalNote Date/TimeNov2024 2:22pm [address] [address] Discharge Summary Signed Patient: Luis Solomon MR#: [id number] : 1990 Acct:[id number] Age/Sex: 34 / M Adm Date: 5 Loc: N Room: [address] [place] [address]: Parth Wong MD Copies to: Martha Francis DO, RES MD Neetu Mckee, [employer]~ Providers Date of Admission: 04/19/25 Date of Discharge: 04/21/25 Discharging Provider: Parth Wong Primary Care Provider: Neetu Del Toro Consults: 04/19/25 15:49 Consult to General Surgery Routine Comment: Consulting Provider: [facility] Reason For Exam: SBO Has Provider Been Notified: Yes Date of Notification: 04/19/25 Time of Notification: 16:11 Discharge Diagnosis (1) Lower abdominal pain: (2) Abnormal CT of the abdomen: Final Diagnosis Final Discharge Diagnosis: Lower abdominal pain with concern for SBO, repeat imaging demonstrated constipation. Summary Hospital Course Hospital course: Luis Solomon is a 34-year-old male with PMHx of bronchiolitis, remote repair tracheoesophageal fistula who presented to the ED at [facility] on 04/19/25 with chief complaint of abdominal pain without emesis. At presentation,patient was hemodynamically stable, afebrile, saturating on room air. A CT scanof the abdomen pelvis was obtained and revealed mildly dilated fluid-filled distal small bowel loops with a transition point likely within the pelvis. Given the presence of these findings andconcern for small bowel obstruction, general surgery was contacted from [place]. Patient was transf erred to [facility]. Patient was given Toradol and morphine for pain. Laboratory evaluations were unremarkable CBC and chemistry. Attending documentation with NG tube placed at [place] later removed. Throughout hospital course, patient endorsed good movement of bowels. Able to tolerate p.o. well. Patient had occasional right lower quadrant pain which improved with hospital course with repeat CT imaging on 04/21 that shows no bowel obstruction. Patient will be discharged home with instructions to begin bowel regimen with MiraLAX. Patient to follow-up with general surgery as needed. Hospital course was uncomplicated. Return cautions discussed with patient prior to discharge. Patient to also follow-up with PCP. Attending Physician Attestation: I personally reviewed the history, performed the patel elements of the exam, formulated the plan of care and confirmed the written note. I agree with the findings and plan as documented in this note and have edited it if needed to reflect my findings and plan. Repeat CT abd pelvis today with no evidence of SBO. Pt tolerating diet and having BMs Cleared from surgical standpoint for discharge Parth Valdez MD Condition Condition at Discharge: Stable Time Spent with Patient Time spent providing/coordinating discharge services (# min): 34 Discharge Plan Discharge Plan Patient Disposition: Home Activity: Ambulate as Tolerated Diet: Regular Instructions: Know your Meds Prescriptions: New polyethylene glycol 3350 [HealthyLax] 17 gram Powder In Packet 17 g PO DAILY Qty: 30 0RF Continued fluticasone propionate 50 mcg/actuation spray,suspension See Rx Instructions .ROUTE .COMPLEX Qty: 48 2RF Dose Instruction: INSTILL 2 SPRAY INTO EACH NOSTRIL DAILY Rx Instructions: INSTILL 2 SPRAY INTO EACH NOSTRIL DAILY esomeprazole magnesium [Nexium] 40 mg capsule,delayed release(DR/EC) 40 mg PO DAILY 30 Days Qty: 30 5RF Rx Instructions: Take 1 capsule orally 30 minutes before morning meal and 30 minutes before evening meal. dexlansoprazole 60 mg capsule,biphase delayed releas 60 mg PO DAILY trazodone 50 mg tablet (DME) Oxygen Unit See Rx Instructions .Route Rx Instructions: As directed 3 L/M [employer] fluticasone propion-salmeterol [Advair HFA] 230-21 mcg/actuation HFA aerosol inhaler 2 inh inhalation BID 90 Days Qty: 36 3RF albuterol sulfate [Ventolin HFA] 90 mcg/actuation HFA aerosol inhaler 2 puff inhalation Q6HR PRN (Reason: Shortness Of Breath Or Wheezing) 30 Days Qty: 8.5 2RF albuterol sulfate 2.5 mg /3 mL (0.083 %) solution for nebulization 2.5 mg inhalation Q4HR PRN (Reason: Shortness Of Breath) 90 Days Qty: 360 3RF Rx Instructions: J45.50 asthma Discontinued doxycycline hyclate 100 mg tablet prednisone 10 mg tablet See Rx Instructions PO QDAY Qty: 25 0RF Rx Instructions: orally daily; 4 tablets daily for 3 days orally, 2 tablets daily for 3 days orally, 1 tablet daily for 7 days orally clarithromycin 500 mg tablet 500 mg PO BID 10 Days Qty: 20 0RF Follow Up: Jerzy Daly MD [Active Staff, General Surgery] Referral Note: Follow up as needed Neetu Del Toro NP-C [Primary Care Provider, Internal Medicine] - 04/27/25 1:30 pm Referral Note: You have been scheduled for a follow up appointment for the following date and time,please call to reschedule if needed. Prescription Drug Monitoring Program Review: Not Reviewed Exam Physical Exam Vital Signs: Temp Pulse Resp BP Pulse Ox O2 Del Method O2 Flow Rate 98.5 F 78 16 100/72 95 Room Air 3 04/21/25 12:00 04/21/25 12:00 04/21/25 12:00 04/21/25 12:00 04/21/25 12:00 04/21/25 12:00 04/21/25 04:51 Narrative: GENERAL: No apparent distress, alert, oriented, appears stated age, comfortable HEENT: NC/AT, EOMI, PERRL, conjunctiva clear, no adenopathy CARDIOVASCULAR: Regular rate and regular rhythm, no murmurs, symmetric palpable radial pulses RESPIRATORY: nonlabored work of breathing on room air, clear to auscultation bilaterally, symmetricchest rise, no wheezes/rales/rhonci ABDOMEN: Soft, non-tender, non-distended, normal bowel sounds, left-sided abdominal scar PSYCHIATRIC: Good eye contact, appropriate mood and affect, cooperative Diagnostic Studies Completed and Pending Studies Pending studies at discharge: 04/22/25 05:00 Basic Metabolic Panel [CHEM] IN AM Complete Blood Count Auto Diff IN AM 04/23/25 05:00 Basic Metabolic Panel [CHEM] IN AM Complete Blood Count Auto Diff IN AM 04/24/25 05:00 Basic Metabolic Panel [CHEM] IN AM Complete Blood Count Auto Diff IN AM Labs on day of discharge: 04/21/25 06:27: Corrected WBC 5.7, Uncorrected WBC Count 5.7, RBC 4.49, Hgb 13.1, Hct 37.9 L, MCV 84.5, MCH 29.2, MCHC 34.5, RDW 13.7, Plt Count 217, MPV 10.0, Neut % (Auto) 59.0, Lymph % (Auto) 26.5, [place] % (Auto) 10.9, Eos % (Auto) 2.5, Baso % (Auto) 1.1, Nucleat RBC Rel Count 0.1, Neut # (Auto) 3.4, Lymph # (Auto) 1.5, [place] # (Auto) 0.6, Eos # (Auto) 0.1, Baso # (Auto) 0.1, PHA Creatinine Clear 83.77, Sodium 141, Potassium 3.5, Chloride 107, Carbon Dioxide 28.1, Anion Gap 9.4, BUN 9, Creatinine 1.00, Est GFR (CKD-EPI) > 60.0, Glucose 112 H, Calcium 8.4 L Documented By: Parth Wong MD 04/21/25 13 58 Signed By: <Electronically signed by Parth Wong MD> 04/21/25 1422 <Electronically signed by DO DEMETRIA Francis> 04/21/25 1401 History & Physical Note Author Liam Ricci [facility] Date/TimeNovember 2024 6:40pm [place] [address] Hospitalist H&P Signed Patient: Luis Solomon MR#: [id number] : 1990 Acct:[id number] Age/Sex: 34 / M Adm Date: 5 Loc: Room: [address] [place] [address] Type: ADM IN Attending Dr: Liam Ricci DO Copies to: DO Neetu Castañeda, [employer]~ HPI DATE OF EXAMINATION: 04/19/25 CHIEF COMPLAINT: Abdominal pain HISTORY OF PRESENT ILLNESS: This patient is a 34-year-old male who presented to the emergency department at [facility] earlier today with a chief complaint of abdominal pain for theprior 24 hours. Described as located inthe lower abdomen and not associated with any vomiting. He has moved his bowels as recently as thismor. Complaining documentation from the ER indicates stable vital signs around 9 AM this morning temperature 97.7 this Fahrenheit, heart rate 75 bpm, respirations 18/min, blood pressure 96/83 mmHg, 97% pulse oximetry on room air. A CT scan ofthe abdomen pelvis was obtained and revealed mildly dilated fluid-filled distal small bowel loops with a transition point likely within the pelvis. Previously noted brown the ectasis within his history is again noted on the CT as well. Given the presence of these findings concerning for SBO General Surgery was contacted from [place]. Agreed to see the patient upon transfer. Toradol and morphine were provided for pain. Laboratory evaluation reveals an unremarkable CBC and chemistries. Urinalysis also benign. Patient was accepted under the hospitalist service here at [facility]. Patient arrives in hemodynamically stable condition. Attending documentation suggest an NG tube wasplaced. When I inquire in regards to this the patient states that it was in for roughly half hour but he told them to take it out. Physical Examination: GENERAL APPEARANCE: Alert, up in bed AAOx3 CARDIAC: Normal S1 and S2. No S3, S4 or murmurs. LUNGS: Clear to auscultation bilaterally. no wheeze/rhonchi/rales ABDOMEN: Surgical scarring anterior superior abdomen, mild rigidity and guardingthroughout, no rebound tenderness elicited, no signs of acute abdomen MUSCULOSKELETAL: No joint erythema or tenderness. EXTREMITIES: No clubbing, cyanosis or edema NEUROLOGICAL: No focal deficits SKIN: Skin normal color, texture and turgor with no lesions or eruptions. PSYCHIATRIC: Appropriate mood and affect Assessment and plan: 1. Small bowel obstruction Consult to general surgery. Aggressive IV fluid resuscitation with lactated Ringer's. An NG tube was placed at outside hospital however patient had this removed. He may require this to be placed again. I cautioned him of this and instructed him to limit his oral intake significantly with the clear liquid dietordered. 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 He has a large area of scar tissue in the upper mid abdomen from this visible onexam. 2. Bronchiectasis Continue nebulized albuterol as needed. 3. 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 Born 6 weeks early. Recovering alcoholic CLEAN SINCE 2019 Dysphagia History of pneumonia History of bronchitis History of prematurity Surgical History History of facial surgery PLASTIC SURGERY RIGHT SIDE OF FACE Status post insertion of percutaneous endoscopic gastrostomy (PEG) tube CHILD Family History Mother Diabetes Social History Smoking Status: Former smoker Tobacco Type: cigarettes Substance Use Type: Marijuana Substance Abuse Comment: MARIJUANA 2x weekly, smoke, last smoked 04-01-23 Social History Comments: mobile home Meds Medications and Allergies Allergies Penicillins Allergy (Unknown, Verified 04/09/25 09:01) Hives Home Medications Advair HFA 230 mcg-21 mcg/actuation aerosol inhaler (fluticasone propion- salmeterol) 2 inh inhalation BID 90 days #36 grams 10/07/24 [Rx Confirmed 04/09/25] Oxygen 10/07/24 [History Confirmed 04/09/25] fluticasone propionate 50 mcg/actuation nasal spray,suspension See Rx Instructions .Route .COMPLEX #48 mL 11/03/24 [Rx Confirmed 04/09/25] esomeprazole magnesium 40 mg capsule,delayed release (Nexium) 40 mg PO DAILY 30 days #30 caps 02/13/25 [Rx Confirmed 04/09/25] albuterol sulfate 2.5 mg/3 mL (0.083 %) solution for nebulization 2.5 mg (3 mL) inhalation Q4HR PRNShortness Of Breath 90 days #360 mL 04/09/25 [Rx Confirmed 04/19/25] albuterol sulfate 90 mcg/actuation aerosol inhaler (Ventolin HFA) 2 puff inhalation Q6HR PRN Shortness Of Breath Or Wheezing 30 days #8.5 grams 04/09/25 [Rx Confirmed 04/19/25] clarithromycin 500 mg tablet 500 mg PO BID 10 days #20 tabs 04/09/25 [Rx Confirmed 04/09/25] prednisone 10 mg tablet See Rx Instructions PO QDAY #25 tabs 04/09/25 [Rx Confirmed 04/09/25] dexlansoprazole 60 mg capsule,biphase delayed release 60 mg PO DAILY 04/19/25 [History Confirmed 04/19/25] doxycycline hyclate 100 mg tablet mg 04/19/25 [History] trazodone 50 mg tablet mg 04/19/25 [History] Exam Physical Exam Vital Signs: Temp Pulse Resp BP Pulse Ox O2 Del Method 98.6 F 69 22 115/77 96 Room Air 04/19/25 15:35 04/19/25 15:35 04/19/25 15:35 04/19/25 15:35 04/19/25 15:35 04/19/25 15:35 Assessment & Plan Assessment/Plan (1) Bronchiectasis: Plan . IP vs OBS Justification Based on differential dx, clinical care plan, and risk of adverse events, if untreated, in my clinical judgement this patient requires an acute care setting as: INPATIENT because of an expectation ofan over 2 midnight stay. Estimated length of stay (# of days): 3 Documented By: Liam Ricci DO 04/19/25 16 44 Signed By: <Electronically signed by Liam Ricci DO> 04/19/25 1840 Progress Note Author Parth Wong [facility]Note Date/TimeNovember 2024 12:24pm [place] [address] Hospitalist Progress Note Signed Patient: Luis Solomon MR#: [id number] : 1990 Acct:[id number] Age/Sex: 34 / M Adm Date: 5 Loc: 4N Room: 9C4054-9 Type: ADM IN Attending Dr: Parth Wong MD Copies to: ~ Date of Service: 04/20/2025 Subjective Subjective Narrative: Patient seen and evaluated resting in bed. Patient endorses bowel movement thismorning. States he is willing to try oral intake, will defer to general surgeryrecommendations. Patient notes improvement in abdominal discomfort, still with occasional right lower quadrant pain but has generally decreased in severity. Of note, patient has history of prior abdominal operations including an infancy and at 10 years of age for what he describes a tracheoesophageal fistula. Patient does have well-healed abdominal incision noted left abdomen. Exam Physical Exam Vital Signs: Temp Pulse Resp BP Pulse Ox O2 Del Method O2 Flow Rate 98.1 F 87 18 113/68 98 Nasal Cannula 3 04/20/25 08:27 04/20/25 08:27 04/20/25 08:27 04/20/25 08:27 04/20/25 08:27 04/20/25 08:27 04/20/25 08:27 Narrative: GENERAL: No apparent distress, alert, oriented, appears stated age, comfortable HEENT: NC/AT, EOMI, PERRL, conjunctiva clear, no adenopathy CARDIOVASCULAR: Regular rate and regular rhythm, no murmurs, symmetric palpable radial pulses RESPIRATORY: nonlabored work of breathing on room air, clear to auscultation bilaterally, symmetricchest rise, no wheezes/rales/rhonci ABDOMEN: Soft, mild tenderness to palpation of right lower quadrant, non- distended, normal bowel sounds, left-sided abdominal scar PSYCHIATRIC: Good eye contact, appropriate mood and affect, cooperative Objective Lab Results 04/20/25 06:11 04/20/25 06:11 Meds Allergies and Active Meds Allergies Penicillins Allergy (Unknown, Verified 04/09/25 09:01) Hives Active Meds: Active Medications Generic Name Dose Route Start Last Admin Trade Name Jed PRN Reason Stop Dose Admin Albuterol 2.5 mg 04/19/25 17:11 04/20/25 05:40 Albuterol Neb 2.5 Mg/3 Ml Vial.Neb INHALATION 04/19/26 17:10 2.5 mg Q4HR PRN Administration Shortness Of Breath Enoxaparin Sodium 40 mg 04/20/25 10:00 04/20/25 09:57 Enoxaparin 40 Mg/0.4 Ml Syringe SUBCUT 04/20/26 09:59 40 mg DAILY@10 AMA Administration Lactated Ringer's 1,000 mls @ 150 mls/hr 04/19/25 16:00 04/20/25 08:17 Lactated Ringers IV 04/20/25 12:22 150 mls/hr .Q6H40M AMA Administration Morphine Sulfate 4 mg 04/19/25 17:11 Morphine Sulfate 4 Mg/Ml Cartridge IV-PUSH Q3H PRN Severe Pain Ondansetron HCl 4 mg 04/19/25 17:11 Ondansetron 4 Mg/2 Ml Vial IV-PUSH 04/19/26 17:10 Q4H PRN Nausea And Vomiting Pantoprazole Sodium 40 mg 04/19/25 17:15 04/20/25 08:19 Pantoprazole 40 Mg Vial IV-PUSH 04/19/26 17:14 40 mg DAILY AMA Administration Sodium Chloride 10 ml 04/19/25 17:13 04/20/25 08:19 Sodium Chloride 0.9 % 10 Ml Vial.Pf INJECTION 04/19/26 17:12 10 ml PRN PRN Administration Dilution Sodium Chloride 10 ml 04/19/25 17:13 Sodium Chloride 0.9 % 10 Ml Syringe IV-PUSH 04/19/26 17:12 PRN PRN Flush A&P - Hospitalist Assessment/Plan (1) Small bowel obstruction due to adhesions: (2) Bronchiectasis: Plan 1. Small bowel obstruction NG tube initially placed at outside hospital, patient has been able to tolerate oral clear liquids.No further episodes of emesis nor nausea Patient with aggressive IV fluid resuscitation with lactated Ringer's, 3 L Patient endorses BM today Consult to general surgery, appreciate your involvement in this case 2. Bronchiectasis Continue nebulized albuterol as needed Other chronic medical conditions noted below, continue home regimens unless otherwise specified: GERD, Protonix daily DVT PPx: Lovenox Diet: Clear liquid CODE STATUS: Full Dispo: Inpatient, stable. Likely discharge home tomorrow given clinical improvement Plan of care Discussed with: the medical team, the patient Attending Physician Attestation: I personally reviewed the history, performed the patel elements of the exam, formulated the plan of care and confirmed the written note. I agree with the findings and plan as documented in this note and have edited it if needed to reflect my findings and plan. Patient with history of tracheoesophageal fistula, remote surgical repair. SBO- improving-General Surgery on board, advance diet as per Gen.surg recommendation Parth Valdez MD Documented By: Parth Wong MD 04/20/25 12 10 Signed By: <Electronically signed by Parth Wong MD> 04/20/25 1224 <Electronically signed by DO DEMETRIA Francis> 04/20/25 1216 Progress Note Author Parth Wong [facility] HospitalNote Date/TimeNov2024 11:28am [place] [address] Hospitalist Progress Note Signed Patient: Luis Solomon MR#: [id number] : 1990 Acct:[id number] Age/Sex: 34 / M Adm Date: 5 Loc: 4N Room: [address] [place] [address] Type: ADM IN Attending Dr: Parth Wong MD Copies to: ~ Date of Service: 04/21/2025 Subjective Subjective Narrative: Patient seen and evaluated resting in bed. Patient endorses bowel movement thismorning with small caliber. Patient is seen clutching right lower abdomen. States he is having right sided abdominal pain. No guarding no rebound appreciated on examination today. Last night, patient had [employer] and states went right through and having immediate diarrhea or loose stools. Exam Physical Exam Vital Signs: Temp Pulse Resp BP Pulse Ox O2 Del Method O2 Flow Rate 97.8 F 75 18 104/60 94 L Room Air 3 04/21/25 08:00 04/21/25 10:03 04/21/25 10:03 04/21/25 08:00 04/21/25 08:00 04/21/25 08:00 04/21/25 04:51 Narrative: GENERAL: No apparent distress, alert, oriented, appears stated age, comfortable HEENT: NC/AT, EOMI, PERRL, conjunctiva clear, no adenopathy CARDIOVASCULAR: Regular rate and regular rhythm, no murmurs, symmetric palpable radial pulses RESPIRATORY: nonlabored work of breathing on room air, clear to auscultation bilaterally, symmetricchest rise, no wheezes/rales/rhonci ABDOMEN: Soft, TTP right lower quadrant, non-distended, normal bowel sounds, left-sided abdominal scar PSYCHIATRIC: Good eye contact, appropriate mood and affect, cooperative Objective Lab Results 04/21/25 06:27 04/21/25 06:27 Meds Allergies and Active Meds Allergies Penicillins Allergy (Unknown, Verified 04/09/25 09:01) Hives Active Meds: Active Medications Generic Name Dose Route Start Last Admin Trade Name Freq PRN Reason Stop Dose Admin Albuterol 2.5 mg 04/19/25 17:11 04/21/25 10:02 Albuterol Neb 2.5 Mg/3 Ml Vial.Neb INHALATION 04/19/26 17:10 2.5 mg Q4HR PRN Administration Shortness Of Breath Enoxaparin Sodium 40 mg 04/20/25 10:00 04/21/25 09:42 Enoxaparin 40 Mg/0.4 Ml Syringe SUBCUT 04/20/26 09:59 40 mg DAILY@10 AMA Administration Morphine Sulfate 4 mg 04/19/25 17:11 04/21/25 09:48 Morphine Sulfate 4 Mg/Ml Cartridge IV-PUSH 2 mg Q3H PRN Administration Severe Pain Ondansetron HCl 4 mg 04/19/25 17:11 04/21/25 09:44 Ondansetron 4 Mg/2 Ml Vial IV-PUSH 04/19/26 17:10 4 mg Q4H PRN Administration Nausea And Vomiting Pantoprazole Sodium 40 mg 04/19/25 17:15 04/21/25 09:44 Pantoprazole 40 Mg Vial IV-PUSH 04/19/26 17:14 40 mg DAILY AMA Administration Sodium Chloride 10 ml 04/19/25 17:13 04/20/25 08:19 Sodium Chloride 0.9 % 10 Ml Vial.Pf INJECTION 04/19/26 17:12 10 ml PRN PRN Administration Dilution Sodium Chloride 10 ml 04/19/25 17:13 Sodium Chloride 0.9 % 10 Ml Syringe IV-PUSH 04/19/26 17:12 PRN PRN Flush A&P - Hospitalist Assessment/Plan (1) Small bowel obstruction due to adhesions: (2) Bronchiectasis: Plan 1. Small bowel obstruction NG tube initially placed at outside hospital, patient has been able to tolerate oral clear liquids.No further episodes of emesis nor nausea Patient with aggressive IV fluid resuscitation with lactated Ringer's, 3 L Patient endorses BM today as well as yesterday Diet advanced, patient with abdominal discomfort following meal. No emesis. Consult to general surgery, appreciate your involvement in this case - due to persistence of RLQ pain, plan to re-image with CT abd/pelvis today. Preliminary imaging was done at OSH 2. Bronchiectasis Continue nebulized albuterol as needed 3. h/o tracheoesophageal fistula, remote surgical repair Other chronic medical conditions noted below, continue home regimens unless otherwise specified: GERD, Protonix daily DVT PPx: Lovenox Diet: Regular CODE STATUS: Full Dispo: Inpatient, stable. Patient with persistence of abdominal abdominal discomfort, dispo pendingclinical improvement Plan of care Discussed with: the medical team, the patient Attending Physician Attestation: I personally reviewed the history, performed the patel elements of the exam, formulated the plan of care and confirmed the written note. I agree with the findings and plan as documented in this note and have edited it if needed to reflect my findings and plan. Parth Valdez MD Documented By: Parth Wong MD 04/21/25 11 09 Signed By: <Electronically signed by Parth Wong MD> 04/21/25 1128 <Electronically signed by DO DEMETRIA Francis> 04/21/25 1113 Progress Note Author Jerzy Daly [facility]Note Date/TimeNovember 2024 12:43pm [place] [address] General Surgery Progress Note Signed Patient: Luis Solomon MR#: [id number] : 1990 Acct:[id number] Age/Sex: 34 / M Adm Date: 5 Loc: 4N Room: [address] [place] [address] Type: ADM IN Attending Dr: Parth Wong MD Copies to: ~ Date of Service: 04/21/2025 Subjective Subjective HPI: Patient been admitted last night and had a large bowel movement. He has been tolerating food. He passed a little bit of flatus. He had small bowel movements today. He denies vomiting. Complains of having some pain still in the right lower abdomen. Patient did have a repeat CT scan performed today. This did not show any bowel obstruction. Past abdominal surgery includes gastrostomy tube as a child. He also had surgery for T-E fistula asa child. He has bronchiectasis. Follows with Dr. Fuller. . Allergies & Medications Medications and Allergies Allergies Penicillins Allergy (Unknown, Verified 04/09/25 09:01) Hives Home Medications Advair HFA 230 mcg-21 mcg/actuation aerosol inhaler (fluticasone propion- salmeterol) 2 inh inhalation BID 90 days #36 grams 10/07/24 [Rx Confirmed 04/09/25] Oxygen 10/07/24 [History Confirmed 04/09/25] fluticasone propionate 50 mcg/actuation nasal spray,suspension See Rx Instructions .Route .COMPLEX #48 mL 11/03/24 [Rx Confirmed 04/09/25] esomeprazole magnesium 40 mg capsule,delayed release (Nexium) 40 mg PO DAILY 30 days #30 caps 02/13/25 [Rx Confirmed 04/09/25] albuterol sulfate 2.5 mg/3 mL (0.083 %) solution for nebulization 2.5 mg (3 mL) inhalation Q4HR PRNShortness Of Breath 90 days #360 mL 04/09/25 [Rx Confirmed 04/19/25] albuterol sulfate 90 mcg/actuation aerosol inhaler (Ventolin HFA) 2 puff inhalation Q6HR PRN Shortness Of Breath Or Wheezing 30 days #8.5 grams 04/09/25 [Rx Confirmed 04/19/25] clarithromycin 500 mg tablet 500 mg PO BID 10 days #20 tabs 04/09/25 [Rx Confirmed 04/09/25] prednisone 10 mg tablet See Rx Instructions PO QDAY #25 tabs 04/09/25 [Rx Confirmed 04/09/25] dexlansoprazole 60 mg capsule,biphase delayed release 60 mg PO DAILY 04/19/25 [History Confirmed 04/19/25] doxycycline hyclate 100 mg tablet mg 04/19/25 [History] trazodone 50 mg tablet mg 04/19/25 [History] Active Medications Albuterol (Albuterol Neb 2.5 Mg/3 Ml Vial.Neb) 2.5 mg INHALATION Q4HR PRN PRN Reason: Shortness Of Breath Stop: 04/19/26 17:10 Last Admin: 04/21/25 10:02 Dose: 2.5 mg Enoxaparin Sodium (Enoxaparin 40 Mg/0.4 Ml Syringe) 40 mg SUBCUT DAILY@10 [facility] Stop: 04/20/26 09:59 Last Admin: 04/21/25 09:42 Dose: 40 mg Morphine Sulfate (Morphine Sulfate 4 Mg/Ml Cartridge) 4 mg IV-PUSH Q3H PRN PRN Reason: Severe Pain Last Admin: 04/21/25 09:48 Dose: 2 mg Ondansetron HCl (Ondansetron 4 Mg/2 Ml Vial) 4 mg IV-PUSH Q4H PRN PRN Reason: Nausea And Vomiting Stop: 04/19/26 17:10 Last Admin: 04/21/25 09:44 Dose: 4 mg Pantoprazole Sodium (Pantoprazole 40 Mg Tablet.Dr) 40 mg PO DAILY [facility] Stop: 04/22/26 08:59 Exam Physical Exam Vital Signs: Temp Pulse Resp BP Pulse Ox O2 Del Method O2 Flow Rate 97.8 F 75 18 104/60 94 L Room Air 3 04/21/25 08:00 04/21/25 10:03 04/21/25 10:03 04/21/25 08:00 04/21/25 08:00 04/21/25 08:00 04/21/25 04:51 Const General: cooperative and no acute distress Resp Auscultation: clear to auscultation bilaterally Cardio Rate: regular rate Rhythm: regular rhythm GI Inspection: non-distended Palpation: soft, no guarding and tender (Mild tenderness lower mid abdomen) Neuro General: patient alert and patient awake Objective Pain Assessment Abdomen: Pain Description: Intermittent and Tender Pain Intensity: 7 Intake & Output 24 hour I&O: Intake & Output 04/20/25 04/21/25 04/21/25 23:59 07:59 15:59 Intake Total 2500 / 4500 1800 / 1800 Output Total 2875 / 4275 1000 / 1000 Balance -375 / 225 800 / 800 Weight 57.1 kg Labs 04/21/25 06:27 04/21/25 06:27 Laboratory Results - Last 48 hrs. 04/21/25 06:27: Corrected WBC 5.7, Uncorrected WBC Count 5.7, RBC 4.49, Hgb 13.1, Hct 37.9 L, MCV 84.5, MCH 29.2, MCHC 34.5, RDW 13.7, Plt Count 217, MPV 10.0, Neut % (Auto) 59.0, Lymph % (Auto) 26.5, [place] % (Auto) 10.9, Eos % (Auto) 2.5, Baso % (Auto) 1.1, Nucleat RBC Rel Count 0.1, Neut # (Auto) 3.4, Lymph # (Auto) 1.5, [place] # (Auto) 0.6, Eos # (Auto) 0.1, Baso # (Auto) 0.1, PHA Creatinine Clear 83.77, Sodium 141, Potassium 3.5, Chloride 107, Carbon Dioxide 28.1, Anion Gap 9.4, BUN 9, Creatinine 1.00, Est GFR (CKD-EPI) > 60.0, Glucose 112 H, Calcium 8.4 L 04/20/25 06:11: Corrected WBC 8.1, Uncorrected WBC Count 8.1, RBC 4.54, Hgb 13.2, Hct 38.5 L, MCV 84.7, MCH 29.2, MCHC 34.4, RDW 13.6, Plt Count 196, MPV 10.1, Neut % (Auto) 67.0, Lymph % (Auto) 21.6, [place] % (Auto) 8.2, Eos % (Auto) 2.1, Baso % (Auto) 1.1, Nucleat RBC Rel Count 0.0, Neut # (Auto) 5.4, Lymph # (Auto) 1.8, [place] # (Auto) 0.7, Eos # (Auto) 0.2, Baso # (Auto) 0.1, PT 12.6, INR 1.1, APTT 30.1, PHA Creatinine Clear 107.40, Sodium 138, Potassium 3.7, Chloride 108 H, Carbon Dioxide 26.2, Anion Gap 7.5, BUN 5 L, Creatinine 0.78, Est GFR (CKD-EPI) > 60.0, Glucose 96, Calcium 8.1 L A&P - General Surgery Assessment/Plan (1) Lower abdominal pain: (2) Abnormal CT of the abdomen: Plan Follow-up CT scan today shows no bowel obstruction. Patient is eating and having bowel movements. Patient does not have an acute surgical abdomen. Can start a bowel regimen with MiraLAX. When discharged, can follow-up with me as needed. Documented By: Jerzy Daly MD 04/21/25 124 Signed By: <Electronically signed by MD Jerzy Daly> 04/21/25 7731
[2025-04-27] VITALS (7 sets, daily range): BP systolic 123; BP diastolic 66; PULSE 90–100; TEMP 36.8; O2SAT 93–97; BMI 22.9
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
--- NOTE | 2025-04-27 13:58 | XR_ITS ---
[facility] [place] [id number] Patient Name: FRANCIS GALVEZ MRN: [id number] date: 1990 Sex: M Assigned Patient Location: ER Current Patient Location: ER Accession/Order Number: [id number] Exam Date: 04/27/2025 14:04 Report Date: 04/27/2025 14:13 At the request of: KYLIE COSTA MD Procedure: XR chest 1V Single view chest: CLINICAL HISTORY: sob COMPARISON: Chest 04/19/2025, 04/05/2025 FINDINGS: Heart and mediolateral structures appear unchanged. Chronic interstitial changes similar to the prior study with likely trace pleural effusions. No pneumothorax or free air. Prominent right hilar region, unchanged. XR/XR chest 1V IMPRESSION: NO SIGNIFICANT CHANGE IN CHEST FINDINGS. Impression dictated by: Robert Brennan Jr., D.O. 04/27/2025 2:13 PM Dictation Location: [place] [address] Electronically authenticated by: [id number] Y Date: 04/27/2025 14:13
--- NOTE | 2025-04-27 13:58 | ECG_ITS ---
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
--- OUTSIDE RECORDS SUMMARY | 2025-04-27 13:58 | XMS_ITS | Patient Health Record ---
Author Organization [facility] Address [address] [place] [address] Care Team Providers Care Ergonomic Specialist Name Role Phone Dr. Robert Lang Primary Care Provider Zee Wolff Unavailable [phone] Daphne Yu Unavailable [phone] Veronique Johnson Unavailable [phone] Reason For Referral No Information Medications Medication SIG (Take, Route, Frequency, Duration) Notes Start Date End Date Status Ibuprofen 800 MG Tablet 1 tablet with fo od or milk as needed Orally Three times a day 10/12/2020ctiveIbuprofen 800 MG Tablet1 tablet with food or milk as needed Orally Three times a day09/29/2020ctive Encounters Encounter Location Date Provider Diagnosis [facility] [address] [place] [address] 02/19/2025 Veronique Johnson Encounter for dental examination and cleaning with abnormal findings Z01.21 ; Other dental procedure status Z98.818 ; Dental caries on pit and fissure surface penetrating into dentin K02.52 ; Partial loss of teeth, unspecified cause, class I K08.401 and Acute gingivitis, plaque induced K05.00 [facility] [address] [place] [address] 02/20/2025 Zee New Chronic gingivitis, plaque induced K05.10 [facility] [address] [place] [address] 02/23/2025 Robert Lang Assessments Encounter Date Diagnosis (ICD Code) Assessment Notes Treatment Notes Treatment Clinical Notes Section Notes 02/19/2025 Encounter for dental examination and cleaning with abnormal findings (ICD-10 - Z01.21) 5Chronic gingivitis, plaque induced (ICD-10 - K05.10)02/19/2025Other dental procedure status (ICD-10 - Z98.818)02/19/2025Dental caries on pit and fissure surface penetrating into dentin (ICD-10 - K02.52)02/19/2025Partial loss of teeth, unspecified cause, class I (ICD-10 - K08.401)5Acute gingivitis, plaque induced (ICD-10 - K05.00) Plan Of Treatment Next Appt Details Provider Name:Veronique Elizabeth, 09/2024 11:00:00 AM, [address], [place], [address], Provider Name:Veronique Johnson, 04/2025 11:15:00 AM, [address], [place], [address], Provider Name:Zeemarleni Wolff , 10/02/2025 02:00:00 PM, [address], [place], [address], Insurance Providers Payer Name Payer Address Payer Phone Subscriber Number Group Number Insured Name Patient Relationship to Insured Coverage Start Date Coverage End Date [facility] [address] [place] [address] [phone] [id number] Elinor GALVEZ - patient is the [id number] 2022MEDICAID SEC TO [facility] [address] [place] [id number], TROYSelf - patient is the [id number] 2022ETNA MEDICAREPO [address] [address] [place] [address] [id number], TROYSelf - patient is the [id number] 2020 DENTAL [place] [address] [place] [id number] Elinor GALVEZ - patient is the [id number] 2020
--- OUTSIDE RECORDS SUMMARY | 2025-04-27 13:59 | XMS_ITS | Clinical Summary ---
Author Organization [facility] Address [address] [place] [address] Care Team Providers Care Rn Float Name Role Phone Neetu Del Toro CHANDRIKA Primary Care Provider [phone] Allergies No known active allergies Medications MedicationSigDispense QuantityRefillsLast FilledStart DateEnd DateStatus albuterol 90 mcg/actuation inhaler INHALE 2 PUFFS INTO THE LUNGS EVERY 6 HOURS NEEDED FOR 90 DAYS07/11/2023 Active traZODone (Desyrel) 50 mg tablet TAKE 1 TABLET BY MOUTH ONCE A DAY AT BEDTIME ZKVSSR2009/12/2023ctive escitalopram (Lexapro) 10 mg tablet TAKE 1/2 TAB BY MOUTH DAILY FOR FIRST WEEK,THEN INCREASE TO 1 TABLET BY MOUTH DAILY09/12/2023ctive nebulizer and compressor device 1 Device.09/08/2016Active dexlansoprazole (Dexilant) [address] capsule Take 1 capsule by mouth in the morning.04/03/2023ctive Active Problems ProblemNoted DateDiagnosed DateAcute exacerbation of chronic obstructive pulmonary pzscswf7501/21/2024lcohol use kdbhfosb23/26/9896Gtwepxt13/26/2024 Aspiration into lower respiratory tract01/21/2024cute on chronic respiratory failure with wjcupuitd60/26/2024losed head avncea2401/21/2024oronavirus okltmnwqx20/26/0131Byolx54/26/2024History of kebtucyhsyttpi77/26/2024Influenza A 01/21/2024Moderate persistent asthma, brcfpulvkpnkw66/26/2024arainfluenza 01/21/2024olysubstance rmuqifzvld79/26/2024ossible exposure to STD01/21/2024 Tracheo-esophageal xkzyrls6001/21/2024Viral URI01/21/20248562Dalbcbhezil31/30/2024 Dyspnea on rvokmxoc21/30/2024bnormal EKG009/25/20236958Ysbwumgqxtjl64/30/2024Sleep apnea09/25/2023ronchiectasis without thrmtjnhtutq27/30/2024Tobacco abuse 09/25/2023lcohol abuse09/25/2023peristalsis of apeawczqh28/08/2017 Overview (01/21/2024): Congenital TEF s/p repair day [...] with Dr. Brennan or Dr. Colbert - [facility] 30 degrees. - Advance diet. Aspiration foxktcvjz30/03/2017 Overview (01/21/2024): S/t chronic diminished esophageal motility [...] GrandmotherDeceased Social History Tobacco UseTypesPacks/DayYears UsedDateSmoking Tobacco: CvawxfHtzzrgbdkt798 06/28/2013 - 06/28/2023Smokeless Tobacco: CurrentChewAlcohol UseStandard Drinks/WeekCommentsNever0 (1 standard drink = 0.6 oz pure alcohol)quit 2 weeks agoUT Safety & EnvironmentAnswerDate RecordedFear of Current or Ex-PartnerNot on file09/19/2023Emotionally AbusedNot on file09/19/2023hysically AbusedNot on file09/19/2023Sexually AbusedNot on file09/19/2023hysically or Sexually Abused Not on file09/19/2023Sex and Gender InformationValueDate RecordedSex Assigned at BirthNot on fileLegal DlrLtkd1509/19/2023 1:06 PM EDTGender IdentityNot on file Sexual OrientationNot on file Last Filed Vital Signs Vital SignReadingTime TakenCommentsBlood Hkvjquxd469/7804 1:42 PM EDT Pmjnt971109/25/2023 1:42 PM EDTTemperature--Respiratory Wumh588909/25/2023 1:42 PM EDTOxygen Sjhyumcsyf65%09/25/2023 1:42 PM EDTInhaled Oxygen Concentration-- Efhaxw76.9 kg (118 lb 12.8 oz)09/25/2023 1:42 PM PLXPlhmct897 cm (5' 3 ) 09/25/2023 1:42 PM EDTBody Mass Index21.04009/25/2023 1:42 PM EDT Plan of Treatment Health MaintenanceDue DateLast DoneCommentsMedicare Annual Wellness (AWV) 1990Depression Oidljudlt48/03/2003Varicella Vaccines (1 of 2 - 13+ 2-dose series)08/29/2003Hepatitis B Vaccines (1 of 3 - 19+ 3-dose series)2009HPV Vaccines (1 - 3-dose SCDM series)2017COVID-19 Vaccine (1 - 2024- season) 2025Influenza Vaccine (#1)510/Adult Rbveeqc8204/14/2032 2Pneumococcal Vaccine: Pediatrics (0 to 5 Years) [...] MemberRelationshipSpecialtyStart DateEnd Date Neetu Del Toro CNP [address] [place] [address], [place] [address] PCP - GeneralFamily Medicine09/24/23
--- OUTSIDE RECORDS SUMMARY | 2025-04-27 13:59 | XMS_ITS | Clinical Summary ---
Author Organization [facility] Address [address] [place] [address] Care Team Providers Care Incinerator Plant General Supervisor Name Role Phone Unavailable Primary Care Provider Unavailabl e Social History Tobacco UseTypesPacks/DayYears UsedDateSmoking Tobacco: Never AssessedSex and Gender InformationValueDate RecordedSex Assigned at BirthNot on fileLegal Sex Male08/09/2022 6:58 PM EDTGender IdentityNot on fileSexual OrientationNot on file Plan of Treatment Not on file Insurance * Guarantor: Luis Solomoncoronen TypeRelation to PatientDate of BirthPhone Billing AddressPersonal/DtmlqmDnbb11/03/1991 [address] [place] [address]
--- OUTSIDE RECORDS SUMMARY | 2025-04-27 13:59 | XMS_ITS | Clinical Summary ---
Author Organization [facility] Address [address] [place] [address] Phone Care Team Providers Care Manager Distribution Center Name Role Phone Unavailable Primary Care Provider Unavailabl e Social History Tobacco UseTypesPacks/DayYears UsedDateSmoking Tobacco: Never AssessedSex and Gender InformationValueDate RecordedSex Assigned at BirthNot on fileLegal Sex Male04/22/2022 8:07 AM ESTGender IdentityNot on fileSexual OrientationNot on file Plan of Treatment Not on file
--- OUTSIDE RECORDS SUMMARY | 2025-04-27 14:01 | XMS_ITS | Patient Health Record ---
Author Organization The [facility] in [place] Address [address] [place] [address] Care Team Providers Care Family Support Worker Name Role Phone Neetu Barboza Primary Care Provider [phone] James Elkins [phone] Allergies Allergen (clinical drug ingredient) Drug/Non Drug Allergy documented on EMR Reaction Allergy Type Onset Date Status naproxen Naproxen unknown Drug Allergy ActivePenicillinUnknownDrug AllergyActive Results Component Value Reference Range Notes CBC AUTO DIFF Reviewed date:05/08/2024 09:48:13 AM Interpretation: Performing Lab: Notes/Report: [facility] , White Blood Count 16.3 4.0-11.0 10 3/uL Red Blood Count5.174.70-6.10 10 6/eYMrlorjpbzn51.514.0-18.0 g/pPCrakfgdusp09.5 42.0-54.0 %Mean Corpuscular Pgjelm86.980.0-94.0 fLMean Corpuscular Hemoglobin 30.025.9-34.0 pgMean Corpuscular HGB Conc33.329.9-35.2 g/dLRed Cell Distribution Width12.511.0-15.0 %Platelet Pfvrd714127-914 10 3/uLMean Platelet Ipcuwt33.69.5- 13.5 fLNeutrophils Percent Auto82.243.0-75.0 %Lymphocytes Percent Auto9.220.5- 60.0 %Monocytes Percent Auto7.01.7-12.0 %Eosinophils Percent Auto0.60.9-7.0 % Basophils Percent Auto0.70.2-2.0 %Immature Granulocytes Pct Auto0.30.0-0.5 % Neutrophils Absolute Auto13.41.4-6.5 10 3/uLLymphocytes Absolute Auto1.51.2-3.8 10 3/uLMonocytes Absolute Auto1.10.3-0.8 10 3/uLEosinophils Absolute Auto0.10.0- 0.7 10 3/uLBasophils Absolute Auto0.10.0-0.1 10 3/uLImmature Granulocytes Abs Auto0.050.00-0.03 10 3/uLPerforming Lab:see note - [facility] LB LACTATE or LACTIC ACID Reviewed date:05/08/2024 09:48:13 AM Interpretation: Performing Lab: Notes/Report: [facility] ,Lactate/Lactic Acid2.30.4-2.0 mmol/LRESULTS CALLED TO DR COSTA/ERPerforming Lab: see note - [facility] LBBlood Culture 1 Reviewed date:05/13/2024 04:18:23 PM Interpretation: Performing Lab: Notes/Report: [facility] ,Blood Culture 1See Below For Report Blood Culture 1 NG5D NO GROWTH AT 5 DAYS. Performing Lab:see note - [facility] LBBlood Culture 2 Reviewed date:05/13/2024 04:18:23 PM Interpretation: Performing Lab: Notes/Report: [facility] ,Blood Culture 2See Below For Report Blood Culture 2 NG5D NO GROWTH AT 5 DAYS. Performing Lab:see note - [facility] LBLACTATE or LACTIC ACID Reviewed date:05/08/2024 11:23:40 AM Interpretation: Performing Lab: Notes/Report: [facility] ,Lactate/Lactic Acid1.10.4-2.0 mmol/LPerforming Lab:see note - [facility] LBWhite Blood Cells Reviewed date:05/12/2024 06:14:45 [...] ,Result 2See Below For Report Result 2 CORONARY CARE UNIT NURSE Performing Lab:see noteLC - [facility] LBResult 3 Reviewed date:05/12/2024 06:14:45 PM Interpretation: Performing Lab: Notes/Report: [facility] ,Result 3See Below For Report Result 3 CORONARY CARE UNIT NURSE Performing Lab:see note - [facility] LBResult 4 Reviewed date:05/12/2024 06:14:45 PM Interpretation: Performing Lab: Notes/Report: [facility] ,Result 4See Below For Report Result 4 CORONARY CARE UNIT NURSE Performing Lab:see note - [facility] LBGram Stain [...] WILL FOLLOW Lower Respiratory CulturePerformed at: - [facility] Lower Respiratory Culture WILL FOLLOW Lower Respiratory [address] [place], [place] [id number] Lower Respiratory Culture WILL FOLLOW Lower Respiratory CultureLab Director: Yonny Pa PhD, Phone: [phone] Lower Respiratory Culture WILL FOLLOW Performing Lab:see note LC - [facility] LB SEE REPORT - Basket Maker Id information not found for OBX-specific broadcast producer legend Blood Culture 1 Reviewed date:05/19/2024 08:28:39 AM Interpretation: Performing Lab: Notes/Report: [facility] ,Blood Culture 1See Below For Report Blood Culture 1 NG5D NO GROWTH AT 5 DAYS. Performing Lab:see noteML - [facility] LBBlood Culture 2 Reviewed date:05/19/2024 08:28:39 AM Interpretation: Performing Lab: Notes/Report: [facility] ,Blood Culture 2See Below For Report Blood Culture 2 NG5D NO GROWTH AT 5 DAYS. Performing Lab:see noteML - [facility] LBCT angio chest Reviewed date:05/13/2024 12:17:06 PM Interpretation: Performing Lab: Notes/Report: Source Facility: [place] [address] [place] [address] CT Scan Report Signed Patient: LUIS SOLOMON MR#: [id number] : 1990 Acct:[id number] Age/Sex: 33 / M ADM Date: 05/13/24 Loc: [place] 203-[address]: Maryanne Elkins M.D. Ordering Physician: Maryanne Elkins M.D. Date of Service: 05/13/24 Procedure(s): CT angio chest Accession Number(s): [id number] cc: NEETU BARBOZA [place] [address] Patient Name: LUIS SOLOMON MRN: [id number] date: 1990 Sex: M Assigned Patient Location: ER Current Patient Location: [place] Accession/Order Number: [id number] Exam Date: 05/13/2024 09:30 Report Date: 05/13/2024 [...] Signed By: 05/13/24 1009 DD/ 1007 TD/TT: Cut Pressman:CBC AUTO DIFF Reviewed date:05/14/2024 03:54:09 PM Interpretation: Performing Lab: Notes/Report: [facility] ,White Blood Count11.54.0-11.0 10 3/uLRed Blood Count4.854.70-6.10 10 6/uL Bgleviumjc49.314.0-18.0 g/oIYgbljrlgav29.442.0-54.0 %Mean Corpuscular Umevyv17.4 80.0-94.0 fLMean Corpuscular Bkbqllywlr81.525.9-34.0 pgMean Corpuscular HGB Conc 33.729.9-35.2 g/dLRed Cell Distribution Width12.111.0-15.0 %Platelet Chpnt660 150-450 10 3/uLMean Platelet Djezqu31.39.5-13.5 fLNeutrophils Percent Auto87.6 43.0-75.0 %Lymphocytes Percent Auto6.120.5-60.0 %Monocytes Percent Auto3.01.7- 12.0 %Eosinophils Percent Auto0.00.9-7.0 %Basophils Percent Auto0.20.2-2.0 % Immature Granulocytes Pct Auto3.10.0-0.5 %Neutrophils Absolute Auto10.11.4-6.5 10 3/uLLymphocytes Absolute Auto0.71.2-3.8 10 3/uLMonocytes Absolute Auto0.30.3- 0.8 10 3/uLEosinophils Absolute Auto0.00.0-0.7 10 3/uLBasophils Absolute Auto0.0 0.0-0.1 10 3/uLImmature Granulocytes Abs Auto0.350.00-0.03 10 3/uLPerforming Lab:see noteML - [facility] LBBNP Reviewed date:05/26/2024 08:18:37 AM Interpretation: Performing Lab: Notes/Report: [facility] [place] ,NT Pro B Type Natriuretic Pept14.0<=450.0 pg/mLPerforming Lab:see note - [facility] LBPROF 14(COMP METB) Reviewed date:05/26/2024 08:18:37 AM Interpretation: Performing Lab: Notes/Report: [facility] ,Uprusn367824-111 mmol/LPotassium4.13.5-5.1 mmol/IRhffxjdj71045-512 mmol/LCarbon Uljakuo92.821.0-32.0 mmol/LAnion Gap9.6Xyumvgp61854-378 mg/dLBlood Urea Nitrogen 16.07.0-18.0 mg/dLCreatinine1.000.70-1.30 mg/dLEstimated GFR ( Cinthia>60 >=60 mL/min/1.73m 2Estimated GFR (Non- Sabine>60>=60 mL/min/1.73m 2BUN Creatinine Ratio16.1Awtjngv7.18.5-10.1 mg/dLBilirubin Total0.50.2-1.0 mg/dL Aspartate Amino Cxuvhualgej7090-17 U/LAlanine Vvflmxxrdkdxlrse8736-80 U/L Alkaline Amncmuucjwu0563-222 U/LTotal Protein6.66.4-8.2 g/dLAlbumin Level3.33.4- 5.0 g/dLGlobulin3.3Albumin Globulin Ratio1.0Performing Lab:see noteML - [facility] LBTroponin I High Sensitivity Reviewed date:05/26/2024 08:18:37 AM Interpretation: Performing Lab: Notes/Report: [facility] ,Troponin I High Sensitivity4.64.0-76.1 pg/mL CUT-OFF POINTS HAVE BEEN ESTABLISHED BASED ON THE FOURTH UNIVERSAL DEFINITION OF MYOCARDIAL INFARCTION. THE UPPER REFERENCE LIMIT (URL) OF TROPONIN, DEFINED THE 99TH PERCENTILE OF cTnI DISTRIBUTION IN A REFERENCE POPULATION, HAS BEEN CONFIRMED THE DECISION THRESHOLD FOR RI DIAGNOSIS. 99TH PERCENTILE = 76.2 PG/ML NOTE: HIGH-SENSITIVITY TROPONIN ASSAY IS NOT INTENDED TO BE USED IN ISOLATION BUT SHOULD BE INTERPRETED IN CONJUNCTION WITH OTHER DIAGNOSTIC AND CLINICAL INFORMATION. Performing Lab:see noteML - [facility] LBXR chest 1V Reviewed date:05/26/2024 08:18:37 AM Interpretation: Performing Lab: Notes/Report: Source Facility: [place] [address] [place] [address] XRay Report Signed Patient: LUIS SOLOMON MR#: [id number] : 1990 Acct:[id number] Age/Sex: 33 / M ADM Date: 05/22/24 Loc: ER Attending Dr: Ordering Physician: Kristina Martinez Date of Service: 05/22/24 Procedure(s): XR chest 1V Accession Number(s): [id number] cc: NEETU BARBOZA ; Kristina Martinez [place] [id number] Patient Name: LUIS SOLOMON MRN: [id number] date: 1990 Sex: M Assigned Patient Location: ER Current Patient Location: ER Accession/Order Number: [id number] Exam Date: 05/22/2024 19:12 Report Date: 05/22/2024 [...] M.D. Signed By: 05/22/242048 DD/ 45 TD/TT: Cut Pressman:ECG 12 lead Reviewed date:07/07/2024 08:16:57 AM Interpretation: Performing Lab: Notes/Report: Source Facility: [place] [address] Electrocardiograph Report Signed Patient: LUIS SOLOMON MR#: [id number] : 1990 Acct:[id number] Age/Sex: 33 / M ADM Date: 07/03/24 Loc: ER Attending Dr: Ordering Physician: Mark Nieto M.D. Date of Service: 07/03/24 Procedure(s): ECG 12 lead Accession Number(s): [id number] cc: [facility] Test Date: 2024-07-03 Pat Name: LUIS SOLOMON Department: Room: - Gender: Male [employer]: : 1990 Requested By: NEETU BARBOZA Order Number: [id number] Reading MD: NITISH ZAMORA Measurements Intervals [place] Rate: 99 P: 70 DC: 124 QRS: 143 QRSD: 76 T: 83 QT: 342 QTc: 398 Interpretive Statements 1100 Sinus rhythm 2420 RSR (QR) in lead V1/V2, consistent with right ventricular conduction delay 2730 Left posterior fascicular block 9150 abnormal ECG Compared to ECG 05/22/2024 18:41:06 Left posterior fascicular block now present Electronically Signed On 2-6-2025 20:12:18 EST by NITISH ZAMORA Dictated By: Nitish Zamora D.O. Signed By: 07/03/242011 DD/ 3 TD/TT: Cut Pressman:XR ribs BI min 4V w CXR1V Reviewed date:07/07/2024 08:16:57 AM Interpretation: Performing Lab: Notes/Report: Source Facility: [place] [address] [place] [address] XRay Report Signed Patient: LUIS SOLOMON MR#: [id number] : 1990 Acct:[id number] Age/Sex: 33 / M ADM Date: 07/03/24 Loc: ER Attending Dr: Ordering Physician: Mark Nieto M.D. Date of Service: 07/03/24 Procedure(s): XR ribs BI min 4V w CXR1V Accession Number(s): [id number] cc: NEETU BARBOZA ; Mark Nieto M.D. [place] [address] Patient Name: LUIS SOLOMON MRN: [id number] date: 1990 Sex: M Assigned Patient Location: ED.MAIN Current Patient Location: ER Accession/Order Number: [id number] Exam Date: 07/03/2024 07:02 Report Date: 07/03/2024 [...] Signed By: 07/03/24 0747 DD/ 0745 TD/TT: Cut Pressman:XR sternum min 2V Reviewed date:07/07/2024 08:16:57 AM Interpretation: Performing Lab: Notes/Report: Source Facility: [place] [address] XRay Report Signed Patient: LUIS SOLOMON MR#: [id number] : 1990 Acct:[id number] Age/Sex: 33 / M ADM Date: 07/03/24 Loc: ER Attending Dr: Ordering Physician: Mark Nieto M.D. Date of Service: 07/03/24 Procedure(s): XR sternum min 2V Accession Number(s): [id number] cc: NEETU BARBOZA Jeffery D M.D. [place] [address] Patient Name: LUIS SOLOMON MRN: [id number] date: 1990 Sex: M Assigned Patient Location: ED.MAIN Current Patient Location: ER Accession/Order Number: [id number] Exam Date: 07/03/2024 07:02 Report Date: 07/03/2024 07:37 At the request of: MARK NIETO Procedure: XR sternum min 2V EXAM: XR sternum min 2V HISTORY: fall COMPARISON: None. XR/XR sternum min 2V IMPRESSION: 1. No displaced sternal fracture. Electronically authenticated by: JOSHUA AARON Date: 07/03/2024 07:37 Dictated By: Joshua Aaron M.D. Signed By: 07/03/2439 DD/ TD/TT: Cut Pressman:INFLUENZA A AND B AG Reviewed date:08/04/2024 10:09:14 AM Interpretation: Performing Lab: Notes/Report: [facility] ,Influenza Virus A AntigenNegative Negative for Flu [...] the test. Performing Lab:see noteML - [facility] RPJBZN-DjH-9 Ag* Reviewed date:08/04/2024 10:09:14 AM Interpretation: Performing Lab: Notes/Report: [facility] ,SARS-CoV-2 AgNEGATIVENEGATIVE This test has not been [...] revoked sooner. Performing Lab:see noteML - [facility] LBCBC AUTO DIFF Reviewed date:08/05/2024 09:15:27 AM Interpretation: Performing Lab: Notes/Report: [facility] ,White Blood Count10.74.0-11.0 10 3/uLRed Blood Count5.234.70-6.10 10 6/uL Pxmjnonqik89.214.0-18.0 g/tBBxpquxilqs81.842.0-54.0 %Mean Corpuscular Eczarf19.7 80.0-94.0 fLMean Corpuscular Bzsnigkdma22.125.9-34.0 pgMean Corpuscular HGB Conc 33.929.9-35.2 g/dLRed Cell Distribution Width12.911.0-15.0 %Platelet Hhcvx345 150-450 10 3/uLMean Platelet Pgxouc56.89.5-13.5 fLNeutrophils Percent Auto76.4 43.0-75.0 %Lymphocytes Percent Auto11.620.5-60.0 %Monocytes Percent Auto10.81.7- 12.0 %Eosinophils Percent Auto0.10.9-7.0 %Basophils Percent Auto0.90.2-2.0 % Immature Granulocytes Pct Auto0.20.0-0.5 %Neutrophils Absolute Auto8.21.4-6.5 10 3/uLLymphocytes Absolute Auto1.31.2-3.8 10 3/uLMonocytes Absolute Auto1.20.3-0.8 10 3/uLEosinophils Absolute Auto0.00.0-0.7 10 3/uLBasophils Absolute Auto0.10.0- 0.1 10 3/uLImmature Granulocytes Abs Auto0.020.00-0.03 10 3/uLPerforming Lab:see noteML - [facility] LBLACTATE or LACTIC ACID Reviewed date:08/05/2024 09:15:27 AM Interpretation: Performing Lab: Notes/Report: [facility] ,Lactate/Lactic Acid0.90.4-2.0 mmol/LPerforming Lab:see noteML - [facility] LBPROF CHEM 8 (BAS METB) Reviewed date:08/05/2024 09:15:27 AM Interpretation: Performing Lab: Notes/Report: [facility] ,Bnunyt186051-029 mmol/LPotassium4.43.5-5.1 mmol/SIpaakioy49069-002 mmol/LCarbon Qaqmhru98.521.0-32.0 mmol/LAnion Gap12.3Gkprtdx53795-195 mg/dLBlood Urea Nitrogen9.07.0-18.0 mg/dLCreatinine1.090.70-1.30 mg/dLEstimated GFR ( Cinthia>60>=60 mL/min/1.73m 2Estimated GFR (Non- Sabine>60>=60 mL/min/1.73m 2BUN Creatinine Ratio8.3Qpcfdlg8.98.5-10.1 mg/dLPerforming Lab:see noteML - [facility] LBTroponin I High Sensitivity Reviewed date:08/05/2024 09:15:27 AM Interpretation: Performing Lab: Notes/Report: [facility] ,Troponin I High Sensitivity4.34.0-76.1 pg/mL CUT-OFF POINTS HAVE BEEN ESTABLISHED BASED ON THE FOURTH UNIVERSAL DEFINITION OF MYOCARDIAL INFARCTION. THE UPPER REFERENCE LIMIT (URL) OF TROPONIN, DEFINED THE 99TH PERCENTILE OF cTnI DISTRIBUTION IN A REFERENCE POPULATION, HAS BEEN CONFIRMED THE DECISION THRESHOLD FOR RI DIAGNOSIS. 99TH PERCENTILE = 76.2 PG/ML NOTE: HIGH-SENSITIVITY TROPONIN ASSAY IS NOT INTENDED TO BE USED IN ISOLATION BUT SHOULD BE INTERPRETED IN CONJUNCTION WITH OTHER DIAGNOSTIC AND CLINICAL INFORMATION. Performing Lab:see noteML - [facility] LBCBC AUTO DIFF Reviewed date:08/06/2024 10:07:04 AM Interpretation: Performing Lab: Notes/Report: [facility] [place] ,White Blood Count10.94.0-11.0 10 3/uLRed Blood Count4.694.70-6.10 10 6/uL Ubialttase58.614.0-18.0 g/fWPxpntoimfe06.542.0-54.0 %Mean Corpuscular Trkkvm93.4 80.0-94.0 fLMean Corpuscular Slaneldxqa54.025.9-34.0 pgMean Corpuscular HGB Conc 33.629.9-35.2 g/dLRed Cell Distribution Width13.011.0-15.0 %Platelet Qhugr731 150-450 10 3/uLMean Platelet Qmmxti96.89.5-13.5 fLNeutrophils Percent Auto91.9 43.0-75.0 %Lymphocytes Percent Auto4.620.5-60.0 %Monocytes Percent Auto2.91.7- 12.0 %Eosinophils Percent Auto0.10.9-7.0 %Basophils Percent Auto0.10.2-2.0 % Immature Granulocytes Pct Auto0.40.0-0.5 %Neutrophils Absolute Auto10.01.4-6.5 10 3/uLLymphocytes Absolute Auto0.51.2-3.8 10 3/uLMonocytes Absolute Auto0.30.3- 0.8 10 3/uLEosinophils Absolute Auto0.00.0-0.7 10 3/uLBasophils Absolute Auto0.0 0.0-0.1 10 3/uLImmature Granulocytes Abs Auto0.040.00-0.03 10 3/uLPerforming Lab:see noteML - [facility] XFJTZS-TfJ-5 Ag* Reviewed date:08/05/2024 09:15:27 AM Interpretation: Performing Lab: Notes/Report: [facility] ,SARS-CoV-2 AgNEGATIVENEGATIVE This test has not been [...] revoked sooner. Performing Lab:see noteML - [facility] LBBlood Culture 2 Reviewed date:08/10/2024 03:10:25 PM Interpretation: Performing Lab: Notes/Report: [facility] ,Blood Culture 2See Below For Report Blood Culture 2 NG5D NO GROWTH AT 5 DAYS.^NO GROWTH AT 5 DAYS. Performing Lab[facility] ([facility] METB) Reviewed date:08/10/2024 03:10:26 PM Interpretation: Performing Lab: Notes/Report: [facility] ,Dxdlzh121216-567 mmol/LPotassium4.23.5-5.1 mmol/QJpcxwybm89081-523 mmol/LCarbon Rszxuaj33.521.0-32.0 mmol/LAnion Gap8.8Zetgwrd84028-196 mg/dLBlood Urea Nitrogen 17.07.0-18.0 mg/dLCreatinine0.900.70-1.30 mg/dLEstimated GFR ( Cinthia>60 >=60 mL/min/1.73m 2Estimated GFR (Non- Sabine>60>=60 mL/min/1.73m 2BUN Creatinine Ratio18.4Cvwpqds0.58.5-10.1 mg/dLPerforming Lab:see note - [facility] LBBlood Culture 1 Reviewed date:08/10/2024 03:10:25 PM Interpretation: Performing Lab: Notes/Report: [facility] ,Blood Culture 1See Below For Report Blood Culture 1 NG5D NO GROWTH AT 5 DAYS.^NO GROWTH AT 5 DAYS. Performing Lab:see note - [facility] LBPROF 14(COMP METB) Reviewed date:08/05/2024 09:15:27 AM Interpretation: Performing Lab: Notes/Report: [facility] ,Jyzunq083484-243 mmol/LPotassium4.33.5-5.1 mmol/JTpsmbwjj11839-913 mmol/LCarbon Mogkpuf10.121.0-32.0 mmol/LAnion Gap15.1Cdwdpeo42662-871 mg/dLBlood Urea Nitrogen8.07.0-18.0 mg/dLCreatinine1.210.70-1.30 mg/dLEstimated GFR ( Cinthia>60>=60 mL/min/1.73m 2Estimated GFR (Non- Sabine>60>=60 mL/min/1.73m 2BUN Creatinine Ratio6.9Hlohrof2.88.5-10.1 mg/dLBilirubin Total0.40.2-1.0 mg/dL Aspartate Amino Qchddygsdrq7685-52 U/LAlanine Vdexvxmgshrdhzlq211-79 U/LAlkaline Aclrxyfcmos98799-840 U/LTotal Protein6.86.4-8.2 g/dLAlbumin Level3.43.4-5.0 g/dL Globulin3.4Albumin Globulin Ratio1.0Performing Lab:see noteML - [facility] LBMAGNESIUM Reviewed date:08/05/2024 09:15:27 AM Interpretation: Performing Lab: Notes/Report: [facility] ,Magnesium1.91.8-2.4 mg/dLPerforming Lab:see noteML - [facility] LB INFLUENZA A AND B AG Reviewed date:08/05/2024 09:15:27 AM Interpretation: Performing Lab: Notes/Report: [facility] ,Influenza Virus A AntigenNegative Negative for Flu [...] the test. Performing Lab:see noteML - [facility] LBCBC AUTO DIFF Reviewed date:08/05/2024 09:15:27 AM Interpretation: Performing Lab: Notes/Report: [facility] ,White Blood Count8.64.0-11.0 10 3/uLRed Blood Count4.944.70-6.10 10 6/uL Wanlutbujm86.514.0-18.0 g/gONstzyirqxh44.442.0-54.0 %Mean Corpuscular Qgmlbf88.8 80.0-94.0 fLMean Corpuscular Attbualxso88.425.9-34.0 pgMean Corpuscular HGB Conc 34.229.9-35.2 g/dLRed Cell Distribution Width13.011.0-15.0 %Platelet Hkqaw060 150-450 10 3/uLMean Platelet Suzpvp06.49.5-13.5 fLNeutrophils Percent Auto93.7 43.0-75.0 %Lymphocytes Percent Auto4.120.5-60.0 %Monocytes Percent Auto1.01.7- 12.0 %Eosinophils Percent Auto0.50.9-7.0 %Basophils Percent Auto0.50.2-2.0 % Immature Granulocytes Pct Auto0.20.0-0.5 %Neutrophils Absolute Auto8.01.4-6.5 10 3/uLLymphocytes Absolute Auto0.41.2-3.8 10 3/uLMonocytes Absolute Auto0.10.3-0.8 10 3/uLEosinophils Absolute Auto0.00.0-0.7 10 3/uLBasophils Absolute Auto0.00.0- 0.1 10 3/uLImmature Granulocytes Abs Auto0.020.00-0.03 10 3/uLPerforming Lab:see noteML - [facility] LBECG 12 lead Reviewed date:05/26/2024 08:18:37 AM Interpretation: Performing Lab: Notes/Report: Source Facility: [place] [address] Electrocardiograph Report Signed Patient: ULIS SOLOMON MR#: [id number] : 1990 Acct:[id number] Age/Sex: 33 / M ADM Date: 05/22/24 Loc: ER Attending Dr: Ordering Physician: Kristina Martinez Date of Service: 05/22/24 Procedure(s): ECG 12 lead Accession Number(s): [id number] cc: [facility] Test Date: 2024-05-22 Pat Name: LUIS SOLOMON Department: Room: - Gender: Male [employer]: : 1990 Requested By: NEETU BARBOZA Order Number: [id number] Reading MD: NITISH ZAMORA Measurements Intervals [place] Rate: 90 P: 54 DC: 120 QRS: 150 QRSD: 80 T: 54 QT: 326 QTc: 374 Interpretive Statements 1100 Sinus rhythm 5120 Possible right ventricular hypertrophy 9130 borderline ECG Compared to ECG 05/13/2024 07:29:18 Right-axis deviation no longer present Electronically Signed On 05-25-2024 7:38:22 EST by NITISH ZAMORA Dictated By: Nitish Zamora D.O. Signed By: 05/25/24 0738 DD/ 1841 TD/TT: Cut Pressman:SARS-Genesis2 Ag* Reviewed date:05/26/2024 08:18:37 AM Interpretation: Performing Lab: Notes/Report: [facility] ,SARS-CoV-2 AgNEGATIVENEGATIVE This test has not been [...] revoked sooner. Performing Lab:see noteML - [facility] LBManual Differential Reviewed date:08/10/2024 03:10:26 PM Interpretation: Performing Lab: Notes/Report: [facility] ,Segmented Neutrophils % Qvnfmh44.043.0-75.0Lymphocytes Percent Manual6.020.5- 60.0 %Monocytes Percent Manual8.01.7-12.0 %Eosinophils Percent Manual0.00.9-7.0 %Basophils Percent Manual0.00.2-2.0 %Segmented Neut Absolute Acisze04.241.4-6.5 10 3/uLLymphocytes Absolute Manual1.481.20-3.80 10 3/uLMonocytes Absolute Manual 1.970.30-0.80 10 3/uLEosinophils Absolute Manual0.000.00-0.70 10 3/uLBasophils Abs Manual0.000.00-0.10 10 3/uLPerforming Lab:see noteML - [facility] LBTroponin I High Sensitivity Reviewed date:08/10/2024 03:10:26 PM Interpretation: Performing Lab: Notes/Report: [facility] ,Troponin I High Sensitivity5.44.0-76.1 pg/mL CUT-OFF POINTS HAVE BEEN ESTABLISHED BASED ON THE FOURTH UNIVERSAL DEFINITION OF MYOCARDIAL INFARCTION. THE UPPER REFERENCE LIMIT (URL) OF TROPONIN, DEFINED THE 99TH PERCENTILE OF cTnI DISTRIBUTION IN A REFERENCE POPULATION, HAS BEEN CONFIRMED THE DECISION THRESHOLD FOR RI DIAGNOSIS. 99TH PERCENTILE = 76.2 PG/ML NOTE: HIGH-SENSITIVITY TROPONIN ASSAY IS NOT INTENDED TO BE USED IN ISOLATION BUT SHOULD BE INTERPRETED IN CONJUNCTION WITH OTHER DIAGNOSTIC AND CLINICAL INFORMATION. Performing Lab:see noteML - [facility] LBEthanol Reviewed date:08/10/2024 03:10:26 PM Interpretation: Performing Lab: Notes/Report: [facility] ,Dxealbu89LQKJ: 80 mg/dl is the legal limit for a blood alcohol levelPerforming Lab:see note - [facility] LBECG 12 lead Reviewed date:08/10/2024 03:10:26 PM Interpretation: Performing Lab: Notes/Report: Source Facility: [facility]-[address] [place] [address] Electrocardiograph Report Signed Patient: LUIS SOLOMON MR#: [id number] : 1990 Acct:[id number] Age/Sex: 33 / M ADM Date: 08/09/24 Loc: ICU 273-[address]: Nicola Wyatt D.O. Ordering Physician: Comfort Costa Date of Service: 08/09/24 Procedure(s): ECG 12 lead Accession Number(s): [id number] cc: [facility] Test Date: 2024-08-09 Pat Name: LUIS SOLOMON Department: Room: - Gender: Male [employer]: : 1990 Requested By: [id number] Order Number: [id number] Jordin MD: JACOBY WILLSON M.D. Measurements Intervals [place] Rate: 124 P: 44 DC: 144 QRS: 191 QRSD: 82 T: 48 [...] Signed By: 08/09/24 1706 DD/ 0921 TD/TT: Cut Pressman:Venous Blood Gas Reviewed date:05/26/2024 08:18:37 AM Interpretation: Performing Lab: Notes/Report: [facility] [place] ,pH [id number] VBG42.540.0-52.0 mmHgPerforming Lab:see note - [facility] LBProthrombin Time INR Reviewed date:05/26/2024 08:18:37 AM Interpretation: Performing Lab: Notes/Report: [facility] [place] ,Prothrombin Time10.29.0-11.6 secINR0.96 DESIRED INR: 2.0-3.0 CONDITIONS NOT LISTED BELOW 2.5-3.5 FOR PROSTHETIC HEART VALVE REPLACEMENT 2.5-3.5 RECURRENT THROMBOSIS Performing Lab:see noteML - [facility] LBRSV Reviewed date:05/26/2024 08:18:37 AM Interpretation: Performing Lab: Notes/Report: [facility] [place] ,Respiratory Syncytial VirusNot DetectedNOT DETECTEPerforming Lab:see note - [facility] LBVANCOMYCIN TROUGH Reviewed date:08/10/2024 03:10:25 PM Interpretation: Performing Lab: Notes/Report: [facility] [place] ,Vancomycin Pbpffo05.05.0-20.0 ug/mLPerforming Lab:see note - [facility] LBLACTATE or LACTIC ACID Reviewed date:05/26/2024 08:18:37 AM Interpretation: Performing Lab: Notes/Report: [facility] [place] ,Lactate/Lactic Acid1.00.4-2.0 mmol/LPerforming Lab:see note - [facility] LBINFLUENZA A AND B AG Reviewed date:05/26/2024 08:18:37 AM Interpretation: Performing Lab: Notes/Report: [facility] [place] ,Influenza Virus A AntigenNegative Negative for Flu [...] the test. Performing Lab:see noteML - [facility] LBCBC AUTO DIFF Reviewed date:05/26/2024 08:18:37 AM Interpretation: Performing Lab: Notes/Report: [facility] [place] ,White Blood Count9.74.0-11.0 10 3/uLRed Blood Count5.114.70-6.10 10 6/uL Eqcmtgjbeb62.214.0-18.0 g/nHKolbzvchto32.442.0-54.0 %Mean Corpuscular Bjlclb41.8 80.0-94.0 fLMean Corpuscular Ufrcdavlma04.725.9-34.0 pgMean Corpuscular HGB Conc 33.529.9-35.2 g/dLRed Cell Distribution Width12.411.0-15.0 %Platelet Nrrpi813 150-450 10 3/uLMean Platelet Pvluhz03.09.5-13.5 fLNeutrophils Percent Auto73.2 43.0-75.0 %Lymphocytes Percent Auto14.620.5-60.0 %Monocytes Percent Auto10.21.7- 12.0 %Eosinophils Percent Auto0.90.9-7.0 %Basophils Percent Auto0.20.2-2.0 % Immature Granulocytes Pct Auto0.90.0-0.5 %Neutrophils Absolute Auto7.11.4-6.5 10 3/uLLymphocytes Absolute Auto1.41.2-3.8 10 3/uLMonocytes Absolute Auto1.00.3-0.8 10 3/uLEosinophils Absolute Auto0.10.0-0.7 10 3/uLBasophils Absolute Auto0.00.0- 0.1 10 3/uLImmature Granulocytes Abs Auto0.090.00-0.03 10 3/uLPerforming Lab:see noteML - [facility] [place] LBTHEOPHYLLINE Reviewed date:05/14/2024 03:54:09 PM Interpretation: Performing Lab: Notes/Report: [facility] [place] ,Theophylline6.210.0-20.0 ug/mL --- 05/14/24 0623 --- Hector previously reported as: 6.2 L ug/mL Performing Lab:see noteML - [facility] LBPROF CHEM 8 (BAS METB) Reviewed date:05/14/2024 03:54:09 PM Interpretation: Performing Lab: Notes/Report: [facility] [place] ,Cfcvwo534858-464 mmol/LPotassium3.53.5-5.1 mmol/XFqzbsasi35073-753 mmol/LCarbon Yqahtae42.921.0-32.0 mmol/LAnion Gap14.5Qelhsgs13480-917 mg/dLBlood Urea Ctgpjwzj20.07.0-18.0 mg/dLCreatinine1.010.70-1.30 mg/dLEstimated GFR ( Cinthia>60>=60 mL/min/1.73m 2Estimated GFR (Non- Sabine>60>=60 mL/min/1.73m 2BUN Creatinine Ratio17.1Rwqbfiy9.48.5-10.1 mg/dLPerforming Lab:see noteML - [facility] LBXR chest 1V Reviewed date:05/13/2024 08:46:42 AM Interpretation: Performing Lab: Notes/Report: Source Facility: [facility] [place]-[address] [place] [address] [place] [address] XRay Report Signed Patient: LUIS SOLOMON MR#: [id number] : 1990 Acct:[id number] Age/Sex: 33 / M ADM Date: 05/13/24 Loc: ER Attending Dr: Ordering Physician: Mark Nieto M.D. Date of Service: 05/13/24 Procedure(s): XR chest 1V Accession Number(s): [id number] cc: NEETU BARBOZA ; Mark Nieto M.D. [place] [id number] Patient Name: LUIS SOLOMON MRN: [id number] date: 1990 Sex: M Assigned Patient Location: ER Current Patient Location: ER Accession/Order Number: [id number] Exam Date: 05/13/2024 07:30 Report Date: 05/13/2024 [...] Lovett M.D. Signed By: 05/13/24 0758 DD/ 075 TD/TT: Cut Pressman:ECG 12 lead Reviewed date:05/14/2024 10:25:57 AM Interpretation: Performing Lab: Notes/Report: Source Facility: [place] [address] [place] [address] Electrocardiograph Report Signed Patient: LUIS SOLOOMN MR#: [id number] : 1990 Acct:[id number] Age/Sex: 33 / M ADM Date: 05/13/24 Loc: [place] 203-[address]: Maryanne Elkins M.D. Ordering Physician: Mark Nieto M.D. Date of Service: 05/13/24 Procedure(s): ECG 12 lead Accession Number(s): [id number] cc: [facility] [place] Test Date: 2024-05-13 Pat Name: LUIS SOLOMON Department: Room: - Gender: Male [employer]: : 1990 Requested By: NEETU BARBOZA Order Number: [id number] Reading MD: NITISH ZAMORA Measurements Intervals [place] Rate: 75 P: 30 DC: 122 QRS: 102 QRSD: 88 T: 72 QT: 350 QTc: 379 Interpretive Statements 1100 Sinus rhythm 1470 with occasional supraventricular premature complexes 2420 RSR (QR) in lead V1/V2, consistent with right ventricular conduction delay 7100 Abnormal right axis deviation 9140 abnormal rhythm ECG Compared to ECG 05/08/2024 07:52:54 Right-axis deviation now present Short DC interval no longer present Electronically Signed On 05-13-2024 19:31:11 EST by NITISH ZAMORA Dictated By: Nitish Zamora D.O. Signed By: 05/13/241930 DD/ 8 TD/TT: Cut Pressman:SARS-CoV-2 Ag* Reviewed date:05/13/2024 08:46:42 AM Interpretation: Performing Lab: Notes/Report: [facility] [place] ,SARS-CoV-2 AgNEGATIVENEGATIVE This test has not been [...] revoked sooner. Performing Lab:see noteML - [facility] LBManual Differential Reviewed date:05/13/2024 08:46:42 AM Interpretation: Performing Lab: Notes/Report: [facility] [place] ,Segmented Neutrophils % Peffan11.043.0-75.0Lymphocytes Percent Xpfmzt18.020.5- 60.0 %Monocytes Percent Manual9.01.7-12.0 %Eosinophils Percent Manual0.00.9-7.0 %Basophils Percent Manual0.00.2-2.0 %Metamyelocytes %2.0Segmented Neut Absolute Manual9.231.4-6.5 10 3/uLLymphocytes Absolute Manual2.341.20-3.80 10 3/uL Monocytes Absolute Manual1.170.30-0.80 10 3/uLEosinophils Absolute Manual0.00 0.00-0.70 10 3/uLBasophils Abs Manual0.000.00-0.10 10 3/uLMetamyelocytes Absolute Manual0.26Performing Lab:see noteML - [facility] LBPROF CHEM 8 (BAS METB) Reviewed date:05/13/2024 08:46:42 AM Interpretation: Performing Lab: Notes/Report: [facility] [place] ,Mobqok375982-416 mmol/LPotassium3.43.5-5.1 mmol/OXelaiasi98653-636 mmol/LCarbon Mwsmnvj03.621.0-32.0 mmol/LAnion Gap10.2Buuejin4919-472 mg/dLBlood Urea Nitrogen 15.07.0-18.0 mg/dLCreatinine0.930.70-1.30 mg/dLEstimated GFR ( Cinthia>60 >=60 mL/min/1.73m 2Estimated GFR (Non- Sabine>60>=60 mL/min/1.73m 2BUN Creatinine Ratio16.4Wfmpymv6.18.5-10.1 mg/dLPerforming Lab:see noteML - [facility] LBINFLUENZA A AND B AG Reviewed date:05/13/2024 08:46:42 AM Interpretation: Performing Lab: Notes/Report: [facility] [place] ,Influenza Virus A AntigenNegative Negative for Flu [...] the test. Performing Lab:see noteML - [facility] LBCBC AUTO DIFF Reviewed date:05/13/2024 08:46:42 AM Interpretation: Performing Lab: Notes/Report: [facility] [place] ,White Blood Count13.04.0-11.0 10 3/uLRed Blood Count5.054.70-6.10 10 6/uL Ulgklmpdrx01.814.0-18.0 g/xHMhtvbhhbmj42.242.0-54.0 %Mean Corpuscular Dvlpgr43.5 80.0-94.0 fLMean Corpuscular Uirricgppd73.325.9-34.0 pgMean Corpuscular HGB Conc 32.729.9-35.2 g/dLRed Cell Distribution Width12.711.0-15.0 %Platelet Pivys731 150-450 10 3/uLMean Platelet Ytiupf28.39.5-13.5 fLPerforming Lab:see noteML - [facility] LBPROF CHEM 8 (BAS METB) Reviewed date:05/12/2024 02:14:22 PM Interpretation: Performing Lab: Notes/Report: [facility] [place] ,Qbtswe330432-336 mmol/LPotassium3.83.5-5.1 mmol/BAjgecsfh12515-241 mmol/LCarbon Buvwqmh95.221.0-32.0 mmol/LAnion Gap15.4Pvxfqlj00823-397 mg/dLBlood Urea Efqoognz34.07.0-18.0 mg/dLCreatinine1.090.70-1.30 mg/dLEstimated GFR ( Cinthia>60>=60 mL/min/1.73m 2Estimated GFR (Non- Sabine>60>=60 mL/min/1.73m 2BUN Creatinine Ratio12.4Uxmonza0.08.5-10.1 mg/dLPerforming Lab:see noteML - [facility] LBPROF CHEM 8 (BAS METB) Reviewed date:05/11/2024 07:48:02 PM Interpretation: Performing Lab: Notes/Report: [facility] [place] ,Gsjzfh700259-561 mmol/LPotassium3.93.5-5.1 mmol/GZdwynczj78806-020 mmol/LCarbon Pxiozbp76.821.0-32.0 mmol/LAnion Gap12.4Kxcnals48407-853 mg/dLBlood Urea Rspcpwjx14.07.0-18.0 mg/dLCreatinine0.930.70-1.30 mg/dLEstimated GFR ( Cinthia>60>=60 mL/min/1.73m 2Estimated GFR (Non- Sabine>60>=60 mL/min/1.73m 2BUN Creatinine Ratio17.7Fwgurjt5.28.5-10.1 mg/dLPerforming Lab:see noteML - [facility] LBXR chest 1V Reviewed date:05/11/2024 07:48:02 PM Interpretation: Performing Lab: Notes/Report: Source Facility: [place] [address] XRay Report Signed Patient: LUIS SOLOMON MR#: [id number] : 1990 Acct:[id number] Age/Sex: 33 / M ADM Date: 05/08/24 Loc: [place] 213-[address]: Nicola Wyatt D.O. Ordering Physician: Nicola Wyatt D.O. Date of Service: 05/10/24 Procedure(s): XR chest 1V Accession Number(s): [id number] cc: NEETU BARBOZA ; Nicola Wyatt D.O. [place] [address] Patient Name: LUIS SOLOMON MRN: [id number] date: 1990 Sex: M Assigned Patient Location: MS Current Patient Location: MS Accession/Order Number: [id number] Exam Date: 05/10/2024 10:25 Report Date: 05/10/2024 [...] Dictated By: Fabienne Robertson M.D. Signed By: 05/10/241114 DD/ 12 TD/TT: Cut Pressman:PROF SIM Downey ([facility]) Reviewed date:08/12/2024 09:10:33 AM Interpretation: Performing Lab: Notes/Report: [facility] [place] ,Vlfkdl070413-687 mmol/LPotassium4.13.5-5.1 mmol/FWumumodx55562-852 mmol/LCarbon Xcaovpk53.921.0-32.0 mmol/LAnion Gap10.3Waiajlm41320-473 mg/dLBlood Urea Dahklujh55.07.0-18.0 mg/dLCreatinine0.840.70-1.30 mg/dLEstimated GFR ( Cintiha>60>=60 mL/min/1.73m 2Estimated GFR (Non- Sabine>60>=60 mL/min/1.73m 2BUN Creatinine Ratio26.5Kqrzyez8.08.5-10.1 mg/dLPerforming Lab:see noteML - [facility] LBMAGNESIUM Reviewed date:05/11/2024 07:48:02 PM Interpretation: Performing Lab: Notes/Report: Comment ok to add to AM labs [facility] [place] ,Magnesium1.91.8-2.4 mg/dLPerforming Lab:see noteML - [facility] LB CBC AUTO DIFF Reviewed date:08/18/2024 01:51:36 PM Interpretation: Performing Lab: Notes/Report: [facility] [place] ,White Blood Count16.04.0-11.0 10 3/uLRed Blood Count4.734.70-6.10 10 6/uL Kvccyxsqyv10.614.0-18.0 g/eZLorrpzehmm10.342.0-54.0 %Mean Corpuscular Iuurur18.2 80.0-94.0 fLMean Corpuscular Pvxvyjueom31.825.9-34.0 pgMean Corpuscular HGB Conc 33.729.9-35.2 g/dLRed Cell Distribution Width12.811.0-15.0 %Platelet Pmruo921 150-450 10 3/uLMean Platelet Ofxqgc32.29.5-13.5 fLNeutrophils Percent Auto88.3 43.0-75.0 %Lymphocytes Percent Auto3.320.5-60.0 %Monocytes Percent Auto5.51.7- 12.0 %Eosinophils Percent Auto0.10.9-7.0 %Basophils Percent Auto0.10.2-2.0 % Immature Granulocytes Pct Auto2.70.0-0.5 %Neutrophils Absolute Auto14.11.4-6.5 10 3/uLLymphocytes Absolute Auto0.51.2-3.8 10 3/uLMonocytes Absolute Auto0.90.3- 0.8 10 3/uLEosinophils Absolute Auto0.00.0-0.7 10 3/uLBasophils Absolute Auto0.0 0.0-0.1 10 3/uLImmature Granulocytes Abs Auto0.430.00-0.03 10 3/uLPerforming Lab:see noteML - [facility] LBPROF CHEM 8 (BAS METB) Reviewed date:08/13/2024 07:49:50 PM Interpretation: Performing Lab: Notes/Report: [facility] [place] ,Orlscb980010-694 mmol/LPotassium4.13.5-5.1 mmol/SBmtryikp96339-759 mmol/LCarbon Ucyzubm08.121.0-32.0 mmol/LAnion Gap12.2Unxpsvg54702-341 mg/dLBlood Urea Xzzuwbje37.07.0-18.0 mg/dLCreatinine0.810.70-1.30 mg/dLEstimated GFR ( Cinthia>60>=60 mL/min/1.73m 2Estimated GFR (Non- Sabine>60>=60 mL/min/1.73m 2BUN Creatinine Ratio27.1Iokckql6.08.5-10.1 mg/dLPerforming Lab:see noteML - [facility] LBCBC AUTO DIFF Reviewed date:02/09/2025 10:41:20 AM Interpretation: Performing Lab: Notes/Report: [facility] [place] ,White Blood Count6.14.0-11.0 10 3/uLRed Blood Count5.314.70-6.10 10 6/uL Vhufndrvjw06.114.0-18.0 g/eAVoihtgrzkd39.242.0-54.0 %Mean Corpuscular Sieqky90.1 80.0-94.0 fLMean Corpuscular Seuxuegnwm46.425.9-34.0 pgMean Corpuscular HGB Conc 33.429.9-35.2 g/dLRed Cell Distribution Width13.611.0-15.0 %Platelet Htafw823 150-450 10 3/uLMean Platelet Vijpue08.59.5-13.5 fLNeutrophils Percent Auto55.2 43.0-75.0 %Lymphocytes Percent Auto29.420.5-60.0 %Monocytes Percent Auto11.91.7- 12.0 %Eosinophils Percent Auto1.50.9-7.0 %Basophils Percent Auto1.80.2-2.0 % Immature Granulocytes Pct Auto0.20.0-0.5 %Neutrophils Absolute Auto3.41.4-6.5 10 3/uLLymphocytes Absolute Auto1.81.2-3.8 10 3/uLMonocytes Absolute Auto0.70.3-0.8 10 3/uLEosinophils Absolute Auto0.10.0-0.7 10 3/uLBasophils Absolute Auto0.10.0- 0.1 10 3/uLImmature Granulocytes Abs Auto0.010.00-0.03 10 3/uLPerforming Lab:see noteML - [facility] LBLACTATE or LACTIC ACID Reviewed date:02/09/2025 10:41:20 AM Interpretation: Performing Lab: Notes/Report: [facility] [place] ,Lactate/Lactic Acid1.00.4-2.0 mmol/LPerforming Lab:see noteML - [facility] LBLIPASE Reviewed date:02/09/2025 10:41:20 AM Interpretation: Performing Lab: Notes/Report: [facility] [place] ,Ihxfkd82.016.0-77.0 U/LPerforming Lab:see noteML - [facility] LBPROF 14(COMP METB) Reviewed date:02/09/2025 10:41:20 AM Interpretation: Performing Lab: Notes/Report: [facility] [place] ,Mqvozi089474-917 mmol/LPotassium3.63.5-5.1 mmol/WVxdiooxa49020-085 mmol/LCarbon Ttwhdtr84.121.0-32.0 mmol/LAnion Gap11.6Anyqzmp7890-740 mg/dLBlood Urea Nitrogen 11.07.0-18.0 mg/dLCreatinine0.800.70-1.30 mg/dLEstimated GFR ( Cinthia>60 >=60 mL/min/1.73m 2Estimated GFR (Non- Sabine>60>=60 mL/min/1.73m 2BUN Creatinine Ratio13.6Xapjpwx1.38.5-10.1 mg/dLBilirubin Total0.40.2-1.0 mg/dL Aspartate Amino Opldvabjzvi1716-64 U/LAlanine Rgwedbpsazpdtjmq3940-57 U/L Alkaline Imhreostxit6124-179 U/LTotal Protein7.06.4-8.2 g/dLAlbumin Level3.73.4- 5.0 g/dLGlobulin3.3Albumin Globulin Ratio1.1Performing Lab:see noteML - [facility] LBUA Micro, reflex to culture Reviewed date:02/09/2025 10:41:20 AM Interpretation: Performing Lab: Notes/Report: [facility] [place] ,Color UrineYELLOWYELLOWClarity UrineSL CLOUDYCLEARSpecific [place] Urine1.025 1.005-1.025pH Urine6.55.0-9.0Protein UrineNEGATIVENEG/TRACE mg/dLGlucose Urine UANEGATIVENEGATIVE mg/dLBilirubin UrineNEGATIVENEGATIVEKetones UrineNEGATIVE NEGATIVE mg/dLBlood UrineNEGATIVENEGATIVENitrite UrineNEGATIVENEGATIVE Urobilinogen Urine1.00.2-1.0 EU/dLLeukocyte Esterase UrineNEGATIVENEGATIVEWBC Urine0-2NONE SEEN #/HPFRBC Urine2-50-2 #/HPFBacteria UrineTRACENONE SEEN #/HPF Mucus UrineNONE SEENNONE SEENSquamous Epithelial Cell UrineNONE SEENNONE/RARE #/LPFCrystals Seen?SeenNone Seen #/HPFAmorphous Sediment UrineRARECast Seen?NONE SEENNONE SEEN #/LPFUrine Culture IndicatedNOPerforming Lab:see noteML - [facility] LBPROF CHEM 8 (BAS METB) Reviewed date:05/11/2024 07:48:02 PM Interpretation: Performing Lab: Notes/Report: [facility] [place] ,Pwwrjk678156-363 mmol/LPotassium4.03.5-5.1 mmol/SNvhkagtq54937-631 mmol/LCarbon Xoxftrh68.521.0-32.0 mmol/LAnion Gap13.6Qcokiqv56143-718 mg/dLBlood Urea Tcvgbuea40.07.0-18.0 mg/dLCreatinine1.080.70-1.30 mg/dLEstimated GFR ( Cinthia>60>=60 mL/min/1.73m 2Estimated GFR (Non- Sabine>60>=60 mL/min/1.73m 2BUN Creatinine Ratio15.0Ipjshre5.78.5-10.1 mg/dLPerforming Lab:see noteML - [facility] CITRJD-DlC-6 Ag* Reviewed date:05/09/2024 01:58:21 PM Interpretation: Performing Lab: Notes/Report: [facility] [place] ,SARS-CoV-2 AgNEGATIVENEGATIVE This test has not been [...] revoked sooner. Performing Lab:see noteML - [facility] LBINFLUENZA A AND B AG Reviewed date:05/09/2024 01:58:21 PM Interpretation: Performing Lab: Notes/Report: [facility] [place] ,Influenza Virus A AntigenNegative Negative for Flu [...] of the test. Performing Lab:see noteML - [facility] LBPROF CHEM 8 (BAS METB) Reviewed date:05/11/2024 07:48:03 PM Interpretation: Performing Lab: Notes/Report: [facility] [place] ,Xnixay405355-383 mmol/LPotassium4.23.5-5.1 mmol/FAfbqnbhw06592-166 mmol/LCarbon Evkfodr20.721.0-32.0 mmol/LAnion Gap14.0Phqqhon88377-804 mg/dLBlood Urea Zhlupvyc02.07.0-18.0 mg/dLCreatinine1.030.70-1.30 mg/dLEstimated GFR ( Cinthia>60>=60 mL/min/1.73m 2Estimated GFR (Non- Sabine>60>=60 mL/min/1.73m 2BUN Creatinine Ratio15.1Cddglev0.98.5-10.1 mg/dLPerforming Lab:see noteML - [facility] LBCBC AUTO DIFF Reviewed date:05/11/2024 07:48:03 PM Interpretation: Performing Lab: Notes/Report: [facility] [place] ,White Blood Count13.94.0-11.0 10 3/uLRed Blood Count4.734.70-6.10 10 6/uL Gvckmblcng72.914.0-18.0 g/tHZmzyqaiuos45.542.0-54.0 %Mean Corpuscular Xlzezr72.9 80.0-94.0 fLMean Corpuscular Edigbkehbw86.425.9-34.0 pgMean Corpuscular HGB Conc 32.729.9-35.2 g/dLRed Cell Distribution Width12.811.0-15.0 %Platelet Zjkyw742 150-450 10 3/uLMean Platelet Grwneo51.89.5-13.5 fLNeutrophils Percent Auto92.9 43.0-75.0 %Lymphocytes Percent Auto4.920.5-60.0 %Monocytes Percent Auto1.71.7- 12.0 %Eosinophils Percent Auto0.00.9-7.0 %Basophils Percent Auto0.10.2-2.0 % Immature Granulocytes Pct Auto0.40.0-0.5 %Neutrophils Absolute Auto12.91.4-6.5 10 3/uLLymphocytes Absolute Auto0.71.2-3.8 10 3/uLMonocytes Absolute Auto0.20.3- 0.8 10 3/uLEosinophils Absolute Auto0.00.0-0.7 10 3/uLBasophils Absolute Auto0.0 0.0-0.1 10 3/uLImmature Granulocytes Abs Auto0.060.00-0.03 10 3/uLPerforming Lab:see note - [facility] LBBlood Culture 1 Reviewed date:03/02/2025 04:15:36 PM Interpretation: Performing Lab: Notes/Report: RIGHT AC [facility] ,Blood Culture 1See Below For Report Blood Culture 1 NG5D NO GROWTH AT 5 DAYS.^NO GROWTH AT 5 DAYS. Performing Lab:see note - [facility] LBBlood Culture 2 Reviewed date:03/02/2025 04:15:36 PM Interpretation: Performing Lab: Notes/Report: RIGHT WRIST - PEDS [facility] ,Blood Culture 2See Below For Report Blood Culture 2 NG5D NO GROWTH AT 5 DAYS.^NO GROWTH AT 5 DAYS. Performing Lab[facility] LB[facility] 1V Reviewed date:05/08/2024 09:48:13 AM Interpretation: Performing Lab: Notes/Report: Source Facility: [facility] [place]-[address] [place] [address] [place] [address] XRay Report Signed Patient: LUIS SOLOMON MR#: [id number] : 1990 Acct:[id number] Age/Sex: 33 / M ADM Date: 05/08/24 Loc: ER Attending Dr: Ordering Physician: Comfort Costa Date of Service: 05/08/24 Procedure(s): XR chest 1V Accession Number(s): [id number] cc: NEETU BARBOZA ; Comfort Costa [place] [address] Patient Name: LUIS SOLOMON MRN: [id number] date: 1990 Sex: M Assigned Patient Location: ER Current Patient Location: ED.MAIN Accession/Order Number: [id number] Exam Date: 05/08/2024 08:07 Report Date: 05/08/2024 [...] Nemo Quiñones M.D. Signed By: 05/08/2457 DD/ 3 TD/TT: Cut Pressman:ECG 12 lead Reviewed date:05/13/2024 08:46:43 AM Interpretation: Performing Lab: Notes/Report: Source Facility: [place] [address] [place] [address] Electrocardiograph Report Signed Patient: LUIS SOLOMON MR#: [id number] : 1990 Acct:[id number] Age/Sex: 33 / M ADM Date: 05/08/24 Loc: MS 213-[address]: Nicola Wyatt D.O. Ordering Physician: Comfort Costa Date of Service: 05/08/24 Procedure(s): ECG 12 lead Accession Number(s): [id number] cc: [facility] Test Date: 2024-05-08 Pat Name: LUIS SOLOMON Department: Room: - Gender: Male [employer]: : 1990 Requested By: 1854 Order Number: [id number] Reading MD: MARYANNE ELKINS Measurements Intervals [place] Rate: 111 P: -57 DC: 118 QRS: 128 QRSD: 86 T: 56 QT: 306 QTc: 371 Interpretive Statements 1220 Rapid atrial rhythm 2210 Short DC interval 5120 Possible right ventricular hypertrophy 9150 abnormal ECG Compared to ECG 03/20/2024 19:29:21 Sinus tachycardia no longer present Left posterior fascicular block no longer present Electronically Signed On 05-13-2024 6:50:58 EST by MARYANNE ELKINS Dictated By: Maryanne Elkins M.D. Signed By: 05/13/24 0651 DD/ 0752 TD/TT: Cut Pressman:Troponin I High Sensitivity Reviewed date:05/08/2024 09:48:13 AM Interpretation: Performing Lab: Notes/Report: [facility] ,Troponin I High Sensitivity<4.04.0-76.1 pg/mL CUT-OFF POINTS HAVE BEEN ESTABLISHED BASED ON THE FOURTH UNIVERSAL DEFINITION OF MYOCARDIAL INFARCTION. THE UPPER REFERENCE LIMIT (URL) OF TROPONIN, DEFINED THE 99TH PERCENTILE OF cTnI DISTRIBUTION IN A REFERENCE POPULATION, HAS BEEN CONFIRMED THE DECISION THRESHOLD FOR RI DIAGNOSIS. 99TH PERCENTILE = 76.2 PG/ML NOTE: HIGH-SENSITIVITY TROPONIN ASSAY IS NOT INTENDED TO BE USED IN ISOLATION BUT SHOULD BE INTERPRETED IN CONJUNCTION WITH OTHER DIAGNOSTIC AND CLINICAL INFORMATION. Performing Lab:see noteML - [facility] LBResult 1 Reviewed date:03/03/2025 08:35:52 AM Interpretation: Performing Lab: Notes/Report: [facility] ,Result 1See Below For Report Result 1 Moderate gram negative rods. Performing Lab:see noteLC - [facility] LBResult 2 Reviewed date:03/03/2025 08:35:52 AM Interpretation: Performing Lab: Notes/Report: [facility] ,Result 2See Below For Report Result 2 CORONARY CARE UNIT NURSE Performing Lab:see note - [facility] LBResult 3 Reviewed date:03/03/2025 08:35:52 AM Interpretation: Performing Lab: Notes/Report: [facility] ,Result 3See Below For Report CORONARY CARE UNIT NURSE Result 3 Performing Lab:see note - [facility] LBResult 4 Reviewed date:03/03/2025 08:35:52 AM Interpretation: Performing Lab: Notes/Report: [facility] ,Result 4See Below For Report Result 4 CORONARY CARE UNIT NURSE Performing Lab:see note - [facility] LBGram Stain Evaluation Reviewed date:03/02/2025 09:23:11 AM Interpretation: Performing Lab: Notes/Report: [facility] ,Gram Stain EvaluationSee Below For Report Gram Stain Evaluation This specimen is of good quality and is acceptable for routine Gram Stain Evaluationbacterial culture. Gram Stain Evaluation This specimen is of good quality and is acceptable for routine Performing Lab:see note - [facility] LBLower Respiratory Culture Reviewed date:03/03/2025 08:35:52 AM [...] Lower Respiratory CulturePerformed at: CB - [facility] [place] WILL FOLLOW O:HAEINF Isolated Lower Respiratory Culture Lower Respiratory [id number] [place], [place] [id number] WILL FOLLOW O:HAEINF Isolated Lower Respiratory Culture Lower Respiratory CultureLab Director: Yonny Pa PhD, Phone: [phone] WILL FOLLOW O:HAEINF Isolated Lower Respiratory Culture Performing Lab:see note LC - [facility] LB SEE REPORT - Basket Maker Id information not found for OBX-specific broadcast producer legend XR chest 2V Reviewed date:02/24/2025 12:59:19 PM Interpretation: Performing Lab: Notes/Report: Source Facility: [place] [address] XRay Report Signed Patient: LUIS SOLOMON MR#: [id number] : 1990 Acct:[id number] Age/Sex: 34 / M ADM Date: 02/24/25 Loc: ER Attending Dr: Ordering Physician: Destiney Larsen Date of Service: 02/24/25 Procedure(s): XR chest 2V Accession Number(s): [id number] cc: NEETU BARBOZA ; Destiney Larsen [place] [address] Patient Name: LUIS SOLOMON MRN: [id number] date: 1990 Sex: M Assigned Patient Location: ER Current Patient Location: ER Accession/Order Number: [id number] Exam Date: 02/24/2025 10:46 Report Date: 02/24/2025 [...] Coats M.D. 02/24/2025 11:29 AM Dictation Location: [place] [address] Electronically authenticated by: [id number] Y Date: 02/24/2025 11:29 Dictated By: Amy Coats M.D. Signed By: 02/24/25 1132 DD/ 1129 TD/TT: Cut Pressman:CT abdomen pelvis w con Reviewed date:02/24/2025 12:59:19 PM Interpretation: Performing Lab: Notes/Report: Source Facility: [place] [address] CT Scan Report Signed Patient: LUIS SOLOMON MR#: [id number] : 1990 Acct:[id number] Age/Sex: 34 / M ADM Date: 02/24/25 Loc: ER Attending Dr: Ordering Physician: Destiney Larsen Date of Service: 02/24/25 Procedure(s): CT abdomen pelvis w con Accession Number(s): [id number] cc: NEETU BARBOZA [place] [address] Patient Name: LUIS SOLOMON MRN: [id number] date: 1990 Sex: M Assigned Patient Location: ER Current Patient Location: ER Accession/Order Number: [id number] Exam Date: 02/24/2025 10:35 Report Date: 02/24/2025 [...] Coats M.D. 02/24/2025 11:43 AM Dictation Location: [place] [address] Electronically authenticated by: [id number] Y Date: 02/24/2025 11:43 Dictated By: Amy Coats M.D. Signed By: 02/24/25 1145 DD/ 1143 TD/TT: Cut Pressman:Gram Stain Evaluation Reviewed date:03/03/2025 08:35:52 AM Interpretation: [...] 08:32:18 AM Interpretation: Performing Lab: Notes/Report: [facility] [place] ,Magnesium1.91.8-2.4 mg/dLPerforming Lab:see note - [facility] LB PHOSPHORUS Reviewed date:02/25/2025 08:32:18 AM Interpretation: Performing Lab: Notes/Report: [facility] [place] ,Phosphorus2.22.6-4.7 mg/dLPerforming Lab:see note - [facility] LB PROF 14(COMP METB) Reviewed date:02/25/2025 08:32:18 AM Interpretation: Performing Lab: Notes/Report: [facility] ,Nicfwx780103-905 mmol/LPotassium4.23.5-5.1 mmol/TKoyqnoer85009-992 mmol/LCarbon Wajcfnc57.121.0-32.0 mmol/LAnion Gap15.7Hiqhxut44139-613 mg/dLBlood Urea Nitrogen9.07.0-18.0 mg/dLCreatinine0.930.70-1.30 mg/dLEstimated GFR ( Cinthia>60>=60 mL/min/1.73m 2Estimated GFR (Non- Sabine>60>=60 mL/min/1.73m 2BUN Creatinine Ratio9.0Qdyyetc4.68.5-10.1 mg/dLBilirubin Total0.40.2-1.0 mg/dL Aspartate Amino Ddamkzgrqqg625-23 U/LAlanine Bgmrvdydnczejlsd1930-81 U/LAlkaline Cdnknaehofp1269-695 U/LTotal Protein6.66.4-8.2 g/dLAlbumin Level3.23.4-5.0 g/dL Globulin3.4Albumin Globulin Ratio0.9Performing Lab:see note - [facility] LBCBC no Diff (Hemogram) Reviewed date:02/25/2025 08:32:18 AM Interpretation: Performing Lab: Notes/Report: [facility] ,White Blood Count6.24.0-11.0 10 3/uLRed Blood Count4.654.70-6.10 10 6/uL Onqjdgxnxw78.514.0-18.0 g/uTVymmdvezly49.542.0-54.0 %Mean Corpuscular Iefmkn14.9 80.0-94.0 fLMean Corpuscular Jibudeksbe75.025.9-34.0 pgMean Corpuscular HGB Conc 34.229.9-35.2 g/dLRed Cell Distribution Width13.711.0-15.0 %Platelet Sqgne234 150-450 10 3/uLMean Platelet Gsdrlr19.29.5-13.5 fLPerforming Lab:see noteML - [facility] LBCBC AUTO DIFF Reviewed date:04/06/2025 09:40:56 AM Interpretation: Performing Lab: Notes/Report: [facility] [place] ,White Blood Count9.94.0-11.0 10 3/uLRed Blood Count5.254.70-6.10 10 6/uL Qmbzevinej21.414.0-18.0 g/nWJrawpfeenu42.342.0-54.0 %Mean Corpuscular Zsedtv36.4 80.0-94.0 fLMean Corpuscular Lcbxvkafco24.325.9-34.0 pgMean Corpuscular HGB Conc 34.829.9-35.2 g/dLRed Cell Distribution Width13.211.0-15.0 %Platelet Wldlp953 150-450 10 3/uLMean Platelet Zaydeo85.09.5-13.5 fLNeutrophils Percent Auto77.9 43.0-75.0 %Lymphocytes Percent Auto12.320.5-60.0 %Monocytes Percent Auto8.31.7- 12.0 %Eosinophils Percent Auto0.50.9-7.0 %Basophils Percent Auto0.80.2-2.0 % Immature Granulocytes Pct Auto0.20.0-0.5 %Neutrophils Absolute Auto7.71.4-6.5 10 3/uLLymphocytes Absolute Auto1.21.2-3.8 10 3/uLMonocytes Absolute Auto0.80.3-0.8 10 3/uLEosinophils Absolute Auto0.10.0-0.7 10 3/uLBasophils Absolute Auto0.10.0- 0.1 10 3/uLImmature Granulocytes Abs Auto0.020.00-0.03 10 3/uLPerforming Lab:see noteML - [facility] LBINFLUENZA A AND B AG Reviewed date:04/06/2025 09:40:56 AM Interpretation: Performing Lab: Notes/Report: [facility] [place] ,Influenza Virus A AntigenNegative Negative for Flu [...] of the test. Performing Lab:see noteML - [facility] LBPROF CHEM 8 (BAS METB) Reviewed date:04/06/2025 09:40:56 AM Interpretation: Performing Lab: Notes/Report: [facility] [place] ,Beorzy282710-637 mmol/LPotassium3.83.5-5.1 mmol/ANoyzrcpb42808-428 mmol/LCarbon Gcrgsnk18.521.0-32.0 mmol/LAnion Gap13.5Drhlmnw4626-770 mg/dLBlood Urea Nitrogen 10.07.0-18.0 mg/dLCreatinine0.810.70-1.30 mg/dLEstimated GFR ( Cinthia>60 >=60 mL/min/1.73m 2Estimated GFR (Non- Sabine>60>=60 mL/min/1.73m 2BUN Creatinine Ratio12.3Obtujar9.98.5-10.1 mg/dLPerforming Lab:see noteML - [facility] PMHCBH-XdB-0 Ag* Reviewed date:04/06/2025 09:40:56 AM Interpretation: Performing Lab: Notes/Report: [facility] [place] ,SARS-CoV-2 AgNEGATIVENEGATIVE This test has not been [...] is revoked sooner. Performing Lab:see noteML - [facility] LBXR chest 2V Reviewed date:04/06/2025 09:40:56 AM Interpretation: Performing Lab: Notes/Report: Source Facility: [place] [address] XRay Report Signed Patient: LUIS SOLOMON MR#: [id number] : 1990 Acct:[id number] Age/Sex: 34 / M ADM Date: 04/05/25 Loc: ER Attending Dr: Ordering Physician: Detsiney Larsen Date of Service: 04/05/25 Procedure(s): XR chest 2V Accession Number(s): [id number] cc: NEETU BARBOZA ; Destiney [place] [address] Patient Name: LUIS SOLOMON MRN: [id number] date: 1990 Sex: M Assigned Patient Location: ED.MAIN Current Patient Location: ED.MAIN Accession/Order Number: [id number] Exam Date: 04/05/2025 12:05 Report Date: 04/05/2025 [...] Candelario M.D. 04/05/2025 12:48 PM Dictation Location: [place] [address] Electronically authenticated by: [id number] Y Date: 04/05/2025 12:48 Dictated By: Ashish Candelario M.D. Signed By: 04/05/25 1251 DD/ 1248 TD/TT: Cut Pressman:INFLUENZA A AND B AG Reviewed date:04/09/2025 11:47:53 AM Interpretation: Performing Lab: Notes/Report: [facility] [place] ,Influenza Virus A AntigenNegative Negative for Flu [...] the test. Performing Lab:see noteML - [facility] KQIIPL-VkR-0 Ag* Reviewed date:04/09/2025 11:47:53 AM Interpretation: Performing Lab: Notes/Report: [facility] [place] ,SARS-CoV-2 AgNEGATIVENEGATIVE This test has not been [...] revoked sooner. Performing Lab:see noteML - [facility] LBXR chest 1V Reviewed date:04/09/2025 02:22:27 PM Interpretation: Performing Lab: Notes/Report: Source Facility: [facility]-[address] [place] [address] [place] [address] XRay Report Signed Patient: LIUS SOLOMON MR#: [id number] : 1990 Acct:[id number] Age/Sex: 34 / M ADM Date: 04/09/25 Loc: ER Attending Dr: Ordering Physician: Comfort Costa Date of Service: 04/09/25 Procedure(s): XR chest 1V Accession Number(s): [id number] cc: NEETU BARBOZA ; Comfort Costa [place] [address] Patient Name: LUIS SOLOMON MRN: [id number] date: 1990 Sex: M Assigned Patient Location: ER Current Patient Location: ER Accession/Order Number: [id number] Exam Date: 04/09/2025 11:37 Report Date: 04/09/2025 12:08 At the request of: COMFORT COSTA MD Procedure: XR chest 1V PA CHEST: CLINICAL HISTORY: sob COMPARISON: 04/05/2025 Stable cardiomediastinal silhouette. Increased perihilar opacity. Emphysematous changes. Trace blunting costophrenic angles likely effusion or scarring. XR/XR chest 1V IMPRESSION: Chronic changes. Negative acute airspace disease. Impression dictated by: Saurav Álvarez M.D. 04/09/2025 12:08 PM Dictation Location: [place] [address] Electronically authenticated by: [id number] Y Date: 04/09/2025 12:08 Dictated By: Saurav Álvarez M.D. Signed By: 04/09/25 1210 DD/ 1208 TD/TT: Cut Pressman:RAGHAV BELTRAN DIFF Reviewed date:04/21/2025 08:11:08 AM Interpretation: Performing Lab: Notes/Report: [facility] [place] ,White Blood Count9.24.0-11.0 10 3/uLRed Blood Count5.244.70-6.10 10 6/uL Ulerrgvhue57.314.0-18.0 g/qZPqwzwexvbq07.442.0-54.0 %Mean Corpuscular Oxzpxl25.7 80.0-94.0 fLMean Corpuscular Nhefemldxh20.225.9-34.0 pgMean Corpuscular HGB Conc 34.529.9-35.2 g/dLRed Cell Distribution Width13.011.0-15.0 %Platelet Skzsx630 150-450 10 3/uLMean Platelet Fbztxy92.89.5-13.5 fLNeutrophils Percent Auto72.1 43.0-75.0 %Lymphocytes Percent Auto16.620.5-60.0 %Monocytes Percent Auto8.41.7- 12.0 %Eosinophils Percent Auto1.40.9-7.0 %Basophils Percent Auto1.20.2-2.0 % Immature Granulocytes Pct Auto0.30.0-0.5 %Neutrophils Absolute Auto6.61.4-6.5 10 3/uLLymphocytes Absolute Auto1.51.2-3.8 10 3/uLMonocytes Absolute Auto0.80.3-0.8 10 3/uLEosinophils Absolute Auto0.10.0-0.7 10 3/uLBasophils Absolute Auto0.10.0- 0.1 10 3/uLImmature Granulocytes Abs Auto0.030.00-0.03 10 3/uLPerforming Lab:see noteML - [facility] LBPROF 14(COMP METB) Reviewed date:04/21/2025 08:11:08 AM Interpretation: Performing Lab: Notes/Report: [facility] ,Axeenp087537-333 mmol/LPotassium4.13.5-5.1 mmol/LUtxgziod50429-738 mmol/LCarbon Jbnlgcs27.221.0-32.0 mmol/LAnion Gap8.5Zmpshgt5004-854 mg/dLBlood Urea Nitrogen 9.07.0-18.0 mg/dLCreatinine0.860.70-1.30 mg/dLEstimated GFR ( Cinthia>60 >=60 mL/min/1.73m 2Estimated GFR (Non- Sabine>60>=60 mL/min/1.73m 2BUN Creatinine Ratio10.0Yyhwoya9.88.5-10.1 mg/dLBilirubin Total0.80.2-1.0 mg/dL Aspartate Amino Tirneysghtj6286-10 U/LAlanine Gdsmovmuowtfpfke8751-93 U/L Alkaline Ifzxxmkupde66634-292 U/LTotal Protein7.06.4-8.2 g/dLAlbumin Level3.8 3.4-5.0 g/dLGlobulin3.2Albumin Globulin Ratio1.2Performing Lab:see noteML - [facility] LBUA (CLEAN or CATCH) BESSEMER BOTTOM MAKER or MICRO IF IND. Reviewed date:04/21/2025 08:11:08 AM Interpretation: Performing Lab: Notes/Report: [facility] [place] ,Color UrineLT. YELLOWYELLOWClarity UrineCLEARCLEARSpecific [place] Urine1.025 1.005-1.025pH Urine5.55.0-9.0Protein UrineNEGATIVENEG/TRACE mg/dLGlucose Urine UANEGATIVENEGATIVE mg/dLBilirubin UrineNEGATIVENEGATIVEKetones UrineNEGATIVE NEGATIVE mg/dLBlood UrineNEGATIVENEGATIVENitrite UrineNEGATIVENEGATIVE Urobilinogen Urine0.20.2-1.0 EU/dLLeukocyte Esterase UrineNEGATIVENEGATIVEUrine Microscopic IndicatedNOPerforming Lab:see noteML - [facility] LBCT abdomen pelvis wo con Reviewed date:04/21/2025 08:11:08 AM Interpretation: Performing Lab: Notes/Report: Source Facility: [facility] [place]-[address] [place] [address] [place] [address] CT Scan Report Signed Patient: LUIS SOLOMON MR#: [id number] : 1990 Acct:[id number] Age/Sex: 34 / M ADM Date: 04/19/25 Loc: ER Attending Dr: Ordering Physician: Comfort Costa Date of Service: 04/19/25 Procedure(s): CT abdomen pelvis wo con Accession Number(s): [id number] cc: NEETU BARBOZA [place] [address] Patient Name: LUIS SOLOMON MRN: [facility]:[id number] date: 1990 Sex: M Assigned Patient Location: ER Current Patient Location: ER Accession/Order Number: [id number] Exam Date: 04/19/2025 11:00 Report Date: 04/19/2025 11:42 At the request of: COMFORT COSTA MD Procedure: CT abdomen pelvis wo con CT ABDOMEN AND PELVIS WITHOUT INTRAVENOUS CONTRAST: CLINICAL HISTORY: Right lower quadrant pain since this morning. COMPARISON: CT abdomen and pelvis 02/24/2025 TECHNIQUE: Spiral images were obtained through the abdomen and pelvis without intravenous contrast. This CT exam was performed using one or more following dose reduction techniques: Automated exposure control, adjustment of the mA and/or kV according to patient size, or use of iterative reconstruction technique. FINDINGS: Lung Bases: [Bronchiectasis involving the lung bases with surrounding consolidation similar to the prior study.] Organs:Suboptimal evaluation due to lack of IV contrast. Liver gallbladder spleen pancreas adrenal glands kidneys and aorta all appear unremarkable.[ GI: Stomach demonstrates postoperative changes. Small hiatal hernia. Distal mildly dilated fluid-filled small bowel loops are identified transition point appears be within the pelvis.[No acute colonic abnormality is seen. Pelvis:[Urinary bladder and prostate gland appear unremarkable.] Peritoneum/Retroperitoneum:No free air or free fluid or lymphadenopathy.[ Abd wall/Bones:Abdominal wall demonstrates no acute findings. Osseous structures demonstrate degenerative change.[ CT/CT abdomen pelvis wo con IMPRESSION: Mildly dilated fluid-filled distal small bowel loops with transition point likely within the pelvis. Developing small bowel obstruction cannot BE excluded. Bronchiectasis with surrounding consolidation involving the lung bases grossly similar to the prior study. Impression dictated by: Robert Brennan Jr., DIsrrael 04/19/2025 11:42 AM Dictation Location: [place] [address] Electronically authenticated by: [id number] Y Date: 04/19/2025 11:42 Dictated By: Robert Brennan M.D. Signed By: 04/19/25 1145 DD/ 1142 TD/TT: Cut Pressman:XR chest 1V Reviewed date:04/21/2025 08:11:08 AM Interpretation: Performing Lab: Notes/Report: Source Facility: [place] [address] [address] [address] XRay Report Signed Patient: LUIS SOLOMON MR#: [id number] : 1990 Acct:[id number] Age/Sex: 34 / M ADM Date: 04/19/25 Loc: ER Attending Dr: Ordering Physician: Comfort Costa Date of Service: 04/19/25 Procedure(s): XR chest 1V Accession Number(s): [id number] cc: NEETU BARBOZA ; Comfort Costa [place] [address] Patient Name: LUIS SOLOMON MRN: [id number] date: 1990 Sex: M Assigned Patient Location: ER Current Patient Location: ER Accession/Order Number: [id number] Exam Date: 04/19/2025 13:50 Report Date: 04/19/2025 14:17 At the request of: COMFORT COSTA MD Procedure: XR chest 1V Single view chest: CLINICAL HISTORY: NG placement verification COMPARISON: None FINDINGS: NG tube tip within the stomach. No free air. XR/XR chest 1V IMPRESSION: NG TUBE TIP WITHIN THE STOMACH. NO FREE AIR. Impression dictated by: Robert Brennan Jr., D.OAmber 04/19/2025 2:17 PM Dictation Location: [place] [address] Electronically authenticated by: [id number] Y Date: 04/19/2025 14:17 Dictated By: Robert Brennan M.D. Signed By: 04/19/25 1420 DD/ 1417 TD/TT: Cut Pressman:PROF Morales(COMP METB) Reviewed date:05/08/2024 09:48:13 AM Interpretation: Performing Lab: Notes/Report: [facility] ,Sxrfpd469655-918 mmol/LPotassium3.83.5-5.1 mmol/UEzimqovf60395-455 mmol/LCarbon Djgzwed18.521.0-32.0 mmol/LAnion Gap16.0Ycluoyz2026-575 mg/dLBlood Urea Emhpyxwq63.07.0-18.0 mg/dLCreatinine1.000.70-1.30 mg/dLEstimated GFR ( Cinthia>60>=60 mL/min/1.73m 2Estimated GFR (Non- Sabine>60>=60 mL/min/1.73m 2BUN Creatinine Ratio13.8Vwxspsm9.98.5-10.1 mg/dLBilirubin Total0.40.2-1.0 mg/dL Aspartate Amino Csqpjztijzz3741-99 U/LAlanine Muvlifiqszxgzbsa8011-17 U/L Alkaline Yyfdcdukbmm56369-770 U/LTotal Protein7.36.4-8.2 g/dLAlbumin Level3.9 3.4-5.0 g/dLGlobulin3.4Albumin Globulin Ratio1.1Performing Lab:see noteML - [facility] LBPROF CHEM 8 (BAS METB) Reviewed date:08/07/2024 06:53:14 PM Interpretation: Performing Lab: Notes/Report: [facility] [place] ,Llxmrp031488-883 mmol/LPotassium3.93.5-5.1 mmol/YBgmwbzvc15405-514 mmol/LCarbon Websrwv09.221.0-32.0 mmol/LAnion Gap11.1Ytzvqfc06829-152 mg/dLBlood Urea Zdcbgwlx55.07.0-18.0 mg/dLCreatinine0.900.70-1.30 mg/dLEstimated GFR ( Cinthia>60>=60 mL/min/1.73m 2Estimated GFR (Non- Sabine>60>=60 mL/min/1.73m 2BUN Creatinine Ratio16.7Enspmxv9.48.5-10.1 mg/dLPerforming Lab:see noteML - [facility] LBCBC AUTO DIFF Reviewed date:08/07/2024 08:50:25 AM Interpretation: Performing Lab: Notes/Report: [facility] ,White Blood Count17.64.0-11.0 10 3/uLRed Blood Count4.704.70-6.10 10 6/uL Dnidgflido90.514.0-18.0 g/nIWvmzzrsrsq95.042.0-54.0 %Mean Corpuscular Yvthpr45.2 80.0-94.0 fLMean Corpuscular Ojgvcvzstw43.725.9-34.0 pgMean Corpuscular HGB Conc 32.929.9-35.2 g/dLRed Cell Distribution Width13.211.0-15.0 %Platelet Kvrwh141 150-450 10 3/uLMean Platelet Cmzmkt91.89.5-13.5 fLNeutrophils Percent Auto93.4 43.0-75.0 %Lymphocytes Percent Auto2.820.5-60.0 %Monocytes Percent Auto2.91.7- 12.0 %Eosinophils Percent Auto0.40.9-7.0 %Basophils Percent Auto0.10.2-2.0 % Immature Granulocytes Pct Auto0.40.0-0.5 %Neutrophils Absolute Auto16.51.4-6.5 10 3/uLLymphocytes Absolute Auto0.51.2-3.8 10 3/uLMonocytes Absolute Auto0.50.3- 0.8 10 3/uLEosinophils Absolute Auto0.10.0-0.7 10 3/uLBasophils Absolute Auto0.0 0.0-0.1 10 3/uLImmature Granulocytes Abs Auto0.070.00-0.03 10 3/uLPerforming Lab:see noteML - [facility] LBPROF CHEM 8 (BAS METB) Reviewed date:08/06/2024 12:45:29 PM Interpretation: Performing Lab: Notes/Report: [facility] ,Heksuc422016-963 mmol/LPotassium4.13.5-5.1 mmol/DLedtpwvz01268-628 mmol/LCarbon Xsqxhph20.921.0-32.0 mmol/LAnion Gap14.4Cpznfmh34980-534 mg/dLBlood Urea Occquwuh42.07.0-18.0 mg/dLCreatinine0.980.70-1.30 mg/dLEstimated GFR ( Cinthia>60>=60 mL/min/1.73m 2Estimated GFR (Non- Sabine>60>=60 mL/min/1.73m 2BUN Creatinine Ratio12.7Hkbjylf0.78.5-10.1 mg/dLPerforming Lab:see noteML - [facility] LBLower Respiratory Culture Reviewed date:08/10/2024 03:10:26 PM Interpretation: Performing Lab: Notes/Report: [facility] ,Lower Respiratory CultureSee Below For Report Lower Respiratory Culture WILL FOLLOW Lower Respiratory CultureSpecimen has been received and testing has been initiated. Lower Respiratory Culture WILL FOLLOW Lower Respiratory CultureRoutine respiratory naey Lower Respiratory Culture WILL FOLLOW Lower Respiratory CulturePerformed at: - [facility] [place] Lower Respiratory Culture WILL FOLLOW Lower Respiratory [address] [place], [place] [id number] Lower Respiratory Culture WILL FOLLOW Lower Respiratory CultureLab Director: Yonny Pa PhD, Phone: [phone] Lower Respiratory Culture WILL FOLLOW Performing Lab:see note LC - [facility] LB SEE REPORT - Basket Maker Id information not found for OBX-specific broadcast producer legend Gram Stain Evaluation Reviewed date:08/10/2024 03:10:26 PM Interpretation: Performing Lab: Notes/Report: [facility] ,Gram Stain EvaluationSee Below For Report Gram Stain Evaluation This specimen is of good quality and is acceptable for routine Gram Stain Evaluationbacterial culture. Gram Stain Evaluation This specimen is of good quality and is acceptable for routine Performing Lab:see noteLC - [facility] LBResult 4 Reviewed date:08/10/2024 03:10:26 PM Interpretation: Performing Lab: Notes/Report: [facility] ,Result 4See Below For Report Result 4 CORONARY CARE UNIT NURSE Performing Lab:see noteLC - [facility] LBResult 3 Reviewed date:08/10/2024 03:10:26 PM Interpretation: Performing Lab: Notes/Report: [facility] ,Result 3See Below For Report Result 3 CORONARY CARE UNIT NURSE Performing Lab:see noteLC - [facility] LBResult 2 Reviewed date:08/10/2024 03:10:26 PM Interpretation: Performing Lab: Notes/Report: [facility] ,Result 2See Below For Report Result 2 CORONARY CARE UNIT NURSE Performing Lab:see noteLC - [facility] LBResult 1 [...] noteLC - [facility] LBCBC AUTO DIFF Reviewed date:08/10/2024 03:10:26 PM Interpretation: Performing Lab: Notes/Report: [facility] ,White Blood Count15.24.0-11.0 10 3/uLRed Blood Count4.774.70-6.10 10 6/uL Uudvneoaon20.614.0-18.0 g/qPZitvqqcpxl98.642.0-54.0 %Mean Corpuscular Vfpmxq45.2 80.0-94.0 fLMean Corpuscular Igkkjncwsp93.525.9-34.0 pgMean Corpuscular HGB Conc 32.729.9-35.2 g/dLRed Cell Distribution Width13.011.0-15.0 %Platelet Vlzez136 150-450 10 3/uLMean Platelet Abnmbk41.39.5-13.5 fLNeutrophils Percent Auto88.7 43.0-75.0 %Lymphocytes Percent Auto5.520.5-60.0 %Monocytes Percent Auto4.71.7- 12.0 %Eosinophils Percent Auto0.30.9-7.0 %Basophils Percent Auto0.10.2-2.0 % Immature Granulocytes Pct Auto0.70.0-0.5 %Neutrophils Absolute Auto13.51.4-6.5 10 3/uLLymphocytes Absolute Auto0.81.2-3.8 10 3/uLMonocytes Absolute Auto0.70.3- 0.8 10 3/uLEosinophils Absolute Auto0.00.0-0.7 10 3/uLBasophils Absolute Auto0.0 0.0-0.1 10 3/uLImmature Granulocytes Abs Auto0.110.00-0.03 10 3/uLPerforming Lab:see noteML - [facility] LBCBC AUTO DIFF Reviewed date:08/10/2024 03:10:26 PM Interpretation: Performing Lab: Notes/Report: [facility] ,White Blood Count24.74.0-11.0 10 3/uLRed Blood Count5.404.70-6.10 10 6/uL Jnedhaxmig56.714.0-18.0 g/hECkvsbfmxax83.542.0-54.0 %Mean Corpuscular Qttxat87.1 80.0-94.0 fLMean Corpuscular Mbhlhrhmqc42.125.9-34.0 pgMean Corpuscular HGB Conc 33.829.9-35.2 g/dLRed Cell Distribution Width13.211.0-15.0 %Platelet Tiorv833 150-450 10 3/uLMean Platelet Iuiwdf57.89.5-13.5 fLPerforming Lab:see noteML - [facility] LBDRUG SCREEN RAPID (URINE) Reviewed date:08/10/2024 03:10:26 PM Interpretation: Performing Lab: Notes/Report: [facility] ,Cannabinoid Screen UrinePOSITIVENEGATIVEPhencyclidine Screen UrineNEGATIVE NEGATIVECocaine Screen [...] 300 ng/mL Performing Lab:see noteML - [facility] LBLACTATE or LACTIC ACID Reviewed date:08/10/2024 03:10:26 PM Interpretation: Performing Lab: Notes/Report: [facility] ,Lactate/Lactic Acid1.90.4-2.0 mmol/LPerforming Lab:see note - [facility] LBMAGNESIUM Reviewed date:08/10/2024 03:10:26 PM Interpretation: Performing Lab: Notes/Report: Comment ok to add to ER labs [facility] ,Magnesium2.81.8-2.4 mg/dLPerforming Lab:see note - [facility] LB PROF 14(COMP METB) Reviewed date:08/10/2024 03:10:26 PM Interpretation: Performing Lab: Notes/Report: [facility] ,Efhmll033695-349 mmol/LPotassium3.63.5-5.1 mmol/SJucpnryj53806-818 mmol/LCarbon Vnivsru46.721.0-32.0 mmol/LAnion Gap10.1Yklnpqx75756-881 mg/dLBlood Urea Msuslkaz51.07.0-18.0 mg/dLCreatinine0.790.70-1.30 mg/dLEstimated GFR ( Cinthia>60>=60 mL/min/1.73m 2Estimated GFR (Non- Sabine>60>=60 mL/min/1.73m 2BUN Creatinine Ratio24.4Ydjelgt0.08.5-10.1 mg/dLBilirubin Total0.30.2-1.0 mg/dL Aspartate Amino Izjfomebidc336-12 U/LAlanine Gqyveulwasskymhy5968-95 U/LAlkaline Naqckomratq9638-745 U/LTotal Protein6.36.4-8.2 g/dLAlbumin Level3.33.4-5.0 g/dL Globulin3.0Albumin Globulin Ratio1.1Performing Lab:see noteML - [facility] LBBlood Culture 1 Reviewed date:08/18/2024 01:51:36 PM Interpretation: Performing Lab: Notes/Report: LEFT HAND [facility] ,Blood Culture 1See Below For Report Blood Culture 1 NG5D NO GROWTH AT 5 DAYS.^NO GROWTH AT 5 DAYS. Performing Lab:see noteML - [facility] LBBlood Culture 2 Reviewed date:08/18/2024 01:51:36 PM Interpretation: Performing Lab: Notes/Report: RIGHT AC [facility] ,Blood Culture 2See Below For Report Blood Culture 2 NG5D NO GROWTH AT 5 DAYS.^NO GROWTH AT 5 DAYS. Performing Lab:see noteML - [facility] LBCBC AUTO DIFF Reviewed date:08/10/2024 03:10:25 PM Interpretation: Performing Lab: Notes/Report: [facility] [place] ,White Blood Count13.34.0-11.0 10 3/uLRed Blood Count4.514.70-6.10 10 6/uL Gpccpnmhqb38.114.0-18.0 g/hNVivwebppwn58.342.0-54.0 %Mean Corpuscular Udeajr71.1 80.0-94.0 fLMean Corpuscular Qsopnoqshw46.025.9-34.0 pgMean Corpuscular HGB Conc 33.329.9-35.2 g/dLRed Cell Distribution Width13.011.0-15.0 %Platelet Umxjf092 150-450 10 3/uLMean Platelet Aopune24.59.5-13.5 fLNeutrophils Percent Auto89.5 43.0-75.0 %Lymphocytes Percent Auto4.820.5-60.0 %Monocytes Percent Auto3.21.7- 12.0 %Eosinophils Percent Auto1.10.9-7.0 %Basophils Percent Auto0.20.2-2.0 % Immature Granulocytes Pct Auto1.20.0-0.5 %Neutrophils Absolute Auto11.91.4-6.5 10 3/uLLymphocytes Absolute Auto0.61.2-3.8 10 3/uLMonocytes Absolute Auto0.40.3- 0.8 10 3/uLEosinophils Absolute Auto0.10.0-0.7 10 3/uLBasophils Absolute Auto0.0 0.0-0.1 10 3/uLImmature Granulocytes Abs Auto0.160.00-0.03 10 3/uLPerforming Lab:see noteML - [facility] [place] LBMAGNESIUM Reviewed date:08/10/2024 03:10:25 PM Interpretation: Performing Lab: Notes/Report: [facility] [place] ,Magnesium2.31.8-2.4 mg/dLPerforming Lab:see noteML - [facility] LB PROF 14(COMP METB) Reviewed date:08/10/2024 03:10:25 PM Interpretation: Performing Lab: Notes/Report: [facility] [place] ,[id number] mmol/LPotassium4.23.5-5.1 mmol/[id number] mmol/LCarbon Zqnqjvy86.021.0-32.0 mmol/LAnion Gap9.1Mkqfmmt32895-391 mg/dLBlood Urea Utybftfb18.07.0-18.0 mg/dLCreatinine0.810.70-1.30 mg/dLEstimated GFR ( Cinthia>60>=60 mL/min/1.73m 2Estimated GFR (Non- Sabine>60>=60 mL/min/1.73m 2BUN Creatinine Ratio23.9Egoqfam7.08.5-10.1 mg/dLBilirubin Total0.40.2-1.0 mg/dL Aspartate Amino Xmbqmqmbyyh078-62 U/LAlanine Uobyqflanbxwsohz0666-17 U/LAlkaline Uyqebxgmkda3822-949 U/LTotal Protein5.46.4-8.2 g/dLAlbumin Level2.53.4-5.0 g/dL Globulin2.9Albumin Globulin Ratio0.9Performing Lab:see noteML - [facility] LBCBC AUTO DIFF Reviewed date:08/11/2024 12:58:08 PM Interpretation: Performing Lab: Notes/Report: [facility] [place] ,White Blood Count15.54.0-11.0 10 3/uLRed Blood Count4.514.70-6.10 10 6/uL Epkfgxewdu33.914.0-18.0 g/wISgpwsgyfiu25.942.0-54.0 %Mean Corpuscular Melufs00.3 80.0-94.0 fLMean Corpuscular Yvcvklbrqo30.625.9-34.0 pgMean Corpuscular HGB Conc 33.229.9-35.2 g/dLRed Cell Distribution Width13.011.0-15.0 %Platelet Jirws114 150-450 10 3/uLMean Platelet Lpbenb59.59.5-13.5 fLNeutrophils Percent Auto89.9 43.0-75.0 %Lymphocytes Percent Auto3.920.5-60.0 %Monocytes Percent Auto3.61.7- 12.0 %Eosinophils Percent Auto0.30.9-7.0 %Basophils Percent Auto0.20.2-2.0 % Immature Granulocytes Pct Auto2.10.0-0.5 %Neutrophils Absolute Auto13.91.4-6.5 10 3/uLLymphocytes Absolute Auto0.61.2-3.8 10 3/uLMonocytes Absolute Auto0.60.3- 0.8 10 3/uLEosinophils Absolute Auto0.00.0-0.7 10 3/uLBasophils Absolute Auto0.0 0.0-0.1 10 3/uLImmature Granulocytes Abs Auto0.320.00-0.03 10 3/uLPerforming Lab:see noteML - [facility] LBMAGNESIUM Reviewed date:08/11/2024 12:58:08 PM Interpretation: Performing Lab: Notes/Report: [facility] [place] ,Magnesium2.21.8-2.4 mg/dLPerforming Lab:see noteML - [facility] LB PROF 14(COMP METB) Reviewed date:08/11/2024 12:58:08 PM Interpretation: Performing Lab: Notes/Report: [facility] [place] ,Irybvn031231-464 mmol/LPotassium4.23.5-5.1 mmol/DGdvkauvh91091-940 mmol/LCarbon Gpkecth09.221.0-32.0 mmol/LAnion Gap9.9Grpfjth02043-148 mg/dLBlood Urea Bwlgghky03.07.0-18.0 mg/dLCreatinine0.750.70-1.30 mg/dLEstimated GFR ( Cinthia>60>=60 mL/min/1.73m 2Estimated GFR (Non- Sabine>60>=60 mL/min/1.73m 2BUN Creatinine Ratio29.5Hjmsejf9.18.5-10.1 mg/dLBilirubin Total0.30.2-1.0 mg/dL Aspartate Amino Kccqwozuhyn618-11 U/LAlanine Ogcaazgtigmumlzt2919-93 U/LAlkaline Wzvksibyhlj7276-124 U/LTotal Protein5.26.4-8.2 g/dLAlbumin Level2.53.4-5.0 g/dL Globulin2.7Albumin Globulin Ratio0.9Performing Lab:see noteML - [facility] [place] LBINFLUENZA A AND B AG Reviewed date:08/11/2024 08:09:05 PM Interpretation: Performing Lab: Notes/Report: [facility] [place] ,Influenza Virus A AntigenNegative Negative for Flu [...] the test. Performing Lab:see noteML - [facility] [place] GBSWEV-LcO-3 Ag* Reviewed date:08/11/2024 08:09:05 PM Interpretation: Performing Lab: Notes/Report: [facility] [place] ,SARS-CoV-2 AgNEGATIVENEGATIVE This test has not been [...] revoked sooner. Performing Lab:see noteML - [facility] [place] LBCBC AUTO DIFF Reviewed date:08/12/2024 08:28:59 AM Interpretation: Performing Lab: Notes/Report: [facility] [place] ,White Blood Count15.14.0-11.0 10 3/uLRed Blood Count4.854.70-6.10 10 6/uL Ksjldmedxq62.814.0-18.0 g/lIZeunvzdnbx47.042.0-54.0 %Mean Corpuscular Ziicbz04.6 80.0-94.0 fLMean Corpuscular Uoxjwkshtv11.525.9-34.0 pgMean Corpuscular HGB Conc 32.929.9-35.2 g/dLRed Cell Distribution Width12.911.0-15.0 %Platelet Sewsh282 150-450 10 3/uLMean Platelet Ftpbwx54.39.5-13.5 fLNeutrophils Percent Auto89.0 43.0-75.0 %Lymphocytes Percent Auto4.320.5-60.0 %Monocytes Percent Auto4.11.7- 12.0 %Eosinophils Percent Auto0.40.9-7.0 %Basophils Percent Auto0.20.2-2.0 % Immature Granulocytes Pct Auto2.00.0-0.5 %Neutrophils Absolute Auto13.41.4-6.5 10 3/uLLymphocytes Absolute Auto0.61.2-3.8 10 3/uLMonocytes Absolute Auto0.60.3- 0.8 10 3/uLEosinophils Absolute Auto0.10.0-0.7 10 3/uLBasophils Absolute Auto0.0 0.0-0.1 10 3/uLImmature Granulocytes Abs Auto0.300.00-0.03 10 3/uLPerforming Lab:see noteML - [facility] LBVANCOMYCIN TROUGH Reviewed date:08/12/2024 01:31:23 PM Interpretation: Performing Lab: Notes/Report: [facility] [place] ,Vancomycin Gpwzcy30.45.0-20.0 ug/mLPerforming Lab:see noteML - [facility] LBWhite Blood Cells Reviewed date:08/18/2024 01:51:36 PM Interpretation: Performing Lab: Notes/Report: [facility] ,White Blood CellsSee Below For Report White Blood Cells White Blood CellsNone seen White Blood Cells Performing Lab:see noteLC - [facility] LBEpithelial Cells Reviewed date:08/18/2024 01:51:36 PM Interpretation: Performing Lab: Notes/Report: [facility] ,Epithelial CellsSee Below For Report Epithelial Cells Few Performing Lab:see note - [facility] LBResult 1 Reviewed date:08/18/2024 01:51:36 PM Interpretation: Performing Lab: Notes/Report: [facility] ,Result 1See Below For Report Result 1 Small amount of yeast seen. Performing Lab:see note - [facility] LBResult 2 Reviewed date:08/18/2024 01:51:36 PM Interpretation: Performing Lab: Notes/Report: [facility] ,Result 2See Below For Report Result 2 Few gram positive cocci Performing Lab:see note - [facility] LBResult 3 Reviewed date:08/18/2024 01:51:36 PM Interpretation: Performing Lab: Notes/Report: [facility] ,Result 3See Below For Report Result 3 *ABNORMAL* Result 3Rare gram negative rods. Result 3 *ABNORMAL* [facility] LBResult 4 Reviewed date:08/18/2024 01:51:36 PM Interpretation: Performing Lab: Notes/Report: [facility] ,Result 4See Below For Report Result 4 CORONARY CARE UNIT NURSE Performing Lab[facility] LBGram Stain Evaluation Reviewed date:08/18/2024 01:51:36 PM Interpretation: Performing Lab: Notes/Report: [facility] ,Gram Stain EvaluationSee Below For Report Gram Stain Evaluation This specimen is of good quality and is acceptable for routine Gram Stain Evaluationbacterial culture. Gram Stain Evaluation This specimen is of good quality and is acceptable for routine Performing Lab:[facility] LBLower Respiratory Culture Reviewed date:08/18/2024 01:51:36 PM [...] FOLLOW O:CANALB Isolated Lower Respiratory CulturePerformed at: [facility] Lower Respiratory Culture WILL FOLLOW O:CANALB Isolated Lower Respiratory [address] [place], [place] [id number] Lower Respiratory Culture WILL FOLLOW O:CANALB Isolated Lower Respiratory CultureLab Director: Yonny Pa PhD, Phone: [phone] Lower Respiratory Culture WILL FOLLOW O:CANALB Isolated Performing Lab:see note LC - [facility] LB SEE REPORT - Basket Maker Id information not found for OBX-specific broadcast producer legend Gram Stain Evaluation Reviewed date:08/18/2024 01:51:36 PM Interpretation: Performing Lab: Notes/Report: [facility] ,Gram Stain EvaluationSee Below For Report Gram Stain Evaluation This specimen is of good quality and is acceptable for routine Gram Stain Evaluationbacterial culture. Gram Stain Evaluation This specimen is of good quality and is acceptable for routine Performing Lab:see noteLC - [facility] LBCBC AUTO DIFF Reviewed date:02/24/2025 12:59:19 PM Interpretation: Performing Lab: Notes/Report: [facility] [place] ,White Blood Count11.44.0-11.0 10 3/uLRed Blood Count5.184.70-6.10 10 6/uL Ijmotcoriq84.014.0-18.0 g/kCBasurkxbom17.642.0-54.0 %Mean Corpuscular Hmltes44.2 80.0-94.0 fLMean Corpuscular Dpncvryptq37.025.9-34.0 pgMean Corpuscular HGB Conc 34.429.9-35.2 g/dLRed Cell Distribution Width13.711.0-15.0 %Platelet Uwrlw025 150-450 10 3/uLMean Platelet Lagxxd22.39.5-13.5 fLNeutrophils Percent Auto81.9 43.0-75.0 %Lymphocytes Percent Auto7.320.5-60.0 %Monocytes Percent Auto9.71.7- 12.0 %Eosinophils Percent Auto0.10.9-7.0 %Basophils Percent Auto0.70.2-2.0 % Immature Granulocytes Pct Auto0.30.0-0.5 %Neutrophils Absolute Auto9.31.4-6.5 10 3/uLLymphocytes Absolute Auto0.81.2-3.8 10 3/uLMonocytes Absolute Auto1.10.3- 0.8 10 3/uLEosinophils Absolute Auto0.00.0-0.7 10 3/uLBasophils Absolute Auto0.1 0.0-0.1 10 3/uLImmature Granulocytes Abs Auto0.030.00-0.03 10 3/uLPerforming Lab:see noteML - [facility] [place] LBINFLUENZA A AND B AG Reviewed date:02/25/2025 08:32:18 AM Interpretation: Performing Lab: Notes/Report: [facility] [place] ,Influenza Virus A AntigenNegative Negative for Flu [...] of the test. Performing Lab:see noteML - [facility] LBLIPASE Reviewed date:02/24/2025 12:59:19 PM Interpretation: Performing Lab: Notes/Report: [facility] [place] ,Cuwelc06.016.0-77.0 U/LPerforming Lab:see noteML - [facility] LBPROF 14(COMP METB) Reviewed date:02/24/2025 12:59:19 PM Interpretation: Performing Lab: Notes/Report: [facility] [place] ,Srltyg138045-140 mmol/LPotassium3.33.5-5.1 mmol/VSkusxqps26519-633 mmol/LCarbon Mahqsxx12.121.0-32.0 mmol/LAnion Gap14.3Gvbepjk33225-541 mg/dLBlood Urea Kvixxsdp58.07.0-18.0 mg/dLCreatinine0.860.70-1.30 mg/dLEstimated GFR ( Cinthia>60>=60 mL/min/1.73m 2Estimated GFR (Non- Sabine>60>=60 mL/min/1.73m 2BUN Creatinine Ratio11.6Tpdkqpb6.78.5-10.1 mg/dLBilirubin Total1.20.2-1.0 mg/dL Aspartate Amino Wdwmpxmewgu6274-79 U/LAlanine Yzjryawzkjbfdhfp4320-53 U/L Alkaline Oijsgnslard6317-897 U/LTotal Protein7.36.4-8.2 g/dLAlbumin Level3.83.4- 5.0 g/dLGlobulin3.5Albumin Globulin Ratio1.1Performing Lab:see note - [facility] LBRSV Reviewed date:02/25/2025 08:32:18 AM Interpretation: Performing Lab: Notes/Report: [facility] [place] ,Respiratory Syncytial VirusNot DetectedNOT DETECTEPerforming Lab:see note - [facility] OXRGJA-IgP-9 Ag* Reviewed date:02/25/2025 08:32:18 AM Interpretation: Performing Lab: Notes/Report: [facility] [place] ,SARS-CoV-2 AgNEGATIVENEGATIVE This test has not been [...] is revoked sooner. Performing Lab:see noteML - [facility] LBWhite Blood Cells Reviewed date:03/03/2025 08:35:52 AM Interpretation: Performing Lab: Notes/Report: [facility] ,White Blood CellsSee Below For Report White Blood Cells White Blood CellsMany White Blood Cells Performing Lab:see noteLC - [facility] LBEpithelial Cells Reviewed date:03/03/2025 08:35:52 AM Interpretation: Performing Lab: Notes/Report: [facility] ,Epithelial CellsSee Below For Report None seen Epithelial Cells Performing Lab:see noteLC - [facility] LB Reason For Referral No Information Medications Medication SIG (Take, Route, Frequency, Duration) Notes Start Date End Date Status Albuterol Sulfate (2.5 MG/3ML) 0.083% 3 mL as needed Inhalation every 6 hrs; Duration: 30 days ActivePantoprazole Sodium 40 MG1 tablet Orally bidActiveNebulizer -Use as directed with albuterol DX: J45.5015ActiveOxygen -as directed dx asthma Daily at night; Duration: 30 days05/31/2016ActiveAlbuterol Sulfate HFA 108 (90 Base) MCG/ACT1-2 puff as needed Inhalation every 4 hrs; Duration: 30 daysActive Asmanex HFA 100 MCG/ACT2 puffs in the evening Inhalation Once a dayActive Immunizations Vaccine Route Administration Date Status Comme nts Flu, (99306) -historic- Whole Unknown 03/20/2015 Admini stered Flu, (92796) -historic- IzlguNqmetbc42/03/2025AdministeredFlu, Fluzone (10678) 6 mos+, single-dose syringe/vial (1777-4945)Ejmyjtd5203/16/2016AdministeredFlu, Fluzone (45652) 6 mos+, single-dose syringe/vial (5083-0438)Ykvziud2704/02/2019 AdministeredFlu, HmcuurgzaubSluxhly79/28/2016AdministeredHep B, Adult, Dose 1 Ngvucbz5403/26/2007dministeredHep B, Adult, Dose 0Wzkowsk95/30/dministered Hep B, Adult, Dose 9Paqzkkf21/29/dministeredMeningococcal (Menomune)Unknown 03/26/2007dministeredPneumococcal (Pneumovax 23)Dcgwpkm0212/14/2015Administered Pneumococcal (Pneumovax 23)Gjrttxf7411/10/2016AdministeredPneumococcal (Prevnar 13)Xosxbwc8203/02/2016AdministeredTdap (Boostrix)Wlmrvsa8804/14/2022dministeredTdap (Boostrix)Sjkuask97/04/2024Administered Social History Tobacco Use: Social History Observation Description Date Details (start date - stop date) Former Smoker NA - NA Tobacco Use/Smoking Question Answer Notes Patient is a former smoker How long has it been since you last smoked?1-3 monthsAUDIT-C (Standard) Question Answer Notes Did you have a drink containing alcohol in the p ast year? No Dsxhmk6OqdjunaassnozeVlppbedk Problems Problem Type SNOMED Code ICD Code Onset Dates Problem Status W/U Status Risk Notes Problem Malnutrition of mild degree (Hassan: 75% to less than 90% of standard weight) (04007751) Mild protein-calorie malnutrition (E44.1) ActiveconfirmedProblemCannabis abuse (80018352)Cannabis abuse, uncomplicated (F12.10)ActiveconfirmedProblemPrimary insomnia (7214660)Primary insomnia (F51.01)ActiveconfirmedProblemAcute exacerbation of bronchiectasis (335580137) Bronchiectasis with acute lower respiratory infection (J47.0)Activeconfirmed ProblemAcute exacerbation of bronchiectasis (922257448)Bronchiectasis with (acute) exacerbation (J47.1)ActiveconfirmedProblemChronic respiratory failure (26150631)Chronic respiratory failure with hypoxia (J96.11)Activeconfirmed WricvgjNonuz-ng-hqotauq hypoxemic respiratory failure (88169721122214154)Acute and chronic respiratory failure with hypoxia (J96.21)ActiveconfirmedProblemPain of right shoulder region (finding) (7191896350)Pain in right shoulder (M25.511) 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 (746379757)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 confirmedProblemShortness of breath (087562540)Shortness of breath (R06.02) ActiveconfirmedProblemAsthma (826099432)Asthma (J45.909)ActiveconfirmedProblem COPD - Chronic obstructive pulmonary disease (35746560)COPD (chronic obstructive pulmonary disease) (J44.9)ActiveconfirmedProblemGastroesophageal reflux disease (203239508)GERD (gastroesophageal reflux disease) (K21.9)ActiveconfirmedProblem Anxiety (26195836)Anxiety (F41.9)ActiveconfirmedProblemPneumonia (400231938) Pneumonia (J18.9)ActiveconfirmedProblemDepression (036232699)Depression (F32.9) ActiveconfirmedProblemDyspnea (300905542)Dyspnea (R06.00)ActiveconfirmedProblem Insomnia (250370085)Insomnia (G47.00)ActiveconfirmedProblemCannabis abuse (40138083)Marijuana abuse (F12.10)ActiveconfirmedProblemIrritable bowel syndrome (20228315)IBS (irritable bowel syndrome) (K58.9)ActiveconfirmedProblem Generalized anxiety disorder (77452629)SHAWNEE (generalized anxiety disorder) (F41.1)ActiveconfirmedProblemBronchitis (07738759)Bronchitis (J40)Active confirmedProblemExacerbation of asthma (965093689)Asthma exacerbation (J45.901) ActiveconfirmedProblemGastroesophageal reflux disease with esophagitis (326842510)Gastroesophageal reflux disease with esophagitis (K21.0)Active confirmedProblemAcute exacerbation of chronic obstructive airways disease (492152864)COPD exacerbation (J44.1)ActiveconfirmedProblemHome oxygen therapy (152815188)On home oxygen therapy (Z99.81)ActiveconfirmedProblemBronchiectasis (46775510)Bronchiectasis (J47.9)ActiveconfirmedProblemMixed anxiety and depressive disorder (256016669)Depression with anxiety (F41.8)Activeconfirmed ProblemUncomplicated severe persistent asthma (663161129)Uncomplicated severe persistent asthma (J45.50)ActiveconfirmedProblemChronic hypoxemic respiratory failure (055379577)Chronic hypoxemic respiratory failure (J96.11)Activeconfirmed ProblemAspiration pneumonitis (270666961)Aspiration pneumonitis (J69.0)Active confirmedProblemExacerbation of asthma (640740198)Acute asthma exacerbation (J45.901)ActiveconfirmedProblemAcute exacerbation of bronchiectasis (216245296) Bronchiectasis with acute exacerbation (J47.1)ActiveconfirmedProblemPanic attack (933751955)Panic attack (F41.0)ActiveconfirmedProblemGastro-esophageal reflux disease (834873432)Gastro-esophageal reflux disease (K21.9)Activeconfirmed ProblemAcute exacerbation of bronchiectasis (104253503)Acute exacerbation of bronchiectasis (J47.1)ActiveconfirmedProblemLeukocytosis (884213114)Elevated WBCs (D72.829)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)ActiveconfirmedProblemMixed anxiety and depressive disorder (795089939) Anxiety and depression (F41.8)ActiveconfirmedProblemNondependent alcohol abuse in remission (552218000)Alcohol abuse, in remission (F10.11)Activeconfirmed ProblemMalnutrition of mild degree (Hassan: 75% to less than 90% of standard weight) (52154316)Mild protein malnutrition (E44.1)ActiveconfirmedProblemOpioid dependence in remission (644411500)Narcotic dependence, in remission (F11.21) ActiveconfirmedProblemPatient's noncompliance with dietary regimen for other reason (Z91.118)ActiveconfirmedProblemNoncompliance with treatment (finding) (8159784)Noncompliance with treatment plan (Z91.199)Activeconfirmed Vital Signs Temperature 97.4 degrees Fahrenheit 03/03/2025 Qnndnzsy51 %04/27/2025lood pressure okdcmuvgc09 mm Hg04/27/20258481Hdowzd24.75 in 04/27/2025lood pressure gqmfdgen547 mm Hg04/27/20251809Oioihy772.0 lbs106/28/2024MI 22.32 kg/m204/27/2025 Encounters Encounter Location Date Provider Diagnosis [address] [address] 07/08/2024 Neetu Barboza Contusion of ribs S20.219A and H/O fall Z91.[address] [address] 08/18/2024 Neetu Barboza Chronic respiratory failure with hypoxia J96.[address] [address] 01/23/2025 Neetunenita Barboza Chronic hypoxemic respiratory failure J96.11 and Insomnia G47.[address] [address] 03/03/2025 Neetu Alverto Bronchiectasis with acute exacerbation J47.1 [facility] [address] [facility] [place] [address] 04/13/2025 Neetu Alverto Pneumonia J18.9 [facility] [address] [facility] [place] [address] 04/27/2025 Neetu Alverto Bronchiectasis with acute exacerbation J47.1 and Small bowel obstruction K56.609 [facility] [address] [facility] [place] [address] 05/12/2024 Neetu Alverto [facility] [place] [facility] [place] [address] 08/13/2024[facility] [place] [facility] [place] [address]/[facility] [place] [facility] [place] [address]/10/2024P[facility]ela TonymerAnxiety F41.9[facility] [place] [facility] [place] [address]/ Neetunenita JimenezmerWellness examination Z00.00[place] [address] [facility] [place] [address]/11/2024[facility] [place] [facility] [place] [address]/12/2024Pamela CramerBronchiectasis with acute exacerbation J47.1 Assessments Encounter [...] doxy, add oral prednisone fu as needed 04/27/2025ronchiectasis with acute exacerbation (ICD-10 - J47.1) to ER for eval sx started over weekend and feeling worse 04/27/2025Small bowel obstruction (ICD-10 - K56.609) feeling better eating some passing gas 12/31/2024nxiety (ICD-10 - F41.9)02/16/2025Wellness examination (ICD-10 - Z00.00)03/04/2025ronchiectasis with acute exacerbation (ICD-10 - J47.1) Plan Of Treatment Pending Test Test Name Order Date CMP (COMPLETE METABOLIC PANEL) 4 CBC WITH DIFF (EXP 03/2025) 09/18/2023 IGE 04/12/2016 IGG 04/12/2016 IGG SUBCLASSES 04/12/2016 CBC 02/16/2025 PFT w/Bronchodillator and Body Box-perfo rmed 04/12/2016 CMP - Comprehensive Metabolic Panel 01/27 GLYCOHEMOGLOBIN A1C 02/16/2025 LIPID PROFILE 02/16/2025 THYROID PANEL (T4/TSH/FREE T3) Next Appt Details Provider Name:Neetu nickerson, 06/04/2025 01:00:00 PM, [address] [facility], [place], [address], Insurance Providers Payer Name Payer Address Payer Phone Subscriber Number Group Number Insured Name Patient Relationship to Insured Coverage Start Date Coverage End Date [employer]ICARE [address] [address] [place] [address] [id number] Luis Solomon Self - patient is the insured 4 4 [employer] MED[employer] ADV PLAN [address] [place] [address] [phone] [id number] [facility] Solomon Self - patient is the insured 5 MEDICAID [place] [address] [facility] [place] [id number] [phone], Troy[place] - patient is the [id number] 2011 Medical (General) History Medical History History [...] reflux disease K21.9 Surgical History Surgery Date(Month/Year) TEF at EGD- esophagus peozpgvric66/1392RHR45/24Facial Reconstruction Rt side. Metal plate rt side of faceHospitalization History Reason Date(Month/Year) Resp issues 03/21 ABD Pain - Annette another stay for Pneumo martha 11/2024 Pneumonia 2024 Pneumonia 2023 multiple times for resp issues
[2025-04-27] MEDS: IPRATROPIUM/ALBUTEROL SULFATE 3 ML AMPUL.NEB IH (14:10)
[2025-04-27 14:19] LABS: Hematocrit 44.4 % (42.0-54.0); Hemoglobin 15.2 g/dL (14.0-18.0); Immature Granulocytes Abs Auto 0.02 10^3/uL (0.00-0.03); Immature Granulocytes Pct Auto 0.2 % (0.0-0.5); Lymphocytes Absolute Auto 1.4 10^3/uL (1.2-3.8); Mean Corpuscular HGB Conc 34.2 g/dL (29.9-35.2); Mean Corpuscular Hemoglobin 29.1 pg (25.9-34.0); Mean Corpuscular Volume 85.1 fL (80.0-94.0); Platelet Count 256 10^3/uL (150-450); Red Blood Count 5.22 10^6/uL (4.70-6.10); White Blood Count 8.7 10^3/uL (4.0-11.0)
--- NOTE | 2025-04-27 14:21 | ED.SOB1 ---
HPI - SOB/Dyspnea General Chief Complaint: Shortness of Breath/Dyspnea Stated Complaint: FLU LIKE SYMPTOMS SOB Time Seen by Provider: 04/27/25 13:58 Source: patient Mode of arrival: Wheelchair Limitations: no limitations History of Present Illness HPI Narrative: The patient is a 34-year-old male presenting to the ER with shortness of breath has been going on at least for the last few days, that he has been having some greenish sputum, he did go to the [employer] yesterday and was in the cold, he also mentioned that he has been having exposure to his aunt to have a viral infection, the patient have a history of asthma as well as use of oxygen at home as needed. And he mentioned that he has been using his oxygen more at home The patient also have a history of bronchiectasis when he was younger Last time he was evaluated here in the ER he was transferred to for possible small bowel obstruction where apparently the patient had just supportive measures Patient have no abdominal pain at the moment no nausea no vomiting no other concerns The patient is supposed to use 2 L nasal cannula at home as a baseline when needed Related Data Home Medications ?Medication ?Instructions ?Recorded ?Confirmed trazodone 50 mg tablet 50 mg PO BEDTIME PRN sleep 09/13/23 04/19/25 dexlansoprazole 60 mg 60 mg PO DAILY 04/19/25 04/19/25 capsule,biphase delayed release Previous Rx's ?Medication ?Instructions ?Recorded albuterol sulfate 2.5 mg/3 mL 2.5 mg (3 mL) inhalation Q6H PRN 05/25/23 (0.083 %) solution for nebulization shortness of breath or wheezing #75 mL albuterol sulfate 90 mcg/actuation 1 inh inhalation Q4H PRN shortness 03/22/24 aerosol inhaler of breath or wheezing #8.5 grams doxycycline hyclate 100 mg tablet 100 mg PO BID 7 days #14 tabs 04/09/25 ibuprofen 600 mg tablet 600 mg PO Q8H PRN pain #20 tabs 04/09/25 guaifenesin 600 mg tablet, 600 mg PO BID PRN cough #14 tabs 04/27/25 extended release 12 hr (Mucinex) prednisone 20 mg tablet 40 mg (2 x 20 mg) PO DAILY 5 days 04/27/25 #10 tabs Allergies Allergy/AdvReac Type Severity Reaction Status Date / Time Penicillins Allergy Intermediate Hives Verified 04/27/25 13:56 Review of Systems ROS Status of ROS 10 or more systems reviewed and unremarkable except as noted in history and below [facility] Medical History (Updated 04/27/25 @ 15:34 by Comfort Stewart MD) Bronchiectasis ?J47.9 - Bronchiectasis, uncomplicated (ICD-10) Healthcare-associated pneumonia ?J18.9 - Pneumonia, unspecified organism (ICD-10) Asthma exacerbation ?J45.901 - Unspecified asthma with (acute) exacerbation (ICD-10) Hypoxemia ?R09.02 - Hypoxemia (ICD-10) Multifocal pneumonia ?J18.9 - Pneumonia, unspecified organism (ICD-10) Respiratory failure ?J96.90 - Respiratory failure, unspecified, unspecified whether with hypoxia or hypercapnia (ICD-10) Constipation ?K59.00 - Constipation, unspecified (ICD-10) Nausea and vomiting ?R11.2 - Nausea with vomiting, unspecified (ICD-10) Tobacco abuse ?Z72.0 - Tobacco use (ICD-10) Acute hypoxic respiratory failure ?J96.01 - Acute respiratory failure with hypoxia (ICD-10) Insomnia ?G47.00 - Insomnia, unspecified (ICD-10) Hypernatremia ?E87.0 - Hyperosmolality and hypernatremia (ICD-10) Right lower lobe pneumonia ?J18.9 - Pneumonia, unspecified organism (ICD-10) Lactic acidosis ?E87.20 - Acidosis, unspecified (ICD-10) Chronic hypoxic respiratory failure, on home oxygen therapy ?J96.11 - Chronic respiratory failure with hypoxia (ICD-10) ?Z99.81 - Dependence on supplemental oxygen (ICD-10) Asthma exacerbation ?J45.901 - Unspecified asthma with (acute) exacerbation (ICD-10) Upper respiratory infection ?J06.9 - Acute upper respiratory infection, unspecified (ICD-10) Esophagitis with gastritis ?K29.70 - Gastritis, unspecified, without bleeding (ICD-10) ?K20.90 - Esophagitis, unspecified without bleeding (ICD-10) Leukocytosis ?D72.829 - Elevated white blood cell count, unspecified (ICD-10) Dyspnea ?R06.00 - Dyspnea, unspecified (ICD-10) Hypoxia ?R09.02 - Hypoxemia (ICD-10) Depression with anxiety ?F41.8 - Other specified anxiety disorders (ICD-10) Steroid-induced hyperglycemia ?R73.9 - Hyperglycemia, unspecified (ICD-10) ?T38.0X5A - Adverse effect of glucocorticoids and synthetic analogues, initial encounter (ICD-10) Hyponatremia ?E87.1 - Hypo-osmolality and hyponatremia (ICD-10) Chest wall pain ?R07.89 - Other chest pain (ICD-10) Pneumonia ?J18.9 - Pneumonia, unspecified organism (ICD-10) Malnutrition of moderate degree ?E44.0 - Moderate protein-calorie malnutrition (ICD-10) Depression ?F32.A - Depression, unspecified (ICD-10) Bronchiectasis ?J47.9 - Bronchiectasis, uncomplicated (ICD-10) Upper respiratory infection ?J06.9 - Acute upper respiratory infection, unspecified (ICD-10) Acute hypokalemia ?E87.6 - Hypokalemia (ICD-10) Avulsion of skin ?T14.8XXA - Other injury of unspecified body region, initial encounter (ICD-10) Influenza ?J11.1 - Influenza due to unidentified influenza virus with other respiratory manifestations (ICD-10) Marijuana abuse ?F12.10 - Cannabis abuse, uncomplicated (ICD-10) Coronavirus infection ?B34.2 - Coronavirus infection, unspecified (ICD-10) Pneumonia ?J18.9 - Pneumonia, unspecified organism (ICD-10) Hospital-acquired bacterial pneumonia ?J15.9 - Unspecified bacterial pneumonia (ICD-10) COVID-19 ?U07.1 - COVID-19 (ICD-10) GERD (gastroesophageal reflux disease) ?K21.9 - Gastro-esophageal reflux disease without esophagitis (ICD-10) 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 - Pyothorax with fistula (ICD-10) Shortness of breath ?R06.02 - Shortness of breath (ICD-10) Chronic dyspnea ?R06.09 - Other forms of dyspnea (ICD-10) Viral infection ?B34.9 - Viral infection, unspecified (ICD-10) Hypoxia ?R09.02 - Hypoxemia (ICD-10) Acute asthma exacerbation ?J45.901 - Unspecified asthma with (acute) exacerbation (ICD-10) Bronchitis ?J40 - Bronchitis, not specified as acute or chronic (ICD-10) History of home oxygen therapy ?Z99.81 - Dependence on supplemental oxygen (ICD-10) Oxygen desaturation during sleep ?G47.34 - 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) History of gastrostomy tube placement Abdominal pain, acute ?R10.9 - Unspecified abdominal pain (ICD-10) Surgical History History of fundoplication ?Z98.890 - Other specified postprocedural states (ICD-10) History of appendectomy ?Z90.49 - Acquired absence of other specified parts of digestive tract (ICD-10) H/O chest tube placement ?Z98.890 - Other specified postprocedural states (ICD-10) History of facial surgery ?Z98.890 - Other specified postprocedural states (ICD-10) Family History Mother Family history of diabetes mellitus Family history of hypertension Grandmother Family history of diabetes mellitus Grandfather Family history of myocardial infarction Social History Within the past year, how often did you have a drink containing alcohol: monthly or less Within the past year, how many standard drinks containing alcohol did you have on a typical day: 1 or 2 Within the past year, how often did you have six or more drinks on one occasion: less than monthly Total score: 1 Score interpretation: A score less than 4 is consistent with normal alcohol consumption. Smoking status: Former smoker Nicotine containing products detail: quit smoking 4 months ago Non-prescribed substance use: cannabis (any form) Previous occupational history: [employer] Known occupational exposures/hazards: No Highest level of school completed/degree received: high school graduate Are you now , , , , never or living with a partner: In a typical week, how many times do you talk on the telephone with family, friends, or neighbors: 3 or more times per week How often do you get together with friends or relatives: once per week How often do you attend samaritan or gnosticist services: never Do you belong to any clubs or organizations such as samaritan groups unions, fraternal or athletic groups, or school groups: no Total score: 1 Score interpretation: A score of less than or equal to 1 indicates the most socially isolated. Little interest or pleasure in doing things: not at all Feeling down, depressed, or hopeless: not at all Feel stressed/tense/nervous/anxious/difficulty sleeping: not at all Do you think of yourself as: straight/heterosexual Gender Identity: male Exam Narrative Exam Narrative: Nurses notes and vital signs reviewed and patient is not hypoxic. General: Well-appearing and in no apparent distress. Skin: Warm, dry, no pallor noted. No rash. Head: Normocephalic, atraumatic. Neck: Supple, non-tender. Cardiovascular: Regular Rate and Rhythm without murmur, gallop or rub. Respiratory: No accessory muscle use or respiratory distress. Lungs are clear to auscultation, no wheezing, some rhonchi heard with taking a deep breath Chest Wall: no tenderness there is scars of previous surgery on the right side posteriorly Musculoskeletal: normal ROM, no calf or popliteal tenderness, no lower extremity edema/swelling GI: Abdomen is soft, non-distended. Normal bowel sounds. No masses appreciated. No tenderness to palpation. No rebound, guarding, or rigidity noted. Neurological: A&O x4. No cranial nerve dysfunction observed.. Constitutional Vital Signs, click to edit/add: Last Vital Signs Temp 98.2 F 04/27/25 13:53 Pulse 92 H 04/27/25 14:45 Resp 25 H 04/27/25 14:45 BP 123/66 04/27/25 13:53 Pulse Ox 94 L 04/27/25 15:30 O2 Del Method Room Air 04/27/25 14:16 Course Vital Signs Vital signs: Vital Signs Temperature 98.2 F 04/27/25 13:53 Pulse Rate 100 H 04/27/25 13:53 Respiratory Rate 24 H 04/27/25 13:53 Blood Pressure 123/66 04/27/25 13:53 Pulse Oximetry 97 04/27/25 13:53 Oxygen Delivery Method Room Air 04/27/25 13:53 Temperature 98.2 F 04/27/25 13:53 Pulse Rate 92 H 04/27/25 14:45 Respiratory Rate 25 H 04/27/25 14:45 Blood Pressure 123/66 04/27/25 13:53 Pulse Oximetry 94 L 04/27/25 15:30 Oxygen Delivery Method Room Air 04/27/25 14:16 MDM - SOB/Dyspnea MDM Narrative Medical decision making narrative: The patient EKG showing sinus rhythm with a heart rate of [address] elevation or depression the patient is known to us he had multiple presentation with similar History and he have a history of chronic lung changes in the right lower lung, with a picture of bronchiectasis was obvious on previous studies The patient was just treated with antibiotic almost within the last month, he right now was treated with Solu-Medrol as well as breathing treatment in the ER he already has nebulizer at home and he have enough medication to continue taking breathing treatment. The patient does not have any desaturation or distress here in the ER and he had no drop when walking for few steps in the ER with no difficulty breathing on exam His presentation could be secondary to viral illness secondary to exposure to his aunt but his COVID and flu test are negative The patient was discharged home with prednisone for the next few days with instruction to come back in case of any worsening of symptoms The patient chest x-ray showed no acute pathology compared to old EKG Explained to the patient that he need to make sure that he follow-up with pulmonary which he said he did and he supposed to see them in the next few months The patient to follow-up with the primary care within 2 to 3 days and to come back to the ER in case of any worsening of the current symptoms or any new symptoms or concerns Lab Data Labs: Lab Results 04/27/25 04/27/25 Range/Units 14:10 14:12 WBC 8.7 (4.0-11.0) 10^3/uL RBC 5.22 (4.70-6.10) 10^6/uL Hgb 15.2 (14.0-18.0) g/dL Hct 44.4 (42.0-54.0) % MCV 85.1 (80.0-94.0) fL MCH 29.1 (25.9-34.0) pg MCHC 34.2 (29.9-35.2) g/dL RDW 13.0 (11.0-15.0) % Plt Count 256 (150-450) 10^3/uL MPV 11.6 (9.5-13.5) fL Neut % (Auto) 74.8 (43.0-75.0) % Lymph % (Auto) 15.6 L (20.5-60.0) % Morton % (Auto) 8.0 (1.7-12.0) % Eos % (Auto) 0.5 L (0.9-7.0) % Baso % (Auto) 0.9 (0.2-2.0) % Neut # (Auto) 6.5 (1.4-6.5) 10^3/uL Lymph # (Auto) 1.4 (1.2-3.8) 10^3/uL Morton # (Auto) 0.7 (0.3-0.8) 10^3/uL Eos # (Auto) 0.0 (0.0-0.7) 10^3/uL Baso # (Auto) 0.1 (0.0-0.1) 10^3/uL Abs Immat Gran (auto) 0.02 (0.00-0.03) 10^3/uL Imm/Tot Granulo (auto) 0.2 (0.0-0.5) % D-Dimer <0.19 (<=0.59) mg/L FEU Sodium 142 (136-145) mmol/L Potassium 3.8 (3.5-5.1) mmol/L Chloride 105 (98-107) mmol/L Carbon Dioxide 30.2 (21.0-32.0) mmol/L Anion Gap 10.6 BUN 8.0 (7.0-18.0) mg/dL Creatinine 0.87 (0.70-1.30) mg/dL Est GFR ( Amer) >60 (>=60 mL/min/1.73m^2) Est GFR (Non-Af Amer) >60 (>=60 mL/min/1.73m^2) BUN/Creatinine Ratio 9.2 Glucose 95 (74-106) mg/dL Lactate 0.9 (0.4-2.0) mmol/L Calcium 8.9 (8.5-10.1) mg/dL Total Bilirubin 0.7 (0.2-1.0) mg/dL AST 13 L (15-37) U/L ALT 21 (16-63) U/L Alkaline Phosphatase 112 (46-116) U/L Troponin I High Sens 5.9 (4.0-76.1) pg/mL Total Protein 7.3 (6.4-8.2) g/dL Albumin 3.9 (3.4-5.0) g/dL Globulin 3.4 g/dL Albumin/Globulin Ratio 1.1 Influenza Type A Ag Negative Influenza Type B Ag Negative SARS-CoV-2 Ag (CV2AG) Negative (NEGATIVE) Discharge Plan Discharge Chief Complaint: Shortness of Breath/Dyspnea Clinical Impression: Bronchitis Patient Disposition: Home, Self-Care Time of Disposition Decision: 15:34 Condition: Good Prescriptions / Home Meds: New prednisone 20 mg tablet 40 mg PO DAILY 5 Days Qty: 10 0RF guaifenesin [Mucinex] 600 mg tablet extended release 12hr 600 mg PO BID PRN (Reason: cough) Qty: 14 0RF No Action trazodone 50 mg tablet 50 mg PO BEDTIME PRN (Reason: sleep) albuterol sulfate 90 mcg/actuation HFA aerosol inhaler 1 inh inhalation Q4H PRN (Reason: shortness of breath or wheezing) Qty: 8.5 0RF ibuprofen 600 mg tablet 600 mg PO Q8H PRN (Reason: pain) Qty: 20 0RF doxycycline hyclate 100 mg tablet 100 mg PO BID 7 Days Qty: 14 0RF albuterol sulfate 2.5 mg /3 mL (0.083 %) solution for nebulization 2.5 mg inhalation Q6H PRN (Reason: shortness of breath or wheezing) Qty: 75 0RF dexlansoprazole 60 mg capsule,biphase delayed releas 60 mg PO DAILY Print Language: German Instructions: Acute Bronchitis (ED) Referrals: REBEKAH BARBOZA [Primary Care Provider, Family Practice] - 1 week
[2025-04-27] MEDS: METHYLPREDNISOLONE SOD SUCC PF 125 MG/2 ML VIAL IVP (14:26)
[2025-04-27 14:32] LABS: SARS-CoV-2 Ag NEGATIVE (NEGATIVE)
[2025-04-27 14:36] LABS: Lactate/Lactic Acid 0.9 mmol/L (0.4-2.0)
[2025-04-27 14:37] LABS: Alanine Aminotransferase 21 U/L (16-63); Albumin Globulin Ratio 1.1; Albumin Level 3.9 g/dL (3.4-5.0); Alkaline Phosphatase 112 U/L (46-116); Anion Gap 10.6; Aspartate Amino Transferase 13 U/L (15-37); Blood Urea Nitrogen 8.0 mg/dL (7.0-18.0); Calcium 8.9 mg/dL (8.5-10.1); Carbon Dioxide 30.2 mmol/L (21.0-32.0); Chloride 105 mmol/L (98-107); Estimated GFR (African America >60 (>=60 mL/min/1.73m^2); Estimated GFR (Non-African Ame >60 (>=60 mL/min/1.73m^2); Globulin 3.4 g/dL; Glucose 95 mg/dL (74-106); Potassium 3.8 mmol/L (3.5-5.1); Sodium 142 mmol/L (136-145); Total Protein 7.3 g/dL (6.4-8.2)
== END 2025-04-27 15:59 | disposition home or self-care (01) ==
PROVIDERS: Emergency Provider Emergency Medicine; PCP Nurse Practitioner Family
DX: J40 Bronchitis, not specified as acute or chronic (principal); Z87.891 Personal history of nicotine dependence; R06.02 Shortness of breath
CPT/HCPCS: 36415; 71045; 80053; 83605; 84484; 85025; 85378; 87804; 87811; 93005; 94640; 96374; 99285; J2919

== ENCOUNTER 2025-05-11 09:55 | Emergency (ER) | payer MEDICARE, MEDICAID, SELFPAY ==
--- OUTSIDE RECORDS SUMMARY | 2025-05-03 11:24 | XMS_ITS | Continuity of Care Document ---
Author Organization [facility] Address Unknown Care Team Providers Care Salesperson [employer] Name Role Phone REBEKAH BARBOZA Primary Care Physician [phone] Encounter FT_FIN [id number] Date(s): 04/30/25 - 05/03/[address] [address] Encounter Diagnosis Bronchiectasis(Discharge Diagnosis) - 05/01/25 On deep vein thrombosis (DVT) prophylaxis(Discharge Diagnosis) - 05/01/25 Back pain(Discharge Diagnosis) - 05/02/25 Bronchitis(Discharge Diagnosis) - 05/01/25 RLQ abdominal pain(Discharge Diagnosis) - 04/30/25 Closed head injury(Discharge Diagnosis) - 04/30/25 Hypokalemia(Discharge Diagnosis) - 05/01/25 Sepsis(Discharge Diagnosis) - 05/01/25 Syncope(Discharge Diagnosis) - 04/30/25 Pneumonia(Discharge Diagnosis) - 05/01/25 Discharge Disposition: Home (Routine DC) Attending Physician: Laisha KENNEDY DO Admitting Physician: Laisha KENNEDY DO Encounter Type: Inpatient Allergies, Adverse Reactions, Alerts SubstanceCriticalitySeverityReactionReaction SeverityStatuspenicillinHivesActive Treatment Plan Extracted from:Title:Discharge NoteAuthor:OJUKWU MD, MbanefoDate:05/03/25 Stable Discharge To, Anticipated II - Home independently Discharged to - Home independently Transported by, Anticipated - Family Home Discharge Diet(s): Regular, Drink liquids and eat a light meal (05/02/25 11:05:00) Prescriptions Bentyl 10 mg Cap, 10 mg= 1 cap(s), Oral, QID, PRN cefdinir 300 mg Cap, 300 mg= 1 cap(s), Oral, q12hr Dexilant 60 mg oral delayed release capsule, 60 mg= 1 cap(s), Oral, Daily Dexilant 60 mg oral delayed release capsule, 60 mg= 1 cap(s), Oral, Daily, 1 refills DuoNeb 2.5 mg-0.5 mg/3 mL Soln-Inh, 3 mL, Inhalation, QID lidocaine Top 5% film Patch, 1 patch(es), TransDermal, Daily naproxen 500 mg Tab, 500 mg= 1 tab(s), Oral, BID Zofran 4 mg Tab, 4 mg= 1 tab(s), Oral, q6hr,?Not taking Zofran ODT 4 mg Tab-Dis, 4 mg= 1 tab(s), Oral, q8hr, PRN Zofran ODT 4 mg Tab-Dis, 4 mg= 1 tab(s), Oral, q8hr, PRN Zofran ODT 4 mg Tab-Dis, 4 mg= 1 tab(s), Oral, q6hr, PRN,?Not taking Zofran ODT 4 mg Tab-Dis, 4 mg= 1 tab(s), Oral, q8hr, PRN Home albuterol, 2 puff(s), Inhalation, q4hr, PRN clarithromycin, Oral doxycycline predniSONE, Oral, Daily trazodone, Oral,?Not taking With When Contact Information REBEKAH BARBOZA 05/05/2025 11:00 AM EST [address] [place] [address] [phone] Business (1) Additional Instructions: Vidya Oscar Within [address] [place], [place] [address]janusz, [facility] [address] [address] [phone] Business (1) Additional Instructions: Call for followup appointment Community-Acquired Pneumonia, Adult, [id number] Extracted from:Title:APSO NoteAuthor:AMANDA POWELL, IshmaelfoDate:05/02/25 34-year-old male with histor y of bronchiectasis, emphysema, hiatal hernia/esophagitis status post fundoplication who is currently being treated for acute bronchitis with clarithromycin and prednisone at home presented with complaints of right lower quadrant abdominal pain and flank pain, shortness of breath and cough, dizziness and a fall with transient loss of consciousness and had a fever and was admitted with right lower quadrant abdominal pain, syncope, sepsis secondary to pneumonia, bronchiectasis, hypokalemia and closed head injury. 1.??Sepsis??(A41.9: Sepsis, unspecified organism) Secondary to pneumonia. Sepsis has resolved. Treated with IV fluid. Continue on IV meropenem pending blood culture result. ? Ordered: [facility] Hospital Care/Day Moderate 35 Minutes [id number] ?? 2.??Pneumonia??(J18.9: Pneumonia, unspecified organism) Left lobe pneumonia. Continue on IV meropenem. Follow cultures. ?? Ordered: [facility] Hospital Care/Day Moderate 35 Minutes [id number] ?? 3.??Syncope??(R55: Syncope and collapse) Likely secondary to dehydration. Treated with IV fluid. CT brain??normal. ?? Ordered: Sbsq Hospital Care/Day Moderate 35 Minutes [id number] ?? 4.??RLQ abdominal pain??(R10.31: Right lower quadrant pain) Resolved. Seen by engine wiper underwent EGD??with biopsies obtained. As per engine wiper patient will follow-up with them as outpatient to consider??colonoscopy. ?? Ordered: Sbsq Hospital Care/Day Moderate 35 Minutes [id number] ?? 5.??Bronchitis??(J40: Bronchitis, not specified as acute or chronic) Present on admission. Continue nebulizer treatments as needed. Ordered: Sbsq Hospital Care/Day Moderate 35 Minutes [id number] ?? 6.??Closed head injury??(S09.90XA: Unspecified injury of head, initial encounter) Secondary to??fall. Active care. Ordered: Sbsq Hospital Care/Day Moderate 35 Minutes [id number] ?? 7.??Hypokalemia??(E87.6: Hypokalemia) Recurrent. Will replace with oral potassium as patient is intolerant to IV. ?? 8.??Back pain??(M54.9: Dorsalgia, unspecified) Lidoderm patch ?? 9.??Bronchiectasis??(J47.9: Bronchiectasis, uncomplicated) Chronic bronchiectasis and emphysema. ?? Nebulizer treatments as needed. ? 10.??On deep vein thrombosis (DVT) prophylaxis??(Z79.899: Other shelter (current) drug therapy) SCDs. ?? Disposition:??Home in AM. ?? I discussed the diagnosis and plan of care with the patient at the bedside. ?? Moderate level of MDM based on addressing above issues. ?? This documentation was transcribed using voice recognition software. ??Several attempts were made to ensure accuracy. ??However inadvertent computerized animal keeper head errors may be present. ?? Melanie Patel. Hospitalist. ? Orders: lidocaine topical, 1 patch(es), Patch, TransDermal, Daily, NOW, Start date 05/02/25 9:13:00 EST, Right lower back potassium chloride, 40 mEq = 2 tab(s), Tab-ER, Oral, Once, Stop date 05/02/25 8:00:00 EST, Routine,Start date 05/02/25 8:00:00 EST, 05/02/25 7:32:00 EST potassium chloride, 40 mEq = 2 tab(s), Tab-ER, Oral, Once, Stop date 05/02/25 13:00:00 EST, Routine, Start date 05/02/25 13:00:00 EST, 05/02/25 13:00:00 EST potassium chloride + Generic Diluent 100 mL, 20 mEq = 100 mL, Soln-IV, IV Piggyback, q2hr for 2 dose(s), Stop date 05/01/25 11:59:00 EST, Routine, Start date 05/01/25 8:00:00 EST, 50 mL/hr, Infuse over 2 hour(s) remove patch, 1 patch(es), Patch, Topical, Bedtime, 05/02/25 21:00:00 EST Sodium Chloride 0.9% intravenous solution, 1,000 mL, Soln-IV, IV, Once, Stop date 05/01/25 11:09:00EST, STAT, Start date 05/01/25 11:09:00 EST, mL/hr, Infuse over 61, minute(s) Add on Test Basic Metabolic Panel Blood Culture Charcoal Blood Culture Charcoal ED Cardiac Monitoring eGFR Extra Lav Tube Lactic Acid Magnesium Level Orthostatic Vitals Signs Oxygen Desaturation Study Potassium Level Regular Diet Sputum Culture Urine Culture Extracted from:Title:SERENA Post-operative Note - GeneralAuthor:Kendrick Lawrence Jr., DO GDate:05/01/25 Plan Transfer/Discharge: Transfer/Discharge Discharge when meets criteria ( From PACU to Ambulatory Surgery Unit, and To home ). Extracted from:Title:Inpatient Consultation-Floor Code*Author:Vidya Oscar MDalDate:05/01/25 Impression and Plan This is a 34 year old male w hx of TEF s/p repair at , esophageal dysmotility and GERD s/p multiple fundoplications complicated by recurrent aspiration causing bronchiectasis/asthma who presented to ED with abd pain Patient was seen in GI clinic with Dr. De La Fuente, was started on Dexilant and vonoprazan was considered given the heartburn and history of esophagitis per chart review Patient also presented to the ED April 22 with abdominal pain, CT did not show acute intra-abdominal findings, EGD and colonoscopy were recommended electively, patient did not want to stay in the hospital for elective procedure given the holiday He presented again with abdominal pain, CT abdomen was repeated, no acute intra- abdominal pain findings GI was consulted It is reasonable to proceed with EGD and colonoscopy to assess for esophagitis, currently on Dexilant therapy started recently in GI clinic and colonoscopy is reasonable, patient was offered To drink bowel prep last night, he felt he could not tolerated Consider TCA, based on fundoplication and esophagitis may discuss with bariatric surgery. Extracted from:Title:SERENA Pre-operative Note - EndoAuthor:Kendrick Lawrence Jr., DO GDate:05/01/25 Plan [place] [employer] (ASA) physical status classification: Class II. Anesthetic Preoperative Plan: Anesthesia General, and -TIVA. Airway Management Nasal Canula. Extracted from:Title:APSO NoteAuthor:AMANDA POWELL, MbanefoDate:05/01/25 34-year-old male with histor y of bronchiectasis, emphysema, hiatal hernia/esophagitis status post fundoplication who is currently being treated for acute bronchitis with clarithromycin and prednisone at home presented with complaints of right lower quadrant abdominal pain and flank pain, shortness of breath and cough, dizziness and a fall with transient loss of consciousness and had a fever and was admitted with right lower quadrant abdominal pain, syncope, sepsis secondary to pneumonia, bronchiectasis, hypokalemia and closed head injury. 1.??Sepsis??(A41.9: Sepsis, unspecified organism) Sepsis secondary to pneumonia. ??Present during this admission. I ordered blood cultures,??urine cultures lactic acid level. I started patient on IV fluid, IV meropenem. ? 2.??Pneumonia??(J18.9: Pneumonia, unspecified organism) Left lung??pneumonia. Started patient on IV meropenem???. Started patient on Tylenol and IV fluid. ?? Ordered: [facility] Hospital Care/Day Moderate 35 Minutes [id number] ?? 3.??Syncope??(R55: Syncope and collapse) Syncope???likely secondary to dehydration. Monitor on telemetry. Started patient on IV fluid. Check orthostatic vital signs. ? Ordered: [facility] Hospital Care/Day Moderate 35 Minutes [id number] ?? 4.??RLQ abdominal pain??(R10.31: Right lower quadrant pain) Right lower quadrant abdominal pain???etiology unknown. Appendix not visualized on CT scan. Stock Preparer following with plans followed by EGD and then??colonoscopy down the road. ?? Ordered: [facility] Hospital Care/Day Moderate 35 Minutes [id number] ?? 5.??Bronchitis??(J40: Bronchitis, not specified as acute or chronic) Present on admission. Supportive care. Check respiratory panel. Started patient on nebulizer treatments. ? Ordered: [facility] Hospital Care/Day Moderate 35 Minutes [id number] ?? 6.??Closed head injury??(S09.90XA: Unspecified injury of head, initial encounter) Secondary to fall. Subjective care. Ordered: [facility] Hospital Care/Day Moderate 35 Minutes [id number] ?? 7.??Hypokalemia??(E87.6: Hypokalemia) Present on admission. Started patient on IV??potassium. Repeat??BMP in AM. ? 8.??Bronchiectasis??(J47.9: Bronchiectasis, uncomplicated) Chronic bronchiectasis and emphysema. Nebulizer treatments as needed. ?? 9.??On deep vein thrombosis (DVT) prophylaxis??(Z79.899: Other buttermaker helper (current) drug therapy) SCDs. ?? Disposition:??Pending??EGD. ?? I discussed the diagnosis and plan of care with the patient at the bedside. ?? Moderate level of MDM based on addressing above issues. ?? This documentation was transcribed using voice recognition software. ??Several attempts were made to ensure accuracy. ??However inadvertent computerized animal keeper head errors may be present. ?? Melanie Patel. Hospitalist. ? Orders: acetaminophen + Generic Diluent 100 mL, 1,000 mg = 100 mL, Soln-IV, IV Piggyback, q6hr PRN Pain/Fever, Routine, Start date 05/01/25 8:35:00 EST, 400 mL/hr, Infuse over 15 minute(s) meropenem + Sodium Chloride 0.9% intravenous solution 50 mL, 1,000 mg = 1 EA, Powder-Inj, IV Piggyback, q8hrFT, NOW, Start date 05/01/25 8:41:00 EST, 100 mL/hr, Infuse over 30 minute(s) potassium chloride + Generic Diluent 100 mL, 20 mEq = 100 mL, Soln-IV, IV Piggyback, q2hr for 2 dose(s), Stop date 05/01/25 11:59:00 EST, Routine, Start date 05/01/25 8:00:00 EST, 50 mL/hr, Infuse over 2 hour(s) Sodium Chloride 0.9% intravenous solution, 1,000 mL, Soln-IV, IV, Once, Stop date 05/01/25 11:09:00EST, STAT, Start date 05/01/25 11:09:00 EST, mL/hr, Infuse over 61, minute(s) Sodium Chloride 0.9% intravenous solution 500 mL, 500 mL, IV, 50 mL/hr, for 1 dose(s), Stop date 05/01/25 17:37:00 EST, Routine, Start date 05/01/25 7:38:00 EST, 10 hour(s), Total volume (mL): 500, 57.1 kg, 1.59, m2 Add on Test Basic Metabolic Panel Blood Culture Charcoal Blood Culture Charcoal ED Cardiac Monitoring Lactic Acid Lactic Acid Orthostatic Vitals Signs Oxygen Therapy Sputum Culture Urine Culture Extracted from:Title:Admission H & PAuthor:Laisha KENNEDY DO RDate:04/30/25 1. RLQ abdominal pain (R10.31: Right lower quadrant pain) Will admit patient to hospital for colonoscopy. ??Bowel prep as ordered below.?? Will place patienton IV PPI.?? Consult gastroenterology. 2.??Syncope??(R55: Syncope and collapse) Suspect patient had a vasovagal??episode secondary to pain.?? Supportive care for time being. 3.??Bronchitis??(J40: Bronchitis, not specified as acute or chronic) Will check respiratory viral PCR.?? No clinical indication of bacterial infection given no fever and no leukocytosis. 4.??Bronchiectasis??(J47.9: Bronchiectasis, uncomplicated) Pulmonary toilet as ordered -budesonide neb twice daily, duo-nebs q4hrs and alb neb q2hrs prn. 5.??On deep vein thrombosis (DVT) prophylaxis??(Z79.899: Other buttermaker helper (current) drug therapy) SCD, early ambulation Orders: albuterol-ipratropium, 3 mL, Soln-Inh, Inhalation, q4hr for 30 day(s), Stop date 05/30/25 23:57:00 EST, NOW, Start date 04/30/25 23:58:00 EST benzonatate, 100 mg = 1 cap(s), Cap, Oral, TID PRN Cough, Routine, Start date 04/30/25 23:58:00 EST, 04/30/25 23:58:00 EST budesonide, 0.5 mg = 2 mL, Susp-Inh, NEB, BID for 30 day(s), Stop date 05/30/25 23:57:00 EST, NOW, Start date 04/30/25 23:58:00 EST, 04/30/25 23:58:00 EST HYDROmorphone, 1 mg = 1 mL, Injection, IV Push, q3hr PRN Pain for 30 day(s), Stop date 05/30/25 23:56:00 EST, Routine, Start date 04/30/25 23:57:00 EST, 04/30/25 23:57:00 EST ketorolac, 15 mg = 0.5 mL, Injection, IV Push, q6hr PRN Pain for 5 day(s), Stop date 05/05/25 23:58:00 EST, Routine, Start date 04/30/25 23:59:00 EST, 04/30/25 23:59:00 EST ondansetron, 4 mg = 2 mL, Injection, IV Push, q6hr PRN Nausea, Routine, Start date 05/01/25 0:11:00EST, 05/01/25 0:11:00 EST pantoprazole, 40 mg = 10 mL, Injection, IV Push, Daily, Routine, Start date 05/01/25 9:00:00 EST, 05/01/25 0:10:00 EST polyethylene glycol 3350, 238 gm, Powder-Recon, Oral, Once, Stop date 04/30/25 22:00:00 EST, Routine, Start date 04/30/25 22:00:00 EST polyethylene glycol 3350 with electrolytes, 2,000 mL, Powder, Oral, q7hr, Routine, Start date 04/30/25 23:00:00 EST Sodium Chloride 0.9% intravenous solution 1,000 mL, 1,000 mL, IV, 20 mL/hr, Routine, Start date 04/30/25 21:39:00 EST, 50 hour(s), Total volume (mL): 1,000, 57.1 kg, SEND PATIENT TO ENDOSCOPY WITH IVINFUSING, 1.59, m2 Activity As Tolerated Below the Knee Intermittent Pneumatic Compression Device Clear Liquid Diet Consult to Gastroenterology Notify Provider Vital Signs Notify Provider Vital Signs NPO Diet Oxygen Protocol Respiratory Panel by PCR Resuscitation Status - Full Saline Lock Convert From IV Vital Signs Water Intake AFTER Colonoscopy Prep Weight Anticipated stay greater than 2 midnights due to above Extracted from:Title:ED NoteAuthor:Amaury DE LOS SANTOS, Brandt Holguin.Date:04/30/25 Closed head injury (S09.90XA: Unspecified injury of head, initial encounter) RLQ abdominal pain??(R10.31: Right lower quadrant pain) Syncope??(R55: Syncope and collapse) Orders: morphine, 4 mg = 1 mL, Injection, IV Push, Once, Stop date 04/30/25 18:35:00 EST, STAT, Start date 04/30/25 18:35:00 EST, 04/30/25 18:35:00 EST ondansetron, 4 mg = 2 mL, Injection, IV Push, Once, Stop date 04/30/25 18:35:00 EST, STAT, Start date 04/30/25 18:35:00 EST, 04/30/25 18:35:00 EST Basic Metabolic Panel CBC w/ Auto Diff CT Abdomen/Pelvis w/ Contrast CT Head or Brain w/o Contrast ECG 12 Lead Adult ED Cardiac Monitoring Hepatic Function Panel Lactic Acid Lipase Level PT & PTT Saline Lock Insert Troponin 0 Hr. UA with Cult Rflx SP XR Chest 2 Views Future Scheduled Tests Laboratory* Calprotectin, Fecal 04/22/25 * O & P Exam, Routine 04/22/25 * Clostridium Difficile PCR 04/22/25 * Enteric Panel by PCR 04/22/25 Immunizations Given and Recorded VaccineDateStatusRefusal Reasondiphtheria/pertussis, acel/tetanus adult04/14/22 Recordedinfluenza virus vaccine, sgieqipkivx59/6/19Recordedinfluenza virus vaccine, zpyocfgahvb80/28/16Recordedinfluenza virus vaccine, exyztkewecg60/20/16 Recordedinfluenza virus vaccine, qnpulthqgre68/24/Recordedpneumococcal 23- valent vaccine11/10/16Recordedpneumococcal 23-valent vaccine12/14/15Recorded pneumococcal 13-valent ustfpoh56/6/16Recordedhepatitis B pediatric vaccine 09/24/07Recordedhepatitis B pediatric svbeeff09/30/07Recordedhepatitis B pediatric aagzezp84/30/07Recordedinfluenza, whole03/26/07Recorded Medications albuterol = 2 puff(s), Inhalation, q4hr, PRN Wheezing, Refills(s) 0 Start Date: 10/15/16 Status: Ordered Medication Dispense Status: Completed Total Allowed Fills: 1 Fills Dispensed: 0 Bentyl 10 mg Cap 10 mg = 1 cap(s), Oral, QID, PRN abdominal pain, # 28 cap(s), Refills(s) 0, [id number], cm, 04/22/25 15:30:00 EST, Height/Length Dosing, 57.8, kg, 04/22/25 15:30:00 EST, WeightDosing Start Date: 04/22/25 Status: Ordered Medication Dispense Status: Completed Quantity: 28.0 Unit: cap(s) Total Allowed Fills: 1 Fills Dispensed: 0 cefdinir 300 mg Cap 300 mg = 1 cap(s), Oral, q12hr, X 5 day(s), # 10 cap(s), Refills(s) 0, [id number] 160, cm, 04/30/25 18:27:00 EST, Height/Length Dosing, 57.1, kg, 04/30/25 18:27:00 EST, Weight Dosing Start Date: 05/02/25 Stop Date: 05/07/25 Status: Ordered Medication Dispense Status: Completed Quantity: 10.0 Unit: cap(s) Total Allowed Fills: 1 Fills Dispensed: 0 Indications: Pneumonia, unspecified organism; clarithromycin Oral, Refills(s) 0 Start Date: 04/22/25 Status: Ordered Medication Dispense Status: Completed Total Allowed Fills: 1 Fills Dispensed: 0 Dexilant 60 mg oral delayed release capsule 60 mg = 1 cap(s), Oral, Daily, # 30 cap(s), Refills(s) 0, [id number] 157, cm, 02/18/25 13:37:00 EDT, Height/Length Dosing, 55.7, kg, 02/18/25 13:37:00 EDT, Weight Dosing Start Date: 02/18/25 Status: Ordered Medication Dispense Status: Completed Quantity: 30.0 Unit: cap(s) Total Allowed Fills: 1 Fills Dispensed: 0 Indications: Other specified postprocedural states; Diaphragmatic hernia without obstruction or gangrene; Adverse effect of unspecified narcotics, initial encounter; Other esophagitis without bleeding; Unspecified abdominal pain; Other dysphagia; Dexilant 60 mg oral delayed release capsule 60 mg = 1 cap(s), Oral, Daily, # 90 cap(s), Refills(s) 1, [id number] 157, cm, 02/18/25 13:37:00 EDT, Height/Length Dosing, 55.7, kg, 02/18/25 13:37:00 EDT, Weight Dosing Start Date: 04/15/25 Status: Ordered Medication Dispense Status: Completed Quantity: 90.0 Unit: cap(s) Total Allowed Fills: 2 Fills Dispensed: 0 doxycycline Refills(s) 0 Start Date: 04/22/25 Status: Ordered Medication Dispense Status: Completed Total Allowed Fills: 1 Fills Dispensed: 0 DuoNeb 2.5 mg-0.5 mg/3 mL Soln-Inh 3 mL, Inhalation, QID for 7 day(s), 84 mL, Refill(s) 0, [id number], cm, 04/30/25 18:27:00 EST, Height/Length Dosing, 57.1, kg, 04/30/25 18:27:00 EST, Weight Dosing Start Date: 05/02/25 Stop Date: 05/09/25 Status: Ordered Medication Dispense Status: Completed Quantity: 84.0 Unit: mL Total Allowed Fills: 1 Fills Dispensed: 0 Indications: Pneumonia, unspecified organism; lidocaine Top 5% film Patch 1 patch(es), TransDermal, Daily for 7 day(s), 7 patch(es), Refill(s) 0, [id number], cm, 04/30/25 18:27:00 EST, Height/Length Dosing, 57.1, kg, 04/30/25 18:27:00 EST, Weight Dosing Start Date: 05/02/25 Stop Date: 05/09/25 Status: Ordered Medication Dispense Status: Completed Quantity: 7.0 Unit: patch(es) Total Allowed Fills: 1 Fills Dispensed: 0 naproxen 500 mg Tab 500 mg = 1 tab(s), Oral, BID, # 60 tab(s), Refills(s) 0, [id number], 157, cm, 04/22/25 15:30:00 EST, Height/Length Dosing, 57.8, kg, 04/22/25 15:30:00 EST, Weight Dosing Start Date: 04/22/25 Status: Ordered Medication Dispense Status: Completed Quantity: 60.0 Unit: tab(s) Total Allowed Fills: 1 Fills Dispensed: 0 predniSONE Oral, Daily, Refills(s) 0 Start Date: 04/22/25 Status: Ordered Medication Dispense Status: Completed Total Allowed Fills: 1 Fills Dispensed: 0 trazodone Oral, Refills(s) 0 Start Date: 04/22/25 Status: Ordered Medication Dispense Status: Completed Total Allowed Fills: 1 Fills Dispensed: 0 Zofran 4 mg Tab 4 mg = 1 tab(s), Oral, q6hr, # 12 tab(s), Refills(s) 0 Start Date: 04/04/17 Status: Ordered Medication Dispense Status: Completed Quantity: 12.0 Unit: tab(s) Total Allowed Fills: 1 Fills Dispensed: 0 Zofran ODT 4 mg Tab-Dis 4 mg = 1 tab(s), Oral, q8hr, PRN Nausea/Vomiting, # 12 tab(s), Refills(s) 0, Pharmacy: [facility]/pharmacy#[id number], 157.5, cm, 06/16/24 20:27:00 EST, Height/Length Dosing, 54.3, kg, 06/16/24 20:27:00 EST, Weight Dosing Start Date: 06/16/24 Status: Ordered Medication Dispense Status: Completed Quantity: 12.0 Unit: tab(s) Total Allowed Fills: 1 Fills Dispensed: 0 Zofran ODT 4 mg Tab-Dis 4 mg = 1 tab(s), Oral, q8hr, PRN Nausea/Vomiting, # 12 tab(s), Refills(s) 0, Pharmacy: [facility]/pharmacy#[id number], 160, cm, 02/23/24 20:01:00 EDT, Height/Length Dosing, 59, kg, 02/23/24 20:01:00 EDT, Weight Dosing Start Date: 02/23/24 Status: Ordered Medication Dispense Status: Completed Quantity: 12.0 Unit: tab(s) Total Allowed Fills: 1 Fills Dispensed: 0 Zofran ODT 4 mg Tab-Dis 4 mg = 1 tab(s), Oral, q6hr, PRN Nausea, # 8 tab(s), Refills(s) 0, [id number] Start Date: 05/25/17 Status: Ordered Medication Dispense Status: Completed Quantity: 8.0 Unit: tab(s) Total Allowed Fills: 1 Fills Dispensed: 0 Zofran ODT 4 mg Tab-Dis 4 mg = 1 tab(s), Oral, q8hr, PRN Nausea/Vomiting, # 12 tab(s), Refills(s) 0, [id number], 157, cm, 04/22/25 15:30:00 EST, Height/Length Dosing, 57.8, kg, 04/22/25 15:30:00 EST, Weight Dosing Start Date: 04/22/25 Status: Ordered Medication Dispense Status: Completed Quantity: 12.0 Unit: tab(s) Total Allowed Fills: 1 Fills Dispensed: 0 Problem List ConditionConfirmationCourseEffective DatesStatusHealth StatusInformantAbdominal pain in maleConfirmedActiveAdverse effect of unspecified narcotics, initial encounterConfirmedActiveAlcohol use disorderConfirmedActiveBorn very premature ConfirmedResolvedBronchiectasisConfirmedActiveHeadaches, iagcaak8YznqhpfsdTjznbi NdvgocuhtuntNyutklzfn07/31/17ResolvedDiarrheaConfirmedActiveEsophageal dysphagia ConfirmedActives [place] grade B esophagitisConfirmedActiveFormer light tobacco smokerConfirmedActiveFracture of nasal jrsuzZqssedwbg6351Wcyawrjw FundoplicationConfirmedResolvedHiatal herniaConfirmedActiveHistory of fundoplicationConfirmedActiveIndigestionConfirmedActiveLeft lower quadrant abdominal pain during pregnancyConfirmedResolvedPneumoniaConfirmedResolvedRight lower quadrant abdominal painConfirmedActiveSmall bowel obstructionConfirmed PnrawwjmAmcegb7KpmgmjtrbPywkksKaxgkxr-czeqsjxtsrh fistulaConfirmedResolved 1exercise induced 2Added secondary to documentation in Social History. Procedures ProcedureDateRelated DiagnosisBody NixhXeaiesRcfhwxvazkblvnldvbtdekfhoe63/5/25 CompletedClosed reduction of nasal fracture12/28/16CompletedCRNF with stabilization12/28/16CompletedEGD (esophagogastroduodenoscopic) electrohydraulic lithotripsy of bezoar in hoeytru4Odsbiwabmtvaatvl tube at birthCompletedright facial reconstructionCompletedTFP - Total fundoplicationCompletedTracheal tube2 Completed 2at Results Laboratory List NameDatePotassium Level05/03/2557yBJM63/6/25Basic Metabolic Panel (BMP)05/02/25 Magnesium Level05/02/25Lactic Acid05/01/25UA with Cult Rflx107/01/24UA with Cult Rflx SP107/01/24Basic Metabolic Panel (BMP)04/30/25CBC w/ Auto Diff04/30/25Hepatic Function Panel04/30/25Lactic Acid04/30/25Lipase Level04/30/25PT & PTT04/30/25 Huxhlkgmghnuw58/4/25Troponin 0 Hr.04/30/2500yAOQ52/4/25 Most recent to oldest [Reference Range]:123UA Bili [Negative mg/dL]Negative mg/dL (04/30/25 8:57 PM)UA Color [Yellow]Yellow1 (04/30/25 8:57 PM)UA Glucose [Negative mg/dL]Negative mg/dL (04/30/25 8:57 PM)UA Ketones [Negative mg/dL]Negative mg/dL (04/30/25 8:57 PM)UA Leuk Est [Negative]Negative (04/30/25 8:57 PM)UA Nitrite [Negative mg/dL]Negative mg/dL (04/30/25 8:57 PM)UA Protein [Negative mg/dL]Trace mg/dL *ABN* (04/30/25 8:57 PM)UA Urobilinogen [Negative mg/dL]Negative mg/dL (04/30/25 8:57 PM)UA Spec DescClean Catch (04/30/25 8:57 PM)UA Blood [Negative]Negative (04/30/25 8:57 PM)UA Clarity [Clear]Clear (04/30/25 8:57 PM)INR1.092 *NA* (04/30/25 6:55 PM)A/G Ratio [1.1-2.2]1.5 (04/30/25 6:55 PM)BUN/Creat Ratio [10-20]12 (05/02/25 5:34 AM)12 (04/30/25 6:55 PM)AGAP [6-16 mEq/L]9 mEq/L (05/02/25 5:34 AM)14 mEq/L (04/30/25 6:55 PM)Albumin Lvl [3.3-5.0 gm/dL]4.3 gm/dL (04/30/25 6:55 PM)Alk Phos [21-98 Int._Unit/L]91 Int._Unit/L (04/30/25 6:55 PM)ALT [6-46 Int._Unit/L]10 Int._Unit/L (04/30/25 6:55 PM)AST [5-43 Int._Unit/L]14 Int._Unit/L (04/30/25 6:55 PM)Basophil Auto [0.0-2.0 %]1.5 % (04/30/25 6:55 PM)Bili Direct [0.0-0.4 mg/dL]0.1 mg/dL (04/30/25 6:55 PM)Bili Total [0.0-1.1 mg/dL]0.5 mg/dL (04/30/25 6:55 PM)CO2 [21-31 mmol/L]27 mmol/L (05/02/25 5:34 AM)25 mmol/L (04/30/25 6:55 PM)Eos Auto [0.0-8.0 %]0.0 % (04/30/25 6:55 PM)Glucose Lvl [55-199 mg/dL]100 mg/dL (05/02/25 5:34 AM)96 mg/dL (04/30/25 6:55 PM)Hct [37.7-49.0 %]42.8 % (04/30/25 6:55 PM)Hgb [13.5-17.5 gm/dL]15.1 gm/dL (04/30/25 6:55 PM)Lactic Acid Lvl [0.5-2.2 mmol/L]0.5 mmol/L (05/01/25 11:45 AM)0.6 mmol/L (04/30/25 6:55 PM)Lipase Lvl [13-58 unit/L]20 unit/L (04/30/25 6:55 PM)Lymph Auto [14.0-50.0 %]8.8 % *LOW* (04/30/25 6:55 PM)PT [9.4-12.5 second(s)]12.2 second(s)3 (04/30/25 6:55 PM)PTT [25.1-36.5 second(s)]27.2 second(s)4 (04/30/25 6:55 PM)RBC [4.3-5.9 E12/L]5.1 E12/L (04/30/25 6:55 PM)RDW [10.9-14.2 %]13.8 % (04/30/25 6:55 PM)Sodium Lvl [135-145 mmol/L]137 mmol/L (05/02/25 5:34 AM)138 mmol/L (04/30/25 6:55 PM)Total Protein [6.0-7.8 gm/dL]7.1 gm/dL (04/30/25 6:55 PM)Troponin HS [15.90-38.40 pg/mL]2.90 pg/mL5 *LOW* (04/30/25:55 PM)Magnesium [1.3-2.4 mg/dL]1.9 mg/dL (05/02/25 5:34 AM)MCH [27.0-34.0 pg]29.4 pg (04/30/25 6:55 PM)MCHC [31.4-36.0 gm/dL]35.2 gm/dL (04/30/25 6:55 PM)MCV [80.0-100.0 fL]83.3 fL (04/30/25 6:55 PM)Ness Auto [4.0-14.0 %]16.3 % *HI* (04/30/25 6:55 PM)MPV [6.4-10.8 fL]9.5 fL (04/30/25 6:55 PM)Neutro Auto [36.0-75.0 %]73.4 % (04/30/25 6:55 PM)UA pH [5.0-9.0]6.0 *NA* (04/30/25 8:57 PM)BUN [5-21 mg/dL]11 mg/dL (05/02/25 5:34 AM)12 mg/dL (04/30/25 6:55 PM)Calcium Lvl [8.9-11.1 mg/dL]7.7 mg/dL *LOW* (05/02/25 5:34 AM)9.0 mg/dL (04/30/25 6:55 PM)Platelet [150.0-500.0 E9/L]246.0 E9/L (04/30/25 6:55 PM)Potassium Lvl [3.5-5.3 mmol/L]3.9 mmol/L (05/03/25 6:10 AM)3.3 mmol/L *LOW* (05/02/25 5:34 AM)3.3 mmol/L *LOW* (04/30/25 6:55 PM)UA Spec Grav [1.005-1.030]>1.050 (04/30/25 8:57 PM)WBC [4.0-11.0 E9/L]6.4 E9/L6 (04/30/25 6:55 PM)Chloride [101-111 mmol/L]104 mmol/L (05/02/25 5:34 AM)102 mmol/L (04/30/25 6:55 PM)Bili Indirect [0.1-0.9 mg/dL]0.4 mg/dL (04/30/25 6:55 PM)Ness Absolute [0.2-1.0 E9/L]1.0 E9/L (04/30/25 6:55 PM)Eos Absolute [0.0-0.5 E9/L]0.0 E9/L (04/30/25 6:55 PM)Basophil Absolute [0.0-0.2 E9/L]0.1 E9/L (04/30/25 6:55 PM)Neutro Absolute [2.0-7.5 E9/L]4.7 E9/L (04/30/25 6:55 PM)Lymph Absolute [1.0-4.0 E9/L]0.6 E9/L *LOW* (04/30/25 6:55 PM)eGFR [>=59 mL/min/1.73 m2]114 mL/min/1.73 m2 (05/02/25 5:34 AM)101 mL/min/1.73 m2 (04/30/25 6:55 PM)Globulin [1.4-4.0 gm/dL]2.8 gm/dL (04/30/25 6:55 PM)Procalcitonin [0.00-0.50 ng/mL]<.05 ng/mL7 (04/30/25 6:55 PM)Creatinine [0.5-1.3 mg/dL]0.9 mg/dL (05/02/25 5:34 AM)1.0 mg/dL (04/30/25 6:55 PM) 1Interpretive Data: Microscopic readings are only performed on those samples that meet specific criteria set forth by [facility]. 2Interpretive Data: INR results are specifically intended to assess patients stabilized on long-term Anticoagulation therapy suggested INR???s ???Less Intensive Anticoagulation?? 2.0 ??? 3.0 Conventional Range 3.0 ??? 4.5 3Interpretive Data: 15 days - 4 weeks 1 - 5 months 6 -11 months 1 ??? 5 years 6 ??? 10 years 11 -17 years Mean: 11.2?? (9.5 ??? 12.6) Mean: 11.0?? (9.7 ??? 12.8) Mean: 11.0 (9.8 ??? 13.0) Mean: 11.3 (9.9 ??? 13.4) Mean: 11.7 (10.0 ??? 14.6) Mean: 11.8? (10.0 - 14.1) Pediatric Reference ranges were obtained from a study by Mick Echeverria et al. prepared from 1437 samples obtained at 7 different centers using the same coagulation reagent and instrumentation [place] [facility] [place] Currently there are no coagulation studies available worldwide for children to 14 days, andno normal ranges. 4Interpretive Data: Parameter 15 days -? 4 weeks 1 - 5 months 6 - 11 months 1 - 5 years 6 - 10 years 11 - 17 years PTT Mean: 35.4 (27.6-45.6) Mean: 33.5 (24.8-40.7) Mean: 32.4 (25.1-40.7) Mean: 31.6 (24.0-39.2) Mean: 31.6 (26.9-38.7) Mean: 31.0 (24.6-38.4) Pediatric Reference ranges were obtained from a study by Mick Echeverria et al. prepared from 1437 samples obtained at 7 different centers using the same coagulation reagent and instrumentation [place] [facility] [place] Currently there are no coagulation studies available worldwide for children to 14 days, andno normal ranges. Heparin therapeutic range (represented by Anti-Factor Xa activity of 0.2 - 0.4 U/mL) corresponds to PTT of 56.6 - 109.0 sec. 5Interpretive Data: The 95% CI (Confidence Interval) PPV (Positive Predictive Value) for myocardial infarction in females is 38 pg/mL, in males 51 pg/mL. The results should be used in conjunction withclinical conditions of myocardial infarction. (Access High Sensitivity Troponin I Instructions For Use, Sh[facility] [place], December 2017) 6Result Comment: Peripheral smear review performed. 7Interpretive Data: <0.5 ng/mL Low risk of severe sepsis and/or shock >2.0 ng/mL High risk of severe sepsis and/or shock Concentrations under 0.5 ng/mL do not exclude local infections or systemic infections in their initial stages (e.g.. under six hours from onset of illness). PCT concentrations between 0.5 and 2.0 ng/mL should be interpreted with consideration of the patient's history. In this range, it is recommended to retest PCT within 6 to 24 hours. Orders for Microbiology Reports NameDateUrine Alhaifz27/5/25Sputum Culture (Culture Sputum)05/01/25Blood Culture Mnyecfql00/5/25Blood Culture Fszvvxgt84/5/25 Microbiology Reports TEST:Urine Culture STATUS:Auth (Verified) BODY SITE: SOURCE:Urine Random COLLECTED DATE/TIME:05/01/25 12:42 PM FINAL REPORT No growth at 2 days. TEST:Sputum Culture STATUS:Auth (Verified) BODY SITE: SOURCE:Sputum COLLECTED DATE/TIME:05/01/25 11:48 AM FINAL REPORT 2+ Normal upper respiratory naye isolated STAIN REPORT 3+ White Blood Cells 1+ epithelial cells 1+ Gram Positive Cocci 1+ Gram Positive Rods TEST:Blood Culture Charcoal STATUS:Order in Progress BODY SITE:Right Arm SOURCE:Blood COLLECTED DATE/TIME:05/01/25 11:45 AM PRELIMINARY REPORT No growth at 2 days. Final to follow at 7 days. TEST:Blood Culture Charcoal STATUS:Order in Progress BODY SITE:Left Hand SOURCE:Blood COLLECTED DATE/TIME:05/01/25 11:44 AM PRELIMINARY REPORT No growth at 2 days. Final to follow at 7 days. Social History Social History TypeResponseSmoking StatusFormer smoker, quit more than 30 days ago;Never;Smokeless tobacco user within last 30 days; Type: Cigarettes; Type: Oral1 entered on: 04/22/25Birth SexMaleSex RepresentationMale (finding) 1States quit smoking 07/2016 4denies 51/2ppd Hospital Discharge Instructions Patient Education 05/02/2025 11:20:24 Community-Acquired Pneumonia, Adult, [id number] Community-Acquired Pneumonia, Adult Pneumonia is an infection of the lungs. It causes irritation and swelling in the airways of the lungs. Mucus and fluid may also build up inside the airways. This may cause coughing and trouble breathing. One type of pneumonia can happen while you are in a hospital. A different type can happen when you are not in a hospital (community-acquired pneumonia). What are the causes? This condition is caused by germs (viruses, bacteria, or fungi). Some types of germs can spread from person to person. Pneumonia is not thought to spread from person to person. What increases the risk? You have a long-term (chronic) disease, such as: ??? Disease of the lungs. This may be chronic obstructive pulmonary disease (COPD) or asthma. ??? Heart failure. ??? Cystic fibrosis. ??? Diabetes. ??? Kidney disease. ??? Sickle cell disease. ??? HIV. ??? You have other health problems, such as: ??? Your body's defense system (immune system) is weak. ??? A condition that may cause you to breathe in fluids from your mouth and nose. ??? You had your spleen taken out. ??? You do not take good care of your teeth and mouth (poor dental hygiene). ??? You use or have used tobacco products. ??? You go where the germs that cause this illness are common. ??? You are older than 65 years of age. What are the signs or symptoms? A cough. ??? A fever. ??? Sweating or chills. ??? Chest pain, often when you breathe deeply or cough. ??? Breathing problems, such as: ??? Fast breathing. ??? Trouble breathing. ??? Shortness of breath. ??? Feeling tired (fatigued). ??? Muscle aches. How is this treated? Treatment for this condition depends on many things, such as: ??? The cause of your illness. ??? Your medicines. ??? Your other health problems. Most adults can be treated at home. Sometimes, treatment must happen in a hospital. ??? Treatment may include medicines to kill germs. ??? Medicines may depend on which germ caused your illness. Very bad pneumonia is rare. If you get it, you may: ??? Have a machine to help you breathe. ??? Have fluid taken away from around your lungs. Follow these instructions at home: Medicines ??? Take [id number] and prescription medicines only as told by your doctor. ??? Take cough medicine only if you are losing sleep. Cough medicine can keep your body from takingmucus away from your lungs. ??? If you were prescribed antibiotics, take them as told by your doctor. Do not stop taking them even if you start to feel better. Lifestyle ??? Do not smoke or use any products that contain nicotine or tobacco. If you need help quitting, ask your doctor. ??? Do not drink alcohol. ??? Eat a healthy diet. This includes a lot of vegetables, fruits, whole grains, low-fat dairy products, and low-fat (lean) protein. General instructions ??? Rest a lot. Sleep for at least 8 hours each night. ??? Sleep with your head and neck raised. Put a few pillows under your head or sleep in a recliningchair. ??? Return to your normal activities as told by your doctor. Ask your doctor what activities are safe for you. ??? Drink enough fluid to keep your pee (urine) pale yellow. ??? If your throat is sore, gargle with a mixture of salt and water 3???4 times a day or as needed.To make salt water, completely dissolve ?1 tsp (3???6 g) of salt in 1 cup (237 mL) of warm water. ??? Keep all follow-up visits. How is this prevented? Getting the pneumonia shot (vaccine). These shots have different types and schedules. Ask your doctor what works best for you. Think about getting this shot if: ??? You are older than 65 years of age. ??? You are 19???65 years of age and: ??? You are being treated for cancer. ??? You have long-term lung disease. ??? You have other problems that affect your body's defense system. Ask your doctor if you have oneof these. ??? Getting your flu shot every year. Ask your doctor which type of shot is best for you. ??? Going to the dentist as often as told. ??? Washing your hands often with soap and water for at least 20 seconds. If you cannot use soap and water, use hand esl instructor. Contact a doctor if: ??? You have a fever. ??? You lose sleep because your cough medicine does not help. Get help right away if: ??? You are short of breath and this gets worse. ??? You have more chest pain. ??? Your sickness gets worse. This is very serious if: ??? You are an older adult. ??? Your body's defense system is weak. ??? You cough up blood. These symptoms may be an emergency. Get help right away. Call 911. ??? Do not wait to see if the symptoms will go away. ??? Do not drive yourself to the hospital. Summary ??? Pneumonia is an infection of the lungs. ??? Community-acquired pneumonia affects people who have not been in the hospital. Certain germs can cause this infection. ??? This condition may be treated with medicines that kill germs. ??? For very bad pneumonia, you may need a hospital stay and treatment to help with breathing. This information is not intended to replace advice given to you by your health care provider. Make sure you discuss any questions you have with your health care provider. Document Revised: 07/12/2022 Document Reviewed: 07/12/2022 ElseEdictive Patient Education ?? 2023 [employer]. Follow Up Care 04/30/2025 18:23:22 With:Vidya Oscar Address: [address], [address] [phone] Business (1) When:2 weeks Comments:Call for followup appointment With:REBEKAH BARBOZA Address: [address] [place] [phone] Business (1) When:05/05/2025 11:00:00 Physician Emergency department Note * Juliano Hernandez DO: MODIFY Juliano Hernandez DO: MODIFY, MODIFY Brandt Rebolledo PA-C: MODIFY Event Display: ED Note-Physician Authored Date: [id number] Basic Information Time Seen: Brandt Rebolledo PA-C ??04/30/2025 18:31 Chief Complaint pt began having r side flank pain 2 days ago. denies urinary problems. states pain comes around to RLQ and also has nausea. earlier pt also got up and felt dizzy, fell, hit head, and had positive LOCfor about 20 seconds. denies thinners History of Present Illness A 34-year-old male reports to the ED with concerns of right-sided flank pain that goes into his right lower quadrant. ??Reports it started 2 days ago, but worsened. ??Reports recently was at [facility],??and had to be shipped out for??problems with his intestines. ??Reports he had to have anNG tube there were concern for small bowel obstruction.?? He reports that??the pain is worse in the last couple of days though.?? He reports extensive abdominal history. ??Reports that he has nausea with this. ??Denies any vomiting. Review of Systems No other aggravating or relieving factors no other associated symptoms no other prior treatments orcomplaints. ?? Family: Reviewed and noncontributory Social: lives at home ?? Review of systems negative unless otherwise specified in the HPI. Physical Exam Vitals & Measurements T:??37.7?C(Oral)?? HR:??100(Peripheral)?? RR:??20?? BP:??109/95?? SpO2:??96%?? HT:??160??cm?? WT:??57.1??kg?? BMI:??22.3?? General: The patient appears well and in no apparent distress. Patient is in bed,??holding abdomen..??afebrile Skin: Warm, dry, no pallor noted.?? Head: Normocephalic, atraumatic?? Neck: No JVD?? Eye: PERRLA, EOMI?? ENT: Moist mucus membranes Cardiovascular: Regular rate. normal peripheral perfusion. ??Radial pulses +2 bilaterally. Respiratory: No respiratory distress. no accessory muscle use. no obvious audible wheezing Chest Wall: no deformity Musculoskeletal: normal ROM, no deformity, no swelling?? GI: No obvious distention.?? There is voluntary ??guarding??on exam of right lower quadrant to palpation with mild right flank tenderness. ??No right-sided CVA tenderness. positive Rovsing sign. Neurological: A&O. moves all extremities equal strength and symmetry Psychiatric: Cooperative and appropriate?? Medical Decision Making A 34-year-old male reports to ED with concerns of right sided abdominal and flank pain. ??Reports symptoms going on for last 2 days worsening pain. ??Reports he had a syncopal episode today because the pain was so bad. ??He did hit his head.?? Reports multiple surgeries on his abdomen before.?? Exam patient does reveal right lower quadrant tenderness.?? He does have positive Rovsing sign.?? He appears to be in pain. ??He concerns today give pain meds occasions. ??Patient??did have a full workupperformed.?? Patient handed off to attending physician for further evaluation. ?? Lab work reviewed and noted.?? No significant abnormalities. ??CT scan without acute findings. ?? I did review his previous visits. ??It sounds as though there was concern for a possible small bowel obstruction/inflammatory bowel disease presentation during his visit at [facility] and ultimately is transferred to [facility].?? He follows with [facility] gastroenterology.?? He has seen gastroenterology in the outpatient there is a plan for admission over the?however he ended up going home, doing poorly and Ronny presenting today.?? Case was discussed with the on-call engine wiper Dr. Oscar.?? Given his persistent pain, previous plan for admission by GI??we will plan to admit the patient for colonoscopy. ??Jtly prep to start tonight, goal to finish by 8 AM for colonoscopy tomorrow. ??Discussed with the patient and he agrees with plan. ?? Case discussed with the hospitalist with plan for admission. Assessment/Plan Closed head injury??(S09.90XA: Unspecified injury of head, initial encounter) RLQ abdominal pain??(R10.31: Right lower quadrant pain) Syncope??(R55: Syncope and collapse) Orders: morphine, 4 mg = 1 mL, Injection, IV Push, Once, Stop date 04/30/25 18:35:00 EST, STAT, Start date 04/30/25 18:35:00 EST, 04/30/25 18:35:00 EST ondansetron, 4 mg = 2 mL, Injection, IV Push, Once, Stop date 04/30/25 18:35:00 EST, STAT, Start date 04/30/25 18:35:00 EST, 04/30/25 18:35:00 EST Basic Metabolic Panel CBC w/ Auto Diff CT Abdomen/Pelvis w/ Contrast CT Head or Brain w/o Contrast ECG 12 Lead Adult ED Cardiac Monitoring Hepatic Function Panel Lactic Acid Lipase Level PT & PTT Saline Lock Insert Troponin 0 Hr. UA with Cult Rflx SP XR Chest 2 Views Disposition Plan Patient Discharge Condition Stable Discharge Prescription List Prescriptions No active prescription medications Follow-up No qualifying data available Attestation Patient seen and evaluated by the physician assistant financial accountant. Attending physician was present in the emergency department and supervised care. ? This visit was performed by both the physician and an APC. ??I performed all aspects of the MDM as documented. ?? This report was transcribed using voice recognition software. ??Every effort was made to ensure accuracy, however, inadvertently computerized animal keeper head mistakes may be present. ?? Appropriate healthcare PPE was used in evaluating this patient. ??The patient was placed in a mask.??The healthcare provider was wearing mask, gloves, and utilizing proper hand hygiene. ??All equipment was properly cleansed. ?? I performed a substantive part of the MDM during the patient??s E/M visit. I?? personally evaluated and examined the patient. I personally made or approved the documented management plan and acknowledge its risk of complications. (Independent Interpretation) My (EKG/X-Ray/US/CT as applicable) interpretation as above. (Discussion) Management/test interpretation discussed with APC. Problem List/Past Medical History Ongoing Abdominal pain in male Adverse effect of unspecified narcotics, initial encounter Alcohol use disorder Bronchitis Diarrhea Esophageal dysphagia Former light tobacco smoker Hiatal hernia History of fundoplication [place] grade B esophagitis Right lower quadrant abdominal pain Smoker Historical Born very premature Constipation Fracture of nasal bones Fundoplication Left lower quadrant abdominal pain during Pneumonia Small bowel obstruction Tracheo-oesophageal fistula Procedure/Surgical History Closed reduction of nasal fracture (12/28/2016), CRNF with stabilization (12/28/2016), EGD (esophagogastroduodenoscopic) electrohydraulic lithotripsy of bezoar in stomach, feeding tube at , right facial reconstruction, TFP - Total fundoplication, Tracheal tube. Medications Inpatient morphine 4 mg/mL Inj, 4 mg= 1 mL, IV Push, Once ondansetron 4 mg/2 mL Inj, 4 mg= 2 mL, IV Push, Once Home albuterol, 2 puff(s), Inhalation, q4hr, PRN Bentyl 10 mg Cap, 10 mg= 1 cap(s), Oral, QID, PRN clarithromycin, Oral Dexilant 60 mg oral delayed release capsule, 60 mg= 1 cap(s), Oral, Daily Dexilant 60 mg oral delayed release capsule, 60 mg= 1 cap(s), Oral, Daily, 1 refills doxycycline naproxen 500 mg Tab, 500 mg= 1 tab(s), Oral, BID predniSONE, Oral, Daily trazodone, Oral Zofran 4 mg Tab, 4 mg= 1 tab(s), Oral, q6hr,?Not taking Zofran ODT 4 mg Tab-Dis, 4 mg= 1 tab(s), Oral, q8hr, PRN Zofran ODT 4 mg Tab-Dis, 4 mg= 1 tab(s), Oral, q8hr, PRN Zofran ODT 4 mg Tab-Dis, 4 mg= 1 tab(s), Oral, q6hr, PRN,?Not taking Zofran ODT 4 mg Tab-Dis, 4 mg= 1 tab(s), Oral, q8hr, PRN Allergies penicillin??(Hives) Social History Alcohol - Denies Alcohol Use, 12/27/2016 Current. Beer. 1-2 times per month., 02/18/2025 Substance Abuse - Medium Risk, 02/23/2024 Current, Marijuana, Daily, 04/30/2025 Past. Methamphetamines, Prescription medications. Daily. Previous treatment: Inpatient, Outpatient., 02/18/2025 Tobacco - Denies Tobacco Use, 12/27/2016 Former smoker, quit more than 30 days ago Tobacco Use:. Never, Smokeless tobacco user within last 30 days Smokeless Tobacco Use:. Cigarettes, Oral, 04/22/2025 Current Every Day Smoker, Cigarettes, 12/27/2016 Family History Diabetes mellitus type 2: Mother. Lab Results WBC: 6.4 E9/L (04/30/25 18:55:00) RBC: 5.1 E12/L (04/30/25 18:55:00) HGB: 15.1 gm/dL (04/30/25 18:55:00) Hct: 42.8 % (04/30/25 18:55:00) MCV: 83.3 fL (04/30/25 18:55:00) MCH: 29.4 pg (04/30/25 18:55:00) MCHC: 35.2 gm/dL (04/30/25 18:55:00) RDW: 13.8 % (04/30/25 18:55:00) Platelet: 246 E9/L (04/30/25 18:55:00) MPV: 9.5 fL (04/30/25 18:55:00) Neutro Auto: 73.4 % (04/30/25 18:55:00) Lymph Auto:??8.8 %??Low (04/30/25 18:55:00) Ness Auto:??16.3 %??High (04/30/25 18:55:00) Eos Auto: 0 % (04/30/25 18:55:00) Basophil Auto: 1.5 % (04/30/25 18:55:00) Neutro Absolute: 4.7 E9/L (04/30/25 18:55:00) Lymph Absolute:??0.6 E9/L??Low (04/30/25 18:55:00) Ness Absolute: 1 E9/L (04/30/25 18:55:00) Eos Absolute: 0 E9/L (04/30/25 18:55:00) Basophil Absolute: 0.1 E9/L (04/30/25 18:55:00) PT: 12.2 second(s) (04/30/25 18:55:00) INR: 1.09 (04/30/25 18:55:00) PTT: 27.2 second(s) (04/30/25 18:55:00) Glucose Lvl: 96 mg/dL (04/30/25 18:55:00) BUN: 12 mg/dL (04/30/25 18:55:00) Creatinine: 1 mg/dL (04/30/25 18:55:00) eGFR: 101 mL/min/1.73 m2 (04/30/25 18:55:00) BUN/Creat Ratio: 12 (04/30/25 18:55:00) Sodium Lvl: 138 mmol/L (04/30/25 18:55:00) Potassium Lvl:??3.3 mmol/L??Low (04/30/25 18:55:00) Chloride: 102 mmol/L (04/30/25 18:55:00) CO2: 25 mmol/L (04/30/25 18:55:00) AGAP: 14 mEq/L (04/30/25 18:55:00) Calcium Lvl: 9 mg/dL (04/30/25 18:55:00) Alk Phos: 91 Int._Unit/L (04/30/25 18:55:00) ALT: 10 Int._Unit/L (04/30/25 18:55:00) AST: 14 Int._Unit/L (04/30/25 18:55:00) Total Protein: 7.1 gm/dL (04/30/25 18:55:00) Albumin Lvl: 4.3 gm/dL (04/30/25 18:55:00) Globulin: 2.8 gm/dL (04/30/25 18:55:00) A/G Ratio: 1.5 (04/30/25 18:55:00) Bili Total: 0.5 mg/dL (04/30/25 18:55:00) Bili Direct: 0.1 mg/dL (04/30/25 18:55:00) Bili Indirect: 0.4 mg/dL (04/30/25 18:55:00) Lipase Lvl: 20 unit/L (04/30/25 18:55:00) Lactic Acid Lvl: 0.6 mmol/L (04/30/25 18:55:00) Troponin HS:??2.9 pg/mL??Low (04/30/25 18:55:00) UA Spec Desc: Clean Catch (04/30/25 20:57:00) UA Color: Yellow (04/30/25 20:57:00) UA Clarity: Clear (04/30/25 20:57:00) UA Spec Grav: >1.050 (04/30/25 20:57:00) UA pH: 6.0 (04/30/25 20:57:00) UA Protein: Trace Abnormal (04/30/25 20:57:00) UA Glucose: Negat (04/30/25 20:57:00) UA Ketones: Negat (04/30/25 20:57:00) UA Bili: Negat (04/30/25 20:57:00) UA ??Blood: Negat (04/30/25 20:57:00) UA Nitrite: Negat (04/30/25 20:57:00) UA Urobilinogen: Negat (04/30/25 20:57:00) UA Leuk Est: Negat (04/30/25 20:57:00) Diagnostic Results No qualifying data available. EKG Results EC04/30/25: SINUS RHYTHM WITH MARKED SINUS ARRHYTHMIA MARKED RIGHT AXIS DEVIATION [QRS AXIS > 100] RBBB, incomplete ?? BORDERLINE ECG Signed By: Rebecca Pulido D.O. ??04/30/2025 ??19:01:13 Electronically Signed By: Brandt Rebolledo PA-C Date and Time Signed: 04/30/25 19:02 EST Electronically Co-Signed By: Juliano Hernandez DO Date and Time Co-Signed: 04/30/25 21:31 EST Consult note * Vidya Oscar MD: VERIFY, PERFORM, SIGN Event Display: Consultation Note Authored Date: [id number] Patient: FRANCIS GALVEZ Age: 34 years Sex: Male : 1990 Associated Diagnoses: None Author: Vidya Oscar MD Basic Information Abd pain. GERD History of Present Illness This is a 34 year old male w hx of TEF s/p repair at , esophageal dysmotility and GERD s/p multiple fundoplications complicated by recurrent aspiration causing bronchiectasis/asthma who presented to ED with abd pain Patient was seen in GI clinic with Dr. De La Fuente, was started on Dexilant and vonoprazan was considered given the heartburn and history of esophagitis per chart review Patient also presented to the ED April 22 with abdominal pain, CT did not show acute intra-abdominal findings, EGD and colonoscopy were recommended electively, patient did not want to stay in the hospital for elective procedure given the holiday He presented again with abdominal pain, CT abdomen was repeated, no acute intra- abdominal pain findings GI was consulted Per chart review: Pt was recently admitted on 12/13 for PNA and was Dc'd on 12/14 w oral abx but started having recurrence of symptoms w Shortness of Breath and productive cough on 12/23. Pt has had worsening burning mid epigastric pain during swallowing for the past few months. Epigastric pain is non-positional and does not occur at night. During this time, pt has been under additional stress including the loss of his home. Per pt, he has only taken pantoprazole 20mg bid but only minimal relief is achieved. When pt eats or drinks too quickly, he reports a sensation of food being stuck in his esophagus, which he relieves w self-induced vomiting. He reports a previous workup w Barium swallow that was negative. Denies unintentional vomiting, constipation or diarrhea. 2016 EGD showed [place] grade B esophagitis and a 4cm hiatal hernia. 2017 manometry showed absent peristalsis in all swallows, absent Contractility. At the time, thoracic surgery recommended RGY w J tube.He most recently saw outpatient GI in [place] 6mo ago. Pt quit EtOH 4mo ago and tobacco 2wk ago. Health Status Current medications: (Selected) Inpatient Medications Ordered Dilaudid 1 mg/mL injectable solution: 1 mg = 1 mL, Injection, IV Push, q3hr PRN Pain for 30 day(s),Stop date 05/30/25 23:56:00 EST, Routine, Start date 04/30/25 23:57:00 EST, 04/30/25 23:57:00 EST DuoNeb 2.5 mg-0.5 mg/3 mL Soln-Inh: 3 mL, Soln-Inh, Inhalation, q4hr for 30 day(s), Stop date 05/30/25 23:57:00 EST, NOW, Start date 04/30/25 23:58:00 EST Lactated Ringers IV Patricia 1000 mL 1,000 mL: 1,000 mL, IV, 100 mL/hr, Routine, Start date 05/01/25 13:04:00 EST, 10 hour(s), Total volume (mL): 1,000, 57.1 kg, 1.59, m2 NS 1000 mL Soln-IV 1,000 mL: 1,000 mL, IV, 20 mL/hr, Routine, Start date 04/30/25 21:39:00 EST, 50 hour(s), Total volume (mL): 1,000, 57.1 kg, SEND PATIENT TO ENDOSCOPY WITH IV INFUSING, 1.59, m2 Sodium Chloride 0.9% IV Patricia 1000 mL 1,000 mL: 1,000 mL, IV, 20 mL/hr, Routine, Start date 05/01/25 13:09:00 EST, 50 hour(s), Total volume (mL): 1,000, 57.1 kg, 1.59, m2 Sodium Chloride 0.9% IV Patricia 500 mL 500 mL: 500 mL, IV, 50 mL/hr, for 1 dose(s), Stop date 05/01/25 17:37:00 EST, Routine, Start date 05/01/25 7:38:00 EST, 10 hour(s), Total volume (mL): 500, 57.1 kg,1.59, m2 Tessalon 100 mg Cap: 100 mg = 1 cap(s), Cap, Oral, TID PRN Cough, Routine, Start date 04/30/25 23:58:00 EST, 04/30/25 23:58:00 EST Zofran 4 mg/2 mL Injection: 4 mg = 2 mL, Injection, IV Push, q6hr PRN Nausea, Routine, Start date 05/01/25 0:11:00 EST, 05/01/25 0:11:00 EST acetaminophen additive + Generic Diluent 100 mL: 1,000 mg = 100 mL, Soln-IV, IV Piggyback, q6hr PRNPain/Fever, Routine, Start date 05/01/25 8:35:00 EST, 400 mL/hr, Infuse over 15 minute(s) budesonide 0.5 mg/2 mL Inh Susp: 0.5 mg = 2 mL, Susp-Inh, NEB, BID for 30 day(s), Stop date 05/30/25 23:57:00 EST, NOW, Start date 04/30/25 23:58:00 EST, 04/30/25 23:58:00 EST ketorolac 30 mg/mL Inj 1 mL: 15 mg = 0.5 mL, Injection, IV Push, q6hr PRN Pain for 5 day(s), Stop date 05/05/25 23:58:00 EST, Routine, Start date 04/30/25 23:59:00 EST, 04/30/25 23:59:00 EST meropenem additive + Sodium Chloride 0.9% intravenous solution 50 mL: 1,000 mg = 1 EA, Powder-Inj, IV Piggyback, q8hrFT, NOW, Start date 05/01/25 8:41:00 EST, 100 mL/hr, Infuse over 30 minute(s) pantoprazole 40 mg IV Inj: 40 mg = 10 mL, Injection, IV Push, Daily, Routine, Start date 05/01/25 9:00:00 EST, 05/01/25 0:10:00 EST polyethylene glycol 3350 with electrolytes Oral Pwdr for Patricia 4000 mL (GoLytely): 2,000 mL, Powder, Oral, q7hr, Routine, Start date 04/30/25 23:00:00 EST Pending Complete potassium chloride additive + premix generic diluent 100 mL: 20 mEq = 100 mL, Soln-IV, IV Piggyback, q2hr for 2 dose(s), Stop date 05/01/25 11:59:00 EST, Routine, Start date 05/01/25 8:00:00 EST, 50 mL/hr, Infuse over 2 hour(s) Prescriptions Prescribed Bentyl 10 mg Cap: 10 mg = 1 cap(s), Oral, QID, PRN abdominal pain, # 28 cap(s), Refills(s) 0, [id number], cm, 04/22/25 15:30:00 EST, Height/Length Dosing, 57.8, kg, 04/22/25 15:30:00 EST, Weight Dosing Dexilant 60 mg oral delayed release capsule: 60 mg = 1 cap(s), Oral, Daily, # 30 cap(s), Refills(s)0, [id number] 157, cm, 02/18/25 13:37:00 EDT, Height/Length Dosing, 55.7, kg, 02/18/25 13:37:00 EDT, Weight Dosing Dexilant 60 mg oral delayed release capsule: 60 mg = 1 cap(s), Oral, Daily, # 90 cap(s), Refills(s)1, [id number], 157, cm, 02/18/25 13:37:00 EDT, Height/Length Dosing, 55.7, kg, 02/18/25 13:37:00 EDT, Weight Dosing Zofran 4 mg Tab: 4 mg = 1 tab(s), Oral, q6hr, # 12 tab(s), Refills(s) 0 Zofran ODT 4 mg Tab-Dis: 4 mg = 1 tab(s), Oral, q6hr, PRN Nausea, # 8 tab(s), Refills(s) 0, [id number] Zofran ODT 4 mg Tab-Dis: 4 mg = 1 tab(s), Oral, q8hr, PRN Nausea/Vomiting, # 12 tab(s), Refills(s) 0, [id number], 157, cm, 04/22/25 15:30:00 EST, Height/Length Dosing, 57.8, kg, 04/22/25 15:30:00 EST, Weight Dosing Zofran ODT 4 mg Tab-Dis: 4 mg = 1 tab(s), Oral, q8hr, PRN Nausea/Vomiting, # 12 tab(s), Refills(s) 0, [id number], 157.5, cm, 06/16/24 20:27:00 EST, Height/Length Dosing, 54.3, kg, 06/16/24 20:27:00 EST, Weight Dosing Zofran ODT 4 mg Tab-Dis: 4 mg = 1 tab(s), Oral, q8hr, PRN Nausea/Vomiting, # 12 tab(s), Refills(s) 0, [id number], 160, cm, 02/23/24 20:01:00 EDT, Height/Length Dosing, 59, kg, 02/23/24 20:01:00 EDT, Weight Dosing naproxen 500 mg Tab: 500 mg = 1 tab(s), Oral, BID, # 60 tab(s), Refills(s) 0, [id number], 157, cm, 04/22/25 15:30:00 EST, Height/Length Dosing, 57.8, kg, 04/22/25 15:30:00 EST, Weight Dosing Documented Medications Documented albuterol: = 2 puff(s), Inhalation, q4hr, PRN Wheezing, Refills(s) 0 clarithromycin: Oral, Refills(s) 0 doxycycline: Refills(s) 0 predniSONE: Oral, Daily, Refills(s) 0 trazodone: Oral, Refills(s) 0 Physical Examination Vital Signs (last 24 hrs) Last Charted Temp Temporal 36.6 DegC (MAY 01:) Heart Rate Monitored 92 bpm (MAY 01:) Resp Rate 22 br/min (MAY 01:) SBP 114 mmHg (MAY 01:) DBP H 96 mmHg (MAY 01:) Weight 55.9 kg (MAY 01 05:54) BMI 21.83 (MAY 01 00:16) Impression and Plan This is a 34 year old male w hx of TEF s/p repair at , esophageal dysmotility and GERD s/p multiple fundoplications complicated by recurrent aspiration causing bronchiectasis/asthma who presented to ED with abd pain Patient was seen in GI clinic with Dr. De La Fuente, was started on Dexilant and vonoprazan was considered given the heartburn and history of esophagitis per chart review Patient also presented to the ED April 22 with abdominal pain, CT did not show acute intra-abdominal findings, EGD and colonoscopy were recommended electively, patient did not want to stay in the hospital for elective procedure given the holiday He presented again with abdominal pain, CT abdomen was repeated, no acute intra- abdominal pain findings GI was consulted It is reasonable to proceed with EGD and colonoscopy to assess for esophagitis, currently on Dexilant therapy started recently in GI clinic and colonoscopy is reasonable, patient was offered To drink bowel prep last night, he felt he could not tolerated Consider TCA, based on fundoplication and esophagitis may discuss with bariatric surgery. Electronically Signed By: Vidya Oscar MD Date and Time Signed: 05/01/25 13:28 EST History and physical note * Laisha KENNEDY DO R: PERFORM Event Display: History and Physical Authored Date: [id number] Basic Information Admit Date/Time:04/30/2025 21:38 Chief Complaint pt began having r side flank pain 2 days ago. denies urinary problems. states pain comes around to RLQ and also has nausea. earlier pt also got up and felt dizzy, fell, hit head, and had positive LOCfor about 20 seconds. denies thinners History of Present Illness Patient is a 34-year-old male??with past medical history of??bronchiectasis??who comes in with above-stated chief complaint.?? Patient has been having severe??right flank and right lower quadrant abdominal pain??for about the past 2 to 4 weeks.?? Patient had been admitted to [facility]??for possible small bowel obstruction.?? Patient had NG tube placed??with some improvement in his symptoms. ??Patient was then referred to gastroenterology as an outpatient.?? Patient has been to the ER??at least twice since then due to??persistent??pain.?? On day of admission patient's pain became so severe that he had a syncopal episode. ??Patient??lost consciousness for about 20 seconds??and did hit his head.?? Gastroenterology was consulted from the emergency department??and they are recommending??admission??for colonoscopy for evaluation of possible inflammatory bowel disease.?? Patient states that he has also had a dry??cough over the past few days.?? He has had some nausea but denies any subjective fevers or chills.?? Patient has some mild chest tightness.?? Patient denies any??diarrhea.?? Patient denies any headaches, vision changes, dysuria.?? Patient states that he is currently constipated and not had a bowel movement in a few days. Review of Systems 14 Systems reviewed and negative except as noted in HPI. Scoring Grant Fall Risk Score: 40 (04/30/25) Physical Exam Vitals & Measurements T:??37.0?C(Oral)?? TMIN:??37.0?C(Oral)?? TMAX:??37.7?C(Oral)?? HR:??73(Peripheral)?? RR:??17?? BP:??113/69?? SpO2:??37%?? HT:??160.02??cm?? WT:??55.9??kg?? General: alert, no acute distress Skin: warm, dry Head: no trauma, normocephalic Neck: Trachea midline, no adenopathy, no tenderness Eye: normal conjunctiva, sclera clear ENMT: oral mucosa moist, no pharyngeal erythema or exudate. hearing grossly intact Cardiovascular: regular rate and rhythm, no murmur/gallop/rub Respiratory: Lungs CTA, respirations non labored , no w/r/r Gastrointestinal: Positive bowel sound, soft, non distended, no tenderness, no guarding. Extremities: no deformity, no trauma Osteopathic: Deferred due to being noncontributory to current case. Neurological: oriented x 4, LOC appropriate for age, CN II-XII intact, motor strength equal & normal bilaterally, sensation equal & normal bilaterally, speech normal Psychiatric: cooperative, affect appropriate for age, normal judgement, normal psychiatric thoughts. Lab Results WBC: 6.4 E9/L (04/30/25 18:55:00) RBC: 5.1 E12/L (04/30/25 18:55:00) HGB: 15.1 gm/dL (04/30/25 18:55:00) Hct: 42.8 % (04/30/25 18:55:00) MCV: 83.3 fL (04/30/25 18:55:00) MCH: 29.4 pg (04/30/25 18:55:00) MCHC: 35.2 gm/dL (04/30/25 18:55:00) RDW: 13.8 % (04/30/25 18:55:00) Platelet: 246 E9/L (04/30/25 18:55:00) MPV: 9.5 fL (04/30/25 18:55:00) Neutro Auto: 73.4 % (04/30/25 18:55:00) Lymph Auto:??8.8 %??Low (04/30/25 18:55:00) Ness Auto:??16.3 %??High (04/30/25 18:55:00) Eos Auto: 0 % (04/30/25 18:55:00) Basophil Auto: 1.5 % (04/30/25 18:55:00) Neutro Absolute: 4.7 E9/L (04/30/25 18:55:00) Lymph Absolute:??0.6 E9/L??Low (04/30/25 18:55:00) Ness Absolute: 1 E9/L (04/30/25 18:55:00) Eos Absolute: 0 E9/L (04/30/25 18:55:00) Basophil Absolute: 0.1 E9/L (04/30/25 18:55:00) PT: 12.2 second(s) (04/30/25 18:55:00) INR: 1.09 (04/30/25 18:55:00) PTT: 27.2 second(s) (04/30/25 18:55:00) Glucose Lvl: 96 mg/dL (04/30/25 18:55:00) BUN: 12 mg/dL (04/30/25 18:55:00) Creatinine: 1 mg/dL (04/30/25 18:55:00) eGFR: 101 mL/min/1.73 m2 (04/30/25 18:55:00) BUN/Creat Ratio: 12 (04/30/25 18:55:00) Sodium Lvl: 138 mmol/L (04/30/25 18:55:00) Potassium Lvl:??3.3 mmol/L??Low (04/30/25 18:55:00) Chloride: 102 mmol/L (04/30/25 18:55:00) CO2: 25 mmol/L (04/30/25 18:55:00) AGAP: 14 mEq/L (04/30/25 18:55:00) Calcium Lvl: 9 mg/dL (04/30/25 18:55:00) Alk Phos: 91 Int._Unit/L (04/30/25 18:55:00) ALT: 10 Int._Unit/L (04/30/25 18:55:00) AST: 14 Int._Unit/L (04/30/25 18:55:00) Total Protein: 7.1 gm/dL (04/30/25 18:55:00) Albumin Lvl: 4.3 gm/dL (04/30/25 18:55:00) Globulin: 2.8 gm/dL (04/30/25 18:55:00) A/G Ratio: 1.5 (04/30/25 18:55:00) Bili Total: 0.5 mg/dL (04/30/25 18:55:00) Bili Direct: 0.1 mg/dL (04/30/25 18:55:00) Bili Indirect: 0.4 mg/dL (04/30/25 18:55:00) Lipase Lvl: 20 unit/L (04/30/25 18:55:00) Lactic Acid Lvl: 0.6 mmol/L (04/30/25 18:55:00) Troponin HS:??2.9 pg/mL??Low (04/30/25 18:55:00) UA Spec Desc: Clean Catch (04/30/25 20:57:00) UA Color: Yellow (04/30/25 20:57:00) UA Clarity: Clear (04/30/25 20:57:00) UA Spec Grav: >1.050 (04/30/25 20:57:00) UA pH: 6.0 (04/30/25 20:57:00) UA Protein: Trace Abnormal (04/30/25 20:57:00) UA Glucose: Negat (04/30/25 20:57:00) UA Ketones: Negat (04/30/25 20:57:00) UA Bili: Negat (04/30/25 20:57:00) UA ??Blood: Negat (04/30/25 20:57:00) UA Nitrite: Negat (04/30/25 20:57:00) UA Urobilinogen: Negat (04/30/25 20:57:00) UA Leuk Est: Negat (04/30/25 20:57:00) Assessment/Plan 1.??RLQ abdominal pain??(R10.31: Right lower quadrant pain) Will admit patient to hospital for colonoscopy. ??Bowel prep as ordered below.?? Will place patienton IV PPI.?? Consult gastroenterology. 2.??Syncope??(R55: Syncope and collapse) Suspect patient had a vasovagal??episode secondary to pain.?? Supportive care for time being. 3.??Bronchitis??(J40: Bronchitis, not specified as acute or chronic) Will check respiratory viral PCR.?? No clinical indication of bacterial infection given no fever and no leukocytosis. 4.??Bronchiectasis??(J47.9: Bronchiectasis, uncomplicated) Pulmonary toilet as ordered -budesonide neb twice daily, duo-nebs q4hrs and alb neb q2hrs prn. 5.??On deep vein thrombosis (DVT) prophylaxis??(Z79.899: Other shelter (current) drug therapy) SCD, early ambulation Orders: albuterol-ipratropium, 3 mL, Soln-Inh, Inhalation, q4hr for 30 day(s), Stop date 05/30/25 23:57:00 EST, NOW, Start date 04/30/25 23:58:00 EST benzonatate, 100 mg = 1 cap(s), Cap, Oral, TID PRN Cough, Routine, Start date 04/30/25 23:58:00 EST, 04/30/25 23:58:00 EST budesonide, 0.5 mg = 2 mL, Susp-Inh, NEB, BID for 30 day(s), Stop date 05/30/25 23:57:00 EST, NOW, Start date 04/30/25 23:58:00 EST, 04/30/25 23:58:00 EST HYDROmorphone, 1 mg = 1 mL, Injection, IV Push, q3hr PRN Pain for 30 day(s), Stop date 05/30/25 23:56:00 EST, Routine, Start date 04/30/25 23:57:00 EST, 04/30/25 23:57:00 EST ketorolac, 15 mg = 0.5 mL, Injection, IV Push, q6hr PRN Pain for 5 day(s), Stop date 05/05/25 23:58:00 EST, Routine, Start date 04/30/25 23:59:00 EST, 04/30/25 23:59:00 EST ondansetron, 4 mg = 2 mL, Injection, IV Push, q6hr PRN Nausea, Routine, Start date 05/01/25 0:11:00EST, 05/01/25 0:11:00 EST pantoprazole, 40 mg = 10 mL, Injection, IV Push, Daily, Routine, Start date 05/01/25 9:00:00 EST, 05/01/25 0:10:00 EST polyethylene glycol 3350, 238 gm, Powder-Recon, Oral, Once, Stop date 04/30/25 22:00:00 EST, Routine, Start date 04/30/25 22:00:00 EST polyethylene glycol 3350 with electrolytes, 2,000 mL, Powder, Oral, q7hr, Routine, Start date 04/30/25 23:00:00 EST Sodium Chloride 0.9% intravenous solution 1,000 mL, 1,000 mL, IV, 20 mL/hr, Routine, Start date 04/30/25 21:39:00 EST, 50 hour(s), Total volume (mL): 1,000, 57.1 kg, SEND PATIENT TO ENDOSCOPY WITH IVINFUSING, 1.59, m2 Activity As Tolerated Below the Knee Intermittent Pneumatic Compression Device Clear Liquid Diet Consult to Gastroenterology Notify Provider Vital Signs Notify Provider Vital Signs NPO Diet Oxygen Protocol Respiratory Panel by PCR Resuscitation Status - Full Saline Lock Convert From IV Vital Signs Water Intake AFTER Colonoscopy Prep Weight Anticipated stay greater than 2 midnights due to above Problem List/Past Medical History Ongoing Abdominal pain in male Adverse effect of unspecified narcotics, initial encounter Alcohol use disorder Bronchiectasis Diarrhea Esophageal dysphagia Former light tobacco smoker Hiatal hernia History of fundoplication [place] grade B esophagitis Right lower quadrant abdominal pain Smoker Historical Born very premature Constipation Fracture of nasal bones Fundoplication Left lower quadrant abdominal pain during Pneumonia Small bowel obstruction Tracheo-oesophageal fistula Procedure/Surgical History Closed reduction of nasal fracture (12/28/2016), CRNF with stabilization (12/28/2016), EGD (esophagogastroduodenoscopic) electrohydraulic lithotripsy of bezoar in stomach, feeding tube at , right facial reconstruction, TFP - Total fundoplication, Tracheal tube. Medications Inpatient budesonide 0.5 mg/2 mL Inh Susp, 0.5 mg= 2 mL, NEB, BID Dilaudid 1 mg/mL injectable solution, 1 mg= 1 mL, IV Push, q3hr, PRN DuoNeb 2.5 mg-0.5 mg/3 mL Soln-Inh, 3 mL, Inhalation, q4hr ketorolac 30 mg/mL Inj 1 mL, 15 mg= 0.5 mL, IV Push, q6hr, PRN NS 1000 mL Soln-IV 1,000 mL, 1000 mL, IV pantoprazole 40 mg IV Inj, 40 mg= 10 mL, IV Push, Daily polyethylene glycol 3350 with electrolytes Oral Pwdr for Patricia 4000 mL (GoLytely), 2000 mL, Oral, q7hr Tessalon 100 mg Cap, 100 mg= 1 cap(s), Oral, TID, PRN Zofran 4 mg/2 mL Injection, 4 mg= 2 mL, IV Push, q6hr, PRN Home albuterol, 2 puff(s), Inhalation, q4hr, PRN Bentyl 10 mg Cap, 10 mg= 1 cap(s), Oral, QID, PRN clarithromycin, Oral Dexilant 60 mg oral delayed release capsule, 60 mg= 1 cap(s), Oral, Daily Dexilant 60 mg oral delayed release capsule, 60 mg= 1 cap(s), Oral, Daily, 1 refills doxycycline naproxen 500 mg Tab, 500 mg= 1 tab(s), Oral, BID predniSONE, Oral, Daily trazodone, Oral,?Not taking Zofran 4 mg Tab, 4 mg= 1 tab(s), Oral, q6hr,?Not taking Zofran ODT 4 mg Tab-Dis, 4 mg= 1 tab(s), Oral, q8hr, PRN Zofran ODT 4 mg Tab-Dis, 4 mg= 1 tab(s), Oral, q8hr, PRN Zofran ODT 4 mg Tab-Dis, 4 mg= 1 tab(s), Oral, q6hr, PRN,?Not taking Zofran ODT 4 mg Tab-Dis, 4 mg= 1 tab(s), Oral, q8hr, PRN Allergies penicillin??(Hives) Social History Alcohol - Denies Alcohol Use, 12/27/2016 Current. Beer. 1-2 times per month., 02/18/2025 Substance Abuse - Medium Risk, 02/23/2024 Current, Marijuana, Daily, 04/30/2025 Past. Methamphetamines, Prescription medications. Daily. Previous treatment: Inpatient, Outpatient., 02/18/2025 Tobacco - Denies Tobacco Use, 12/27/2016 Former smoker, quit more than 30 days ago Tobacco Use:. Never, Smokeless tobacco user within last 30 days Smokeless Tobacco Use:. Cigarettes, Oral, 04/22/2025 Current Every Day Smoker, Cigarettes, 12/27/2016 Family History Diabetes mellitus type 2: Mother. Immunizations Vaccine Date Statusdiphtheria/pertussis, acel/tetanus adult 04/14/2022 Recorded influenza virus vaccine, inactivated 04/02/2019 Recorded pneumococcal 23-valent vaccine 11/10/2016 Recorded influenza virus vaccine, inactivated 03/24/2016 Recorded influenza virus vaccine, inactivated 03/16/2016 Recorded pneumococcal 13-valent vaccine 03/02/2016 Recorded pneumococcal 23-valent vaccine 12/14/2015 Recorded influenza virus vaccine, inactivated 03/20/2015 Recorded hepatitis B pediatric vaccine 09/24/2007 Recorded hepatitis B pediatric vaccine 04/26/2007 Recorded influenza, whole 03/26/2007 Recorded hepatitis B pediatric vaccine 03/26/2007 Recorded Electronically Signed By: Laisha KENNEDY DO Date and Time Signed: 05/01/25 00:29 EST Note * AMANDA POWELL, [place]: PERFORM Event Display: Progress Note-Physician Authored Date: Assessment/Plan 34-year-old male with history of bronchiectasis,??emphysema,??hiatal hernia/esophagitis??status post??fundoplication??who is currently being treated??for acute bronchitis with clarithromycin and??prednisone at home??presented with complaints of??right lower quadrant abdominal pain and flank pain, shortness of breath and cough, dizziness and a fall??with??transient loss of consciousness??and had afever??and was admitted with right lower quadrant abdominal pain,??syncope,??sepsis secondary to??pneumonia, bronchiectasis,??hypokalemia??and closed head injury. 1.??Sepsis??(A41.9: Sepsis, unspecified organism) Secondary to pneumonia. Sepsis has resolved. Treated with IV fluid. Continue on IV meropenem pending blood culture result. Ordered: Sbsq Hospital Care/Day Moderate 35 Minutes [id number] ?? 2.??Pneumonia??(J18.9: Pneumonia, unspecified organism) Left lobe pneumonia. Continue on IV meropenem. Follow cultures. Ordered: Sbsq Hospital Care/Day Moderate 35 Minutes [id number] ?? 3.??Syncope??(R55: Syncope and collapse) Likely secondary to dehydration. Treated with IV fluid. CT brain??normal. Ordered: Sbsq Hospital Care/Day Moderate 35 Minutes [id number] ?? 4.??RLQ abdominal pain??(R10.31: Right lower quadrant pain) Resolved. Seen by engine wiper underwent EGD??with biopsies obtained. As per engine wiper patient will follow-up with them as outpatient to consider??colonoscopy. Ordered: Sbsq Hospital Care/Day Moderate 35 Minutes [id number] ?? 5.??Bronchitis??(J40: Bronchitis, not specified as acute or chronic) Present on admission. Continue nebulizer treatments as needed. Ordered: Sbsq Hospital Care/Day Moderate 35 Minutes [id number] ?? 6.??Closed head injury??(S09.90XA: Unspecified injury of head, initial encounter) Secondary to??fall. Active care. Ordered: Sbsq Hospital Care/Day Moderate 35 Minutes [id number] ?? 7.??Hypokalemia??(E87.6: Hypokalemia) Recurrent. Will replace with oral potassium as patient is intolerant to IV. ?? 8.??Back pain??(M54.9: Dorsalgia, unspecified) Lidoderm patch ?? 9.??Bronchiectasis??(J47.9: Bronchiectasis, uncomplicated) Chronic bronchiectasis and emphysema. Nebulizer treatments as needed. ?? 10.??On deep vein thrombosis (DVT) prophylaxis??(Z79.899: Other shelter (current) drug therapy) SCDs. ?? Disposition:??Home in AM. ?? I discussed the diagnosis and plan of care with the patient at the bedside. ?? Moderate level of MDM based on addressing above issues. ?? This documentation was transcribed using voice recognition software. ??Several attempts were made to ensure accuracy. ??However inadvertent computerized animal keeper head errors may be present. ?? Melanie Patel. Hospitalist. ?? Orders: lidocaine topical, 1 patch(es), Patch, TransDermal, Daily, NOW, Start date 05/02/25 9:13:00 EST, Right lower back potassium chloride, 40 mEq = 2 tab(s), Tab-ER, Oral, Once, Stop date 05/02/25 8:00:00 EST, Routine,Start date 05/02/25 8:00:00 EST, 05/02/25 7:32:00 EST potassium chloride, 40 mEq = 2 tab(s), Tab-ER, Oral, Once, Stop date 05/02/25 13:00:00 EST, Routine, Start date 05/02/25 13:00:00 EST, 05/02/25 13:00:00 EST potassium chloride + Generic Diluent 100 mL, 20 mEq = 100 mL, Soln-IV, IV Piggyback, q2hr for 2 dose(s), Stop date 05/01/25 11:59:00 EST, Routine, Start date 05/01/25 8:00:00 EST, 50 mL/hr, Infuse over 2 hour(s) remove patch, 1 patch(es), Patch, Topical, Bedtime, 05/02/25 21:00:00 EST Sodium Chloride 0.9% intravenous solution, 1,000 mL, Soln-IV, IV, Once, Stop date 05/01/25 11:09:00EST, STAT, Start date 05/01/25 11:09:00 EST, mL/hr, Infuse over 61, minute(s) Add on Test Basic Metabolic Panel Blood Culture Charcoal Blood [facility] Cardiac Monitoring eGFR Extra Lav Tube Lactic Acid Magnesium Level Orthostatic Vitals Signs Oxygen Desaturation Study Potassium Level Regular Diet Sputum Culture Urine Culture Subjective Seen and examined. ??He feels better with improving??cough and shortness of breath.?? Denies abdominal pain. ??Only has right lower back pain.?? Completed EGD yesterday. Objective Vitals & Measurements T:??36.5?C(Oral)?? TMIN:??36.4?C(Temporal Artery)?? TMAX:??37.2?C(Oral)?? HR:??90(Monitored)?? RR:??16?? BP:??110/67?? BP:??95/63(Standing)?? BP:??109/62(Supine)?? SpO2:??98%?? WT:??54.8??kg?? Intake & Output ?? This visit (24 hour periods starting at 07:00 EST)? 05/02/25 *?? 05/01/25?? 04/30/25?? Total Summary?Intake mL?? 10.5?? 366.5?? 1,505.5?Output mL?? 550?? 800?? 150?Fluid Balance ?? -539.5?? -433.5?? 1,355.5?? Intake (8)?Oral Intake mL?? --?? 240?? 500?Sodium Chloride 0.9% mL?? --?? 100?? 1,000?ketorolac mL?? 0.5?? 0.5?? 1.5?lidocaine mL?? --?? 4?? --?morphine mL?? --?? --?? 2?ondansetron mL?? --?? 2?? 2?pantoprazole mL?? 10?? 10?? --?propofol mL?? --?? 10?? --?Total?? 10.5?? 366.5?? 1,505.5?? Output (1)?Urine Voided mL?? 550?? 800?? 150?Total?? 550?? 800?? 150?? Counts (1)?Stool Count ?? --?? 2?? --? * This column has not completed the indicated time period.?? Physical Exam General:??alert,??no acute??distress,??comfortable in bed on nasal cannula oxygen. Skin:??warm,??dry Head:??no??trauma,??normocephalic Neck: Trachea??midline,??no??adenopathy,??no??tenderness Eye:??normal??conjunctiva, sclera??clear ENMT: TM's??clear, oral mucosa??moist,??no??pharyngeal erythema or exudate Cardiovascular:??regular??rate and rhythm,??normal??peripheral perfusion Respiratory: Lungs??CTA, respirations??non labored Chest wall:??no??deformity. Gastrointestinal:??soft,??non distended,?no??tenderness,?no??guarding.?? Bowel sounds intact. Back:?Mild??right??paralumbar??right??paralumbar tenderness,?Normal?ROM,?Normal?alignment. Extremities:??no??deformity,??no??trauma Neurological: oriented x 4, LOC appropriate for age, CN II-XII intact, motor strength equal & normal bilaterally, sensation equal & normal bilaterally, speech normal Psychiatric:??cooperative, affect??appropriate for age,??normal??judgement,??normal??psychiatric thoughts. Lab Results Glucose Lvl: 100 mg/dL (05/02/25 05:34:00) BUN: 11 mg/dL (05/02/25 05:34:00) Creatinine: 0.9 mg/dL (05/02/25 05:34:00) eGFR: 114 mL/min/1.73 m2 (05/02/25 05:34:00) BUN/Creat Ratio: 12 (05/02/25 05:34:00) Sodium Lvl: 137 mmol/L (05/02/25:34:00) Potassium Lvl:??3.3 mmol/L??Low (05/02/25:34:00) Chloride: 104 mmol/L (05/02/25 05:34:00) CO2: 27 mmol/L (05/02/25:34:00) AGAP: 9 mEq/L (05/02/25:34:00) Calcium Lvl:??7.7 mg/dL??Low (05/02/25 05:34:00) Lactic Acid Lvl: 0.5 mmol/L (05/01/25 11:45:00) Magnesium: 1.9 mg/dL (05/02/25:34:00) Adenovirus: Not Detected (05/01/25 10:22:00) B. holmesii: Not Detected (05/01/25 10:22:00) B. parapertussis/bronchiseptica: Not Detected (05/01/25 10:22:00) B. pertussis: Not Detected (05/01/25 10:22:00) Human Metapneumovirus: Not Detected (05/01/25 10:22:00) Influenza A: Not Detected (05/01/25 10:22:00) Influenza A (subtype H1): Not Detected (05/01/25 10:22:00) Influenza A (subtype H3): Not Detected (05/01/25 10:22:00) Influenza B: Not Detected (05/01/25 10:22:00) Parainfluenza 1: Not Detected (05/01/25 10:22:00) Parainfluenza 2: Not Detected (05/01/25 10:22:00) Parainfluenza 3: Not Detected (05/01/25 10:22:00) Parainfluenza 4: Not Detected (05/01/25 10:22:00) Rhinovirus: Not Detected (05/01/25 10:22:00) RSV A: Not Detected (05/01/25 10:22:00) RSV B: Not Detected (05/01/25 10:22:00) Problem List/Past Medical History Ongoing Abdominal pain in male Adverse effect of unspecified narcotics, initial encounter Alcohol use disorder Bronchiectasis Diarrhea Esophageal dysphagia Former light tobacco smoker Hiatal hernia History of fundoplication [place] grade B esophagitis Right lower quadrant abdominal pain Smoker Historical Born very premature Constipation Fracture of nasal bones Fundoplication Left lower quadrant abdominal pain during Pneumonia Small bowel obstruction Tracheo-oesophageal fistula Medications Inpatient acetaminophen additive + Generic Diluent 100 mL budesonide 0.5 mg/2 mL Inh Susp, 0.5 mg= 2 mL, NEB, BID Dilaudid 1 mg/mL injectable solution, 1 mg= 1 mL, IV Push, q3hr, PRN DuoNeb 2.5 mg-0.5 mg/3 mL Soln-Inh, 3 mL, Inhalation, q4hr ketorolac 30 mg/mL Inj 1 mL, 15 mg= 0.5 mL, IV Push, q6hr, PRN Lidoderm 5% Patch, 1 patch(es), TransDermal, Daily meropenem additive + Sodium Chloride 0.9% intravenous solution 50 mL NS 1000 mL Soln-IV 1,000 mL, 1000 mL, IV pantoprazole 40 mg IV Inj, 40 mg= 10 mL, IV Push, Daily potassium chloride 20 mEq ER Tab, 40 mEq= 2 tab(s), Oral, Once remove patch, 1 patch(es), Topical, Bedtime Sodium Chloride 0.9% IV Patricia 1000 mL 1,000 mL, 1000 mL, IV Sodium Chloride 0.9% IV Patricia 500 mL 500 mL, 500 mL, IV Tessalon 100 mg Cap, 100 mg= 1 cap(s), Oral, TID, PRN Zofran 4 mg/2 mL Injection, 4 mg= 2 mL, IV Push, q6hr, PRN Home albuterol, 2 puff(s), Inhalation, q4hr, PRN Bentyl 10 mg Cap, 10 mg= 1 cap(s), Oral, QID, PRN clarithromycin, Oral Dexilant 60 mg oral delayed release capsule, 60 mg= 1 cap(s), Oral, Daily Dexilant 60 mg oral delayed release capsule, 60 mg= 1 cap(s), Oral, Daily, 1 refills doxycycline naproxen 500 mg Tab, 500 mg= 1 tab(s), Oral, BID predniSONE, Oral, Daily trazodone, Oral,?Not taking Zofran 4 mg Tab, 4 mg= 1 tab(s), Oral, q6hr,?Not taking Zofran ODT 4 mg Tab-Dis, 4 mg= 1 tab(s), Oral, q8hr, PRN Zofran ODT 4 mg Tab-Dis, 4 mg= 1 tab(s), Oral, q8hr, PRN Zofran ODT 4 mg Tab-Dis, 4 mg= 1 tab(s), Oral, q6hr, PRN,?Not taking Zofran ODT 4 mg Tab-Dis, 4 mg= 1 tab(s), Oral, q8hr, PRN Electronically Signed By: AMANDA POWELL, Ishmaelfo Date and Time Signed: 05/02/25 10:12 EST * Kendrick Lawrence Jr., DO: VERIFY, PERFORM, SIGN Event Display: Progress Note-Physician Authored Date: Patient: FRANCIS GALVEZ Age: 34 years Sex: Male : 1990 Associated Diagnoses: None Author: Kendrick Lawrence Jr., DO Postoperative Information Postoperative disposition: Postoperative disposition: Home. Optimetrix number Anesthetic utilized: General. Physical Examination Vital Signs 05/01/2025 14:22 EST Hourly Rounding Yes Promise to Return Yes 05/01/2025 14:00 EST Heart Rate Monitored 96 bpm Respiratory Rate Monitored 17 br/min SpO2 91 % 05/01/2025 14:00 EST Systolic Blood Pressure 106 mmHg Diastolic Blood Pressure 61 mmHg 05/01/2025 14:00 EST Temperature Temporal Artery 36.7 DegC Heart Rate Monitored 93 bpm Respiratory Rate 18 br/min Systolic Blood Pressure 110 mmHg Diastolic Blood Pressure 63 mmHg Blood Pressure Location Right arm Mean Arterial Pressure, Cuff 76 mmHg Mean Arterial Pressure, Cuff 79 mmHg SpO2 98 % 05/01/2025 13:55 EST Heart Rate Monitored 90 bpm 05/01/2025 13:55 EST SpO2 90 % 05/01/2025 13:55 EST Respiratory Rate Monitored 25 br/min 05/01/2025 13:55 EST Systolic Blood Pressure 96 mmHg Diastolic Blood Pressure 54 mmHg LOW 05/01/2025 13:55 EST Blood Pressure Location Right arm Mean Arterial Pressure, Cuff 68 mmHg 05/01/2025 13:50 EST Heart Rate Monitored 94 bpm SpO2 93 % 05/01/2025 13:50 EST Respiratory Rate Monitored 26 br/min 05/01/2025 13:50 EST Systolic Blood Pressure 93 mmHg Diastolic Blood Pressure 47 mmHg LOW 05/01/2025 13:50 EST Blood Pressure Location Right arm Mean Arterial Pressure, Cuff 62 mmHg 05/01/2025 13:46 EST Respiratory Rate Monitored 25 br/min 05/01/2025 13:46 EST Systolic Blood Pressure 95 mmHg Diastolic Blood Pressure 46 mmHg LOW 05/01/2025 13:46 EST Temperature Temporal Artery 36.9 DegC Heart Rate Monitored 93 bpm Blood Pressure Location Right arm Mean Arterial Pressure, Cuff 62 mmHg SpO2 95 % Pain Assessment: Controlled. General: Awake, Alert, Appropriate. Respiratory: Adequate air exchange, Non-labored. Cardiovascular: Stable, Normal peripheral perfusion. Neurological: Neurologic exam at baseline. No changes.. Assessment Anesthetic outcome No anesthetic complications noted. No nausea/vomiting. Review / Management Condition: Stable. Plan Transfer/Discharge: Transfer/Discharge Discharge when meets criteria ( From PACU to Ambulatory Surgery Unit, and To home ). Electronically Signed By: Kendrick Lawrence Jr., DO Date and Time Signed: 05/01/25 15:05 EST * Kendrick Lawrence Jr., DO: VERIFY, PERFORM, SIGN Event Display: Progress Note-Physician Authored Date: Patient: FRANCIS GALVEZ Age: 34 years Sex: Male : 1990 Associated Diagnoses: None Author: Kendrick Lawrence Jr., DO Preoperative Information Anesthesia history: Patient history: No prior anesthetic problems. Informed consent: Signed by patient. Re-evaluation prior to induction: Initial evaluation reviewed: No significant change. Review of Systems Respiratory: Negative except as documented in history of present illness. Cardiovascular: Negative except as documented in history of present illness. Health Status Allergies: Allergic Reactions (Selected) Severity Not Documented Penicillin- Hives., Allergies (1) Active Severity Reaction penicillin Hives Current medications: (Selected) Inpatient Medications Ordered Dilaudid 1 mg/mL injectable solution: 1 mg = 1 mL, Injection, IV Push, q3hr PRN Pain for 30 day(s),Stop date 05/30/25 23:56:00 EST, Routine, Start date 04/30/25 23:57:00 EST, 04/30/25 23:57:00 EST DuoNeb 2.5 mg-0.5 mg/3 mL Soln-Inh: 3 mL, Soln-Inh, Inhalation, q4hr for 30 day(s), Stop date 05/30/25 23:57:00 EST, NOW, Start date 04/30/25 23:58:00 EST Lactated Ringers IV Patricia 1000 mL 1,000 mL: 1,000 mL, IV, 100 mL/hr, Routine, Start date 05/01/25 13:04:00 EST, 10 hour(s), Total volume (mL): 1,000, 57.1 kg, 1.59, m2 NS 1000 mL Soln-IV 1,000 mL: 1,000 mL, IV, 20 mL/hr, Routine, Start date 04/30/25 21:39:00 EST, 50 hour(s), Total volume (mL): 1,000, 57.1 kg, SEND PATIENT TO ENDOSCOPY WITH IV INFUSING, 1.59, m2 Sodium Chloride 0.9% IV Patricia 500 mL 500 mL: 500 mL, IV, 50 mL/hr, for 1 dose(s), Stop date 05/01/25 17:37:00 EST, Routine, Start date 05/01/25 7:38:00 EST, 10 hour(s), Total volume (mL): 500, 57.1 kg,1.59, m2 Tessalon 100 mg Cap: 100 mg = 1 cap(s), Cap, Oral, TID PRN Cough, Routine, Start date 04/30/25 23:58:00 EST, 04/30/25 23:58:00 EST Zofran 4 mg/2 mL Injection: 4 mg = 2 mL, Injection, IV Push, q6hr PRN Nausea, Routine, Start date 05/01/25 0:11:00 EST, 05/01/25 0:11:00 EST acetaminophen additive + Generic Diluent 100 mL: 1,000 mg = 100 mL, Soln-IV, IV Piggyback, q6hr PRNPain/Fever, Routine, Start date 05/01/25 8:35:00 EST, 400 mL/hr, Infuse over 15 minute(s) budesonide 0.5 mg/2 mL Inh Susp: 0.5 mg = 2 mL, Susp-Inh, NEB, BID for 30 day(s), Stop date 05/30/25 23:57:00 EST, NOW, Start date 04/30/25 23:58:00 EST, 04/30/25 23:58:00 EST ketorolac 30 mg/mL Inj 1 mL: 15 mg = 0.5 mL, Injection, IV Push, q6hr PRN Pain for 5 day(s), Stop date 05/05/25 23:58:00 EST, Routine, Start date 04/30/25 23:59:00 EST, 04/30/25 23:59:00 EST meropenem additive + Sodium Chloride 0.9% intravenous solution 50 mL: 1,000 mg = 1 EA, Powder-Inj, IV Piggyback, q8hrFT, NOW, Start date 05/01/25 8:41:00 EST, 100 mL/hr, Infuse over 30 minute(s) pantoprazole 40 mg IV Inj: 40 mg = 10 mL, Injection, IV Push, Daily, Routine, Start date 05/01/25 9:00:00 EST, 05/01/25 0:10:00 EST polyethylene glycol 3350 with electrolytes Oral Pwdr for Patricia 4000 mL (GoLytely): 2,000 mL, Powder, Oral, q7hr, Routine, Start date 04/30/25 23:00:00 EST Pending Complete potassium chloride additive + premix generic diluent 100 mL: 20 mEq = 100 mL, Soln-IV, IV Piggyback, q2hr for 2 dose(s), Stop date 05/01/25 11:59:00 EST, Routine, Start date 05/01/25 8:00:00 EST, 50 mL/hr, Infuse over 2 hour(s) Prescriptions Prescribed Bentyl 10 mg Cap: 10 mg = 1 cap(s), Oral, QID, PRN abdominal pain, # 28 cap(s), Refills(s) 0, [id number], cm, 04/22/25 15:30:00 EST, Height/Length Dosing, 57.8, kg, 04/22/25 15:30:00 EST, Weight Dosing Dexilant 60 mg oral delayed release capsule: 60 mg = 1 cap(s), Oral, Daily, # 30 cap(s), Refills(s)0, [id number] 157, cm, 02/18/25 13:37:00 EDT, Height/Length Dosing, 55.7, kg, 02/18/25 13:37:00 EDT, Weight Dosing Dexilant 60 mg oral delayed release capsule: 60 mg = 1 cap(s), Oral, Daily, # 90 cap(s), Refills(s)1, Pharmacy: [facility] #[id number], 157, cm, 02/18/25 13:37:00 EDT, Height/Length Dosing, 55.7, kg, 02/18/25 13:37:00 EDT, Weight Dosing Zofran 4 mg Tab: 4 mg = 1 tab(s), Oral, q6hr, # 12 tab(s), Refills(s) 0 Zofran ODT 4 mg Tab-Dis: 4 mg = 1 tab(s), Oral, q6hr, PRN Nausea, # 8 tab(s), Refills(s) 0, [id number] Zofran ODT 4 mg Tab-Dis: 4 mg = 1 tab(s), Oral, q8hr, PRN Nausea/Vomiting, # 12 tab(s), Refills(s) 0, [id number], 157, cm, 04/22/25 15:30:00 EST, Height/Length Dosing, 57.8, kg, 04/22/25 15:30:00 EST, Weight Dosing Zofran ODT 4 mg Tab-Dis: 4 mg = 1 tab(s), Oral, q8hr, PRN Nausea/Vomiting, # 12 tab(s), Refills(s) 0, [id number], 157.5, cm, 06/16/24 20:27:00 EST, Height/Length Dosing, 54.3, kg, 06/16/24 20:27:00 EST, Weight Dosing Zofran ODT 4 mg Tab-Dis: 4 mg = 1 tab(s), Oral, q8hr, PRN Nausea/Vomiting, # 12 tab(s), Refills(s) 0, [id number], 160, cm, 02/23/24 20:01:00 EDT, Height/Length Dosing, 59, kg, 02/23/24 20:01:00 EDT, Weight Dosing naproxen 500 mg Tab: 500 mg = 1 tab(s), Oral, BID, # 60 tab(s), Refills(s) 0, [id number], 157, cm, 04/22/25 15:30:00 EST, Height/Length Dosing, 57.8, kg, 04/22/25 15:30:00 EST, Weight Dosing Documented Medications Documented albuterol: = 2 puff(s), Inhalation, q4hr, PRN Wheezing, Refills(s) 0 clarithromycin: Oral, Refills(s) 0 doxycycline: Refills(s) 0 predniSONE: Oral, Daily, Refills(s) 0 trazodone: Oral, Refills(s) 0, Home Medications (14) Active albuterol 2 puff(s), PRN, Inhalation, q4hr Bentyl 10 mg Cap 10 mg = 1 cap(s), PRN, Oral, QID clarithromycin , Oral Dexilant 60 mg oral delayed release capsule 60 mg = 1 cap(s), Oral, Daily Dexilant 60 mg oral delayed release capsule 60 mg = 1 cap(s), Oral, Daily doxycycline naproxen 500 mg Tab 500 mg = 1 tab(s), Oral, BID predniSONE , Oral, Daily trazodone , Oral Zofran 4 mg Tab 4 mg = 1 tab(s), Oral, q6hr Zofran ODT 4 mg Tab-Dis 4 mg = 1 tab(s), PRN, Oral, q6hr Zofran ODT 4 mg Tab-Dis 4 mg = 1 tab(s), PRN, Oral, q8hr Zofran ODT 4 mg Tab-Dis 4 mg = 1 tab(s), PRN, Oral, q8hr Zofran ODT 4 mg Tab-Dis 4 mg = 1 tab(s), PRN, Oral, q8hr , Medications (13) Active Scheduled: (5) albuterol-ipratropium 2.5 mg-0.5 mg/3 mL SOLN [F] 3 mL, Inhalation, q4hr budesonide 0.5 mg/2 mL Inh Susp [F] 0.5 mg 2 mL, NEB, BID meropenem + Sodium Chloride 0.9% Minibag 50 mL 1,000 mg 1 EA, IV Piggyback, q8hrFT pantoprazole 40 mg IV Inj [F] 40 mg 10 mL, IV Push, Daily polyethylene glycol 3350 with electrolytes Oral Pwdr for Patricia 4000 mL (GoLytely) [F] 2,000 mL, Oral,q7hr Continuous: (3) Lactated Ringers 1,000 mL 1,000 mL, IV, 100 mL/hr Sodium Chloride 0.9% 1,000 mL 1,000 mL, IV, 20 mL/hr Sodium Chloride 0.9% 500 mL 500 mL, IV, 50 mL/hr PRN: (5) acetaminophen + Generic Diluent 100 mL 1,000 mg 100 mL, IV Piggyback, q6hr benzonatate 100 mg Cap [F] 100 mg 1 cap(s), Oral, TID HYDROmorphone 1 mg/mL SOLN [F] 1 mg 1 mL, IV Push, q3hr ketorolac 30 mg/mL Inj 1 mL [F] 15 mg 0.5 mL, IV Push, q6hr ondansetron 2 mg/mL Inj [F] 4 mg 2 mL, IV Push, q6hr Problem list: All Problems Abdominal pain in male / SNOMED CT 57160130 / Confirmed Adverse effect of unspecified narcotics, initial encounter / SNOMED CT 256730756 / Confirmed Alcohol use disorder / SNOMED CT 2059535663 / Confirmed Bronchiectasis / SNOMED CT 74415989 / Confirmed Diarrhea / SNOMED CT 190547280 / Confirmed Esophageal dysphagia / SNOMED CT 15685720 / Confirmed Former light tobacco smoker / SNOMED CT 216466213682496 / Confirmed Headaches, cluster / SNOMED CT 742318690 / Confirmed exercise induced Hiatal hernia / SNOMED CT 530989450 / Confirmed History of fundoplication / SNOMED CT 3596501148 / Confirmed Indigestion / SNOMED CT 974330679 / Confirmed [place] grade B esophagitis / SNOMED CT 51646402 / Confirmed Right lower quadrant abdominal pain / SNOMED CT 789988758 / Confirmed Smoker / IMO [id number] / Confirmed Added secondary to documentation in Social History. Resolved: Born very premature / SNOMED CT 163319205 Resolved: Constipation / SNOMED CT 19895057 Resolved: Fracture of nasal bones / SNOMED CT 009569885 Resolved: Fundoplication / SNOMED CT 833303309 Resolved: Left lower quadrant abdominal pain during / SNOMED CT 882313669 Resolved: Pneumonia / SNOMED CT [id number] Resolved: Small bowel obstruction / SNOMED CT 738165803 Resolved: Tracheo-oesophageal fistula / SNOMED CT 5114580044 Canceled: Bronchitis / SNOMED CT 31475420 Canceled: Smoker / IMO [id number] Added secondary to documentation in Social History. Pt states quit smoking 07/2016 Histories Past Medical History: Active Former light tobacco smoker ([id number]) Resolved Constipation (00834796): Onset on 03/27/2017 at 26 years. Resolved. Fracture of nasal bones (834157789): Onset in 2017 at 26 years. Resolved. Tracheo-oesophageal fistula (5411823411): Resolved. Pneumonia ([id number]): Resolved. Born very premature (794406991): Resolved. Fundoplication (971644000): Resolved. Left lower quadrant abdominal pain during (720006068): Resolved. Small bowel obstruction (636720223): Resolved. Procedure history: CRNF with stabilization on 12/28/2016 at 26 Years. Closed reduction of nasal fracture (21221322) on 12/28/2016 at 26 Years. right facial reconstruction. feeding tube at . Tracheal tube (963338970). Comments: 12/27/2016 12:46 EDT - Francisco Javier RN, BSN, [facility] at [facility] - Total fundoplication (240109288). EGD (esophagogastroduodenoscopic) electrohydraulic lithotripsy of bezoar in stomach (5205050222). Comments: 02/18/2025 13:28 EDT - Marlyn Medeiros 12/2024 Social History Social & Psychosocial Habits Alcohol Comment: jackie - 12/27/2016 12:46 - Francisco Javier RN, BSN, [place] 04/30/2025 Risk Assessment: Denies Alcohol Use Comment: - 04/15/2017 01:31 - Micheal Blount CNP 04/30/2025 Use: Current Type: Beer Frequency: 1-2 times per month Substance Abuse Comment: - 04/15/2017 01:31 - Micheal Blount CNP 04/30/2025 Risk Assessment: Medium Risk 04/30/2025 Use: Past Frequency: Daily Type: Methamphetamines, Prescription medications Previous treatment: Inpatient, Outpatient Comment: [facility] for anxiety - 02/23/2024 20:55 - Selin Mcdermott RN 04/30/2025 Use: Current Type: Marijuana Frequency: Daily Tobacco 04/30/2025 Tobacco Use: Current Every Day Smoker Type: Cigarettes Comment: pd - 10/15/2016 22:21 - Christina Larose RN; den - 12/27/2016 12:46 - Francisco Javier HART, PORTIAN, [place] 04/30/2025 Risk Assessment: Denies Tobacco Use 04/30/2025 Tobacco Use: Former smoker, quit more Smokeless tobacco use: Never, Smokeless tobacco user wi Type: Cigarettes, Oral Comment: [facility] quit smoking 07/2016 - 03/27/2017 00:32 - Micheal Blount CNP Physical Examination Vital Signs 05/01/2025 11:59 EST Hourly Rounding Yes Promise to Return Yes 05/01/2025 11:45 EST Heart Rate Monitored 92 bpm Respiratory Rate 16 br/min 05/01/2025 11:32 EST Heart Rate Monitored 94 bpm Respiratory Rate 16 br/min 05/01/2025 11:13 EST Heart Rate Monitored 93 bpm SpO2 96 % 05/01/2025 11:12 EST Temperature Oral 37 DegC 05/01/2025 11:11 EST Systolic Blood Pressure 109 mmHg Diastolic Blood Pressure 62 mmHg Mean Arterial Pressure, Cuff 78 mmHg 05/01/2025 11:11 EST Respiratory Rate 18 br/min 05/01/2025 10:19 EST Hourly Rounding Yes Promise to Return Yes 05/01/2025 9:25 EST Hourly Rounding Yes Promise to Return Yes 05/01/2025 9:00 EST Temperature Oral 37.2 DegC 05/01/2025 8:23 EST Hourly Rounding Yes Promise to Return Yes 05/01/2025 8:07 EST Heart Rate Monitored 121 bpm HI SpO2 93 % 05/01/2025 8:06 EST Respiratory Rate 20 br/min 05/01/2025 8:05 EST Temperature Oral 38.4 DegC HI 05/01/2025 8:05 EST Systolic Blood Pressure 131 mmHg Diastolic Blood Pressure 69 mmHg Mean Arterial Pressure, Cuff 90 mmHg 05/01/2025 7:47 EST Heart Rate Monitored 100 bpm Respiratory Rate 17 br/min SpO2 97 % 05/01/2025 7:29 EST Heart Rate Monitored 83 bpm Respiratory Rate 14 br/min SpO2 97 % 05/01/2025 7:00 EST Hourly Rounding Yes Promise to Return Yes 05/01/2025 6:13 EST Hourly Rounding Yes Promise to Return Yes 05/01/2025 5:05 EST Hourly Rounding Yes Promise to Return Yes 05/01/2025 4:59 EST Heart Rate Monitored 78 bpm Respiratory Rate 18 br/min 05/01/2025 4:49 EST Heart Rate Monitored 60 bpm Respiratory Rate 18 br/min SpO2 97 % 05/01/2025 4:00 EST Hourly Rounding Yes Promise to Return Yes 05/01/2025 3:00 EST Hourly Rounding Yes Promise to Return Yes 05/01/2025 2:06 EST Hourly Rounding Yes Promise to Return Yes 05/01/2025 1:00 EST Hourly Rounding Yes Promise to Return Yes 05/01/2025 0:57 EST Heart Rate Monitored 97 bpm Respiratory Rate 18 br/min 05/01/2025 0:43 EST Heart Rate Monitored 79 bpm Respiratory Rate 20 br/min SpO2 97 % 05/01/2025 0:16 EST Temperature Oral 37.0 DegC Peripheral Pulse Rate 73 bpm Systolic Blood Pressure 113 mmHg Diastolic Blood Pressure 69 mmHg SpO2 97 % (Modified) 05/01/2025 0:00 EST Hourly Rounding Yes Promise to Return Yes 04/30/2025 23:00 EST Heart Rate Monitored 80 bpm Respiratory Rate Monitored 17 br/min SpO2 96 % 04/30/2025 23:00 EST Systolic Blood Pressure 96 mmHg Diastolic Blood Pressure 59 mmHg Mean Arterial Pressure, Cuff 71 mmHg 04/30/2025 22:30 EST Heart Rate Monitored 80 bpm SpO2 95 % 04/30/2025 22:30 EST Respiratory Rate Monitored 18 br/min Systolic Blood Pressure 99 mmHg Diastolic Blood Pressure 68 mmHg Mean Arterial Pressure, Cuff 78 mmHg 04/30/2025 21:30 EST Heart Rate Monitored 88 bpm SpO2 97 % 04/30/2025 21:30 EST Respiratory Rate Monitored 17 br/min 04/30/2025 21:30 EST Systolic Blood Pressure 107 mmHg Diastolic Blood Pressure 74 mmHg Mean Arterial Pressure, Cuff 85 mmHg 04/30/2025 21:00 EST Heart Rate Monitored 79 bpm Respiratory Rate Monitored 14 br/min 04/30/2025 21:00 EST SpO2 97 % 04/30/2025 21:00 EST Systolic Blood Pressure 118 mmHg Diastolic Blood Pressure 71 mmHg Mean Arterial Pressure, Cuff 87 mmHg Hourly Rounding Yes Promise to Return Yes 04/30/2025 20:42 EST Respiratory Rate Monitored 16 br/min 04/30/2025 20:42 EST Heart Rate Monitored 96 bpm SpO2 97 % 04/30/2025 20:42 EST Systolic Blood Pressure 97 mmHg Diastolic Blood Pressure 78 mmHg 04/30/2025 20:42 EST Mean Arterial Pressure, Cuff 84 mmHg 04/30/2025 20:30 EST Respiratory Rate Monitored 9 br/min 04/30/2025 20:30 EST SpO2 97 % 04/30/2025 20:30 EST Heart Rate Monitored 93 bpm 04/30/2025 20:30 EST Systolic Blood Pressure 89 mmHg Diastolic Blood Pressure 72 mmHg Mean Arterial Pressure, Cuff 78 mmHg 04/30/2025 20:00 EST Heart Rate Monitored 96 bpm 04/30/2025 20:00 EST Respiratory Rate Monitored 11 br/min 04/30/2025 20:00 EST SpO2 95 % 04/30/2025 20:00 EST Systolic Blood Pressure 97 mmHg Diastolic Blood Pressure 79 mmHg Mean Arterial Pressure, Cuff 85 mmHg Hourly Rounding Yes Promise to Return Yes 04/30/2025 19:00 EST Respiratory Rate Monitored 19 br/min 04/30/2025 19:00 EST SpO2 95 % 04/30/2025 19:00 EST Heart Rate Monitored 101 bpm HI 04/30/2025 19:00 EST Systolic Blood Pressure 127 mmHg Diastolic Blood Pressure 88 mmHg Mean Arterial Pressure, Cuff 101 mmHg 04/30/2025 18:34 EST Heart Rate Monitored 88 bpm Respiratory Rate Monitored 51 br/min 04/30/2025 18:34 EST SpO2 96 % 04/30/2025 18:34 EST Systolic Blood Pressure 101 mmHg Diastolic Blood Pressure 71 mmHg 04/30/2025 18:34 EST Mean Arterial Pressure, Cuff 81 mmHg 04/30/2025 18:32 EST Respiratory Rate Monitored 29 br/min SpO2 97 % 04/30/2025 18:32 EST Heart Rate Monitored 105 bpm HI 04/30/2025 18:23 EST Temperature Oral 37.7 DegC HI Peripheral Pulse Rate 100 bpm Respiratory Rate 20 br/min Systolic Blood Pressure 109 mmHg Diastolic Blood Pressure 95 mmHg HI SpO2 96 % Measurements from flowsheet : Measurements 05/01/2025 5:54 EST Weight Measured 55.9 kg 05/01/2025 0:16 EST Height/Length Measured 160.02 cm BSA Measured 1.58 m2 Body Mass Index Measured 21.83 kg/m2 Weight Measured 55.9 kg 04/30/2025 23:29 EST Height/Length Measured 160 cm Body Mass Index Measured 22.3 kg/m2 Weight Measured 57.1 kg 04/30/2025 18:23 EST Height/Length Measured 160 cm Height/Length Dosing 160.0 cm Weight Dosing 57.1 kg Body Mass Index Measured 22.3 kg/m2 Weight Measured 57.1 kg Airway: Mallampati classification: II (soft palate, fauces, uvula visible). Respiratory: Lungs are clear to auscultation, Respirations are non-labored. Cardiovascular: Regular rhythm. Plan [place] [employer] Anesthesiologists (ASA) physical status classification: Class II. Anesthetic Preoperative Plan: Anesthesia General, and -TIVA. Airway Management Nasal Canula. Electronically Signed By: Kendrick Lawrence Jr., DO Date and Time Signed: 05/01/25 13:05 EST Discharge summary * AMANDA POWELL, Ishmaelfo: PERFORM Event Display: Discharge Summary Authored Date: [id number] Admission and Discharge Information Admit Date/Time:04/30/2025 21:38 Admitting Physician - Laisha KENNEDY DO Consulting Physician - Celestina POWELL, Vidya Ramos Admitting Diagnoses: Discharge Order Date Discharge Patient - Ordered?-- 05/03/25 9:01:00 EST, Home Discharge Diagnoses 1.??Sepsis, 05/01/2025 2.??Pneumonia, 05/01/2025 3.??Syncope, 04/30/2025 4.??RLQ abdominal pain, 04/30/2025 5.??Bronchitis, 05/01/2025 6.??Closed head injury, 04/30/2025 7.??Hypokalemia, 05/01/2025 8.??Back pain, 05/02/2025 9.??Bronchiectasis, 05/01/2025 10.??On deep vein thrombosis (DVT) prophylaxis, 05/01/2025 Procedure History Esophagogastroduodenoscopy (05/01/2025), Closed reduction of nasal fracture (12/28/2016), CRNF withstabilization (12/28/2016), EGD (esophagogastroduodenoscopic) electrohydraulic lithotripsy of bezoar in stomach, feeding tube at , right facial reconstruction, TFP - Total fundoplication, Tracheal tube. Hospital Course 34-year-old male with history of bronchiectasis, emphysema, hiatal hernia/esophagitis status post fundoplication??who is currently being treated for acute bronchitis with clarithromycin and prednisone at home presented with complaints of??right lower quadrant abdominal pain, flank pain, shortness of breath, cough, dizziness associated with a fall??with transient loss of consciousness??with transient loss of consciousness, fever.?? He was subsequently admitted to [facility] with??syncope??secondary to dehydration, sepsis secondary to left lobe pneumonia,??fall secondary to??syn cope/dehydration and closed head injury,??he was also admitted with??right lower quadrant abdominalpain with back pain, hypokalemia.?? He was treated with IV fluid, IV meropenem,??as needed pain medications, pantoprazole.?? He was seen in consultation by engine wiper and underwent EGD with biopsies.?? Stock Preparer recommended outpatient follow-up visit for possible colonoscopy.?? Patient's overall condition improved with resolution of the abdominal pain and he was able to tolerate oral feeds well.?? Sepsis also resolved and he was anxious to be discharged home. ??Oxygen was weaned off. ??Oxygen desaturation study was performed and patient did not qualify for home oxygen. ??He was seen prior to discharge and remained in an improved and stable condition for discharge and was subsequently discharged home. ?? Discharge time: 35 minutes. ??I spent 35 minutes in seeing, evaluating, educating patient on his conditions, coordinating care plan, medication reconciliation, speaking with nursing staff, case management and consultants. ?? Discharge medications: Cefdinir 500 mg twice daily DuoNeb??nebulizer treatments 4 times daily as needed. Services Consulted Consult to Gastroenterology - Ordered?-- 05/01/25 0:10:00 EST, abd pain, Consult and Co-manage Physical Exam Vitals & Measurements T:??36.8?C(Oral)?? TMIN:??36.4?C(Oral)?? TMAX:??37.7?C(Oral)?? HR:??86(Monitored)?? RR:??18?? BP:??114/69?? BP:??116/71(Standing)?? BP:??103/61(Supine)?? SpO2:??99%?? WT:??54.6??kg?? General:??alert,??no acute??distress Skin:??warm,??dry Head:??no??trauma,??normocephalic Neck: Trachea??midline,??no??adenopathy,??no??tenderness Eye:??normal??conjunctiva, sclera??clear ENMT: TM's??clear, oral mucosa??moist,??no??pharyngeal erythema or exudate Cardiovascular:??regular??rate and rhythm,??normal??peripheral perfusion Respiratory: Lungs??CTA, respirations??non labored Chest wall:??no??deformity. Gastrointestinal:??soft,??non distended,?no??tenderness,?no??guarding.?? Bowel sounds intact. Back:?Mild??right lumbar tenderness,?Normal?ROM,?Normal?alignment. Extremities:??no??deformity,??no??trauma Neurological: oriented x 4, LOC appropriate for age, CN II-XII intact, motor strength equal & normal bilaterally, sensation equal & normal bilaterally, speech normal Psychiatric:??cooperative, affect??appropriate for age,??normal??judgement,??normal??psychiatric thoughts. Tests Performed Pathology Tissue Exam?-- Results Pending -- CT Abdomen/Pelvis w/ Contrast CT Head or Brain w/o Contrast XR Chest Single View ? Please visit your patient portal for your results or contact your primary care physician. Discharge Plan Patient Discharge Condition Stable Discharge Disposition Discharge To, Anticipated II - Home independently Discharged to - Home independently Transported by, Anticipated - Family Home Discharge Diet Discharge Diet(s): Regular, Drink liquids and eat a light meal (05/02/25 11:05:00) Discharge Medication List Prescriptions Bentyl 10 mg Cap, 10 mg= 1 cap(s), Oral, QID, PRN cefdinir 300 mg Cap, 300 mg= 1 cap(s), Oral, q12hr Dexilant 60 mg oral delayed release capsule, 60 mg= 1 cap(s), Oral, Daily Dexilant 60 mg oral delayed release capsule, 60 mg= 1 cap(s), Oral, Daily, 1 refills DuoNeb 2.5 mg-0.5 mg/3 mL Soln-Inh, 3 mL, Inhalation, QID lidocaine Top 5% film Patch, 1 patch(es), TransDermal, Daily naproxen 500 mg Tab, 500 mg= 1 tab(s), Oral, BID Zofran 4 mg Tab, 4 mg= 1 tab(s), Oral, q6hr,?Not taking Zofran ODT 4 mg Tab-Dis, 4 mg= 1 tab(s), Oral, q8hr, PRN Zofran ODT 4 mg Tab-Dis, 4 mg= 1 tab(s), Oral, q8hr, PRN Zofran ODT 4 mg Tab-Dis, 4 mg= 1 tab(s), Oral, q6hr, PRN,?Not taking Zofran ODT 4 mg Tab-Dis, 4 mg= 1 tab(s), Oral, q8hr, PRN Home albuterol, 2 puff(s), Inhalation, q4hr, PRN clarithromycin, Oral doxycycline predniSONE, Oral, Daily trazodone, Oral,?Not taking Follow-up With When Contact Information REBEKAH BARBOZA 05/05/2025 11:00 AM EST [address] [place] [address]- [phone] Business (1) Additional Instructions: Vidya Oscar Within 2 weeks [address], [address] [phone] Business (1) Additional Instructions: Call for followup appointment Patient Education Community-Acquired Pneumonia, Adult, Iuvt-ql-Bgcd Electronically Signed By: Ishmael PATEL MD Date and Time Signed: 05/03/25 09:03 EST Patient Care team information Care Team Personnel Name: REBEKAH BARBOZA CNP Member Role: Primary Care Physician Address: [address] [place], [place] [address] Telecom: Care Team Related Persons Name: FABRICIO CYR Name: FABIENNE GALVEZ JR Name: JOANA GALVEZ Name: JOANA GALVEZ Insurance Providers Guarantor name: FRANCIS Archibald LENNY Health Plan Information #: 1 Payer: Frederic Payer Identifier: [id number] Member Number: [id number] Group Number: [id number] Subscriber Identifier: [id number] Relationship to Subscriber: self Coverage Type: MEDICARE Coverage Verification Date: 25 Telecom: [phone] Address: [facility] [address] [place] [address] [place] Health Plan Information #: 2 Payer: Medicaid Payer Identifier: [id number] Member Number: [id number] Group Number: [id number] Subscriber Identifier: [id number] Relationship to Subscriber: self Coverage Type: MEDICAID Coverage Verification Date: 25 Telecom: [phone] Address: [address]
[2025-05-11] VITALS (14 sets, daily range): BP systolic 98–121; BP diastolic 57–80; PULSE 98–121; TEMP 36.9; O2SAT 92–96; BMI 22.7
--- OUTSIDE RECORDS SUMMARY | 2025-05-11 10:26 | XMS_ITS | Clinical Summary ---
Author Organization [facility] Address [address] [place] [address] Care Team Providers Care Facilities Engineer Name Role Phone Jay Avalos MD, Christopher [...] increased secretions and SOB. OSH transfer from [facility] where he presented with recurrent fever and SOB. Recent admission 11/13-11/16 for aspiration pneumonia, growing jacome-sensitive pseudomonas, discharged on oral Cipro and inhaled Tobramycin. Per his room mate Haja [phone] the patient never filledhis prescriptions. MICU Summary: 11/30: Admitted to MICU 12/01: Holding transfer to [facility] with borderline respiratory function. Remains on 3 L NC, continuing tocough. Asking us not to update parents on admission, spokesperson is Haja [phone], room mate. No HCPOA. 12/02: Now on [...] Paperwork needs to be completed. ProblemNoted DateDiagnosed DegiQyiekorggzdb85/04/2025Shortness of breath 12/14/2024bnormal CT of the chest12/14/2024Ground glass opacity present on imaging of lung12/14/2024LRTI (lower respiratory tract infection)12/14/2024 Tobacco abuse12/14/2024Tobacco abuse ggjpjtcqsy38/20/2025History of illicit drug use12/14/2024Marijuana abuse12/14/2024MRSA (methicillin resistant staph aureus) culture bnatqfhe42/20/2025History of repair of TEF12/14/2024ute asthma eczeaseuprpu01/20/2025Acute respiratory failure with zcpyruo3612/13/2024 DISPOSITION AND FOLLOW-UP12/01/2016 Overview (12/02/2016): - Stable [...] in there. - Discussed with MICU staff. Uvezbhkbd92/19/4545Pidupq80/22/2017Aperistalsis of gfkgcmhou85/08/2017 Overview (12/02/2016): Congenital TEF s/p repair day [...] Dr. Brennan or Dr. Colbert - HOB [facility] 30 degrees. - Advance diet. Aspiration dvrikovbd77/03/2017 Overview (09/30/2016): S/t chronic diminished esophageal motility [...] treatment Vanc/ zosyn to be started Reflux oyollzzcygf77/03/2017 Overview (06/30/2016): Hafsa Bronchiectasis with (acute) vfqzrcolikjb02/03/2017 Resolved Problems ProblemNoted DateDiagnosed DateResolved DateDiarrhea of presumed infectious fdvlpm60Aspiration pneumonia of both lungs Overview (12/01/2016): Severe [...] his room mate Haja. Abdominal painSevere persistent Overview (09/30/2016): Albuterol q4h wa + q4h prn RT c/s Vest therapy Added symbicort again Tracheoesophageal fistula, kzahwjvqjq36 Overview (07/05/2016): No current TEF per barium swallow H/o clayton fundoplication x2, most recent 15 yrs ago. 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 He has been hospitalized with aspiration 7 times in the past 5 months. He was transferred to [facility] 07/04. GI workup included barium swallow, emptying studies, EGD. Manometry is scheduled outpatient per GI notes. Alcohol abuse, qjoldqslvds92Alcohol-induced acute pancreatitis Immunizations ImmunizationAdministration DatesNext Dueinfluenza (IIV3) vaccine, age 6 mo - 64 yr, trivalent (AFLURIA, FLULAVAL, FLUVIRIN, FLUZONE)03/24/2016pneumococcal conjugate (PCV13) vaccine, 13 valent (PREVNAR 13)03/02/2016pneumococcal polysaccharide (PPV23) vaccine, 23 valent (PNEUMOVAX 23)11/10/2016 Family History Medical HistoryRelationCommentsDiabetesMotherRelationStatusCommentsMother Social History Tobacco UseTypesPacks/DayYears UsedDateSmoking Tobacco: FormerCigarettes0.57 03/12/2009 - 03/12/2016 Tobacco Cessation:Counseling Given: Not Answered Alcohol UseStandard Drinks/WeekCommentsNot Ktyfydixj93 (1 standard drink = 0.6 oz pure alcohol)12 beers per day for 3 yearsAH UtilitiesAnswerDate RecordedIn the past 12 months has the inSelly, gas, oil, or water [employer] threatened to shut off services in your [...] were you homeless or living in a usp (including now)? No12/25/2024rea Deprivation IndexAnswerDate RecordedNational Score (1-100), lower number is lower bris320912/14/2024State Score (1-10), lower number is lower thqh333212/14/2024Data from: https://www.neighborhoodatlas.medicine.[facility].edu/. Last address used for [address]12/14/2024Sex and Gender InformationValueDate RecordedSex Assigned at BirthNot on fileLegal SexMale 06/21/2016 3:13 PM ESTGender IdentityNot on fileSexual OrientationNot on file Last Filed Vital Signs Vital SignReadingTime TakenCommentsBlood Lpxpsxrk793/8408 1:26 PM EDT Snppd344212/31/2024 1:36 PM MKMNwjqukdsdmr10.5 ??C (97.7 ??F)12/31/2024 10:36 AM EDTRespiratory Jseh4114 1:36 PM EDTOxygen Fbefmfetmr47%12/31/2024 1:36 PM EDTInhaled Oxygen Concentration--Abyiyr61.8 kg (123 lb)12/31/2024 10:36 AM ECVTrelvl277.5 cm (5' 2 )12/31/2024 10:36 AM EDTBody Mass Index22.508 10:36 AM EDT Plan of Treatment Health MaintenanceDue DateLast DoneCommentsAnnual PCP Team Chronic Disease Visit 2008nxiety Vgjiaizlr86/03/2009Depression Zctldjkeo33/03/2009Hepatitis C Kvuocuzwc91/03/2009HPV Vaccine (1 - 3-dose SCDM series)2017[facility] Annual Wellness Visit05/28/2024ovid-19 Vaccine ( season) 2025Influenza Vaccine (#1)5106/02/2018, 02/12/2017, 03/24/2016, Additional history existsDTaP,Tdap,Td Vaccine (3 - Td or Tdap)03/31/2034 03/31/2024, 04/14/2022Hepatitis B XlwudiyHbmstseui85/29/2008, 04/26/2007, 03/26/2007HIV CfouzkqosEwumoqfoe94/22/2017 Goals GoalPatient Goal TypeAssociated ProblemsRecent ProgressPatient-Stated?Author Blood Pressure < 140/90 Blood Eensezxq811/84(12/31/2024 1:26 PM EDT)Leila Wheat APRN.HANDKERCHIEF MAKER Procedures Procedure NamePriorityDate/TimeAssociated DiagnosisCommentsHIV 1/2 COMBO WITH REFLEX TO FIMCRHXGDCZAAWZMweirff22/22/2017 10:49 AM EDT from Last 3 Months or Most Recently Relevant to Health Maintenance Results * HIV 1,2 COMBO (AG/AB) (10/16/2016 10:49 AM EDT)ComponentValueRef RangeTest MethodAnalysis TimePerformed AtPathologist SignatureHIV 12 Combo (Ag/Ab)Non ReactiveNon Pikhcpxk13/22/2017 8:58 PM EDTCKETTERING [facility] Comment: (NOTE) HIV Information: ??[place] Rev. Code 3701.243(E): This information has been [...] 11:04 AM EDT Narrative Authorizing ProviderResult TypeResult StatusDhaayush Akhtar MDLABORATORY Final ResultPerforming OrganizationAddressCity/State/ZIP CodePhone Number [facility] [address] [place] [address] from Last 3 Months or Most Recently Relevant to Health Maintenance Insurance Advance Directives * Full Code (Latest Code Status on File) Date ActivatedDate InactivatedComments12/24/2024 8:55 PM/08/2024 8:38 PMQuestion AnswerCommentsFull Code Order Discussed With:* Patient * Full Code Date ActivatedDate InactivatedComments12/13/2024 7:13 PM12/14/2024 8:35 PMQuestion AnswerCommentsFull Code Order Discussed With:* Patient Care Teams Team MemberRelationshipSpecialtyStart DateEnd Date Nando Fuller MD [address] [address] PCP - GeneralPulmonary and Critical Care Medicine12/13/24 Jay Avalos MD Gastroenterology07/27/16
--- OUTSIDE RECORDS SUMMARY | 2025-05-11 10:26 | XMS_ITS | Clinical Summary ---
Author Organization [facility] Address [address] [facility] [place] [address] Phone Care Team Providers Care Automobile Assembly Supervisor Name Role Phone Unavailable Primary Care Provider Unavailabl e Social History Tobacco UseTypesPacks/DayYears UsedDateSmoking Tobacco: Never AssessedSex and Gender InformationValueDate RecordedSex Assigned at BirthNot on fileLegal Sex Male04/22/2022 8:07 AM ESTGender IdentityNot on fileSexual OrientationNot on file Plan of Treatment Not on file
--- OUTSIDE RECORDS SUMMARY | 2025-05-11 10:26 | XMS_ITS | Clinical Summary ---
Author Organization [facility] Address [address] [place] [address] Care Team Providers Care Docking Saw Operator Name Role Phone Neetu Del Toro CHANDRIKA Primary Care Provider [phone] Allergies No known active allergies Medications MedicationSigDispense QuantityRefillsLast FilledStart DateEnd DateStatus albuterol 90 mcg/actuation inhaler INHALE 2 PUFFS INTO THE LUNGS EVERY 6 HOURS NEEDED FOR 90 DAYS07/11/2023 Active traZODone (Desyrel) 50 mg tablet TAKE 1 TABLET BY MOUTH ONCE A DAY AT BEDTIME IQWMTA4509/12/2023ctive escitalopram (Lexapro) 10 mg tablet TAKE 1/2 TAB BY MOUTH DAILY FOR FIRST WEEK,THEN INCREASE TO 1 TABLET BY MOUTH DAILY09/12/2023ctive nebulizer and compressor device 1 Device.09/08/2016Active dexlansoprazole (Dexilant) [address] capsule Take 1 capsule by mouth in the morning.04/03/2023ctive Active Problems ProblemNoted DateDiagnosed DateAcute exacerbation of chronic obstructive pulmonary pzdarff1701/21/2024lcohol use aarvusnb15/26/4842Huljaec78/26/2024 Aspiration into lower respiratory tract01/21/2024cute on chronic respiratory failure with hohauztjl15/26/2024losed head chwolu9001/21/2024oronavirus bjmqyutbz61/26/3264Pqyck53/26/2024History of hlcvssvrjudzxi67/26/2024Influenza A 01/21/2024Moderate persistent asthma, rpoyuscagoenw92/26/2024arainfluenza 01/21/2024olysubstance flnohuwcbd82/26/2024ossible exposure to STD01/21/2024 Tracheo-esophageal hyuzlyo3301/21/2024Viral URI01/21/20246616Ozruzrfoakl74/30/2024 Dyspnea on iezvehoq97/30/2024bnormal EKG009/25/20235983Cfdmcwupvecz36/30/2024Sleep apnea09/25/2023ronchiectasis without ebtweioogcut00/30/2024Tobacco abuse 09/25/2023lcohol abuse09/25/2023peristalsis of dlknyyanv75/08/2017 Overview (01/21/2024): Congenital TEF s/p repair day [...] with Dr. Brennan or Dr. Colbert - [facility] 30 degrees. - Advance diet. Aspiration jqhfmjqaw39/03/2017 Overview (01/21/2024): S/t chronic diminished esophageal motility [...] GrandmotherDeceased Social History Tobacco UseTypesPacks/DayYears UsedDateSmoking Tobacco: FrxfmoLkjlbagbjq623 06/28/2013 - 06/28/2023Smokeless Tobacco: CurrentChewAlcohol UseStandard Drinks/WeekCommentsNever0 (1 standard drink = 0.6 oz pure alcohol)quit 2 weeks agoUT Safety & EnvironmentAnswerDate RecordedFear of Current or Ex-PartnerNot on file09/19/2023Emotionally AbusedNot on file09/19/2023hysically AbusedNot on file09/19/2023Sexually AbusedNot on file09/19/2023hysically or Sexually Abused Not on file09/19/2023Sex and Gender InformationValueDate RecordedSex Assigned at BirthNot on fileLegal SybBxlo4509/19/2023 1:06 PM EDTGender IdentityNot on file Sexual OrientationNot on file Last Filed Vital Signs Vital SignReadingTime TakenCommentsBlood Fstrxnff980/7804 1:42 PM EDT Vrnxo446709/25/2023 1:42 PM EDTTemperature--Respiratory Mces681709/25/2023 1:42 PM EDTOxygen Bzynvkrgtc28%09/25/2023 1:42 PM EDTInhaled Oxygen Concentration-- Ejcszb59.9 kg (118 lb 12.8 oz)09/25/2023 1:42 PM JPRPqpybe854 cm (5' 3 ) 09/25/2023 1:42 PM EDTBody Mass Index21.04009/25/2023 1:42 PM EDT Plan of Treatment Health MaintenanceDue DateLast DoneCommentsMedicare Annual Wellness (AWV) 1990Depression Oltfsnfvk33/03/2003Varicella Vaccines (1 of 2 - 13+ 2-dose series)08/29/2003Hepatitis B Vaccines (1 of 3 - 19+ 3-dose series)2009HPV Vaccines (1 - 3-dose SCDM series)2017COVID-19 Vaccine (1 - 2024- season) 2025Influenza Vaccine (#1)510/Adult Xbafctj9804/14/2032 2Pneumococcal Vaccine: Pediatrics (0 to 5 Years) [...] MemberRelationshipSpecialtyStart DateEnd Date Neetu Del Toro CNP [address] [place] [address], [place] [address] PCP - GeneralFamily Medicine09/24/23
--- OUTSIDE RECORDS SUMMARY | 2025-05-11 10:26 | XMS_ITS | Clinical Summary ---
Author Organization [facility] Address [address] [place] [address] Care Team Providers Care Associate Sales Name Role Phone Unavailable Primary Care Provider Unavailabl e Social History Tobacco UseTypesPacks/DayYears UsedDateSmoking Tobacco: Never AssessedSex and Gender InformationValueDate RecordedSex Assigned at BirthNot on fileLegal Sex Male08/09/2022 6:58 PM EDTGender IdentityNot on fileSexual OrientationNot on file Plan of Treatment Not on file Insurance * Guarantor: Luis Solomoncoronen TypeRelation to PatientDate of BirthPhone Billing AddressPersonal/NbbndwTzkd38/03/1991 [address] [place] [address]
[2025-05-11 10:37] LABS: Hematocrit 48.5 % (42.0-54.0); Hemoglobin 16.4 g/dL (14.0-18.0); Mean Corpuscular HGB Conc 33.8 g/dL (29.9-35.2); Mean Corpuscular Hemoglobin 28.5 pg (25.9-34.0); Mean Corpuscular Volume 84.2 fL (80.0-94.0); Platelet Count 349 10^3/uL (150-450); Red Blood Count 5.76 10^6/uL (4.70-6.10); White Blood Count 14.9 10^3/uL (4.0-11.0)
[2025-05-11] MEDS: 0.9 % SODIUM CHLORIDE 1,000 ML 1000 ML IV ×2 (10:38→12:14)
[2025-05-11] MEDS: FAMOTIDINE/PF 20 MG/2 ML VIAL IV (10:47)
[2025-05-11] MEDS: KETOROLAC TROMETHAMINE 30 MG/ML VIAL IVP (10:47)
--- NOTE | 2025-05-11 10:47 | ED.ABDPAIN1 ---
HPI - Abdominal Pain General Chief Complaint: Abdominal Pain Stated Complaint: ABDOMINAL PAIN, VOMITING Time Seen by Provider: 05/11/25 10:17 Source: patient Mode of arrival: Wheelchair Limitations: no limitations History of Present Illness HPI narrative: The patient presenting to us after he was exposed to his relatives to have flu and COVID, with symptoms of nausea and vomiting and diarrhea for the last few days and he has not been able to keep anything in, although the patient did feel better after the first 24 hours and he did go out and had some alcohol drinks and he thinks he might have pancreatitis because of that. He is complaining of some abdominal pain with nausea and vomiting and diarrhea there is no blood in stool or any blood in vomitus The patient denies any fever or chills or cough or any difficulty breathing Related Data Home Medications ?Medication ?Instructions ?Recorded ?Confirmed trazodone 50 mg tablet 50 mg PO BEDTIME PRN sleep 09/13/23 05/11/25 dexlansoprazole 60 mg 60 mg PO DAILY 04/19/25 05/11/25 capsule,biphase delayed release Previous Rx's ?Medication ?Instructions ?Recorded albuterol sulfate 2.5 mg/3 mL 2.5 mg (3 mL) inhalation Q6H PRN 05/25/23 (0.083 %) solution for nebulization shortness of breath or wheezing #75 mL albuterol sulfate 90 mcg/actuation 1 inh inhalation Q4H PRN shortness 03/22/24 aerosol inhaler of breath or wheezing #8.5 grams doxycycline hyclate 100 mg tablet 100 mg PO BID 7 days #14 tabs 04/09/25 ibuprofen 600 mg tablet 600 mg PO Q8H PRN pain #20 tabs 04/09/25 guaifenesin 600 mg tablet, 600 mg PO BID PRN cough #14 tabs 04/27/25 extended release 12 hr (Mucinex) prednisone 20 mg tablet 40 mg (2 x 20 mg) PO DAILY 5 days 04/27/25 #10 tabs dicyclomine 10 mg capsule 10 mg PO BID PRN abdominal pain #5 05/11/25 caps promethazine 25 mg tablet 25 mg PO TID PRN nausea and 05/11/25 vomiting #20 tabs Allergies Allergy/AdvReac Type Severity Reaction Status Date / Time Penicillins Allergy Intermediate Hives Verified 12/15/25 10:16 Review of Systems ROS Status of ROS 10 or more systems reviewed and unremarkable except as noted in history and below [facility] Medical History (Updated 05/11/25 @ 13:20 by Comfort Stewart MD) Bronchiectasis ?J47.9 - Bronchiectasis, uncomplicated (ICD-10) Healthcare-associated pneumonia ?J18.9 - Pneumonia, unspecified organism (ICD-10) Asthma exacerbation ?J45.901 - Unspecified asthma with (acute) exacerbation (ICD-10) Hypoxemia ?R09.02 - Hypoxemia (ICD-10) Multifocal pneumonia ?J18.9 - Pneumonia, unspecified organism (ICD-10) Respiratory failure ?J96.90 - Respiratory failure, unspecified, unspecified whether with hypoxia or hypercapnia (ICD-10) Constipation ?K59.00 - Constipation, unspecified (ICD-10) Nausea and vomiting ?R11.2 - Nausea with vomiting, unspecified (ICD-10) Tobacco abuse ?Z72.0 - Tobacco use (ICD-10) Acute hypoxic respiratory failure ?J96.01 - Acute respiratory failure with hypoxia (ICD-10) Insomnia ?G47.00 - Insomnia, unspecified (ICD-10) Hypernatremia ?E87.0 - Hyperosmolality and hypernatremia (ICD-10) Right lower lobe pneumonia ?J18.9 - Pneumonia, unspecified organism (ICD-10) Lactic acidosis ?E87.20 - Acidosis, unspecified (ICD-10) Chronic hypoxic respiratory failure, on home oxygen therapy ?J96.11 - Chronic respiratory failure with hypoxia (ICD-10) ?Z99.81 - Dependence on supplemental oxygen (ICD-10) Asthma exacerbation ?J45.901 - Unspecified asthma with (acute) exacerbation (ICD-10) Upper respiratory infection ?J06.9 - Acute upper respiratory infection, unspecified (ICD-10) Esophagitis with gastritis ?K29.70 - Gastritis, unspecified, without bleeding (ICD-10) ?K20.90 - Esophagitis, unspecified without bleeding (ICD-10) Leukocytosis ?D72.829 - Elevated white blood cell count, unspecified (ICD-10) Dyspnea ?R06.00 - Dyspnea, unspecified (ICD-10) Hypoxia ?R09.02 - Hypoxemia (ICD-10) Depression with anxiety ?F41.8 - Other specified anxiety disorders (ICD-10) Steroid-induced hyperglycemia ?R73.9 - Hyperglycemia, unspecified (ICD-10) ?T38.0X5A - Adverse effect of glucocorticoids and synthetic analogues, initial encounter (ICD-10) Hyponatremia ?E87.1 - Hypo-osmolality and hyponatremia (ICD-10) Chest wall pain ?R07.89 - Other chest pain (ICD-10) Pneumonia ?J18.9 - Pneumonia, unspecified organism (ICD-10) Malnutrition of moderate degree ?E44.0 - Moderate protein-calorie malnutrition (ICD-10) Depression ?F32.A - Depression, unspecified (ICD-10) Bronchiectasis ?J47.9 - Bronchiectasis, uncomplicated (ICD-10) Upper respiratory infection ?J06.9 - Acute upper respiratory infection, unspecified (ICD-10) Acute hypokalemia ?E87.6 - Hypokalemia (ICD-10) Avulsion of skin ?T14.8XXA - Other injury of unspecified body region, initial encounter (ICD-10) Influenza ?J11.1 - Influenza due to unidentified influenza virus with other respiratory manifestations (ICD-10) Marijuana abuse ?F12.10 - Cannabis abuse, uncomplicated (ICD-10) Coronavirus infection ?B34.2 - Coronavirus infection, unspecified (ICD-10) Pneumonia ?J18.9 - Pneumonia, unspecified organism (ICD-10) Hospital-acquired bacterial pneumonia ?J15.9 - Unspecified bacterial pneumonia (ICD-10) COVID-19 ?U07.1 - COVID-19 (ICD-10) GERD (gastroesophageal reflux disease) ?K21.9 - Gastro-esophageal reflux disease without esophagitis (ICD-10) 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 - Pyothorax with fistula (ICD-10) Shortness of breath ?R06.02 - Shortness of breath (ICD-10) Chronic dyspnea ?R06.09 - Other forms of dyspnea (ICD-10) Viral infection ?B34.9 - Viral infection, unspecified (ICD-10) Hypoxia ?R09.02 - Hypoxemia (ICD-10) Acute asthma exacerbation ?J45.901 - Unspecified asthma with (acute) exacerbation (ICD-10) Bronchitis ?J40 - Bronchitis, not specified as acute or chronic (ICD-10) History of home oxygen therapy ?Z99.81 - Dependence on supplemental oxygen (ICD-10) Oxygen desaturation during sleep ?G47.34 - 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) History of gastrostomy tube placement Abdominal pain, acute ?R10.9 - Unspecified abdominal pain (ICD-10) Surgical History History of fundoplication ?Z98.890 - Other specified postprocedural states (ICD-10) History of appendectomy ?Z90.49 - Acquired absence of other specified parts of digestive tract (ICD-10) H/O chest tube placement ?Z98.890 - Other specified postprocedural states (ICD-10) History of facial surgery ?Z98.890 - Other specified postprocedural states (ICD-10) Family History Mother Family history of diabetes mellitus Family history of hypertension Grandmother Family history of diabetes mellitus Grandfather Family history of myocardial infarction Social History Within the past year, how often did you have a drink containing alcohol: monthly or less Within the past year, how many standard drinks containing alcohol did you have on a typical day: 1 or 2 Within the past year, how often did you have six or more drinks on one occasion: less than monthly Total score: 1 Score interpretation: A score less than 4 is consistent with normal alcohol consumption. 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 [employer] Known occupational exposures/hazards: No Highest level of school completed/degree received: high school graduate Are you now , , , , never or living with a partner: In a typical week, how many times do you talk on the telephone with family, friends, or neighbors: 3 or more times per week How often do you get together with friends or relatives: once per week How often do you attend sabianism or mosque services: never Do you belong to any clubs or organizations such as sabianism groups unions, [employer] or athletic groups, or school groups: no Total score: 1 Score interpretation: A score of less than or equal to 1 indicates the most socially isolated. Little interest or pleasure in doing things: not at all Feeling down, depressed, or hopeless: not at all Feel stressed/tense/nervous/anxious/difficulty sleeping: not at all Do you think of yourself as: straight/heterosexual Gender Identity: male Exam Narrative Exam Narrative: Nurses notes and vital signs reviewed and patient is not hypoxic. General: Well-appearing and in no apparent distress. Skin: Warm, dry, no pallor noted. No rash. Head: Normocephalic, atraumatic. Neck: Supple, non-tender. Cardiovascular: Regular Rate and Rhythm without murmur, gallop or rub. Respiratory: No accessory muscle use or respiratory distress. Lungs are clear to auscultation, no wheezing, rales or rhonchi Chest Wall: no tenderness Back: No midline thoracic or lumbar vertebral tenderness. No CVA tenderness Musculoskeletal: normal ROM, no calf or popliteal tenderness, no lower extremity edema/swelling GI: Abdomen is soft, non-distended. Normal bowel sounds. No masses appreciated. No tenderness to palpation. No rebound, guarding, or rigidity noted. Neurological: A&O x4. No cranial nerve dysfunction observed. No truncal ataxia. Moves all extremities. Sensation intact. Psychiatric: Cooperative and interactive. Normal mood and affect. Constitutional Vital Signs, click to edit/add: Last Vital Signs Temp 98.5 F 05/11/25 10:06 Pulse 98 H 05/11/25 13:32 Resp 21 H 05/11/25 13:32 BP 121/80 05/11/25 13:00 Pulse Ox 96 05/11/25 13:32 O2 Del Method Room Air 05/11/25 13:32 Course Vital Signs Vital signs: Vital Signs Temperature 98.5 F 05/11/25 10:06 Pulse Rate 121 H 05/11/25 10:06 Respiratory Rate 18 05/11/25 10:06 Blood Pressure 98/73 05/11/25 10:06 Pulse Oximetry 96 05/11/25 10:06 Oxygen Delivery Method Room Air 05/11/25 10:06 Temperature 98.5 F 05/11/25 10:06 Pulse Rate 98 H 05/11/25 13:32 Respiratory Rate 21 H 05/11/25 13:32 Blood Pressure 121/80 05/11/25 13:00 Pulse Oximetry 96 05/11/25 13:32 Oxygen Delivery Method Room Air 05/11/25 13:32 MDM - Abdominal Pain MDM Narrative Medical decision making narrative: The patient abdomen examination was benign but he have a history of small bowel obstruction concern in the last few months Right now the patient had an x-ray of the abdomen that showed no acute pathology CBC and chemistry showed mild leukocytosis which could be reactive as there is no source of infection at the moment The patient had no elevation in the lipase and chemistry otherwise showed no acute pathology The patient feeling better after initially being treated with IV fluid in addition to Bentyl and Toradol and Zofran and Compazine The patient was discharged home with supportive care of hydration as well as Phenergan and Pepcid With instruction to come back to the ER in case of any new symptoms The patient to follow-up with the primary care within 2 to 3 days and to come back to the ER in case of any worsening of the current symptoms or any new symptoms or concerns Lab Data Labs: Lab Results 05/11/25 05/11/25 Range/Units 10:28 12:15 WBC 14.9 H (4.0-11.0) 10^3/uL RBC 5.76 (4.70-6.10) 10^6/uL Hgb 16.4 (14.0-18.0) g/dL Hct 48.5 (42.0-54.0) % MCV 84.2 (80.0-94.0) fL MCH 28.5 (25.9-34.0) pg MCHC 33.8 (29.9-35.2) g/dL RDW 13.0 (11.0-15.0) % Plt Count 349 (150-450) 10^3/uL MPV 10.9 (9.5-13.5) fL Seg Neuts % (Manual) 97.0 H (43.0-75.0) Lymphocytes % (Manual) 1.0 L (20.5-60.0) % Monocytes % (Manual) 2.0 (1.7-12.0) % Eosinophils % (Manual) 0.0 L (0.9-7.0) % Basophils % (Manual) 0.0 L (0.2-2.0) % Neutrophils # (Manual) 14.45 H (1.4-6.5) 10^3/uL Lymphocytes # (Manual) 0.14 L (1.20-3.80) 10^3/uL Monocytes # (Manual) 0.29 L (0.30-0.80) 10^3/uL Eosinophils # (Manual) 0.00 (0.00-0.70) 10^3/uL Basophils # (Manual) 0.00 (0.00-0.10) 10^3/uL Sodium 139 (136-145) mmol/L Potassium 4.2 (3.5-5.1) mmol/L Chloride 104 (98-107) mmol/L Carbon Dioxide 24.8 (21.0-32.0) mmol/L Anion Gap 14.4 BUN 13.0 (7.0-18.0) mg/dL Creatinine 1.01 (0.70-1.30) mg/dL Est GFR ( Amer) >60 (>=60 mL/min/1.73m^2) Est GFR (Non-Af Amer) >60 (>=60 mL/min/1.73m^2) BUN/Creatinine Ratio 12.9 Glucose 132 H (74-106) mg/dL Lactate 1.2 (0.4-2.0) mmol/L Calcium 8.8 (8.5-10.1) mg/dL Total Bilirubin 1.2 H (0.2-1.0) mg/dL AST 23 (15-37) U/L ALT 18 (16-63) U/L Alkaline Phosphatase 115 (46-116) U/L Total Protein 7.5 (6.4-8.2) g/dL Albumin 3.8 (3.4-5.0) g/dL Globulin 3.7 g/dL Albumin/Globulin Ratio 1.0 Lipase 21.0 (16.0-77.0) U/L Urine Color Yellow (YELLOW) Urine Clarity Clear (CLEAR) Urine pH 5.5 (5.0-9.0) Ur Specific Petty >=1.030 A (1.005-1.025) Urine Protein Negative (NEG/TRACE) mg/dL Urine Glucose (UA) Negative (NEGATIVE) mg/dL Urine Ketones Negative (NEGATIVE) mg/dL Urine Occult Blood Negative (NEGATIVE) Urine Nitrite Negative (NEGATIVE) Urine Bilirubin Negative (NEGATIVE) Urine Urobilinogen 0.2 (0.2-1.0) EU/dL Ur Leukocyte Esterase Negative (NEGATIVE) Ethanol Quant <3 mg/dL Influenza Type A Ag Negative Influenza Type B Ag Negative SARS-CoV-2 Ag (CV2AG) Negative (NEGATIVE) Discharge Plan Discharge Chief Complaint: Abdominal Pain Clinical Impression: Gastroenteritis Patient Disposition: Home, Self-Care Time of Disposition Decision: 13:20 Condition: Good Prescriptions / Home Meds: New promethazine 25 mg tablet 25 mg PO TID PRN (Reason: nausea and vomiting) Qty: 20 0RF dicyclomine 10 mg capsule 10 mg PO BID PRN (Reason: abdominal pain) Qty: 5 0RF No Action trazodone 50 mg tablet 50 mg PO BEDTIME PRN (Reason: sleep) albuterol sulfate 90 mcg/actuation HFA aerosol inhaler 1 inh inhalation Q4H PRN (Reason: shortness of breath or wheezing) Qty: 8.5 0RF ibuprofen 600 mg tablet 600 mg PO Q8H PRN (Reason: pain) Qty: 20 0RF doxycycline hyclate 100 mg tablet 100 mg PO BID 7 Days Qty: 14 0RF prednisone 20 mg tablet 40 mg PO DAILY 5 Days Qty: 10 0RF guaifenesin [Mucinex] 600 mg tablet extended release 12hr 600 mg PO BID PRN (Reason: cough) Qty: 14 0RF albuterol sulfate 2.5 mg /3 mL (0.083 %) solution for nebulization 2.5 mg inhalation Q6H PRN (Reason: shortness of breath or wheezing) Qty: 75 0RF dexlansoprazole 60 mg capsule,biphase delayed releas 60 mg PO DAILY Print Language: Indonesian Instructions: Gastroenteritis (DC), Acute Nausea and Vomiting (DC) Referrals: REBEKAH BARBOZA [Primary Care Provider, Family Practice] - 1 week Discharge Date/Time: 05/11/25 13:35
[2025-05-11 10:55] LABS: Alanine Aminotransferase 18 U/L (16-63); Albumin Globulin Ratio 1.0; Albumin Level 3.8 g/dL (3.4-5.0); Alkaline Phosphatase 115 U/L (46-116); Anion Gap 14.4; Aspartate Amino Transferase 23 U/L (15-37); Blood Urea Nitrogen 13.0 mg/dL (7.0-18.0); Calcium 8.8 mg/dL (8.5-10.1); Carbon Dioxide 24.8 mmol/L (21.0-32.0); Chloride 104 mmol/L (98-107); Estimated GFR (African America >60 (>=60 mL/min/1.73m^2); Estimated GFR (Non-African Ame >60 (>=60 mL/min/1.73m^2); Globulin 3.7 g/dL; Glucose 132 mg/dL (74-106); Potassium 4.2 mmol/L (3.5-5.1); Sodium 139 mmol/L (136-145); Total Protein 7.5 g/dL (6.4-8.2)
[2025-05-11 10:58] LABS: SARS-CoV-2 Ag NEGATIVE (NEGATIVE)
[2025-05-11 11:03] LABS: Lipase 21.0 U/L (16.0-77.0)
[2025-05-11 11:05] LABS: Basophils Abs Manual 0.00 10^3/uL (0.00-0.10); Basophils Percent Manual 0.0 % (0.2-2.0); Eosinophils Absolute Manual 0.00 10^3/uL (0.00-0.70); Eosinophils Percent Manual 0.0 % (0.9-7.0); Lymphocytes Absolute Manual 0.14 10^3/uL (1.20-3.80); Lymphocytes Percent Manual 1.0 % (20.5-60.0); Monocytes Absolute Manual 0.29 10^3/uL (0.30-0.80); Monocytes Percent Manual 2.0 % (1.7-12.0); Segmented Neut Absolute Manual 14.45 10^3/uL (1.4-6.5); Segmented Neutrophils % Manual 97.0 (43.0-75.0)
[2025-05-11 11:09] LABS: Lactate/Lactic Acid 1.2 mmol/L (0.4-2.0)
--- NOTE | 2025-05-11 12:02 | XR_ITS ---
[facility] [place] [id number] Patient Name: FRANCIS GALVEZ MRN: [id number] date: 1990 Sex: M Assigned Patient Location: ER Current Patient Location: ER Accession/Order Number: [id number] Exam Date: 05/11/2025 12:23 Report Date: 05/11/2025 12:37 At the request of: KYLIE COSTA MD Procedure: XR abdomen 1V SINGLE VIEW ABDOMEN COMPARISON: CT 04/19/2025 CLINICAL DATA: Abdominal pain on the right for the past month vomiting, diarrhea and fever for the past couple days. Supine views of the abdomen and pelvis were obtained. There is air along the colon. There is mild left-sided colonic stool. No dilated small bowel loops are identified. No soft tissue masses or suspect renal calculi are seen. The bony structures are intact. Subtle dextroscoliotic curvature is present. XR/XR abdomen 1V IMPRESSION: NO ACUTE PLAIN FILM FINDINGS. Impression dictated by: Amy Coats M.D. 05/11/2025 12:37 PM Dictation Location: [place] [id number] Electronically authenticated by: [id number] Y Date: 05/11/2025 12:37
[2025-05-11] MEDS: DICYCLOMINE HCL 20 MG/2 ML VIAL IM (12:14)
[2025-05-11] MEDS: PROCHLORPERAZINE 10 MG/2 ML VIAL IV (12:14)
[2025-05-11 12:33] LABS: Glucose Urine UA NEGATIVE (NEGATIVE)
== END 2025-05-11 13:35 | disposition home or self-care (01) ==
PROVIDERS: Emergency Provider Emergency Medicine; PCP Nurse Practitioner Family
DX: K52.9 Noninfective gastroenteritis and colitis, unspecified (principal); Z87.891 Personal history of nicotine dependence
CPT/HCPCS: 36415; 74018; 80053; 80320; 81003; 83605; 83690; 85007; 85027; 87804; 87811; 96361; 96372; 96374; 96375; 99284; J0500; J0780; J1885; J2405; J3490